=== PATIENT | male | born 1985 | race African-American/Black ===

== ENCOUNTER 2016-11-10 09:55 | Day surgery (SDC) | payer OTHER ==
[~2016-11-10] VITALS: Ht 177.8 cm; Wt 80.0 kg
[~2016-11-10 09:55] MED LIST: ALBU.5I NEB; ALBU0.08 NEB; APIX5TAB GT; BACL20TA GT; FAMO1TAB73 GT; FLEE5TAB GT; JEVILIQ12 GT; KEPP10002 GT; LEVS0.124 SL; LORA-392 GT; METO-309 PO; OXYC1TAB63 GT; POTA-163 GT; [UNRECOGNIZED DRUG - OTHER] G-TUBE
[2016-11-10] MEDS ORDERED: SODIUM CHLORIDE 0.9% 1000 ML IV SCH (10:00)
[2016-11-10 10:27] VITALS: BP 116/66; PULSE 45; RESP 16; TEMP 98.7; O2SAT 98
[2016-11-10] MEDS ORDERED: ceFAZolin 2 GM PREMIX 50 ML - gastrostomy and jejunostomy initial insertion IV SCH (10:30)
[2016-11-10] MEDS ORDERED: LORA-392 IM (10:38)
[2016-11-10] MEDS ORDERED: BISA10SU3 RECTAL (10:38)
--- NOTE | 2016-11-10 11:52 | PD.RAD ---
Post Procedure Progress Note Procedure Date: Nov 10, 2016 Supervising Radiologist: Lupillo Gardner Plan of Activity See PACS Report for procedural detail/treatment Feeding Tube Gastro/Jejunostomy Replacement Georgian: 22 Lupillo Gardner MD Nov 10, 2016 11:52
[2016-11-10 12:00] VITALS: BP 110/58; PULSE 55; RESP 16; TEMP 98.4; O2SAT 98
[2016-11-10 12:15] VITALS: BP 106/68; PULSE 50; RESP 18; O2SAT 97
[2016-11-10] MEDS ORDERED: IOHEXOL 350 MG/ML 50 ML BTL (for RAD DIAG) ONE (12:33)
[2016-11-10 12:40] VITALS: BP 103/57; PULSE 49; RESP 18; O2SAT 98
--- NOTE | 2016-11-10 13:53 | RADRPT ---
EXAM DATE/TIME: 11/10/2016 11:34 [facility] COMPARISON: CHANGE OF GJ-TUBE CATHETER, September 08, 2016, 12:33. INDICATIONS : Patient with history of an anoxic brain injury in need of gastrojejunostomy tube exchange. MEDICAL HISTORY : History of anoxic encephalopathy and brain injury, cardiac carrest, aspiration pneumonia, UTI, sepsis , LUE DVT. SURGICAL HISTORY : History of tracheostomy tube, transgastric feeding tube placement. ENCOUNTER: Subsequent ACUITY: >1 year PAIN SCORE: 0/10 FLUORO TIME: minutes CONTRAST: 30 cc Omnipaque (iohexol) 350 DEVICE(S): 1.) 22 Mauritian Transgastric tube PROCEDURE : 1. Fluoroscopically guided gastrojejunostomy tube exchange. 2. Conscious sedation with continuous EKG and oximetry monitoring. The risks, benefits and alternatives to the procedure were explained and verbal and written consent w as obtained. The site was prepped in sterile fashion. Full sterile technique was used, including ca p, mask, sterile gloves and gown and a large sterile sheet. Hand hygiene and 2% chlorhexidine and/or betadine/alcohol prep was utilized per protocol for cutaneous antisepsis. The skin and subcutaneous tissues were infiltrated with local anesthetic solution. With fluoroscopic guidance a guidewire was passed through the previous gastrojejunostomy tube and a f resh tube was placed over the guidewire. The balloon was inflated with appropriate volume of saline. Injection of positive contrast demonstrates good position of the gastric and jejunal lumens of the tube. Conscious sedation was performed with the prescribed dosages and duration as above. The patient leslie ated the procedure well and there were no complications. EKG and oximetry remained stable throughout the procedure. The patient was sent to post anesthesia recovery in stable condition. CONCLUSION: Uncomplicated gastrojejunostomy tube exchange as above. Lupillo Gardner MD on November 10, 2016 at 13:51 Board Certified Radiologist. This report was verified electronically.
== END 2016-11-10 12:45 | disposition short-term general hospital (02) ==
LOC: HRAD 09:55 → HRIP 10:09 → HRAD 12:45
PROVIDERS: ATTEND Family Medicine
DX: T85.518A Breakdown (mechanical) of other gastrointestinal prosthetic devices, implants and grafts, initial encounter (principal); Z87.820 Personal history of traumatic brain injury; Z86.718 Personal history of other venous thrombosis and embolism
CPT/HCPCS: 49452; C1769; C1874; C1887; Q9967

== ENCOUNTER 2017-11-30 08:07 | Inpatient (IN) | payer OTHER ==
[~2017-11-30] VITALS: Ht 157.5 cm; Wt 72.9 kg
[2017-11-30] VITALS (20 sets, daily range): BP systolic 119–198; BP diastolic 59–97; PULSE 84–176; RESP 8–38; TEMP 99–102.2; O2SAT 89–100
[~2017-11-30 08:07] MED LIST changes: +AMLO10 PO; +APIX5TAB PO; +ATRO1SOL11 SL; +BACL20TA G-TUBE; +BISA10SU3 RECTAL; +CLAR5SYP2 G-TUBE; +FAMO20TA2 PO; +FLEE5TAB PO; +HYDR-3801 PO; +HYOS1TAB9 PO; +IPRASOL INH; +KEPP10002 PO; +LEVS0.124 G-TUBE; -LEVS0.124 SL; +LORA-392 IM; +LORA-392 PO; +LORA-474 G-TUBE; +OXYC-392 PO; +PHEN125S PO; +POTA10SO12 PO; +RANI150T PO; +TYLE325T PO
[2017-11-30] MEDS ORDERED: VANCOMYCIN 1 GM/200 ML INJ 200 ML IV ONE (08:15)
[2017-11-30] MEDS ORDERED: SODIUM CHLOR 0.9% 1000 ML INJ 1,000 ML IV ONE ×2 (08:15)
[2017-11-30] MEDS ORDERED: PIPERACIL-TAZO 4.5 GM PREMIX 100 ML IV ONE (08:15)
[2017-11-30] MEDS ORDERED: ACETAMINOPHEN 650 MG SUPP RECTAL ONE (08:15)
--- NOTE | 2017-11-30 08:17 | PD ---
HPI Chief Complaint: tachycardia and diaphoresis fever Time Seen by Provider: 08:09 Travel History International Travel<30 days: No Contact w/Intl Traveler<30days: No History of Present Illness HPI Patient known to me from previous visit, 32-year-old male with a history of anoxic brain injury, a phasic at baseline, bedbound presents emergency Department with sudden onset of tachycardia tachypnea fever this morning. Noted to be significantly diaphoretic by EMS, he is trach and PEG dependent, according to EMS group home stated he was just fine last night. Ms. Bourne the hospital this morning, no decreased saturations. Further history is significantly limited given the patient's aphasia. PFSH Past Medical History Asthma: No Autoimmune Disease: No Anxiety: Yes Heart Rhythm Problems: No Cancer: No Cardiovascular Problems: Yes (Cardiac arrest) High Cholesterol: Yes Chemotherapy: No Chest Pain: No Congestive Heart Failure: No COPD: No Diabetes: No Diminished Hearing: No Endocrine: No Gastrointestinal Disorders: Yes (GASTROSTOMY, PSEUDOCYST OF PANCREAS) Genitourinary: No Hypertension: Yes Immune Disorder: No Implanted Vascular Access Dvce: No Musculoskeletal: Yes (Rigid upper and lower extremities) Neurologic: Yes (anoxic brain injury) Psychiatric: Yes (ANXIETY DISORDER) Reproductive: No Respiratory: Yes (trach) Immunizations Current: No Migraines: No Myocardial Infarction: Yes Pancreatitis: Yes Radiation Therapy: No Seizures: Yes Sleep Apnea: No Thyroid Disease: No Past Surgical History Abdominal Surgery: Yes (Peg Tube placement) Cardiac Surgery: No Ear Surgery: No Endocrine Surgery: No Eye Surgery: No Genitourinary Surgery: No Gynecologic Surgery: No Neurologic Surgery: No Oral Surgery: No Thoracic Surgery: Yes (trach ) Other Surgery: Yes (TRACHEOSTOMY) Social History Alcohol Use: No Tobacco Use: No Substance Use: No Allergies-Medications (Allergen,Severity, Reaction): Coded Allergies: *MDRO Multi-Drug Resistant Organism (Verified Adverse Reaction, Unknown, ) MRSA (sputum) - 04/25/16 & 05/23/16 MRSA PCR Screen POSITIVE - 04/25/2016 ESBL+E.Coli (blood-05/22/16) Reported Meds & Prescriptions Reported Meds & Active Scripts Active [Water, Free] 1 ML Flush 250 Ml G-TUBE Q6H Reported Norvasc (Amlodipine Besylate) 10 Mg Tab 10 Mg G-TUBE DAILY Hydralazine (Hydralazine HCl) 100 Mg Tab 50 Mg G-TUBE Q8HR Take with meals Claritin (Loratadine) 10 Mg Cap 10 Mg G-TUBE DAILY Phenytoin Liq (Phenytoin) 125 Mg/5 Ml Jessica 200 Mg PO Q12HR Pepcid (Famotidine) 20 Mg Tab 20 Mg G-TUBE BID Oxycodone (Oxycodone HCl) 5 Mg Cap 5 Mg PO Q6H PRN Ativan (Lorazepam) 0.5 Mg Tab 1 Mg IM Q6HR PRN Lopressor (Metoprolol Tartrate) 50 Mg Tab 50 Mg PO BID Albuterol Neb (Albuterol Sulfate) 2.5 Mg/0.5 Ml Neb 2.5 Mg NEB ONCE Note: The Albuterol Sulfate Inhalation Solution is concentrated and must be diluted. Read complete instructions carefully before using. Potassium Chloride ER (Potassium Chloride) 20 Meq Tab 20 Meq GT BID Levsin-SL (Hyoscyamine Sulfate) 0.125 Mg Subl 0.125 Mg G-TUBE BID Keppra (Levetiracetam) 1,000 Mg Tab 1,000 Mg GT BID Eliquis (Apixaban) 5 Mg Tab 5 Mg GT BID Baclofen 20 Mg Tab 20 Mg GT TID Review of Systems ROS Limitations: Altered Mental Status Physical Exam Exam Limitations: Altered Mental Status Narrative GENERAL: Well-developed well-nourished male with atrophy of both lower extremities, tonic contractures of bilateral upper extremities at times. A phasic at baseline. Has had some emesis in the emergency department. Nonbilious and nonbloody. He has a toxic appearance. SKIN: Focused skin assessment hot and extremely diaphoretic. HEAD: Atraumatic. Normocephalic. EYES: Pupils equal and round. No scleral icterus. No injection or drainage. ENT: No nasal bleeding or discharge. Mucous membranes pink and moist. Tracheostomy site clean dry and intact, NECK: Trachea midline. No JVD. CARDIOVASCULAR: Very tachycardic especially when lying flat, is better when the patient has had of bed elevated. No murmur appreciated. RESPIRATORY: Tachypneic, bibasilar rales and rhonchi but difficult auscultation secondary to radiation of upper airway sounds. GASTROINTESTINAL: Abdomen soft, non-tender, nondistended. Hepatic and splenic margins not palpable. G-tube in place with no bleeding. MUSCULOSKELETAL: No obvious deformities. No clubbing. No cyanosis. No edema. NEUROLOGICAL: Awake, a phasic, does not follow commands eyes are open at baseline. Data Data Last Documented VS Vital Signs Date Time Temp Pulse Resp B/P (MAP) Pulse Ox O2 Delivery O2 Flow Rate FiO2 11/30/17 10:33 100.4 121 28 151/67 (95) 99 T-piece 10.00 50 Orders Orders Sepsis Workup Initiated (11/30/17 ) Electrocardiogram (11/30/17 08:09) Complete Blood Count With Diff (11/30/17 08:09) Comprehensive Metabolic Panel (11/30/17 08:09) Prothrombin Time / Inr (Pt) (11/30/17 08:09) Act Partial Throm Time (Ptt) (11/30/17 08:09) Lactic Acid Sepsis Protocol (11/30/17 08:09) Magnesium (Mg) (11/30/17 08:09) Phosphorus (Po4) (11/30/17 08:09) Lipase (11/30/17 08:09) Ckmb (Isoenzyme) Profile (11/30/17 08:09) Troponin I (11/30/17 08:09) Urinalysis - C+S If Indicated (11/30/17 08:09) Blood Culture (11/30/17 08:09) Chest, Single Ap (11/30/17 08:09) Blood Glucose (11/30/17 08:09) Ecg Monitoring (11/30/17 08:09) Iv Access Insert/Monitor (11/30/17 08:09) Oximetry (11/30/17 08:09) Oxygen Administration (11/30/17 08:09) Acetaminophen Supp (Tylenol Supp) (11/30/17 08:15) Sodium Chlor 0.9% 1000 Ml Inj (Ns 1000 M (11/30/17 08:15) Sodium Chlor 0.9% 1000 Ml Inj (Ns 1000 M (11/30/17 08:15) Vancomycin Inj (Vancomycin Inj) (11/30/17 08:15) Piperacil-Tazo 4.5 Gm Premix (Zosyn 4.5 (11/30/17 08:15) Insert Temp Sensing Tello Cath (11/30/17 08:11) Resp Blood Gas Venous (11/30/17 ) Blood Gas Venous (Vbg) (11/30/17 08:47) CKMB (11/30/17 08:21) CKMB% (11/30/17 08:21) Insert Temp Sensing Tello Cath (11/30/17 09:24) Urinary Catheter Management BAILEY.Q8H (11/30/17 09:24) Ibuprofen Liq (Motrin Liq) (11/30/17 10:15) Ondansetron Inj (Zofran Inj) (11/30/17 10:15) Thyroid Stimulating Hormone (11/30/17 10:18) Admit Order (Ed Use Only) (11/30/17 ) Labs Laboratory Tests Test 11/30/17 08:21 11/30/17 08:47 11/30/17 10:00 White Blood Count 13.9 TH/MM3 Red Blood Count 5.44 MIL/MM3 Hemoglobin 16.9 GM/DL Hematocrit 50.3 % Mean Corpuscular Volume 92.4 FL Mean Corpuscular Hemoglobin 31.0 PG Mean Corpuscular Hemoglobin Concent 33.6 % Red Cell Distribution Width 14.3 % Platelet Count 406 TH/MM3 Mean Platelet Volume 8.5 FL Neutrophils (%) (Auto) 68.1 % Lymphocytes (%) (Auto) 22.8 % Monocytes (%) (Auto) 8.5 % Eosinophils (%) (Auto) 0.2 % Basophils (%) (Auto) 0.4 % Neutrophils # (Auto) 9.4 TH/MM3 Lymphocytes # (Auto) 3.2 TH/MM3 Monocytes # (Auto) 1.2 TH/MM3 Eosinophils # (Auto) 0.0 TH/MM3 Basophils # (Auto) 0.1 TH/MM3 CBC Comment DIFF FINAL Differential Comment Prothrombin Time 10.8 SEC Prothromb Time International Ratio 1.1 RATIO Activated Partial Thromboplast Time 20.9 SEC Blood Urea Nitrogen 14 MG/DL Creatinine 1.37 MG/DL Random Glucose 176 MG/DL Total Protein 9.1 GM/DL Albumin 4.2 GM/DL Calcium Level 9.8 MG/DL Phosphorus Level 3.2 MG/DL Magnesium Level 2.4 MG/DL Alkaline Phosphatase 174 U/L Aspartate Amino Transf (AST/SGOT) 38 U/L Alanine Aminotransferase (ALT/SGPT) 58 U/L Total Bilirubin 0.3 MG/DL Sodium Level 137 MEQ/L Potassium Level 5.1 MEQ/L Chloride Level 101 MEQ/L Carbon Dioxide Level 24.9 MEQ/L Anion Gap 11 MEQ/L Estimat Glomerular Filtration Rate 74 ML/MIN Lactic Acid Level 10.6 mmol/L Total Creatine Kinase 296 U/L Creatine Kinase MB 4.3 NG/ML Troponin I LESS THAN 0.02 NG/ML Lipase 133 U/L Thyroid Stimulating Hormone 3rd Gen 2.350 uIU/ML Blood Gas Puncture Site LINE Blood Gas Patient Temperature 98.6 Venous Blood pH 7.34 Venous Blood Partial Pressure CO2 39 mmHg Venous Blood Partial Pressure O2 35 mmHg Venous Blood HCO3 21 mmol/L Venous Blood Oxygen Saturation 61 % Venous Blood Oxygen Content 14.7 Vol % Venous Blood Base Excess -4.0 mmol/L Oxygen Delivery Device T-PIECE Blood Gas Inspired Oxygen 50 % Urine Color YELLOW Urine Turbidity HAZY Urine pH 6.0 Urine Specific Hamer 1.032 Urine Protein 30 mg/dL Urine Glucose (UA) NEG mg/dL Urine Ketones 10 mg/dL Urine Occult Blood NEG Urine Nitrite NEG Urine Bilirubin NEG Urine Urobilinogen 2.0 MG/DL Urine Leukocyte Esterase NEG Urine RBC LESS THAN 1 /hpf Urine WBC 4 /hpf Urine Squamous Epithelial Cells <1 /hpf Urine Mucus FEW /lpf Microscopic Urinalysis Comment CATH-CULT NOT IND MDM Medical Decision Making Medical Screen Exam Complete: Yes Emergency Medical Condition: Yes Differential Diagnosis Sirs, sepsis, pneumonia, UTI, autonomic dysfunction Narrative Course Patient roomed in the ER, has no cause of fever isolated, may be autonomic dysregulation. Treated as septic, vanc and zosyn. 3L NS bolus. Significant only elevated lactic acid. Central line. Discussed with mother by telephone she is grateful and agreeable for admission. Discussed with Dr. Maya for admission. Overall improving significantly after fluid resuscitation. Critical Care Narrative Aggregate critical care time was 35 minutes. Time to perform other separately billable procedures was not included in the critical care time. My time did not include minutes spent treating any other patients simultaneously or on activities that did not directly contribute to the patient's treatment. The services I provided to this patient were to treat and/or prevent clinically significant deterioration that could result in: [, disability, organ failure I provided critical care services requiring my management, as noted below: Chart data review, documentation time, medication orders and management, vital sign assessments/reviewing monitor data, ordering and reviewing lab tests, ordering and interpreting/reviewing x-rays and diagnostic studies, care of the patient and discussion of the patient with the admitting physicians. Diagnosis Primary Impression: SIRS (systemic inflammatory response syndrome) Additional Impression: Lactic acidosis Admitting Information Admitting Physician Requests: Admit Condition: Serious Yuri Howe MD Nov 30, 2017 08:17
[2017-11-30 09:04] LABS: AUTOMATED NEUTROPHIL # 9.4 TH/MM3 (1.8-7.7); BASOPHIL # 0.1 TH/MM3 (0-0.2); BASOPHIL % 0.4 % (0.0-2.0); EOSINOPHIL % 0.2 % (0.0-4.0); HEMATOCRIT 50.3 % (39.0-51.0); HEMOGLOBIN 16.9 GM/DL (13.0-17.0); LYMPH % 22.8 % (9.0-44.0); LYMPHOCYTE # 3.2 TH/MM3 (1.0-4.8); MEAN CELL VOLUME 92.4 FL (80.0-100.0); MEAN CORPUSCULAR HGB CONC 33.6 % (32.0-36.0); MEAN PLATELET VOLUME 8.5 FL (7.0-11.0); MONO % 8.5 % (0.0-8.0); MONOCYTE # 1.2 TH/MM3 (0-0.9); NEUT % 68.1 % (16.0-70.0); PLATELET COUNT 406 TH/MM3 (150-450); RED BLOOD COUNT 5.44 MIL/MM3 (4.50-5.90); RED CELL DISTRIBUTION WIDTH 14.3 % (11.6-17.2); WHITE BLOOD COUNT 13.9 TH/MM3 (4.0-11.0)
[2017-11-30 09:05] LABS: INTERNATIONAL NORMALIZED RATIO 1.1 RATIO; PROTHROMBIN TIME - PATIENT 10.8 SEC (9.8-11.6)
[2017-11-30 09:23] LABS: ALBUMIN 4.2 GM/DL (3.4-5.0); ALKALINE PHOSPHATASE 174 U/L (45-117); ALT (GPT) 58 U/L (12-78); AST (GOT) 38 U/L (15-37); BICARBONATE 24.9 MEQ/L (21.0-32.0); BLOOD UREA NITROGEN 14 MG/DL (7-18); CALCIUM 9.8 MG/DL (8.5-10.1); CHLORIDE 101 MEQ/L (98-107); CREATININE 1.37 MG/DL (0.60-1.30); GLOMERULAR FILTRATION RATE 74 ML/MIN (>89); GLUCOSE,RANDOM 176 MG/DL (74-106); MAGNESIUM 2.4 MG/DL (1.5-2.5); PHOSPHORUS 3.2 MG/DL (2.5-4.9); SODIUM (NA) 137 MEQ/L (136-145); TOTAL BILIRUBIN ADULT 0.3 MG/DL (0.2-1.0); TROPONIN I LESS THAN 0.02 NG/ML (0.02-0.05)
--- NOTE | 2017-11-30 09:24 | RADRPT ---
EXAM DATE/TIME: 11/30/2017 09:11 [facility] COMPARISON: CHEST SINGLE AP, October 15, 2016, 23:33. INDICATIONS : Fever, short of breath. MEDICAL HISTORY : Myocardial infarction. Hypercholesterolemia. Hypertension. anoxic brain injury, seizures, pancrea titis, MRSA, Anxiety disorder SURGICAL HISTORY : tracheostomy, Gastrstomy, peg tube placement ENCOUNTER: Initial ACUITY: 1 day PAIN SCORE: 0/10 LOCATION: Bilateral chest FINDINGS: A single view of the chest demonstrates the lungs to be symmetrically aerated without evidence of mas s, infiltrate or effusion. The tracheostomy tube remains in place. The cardiomediastinal contours are unremarkable. Osseous structures are intact. CONCLUSION: No acute disease. There is no evidence of pneumonia. Kartik Anderson MD on November 30, 2017 at 9:21 Board Certified Radiologist. This report was verified electronically.
[2017-11-30 09:26] LABS: LACTIC ACID SEPSIS PROTOCOL 10.6 mmol/L (0.4-2.0)
[2017-11-30 09:32] LABS: TOTAL PROTEIN 9.1 GM/DL (6.4-8.2)
[2017-11-30] MEDS ORDERED: FAMO1TAB37 G-TUBE (09:42)
[2017-11-30] MEDS ORDERED: HYDR-3801 G-TUBE (09:42)
[2017-11-30] MEDS ORDERED: PHEN125S PO (09:42)
[2017-11-30] MEDS ORDERED: OXYC1CAP PO (09:42)
[2017-11-30] MEDS ORDERED: CLAR10CA3 G-TUBE (09:42)
[2017-11-30] MEDS ORDERED: AMLO10 G-TUBE (09:42)
[2017-11-30] MEDS ORDERED: ONDANSETRON HCL 4 MG/2 ML VIAL IV PUSH ONE (10:15)
[2017-11-30] MEDS ORDERED: IBUPROFEN SUSP 100 MG/5 ML UDC NG ONE (10:15)
[2017-11-30 10:47] LABS: BILIRUBIN, URINE NEG (NEG); BLOOD, URINE NEG (NEG); GLUCOSE,URINE NEG (NEG); KETONE, URINE 10 mg/dL (NEG); MUCUS URINE FEW /lpf (OCC); NITRITE,URINE NEG (NEG); SQUAMOUS EPITHELIAL CELL URINE <1 /hpf (0-5); URINE COLOR YELLOW (YELLW/STRAW); URINE LEUKOCYTE ESTERASE NEG (NEG)
[2017-11-30] MEDS: SODIUM CHLOR 0.9% 1000 ML INJ 1,000 ML IV SCH (11:14)
[2017-11-30] MEDS ORDERED: LACTULOSE SYRUP 20 GM/30 ML CUP PO PRN (11:15)
[2017-11-30] MEDS ORDERED: ONDANSETRON HCL 4 MG/2 ML VIAL IV PUSH PRN (11:15)
[2017-11-30] MEDS ORDERED: SENNOSIDES 8.6 MG TAB PO PRN (11:15)
[2017-11-30] MEDS ORDERED: BISACODYL 10 MG SUPP RECTAL PRN (11:15)
[2017-11-30] MEDS ORDERED: CHLORHEXIDINE GLUCONATE 2 % 1 PACK (2 CLOTHS) TOP PRN (11:15)
[2017-11-30] MEDS ORDERED: MISCELLANEOUS NURSING INFORMATION XX SCH (11:15)
[2017-11-30] MEDS ORDERED: MAGNESIUM HYDROXIDE SUSP 30 ML CUP PO PRN (11:15)
[2017-11-30] MEDS ORDERED: DEXTROSE 50% IN WATER 50 ML VIAL(D50) IV PUSH PRN (11:30)
[2017-11-30] MEDS ORDERED: Vancomycin Consult Pharmacy 1 EA OTHER SCH (11:30)
[2017-11-30] MEDS ORDERED: GLUCAGON 1 MG/ML VIAL OTHER PRN (11:30)
--- NOTE | 2017-11-30 11:37 | HHI.HP ---
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 (11) Hyperlipidemia Diagnosis: Secondary Chief Complaint: Presents from [facility] with tachycardia, pyrexia and altered mental status Travel History International Travel<30 Days: No Contact w/Intl Traveler <30 Da: No Traveled to Known Affected Are: No Sepsis Criteria SIRS Criteria (2 or more): Heart rate over 90, WBC > 75146, < 4000 or > 10% bands Sepsis Criteria (SIRS+source): Infect source susp/known Severe Sepsis (+one): Lactate >2 Septic Shock Criteria: Lactic acid >=4 Criteria Outcome: Meets septic shock criteria History of Present Illness This is a 32-year-old AA male. Date of admission 11/30/2017. 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 He has known seizure disorder on phenytoin and levetiracetam. Patient presents from [facility] with onset of pyrexia, tachycardia and change in mental status. Patient is to show preservation 103 with a heart rate in the 190s. Patient received 3 L normal saline bolus was started on vancomycin and piperacillin/tazobactam central was placed in the right femoral region secondary to poor prophylaxis. He also received acetaminophen. His fevers abated. Heart rate currently 120s. Review of Systems ROS Limitations: Clinical Condition, Other Past Family Social History Allergies: Coded Allergies: *MDRO Multi-Drug Resistant Organism (Verified Adverse Reaction, Unknown, ) MRSA (sputum) - 04/25/16 & 05/23/16 MRSA PCR Screen POSITIVE - 04/25/2016 ESBL+E.Coli (blood-05/22/16) Past Medical History Left upper extremity DVT Apixaban use/chronic Anoxic brain injury Seizure disorder NOS Hypertension Dyslipidemia Diabetes mellitus History of pancreatitis Muscle spasticity Gastroesophageal reflux disease Past Surgical History Status post trach and PEG Reported Medications Norvasc (Amlodipine Besylate) 10 Mg Tab 10 Mg G-TUBE DAILY Hydralazine (Hydralazine HCl) 100 Mg Tab 50 Mg G-TUBE Q8HR Take with meals Claritin (Loratadine) 10 Mg Cap 10 Mg G-TUBE DAILY Phenytoin Liq (Phenytoin) 125 Mg/5 Ml Jessica 200 Mg PO Q12HR Pepcid (Famotidine) 20 Mg Tab 20 Mg G-TUBE BID Oxycodone (Oxycodone HCl) 5 Mg Cap 5 Mg PO Q6H PRN Ativan (Lorazepam) 0.5 Mg Tab 1 Mg IM Q6HR PRN Lopressor (Metoprolol Tartrate) 50 Mg Tab 50 Mg PO BID Albuterol Neb (Albuterol Sulfate) 2.5 Mg/0.5 Ml Neb 2.5 Mg NEB ONCE Note: The Albuterol Sulfate Inhalation Solution is concentrated and must be diluted. Read complete instructions carefully before using. Potassium Chloride ER (Potassium Chloride) 20 Meq Tab 20 Meq GT BID Levsin-SL (Hyoscyamine Sulfate) 0.125 Mg Subl 0.125 Mg G-TUBE BID Keppra (Levetiracetam) 1,000 Mg Tab 1,000 Mg GT BID Eliquis (Apixaban) 5 Mg Tab 5 Mg GT BID Baclofen 20 Mg Tab 20 Mg GT TID Active Ordered Medications Reviewed in EMR Family History Mother with hypertension and diabetes mellitus. Father with myocardial infarction hypertension Social History No prior tobacco, alcohol or IV drug use/illicit drug use according to mother's prior documentation Physical Exam Vital Signs Vital Signs Date Time Temp Pulse Resp B/P (MAP) Pulse Ox O2 Delivery O2 Flow Rate FiO2 11/30/17 11:06 100.0 108 24 133/68 (89) 99 T-piece 10.00 50 11/30/17 10:33 100.4 121 28 151/67 (95) 99 T-piece 10.00 50 11/30/17 09:31 101.6 135 28 138/66 (90) 96 T-piece 10.00 50 11/30/17 09:18 102.0 148 32 159/68 (98) 96 T-piece 10.00 50 11/30/17 08:55 100.6 172 36 168/68 (101) 99 Trach Collar 10.00 11/30/17 08:48 100.8 163 36 198/97 (130) 96 Trach Collar 10.00 1/29/18 08:10 96 T-piece 10.00 50 11/30/17 08:10 101.0 36 96 Trach Collar 10.00 50 11/30/17 08:10 96 T-piece 10.00 50 11/30/17 08:10 178 38 96 T-piece 10.00 50 11/30/17 08:09 102.2 176 38 187/86 (119) 89 Physical Exam GENERAL: 32-year-old AA male currently on T piece in no acute distress SKIN: Warm and dry. No rash HEAD: Atraumatic. Normocephalic. EYES: Pupils equal and round about 3 mm bilaterally and reactive. No scleral icterus. No injection or drainage. ENT: No nasal bleeding or discharge. Mucous membranes pink and moist. NECK: Trachea midline. No JVD. Tracheostomy is clean dry and intact CARDIOVASCULAR: Tachycardic, RR. S1, S2 no S4. Without murmur RESPIRATORY: Clear to auscultation. Breath sounds equal bilaterally. GASTROINTESTINAL: Abdomen soft, non-tender, nondistended. GJ tube site is clean dry and intact MUSCULOSKELETAL: Extremities without edema. Contracted bilateral upper extremities.. NEUROLOGICAL: Status post tracheostomy. Positive gag. Positive corneal reflex. Withdraws to pain. Laboratory Laboratory Tests Test 11/30/17 08:21 11/30/17 08:47 11/30/17 10:00 White Blood Count 13.9 Red Blood Count 5.44 Hemoglobin 16.9 Hematocrit 50.3 Mean Corpuscular Volume 92.4 Mean Corpuscular Hemoglobin 31.0 Mean Corpuscular Hemoglobin Concent 33.6 Red Cell Distribution Width 14.3 Platelet Count 406 Mean Platelet Volume 8.5 Neutrophils (%) (Auto) 68.1 Lymphocytes (%) (Auto) 22.8 Monocytes (%) (Auto) 8.5 Eosinophils (%) (Auto) 0.2 Basophils (%) (Auto) 0.4 Neutrophils # (Auto) 9.4 Lymphocytes # (Auto) 3.2 Monocytes # (Auto) 1.2 Eosinophils # (Auto) 0.0 Basophils # (Auto) 0.1 CBC Comment DIFF FINAL Differential Comment Prothrombin Time 10.8 Prothromb Time International Ratio 1.1 Activated Partial Thromboplast Time 20.9 Blood Urea Nitrogen 14 Creatinine 1.37 Random Glucose 176 Total Protein 9.1 Albumin 4.2 Calcium Level 9.8 Phosphorus Level 3.2 Magnesium Level 2.4 Alkaline Phosphatase 174 Aspartate Amino Transf (AST/SGOT) 38 Alanine Aminotransferase (ALT/SGPT) 58 Total Bilirubin 0.3 Sodium Level 137 Potassium Level 5.1 Chloride Level 101 Carbon Dioxide Level 24.9 Anion Gap 11 Estimat Glomerular Filtration Rate 74 Lactic Acid Level 10.6 Total Creatine Kinase 296 Creatine Kinase MB 4.3 Troponin I LESS THAN 0.02 Lipase 133 Blood Gas Puncture Site LINE Blood Gas Patient Temperature 98.6 Venous Blood pH 7.34 Venous Blood Partial Pressure CO2 39 Venous Blood Partial Pressure O2 35 Venous Blood HCO3 21 Venous Blood Oxygen Saturation 61 Venous Blood Oxygen Content 14.7 Venous Blood Base Excess -4.0 Oxygen Delivery Device T-PIECE Blood Gas Inspired Oxygen 50 Urine Color YELLOW Urine Turbidity HAZY Urine pH 6.0 Urine Specific [place] 1.032 Urine Protein 30 Urine Glucose (UA) NEG Urine Ketones 10 Urine Occult Blood NEG Urine Nitrite NEG Urine Bilirubin NEG Urine Urobilinogen 2.0 Urine Leukocyte Esterase NEG Urine RBC LESS THAN 1 Urine WBC 4 Urine Squamous Epithelial Cells <1 Urine Mucus FEW Microscopic Urinalysis Comment CATH-CULT NOT IND Date/Time Source Procedure Growth Status 11/30/17 08:21 Blood Peripheral Aerobic Blood Culture Pending Received 11/30/17 08:21 Blood Peripheral Anaerobic Blood Culture Pending Received Result Diagram: 11/30/17 0821 11/30/17 0821 Imaging Last Impressions Chest X-Ray 11/30/17 0809 Signed Impressions: Service Date/Time: Thursday, November 30, 2017 09:11 - CONCLUSION: No acute disease. There is no evidence of pneumonia. Kartik Anderson MD Septic Shock Reassessment Septic shock perfusion: reassessment completed Caprini VTE Risk Assessment Caprini VTE Risk Assessment: Mod/High Risk (score >= 2) Caprini Risk Assessment Model Point Value = 1 Point Value = 2 Point Value = 3 Point Value = 5 Age 41-60 Minor surgery BMI > 25 kg/m2 Swollen legs Varicose veins or History of unexplained or recurrent spontaneous Oral contraceptives or hormone replacement Sepsis (< 1 month) Serious lung disease, including pneumonia (< 1 month) Abnormal pulmonary function Acute myocardial infarction Congestive heart failure (< 1 month) History of inflammatory bowel disease Medical patient at bed rest Age 61-74 Arthroscopic surgery Major open surgery (> 45 min) Laparoscopic surgery (> 45 min) Malignancy Confined to bed (> 72 hours) Immobilizing plaster cast Central venous access Age >= 75 History of VTE Family history of VTE Factor V Leiden Prothrombin [id number] Lupus anticoagulant Anticardiolipin antibodies Elevated serum homocysteine Heparin-induced thrombocytopenia Other congenital or acquired thrombophilia Stroke (< 1 month) Elective arthroplasty Hip, pelvis, or leg fracture Acute spinal cord injury (< 1 month) Prophylaxis Regimen Total Risk Factor Score Risk Level Prophylaxis Regimen 0-1 Low Early ambulation 2 Moderate Order ONE of the following: *Sequential Compression Device (SCD) *Heparin 5000 units SQ BID 3-4 Higher Order ONE of the following medications: *Heparin 5000 units SQ TID *Enoxaparin/Lovenox 40 mg SQ daily (WT < 150 kg, CrCl > 30 mL/min) *Enoxaparin/Lovenox 30 mg SQ daily (WT < 150 kg, CrCl > 10-29 mL/min) *Enoxaparin/Lovenox 30 mg SQ BID (WT < 150 kg, CrCl > 30 mL/min) AND/OR *Sequential Compression Device (SCD) 5 or more Highest Order ONE of the following medications: *Heparin 5000 units SQ TID (Preferred with Epidurals) *Enoxaparin/Lovenox 40 mg SQ daily (WT < 150 kg, CrCl > 30 mL/min) *Enoxaparin/Lovenox 30 mg SQ daily (WT < 150 kg, CrCl > 10-29 mL/min) *Enoxaparin/Lovenox 30 mg SQ BID (WT < 150 kg, CrCl > 30 mL/min) AND *Sequential Compression Device (SCD) Assessment and Plan Assessment and Plan Neuro/Psych: Anoxic brain injury Seizure disorder NOS Continue levetiracetam 1000 mg twice a day and phenytoin 20 mg twice a day Check phenytoin level in a.m. Acetaminophen 650 mg by G-tube every 6 hours when necessary fever Oxycodone 5 mill grams every 6 hours. Rectal pain/home medication Baclofen 20 mg 3 times a day muscle spasticity Seizure precautions CV: Sinus tachycardia Essential hypertension History of dyslipidemia Lactic acidosis Continue home medications of amlodipine 10 mg daily, metoprolol succinate 50 mill grams twice a day and hydralazine 50 mg every 8 hours Currently normal saline at 100 cc an hour Troponin less than 0.02 admission Lactate 10.2 admission. Serial lactates every 6 hours until clear. Received 3 L normal saline in ED. Resp: Chronic respiratory failure Currently on TPs maintain saturations greater than equal to 90%. Wean to trach collar as tolerated Chest x-ray and admission revealed no acute findings Albuterol/ipratropium aerosols every 6 hours with albuterol aerosols every 2 hours. Dyspnea GI: Gastroesophageal reflux disease Elevated AST Vital 1.5 goal 90 cc an hour per J-tube Lansoprazole 30 mg daily for GI prophylaxis. On famotidine 20 twice a day and ranitidine [facility] Docusate sodium/senna 1 tablet twice a day for bowel regimen : Tello catheter if indicated for accurate I's and O's in a critically ill patient Endo: Diabetes mellitus History of pancreatitis Sliding-scale insulin with Novulin R median protocol Accu 6 every 6 hours to maintain euglycemia Renal: Acute kidney injury Aggressive hydration. Monitor urine output Accurate I's and O's Repeat BMP in a.m. Likely prerenal Heme: Leukocytosis Chronic Apixaban use Resumed apixaban 5 mg twice a day Monitor CBC daily. Follow trends ID: Blood cultures 2, UA, sputum are pending Urine Legionella, pneumococcal and influenza all ordered Piperacillin/tazobactam and vancomycin day #1 FEN: Replace electrolytes as clinically indicated Holding home dose of potassium chloride 20 mEq twice a day with potassium of 5.1 MSK: Muscle contractions PT/OT evaluate and treat Access - Right femoral central line placed 11/30 by ED physician Prophylaxis - GI - lansoprazole - DVT - SCD/ Apixaban Level III H&P Code Status Full code Discussed Condition With Dr. Howe. Care plan discussed and all questions answered. Problem Qualifiers (1) Pyrexia: Qualified Codes: R50.9 - Fever, unspecified (2) Leukocytosis: Qualified Codes: D72.829 - Elevated white blood cell count, unspecified (3) Hyperlipidemia: Qualified Codes: E78.5 - Hyperlipidemia, unspecified Teddy Maya MD Nov 30, 2017 11:37
[2017-11-30] MEDS ORDERED: MAGNESIUM SULFATE INJ 2 GM in SODIUM CHLORIDE 0.9% INJ 96 ML IV PRN (12:00)
[2017-11-30] MEDS ORDERED: MAGNESIUM SULFATE INJ 4 GM in SODIUM CHLORIDE 0.9% INJ 92 ML IV PRN (12:00)
[2017-11-30] MEDS ORDERED: POTASSIUM CHLOR 20 MEQ PREMIX 100 ML IV PRN ×2 (12:00)
[2017-11-30] MEDS ORDERED: POTASSIUM CHLOR 40 MEQ PREMIX 100 ML IV PRN ×2 (12:00)
[2017-11-30] MEDS ORDERED: POTASSIUM PHOSPHATE MONOBASIC 500 MG TAB PO/TUBE PRN (12:00)
[2017-11-30] MEDS ORDERED: SODIUM PHOSPHATE INJ 30 MMOL in SODIUM CHLOR 0.9% 250 ML INJ 240 ML IV PRN (12:00)
[2017-11-30] MEDS ORDERED: MAGNESIUM OXIDE 400 MG TAB PO PRN (12:00)
[2017-11-30] MEDS ORDERED: POTASSIUM PHOSPHATE INJ 30 MMOL in SODIUM CHLOR 0.9% 250 ML INJ 250 ML IV PRN (12:00)
[2017-11-30] MEDS ORDERED: POTASSIUM CHLORIDE 25 MEQ EFFERVESCENT TAB PO PRN (12:00)
[2017-11-30] MEDS: INSULIN NovoLIN REGULAR SUPPLEMENTAL SCALE SQ SCH ×2 (12:00→17:51)
[2017-11-30] MEDS ORDERED: POTASSIUM PHOSPHATE MONOBASIC 500 MG TAB PO PRN (12:00)
[2017-11-30] MEDS: FREE WATER G-TUBE SCH ×2 (12:19→17:51)
[2017-11-30] MEDS: ACETAMINOPHEN 650 MG/20.3 ML UDC G-TUBE PRN (12:55)
[2017-11-30] MEDS: ARTIFICIAL TEARS OPTH SOLN 15 ML BTL EACH EYE SCH ×2 (13:00→17:51)
[2017-11-30] MEDS: hydrALAZINE HCL 50 MG TAB G-TUBE SCH ×2 (14:00→20:14)
[2017-11-30] MEDS: BACLOFEN 20 MG TAB G-TUBE SCH ×2 (14:00→17:51)
[2017-11-30] MEDS: PIPERACIL-TAZO 4.5 GM PREMIX 100 ML IV SCH ×2 (14:00→20:15)
[2017-11-30] MEDS ORDERED: MORPHINE SULFATE 2 MG/ML INJ IV PUSH ONE (14:15)
[2017-11-30] MEDS ORDERED: SODIUM CHLOR 0.45% 1000 ML INJ 1,000 ML IV ONE (14:30)
[2017-11-30] MEDS: cloNIDine HCL 0.1 MG TAB PO SCH ×2 (14:30→20:14)
[2017-11-30] MEDS ORDERED: ORPHENADRINE INJ 60 MG/2 ML AMP IM ONE (15:30)
[2017-11-30] MEDS: RESP: ALBUTEROL 2.5 MG/IPRATROPIUM 0.5 MG NEB (SCH) INH ×2 (16:10→20:23)
--- NOTE | 2017-11-30 18:08 | EKG ---
Date Performed: 11/30/2017 Time Performed: 09:08:04 PTAGE: 32 years EKG: SUPRAVENTRICULAR TACHYCARDIA ABNORMAL ECG PREVIOUS TRACING : 07/31/2016 20.54 DOCTOR: Daniel Josue Interpretating Date/Time 11/30/2017 18:07:04
[2017-11-30] MEDS: DOCUSATE SODIUM 50 MG/SENNA 8.6 MG TAB PO SCH (20:14)
[2017-11-30] MEDS: APIXABAN 5 MG TABLET G-TUBE SCH (20:14)
[2017-11-30] MEDS: METOPROLOL TARTRATE 50 MG TAB PO SCH (20:14)
[2017-11-30] MEDS: levETIRAcetam 500 MG/5 ML UDC G-TUBE SCH (20:14)
[2017-11-30] MEDS: SODIUM CHLORIDE 0.9% FLUSH 10 ML FLUSH IV FLUSH SCH (20:15)
[2017-11-30] MEDS: PHENYTOIN SUSP 100 MG/4 ML CUP PO SCH (20:40)
[2017-11-30] MEDS: HYOSCYAMINE SOLN 0.125 MG/ML 15 ML BTL G-TUBE SCH (21:18)
[2017-12-01] VITALS (15 sets, daily range): BP systolic 89–158; BP diastolic 50–113; PULSE 66–99; RESP 4–28; TEMP 98.2–99.6; O2SAT 96–100
[2017-12-01] MEDS: SODIUM CHLOR 0.9% 1000 ML INJ 1,000 ML IV SCH ×2 (00:06→14:43)
[2017-12-01] MEDS: PIPERACIL-TAZO 4.5 GM PREMIX 100 ML IV SCH ×4 (00:13→19:47)
[2017-12-01 02:13] LABS: PHENYTOIN (DILANTIN) 6.4 MCG/ML (10.0-20.0); VANCOMYCIN TROUGH 2.5 MCG/ML (5.0-10.0)
[2017-12-01] MEDS ORDERED: VANCOMYCIN 1 GM/200 ML PREMIX IV SCH (03:00)
[2017-12-01] MEDS: CHLORHEXIDINE GLUCONATE 2 % 1 PACK (2 CLOTHS) TOP SCH (03:20)
[2017-12-01] MEDS: RESP: ALBUTEROL 2.5 MG/IPRATROPIUM 0.5 MG NEB (SCH) INH ×4 (04:32→21:25)
[2017-12-01] MEDS: cloNIDine HCL 0.1 MG TAB PO SCH ×3 (04:35→20:02)
[2017-12-01] MEDS: FREE WATER G-TUBE SCH ×4 (04:35→18:00)
[2017-12-01] MEDS: hydrALAZINE HCL 50 MG TAB G-TUBE SCH ×3 (04:35→20:02)
[2017-12-01 05:13] LABS: AUTOMATED NEUTROPHIL # 5.8 TH/MM3 (1.8-7.7); BASOPHIL % 0.2 % (0.0-2.0); EOSINOPHIL # 0.1 TH/MM3 (0-0.4); EOSINOPHIL % 0.7 % (0.0-4.0); HEMATOCRIT 35.1 % (39.0-51.0); HEMOGLOBIN 12.1 GM/DL (13.0-17.0); LYMPH % 17.3 % (9.0-44.0); LYMPHOCYTE # 1.4 TH/MM3 (1.0-4.8); MEAN CELL VOLUME 89.9 FL (80.0-100.0); MEAN CORPUSCULAR HEMOGLOBIN 30.9 PG (27.0-34.0); MEAN CORPUSCULAR HGB CONC 34.4 % (32.0-36.0); MEAN PLATELET VOLUME 8.6 FL (7.0-11.0); MONOCYTE # 0.8 TH/MM3 (0-0.9); NEUT % 71.8 % (16.0-70.0); PLATELET COUNT 176 TH/MM3 (150-450); RED BLOOD COUNT 3.91 MIL/MM3 (4.50-5.90); RED CELL DISTRIBUTION WIDTH 14.3 % (11.6-17.2)
[2017-12-01 05:20] LABS: INTERNATIONAL NORMALIZED RATIO 1.2 RATIO; PROTHROMBIN TIME - PATIENT 11.8 SEC (9.8-11.6)
[2017-12-01 05:49] LABS: ALBUMIN 2.9 GM/DL (3.4-5.0); ALKALINE PHOSPHATASE 114 U/L (45-117); ALT (GPT) 40 U/L (12-78); AST (GOT) 37 U/L (15-37); BICARBONATE 26.9 MEQ/L (21.0-32.0); BLOOD UREA NITROGEN 8 MG/DL (7-18); CALCIUM 8.3 MG/DL (8.5-10.1); CHLORIDE 107 MEQ/L (98-107); CREATININE 0.77 MG/DL (0.60-1.30); GLOMERULAR FILTRATION RATE 144 ML/MIN (>89); GLUCOSE,RANDOM 117 MG/DL (74-106); MAGNESIUM 2.1 MG/DL (1.5-2.5); PHOSPHORUS 2.3 MG/DL (2.5-4.9); SODIUM (NA) 141 MEQ/L (136-145); TOTAL BILIRUBIN ADULT 0.2 MG/DL (0.2-1.0); TOTAL PROTEIN 6.4 GM/DL (6.4-8.2)
[2017-12-01] MEDS: INSULIN NovoLIN REGULAR SUPPLEMENTAL SCALE SQ SCH ×4 (05:51→18:00)
--- NOTE | 2017-12-01 07:08 | HHI.CCPN ---
Subjective Remarks/Hospital Course This is a 32-year-old AA male. Date of admission 11/30/2017. 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 He has known seizure disorder on phenytoin and levetiracetam. Patient presents from [facility] with onset of pyrexia, tachycardia and change in mental status. Patient is to show preservation 103 with a heart rate in the 190s. Patient received 3 L normal saline bolus was started on vancomycin and piperacillin/tazobactam central was placed in the right femoral region secondary to poor prophylaxis. He also received acetaminophen. His fevers abated. Heart rate currently 120s. 12/01 No events overnight. On TP's with 35% FIO2. Afebrile. Objective Vital Signs Date Time Temp Pulse Resp B/P (MAP) Pulse Ox O2 Delivery O2 Flow Rate FiO2 12/01/17 06:00 99 12/01/17 05:52 98 T-piece 35 12/01/17 04:00 99.6 28 120/55 (76) 11/30/17 19:56 5.00 Intake and Output 12/01/17 12/01/17 12/02/17 08:00 16:00 00:00 Intake Total 1879 ml Output Total 1400 ml Balance 479 ml Result Diagram: 12/01/17 0443 12/01/17 0443 Other Results Laboratory Tests Test 11/30/17 08:21 11/30/17 08:47 11/30/17 10:00 11/30/17 11:00 White Blood Count 13.9 TH/MM3 Red Blood Count 5.44 MIL/MM3 Hemoglobin 16.9 GM/DL Hematocrit 50.3 % Mean Corpuscular Volume 92.4 FL Mean Corpuscular Hemoglobin 31.0 PG Mean Corpuscular Hemoglobin Concent 33.6 % Red Cell Distribution Width 14.3 % Platelet Count 406 TH/MM3 Mean Platelet Volume 8.5 FL Neutrophils (%) (Auto) 68.1 % Lymphocytes (%) (Auto) 22.8 % Monocytes (%) (Auto) 8.5 % Eosinophils (%) (Auto) 0.2 % Basophils (%) (Auto) 0.4 % Neutrophils # (Auto) 9.4 TH/MM3 Lymphocytes # (Auto) 3.2 TH/MM3 Monocytes # (Auto) 1.2 TH/MM3 Eosinophils # (Auto) 0.0 TH/MM3 Basophils # (Auto) 0.1 TH/MM3 CBC Comment DIFF FINAL Differential Comment Prothrombin Time 10.8 SEC Prothromb Time International Ratio 1.1 RATIO Activated Partial Thromboplast Time 20.9 SEC Blood Urea Nitrogen 14 MG/DL Creatinine 1.37 MG/DL Random Glucose 176 MG/DL Total Protein 9.1 GM/DL Albumin 4.2 GM/DL Calcium Level 9.8 MG/DL Phosphorus Level 3.2 MG/DL Magnesium Level 2.4 MG/DL Alkaline Phosphatase 174 U/L Aspartate Amino Transf (AST/SGOT) 38 U/L Alanine Aminotransferase (ALT/SGPT) 58 U/L Total Bilirubin 0.3 MG/DL Sodium Level 137 MEQ/L Potassium Level 5.1 MEQ/L Chloride Level 101 MEQ/L Carbon Dioxide Level 24.9 MEQ/L Anion Gap 11 MEQ/L Estimat Glomerular Filtration Rate 74 ML/MIN Lactic Acid Level 10.6 mmol/L 3.4 mmol/L Total Creatine Kinase 296 U/L Creatine Kinase MB 4.3 NG/ML Troponin I LESS THAN 0.02 NG/ML Lipase 133 U/L Thyroid Stimulating Hormone 3rd Gen 2.350 uIU/ML Blood Gas Puncture Site LINE Blood Gas Patient Temperature 98.6 Venous Blood pH 7.34 Venous Blood Partial Pressure CO2 39 mmHg Venous Blood Partial Pressure O2 35 mmHg Venous Blood HCO3 21 mmol/L Venous Blood Oxygen Saturation 61 % Venous Blood Oxygen Content 14.7 Vol % Venous Blood Base Excess -4.0 mmol/L Oxygen Delivery Device T-PIECE Blood Gas Inspired Oxygen 50 % Urine Color YELLOW Urine Turbidity HAZY Urine pH 6.0 Urine Specific [place] 1.032 Urine Protein 30 mg/dL Urine Glucose (UA) NEG mg/dL Urine Ketones 10 mg/dL Urine Occult Blood NEG Urine Nitrite NEG Urine Bilirubin NEG Urine Urobilinogen 2.0 MG/DL Urine Leukocyte Esterase NEG Urine RBC LESS THAN 1 /hpf Urine WBC 4 /hpf Urine Squamous Epithelial Cells <1 /hpf Urine Mucus FEW /lpf Microscopic Urinalysis Comment CATH-CULT NOT IND Test 11/30/17 14:00 11/30/17 18:15 12/01/17 01:39 12/01/17 04:43 Nasal Screen MRSA (PCR) MRSA DETECTED Lactic Acid Level 3.5 mmol/L 1.6 mmol/L 1.5 mmol/L Vancomycin Level Trough 2.5 MCG/ML Phenytoin (Dilantin) Level 6.4 MCG/ML White Blood Count 8.0 TH/MM3 Red Blood Count 3.91 MIL/MM3 Hemoglobin 12.1 GM/DL Hematocrit 35.1 % Mean Corpuscular Volume 89.9 FL Mean Corpuscular Hemoglobin 30.9 PG Mean Corpuscular Hemoglobin Concent 34.4 % Red Cell Distribution Width 14.3 % Platelet Count 176 TH/MM3 Mean Platelet Volume 8.6 FL Neutrophils (%) (Auto) 71.8 % Lymphocytes (%) (Auto) 17.3 % Monocytes (%) (Auto) 10.0 % Eosinophils (%) (Auto) 0.7 % Basophils (%) (Auto) 0.2 % Neutrophils # (Auto) 5.8 TH/MM3 Lymphocytes # (Auto) 1.4 TH/MM3 Monocytes # (Auto) 0.8 TH/MM3 Eosinophils # (Auto) 0.1 TH/MM3 Basophils # (Auto) 0.0 TH/MM3 CBC Comment DIFF FINAL Differential Comment Prothrombin Time 11.8 SEC Prothromb Time International Ratio 1.2 RATIO Activated Partial Thromboplast Time 27.5 SEC Blood Urea Nitrogen 8 MG/DL Creatinine 0.77 MG/DL Random Glucose 117 MG/DL Total Protein 6.4 GM/DL Albumin 2.9 GM/DL Calcium Level 8.3 MG/DL Phosphorus Level 2.3 MG/DL Magnesium Level 2.1 MG/DL Alkaline Phosphatase 114 U/L Aspartate Amino Transf (AST/SGOT) 37 U/L Alanine Aminotransferase (ALT/SGPT) 40 U/L Total Bilirubin 0.2 MG/DL Sodium Level 141 MEQ/L Potassium Level 3.6 MEQ/L Chloride Level 107 MEQ/L Carbon Dioxide Level 26.9 MEQ/L Anion Gap 7 MEQ/L Estimat Glomerular Filtration Rate 144 ML/MIN Imaging Last Impressions Chest X-Ray 11/30/17 0809 Signed Impressions: Service Date/Time: Thursday, November 30, 2017 09:11 - CONCLUSION: No acute disease. There is no evidence of pneumonia. Kartik Anderson MD Objective Remarks GENERAL: 32-year-old AA male currently on T piece in no acute distress SKIN: Warm and dry. No rash HEAD: Atraumatic. Normocephalic. EYES: Pupils equal and round about 3 mm bilaterally and reactive. No scleral icterus. No injection or drainage. ENT: No nasal bleeding or discharge. Mucous membranes pink and moist. NECK: Trachea midline. No JVD. Tracheostomy is clean dry and intact CARDIOVASCULAR: Tachycardic, RR. S1, S2 no S4. Without murmur RESPIRATORY: Clear to auscultation. Breath sounds equal bilaterally. GASTROINTESTINAL: Abdomen soft, non-tender, nondistended. GJ tube site is clean dry and intact MUSCULOSKELETAL: Extremities without edema. Contracted bilateral upper extremities.. NEUROLOGICAL: Status post tracheostomy. Positive gag. Positive corneal reflex. Withdraws to pain. A/P Assessment and Plan Neuro/Psych: Anoxic brain injury Seizure disorder NOS Continue levetiracetam 1000 mg twice a day and phenytoin 20 mg twice a day. Dilantin level: 6.4 Acetaminophen 650 mg by G-tube every 6 hours when necessary fever Oxycodone 5 mill grams every 6 hours. Rectal pain/home medication Baclofen 20 mg 3 times a day muscle spasticity Seizure precautions CV: Sinus tachycardia Essential hypertension History of dyslipidemia Lactic acidosis- Resolved On Amlodipine 10 mg daily, Metoprolol succinate 50 mg BID and hydralazine 50 mg every 8 hours On NS@84ml/hr Troponin less than 0.02 admission Lactate 10.2 admission.resolved 1.5 today Received 3 L normal saline in ED. Resp: Chronic respiratory failure Currently on TPs maintain saturations greater than equal to 90%. Chest x-ray and admission revealed no acute findings Albuterol/ipratropium aerosols every 6 hours with albuterol aerosols every 2 hours. Dyspnea Pulmonary toilet, trach care GI: Gastroesophageal reflux disease Elevated AST Vital 1.5 goal 90 cc an hour per J-tube currently @60ml/hr Lansoprazole 30 mg daily for GI prophylaxis. On famotidine 20 twice a day and ranitidine 150 mg twice a day at half-way Docusate sodium/senna 1 tablet twice a day for bowel regimen : MAYNOR- Resolved Monitor renal function, electrolytes replacement per protocol. On NS@84ml/hr Endo: Diabetes mellitus History of pancreatitis Sliding-scale insulin with Novulin R median protocol Accu 6 every 6 hours to maintain euglycemia Heme: Leukocytosis Chronic Apixaban use On apixaban 5 mg twice a day Monitor CBC daily. Follow trends ID: Follow up on Blood cultures and sputum cxs Urine Legionella, pneumococcal and influenza screening all negative On Piperacillin/tazobactam and vancomycin monitor for signs of infections ( Fever, WBC) Endo: On SSI for glycemic control MSK: Muscle contractions PT/OT evaluate and treat Access - Right femoral central line placed 11/30 by ED physician Prophylaxis - GI - lansoprazole - DVT - SCD/ Apixaban Level II Greg Ness MD Dec 01, 2017 07:08
[2017-12-01] MEDS: HYOSCYAMINE SOLN 0.125 MG/ML 15 ML BTL G-TUBE SCH ×2 (09:10→19:55)
[2017-12-01] MEDS: ARTIFICIAL TEARS OPTH SOLN 15 ML BTL EACH EYE SCH ×3 (09:11→18:22)
[2017-12-01] MEDS: PHENYTOIN SUSP 100 MG/4 ML CUP PO SCH ×2 (09:11→19:48)
[2017-12-01] MEDS: METOPROLOL TARTRATE 50 MG TAB PO SCH ×2 (09:13→19:48)
[2017-12-01] MEDS: LANSOPRAZOLE SOLUTAB 30 MG TAB G-TUBE SCH (09:13)
[2017-12-01] MEDS: MORPHINE SULFATE 2 MG/ML INJ IV PUSH PRN ×3 (09:13→20:02)
[2017-12-01] MEDS: DOCUSATE SODIUM 50 MG/SENNA 8.6 MG TAB PO SCH ×2 (09:13→19:47)
[2017-12-01] MEDS: LORATADINE 10 MG TAB G-TUBE SCH (09:14)
[2017-12-01] MEDS: levETIRAcetam 500 MG/5 ML UDC G-TUBE SCH ×2 (09:14→19:47)
[2017-12-01] MEDS: BACLOFEN 20 MG TAB G-TUBE SCH ×3 (09:14→18:22)
[2017-12-01] MEDS: SODIUM CHLORIDE 0.9% FLUSH 10 ML FLUSH IV FLUSH SCH ×2 (09:16→19:48)
[2017-12-01] MEDS: APIXABAN 5 MG TABLET G-TUBE SCH ×2 (10:43→19:48)
[2017-12-01] MEDS: VANCOMYCIN INJ 1,500 MG in SODIUM CHLORID 0.9% 500 ML INJ 500 ML IV SCH (14:45)
[2017-12-02] VITALS (15 sets, daily range): BP systolic 94–117; BP diastolic 51–61; PULSE 58–100; RESP 0–28; TEMP 98.3–99; O2SAT 95–100
[2017-12-02] MEDS: PIPERACIL-TAZO 4.5 GM PREMIX 100 ML IV SCH ×4 (01:11→21:12)
[2017-12-02] MEDS: VANCOMYCIN INJ 1,500 MG in SODIUM CHLORID 0.9% 500 ML INJ 500 ML IV SCH ×2 (01:12→15:23)
[2017-12-02] MEDS: CHLORHEXIDINE GLUCONATE 2 % 1 PACK (2 CLOTHS) TOP SCH (03:13)
[2017-12-02] MEDS: RESP: ALBUTEROL 2.5 MG/IPRATROPIUM 0.5 MG NEB (SCH) INH ×4 (03:41→20:36)
[2017-12-02 04:36] LABS: AUTOMATED NEUTROPHIL # 2.3 TH/MM3 (1.8-7.7); BASOPHIL % 0.5 % (0.0-2.0); EOSINOPHIL # 0.1 TH/MM3 (0-0.4); EOSINOPHIL % 2.7 % (0.0-4.0); HEMATOCRIT 36.1 % (39.0-51.0); HEMOGLOBIN 12.2 GM/DL (13.0-17.0); LYMPH % 34.9 % (9.0-44.0); LYMPHOCYTE # 1.7 TH/MM3 (1.0-4.8); MEAN CELL VOLUME 91.2 FL (80.0-100.0); MEAN CORPUSCULAR HEMOGLOBIN 30.8 PG (27.0-34.0); MEAN CORPUSCULAR HGB CONC 33.7 % (32.0-36.0); MEAN PLATELET VOLUME 8.9 FL (7.0-11.0); MONO % 13.7 % (0.0-8.0); MONOCYTE # 0.6 TH/MM3 (0-0.9); NEUT % 48.2 % (16.0-70.0); PLATELET COUNT 151 TH/MM3 (150-450); RED BLOOD COUNT 3.96 MIL/MM3 (4.50-5.90); RED CELL DISTRIBUTION WIDTH 14.1 % (11.6-17.2); WHITE BLOOD COUNT 4.7 TH/MM3 (4.0-11.0)
[2017-12-02 04:55] LABS: BICARBONATE 27.1 MEQ/L (21.0-32.0); CALCIUM 7.7 MG/DL (8.5-10.1); CREATININE 0.61 MG/DL (0.60-1.30); MAGNESIUM 2.2 MG/DL (1.5-2.5)
[2017-12-02] MEDS: cloNIDine HCL 0.1 MG TAB PO SCH ×3 (05:17→21:13)
[2017-12-02] MEDS: FREE WATER G-TUBE SCH ×4 (05:17→18:00)
[2017-12-02] MEDS: hydrALAZINE HCL 50 MG TAB G-TUBE SCH ×3 (05:17→21:13)
[2017-12-02] MEDS: INSULIN NovoLIN REGULAR SUPPLEMENTAL SCALE SQ SCH ×4 (05:18→18:00)
[2017-12-02] MEDS: SODIUM CHLOR 0.9% 1000 ML INJ 1,000 ML IV SCH (05:18)
[2017-12-02] MEDS: MORPHINE SULFATE 2 MG/ML INJ IV PUSH PRN ×2 (08:29→16:14)
[2017-12-02] MEDS: ARTIFICIAL TEARS OPTH SOLN 15 ML BTL EACH EYE SCH ×3 (08:29→18:44)
[2017-12-02] MEDS: LANSOPRAZOLE SOLUTAB 30 MG TAB G-TUBE SCH (08:35)
[2017-12-02] MEDS: PHENYTOIN SUSP 100 MG/4 ML CUP PO SCH ×2 (08:35→21:12)
[2017-12-02] MEDS: METOPROLOL TARTRATE 50 MG TAB PO SCH ×2 (08:35→21:00)
[2017-12-02] MEDS: BACLOFEN 20 MG TAB G-TUBE SCH ×3 (08:36→18:00)
[2017-12-02] MEDS: APIXABAN 5 MG TABLET G-TUBE SCH ×2 (08:36→21:12)
[2017-12-02] MEDS: levETIRAcetam 500 MG/5 ML UDC G-TUBE SCH ×2 (08:36→21:12)
[2017-12-02] MEDS: LORATADINE 10 MG TAB G-TUBE SCH (08:36)
[2017-12-02] MEDS: SODIUM CHLORIDE 0.9% FLUSH 10 ML FLUSH IV FLUSH SCH ×2 (08:37→21:13)
[2017-12-02] MEDS: HYOSCYAMINE SOLN 0.125 MG/ML 15 ML BTL G-TUBE SCH ×2 (08:37→21:13)
[2017-12-02] MEDS: DOCUSATE SODIUM 50 MG/SENNA 8.6 MG TAB PO SCH ×2 (08:38→21:12)
--- NOTE | 2017-12-02 10:00 | HHI.CCPN ---
Subjective Remarks/Hospital Course This is a 32-year-old AA male. Date of admission 11/30/2017. 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 He has known seizure disorder on phenytoin and levetiracetam. Patient presents from [facility] with onset of pyrexia, tachycardia and change in mental status. Patient is to show preservation 103 with a heart rate in the 190s. Patient received 3 L normal saline bolus was started on vancomycin and piperacillin/tazobactam central was placed in the right femoral region secondary to poor prophylaxis. He also received acetaminophen. His fevers abated. Heart rate currently 120s. 12/01 No events overnight. On TP's with 35% FIO2. Afebrile. Subjective 12/02: Afebrile. Resting in bed in no acute distress. On T piece at 6 L/35%. Sputum with schmitt resistant Pseudomonas. Objective Vital Signs Date Time Temp Pulse Resp B/P (MAP) Pulse Ox O2 Delivery O2 Flow Rate FiO2 12/02/17 07:51 98 T-piece 6.00 35 12/02/17 06:00 67 12/02/17 04:00 98.1 28 117/60 (79) Intake and Output 12/02/17 12/02/17 2/11/19 08:00 16:00 00:00 Intake Total 1981 ml Output Total 2000 ml Balance -19 ml Result Diagram: 12/02/17 0400 12/02/17 0400 Other Results Microbiology Date/Time Source Procedure Growth Status 11/30/17 08:21 Blood Peripheral Aerobic Blood Culture - Preliminary NO GROWTH IN 1 DAY Resulted 11/30/17 08:21 Blood Peripheral Anaerobic Blood Culture - Preliminary NO GROWTH IN 1 DAY Resulted 11/30/17 12:35 Sputum Endotracheal Gram Stain - Final Resulted 11/30/17 12:35 Sputum Culture - Preliminary Pseudomonas Aeruginosa Multi-Drug Resistant Gram Negative Tobin Resulted 11/30/17 10:00 Urine Other Legionella Antigen - Final PRESUMPTIVE NEGATIVE FOR LEGIONELLA P... Complete 11/30/17 10:00 Urine Other Streptococcus pneumoniae Antigen (M - Final PRESUMPTIVE NEGATIVE FOR STREPTOCOCCU... Complete Imaging Last Impressions Chest X-Ray 11/30/17 0809 Signed Impressions: Service Date/Time: Thursday, November 30, 2017 09:11 - CONCLUSION: No acute disease. There is no evidence of pneumonia. Kartik Anderson MD Objective Remarks GENERAL: 32-year-old AA male currently on T piece in no acute distress SKIN: Warm and dry. No rash HEAD: Atraumatic. Normocephalic. EYES: Pupils equal and round about 3 mm bilaterally and reactive. No scleral icterus. No injection or drainage. ENT: No nasal bleeding or discharge. Mucous membranes pink and moist. NECK: Trachea midline. No JVD. Tracheostomy is clean dry and intact CARDIOVASCULAR: Tachycardic, RR. S1, S2 no S4. Without murmur RESPIRATORY: Clear to auscultation. Breath sounds equal bilaterally. GASTROINTESTINAL: Abdomen soft, non-tender, nondistended. GJ tube site is clean dry and intact MUSCULOSKELETAL: Extremities without edema. Contracted bilateral upper extremities.. NEUROLOGICAL: Status post tracheostomy. Positive gag. Positive corneal reflex. Withdraws to pain. Urinary Catheter: Yes Assessment to: Continue Tello insert reason: Prolonged Immobilization Vascular Central Line Catheter: Yes Assessment to: Remove Date of Insertion: Nov 30, 2017 Line: Central Venous Catheter Side: Right Location: Femoral A/P Assessment and Plan Neuro/Psych: Anoxic brain injury Seizure disorder NOS Continue levetiracetam 1000 mg twice a day and phenytoin 200 mg twice a day Check phenytoin level in a.m. was 6.4 Acetaminophen 650 mg by G-tube every 6 hours when necessary fever Oxycodone 5 mill grams every 6 hours. As needed pain/home medication Baclofen 20 mg 3 times a day muscle spasticity Seizure precautions CV: Essential hypertension History of dyslipidemia Lactic acidosis Continue home medications of amlodipine 10 mg daily, metoprolol succinate 50 mill grams twice a day and hydralazine 50 mg every 8 hours Currently normal saline at 84 cc an hour. We'll discontinue today 12/02 Troponin less than 0.02 admission Lactate 10.2 admission. Serial lactates every 6 hours until clear. Received 3 L normal saline in ED. Resp: Chronic respiratory failure Currently on TPs maintain saturations greater than equal to 92%. Currently at 6 L Wean to trach collar as tolerated Chest x-ray 11/30 revealed no acute findings Albuterol/ipratropium aerosols every 6 hours with albuterol aerosols every 2 hours. Dyspnea GI: Gastroesophageal reflux disease Elevated AST Vital 1.5 goal 90 cc an hour per J-tube Lansoprazole 30 mg daily for GI prophylaxis. On famotidine 20 twice a day and ranitidine 150 mg twice a day at longterm Docusate sodium/senna 1 tablet twice a day for bowel regimen : Tello catheter if indicated for accurate I's and O's in a critically ill patient Endo: Diabetes mellitus History of pancreatitis Sliding-scale insulin with Novulin R median protocol Accu 6 every 6 hours to maintain euglycemia Renal: Acute kidney injury Aggressive hydration. Monitor urine output Accurate I's and O's Repeat BMP in a.m. Likely prerenal Heme: Normocytic anemia Chronic Apixaban use Resumed apixaban 5 mg twice a day Monitor CBC daily. Follow trends ID: Sputum with multidrug-resistant Pseudomonas/gram-negative tobin Consult infectious disease. Droplet precautions. Contact precautions. 11/30 Blood cultures 2, UA no growth to date, sputum MDRO Pseudomonas, gram-negative tobin Urine Legionella, pneumococcal and influenza all negative Piperacillin/tazobactam and vancomycin day #3 FEN: Replace electrolytes as clinically indicated Holding home dose of potassium chloride 20 mEq twice a day with potassium of 5.1 MSK: Muscle contractions PT/OT evaluate and treat Access - Right femoral central line placed 11/30 by ED physician Prophylaxis - GI - lansoprazole - DVT - SCD/ Apixaban Level II follow-up Teddy Maya MD Dec 02, 2017 09:59
[2017-12-02] MEDS ORDERED: FOSPHENYTOIN SODIUM 500 MG PE/10 ML VIAL IV ONE (10:30)
[2017-12-02] MEDS ORDERED: SOD CHLOR I-ARTERIAL SCH (11:30)
[2017-12-02] MEDS ORDERED: FOSPHENYTOIN I-ARTERIAL SCH (11:30)
[2017-12-02] MEDS ORDERED: FOSPHENYTOIN INJ 500 MGPE in SODIUM CHLORIDE 0.9% INJ 50 ML IV ONE (11:45)
--- NOTE | 2017-12-02 12:19 | MB ---
cc: JEY DAY MD,SHON Patel MD DATE OF CONSULTATION 12/02/[address] Maya. REASON FOR CONSULTATION Antibiotic management. HISTORY OF PRESENT ILLNESS This is a 32-year-old black male who presented to the emergency department from a nursing care facility. The patient has had brain trauma with anoxic encephalopathy. He has chronic tracheostomy and PEG. The patient was sent to the emergency department because he was tachycardic and diaphoretic. He had temperature of 100.4 degrees and heart rate of 121, respiratory rate 28. Lactic acid level was 10.6. Urinalysis was performed and it showed 4 white cells. Urine culture was not performed. Sputum culture was taken via the tracheostomy and has multiple drug resistant Pseudomonas aeruginosa. The organism is resistant to all antibiotics tested so far. The patient is awake and has his eyes open but he does not verbalize and cannot follow commands. Information is obtained from the medical record. He has a copious amount of beige secretions via his tracheostomy and also coming from the oral cavity. I am told by the nurses that they have to suction him very frequently. Chest x-ray was performed and it showed no acute disease. His white count is now down to 4.7. White count on 11/30/2017 was 13.9. The patient had an elevated temperature to 102 on 11/30/2017 and his temperature remained elevated throughout the day on 11/30/2017 and then became normal in the afternoon of 11/30/2017 and has remained normal. Blood cultures have no growth. Influenza testing is negative. PAST MEDICAL HISTORY 1. Anoxic encephalopathy following cardiac arrest. 2. Tracheostomy and PEG tube placement in July 2015. 3. Seizure disorder. 4. Diabetes mellitus. 5. History of pancreatitis. 6. Gastroesophageal reflux disease. 7. 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 ALLERGIES No known drug allergies. MEDICATIONS 1. Vancomycin. 2. Piperacillin/tazobactam. 3. Prevacid. 4. Norvasc. 5. Claritin. 6. Shala-Colace. 7. Eliquis. 8. Keppra. 9. Lopressor. 10.Dilantin. 11.Levsin. 12.Hydralazine. 13.Baclofen. 14.Oxycodone. SOCIAL HISTORY No tobacco. No alcohol. No illicit drugs. FAMILY HISTORY Unable to obtain. REVIEW OF SYSTEMS Unable to obtain. PHYSICAL EXAMINATION GENERAL: This is a well-developed male who is lying in bed with his eyes open, but does not communicate otherwise. He appears alert. VITAL SIGNS: Temperature 98.1, blood pressure 150/55, heart rate 70, respirations 20. HEAD, EYES, EARS, NOSE, AND THROAT: The pupils are reactive. No icterus. Oropharynx mucosa moist. NECK: No swelling or adenopathy. Tracheostomy tube in place with copious secretions. LUNGS: Bilateral rhonchi. HEART: Regular S1 and S2 without audible murmurs. ABDOMEN: Positive bowel sounds. No grimacing upon palpation. RECTAL: Not performed. EXTREMITIES: No clubbing, cyanosis or edema. SKIN: No diffuse rash. NEUROLOGIC: Unable to fully assess. PSYCH: Unable to fully assess. LABORATORY WBC 4.7, platelets 151, hemoglobin 12.2, 48% neutrophils, 34% lymphocytes, 13% monocytes. Creatinine 0.61, BUN 6, sodium 143, estimated GFR 188. Liver function tests normal. IMPRESSION 1. Multiple drug-resistant sputum culture in a patient with anoxic brain injury and without evidence of pneumonia on chest x-ray. The patient very likely has tracheobronchitis or colonization. 2. Sepsis on admission. The sepsis probably originated from another source besides the pulmonary system. 3. Chronic tracheostomy. Since the chest x-ray is negative and the patient's white blood cell count which was 13.9 on admission is now down to 4.7, I do not think we need to administer any antibiotic for the bacteria in the lung. However, piperacillin was started on 11/30/2017. It is not clear to me whether that is having any impact on the bacteria in the sputum but since his temperature has improved I would keep the piperacillin/tazobactam and treat for 7 days. The lab is also checking into additional antibiotic sensitivities. The patient has copious secretions and needs frequent suctioning and that should continue to be done. He should be monitored for deterioration and if there are no signs of the deterioration then would be best to avoid additional antibiotics besides that which he is receiving. Current antibiotics include vancomycin which may have been what led to his improvement despite the blood cultures being negative. He had received the initial dose of vancomycin and piperacillin/tazobactam in the morning of 11/30/2017 and that is the only antibiotics he had received prior to his temperature improving. If he has any spike in temperature I would repeat the culture of the sputum to see if the bacteria in the lung has changed or there is any bacteria besides the Pseudomonas aeruginosa. Thank you for this consultation. The progress will be monitored. Jey Day MD FD/GEORGE /11:15 AM /11:44 AM MTDKrista
[2017-12-02] MEDS ORDERED: FOSPHENYTOIN I-ARTERIAL ONE (16:30)
[2017-12-02] MEDS ORDERED: SOD CHLOR I-ARTERIAL ONE (16:30)
[2017-12-03] VITALS (19 sets, daily range): BP systolic 94–149; BP diastolic 48–93; PULSE 65–111; RESP 3–29; TEMP 98.4–99.3; O2SAT 97–100
[2017-12-03] MEDS ORDERED: PHARMACY ORDERED LAB ONE (00:45)
[2017-12-03] MEDS: VANCOMYCIN INJ 1,500 MG in SODIUM CHLORID 0.9% 500 ML INJ 500 ML IV SCH ×2 (01:00→13:00)
[2017-12-03] MEDS: PIPERACIL-TAZO 4.5 GM PREMIX 100 ML IV SCH ×4 (01:55→21:52)
[2017-12-03] MEDS: RESP: ALBUTEROL 2.5 MG/IPRATROPIUM 0.5 MG NEB (SCH) INH ×4 (02:51→21:09)
[2017-12-03] MEDS: CHLORHEXIDINE GLUCONATE 2 % 1 PACK (2 CLOTHS) TOP SCH (04:00)
--- NOTE | 2017-12-03 05:39 | RADRPT ---
EXAM DATE/TIME: 12/03/2017 03:33 [facility] COMPARISON: CHEST SINGLE AP, November 30, 2017, 9:11. INDICATIONS : Shortness of breath, possible pulmonary disease. MEDICAL HISTORY : Myocardial infarction. Hypercholesterolemia. Hypertension. Anoxic brain injury SURGICAL HISTORY : Tracheostomy Peg tube ENCOUNTER: Subsequent ACUITY: 3 days PAIN SCORE: Non-responsive. LOCATION: Bilateral chest FINDINGS: A single view of the chest demonstrates tracheostomy in good position. Cardiomegaly with mild basilar and perihilar airspace disease. Cannot exclude pericardial effusion. No pneumothorax or significant pleural effusion. CONCLUSION: Increase in size of cardiac silhouette since November 30. Cannot exclude pericardial effusion. Mild basilar and perihilar airspace disease. Fidel Myers MD on December 03, 2017 at 5:35 Board Certified Radiologist. This report was verified electronically.
[2017-12-03] MEDS: hydrALAZINE HCL 50 MG TAB G-TUBE SCH ×3 (05:56→22:57)
[2017-12-03] MEDS: FREE WATER G-TUBE SCH ×4 (05:56→17:47)
[2017-12-03] MEDS: cloNIDine HCL 0.1 MG TAB PO SCH ×3 (05:57→22:58)
[2017-12-03] MEDS: INSULIN NovoLIN REGULAR SUPPLEMENTAL SCALE SQ SCH ×4 (05:57→17:47)
[2017-12-03 08:15] LABS: AUTOMATED NEUTROPHIL # 2.2 TH/MM3 (1.8-7.7); BASOPHIL % 0.4 % (0.0-2.0); EOSINOPHIL # 0.1 TH/MM3 (0-0.4); EOSINOPHIL % 2.3 % (0.0-4.0); HEMATOCRIT 34.4 % (39.0-51.0); HEMOGLOBIN 11.7 GM/DL (13.0-17.0); LYMPH % 30.6 % (9.0-44.0); LYMPHOCYTE # 1.2 TH/MM3 (1.0-4.8); MEAN CELL VOLUME 90.7 FL (80.0-100.0); MEAN CORPUSCULAR HEMOGLOBIN 30.9 PG (27.0-34.0); MEAN CORPUSCULAR HGB CONC 34.1 % (32.0-36.0); MEAN PLATELET VOLUME 9.1 FL (7.0-11.0); MONO % 12.9 % (0.0-8.0); MONOCYTE # 0.5 TH/MM3 (0-0.9); NEUT % 53.8 % (16.0-70.0); PLATELET COUNT 165 TH/MM3 (150-450); RED BLOOD COUNT 3.79 MIL/MM3 (4.50-5.90); RED CELL DISTRIBUTION WIDTH 14.6 % (11.6-17.2)
[2017-12-03] MEDS: levETIRAcetam 500 MG/5 ML UDC G-TUBE SCH ×2 (08:25→21:54)
[2017-12-03] MEDS: PHENYTOIN SUSP 100 MG/4 ML CUP PO SCH ×2 (08:25→21:54)
[2017-12-03] MEDS: HYOSCYAMINE SOLN 0.125 MG/ML 15 ML BTL G-TUBE SCH ×2 (08:26→21:57)
[2017-12-03] MEDS: LANSOPRAZOLE SOLUTAB 30 MG TAB G-TUBE SCH (08:26)
[2017-12-03] MEDS: LORATADINE 10 MG TAB G-TUBE SCH (08:26)
[2017-12-03] MEDS: BACLOFEN 20 MG TAB G-TUBE SCH ×3 (08:26→17:47)
[2017-12-03] MEDS: APIXABAN 5 MG TABLET G-TUBE SCH ×2 (08:26→21:55)
[2017-12-03] MEDS: ARTIFICIAL TEARS OPTH SOLN 15 ML BTL EACH EYE SCH ×3 (08:27→17:47)
[2017-12-03] MEDS: METOPROLOL TARTRATE 50 MG TAB PO SCH ×2 (08:28→21:00)
[2017-12-03] MEDS: SODIUM CHLORIDE 0.9% FLUSH 10 ML FLUSH IV FLUSH SCH ×2 (08:28→21:55)
[2017-12-03] MEDS: DOCUSATE SODIUM 50 MG/SENNA 8.6 MG TAB PO SCH ×2 (08:28→21:52)
[2017-12-03 08:45] LABS: ALBUMIN 2.7 GM/DL (3.4-5.0); AST (GOT) 34 U/L (15-37); BICARBONATE 29.3 MEQ/L (21.0-32.0); BLOOD UREA NITROGEN 7 MG/DL (7-18); CHLORIDE 108 MEQ/L (98-107); CREATININE 0.59 MG/DL (0.60-1.30); GLOMERULAR FILTRATION RATE 195 ML/MIN (>89); GLUCOSE,RANDOM 87 MG/DL (74-106); MAGNESIUM 2.2 MG/DL (1.5-2.5); SODIUM (NA) 143 MEQ/L (136-145)
[2017-12-03 08:48] LABS: ALKALINE PHOSPHATASE 115 U/L (45-117); ALT (GPT) 49 U/L (12-78); PHENYTOIN (DILANTIN) 12.2 MCG/ML (10.0-20.0); TOTAL BILIRUBIN ADULT 0.2 MG/DL (0.2-1.0); TOTAL PROTEIN 6.5 GM/DL (6.4-8.2)
--- NOTE | 2017-12-03 13:19 | HHI.IDPN ---
Note Infectious Disease Note Patient in no distress. Spitting up clear oral secretions. Noted to have marie trach secretions. Afebrile. 32-year-old black male who presented to the emergency department from a nursing care facility. The patient has had brain trauma with anoxic encephalopathy. He has chronic tracheostomy and PEG. The patient was sent to the emergency department because he was tachycardic and diaphoretic. He had temperature of 100.4 degrees and heart rate of 121, respiratory rate 28. Lactic acid level was 10.6. PAST MEDICAL HISTORY 1. Anoxic encephalopathy following cardiac arrest. 2. Tracheostomy and PEG tube placement in July 2015. 3. Seizure disorder. 4. Diabetes mellitus. 5. History of pancreatitis. 6. Gastroesophageal reflux disease. 7. 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 ALLERGIES No known drug allergies. MEDICATIONS 1. Vancomycin. 2. Piperacillin/tazobactam. Current Medications Medications (Trade) Dose Ordered Sig/Julian Route PRN Reason Start Time Stop Time Status Last Admin Dose Admin Sodium Chloride (NS Flush) 2 ml UNSCH PRN IV FLUSH FLUSH AFTER USING IV ACCESS 11/30/17 11:15 Sodium Chloride (NS Flush) 2 ml BID IV FLUSH 11/30/17 21:00 12/03/17 08:28 Lansoprazole (Prevacid Odt) 30 mg DAILY G-TUBE 12/01/17 09:00 12/03/17 08:26 Lorazepam (Ativan Inj) 2 mg Q4H PRN IV PUSH Agitation/Sedation 11/30/17 11:15 Artificial Tears (Tears Naturale Opth Soln) 1 drop TID EACH EYE 11/30/17 13:00 12/03/17 08:27 Ondansetron HCl (Zofran Inj) 4 mg Q6H PRN IV PUSH NAUSEA OR VOMITING 11/30/17 11:15 Albuterol/ Ipratropium (Duoneb Neb) 1 ampule Q6HR NEB INH 11/30/17 16:00 12/03/17 09:01 Albuterol Sulfate (Albuterol Neb) 2.5 mg Q2HR NEB PRN INH SOB/WHEEZING 11/30/17 11:15 Miscellaneous Information 1 Q361D XX 11/30/17 11:15 Chlorhexidine Gluconate (Chlorhexidine 2% Cloth) 3 pack Taper DAILY@04 TOP 12/01/17 04:00 11/27/18 03:59 12/03/17 04:00 Chlorhexidine Gluconate (Chlorhexidine 2% Cloth) 3 pack UNSCH PRN TOP HYGIENIC CARE 11/30/17 11:15 Senna/Docusate Sodium (Shala-Colace) 1 tab BID PO 11/30/17 21:00 12/02/17 21:12 Magnesium Hydroxide (Milk Of Magnesia Liq) 30 ml Q12H PRN PO Mild constipation 11/30/17 11:15 Sennosides (Senokot) 17.2 mg Q12H PRN PO Moderate constipation 11/30/17 11:15 Bisacodyl (Dulcolax Supp) 10 mg DAILY PRN RECTAL SEVERE CONSITIPATION 11/30/17 11:15 Lactulose (Lactulose Liq) 30 ml DAILY PRN PO SEVERE CONSITIPATION 11/30/17 11:15 Amlodipine Besylate (Norvasc) 10 mg DAILY G-TUBE 12/01/17 09:00 12/03/17 08:26 Apixaban (Eliquis) 5 mg BID G-TUBE 11/30/17 21:00 12/03/17 08:26 Baclofen (Lioresal) 20 mg TID G-TUBE 11/30/17 13:00 12/03/17 08:26 Hydralazine HCl (Apresoline) 50 mg Q8HR G-TUBE 11/30/17 14:00 12/02/17 16:15 Levetriacetam (Keppra Liq) 1,000 mg BID G-TUBE 11/30/17 21:00 12/03/17 08:25 Loratadine (Claritin) 10 mg DAILY G-TUBE 12/01/17 09:00 12/03/17 08:26 Metoprolol Tartrate (Lopressor) 50 mg BID PO 11/30/17 21:00 12/02/17 08:35 Oxycodone HCl (Roxicodone) 5 mg Q6H PRN PO PAIN 1-11/30/17 11:30 11/30/17 13:41 Phenytoin (Dilantin Liq) 200 mg Q12HR PO 11/30/17 21:00 12/03/17 08:25 Hyoscyamine Sulfate (Levsin Liq) 0.125 mg BID G-TUBE 11/30/17 21:00 12/03/17 08:26 Water (Free Water) 250 ml Q6H G-TUBE 11/30/17 12:00 12/03/17 05:56 Pharmacy Profile Note 0 ml @ 0 mls/hr UNSCH OTHER 11/30/17 11:30 Piperacillin Sod/ Tazobactam Sod 100 ml @ 200 mls/hr Q6H IV 11/30/17 14:00 12/03/17 08:27 Dextrose (D50w (Vial) Inj) 50 ml UNSCH PRN IV PUSH HYPOGLYCEMIA-SEE COMMENTS 11/30/17 11:30 Glucagon (Glucagon Inj) 1 mg UNSCH PRN OTHER HYPOGLYCEMIA-SEE COMMENTS 11/30/17 11:30 Insulin Human Regular (NovoLIN R SUPPLEMENTAL SCALE) 1 Q6HR SQ 11/30/17 12:00 Acetaminophen (Tylenol 650 Mg/ 20 ml Liq) 650 mg Q6H PRN G-TUBE fever 11/30/17 12:00 11/30/17 12:55 Potassium Chloride 100 ml @ 50 mls/hr Q2H PRN IV For Potassium 2.8 - 3.2 mEq/L 11/30/17 12:00 Potassium Chloride 100 ml @ 50 mls/hr Q2H PRN IV For Potassium 2.8 - 3.2 mEq/L 11/30/17 12:00 Potassium Bicarb/ Potassium Chloride (K-Lyte Cl Eff) 50 meq UNSCH PRN PO For Potassium 3.3 - 3.5 mEq/L 11/30/17 12:00 Potassium Chloride 100 ml @ 25 mls/hr UNSCH PRN IV For Potassium 3.3 - 3.5 mEq/L 11/30/17 12:00 Potassium Chloride 100 ml @ 50 mls/hr Q2H PRN IV For Potassium 3.3 - 3.5 mEq/L 11/30/17 12:00 Magnesium Sulfate 4 gm/Sodium Chloride 100 ml @ 50 mls/hr UNSCH PRN IV For Magnesium 0.9 - 1.1 mg/dL 11/30/17 12:00 Magnesium Oxide (Mag-Ox) 800 mg UNSCH PRN PO For Magnesium 1.2 - 1.6 mg/dL 11/30/17 12:00 Magnesium Sulfate 2 gm/Sodium Chloride 100 ml @ 50 mls/hr UNSCH PRN IV For Magnesium 1.2 - 1.6 mg/dL 11/30/17 12:00 Potassium Phosphate (K-Phos) 2,000 mg Q4H PRN PO For Phosphorus < 2.5 mg/dL 11/30/17 12:00 Sodium Phosphate 30 mmol/Sodium Chloride 250 ml @ 42 mls/hr UNSCH PRN IV For Phosphorus < 2.5 mg/dL 11/30/17 12:00 12/01/17 06:22 Potassium Phosphate (K-Phos) 2,000 mg UNSCH PRN PO/TUBE SEE LABEL COMMENTS 11/30/17 12:00 Potassium Phosphate 30 mmol/ Sodium Chloride 260 ml @ 42 mls/hr UNSCH PRN IV SEE LABEL COMMENTS 11/30/17 12:00 Morphine Sulfate (Morphine Inj) 2 mg Q3H PRN IV PUSH breakthrough pain 11/30/17 14:15 12/02/17 16:14 Clonidine (Catapres) 0.1 mg Q8HR PO 11/30/17 14:15 12/02/17 16:14 Vancomycin HCl 1500 mg/Sodium Chloride 515 ml @ 250 mls/hr Q12H IV 12/01/17 13:00 12/03/17 01:00 Miscellaneous Information SPECIFIC LAB TO BE DRAWN:VANCOMYCIN TROUGH DATE TO... ONCE ONCE .XX 12/04/17 00:45 12/04/17 00:46 OBJECTIVE: Vital Signs Date Time Temp Pulse Resp B/P (MAP) Pulse Ox O2 Delivery O2 Flow Rate FiO2 12/03/17 10:00 70 5 101/48 (65) 98 12/03/17 09:02 100 T-piece 35 12/03/17 09:00 72 3 112/54 (73) 99 12/03/17 08:00 98.4 67 24 124/58 (80) 100 12/03/17 07:00 98 T-Piece 35.00 12/03/17 06:00 67 12/03/17 04:00 99.3 77 22 120/75 (90) 98 12/03/17 04:00 71 12/03/17 02:00 84 12/03/17 00:00 71 12/03/17 00:00 99.0 74 14 126/61 (82) 97 12/02/17 22:00 71 12/02/17 20:37 100 T-piece 35 12/02/17 20:00 72 12/02/17 20:00 98.8 62 1 103/51 (68) 100 12/02/17 19:00 100 T-Piece 35.00 12/02/17 18:00 80 12/02/17 16:00 99.0 69 0 116/61 (79) 100 12/02/17 16:00 69 12/02/17 14:00 72 Laboratory Tests Test 12/03/17 02:35 12/03/17 05:30 Vancomycin Level Trough 12.0 MCG/ML White Blood Count 4.0 TH/MM3 Red Blood Count 3.79 MIL/MM3 Hemoglobin 11.7 GM/DL Hematocrit 34.4 % Mean Corpuscular Volume 90.7 FL Mean Corpuscular Hemoglobin 30.9 PG Mean Corpuscular Hemoglobin Concent 34.1 % Red Cell Distribution Width 14.6 % Platelet Count 165 TH/MM3 Mean Platelet Volume 9.1 FL Neutrophils (%) (Auto) 53.8 % Lymphocytes (%) (Auto) 30.6 % Monocytes (%) (Auto) 12.9 % Eosinophils (%) (Auto) 2.3 % Basophils (%) (Auto) 0.4 % Neutrophils # (Auto) 2.2 TH/MM3 Lymphocytes # (Auto) 1.2 TH/MM3 Monocytes # (Auto) 0.5 TH/MM3 Eosinophils # (Auto) 0.1 TH/MM3 Basophils # (Auto) 0.0 TH/MM3 CBC Comment DIFF FINAL Differential Comment Blood Urea Nitrogen 7 MG/DL Creatinine 0.59 MG/DL Random Glucose 87 MG/DL Total Protein 6.5 GM/DL Albumin 2.7 GM/DL Calcium Level 8.0 MG/DL Phosphorus Level 3.0 MG/DL Magnesium Level 2.2 MG/DL Alkaline Phosphatase 115 U/L Aspartate Amino Transf (AST/SGOT) 34 U/L Alanine Aminotransferase (ALT/SGPT) 49 U/L Total Bilirubin 0.2 MG/DL Sodium Level 143 MEQ/L Potassium Level 3.8 MEQ/L Chloride Level 108 MEQ/L Carbon Dioxide Level 29.3 MEQ/L Anion Gap 6 MEQ/L Estimat Glomerular Filtration Rate 195 ML/MIN Phenytoin (Dilantin) Level 12.2 MCG/ML IMAGING: Chest X-Ray 12/03/17 0600 Signed Impressions: Service Date/Time: December 03:33 - CONCLUSION: Increase in size of cardiac silhouette since November 30. Cannot exclude pericardial effusion. Mild basilar and perihilar airspace disease. Fidel Myers MD PHYSICAL EXAMINATION GENERAL: No distress. Has eyes open, but does not communicate otherwise. He appears alert. HEAD, EYES, EARS, NOSE, AND THROAT: The pupils are reactive. No icterus. Oropharynx mucosa moist. NECK: No swelling or adenopathy. Tracheostomy tube in place LUNGS: Bilateral rhonchi. Moving air. HEART: Regular S1 and S2 without audible murmurs. ABDOMEN: Soft. (+) BS. EXTREMITIES: No clubbing, cyanosis or edema. SKIN: No diffuse rash. NEUROLOGIC: Unable to fully assess. PSYCH: Unable to fully assess. IMPRESSION 1. Multiple drug-resistant sputum culture now identified as ESBL e. coli and pseudomonas. Pneumonia vs tracheobronchitis or colonization. 2. Sepsis on admission. 3. Chronic tracheostomy. RECOMMEND: 1. Continue piperacillin/tazobactam and treat for 7 days. 2. Continue Vancomycin. 3. Repeat the sputum culture. 4. Monitor clinical status. Wesly Rosado MD Dec 03, 2017 13:19
--- NOTE | 2017-12-03 19:11 | HHI.CCPN ---
Subjective Remarks/Hospital Course This is a 32-year-old AA male. Date of admission 11/30/2017. 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 He has known seizure disorder on phenytoin and levetiracetam. Patient presents from [facility] with onset of pyrexia, tachycardia and change in mental status. Patient is to show preservation 103 with a heart rate in the 190s. Patient received 3 L normal saline bolus was started on vancomycin and piperacillin/tazobactam central was placed in the right femoral region secondary to poor prophylaxis. He also received acetaminophen. His fevers abated. Heart rate currently 120s. 12/01 No events overnight. On TP's with 35% FIO2. Afebrile. 12/02: Afebrile. Resting in bed in no acute distress. On T piece at 6 L/35%. Sputum with schmitt resistant Pseudomonas. Subjective 12/03: Afebrile. Copious secretions from tracheostomy site. Remains on T piece 6 L is 35%. Sputum with ESBL positive Escherichia coli/resistant Pseudomonas. Remains on piperacillin/tazobactam. Tolerating tube feeding. Positive BM. Objective Vital Signs Date Time Temp Pulse Resp B/P (MAP) Pulse Ox O2 Delivery O2 Flow Rate FiO2 12/03/17 18:00 77 8 104/60 (75) 100 12/03/17 16:00 98.7 12/03/17 09:02 T-piece 35 12/03/17 07:00 35.00 Intake and Output 12/03/17 12/03/17 12/04/17 08:00 16:00 00:00 Intake Total 1452 ml 715 ml 1580 ml Output Total 1500 ml 1000 ml Balance -48 ml 715 ml 580 ml Result Diagram: 12/03/17 0530 12/03/17 0530 Imaging Last Impressions Chest X-Ray 12/03/17 0600 Signed Impressions: Service Date/Time: December 03:33 - CONCLUSION: Increase in size of cardiac silhouette since November 30. Cannot exclude pericardial effusion. Mild basilar and perihilar airspace disease. Fidel Myers MD Objective Remarks GENERAL: 32-year-old AA male currently on T piece in no acute distress SKIN: Warm and dry. No rash HEAD: Atraumatic. Normocephalic. EYES: Pupils equal and round about 3 mm bilaterally and reactive. No scleral icterus. No injection or drainage. ENT: No nasal bleeding or discharge. Mucous membranes pink and moist. NECK: Trachea midline. No JVD. Tracheostomy is clean dry and intact CARDIOVASCULAR: RRR. S1, S2 no S4. Without murmur RESPIRATORY: Clear to auscultation. Breath sounds equal bilaterally. GASTROINTESTINAL: Abdomen soft, non-tender, nondistended. GJ tube site is clean dry and intact MUSCULOSKELETAL: Extremities without edema. Contracted bilateral upper extremities.. NEUROLOGICAL: Status post tracheostomy. Positive gag. Positive corneal reflex. Withdraws to pain. Vascular Central Line Catheter: Yes Assessment to: Continue Date of Insertion: Nov 30, 2017 Line: Central Venous Catheter Side: Right Location: Femoral A/P Assessment and Plan Neuro/Psych: Anoxic brain injury Seizure disorder NOS Continue levetiracetam 1000 mg twice a day and phenytoin 200 mg twice a day Check phenytoin level in a.m. was 12.2 Acetaminophen 650 mg by G-tube every 6 hours when necessary fever Oxycodone 5 mill grams every 6 hours. As needed pain/home medication Baclofen 20 mg 3 times a day muscle spasticity Seizure precautions CV: Essential hypertension History of dyslipidemia Lactic acidosis Continue home medications of amlodipine 10 mg daily, metoprolol succinate 50 mill grams twice a day and hydralazine 50 mg every 8 hours Currently normal saline at 84 cc an hour. We'll discontinue today 12/02 Troponin less than 0.02 admission Lactate 10.2 admission. Serial lactates every 6 hours until clear. Received 3 L normal saline in ED. Resp: Chronic respiratory failure Currently on TPs maintain saturations greater than equal to 92%. Currently at 6 L Wean to trach collar as tolerated Chest x-ray 11/30 revealed no acute findings Albuterol/ipratropium aerosols every 6 hours with albuterol aerosols every 2 hours. Dyspnea GI: Gastroesophageal reflux disease Elevated AST Vital 1.5 goal 90 cc an hour per J-tube Lansoprazole 30 mg daily for GI prophylaxis. On famotidine 20 twice a day and ranitidine [facility] Docusate sodium/senna 1 tablet twice a day for bowel regimen : Tello catheter if indicated for accurate I's and O's in a critically ill patient Endo: Diabetes mellitus History of pancreatitis Sliding-scale insulin with Novulin R median protocol Accu 6 every 6 hours to maintain euglycemia Renal: Acute kidney injury Aggressive hydration. Monitor urine output Accurate I's and O's Repeat BMP in a.m. Likely prerenal Heme: Normocytic anemia Chronic Apixaban use Resumed apixaban 5 mg twice a day Monitor CBC daily. Follow trends ID: Sputum with multidrug-resistant Pseudomonas/ESBL positive Escherichia coli Consult infectious disease. Droplet precautions. Contact precautions. 11/30 Blood cultures 2, UA no growth to date, sputum MDRO Pseudomonas, gram-negative willa Urine Legionella, pneumococcal and influenza all negative Piperacillin/tazobactam and vancomycin day #4 FEN: Replace electrolytes as clinically indicated Holding home dose of potassium chloride 20 mEq twice a day MSK: Muscle contractions PT/OT evaluate and treat Access - Right femoral central line placed 11/30 by ED physician Prophylaxis - GI - lansoprazole - DVT - SCD/ Apixaban Level II follow-up Teddy Maya MD Dec 03, 2017 19:11
[2017-12-03] MEDS: RESP: SODIUM CHLORIDE 3% 4 ML NEB NEB SCH (22:53)
[2017-12-04] VITALS (21 sets, daily range): BP systolic 88–123; BP diastolic 49–80; PULSE 61–86; RESP 2–31; TEMP 98.4–99.8; O2SAT 96–100
[2017-12-04] MEDS ORDERED: PHARMACY ORDERED LAB ONE (00:45)
[2017-12-04] MEDS: RESP: ALBUTEROL 2.5 MG/IPRATROPIUM 0.5 MG NEB (SCH) INH ×4 (03:02→20:19)
[2017-12-04] MEDS: RESP: SODIUM CHLORIDE 3% 4 ML NEB NEB SCH ×4 (03:02→20:19)
[2017-12-04] MEDS: VANCOMYCIN INJ 1,500 MG in SODIUM CHLORID 0.9% 500 ML INJ 500 ML IV SCH ×2 (03:14→13:25)
[2017-12-04] MEDS: CHLORHEXIDINE GLUCONATE 2 % 1 PACK (2 CLOTHS) TOP SCH (03:14)
[2017-12-04] MEDS: PIPERACIL-TAZO 4.5 GM PREMIX 100 ML IV SCH ×4 (03:14→21:10)
[2017-12-04] MEDS: hydrALAZINE HCL 50 MG TAB G-TUBE SCH ×3 (05:30→21:10)
[2017-12-04] MEDS: cloNIDine HCL 0.1 MG TAB PO SCH ×3 (05:31→21:11)
[2017-12-04] MEDS: INSULIN NovoLIN REGULAR SUPPLEMENTAL SCALE SQ SCH ×4 (05:31→17:03)
[2017-12-04] MEDS: FREE WATER G-TUBE SCH ×4 (05:31→17:03)
[2017-12-04 06:09] LABS: AUTOMATED NEUTROPHIL # 2.3 TH/MM3 (1.8-7.7); BASOPHIL % 0.4 % (0.0-2.0); EOSINOPHIL # 0.1 TH/MM3 (0-0.4); EOSINOPHIL % 2.7 % (0.0-4.0); HEMATOCRIT 35.5 % (39.0-51.0); HEMOGLOBIN 12.1 GM/DL (13.0-17.0); LYMPH % 27.9 % (9.0-44.0); LYMPHOCYTE # 1.2 TH/MM3 (1.0-4.8); MEAN CELL VOLUME 90.8 FL (80.0-100.0); MEAN CORPUSCULAR HEMOGLOBIN 30.9 PG (27.0-34.0); MEAN CORPUSCULAR HGB CONC 34.1 % (32.0-36.0); MEAN PLATELET VOLUME 9.1 FL (7.0-11.0); MONOCYTE # 0.5 TH/MM3 (0-0.9); PLATELET COUNT 159 TH/MM3 (150-450); RED BLOOD COUNT 3.91 MIL/MM3 (4.50-5.90); RED CELL DISTRIBUTION WIDTH 14.1 % (11.6-17.2); WHITE BLOOD COUNT 4.2 TH/MM3 (4.0-11.0)
[2017-12-04 06:27] LABS: ALBUMIN 2.6 GM/DL (3.4-5.0); AST (GOT) 26 U/L (15-37); BLOOD UREA NITROGEN 8 MG/DL (7-18); CALCIUM 7.9 MG/DL (8.5-10.1); CHLORIDE 108 MEQ/L (98-107); GLOMERULAR FILTRATION RATE 192 ML/MIN (>89); GLUCOSE,RANDOM 119 MG/DL (74-106); MAGNESIUM 2.2 MG/DL (1.5-2.5); SODIUM (NA) 142 MEQ/L (136-145)
[2017-12-04 06:30] LABS: ALKALINE PHOSPHATASE 121 U/L (45-117); ALT (GPT) 48 U/L (12-78); PHOSPHORUS 2.8 MG/DL (2.5-4.9); TOTAL BILIRUBIN ADULT 0.2 MG/DL (0.2-1.0); TOTAL PROTEIN 6.4 GM/DL (6.4-8.2)
[2017-12-04] MEDS: BACLOFEN 20 MG TAB G-TUBE SCH ×3 (08:11→17:03)
[2017-12-04] MEDS: APIXABAN 5 MG TABLET G-TUBE SCH ×2 (08:11→21:11)
[2017-12-04] MEDS: ARTIFICIAL TEARS OPTH SOLN 15 ML BTL EACH EYE SCH ×3 (08:12→17:03)
[2017-12-04] MEDS: HYOSCYAMINE SOLN 0.125 MG/ML 15 ML BTL G-TUBE SCH ×2 (08:12→21:10)
[2017-12-04] MEDS: levETIRAcetam 500 MG/5 ML UDC G-TUBE SCH ×2 (08:12→21:00)
[2017-12-04] MEDS: LANSOPRAZOLE SOLUTAB 30 MG TAB G-TUBE SCH (08:12)
[2017-12-04] MEDS: LORATADINE 10 MG TAB G-TUBE SCH (08:12)
[2017-12-04] MEDS: SODIUM CHLORIDE 0.9% FLUSH 10 ML FLUSH IV FLUSH SCH ×2 (08:13→21:12)
[2017-12-04] MEDS: PHENYTOIN SUSP 100 MG/4 ML CUP PO SCH ×2 (08:13→21:19)
[2017-12-04] MEDS: DOCUSATE SODIUM 50 MG/SENNA 8.6 MG TAB PO SCH ×2 (08:13→21:00)
[2017-12-04] MEDS: METOPROLOL TARTRATE 50 MG TAB PO SCH ×2 (09:00→21:11)
--- NOTE | 2017-12-04 09:28 | HHI.CCPN ---
Subjective Remarks/Hospital Course This is a 32-year-old AA male. Date of admission 11/30/2017. 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 He has known seizure disorder on phenytoin and levetiracetam. Patient presents from [facility] with onset of pyrexia, tachycardia and change in mental status. Patient is to show preservation 103 with a heart rate in the 190s. Patient received 3 L normal saline bolus was started on vancomycin and piperacillin/tazobactam central was placed in the right femoral region secondary to poor prophylaxis. He also received acetaminophen. His fevers abated. Heart rate currently 120s. 12/01 No events overnight. On TP's with 35% FIO2. Afebrile. 12/02: Afebrile. Resting in bed in no acute distress. On T piece at 6 L/35%. Sputum with schmitt resistant Pseudomonas. 12/03: Afebrile. Copious secretions from tracheostomy site. Remains on T piece 6 L is 35%. Sputum with ESBL positive Escherichia coli/resistant Pseudomonas. Remains on piperacillin/tazobactam. Tolerating tube feeding. Positive BM. Subjective 12/04: Afebrile. Continues with copious reddish-brown secretions from ET tube. Remains on TP 6 L 35%. Remains on piperacillin/tazobactam. Tolerating tube feeding. Positive BM. Objective Vital Signs Date Time Temp Pulse Resp B/P (MAP) Pulse Ox O2 Delivery O2 Flow Rate FiO2 12/04/17 06:00 73 12/04/17 04:00 98.7 16 101/54 (70) 97 12/03/17 20:06 T-piece 35 12/03/17 19:00 35.00 Intake and Output 12/04/17 12/04/17 12/05/17 08:00 16:00 00:00 Intake Total 2147 ml Output Total 650 ml Balance 1497 ml Result Diagram: 12/04/17 0512 12/04/17 0512 Other Results Microbiology Date/Time Source Procedure Growth Status 11/30/17 08:21 Blood Peripheral Aerobic Blood Culture - Preliminary NO GROWTH IN 3 DAYS Resulted 11/30/17 08:21 Blood Peripheral Anaerobic Blood Culture - Preliminary NO GROWTH IN 3 DAYS Resulted 12/03/17 14:10 Sputum Endotracheal Gram Stain Pending Received 12/03/17 14:10 Sputum Endotracheal Sputum Culture Pending Received 11/30/17 10:00 Urine Other Legionella Antigen - Final PRESUMPTIVE NEGATIVE FOR LEGIONELLA P... Complete 11/30/17 10:00 Urine Other Streptococcus pneumoniae Antigen (M - Final PRESUMPTIVE NEGATIVE FOR STREPTOCOCCU... Complete Imaging Last Impressions Chest X-Ray 12/03/17 0600 Signed Impressions: Service Date/Time: December 03:33 - CONCLUSION: Increase in size of cardiac silhouette since November 30. Cannot exclude pericardial effusion. Mild basilar and perihilar airspace disease. Fidel Myers MD Objective Remarks GENERAL: 32-year-old AA male currently on T piece in no acute distress SKIN: Warm and dry. No rash HEAD: Atraumatic. Normocephalic. EYES: Pupils equal and round about 3 mm bilaterally and reactive. No scleral icterus. No injection or drainage. ENT: No nasal bleeding or discharge. Mucous membranes pink and moist. NECK: Trachea midline. No JVD. Tracheostomy is clean dry and intact CARDIOVASCULAR: RRR. S1, S2 no S4. Without murmur RESPIRATORY: Clear to auscultation. Breath sounds equal bilaterally. GASTROINTESTINAL: Abdomen soft, non-tender, nondistended. GJ tube site is clean dry and intact MUSCULOSKELETAL: Extremities without edema. Contracted bilateral upper extremities.. NEUROLOGICAL: Status post tracheostomy. Positive gag. Positive corneal reflex. Withdraws to pain. Urinary Catheter: No Assessment to: Continue Vascular Central Line Catheter: Yes Assessment to: Continue Date of Insertion: Nov 30, 2017 Line: Central Venous Catheter Side: Right Location: Femoral A/P Assessment and Plan Neuro/Psych: Anoxic brain injury Seizure disorder NOS Continue levetiracetam 1000 mg twice a day and phenytoin 200 mg twice a day Check phenytoin level in a.m. was 12.2 Acetaminophen 650 mg by G-tube every 6 hours when necessary fever Oxycodone 5 mill grams every 6 hours. As needed pain/home medication Baclofen 20 mg 3 times a day muscle spasticity Seizure precautions CV: Essential hypertension History of dyslipidemia Lactic acidosis Continue home medications of amlodipine 10 mg daily, metoprolol succinate 50 mill grams twice a day and hydralazine 50 mg every 8 hours Currently normal saline at 84 cc an hour. We'll discontinue today 12/02 Troponin less than 0.02 admission Lactate 10.2 admission. Serial lactates every 6 hours until clear. Received 3 L normal saline in ED. Resp: Chronic respiratory failure Currently on TPs maintain saturations greater than equal to 92%. Currently at 6 L Wean to trach collar as tolerated Chest x-ray 11/30 revealed no acute findings Albuterol/ipratropium aerosols every 6 hours with albuterol aerosols every 2 hours. Dyspnea GI: Gastroesophageal reflux disease Elevated AST Vital 1.5 goal 90 cc an hour per J-tube Lansoprazole 30 mg daily for GI prophylaxis. On famotidine 20 twice a day and ranitidine 150 mg [facility] a [facility] at shelter Docusate sodium/senna 1 tablet twice a day for bowel regimen : Tello catheter if indicated for accurate I's and O's in a critically ill patient Endo: Diabetes mellitus History of pancreatitis Sliding-scale insulin with Novulin R median protocol Accu 6 every 6 hours to maintain euglycemia Renal: Acute kidney injury Aggressive hydration. Monitor urine output Accurate I's and O's Repeat BMP in a.m. Likely prerenal Heme: Normocytic anemia Chronic Apixaban use Resumed apixaban 5 mg twice a day Monitor CBC daily. Follow trends ID: Sputum with multidrug-resistant Pseudomonas/ESBL positive Escherichia coli MRSA positive Consult infectious disease. Droplet precautions. Contact precautions. 11/30 Blood cultures 2, UA no growth to date, sputum MDRO Pseudomonas, gram-negative willa, ESBL positive Escherichia coli Urine Legionella, pneumococcal and influenza all negative Piperacillin/tazobactam and vancomycin day #5 Mupirocin twice a day to affected areas for universal Protocol decolonization of [facility] FEN: Replace electrolytes as clinically indicated Holding home dose of potassium chloride 20 mEq twice a day. Resume 2/3 MSK: Muscle contractions PT/OT evaluate and treat Access - Right femoral central line placed 11/30 by ED physician Prophylaxis - GI - lansoprazole - DVT - SCD/ Apixaban Level II follow-up Teddy Maya MD Dec 04, 2017 09:28
[2017-12-04] MEDS ORDERED: POTASSIUM CHLOR 40 MEQ PREMIX 100 ML IV ONE (09:30)
--- NOTE | 2017-12-04 12:21 | HHI.IDPN ---
Note Infectious Disease Note Patient in no distress. Spitting up clear oral secretions. Involuntary lips movements with mouth closed. Afebrile. 32-year-old black male who presented to the emergency department from a nursing care facility. The patient has had brain trauma with anoxic encephalopathy. He has chronic tracheostomy and PEG. The patient was sent to the emergency department because he was tachycardic and diaphoretic. He had temperature of 100.4 degrees and heart rate of 121, respiratory rate 28. Lactic acid level was 10.6. PAST MEDICAL HISTORY 1. Anoxic encephalopathy following cardiac arrest. 2. Tracheostomy and PEG tube placement in July 2015. 3. Seizure disorder. 4. Diabetes mellitus. 5. History of pancreatitis. 6. Gastroesophageal reflux disease. 7. 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 ALLERGIES No known drug allergies. MEDICATIONS 1. Vancomycin. 2. Piperacillin/tazobactam. OBJECTIVE: Vital Signs Date Time Temp Pulse Resp B/P (MAP) Pulse Ox O2 Delivery O2 Flow Rate FiO2 12/04/17 09:44 97 T-piece 35 12/04/17 06:00 73 12/04/17 04:00 67 12/04/17 04:00 98.7 67 16 101/54 (70) 97 12/04/17 02:00 72 12/04/17 00:00 68 12/04/17 00:00 99.0 68 17 113/62 (79) 99 12/03/17 22:00 67 12/03/17 20:06 99 T-piece 35 12/03/17 20:00 99.1 68 17 107/67 (80) 99 12/03/17 20:00 68 12/03/17 19:00 100 T-Piece 35.00 12/03/17 18:00 77 8 104/60 (75) 100 12/03/17 17:00 73 4 94/50 (65) 100 12/03/17 16:00 98.7 65 16 103/53 (70) 97 12/03/17 15:00 66 22 108/55 (72) 98 12/03/17 14:00 111 15 137/69 (91) 98 12/03/17 14:00 111 15 137/69 (91) 98 12/03/17 13:00 74 25 105/57 (73) 98 12/03/17 13:00 74 25 105/57 (73) 98 Laboratory Tests Test 12/03/17 05:30 12/04/17 05:12 White Blood Count 4.0 TH/MM3 4.2 TH/MM3 Red Blood Count 3.79 MIL/MM3 3.91 MIL/MM3 Hemoglobin 11.7 GM/DL 12.1 GM/DL Hematocrit 34.4 % 35.5 % Mean Corpuscular Volume 90.7 FL 90.8 FL Mean Corpuscular Hemoglobin 30.9 PG 30.9 PG Mean Corpuscular Hemoglobin Concent 34.1 % 34.1 % Red Cell Distribution Width 14.6 % 14.1 % Platelet Count 165 TH/MM3 159 TH/MM3 Mean Platelet Volume 9.1 FL 9.1 FL Neutrophils (%) (Auto) 53.8 % 56.0 % Lymphocytes (%) (Auto) 30.6 % 27.9 % Monocytes (%) (Auto) 12.9 % 13.0 % Eosinophils (%) (Auto) 2.3 % 2.7 % Basophils (%) (Auto) 0.4 % 0.4 % Neutrophils # (Auto) 2.2 TH/MM3 2.3 TH/MM3 Lymphocytes # (Auto) 1.2 TH/MM3 1.2 TH/MM3 Monocytes # (Auto) 0.5 TH/MM3 0.5 TH/MM3 Eosinophils # (Auto) 0.1 TH/MM3 0.1 TH/MM3 Basophils # (Auto) 0.0 TH/MM3 0.0 TH/MM3 CBC Comment DIFF FINAL DIFF FINAL Differential Comment Laboratory Tests Test 12/03/17 05:30 12/04/17 05:12 Blood Urea Nitrogen 7 MG/DL 8 MG/DL Creatinine 0.59 MG/DL 0.60 MG/DL Random Glucose 87 MG/DL 119 MG/DL Total Protein 6.5 GM/DL 6.4 GM/DL Albumin 2.7 GM/DL 2.6 GM/DL Calcium Level 8.0 MG/DL 7.9 MG/DL Phosphorus Level 3.0 MG/DL 2.8 MG/DL Magnesium Level 2.2 MG/DL 2.2 MG/DL Alkaline Phosphatase 115 U/L 121 U/L Aspartate Amino Transf (AST/SGOT) 34 U/L 26 U/L Alanine Aminotransferase (ALT/SGPT) 49 U/L 48 U/L Total Bilirubin 0.2 MG/DL 0.2 MG/DL Sodium Level 143 MEQ/L 142 MEQ/L Potassium Level 3.8 MEQ/L 3.6 MEQ/L Chloride Level 108 MEQ/L 108 MEQ/L Carbon Dioxide Level 29.3 MEQ/L 27.0 MEQ/L Anion Gap 6 MEQ/L 7 MEQ/L Estimat Glomerular Filtration Rate 195 ML/MIN 192 ML/MIN Microbiology Date/Time Source Procedure Growth Status 12/03/17 14:10 Sputum Endotracheal Gram Stain - Final Resulted 12/03/17 14:10 Sputum Endotracheal Sputum Culture Pending Resulted IMAGING: Chest X-Ray 12/03/17 0600 Signed Impressions: Service Date/Time: December 03:33 - CONCLUSION: Increase in size of cardiac silhouette since November 30. Cannot exclude pericardial effusion. Mild basilar and perihilar airspace disease. Fidel Myers MD PHYSICAL EXAMINATION GENERAL: No distress. Has eyes open, but does not communicate otherwise. He appears alert. HEAD, EYES, EARS, NOSE, AND THROAT: The pupils are reactive. No icterus. NECK: No swelling or adenopathy. Tracheostomy tube in place LUNGS: Bilateral rhonchi. Moving air. HEART: Regular S1 and S2 without audible murmurs. ABDOMEN: Soft. (+) BS. EXTREMITIES: No clubbing, cyanosis or edema. SKIN: No diffuse rash. NEUROLOGIC: Unable to fully assess. PSYCH: Unable to fully assess. IMPRESSION 1. Multiple drug-resistant sputum culture now identified as ESBL e. coli and pseudomonas. Pneumonia vs tracheobronchitis or colonization. 2. Sepsis on admission. 3. Chronic tracheostomy. Looks stable. RECOMMEND: 1. Continue piperacillin/tazobactam and treat for 7 days. 2. Continue Vancomycin 10 days. 3. Follow repeat sputum culture. 4. Monitor clinical status. Wesly Rosado MD Dec 04, 2017 12:21
--- NOTE | 2017-12-04 16:57 | ECHRPT ---
Indication: PERICARDIAL EFFUSION CONCLUSIONS Normal left ventricular size. Wall thickness is measured at the upper limits of normal. The left ventricular systolic function is normal with an estimated ejection fraction of 55%. Normal wall motion. Trace mitral valve regurgitation. BP: 101 / 54 HR: 67 Rhythm: MEASUREMENTS (Male / Female) Normal Values Technical Quality:Good 2D ECHO LV Diastolic Diameter PLAX 5.2 cm 4.2 - 5.9 / 3.9 - 5.3 cm LV Systolic Diameter PLAX 4.0 cm IVS Diastolic Thickness 1.0 cm 0.6 - 1.0 / 0.6 - 0.9 cm LVPW Diastolic Thickness 0.7 cm 0.6 - 1.0 / 0.6 - 0.9 cm LV Relative Wall Thickness 0.3 FINDINGS LEFT VENTRICLE Normal left ventricular size. Wall thickness is measured at the upper limits of normal. The left ventricular systolic function is normal with an estimated ejection fraction of 55%. Normal wall motion. RIGHT VENTRICLE Normal right ventricular size and systolic function. LEFT ATRIUM The left atrial size is normal. RIGHT ATRIUM The right atrial size is normal. ATRIAL SEPTUM Normal atrial septal thickness without atrial level shunting by limited color doppler interrogation. AORTA The aortic root and proximal ascending aorta are normal in size on limited imaging. MITRAL VALVE Trace mitral valve regurgitation. AORTIC VALVE Trileaflet aortic valve. No aortic valve stenosis or regurgitation. TRICUSPID VALVE Structurally normal tricuspid valve. No tricuspid valve stenosis or regurgitation. PULMONARY VALVE The pulmonary valve is not well visualized. VESSELS The inferior vena cava is normal in size. PERICARDIUM A moderate left sided pleural effusion is noted. There is a trivial pericardial effusion present. No hemodynamically significant echocardiographic features were observed (no pre-tamponade physiology). Pedro Angulo MD (Electronically Signed) Final Date:04 December 2017 16:56
[2017-12-04] MEDS: MUPIROCIN 2% OINT 1 APPLIC/GM SYR EACH NARE SCH (21:10)
[2017-12-05] VITALS (14 sets, daily range): BP systolic 97–126; BP diastolic 51–73; PULSE 51–91; RESP 8–36; TEMP 98.6–99.1; O2SAT 96–100
[2017-12-05] MEDS: PIPERACIL-TAZO 4.5 GM PREMIX 100 ML IV SCH ×4 (00:43→20:32)
[2017-12-05] MEDS: CHLORHEXIDINE GLUCONATE 2 % 1 PACK (2 CLOTHS) TOP SCH (00:43)
[2017-12-05] MEDS: VANCOMYCIN INJ 1,750 MG in SODIUM CHLORID 0.9% 500 ML INJ 500 ML IV SCH ×3 (00:43→23:46)
[2017-12-05] MEDS: RESP: ALBUTEROL 2.5 MG/IPRATROPIUM 0.5 MG NEB (SCH) INH ×4 (04:04→19:35)
[2017-12-05] MEDS: RESP: SODIUM CHLORIDE 3% 4 ML NEB NEB SCH ×6 (04:04→19:36)
[2017-12-05 04:28] LABS: BASOPHIL % 0.6 % (0.0-2.0); EOSINOPHIL # 0.1 TH/MM3 (0-0.4); EOSINOPHIL % 3.4 % (0.0-4.0); HEMATOCRIT 36.5 % (39.0-51.0); HEMOGLOBIN 12.4 GM/DL (13.0-17.0); LYMPH % 33.6 % (9.0-44.0); LYMPHOCYTE # 1.3 TH/MM3 (1.0-4.8); MEAN CELL VOLUME 90.9 FL (80.0-100.0); MEAN CORPUSCULAR HEMOGLOBIN 30.9 PG (27.0-34.0); MEAN PLATELET VOLUME 9.1 FL (7.0-11.0); MONO % 12.8 % (0.0-8.0); MONOCYTE # 0.5 TH/MM3 (0-0.9); NEUT % 49.6 % (16.0-70.0); PLATELET COUNT 184 TH/MM3 (150-450); RED BLOOD COUNT 4.02 MIL/MM3 (4.50-5.90); RED CELL DISTRIBUTION WIDTH 14.3 % (11.6-17.2)
[2017-12-05 04:33] LABS: BICARBONATE 27.9 MEQ/L (21.0-32.0); CALCIUM 7.9 MG/DL (8.5-10.1); CREATININE 0.68 MG/DL (0.60-1.30)
[2017-12-05] MEDS: hydrALAZINE HCL 50 MG TAB G-TUBE SCH ×3 (05:56→22:00)
[2017-12-05] MEDS: FREE WATER G-TUBE SCH ×5 (05:56→22:05)
[2017-12-05] MEDS: INSULIN NovoLIN REGULAR SUPPLEMENTAL SCALE SQ SCH ×5 (05:56→23:45)
[2017-12-05] MEDS: cloNIDine HCL 0.1 MG TAB PO SCH ×3 (05:57→22:00)
[2017-12-05] MEDS: DOCUSATE SODIUM 50 MG/SENNA 8.6 MG TAB PO SCH ×2 (09:00→20:33)
[2017-12-05] MEDS: MUPIROCIN 2% OINT 1 APPLIC/GM SYR EACH NARE SCH ×3 (09:00→20:32)
[2017-12-05] MEDS: levETIRAcetam 500 MG/5 ML UDC G-TUBE SCH ×2 (09:00→20:32)
[2017-12-05] MEDS: POTASSIUM CHLORIDE 20 MEQ PWD PACKET G-TUBE SCH (09:00)
--- NOTE | 2017-12-05 09:53 | HHI.CCPN ---
Subjective Remarks/Hospital Course This is a 32-year-old AA male. Date of admission 11/30/2017. 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 He has known seizure disorder on phenytoin and levetiracetam. Patient presents from [facility] with onset of pyrexia, tachycardia and change in mental status. Patient is to show preservation 103 with a heart rate in the 190s. Patient received 3 L normal saline bolus was started on vancomycin and piperacillin/tazobactam central was placed in the right femoral region secondary to poor prophylaxis. He also received acetaminophen. His fevers abated. Heart rate currently 120s. 12/01 No events overnight. On TP's with 35% FIO2. Afebrile. 12/02: Afebrile. Resting in bed in no acute distress. On T piece at 6 L/35%. Sputum with schmitt resistant Pseudomonas. 12/03: Afebrile. Copious secretions from tracheostomy site. Remains on T piece 6 L is 35%. Sputum with ESBL positive Escherichia coli/resistant Pseudomonas. Remains on piperacillin/tazobactam. Tolerating tube feeding. Positive BM. 2: Afebrile. Continues with copious reddish-brown secretions from 6.0 Shiley trach tube. Remains on TP 6 L 35%. Remains on piperacillin/tazobactam. Tolerating tube feeding. Positive BM. Subjective /3: Afebrile. Continues with copious secretions from trach. Currently on 6 L /28% FiO2. Tolerating tube feeds. Positive BM 4 Objective Vital Signs Date Time Temp Pulse Resp B/P (MAP) Pulse Ox O2 Delivery O2 Flow Rate FiO2 12/05/17 08:33 99 T-piece 6.00 28 12/05/17 06:00 74 12/05/17 04:00 98.6 24 115/65 (82) Intake and Output 12/05/17 12/05/17 12/06/17 08:00 16:00 00:00 Intake Total 1979.5 ml Output Total 1250 ml Balance 729.5 ml Result Diagram: 12/05/17 0355 12/05/17 0355 Other Results Microbiology Date/Time Source Procedure Growth Status 11/30/17 08:21 Blood Peripheral Aerobic Blood Culture - Preliminary NO GROWTH IN 4 DAYS Resulted 11/30/17 08:21 Blood Peripheral Anaerobic Blood Culture - Preliminary NO GROWTH IN 4 DAYS Resulted 12/03/17 14:10 Sputum Endotracheal Gram Stain - Final Resulted 12/03/17 14:10 Sputum Culture - Preliminary Gram Negative Tobin Resulted 11/30/17 10:00 Urine Other Legionella Antigen - Final PRESUMPTIVE NEGATIVE FOR LEGIONELLA P... Complete 11/30/17 10:00 Urine Other Streptococcus pneumoniae Antigen (M - Final PRESUMPTIVE NEGATIVE FOR STREPTOCOCCU... Complete Imaging Last Impressions Chest X-Ray 12/03/17 0600 Signed Impressions: Service Date/Time: December 03:33 - CONCLUSION: Increase in size of cardiac silhouette since November 30. Cannot exclude pericardial effusion. Mild basilar and perihilar airspace disease. Fidel Myers MD Objective Remarks GENERAL: 32-year-old AA male currently on T piece in no acute distress SKIN: Warm and dry. No rash HEAD: Atraumatic. Normocephalic. EYES: Pupils equal and round about 3 mm bilaterally and reactive. No scleral icterus. No injection or drainage. ENT: No nasal bleeding or discharge. Mucous membranes pink and moist. NECK: Trachea midline. No JVD. Tracheostomy is clean dry and intact CARDIOVASCULAR: RRR. S1, S2 no S4. Without murmur RESPIRATORY: Clear to auscultation. Breath sounds equal bilaterally. GASTROINTESTINAL: Abdomen soft, non-tender, nondistended. GJ tube site is clean dry and intact MUSCULOSKELETAL: Extremities without edema. Contracted bilateral upper extremities.. NEUROLOGICAL: Status post tracheostomy. Positive gag. Positive corneal reflex. Withdraws to pain. Vascular Central Line Catheter: Yes Assessment to: Remove Date of Insertion: Nov 30, 2017 Date of Removal: Dec 05, 2017 Line: Central Venous Catheter Side: Right Location: Femoral A/P Assessment and Plan Neuro/Psych: Anoxic brain injury Seizure disorder NOS Continue levetiracetam 1000 mg twice a day and phenytoin 200 mg twice a day Check phenytoin level in a.m. was 12.2. Recheck 2/4 AM Acetaminophen 650 mg by G-tube every 6 hours when necessary fever Oxycodone 5 mill grams every 6 hours. As needed pain/home medication Baclofen 20 mg 3 times a day muscle spasticity Seizure precautions CV: Essential hypertension History of dyslipidemia Lactic acidosis Continue home medications of amlodipine 10 mg daily, metoprolol tartrate 50 mill grams twice a day and hydralazine 50 mg every 8 hours Continue on clonidine 0.1 mg by mouth 3 times a day IV fluids discontinued. Furosemide 40 mg IV 1 now with pleural effusion left side Troponin less than 0.02 admission Lactate 10.2 admission. Serial lactates every 6 hours until clear. Received 3 L normal saline in ED. Echocardiogram revealed EF 55%. Moderate left effusion. Trivial pericardial effusion. Resp: Chronic respiratory failure Currently on TPs maintain saturations greater than equal to 92%. Currently at 6 L 28% Wean to trach collar as tolerated Chest x-ray 11/30 revealed no acute findings Albuterol/ipratropium aerosols every 6 hours with albuterol aerosols every 2 hours. Dyspnea Hypertonic saline aerosols every 6 hours thin secretions along with guaifenesin liquid 400 mg every 8 hours GI: Gastroesophageal reflux disease Elevated AST Vital 1.5 goal 90 cc an hour per J-tube Lansoprazole 30 mg daily for GI prophylaxis. On famotidine 20 twice a day and ranitidine 150 mg twice a day at group home Docusate sodium/senna 1 tablet twice a day for bowel regimen : Tello catheter if indicated for accurate I's and O's in a critically ill patient Endo: Diabetes mellitus History of pancreatitis Sliding-scale insulin with Novulin R medium protocol Accu checks 6 every 6 hours to maintain euglycemia Renal: Acute kidney injury - resolved Aggressive hydration. Monitor urine output Accurate I's and O's Repeat BMP in a.m. Likely prerenal Heme: Normocytic anemia Chronic Apixaban use Resumed apixaban 5 mg twice a day Monitor CBC daily. Follow trends ID: Sputum with multidrug-resistant Pseudomonas/ESBL positive Escherichia coli MRSA positive Consult infectious disease. Droplet precautions. Contact precautions. 11/30 Blood cultures 2, UA no growth to date, sputum MDRO Pseudomonas, gram-negative tobin, ESBL positive Escherichia coli Urine Legionella, pneumococcal and influenza all negative Piperacillin/tazobactam and vancomycin day #6 Mupirocin twice a day to affected areas for universal Protocol decolonization of [employer] FEN: Replace electrolytes as clinically indicated Holding home dose of potassium chloride 20 mEq twice a day. Resumed 2/3 Free water decreased to 150 cc every 6 hours MSK: Muscle contractions PT/OT evaluate and treat Continue baclofen as above Access - Right femoral central line placed 11/30 by ED physician. Discontinued 12/05 Prophylaxis - GI - lansoprazole - DVT - SCD/ Apixaban Level II follow-up Teddy Maya MD Dec 05, 2017 09:53
[2017-12-05] MEDS ORDERED: POTASSIUM CHLORIDE 20 MEQ PWD PACKET G-TUBE ONE (10:00)
[2017-12-05] MEDS ORDERED: FUROSEMIDE 40 MG/4 ML VIAL IV PUSH ONE (10:00)
[2017-12-05] MEDS: LORATADINE 10 MG TAB G-TUBE SCH (11:05)
[2017-12-05] MEDS: PHENYTOIN SUSP 100 MG/4 ML CUP PO SCH ×2 (11:05→20:33)
[2017-12-05] MEDS: METOPROLOL TARTRATE 50 MG TAB PO SCH ×2 (11:06→20:33)
[2017-12-05] MEDS: APIXABAN 5 MG TABLET G-TUBE SCH ×2 (11:07→20:32)
[2017-12-05] MEDS: SODIUM CHLORIDE 0.9% FLUSH 10 ML FLUSH IV FLUSH SCH ×2 (11:07→20:33)
[2017-12-05] MEDS: BACLOFEN 20 MG TAB G-TUBE SCH ×3 (11:07→17:22)
[2017-12-05] MEDS: HYOSCYAMINE SOLN 0.125 MG/ML 15 ML BTL G-TUBE SCH ×2 (11:08→20:32)
[2017-12-05] MEDS: ARTIFICIAL TEARS OPTH SOLN 15 ML BTL EACH EYE SCH ×3 (11:08→17:22)
[2017-12-05] MEDS: LANSOPRAZOLE SOLUTAB 30 MG TAB G-TUBE SCH (11:14)
[2017-12-05] MEDS: ACETAMINOPHEN 650 MG/20.3 ML UDC G-TUBE PRN (14:18)
[2017-12-05] MEDS: guaiFENesin SOLUTION 200 MG/10 ML CUP PO SCH ×2 (14:18→22:05)
[2017-12-05] MEDS: MORPHINE SULFATE 2 MG/ML INJ IV PUSH PRN (14:18)
[2017-12-06] VITALS (14 sets, daily range): BP systolic 96–120; BP diastolic 53–67; PULSE 53–106; RESP 15–29; TEMP 98.3–100.1; O2SAT 98–100
[2017-12-06] MEDS: PIPERACIL-TAZO 4.5 GM PREMIX 100 ML IV SCH ×4 (02:40→21:23)
[2017-12-06] MEDS: RESP: ALBUTEROL 2.5 MG/IPRATROPIUM 0.5 MG NEB (SCH) INH ×4 (03:04→19:40)
[2017-12-06] MEDS: RESP: SODIUM CHLORIDE 3% 4 ML NEB NEB SCH ×5 (03:04→19:40)
[2017-12-06] MEDS: CHLORHEXIDINE GLUCONATE 2 % 1 PACK (2 CLOTHS) TOP SCH (04:00)
[2017-12-06] MEDS: guaiFENesin SOLUTION 200 MG/10 ML CUP PO SCH ×3 (04:56→21:24)
[2017-12-06] MEDS: FREE WATER G-TUBE SCH ×3 (04:56→17:18)
[2017-12-06] MEDS: cloNIDine HCL 0.1 MG TAB PO SCH ×3 (04:57→21:24)
[2017-12-06] MEDS: INSULIN NovoLIN REGULAR SUPPLEMENTAL SCALE SQ SCH ×3 (04:57→17:18)
[2017-12-06] MEDS: hydrALAZINE HCL 50 MG TAB G-TUBE SCH ×3 (04:57→21:24)
--- NOTE | 2017-12-06 05:01 | RADRPT ---
EXAM DATE/TIME: 12/06/2017 04:14 [facility] COMPARISON: CHEST SINGLE AP, December 03, 2017, 3:33. INDICATIONS : Shortness of breath, possible pulmonary disease. MEDICAL HISTORY : Myocardial infarction. Hypercholesterolemia. Hypertension. Anoxic brain injury SURGICAL HISTORY : Tracheostomy Peg tube ENCOUNTER: Subsequent ACUITY: 4 - 6 days PAIN SCORE: Non-responsive. LOCATION: Bilateral chest FINDINGS: Tracheostomy tube and cardiomegaly again noted. There is patchy airspace disease bilaterally at the l parker bases. CONCLUSION: No significant change has occurred. Gary Ross MD on December 06, 2017 at 4:59 Board Certified Radiologist. This report was verified electronically.
[2017-12-06 05:48] LABS: AUTOMATED NEUTROPHIL # 2.6 TH/MM3 (1.8-7.7); BASOPHIL % 0.5 % (0.0-2.0); EOSINOPHIL # 0.1 TH/MM3 (0-0.4); EOSINOPHIL % 2.9 % (0.0-4.0); HEMATOCRIT 39.3 % (39.0-51.0); HEMOGLOBIN 13.6 GM/DL (13.0-17.0); LYMPH % 29.4 % (9.0-44.0); LYMPHOCYTE # 1.5 TH/MM3 (1.0-4.8); MEAN CELL VOLUME 90.7 FL (80.0-100.0); MEAN CORPUSCULAR HEMOGLOBIN 31.3 PG (27.0-34.0); MEAN CORPUSCULAR HGB CONC 34.5 % (32.0-36.0); MEAN PLATELET VOLUME 9.3 FL (7.0-11.0); MONO % 16.5 % (0.0-8.0); MONOCYTE # 0.8 TH/MM3 (0-0.9); NEUT % 50.7 % (16.0-70.0); PLATELET COUNT 208 TH/MM3 (150-450); RED BLOOD COUNT 4.33 MIL/MM3 (4.50-5.90); RED CELL DISTRIBUTION WIDTH 14.4 % (11.6-17.2); WHITE BLOOD COUNT 5.1 TH/MM3 (4.0-11.0)
[2017-12-06 06:09] LABS: BICARBONATE 29.7 MEQ/L (21.0-32.0); CALCIUM 8.7 MG/DL (8.5-10.1); CREATININE 0.83 MG/DL (0.60-1.30); MAGNESIUM 2.5 MG/DL (1.5-2.5)
[2017-12-06 06:11] LABS: PHENYTOIN (DILANTIN) 9.1 MCG/ML (10.0-20.0); PHOSPHORUS 3.1 MG/DL (2.5-4.9)
[2017-12-06] MEDS: LORATADINE 10 MG TAB G-TUBE SCH (08:37)
[2017-12-06] MEDS: MUPIROCIN 2% OINT 1 APPLIC/GM SYR EACH NARE SCH ×2 (08:37→21:23)
[2017-12-06] MEDS: LANSOPRAZOLE SOLUTAB 30 MG TAB G-TUBE SCH (08:37)
[2017-12-06] MEDS: BACLOFEN 20 MG TAB G-TUBE SCH ×3 (08:37→17:17)
[2017-12-06] MEDS: PHENYTOIN SUSP 100 MG/4 ML CUP PO SCH ×2 (08:38→21:26)
[2017-12-06] MEDS: levETIRAcetam 500 MG/5 ML UDC G-TUBE SCH ×2 (08:38→21:00)
[2017-12-06] MEDS: HYOSCYAMINE SOLN 0.125 MG/ML 15 ML BTL G-TUBE SCH ×2 (08:38→21:24)
[2017-12-06] MEDS: POTASSIUM CHLORIDE 20 MEQ PWD PACKET G-TUBE SCH (08:39)
[2017-12-06] MEDS: ARTIFICIAL TEARS OPTH SOLN 15 ML BTL EACH EYE SCH ×3 (08:39→17:18)
[2017-12-06] MEDS: METOPROLOL TARTRATE 50 MG TAB PO SCH ×2 (08:40→21:00)
[2017-12-06] MEDS: DOCUSATE SODIUM 50 MG/SENNA 8.6 MG TAB PO SCH ×2 (08:40→21:00)
[2017-12-06] MEDS: APIXABAN 5 MG TABLET G-TUBE SCH ×2 (08:44→21:23)
[2017-12-06] MEDS: SODIUM CHLORIDE 0.9% FLUSH 10 ML FLUSH IV FLUSH SCH ×2 (08:44→21:24)
[2017-12-06] MEDS: VANCOMYCIN INJ 1,750 MG in SODIUM CHLORID 0.9% 500 ML INJ 500 ML IV SCH (11:38)
[2017-12-06] MEDS ORDERED: PHARMACY ORDERED LAB ONE (12:45)
--- NOTE | 2017-12-06 19:33 | HHI.CCPN ---
Subjective Remarks/Hospital Course This is a 32-year-old AA male. Date of admission 11/30/2017. 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 He has known seizure disorder on phenytoin and levetiracetam. Patient presents from [facility] with onset of pyrexia, tachycardia and change in mental status. Patient is to show preservation 103 with a heart rate in the 190s. Patient received 3 L normal saline bolus was started on vancomycin and piperacillin/tazobactam central was placed in the right femoral region secondary to poor prophylaxis. He also received acetaminophen. His fevers abated. Heart rate currently 120s. 12/01 No events overnight. On TP's with 35% FIO2. Afebrile. 12/02: Afebrile. Resting in bed in no acute distress. On T piece at 6 L/35%. Sputum with schmitt resistant Pseudomonas. 12/03: Afebrile. Copious secretions from tracheostomy site. Remains on T piece 6 L is 35%. Sputum with ESBL positive Escherichia coli/resistant Pseudomonas. Remains on piperacillin/tazobactam. Tolerating tube feeding. Positive BM. 2/: Afebrile. Continues with copious reddish-brown secretions from 6.0 Shiley trach tube. Remains on TP 6 L 35%. Remains on piperacillin/tazobactam. Tolerating tube feeding. Positive BM. Subjective /3: Afebrile. Continues with copious secretions from trach. Currently on 6 L /28% FiO2. Tolerating tube feeds. Positive BM 4 12/06: Afebrile. No acute changes. Noted excessive secretions continued to emanate from tracheostomy site Objective Vital Signs Date Time Temp Pulse Resp B/P (MAP) Pulse Ox O2 Delivery O2 Flow Rate FiO2 12/06/17 18:00 57 12/06/17 16:00 98.7 15 97/53 (68) 98 12/06/17 08:04 T-piece 6.00 28 Intake and Output 12/06/17 12/06/17 12/07/17 08:00 16:00 00:00 Intake Total 1907.5 ml 710 ml 1316 ml Output Total 1100 ml 800 ml Balance 807.5 ml 710 ml 516 ml Result Diagram: 12/06/17 0435 12/06/17 0435 Imaging Last Impressions Chest X-Ray 12/03/17 0600 Signed Impressions: Service Date/Time: December 03:33 - CONCLUSION: Increase in size of cardiac silhouette since November 30. Cannot exclude pericardial effusion. Mild basilar and perihilar airspace disease. Fidel Myers MD Objective Remarks GENERAL: 32-year-old AA male currently on T piece with no apperance of acute distress SKIN: Warm and dry. No rash HEAD: Atraumatic. Normocephalic. EYES: Pupils equal and round about 3 mm bilaterally and reactive. No scleral icterus. No injection or drainage. ENT: No nasal bleeding or discharge. Mucous membranes pink and moist. NECK: Trachea midline. No JVD. Tracheostomy is clean dry and intact CARDIOVASCULAR: RRR. S1, S2 no S4. Without murmur RESPIRATORY: Clear to auscultation. Breath sounds equal bilaterally. GASTROINTESTINAL: Abdomen soft, non-tender, nondistended. GJ tube site is clean dry and intact MUSCULOSKELETAL: Extremities without edema. Contracted bilateral upper extremities.. NEUROLOGICAL: Status post tracheostomy. Positive gag. Positive corneal reflex. Withdraws to pain. Date of Insertion: Nov 30, 2017 Date of Removal: Dec 05, 2017 Line: Central Venous Catheter Side: Right Location: Femoral A/P Assessment and Plan Neuro/Psych: Anoxic brain injury Seizure disorder NOS Continue levetiracetam 1000 mg twice a day and phenytoin 200 mg twice a day Check phenytoin level in a.m. was 12.2. Recheck 2/4 AM Acetaminophen 650 mg by G-tube every 6 hours when necessary fever Oxycodone 5 mill grams every 6 hours. As needed pain/home medication Baclofen 20 mg 3 times a day muscle spasticity Seizure precautions CV: Essential hypertension History of dyslipidemia Lactic acidosis Continue home medications of amlodipine 10 mg daily, metoprolol tartrate 50 mill grams twice a day and hydralazine 50 mg every 8 hours Continue on clonidine 0.1 mg by mouth 3 times a day IV fluids discontinued. Furosemide 40 mg IV 1 now with pleural effusion left side Troponin less than 0.02 admission Lactate 10.2 admission. Serial lactates every 6 hours until clear. Received 3 L normal saline in ED. Echocardiogram revealed EF 55%. Moderate left effusion. Trivial pericardial effusion. Resp: Chronic respiratory failure Currently on TPs maintain saturations greater than equal to 92%. Currently at 6 L 28% Wean to trach collar as tolerated Chest x-ray 11/30 revealed no acute findings Albuterol/ipratropium aerosols every 6 hours with albuterol aerosols every 2 hours. Dyspnea Hypertonic saline aerosols every 6 hours thin secretions along with guaifenesin liquid 400 mg every 8 hours GI: Gastroesophageal reflux disease Elevated AST Vital 1.5 goal 90 cc an hour per J-tube Lansoprazole 30 mg daily for GI prophylaxis. On famotidine 20 twice a day and ranitidine 150 mg twice a day at [facility] Docusate sodium/senna 1 tablet twice a day for bowel regimen : Tello catheter if indicated for accurate I's and O's in a critically ill patient Endo: Diabetes mellitus History of pancreatitis Sliding-scale insulin with Novulin R medium protocol Accu checks 6 every 6 hours to maintain euglycemia Renal: Acute kidney injury - resolved Aggressive hydration. Monitor urine output Accurate I's and O's Repeat BMP in a.m. Likely prerenal Heme: Normocytic anemia Chronic Apixaban use Resumed apixaban 5 mg twice a day Monitor CBC daily. Follow trends ID: Sputum with multidrug-resistant Pseudomonas/ESBL positive Escherichia coli MRSA positive Consult infectious disease. Droplet precautions. Contact precautions. 11/30 Blood cultures 2, UA no growth to date, sputum MDRO Pseudomonas, gram-negative willa, ESBL positive Escherichia coli Urine Legionella, pneumococcal and influenza all negative Piperacillin/tazobactam and vancomycin day #6 Mupirocin twice a day to affected areas for universal Protocol decolonization of [facility] FEN: Replace electrolytes as clinically indicated Holding home dose of potassium chloride 20 mEq twice a day. Resumed 2/3 Free water decreased to 150 cc every 6 hours MSK: Muscle contractions PT/OT evaluate and treat Continue baclofen as above Access - Right femoral central line placed 11/30 by ED physician. Discontinued 2/3 Prophylaxis - GI - lansoprazole - DVT - SCD/ Apixaban Level II follow-up Physician Ruth Serna MD Dec 06, 2017 19:33
[2017-12-06] MEDS: CEFTOLOZANE-TAZOBACTAM INJ 1,500 MG in SODIUM CHLORIDE 0.9% INJ 100 ML IV SCH (22:13)
[2017-12-06] MEDS: LEVOFLOXACIN 750 MG PREMIX INJ 150 ML IV SCH (22:14)
[2017-12-07] VITALS (20 sets, daily range): BP systolic 99–129; BP diastolic 56–80; PULSE 57–82; RESP 17–31; TEMP 98.8–99.3; O2SAT 98–100
[2017-12-07] MEDS: VANCOMYCIN INJ 1,750 MG in SODIUM CHLORID 0.9% 500 ML INJ 500 ML IV SCH ×2 (00:58→14:09)
[2017-12-07] MEDS: RESP: SODIUM CHLORIDE 3% 4 ML NEB NEB SCH ×4 (03:12→20:44)
[2017-12-07] MEDS: RESP: ALBUTEROL 2.5 MG/IPRATROPIUM 0.5 MG NEB (SCH) INH ×4 (03:12→20:44)
[2017-12-07] MEDS: CHLORHEXIDINE GLUCONATE 2 % 1 PACK (2 CLOTHS) TOP SCH (04:00)
--- NOTE | 2017-12-07 04:09 | RADRPT ---
EXAM DATE/TIME: 12/07/2017 03:33 [facility] COMPARISON: CHEST SINGLE AP, December 06, 2017, 4:14. INDICATIONS : Shortness of breath, possible pulmonary disease. MEDICAL HISTORY : Myocardial infarction. Hypercholesterolemia. Hypertension. Anoxic brain injury SURGICAL HISTORY : Tracheostomy Peg tube ENCOUNTER: Subsequent ACUITY: 4 - 6 days PAIN SCORE: Non-responsive. LOCATION: Bilateral chest FINDINGS: Portable AP view of the chest demonstrates a normal-sized cardiac silhouette. Tracheostomy remains pr esent. Lungs are underinflated. No effusion or pneumothorax is identified. The bones and soft tissues demonstrate no acute finding. CONCLUSION: Stable chest x-ray. No acute finding is identified. Orlando Christianson MD on December 07, 2017 at 4:07 Board Certified Radiologist. This report was verified electronically.
[2017-12-07 05:05] LABS: AUTOMATED NEUTROPHIL # 2.8 TH/MM3 (1.8-7.7); BASOPHIL % 0.6 % (0.0-2.0); EOSINOPHIL # 0.1 TH/MM3 (0-0.4); HEMATOCRIT 41.2 % (39.0-51.0); HEMOGLOBIN 14.2 GM/DL (13.0-17.0); LYMPH % 30.9 % (9.0-44.0); LYMPHOCYTE # 1.7 TH/MM3 (1.0-4.8); MEAN CELL VOLUME 91.1 FL (80.0-100.0); MEAN CORPUSCULAR HEMOGLOBIN 31.4 PG (27.0-34.0); MEAN CORPUSCULAR HGB CONC 34.5 % (32.0-36.0); MEAN PLATELET VOLUME 9.1 FL (7.0-11.0); MONO % 14.9 % (0.0-8.0); MONOCYTE # 0.8 TH/MM3 (0-0.9); NEUT % 51.6 % (16.0-70.0); PLATELET COUNT 213 TH/MM3 (150-450); RED BLOOD COUNT 4.52 MIL/MM3 (4.50-5.90); RED CELL DISTRIBUTION WIDTH 14.4 % (11.6-17.2); WHITE BLOOD COUNT 5.5 TH/MM3 (4.0-11.0)
[2017-12-07 05:24] LABS: BICARBONATE 29.2 MEQ/L (21.0-32.0); CALCIUM 8.9 MG/DL (8.5-10.1); CREATININE 0.75 MG/DL (0.60-1.30)
[2017-12-07] MEDS: INSULIN NovoLIN REGULAR SUPPLEMENTAL SCALE SQ SCH ×4 (06:00→17:31)
[2017-12-07] MEDS: FREE WATER G-TUBE SCH ×4 (06:00→17:31)
[2017-12-07] MEDS: cloNIDine HCL 0.1 MG TAB PO SCH ×3 (06:00→21:27)
[2017-12-07] MEDS: hydrALAZINE HCL 50 MG TAB G-TUBE SCH ×3 (06:00→21:27)
[2017-12-07] MEDS: CEFTOLOZANE-TAZOBACTAM INJ 1,500 MG in SODIUM CHLORIDE 0.9% INJ 100 ML IV SCH ×3 (06:11→21:27)
[2017-12-07] MEDS: guaiFENesin SOLUTION 200 MG/10 ML CUP PO SCH ×3 (06:11→21:27)
[2017-12-07] MEDS: POTASSIUM CHLORIDE 20 MEQ PWD PACKET G-TUBE SCH (08:28)
[2017-12-07] MEDS: APIXABAN 5 MG TABLET G-TUBE SCH ×2 (08:28→21:27)
[2017-12-07] MEDS: levETIRAcetam 500 MG/5 ML UDC G-TUBE SCH ×2 (08:28→21:26)
[2017-12-07] MEDS: LANSOPRAZOLE SOLUTAB 30 MG TAB G-TUBE SCH (08:28)
[2017-12-07] MEDS: BACLOFEN 20 MG TAB G-TUBE SCH ×3 (08:28→17:31)
[2017-12-07] MEDS: PHENYTOIN SUSP 100 MG/4 ML CUP PO SCH ×2 (08:28→21:27)
[2017-12-07] MEDS: LORATADINE 10 MG TAB G-TUBE SCH (08:28)
[2017-12-07] MEDS: ARTIFICIAL TEARS OPTH SOLN 15 ML BTL EACH EYE SCH ×3 (08:29→17:31)
[2017-12-07] MEDS: MUPIROCIN 2% OINT 1 APPLIC/GM SYR EACH NARE SCH ×2 (08:29→21:28)
[2017-12-07] MEDS: SODIUM CHLORIDE 0.9% FLUSH 10 ML FLUSH IV FLUSH SCH ×2 (08:29→21:28)
[2017-12-07] MEDS: HYOSCYAMINE SOLN 0.125 MG/ML 15 ML BTL G-TUBE SCH ×2 (08:29→21:27)
[2017-12-07] MEDS: DOCUSATE SODIUM 50 MG/SENNA 8.6 MG TAB PO SCH ×2 (08:30→21:00)
[2017-12-07] MEDS: METOPROLOL TARTRATE 50 MG TAB PO SCH ×2 (08:30→21:27)
--- NOTE | 2017-12-07 12:07 | HHI.IDPN ---
Note Infectious Disease Note Patient in no distress. Spitting up clear oral secretions. Involuntary lips movements with mouth closed but not as much as before. Moderate marie secretions. Low grade fever. Sputum culture has Stenotrophomonas. 32-year-old black male who presented to the emergency department from a nursing care facility. The patient has had brain trauma with anoxic encephalopathy. He has chronic tracheostomy and PEG. The patient was sent to the emergency department because he was tachycardic and diaphoretic. He had temperature of 100.4 degrees and heart rate of 121, respiratory rate 28. Lactic acid level was 10.6. PAST MEDICAL HISTORY 1. Anoxic encephalopathy following cardiac arrest. 2. Tracheostomy and PEG tube placement in July 2015. 3. Seizure disorder. 4. Diabetes mellitus. 5. History of pancreatitis. 6. Gastroesophageal reflux disease. 7. 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 ALLERGIES No known drug allergies. MEDICATIONS 1. Vancomycin. 2. Zerbaxa. 3. Levaquin. OBJECTIVE: Vital Signs Date Time Temp Pulse Resp B/P (MAP) Pulse Ox O2 Delivery O2 Flow Rate FiO2 12/07/17 08:16 100 T-piece 28 12/07/17 06:00 82 12/07/17 04:00 98.9 81 31 128/69 (88) 100 12/07/17 04:00 81 12/07/17 02:00 74 12/07/17 00:00 98.8 74 30 112/69 (83) 98 12/07/17 00:00 74 12/06/17 22:00 69 12/06/17 20:00 62 12/06/17 20:00 98.3 62 21 110/64 (79) 99 12/06/17 19:40 98 T-piece 5.00 28 12/06/17 19:00 99 T-Piece 28 12/06/17 18:00 57 12/06/17 16:00 98.7 65 15 97/53 (68) 98 12/06/17 16:00 67 12/06/17 14:00 74 12/06/17 12:00 79 12/06/17 12:00 98.7 79 25 120/67 (84) 100 Laboratory Tests Test 12/06/17 04:35 12/07/17 04:04 White Blood Count 5.1 TH/MM3 5.5 TH/MM3 Red Blood Count 4.33 MIL/MM3 4.52 MIL/MM3 Hemoglobin 13.6 GM/DL 14.2 GM/DL Hematocrit 39.3 % 41.2 % Mean Corpuscular Volume 90.7 FL 91.1 FL Mean Corpuscular Hemoglobin 31.3 PG 31.4 PG Mean Corpuscular Hemoglobin Concent 34.5 % 34.5 % Red Cell Distribution Width 14.4 % 14.4 % Platelet Count 208 TH/MM3 213 TH/MM3 Mean Platelet Volume 9.3 FL 9.1 FL Neutrophils (%) (Auto) 50.7 % 51.6 % Lymphocytes (%) (Auto) 29.4 % 30.9 % Monocytes (%) (Auto) 16.5 % 14.9 % Eosinophils (%) (Auto) 2.9 % 2.0 % Basophils (%) (Auto) 0.5 % 0.6 % Neutrophils # (Auto) 2.6 TH/MM3 2.8 TH/MM3 Lymphocytes # (Auto) 1.5 TH/MM3 1.7 TH/MM3 Monocytes # (Auto) 0.8 TH/MM3 0.8 TH/MM3 Eosinophils # (Auto) 0.1 TH/MM3 0.1 TH/MM3 Basophils # (Auto) 0.0 TH/MM3 0.0 TH/MM3 CBC Comment DIFF FINAL DIFF FINAL Differential Comment Laboratory Tests Test 12/06/17 04:35 12/07/17 04:04 Blood Urea Nitrogen 13 MG/DL 13 MG/DL Creatinine 0.83 MG/DL 0.75 MG/DL Random Glucose 95 MG/DL 97 MG/DL Calcium Level 8.7 MG/DL 8.9 MG/DL Phosphorus Level 3.1 MG/DL Magnesium Level 2.5 MG/DL Sodium Level 142 MEQ/L 139 MEQ/L Potassium Level 3.8 MEQ/L 4.2 MEQ/L Chloride Level 106 MEQ/L 105 MEQ/L Carbon Dioxide Level 29.7 MEQ/L 29.2 MEQ/L Anion Gap 6 MEQ/L 5 MEQ/L Estimat Glomerular Filtration Rate 132 ML/MIN 148 ML/MIN IMAGING: Chest X-Ray 12/07/17599 Signed Impressions: Service Date/Time: Thursday, December 07, 2017 03:33 - CONCLUSION: Stable chest x-ray. No acute finding is identified. Orlando Christianson MD Chest X-Ray 12/06/17599 Signed Impressions: Service Date/Time: Wednesday, December 06, 2017 04:14 - CONCLUSION: No significant change has occurred. Gary Ross MD Chest X-Ray 12/03/17599 Signed Impressions: Service Date/Time: December 03:33 - CONCLUSION: Increase in size of cardiac silhouette since November 30. Cannot exclude pericardial effusion. Mild basilar and perihilar airspace disease. Fidel Myers MD PHYSICAL EXAMINATION GENERAL: No distress. Has eyes open, but does not communicate otherwise. He appears alert. HEAD, EYES, EARS, NOSE, AND THROAT: The pupils are reactive. No icterus. NECK: No swelling or adenopathy. Tracheostomy tube in place LUNGS: Bilateral rhonchi. HEART: Regular S1 and S2 without audible murmurs. ABDOMEN: Soft. (+) BS. EXTREMITIES: No clubbing, cyanosis or edema. SKIN: No diffuse rash. NEUROLOGIC: Unable to fully assess. PSYCH: Unable to fully assess. IMPRESSION 1. Multiple drug-resistant sputum culture previously ESBL e. coli and pseudomonas. Pneumonia vs tracheobronchitis or colonization. New culture has stenotophomonas and MDR Pseudomonas. Low grade fever. 2. Sepsis on admission. 3. Chronic tracheostomy. RECOMMEND: 1. Continue Zerbaxa. 2. Continue Levaquin. 3. Stop Vancomycin. 4. Monitor clinical status. Wesly Rosado MD Dec 07, 2017 12:06
--- NOTE | 2017-12-07 15:58 | HHI.CCPN ---
Subjective Remarks/Hospital Course This is a 32-year-old AA male. Date of admission 11/30/2017. 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 He has known seizure disorder on phenytoin and levetiracetam. Patient presents from [facility] with onset of pyrexia, tachycardia and change in mental status. Patient is to show preservation 103 with a heart rate in the 190s. Patient received 3 L normal saline bolus was started on vancomycin and piperacillin/tazobactam central was placed in the right femoral region secondary to poor prophylaxis. He also received acetaminophen. His fevers abated. Heart rate currently 120s. 12/01 No events overnight. On TP's with 35% FIO2. Afebrile. 12/02: Afebrile. Resting in bed in no acute distress. On T piece at 6 L/35%. Sputum with schmitt resistant Pseudomonas. 12/03: Afebrile. Copious secretions from tracheostomy site. Remains on T piece 6 L is 35%. Sputum with ESBL positive Escherichia coli/resistant Pseudomonas. Remains on piperacillin/tazobactam. Tolerating tube feeding. Positive BM. 2/: Afebrile. Continues with copious reddish-brown secretions from 6.0 Shiley trach tube. Remains on TP 6 L 35%. Remains on piperacillin/tazobactam. Tolerating tube feeding. Positive BM. Subjective /3: Afebrile. Continues with copious secretions from trach. Currently on 6 L /28% FiO2. Tolerating tube feeds. Positive BM 4 12/06: Afebrile. No acute changes. Noted excessive secretions continued to emanate from tracheostomy site. 12/07: Noted only moderate secretions from tracheostomy site is afternoon. The patient continues on TPiece. Objective Vital Signs Date Time Temp Pulse Resp B/P (MAP) Pulse Ox O2 Delivery O2 Flow Rate FiO2 12/07/17 08:16 100 T-piece 28 12/07/17 06:00 82 12/07/17 04:00 98.9 31 128/69 (88) 12/06/17 19:40 5.00 Intake and Output 12/07/17 12/07/17 12/08/17 08:00 16:00 00:00 Intake Total 1843.5 ml 100 ml Output Total 1150 ml Balance 693.5 ml 100 ml Result Diagram: 12/07/17 0404 12/07/17 0404 Imaging Last Impressions Chest X-Ray 12/03/17 0600 Signed Impressions: Service Date/Time: December 03:33 - CONCLUSION: Increase in size of cardiac silhouette since November 30. Cannot exclude pericardial effusion. Mild basilar and perihilar airspace disease. Fidel Myers MD Objective Remarks GENERAL: 32-year-old AA male currently on T piece with no apperance of acute distress SKIN: Warm and dry. No rash HEAD: Atraumatic. Normocephalic. EYES: Pupils equal and round about 3 mm bilaterally and reactive. No scleral icterus. No injection or drainage. ENT: No nasal bleeding or discharge. Mucous membranes pink and moist. NECK: Trachea midline. No JVD. Tracheostomy is clean dry and intact CARDIOVASCULAR: RRR. S1, S2 no S4. Without murmur RESPIRATORY: Clear to auscultation. Breath sounds equal bilaterally. GASTROINTESTINAL: Abdomen soft, non-tender, nondistended. GJ tube site is clean dry and intact MUSCULOSKELETAL: Extremities without edema. Contracted bilateral upper extremities.. NEUROLOGICAL: Status post tracheostomy. Positive gag. Positive corneal reflex. Withdraws to pain. Date of Insertion: Nov 30, 2017 Date of Removal: Dec 05, 2017 Line: Central Venous Catheter Side: Right Location: Femoral A/P Assessment and Plan Neuro/Psych: Anoxic brain injury Seizure disorder NOS Continue levetiracetam 1000 mg twice a day and phenytoin 200 mg twice a day Check phenytoin level in a.m. was 12.2. Recheck 2/4 AM Acetaminophen 650 mg by G-tube every 6 hours when necessary fever Oxycodone 5 mill grams every 6 hours. As needed pain/home medication Baclofen 20 mg 3 times a day muscle spasticity Seizure precautions CV: Essential hypertension History of dyslipidemia Lactic acidosis Continue home medications of amlodipine 10 mg daily, metoprolol tartrate 50 mill grams twice a day and hydralazine 50 mg every 8 hours Continue on clonidine 0.1 mg by mouth 3 times a day IV fluids discontinued. Furosemide 40 mg IV 1 now with pleural effusion left side Troponin less than 0.02 admission Lactate 10.2 admission. Serial lactates every 6 hours until clear. Received 3 L normal saline in ED. Echocardiogram revealed EF 55%. Moderate left effusion. Trivial pericardial effusion. Resp: Chronic respiratory failure Currently on TPs maintain saturations greater than equal to 92%. Currently at 6 L 28% Wean to trach collar as tolerated Chest x-ray 11/30 revealed no acute findings Albuterol/ipratropium aerosols every 6 hours with albuterol aerosols every 2 hours. Dyspnea Hypertonic saline aerosols every 6 hours thin secretions along with guaifenesin liquid 400 mg every 8 hours GI: Gastroesophageal reflux disease Elevated AST Vital 1.5 goal 90 cc an hour per J-tube Lansoprazole 30 mg daily for GI prophylaxis. On famotidine 20 twice a day and ranitidine 150 mg twice a day at [facility] Docusate sodium/senna 1 tablet twice a day for bowel regimen : Tello catheter if indicated for accurate I's and O's in a critically ill patient Endo: Diabetes mellitus History of pancreatitis Sliding-scale insulin with Novulin R medium protocol Accu checks 6 every 6 hours to maintain euglycemia Renal: Acute kidney injury - resolved Aggressive hydration. Monitor urine output Accurate I's and O's Repeat BMP in a.m. Likely prerenal Heme: Normocytic anemia Chronic Apixaban use Resumed apixaban 5 mg twice a day Monitor CBC daily. Follow trends ID: Sputum with multidrug-resistant Pseudomonas/ESBL positive Escherichia coli MRSA positive Consult infectious disease. Droplet precautions. Contact precautions. 11/30 Blood cultures 2, UA no growth to date, sputum MDRO Pseudomonas, gram-negative willa, ESBL positive Escherichia coli Urine Legionella, pneumococcal and influenza all negative Piperacillin/tazobactam and vancomycin day #6 Mupirocin twice a day to affected areas for universal Protocol decolonization of [facility] FEN: Replace electrolytes as clinically indicated Holding home dose of potassium chloride 20 mEq twice a day. Resumed 2/3 Free water decreased to 150 cc every 6 hours MSK: Muscle contractions PT/OT evaluate and treat Continue baclofen as above Access - Right femoral central line placed 11/30 by ED physician. Discontinued 2/3 Prophylaxis - GI - lansoprazole - DVT - SCD/ Apixaban Level II follow-up Dispo: Plan transfer to long-term ventilator unit when bed availability occurs. Physician Ruth Serna MD Dec 07, 2017 15:58
[2017-12-07] MEDS: LEVOFLOXACIN 750 MG PREMIX INJ 150 ML IV SCH (21:26)
[2017-12-08] VITALS (21 sets, daily range): BP systolic 92–149; BP diastolic 50–102; PULSE 54–102; RESP 7–29; TEMP 98.6–99.7; O2SAT 98–100
[2017-12-08] MEDS: VANCOMYCIN INJ 1,750 MG in SODIUM CHLORID 0.9% 500 ML INJ 500 ML IV SCH (01:21)
[2017-12-08] MEDS: RESP: SODIUM CHLORIDE 3% 4 ML NEB NEB SCH ×4 (03:46→19:53)
[2017-12-08] MEDS: RESP: ALBUTEROL 2.5 MG/3 ML NEB (PRN) INH (03:46)
[2017-12-08] MEDS: CHLORHEXIDINE GLUCONATE 2 % 1 PACK (2 CLOTHS) TOP SCH (04:00)
[2017-12-08] MEDS: INSULIN NovoLIN REGULAR SUPPLEMENTAL SCALE SQ SCH ×5 (06:00→23:13)
[2017-12-08] MEDS: FREE WATER G-TUBE SCH ×5 (06:00→23:13)
[2017-12-08] MEDS: guaiFENesin SOLUTION 200 MG/10 ML CUP PO SCH ×3 (06:08→20:26)
[2017-12-08] MEDS: CEFTOLOZANE-TAZOBACTAM INJ 1,500 MG in SODIUM CHLORIDE 0.9% INJ 100 ML IV SCH ×3 (06:08→20:29)
[2017-12-08] MEDS: cloNIDine HCL 0.1 MG TAB PO SCH ×3 (06:08→20:28)
[2017-12-08] MEDS: hydrALAZINE HCL 50 MG TAB G-TUBE SCH ×3 (06:08→20:28)
[2017-12-08] MEDS: POTASSIUM CHLORIDE 20 MEQ PWD PACKET G-TUBE SCH (09:00)
[2017-12-08] MEDS: DOCUSATE SODIUM 50 MG/SENNA 8.6 MG TAB PO SCH ×2 (09:00→20:28)
[2017-12-08] MEDS: METOPROLOL TARTRATE 50 MG TAB PO SCH ×2 (09:00→20:28)
[2017-12-08] MEDS: MUPIROCIN 2% OINT 1 APPLIC/GM SYR EACH NARE SCH ×2 (09:31→20:27)
[2017-12-08] MEDS: HYOSCYAMINE SOLN 0.125 MG/ML 15 ML BTL G-TUBE SCH ×2 (09:33→20:27)
[2017-12-08] MEDS: ARTIFICIAL TEARS OPTH SOLN 15 ML BTL EACH EYE SCH ×3 (09:34→18:06)
[2017-12-08] MEDS: PHENYTOIN SUSP 100 MG/4 ML CUP PO SCH ×2 (09:34→20:27)
[2017-12-08] MEDS: LORATADINE 10 MG TAB G-TUBE SCH (09:35)
[2017-12-08] MEDS: BACLOFEN 20 MG TAB G-TUBE SCH ×3 (09:35→18:05)
[2017-12-08] MEDS: LANSOPRAZOLE SOLUTAB 30 MG TAB G-TUBE SCH (09:35)
[2017-12-08] MEDS: levETIRAcetam 500 MG/5 ML UDC G-TUBE SCH ×2 (09:35→20:26)
[2017-12-08] MEDS: APIXABAN 5 MG TABLET G-TUBE SCH ×2 (09:35→20:27)
[2017-12-08] MEDS: SODIUM CHLORIDE 0.9% FLUSH 10 ML FLUSH IV FLUSH SCH ×2 (09:37→20:27)
--- NOTE | 2017-12-08 11:46 | HHI.IDPN ---
Note Infectious Disease Note Patient on O2 via t-piece. Opens eyes. Spitting up clear oral secretions. Involuntary lips movements, clear secretions. Decreased trach secretions. Afebrile. 32-year-old black male who presented to the emergency department from a nursing care facility. The patient has had brain trauma with anoxic encephalopathy. He has chronic tracheostomy and PEG. The patient was sent to the emergency department because he was tachycardic and diaphoretic. He had temperature of 100.4 degrees and heart rate of 121, respiratory rate 28. Lactic acid level was 10.6. PAST MEDICAL HISTORY 1. Anoxic encephalopathy following cardiac arrest. 2. Tracheostomy and PEG tube placement in July 2015. 3. Seizure disorder. 4. Diabetes mellitus. 5. History of pancreatitis. 6. Gastroesophageal reflux disease. 7. 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 ALLERGIES No known drug allergies. MEDICATIONS 1. Zerbaxa. 2. Levaquin. OBJECTIVE: Vital Signs Date Time Temp Pulse Resp B/P (MAP) Pulse Ox O2 Delivery O2 Flow Rate FiO2 12/08/17 08:47 100 T-piece 28 12/08/17 06:00 54 12/08/17 04:00 79 12/08/17 04:00 98.6 79 20 115/63 (80) 100 12/08/17 02:00 56 12/08/17 00:00 98.8 68 20 96/56 (69) 100 12/08/17 00:00 68 12/07/17 22:00 59 12/07/17 20:45 100 T-piece 28.00 12/07/17 20:00 99 T-Piece 28 12/07/17 20:00 57 12/07/17 20:00 99.2 57 20 102/57 (72) 100 12/07/17 18:00 75 12/07/17 16:00 99.3 67 23 107/69 (82) 100 12/07/17 16:00 67 12/07/17 15:00 66 18 99/69 (79) 100 12/07/17 14:00 81 24 112/71 (85) 100 12/07/17 14:00 81 12/07/17 13:01 73 17 129/58 (81) 100 12/07/17 12:00 63 12/07/17 12:00 99.0 63 18 102/56 (71) 100 Laboratory Tests Test 12/07/17 04:04 White Blood Count 5.5 TH/MM3 Red Blood Count 4.52 MIL/MM3 Hemoglobin 14.2 GM/DL Hematocrit 41.2 % Mean Corpuscular Volume 91.1 FL Mean Corpuscular Hemoglobin 31.4 PG Mean Corpuscular Hemoglobin Concent 34.5 % Red Cell Distribution Width 14.4 % Platelet Count 213 TH/MM3 Mean Platelet Volume 9.1 FL Neutrophils (%) (Auto) 51.6 % Lymphocytes (%) (Auto) 30.9 % Monocytes (%) (Auto) 14.9 % Eosinophils (%) (Auto) 2.0 % Basophils (%) (Auto) 0.6 % Neutrophils # (Auto) 2.8 TH/MM3 Lymphocytes # (Auto) 1.7 TH/MM3 Monocytes # (Auto) 0.8 TH/MM3 Eosinophils # (Auto) 0.1 TH/MM3 Basophils # (Auto) 0.0 TH/MM3 CBC Comment DIFF FINAL Differential Comment Laboratory Tests Test 12/07/17 04:04 Blood Urea Nitrogen 13 MG/DL Creatinine 0.75 MG/DL Random Glucose 97 MG/DL Calcium Level 8.9 MG/DL Sodium Level 139 MEQ/L Potassium Level 4.2 MEQ/L Chloride Level 105 MEQ/L Carbon Dioxide Level 29.2 MEQ/L Anion Gap 5 MEQ/L Estimat Glomerular Filtration Rate 148 ML/MIN IMAGING: Chest X-Ray 12/07/17599 Signed Impressions: Service Date/Time: Thursday, December 07, 2017 03:33 - CONCLUSION: Stable chest x-ray. No acute finding is identified. Orlando Christianson MD Chest X-Ray 12/06/17599 Signed Impressions: Service Date/Time: Wednesday, December 06, 2017 04:14 - CONCLUSION: No significant change has occurred. Gary Ross MD Chest X-Ray 12/03/17599 Signed Impressions: Service Date/Time: December 03:33 - CONCLUSION: Increase in size of cardiac silhouette since November 30. Cannot exclude pericardial effusion. Mild basilar and perihilar airspace disease. Fidel Myers MD PHYSICAL EXAMINATION GENERAL: No distress. He appears alert. HEAD, EYES, EARS, NOSE, AND THROAT: The pupils are reactive. No icterus. NECK: No swelling or adenopathy. Tracheostomy tube in place LUNGS: Basilar rhonchi. HEART: Regular S1 and S2 without audible murmurs. ABDOMEN: Soft. (+) BS. EXTREMITIES: No clubbing, cyanosis or edema. SKIN: No diffuse rash. NEUROLOGIC: Unable to fully assess. PSYCH: Unable to fully assess. IMPRESSION 1. Multiple drug-resistant sputum culture previously ESBL e. coli and pseudomonas. Pneumonia vs tracheobronchitis or colonization. New culture has Stenotophomonas and MDR Pseudomonas. Low grade fever. Temp lower. 2. Sepsis on admission. 3. Chronic tracheostomy. RECOMMEND: 1. Continue Zerbaxa. 2. Continue Levaquin. 3. Monitor clinical status. Aim for antibiotic treatment for 7 days more. Wesly Rosado MD Dec 08, 2017 11:46
[2017-12-08] MEDS ORDERED: PHARMACY ORDERED LAB ONE (12:45)
--- NOTE | 2017-12-08 15:46 | HHI.CCPN ---
Subjective Remarks/Hospital Course This is a 32-year-old AA male. Date of admission 11/30/2017. 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 He has known seizure disorder on phenytoin and levetiracetam. Patient presents from [facility] with onset of pyrexia, tachycardia and change in mental status. Patient is to show preservation 103 with a heart rate in the 190s. Patient received 3 L normal saline bolus was started on vancomycin and piperacillin/tazobactam central was placed in the right femoral region secondary to poor prophylaxis. He also received acetaminophen. His fevers abated. Heart rate currently 120s. 12/01 No events overnight. On TP's with 35% FIO2. Afebrile. 12/02: Afebrile. Resting in bed in no acute distress. On T piece at 6 L/35%. Sputum with schmitt resistant Pseudomonas. 12/03: Afebrile. Copious secretions from tracheostomy site. Remains on T piece 6 L is 35%. Sputum with ESBL positive Escherichia coli/resistant Pseudomonas. Remains on piperacillin/tazobactam. Tolerating tube feeding. Positive BM. 2: Afebrile. Continues with copious reddish-brown secretions from 6.0 Shiley trach tube. Remains on TP 6 L 35%. Remains on piperacillin/tazobactam. Tolerating tube feeding. Positive BM. Subjective 12/05: Afebrile. Continues with copious secretions from trach. Currently on 6 L /28% FiO2. Tolerating tube feeds. Positive BM 4 12/06: Afebrile. No acute changes. Noted excessive secretions continued to emanate from tracheostomy site. 12/07: Noted only moderate secretions from tracheostomy site is afternoon. The patient continues on TPiece. 12/08:No acute events overnight. Continues on TPiece .35% Objective Vital Signs Date Time Temp Pulse Resp B/P (MAP) Pulse Ox O2 Delivery O2 Flow Rate FiO2 12/08/17 08:47 100 T-piece 28 12/08/17 06:00 54 12/08/17 04:00 98.6 20 115/63 (80) 12/07/17 20:45 28.00 Intake and Output 12/08/17 12/08/17 12/09/17 08:00 16:00 00:00 Intake Total 873 ml Output Total 1000 ml Balance -127 ml Result Diagram: 12/07/1740312/07/17 040 Imaging Last Impressions Chest X-Ray 12/03/17 0600 Signed Impressions: Service Date/Time: December 03:33 - CONCLUSION: Increase in size of cardiac silhouette since November 30. Cannot exclude pericardial effusion. Mild basilar and perihilar airspace disease. Fidel Myers MD Objective Remarks GENERAL: 32-year-old AA male currently on T piece with no apperance of acute distress SKIN: Warm and dry. No rash HEAD: Atraumatic. Normocephalic. EYES: Pupils equal and round about 3 mm bilaterally and reactive. No scleral icterus. No injection or drainage. ENT: No nasal bleeding or discharge. Mucous membranes pink and moist. NECK: Trachea midline. No JVD. Tracheostomy is clean dry and intact CARDIOVASCULAR: RRR. S1, S2 no S4. Without murmur RESPIRATORY: Clear to auscultation. Breath sounds equal bilaterally. GASTROINTESTINAL: Abdomen soft, non-tender, nondistended. GJ tube site is clean dry and intact MUSCULOSKELETAL: Extremities without edema. Contracted bilateral upper extremities.. NEUROLOGICAL: Status post tracheostomy. Positive gag. Positive corneal reflex. Withdraws to pain. Date of Insertion: Nov 30, 2017 Date of Removal: Dec 05, 2017 Line: Central Venous Catheter Side: Right Location: Femoral A/P Assessment and Plan Neuro/Psych: Anoxic brain injury Seizure disorder NOS Continue levetiracetam 1000 mg twice a day and phenytoin 200 mg twice a day Acetaminophen 650 mg by G-tube every 6 hours when necessary fever Oxycodone 5 milligrams every 6 hours. As needed pain/home medication Baclofen 20 mg 3 times a day muscle spasticity Seizure precautions / Dilantin level 9.1. Repeat level CV: Essential hypertension History of dyslipidemia Lactic acidosis Continue home medications of amlodipine 10 mg daily, metoprolol tartrate 50 mill grams twice a day and hydralazine 50 mg every 8 hours Continue on clonidine 0.1 mg by mouth 3 times a day IV fluids discontinued. Furosemide 40 mg IV 1 now with pleural effusion left side Troponin less than 0.02 admission Lactate 10.2 admission. Serial lactates every 6 hours until clear. Received 3 L normal saline in ED. Echocardiogram revealed EF 55%. Moderate left effusion. Trivial pericardial effusion. Resp: Chronic respiratory failure Currently on TPs maintain saturations greater than equal to 92%. Currently at 6 L 28% Wean to trach collar as tolerated Chest x-ray 11/30 revealed no acute findings Albuterol/ipratropium aerosols every 6 hours with albuterol aerosols every 2 hours. Dyspnea Hypertonic saline aerosols every 6 hours thin secretions along with guaifenesin liquid 400 mg every 8 hours GI: Gastroesophageal reflux disease Elevated AST Vital 1.5 goal 90 cc an hour per J-tube Lansoprazole 30 mg daily for GI prophylaxis. On famotidine 20 twice a day and ranitidine [facility] Docusate sodium/senna 1 tablet twice a day for bowel regimen : Tello catheter if indicated for accurate I's and O's in a critically ill patient Endo: Diabetes mellitus History of pancreatitis Sliding-scale insulin with Novulin R medium protocol Accu checks 6 every 6 hours to maintain euglycemia Renal: Acute kidney injury - resolved Aggressive hydration. Monitor urine output Accurate I's and O's Monitor BMP Heme: Normocytic anemia Chronic Apixaban use Resumed apixaban 5 mg twice a day Monitor CBC daily. Follow trends ID: Sputum with multidrug-resistant Pseudomonas/ESBL positive Escherichia coli MRSA positive Consult infectious disease. Droplet precautions. Contact precautions. 11/30 Blood cultures 2, UA no growth to date, sputum MDRO Pseudomonas, gram-negative willa, ESBL positive Escherichia coli Urine Legionella, pneumococcal and influenza all negative Piperacillin/tazobactam and vancomycin day #6 Mupirocin twice a day to affected areas for universal Protocol decolonization of [facility] FEN: Replace electrolytes as clinically indicated Holding home dose of potassium chloride 20 mEq twice a day. Resumed 2/3 Free water decreased to 150 cc every 6 hours MSK: Muscle contractions PT/OT evaluate and treat Continue baclofen as above Access - Right femoral central line placed 11/30 by ED physician. Discontinued 2/3 Prophylaxis - GI - lansoprazole - DVT - SCD/ Apixaban Level II follow-up Dispo: Plan transfer to long-term ventilator unit when bed availability occurs. Physician Ruth Serna MD Dec 08, 2017 15:45
[2017-12-08] MEDS: LEVOFLOXACIN 750 MG PREMIX INJ 150 ML IV SCH (20:26)
[2017-12-09] VITALS (15 sets, daily range): BP systolic 112–134; BP diastolic 60–82; PULSE 57–88; RESP 16–34; TEMP 98.4–100; O2SAT 98–100
[2017-12-09] MEDS: RESP: SODIUM CHLORIDE 3% 4 ML NEB NEB SCH ×2 (03:24→08:04)
[2017-12-09] MEDS: CHLORHEXIDINE GLUCONATE 2 % 1 PACK (2 CLOTHS) TOP SCH (04:00)
[2017-12-09] MEDS: ACETAMINOPHEN 650 MG/20.3 ML UDC G-TUBE PRN (04:03)
[2017-12-09] MEDS: CEFTOLOZANE-TAZOBACTAM INJ 1,500 MG in SODIUM CHLORIDE 0.9% INJ 100 ML IV SCH ×3 (04:56→21:42)
[2017-12-09] MEDS: hydrALAZINE HCL 50 MG TAB G-TUBE SCH ×3 (04:56→21:43)
[2017-12-09] MEDS: cloNIDine HCL 0.1 MG TAB PO SCH ×3 (04:56→21:43)
[2017-12-09] MEDS: FREE WATER G-TUBE SCH ×4 (04:56→23:27)
[2017-12-09] MEDS: guaiFENesin SOLUTION 200 MG/10 ML CUP PO SCH ×3 (04:57→21:41)
[2017-12-09] MEDS: INSULIN NovoLIN REGULAR SUPPLEMENTAL SCALE SQ SCH ×4 (04:57→23:26)
[2017-12-09 05:32] LABS: HEMATOCRIT 37.4 % (39.0-51.0); HEMOGLOBIN 12.8 GM/DL (13.0-17.0); MEAN CELL VOLUME 91.4 FL (80.0-100.0); MEAN CORPUSCULAR HEMOGLOBIN 31.4 PG (27.0-34.0); MEAN CORPUSCULAR HGB CONC 34.4 % (32.0-36.0); MEAN PLATELET VOLUME 9.5 FL (7.0-11.0); PLATELET COUNT 199 TH/MM3 (150-450); RED BLOOD COUNT 4.09 MIL/MM3 (4.50-5.90); RED CELL DISTRIBUTION WIDTH 14.4 % (11.6-17.2); WHITE BLOOD COUNT 4.7 TH/MM3 (4.0-11.0)
[2017-12-09 05:52] LABS: BICARBONATE 27.8 MEQ/L (21.0-32.0); CALCIUM 8.9 MG/DL (8.5-10.1); CREATININE 0.67 MG/DL (0.60-1.30)
[2017-12-09 05:54] LABS: PHENYTOIN (DILANTIN) 8.4 MCG/ML (10.0-20.0)
[2017-12-09] MEDS: RESP: ALBUTEROL 2.5 MG/3 ML NEB (PRN) INH ×2 (08:04→20:42)
[2017-12-09] MEDS: PHENYTOIN SUSP 100 MG/4 ML CUP PO SCH ×3 (08:19→23:27)
[2017-12-09] MEDS: BACLOFEN 20 MG TAB G-TUBE SCH ×3 (08:20→18:36)
[2017-12-09] MEDS: LANSOPRAZOLE SOLUTAB 30 MG TAB G-TUBE SCH (08:20)
[2017-12-09] MEDS: APIXABAN 5 MG TABLET G-TUBE SCH ×2 (08:20→21:42)
[2017-12-09] MEDS: levETIRAcetam 500 MG/5 ML UDC G-TUBE SCH ×2 (08:20→21:41)
[2017-12-09] MEDS: POTASSIUM CHLORIDE 20 MEQ PWD PACKET G-TUBE SCH (08:21)
[2017-12-09] MEDS: LORATADINE 10 MG TAB G-TUBE SCH (08:22)
[2017-12-09] MEDS: SODIUM CHLORIDE 0.9% FLUSH 10 ML FLUSH IV FLUSH SCH ×2 (08:23→21:43)
[2017-12-09] MEDS: SODIUM CHLORIDE 0.9% FLUSH 10 ML FLUSH IV FLUSH PRN (08:23)
[2017-12-09] MEDS: HYOSCYAMINE SOLN 0.125 MG/ML 15 ML BTL G-TUBE SCH ×2 (08:34→21:42)
[2017-12-09] MEDS: ARTIFICIAL TEARS OPTH SOLN 15 ML BTL EACH EYE SCH ×3 (08:34→18:36)
[2017-12-09] MEDS: METOPROLOL TARTRATE 50 MG TAB PO SCH ×2 (08:35→21:00)
[2017-12-09] MEDS: DOCUSATE SODIUM 50 MG/SENNA 8.6 MG TAB PO SCH ×2 (08:36→21:00)
[2017-12-09] MEDS: MUPIROCIN 2% OINT 1 APPLIC/GM SYR EACH NARE SCH ×2 (09:43→21:42)
--- NOTE | 2017-12-09 14:02 | HHI.CCPN ---
Subjective Remarks/Hospital Course This is a 32-year-old AA male. Date of admission 11/30/2017. 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 He has known seizure disorder on phenytoin and levetiracetam. Patient presents from [facility] with onset of pyrexia, tachycardia and change in mental status. Patient is to show preservation 103 with a heart rate in the 190s. Patient received 3 L normal saline bolus was started on vancomycin and piperacillin/tazobactam central was placed in the right femoral region secondary to poor prophylaxis. He also received acetaminophen. His fevers abated. Heart rate currently 120s. 12/01 No events overnight. On TP's with 35% FIO2. Afebrile. 12/02: Afebrile. Resting in bed in no acute distress. On T piece at 6 L/35%. Sputum with schmitt resistant Pseudomonas. 12/03: Afebrile. Copious secretions from tracheostomy site. Remains on T piece 6 L is 35%. Sputum with ESBL positive Escherichia coli/resistant Pseudomonas. Remains on piperacillin/tazobactam. Tolerating tube feeding. Positive BM. 2: Afebrile. Continues with copious reddish-brown secretions from 6.0 Shiley trach tube. Remains on TP 6 L 35%. Remains on piperacillin/tazobactam. Tolerating tube feeding. Positive BM. Subjective 12/05: Afebrile. Continues with copious secretions from trach. Currently on 6 L /28% FiO2. Tolerating tube feeds. Positive BM 4 12/06: Afebrile. No acute changes. Noted excessive secretions continued to emanate from tracheostomy site. 12/07: Noted only moderate secretions from tracheostomy site is afternoon. The patient continues on TPiece. 12/08:No acute events overnight. Continues on TPiece .35% 12/09: Overnight patient spiked a temperature was 101.0. Patient was pancultured this a.m., awaiting results. Patient continues on T piece without any respiratory difficulty. Hypertonic saline nebs discontinued. Objective Vital Signs Date Time Temp Pulse Resp B/P (MAP) Pulse Ox O2 Delivery O2 Flow Rate FiO2 12/09/17 08:07 99 T-piece 6.00 28 12/09/17 08:00 60 12/09/17 04:00 100.0 22 116/71 (86) Intake and Output 12/09/17 12/09/17 12/10/17 08:00 16:00 00:00 Intake Total 1700 ml Output Total 1100 ml Balance 600 ml Result Diagram: 12/09/17 0430 12/09/17 0430 Imaging Last Impressions Chest X-Ray 12/03/17 0600 Signed Impressions: Service Date/Time: December 03:33 - CONCLUSION: Increase in size of cardiac silhouette since November 30. Cannot exclude pericardial effusion. Mild basilar and perihilar airspace disease. Fidel Myers MD Objective Remarks GENERAL: 32-year-old AA male currently on T piece with no apperance of acute distress SKIN: Warm and dry. No rash HEAD: Atraumatic. Normocephalic. EYES: Pupils equal and round about 3 mm bilaterally and reactive. No scleral icterus. No injection or drainage. ENT: No nasal bleeding or discharge. Mucous membranes pink and moist. NECK: Trachea midline. No JVD. Tracheostomy is clean dry and intact CARDIOVASCULAR: RRR. S1, S2 no S4. Without murmur RESPIRATORY: Clear to auscultation. Breath sounds equal bilaterally. GASTROINTESTINAL: Abdomen soft, non-tender, nondistended. GJ tube site is clean dry and intact MUSCULOSKELETAL: Extremities without edema. Contracted bilateral upper extremities.. NEUROLOGICAL: Status post tracheostomy. Positive gag. Positive corneal reflex. Withdraws to pain. Date of Insertion: Nov 30, 2017 Date of Removal: Dec 05, 2017 Line: Central Venous Catheter Side: Right Location: Femoral A/P Assessment and Plan Neuro/Psych: Anoxic brain injury Seizure disorder NOS Continue levetiracetam 1000 mg twice a day and phenytoin 200 mg twice a day Acetaminophen 650 mg by G-tube every 6 hours when necessary fever Oxycodone 5 milligrams every 6 hours. As needed pain/home medication Baclofen 20 mg 3 times a day muscle spasticity Seizure precautions 12/06 Dilantin level 9.1. Repeat level 8, Dilantin increased 200 mg BID to 3 times a day CV: Essential hypertension History of dyslipidemia Lactic acidosis Continue home medications of amlodipine 10 mg daily, metoprolol tartrate 50 mill grams twice a day and hydralazine 50 mg every 8 hours Continue on clonidine 0.1 mg by mouth 3 times a day IV fluids discontinued. Furosemide 40 mg IV 1 now with pleural effusion left side Troponin less than 0.02 admission Lactate 10.2 admission. Repeat lactate level in am Echocardiogram revealed EF 55%. Moderate left effusion. Trivial pericardial effusion. Resp: Chronic respiratory failure Currently on TPs maintain saturations greater than equal to 92%. Currently at 6 L 28% Wean to trach collar as tolerated Chest x-ray 11/30 revealed no acute findings Albuterol/ipratropium aerosols every 6 hours with albuterol aerosols every 2 hours. Dyspnea Hypertonic saline aerosols every 6 hours thin secretions, is continued 2/6 guaifenesin liquid 400 mg every 8 hours GI: Gastroesophageal reflux disease Elevated AST Vital 1.5 goal 90 cc an hour per J-tube Lansoprazole 30 mg daily for GI prophylaxis. On famotidine 20 twice a day and ranitidine 150 mg twice a day [facility] Docusate sodium/senna 1 tablet twice a day for bowel regimen : Tello catheter if indicated for accurate I's and O's in a critically ill patient Endo: Diabetes mellitus History of pancreatitis Sliding-scale insulin with Novulin R medium protocol Accu checks 6 every 6 hours to maintain euglycemia Renal: Acute kidney injury - resolved Aggressive hydration. Monitor urine output Accurate I's and O's Monitor BMP Heme: Normocytic anemia Chronic Apixaban use Resumed apixaban 5 mg twice a day Monitor CBC daily. Follow trends ID: Sputum with multidrug-resistant Pseudomonas/ESBL positive Escherichia coli MRSA positive Consult infectious disease. Droplet precautions. Contact precautions. 11/30 Blood cultures 2, UA no growth to date, sputum MDRO Pseudomonas, gram-negative willa, ESBL positive Escherichia coli Urine Legionella, pneumococcal and influenza all negative Piperacillin/tazobactam and vancomycin day #6 Mupirocin twice a day to affected areas for universal Protocol decolonization of [facility] /-pancultured FEN: Replace electrolytes as clinically indicated Holding home dose of potassium chloride 20 mEq twice a day. Resumed 2/3 Free water decreased to 150 cc every 6 hours MSK: Muscle contractions PT/OT evaluate and treat Continue baclofen as above Access - Right femoral central line placed 11/30 by ED physician. Discontinued 2/3 Prophylaxis - GI - lansoprazole - DVT - SCD/ Apixaban Level II follow-up Dispo: Plan transfer to long-term ventilator unit when bed availability occurs. Physician Ruth Serna MD Dec 09, 2017 14:02
--- NOTE | 2017-12-09 15:49 | HHI.IDPN ---
Note Infectious Disease Note Patient on O2 via t-piece. Opens eyes. Spitting up clear oral secretions. Not having involuntary lip movements currently. Had temp of 100 axillary. 32-year-old black male who presented to the emergency department from a nursing care facility. History of brain trauma with anoxic encephalopathy. He has chronic tracheostomy and PEG. The patient was sent to the emergency department because he was tachycardic and diaphoretic. He had temperature of 100.4 degrees and heart rate of 121, respiratory rate 28. Lactic acid level was 10.6. PAST MEDICAL HISTORY 1. Anoxic encephalopathy following cardiac arrest. 2. Tracheostomy and PEG tube placement in July 2015. 3. Seizure disorder. 4. Diabetes mellitus. 5. History of pancreatitis. 6. Gastroesophageal reflux disease. 7. 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 ALLERGIES No known drug allergies. MEDICATIONS 1. Zerbaxa. 2. Levaquin. OBJECTIVE: Vital Signs Date Time Temp Pulse Resp B/P (MAP) Pulse Ox O2 Delivery O2 Flow Rate FiO2 12/09/17 08:07 99 T-piece 6.00 28 12/09/17 08:00 60 12/09/17 08:00 98.4 57 19 116/67 (83) 99 12/09/17 07:00 99 T-Piece 28 12/09/17 06:00 77 12/09/17 04:00 100.0 59 22 116/71 (86) 99 12/09/17 04:00 59 12/09/17 02:00 58 12/09/17 00:00 98.6 71 21 124/67 (86) 100 12/09/17 00:00 71 12/08/17 22:00 60 12/08/17 20:00 74 12/08/17 20:00 99.7 74 24 123/88 (100) 100 12/08/17 19:53 100 T-piece 5.00 28 12/08/17 19:00 100 T-Piece 28 12/08/17 18:00 102 16 149/102 (118) 100 12/08/17 18:00 102 12/08/17 17:00 72 27 110/67 (81) 98 12/08/17 16:00 99.0 66 24 105/57 (73) 99 12/08/17 16:00 66 Laboratory Tests Test 12/09/17 04:30 White Blood Count 4.7 TH/MM3 Red Blood Count 4.09 MIL/MM3 Hemoglobin 12.8 GM/DL Hematocrit 37.4 % Mean Corpuscular Volume 91.4 FL Mean Corpuscular Hemoglobin 31.4 PG Mean Corpuscular Hemoglobin Concent 34.4 % Red Cell Distribution Width 14.4 % Platelet Count 199 TH/MM3 Mean Platelet Volume 9.5 FL Laboratory Tests Test 12/09/17 04:30 Blood Urea Nitrogen 16 MG/DL Creatinine 0.67 MG/DL Random Glucose 106 MG/DL Calcium Level 8.9 MG/DL Sodium Level 140 MEQ/L Potassium Level 3.9 MEQ/L Chloride Level 105 MEQ/L Carbon Dioxide Level 27.8 MEQ/L Anion Gap 7 MEQ/L Estimat Glomerular Filtration Rate 169 ML/MIN Microbiology Date/Time Source Procedure Growth Status 12/09/17 12:35 Blood Peripheral Aerobic Blood Culture Pending Received 12/09/17 12:35 Blood Peripheral Anaerobic Blood Culture Pending Received 12/09/17 12:30 Blood Peripheral Aerobic Blood Culture Pending Received 12/09/17 12:30 Blood Peripheral Anaerobic Blood Culture Pending Received 12/09/17 11:30 Sputum Endotracheal Gram Stain Pending Received 12/09/17 11:30 Sputum Endotracheal Sputum Culture Pending Received 12/09/17 11:41 Urine Catheterized Urine Urine Culture Pending Received IMAGING: Chest X-Ray 12/07/17599 Signed Impressions: Service Date/Time: Thursday, December 07, 2017 03:33 - CONCLUSION: Stable chest x-ray. No acute finding is identified. Orlando Christianson MD Chest X-Ray 12/06/17599 Signed Impressions: Service Date/Time: Wednesday, December 06, 2017 04:14 - CONCLUSION: No significant change has occurred. Gary Ross MD Chest X-Ray 12/03/17599 Signed Impressions: Service Date/Time: December 03:33 - CONCLUSION: Increase in size of cardiac silhouette since November 30. Cannot exclude pericardial effusion. Mild basilar and perihilar airspace disease. Fidel Myers MD PHYSICAL EXAMINATION GENERAL: No distress. He appears alert. HEAD, EYES, EARS, NOSE, AND THROAT: The pupils are reactive. No icterus. NECK: No swelling or adenopathy. Tracheostomy tube in place LUNGS: Basilar rhonchi. Breath sounds decreased. HEART: Regular S1 and S2 without audible murmurs. ABDOMEN: Soft. (+) BS. EXTREMITIES: No clubbing, cyanosis or edema. SKIN: No diffuse rash. NEUROLOGIC: Unable to fully assess. PSYCH: Unable to fully assess. IMPRESSION 1. Multiple drug-resistant sputum culture previously ESBL e. coli and pseudomonas. Pneumonia vs tracheobronchitis or colonization. New culture has Stenotophomonas and MDR Pseudomonas. 2. New fever. 3. Sepsis on admission. 4. Chronic tracheostomy. Looks stable. RECOMMEND: 1. Continue Zerbaxa. 2. Continue Levaquin. 3. Follow the new cultures. 4. Monitor clinical status. Further disposition when the new cultures become available. Wesly Rosado MD Dec 09, 2017 15:49
[2017-12-09] MEDS: LEVOFLOXACIN 750 MG PREMIX INJ 150 ML IV SCH (21:41)
[2017-12-10] VITALS (14 sets, daily range): BP systolic 93–142; BP diastolic 51–83; PULSE 63–104; RESP 10–26; TEMP 98.6–100.9; O2SAT 99–100
[2017-12-10] MEDS: CHLORHEXIDINE GLUCONATE 2 % 1 PACK (2 CLOTHS) TOP SCH ×2 (04:00→23:29)
--- NOTE | 2017-12-10 04:06 | RADRPT ---
EXAM DATE/TIME: 12/10/2017 03:25 [place] COMPARISON: CHEST SINGLE AP, December 07, 2017, 3:33. INDICATIONS : Shortness of breath, possible pulmonary disease. MEDICAL HISTORY : Myocardial infarction. Hypercholesterolemia. Hypertension. Anoxic brain injury SURGICAL HISTORY : Tracheostomy, Peg tube ENCOUNTER: Subsequent ACUITY: 1 week PAIN SCORE: Non-responsive. LOCATION: Bilateral chest FINDINGS: Portable AP view of the chest demonstrates a normal-sized cardiac silhouette. Tracheostomy remains pr esent. There are multiple EKG lines overlying the patient. Lungs are underinflated with mild bibasila r opacity. No pleural effusion or pneumothorax is visualized. CONCLUSION: Underinflation with mild bibasilar opacity representing atelectasis or consolidation. Orlando Christianson MD on December 10, 2017 at 4:04 Board Certified Radiologist. This report was verified electronically.
[2017-12-10 05:19] LABS: AUTOMATED NEUTROPHIL # 3.4 TH/MM3 (1.8-7.7); BASOPHIL % 0.5 % (0.0-2.0); EOSINOPHIL # 0.1 TH/MM3 (0-0.4); EOSINOPHIL % 1.6 % (0.0-4.0); HEMATOCRIT 39.1 % (39.0-51.0); HEMOGLOBIN 13.5 GM/DL (13.0-17.0); LYMPH % 29.4 % (9.0-44.0); LYMPHOCYTE # 1.8 TH/MM3 (1.0-4.8); MEAN CELL VOLUME 90.2 FL (80.0-100.0); MEAN CORPUSCULAR HEMOGLOBIN 31.2 PG (27.0-34.0); MEAN CORPUSCULAR HGB CONC 34.5 % (32.0-36.0); MEAN PLATELET VOLUME 9.1 FL (7.0-11.0); MONO % 12.9 % (0.0-8.0); MONOCYTE # 0.8 TH/MM3 (0-0.9); NEUT % 55.6 % (16.0-70.0); PLATELET COUNT 230 TH/MM3 (150-450); RED BLOOD COUNT 4.34 MIL/MM3 (4.50-5.90); RED CELL DISTRIBUTION WIDTH 14.9 % (11.6-17.2); WHITE BLOOD COUNT 6.1 TH/MM3 (4.0-11.0)
[2017-12-10] MEDS: hydrALAZINE HCL 50 MG TAB G-TUBE SCH ×3 (05:19→22:00)
[2017-12-10] MEDS: guaiFENesin SOLUTION 200 MG/10 ML CUP PO SCH ×3 (05:19→22:03)
[2017-12-10] MEDS: FREE WATER G-TUBE SCH ×4 (05:19→23:28)
[2017-12-10] MEDS: cloNIDine HCL 0.1 MG TAB PO SCH ×3 (05:19→22:00)
[2017-12-10] MEDS: CEFTOLOZANE-TAZOBACTAM INJ 1,500 MG in SODIUM CHLORIDE 0.9% INJ 100 ML IV SCH ×3 (05:19→22:02)
[2017-12-10] MEDS: INSULIN NovoLIN REGULAR SUPPLEMENTAL SCALE SQ SCH ×4 (05:22→23:28)
[2017-12-10 05:37] LABS: BICARBONATE 26.7 MEQ/L (21.0-32.0); CALCIUM 8.9 MG/DL (8.5-10.1); CREATININE 0.72 MG/DL (0.60-1.30)
[2017-12-10] MEDS: ACETAMINOPHEN 650 MG/20.3 ML UDC G-TUBE PRN (06:25)
[2017-12-10] MEDS: POTASSIUM CHLORIDE 20 MEQ PWD PACKET G-TUBE SCH (08:39)
[2017-12-10] MEDS: HYOSCYAMINE SOLN 0.125 MG/ML 15 ML BTL G-TUBE SCH ×3 (08:39→22:07)
[2017-12-10] MEDS: levETIRAcetam 500 MG/5 ML UDC G-TUBE SCH ×2 (08:39→22:02)
[2017-12-10] MEDS: LORATADINE 10 MG TAB G-TUBE SCH (08:40)
[2017-12-10] MEDS: LANSOPRAZOLE SOLUTAB 30 MG TAB G-TUBE SCH (08:41)
[2017-12-10] MEDS: APIXABAN 5 MG TABLET G-TUBE SCH ×2 (08:41→22:04)
[2017-12-10] MEDS: BACLOFEN 20 MG TAB G-TUBE SCH ×3 (08:41→19:00)
[2017-12-10] MEDS: PHENYTOIN SUSP 100 MG/4 ML CUP PO SCH ×2 (08:42→19:00)
[2017-12-10] MEDS: DOCUSATE SODIUM 50 MG/SENNA 8.6 MG TAB PO SCH ×2 (08:42→21:00)
[2017-12-10] MEDS: SODIUM CHLORIDE 0.9% FLUSH 10 ML FLUSH IV FLUSH PRN (08:42)
[2017-12-10] MEDS: SODIUM CHLORIDE 0.9% FLUSH 10 ML FLUSH IV FLUSH SCH ×2 (08:42→22:01)
[2017-12-10] MEDS: ARTIFICIAL TEARS OPTH SOLN 15 ML BTL EACH EYE SCH ×3 (08:43→19:00)
[2017-12-10] MEDS: MUPIROCIN 2% OINT 1 APPLIC/GM SYR EACH NARE SCH ×2 (08:43→22:02)
[2017-12-10] MEDS: METOPROLOL TARTRATE 50 MG TAB PO SCH ×2 (09:00→21:00)
--- NOTE | 2017-12-10 10:21 | HHI.CCPN ---
Subjective Remarks/Hospital Course This is a 32-year-old AA male. Date of admission 11/30/2017. 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 He has known seizure disorder on phenytoin and levetiracetam. Patient presents from [facility] with onset of pyrexia, tachycardia and change in mental status. Patient is to show preservation 103 with a heart rate in the 190s. Patient received 3 L normal saline bolus was started on vancomycin and piperacillin/tazobactam central was placed in the right femoral region secondary to poor prophylaxis. He also received acetaminophen. His fevers abated. Heart rate currently 120s. 12/01 No events overnight. On TP's with 35% FIO2. Afebrile. 12/02: Afebrile. Resting in bed in no acute distress. On T piece at 6 L/35%. Sputum with schmitt resistant Pseudomonas. 12/03: Afebrile. Copious secretions from tracheostomy site. Remains on T piece 6 L is 35%. Sputum with ESBL positive Escherichia coli/resistant Pseudomonas. Remains on piperacillin/tazobactam. Tolerating tube feeding. Positive BM. 2: Afebrile. Continues with copious reddish-brown secretions from 6.0 Shiley trach tube. Remains on TP 6 L 35%. Remains on piperacillin/tazobactam. Tolerating tube feeding. Positive BM. Subjective 12/05: Afebrile. Continues with copious secretions from trach. Currently on 6 L /28% FiO2. Tolerating tube feeds. Positive BM 4 12/06: Afebrile. No acute changes. Noted excessive secretions continued to emanate from tracheostomy site. 12/07: Noted only moderate secretions from tracheostomy site is afternoon. The patient continues on TPiece. 12/08:No acute events overnight. Continues on TPiece .35% 12/09: Overnight patient spiked a temperature was 101.0. Patient was pancultured this a.m., awaiting results. Patient continues on T piece without any respiratory difficulty. Hypertonic saline nebs discontinued. 12/10: Early this a.m. patient was noted to have rhythmic type movement of lower extremities bilaterally not witnessed before. Patient noted to have subtherapeutic Dilantin level, and dosage was increased yesterday. EEG pending this a.m.. Repeat dig level in a.m.. Objective Vital Signs Date Time Temp Pulse Resp B/P (MAP) Pulse Ox O2 Delivery O2 Flow Rate FiO2 12/10/17 06:00 104 12/10/17 06:00 99.9 22 142/78 (99) 100 12/09/17 20:42 T-piece 5.00 28 Intake and Output 12/10/17 12/10/17 12/11/17 08:00 16:00 00:00 Intake Total 1273 ml Output Total 1100 ml Balance 173 ml Result Diagram: 12/10/17 0445 12/10/17 0445 Imaging Last Impressions Chest X-Ray 12/03/17 0600 Signed Impressions: Service Date/Time: December 03:33 - CONCLUSION: Increase in size of cardiac silhouette since November 30. Cannot exclude pericardial effusion. Mild basilar and perihilar airspace disease. Fidel Myers MD Objective Remarks GENERAL: 32-year-old AA male currently on T piece with no appearance of acute distress SKIN: Warm and dry. No rash HEAD: Atraumatic. Normocephalic. EYES: Pupils equal and round about 3 mm bilaterally and reactive. No scleral icterus. No injection or drainage. ENT: No nasal bleeding or discharge. Mucous membranes pink and moist. NECK: Trachea midline. No JVD. Tracheostomy is clean dry and intact CARDIOVASCULAR: RRR. S1, S2 no S4. Without murmur RESPIRATORY: Clear to auscultation. Breath sounds equal bilaterally. GASTROINTESTINAL: Abdomen soft, non-tender, nondistended. GJ tube site is clean dry and intact MUSCULOSKELETAL: Extremities without edema. Contracted bilateral upper extremities.. NEUROLOGICAL: Status post tracheostomy. Positive gag. Positive corneal reflex. Withdraws to pain. Procedures 12/10 EEG Date of Insertion: Nov 30, 2017 Date of Removal: Dec 05, 2017 Line: Central Venous Catheter Side: Right Location: Femoral A/P Assessment and Plan Neuro/Psych: Anoxic brain injury Seizure disorder NOS Continue levetiracetam 1000 mg twice a day and phenytoin 200 mg twice a day Acetaminophen 650 mg by G-tube every 6 hours when necessary fever Oxycodone 5 milligrams every 6 hours. As needed pain/home medication Baclofen 20 mg 3 times a day muscle spasticity Seizure precautions 2/4 Dilantin level 9.1. Repeat level 8, 12/09 Dilantin increased 200 mg BID to 3 times a day 12/10- F/U EEG CV: Essential hypertension History of dyslipidemia Lactic acidosis Continue home medications of amlodipine 10 mg daily, metoprolol tartrate 50 mill grams twice a day and hydralazine 50 mg every 8 hours Continue on clonidine 0.1 mg by mouth 3 times a day IV fluids discontinued. Furosemide 40 mg IV 1 now with pleural effusion left side Troponin less than 0.02 admission Lactate 10.2 admission. Repeat lactate level in am Echocardiogram revealed EF 55%. Moderate left effusion. Trivial pericardial effusion. Resp: Chronic respiratory failure Currently on TPs maintain saturations greater than equal to 92%. Currently at 6 L 28% Wean to trach collar as tolerated Chest x-ray 11/30 revealed no acute findings Albuterol/ipratropium aerosols every 6 hours with albuterol aerosols every 2 hours. Dyspnea Hypertonic saline aerosols every 6 hours thin secretions, discontinued 12/08 guaifenesin liquid 400 mg every 8 hours GI: Gastroesophageal reflux disease Elevated AST Vital 1.5 goal 90 cc an hour per J-tube Lansoprazole 30 mg daily for GI prophylaxis. On famotidine 20 twice a day and ranitidine 150 mg twice a day at skilled nursing Docusate sodium/senna 1 tablet twice a day for bowel regimen : Tello catheter if indicated for accurate I's and O's in a critically ill patient Endo: Diabetes mellitus History of pancreatitis Sliding-scale insulin with Novulin R medium protocol Accu checks 6 every 6 hours to maintain euglycemia Renal: Acute kidney injury - resolved Aggressive hydration. Monitor urine output Accurate I's and O's Monitor BMP Heme: Normocytic anemia Chronic Apixaban use Resumed apixaban 5 mg twice a day Monitor CBC daily. Follow trends ID: Sputum with multidrug-resistant Pseudomonas/ESBL positive Escherichia coli MRSA positive Consult infectious disease. Droplet precautions. Contact precautions. 11/30 Blood cultures 2, UA no growth to date, sputum MDRO Pseudomonas, gram-negative willa, ESBL positive Escherichia coli Urine Legionella, pneumococcal and influenza all negative Piperacillin/tazobactam and vancomycin day #6 Mupirocin twice a day to affected areas for universal Protocol decolonization of [facility] 12/09-pancultured- NGTD FEN: Replace electrolytes as clinically indicated Holding home dose of potassium chloride 20 mEq twice a day. Resumed 2/3 Free water decreased to 150 cc every 6 hours MSK: Muscle contractions PT/OT evaluate and treat Continue baclofen as above Access - Right femoral central line placed 11/30 by ED physician. Discontinued 2/3 Prophylaxis - GI - lansoprazole - DVT - SCD/ Apixaban Level II follow-up Dispo: Plan transfer to long-term ventilator unit when bed availability occurs. Physician Ruth Serna MD Dec 10, 2017 10:21
[2017-12-10] MEDS: LORazepam 2 MG/ML VIAL IV PUSH PRN (11:24)
--- NOTE | 2017-12-10 13:23 | HHI.IDPN ---
Note Infectious Disease Note Patient had seizure episode this am. On O2 via t-piece. Temp of 100.9 axillary. 32-year-old black male who presented to the emergency department from a nursing care facility. History of brain trauma with anoxic encephalopathy. He has chronic tracheostomy and PEG. The patient was sent to the emergency department because he was tachycardic and diaphoretic. He had temperature of 100.4 degrees and heart rate of 121, respiratory rate 28. Lactic acid level was 10.6. PAST MEDICAL HISTORY 1. Anoxic encephalopathy following cardiac arrest. 2. Tracheostomy and PEG tube placement in July 2015. 3. Seizure disorder. 4. Diabetes mellitus. 5. History of pancreatitis. 6. Gastroesophageal reflux disease. 7. 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 ALLERGIES No known drug allergies. MEDICATIONS 1. Zerbaxa. 2. Levaquin. OBJECTIVE: Vital Signs Date Time Temp Pulse Resp B/P (MAP) Pulse Ox O2 Delivery O2 Flow Rate FiO2 12/10/17 06:00 104 12/10/17 06:00 99.9 104 22 142/78 (99) 100 12/10/17 04:00 84 12/10/17 04:00 98.7 84 25 115/83 (94) 100 12/10/17 02:00 104 12/10/17 00:00 78 12/10/17 00:00 98.6 78 26 113/67 (82) 99 12/09/17 22:00 84 12/09/17 20:42 100 T-piece 5.00 28 12/09/17 20:00 64 12/09/17 20:00 98.9 64 34 112/60 (77) 100 12/09/17 19:00 100 T-Piece 28 12/09/17 18:00 68 21 117/72 (87) 100 12/09/17 18:00 68 12/09/17 17:00 74 24 123/80 (94) 98 12/09/17 16:00 64 12/09/17 16:00 64 25 115/72 (86) 99 12/09/17 14:00 88 Laboratory Tests Test 12/09/17 04:30 12/10/17 04:45 White Blood Count 4.7 TH/MM3 6.1 TH/MM3 Red Blood Count 4.09 MIL/MM3 4.34 MIL/MM3 Hemoglobin 12.8 GM/DL 13.5 GM/DL Hematocrit 37.4 % 39.1 % Mean Corpuscular Volume 91.4 FL 90.2 FL Mean Corpuscular Hemoglobin 31.4 PG 31.2 PG Mean Corpuscular Hemoglobin Concent 34.4 % 34.5 % Red Cell Distribution Width 14.4 % 14.9 % Platelet Count 199 TH/MM3 230 TH/MM3 Mean Platelet Volume 9.5 FL 9.1 FL Neutrophils (%) (Auto) 55.6 % Lymphocytes (%) (Auto) 29.4 % Monocytes (%) (Auto) 12.9 % Eosinophils (%) (Auto) 1.6 % Basophils (%) (Auto) 0.5 % Neutrophils # (Auto) 3.4 TH/MM3 Lymphocytes # (Auto) 1.8 TH/MM3 Monocytes # (Auto) 0.8 TH/MM3 Eosinophils # (Auto) 0.1 TH/MM3 Basophils # (Auto) 0.0 TH/MM3 CBC Comment DIFF FINAL Differential Comment Laboratory Tests Test 12/09/17 04:30 12/09/17 16:33 12/10/17 04:45 Blood Urea Nitrogen 16 MG/DL 15 MG/DL Creatinine 0.67 MG/DL 0.72 MG/DL Random Glucose 106 MG/DL 87 MG/DL Calcium Level 8.9 MG/DL 8.9 MG/DL Sodium Level 140 MEQ/L 140 MEQ/L Potassium Level 3.9 MEQ/L 4.0 MEQ/L Chloride Level 105 MEQ/L 106 MEQ/L Carbon Dioxide Level 27.8 MEQ/L 26.7 MEQ/L Anion Gap 7 MEQ/L 7 MEQ/L Estimat Glomerular Filtration Rate 169 ML/MIN 155 ML/MIN Lactic Acid Level 1.7 mmol/L Microbiology Date/Time Source Procedure Growth Status 12/09/17 12:35 Blood Peripheral Aerobic Blood Culture - Preliminary NO GROWTH IN 1 DAY Resulted 12/09/17 12:35 Blood Peripheral Anaerobic Blood Culture - Preliminary NO GROWTH IN 1 DAY Resulted 12/09/17 12:30 Blood Peripheral Aerobic Blood Culture - Preliminary NO GROWTH IN 1 DAY Resulted 12/09/17 12:30 Blood Peripheral Anaerobic Blood Culture - Preliminary NO GROWTH IN 1 DAY Resulted 12/09/17 11:30 Sputum Endotracheal Gram Stain - Final Resulted 12/09/17 11:30 Sputum Culture - Preliminary Gram Negative Tobin Resulted 12/09/17 11:41 Urine Catheterized Urine Urine Culture - Preliminary NO GROWTH IN 24 HOURS. Resulted IMAGING: Chest X-Ray 12/10/17599 Signed Impressions: Service Date/Time: December 03:25 - CONCLUSION: Underinflation with mild bibasilar opacity representing atelectasis or consolidation. Orlando Christianson MD Chest X-Ray 12/07/17599 Signed Impressions: Service Date/Time: Thursday, December 07, 2017 03:33 - CONCLUSION: Stable chest x-ray. No acute finding is identified. Orlando Christianson MD Chest X-Ray 12/06/17599 Signed Impressions: Service Date/Time: Wednesday, December 06, 2017 04:14 - CONCLUSION: No significant change has occurred. Gary Ross MD Chest X-Ray 12/03/17599 Signed Impressions: Service Date/Time: December 03:33 - CONCLUSION: Increase in size of cardiac silhouette since November 30. Cannot exclude pericardial effusion. Mild basilar and perihilar airspace disease. Fidel Myers MD PHYSICAL EXAMINATION GENERAL: No acute distress. HEAD, EYES, EARS, NOSE, AND THROAT: The pupils are reactive. No icterus. NECK: No swelling or adenopathy. Tracheostomy tube in place LUNGS: Basilar rhonchi. HEART: Regular S1 and S2 without audible murmurs. ABDOMEN: Soft. (+) BS. EXTREMITIES: No clubbing, cyanosis or edema. SKIN: No diffuse rash. NEUROLOGIC: Unable to fully assess. PSYCH: Unable to fully assess. IMPRESSION 1. Multiple drug-resistant sputum culture previously ESBL e. coli and pseudomonas. Pneumonia vs tracheobronchitis or colonization. New culture has Stenotophomonas and MDR Pseudomonas. - Repeat culture pending. 2. New fever. 3. Sepsis on admission. 4. Chronic tracheostomy. 5. Seizure. RECOMMEND: 1. Continue Zerbaxa. 2. Continue Levaquin. 3. Follow the new cultures. 4. Monitor clinical status. Welsy Rosado MD Dec 10, 2017 13:23
[2017-12-10] MEDS: LEVOFLOXACIN 750 MG PREMIX INJ 150 ML IV SCH (22:01)
[2017-12-11] VITALS (11 sets, daily range): BP systolic 112–136; BP diastolic 65–78; PULSE 74–156; RESP 17–32; TEMP 98.1–100.5; O2SAT 100
[2017-12-11] MEDS: PHENYTOIN SUSP 100 MG/4 ML CUP PO SCH ×3 (01:13→17:14)
[2017-12-11] MEDS: hydrALAZINE HCL 50 MG TAB G-TUBE SCH ×3 (01:54→23:44)
[2017-12-11] MEDS: cloNIDine HCL 0.1 MG TAB PO SCH ×3 (01:54→23:44)
[2017-12-11] MEDS ORDERED: FOSPHENYTOIN INJ 1,000 MGPE in SODIUM CHLORIDE 0.9% INJ 50 ML IV ONE ×4 (03:45)
[2017-12-11] MEDS: LORazepam 2 MG/ML VIAL IV PUSH PRN ×2 (03:51→04:27)
[2017-12-11 03:59] LABS: HEMATOCRIT 41.5 % (39.0-51.0); HEMOGLOBIN 13.9 GM/DL (13.0-17.0); MEAN CELL VOLUME 91.7 FL (80.0-100.0); MEAN CORPUSCULAR HEMOGLOBIN 30.8 PG (27.0-34.0); MEAN CORPUSCULAR HGB CONC 33.6 % (32.0-36.0); MEAN PLATELET VOLUME 9.5 FL (7.0-11.0); PLATELET COUNT 273 TH/MM3 (150-450); RED BLOOD COUNT 4.52 MIL/MM3 (4.50-5.90); RED CELL DISTRIBUTION WIDTH 14.9 % (11.6-17.2); WHITE BLOOD COUNT 6.1 TH/MM3 (4.0-11.0)
[2017-12-11 04:20] LABS: BICARBONATE 25.8 MEQ/L (21.0-32.0); BLOOD UREA NITROGEN 15 MG/DL (7-18); CHLORIDE 105 MEQ/L (98-107); CREATININE 0.79 MG/DL (0.60-1.30); GLOMERULAR FILTRATION RATE 140 ML/MIN (>89); GLUCOSE,RANDOM 113 MG/DL (74-106); MAGNESIUM 2.2 MG/DL (1.5-2.5); PHOSPHORUS 3.3 MG/DL (2.5-4.9); SODIUM (NA) 141 MEQ/L (136-145)
[2017-12-11] MEDS: ACETAMINOPHEN 650 MG/20.3 ML UDC G-TUBE PRN (04:27)
[2017-12-11 04:34] LABS: DIGOXIN LESS THAN 0.1 NG/ML (0.8-2.0)
[2017-12-11] MEDS ORDERED: LORazepam 2 MG/ML VIAL IV PUSH PRN (05:30)
--- NOTE | 2017-12-11 05:32 | MG ---
cc: EVELIA DOWNS M.D. Lab No: Date: 12/10/2017 Age: 32 Sex: M Race: DATE OF 1985 AGE [age] years old EEG NUMBER [id number] Sanchez ROOM 520. NOTE With photic done. There was no sedation. HISTORY Sudden onset of tachycardia, tachypnea, fever on 12/10/2017, rhythmic movements noted at that time. History now of anoxic encephalopathy, tracheostomy, lipidemia, pancreatitis. MEDICATIONS 1. Dilantin. 2. Keppra. 3. Eliquis. 4. Levaquin. 5. Norvasc. DESCRIPTION OF RECORD The background is significantly attenuated, low amplitude. Dominant delta rhythm with some sinus tachycardia possibly on the EKG. Artifact, ICU-related. Photic stimulation is performed. There is no driving response. No epileptic activity. IMPRESSION Severely slow background consistent with what looks like a diffuse cerebral dysfunction that can be seen in an anoxic encephalopathic picture. Clinical correlation. MD MARTI Velazco/MARISA /2:08 PM /5:22 AM
[2017-12-11] MEDS: CEFTOLOZANE-TAZOBACTAM INJ 1,500 MG in SODIUM CHLORIDE 0.9% INJ 100 ML IV SCH ×3 (05:52→23:46)
[2017-12-11] MEDS: guaiFENesin SOLUTION 200 MG/10 ML CUP PO SCH ×3 (05:53→23:43)
[2017-12-11] MEDS: FREE WATER G-TUBE SCH ×3 (05:53→17:14)
[2017-12-11] MEDS: INSULIN NovoLIN REGULAR SUPPLEMENTAL SCALE SQ SCH ×3 (05:53→17:13)
[2017-12-11] MEDS: MUPIROCIN 2% OINT 1 APPLIC/GM SYR EACH NARE SCH ×2 (09:00→23:41)
[2017-12-11] MEDS: SODIUM CHLORIDE 0.9% FLUSH 10 ML FLUSH IV FLUSH SCH ×2 (09:00→21:00)
[2017-12-11] MEDS: HYOSCYAMINE SOLN 0.125 MG/ML 15 ML BTL G-TUBE SCH ×2 (09:00→23:14)
[2017-12-11] MEDS: POTASSIUM CHLORIDE 20 MEQ PWD PACKET G-TUBE SCH (09:00)
[2017-12-11] MEDS: DOCUSATE SODIUM 50 MG/SENNA 8.6 MG TAB PO SCH ×2 (09:46→23:45)
[2017-12-11] MEDS: LANSOPRAZOLE SOLUTAB 30 MG TAB G-TUBE SCH (09:46)
[2017-12-11] MEDS: BACLOFEN 20 MG TAB G-TUBE SCH ×3 (09:46→17:14)
[2017-12-11] MEDS: METOPROLOL TARTRATE 50 MG TAB PO SCH ×2 (09:46→23:44)
[2017-12-11] MEDS: LORATADINE 10 MG TAB G-TUBE SCH (09:46)
[2017-12-11] MEDS: levETIRAcetam 500 MG/5 ML UDC G-TUBE SCH ×2 (09:54→23:42)
[2017-12-11] MEDS: APIXABAN 5 MG TABLET G-TUBE SCH (09:54)
--- NOTE | 2017-12-11 13:19 | HHI.CCPN ---
Subjective Remarks/Hospital Course This is a 32-year-old AA male. Date of admission 11/30/2017. 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 He has known seizure disorder on phenytoin and levetiracetam. Patient presents from [facility] with onset of pyrexia, tachycardia and change in mental status. Patient is to show preservation 103 with a heart rate in the 190s. Patient received 3 L normal saline bolus was started on vancomycin and piperacillin/tazobactam central was placed in the right femoral region secondary to poor prophylaxis. He also received acetaminophen. His fevers abated. Heart rate currently 120s. 12/01 No events overnight. On TP's with 35% FIO2. Afebrile. 12/02: Afebrile. Resting in bed in no acute distress. On T piece at 6 L/35%. Sputum with schmitt resistant Pseudomonas. 12/03: Afebrile. Copious secretions from tracheostomy site. Remains on T piece 6 L is 35%. Sputum with ESBL positive Escherichia coli/resistant Pseudomonas. Remains on piperacillin/tazobactam. Tolerating tube feeding. Positive BM. 2: Afebrile. Continues with copious reddish-brown secretions from 6.0 Shiley trach tube. Remains on TP 6 L 35%. Remains on piperacillin/tazobactam. Tolerating tube feeding. Positive BM. Subjective 12/05: Afebrile. Continues with copious secretions from trach. Currently on 6 L /28% FiO2. Tolerating tube feeds. Positive BM 4 12/06: Afebrile. No acute changes. Noted excessive secretions continued to emanate from tracheostomy site. 12/07: Noted only moderate secretions from tracheostomy site is afternoon. The patient continues on TPiece. 12/08:No acute events overnight. Continues on TPiece .35% 12/09: Overnight patient spiked a temperature was 101.0. Patient was pancultured this a.m., awaiting results. Patient continues on T piece without any respiratory difficulty. Hypertonic saline nebs discontinued. 12/10: Early this a.m. patient was noted to have rhythmic type movement of lower extremities bilaterally not witnessed before. Patient noted to have subtherapeutic Dilantin level, and dosage was increased yesterday. EEG pending this a.m.. Repeat dig level in a.m. 12/11 Remains on TP, EEG shows encephalopathy. Breathing comfortably and not on pressors. T Max 100 Objective Vital Signs Date Time Temp Pulse Resp B/P (MAP) Pulse Ox O2 Delivery O2 Flow Rate FiO2 12/11/17 08:00 156 12/11/17 08:00 100.5 32 136/70 (92) 100 12/11/17 07:58 6.00 28 12/11/17 07:00 T-Piece Intake and Output 12/11/17 12/11/17 12/12/17 08:00 16:00 00:00 Intake Total 1399 ml Output Total 985 ml Balance 414 ml Result Diagram: 12/11/17 0300 12/11/17 0300 Other Results Microbiology Date/Time Source Procedure Growth Status 12/09/17 11:41 Urine Catheterized Urine Urine Culture - Final NO GROWTH IN 48 HOURS. Complete Imaging Last Impressions Chest X-Ray 12/03/17 0600 Signed Impressions: Service Date/Time: December 03:33 - CONCLUSION: Increase in size of cardiac silhouette since November 30. Cannot exclude pericardial effusion. Mild basilar and perihilar airspace disease. Fidel Myers MD Objective Remarks GENERAL: 32-year-old AA male currently on T piece with no appearance of acute distress SKIN: Warm and dry. No rash HEAD: Atraumatic. Normocephalic. EYES: Pupils equal and round about 3 mm bilaterally and reactive. ENT: No nasal bleeding or discharge. Mucous membranes pink and moist. NECK: Trachea midline. No JVD. Tracheostomy is clean dry and intact CARDIOVASCULAR: RRR. S1, S2 no S4. Without murmur RESPIRATORY: Clear to auscultation. Breath sounds equal bilaterally. GASTROINTESTINAL: Abdomen soft, non-tender, nondistended. GJ tube site is clean dry and intact MUSCULOSKELETAL: Extremities without edema. Contracted bilateral upper extremities.. NEUROLOGICAL: Status post tracheostomy. Positive gag. Positive corneal reflex. Withdraws to pain. Procedures 12/10 EEG Date of Insertion: Nov 30, 2017 Date of Removal: Dec 05, 2017 Line: Central Venous Catheter Side: Right Location: Femoral A/P Assessment and Plan Neuro/Psych: Anoxic brain injury Seizure disorder NOS Continue levetiracetam 1000 mg twice a day and phenytoin 200 mg twice a day Acetaminophen 650 mg by G-tube every 6 hours when necessary fever Oxycodone 5 milligrams every 6 hours. As needed pain/home medication Baclofen 20 mg 3 times a day muscle spasticity Seizure precautions 12/06 Dilantin level 9.1. Repeat level 8, 12/09 Dilantin increased 200 mg BID to 3 times a day 12/10- F/U EEG-severe encephalopathy no active seizures CV: Essential hypertension History of dyslipidemia Lactic acidosis Continue home medications of amlodipine 10 mg daily, metoprolol tartrate 50 mill grams twice a day and hydralazine 50 mg every 8 hours Continue on clonidine 0.1 mg by mouth 3 times a day IV fluids discontinued. Furosemide 40 mg IV 1 now with pleural effusion left side Troponin less than 0.02 admission Lactate 10.2 admission. Repeat lactate level in am Echocardiogram revealed EF 55%. Moderate left effusion. Trivial pericardial effusion. Resp: Chronic respiratory failure Currently on TPs maintain saturations greater than equal to 92%. Wean to trach collar as tolerated. Chest x-ray 11/30 revealed no acute findings Albuterol/ipratropium aerosols every 6 hours with albuterol aerosols every 2 hours. Dyspnea Hypertonic saline aerosols every 6 hours thin secretions, discontinued 12/08 guaifenesin liquid 400 mg every 8 hours GI: Gastroesophageal reflux disease Elevated AST Vital 1.5 goal 90 cc an hour per J-tube Lansoprazole 30 mg daily for GI prophylaxis. On famotidine 20 twice a day and ranitidine 150 mg twice a day at assisted Docusate sodium/senna 1 tablet twice a day for bowel regimen : Tello catheter if indicated for accurate I's and O's in a critically ill patient Endo: Diabetes mellitus History of pancreatitis Sliding-scale insulin with Novulin R medium protocol Accu checks 6 every 6 hours to maintain euglycemia Renal: Acute kidney injury - resolved Aggressive hydration. Monitor urine output Accurate I's and O's Monitor BMP Heme: Normocytic anemia Chronic Apixaban use Resumed apixaban 5 mg twice a day Monitor CBC daily. Follow trends ID: Sputum with multidrug-resistant Pseudomonas/ESBL positive Escherichia coli MRSA positive ID following. Droplet precautions. Contact precautions. 11/30 Blood cultures 2, UA no growth to date, sputum MDRO Pseudomonas, gram-negative willa, ESBL positive Escherichia coli Urine Legionella, pneumococcal and influenza all negative Continue Continue Zerbaxa. Continue Levaquin. Mupirocin twice a day to affected areas for universal Protocol decolonization of [facility] 12/09-pancultured- NGTD FEN: Replace electrolytes as clinically indicated Holding home dose of potassium chloride 20 mEq twice a day. Free water decreased to 150 cc every 6 hours MSK: Muscle contractions PT/OT evaluate and treat Continue baclofen as above Access - Right femoral central line placed 11/30 by ED physician. Discontinued 12/05 Prophylaxis - GI - lansoprazole - DVT - SCD/ Apixaban Level II follow-up Dispo: Transfer Medsurg near nurses station with Tele, hospitalist to assume care in a.m. 12/12/17. Consult with gas compressor operator to assist with chronic trach management/chronic respiratory failure Rosa Perry MD Dec 11, 2017 13:19
--- NOTE | 2017-12-11 13:22 | HHI.IDPN ---
Note Infectious Disease Note Patient does not appear to be in distress. On O2 via t-piece. Temp of 100.5 axillary. Light secretions via trach. Discussed with RN. Patient to be transferred to the medical floor. 32-year-old black male who presented to the emergency department from a nursing care facility. History of brain trauma with anoxic encephalopathy. He has chronic tracheostomy and PEG. The patient was sent to the emergency department because he was tachycardic and diaphoretic. He had temperature of 100.4 degrees and heart rate of 121, respiratory rate 28. Lactic acid level was 10.6. PAST MEDICAL HISTORY 1. Anoxic encephalopathy following cardiac arrest. 2. Tracheostomy and PEG tube placement in July 2015. 3. Seizure disorder. 4. Diabetes mellitus. 5. History of pancreatitis. 6. Gastroesophageal reflux disease. 7. 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 ALLERGIES No known drug allergies. MEDICATIONS 1. Zerbaxa. 2. Levaquin. Current Medications Medications (Trade) Dose Ordered Sig/Julian Route PRN Reason Start Time Stop Time Status Last Admin Dose Admin Sodium Chloride (NS Flush) 2 ml UNSCH PRN IV FLUSH FLUSH AFTER USING IV ACCESS 11/30/17 11:15 12/10/17 08:42 Sodium Chloride (NS Flush) 2 ml BID IV FLUSH 11/30/17 21:00 12/11/17 09:00 Lansoprazole (Prevacid Odt) 30 mg DAILY G-TUBE 12/01/17 09:00 12/11/17 09:46 Lorazepam (Ativan Inj) 2 mg Q4H PRN IV PUSH Agitation/Sedation 11/30/17 11:15 12/11/17 04:27 Artificial Tears (Tears Naturale Opth Soln) 1 drop TID EACH EYE 11/30/17 13:00 12/10/17 12:55 Ondansetron HCl (Zofran Inj) 4 mg Q6H PRN IV PUSH NAUSEA OR VOMITING 11/30/17 11:15 Albuterol Sulfate (Albuterol Neb) 2.5 mg Q2HR NEB PRN INH SOB/WHEEZING 11/30/17 11:15 12/09/17 20:42 Miscellaneous Information 1 Q361D XX 11/30/17 11:15 Chlorhexidine Gluconate (Chlorhexidine 2% Cloth) Taper DAILY@04 TOP 12/01/17 04:00 11/27/18 03:59 12/10/17 04:00 Chlorhexidine Gluconate (Chlorhexidine 2% Cloth) 3 pack UNSCH PRN TOP HYGIENIC CARE 11/30/17 11:15 Senna/Docusate Sodium (Shala-Colace) 1 tab BID PO 11/30/17 21:00 12/11/17 09:46 Magnesium Hydroxide (Milk Of Magnesia Liq) 30 ml Q12H PRN PO Mild constipation 11/30/17 11:15 Sennosides (Senokot) 17.2 mg Q12H PRN PO Moderate constipation 11/30/17 11:15 Bisacodyl (Dulcolax Supp) 10 mg DAILY PRN RECTAL SEVERE CONSITIPATION 11/30/17 11:15 Lactulose (Lactulose Liq) 30 ml DAILY PRN PO SEVERE CONSITIPATION 11/30/17 11:15 Amlodipine Besylate (Norvasc) 10 mg DAILY G-TUBE 12/01/17 09:00 12/11/17 09:46 Apixaban (Eliquis) 5 mg BID G-TUBE 11/30/17 21:00 12/11/17 09:54 Baclofen (Lioresal) 20 mg TID G-TUBE 11/30/17 13:00 12/11/17 09:46 Hydralazine HCl (Apresoline) 50 mg Q8HR G-TUBE 11/30/17 14:00 12/08/17 06:08 Levetriacetam (Keppra Liq) 1,000 mg BID G-TUBE 11/30/17 21:00 12/11/17 09:54 Loratadine (Claritin) 10 mg DAILY G-TUBE 12/01/17 09:00 12/11/17 09:46 Metoprolol Tartrate (Lopressor) 50 mg BID PO 11/30/17 21:00 12/11/17 09:46 Oxycodone HCl (Roxicodone) 5 mg Q6H PRN PO PAIN 1-11/30/17 11:30 11/30/17 13:41 Hyoscyamine Sulfate (Levsin Liq) 0.125 mg BID G-TUBE 11/30/17 21:00 12/11/17 09:00 Dextrose (D50w (Vial) Inj) 50 ml UNSCH PRN IV PUSH HYPOGLYCEMIA-SEE COMMENTS 11/30/17 11:30 Glucagon (Glucagon Inj) 1 mg UNSCH PRN OTHER HYPOGLYCEMIA-SEE COMMENTS 11/30/17 11:30 Insulin Human Regular (NovoLIN R SUPPLEMENTAL SCALE) 1 Q6HR SQ 11/30/17 12:00 Acetaminophen (Tylenol 650 Mg/ 20 ml Liq) 650 mg Q6H PRN G-TUBE fever 11/30/17 12:00 12/11/17 04:27 Potassium Chloride 100 ml @ 50 mls/hr Q2H PRN IV For Potassium 2.8 - 3.2 mEq/L 11/30/17 12:00 Potassium Chloride 100 ml @ 50 mls/hr Q2H PRN IV For Potassium 2.8 - 3.2 mEq/L 11/30/17 12:00 Potassium Bicarb/ Potassium Chloride (K-Lyte Cl Eff) 50 meq UNSCH PRN PO For Potassium 3.3 - 3.5 mEq/L 11/30/17 12:00 Potassium Chloride 100 ml @ 25 mls/hr UNSCH PRN IV For Potassium 3.3 - 3.5 mEq/L 11/30/17 12:00 Potassium Chloride 100 ml @ 50 mls/hr Q2H PRN IV For Potassium 3.3 - 3.5 mEq/L 11/30/17 12:00 Magnesium Sulfate 4 gm/Sodium Chloride 100 ml @ 50 mls/hr UNSCH PRN IV For Magnesium 0.9 - 1.1 mg/dL 11/30/17 12:00 Magnesium Oxide (Mag-Ox) 800 mg UNSCH PRN PO For Magnesium 1.2 - 1.6 mg/dL 11/30/17 12:00 Magnesium Sulfate 2 gm/Sodium Chloride 100 ml @ 50 mls/hr UNSCH PRN IV For Magnesium 1.2 - 1.6 mg/dL 11/30/17 12:00 Potassium Phosphate (K-Phos) 2,000 mg Q4H PRN PO For Phosphorus < 2.5 mg/dL 11/30/17 12:00 Sodium Phosphate 30 mmol/Sodium Chloride 250 ml @ 42 mls/hr UNSCH PRN IV For Phosphorus < 2.5 mg/dL 11/30/17 12:00 12/01/17 06:22 Potassium Phosphate (K-Phos) 2,000 mg UNSCH PRN PO/TUBE SEE LABEL COMMENTS 11/30/17 12:00 Potassium Phosphate 30 mmol/ Sodium Chloride 260 ml @ 42 mls/hr UNSCH PRN IV SEE LABEL COMMENTS 11/30/17 12:00 Morphine Sulfate (Morphine Inj) 2 mg Q3H PRN IV PUSH breakthrough pain 11/30/17 14:15 12/05/17 14:18 Clonidine (Catapres) 0.1 mg Q8HR PO 11/30/17 14:15 12/08/17 06:08 Mupirocin (Bactroban Nasal 2% Oint) Taper BID EACH NARE 12/04/17 21:00 11/30/18 20:59 12/10/17 22:02 Potassium Chloride (KCl Powder) 20 meq DAILY G-TUBE 12/05/17 09:00 12/11/17 09:00 Water (Free Water) 150 ml Q6H G-TUBE 12/05/17 12:00 12/11/17 05:53 Guaifenesin (Robitussin Liq) 400 mg Q8HR PO 12/05/17 14:00 12/11/17 05:53 Levofloxacin/ Dextrose 150 ml @ 100 mls/hr Q24H IV 12/06/17 22:00 12/10/17 22:01 Ceftolozane/ Tazobactam 1500 mg/Sodium Chloride 100 ml @ 100 mls/hr Q8HR IV 12/06/17 22:00 12/11/17 05:52 Phenytoin (Dilantin Liq) 200 mg Q8H PO 12/09/17 17:00 12/11/17 01:13 Lorazepam (Ativan Inj) 2 mg Q10M PRN IV PUSH SEIZURES 12/11/17 05:30 OBJECTIVE: Vital Signs Date Time Temp Pulse Resp B/P (MAP) Pulse Ox O2 Delivery O2 Flow Rate FiO2 12/11/17 08:00 156 12/11/17 08:00 100.5 156 32 136/70 (92) 100 12/11/17 07:58 100 6.00 28 12/11/17 07:00 100 T-Piece 28 12/11/17 06:00 99 12/11/17 04:00 100.5 156 32 136/70 (92) 100 12/11/17 04:00 156 12/11/17 02:00 90 12/11/17 00:00 99.3 74 25 117/68 (84) 100 12/11/17 00:00 74 12/10/17 22:00 90 12/10/17 20:45 100 T-piece 5.00 28 12/10/17 20:00 74 12/10/17 20:00 99.2 74 12 133/72 (92) 100 12/10/17 19:00 100 T-Piece 28 12/10/17 18:00 64 12/10/17 16:00 99.7 63 10 93/51 (65) 100 12/10/17 16:00 88 12/10/17 14:00 78 Laboratory Tests Test 12/10/17 04:45 12/11/17 03:00 White Blood Count 6.1 TH/MM3 6.1 TH/MM3 Red Blood Count 4.34 MIL/MM3 4.52 MIL/MM3 Hemoglobin 13.5 GM/DL 13.9 GM/DL Hematocrit 39.1 % 41.5 % Mean Corpuscular Volume 90.2 FL 91.7 FL Mean Corpuscular Hemoglobin 31.2 PG 30.8 PG Mean Corpuscular Hemoglobin Concent 34.5 % 33.6 % Red Cell Distribution Width 14.9 % 14.9 % Platelet Count 230 TH/MM3 273 TH/MM3 Mean Platelet Volume 9.1 FL 9.5 FL Neutrophils (%) (Auto) 55.6 % Lymphocytes (%) (Auto) 29.4 % Monocytes (%) (Auto) 12.9 % Eosinophils (%) (Auto) 1.6 % Basophils (%) (Auto) 0.5 % Neutrophils # (Auto) 3.4 TH/MM3 Lymphocytes # (Auto) 1.8 TH/MM3 Monocytes # (Auto) 0.8 TH/MM3 Eosinophils # (Auto) 0.1 TH/MM3 Basophils # (Auto) 0.0 TH/MM3 CBC Comment DIFF FINAL Differential Comment Laboratory Tests Test 12/09/17 16:33 12/10/17 04:45 12/11/17 03:00 Lactic Acid Level 1.7 mmol/L Blood Urea Nitrogen 15 MG/DL 15 MG/DL Creatinine 0.72 MG/DL 0.79 MG/DL Random Glucose 87 MG/DL 113 MG/DL Calcium Level 8.9 MG/DL 9.0 MG/DL Sodium Level 140 MEQ/L 141 MEQ/L Potassium Level 4.0 MEQ/L 3.7 MEQ/L Chloride Level 106 MEQ/L 105 MEQ/L Carbon Dioxide Level 26.7 MEQ/L 25.8 MEQ/L Anion Gap 7 MEQ/L 10 MEQ/L Estimat Glomerular Filtration Rate 155 ML/MIN 140 ML/MIN Phosphorus Level 3.3 MG/DL Magnesium Level 2.2 MG/DL Microbiology Date/Time Source Procedure Growth Status 12/09/17 12:35 Blood Peripheral Aerobic Blood Culture - Preliminary NO GROWTH IN 2 DAYS Resulted 12/09/17 12:35 Blood Peripheral Anaerobic Blood Culture - Preliminary NO GROWTH IN 2 DAYS Resulted 12/09/17 12:30 Blood Peripheral Aerobic Blood Culture - Preliminary NO GROWTH IN 2 DAYS Resulted 12/09/17 12:30 Blood Peripheral Anaerobic Blood Culture - Preliminary NO GROWTH IN 2 DAYS Resulted 12/09/17 11:30 Sputum Endotracheal Gram Stain - Final Resulted 12/09/17 11:30 Sputum Culture - Preliminary Gram Negative Tobin Resulted 12/09/17 11:41 Urine Catheterized Urine Urine Culture - Final NO GROWTH IN 48 HOURS. Complete IMAGING: Chest X-Ray [id number]/10/17599 Signed Impressions: Service Date/Time: December 03:25 - CONCLUSION: Underinflation with mild bibasilar opacity representing atelectasis or consolidation. Orlando Christianson MD Chest X-Ray 12/07/17599 Signed Impressions: Service Date/Time: Thursday, December 07, 2017 03:33 - CONCLUSION: Stable chest x-ray. No acute finding is identified. Orlando Christianson MD Chest X-Ray 12/06/17599 Signed Impressions: Service Date/Time: Wednesday, December 06, 2017 04:14 - CONCLUSION: No significant change has occurred. Gary Ross MD Chest X-Ray 12/03/17599 Signed Impressions: Service Date/Time: December 03:33 - CONCLUSION: Increase in size of cardiac silhouette since November 30. Cannot exclude pericardial effusion. Mild basilar and perihilar airspace disease. Fidel Myers MD PHYSICAL EXAMINATION GENERAL: No acute distress. HEAD, EYES, EARS, NOSE, AND THROAT: The pupils are reactive. No icterus. NECK: No swelling or adenopathy. Tracheostomy tube in place LUNGS: Basilar rhonchi bilateral. HEART: Regular S1 and S2 without audible murmurs. ABDOMEN: Soft. (+) BS. EXTREMITIES: No clubbing, cyanosis or edema. SKIN: No diffuse rash. NEUROLOGIC: Unable to fully assess. PSYCH: Unable to fully assess. IMPRESSION 1. Multiple drug-resistant sputum culture previously ESBL e. coli and pseudomonas. Pneumonia vs tracheobronchitis or colonization. New culture has Stenotophomonas and MDR Pseudomonas. - Repeat culture pending. 2. Fever. 3. Sepsis on admission. 4. Chronic tracheostomy. 5. Seizure vs spasms. RECOMMEND: 1. Continue Zerbaxa. 2. Stop Levaquin. 3. Follow the sputum culture. 4. Monitor clinical status. Wesly Rosado MD Dec 11, 2017 13:22
[2017-12-11] MEDS: ARTIFICIAL TEARS OPTH SOLN 15 ML BTL EACH EYE SCH ×2 (14:43→17:49)
--- NOTE | 2017-12-11 19:31 | PD.CONS ---
History of Present Illness Consult Requested By Primary Care Physician Britton Samuels MD Diagnoses: History of Present Illness 32-year-old gentleman who is known to have history of anoxic encephalopathy. He is status post PEG tube insertion and tracheostomy. The patient is currently on a T-bar. No patient is gurgly and found that he has secretions. No is currently on 6 L oxygen. I was consulted for the management of his tracheostomy. The patient is nonverbal. Review of systems not obtainable I reviewed on his history and medical records and notes. Past Family Social History Allergies: Coded Allergies: *MDRO Multi-Drug Resistant Organism (Verified Adverse Reaction, Unknown, ) MRSA (sputum) - 04/25/16 & 05/23/16 MRSA PCR Screen POSITIVE - 04/25/2016 ESBL+E.Coli (blood-05/22/16) Physical Exam Vital Signs Vital Signs Date Time Temp Pulse Resp B/P (MAP) Pulse Ox O2 Delivery O2 Flow Rate FiO2 12/11/17 14:45 98.4 75 18 112/65 (81) 100 12/11/17 12:00 156 12/11/17 12:00 100.5 156 32 136/70 (92) 100 12/11/17 10:00 156 12/11/17 10:00 100.5 156 32 136/70 (92) 100 12/11/17 08:00 156 12/11/17 08:00 100.5 156 32 136/70 (92) 100 12/11/17 07:58 100 6.00 28 12/11/17 07:00 100 T-Piece 28 12/11/17 06:00 99 12/11/17 04:00 100.5 156 32 136/70 (92) 100 12/11/17 04:00 156 12/11/17 02:00 90 12/11/17 00:00 99.3 74 25 117/68 (84) 100 12/11/17 00:00 74 12/10/17 22:00 90 12/10/17 20:45 100 T-piece 5.00 28 12/10/17 20:00 74 12/10/17 20:00 99.2 74 12 133/72 (92) 100 Physical Exam PHYSICAL EXAMINATION GENERAL: No acute distress. HEAD, EYES, EARS, NOSE, AND THROAT: No icterus. NECK: No swelling or adenopathy. Tracheostomy tube in place no yellowish or greenish secretions seen LUNGS: Basilar rhonchi bilateral. HEART: Regular S1 and S2 without audible murmurs. ABDOMEN: Soft. EXTREMITIES: No clubbing, cyanosis or edema. SKIN: No diffuse rash. NEUROLOGIC: Nonverbal unresponsive Laboratory Laboratory Tests Test 12/11/17 03:00 12/11/17 03:53 White Blood Count 6.1 Red Blood Count 4.52 Hemoglobin 13.9 Hematocrit 41.5 Mean Corpuscular Volume 91.7 Mean Corpuscular Hemoglobin 30.8 Mean Corpuscular Hemoglobin Concent 33.6 Red Cell Distribution Width 14.9 Platelet Count 273 Mean Platelet Volume 9.5 Blood Urea Nitrogen 15 Creatinine 0.79 Random Glucose 113 Calcium Level 9.0 Phosphorus Level 3.3 Magnesium Level 2.2 Sodium Level 141 Potassium Level 3.7 Chloride Level 105 Carbon Dioxide Level 25.8 Anion Gap 10 Estimat Glomerular Filtration Rate 140 Digoxin Level LESS THAN 0.1 Date/Time Source Procedure Growth Status 12/09/17 12:35 Blood Peripheral Aerobic Blood Culture - Preliminary NO GROWTH IN 2 DAYS Resulted 12/09/17 12:35 Blood Peripheral Anaerobic Blood Culture - Preliminary NO GROWTH IN 2 DAYS Resulted 12/09/17 11:30 Sputum Endotracheal Gram Stain - Final Resulted 12/09/17 11:30 Sputum Culture - Preliminary Gram Negative Tobin Resulted 12/09/17 11:41 Urine Catheterized Urine Urine Culture - Final NO GROWTH IN 48 HOURS. Complete Result Diagram: 12/11/17 0300 12/11/17 0300 Assessment and Plan Assessment and Plan 1. Multiple drug-resistant previously ESBL e. coli and pseudomonas. Pneumonia vs tracheobronchitis . . 2. Fever. 3. Sepsis resolved 4. Chronic tracheostomy. RECOMMEND: Attempt to wean off FiO2 for O2 sat more than or equal to 89% Follow-up on sputum culture If we are able to wean off his FiO2 and his secretions unmanageable we will consider switching him to trach collar Depending on how he does clinically will decide whether he would be a candidate for possible decannulation in the future however based on what I am seeing I doubt that we would be able to achieve that. Thank you for this consultation and I will continue to follow Gio Guy MD Dec 11, 2017 19:31
--- NOTE | 2017-12-11 22:06 | MB ---
cc: LILLIAN BURGER M.D. DATE OF CONSULTATION: 12/11/2017. REASON FOR CONSULTATION: Recurrent seizure. HISTORY OF PRESENT ILLNESS: This is a 32-year-old male who has a history of anoxic encephalopathy due to prolonged cardiac arrest, hypertension as well as secondary seizures on Dilantin and Keppra who was transported from [facility] with fevers, tachycardia due to sepsis. The patient had some seizure activity identified yesterday. His Dilantin level was subtherapeutic. He has since received a bolus of fosphenytoin 1000 milligrams and increased Dilantin. Dilantin level was 8.4 on 12/09. He has had no recurrent seizures. NEUROLOGIC EXAMINATION: VITAL SIGNS: Blood pressure 112/65, pulse 75, respirations 18, temperature 90.4 degrees. HIGHER CORTICAL FUNCTIONS: He is nonresponsive to commands. CRANIAL NERVES: Pupils are reactive. MOTOR: On motor exam he has increased tone in both upper extremities with decorticate posturing. There is no focal deficit. DEEP TENDON REFLEXES: Reflexes 2+ symmetric. LABORATORY DATA: Dilantin level with on 12/09 was 8.4, white count 6100, hemoglobin 13.9, hematocrit 41.5%, platelet count is 273,000. Sodium is 141, potassium 3.7, chloride 105, CO2 25.82, BUN is 15, creatinine 0.79, glucose 140. IMPRESSION: Breakthrough seizure probably related to subtherapeutic Dilantin. RECOMMENDATIONS: 1. Continue current dose of Dilantin which is 2 mg p.o. q.8 h and Keppra 1000 mg b.i.d. 2. Will follow up on a Dilantin level as well. 3. He did have an EEG which revealed diffuse slowing with no active seizure activity but consistent with an encephalopathy. MD DON Phoenix/CHINO /6:14 PM /9:49 PM
[2017-12-12] VITALS (7 sets, daily range): BP systolic 104–143; BP diastolic 58–75; PULSE 71–163; RESP 18–22; TEMP 98.3–99.6; O2SAT 95–100
[2017-12-12] MEDS: APIXABAN 5 MG TABLET G-TUBE SCH ×3 (01:18→21:47)
[2017-12-12] MEDS: PHENYTOIN SUSP 100 MG/4 ML CUP PO SCH ×3 (01:19→17:04)
[2017-12-12] MEDS: CHLORHEXIDINE GLUCONATE 2 % 1 PACK (2 CLOTHS) TOP SCH (01:28)
[2017-12-12] MEDS: INSULIN NovoLIN REGULAR SUPPLEMENTAL SCALE SQ SCH ×4 (05:47→17:17)
[2017-12-12] MEDS: CEFTOLOZANE-TAZOBACTAM INJ 1,500 MG in SODIUM CHLORIDE 0.9% INJ 100 ML IV SCH ×3 (05:48→21:43)
[2017-12-12] MEDS: FREE WATER G-TUBE SCH ×4 (05:48→17:04)
[2017-12-12] MEDS: guaiFENesin SOLUTION 200 MG/10 ML CUP PO SCH ×3 (05:56→21:45)
[2017-12-12] MEDS: hydrALAZINE HCL 50 MG TAB G-TUBE SCH ×3 (06:00→21:47)
[2017-12-12] MEDS: cloNIDine HCL 0.1 MG TAB PO SCH ×3 (06:00→21:47)
[2017-12-12] MEDS: POTASSIUM CHLORIDE 20 MEQ PWD PACKET G-TUBE SCH (09:00)
[2017-12-12] MEDS: MUPIROCIN 2% OINT 1 APPLIC/GM SYR EACH NARE SCH ×2 (09:00→22:18)
[2017-12-12] MEDS: METOPROLOL TARTRATE 50 MG TAB PO SCH ×2 (09:47→21:00)
[2017-12-12] MEDS: levETIRAcetam 500 MG/5 ML UDC G-TUBE SCH ×2 (09:47→21:45)
[2017-12-12] MEDS: DOCUSATE SODIUM 50 MG/SENNA 8.6 MG TAB PO SCH ×2 (09:48→21:45)
[2017-12-12] MEDS: BACLOFEN 20 MG TAB G-TUBE SCH ×3 (09:48→17:04)
[2017-12-12] MEDS: LANSOPRAZOLE SOLUTAB 30 MG TAB G-TUBE SCH (09:48)
[2017-12-12] MEDS: LORATADINE 10 MG TAB G-TUBE SCH (09:48)
[2017-12-12] MEDS: SODIUM CHLORIDE 0.9% FLUSH 10 ML FLUSH IV FLUSH SCH ×2 (09:49→21:46)
[2017-12-12] MEDS: HYOSCYAMINE SOLN 0.125 MG/ML 15 ML BTL G-TUBE SCH ×2 (09:49→21:46)
[2017-12-12] MEDS: ARTIFICIAL TEARS OPTH SOLN 15 ML BTL EACH EYE SCH ×3 (09:49→17:04)
[2017-12-12] MEDS: ACETAMINOPHEN 650 MG/20.3 ML UDC G-TUBE PRN (11:55)
--- NOTE | 2017-12-12 13:04 | HHI.PR ---
Subjective Remarks With spikes of fevers. With secretions, might need more frequent suctioning. started levsin Objective Vitals Vital Signs Date Time Temp Pulse Resp B/P (MAP) Pulse Ox O2 Delivery O2 Flow Rate FiO2 12/12/17 08:20 99 T-piece 28 12/12/17 08:00 99.3 84 22 128/75 (92) 100 12/12/17 04:28 98.7 74 18 108/58 (75) 100 12/12/17 00:55 99.6 75 19 119/72 (88) 98 12/11/17 21:37 100 T-piece 6.00 12/11/17 20:34 98.1 82 17 113/78 (90) 100 12/11/17 19:00 100 T-Piece 28 12/11/17 14:45 98.4 75 18 112/65 (81) 100 I/O 12/11/17 12/11/17 12/11/17 12/12/17 12/12/17 12/12/17 07:00 15:00 23:00 07:00 15:00 23:00 Intake Total 1399 ml 594 ml Output Total 985 ml Balance 414 ml 594 ml IV Total 520 ml 100 ml Tube Feeding 579 ml 344 ml Tube Irrigant 300 ml 150 ml Output Urine Total 985 ml # Voids 2 # Bowel Movements 1 Result Diagram: 12/11/17 0300 12/11/17 0300 Imaging Last Impressions Chest X-Ray 12/10/17 0600 Signed Impressions: Service Date/Time: December 03:25 - CONCLUSION: Underinflation with mild bibasilar opacity representing atelectasis or consolidation. Orlando Christianson MD Objective Remarks GENERAL: 32-year-old AA male currently on T piece with no appearance of acute distress. NECK: Trachea midline. No JVD. Tracheostomy is clean dry and intact CARDIOVASCULAR: RRR. S1, S2 no S4. Without murmur RESPIRATORY: Coarse breathing sounds. Copious secretions. GASTROINTESTINAL: Abdomen soft, non-tender, nondistended. GJ tube site is clean dry and intact MUSCULOSKELETAL: Extremities without edema. Contracted bilateral upper extremities.. NEUROLOGICAL: Status post tracheostomy. Positive gag. Positive corneal reflex. Withdraws to pain. Procedures 12/10 EEG Date of Insertion: Nov 30, 2017 Date of Removal: Dec 05, 2017 Line: Central Venous Catheter Side: Right Location: Femoral A/P Problem List: (1) Hypertension ICD Code: I10 - Essential (primary) hypertension (2) Seizure ICD Code: R56.9 - Unspecified convulsions (3) Pyrexia ICD Code: R50.9 - Fever, unspecified (4) Severe sepsis ICD Code: A41.9 - Sepsis, unspecified organism; R65.20 - Severe sepsis without septic shock (5) Hyperglycemia ICD Code: R73.9 - Hyperglycemia, unspecified (6) Acute kidney injury ICD Code: N17.9 - Acute kidney failure, unspecified (7) Lactic acidosis ICD Code: E87.2 - Acidosis (8) Leukocytosis ICD Code: D72.829 - Elevated white blood cell count, unspecified (9) Anoxic encephalopathy ICD Code: G93.1 - Anoxic brain damage, not elsewhere classified Status: Chronic (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 As needed pain/home medication Baclofen 20 mg 3 times a day muscle spasticity Seizure precautions 12/06 Dilantin level 9.1. Repeat level 8, 12/09 Dilantin increased 200 mg BID to 3 times a day 12/10- F/U EEG-severe encephalopathy no active seizures CV: Essential hypertension History of dyslipidemia Lactic acidosis Continue home medications of amlodipine 10 mg daily, metoprolol tartrate 50 mill grams twice a day and hydralazine 50 mg every 8 hours Continue on clonidine 0.1 mg by mouth 3 times a day IV fluids discontinued. Furosemide 40 mg IV 1 now with pleural effusion left side Troponin less than 0.02 admission Lactate 10.2 admission. Repeat lactate level in am Echocardiogram revealed EF 55%. Moderate left effusion. Trivial pericardial effusion. Resp: Chronic respiratory failure Currently on TPs maintain saturations greater than equal to 92%. Wean to trach collar as tolerated. Chest x-ray 11/30 revealed no acute findings Albuterol/ipratropium aerosols every 6 hours with albuterol aerosols every 2 hours. Dyspnea Hypertonic saline aerosols every 6 hours thin secretions, discontinued 12/08 guaifenesin liquid 400 mg every 8 hours GI: Gastroesophageal reflux disease Elevated AST Vital 1.5 goal 90 cc an hour per J-tube Lansoprazole 30 mg daily for GI prophylaxis. On famotidine 20 twice a day and ranitidine 150 mg twice a day at half-way Docusate sodium/senna 1 tablet twice a day for bowel regimen : Tello catheter if indicated for accurate I's and O's in a critically ill patient Endo: Diabetes mellitus History of pancreatitis Sliding-scale insulin with Novulin R medium protocol Accu checks 6 every 6 hours to maintain euglycemia Renal: Acute kidney injury - resolved Aggressive hydration. Monitor urine output Accurate I's and O's Monitor BMP Heme: Normocytic anemia Chronic Apixaban use Resumed apixaban 5 mg twice a day Monitor CBC daily. Follow trends ID: Sputum with multidrug-resistant Pseudomonas/ESBL positive Escherichia coli MRSA positive ID following. Droplet precautions. Contact precautions. 11/30 Blood cultures 2, UA no growth to date, sputum MDRO Pseudomonas, gram-negative willa, ESBL positive Escherichia coli Urine Legionella, pneumococcal and influenza all negative Continue Continue Zerbaxa. Continue Levaquin. Mupirocin twice a day to affected areas for universal Protocol decolonization of [facility] 12/09-pancultured- NGTD 12/12/17 with fever 102.4 today in the morning. Check blood cultures today. Notify ID FEN: Replace electrolytes as clinically indicated Holding home dose of potassium chloride 20 mEq twice a day. Free water decreased to 150 cc every 6 hours MSK: Muscle contractions PT/OT evaluate and treat Continue baclofen as above Access - Right femoral central line placed 11/30 by ED physician. Discontinued 12/05 Prophylaxis - GI - lansoprazole - DVT - SCD/ Apixaban Level II follow-up Dispo: Consult with city alderman to assist with chronic trach management/ chronic respiratory failure Problem Qualifiers (1) Pyrexia: Qualified Codes: R50.9 - Fever, unspecified (2) Leukocytosis: Qualified Codes: D72.829 - Elevated white blood cell count, unspecified (3) Hyperlipidemia: Qualified Codes: E78.5 - Hyperlipidemia, unspecified Shannon Collado MD Dec 12, 2017 13:04
[2017-12-12] MEDS: HYOSCYAMINE SOLN 0.125 MG/ML 15 ML BTL PO PRN (21:45)
[2017-12-13] VITALS (7 sets, daily range): BP systolic 104–165; BP diastolic 55–95; PULSE 66–111; RESP 18–28; TEMP 97.6–98.9; O2SAT 97–100
[2017-12-13] MEDS: FREE WATER G-TUBE SCH ×5 (01:49→23:18)
[2017-12-13] MEDS: PHENYTOIN SUSP 100 MG/4 ML CUP PO SCH ×3 (01:51→17:34)
[2017-12-13] MEDS: CHLORHEXIDINE GLUCONATE 2 % 1 PACK (2 CLOTHS) TOP SCH (01:52)
[2017-12-13] MEDS: INSULIN NovoLIN REGULAR SUPPLEMENTAL SCALE SQ SCH ×5 (06:00→23:18)
[2017-12-13] MEDS: cloNIDine HCL 0.1 MG TAB PO SCH ×3 (06:00→22:00)
[2017-12-13] MEDS: hydrALAZINE HCL 50 MG TAB G-TUBE SCH ×3 (06:00→22:00)
[2017-12-13] MEDS: guaiFENesin SOLUTION 200 MG/10 ML CUP PO SCH ×3 (06:20→22:31)
[2017-12-13] MEDS: CEFTOLOZANE-TAZOBACTAM INJ 1,500 MG in SODIUM CHLORIDE 0.9% INJ 100 ML IV SCH ×3 (06:20→22:32)
[2017-12-13] MEDS: DOCUSATE SODIUM 50 MG/SENNA 8.6 MG TAB PO SCH ×2 (08:50→22:31)
[2017-12-13] MEDS: LANSOPRAZOLE SOLUTAB 30 MG TAB G-TUBE SCH (08:51)
[2017-12-13] MEDS: LORATADINE 10 MG TAB G-TUBE SCH (08:51)
[2017-12-13] MEDS: APIXABAN 5 MG TABLET G-TUBE SCH ×2 (08:51→22:31)
[2017-12-13] MEDS: BACLOFEN 20 MG TAB G-TUBE SCH ×3 (08:51→17:34)
[2017-12-13] MEDS: METOPROLOL TARTRATE 50 MG TAB PO SCH ×2 (08:51→21:00)
[2017-12-13] MEDS: HYOSCYAMINE SOLN 0.125 MG/ML 15 ML BTL G-TUBE SCH ×2 (08:56→22:33)
[2017-12-13] MEDS: POTASSIUM CHLORIDE 20 MEQ PWD PACKET G-TUBE SCH (08:57)
[2017-12-13] MEDS: MUPIROCIN 2% OINT 1 APPLIC/GM SYR EACH NARE SCH ×2 (08:57→22:31)
[2017-12-13] MEDS: ARTIFICIAL TEARS OPTH SOLN 15 ML BTL EACH EYE SCH ×3 (08:57→17:35)
[2017-12-13] MEDS: SODIUM CHLORIDE 0.9% FLUSH 10 ML FLUSH IV FLUSH SCH ×2 (08:58→22:32)
[2017-12-13] MEDS: levETIRAcetam 500 MG/5 ML UDC G-TUBE SCH ×2 (09:10→22:31)
[2017-12-13 09:15] LABS: BASOPHIL % 0.6 % (0.0-2.0); EOSINOPHIL # 0.1 TH/MM3 (0-0.4); EOSINOPHIL % 2.8 % (0.0-4.0); HEMATOCRIT 38.7 % (39.0-51.0); HEMOGLOBIN 13.2 GM/DL (13.0-17.0); LYMPHOCYTE # 1.7 TH/MM3 (1.0-4.8); MEAN CELL VOLUME 91.9 FL (80.0-100.0); MEAN CORPUSCULAR HEMOGLOBIN 31.3 PG (27.0-34.0); MEAN PLATELET VOLUME 9.9 FL (7.0-11.0); MONO % 9.9 % (0.0-8.0); MONOCYTE # 0.5 TH/MM3 (0-0.9); NEUT % 55.7 % (16.0-70.0); PLATELET COUNT 226 TH/MM3 (150-450); RED BLOOD COUNT 4.21 MIL/MM3 (4.50-5.90); RED CELL DISTRIBUTION WIDTH 14.8 % (11.6-17.2); WHITE BLOOD COUNT 5.3 TH/MM3 (4.0-11.0)
[2017-12-13 09:38] LABS: BICARBONATE 27.7 MEQ/L (21.0-32.0); CALCIUM 8.9 MG/DL (8.5-10.1); CREATININE 0.74 MG/DL (0.60-1.30); MAGNESIUM 2.4 MG/DL (1.5-2.5)
--- NOTE | 2017-12-13 15:31 | HHI.PR ---
Subjective Remarks Follow-up for sepsis, fever, tachycardia in a patient with history of anoxic brain injury. Patient remains aphasic which is his baseline. No fever in the 24 hours. He remains tachycardic with heart rate around 110s. Objective Vitals Vital Signs Date Time Temp Pulse Resp B/P (MAP) Pulse Ox O2 Delivery O2 Flow Rate FiO2 12/13/17 12:00 89 12/13/17 08:00 66 12/13/17 08:00 98.9 111 28 165/95 (118) 98 12/13/17 04:00 97.8 77 20 109/68 (82) 100 12/13/17 04:00 88 12/13/17 00:00 97.9 80 20 115/70 (85) 100 12/13/17 00:00 104 12/12/17 21:58 97 T-piece 6.00 28 12/12/17 20:00 T-Piece 5.00 28 Humidified 12/12/17 20:00 98.3 82 20 104/74 (84) 100 12/12/17 20:00 85 I/O 12/12/17 12/12/17 12/12/17 12/13/17 12/13/17 12/13/17 07:00 15:00 23:00 07:00 15:00 23:00 Intake Total 200 ml 150 ml Output Total 1000 ml 1100 ml Balance -800 ml 150 ml -1100 ml IV Total 100 ml Tube Irrigant 150 ml Other 100 ml Output Urine Total 1000 ml 1100 ml # Bowel Movements 1 0 Result Diagram: 12/13/17 0750 12/13/17 0850 Imaging Last Impressions Chest X-Ray 12/10/17 0600 Signed Impressions: Service Date/Time: December 03:25 - CONCLUSION: Underinflation with mild bibasilar opacity representing atelectasis or consolidation. Orlando Christianson MD Objective Remarks GENERAL: Aphasic, withdraws to painful stimuli. SKIN: Warm and dry. HEAD: Normocephalic. EYES: No scleral icterus. No injection or drainage. NECK: Status post tracheostomy. CARDIOVASCULAR: Regular rate and rhythm without murmurs, gallops, or rubs. RESPIRATORY: Breath sounds equal bilaterally. No accessory muscle use. GASTROINTESTINAL: Abdomen soft, non-tender, nondistended. MUSCULOSKELETAL: No cyanosis, or edema. Contracted bilateral upper extremities. BACK: Nontender without obvious deformity. Procedures 12/10 EEG Severely slow background consistent with what looks like a diffuse cerebral dysfunction that can be seen in an anoxic encephalopathic picture. Clinical correlation. Date of Insertion: Nov 30, 2017 Date of Removal: Dec 05, 2017 Line: Central Venous Catheter Side: Right Location: Femoral A/P Problem List: (1) Hypertension ICD Code: I10 - Essential (primary) hypertension (2) Seizure ICD Code: R56.9 - Unspecified convulsions (3) Pyrexia ICD Code: R50.9 - Fever, unspecified (4) Severe sepsis ICD Code: A41.9 - Sepsis, unspecified organism; R65.20 - Severe sepsis without septic shock (5) Hyperglycemia ICD Code: R73.9 - Hyperglycemia, unspecified (6) Acute kidney injury ICD Code: N17.9 - Acute kidney failure, unspecified (7) Lactic acidosis ICD Code: E87.2 - Acidosis (8) Leukocytosis ICD Code: D72.829 - Elevated white blood cell count, unspecified (9) Anoxic encephalopathy ICD Code: G93.1 - Anoxic brain damage, not elsewhere classified Status: Chronic (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 As needed pain/home medication Baclofen 20 mg 3 times a day muscle spasticity Seizure precautions 12/06 Dilantin level 9.1. Repeat level 8, 12/09 Dilantin increased 200 mg BID to 3 times a day 12/10- F/U EEG-severe encephalopathy no active seizures CV: Essential hypertension History of dyslipidemia Lactic acidosis Continue home medications of amlodipine 10 mg daily, metoprolol tartrate 50 mill grams twice a day and hydralazine 50 mg every 8 hours Continue on clonidine 0.1 mg by mouth 3 times a day Troponin less than 0.02 admission Echocardiogram revealed EF 55%. Moderate left effusion. Trivial pericardial effusion. Resp: Chronic respiratory failure Currently on TPs maintain saturations greater than equal to 92%. Wean to trach collar as tolerated. Chest x-ray 11/30 revealed no acute findings Albuterol/ipratropium aerosols every 6 hours with albuterol aerosols every 2 hours. Dyspnea Hypertonic saline aerosols every 6 hours thin secretions, discontinued 12/08 guaifenesin liquid 400 mg every 8 hours GI: Gastroesophageal reflux disease Elevated AST Vital 1.5 goal 90 cc an hour per J-tube Lansoprazole 30 mg daily for GI prophylaxis. On famotidine 20 twice a day and ranitidine 150 mg twice a day at detention Docusate sodium/senna 1 tablet twice a day for bowel regimen : Tello catheter if indicated for accurate I's and O's in a critically ill patient Endo: Diabetes mellitus History of pancreatitis Sliding-scale insulin with Novolin R medium protocol Accu checks 6 every 6 hours to maintain euglycemia Renal: Acute kidney injury - resolved Aggressive hydration. Monitor urine output Accurate I's and O's Monitor BMP Heme: Normocytic anemia Chronic Apixaban use Resumed apixaban 5 mg twice a day Monitor CBC daily. Follow trends ID: Sputum with multidrug-resistant Pseudomonas/ESBL positive Escherichia coli MRSA positive ID following. Droplet precautions. Contact precautions. 11/30 Blood cultures 2, UA no growth to date, sputum MDRO Pseudomonas, gram-negative willa, ESBL positive Escherichia coli Urine Legionella, pneumococcal and influenza all negative Continue Continue Zerbaxa. Continue Levaquin. Mupirocin twice a day to affected areas for universal Protocol decolonization of [facility] 12/09-pancultured- NGTD MSK: Muscle contractions PT/OT evaluate and treat Continue baclofen as above Access - Right femoral central line placed 11/30 by ED physician. Discontinued 2/3 Prophylaxis - GI - lansoprazole - DVT - SCD/ Apixaban Problem Qualifiers (1) Pyrexia: Qualified Codes: R50.9 - Fever, unspecified (2) Leukocytosis: Qualified Codes: D72.829 - Elevated white blood cell count, unspecified (3) Hyperlipidemia: Qualified Codes: E78.5 - Hyperlipidemia, unspecified Lakshmi Perez DO Dec 13, 2017 15:31
--- NOTE | 2017-12-13 20:35 | HHI.PR ---
Subjective Remarks No significant changes. No significant secretions. On 28% FiO2. Normal Objective Vital Signs Date Time Temp Pulse Resp B/P (MAP) Pulse Ox O2 Delivery O2 Flow Rate FiO2 12/13/17 16:00 98.2 100 26 124/78 (93) 97 12/13/17 12:00 89 12/13/17 11:40 T-piece 28 12/13/17 08:00 66 12/13/17 08:00 98.9 111 28 165/95 (118) 98 12/13/17 04:00 97.8 77 20 109/68 (82) 100 12/13/17 04:00 88 12/13/17 00:00 97.9 80 20 115/70 (85) 100 12/13/17 00:00 104 12/12/17 21:58 97 T-piece 6.00 28 I/O 12/12/17 12/12/17 12/12/17 12/13/17 12/13/17 12/13/17 07:00 15:00 23:00 07:00 15:00 23:00 Intake Total 200 ml 150 ml Output Total 1000 ml 1100 ml 500 ml Balance -800 ml 150 ml -1100 ml -500 ml IV Total 100 ml Tube Irrigant 150 ml Other 100 ml Output Urine Total 1000 ml 1100 ml 500 ml # Bowel Movements 1 0 1 Result Diagram: 12/13/17 0750 12/13/17 0850 Other Results Physical Exam PHYSICAL EXAMINATION GENERAL: No acute distress. HEAD, EYES, EARS, NOSE, AND THROAT: No icterus. NECK: No swelling or adenopathy. Tracheostomy tube in place no yellowish or greenish secretions seen LUNGS: Basilar rhonchi bilateral. HEART: Regular S1 and S2 without audible murmurs. ABDOMEN: Soft. EXTREMITIES: No clubbing, cyanosis or edema. SKIN: No diffuse rash. NEUROLOGIC: Nonverbal unresponsive Assessment and Plan Assessment and Plan 1. Multiple drug-resistant previously ESBL e. coli and pseudomonas. Pneumonia vs tracheobronchitis . . 2. Fever. 3. Sepsis resolved 4. Chronic tracheostomy. RECOMMEND: Continue to wean off FiO2 for O2 sat more than or equal to 89% Antibiotics as recommended by ID I still do not believe he is a candidate for decannulation anytime soon Gio Guy MD Dec 13, 2017 20:35
[2017-12-13] MEDS: HYOSCYAMINE SOLN 0.125 MG/ML 15 ML BTL PO PRN (22:32)
[2017-12-14] VITALS (11 sets, daily range): BP systolic 102–147; BP diastolic 52–78; PULSE 65–78; RESP 18–20; TEMP 97.3–99.1; O2SAT 95–100
[2017-12-14] MEDS: PHENYTOIN SUSP 100 MG/4 ML CUP PO SCH ×3 (01:40→16:26)
[2017-12-14] MEDS: CHLORHEXIDINE GLUCONATE 2 % 1 PACK (2 CLOTHS) TOP SCH (01:41)
[2017-12-14] MEDS: guaiFENesin SOLUTION 200 MG/10 ML CUP PO SCH ×3 (05:54→21:14)
[2017-12-14] MEDS: FREE WATER G-TUBE SCH ×3 (05:54→16:26)
[2017-12-14] MEDS: CEFTOLOZANE-TAZOBACTAM INJ 1,500 MG in SODIUM CHLORIDE 0.9% INJ 100 ML IV SCH ×2 (05:54→12:00)
[2017-12-14] MEDS: cloNIDine HCL 0.1 MG TAB PO SCH ×3 (05:55→21:14)
[2017-12-14] MEDS: hydrALAZINE HCL 50 MG TAB G-TUBE SCH ×3 (05:55→21:14)
[2017-12-14] MEDS: INSULIN NovoLIN REGULAR SUPPLEMENTAL SCALE SQ SCH ×3 (06:00→18:00)
[2017-12-14] MEDS: HYOSCYAMINE SOLN 0.125 MG/ML 15 ML BTL G-TUBE SCH ×2 (09:00→21:15)
[2017-12-14] MEDS: POTASSIUM CHLORIDE 20 MEQ PWD PACKET G-TUBE SCH (09:00)
[2017-12-14] MEDS: APIXABAN 5 MG TABLET G-TUBE SCH ×2 (09:25→21:14)
[2017-12-14] MEDS: SODIUM CHLORIDE 0.9% FLUSH 10 ML FLUSH IV FLUSH SCH ×2 (09:26→21:14)
[2017-12-14] MEDS: LANSOPRAZOLE SOLUTAB 30 MG TAB G-TUBE SCH (09:28)
[2017-12-14] MEDS: METOPROLOL TARTRATE 50 MG TAB PO SCH ×2 (09:28→21:14)
[2017-12-14] MEDS: LORATADINE 10 MG TAB G-TUBE SCH (09:28)
[2017-12-14] MEDS: DOCUSATE SODIUM 50 MG/SENNA 8.6 MG TAB PO SCH ×2 (09:28→21:14)
[2017-12-14] MEDS: MUPIROCIN 2% OINT 1 APPLIC/GM SYR EACH NARE SCH ×2 (09:29→21:17)
[2017-12-14] MEDS: levETIRAcetam 500 MG/5 ML UDC G-TUBE SCH ×2 (09:29→21:14)
[2017-12-14] MEDS: HYOSCYAMINE SOLN 0.125 MG/ML 15 ML BTL PO PRN ×2 (09:29→21:15)
[2017-12-14] MEDS: ARTIFICIAL TEARS OPTH SOLN 15 ML BTL EACH EYE SCH ×3 (09:29→16:26)
[2017-12-14] MEDS: BACLOFEN 20 MG TAB G-TUBE SCH ×3 (09:29→16:26)
--- NOTE | 2017-12-14 13:51 | HHI.IDPN ---
Note Infectious Disease Note Patient looks comfortable. No distress. On O2 via t-piece. Afebrile. No significant secretions. 32-year-old black male who presented to the emergency department from a nursing care facility. History of brain trauma with anoxic encephalopathy. He has chronic tracheostomy and PEG. The patient was sent to the emergency department because he was tachycardic and diaphoretic. He had temperature of 100.4 degrees and heart rate of 121, respiratory rate 28. Lactic acid level was 10.6. PAST MEDICAL HISTORY 1. Anoxic encephalopathy following cardiac arrest. 2. Tracheostomy and PEG tube placement in July 2015. 3. Seizure disorder. 4. Diabetes mellitus. 5. History of pancreatitis. 6. Gastroesophageal reflux disease. 7. 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 ALLERGIES No known drug allergies. ANTIBIOTICS Zerbaxa. OBJECTIVE: Vital Signs Date Time Temp Pulse Resp B/P (MAP) Pulse Ox O2 Delivery O2 Flow Rate FiO2 12/14/17 12:00 97.3 77 20 115/76 (89) 95 12/14/17 08:00 98.0 66 20 122/59 (80) 100 12/14/17 07:00 100 T-Piece 6.00 28 Humidified 12/14/17 05:27 99.1 74 18 128/66 (86) 97 12/14/17 04:00 73 12/14/17 03:32 96 T-piece 6.00 28 12/14/17 00:37 98.7 66 18 103/52 (69) 96 12/14/17 00:00 68 12/13/17 21:03 97.6 73 18 104/55 (71) 98 12/13/17 20:00 T-Piece 5.00 28 Humidified 12/13/17 20:00 75 12/13/17 16:00 98.2 100 26 124/78 (93) 97 Laboratory Tests Test 12/13/17 07:50 White Blood Count 5.3 TH/MM3 Red Blood Count 4.21 MIL/MM3 Hemoglobin 13.2 GM/DL Hematocrit 38.7 % Mean Corpuscular Volume 91.9 FL Mean Corpuscular Hemoglobin 31.3 PG Mean Corpuscular Hemoglobin Concent 34.0 % Red Cell Distribution Width 14.8 % Platelet Count 226 TH/MM3 Mean Platelet Volume 9.9 FL Neutrophils (%) (Auto) 55.7 % Lymphocytes (%) (Auto) 31.0 % Monocytes (%) (Auto) 9.9 % Eosinophils (%) (Auto) 2.8 % Basophils (%) (Auto) 0.6 % Neutrophils # (Auto) 3.0 TH/MM3 Lymphocytes # (Auto) 1.7 TH/MM3 Monocytes # (Auto) 0.5 TH/MM3 Eosinophils # (Auto) 0.1 TH/MM3 Basophils # (Auto) 0.0 TH/MM3 CBC Comment DIFF FINAL Differential Comment Laboratory Tests Test 12/13/17 08:50 Blood Urea Nitrogen 17 MG/DL Creatinine 0.74 MG/DL Random Glucose 125 MG/DL Calcium Level 8.9 MG/DL Magnesium Level 2.4 MG/DL Sodium Level 140 MEQ/L Potassium Level 3.7 MEQ/L Chloride Level 105 MEQ/L Carbon Dioxide Level 27.7 MEQ/L Anion Gap 7 MEQ/L Estimat Glomerular Filtration Rate 151 ML/MIN Microbiology Date/Time Source Procedure Growth Status 12/12/17 15:05 Blood Peripheral Aerobic Blood Culture - Preliminary NO GROWTH IN 2 DAYS Resulted 12/12/17 15:05 Blood Peripheral Anaerobic Blood Culture - Preliminary NO GROWTH IN 2 DAYS Resulted 12/12/17 14:50 Blood Peripheral Aerobic Blood Culture - Preliminary NO GROWTH IN 2 DAYS Resulted 12/12/17 14:50 Blood Peripheral Anaerobic Blood Culture - Preliminary NO GROWTH IN 2 DAYS Resulted IMAGING: Chest X-Ray 12/10/17599 Signed Impressions: Service Date/Time: December 03:25 - CONCLUSION: Underinflation with mild bibasilar opacity representing atelectasis or consolidation. Orlando Christianson MD Chest X-Ray 12/07/17599 Signed Impressions: Service Date/Time: Thursday, December 07, 2017 03:33 - CONCLUSION: Stable chest x-ray. No acute finding is identified. Orlando Christianson MD Chest X-Ray 12/06/17599 Signed Impressions: Service Date/Time: Wednesday, December 06, 2017 04:14 - CONCLUSION: No significant change has occurred. Gary Ross MD Chest X-Ray 12/03/17 06 Signed Impressions: Service Date/Time: December 03:33 - CONCLUSION: Increase in size of cardiac silhouette since Valeria 29. Cannot exclude pericardial effusion. Mild basilar and perihilar airspace disease. Fidel Myers MD PHYSICAL EXAMINATION GENERAL: No acute distress. HEAD, EYES, EARS, NOSE, AND THROAT: The pupils are reactive. No icterus. NECK: No swelling or adenopathy. Tracheostomy tube in place LUNGS: Basilar rhonchi bilateral. Good air movement. HEART: Regular S1 and S2 without audible murmurs. ABDOMEN: Soft. (+) BS. EXTREMITIES: No clubbing, cyanosis or edema. SKIN: No diffuse rash. NEUROLOGIC: Unable to fully assess. PSYCH: Unable to fully assess. Calm. IMPRESSION 1. Multiple drug-resistant sputum culture previously ESBL e. coli and pseudomonas. Pneumonia vs tracheobronchitis or colonization. Latest culture has multiple resistant organisms. Acinetobacter, pseudomonas, providencia. 2. Fever. Improved. 3. Sepsis on admission. Improved. 4. Chronic tracheostomy. 5. Seizure vs spasms. RECOMMEND: 1. Stop Zerbaxa. 2. Start PO Bactrim and treat x 7 days if he tolerates. 3. Monitor clinical status. Can be discharged tomorrow if he is tolerating the Bactrim x 7 days. Wesly Rosado MD Dec 14, 2017 13:51
[2017-12-14] MEDS: SULFAMETHOXAZOLE-TRIMETHOPRIM DS 800-160 MG TAB PO SCH ×2 (14:31→21:14)
--- NOTE | 2017-12-14 18:51 | HHI.PR ---
Review/Management Diagnosis sz Plan recheck dph level in am Diagnosis/Plan: Subjective Subjective Comments No acute events reported Active Medications Current Medications Medications (Trade) Dose Ordered Sig/Julian Route Start Time Stop Time Status Last Admin (NS Flush) 2 ml UNSCH PRN IV FLUSH 11/30/17 11:15 12/10/17 08:42 (NS Flush) 2 ml BID IV FLUSH 11/30/17 21:00 12/14/17 09:26 (Prevacid Odt) 30 mg DAILY G-TUBE 12/01/17 09:00 12/14/17 09:28 (Ativan Inj) 2 mg Q4H PRN IV PUSH 11/30/17 11:15 12/11/17 04:27 (Tears Naturale Opth Soln) 1 drop TID EACH EYE 11/30/17 13:00 12/14/17 16:26 (Zofran Inj) 4 mg Q6H PRN IV PUSH 11/30/17 11:15 (Albuterol Neb) 2.5 mg Q2HR NEB PRN INH 11/30/17 11:15 12/09/17 20:42 Miscellaneous Information 1 Q361D XX 11/30/17 11:15 (Chlorhexidine 2% Cloth) Taper DAILY@04 TOP 12/01/17 04:00 11/27/18 03:59 12/10/17 04:00 (Chlorhexidine 2% Cloth) 3 pack UNSCH PRN TOP 11/30/17 11:15 (Shala-Colace) 1 tab BID PO 11/30/17 21:00 12/14/17 09:28 (Milk Of Magnesia Liq) 30 ml Q12H PRN PO 11/30/17 11:15 (Senokot) 17.2 mg Q12H PRN PO 11/30/17 11:15 (Dulcolax Supp) 10 mg DAILY PRN RECTAL 11/30/17 11:15 (Lactulose Liq) 30 ml DAILY PRN PO 11/30/17 11:15 (Norvasc) 10 mg DAILY G-TUBE 12/01/17 09:00 12/14/17 09:29 (Eliquis) 5 mg BID G-TUBE 11/30/17 21:00 12/14/17 09:25 (Lioresal) 20 mg TID G-TUBE 11/30/17 13:00 12/14/17 16:26 (Apresoline) 50 mg Q8HR G-TUBE 11/30/17 14:00 12/14/17 12:00 (Keppra Liq) 1,000 mg BID G-TUBE 11/30/17 21:00 12/14/17 09:29 (Claritin) 10 mg DAILY G-TUBE 12/01/17 09:00 12/14/17 09:28 (Lopressor) 50 mg BID PO 11/30/17 21:00 12/14/17 09:28 (Roxicodone) 5 mg Q6H PRN PO 11/30/17 11:30 11/30/17 13:41 (Levsin Liq) 0.125 mg BID G-TUBE 11/30/17 21:00 12/13/17 22:33 (D50w (Vial) Inj) 50 ml UNSCH PRN IV PUSH 11/30/17 11:30 (Glucagon Inj) 1 mg UNSCH PRN OTHER 11/30/17 11:30 (NovoLIN R SUPPLEMENTAL SCALE) 1 Q6HR SQ 11/30/17 12:00 12/12/17 14:07 (Tylenol 650 Mg/ 20 ml Liq) 650 mg Q6H PRN G-TUBE 11/30/17 12:00 12/12/17 11:55 (Morphine Inj) 2 mg Q3H PRN IV PUSH 11/30/17 14:15 12/05/17 14:18 (Catapres) 0.1 mg Q8HR PO 11/30/17 14:15 12/14/17 12:00 (Bactroban Nasal 2% Oint) Taper BID EACH NARE 12/04/17 21:00 11/30/18 20:59 12/14/17 09:29 (KCl Powder) 20 meq DAILY G-TUBE 12/05/17 09:00 12/14/17 09:00 (Free Water) 150 ml Q6H G-TUBE 12/05/17 12:00 12/14/17 16:26 (Robitussin Liq) 400 mg Q8HR PO 12/05/17 14:00 12/14/17 11:59 (Dilantin Liq) 200 mg Q8H PO 12/09/17 17:00 12/14/17 16:26 (Ativan Inj) 2 mg Q10M PRN IV PUSH 12/11/17 05:30 (Levsin Liq) 0.125 mg Q4H PRN PO 12/12/17 13:00 12/14/17 09:29 (Bactrim Ds 800-160 Mg) 1 tab Q12HR PO 12/14/17 15:00 12/14/17 14:31 Allergies Allergies Coded Allergies *MDRO Multi-Drug Resistant Organism (Verified Adverse Reaction, Unknown, ) Exam I&O / VS 12/14/17 12/14/17 12/15/17 15:00 23:00 07:00 Intake Total 0 ml Output Total 450 ml Balance -450 ml Intake Oral 0 ml Output Urine Total 450 ml Vital Signs Date Time Temp Pulse Resp B/P (MAP) Pulse Ox O2 Delivery O2 Flow Rate FiO2 12/14/17 16:00 98.1 78 19 102/64 (77) 95 12/14/17 16:00 77 12/14/17 12:00 70 12/14/17 12:00 97.3 77 20 115/76 (89) 95 12/14/17 08:00 98.0 66 20 122/59 (80) 100 12/14/17 07:00 100 T-Piece 6.00 28 Humidified 12/14/17 05:27 99.1 74 18 128/66 (86) 97 12/14/17 04:00 73 12/14/17 03:32 96 T-piece 6.00 28 12/14/17 00:37 98.7 66 18 103/52 (69) 96 12/14/17 00:00 68 12/13/17 21:03 97.6 73 18 104/55 (71) 98 12/13/17 20:00 T-Piece 5.00 28 Humidified 12/13/17 20:00 75 Objective Micro and Labs Date/Time Source Procedure Growth Status 12/12/17 15:05 Blood Peripheral Aerobic Blood Culture - Preliminary NO GROWTH IN 2 DAYS Resulted 12/12/17 15:05 Blood Peripheral Anaerobic Blood Culture - Preliminary NO GROWTH IN 2 DAYS Resulted 12/09/17 11:30 Sputum Endotracheal Gram Stain - Final Complete 12/09/17 11:30 Sputum Culture - Final Providencia Stuartii Acinetobacter Baumannii/Haemol Pseudomonas Aeruginosa Multi-Drug Resistant Complete 12/09/17 11:41 Urine Catheterized Urine Urine Culture - Final NO GROWTH IN 48 HOURS. Complete Jose La MD PhD Dec 14, 2017 18:51
--- NOTE | 2017-12-14 21:06 | HHI.PR ---
Subjective Remarks Patient remains non-verbal. No acute concerns. Afebrile. Objective Vitals Vital Signs Date Time Temp Pulse Resp B/P (MAP) Pulse Ox O2 Delivery O2 Flow Rate FiO2 12/14/17 20:52 96 T-piece 5.00 28 12/14/17 20:18 98.5 69 18 147/78 (101) 100 12/14/17 16:00 98.1 78 19 102/64 (77) 95 12/14/17 16:00 77 12/14/17 12:00 70 12/14/17 12:00 97.3 77 20 115/76 (89) 95 12/14/17 08:00 98.0 66 20 122/59 (80) 100 12/14/17 07:00 100 T-Piece 6.00 28 Humidified 12/14/17 05:27 99.1 74 18 128/66 (86) 97 12/14/17 04:00 73 12/14/17 03:32 96 T-piece 6.00 28 12/14/17 00:37 98.7 66 18 103/52 (69) 96 12/14/17 00:00 68 I/O 12/13/17 12/13/17 12/13/17 12/14/17 12/14/17 12/14/17 07:00 15:00 23:00 07:00 15:00 23:00 Intake Total 1440 ml 60 ml 1600 ml 0 ml Output Total 1100 ml 1050 ml 450 ml Balance 1440 ml -1100 ml -990 ml 1600 ml -450 ml Intake Oral 0 ml IV Total 100 ml Tube Feeding 1080 ml 1080 ml Tube Irrigant 300 ml 300 ml Other 60 ml 60 ml 120 ml Output Urine Total 1100 ml 1050 ml 450 ml # Bowel Movements 1 1 Result Diagram: 12/13/17 0750 12/13/17 0850 Objective Remarks GENERAL: Aphasic, withdraws to painful stimuli. SKIN: Warm and dry. HEAD: Normocephalic. EYES: No scleral icterus. No injection or drainage. NECK: Status post tracheostomy. CARDIOVASCULAR: Regular rate and rhythm without murmurs, gallops, or rubs. RESPIRATORY: Breath sounds equal bilaterally. No accessory muscle use. GASTROINTESTINAL: Abdomen soft, non-tender, nondistended. MUSCULOSKELETAL: No cyanosis, or edema. Contracted bilateral upper extremities. BACK: Nontender without obvious deformity. Procedures 12/10 EEG Severely slow background consistent with what looks like a diffuse cerebral dysfunction that can be seen in an anoxic encephalopathic picture. Clinical correlation. Date of Insertion: Nov 30, 2017 Date of Removal: Dec 05, 2017 Line: Central Venous Catheter Side: Right Location: Femoral A/P Problem List: (1) Hypertension ICD Code: I10 - Essential (primary) hypertension (2) Seizure ICD Code: R56.9 - Unspecified convulsions (3) Pyrexia ICD Code: R50.9 - Fever, unspecified (4) Severe sepsis ICD Code: A41.9 - Sepsis, unspecified organism; R65.20 - Severe sepsis without septic shock (5) Hyperglycemia ICD Code: R73.9 - Hyperglycemia, unspecified (6) Acute kidney injury ICD Code: N17.9 - Acute kidney failure, unspecified (7) Lactic acidosis ICD Code: E87.2 - Acidosis (8) Leukocytosis ICD Code: D72.829 - Elevated white blood cell count, unspecified (9) Anoxic encephalopathy ICD Code: G93.1 - Anoxic brain damage, not elsewhere classified Status: Chronic (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 As needed pain/home medication Baclofen 20 mg 3 times a day muscle spasticity Seizure precautions 12/06 Dilantin level 9.1. Repeat level 8, 12/09 Dilantin increased 200 mg BID to 3 times a day 12/10- F/U EEG-severe encephalopathy no active seizures CV: Essential hypertension History of dyslipidemia Lactic acidosis Continue home medications of amlodipine 10 mg daily, metoprolol tartrate 50 mill grams twice a day and hydralazine 50 mg every 8 hours Continue on clonidine 0.1 mg by mouth 3 times a day Troponin less than 0.02 admission Echocardiogram revealed EF 55%. Moderate left effusion. Trivial pericardial effusion. Resp: Chronic respiratory failure Currently on TPs maintain saturations greater than equal to 92%. Wean to trach collar as tolerated. Chest x-ray 11/30 revealed no acute findings Albuterol/ipratropium aerosols every 6 hours with albuterol aerosols every 2 hours. Dyspnea Hypertonic saline aerosols every 6 hours thin secretions, discontinued 12/08 guaifenesin liquid 400 mg every 8 hours GI: Gastroesophageal reflux disease Elevated AST Vital 1.5 goal 90 cc an hour per J-tube Lansoprazole 30 mg daily for GI prophylaxis. On famotidine 20 twice a day and ranitidine 150 mg twice a day at group home Docusate sodium/senna 1 tablet twice a day for bowel regimen : Tello catheter if indicated for accurate I's and O's in a critically ill patient Endo: Diabetes mellitus History of pancreatitis Sliding-scale insulin with Novolin R medium protocol Accu checks 6 every 6 hours to maintain euglycemia Renal: Acute kidney injury - resolved Aggressive hydration. Monitor urine output Accurate I's and O's Monitor BMP Heme: Normocytic anemia Chronic Apixaban use Resumed apixaban 5 mg twice a day Monitor CBC daily. Follow trends ID: Sputum with multidrug-resistant Pseudomonas/ESBL positive Escherichia coli MRSA positive ID following. Droplet precautions. Contact precautions. 11/30 Blood cultures 2, UA no growth to date, sputum MDRO Pseudomonas, gram-negative willa, ESBL positive Escherichia coli Urine Legionella, pneumococcal and influenza all negative ID switched abx to Bactrim. If he continues to do well, possible discharge tomorrow on Bactrim. Mupirocin twice a day to affected areas for universal Protocol decolonization of [facility] 12/09-pancultured- NGTD MSK: Muscle contractions PT/OT evaluate and treat Continue baclofen as above Access - Right femoral central line placed 11/30 by ED physician. Discontinued 2/3 Prophylaxis - GI - lansoprazole - DVT - SCD/ Apixaban Problem Qualifiers (1) Pyrexia: Qualified Codes: R50.9 - Fever, unspecified (2) Leukocytosis: Qualified Codes: D72.829 - Elevated white blood cell count, unspecified (3) Hyperlipidemia: Qualified Codes: E78.5 - Hyperlipidemia, unspecified Lakshmi Perez DO Dec 14, 2017 21:06
[2017-12-15] VITALS (8 sets, daily range): BP systolic 121–151; BP diastolic 58–84; PULSE 68–93; RESP 18–20; TEMP 97.7–99.4; O2SAT 98–100
[2017-12-15] MEDS: FREE WATER G-TUBE SCH ×3 (00:03→12:24)
[2017-12-15] MEDS: PHENYTOIN SUSP 100 MG/4 ML CUP PO SCH ×2 (01:30→09:41)
[2017-12-15] MEDS: CHLORHEXIDINE GLUCONATE 2 % 1 PACK (2 CLOTHS) TOP SCH (03:36)
[2017-12-15] MEDS: hydrALAZINE HCL 50 MG TAB G-TUBE SCH ×2 (05:33→12:24)
[2017-12-15] MEDS: guaiFENesin SOLUTION 200 MG/10 ML CUP PO SCH ×2 (05:33→12:24)
[2017-12-15] MEDS: cloNIDine HCL 0.1 MG TAB PO SCH ×2 (05:33→12:24)
[2017-12-15] MEDS: INSULIN NovoLIN REGULAR SUPPLEMENTAL SCALE SQ SCH ×3 (05:35→11:49)
[2017-12-15 08:26] LABS: CREATININE 0.79 MG/DL (0.60-1.30)
[2017-12-15] MEDS: BACLOFEN 20 MG TAB G-TUBE SCH ×2 (09:41→12:24)
[2017-12-15] MEDS: levETIRAcetam 500 MG/5 ML UDC G-TUBE SCH (09:41)
[2017-12-15] MEDS: LORATADINE 10 MG TAB G-TUBE SCH (09:41)
[2017-12-15] MEDS: SULFAMETHOXAZOLE-TRIMETHOPRIM DS 800-160 MG TAB PO SCH (09:41)
[2017-12-15] MEDS: LANSOPRAZOLE SOLUTAB 30 MG TAB G-TUBE SCH (09:41)
[2017-12-15] MEDS: APIXABAN 5 MG TABLET G-TUBE SCH (09:41)
[2017-12-15] MEDS: DOCUSATE SODIUM 50 MG/SENNA 8.6 MG TAB PO SCH (09:42)
[2017-12-15] MEDS: METOPROLOL TARTRATE 50 MG TAB PO SCH (09:42)
[2017-12-15] MEDS: ARTIFICIAL TEARS OPTH SOLN 15 ML BTL EACH EYE SCH ×2 (09:42→12:24)
[2017-12-15] MEDS: MUPIROCIN 2% OINT 1 APPLIC/GM SYR EACH NARE SCH (09:48)
[2017-12-15] MEDS: HYOSCYAMINE SOLN 0.125 MG/ML 15 ML BTL PO PRN (09:49)
[2017-12-15] MEDS: POTASSIUM CHLORIDE 20 MEQ PWD PACKET G-TUBE SCH (09:49)
[2017-12-15] MEDS: SODIUM CHLORIDE 0.9% FLUSH 10 ML FLUSH IV FLUSH SCH (09:55)
[2017-12-15] MEDS: HYOSCYAMINE SOLN 0.125 MG/ML 15 ML BTL G-TUBE SCH (10:02)
[2017-12-15] MEDS ORDERED: OXYC1CAP PO (10:46)
[2017-12-15] MEDS ORDERED: SULF1TAB23 PO (10:46)
--- NOTE | 2017-12-15 19:11 | HHI.DS ---
Discharge Summary Admission Date Nov 30, 2017 at 10:43 Discharge Date: Dec 15, 2017 Admitting Diagnosis SIRS (1) Hypertension ICD Code: I10 - Essential (primary) hypertension Diagnosis: Secondary (2) Seizure ICD Code: R56.9 - Unspecified convulsions Diagnosis: Secondary (3) Pyrexia ICD Code: R50.9 - Fever, unspecified Diagnosis: Principal (4) Severe sepsis ICD Code: A41.9 - Sepsis, unspecified organism; R65.20 - Severe sepsis without septic shock Diagnosis: Principal (5) Hyperglycemia ICD Code: R73.9 - Hyperglycemia, unspecified Diagnosis: Principal (6) Acute kidney injury ICD Code: N17.9 - Acute kidney failure, unspecified Diagnosis: Principal (7) Lactic acidosis ICD Code: E87.2 - Acidosis Diagnosis: Principal (8) Leukocytosis ICD Code: D72.829 - Elevated white blood cell count, unspecified Diagnosis: Principal (9) Anoxic encephalopathy ICD Code: G93.1 - Anoxic brain damage, not elsewhere classified Diagnosis: Secondary Status: Chronic (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 Clinical correlation. Brief History - From Admission This is a 32-year-old AA male. Date of admission 11/30/2017. 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 He has known seizure disorder on phenytoin and levetiracetam. Patient presents from [place] [facility] with onset of pyrexia, tachycardia and change in mental status. Patient is to show preservation 103 with a heart rate in the 190s. Patient received 3 L normal saline bolus was started on vancomycin and piperacillin/tazobactam central was placed in the right femoral region secondary to poor prophylaxis. He also received acetaminophen. His fevers abated. Heart rate currently 120s. CBC/BMP: 12/13/17 0750 12/15/17 0745 Significant Findings Laboratory Tests Test 12/13/17 07:50 12/13/17 08:50 12/15/17 07:45 Red Blood Count 4.21 MIL/MM3 (4.50-5.90) Hematocrit 38.7 % (39.0-51.0) Monocytes (%) (Auto) 9.9 % (0.0-8.0) Random Glucose 125 MG/DL (74-106) Phenytoin (Dilantin) Level 23.6 MCG/ML (10.0-20.0) Imaging Last Impressions Chest X-Ray 12/10/17 0600 Signed Impressions: Service Date/Time: December 03:25 - CONCLUSION: Underinflation with mild bibasilar opacity representing atelectasis or consolidation. Orlando Christianson MD PE at Discharge GENERAL: Aphasic, withdraws to painful stimuli. SKIN: Warm and dry. HEAD: Normocephalic. EYES: No scleral icterus. No injection or drainage. NECK: Status post tracheostomy. CARDIOVASCULAR: Regular rate and rhythm without murmurs, gallops, or rubs. RESPIRATORY: Breath sounds equal bilaterally. No accessory muscle use. GASTROINTESTINAL: Abdomen soft, non-tender, nondistended. MUSCULOSKELETAL: No cyanosis, or edema. Contracted bilateral upper extremities. BACK: Nontender without obvious deformity. Pt update on day of discharge Patient remains non-verbal. Unresponsive except for painful stimuli. Afebrile. Hospital Course Anoxic brain injury Seizure disorder NOS Continue levetiracetam 1000 mg twice a day and phenytoin 200 mg twice a day Acetaminophen 650 mg by G-tube every 6 hours when necessary fever Oxycodone 5 milligrams every 6 hours. As needed pain/home medication Baclofen 20 mg 3 times a day muscle spasticity Seizure precautions 12/06 Dilantin level 9.1. Repeat level , 12/09 Dilantin increased 200 mg BID to 3 times a day 12/10- F/U EEG-severe encephalopathy no active seizures CV: Essential hypertension History of dyslipidemia Lactic acidosis Continue home medications of amlodipine 10 mg daily, metoprolol tartrate 50 mill grams twice a day and hydralazine 50 mg every 8 hours Continue on clonidine 0.1 mg by mouth 3 times a day Troponin less than 0.02 admission Echocardiogram revealed EF 55%. Moderate left effusion. Trivial pericardial effusion. Resp: Chronic respiratory failure Currently on TPs maintain saturations greater than equal to 92%. Wean to trach collar as tolerated. Chest x-ray 11/30 revealed no acute findings Albuterol/ipratropium aerosols every 6 hours with albuterol aerosols every 2 hours. Dyspnea Hypertonic saline aerosols every 6 hours thin secretions, discontinued 12/08 guaifenesin liquid 400 mg every 8 hours GI: Gastroesophageal reflux disease Elevated AST Vital 1.5 goal 90 cc an hour per J-tube Lansoprazole 30 mg daily for GI prophylaxis. On famotidine 20 twice a day and ranitidine 150 mg twice a day at [facility] Docusate sodium/senna 1 tablet twice a day for bowel regimen : Tello catheter if indicated for accurate I's and O's in a critically ill patient Endo: Diabetes mellitus History of pancreatitis Sliding-scale insulin with Novolin R medium protocol Accu checks 6 every 6 hours to maintain euglycemia Renal: Acute kidney injury - resolved Aggressive hydration. Monitor urine output Accurate I's and O's Monitor BMP Heme: Normocytic anemia Chronic Apixaban use Resumed apixaban 5 mg twice a day Monitor CBC daily. Follow trends ID: Sputum with multidrug-resistant Pseudomonas/ESBL positive Escherichia coli MRSA positive ID following. Droplet precautions. Contact precautions. 11/30 Blood cultures 2, UA no growth to date, sputum MDRO Pseudomonas, gram-negative willa, ESBL positive Escherichia coli Urine Legionella, pneumococcal and influenza all negative ID switched abx to Bactrim which patient tolerated well and subsequently, he was discharged on Bactrim. Mupirocin twice a day to affected areas for universal Protocol decolonization of [facility] 12/09-pancultured- NGTD MSK: Muscle contractions PT/OT evaluate and treat Continue baclofen as above Access - Right femoral central line placed 11/30 by ED physician. Discontinued 12/05 Prophylaxis - GI - lansoprazole - DVT - SCD/ Apixaban Pt Condition on Discharge: Stable Discharge Disposition: Discharge to SNF Discharge Time: > 30 minutes Discharge Instructions DIET: Follow Instructions for: On Tube Feeding Activities you can perform: Regular-No Restrictions Other Activity Instructions: As tolerated. New Medications: Sulfamethoxazole-Trimethoprim (Sulfamethoxazole-Trimethoprim) 800-160 Mg Tab 1 TAB PO Q12HR for Infection, #14 TAB Continued Medications: Albuterol Neb (Albuterol Neb) 2.5 Mg/0.5 Ml Neb 2.5 MG NEB ONCE for Breathing Treatment, #1 NEBULE 0 Refills Note: The Albuterol Sulfate Inhalation Solution is concentrated and must be diluted. Read complete instructions carefully before using. Amlodipine (Norvasc) 10 Mg Tab 10 MG G-TUBE DAILY for Blood Pressure Management, #30 TAB 0 Refills Apixaban (Eliquis) 5 Mg Tab 5 MG GT BID for Blood Clot Prevention, #60 TAB 0 Refills Baclofen (Baclofen) 20 Mg Tab 20 MG GT TID for Muscle Spasm, TAB 0 Refills Famotidine (Pepcid) 20 Mg Tab 20 MG G-TUBE BID, #60 TAB 0 Refills Hydralazine (Hydralazine) 100 Mg Tab 50 MG G-TUBE Q8HR for Blood Pressure Management, TAB 0 Refills Take with meals Hyoscyamine Odt (Levsin-SL) 0.125 Mg Subl 0.125 MG G-TUBE BID for Gastrointestinal disorders, TAB.SL 0 Refills Levetiracetam (Keppra) 1,000 Mg Tab 1000 MG GT BID for Control Seizures, #60 TAB 0 Refills Loratadine (Claritin) 10 Mg Cap 10 MG G-TUBE DAILY for Allergy Management, CAP 0 Refills Lorazepam (Ativan) 0.5 Mg Tab 1 MG IM Q6HR PRN for SEIZURES, TAB 0 Refills Metoprolol Tartrate (Lopressor) 50 Mg Tab 50 MG PO BID, #60 TAB 0 Refills Oxycodone (Oxycodone) 5 Mg Cap 5 MG PO Q6H PRN for PAIN, #20 CAP 0 Refills (This prescription has been renewed) Phenytoin Liq (Phenytoin Liq) 125 Mg/5 Ml Jessica 200 MG PO Q12HR for Control Seizures, #237 ML 0 Refills Potassium Chloride ER (Potassium Chloride ER) 20 Meq Tab 20 MEQ GT BID for Electrolyte Replacement, #60 TAB 0 Refills [Water, Free] () 1 ML FLUSH 250 ML G-TUBE Q6H, ML Lakshmi Perez DO Dec 15, 2017 19:11
== END 2017-12-15 15:20 | DRG 871 ==
LOC: NEPE 08:07 → NEDA 10:43 → HIMN 13:05 → N05A 12-11 14:18
PROVIDERS: ADMIT Hospitalist; ATTEND Hospitalist
PROC: 06HM33Z Insertion of Infusion Device into Right Femoral Vein, Percutaneous Approach (ICD-10-PCS; principal; 2017-11-30)
PROC: 0T9B70Z Drainage of Bladder with Drainage Device, Via Natural or Artificial Opening (ICD-10-PCS; 2017-11-30)
DX: A41.9 Sepsis, unspecified organism (principal); J18.9 Pneumonia, unspecified organism; G93.1 Anoxic brain damage, not elsewhere classified; N17.9 Acute kidney failure, unspecified; J96.10 Chronic respiratory failure, unspecified whether with hypoxia or hypercapnia; J40 Bronchitis, not specified as acute or chronic; E87.2 Acidosis; Z93.0 Tracheostomy status; Z86.74 Personal history of sudden cardiac arrest; R47.01 Aphasia; R00.0 Tachycardia, unspecified; Z87.820 Personal history of traumatic brain injury; E78.5 Hyperlipidemia, unspecified; I10 Essential (primary) hypertension; I25.2 Old myocardial infarction; F41.9 Anxiety disorder, unspecified; E08.65 Diabetes mellitus due to underlying condition with hyperglycemia; K86.9 Disease of pancreas, unspecified; G40.909 Epilepsy, unspecified, not intractable, without status epilepticus; Z86.718 Personal history of other venous thrombosis and embolism; K21.9 Gastro-esophageal reflux disease without esophagitis; B96.5 Pseudomonas (aeruginosa) (mallei) (pseudomallei) as the cause of diseases classified elsewhere; Z74.01 Bed confinement status; Z79.01 Long term (current) use of anticoagulants; Z93.1 Gastrostomy status; Z86.14 Personal history of Methicillin resistant Staphylococcus aureus infection; D64.9 Anemia, unspecified; R65.20 Severe sepsis without septic shock
CPT/HCPCS: 36556; 51702; 71045; 76937; 80048; 80053; 80162; 80185; 80186; 80202; 81001; 82550; 82552; 82565; 82805; 82948; 83605; 83690; 83735; 84100; 84443; 84484; 85025; 85027; 85610; 85730; 87040; 87070; 87077; 87086; 87147; 87186; 87205; 87449; 87641; 87804; 93005; 93308; 94640; 94664; 95819; 96360; 96365; 96367; 96375; A7520; J0695; J1940; J1956; J2060; J2270; J2405; J2543; J3370; J3480; J7030; J7040; J7050; J7613; Q2009

== ENCOUNTER 2018-01-01 11:02 | Inpatient (IN) | payer MEDICARE, OTHER ==
[~2018-01-01] VITALS: Ht 170.2 cm; Wt 70.1 kg
[2018-01-01] VITALS (13 sets, daily range): BP systolic 61–134; BP diastolic 50–74; PULSE 54–109; RESP 9–27; TEMP 98.4–100.1; O2SAT 96–99
[~2018-01-01 11:02] MED LIST changes: -ALBU0.08 NEB; +AMLO10 G-TUBE; -BISA10SU3 RECTAL; +CLAR10CA3 G-TUBE; +FAMO1TAB37 G-TUBE; -FAMO1TAB73 GT; -FLEE5TAB GT; +HYDR-3801 G-TUBE; +IPRASOL G-TUBE; -IPRASOL INH; -JEVILIQ12 GT; +LORA-392 G-TUBE; -LORA-392 GT; -LORA-392 IM; +OXYC1CAP PO; -OXYC1TAB63 GT; +SULF1TAB23 PO
[2018-01-01] MEDS ORDERED: SODIUM CHLOR 0.9% 1000 ML INJ 1,000 ML IV ONE ×2 (11:17)
[2018-01-01] MEDS ORDERED: SODIUM CHLOR 0.9% 1000 ML INJ 100 ML IV ONE (11:17)
[2018-01-01] MEDS ORDERED: cefTRIAXone INJ 2,000 MG in SODIUM CHLORIDE 0.9% INJ 100 ML IV STA (11:17)
[2018-01-01] MEDS ORDERED: AZITHROMYCIN INJ 500 MG in SODIUM CHLOR 0.9% 250 ML INJ 250 ML IV STA (11:17)
--- NOTE | 2018-01-01 11:17 | PD ---
HPI Chief Complaint: respiratory Time Seen by Provider: 11:13 Travel History International Travel<30 days: No Contact w/Intl Traveler<30days: No Traveled to known affect area: No History of Present Illness HPI 32-year-old male in persistent vegetative state who resides at [facility] facility, presents to emergency department via [facility] today for evaluation of respiratory symptoms. Patient was found today to have respiratory rate in the 40s. He has increased sputum production from his trach. He has been febrile. Patient has had many hospitalizations for sepsis with the most recent was in November with a discharge December 15, 2017. Patient was recently started on Dilantin per the mother who told my attending this. Patient is otherwise unable to provide any history. PFSH Past Medical History Asthma: No Autoimmune Disease: No Anxiety: Yes Heart Rhythm Problems: No Cancer: No Cardiovascular Problems: Yes High Cholesterol: Yes Chemotherapy: No Chest Pain: No Congestive Heart Failure: No COPD: No Diabetes: No Diminished Hearing: No Endocrine: No Gastrointestinal Disorders: Yes (GASTROSTOMY, PSEUDOCYST OF PANCREAS) Genitourinary: No Hypertension: Yes Immune Disorder: No Implanted Vascular Access Dvce: No Musculoskeletal: Yes (Rigid upper and lower extremities) Neurologic: Yes (anoxic brain injury) Psychiatric: Yes (ANXIETY DISORDER) Reproductive: No Respiratory: Yes Immunizations Current: No Migraines: No Myocardial Infarction: Yes Pancreatitis: Yes Radiation Therapy: No Seizures: Yes Sleep Apnea: No Thyroid Disease: No Past Surgical History Abdominal Surgery: Yes (Peg Tube placement) Cardiac Surgery: No Ear Surgery: No Endocrine Surgery: No Eye Surgery: No Genitourinary Surgery: No Gynecologic Surgery: No Neurologic Surgery: No Oral Surgery: No Thoracic Surgery: Yes (trach ) Other Surgery: Yes (TRACHEOSTOMY) Social History Alcohol Use: No Tobacco Use: No Substance Use: No Allergies-Medications (Allergen,Severity, Reaction): Coded Allergies: haloperidol (Unverified Adverse Reaction, Severe, Seizures, 12/17/17) *MDRO Multi-Drug Resistant Organism (Verified Adverse Reaction, Unknown, ) MRSA (sputum) - 04/25/16 & 05/23/16 MRSA PCR Screen POSITIVE - 04/25/2016 ESBL+E.Coli (blood-05/22/16) Reported Meds & Prescriptions Reported Meds & Active Scripts Active Oxycodone (Oxycodone HCl) 5 Mg Tab 5 Mg PO Q6H PRN Ativan (Lorazepam) 1 Mg Tab 1 Mg G-TUBE Q4H PRN Bisacodyl EC (Bisacodyl) 5 Mg Tabec 5 Mg PO DAILY PRN Baclofen 20 Mg Tab 20 Mg G-TUBE TID [Water, Free] 1 ML Flush 250 Ml G-TUBE Q6H Reported Norvasc (Amlodipine Besylate) 10 Mg Tab 10 Mg G-TUBE DAILY Hydralazine (Hydralazine HCl) 100 Mg Tab 50 Mg G-TUBE Q8HR Take with meals Phenytoin Liq (Phenytoin) 125 Mg/5 Ml Jessica 200 Mg PO Q12HR Pepcid (Famotidine) 20 Mg Tab 20 Mg G-TUBE BID Ranitidine (Ranitidine HCl) 150 Mg Tab 150 Mg PO BID Lopressor (Metoprolol Tartrate) 50 Mg Tab 50 Mg PO BID Tylenol (Acetaminophen) 325 Mg Tab 650 Mg PO Q6H PRN Duoneb (Ipratropium-Albuterol Neb) 0.5-2.5 Mg/3 Ml Neb 1 Nebule INH Q4HR NEB Atropine Opth Drops 1% Soln 1 Drop SL Q12HR PRN Claritin Liq (Loratadine) 5 Mg/5 Ml Liq 5 Mg G-TUBE DAILY Ativan (Lorazepam) 0.5 Mg Tab 1 Mg IM Q6HR PRN Albuterol Neb (Albuterol Sulfate) 2.5 Mg/0.5 Ml Neb 2.5 Mg NEB ONCE Note: The Albuterol Sulfate Inhalation Solution is concentrated and must be diluted. Read complete instructions carefully before using. Potassium Chloride ER (Potassium Chloride) 20 Meq Tab 20 Meq GT BID Levsin-SL (Hyoscyamine Sulfate) 0.125 Mg Subl 0.125 Mg G-TUBE BID Keppra (Levetiracetam) 1,000 Mg Tab 1,000 Mg GT BID Eliquis (Apixaban) 5 Mg Tab 5 Mg GT BID Review of Systems Except as stated in HPI: all other systems reviewed are Neg Physical Exam Narrative GENERAL: Well-nourished male patient, lying in bed with a gaze to the left, appears in no acute distress. SKIN: Focused skin assessment warm/dry. HEAD: Atraumatic. Normocephalic. EYES: Pupils equal and round. No scleral icterus. No injection or drainage. ENT: No nasal bleeding or discharge. Mucous membranes pink and moist. NECK: Trachea midline. No JVD. Trachea in place. Thick yellow sputum from trachea CARDIOVASCULAR: Tachycardic rate and rhythm. RESPIRATORY: No accessory muscle use. Coarse throughout, diminished. Breath sounds equal bilaterally. GASTROINTESTINAL: Abdomen soft, non-tender, nondistended. Hepatic and splenic margins not palpable. PEG tube in place. MUSCULOSKELETAL: No obvious deformities. No clubbing. No cyanosis. No edema. Flaccid extremities with contracted upper hands. Bilateral foot drop. NEUROLOGICAL: Patient opens eyes spontaneously. Data Data Last Documented VS Vital Signs Date Time Temp Pulse Resp B/P (MAP) Pulse Ox O2 Delivery O2 Flow Rate FiO2 01/01/18 12:22 96 18 118/65 (82) 98 01/01/18 12:04 100.1 01/01/18 11:15 Trach Collar Orders Orders Sepsis Workup Initiated (01/01/18 ) Electrocardiogram (01/01/18 11:17) Complete Blood Count With Diff (01/01/18 11:17) Comprehensive Metabolic Panel (01/01/18 11:17) Prothrombin Time / Inr (Pt) (01/01/18 11:17) Act Partial Throm Time (Ptt) (01/01/18 11:17) Lactic Acid Sepsis Protocol (01/01/18 11:17) Magnesium (Mg) (01/01/18 11:17) Urinalysis - C+S If Indicated (01/01/18 11:17) Influenzae A/B Antigen (01/01/18 11:17) Blood Culture (01/01/18 11:17) Sputum Culture And Gram Stain (01/01/18 11:17) Chest, Single Ap (01/01/18 11:17) Blood Glucose (01/01/18 11:17) Ecg Monitoring (01/01/18 11:17) Iv Access Insert/Monitor (01/01/18 11:17) Cath For Specimen (01/01/18 11:17) Oximetry (01/01/18 11:17) Oxygen Administration (01/01/18 11:17) Sodium Chlor 0.9% 1000 Ml Inj (Ns 1000 M (01/01/18 11:17) Sodium Chlor 0.9% 1000 Ml Inj (Ns 1000 M (01/01/18 11:17) Sodium Chlor 0.9% 1000 Ml Inj (Ns 1000 M (01/01/18 11:17) Ceftriaxone Inj (Rocephin Inj) (01/01/18 11:17) Azithromycin Inj (Zithromax Inj) (01/01/18 11:17) Vancomycin Inj (Vancomycin Inj) (01/01/18 11:45) Piperacil-Tazo 4.5 Gm Premix (Zosyn 4.5 (01/01/18 11:45) Phenytoin (Dilantin) (01/01/18 11:43) Labs Laboratory Tests Test 01/01/18 11:25 White Blood Count 6.7 TH/MM3 Red Blood Count 4.76 MIL/MM3 Hemoglobin 15.0 GM/DL Hematocrit 43.5 % Mean Corpuscular Volume 91.4 FL Mean Corpuscular Hemoglobin 31.4 PG Mean Corpuscular Hemoglobin Concent 34.4 % Red Cell Distribution Width 14.6 % Platelet Count 256 TH/MM3 Mean Platelet Volume 9.3 FL Neutrophils (%) (Auto) 76.6 % Lymphocytes (%) (Auto) 13.0 % Monocytes (%) (Auto) 9.7 % Eosinophils (%) (Auto) 0.4 % Basophils (%) (Auto) 0.3 % Neutrophils # (Auto) 5.2 TH/MM3 Lymphocytes # (Auto) 0.9 TH/MM3 Monocytes # (Auto) 0.7 TH/MM3 Eosinophils # (Auto) 0.0 TH/MM3 Basophils # (Auto) 0.0 TH/MM3 CBC Comment DIFF FINAL Differential Comment Prothrombin Time 11.5 SEC Prothromb Time International Ratio 1.1 RATIO Activated Partial Thromboplast Time 25.5 SEC Urine Color YELLOW Urine Turbidity CLEAR Urine pH 6.0 Urine Specific [place] 1.035 Urine Protein 100 mg/dL Urine Glucose (UA) NEG mg/dL Urine Ketones TRACE mg/dL Urine Occult Blood NEG Urine Nitrite NEG Urine Bilirubin NEG Urine Urobilinogen 2.0 MG/DL Urine Leukocyte Esterase NEG Urine RBC LESS THAN 1 /hpf Urine WBC 1 /hpf Urine Hyaline Casts 1 /lpf Urine Mucus FEW /lpf Microscopic Urinalysis Comment CATH-CULT NOT IND Blood Urea Nitrogen 17 MG/DL Creatinine 0.91 MG/DL Random Glucose 112 MG/DL Total Protein 8.5 GM/DL Albumin 4.0 GM/DL Calcium Level 9.6 MG/DL Magnesium Level 2.3 MG/DL Alkaline Phosphatase 196 U/L Aspartate Amino Transf (AST/SGOT) 35 U/L Alanine Aminotransferase (ALT/SGPT) 46 U/L Total Bilirubin 0.2 MG/DL Sodium Level 141 MEQ/L Potassium Level 4.2 MEQ/L Chloride Level 104 MEQ/L Carbon Dioxide Level 25.9 MEQ/L Anion Gap 11 MEQ/L Estimat Glomerular Filtration Rate 119 ML/MIN Lactic Acid Level 2.2 mmol/L MDM Medical Decision Making Medical Screen Exam Complete: Yes Emergency Medical Condition: Yes Medical Record Reviewed: Yes Differential Diagnosis Sepsis versus pneumonia versus electrolyte abnormality versus bacteremia versus UTI Narrative Course 32-year-old male presents to emergency department for evaluation of respiratory symptoms. Patient is in a persistent vegetative state and unable to provide any history. He does have coarse and diminished lung sounds. He is tachycardic with a low-grade temperature here in the emergency department. Sepsis workup was initiated. I discussed the patient with my attending physician was also assessed the patient and discussed it with the family. Please refer to her documentation. Last Impressions Chest X-Ray 01/01/18 1117 Signed Impressions: Service Date/Time: Monday, January 01, 2018 11:45 - CONCLUSION: 1. Low lung volumes with hazy opacity in the left mid to lower lung zones concerning for developing airspace disease. Benigno Pimentel MD Laboratory Tests Test 01/01/18 11:25 White Blood Count 6.7 TH/MM3 Red Blood Count 4.76 MIL/MM3 Hemoglobin 15.0 GM/DL Hematocrit 43.5 % Mean Corpuscular Volume 91.4 FL Mean Corpuscular Hemoglobin 31.4 PG Mean Corpuscular Hemoglobin Concent 34.4 % Red Cell Distribution Width 14.6 % Platelet Count 256 TH/MM3 Mean Platelet Volume 9.3 FL Neutrophils (%) (Auto) 76.6 % Lymphocytes (%) (Auto) 13.0 % Monocytes (%) (Auto) 9.7 % Eosinophils (%) (Auto) 0.4 % Basophils (%) (Auto) 0.3 % Neutrophils # (Auto) 5.2 TH/MM3 Lymphocytes # (Auto) 0.9 TH/MM3 Monocytes # (Auto) 0.7 TH/MM3 Eosinophils # (Auto) 0.0 TH/MM3 Basophils # (Auto) 0.0 TH/MM3 CBC Comment DIFF FINAL Differential Comment Prothrombin Time 11.5 SEC Prothromb Time International Ratio 1.1 RATIO Activated Partial Thromboplast Time 25.5 SEC Urine Color YELLOW Urine Turbidity CLEAR Urine pH 6.0 Urine Specific [place] 1.035 Urine Protein 100 mg/dL Urine Glucose (UA) NEG mg/dL Urine Ketones TRACE mg/dL Urine Occult Blood NEG Urine Nitrite NEG Urine Bilirubin NEG Urine Urobilinogen 2.0 MG/DL Urine Leukocyte Esterase NEG Urine RBC LESS THAN 1 /hpf Urine WBC 1 /hpf Urine Hyaline Casts 1 /lpf Urine Mucus FEW /lpf Microscopic Urinalysis Comment CATH-CULT NOT IND Blood Urea Nitrogen 17 MG/DL Creatinine 0.91 MG/DL Random Glucose 112 MG/DL Total Protein 8.5 GM/DL Albumin 4.0 GM/DL Calcium Level 9.6 MG/DL Magnesium Level 2.3 MG/DL Alkaline Phosphatase 196 U/L Aspartate Amino Transf (AST/SGOT) 35 U/L Alanine Aminotransferase (ALT/SGPT) 46 U/L Total Bilirubin 0.2 MG/DL Sodium Level 141 MEQ/L Potassium Level 4.2 MEQ/L Chloride Level 104 MEQ/L Carbon Dioxide Level 25.9 MEQ/L Anion Gap 11 MEQ/L Estimat Glomerular Filtration Rate 119 ML/MIN Lactic Acid Level 2.2 mmol/L Patient is given IV vancomycin and Zosyn. Call is placed to [facility] for admission. Sepsis Criteria SIRS Criteria (2 or more): Heart rate over 90, RR > 20 or PaCO2 < 32 Sepsis Criteria (SIRS+source): Infect source susp/known Severe Sepsis (+one): Lactate >2 Diagnosis Primary Impression: Severe sepsis Additional Impression: PNA (pneumonia) Qualified Codes: J18.1 - Lobar pneumonia, unspecified organism Admitting Information Admitting Physician Requests: Admit Condition: Stable ChinoNicki rodrigues LORY Jan 01, 2018 11:17
[2018-01-01 11:41] LABS: AUTOMATED NEUTROPHIL # 5.2 TH/MM3 (1.8-7.7); BASOPHIL % 0.3 % (0.0-2.0); EOSINOPHIL % 0.4 % (0.0-4.0); HEMATOCRIT 43.5 % (39.0-51.0); LYMPHOCYTE # 0.9 TH/MM3 (1.0-4.8); MEAN CELL VOLUME 91.4 FL (80.0-100.0); MEAN CORPUSCULAR HEMOGLOBIN 31.4 PG (27.0-34.0); MEAN CORPUSCULAR HGB CONC 34.4 % (32.0-36.0); MEAN PLATELET VOLUME 9.3 FL (7.0-11.0); MONO % 9.7 % (0.0-8.0); MONOCYTE # 0.7 TH/MM3 (0-0.9); NEUT % 76.6 % (16.0-70.0); PLATELET COUNT 256 TH/MM3 (150-450); RED BLOOD COUNT 4.76 MIL/MM3 (4.50-5.90); RED CELL DISTRIBUTION WIDTH 14.6 % (11.6-17.2); WHITE BLOOD COUNT 6.7 TH/MM3 (4.0-11.0)
[2018-01-01] MEDS ORDERED: VANCOMYCIN INJ 1,000 MG in SODIUM CHLOR 0.9% 250 ML INJ 250 ML IV ONE (11:45)
[2018-01-01] MEDS ORDERED: PIPERACIL-TAZO 4.5 GM PREMIX 100 ML IV ONE (11:45)
[2018-01-01 11:52] LABS: INTERNATIONAL NORMALIZED RATIO 1.1 RATIO; PROTHROMBIN TIME - PATIENT 11.5 SEC (9.8-11.6)
[2018-01-01 11:54] LABS: ALT (GPT) 46 U/L (12-78); AST (GOT) 35 U/L (15-37); BICARBONATE 25.9 MEQ/L (21.0-32.0); BLOOD UREA NITROGEN 17 MG/DL (7-18); CALCIUM 9.6 MG/DL (8.5-10.1); CHLORIDE 104 MEQ/L (98-107); CREATININE 0.91 MG/DL (0.60-1.30); GLOMERULAR FILTRATION RATE 119 ML/MIN (>89); GLUCOSE,RANDOM 112 MG/DL (74-106); MAGNESIUM 2.3 MG/DL (1.5-2.5); SODIUM (NA) 141 MEQ/L (136-145)
--- NOTE | 2018-01-01 11:55 | PD ---
Physical Exam Date Seen by Provider: Jan 01, 2018 Time Seen by Provider: 11:52 Narrative 32-year-old male with hypoxic encephalopathy, vegetative state, ventilator dependent [facility] increasing posturing and a temperature of 99. Patient has been in the emergency room and hospitalized multiple times for infection and sepsis. In fact he was just discharged December 20 after being treated for sepsis/ pneumonia. Patient is seen by my nurse practitioner and I'm supervising her. I spoke with his mother. Mother is closely involved with his care. Patient appears to be in his usual vegetative state with some tachycardia. If I remember correctly patient has always had a high resting heart rate. Patient is getting a sepsis workup along with IV Zosyn and vancomycin for possible hospital-acquired pneumonia. Patient will require admission again this time. Workup is pending. Data Data Last Documented VS Vital Signs Date Time Temp Pulse Resp B/P (MAP) Pulse Ox O2 Delivery O2 Flow Rate FiO2 01/01/18 14:00 71 20 114/61 (78) 99 T-piece 5.00 28 01/01/18 12:04 100.1 Orders Orders Sepsis Workup Initiated (01/01/18 ) Electrocardiogram (01/01/18 11:17) Complete Blood Count With Diff (01/01/18 11:17) Comprehensive Metabolic Panel (01/01/18 11:17) Prothrombin Time / Inr (Pt) (01/01/18 11:17) Act Partial Throm Time (Ptt) (01/01/18 11:17) Lactic Acid Sepsis Protocol (01/01/18 11:17) Magnesium (Mg) (01/01/18 11:17) Urinalysis - C+S If Indicated (01/01/18 11:17) Influenzae A/B Antigen (01/01/18 11:17) Blood Culture (01/01/18 11:17) Sputum Culture And Gram Stain (01/01/18 11:17) Chest, Single Ap (01/01/18 11:17) Blood Glucose (01/01/18 11:17) Ecg Monitoring (01/01/18 11:17) Iv Access Insert/Monitor (01/01/18 11:17) Cath For Specimen (01/01/18 11:17) Oximetry (01/01/18 11:17) Oxygen Administration (01/01/18 11:17) Sodium Chlor 0.9% 1000 Ml Inj (Ns 1000 M (01/01/18 11:17) Sodium Chlor 0.9% 1000 Ml Inj (Ns 1000 M (01/01/18 11:17) Sodium Chlor 0.9% 1000 Ml Inj (Ns 1000 M (01/01/18 11:17) Ceftriaxone Inj (Rocephin Inj) (01/01/18 11:17) Azithromycin Inj (Zithromax Inj) (01/01/18 11:17) Vancomycin Inj (Vancomycin Inj) (01/01/18 11:45) Piperacil-Tazo 4.5 Gm Premix (Zosyn 4.5 (01/01/18 11:45) Phenytoin (Dilantin) (01/01/18 11:43) Admit Order (Ed Use Only) (01/01/18 14:03) Labs Laboratory Tests Test 01/01/18 11:25 White Blood Count 6.7 TH/MM3 Red Blood Count 4.76 MIL/MM3 Hemoglobin 15.0 GM/DL Hematocrit 43.5 % Mean Corpuscular Volume 91.4 FL Mean Corpuscular Hemoglobin 31.4 PG Mean Corpuscular Hemoglobin Concent 34.4 % Red Cell Distribution Width 14.6 % Platelet Count 256 TH/MM3 Mean Platelet Volume 9.3 FL Neutrophils (%) (Auto) 76.6 % Lymphocytes (%) (Auto) 13.0 % Monocytes (%) (Auto) 9.7 % Eosinophils (%) (Auto) 0.4 % Basophils (%) (Auto) 0.3 % Neutrophils # (Auto) 5.2 TH/MM3 Lymphocytes # (Auto) 0.9 TH/MM3 Monocytes # (Auto) 0.7 TH/MM3 Eosinophils # (Auto) 0.0 TH/MM3 Basophils # (Auto) 0.0 TH/MM3 CBC Comment DIFF FINAL Differential Comment Prothrombin Time 11.5 SEC Prothromb Time International Ratio 1.1 RATIO Activated Partial Thromboplast Time 25.5 SEC Urine Color YELLOW Urine Turbidity CLEAR Urine pH 6.0 Urine Specific [place] 1.035 Urine Protein 100 mg/dL Urine Glucose (UA) NEG mg/dL Urine Ketones TRACE mg/dL Urine Occult Blood NEG Urine Nitrite NEG Urine Bilirubin NEG Urine Urobilinogen 2.0 MG/DL Urine Leukocyte Esterase NEG Urine RBC LESS THAN 1 /hpf Urine WBC 1 /hpf Urine Hyaline Casts 1 /lpf Urine Mucus FEW /lpf Microscopic Urinalysis Comment CATH-CULT NOT IND Blood Urea Nitrogen 17 MG/DL Creatinine 0.91 MG/DL Random Glucose 112 MG/DL Total Protein 8.5 GM/DL Albumin 4.0 GM/DL Calcium Level 9.6 MG/DL Magnesium Level 2.3 MG/DL Alkaline Phosphatase 196 U/L Aspartate Amino Transf (AST/SGOT) 35 U/L Alanine Aminotransferase (ALT/SGPT) 46 U/L Total Bilirubin 0.2 MG/DL Sodium Level 141 MEQ/L Potassium Level 4.2 MEQ/L Chloride Level 104 MEQ/L Carbon Dioxide Level 25.9 MEQ/L Anion Gap 11 MEQ/L Estimat Glomerular Filtration Rate 119 ML/MIN Lactic Acid Level 2.2 mmol/L Phenytoin (Dilantin) Level 17.2 MCG/ML MDM Supervised Visit with GARRET: Yes Critical Care Narrative Aggregate critical care time was 30 minutes. Time to perform other separately billable procedures was not included in the critical care time. My time did not include minutes spent treating any other patients simultaneously or on activities that did not directly contribute to the patient's treatment. The services I provided to this patient were to treat and/or prevent clinically significant deterioration that could result in: Sepsis, sepsis but I provided critical care services requiring my management, as noted below: Chart data review, documentation time, medication orders and management, vital sign assessments/reviewing monitor data, ordering and reviewing lab tests, ordering and interpreting/reviewing x-rays and diagnostic studies, care of the patient and discussion of the patient with the admitting physicians. Tiago Britt MD Jan 01, 2018 11:55
[2018-01-01 11:57] LABS: ALKALINE PHOSPHATASE 196 U/L (45-117); LACTIC ACID SEPSIS PROTOCOL 2.2 mmol/L (0.4-2.0); TOTAL BILIRUBIN ADULT 0.2 MG/DL (0.2-1.0); TOTAL PROTEIN 8.5 GM/DL (6.4-8.2)
--- NOTE | 2018-01-01 12:03 | RADRPT ---
EXAM DATE/TIME: 01/01/2018 11:45 [facility] COMPARISON: CHEST SINGLE AP, December 07, 2017, 3:33. CHEST SINGLE AP, December 10, 2017, 3:25. INDICATIONS : Fever and shortness of breath. MEDICAL HISTORY : Myocardial infarction. Hypercholesterolemia. Hypertension. Anoxic brain injury. SURGICAL HISTORY : Tracheostomy, Peg tube ENCOUNTER: Initial ACUITY: 1 day PAIN SCORE: Non-responsive. LOCATION: Bilateral chest FINDINGS: Stable tracheostomy. Lungs are hypoaerated with mil hazy opacity in the left mid to lower lung zones. Cardiomediastinal contours are within normal limits. Remainder of the exam is unchanged. CONCLUSION: 1. Low lung volumes with hazy opacity in the left mid to lower lung zones concerning for developing a irspace disease. Benigno Pimentel MD on January 01, 2018 at 12:00 Board Certified Radiologist. This report was verified electronically.
[2018-01-01 12:18] LABS: BILIRUBIN, URINE NEG (NEG); BLOOD, URINE NEG (NEG); GLUCOSE,URINE NEG (NEG); HYALINE CAST, URINE 1 /lpf (RARE); KETONE, URINE TRACE mg/dL (NEG); MUCUS URINE FEW /lpf (OCC); NITRITE,URINE NEG (NEG); URINE COLOR YELLOW (YELLW/STRAW); URINE LEUKOCYTE ESTERASE NEG (NEG)
[2018-01-01] MEDS ORDERED: METO25TA3 PO (13:03)
[2018-01-01] MEDS ORDERED: LORA-392 PO (13:03)
[2018-01-01] MEDS ORDERED: ATIV2INJ2 IM (13:03)
[2018-01-01] MEDS ORDERED: ATROPINE 1% PO (13:03)
[2018-01-01] MEDS ORDERED: CLAR10TA7 G-TUBE (13:03)
[2018-01-01] MEDS ORDERED: MULTTAB62 G-TUBE (13:03)
[2018-01-01] MEDS ORDERED: POTA10SO12 G-TUBE (13:03)
[2018-01-01] MEDS ORDERED: LEVE100S G-TUBE (13:03)
[2018-01-01] MEDS ORDERED: SODIUM CHLORIDE 0.9% FLUSH 10 ML FLUSH IV FLUSH PRN (14:15)
[2018-01-01] MEDS ORDERED: ENOXAPARIN SODIUM 40 MG/0.4 ML SYRINGE SQ SCH (14:15)
[2018-01-01] MEDS ORDERED: NALOXONE HCL 0.4 MG/ML AMP IV PUSH PRN (14:15)
[2018-01-01] MEDS ORDERED: ACETAMINOPHEN 325 MG TAB PO PRN (14:15)
[2018-01-01] MEDS ORDERED: ONDANSETRON HCL 4 MG/2 ML VIAL IVP PRN (14:15)
[2018-01-01] MEDS ORDERED: LORazepam 2 MG/ML VIAL IM PRN (14:30)
[2018-01-01] MEDS ORDERED: LORazepam 0.5 MG TAB G-TUBE PRN (14:30)
[2018-01-01] MEDS ORDERED: ATROPINE SULFATE 1% OPHT SOLN 2 ML BTL SL PRN (14:30)
--- NOTE | 2018-01-01 14:35 | HHI.HP ---
HPI Service [facility] Primary Care Physician No Primary Care Physician Admission Diagnosis severe sepsis; PNA Diagnoses: Chief Complaint: Fever, tremors, tachycardia Travel History International Travel<30 Days: No Contact w/Intl Traveler <30 Da: No Traveled to Known Affected Are: No History of Present Illness 32-year-old -Canadian male with history of anoxic brain injury with aphasia, seizure disorder, with chronic trach and PEG tube was sent from [facility] due to change in chronic condition with increase heart rate, increased secretions, respiratory rate. Patient had a previous recent hospitalization for sepsis and has a history of multidrug-resistant tracheobronchitis and pneumonia with previous conization of ESBL E. coli and Pseudomonas. Most recently completed a course of Bactrim at [facility] upon discharge. At this time , I am unable to give further history from the patient other than reviewing old charts or records. Review of Systems ROS Limitations: Clinical Condition, Altered Mental Status, Unresponsive Past Family Social History Past Medical History Left upper extremity DVT Apixaban use/chronic Anoxic brain injury Seizure disorder NOS Hypertension Dyslipidemia Diabetes mellitus History of pancreatitis Muscle spasticity Gastroesophageal reflux disease Past Surgical History Tracheostomy PEG tube Allergies: Coded Allergies: haloperidol (Unverified Adverse Reaction, Severe, Seizures, 12/17/17) *MDRO Multi-Drug Resistant Organism (Verified Adverse Reaction, Unknown, ) MRSA (sputum) - 04/25/16 & 05/23/16 MRSA PCR Screen POSITIVE - 04/25/2016 ESBL+E.Coli (blood-05/22/16) Family History Unable to obtain Social History Unable to obtain, current resident at [facility]. Physical Exam Vital Signs Vital Signs Date Time Temp Pulse Resp B/P (MAP) Pulse Ox O2 Delivery O2 Flow Rate FiO2 01/01/18 12:52 98 T-piece 5.00 28 01/01/18 12:22 96 18 118/65 (82) 98 01/01/18 12:04 100.1 01/01/18 11:15 98.7 109 27 134/73 (93) 96 01/01/18 11:15 99 Trach Collar 01/01/18 11:15 109 18 134/73 (99) 54 Trach Collar Physical Exam GENERAL: This is a thin, well-developed patient, in no apparent distress in bed with trach. SKIN: No rashes, ecchymoses or lesions. Cool and dry. HEAD: Atraumatic. Normocephalic. No temporal or scalp tenderness. EYES: No scleral icterus. No injection or drainage. ENT: Nose without bleeding, purulent drainage or septal hematoma. Throat without erythema, tonsillar hypertrophy or exudate. Uvula midline. Airway patent. NECK: Trach in place with whitish secretions around site, . Supple, nontender, no meningeal signs. CARDIOVASCULAR: Regular rate and rhythm without murmurs, gallops, or rubs. RESPIRATORY: Bilateral coarse breath sounds bilaterally.. GASTROINTESTINAL: Abdomen soft, non-tender, nondistended. Normoactive bowel sounds. G-tube in place. Bandage in place MUSCULOSKELETAL: Atrophied and contracted. NEUROLOGICAL: Did not respond to voice. Laboratory Laboratory Tests Test 01/01/18 11:25 White Blood Count 6.7 Red Blood Count 4.76 Hemoglobin 15.0 Hematocrit 43.5 Mean Corpuscular Volume 91.4 Mean Corpuscular Hemoglobin 31.4 Mean Corpuscular Hemoglobin Concent 34.4 Red Cell Distribution Width 14.6 Platelet Count 256 Mean Platelet Volume 9.3 Neutrophils (%) (Auto) 76.6 Lymphocytes (%) (Auto) 13.0 Monocytes (%) (Auto) 9.7 Eosinophils (%) (Auto) 0.4 Basophils (%) (Auto) 0.3 Neutrophils # (Auto) 5.2 Lymphocytes # (Auto) 0.9 Monocytes # (Auto) 0.7 Eosinophils # (Auto) 0.0 Basophils # (Auto) 0.0 CBC Comment DIFF FINAL Differential Comment Prothrombin Time 11.5 Prothromb Time International Ratio 1.1 Activated Partial Thromboplast Time 25.5 Urine Color YELLOW Urine Turbidity CLEAR Urine pH 6.0 Urine Specific [place] 1.035 Urine Protein 100 Urine Glucose (UA) NEG Urine Ketones TRACE Urine Occult Blood NEG Urine Nitrite NEG Urine Bilirubin NEG Urine Urobilinogen 2.0 Urine Leukocyte Esterase NEG Urine RBC LESS THAN 1 Urine WBC 1 Urine Hyaline Casts 1 Urine Mucus FEW Microscopic Urinalysis Comment CATH-CULT NOT IND Blood Urea Nitrogen 17 Creatinine 0.91 Random Glucose 112 Total Protein 8.5 Albumin 4.0 Calcium Level 9.6 Magnesium Level 2.3 Alkaline Phosphatase 196 Aspartate Amino Transf (AST/SGOT) 35 Alanine Aminotransferase (ALT/SGPT) 46 Total Bilirubin 0.2 Sodium Level 141 Potassium Level 4.2 Chloride Level 104 Carbon Dioxide Level 25.9 Anion Gap 11 Estimat Glomerular Filtration Rate 119 Lactic Acid Level 2.2 Phenytoin (Dilantin) Level 17.2 Date/Time Source Procedure Growth Status 01/01/18 11:24 Blood Peripheral Aerobic Blood Culture Pending Received 01/01/18 11:24 Blood Peripheral Anaerobic Blood Culture Pending Received 01/01/18 11:35 Nasal Washing Influenza Types A,B Antigen (KASSANDRA) - Final NEGATIVE FOR FLU A AND B ANTIGEN.... Complete Result Diagram: 01/01/18 1125 01/01/18 1125 Imaging EKG was normal sinus rhythm with heart rate of 98. Last Impressions Chest X-Ray 01/01/18 1117 Signed Impressions: Service Date/Time: Monday, January 01, 2018 11:45 - CONCLUSION: 1. Low lung volumes with hazy opacity in the left mid to lower lung zones concerning for developing airspace disease. MD Baljit Jiménez VTE Risk Assessment Caprini VTE Risk Assessment: Mod/High Risk (score >= 2) Caprini Risk Assessment Model Point Value = 1 Point Value = 2 Point Value = 3 Point Value = 5 Age 41-60 Minor surgery BMI > 25 kg/m2 Swollen legs Varicose veins or History of unexplained or recurrent spontaneous Oral contraceptives or hormone replacement Sepsis (< 1 month) Serious lung disease, including pneumonia (< 1 month) Abnormal pulmonary function Acute myocardial infarction Congestive heart failure (< 1 month) History of inflammatory bowel disease Medical patient at bed rest Age 61-74 Arthroscopic surgery Major open surgery (> 45 min) Laparoscopic surgery (> 45 min) Malignancy Confined to bed (> 72 hours) Immobilizing plaster cast Central venous access Age >= 75 History of VTE Family history of VTE Factor V Leiden Prothrombin [id number] Lupus anticoagulant Anticardiolipin antibodies Elevated serum homocysteine Heparin-induced thrombocytopenia Other congenital or acquired thrombophilia Stroke (< 1 month) Elective arthroplasty Hip, pelvis, or leg fracture Acute spinal cord injury (< 1 month) Prophylaxis Regimen Total Risk Factor Score Risk Level Prophylaxis Regimen 0-1 Low Early ambulation 2 Moderate Order ONE of the following: *Sequential Compression Device (SCD) *Heparin 5000 units SQ BID 3-4 Higher Order ONE of the following medications: *Heparin 5000 units SQ TID *Enoxaparin/Lovenox 40 mg SQ daily (WT < 150 kg, CrCl > 30 mL/min) *Enoxaparin/Lovenox 30 mg SQ daily (WT < 150 kg, CrCl > 10-29 mL/min) *Enoxaparin/Lovenox 30 mg SQ BID (WT < 150 kg, CrCl > 30 mL/min) AND/OR *Sequential Compression Device (SCD) 5 or more Highest Order ONE of the following medications: *Heparin 5000 units SQ TID (Preferred with Epidurals) *Enoxaparin/Lovenox 40 mg SQ daily (WT < 150 kg, CrCl > 30 mL/min) *Enoxaparin/Lovenox 30 mg SQ daily (WT < 150 kg, CrCl > 10-29 mL/min) *Enoxaparin/Lovenox 30 mg SQ BID (WT < 150 kg, CrCl > 30 mL/min) AND *Sequential Compression Device (SCD) Assessment and Plan Assessment and Plan 1. Suspected severe sepsis on admission due to symptoms of tachycardia and tachypnea and increased secretions with possible tracheobronchitis and early healthcare associated pneumonia-Zosyn and vancomycin, Zithromax given. Follow- up with final sputum cultures and sensitivity obtained along with blood cultures. Lactic acid 2.2 with repeat levels pending. Obtain infectious disease consultation for evaluation due to history of MDRO. IV fluid hydration and supportive care. 2. History of anoxic brain injury -supportive care with nutrition 3. History of history of Seizure disorder, await Dilantin level, resume Keppra 4. History of hypertension- hold Norvasc until further blood pressure trends evaluated due to suspected severe sepsis. 5. Hx of upper extremity DVT and VTE prophylaxis continue with [facility] Physician Certification 2 Midnight Certification Type: Admission for Inpatient Services Order for Inpatient Services The services are ordered in accordance with Medicare regulations or non- Medicare payer requirements, as applicable. In the case of services not specified as inpatient-only, they are appropriately provided as inpatient services in accordance with the 2-midnight benchmark. Estimated LOS (days): 4 days is the estimated time the patient will need to remain in the hospital, assuming treatment plan goals are met and no additional complications. Post-Hospital Plan: [facility] Amira Smith MD Jan 01, 2018 14:35
[2018-01-01] MEDS ORDERED: RESP: ALBUTEROL 2.5 MG/3 ML NEB (PRN) INH (14:45)
[2018-01-01] MEDS ORDERED: DEXTROSE 50% IN WATER 50 ML VIAL(D50) IV PUSH PRN (15:00)
[2018-01-01] MEDS ORDERED: GLUCAGON 1 MG/ML VIAL OTHER PRN (15:00)
[2018-01-01] MEDS: PIPERACIL-TAZO 4.5 GM PREMIX 100 ML IV SCH (15:00)
[2018-01-01] MEDS: VANCOMYCIN INJ 1,000 MG in SODIUM CHLOR 0.9% 250 ML INJ 250 ML IV SCH (15:00)
[2018-01-01] MEDS: RESP: ALBUTEROL 2.5 MG/IPRATROPIUM 0.5 MG NEB (SCH) NEB ×3 (15:20→23:35)
[2018-01-01] MEDS: HYOSCYAMINE 0.125 MG TAB G-TUBE SCH ×2 (16:00→23:36)
[2018-01-01] MEDS: INSULIN ASPART SUPPLEMENTAL SCALE SQ SCH ×2 (17:00→21:00)
[2018-01-01] MEDS: AZITHROMYCIN INJ 500 MG in SODIUM CHLOR 0.9% 250 ML INJ 250 ML IV SCH (23:34)
[2018-01-01] MEDS: SODIUM CHLOR 0.9% 1000 ML INJ 1,000 ML IV SCH (23:34)
[2018-01-01] MEDS: levETIRAcetam 500 MG/5 ML UDC G-TUBE SCH (23:35)
[2018-01-01] MEDS: METOPROLOL TARTRATE 25 MG TAB PO SCH (23:35)
[2018-01-01] MEDS: PHENYTOIN SUSP 100 MG/4 ML CUP PO SCH (23:35)
[2018-01-01] MEDS: FAMOTIDINE 20 MG TAB G-TUBE SCH (23:36)
[2018-01-01] MEDS: POTASSIUM CHLORIDE 25 MEQ EFFERVESCENT TAB NG SCH (23:36)
[2018-01-01] MEDS: APIXABAN 5 MG TABLET G-TUBE SCH (23:36)
[2018-01-01] MEDS: SODIUM CHLORIDE 0.9% FLUSH 10 ML FLUSH IV FLUSH SCH (23:38)
[2018-01-02] VITALS (11 sets, daily range): BP systolic 104–126; BP diastolic 56–74; PULSE 55–81; RESP 18–22; TEMP 97.4–99.3; O2SAT 94–100
[2018-01-02] MEDS: RESP: ALBUTEROL 2.5 MG/IPRATROPIUM 0.5 MG NEB (SCH) NEB ×5 (03:34→19:03)
[2018-01-02] MEDS: PIPERACIL-TAZO 4.5 GM PREMIX 100 ML IV SCH ×4 (03:52→22:17)
[2018-01-02] MEDS: HYOSCYAMINE 0.125 MG TAB G-TUBE SCH ×6 (04:24→23:53)
[2018-01-02] MEDS: VANCOMYCIN INJ 1,000 MG in SODIUM CHLOR 0.9% 250 ML INJ 250 ML IV SCH ×2 (04:24→14:29)
[2018-01-02] MEDS: INSULIN ASPART SUPPLEMENTAL SCALE SQ SCH ×4 (08:00→21:00)
--- NOTE | 2018-01-02 10:10 | EKG ---
Date Performed: 01/01/2018 Time Performed: 12:05:43 PTAGE: 32 years EKG: Sinus rhythm INDETERMINATE AXIS ATYPICAL ECG PREVIOUS TRACING : 11/30/2017 09.08 DOCTOR: Justin Dean Interpretating Date/Time 01/02/2018 10:08:45
[2018-01-02] MEDS: LORATADINE 10 MG TAB G-TUBE SCH (10:19)
[2018-01-02] MEDS: LORazepam 0.5 MG TAB PO SCH (10:20)
[2018-01-02] MEDS: BACLOFEN 20 MG TAB G-TUBE SCH ×3 (10:20→17:18)
[2018-01-02] MEDS: MULTIVITAMIN TAB G-TUBE SCH (10:20)
[2018-01-02] MEDS: FAMOTIDINE 20 MG TAB G-TUBE SCH ×2 (10:20→22:13)
[2018-01-02] MEDS: levETIRAcetam 500 MG/5 ML UDC G-TUBE SCH ×2 (10:21→22:12)
[2018-01-02] MEDS: APIXABAN 5 MG TABLET G-TUBE SCH ×2 (10:21→22:11)
[2018-01-02] MEDS: POTASSIUM CHLORIDE 25 MEQ EFFERVESCENT TAB NG SCH ×2 (10:22→22:15)
[2018-01-02] MEDS: METOPROLOL TARTRATE 25 MG TAB PO SCH ×2 (10:22→21:00)
[2018-01-02] MEDS: PHENYTOIN SUSP 100 MG/4 ML CUP PO SCH ×2 (10:22→22:13)
[2018-01-02] MEDS: SODIUM CHLORIDE 0.9% FLUSH 10 ML FLUSH IV FLUSH SCH ×2 (10:23→22:15)
[2018-01-02] MEDS: SODIUM CHLOR 0.9% 1000 ML INJ 1,000 ML IV SCH ×2 (11:00→22:18)
[2018-01-02 12:10] LABS: AUTOMATED NEUTROPHIL # 2.3 TH/MM3 (1.8-7.7); BASOPHIL % 0.2 % (0.0-2.0); EOSINOPHIL # 0.1 TH/MM3 (0-0.4); EOSINOPHIL % 3.2 % (0.0-4.0); HEMATOCRIT 36.3 % (39.0-51.0); HEMOGLOBIN 12.4 GM/DL (13.0-17.0); LYMPH % 27.2 % (9.0-44.0); LYMPHOCYTE # 1.1 TH/MM3 (1.0-4.8); MEAN CELL VOLUME 92.3 FL (80.0-100.0); MEAN CORPUSCULAR HEMOGLOBIN 31.4 PG (27.0-34.0); MEAN PLATELET VOLUME 9.6 FL (7.0-11.0); MONOCYTE # 0.6 TH/MM3 (0-0.9); NEUT % 54.4 % (16.0-70.0); PLATELET COUNT 171 TH/MM3 (150-450); RED BLOOD COUNT 3.93 MIL/MM3 (4.50-5.90); RED CELL DISTRIBUTION WIDTH 14.2 % (11.6-17.2); WHITE BLOOD COUNT 4.2 TH/MM3 (4.0-11.0)
[2018-01-02 12:20] LABS: BICARBONATE 25.8 MEQ/L (21.0-32.0); CALCIUM 8.7 MG/DL (8.5-10.1); CREATININE 0.69 MG/DL (0.60-1.30)
--- NOTE | 2018-01-02 13:34 | PD.ID.CON ---
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 Patient has been in the emergency room and hospitalized multiple times for infection and sepsis. He was just discharged December 20 after being treated for sepsis/pneumonia. He grew out multiple GNBs from the sputum during his last hospitalisation including an extreme MDRO PSAE He was Rx with Zerbaxa Pt was started on IV Zosyn and vancomycin for possible hospital-acquired pneumonia. CXR showed developing infiltrate Low grade temps but no leukocytosis on presentation RN reports no fever and moderate marie secretions tioday He is on 28 % of FiO2 Flu test negative, Blood clx neg @ 1 day and sputum g-stain showed MANY WBC'S and FEW PLEOMORPHIC GRAM POSITIVE RODS Review of Systems ROS Limitations: Clinical Condition, Unresponsive Past Family Social History Allergies: Coded Allergies: haloperidol (Unverified Adverse Reaction, Severe, Seizures, 12/17/17) *MDRO Multi-Drug Resistant Organism (Verified Adverse Reaction, Unknown, ) MRSA (sputum) - 04/25/16 & 05/23/16 MRSA PCR Screen POSITIVE - 04/25/2016 ESBL+E.Coli (blood-05/22/16) Past Medical History (Obtained from medical records review) anoxic encephalopathy injury with persistent vegetative state History of DVT on Coumadin Recurrent pneumonia/sepsis Seizure disorder Past Surgical History chrnic PEG, trach Active Ordered Medications Medications where reviewed in EMR Antibiotics Include: azithro zosyn vanco Family History No family history of diabetes mellitus or CAD Social History reseides in [facility] No past alcohol, tobacco or drugs Physical Exam Vital Signs Vital Signs Date Time Temp Pulse Resp B/P (MAP) Pulse Ox O2 Delivery O2 Flow Rate FiO2 01/02/18 12:17 100 T-piece 5.00 28 01/02/18 12:07 98.8 58 22 124/60 (81) 99 01/02/18 08:07 98.6 57 22 126/59 (81) 99 01/02/18 04:00 T-Piece 5.00 28 01/02/18 04:00 98.5 71 20 104/66 (79) 100 01/02/18 03:45 75 01/02/18 00:42 99.3 73 18 112/74 (87) 98 01/02/18 00:00 T-Piece 5.00 28 01/02/18 00:00 81 01/01/18 20:00 98.4 54 20 97/50 (66) 99 01/01/18 20:00 85 01/01/18 20:00 Trach Collar 5.00 28 01/01/18 19:19 99 Trach Collar 6.00 28 01/01/18 18:30 98.8 65 18 109/64 (79) 99 01/01/18 18:26 98 01/01/18 18:00 60 18 107/55 (72) 98 Trach Collar 01/01/18 17:00 62 21 112/61 (78) 98 Trach Collar 5.00 28 01/01/18 16:00 70 24 118/57 (77) 99 T-piece 5.00 28 01/01/18 15:00 82 23 61/ 99 T-piece 5.00 28 01/01/18 14:00 71 20 114/61 (78) 99 T-piece 5.00 28 Physical Exam CONSTITUTIONAL/GENERAL: This is an adequately nourished patient, in no apparent distress. TUBES/LINES/DRAINS: SKIN: No jaundice, rashes, or lesions. Skin temperature appropriate. Not diaphoretic. HEAD: Atraumatic. Normocephalic. EYES: Pupils equal and round and reactive. Extraocular motions intact. No scleral icterus. No injection or drainage. Fundi not examined. ENT: Hearing grossly normal. Nose without bleeding or purulent drainage. Throat without visible erythema, exudates, masses, or lesions. NECK: Trachea midline. Trach in place site [place] CARDIOVASCULAR: Regular rate and rhythm without murmurs, gallops, or rubs. No JVD. Peripheral pulses symmetric. RESPIRATORY/CHEST: Symmetric, unlabored respirations. Clear to auscultation. Breath sounds equal bilaterally. No wheezes, rales, or rhonchi. GASTROINTESTINAL: Abdomen soft, non-tender, nondistended. No hepato-splenomegaly , or palpable masses. No guarding. Bowel sounds present. PEG in place GENITOURINARY: Without palpable bladder distension. MUSCULOSKELETAL: Extremities without clubbing, cyanosis, or edema. No joint tenderness or effusion noted. No calf tenderness. No mottling or clubbing. LYMPHATICS: No palpable cervical or supraclavicular adenopathy. NEUROLOGICAL: Unresponsive, Eyes closedd contracted PSYCHIATRIC: unable to assess Laboratory Laboratory Tests Test 01/01/18 15:14 01/02/18 11:29 Lactic Acid Level 1.0 White Blood Count 4.2 Red Blood Count 3.93 Hemoglobin 12.4 Hematocrit 36.3 Mean Corpuscular Volume 92.3 Mean Corpuscular Hemoglobin 31.4 Mean Corpuscular Hemoglobin Concent 34.0 Red Cell Distribution Width 14.2 Platelet Count 171 Mean Platelet Volume 9.6 Neutrophils (%) (Auto) 54.4 Lymphocytes (%) (Auto) 27.2 Monocytes (%) (Auto) 15.0 Eosinophils (%) (Auto) 3.2 Basophils (%) (Auto) 0.2 Neutrophils # (Auto) 2.3 Lymphocytes # (Auto) 1.1 Monocytes # (Auto) 0.6 Eosinophils # (Auto) 0.1 Basophils # (Auto) 0.0 CBC Comment DIFF FINAL Differential Comment Blood Urea Nitrogen 7 Creatinine 0.69 Random Glucose 100 Calcium Level 8.7 Sodium Level 143 Potassium Level 3.6 Chloride Level 108 Carbon Dioxide Level 25.8 Anion Gap 9 Estimat Glomerular Filtration Rate 163 Date/Time Source Procedure Growth Status 01/01/18 11:24 Blood Peripheral Aerobic Blood Culture - Preliminary NO GROWTH IN 1 DAY Resulted 01/01/18 11:24 Blood Peripheral Anaerobic Blood Culture - Preliminary NO GROWTH IN 1 DAY Resulted 01/01/18 11:35 Nasal Washing Influenza Types A,B Antigen (KASSANDRA) - Final NEGATIVE FOR FLU A AND B ANTIGEN.... Complete Result Diagram: 01/02/18 1129 01/02/18 1129 Imaging Last Impressions Chest X-Ray 01/01/18 1117 Signed Impressions: Service Date/Time: Monday, January 01, 2018 11:45 - CONCLUSION: 1. Low lung volumes with hazy opacity in the left mid to lower lung zones concerning for developing airspace disease. Benigno Pimentel MD Assessment and Plan Assessment and Plan Anoxic encephalopathy\ PNA chronic trach Clinically improved on current abx H/o MDRO despite of recent h/o MDROs pt sems to improve on current abx choice and is stabel and afebrile, therefore will continue for now current abx monitor clx monitor clinically; will use Avicaz if fever, increase secretions or other s/o uncontrolled infx Discussed Condition With Nannette Nguyen MD Jan 02, 2018 13:34
[2018-01-02] MEDS ORDERED: IOHEXOL 350 MG/ML 50 ML BTL (for RAD DIAG) G-TUBE ONE (15:25)
--- NOTE | 2018-01-02 15:58 | PD.RAD ---
Post Procedure Progress Note Pre Procedure Diagnosis: (1) PEG tube malfunction Post Procedure Diagnosis: (1) PEG tube malfunction Procedure Date: Jan 02, 2018 Supervising Radiologist: Ernst Goodman JR Proceduralist/Assist: Eduardo Roa, RT(R), Winsome Lange RT(R) Anesthesia: Other Plan of Activity Patient to Unit: Critical Care Patient Condition: Good See PACS Report for procedural detail/treatment Feeding Tube Gastro/Jejunostomy Exchange Tajik: 22 Findings: Original GJ tube jejunal port occluded. Unable to free up blockage. Replaced with new GJ tube. Jr. Rex,Ernst Marks MD Jan 02, 2018 15:57
[2018-01-02] MEDS: AZITHROMYCIN INJ 500 MG in SODIUM CHLOR 0.9% 250 ML INJ 250 ML IV SCH (17:20)
--- NOTE | 2018-01-02 17:31 | RADRPT ---
EXAM DATE/TIME: 01/02/2018 15:51 [place] COMPARISON: No previous studies available for comparison. INDICATIONS : Patient with history of anoxic brain injury with occluded jejunal tube. In need of GJ tube exchange. MEDICAL HISTORY : Anoxic brain injury, Seizures, Chronic trach, Aphasia, DVT, HTN, HLD, Diabetes, Pancreatitis, GERD SURGICAL HISTORY : Tracheostomy, PEG tube placement ENCOUNTER: Subsequent ACUITY: 1 day PAIN SCORE: 0/10 FLUORO TIME: 6.4 minutes IMAGE SERIES: 2 CONTRAST: 20 cc Omnipaque (iohexol) 350 DEVICE(S): 1.) 22 [place] Transgastric tube PROCEDURE : 1. Fluoroscopically guided gastrojejunostomy tube exchange. 2. Conscious sedation with continuous EKG and oximetry monitoring. The risks, benefits and alternatives to the procedure were explained and verbal and written consent w as obtained. The site was prepped in sterile fashion. Full sterile technique was used, including ca p, mask, sterile gloves and gown and a large sterile sheet. Hand hygiene and 2% chlorhexidine and/or betadine/alcohol prep was utilized per protocol for cutaneous antisepsis. The skin and subcutaneous tissues were infiltrated with local anesthetic solution. With fluoroscopic guidance a guidewire was passed through the previous gastrojejunostomy tube with je junal tube is occluded and would not allow the wire to be passed. The balloon was deflated and the tu be removed. A Berenstein catheter in conjunction with an angled glide wire was utilized to gain acces s into the jejunum. A fresh tube was placed over the guidewire. The balloon was inflated with approp riate volume of saline. Injection of positive contrast demonstrates good position of the gastric and jejunal lumens of the tube. Conscious sedation was performed with the prescribed dosages and duration as above in the presence of an independent trained radiology nurse to assist in the monitoring of the patient. EKG and oximetry remained stable throughout the procedure. The patient tolerated the procedure well and there were n o complications. The patient was sent to post anesthesia recovery in stable condition. CONCLUSION: Uncomplicated gastrojejunostomy tube exchange as above. Ernst Goodman Jr., MD on January 02, 2018 at 17:28 Board Certified Radiologist. This report was verified electronically.
[2018-01-02] MEDS ORDERED: RESP: ALBUTEROL 2.5 MG/IPRATROPIUM 0.5 MG NEB (PRN) ONE (18:30)
--- NOTE | 2018-01-02 23:13 | HHI.PR ---
Subjective Remarks Follow-up for pneumonia, bacteremia, history of anoxic brain injury. Patient is aphasic. Does not respond to any verbal or physical stimuli. Afebrile. Objective Vitals Vital Signs Date Time Temp Pulse Resp B/P (MAP) Pulse Ox O2 Delivery O2 Flow Rate FiO2 01/02/18 16:07 99.0 56 22 120/56 (77) 99 01/02/18 16:03 100 T-piece 6.00 28 01/02/18 12:17 100 T-piece 5.00 28 01/02/18 12:07 98.8 58 22 124/60 (81) 99 01/02/18 08:07 98.6 57 22 126/59 (81) 99 01/02/18 08:00 78 01/02/18 08:00 97 T-Piece 5.00 28 01/02/18 04:00 T-Piece 5.00 28 01/02/18 04:00 98.5 71 20 104/66 (79) 100 01/02/18 03:45 75 01/02/18 00:42 99.3 73 18 112/74 (87) 98 01/02/18 00:00 T-Piece 5.00 28 01/02/18 00:00 81 I/O 01/02/18 01/02/18 01/02/18 01/03/18 01/03/18 01/03/18 07:00 15:00 23:00 07:00 15:00 23:00 Intake Total 752 ml 0 ml Output Total 550 ml Balance 202 ml 0 ml Intake Oral 0 ml IV Total 752 ml Output Urine Total 550 ml # Voids 4 # Bowel Movements 0 0 Result Diagram: 01/02/18 1129 01/02/18 1129 Imaging Last Impressions Tube Change 01/02/18 0000 Signed Impressions: Service Date/Time: Tuesday, January 02, 2018 15:51 - CONCLUSION: Uncomplicated gastrojejunostomy tube exchange as above. Ernst Goodman Jr., MD Chest X-Ray 01/01/18 1117 Signed Impressions: Service Date/Time: Monday, January 01, 2018 11:45 - CONCLUSION: 1. Low lung volumes with hazy opacity in the left mid to lower lung zones concerning for developing airspace disease. Benigno Pimentel MD A/P Problem List: (1) Bacteremia ICD Code: R78.81 - Bacteremia (2) PNA (pneumonia) ICD Code: J18.9 - Pneumonia, unspecified organism Status: Acute Assessment and Plan 32-year-old -[place]ian male with history of anoxic brain injury with aphasia, seizure disorder, with chronic trach and PEG tube was sent from [place] due to change in chronic condition with increase heart rate, increased secretions, respiratory rate. CXR shows possible pneumonia. -Probable pneumonia -Chronic Trach -Bacteremia - possibly contamination. Will follow blood cx. - Hx of MDRO - ID is following. Currently on Vancomycin, Zosyn and Azithromycin. - DuoNeb. - Seizure disorder -Anoxic brain injury -Continue Keppra 1000mg Q12hrs, Dilantin 200mg Q12hrs. -Hx of DVT - continue Apixaban 5mg BID. Full code. Apixaban. Problem Qualifiers (1) PNA (pneumonia): Qualified Codes: J18.1 - Lobar pneumonia, unspecified organism Lakshmi Perez DO Jan 02, 2018 23:13
[2018-01-03] VITALS (10 sets, daily range): BP systolic 110–126; BP diastolic 54–78; PULSE 47–77; RESP 18–20; TEMP 98.2–98.5; O2SAT 99–100
[2018-01-03] MEDS: RESP: ALBUTEROL 2.5 MG/IPRATROPIUM 0.5 MG NEB (SCH) NEB ×6 (00:46→20:19)
[2018-01-03] MEDS: PIPERACIL-TAZO 4.5 GM PREMIX 100 ML IV SCH ×5 (03:51→23:49)
[2018-01-03] MEDS: HYOSCYAMINE 0.125 MG TAB G-TUBE SCH ×6 (03:51→23:48)
[2018-01-03] MEDS: VANCOMYCIN INJ 1,000 MG in SODIUM CHLOR 0.9% 250 ML INJ 250 ML IV SCH ×3 (04:38→23:48)
[2018-01-03] MEDS: SODIUM CHLOR 0.9% 1000 ML INJ 1,000 ML IV SCH ×3 (06:16→23:48)
[2018-01-03] MEDS: INSULIN ASPART SUPPLEMENTAL SCALE SQ SCH ×4 (08:00→21:00)
[2018-01-03] MEDS: MULTIVITAMIN TAB G-TUBE SCH (08:03)
[2018-01-03] MEDS: BACLOFEN 20 MG TAB G-TUBE SCH ×3 (08:03→18:25)
[2018-01-03] MEDS: levETIRAcetam 500 MG/5 ML UDC G-TUBE SCH ×2 (08:03→21:44)
[2018-01-03] MEDS: PHENYTOIN SUSP 100 MG/4 ML CUP PO SCH ×2 (08:03→21:43)
[2018-01-03] MEDS: APIXABAN 5 MG TABLET G-TUBE SCH ×2 (08:03→21:44)
[2018-01-03] MEDS: LORazepam 0.5 MG TAB PO SCH (08:03)
[2018-01-03] MEDS: FAMOTIDINE 20 MG TAB G-TUBE SCH ×2 (08:03→21:43)
[2018-01-03] MEDS: POTASSIUM CHLORIDE 25 MEQ EFFERVESCENT TAB NG SCH ×2 (08:04→21:44)
[2018-01-03] MEDS: SODIUM CHLORIDE 0.9% FLUSH 10 ML FLUSH IV FLUSH SCH ×2 (08:04→21:00)
[2018-01-03] MEDS: METOPROLOL TARTRATE 25 MG TAB PO SCH ×2 (09:00→21:00)
[2018-01-03] MEDS: LORATADINE 10 MG TAB G-TUBE SCH (12:50)
--- NOTE | 2018-01-03 14:58 | HHI.PR ---
Subjective Remarks Follow-up for pneumonia, bacteremia, history of anoxic brain injury. Aphasic. Afebrile. no response to verbal or physical stimuli. Objective Vitals Vital Signs Date Time Temp Pulse Resp B/P (MAP) Pulse Ox O2 Delivery O2 Flow Rate FiO2 01/03/18 12:00 98.2 67 20 126/55 (78) 99 01/03/18 09:20 99 T-piece 5.00 28 01/03/18 08:00 98.4 57 20 119/78 (92) 100 01/03/18 04:00 T-Piece 6.00 28 01/03/18 04:00 98.5 65 19 125/71 (89) 100 01/03/18 04:00 47 01/03/18 00:54 99 T-piece 6.00 28 01/03/18 00:00 98.2 77 18 115/58 (77) 100 01/03/18 00:00 54 01/03/18 00:00 T-Piece 6.00 28 01/02/18 20:00 T-Piece 6.00 28 01/02/18 20:00 59 01/02/18 20:00 97.4 55 18 120/57 (78) 94 01/02/18 16:07 99.0 56 22 120/56 (77) 99 01/02/18 16:03 100 T-piece 6.00 28 I/O 01/02/18 01/02/18 01/02/18 01/03/18 01/03/18 01/03/18 07:00 15:00 23:00 07:00 15:00 23:00 Intake Total 752 ml 100 ml 1675 ml Output Total 550 ml 400 ml Balance 202 ml 100 ml 1275 ml Intake Oral 0 ml IV Total 752 ml 100 ml 1350 ml Tube Feeding 225 ml Other 100 ml Output Urine Total 550 ml 400 ml # Voids 4 # Bowel Movements 0 0 2 Result Diagram: 01/02/18 1129 01/02/18 1129 Imaging Last Impressions Tube Change 01/02/18 0000 Signed Impressions: Service Date/Time: Tuesday, January 02, 2018 15:51 - CONCLUSION: Uncomplicated gastrojejunostomy tube exchange as above. Ernst Goodman Jr., MD Chest X-Ray 01/01/18 1117 Signed Impressions: Service Date/Time: Monday, January 01, 2018 11:45 - CONCLUSION: 1. Low lung volumes with hazy opacity in the left mid to lower lung zones concerning for developing airspace disease. Benigno Pimentel MD Objective Remarks GENERAL: Unresponsive, aphasic. NAD. SKIN: Warm and dry. HEAD: Normocephalic. EYES: No scleral icterus. No injection or drainage. NECK: Supple, trachea midline. No JVD or lymphadenopathy. CARDIOVASCULAR: Regular rate and rhythm without murmurs, gallops, or rubs. RESPIRATORY: Breath sounds equal bilaterally. No accessory muscle use. GASTROINTESTINAL: Abdomen soft, non-tender, nondistended. MUSCULOSKELETAL: No cyanosis, or edema. Hands contracted. BACK: Nontender without obvious deformity. No CVA tenderness. A/P Problem List: (1) Bacteremia ICD Code: R78.81 - Bacteremia (2) PNA (pneumonia) ICD Code: J18.9 - Pneumonia, unspecified organism Status: Acute Assessment and Plan 32-year-old -[place] male with history of anoxic brain injury with aphasia, seizure disorder, with chronic trach and PEG tube was sent from [place] due to change in chronic condition with increase heart rate, increased secretions, respiratory rate. CXR shows possible pneumonia. -Probable pneumonia -Chronic Trach -Bacteremia - possibly contamination. Will follow blood cx. - Hx of MDRO - ID is following. Currently on Vancomycin, Zosyn and Azithromycin. - DuoNeb. - Will repeat Blood cx. - Seizure disorder -Anoxic brain injury -Continue Keppra 1000mg Q12hrs, Dilantin 200mg Q12hrs. -Hx of DVT - continue Apixaban 5mg BID. Full code. Apixaban. Problem Qualifiers (1) PNA (pneumonia): Qualified Codes: J18.1 - Lobar pneumonia, unspecified organism Lakshmi Perez DO Jan 03, 2018 14:58
[2018-01-03] MEDS: AZITHROMYCIN INJ 500 MG in SODIUM CHLOR 0.9% 250 ML INJ 250 ML IV SCH ×2 (15:00→18:25)
[2018-01-04] VITALS (10 sets, daily range): BP systolic 106–147; BP diastolic 60–77; PULSE 53–93; RESP 18–20; TEMP 97.2–98.7; O2SAT 98–100
[2018-01-04] MEDS: RESP: ALBUTEROL 2.5 MG/IPRATROPIUM 0.5 MG NEB (SCH) NEB ×6 (00:17→21:35)
[2018-01-04] MEDS: HYOSCYAMINE 0.125 MG TAB G-TUBE SCH ×5 (04:00→20:32)
[2018-01-04] MEDS: INSULIN ASPART SUPPLEMENTAL SCALE SQ SCH ×4 (07:51→20:31)
[2018-01-04] MEDS: PIPERACIL-TAZO 4.5 GM PREMIX 100 ML IV SCH ×3 (09:00→21:17)
[2018-01-04] MEDS: APIXABAN 5 MG TABLET G-TUBE SCH ×2 (09:00→21:17)
[2018-01-04] MEDS: levETIRAcetam 500 MG/5 ML UDC G-TUBE SCH ×2 (09:47→20:32)
[2018-01-04] MEDS: PHENYTOIN SUSP 100 MG/4 ML CUP PO SCH ×2 (09:48→20:32)
[2018-01-04] MEDS: SODIUM CHLORIDE 0.9% FLUSH 10 ML FLUSH IV FLUSH SCH ×2 (09:49→20:33)
[2018-01-04] MEDS: POTASSIUM CHLORIDE 25 MEQ EFFERVESCENT TAB NG SCH ×2 (09:49→20:32)
[2018-01-04] MEDS: BACLOFEN 20 MG TAB G-TUBE SCH ×3 (09:50→18:53)
[2018-01-04] MEDS: LORATADINE 10 MG TAB G-TUBE SCH (09:50)
[2018-01-04] MEDS: METOPROLOL TARTRATE 25 MG TAB PO SCH ×2 (09:50→20:32)
[2018-01-04] MEDS: FAMOTIDINE 20 MG TAB G-TUBE SCH ×2 (09:50→20:32)
[2018-01-04] MEDS: MULTIVITAMIN TAB G-TUBE SCH (09:50)
[2018-01-04] MEDS: LORazepam 0.5 MG TAB PO SCH (09:50)
[2018-01-04] MEDS: SODIUM CHLOR 0.9% 1000 ML INJ 1,000 ML IV SCH ×2 (13:48→21:13)
--- NOTE | 2018-01-04 14:43 | PQ ---
Physician Query Response Document PATIENT: JUANJOSE DURHAM : 1985 ADMIT DATE: 01/01/2018 2:05 PM DISCH DATE: RESPONDING PROVIDER #: [email or web address] QUERY TEXT: Clinical Significance Functional quadriplegia in the setting of Chronic bedridden and trached patient managed with total ca re. Other explanation of clinical findings. Unable to determine (no explanation for clinical findings). The patient's Clinical Indicators include: The medical record reflects the following clinical findings, treatment, and risk factors. * Clinical Indicators:Flaccid extremities w/ contracted upper hands. Bilateral foot drop. Atrophied a nd contracted. * Risk Factors: Bedridden, trach, PEG * Treatment Total care Please clarify and document your clinical opinion in the progress notes and discharge summary includi ng the definitive and/or presumptive diagnosis (suspected or probable), related to the above clinical findings. Please include clinical findings supporting your diagnosis. Thank you, Glo Barnes CDS: Contact Number: CDS/APRIL ext. [phone] Query created by: Glo Barnes on 01/04/2018 11:20 AM RESPONSE TEXT: Functional quadriplegia, chronic due to anoxic brain injury. Electronically signed by: Javier Perez DO 01/04/2018 2:39 PM
[2018-01-04] MEDS: AZITHROMYCIN INJ 500 MG in SODIUM CHLOR 0.9% 250 ML INJ 250 ML IV SCH (15:00)
[2018-01-04] MEDS: VANCOMYCIN INJ 1,000 MG in SODIUM CHLOR 0.9% 250 ML INJ 250 ML IV SCH (15:00)
--- NOTE | 2018-01-04 20:17 | HHI.PR ---
Addendum to Inpatient Note Additional Information seen today around 11 pm full note to follow Nannette Josue MD Jan 04, 2018 20:17
--- NOTE | 2018-01-04 20:23 | HHI.PR ---
Subjective Remarks Follow-up for pneumonia, bacteremia, history of anoxic brain injury. Aphasic, remains unresponsive. Afebrile. Objective Vitals Vital Signs Date Time Temp Pulse Resp B/P (MAP) Pulse Ox O2 Delivery O2 Flow Rate FiO2 01/04/18 20:00 98.3 82 18 121/77 (92) 100 01/04/18 16:00 98.0 54 20 106/61 (76) 100 01/04/18 14:44 98.7 93 20 147/67 (93) 100 01/04/18 12:00 97.2 60 18 139/71 (93) 100 01/04/18 08:52 98 T-piece 28 01/04/18 08:00 97.9 66 20 119/60 (79) 100 01/04/18 04:15 98.5 75 20 142/66 (91) 100 01/04/18 04:00 T-Piece 6.00 28 01/04/18 04:00 53 01/04/18 00:00 T-Piece 6.00 28 01/04/18 00:00 70 01/03/18 23:47 98.3 59 20 110/59 (76) 100 I/O 01/03/18 01/03/18 01/03/18 01/04/18 01/04/18 01/04/18 07:00 15:00 23:00 07:00 15:00 23:00 Intake Total 1675 ml 760 ml 0 ml Output Total 400 ml 400 ml Balance 1275 ml 360 ml 0 ml Intake Oral 0 ml IV Total 1350 ml Tube Feeding 225 ml 660 ml Other 100 ml 100 ml Output Urine Total 400 ml 400 ml # Voids 4 4 1 # Bowel Movements 2 2 3 1 Result Diagram: 01/02/18 1129 01/02/18 1129 Objective Remarks GENERAL: Unresponsive, aphasic. NAD. SKIN: Warm and dry. HEAD: Normocephalic. EYES: No scleral icterus. No injection or drainage. NECK: Supple, trachea midline. No JVD or lymphadenopathy. CARDIOVASCULAR: Regular rate and rhythm without murmurs, gallops, or rubs. RESPIRATORY: Breath sounds equal bilaterally. No accessory muscle use. GASTROINTESTINAL: Abdomen soft, non-tender, nondistended. MUSCULOSKELETAL: No cyanosis, or edema. Hands contracted. BACK: Nontender without obvious deformity. No CVA tenderness. A/P Problem List: (1) Bacteremia ICD Code: R78.81 - Bacteremia (2) PNA (pneumonia) ICD Code: J18.9 - Pneumonia, unspecified organism Status: Acute Assessment and Plan 32-year-old -[place]ian male with history of anoxic brain injury with aphasia, seizure disorder, with chronic trach and PEG tube was sent from [place] due to change in chronic condition with increase heart rate, increased secretions, respiratory rate. CXR shows possible pneumonia. -Probable pneumonia -Chronic Trach -Bacteremia - possibly contamination. Will follow blood cx. - Hx of MDRO - ID is following. Currently on Vancomycin, Zosyn and Azithromycin. - DuoNeb. - Blood cx repeated. - Seizure disorder -Anoxic brain injury -Continue Keppra 1000mg Q12hrs, Dilantin 200mg Q12hrs. -Nutrition - Will increase tube feed to goal. Discussed with RN. -Hx of DVT - continue Apixaban 5mg BID. Full code. Apixaban. Problem Qualifiers (1) PNA (pneumonia): Qualified Codes: J18.1 - Lobar pneumonia, unspecified organism Lakshmi Perez DO Jan 04, 2018 20:23
--- NOTE | 2018-01-04 23:39 | HHI.IDPN ---
Subjective Subjective Remarks Pt was seen ealier today this is a delayed entry pt is afebrile remains on 28 % FiO2 blood clx positive for coag negative staph in multiple bottles Sputum clx with multiple MDRO gram negative organisms Antibiotics azithro zosyn vancomycin Allergies: Coded Allergies: haloperidol (Unverified Adverse Reaction, Severe, Seizures, 12/17/17) *MDRO Multi-Drug Resistant Organism (Verified Adverse Reaction, Unknown, ) MRSA (sputum) - 04/25/16 & 05/23/16 MRSA PCR Screen POSITIVE - 04/25/2016 ESBL+E.Coli (blood-05/22/16) Objective . Vital Signs Date Time Temp Pulse Resp B/P (MAP) Pulse Ox O2 Delivery O2 Flow Rate FiO2 01/04/18 21:38 100 T-piece 28 01/04/18 20:00 98.3 82 18 121/77 (92) 100 01/04/18 16:00 98.0 54 20 106/61 (76) 100 01/04/18 16:00 T-Piece 6.00 01/04/18 14:44 98.7 93 20 147/67 (93) 100 01/04/18 12:00 97.2 60 18 139/71 (93) 100 01/04/18 12:00 T-Piece 6.00 01/04/18 08:52 98 T-piece 28 01/04/18 08:00 97.9 66 20 119/60 (79) 100 01/04/18 08:00 60 01/04/18 08:00 T-Piece 6.00 01/04/18 04:15 98.5 75 20 142/66 (91) 100 01/04/18 04:00 T-Piece 6.00 28 01/04/18 04:00 53 01/04/18 00:00 T-Piece 6.00 28 01/04/18 00:00 70 01/03/18 23:47 98.3 59 20 110/59 (76) 100 01/04/18 01/04/18 01/05/18 15:00 23:00 07:00 Intake Total 0 ml Balance 0 ml Intake Oral 0 ml # Voids 1 # Bowel Movements 1 . Microbiology Date/Time Source Procedure Growth Status 01/04/18 07:30 Blood Peripheral Aerobic Blood Culture Pending Received 01/04/18 07:30 Blood Peripheral Anaerobic Blood Culture Pending Received 01/04/18 07:20 Blood Peripheral Aerobic Blood Culture Pending Received 01/04/18 07:20 Blood Peripheral Anaerobic Blood Culture Pending Received Imaging Last Impressions Tube Change 01/02/18 0000 Signed Impressions: Service Date/Time: Tuesday, January 02, 2018 15:51 - CONCLUSION: Uncomplicated gastrojejunostomy tube exchange as above. Ernst Goodman Jr., MD Chest X-Ray 01/01/18 1117 Signed Impressions: Service Date/Time: Monday, January 01, 2018 11:45 - CONCLUSION: 1. Low lung volumes with hazy opacity in the left mid to lower lung zones concerning for developing airspace disease. Bneigno Pimentel MD Physical Exam CONSTITUTIONAL/GENERAL: This is an adequately nourished patient, in no apparent distress. TUBES/LINES/DRAINS: SKIN: No jaundice, rashes, or lesions. Skin temperature appropriate. Not diaphoretic. HEAD: Atraumatic. Normocephalic. EYES: Pupils equal and round and reactive. Extraocular motions intact. No scleral icterus. No injection or drainage. Fundi not examined. ENT: Hearing grossly normal. Nose without bleeding or purulent drainage. Throat without visible erythema, exudates, masses, or lesions. NECK: Trachea midline. Trach in place site [place] CARDIOVASCULAR: Regular rate and rhythm without murmurs, gallops, or rubs. No JVD. Peripheral pulses symmetric. RESPIRATORY/CHEST: Symmetric, unlabored respirations. Clear to auscultation. Breath sounds equal bilaterally. No wheezes, rales, or rhonchi. GASTROINTESTINAL: Abdomen soft, non-tender, nondistended. No hepato-splenomegaly , or palpable masses. No guarding. Bowel sounds present. PEG in place GENITOURINARY: Without palpable bladder distension. MUSCULOSKELETAL: Extremities without clubbing, cyanosis, or edema. No joint tenderness or effusion noted. No calf tenderness. No mottling or clubbing. LYMPHATICS: No palpable cervical or supraclavicular adenopathy. NEUROLOGICAL: Unresponsive, Eyes closedd contracted PSYCHIATRIC: unable to assess Assessment & Plan Remarks Assessment and Plan Assessment and Plan Anoxic encephalopathy\ PNA - clx is polimicobial - clinically responds to zosyn, some of m/o probably contaminants chronic trach Clinically improved on current abx H/o MDRO Coag -negatvie staph bacteremia ? clinical significance despite of recent h/o MDROs pt sems to improve on current abx choice and is stabel and afebrile, therefore will continue for now current abx monitor clx monitor clinically; will use Avicaz if fever, increase secretions or other s/o uncontrolled infx Nannette Josue MD Jan 04, 2018 23:39
[2018-01-05] VITALS (12 sets, daily range): BP systolic 98–143; BP diastolic 51–77; PULSE 43–143; RESP 18–20; TEMP 98.1–99.5; O2SAT 94–100
[2018-01-05] MEDS: RESP: ALBUTEROL 2.5 MG/IPRATROPIUM 0.5 MG NEB (SCH) NEB ×5 (00:08→15:19)
[2018-01-05] MEDS: HYOSCYAMINE 0.125 MG TAB G-TUBE SCH ×6 (00:54→22:13)
[2018-01-05] MEDS: PIPERACIL-TAZO 4.5 GM PREMIX 100 ML IV SCH ×4 (02:38→22:14)
[2018-01-05] MEDS: VANCOMYCIN INJ 1,000 MG in SODIUM CHLOR 0.9% 250 ML INJ 250 ML IV SCH (02:38)
[2018-01-05] MEDS: INSULIN ASPART SUPPLEMENTAL SCALE SQ SCH ×4 (08:00→21:00)
[2018-01-05] MEDS: levETIRAcetam 500 MG/5 ML UDC G-TUBE SCH ×2 (10:39→22:14)
[2018-01-05] MEDS: LORATADINE 10 MG TAB G-TUBE SCH (10:39)
[2018-01-05] MEDS: FAMOTIDINE 20 MG TAB G-TUBE SCH ×2 (10:39→22:13)
[2018-01-05] MEDS: BACLOFEN 20 MG TAB G-TUBE SCH ×3 (10:39→17:17)
[2018-01-05] MEDS: APIXABAN 5 MG TABLET G-TUBE SCH ×2 (10:39→22:13)
[2018-01-05] MEDS: MULTIVITAMIN TAB G-TUBE SCH (10:40)
[2018-01-05] MEDS: LORazepam 0.5 MG TAB PO SCH (10:40)
[2018-01-05] MEDS: POTASSIUM CHLORIDE 25 MEQ EFFERVESCENT TAB NG SCH ×2 (10:40→22:14)
[2018-01-05] MEDS: SODIUM CHLOR 0.9% 1000 ML INJ 1,000 ML IV SCH ×2 (10:40→19:00)
[2018-01-05] MEDS: PHENYTOIN SUSP 100 MG/4 ML CUP PO SCH ×2 (10:40→22:13)
[2018-01-05] MEDS: METOPROLOL TARTRATE 25 MG TAB PO SCH ×2 (10:41→21:00)
[2018-01-05] MEDS: SODIUM CHLORIDE 0.9% FLUSH 10 ML FLUSH IV FLUSH SCH ×2 (11:17→22:14)
[2018-01-05 13:51] LABS: AUTOMATED NEUTROPHIL # 2.2 TH/MM3 (1.8-7.7); BASOPHIL % 0.5 % (0.0-2.0); EOSINOPHIL # 0.1 TH/MM3 (0-0.4); HEMATOCRIT 40.5 % (39.0-51.0); HEMOGLOBIN 13.5 GM/DL (13.0-17.0); LYMPH % 33.5 % (9.0-44.0); LYMPHOCYTE # 1.5 TH/MM3 (1.0-4.8); MEAN CELL VOLUME 93.7 FL (80.0-100.0); MEAN CORPUSCULAR HEMOGLOBIN 31.2 PG (27.0-34.0); MEAN CORPUSCULAR HGB CONC 33.3 % (32.0-36.0); MEAN PLATELET VOLUME 9.3 FL (7.0-11.0); MONOCYTE # 0.6 TH/MM3 (0-0.9); PLATELET COUNT 186 TH/MM3 (150-450); RED BLOOD COUNT 4.32 MIL/MM3 (4.50-5.90); RED CELL DISTRIBUTION WIDTH 14.2 % (11.6-17.2); WHITE BLOOD COUNT 4.5 TH/MM3 (4.0-11.0)
[2018-01-05 14:08] LABS: BICARBONATE 22.9 MEQ/L (21.0-32.0); CALCIUM 8.5 MG/DL (8.5-10.1); CREATININE 0.8 MG/DL (0.60-1.30)
--- NOTE | 2018-01-05 15:36 | HHI.PR ---
Subjective Remarks Follow up bacteremia, pneumonia. Patient does not track or follow commands. Objective Vitals Vital Signs Date Time Temp Pulse Resp B/P (MAP) Pulse Ox O2 Delivery O2 Flow Rate FiO2 01/05/18 15:19 98 T-piece 6.00 28 01/05/18 12:04 98 T-piece 28 01/05/18 12:00 99.5 119 20 143/62 (89) 99 01/05/18 08:29 99 T-piece 28 01/05/18 08:00 98.6 84 20 115/57 (76) 94 01/05/18 04:25 98.4 57 18 106/56 (73) 100 01/04/18 21:38 100 T-piece 28 01/04/18 20:00 T-Piece 6.00 28 01/04/18 20:00 98.3 82 18 121/77 (92) 100 01/04/18 16:00 98.0 54 20 106/61 (76) 100 01/04/18 16:00 T-Piece 6.00 I/O 01/04/18 01/04/18 01/04/18 01/05/18 01/05/18 01/05/18 07:00 15:00 23:00 07:00 15:00 23:00 Intake Total 760 ml 0 ml Output Total 400 ml Balance 360 ml 0 ml Intake Oral 0 ml Tube Feeding 660 ml Other 100 ml Output Urine Total 400 ml # Voids 4 1 # Bowel Movements 3 1 Result Diagram: 01/05/18 1245 01/05/18 1245 Imaging Last Impressions Tube Change 01/02/18 0000 Signed Impressions: Service Date/Time: Tuesday, January 02, 2018 15:51 - CONCLUSION: Uncomplicated gastrojejunostomy tube exchange as above. Ernst Goodman Jr., MD Chest X-Ray 01/01/18 1117 Signed Impressions: Service Date/Time: Monday, January 01, 2018 11:45 - CONCLUSION: 1. Low lung volumes with hazy opacity in the left mid to lower lung zones concerning for developing airspace disease. Benigno Pimentel MD Objective Remarks General: No acute distress. Trach. Heart: Regular rate and rhythm. No murmur. Lungs: Coarse breath sounds bilaterally. Breathing is nonlabored. Abdomen: Soft, nontender, nondistended. Extremities: No lower extremity edema. Psych/neuro: Does not track or follow commands. Procedures None Urinary Catheter: No Vascular Central Line Catheter: No A/P Problem List: (1) Bacteremia ICD Code: R78.81 - Bacteremia (2) PNA (pneumonia) ICD Code: J18.9 - Pneumonia, unspecified organism Status: Acute Assessment and Plan 1. Pneumonia, bacteremia: Appreciate infectious disease recommendations. Continue antibiotics. Blood culture growing staph epidermidis. Sputum culture growing Proteus mirabilis, Klebsiella ESBL positive, Pseudomonas, Acinetobacter. 2. Chronic trach: Continue supplemental oxygen. Continue DuoNeb. 3. Seizure disorder, history of anoxic brain injury: Continue Keppra, Dilantin. 4. History of DVT: Continue apixaban. Problem Qualifiers (1) PNA (pneumonia): Qualified Codes: J18.1 - Lobar pneumonia, unspecified organism Jarrod Langston MD Jan 05, 2018 15:36
[2018-01-05] MEDS: AZITHROMYCIN INJ 500 MG in SODIUM CHLOR 0.9% 250 ML INJ 250 ML IV SCH (20:02)
[2018-01-06] VITALS (9 sets, daily range): BP systolic 102–145; BP diastolic 52–69; PULSE 48–77; RESP 19–20; TEMP 96.5–99.2; O2SAT 96–100
[2018-01-06] MEDS: HYOSCYAMINE 0.125 MG TAB G-TUBE SCH ×7 (00:20→23:25)
[2018-01-06] MEDS: SODIUM CHLOR 0.9% 1000 ML INJ 1,000 ML IV SCH ×2 (02:22→16:53)
[2018-01-06] MEDS: VANCOMYCIN INJ 1,000 MG in SODIUM CHLOR 0.9% 250 ML INJ 250 ML IV SCH ×2 (02:22→16:54)
[2018-01-06] MEDS: PIPERACIL-TAZO 4.5 GM PREMIX 100 ML IV SCH ×4 (03:46→21:28)
[2018-01-06] MEDS: INSULIN ASPART SUPPLEMENTAL SCALE SQ SCH ×4 (08:00→21:00)
[2018-01-06] MEDS: METOPROLOL TARTRATE 25 MG TAB PO SCH ×2 (09:00→21:00)
[2018-01-06] MEDS: SODIUM CHLORIDE 0.9% FLUSH 10 ML FLUSH IV FLUSH SCH ×2 (09:00→21:28)
[2018-01-06] MEDS: LORATADINE 10 MG TAB G-TUBE SCH (12:56)
[2018-01-06] MEDS: levETIRAcetam 500 MG/5 ML UDC G-TUBE SCH ×2 (12:57→21:27)
[2018-01-06] MEDS: MULTIVITAMIN TAB G-TUBE SCH (12:57)
[2018-01-06] MEDS: BACLOFEN 20 MG TAB G-TUBE SCH ×3 (12:57→17:37)
[2018-01-06] MEDS: FAMOTIDINE 20 MG TAB G-TUBE SCH ×2 (12:57→21:27)
[2018-01-06] MEDS: APIXABAN 5 MG TABLET G-TUBE SCH ×2 (12:57→21:27)
[2018-01-06] MEDS: POTASSIUM CHLORIDE 25 MEQ EFFERVESCENT TAB NG SCH ×2 (12:58→21:28)
[2018-01-06] MEDS: LORazepam 0.5 MG TAB PO SCH (12:58)
[2018-01-06] MEDS: PHENYTOIN SUSP 100 MG/4 ML CUP PO SCH ×2 (12:59→21:27)
--- NOTE | 2018-01-06 15:45 | HHI.PR ---
Subjective Remarks Follow up bacteremia, pneumonia. Patient remains afebrile. No events reported by nursing. Respiratory status appears stable. Objective Vitals Vital Signs Date Time Temp Pulse Resp B/P (MAP) Pulse Ox O2 Delivery O2 Flow Rate FiO2 01/06/18 15:24 97 T-piece 28 01/06/18 12:10 98.2 58 20 120/68 (85) 97 01/06/18 12:10 98.2 57 20 121/69 (86) 97 01/06/18 05:52 98.3 48 19 102/52 (69) 100 01/06/18 04:39 96 T-piece 6.00 28 01/06/18 03:53 50 01/06/18 00:14 98.2 65 19 124/57 (79) 98 01/06/18 00:00 T-Piece 6.00 28 01/05/18 23:46 46 01/05/18 20:52 98.1 48 19 98/51 (67) 98 01/05/18 20:00 43 01/05/18 20:00 T-Piece 6.00 28 Humidified 01/05/18 16:00 98.4 47 20 123/77 (92) 100 I/O 01/05/18 01/05/18 01/05/18 01/06/18 01/06/18 01/06/18 06:59 14:59 22:59 06:59 14:59 22:59 Intake Total 0 ml Output Total 1950 ml Balance 0 ml -1950 ml Intake Oral 0 ml Output Urine Total 1950 ml # Voids 1 # Bowel Movements 1 Result Diagram: 01/05/18 1245 01/05/18 1245 Imaging Last Impressions Tube Change 01/02/18 0000 Signed Impressions: Service Date/Time: Tuesday, January 02, 2018 15:51 - CONCLUSION: Uncomplicated gastrojejunostomy tube exchange as above. Ernst Goodman Jr., MD Chest X-Ray 01/01/18 1117 Signed Impressions: Service Date/Time: Monday, January 01, 2018 11:45 - CONCLUSION: 1. Low lung volumes with hazy opacity in the left mid to lower lung zones concerning for developing airspace disease. Benigno Pimentel MD Objective Remarks General: No acute distress. Trach. Heart: Regular rate and rhythm. No murmur. Lungs: Coarse breath sounds bilaterally. Breathing is nonlabored. Abdomen: Soft, nontender, nondistended. Extremities: No lower extremity edema. Psych/neuro: Does not track or follow commands. Procedures None Urinary Catheter: No Vascular Central Line Catheter: No A/P Problem List: (1) Bacteremia ICD Code: R78.81 - Bacteremia (2) PNA (pneumonia) ICD Code: J18.9 - Pneumonia, unspecified organism Status: Acute Assessment and Plan 1. Pneumonia, bacteremia: Appreciate infectious disease recommendations. Blood culture growing staph epidermidis. Sputum culture growing Proteus mirabilis, Klebsiella ESBL positive, Pseudomonas, Acinetobacter. Discussed with Dr. Josue. Continue current antibiotics (Azithromycin, Zosyn, Vancomycin) per infectious disease. 2. Chronic trach: Continue supplemental oxygen. Continue DuoNeb. 3. Seizure disorder, history of anoxic brain injury: Continue Keppra, Dilantin. 4. History of DVT: Continue apixaban. Problem Qualifiers (1) PNA (pneumonia): Qualified Codes: J18.1 - Lobar pneumonia, unspecified organism Jarrod Langston MD Jan 06, 2018 15:45
[2018-01-06] MEDS: AZITHROMYCIN INJ 500 MG in SODIUM CHLOR 0.9% 250 ML INJ 250 ML IV SCH (16:54)
[2018-01-07] VITALS (10 sets, daily range): BP systolic 104–129; BP diastolic 53–70; PULSE 44–77; RESP 18–20; TEMP 97.9–99.7; O2SAT 95–100
[2018-01-07] MEDS: SODIUM CHLOR 0.9% 1000 ML INJ 1,000 ML IV SCH ×3 (01:00→21:00)
[2018-01-07] MEDS: VANCOMYCIN INJ 1,000 MG in SODIUM CHLOR 0.9% 250 ML INJ 250 ML IV SCH ×2 (02:50→17:11)
[2018-01-07] MEDS: HYOSCYAMINE 0.125 MG TAB G-TUBE SCH ×5 (03:10→23:59)
[2018-01-07] MEDS: PIPERACIL-TAZO 4.5 GM PREMIX 100 ML IV SCH ×3 (04:50→16:28)
[2018-01-07] MEDS: INSULIN ASPART SUPPLEMENTAL SCALE SQ SCH ×4 (08:00→21:00)
[2018-01-07] MEDS: METOPROLOL TARTRATE 25 MG TAB PO SCH (09:00)
[2018-01-07] MEDS: APIXABAN 5 MG TABLET G-TUBE SCH (10:47)
[2018-01-07] MEDS: levETIRAcetam 500 MG/5 ML UDC G-TUBE SCH ×2 (10:47→23:59)
[2018-01-07] MEDS: POTASSIUM CHLORIDE 25 MEQ EFFERVESCENT TAB NG SCH (10:47)
[2018-01-07] MEDS: PHENYTOIN SUSP 100 MG/4 ML CUP PO SCH (10:47)
[2018-01-07] MEDS: MULTIVITAMIN TAB G-TUBE SCH (10:48)
[2018-01-07] MEDS: BACLOFEN 20 MG TAB G-TUBE SCH ×3 (10:48→17:20)
[2018-01-07] MEDS: LORazepam 0.5 MG TAB PO SCH (10:48)
[2018-01-07] MEDS: SODIUM CHLORIDE 0.9% FLUSH 10 ML FLUSH IV FLUSH SCH (10:48)
[2018-01-07] MEDS: FAMOTIDINE 20 MG TAB G-TUBE SCH (10:48)
[2018-01-07] MEDS: LORATADINE 10 MG TAB G-TUBE SCH (10:48)
--- NOTE | 2018-01-07 11:38 | HHI.PR ---
Subjective Remarks Emergency response team called to room. Patient's trach tube became dislodged. It was completely out of place. Respiratory therapy arrived at bedside at the same time I arrived. Trach was replaced. Patient's oxygen saturation remained 97 -98%. Objective Vitals Vital Signs Date Time Temp Pulse Resp B/P (MAP) Pulse Ox O2 Delivery O2 Flow Rate FiO2 01/07/18 08:55 97 T-piece 6.00 28 01/07/18 08:07 99.7 59 20 129/65 (86) 97 01/07/18 04:00 98.9 56 20 104/55 (71) 95 01/07/18 04:00 62 01/07/18 00:00 52 01/07/18 00:00 97.9 53 20 118/53 (74) 97 01/06/18 20:00 96.5 55 20 132/63 (86) 100 01/06/18 20:00 T-Piece 6.00 28 01/06/18 20:00 57 01/06/18 18:42 77 01/06/18 16:35 97 T-Piece 6.00 28 01/06/18 16:10 99.2 64 20 145/63 (90) 99 01/06/18 15:24 97 T-piece 28 01/06/18 12:10 98.2 58 20 120/68 (85) 97 01/06/18 12:10 98.2 57 20 121/69 (86) 97 I/O 01/06/18 01/06/18 01/06/18 01/07/18 01/07/18 01/07/18 07:00 15:00 23:00 07:00 15:00 23:00 Intake Total 1700 ml 250 ml Output Total 1950 ml 1000 ml 1100 ml Balance -1950 ml 700 ml -850 ml Intake Oral 0 ml 0 ml IV Total 1700 ml 250 ml Output Urine Total 1950 ml 1000 ml 1100 ml # Bowel Movements 3 2 Result Diagram: 01/05/18 1245 01/05/18 1245 Imaging Last Impressions Tube Change 01/02/18 0000 Signed Impressions: Service Date/Time: Tuesday, January 02, 2018 15:51 - CONCLUSION: Uncomplicated gastrojejunostomy tube exchange as above. Ernst Goodman Jr., MD Chest X-Ray 01/01/18 1117 Signed Impressions: Service Date/Time: Monday, January 01, 2018 11:45 - CONCLUSION: 1. Low lung volumes with hazy opacity in the left mid to lower lung zones concerning for developing airspace disease. Benigno Pimentel MD Objective Remarks General: No acute distress. Trach. Heart: Regular rate and rhythm. No murmur. Lungs: Coarse breath sounds bilaterally. Breathing is nonlabored. Abdomen: Soft, nontender, nondistended. Extremities: No lower extremity edema. Psych/neuro: Does not track or follow commands. Procedures None Urinary Catheter: No Vascular Central Line Catheter: No A/P Problem List: (1) Bacteremia ICD Code: R78.81 - Bacteremia (2) PNA (pneumonia) ICD Code: J18.9 - Pneumonia, unspecified organism Status: Acute Assessment and Plan 1. Pneumonia, bacteremia: Appreciate infectious disease recommendations. Blood culture growing staph epidermidis. Sputum culture growing Proteus mirabilis, Klebsiella ESBL positive, Pseudomonas, Acinetobacter. Continue current antibiotics (Azithromycin, Zosyn, Vancomycin) per infectious disease. 2. Chronic trach: Continue supplemental oxygen. Continue DuoNeb. Trach became dislodged today and was replaced by respiratory therapy. Consult pulmonology for trach management. 3. Seizure disorder, history of anoxic brain injury: Continue Keppra, Dilantin. 4. History of DVT: Continue apixaban. Problem Qualifiers (1) PNA (pneumonia): Qualified Codes: J18.1 - Lobar pneumonia, unspecified organism Jarrod Langston MD Jan 07, 2018 11:38
[2018-01-07] MEDS: AZITHROMYCIN INJ 500 MG in SODIUM CHLOR 0.9% 250 ML INJ 250 ML IV SCH (13:40)
--- NOTE | 2018-01-07 13:51 | RADRPT ---
EXAM DATE/TIME: 01/07/2018 13:18 [facility] COMPARISON: CHEST SINGLE AP, January 01, 2018, 11:45. INDICATIONS : Shortness of breath MEDICAL HISTORY : Myocardial infarction. Hypertension Anoxic brain injury SURGICAL HISTORY : tracheostomy, PEG tube ENCOUNTER: Subsequent ACUITY: 1 week PAIN SCORE: Non-responsive. LOCATION: Bilateral chest FINDINGS: A single view of the chest demonstrates the lungs to be symmetrically aerated without evidence of mas s, infiltrate or effusion. The tracheostomy tube remains in place. The heart size is stable.. Osseou s structures are intact and stable. No significant change compared to the prior study.. CONCLUSION: No acute disease. No significant change has occurred. Rg Dumont MD on January 07, 2018 at 13:49 Board Certified Radiologist. This report was verified electronically.
[2018-01-07] MEDS ORDERED: Vancomycin Consult Pharmacy 1 EA OTHER SCH (17:15)
--- NOTE | 2018-01-07 17:33 | HHI.IDPN ---
Subjective Subjective Remarks doing OK afebrile, but temp 99.7 on one occasion blood clx wioht Staph epi in multiple bottles Multiple (four) GNBs in trach sectretions Antibiotics azithro zosyn vancomycin Allergies: Coded Allergies: haloperidol (Unverified Adverse Reaction, Severe, Seizures, 12/17/17) *MDRO Multi-Drug Resistant Organism (Verified Adverse Reaction, Unknown, ) MRSA (sputum) - 04/25/16 & 05/23/16 MRSA PCR Screen POSITIVE - 04/25/2016 ESBL+E.Coli (blood-05/22/16) Objective . Vital Signs Date Time Temp Pulse Resp B/P (MAP) Pulse Ox O2 Delivery O2 Flow Rate FiO2 01/07/18 12:37 98.7 77 123/70 (87) 100 01/07/18 12:07 99.4 60 20 129/65 (86) 97 01/07/18 08:55 97 T-piece 6.00 28 01/07/18 08:07 99.7 59 20 129/65 (86) 97 01/07/18 04:00 98.9 56 20 104/55 (71) 95 01/07/18 04:00 62 01/07/18 00:00 52 01/07/18 00:00 97.9 53 20 118/53 (74) 97 01/06/18 20:00 96.5 55 20 132/63 (86) 100 01/06/18 20:00 T-Piece 6.00 28 01/06/18 20:00 57 01/06/18 18:42 77 Imaging Last Impressions Chest X-Ray 01/07/18 0000 Signed Impressions: Service Date/Time: December 13:18 - CONCLUSION: No acute disease. No significant change has occurred. Rg Dumont MD Tube Change 01/02/18 0000 Signed Impressions: Service Date/Time: Tuesday, January 02, 2018 15:51 - CONCLUSION: Uncomplicated gastrojejunostomy tube exchange as above. Ernst Goodman Jr., MD Physical Exam CONSTITUTIONAL/GENERAL: This is an adequately nourished patient, in no apparent distress. TUBES/LINES/DRAINS: SKIN: No jaundice, rashes, or lesions. Skin temperature appropriate. Not diaphoretic. HEAD: Atraumatic. Normocephalic. EYES: Pupils equal and round and reactive. Extraocular motions intact. No scleral icterus. No injection or drainage. Fundi not examined. ENT: Hearing grossly normal. Nose without bleeding or purulent drainage. Throat without visible erythema, exudates, masses, or lesions. NECK: Trachea midline. Trach in place site [place], large amount of secretions CARDIOVASCULAR: Regular rate and rhythm without murmurs, gallops, or rubs. No JVD. Peripheral pulses symmetric. RESPIRATORY/CHEST: Symmetric, unlabored respirations. Clear to auscultation. Breath sounds equal bilaterally. No wheezes, rales, or rhonchi. GASTROINTESTINAL: Abdomen soft, non-tender, nondistended. No hepato-splenomegaly , or palpable masses. No guarding. Bowel sounds present. PEG in place GENITOURINARY: Without palpable bladder distension. MUSCULOSKELETAL: Extremities without clubbing, cyanosis, or edema. No joint tenderness or effusion noted. No calf tenderness. No mottling or clubbing. LYMPHATICS: No palpable cervical or supraclavicular adenopathy. NEUROLOGICAL: Unresponsive, Eyes closedd contracted PSYCHIATRIC: unable to assess Assessment & Plan Remarks Assessment and Plan Assessment and Plan Anoxic encephalopathy\ [place] PNA, likely tracheobronchitis - clx is polimicobial - clinically responds to zosyn, some of m/o probably contaminants - CXR negative chronic trach Clinically improved on current abx H/o MDRO staph epi bacteremia, multiple + cultures complete zosyn, azithro despite of recent h/o MDROs pt sems to improve on current abx choice and is stabel and afebrile, therefore will continue for now current abx monitor clx monitor clinically; will use Avicaz if fever, increase secretions or other s/o uncontrolled infx cont vancomycin 7-10 days w/u for endocarditis in case of sustained Staph epi bacteremia monitor temps, clinical status Nannette Josue MD Jan 07, 2018 17:33
[2018-01-08] VITALS (14 sets, daily range): BP systolic 109–148; BP diastolic 55–68; PULSE 45–83; RESP 16–20; TEMP 97.8–99.9; O2SAT 94–100
[2018-01-08] MEDS: APIXABAN 5 MG TABLET G-TUBE SCH ×3 (00:01→21:54)
[2018-01-08] MEDS: PHENYTOIN SUSP 100 MG/4 ML CUP PO SCH ×3 (00:01→21:54)
[2018-01-08] MEDS: SODIUM CHLORIDE 0.9% FLUSH 10 ML FLUSH IV FLUSH SCH ×3 (00:02→21:55)
[2018-01-08] MEDS: METOPROLOL TARTRATE 25 MG TAB PO SCH ×3 (00:02→21:00)
[2018-01-08] MEDS: SODIUM CHLOR 0.9% 1000 ML INJ 1,000 ML IV SCH ×3 (01:00→21:55)
[2018-01-08] MEDS: HYOSCYAMINE 0.125 MG TAB G-TUBE SCH ×6 (04:53→20:00)
[2018-01-08] MEDS: INSULIN ASPART SUPPLEMENTAL SCALE SQ SCH ×4 (08:00→21:00)
[2018-01-08] MEDS: FAMOTIDINE 20 MG TAB G-TUBE SCH ×3 (09:49→21:54)
[2018-01-08] MEDS: LORATADINE 10 MG TAB G-TUBE SCH (09:49)
[2018-01-08] MEDS: LORazepam 0.5 MG TAB PO SCH (09:49)
[2018-01-08] MEDS: MULTIVITAMIN TAB G-TUBE SCH (09:50)
[2018-01-08] MEDS: BACLOFEN 20 MG TAB G-TUBE SCH ×3 (09:50→18:01)
[2018-01-08] MEDS: levETIRAcetam 500 MG/5 ML UDC G-TUBE SCH ×2 (09:50→21:54)
[2018-01-08] MEDS: POTASSIUM CHLORIDE 25 MEQ EFFERVESCENT TAB NG SCH ×3 (09:50→21:55)
[2018-01-08] MEDS: VANCOMYCIN 1,000 MG/NS 250 ML IV SCH ×4 (11:50→21:54)
--- NOTE | 2018-01-08 15:08 | HHI.PR ---
Subjective Remarks Follow up bacteremia, pneumonia/tracheobronchitis. No events overnight per nursing. Has been stable since trach replaced yesterday. Objective Vitals Vital Signs Date Time Temp Pulse Resp B/P (MAP) Pulse Ox O2 Delivery O2 Flow Rate FiO2 01/08/18 11:32 98.9 83 18 120/57 (78) 98 01/08/18 09:21 99 T-piece 5.00 28 01/08/18 08:20 99.9 64 17 114/55 (74) 99 01/08/18 05:05 99.0 57 18 110/60 (77) 98 01/08/18 04:16 72 01/08/18 02:37 97 T-piece 5.00 28 01/08/18 00:34 46 01/08/18 00:30 98.5 45 18 109/61 (77) 98 01/07/18 21:00 Trach Collar 6.00 28 T-Piece 01/07/18 20:46 44 01/07/18 20:20 97.9 52 18 121/70 (87) 100 01/07/18 17:19 100 T-piece 6.00 28 01/07/18 16:07 99.1 60 20 98 I/O 01/07/18 01/07/18 01/07/18 01/08/18 01/08/18 01/08/18 07:00 15:00 23:00 07:00 15:00 23:00 Intake Total 250 ml 0 ml Output Total 1100 ml 1200 ml Balance -850 ml -1200 ml Intake Oral 0 ml 0 ml IV Total 250 ml Output Urine Total 1100 ml 1200 ml # Bowel Movements 2 1 Result Diagram: 01/05/18 1245 01/05/18 1245 Imaging Last Impressions Chest X-Ray 01/07/18 0000 Signed Impressions: Service Date/Time: December 13:18 - CONCLUSION: No acute disease. No significant change has occurred. Rg Dumont MD Tube Change 01/02/18 0000 Signed Impressions: Service Date/Time: Tuesday, January 02, 2018 15:51 - CONCLUSION: Uncomplicated gastrojejunostomy tube exchange as above. Ernst Goodman Jr., MD Objective Remarks General: No acute distress. Trach. Heart: Regular rate and rhythm. No murmur. Lungs: Coarse breath sounds bilaterally. Breathing is nonlabored. Abdomen: Soft, nontender, nondistended. Extremities: No lower extremity edema. Psych/neuro: Does not track or follow commands. Procedures None Urinary Catheter: No Vascular Central Line Catheter: No A/P Problem List: (1) Bacteremia ICD Code: R78.81 - Bacteremia (2) PNA (pneumonia) ICD Code: J18.9 - Pneumonia, unspecified organism Status: Acute Assessment and Plan 1. Bacteremia, possible pneumonia vs tracheobronchitis: Appreciate infectious disease recommendations. Blood culture growing staph epidermidis. Sputum culture growing Proteus mirabilis, Klebsiella ESBL positive, Pseudomonas, Acinetobacter. Continue current antibiotics (Azithromycin, Zosyn, Vancomycin) per infectious disease. 2. Chronic trach: Continue supplemental oxygen. Continue DuoNeb. Trach management per pulmonology. 3. Seizure disorder, history of anoxic brain injury: Continue Keppra, Dilantin. 4. History of DVT: Continue apixaban. Problem Qualifiers (1) PNA (pneumonia): Qualified Codes: J18.1 - Lobar pneumonia, unspecified organism Jarrod Langston MD Jan 08, 2018 15:08
--- NOTE | 2018-01-08 20:27 | HHI.PR ---
Subjective Remarks Not responsive. Stable on a T Collar 30 %. No Fever. Objective Vital Signs Date Time Temp Pulse Resp B/P (MAP) Pulse Ox O2 Delivery O2 Flow Rate FiO2 01/08/18 16:00 98.3 77 20 148/67 (94) 94 01/08/18 12:00 62 01/08/18 11:32 98.9 83 18 120/57 (78) 98 01/08/18 09:21 99 T-piece 5.00 28 01/08/18 08:20 99.9 64 17 114/55 (74) 99 01/08/18 08:00 64 01/08/18 08:00 Trach Collar 5.00 28 01/08/18 05:05 99.0 57 18 110/60 (77) 98 01/08/18 04:16 72 01/08/18 02:37 97 T-piece 5.00 28 01/08/18 00:34 46 01/08/18 00:30 98.5 45 18 109/61 (77) 98 01/07/18 21:00 Trach Collar 6.00 28 T-Piece 01/07/18 20:46 44 I/O 01/07/18 01/07/18 01/07/18 01/08/18 01/08/18 01/08/18 07:00 15:00 23:00 07:00 15:00 23:00 Intake Total 250 ml 0 ml Output Total 1100 ml 1200 ml 800 ml Balance -850 ml -1200 ml -800 ml Intake Oral 0 ml 0 ml IV Total 250 ml Output Urine Total 1100 ml 1200 ml 800 ml # Bowel Movements 2 1 2 Result Diagram: 01/05/18 1245 01/05/18 1245 Objective Remarks GENERAL: This is a well-nourished, well-developed patient, in no apparent distress.Neck:Trach tube in place. CARDIOVASCULAR: Regular rate and rhythm without murmurs, gallops, or rubs. RESPIRATORY: Diffuse expiratory wheezes, diminished breath sounds bilaterally. GASTROINTESTINAL: Abdomen soft, non-tender,nondistended. Normal active bowel sounds MUSCULOSKELETAL: Extremities without clubbing, cyanosis, but has Contractures. NEURO: Not responsive, and Vegetative state Assessment and Plan Assessment and Plan 1. Suspected severe sepsis on admission due to symptoms of tachycardia and tachypnea and increased secretions with possible tracheobronchitis and early healthcare associated pneumonia- 2. History of anoxic brain injury -supportive care with nutrition 3. History of history of Seizure disorder, await Dilantin level, resume Keppra 4. History of hypertension- hold Norvasc until further blood pressure trends evaluated due to suspected severe sepsis. 5. Hx of upper extremity DVT and VTE prophylaxis, Plan : 1. T Bar 28 %. 2. Trach suction and Lavage . 3. Cont antibiotics per ID 4. Chest Xray on Thursday 5, Duonebs q6h. Vamsi Sheth MD Jan 08, 2018 20:27
[2018-01-09] VITALS (12 sets, daily range): BP systolic 91–135; BP diastolic 47–68; PULSE 48–77; RESP 19–20; TEMP 98.1–99.2; O2SAT 84–100
[2018-01-09] MEDS: HYOSCYAMINE 0.125 MG TAB G-TUBE SCH ×6 (03:43→20:37)
[2018-01-09] MEDS: VANCOMYCIN 1,000 MG/NS 250 ML IV SCH ×6 (03:44→12:46)
[2018-01-09] MEDS: INSULIN ASPART SUPPLEMENTAL SCALE SQ SCH ×4 (08:00→20:36)
[2018-01-09] MEDS: METOPROLOL TARTRATE 25 MG TAB PO SCH ×2 (08:51→20:38)
[2018-01-09] MEDS: MULTIVITAMIN TAB G-TUBE SCH (09:00)
[2018-01-09] MEDS: levETIRAcetam 500 MG/5 ML UDC G-TUBE SCH ×2 (09:00→20:37)
[2018-01-09] MEDS: LORATADINE 10 MG TAB G-TUBE SCH (09:00)
[2018-01-09] MEDS: POTASSIUM CHLORIDE 25 MEQ EFFERVESCENT TAB NG SCH ×2 (09:00→20:38)
[2018-01-09] MEDS: BACLOFEN 20 MG TAB G-TUBE SCH ×3 (09:00→17:29)
[2018-01-09] MEDS: PHENYTOIN SUSP 100 MG/4 ML CUP PO SCH ×2 (09:00→20:37)
[2018-01-09] MEDS: FAMOTIDINE 20 MG TAB G-TUBE SCH ×2 (09:00→20:38)
[2018-01-09] MEDS: LORazepam 0.5 MG TAB PO SCH (09:00)
[2018-01-09] MEDS: SODIUM CHLORIDE 0.9% FLUSH 10 ML FLUSH IV FLUSH SCH ×2 (09:00→20:38)
[2018-01-09] MEDS: APIXABAN 5 MG TABLET G-TUBE SCH ×2 (09:01→20:38)
[2018-01-09] MEDS: SODIUM CHLOR 0.9% 1000 ML INJ 1,000 ML IV SCH ×2 (10:58→21:55)
[2018-01-09] MEDS ORDERED: PHARMACY ORDERED LAB ONE (11:45)
--- NOTE | 2018-01-09 15:50 | HHI.PR ---
Subjective Remarks Follow up tracheobronchitis/pneumonia. No events reported by nursing. Objective Vitals Vital Signs Date Time Temp Pulse Resp B/P (MAP) Pulse Ox O2 Delivery O2 Flow Rate FiO2 01/09/18 12:00 98.7 65 20 111/54 (73) 99 01/09/18 11:35 98 T-piece 28 01/09/18 09:00 Trach Collar 6.00 28 T-Piece 01/09/18 08:00 99.2 77 20 118/64 (82) 100 01/09/18 04:31 99 T-piece 6.00 28 01/09/18 04:00 64 01/09/18 04:00 98.3 55 20 132/60 (84) 84 01/09/18 00:00 57 01/08/18 23:45 97.8 68 18 134/68 (90) 99 01/08/18 23:12 95 T-piece 6.00 28 01/08/18 20:00 98.1 54 16 120/60 (80) 100 01/08/18 20:00 Trach Collar 6.00 28 T-Piece 01/08/18 20:00 53 01/08/18 16:00 98.3 77 20 148/67 (94) 94 I/O 01/08/18 01/08/18 01/08/18 01/09/18 01/09/18 01/09/18 07:00 15:00 23:00 07:00 15:00 23:00 Intake Total 0 ml 1250 ml 2278 ml 224 ml Output Total 1200 ml 800 ml 1075 ml Balance -1200 ml 450 ml 1203 ml 224 ml Intake Oral 0 ml IV Total 1250 ml 1026 ml 224 ml Tube Feeding 1012 ml Other 240 ml Output Urine Total 1200 ml 800 ml 1075 ml # Bowel Movements 1 2 Result Diagram: 01/05/18 1245 01/05/18 1245 Imaging Last Impressions Chest X-Ray 01/07/18 0000 Signed Impressions: Service Date/Time: December 13:18 - CONCLUSION: No acute disease. No significant change has occurred. Rg Dumont MD Tube Change 01/02/18 0000 Signed Impressions: Service Date/Time: Tuesday, January 02, 2018 15:51 - CONCLUSION: Uncomplicated gastrojejunostomy tube exchange as above. Ernst Goodman Jr., MD Objective Remarks General: No acute distress. Trach. Heart: Regular rate and rhythm. No murmur. Lungs: Coarse breath sounds bilaterally. Breathing is nonlabored. Abdomen: Soft, nontender, nondistended. Extremities: No lower extremity edema. Psych/neuro: Does not track or follow commands. Procedures None Urinary Catheter: No Vascular Central Line Catheter: No A/P Problem List: (1) Bacteremia ICD Code: R78.81 - Bacteremia (2) PNA (pneumonia) ICD Code: J18.9 - Pneumonia, unspecified organism Status: Acute Assessment and Plan 01/09/18: No change. Continue antibiotics per infectious disease recommendations. Trach management per pulmonology. 1. Bacteremia, possible pneumonia vs tracheobronchitis: Appreciate infectious disease recommendations. Blood culture growing staph epidermidis. Sputum culture growing Proteus mirabilis, Klebsiella ESBL positive, Pseudomonas, Acinetobacter. Continue current antibiotics (Azithromycin, Zosyn, Vancomycin) per infectious disease. 2. Chronic trach: Continue supplemental oxygen. Continue DuoNeb. Trach management per pulmonology. 3. Seizure disorder, history of anoxic brain injury: Continue Keppra, Dilantin. 4. History of DVT: Continue apixaban. Discharge Planning When cleared by infectious disease, pulmonology. Problem Qualifiers (1) PNA (pneumonia): Qualified Codes: J18.1 - Lobar pneumonia, unspecified organism Jarrod Langston MD Jan 09, 2018 15:50
[2018-01-10] VITALS (10 sets, daily range): BP systolic 113–157; BP diastolic 56–76; PULSE 56–78; RESP 18–21; TEMP 98.1–98.7; O2SAT 97–100
[2018-01-10] MEDS: VANCOMYCIN 1,000 MG/NS 250 ML IV SCH ×4 (00:10→12:31)
[2018-01-10] MEDS: HYOSCYAMINE 0.125 MG TAB G-TUBE SCH ×6 (00:10→20:22)
[2018-01-10] MEDS: INSULIN ASPART SUPPLEMENTAL SCALE SQ SCH ×4 (08:00→20:25)
[2018-01-10 09:12] LABS: CREATININE 0.68 MG/DL (0.60-1.30)
[2018-01-10] MEDS: POTASSIUM CHLORIDE 25 MEQ EFFERVESCENT TAB NG SCH ×2 (11:59→20:22)
[2018-01-10] MEDS: MULTIVITAMIN TAB G-TUBE SCH (11:59)
[2018-01-10] MEDS: APIXABAN 5 MG TABLET G-TUBE SCH ×2 (11:59→20:21)
[2018-01-10] MEDS: PHENYTOIN SUSP 100 MG/4 ML CUP PO SCH ×2 (11:59→20:21)
[2018-01-10] MEDS: BACLOFEN 20 MG TAB G-TUBE SCH ×3 (11:59→16:56)
[2018-01-10] MEDS: levETIRAcetam 500 MG/5 ML UDC G-TUBE SCH ×2 (12:00→20:20)
[2018-01-10] MEDS: METOPROLOL TARTRATE 25 MG TAB PO SCH ×2 (12:00→20:21)
[2018-01-10] MEDS: FAMOTIDINE 20 MG TAB G-TUBE SCH ×2 (12:00→20:22)
[2018-01-10] MEDS: LORATADINE 10 MG TAB G-TUBE SCH (12:00)
[2018-01-10] MEDS: LORazepam 0.5 MG TAB PO SCH (12:00)
[2018-01-10] MEDS: SODIUM CHLORIDE 0.9% FLUSH 10 ML FLUSH IV FLUSH SCH ×2 (12:01→20:22)
--- NOTE | 2018-01-10 15:42 | HHI.PR ---
Subjective Remarks Follow up tracheobronchitis/pneumonia. Patient is having significant saliva production. No signs of respiratory distress or aspiration. Saliva is running out of the patient's mouth and down his chest/abdomen. Objective Vitals Vital Signs Date Time Temp Pulse Resp B/P (MAP) Pulse Ox O2 Delivery O2 Flow Rate FiO2 01/10/18 12:00 98.7 72 20 157/76 (103) 97 01/10/18 08:00 98.3 56 20 124/60 (81) 100 01/10/18 04:04 57 01/10/18 04:00 T-Piece 5.00 28 01/10/18 04:00 98.4 60 18 119/56 (77) 100 01/10/18 00:00 T-Piece 5.00 28 01/10/18 00:00 98.2 63 20 119/56 (77) 100 01/09/18 23:48 48 01/09/18 22:28 98 T-piece 28 01/09/18 20:00 98.1 59 19 135/68 (90) 100 01/09/18 19:50 51 01/09/18 16:00 98.2 58 20 91/47 (62) 99 01/09/18 16:00 51 I/O 01/09/18 01/09/18 01/09/18 01/10/18 01/10/18 01/10/18 07:00 15:00 23:00 07:00 15:00 23:00 Intake Total 2278 ml 224 ml 1000 ml Output Total 1075 ml 1000 ml Balance 1203 ml 224 ml 0 ml IV Total 1026 ml 224 ml 1000 ml Tube Feeding 1012 ml Other 240 ml Output Urine Total 1075 ml 1000 ml Result Diagram: 01/10/18 0800 Imaging Last Impressions Chest X-Ray 01/07/18 0000 Signed Impressions: Service Date/Time: December 13:18 - CONCLUSION: No acute disease. No significant change has occurred. Rg Dumont MD Tube Change 01/02/18 0000 Signed Impressions: Service Date/Time: Tuesday, January 02, 2018 15:51 - CONCLUSION: Uncomplicated gastrojejunostomy tube exchange as above. Ernst Goodman Jr., MD Objective Remarks General: No acute distress. Trach. Heart: Regular rate and rhythm. No murmur. Lungs: Coarse breath sounds bilaterally. Breathing is nonlabored. Abdomen: Soft, nontender, nondistended. Extremities: No lower extremity edema. Psych/neuro: Does not track or follow commands. Procedures None Urinary Catheter: No Vascular Central Line Catheter: No A/P Problem List: (1) Bacteremia ICD Code: R78.81 - Bacteremia (2) PNA (pneumonia) ICD Code: J18.9 - Pneumonia, unspecified organism Status: Acute Assessment and Plan 01/10/18: No change. Continue antibiotics per infectious disease recommendations. Trach management per pulmonology. 1. Bacteremia, possible pneumonia vs tracheobronchitis: Appreciate infectious disease recommendations. Blood culture growing staph epidermidis. Sputum culture growing Proteus mirabilis, Klebsiella ESBL positive, Pseudomonas, Acinetobacter. Continue current antibiotics (Azithromycin, Zosyn, Vancomycin) per infectious disease. 2. Chronic trach: Continue supplemental oxygen. Continue DuoNeb. Trach management per pulmonology. 3. Seizure disorder, history of anoxic brain injury: Continue Keppra, Dilantin. 4. History of DVT: Continue apixaban. Discharge Planning When cleared by infectious disease, pulmonology. Problem Qualifiers (1) PNA (pneumonia): Qualified Codes: J18.1 - Lobar pneumonia, unspecified organism Jarrod Langston MD Jan 10, 2018 15:42
[2018-01-10] MEDS: SODIUM CHLOR 0.9% 1000 ML INJ 1,000 ML IV SCH (20:20)
[2018-01-11] VITALS: BP 145/66; PULSE 56; RESP 16; TEMP 98.4; O2SAT 99
[2018-01-11 00:10] VITALS: PULSE 64
[2018-01-11] MEDS: HYOSCYAMINE 0.125 MG TAB G-TUBE SCH ×4 (00:21→12:02)
[2018-01-11] MEDS: VANCOMYCIN 1,000 MG/NS 250 ML IV SCH ×4 (00:30→13:22)
[2018-01-11 04:00] VITALS: BP 140/64; PULSE 59; RESP 16; TEMP 98.7; O2SAT 98
[2018-01-11 04:03] VITALS: PULSE 55
[2018-01-11] MEDS: SODIUM CHLOR 0.9% 1000 ML INJ 1,000 ML IV SCH ×2 (07:42→14:22)
[2018-01-11] MEDS: INSULIN ASPART SUPPLEMENTAL SCALE SQ SCH ×2 (08:00→12:00)
[2018-01-11 08:16] VITALS: BP 118/66; PULSE 70; RESP 22; TEMP 99.5; O2SAT 100
--- NOTE | 2018-01-11 08:30 | RADRPT ---
EXAM DATE/TIME: 01/11/2018 08:02 [facility] COMPARISON: CHEST SINGLE AP, January 07, 2018, 13:18. INDICATIONS : Pneumonia. MEDICAL HISTORY : None. SURGICAL HISTORY : None. ENCOUNTER: Subsequent ACUITY: 1 week PAIN SCORE: Non-responsive. LOCATION: chest FINDINGS: The heart is enlarged. A tracheostomy tube is noted with its tip 4 cm above the mary anne. No acute foca l infiltrate or significant pulmonary vascular congestion is noted. CONCLUSION: Stable cardiomegaly. No focal infiltrate or pulmonary vascular congestion. Yuri De Souza MD on January 11, 2018 at 8:26 Board Certified Radiologist. This report was verified electronically.
--- NOTE | 2018-01-11 08:42 | MB ---
cc: Vamsi hSeth MD DATE OF CONSULT: 01/07/2018 REASON FOR CONSULTATION: Tracheostomy management, history of chronic respiratory failure. HISTORY OF PRESENT ILLNESS: This is a 32-year-old man with a prior history of anoxic brain injury and seizure disorder. He has been in the hospital with a recent hospital stay for sepsis and tracheobronchitis with pneumonia. The patient has been on multiple antibiotics for a prior history of ESBL, E. coli, pseudomonas and a history of colitis. He has been on a T-bar, 30% FiO2. The patient has had multiple admissions to the hospital with similar episodes of pneumonia. This time the patient was off the ventilator and on a T-bar at 28%, and seems to be stable, with no significant pulmonary infiltrate. There are some hazy opacities in the left mid to lower lung zones suggestive of some airspace disease. PAST MEDICAL HISTORY: Includes history of severe encephalopathy with anoxic brain injury, history of DVT of the left upper extremity; he is on anticoagulation. Prior history of hypertension, seizure disorder, dyslipidemia, diabetes and history of pancreatitis and gastroesophageal reflux. PAST SURGICAL HISTORY: Includes tracheostomy and PEG tube placement. ALLERGIES: HALDOL. HABITS: Unknown. FAMILY HISTORY: Noncontributory. SYSTEM REVIEW: The patient is unresponsive, in a vegetative state. PHYSICAL EXAMINATION: GENERAL: This is a thinly built young man who is unresponsive, has a trach tube, has multiple contractures of the extremities and muscle wasting. VITAL SIGNS: Blood pressure 116/60, pulse 96, respirations 22, temperature 99. HEENT: Head normocephalic. Pupils are reactive. Sclerae are clear. Throat is injected. Nasal mucosa edematous. NECK: Supple. Trach tube in place. No thyromegaly or lymphadenopathy. CHEST: Decreased excursions, occasional wheezes scattered bilaterally with diminished breath sounds at the periphery. HEART: Sounds are regular, S1 and S2 with no murmur. ABDOMEN: Soft, benign. EXTREMITIES: Muscle wasting with contractures. Reflexes are 1+ with negative Babinski. SKIN: Dry and scaly. ASSESSMENT: 1. Chronic respiratory failure, status post tracheostomy and PEG tube placement. 2. Hypoxic encephalopathy. 3. History of seizures. 4. Hypertension. 5. Aspiration pneumonia. PLAN: The patient will be maintained on the T-bar at 28%, nebulized albuterol and atrovent ____ q. 6 hours and p.r.n. Continue the antibiotic coverage per Infectious Disease service. Followup chest x-ray to be done this week. Tracheal suction and toilet and lavage should be done, and tube feedings continued via PEG tube at 50 mL/hr. Thank you for this consultation. V. Gabbie Sheth MD VJD/TROY , 11:47 PM , 12:21 AM
[2018-01-11] MEDS: SODIUM CHLORIDE 0.9% FLUSH 10 ML FLUSH IV FLUSH SCH (09:00)
[2018-01-11] MEDS: BACLOFEN 20 MG TAB G-TUBE SCH ×2 (09:02→12:03)
[2018-01-11] MEDS: APIXABAN 5 MG TABLET G-TUBE SCH (09:02)
[2018-01-11] MEDS: FAMOTIDINE 20 MG TAB G-TUBE SCH (09:02)
[2018-01-11] MEDS: LORATADINE 10 MG TAB G-TUBE SCH (09:02)
[2018-01-11] MEDS: levETIRAcetam 500 MG/5 ML UDC G-TUBE SCH (09:02)
[2018-01-11] MEDS: LORazepam 0.5 MG TAB PO SCH (09:03)
[2018-01-11] MEDS: POTASSIUM CHLORIDE 25 MEQ EFFERVESCENT TAB NG SCH (09:03)
[2018-01-11] MEDS: METOPROLOL TARTRATE 25 MG TAB PO SCH (09:03)
[2018-01-11] MEDS: MULTIVITAMIN TAB G-TUBE SCH (09:03)
[2018-01-11] MEDS: PHENYTOIN SUSP 100 MG/4 ML CUP PO SCH (09:03)
[2018-01-11 12:16] VITALS: BP 110/58; PULSE 82; RESP 20; TEMP 99.4; O2SAT 94
[2018-01-11] MEDS ORDERED: OXYC-392 PO (12:40)
[2018-01-11] MEDS ORDERED: LORA-392 G-TUBE (12:40)
--- NOTE | 2018-01-11 12:41 | HHI.DCPOC ---
Discharge Care Plan Diagnosis: (1) Bacteremia (2) Severe sepsis (3) Lactic acidosis (4) Chronic respiratory failure Goals to Promote Your Health * To prevent worsening of your condition and complications * To maintain your health at the optimal level Directions to Meet Your Goals Take your medications as prescribed Follow your dietary instruction Follow activity as directed Keep your appointments as scheduled Take your immunizations and boosters as scheduled If your symptoms worsen call your PCP, if no PCP go to Urgent Care Center or Emergency Room Smoking is Dangerous to Your Health. Avoid second hand smoke Call the 24-hour hour crisis hotline for domestic abuse at Jarrod Langston MD Jan 11, 2018 12:41
[2018-01-11] MEDS ORDERED: PHARMACY ORDERED LAB ONE (12:45)
--- NOTE | 2018-01-11 12:45 | HHI.DS ---
Discharge Summary Admission Date Jan 01, 2018 at 14:05 Discharge Date: Jan 11, 2018 Admitting Diagnosis severe sepsis; PNA (1) Bacteremia ICD Code: R78.81 - Bacteremia (2) PNA (pneumonia) ICD Code: J18.9 - Pneumonia, unspecified organism Status: Acute Procedures None Brief History - From Admission 32-year-old -Hung[place] male with history of anoxic brain injury with aphasia, seizure disorder, with chronic trach and PEG tube was sent from [facility] due to change in chronic condition with increase heart rate, increased secretions, respiratory rate. Patient had a previous recent hospitalization for sepsis and has a history of multidrug-resistant tracheobronchitis and pneumonia with previous conization of ESBL E. coli and Pseudomonas. Most recently completed a course of Bactrim at [facility] upon discharge. At this time , I am unable to give further history from the patient other than reviewing old charts or records. CBC/BMP: 01/10/18 0800 Significant Findings Laboratory Tests Test 01/09/18 12:40 01/10/18 05:45 01/10/18 08:00 01/11/18 12:05 Vancomycin Level Trough 19.5 MCG/ML (5.0-10.0) Imaging Last Impressions Chest X-Ray 01/11/18 0000 Signed Impressions: Service Date/Time: Thursday, January 11, 2018 08:02 - CONCLUSION: Stable cardiomegaly. No focal infiltrate or pulmonary vascular congestion. Yuri De Souza MD Tube Change 01/02/18 0000 Signed Impressions: Service Date/Time: Tuesday, January 02, 2018 15:51 - CONCLUSION: Uncomplicated gastrojejunostomy tube exchange as above. Ernst Goodman Jr., MD PE at Discharge General: No acute distress. Trach. Heart: Regular rate and rhythm. No murmur. Lungs: Coarse breath sounds bilaterally. Breathing is nonlabored. Abdomen: Soft, nontender, nondistended. Extremities: No lower extremity edema. Psych/neuro: Does not track or follow commands. Pt update on day of discharge Per nursing, patient continues to have significant secretions. Respiratory status is otherwise stable. Hospital Course The patient was admitted for management of severe sepsis secondary to possible tracheobronchitis, pneumonia. The patient was continued on IV antibiotics. Infectious disease was consulted. Blood culture was positive for Staphylococcus epidermidis. Repeat blood cultures remained negative. Sputum culture grew multiple drug-resistant bacteria. These were felt to be colonization rather than acute infection. Patient completed 10 days of IV antibiotics. He remained afebrile. His white blood cell count remained normal as well. During the hospitalization the patient's tracheostomy tube became dislodged. It was replaced by respiratory therapy without difficulty. Pulmonology was consulted for tracheostomy management. The patient was cleared for discharge by infectious disease. He was felt to be stable for return to [facility] facility. Pt Condition on Discharge: Stable Discharge Disposition: Discharge to SNF Discharge Time: > 30 minutes Discharge Instructions DIET: Follow Instructions for: On Tube Feeding Activities you can perform: Continue Bedrest Follow up Referrals: PCP Follow-up - 2 Weeks Pulmonology - 1 Week Continued Medications: Amlodipine (Norvasc) 10 Mg Tab 10 MG G-TUBE DAILY for Blood Pressure Management, #30 TAB 0 Refills Apixaban (Eliquis) 5 Mg Tab 5 MG GT BID for Blood Clot Prevention, #60 TAB 0 Refills Baclofen (Baclofen) 20 Mg Tab 20 MG G-TUBE TID for Muscle Spasm, #90 TAB 0 Refills Famotidine (Pepcid) 20 Mg Tab 20 MG G-TUBE BID, #60 TAB 0 Refills Hyoscyamine Odt (Levsin-SL) 0.125 Mg Subl 0.25 MG G-TUBE Q4HR for SECRETIONS, TAB.SL 0 Refills Ipratropium-Albuterol Neb (Duoneb) 0.5-2.5 Mg/3 Ml Neb 1 NEBULE G-TUBE Q4HR NEB for Chest Congestion/Cough, #120 NEBULE 0 Refills Levetiracetam Liq (Levetiracetam Liq) 500 Mg/5 Ml Soln 1000 MG G-TUBE Q12HR for Control Seizures, #300 ML 0 Refills Loratadine (Claritin) 10 Mg Tablet 10 MG G-TUBE DAILY for Allergies Lorazepam Inj (Ativan Inj) 2 Mg/Ml Inj 1 MG IM Q6HR PRN for SEIZURES, VIAL Lorazepam (Ativan) 0.5 Mg Tab 0.5-1 MG G-TUBE Q6HR PRN for MILD-MODERATE ANXIETY, #10 TAB 0 Refills (This prescription has been renewed) Metoprolol Tartrate (Metoprolol Tartrate) 25 Mg Tab 25 MG PO BID for HTN, #60 TAB 0 Refills Multiple Vitamins W/ Minerals (Multi-Vitamin/Minerals) 1 Tab Tab 1 TAB G-TUBE DAILY for Nutritional Supplement Oxycodone (Oxycodone) 5 Mg Tab 5 MG PO Q6H PRN for PAIN, #12 TAB 0 Refills (This prescription has been renewed) Phenytoin Liq (Phenytoin Liq) 125 Mg/5 Ml Jessica 200 MG PO Q12HR for Control Seizures, #237 ML 0 Refills Potassium Chloride Liq (Potassium Chloride Liq) 20 Meq/15 Ml Soln 20 MEQ G-TUBE BID for Electrolyte Replacement, ML 0 Refills [Atropine Soln 1%] () 1 DROP PO Q12HR PRN for INCREASED SECRETIONS Discontinued Medications: Lorazepam (Ativan) 0.5 Mg Tab 0.5 MG PO DAILY for Anxiety, TAB 0 Refills Jarrod Langston MD Jan 11, 2018 12:45
--- NOTE | 2018-01-11 13:00 | MB ---
cc: Vamsi Sheth MD DATE OF CONSULT: 01/07/2018 REASON FOR CONSULTATION: Tracheostomy tube management. HISTORY OF PRESENT ILLNESS: This is a 32-year-old -[place] male, who has had multiple admissions with history of chronic wasted state, with severe encephalopathy from anoxic brain injury, has been in a C-collar, with 30% FIO2. The patient initially was brought in for increased respiratory rate, secretions from the trach and tachycardia, suspected to be septic. Was admitted and treated with antibiotic coverage for possible pneumonia and colonization of ESBL. Since he was treated, he is better, but still has copious secretions from the trach tube and postural drainage is being conducted. He has had no significant infiltrates, but has mild scarring and haziness at the lower lung huerta and has had a chronic tracheostomy tube in place. PAST MEDICAL HISTORY: Includes DVT of the upper extremities, anoxic brain injury and seizures, history of dyslipidemia and diabetes mellitus, history of pancreatitis, he has had gastroesophageal reflux. HABITS: The patient was a nonsmoker. No alcohol. Presently is with the mother. FAMILY HISTORY: Noncontributory. SOCIAL HISTORY: The patient is unresponsive. REVIEW OF SYSTEMS: Unable to obtain, the patient is encephalopathic. PHYSICAL EXAMINATION: GENERAL: Averagely built -[place] male lying flat, has a T tube in place. No icterus, pallor or significant lymphadenopathy. VITAL SIGNS: Blood pressure 130/70, pulse 90, respiration 16, temperature 97.8. HEENT: Head normocephalic. Pupils reactive and equal. Tongue moist. Nasal mucosa is edematous. Throat is injected. NECK: Supple, without venous distention. Trachea midline. No lymphadenopathy. CHEST: Equal movements, with scattered expiratory wheezes bilaterally. CARDIOVASCULAR: Heart sounds are irregular. Normal S1 and S2. No murmur. ABDOMEN: PEG tube in place. Bowel sounds are active. No organomegaly or tenderness. EXTREMITIES: Muscle wasting, with contractures. The patient does move his extremities sluggishly. Babinski is negative. SKIN: No lesions. IMPRESSION: 1. Chronic respiratory failure. 2. Status post tracheostomy tube placement. 3. Severe encephalopathy. 4. 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 PLAN: The patient will be placed on T-bar 28%. Tube feeds to be continued at 50 milliliters per hour. The patient will go to a rehab facility shortly. We will add antibiotic coverage as needed per Infectious Disease service. I will review the patient over the next 2-3 days. Thank you, Dr. Smith for this consultation. V. Gabbie Sheth MD VJD/SAUL , 12:02 AM , 01:03 AM
--- NOTE | 2018-01-11 15:20 | HHI.IDPN ---
Subjective Subjective Remarks doing well and is afebrile on 28% FiO2 Antibiotics vancomycin Allergies: Coded Allergies: haloperidol (Unverified Adverse Reaction, Severe, Seizures, 12/17/17) *MDRO Multi-Drug Resistant Organism (Verified Adverse Reaction, Unknown, ) MRSA (sputum) - 04/25/16 & 05/23/16 MRSA PCR Screen POSITIVE - 04/25/2016 ESBL+E.Coli (blood-05/22/16) Objective . Vital Signs Date Time Temp Pulse Resp B/P (MAP) Pulse Ox O2 Delivery O2 Flow Rate FiO2 01/11/18 14:00 T-Piece 5.00 28 01/11/18 09:00 T-Piece 5.00 28 01/11/18 08:16 99.5 70 22 118/66 (83) 100 01/11/18 04:03 55 01/11/18 04:00 T-Piece 5.00 28 01/11/18 04:00 98.7 59 16 140/64 (89) 98 01/11/18 00:10 64 01/11/18 00:00 98.4 56 16 145/66 (92) 99 01/11/18 00:00 T-Piece 5.00 28 01/10/18 21:28 100 T-piece 28 01/10/18 20:00 98.1 78 21 118/75 (89) 97 01/10/18 20:00 T-Piece 5.00 28 01/10/18 19:47 60 01/10/18 18:42 100 5.00 28 01/10/18 16:00 98.5 75 20 113/63 (80) 100 . Laboratory Tests Test 01/10/18 08:00 Creatinine 0.68 MG/DL Estimat Glomerular Filtration Rate 166 ML/MIN Imaging Last Impressions Chest X-Ray 01/07/18 0000 Signed Impressions: Service Date/Time: December 13:18 - CONCLUSION: No acute disease. No significant change has occurred. Rg Dumont MD Tube Change 01/02/18 0000 Signed Impressions: Service Date/Time: Tuesday, January 02, 2018 15:51 - CONCLUSION: Uncomplicated gastrojejunostomy tube exchange as above. Ernst Goodman Jr., MD Physical Exam CONSTITUTIONAL/GENERAL: This is an adequately nourished patient, in no apparent distress. TUBES/LINES/DRAINS: SKIN: No jaundice, rashes, or lesions. Skin temperature appropriate. Not diaphoretic. NECK: Trachea midline. Trach in place site OK, large amount of secretions CARDIOVASCULAR: Regular rate and rhythm without murmurs, gallops, or rubs. No JVD. Peripheral pulses symmetric. RESPIRATORY/CHEST: Symmetric, unlabored respirations. Clear to auscultation. Breath sounds equal bilaterally. No wheezes, rales, or rhonchi. GASTROINTESTINAL: Abdomen soft, non-tender, nondistended. No hepato-splenomegaly , or palpable masses. No guarding. Bowel sounds present. PEG in place GENITOURINARY: Without palpable bladder distension. MUSCULOSKELETAL: Extremities without clubbing, cyanosis, or edema. No joint tenderness or effusion noted. No calf tenderness. No mottling or clubbing. LYMPHATICS: No palpable cervical or supraclavicular adenopathy. NEUROLOGICAL: Unresponsive, Eyes closedd contracted PSYCHIATRIC: unable to assess Assessment & Plan Remarks Anoxic encephalopathy\ Dount PNA, likely tracheobronchitis - clx is polimicobial - clinically responds to zosyn, some of m/o probably contaminants - CXR negative chronic trach Clinically improved on current abx H/o MDRO staph epi bacteremia, multiple + cultures Pt is completely asymptomatic He has chronic trach secretions and is persistently colonised with MDROs complete vancomycin despite of recent h/o MDROs pt sems to improve on current abx choice and is stabel and afebrile, therefore will continue for now current abx OK to dc from ID standpoint dw Dr Nafisa Josue,Nannette Serrano MD Jan 11, 2018 15:20
== END 2018-01-11 15:59 | DRG 871 ==
LOC: NEPC 11:02 → NEDA 14:05 → N04A 18:32
PROVIDERS: ADMIT Family Medicine; ATTEND Family Medicine
PROC: 0D2DXUZ Change Feeding Device in Lower Intestinal Tract, External Approach (ICD-10-PCS; principal; 2018-01-02)
DX: A41.9 Sepsis, unspecified organism (principal); J18.1 Lobar pneumonia, unspecified organism; R40.3 Persistent vegetative state; G93.1 Anoxic brain damage, not elsewhere classified; Z99.11 Dependence on respirator [ventilator] status; J96.10 Chronic respiratory failure, unspecified whether with hypoxia or hypercapnia; R53.2 Functional quadriplegia; E87.2 Acidosis; K94.23 Gastrostomy malfunction; R65.20 Severe sepsis without septic shock; E78.00 Pure hypercholesterolemia, unspecified; I10 Essential (primary) hypertension; F41.9 Anxiety disorder, unspecified; R61 Generalized hyperhidrosis; G40.909 Epilepsy, unspecified, not intractable, without status epilepticus; J40 Bronchitis, not specified as acute or chronic; K21.9 Gastro-esophageal reflux disease without esophagitis; E78.5 Hyperlipidemia, unspecified; E11.9 Type 2 diabetes mellitus without complications; Z16.24 Resistance to multiple antibiotics; M62.838 Other muscle spasm; I25.2 Old myocardial infarction; Z79.01 Long term (current) use of anticoagulants; Z86.718 Personal history of other venous thrombosis and embolism; Z87.820 Personal history of traumatic brain injury; Z86.14 Personal history of Methicillin resistant Staphylococcus aureus infection; Z87.01 Personal history of pneumonia (recurrent)
CPT/HCPCS: 49452; 71045; 76937; 80048; 80053; 80185; 80202; 81001; 82565; 82948; 83605; 83735; 85025; 85610; 85730; 86403; 87040; 87070; 87077; 87186; 87205; 87493; 87804; 93005; 94640; 94664; 96361; 96365; A7520; C1769; C1874; J0456; J2543; J3370; J7030; J7050; J7613; P9612; Q9967

== ENCOUNTER 2018-01-31 01:13 | Observation (INO) | payer MEDICARE, OTHER ==
[~2018-01-31] VITALS: Ht 162.6 cm; Wt 68.4 kg
[2018-01-31] VITALS (13 sets, daily range): BP systolic 115–136; BP diastolic 54–80; PULSE 66–108; RESP 16–20; TEMP 97.3–98.3; O2SAT 91–100
[~2018-01-31 01:13] MED LIST changes: -ALBU.5I NEB; -AMLO10 PO; -APIX5TAB PO; +ATIV2INJ2 IM; -ATRO1SOL11 SL; +ATROPINE 1% PO; -BACL20TA GT; -CLAR10CA3 G-TUBE; +CLAR10TA7 G-TUBE; -CLAR5SYP2 G-TUBE; -FAMO20TA2 PO; -FLEE5TAB PO; -HYDR-3801 G-TUBE; -HYDR-3801 PO; -HYOS1TAB9 PO; -KEPP10002 GT; -KEPP10002 PO; +LEVE100S G-TUBE; -LORA-392 PO; -LORA-474 G-TUBE; -METO-309 PO; +METO25TA3 PO; +MULTTAB62 G-TUBE; -OXYC1CAP PO; -POTA-163 GT; +POTA10SO12 G-TUBE; -POTA10SO12 PO; -RANI150T PO; -SULF1TAB23 PO; -TYLE325T PO; -[UNRECOGNIZED DRUG - OTHER] G-TUBE
[2018-01-31] MEDS ORDERED: LORazepam 2 MG/ML VIAL ONE (01:23)
[2018-01-31] MEDS ORDERED: SODIUM CHLOR 0.9% 1000 ML INJ 1,000 ML IV ONE (01:45)
[2018-01-31] MEDS ORDERED: MORPHINE SULFATE 4 MG/ML INJ IV PUSH ONE (01:45)
[2018-01-31] MEDS ORDERED: BACLOFEN 20 MG TAB G-TUBE ONE (01:45)
--- NOTE | 2018-01-31 01:58 | RADRPT ---
EXAM DATE/TIME: 01/31/2018 01:41 [facility] COMPARISON: No previous studies available for comparison. INDICATIONS : Fever. MEDICAL HISTORY : Myocardial infarction. Anoxic brain injury, Seizures, Chronic trach, Aphasia, DVT, HTN, HLD,Diabetes, Pancreatitis, GERD SURGICAL HISTORY : Tracheostomy, PEG tube placement ENCOUNTER: Initial ACUITY: 1 day PAIN SCORE: Non-responsive. LOCATION: Bilateral chest FINDINGS: A single view of the chest demonstrates the lungs to be symmetrically aerated without evidence of mas s, infiltrate or effusion. Tracheostomy in good position. Minimal basal atelectasis. The cardiomedias tinal contours are unremarkable. Osseous structures are intact. CONCLUSION: 1. No acute findings. Tracheostomy in good position. Fidel Myers MD on January 31, 2018 at 1:53 Board Certified Radiologist. This report was verified electronically.
[2018-01-31] MEDS ORDERED: LORazepam 2 MG/ML VIAL IV PUSH ONE (02:00)
--- NOTE | 2018-01-31 02:13 | PD ---
HPI Chief Complaint: Spasms/questionable seizures Time Seen by Provider: 01:28 Travel History International Travel<30 days: No Contact w/Intl Traveler<30days: No History of Present Illness HPI Is an unfortunate 32-year-old man with a history of hypoxic brain injury and vegetative state who presents to the ED with increased posturing, diaphoresis, tachycardia. Is a history of multiple similar episodes in the past of unclear etiology. I seen him before for this as well. There is concern for infection at times, seizures. He is on Keppra and phenytoin. He resides at [facility]. Mom states he was in his normal state of health prior to the onset of this episode about 10 PM tonight. History Past Medical History Narrative Medical History of Severe traumatic brain injury and persistent vegetative state Chronic tracheostomy Chronic NOAC use History of left upper extremity DVT Recurrent aspiration pneumonia Hypertension Dyslipidemia History of pancreatitis/pseudocyst Diabetes mellitus Chronic narcotic use Chronic muscle relaxant use Social History Alcohol Use: No Tobacco Use: No Allergies-Medications (Allergen,Severity, Reaction): Coded Allergies: haloperidol (Unverified Adverse Reaction, Severe, Seizures, 12/17/17) *MDRO Multi-Drug Resistant Organism (Verified Adverse Reaction, Unknown, ) MRSA (sputum) - 04/25/16 & 05/23/16 MRSA PCR Screen POSITIVE - 04/25/2016 ESBL+E.Coli (blood-05/22/16) Reported Meds & Prescriptions Reported Meds & Active Scripts Active Oxycodone (Oxycodone HCl) 5 Mg Tab 5 Mg PO Q6H PRN Ativan (Lorazepam) 0.5 Mg Tab 0.5-1 Mg G-TUBE Q6HR PRN Baclofen 20 Mg Tab 20 Mg G-TUBE TID Reported Multi-Vitamin/Minerals (Multiple Vitamins W/ Minerals) 1 Tab Tab 1 Tab G-TUBE DAILY Ativan Inj (Lorazepam) 2 Mg/Ml Inj 1 Mg IM Q6HR PRN Metoprolol Tartrate 25 Mg Tab 25 Mg PO BID [Atropine Soln 1%] 1 Drop PO Q12HR PRN Claritin (Loratadine) 10 Mg Tablet 10 Mg G-TUBE DAILY Potassium Chloride Liq (Potassium Chloride) 20 Meq/15 Ml Soln 20 Meq G-TUBE BID Levetiracetam Liq (Levetiracetam) 500 Mg/5 Ml Soln 1,000 Mg G-TUBE Q12HR Norvasc (Amlodipine Besylate) 10 Mg Tab 10 Mg G-TUBE DAILY Phenytoin Liq (Phenytoin) 125 Mg/5 Ml Jessica 200 Mg PO Q12HR Pepcid (Famotidine) 20 Mg Tab 20 Mg G-TUBE BID Duoneb (Ipratropium-Albuterol Neb) 0.5-2.5 Mg/3 Ml Neb 1 Nebule G-TUBE Q4HR NEB Levsin-SL (Hyoscyamine Sulfate) 0.125 Mg Subl 0.25 Mg G-TUBE Q4HR Eliquis (Apixaban) 5 Mg Tab 5 Mg GT BID Review of Systems ROS Limitations: Clinical Condition Physical Exam Exam Limitations: Clinical Condition Narrative GENERAL: Obtunded 32-year-old male, with marked diaphoresis SKIN: Hot, marked diaphoresis. HEAD: Atraumatic. Normocephalic. EYES: Pupils equal and round. No scleral icterus. No injection or drainage. ENT: No nasal bleeding or discharge. Mucous membranes pink and moist. NECK: Trachea midline. No JVD. CARDIOVASCULAR: Heart rate rapid. No murmurs. RESPIRATORY: No accessory muscle use. Clear to auscultation. Breath sounds equal bilaterally. GASTROINTESTINAL: Abdomen soft, non-tender, nondistended. Hepatic and splenic margins not palpable. MUSCULOSKELETAL: No obvious deformities. Extensor posturing with increased contractures. NEUROLOGICAL: Obtunded. No response to most stimuli at this time. Data Data Last Documented VS Vital Signs Date Time Temp Pulse Resp B/P (MAP) Pulse Ox O2 Delivery O2 Flow Rate FiO2 01/31/18 03:06 106 18 125/72 (89) 98 Trach Collar 9.00 01/31/18 01:25 40 Orders Orders Lorazepam Inj (Ativan Inj) (01/31/18 01:23) Sepsis Workup Initiated (01/31/18 ) Complete Blood Count With Diff (01/31/18 01:33) Comprehensive Metabolic Panel (01/31/18 01:33) Lactic Acid Sepsis Protocol (01/31/18 01:33) Urinalysis - C+S If Indicated (01/31/18 01:33) Blood Culture (01/31/18 01:33) Chest, Single Ap (01/31/18 01:33) Blood Glucose (01/31/18 01:33) Ecg Monitoring (01/31/18 01:33) Iv Access Insert/Monitor (01/31/18 01:33) Oximetry (01/31/18 01:33) Oxygen Administration (01/31/18 01:33) Sodium Chlor 0.9% 1000 Ml Inj (Ns 1000 M (01/31/18 01:45) Baclofen (Lioresal) (01/31/18 01:45) Phenytoin (Dilantin) (01/31/18 01:35) Morphine Inj (Morphine Inj) (01/31/18 01:45) Lorazepam Inj (Ativan Inj) (01/31/18 02:00) Admit Order (Ed Use Only) (01/31/18 ) Labs Laboratory Tests Test 01/31/18 02:30 01/31/18 02:36 White Blood Count 13.5 TH/MM3 Red Blood Count 5.08 MIL/MM3 Hemoglobin 15.7 GM/DL Hematocrit 47.2 % Mean Corpuscular Volume 93.0 FL Mean Corpuscular Hemoglobin 30.9 PG Mean Corpuscular Hemoglobin Concent 33.2 % Red Cell Distribution Width 13.5 % Platelet Count 359 TH/MM3 Mean Platelet Volume 10.2 FL Neutrophils (%) (Auto) 78.4 % Lymphocytes (%) (Auto) 13.8 % Monocytes (%) (Auto) 7.2 % Eosinophils (%) (Auto) 0.1 % Basophils (%) (Auto) 0.5 % Neutrophils # (Auto) 10.6 TH/MM3 Lymphocytes # (Auto) 1.9 TH/MM3 Monocytes # (Auto) 1.0 TH/MM3 Eosinophils # (Auto) 0.0 TH/MM3 Basophils # (Auto) 0.1 TH/MM3 CBC Comment DIFF FINAL Differential Comment Blood Urea Nitrogen 12 MG/DL Creatinine 1.37 MG/DL Random Glucose 191 MG/DL Total Protein 9.1 GM/DL Albumin 4.1 GM/DL Calcium Level 9.2 MG/DL Alkaline Phosphatase 173 U/L Aspartate Amino Transf (AST/SGOT) 22 U/L Alanine Aminotransferase (ALT/SGPT) 35 U/L Total Bilirubin 0.2 MG/DL Sodium Level 138 MEQ/L Potassium Level 3.5 MEQ/L Chloride Level 101 MEQ/L Carbon Dioxide Level 20.9 MEQ/L Anion Gap 16 MEQ/L Estimat Glomerular Filtration Rate 74 ML/MIN Lactic Acid Level 4.1 mmol/L [facility] Medical Decision Making Medical Screen Exam Complete: Yes Emergency Medical Condition: Yes Interpretation(s) LABS: CBC remarkable for white count of 13.5 thousand CMP remarkable for elevated anion gap acidosis Glucose 191 Lactate 4.1 Chest x-ray negative. Differential Diagnosis Autonomic instability, contractures, adverse medication effect, medication withdrawal, infection, sepsis, seizures, other Narrative Course Medical decision making 32-year-old male presents emergency department with my estimation is probably autonomic instability from his brain injury, he presents with marked tachycardia , extensor posturing, diaphoresis, and usually fever. This episode started about 10 PM tonight. Patient with multiple previous similar admissions for pneumonia and sepsis. He is colonized with multidrug-resistant bacteria in the past. He also does have a history of seizures. Received multiple doses of benzodiazepines. We will continue his oral baclofen. He does not of a baclofen pump and as far as I can tell is been getting his medications regularly. Will likely plan on admission for observation. Physician Communication Physician Communication Spoke with Dr. Solares, will admit patient for observation. Diagnosis Primary Impression: SIRS (systemic inflammatory response syndrome) Additional Impressions: Autonomic instability Seizure Admitting Information Admitting Physician Requests: Admit Justin Crockett MD Jan 31, 2018 02:13
[2018-01-31 02:58] LABS: AUTOMATED NEUTROPHIL # 10.6 TH/MM3 (1.8-7.7); BASOPHIL # 0.1 TH/MM3 (0-0.2); BASOPHIL % 0.5 % (0.0-2.0); EOSINOPHIL % 0.1 % (0.0-4.0); HEMATOCRIT 47.2 % (39.0-51.0); HEMOGLOBIN 15.7 GM/DL (13.0-17.0); LYMPH % 13.8 % (9.0-44.0); LYMPHOCYTE # 1.9 TH/MM3 (1.0-4.8); MEAN CORPUSCULAR HEMOGLOBIN 30.9 PG (27.0-34.0); MEAN CORPUSCULAR HGB CONC 33.2 % (32.0-36.0); MEAN PLATELET VOLUME 10.2 FL (7.0-11.0); MONO % 7.2 % (0.0-8.0); NEUT % 78.4 % (16.0-70.0); PLATELET COUNT 359 TH/MM3 (150-450); RED BLOOD COUNT 5.08 MIL/MM3 (4.50-5.90); RED CELL DISTRIBUTION WIDTH 13.5 % (11.6-17.2); WHITE BLOOD COUNT 13.5 TH/MM3 (4.0-11.0)
[2018-01-31 03:24] LABS: ALBUMIN 4.1 GM/DL (3.4-5.0); AST (GOT) 22 U/L (15-37); BICARBONATE 20.9 MEQ/L (21.0-32.0); BLOOD UREA NITROGEN 12 MG/DL (7-18); CALCIUM 9.2 MG/DL (8.5-10.1); CHLORIDE 101 MEQ/L (98-107); CREATININE 1.37 MG/DL (0.60-1.30); GLOMERULAR FILTRATION RATE 74 ML/MIN (>89); GLUCOSE,RANDOM 191 MG/DL (74-106); SODIUM (NA) 138 MEQ/L (136-145)
[2018-01-31 03:28] LABS: ALKALINE PHOSPHATASE 173 U/L (45-117); ALT (GPT) 35 U/L (12-78); TOTAL BILIRUBIN ADULT 0.2 MG/DL (0.2-1.0); TOTAL PROTEIN 9.1 GM/DL (6.4-8.2)
[2018-01-31 03:30] LABS: LACTIC ACID SEPSIS PROTOCOL 4.1 mmol/L (0.4-2.0)
[2018-01-31] MEDS ORDERED: MORPHINE SULFATE 2 MG/ML SYRINGE IV PUSH PRN (04:00)
[2018-01-31] MEDS ORDERED: LORazepam 0.5 MG TAB G-TUBE PRN (04:00)
[2018-01-31] MEDS ORDERED: LACTULOSE SYRUP 20 GM/30 ML CUP PO PRN (04:00)
[2018-01-31] MEDS ORDERED: BISACODYL 10 MG SUPP RECTAL PRN (04:00)
[2018-01-31] MEDS ORDERED: SODIUM CHLORIDE 0.9% FLUSH 10 ML FLUSH IV FLUSH PRN (04:00)
[2018-01-31] MEDS ORDERED: MAGNESIUM HYDROXIDE SUSP 30 ML CUP PO PRN (04:00)
[2018-01-31] MEDS ORDERED: SENNOSIDES 8.6 MG TAB PO PRN (04:00)
[2018-01-31] MEDS ORDERED: ONDANSETRON HCL 4 MG/2 ML VIAL IVP PRN (04:00)
[2018-01-31] MEDS ORDERED: LORazepam 2 MG/ML VIAL IV PUSH PRN (04:15)
[2018-01-31 04:22] LABS: BILIRUBIN, URINE NEG (NEG); BLOOD, URINE NEG (NEG); GLUCOSE,URINE NEG (NEG); HYALINE CAST, URINE 7 /lpf (RARE); KETONE, URINE NEG (NEG); MUCUS URINE FEW /lpf (OCC); NITRITE,URINE NEG (NEG); PH, URINE 6.5 (5.0-8.5); URINE COLOR YELLOW (YELLW/STRAW); URINE LEUKOCYTE ESTERASE NEG (NEG)
[2018-01-31] MEDS: SODIUM CHLOR 0.9% 1000 ML INJ 1,000 ML IV SCH ×2 (04:27→12:58)
[2018-01-31] MEDS: RESP: ALBUTEROL 2.5 MG/IPRATROPIUM 0.5 MG NEB (SCH) INH ×5 (04:27→19:04)
--- NOTE | 2018-01-31 04:54 | HHI.HP ---
[facility] Service [facility] Primary Care Physician No Primary Care Physician Admission Diagnosis SIRS, seizure versus autonomic instability Diagnoses: (1) Seizure Diagnosis: Principal (2) Leukocytosis Diagnosis: Principal (3) Lactic acidosis Diagnosis: Principal (4) Anoxic encephalopathy Diagnosis: Principal Travel History International Travel<30 Days: No Contact w/Intl Traveler <30 Da: No Traveled to Known Affected Are: No History of Present Illness This is a 32-year-old male with a PMH of Anoxic Brain Injury, Persistent Vegetative State, s/p PEG/Trach, h/o LUE DVT on Eliquis, HTN, Seizure Disorder and Recurrent Sepsis/PNA w/ Multi-Drug Resistant Infections who was sent to the ER from [place] for episode of diaphoresis, tachycardia and seizure-like activity. Unable to obtain history from patient due to anoxic brain injury. History obtained from report. On arrival, BP 119/66, HR 105, O2 sat 95% on Trach Collar, Temp 99.4. WBC 13.5. Creatinine 1.37, previously 0.69 on 2017. Lactic Acid 4.1. UA negative. CXR with no acute findings. While in ER , patient had episode of posturing thought to be seizure-like activity, s/p Ativan in ER. Blood Cultures obtained. Review of Systems Except as stated in HPI: all other systems reviewed are Neg ROS: Unable to obtain secondary to anoxic encephalopathy. Past Family Social History Past Medical History PMH: Anoxic Brain Injury, Persistent Vegetative State, s/p PEG/Trach, h/o LUE DVT on Eliquis, HTN, Seizure Disorder and Recurrent Sepsis/PNA w/ Multi-Drug Resistant Infections Past Surgical History PAST SURGICAL HISTORY: PEG, Trach Allergies: Coded Allergies: haloperidol (Unverified Adverse Reaction, Severe, Seizures, 12/17/17) *MDRO Multi-Drug Resistant Organism (Verified Adverse Reaction, Unknown, ) MRSA (sputum) - 04/25/16 & 05/23/16 MRSA PCR Screen POSITIVE - 04/25/2016 ESBL+E.Coli (blood-05/22/16) Family History PAST FAMILY HISTORY: Reviewed. No h/o DM or CAD Social History PAST SOCIAL HISTORY: Negative for alcohol, tobacco or drugs. Physical Exam Vital Signs Vital Signs Date Time Temp Pulse Resp B/P (MAP) Pulse Ox O2 Delivery O2 Flow Rate FiO2 01/31/18 03:06 106 18 125/72 (89) 98 Trach Collar 9.00 01/31/18 02:59 98 Trach Collar 9.00 01/31/18 02:51 105 20 119/66 (83) 95 01/31/18 01:25 98 Trach Collar 40 Physical Exam PE: GENERAL: Young black male in no acute distress. Nonverbal, at baseline. Trach Collar. HEENT: PERRLA, EOMI. No scleral icterus or conjunctival pallor. No lid lag or facial droop. CARDIOVASCULAR: Regular rate and rhythm. No obvious murmurs to auscultation. No chest tenderness to palpation. RESPIRATORY: No obvious rhonchi or wheezing. Clear to auscultation. Breath sounds equal bilaterally. GASTROINTESTINAL: Abdomen soft, non-tender, nondistended. BS normal. PEG tube in place MUSCULOSKELETAL: Extremities without clubbing, cyanosis, or edema. +contracted extremities. NEUROLOGICAL: Nonverbal. No focal neurologic deficits. Moving both upper and lower extremities spontaneously. Laboratory Laboratory Tests Test 01/31/18 02:30 01/31/18 02:36 01/31/18 04:10 White Blood Count 13.5 Red Blood Count 5.08 Hemoglobin 15.7 Hematocrit 47.2 Mean Corpuscular Volume 93.0 Mean Corpuscular Hemoglobin 30.9 Mean Corpuscular Hemoglobin Concent 33.2 Red Cell Distribution Width 13.5 Platelet Count 359 Mean Platelet Volume 10.2 Neutrophils (%) (Auto) 78.4 Lymphocytes (%) (Auto) 13.8 Monocytes (%) (Auto) 7.2 Eosinophils (%) (Auto) 0.1 Basophils (%) (Auto) 0.5 Neutrophils # (Auto) 10.6 Lymphocytes # (Auto) 1.9 Monocytes # (Auto) 1.0 Eosinophils # (Auto) 0.0 Basophils # (Auto) 0.1 CBC Comment DIFF FINAL Differential Comment Blood Urea Nitrogen 12 Creatinine 1.37 Random Glucose 191 Total Protein 9.1 Albumin 4.1 Calcium Level 9.2 Alkaline Phosphatase 173 Aspartate Amino Transf (AST/SGOT) 22 Alanine Aminotransferase (ALT/SGPT) 35 Total Bilirubin 0.2 Sodium Level 138 Potassium Level 3.5 Chloride Level 101 Carbon Dioxide Level 20.9 Anion Gap 16 Estimat Glomerular Filtration Rate 74 Lactic Acid Level 4.1 Urine Color YELLOW Urine Turbidity CLEAR Urine pH 6.5 Urine Specific [place] 1.021 Urine Protein 30 Urine Glucose (UA) NEG Urine Ketones NEG Urine Occult Blood NEG Urine Nitrite NEG Urine Bilirubin NEG Urine Urobilinogen 2.0 Urine Leukocyte Esterase NEG Urine RBC LESS THAN 1 Urine WBC LESS THAN 1 Urine Hyaline Casts 7 Urine Mucus FEW Microscopic Urinalysis Comment CATH-CULT NOT IND Date/Time Source Procedure Growth Status 01/31/18 02:40 Blood Peripheral Aerobic Blood Culture Pending Received 4 02:40 Blood Peripheral Anaerobic Blood Culture Pending Received Result Diagram: 01/31/1822901/31/18229 Caprinjaden VTE Risk Assessment Caprinjaden VTE Risk Assessment: Mod/High Risk (score >= 2) Caprini Risk Assessment Model Point Value = 1 Point Value = 2 Point Value = 3 Point Value = 5 Age 41-60 Minor surgery BMI > 25 kg/m2 Swollen legs Varicose veins or History of unexplained or recurrent spontaneous Oral contraceptives or hormone replacement Sepsis (< 1 month) Serious lung disease, including pneumonia (< 1 month) Abnormal pulmonary function Acute myocardial infarction Congestive heart failure (< 1 month) History of inflammatory bowel disease Medical patient at bed rest Age 61-74 Arthroscopic surgery Major open surgery (> 45 min) Laparoscopic surgery (> 45 min) Malignancy Confined to bed (> 72 hours) Immobilizing plaster cast Central venous access Age >= 75 History of VTE Family history of VTE Factor V Leiden Prothrombin [id number] Lupus anticoagulant Anticardiolipin antibodies Elevated serum homocysteine Heparin-induced thrombocytopenia Other congenital or acquired thrombophilia Stroke (< 1 month) Elective arthroplasty Hip, pelvis, or leg fracture Acute spinal cord injury (< 1 month) Prophylaxis Regimen Total Risk Factor Score Risk Level Prophylaxis Regimen 0-1 Low Early ambulation 2 Moderate Order ONE of the following: *Sequential Compression Device (SCD) *Heparin 5000 units SQ BID 3-4 Higher Order ONE of the following medications: *Heparin 5000 units SQ TID *Enoxaparin/Lovenox 40 mg SQ daily (WT < 150 kg, CrCl > 30 mL/min) *Enoxaparin/Lovenox 30 mg SQ daily (WT < 150 kg, CrCl > 10-29 mL/min) *Enoxaparin/Lovenox 30 mg SQ BID (WT < 150 kg, CrCl > 30 mL/min) AND/OR *Sequential Compression Device (SCD) 5 or more Highest Order ONE of the following medications: *Heparin 5000 units SQ TID (Preferred with Epidurals) *Enoxaparin/Lovenox 40 mg SQ daily (WT < 150 kg, CrCl > 30 mL/min) *Enoxaparin/Lovenox 30 mg SQ daily (WT < 150 kg, CrCl > 10-29 mL/min) *Enoxaparin/Lovenox 30 mg SQ BID (WT < 150 kg, CrCl > 30 mL/min) AND *Sequential Compression Device (SCD) Assessment and Plan Problem List: (1) Seizure ICD Code: R56.9 - Unspecified convulsions (2) Leukocytosis ICD Code: D72.829 - Elevated white blood cell count, unspecified Status: Acute (3) Lactic acidosis ICD Code: E87.2 - Acidosis (4) Anoxic encephalopathy ICD Code: G93.1 - Anoxic brain damage, not elsewhere classified Status: Chronic Assessment and Plan A/P: 1. Seizure: episode of posturing, possible seizure vs autonomic dysfunction. On Keppra and Phenytoin, will continue, check levels. Seizure Precautions, Ativan prn. Consult Neurology for further eval/recommendations. 2. Leukocytosis: WBC 13, afebrile at this time, possibly related to seizure activity. H/o Sepsis/PNA w/ multi-drug resistant infections, no obvious source of infection at this time, CXR w/ no acute findings, images reviewed by me. U/ a negative. Blood Cultures obtained, will follow. Hold off on antibiotics for the moment as unclear source. 3. Lactic Acidosis: Lactic Acid 4.1, likely due to seizure. IVF for hydration , repeat lactic acid. 4. Anoxic Encephalopathy: at baseline, non-verbal, on Trach Collars, PEG tube , will resume home medications/settings. 5. DVT Prophylaxis: On Eliquis for h/o DVT 6. Social work for d/c planning as needed. 7. Case discussed w/ ER physician at length, labs/records/imaging reviewed by me. Yolanda Hou MD Jan 31, 2018 04:54
[2018-01-31] MEDS: HYOSCYAMINE SOLN 0.125 MG/ML 15 ML BTL G-TUBE SCH ×5 (05:12→21:05)
[2018-01-31] MEDS: PHENYTOIN SUSP 100 MG/4 ML CUP PO SCH ×2 (08:36→21:02)
[2018-01-31] MEDS: METOPROLOL TARTRATE 25 MG TAB PO SCH ×2 (08:37→21:04)
[2018-01-31] MEDS: LORATADINE 10 MG TAB G-TUBE SCH (08:37)
[2018-01-31] MEDS: APIXABAN 5 MG TABLET G-TUBE SCH ×2 (08:37→21:04)
[2018-01-31] MEDS: MULTIVITAMINS/MINERALS THERAPEUTIC TAB G-TUBE SCH (08:37)
[2018-01-31] MEDS: BACLOFEN 20 MG TAB G-TUBE SCH ×3 (08:37→18:45)
[2018-01-31] MEDS: FAMOTIDINE 20 MG TAB G-TUBE SCH ×2 (08:37→21:04)
[2018-01-31] MEDS: DOCUSATE SODIUM 50 MG/SENNA 8.6 MG TAB PO SCH ×2 (08:37→21:04)
[2018-01-31] MEDS: SODIUM CHLORIDE 0.9% FLUSH 10 ML FLUSH IV FLUSH SCH ×2 (08:38→21:05)
[2018-01-31] MEDS ORDERED: levETIRAcetam 500 MG/5 ML UDC G-TUBE SCH (09:00)
--- NOTE | 2018-01-31 09:55 | HHI.PR ---
Objective Vitals Vital Signs Date Time Temp Pulse Resp B/P (MAP) Pulse Ox O2 Delivery O2 Flow Rate FiO2 01/31/18 08:49 108 01/31/18 07:57 108 16 136/80 (98) 100 Trach Collar 5.00 28 01/31/18 07:33 100 Trach Collar 28 01/31/18 04:30 98 Trach Collar 28 01/31/18 03:06 106 18 125/72 (89) 98 Trach Collar 9.00 01/31/18 02:59 98 Trach Collar 9.00 01/31/18 02:51 105 20 119/66 (83) 95 01/31/18 01:25 98 Trach Collar 40 I/O 01/30/18 01/30/18 01/30/18 01/31/18 01/31/18 01/31/18 07:00 15:00 23:00 07:00 15:00 23:00 Intake Total 1000 ml Balance 1000 ml Intake IV Total 1000 ml Result Diagram: 01/31/18 0230 01/31/18 0230 A/P Problem List: (1) Seizure ICD Code: R56.9 - Unspecified convulsions (2) Leukocytosis ICD Code: D72.829 - Elevated white blood cell count, unspecified Status: Acute (3) Lactic acidosis ICD Code: E87.2 - Acidosis (4) Anoxic encephalopathy ICD Code: G93.1 - Anoxic brain damage, not elsewhere classified Status: Chronic Edwin Garsia MD Jan 31, 2018 09:55
--- NOTE | 2018-01-31 20:40 | MB ---
cc: Jose La MD, PhD DATE: 01/31/2018 REASON FOR CONSULTATION: Possible recurrent seizures. HISTORY OF PRESENT ILLNESS: Mr. Barroso is a 32-year-old man who has a history of anoxic brain injury, in a persistent vegetative state with a tracheostomy and PEG tube placement. He has history of seizures, for which he is on Dilantin and Keppra. He was admitted from [place] for episodes of diaphoresis, tachycardia, seizure-like activity, which is mainly posturing and tremulousness. NEUROLOGIC EXAMINATION: VITAL SIGNS: Reveal blood pressure 120/56, pulse is 66, respiratory rate is 20, temperature 98 degrees. HIGHER CORTICAL FUNCTION: He is nonresponsive. CRANIAL NERVES: No focal deficit. MOTOR: He has no limb movement of the upper extremities. He has occasional myoclonic jerking of the lower extremities. With stimulation, he has myoclonic jerking. Reflexes are symmetric. LABORATORY DATA: The white count is 13,500, hemoglobin 15.7, hematocrit 47%, platelets 359,000. Sodium is 138, potassium 3.5, chloride 101, CO2 of 20.9, the BUN is 12, creatinine 1.37, GFR 74, glucose 191. Lactic acid 1.6, calcium 9.2, AST 22, ALT 35. Tox screen, Dilantin 19.2. Urinalysis: PH is 6.5, specific gravity 1.021, protein is 30. IMPRESSION: Anoxic encephalopathy. The episode that I witnessed appeared to be more myoclonus, which is more reflexic as opposed to seizures. However, would recommend getting an electroencephalogram to evaluate for seizure activity. For the possibility that he might be having seizures, could raise the Keppra dose to 1000 mg q. 8 hours. Jose La MD, PhD DON/SB , 08:01 PM , 08:38 PM
[2018-01-31] MEDS: levETIRAcetam 500 MG/5 ML UDC NG SCH (21:03)
[2018-02-01] VITALS (9 sets, daily range): BP systolic 101–155; BP diastolic 51–74; PULSE 70–103; RESP 17–20; TEMP 97.8–98.7; O2SAT 96–100
[2018-02-01] MEDS: HYOSCYAMINE SOLN 0.125 MG/ML 15 ML BTL G-TUBE SCH ×6 (00:16→23:35)
[2018-02-01] MEDS: SODIUM CHLOR 0.9% 1000 ML INJ 1,000 ML IV SCH ×3 (00:17→23:36)
[2018-02-01] MEDS: RESP: ALBUTEROL 2.5 MG/IPRATROPIUM 0.5 MG NEB (SCH) INH ×6 (00:20→20:49)
[2018-02-01] MEDS: levETIRAcetam 500 MG/5 ML UDC NG SCH ×3 (06:15→23:34)
[2018-02-01] MEDS: MULTIVITAMINS/MINERALS THERAPEUTIC TAB G-TUBE SCH (09:00)
[2018-02-01] MEDS: FAMOTIDINE 20 MG TAB G-TUBE SCH ×2 (09:00→23:34)
[2018-02-01] MEDS: BACLOFEN 20 MG TAB G-TUBE SCH ×3 (09:00→18:12)
[2018-02-01] MEDS: METOPROLOL TARTRATE 25 MG TAB PO SCH ×2 (09:00→23:34)
[2018-02-01] MEDS: LORATADINE 10 MG TAB G-TUBE SCH (09:01)
[2018-02-01] MEDS: DOCUSATE SODIUM 50 MG/SENNA 8.6 MG TAB PO SCH ×2 (09:01→23:35)
[2018-02-01] MEDS: APIXABAN 5 MG TABLET G-TUBE SCH ×2 (09:01→23:34)
[2018-02-01] MEDS: SODIUM CHLORIDE 0.9% FLUSH 10 ML FLUSH IV FLUSH SCH ×2 (09:04→23:33)
[2018-02-01] MEDS: PHENYTOIN SUSP 100 MG/4 ML CUP PO SCH ×2 (09:04→23:34)
--- NOTE | 2018-02-01 14:29 | HHI.PR ---
Subjective Remarks patient eyes open but not interactive on exam- patient spitting a lot of saliva tracheostomy- almost out drooling Objective Vitals Vital Signs Date Time Temp Pulse Resp B/P (MAP) Pulse Ox O2 Delivery O2 Flow Rate FiO2 02/01/18 12:00 97.8 74 20 112/55 (74) 97 02/01/18 08:00 98.7 70 20 101/51 (68) 97 02/01/18 07:41 97 T-piece 5.00 28 02/01/18 04:24 96 T-piece 6.00 28 02/01/18 04:00 98.5 97 17 155/74 (101) 100 02/01/18 00:21 96 T-piece 6.00 28 01/31/18 23:57 97.3 73 16 128/60 (82) 100 01/31/18 20:00 97.5 69 17 115/54 (74) 91 01/31/18 16:37 94 T-piece 6.00 28 01/31/18 16:30 98.3 66 20 120/56 (77) 100 I/O 01/31/18 01/31/18 01/31/18 02/01/18 02/01/18 02/01/18 07:00 15:00 23:00 07:00 15:00 23:00 Intake Total 1000 ml 0 ml Balance 1000 ml 0 ml Intake Oral 0 ml IV Total 1000 ml # Voids 1 3 # Bowel Movements 0 Result Diagram: 01/31/18 0230 01/31/18 0230 Imaging Last Impressions Chest X-Ray 01/31/18 0133 Signed Impressions: Service Date/Time: Wednesday, January 31, 2018 01:41 - CONCLUSION: 1. No acute findings. Tracheostomy in good position. Fidel Myers MD Objective Remarks eyes open, baseline encephalopathy anicteric keep mouth shut tight, spitting out saliva trachesoty- 1/2 way out lungs- + bilateral air entry regular rhyhtm abdomen+ peg in place extremities no edema extremities- hands contracted no purposeful movement A/P Problem List: (1) Seizure ICD Code: R56.9 - Unspecified convulsions (2) Leukocytosis ICD Code: D72.829 - Elevated white blood cell count, unspecified Status: Acute (3) Lactic acidosis ICD Code: E87.2 - Acidosis (4) Anoxic encephalopathy ICD Code: G93.1 - Anoxic brain damage, not elsewhere classified Status: Chronic Assessment and Plan A/P: Anoxic Encephalopathy: at baseline, non-verbal, on Trach Collars, PEG tube, will resume home medications/settings. Seizure: episode of posturing, possible seizure vs autonomic dysfunction. On Keppra and Phenytoin, will continue, Seizure Precautions, Ativan prn. Neurology ff. FF EEG study restart tube feedings- at home on Vital 1.5 goal rate of 90 cc .hr while waiting for final nutrtion recommendation Chronic respiratory failure- on tracheostomy- displaced tracheostomy reinserted at bedside repeat stat CXR portable - film reviewed at bedside- clear Leukocytosis: WBC 13, afebrile at this time, possibly related to seizure activity. H/o Sepsis/PNA w/ multi-drug resistant infections, no obvious source of infection at this time, Initial CXR w/ no acute findings, U/a negative. Blood Cultures obtained, will follow. Hold off on antibiotics for the moment as unclear source. Lactic Acidosis: Lactic Acid 4.1, likely due to seizure. IVF for hydration, repeat lactic acid. DVT Prophylaxis: On Eliquis for h/o DVT Social work for d/c planning as needed. Albert Villar MD Feb 01, 2018 14:29
--- NOTE | 2018-02-01 15:18 | RADRPT ---
EXAM DATE/TIME: 02/01/2018 14:55 [facility] COMPARISON: CHEST SINGLE AP, January 31, 2018, 1:41. INDICATIONS : Evaluate trach placement. MEDICAL HISTORY : Myocardial infarction. Anoxic brain injury, Seizures, Chronic trach,Aphasia, DVT, HTN, HLD,Diabetes, Pancreatitis, GERD SURGICAL HISTORY : Tracheostomy, PEG tube placement. ENCOUNTER: Subsequent ACUITY: 2 days PAIN SCORE: Non-responsive. LOCATION: Bilateral chest FINDINGS: A single view of the chest demonstrates the lungs to be symmetrically aerated without evidence of mas s, infiltrate or effusion. The cardiomediastinal contours are unremarkable. Tracheostomy tube appro priately positioned with the tip just above the clavicular heads. Osseous structures are intact. CONCLUSION: 1. Tracheostomy tube identified with the tip appropriately positioned just above the clavicular heads . 2. Otherwise, no acute cardiopulmonary process Abhinav Priest MD on February 01, 2018 at 15:15 Board Certified Radiologist. This report was verified electronically.
[2018-02-01 16:45] LABS: ALBUMIN 3.1 GM/DL (3.4-5.0); ALKALINE PHOSPHATASE 144 U/L (45-117); ALT (GPT) 27 U/L (12-78); AST (GOT) 23 U/L (15-37); BICARBONATE 25.7 MEQ/L (21.0-32.0); BLOOD UREA NITROGEN 4 MG/DL (7-18); CALCIUM 8.5 MG/DL (8.5-10.1); CHLORIDE 109 MEQ/L (98-107); CREATININE 0.64 MG/DL (0.60-1.30); GLOMERULAR FILTRATION RATE 178 ML/MIN (>89); GLUCOSE,RANDOM 87 MG/DL (74-106); SODIUM (NA) 145 MEQ/L (136-145); TOTAL BILIRUBIN ADULT 0.2 MG/DL (0.2-1.0); TOTAL PROTEIN 6.9 GM/DL (6.4-8.2)
[2018-02-01 20:58] LABS: AUTOMATED NEUTROPHIL # 3.7 TH/MM3 (1.8-7.7); BASOPHIL % 0.2 % (0.0-2.0); EOSINOPHIL # 0.1 TH/MM3 (0-0.4); EOSINOPHIL % 1.1 % (0.0-4.0); HEMATOCRIT 36.3 % (39.0-51.0); HEMOGLOBIN 12.2 GM/DL (13.0-17.0); LYMPH % 22.8 % (9.0-44.0); LYMPHOCYTE # 1.3 TH/MM3 (1.0-4.8); MEAN CELL VOLUME 92.2 FL (80.0-100.0); MEAN CORPUSCULAR HGB CONC 33.7 % (32.0-36.0); MEAN PLATELET VOLUME 9.9 FL (7.0-11.0); MONO % 10.1 % (0.0-8.0); MONOCYTE # 0.6 TH/MM3 (0-0.9); NEUT % 65.8 % (16.0-70.0); PLATELET COUNT 147 TH/MM3 (150-450); RED BLOOD COUNT 3.94 MIL/MM3 (4.50-5.90); RED CELL DISTRIBUTION WIDTH 13.4 % (11.6-17.2); WHITE BLOOD COUNT 5.6 TH/MM3 (4.0-11.0)
[2018-02-02] VITALS: BP 99/52; PULSE 47; RESP 22; TEMP 98.4; O2SAT 100
[2018-02-02] MEDS: RESP: ALBUTEROL 2.5 MG/IPRATROPIUM 0.5 MG NEB (SCH) INH ×5 (00:21→16:08)
[2018-02-02 00:25] VITALS: O2SAT 100
[2018-02-02 04:00] VITALS: BP 126/62; PULSE 71; RESP 19; TEMP 98.5; O2SAT 97
[2018-02-02] MEDS: HYOSCYAMINE SOLN 0.125 MG/ML 15 ML BTL G-TUBE SCH ×5 (04:57→16:00)
[2018-02-02] MEDS: levETIRAcetam 500 MG/5 ML UDC NG SCH ×2 (05:29→14:00)
[2018-02-02] MEDS: SODIUM CHLOR 0.9% 1000 ML INJ 1,000 ML IV SCH ×2 (05:59→15:59)
--- NOTE | 2018-02-02 08:04 | MG ---
cc: Britton Slade MD TEST NUMBER: [id number]. DESCRIPTION: Hyperventilation not performed. Diffuse cerebral dysfunction and anoxic encephalopathy, [place]. Recording shows very low-amplitude background recording, which would appear to be some blink artifact noted bilaterally. No hemisphere asymmetry is noted. No epileptiform or seizure activity is seen. Photic stimulation is performed without significant posterior driving. IMPRESSION: Appears to be blink artifact, otherwise has very low-amplitude recording consistent with diffuse encephalopathy. Clinical correlation is needed. MD KUSUM Jasmine/SAUL , 06:14 PM , 06:25 PM
[2018-02-02 08:06] VITALS: BP 155/70; PULSE 63; RESP 20; TEMP 98.9; O2SAT 100
[2018-02-02] MEDS: PHENYTOIN SUSP 100 MG/4 ML CUP PO SCH (08:57)
[2018-02-02] MEDS: APIXABAN 5 MG TABLET G-TUBE SCH (08:57)
[2018-02-02] MEDS: LORATADINE 10 MG TAB G-TUBE SCH (08:57)
[2018-02-02] MEDS: BACLOFEN 20 MG TAB G-TUBE SCH ×2 (08:58→12:40)
[2018-02-02] MEDS: METOPROLOL TARTRATE 25 MG TAB PO SCH (08:58)
[2018-02-02] MEDS: FAMOTIDINE 20 MG TAB G-TUBE SCH (08:58)
[2018-02-02] MEDS: DOCUSATE SODIUM 50 MG/SENNA 8.6 MG TAB PO SCH (08:58)
[2018-02-02] MEDS: MULTIVITAMINS/MINERALS THERAPEUTIC TAB G-TUBE SCH (08:58)
[2018-02-02] MEDS: SODIUM CHLORIDE 0.9% FLUSH 10 ML FLUSH IV FLUSH SCH (08:58)
[2018-02-02 12:06] VITALS: BP 152/68; PULSE 64; RESP 20; TEMP 98.7; O2SAT 100
[2018-02-02 12:31] LABS: AUTOMATED NEUTROPHIL # 3.7 TH/MM3 (1.8-7.7); BASOPHIL % 0.2 % (0.0-2.0); EOSINOPHIL # 0.1 TH/MM3 (0-0.4); EOSINOPHIL % 1.3 % (0.0-4.0); HEMATOCRIT 36.7 % (39.0-51.0); HEMOGLOBIN 12.5 GM/DL (13.0-17.0); LYMPH % 21.5 % (9.0-44.0); LYMPHOCYTE # 1.2 TH/MM3 (1.0-4.8); MEAN CELL VOLUME 91.7 FL (80.0-100.0); MEAN CORPUSCULAR HEMOGLOBIN 31.1 PG (27.0-34.0); MEAN CORPUSCULAR HGB CONC 33.9 % (32.0-36.0); MEAN PLATELET VOLUME 9.3 FL (7.0-11.0); MONO % 11.8 % (0.0-8.0); MONOCYTE # 0.7 TH/MM3 (0-0.9); NEUT % 65.2 % (16.0-70.0); PLATELET COUNT 141 TH/MM3 (150-450); RED CELL DISTRIBUTION WIDTH 13.5 % (11.6-17.2); WHITE BLOOD COUNT 5.6 TH/MM3 (4.0-11.0)
[2018-02-02 13:04] LABS: BICARBONATE 26.3 MEQ/L (21.0-32.0); CALCIUM 8.6 MG/DL (8.5-10.1); CREATININE 0.62 MG/DL (0.60-1.30)
[2018-02-02 16:06] VITALS: BP 153/74; PULSE 80; RESP 20; TEMP 97.8; O2SAT 100
== END 2018-02-02 17:30 ==
LOC: NEPE 01:13 → NEDA 03:49 → NEDH 08:45 → N04A 16:19
PROVIDERS: ADMIT Internal Medicine; ATTEND Internal Medicine
DX: G93.1 Anoxic brain damage, not elsewhere classified (principal); J96.10 Chronic respiratory failure, unspecified whether with hypoxia or hypercapnia; G40.909 Epilepsy, unspecified, not intractable, without status epilepticus; D72.829 Elevated white blood cell count, unspecified; E87.2 Acidosis; I10 Essential (primary) hypertension; R00.0 Tachycardia, unspecified; Z16.24 Resistance to multiple antibiotics; R40.3 Persistent vegetative state; Z86.718 Personal history of other venous thrombosis and embolism; Z93.1 Gastrostomy status; Z93.0 Tracheostomy status; E78.5 Hyperlipidemia, unspecified; Z79.891 Long term (current) use of opiate analgesic
CPT/HCPCS: 71045; 80048; 80053; 80185; 81001; 83605; 85025; 87040; 94640; 94664; 95819; 96361; 96374; 96375; 99285; A7520; G0378; J2060; J2270; J2405; J7030

== ENCOUNTER 2018-05-22 08:25 | Inpatient (IN) ==
[2018-05-22] MEDS ORDERED: Sod Chloride 0.9% Inj 1,000 ML IV.SIG ONE ×2 (08:34→10:08)
--- NOTE | 2018-05-22 08:41 | ED ---
HPI General Chief complaint: Fever Stated complaint: Fever Time Seen by Provider: 05/22/18 08:27 Source: EMS History of Present Illness HPI narrative: Patient presents to the emergency department from [facility] secondary to productive cough and fever. She has a history of anoxic brain injury and is trach dependent. Reportedly has a history of aspiration pneumonia and developed productive cough with brown sputum, fever, vomiting. Patient was reportedly treated for aspiration pneumonia approximately 4 weeks ago. He is nonverbal. Pressure the facility was 101.3 and he was given Tylenol at 5:00 this morning. Temperature axillary by EMS was 99.5. He is on 2 L of O2 continuously. Related Data Allergies Allergy/AdvReac Type Severity Reaction Status Date / Time haloperidol AdvReac Severe Seizures Verified 05/22/18 09:41 *MDRO Multi-Drug Resistant AdvReac Unknown Dry Mucus Uncoded 05/22/18 09:41 Organism Membranes Review of Systems ROS Unobtainable other (trach dependent) [facility] Social History Social History Substance History: No History of Abuse Second Hand Smoke Exposure: No Smoking Status: Never smoker How Often Do You Have a Drink Containing Alcohol: Never Recent Travel in [facility] within the Last 8 Weeks: No Recent Out of Country Travel within the Last 8 Weeks: No Exam Narrative Exam Narrative: GENERAL: No acute distress. SKIN: Focused skin assessment warm/dry. HEAD: Atraumatic. Normocephalic. EYES: Pupils equal and round. No scleral icterus. No injection or drainage. ENT: No nasal bleeding or discharge. Mucous membranes dry. NECK: Trachea midline. No JVD. Trach. CARDIOVASCULAR: Tachycardic. No murmur appreciated. RESPIRATORY: No accessory muscle use. Clear to auscultation. Breath sounds equal bilaterally. GASTROINTESTINAL: Abdomen soft, non-tender, nondistended. Feeding tube in place without any discharge or erythema around insertion site. No decub ulcers noted. MUSCULOSKELETAL: No obvious deformities. No clubbing. No cyanosis. No edema. Contractures. NEUROLOGICAL: Awake and alert. PSYCHIATRIC: Appropriate mood and affect; insight and judgment normal. Course Initial Documented Vital Signs Temperature 100 F H 05/22/18 08:50 Pulse Rate 123 H 05/22/18 08:50 Respiratory Rate 20 05/22/18 08:50 Blood Pressure 131/75 05/22/18 08:50 Pulse Oximetry 100 05/22/18 08:50 Last Documented Vital Signs Temperature 100.5 F H 05/22/18 11:55 Pulse Rate 114 H 05/22/18 11:55 Respiratory Rate 24 05/22/18 11:55 Blood Pressure 133/73 05/22/18 11:55 Pulse Oximetry 97 05/22/18 11:55 Critical Care Time Critical Care Time: Yes Total Critical Care Time: 30 Attestation: Aggregate critical care time was 30 minutes. Time to perform other separately billable procedures was not included in the critical care time. My time did not include minutes spent treating any other patients simultaneously or on activities that did not directly contribute to the patient's treatment. The services I provided to this patient were to treat and/or prevent clinically significant deterioration that could result in: , increase morbidity, respiratory failure. I provided critical care services requiring my management, as noted below: Chart data review, documentation time, medication orders and management, vital sign assessments/reviewing monitor data, ordering and reviewing lab tests, ordering and interpreting/reviewing x-rays and diagnostic studies, care of the patient and discussion of the patient with the admitting physicians. Medical Decision Making MDM Narrative Medical decision making narrative: Patient presents to the emergency department with fever and productive cough. IV access was obtained by EVAC. He is placed on a commercial development manager continuous pulse ox. Chest x-ray, labs, 1 L IV normal saline ordered x 2. Mom states that patient will get agitated when moved/IVs placement and IV morphine will "calm him down"-> given 2mg IV morphine. Patient has a low grade temp, given 650mg tylenol via G tube. ECG also ordered as he is tachy. Respiratory has been called to suction patient. No leukocytosis, positive lactic acidosis, glucose and alk phos slightly increased, blood cultures pending, chest XR FINDINGS: A single AP view of the chest demonstrates minimal bibasilar densities. Tracheostomy tube unchanged. Heart normal in size. The cardiomediastinal contours are unremarkable. Osseous structures are intact. CONCLUSION: Minimal bibasilar densities likely atelectasis. Patient given 1g IV vancomycin and 3.375g IV zosyn. UA-nitrates/ LE. Differential Diagnosis Differential Diagnosis: Viral illness, aspiration pneumonia, bacterial pneumonia , sepsis Lab Data Result diagrams: 05/22/18 09:04 05/22/18 09:04 Lab Results 05/22/18 05/22/18 05/22/18 Range/Units 09:04 09:04 09:04 WBC 10.2 (4.0-11.0) th/mm3 RBC 5.15 (4.50-5.90) mil/mm3 Hgb 15.9 (13.0-17.0) gm/dL Hct 47.6 (39.0-51.0) % MCV 92.4 (80.0-100.0) fL MCH 31.0 (27.0-34.0) pg MCHC 33.5 (32.0-36.0) % RDW 13.8 (11.6-17.2) % Plt Count 237 (150-450) th/mm3 MPV 9.8 (7.0-11.0) fL Neut % (Auto) 83.9 H (16.0-70.0) % Lymph % (Auto) 7.0 L (9.0-44.0) % [place] % (Auto) 8.8 H (0.0-8.0) % Eos % (Auto) 0.1 (0.0-4.0) % Baso % (Auto) 0.2 (0.0-2.0) % Neut # (Auto) 8.6 H (1.8-7.7) th/mm3 Lymph # (Auto) 0.7 L (1.0-4.8) th/mm3 [place] # (Auto) 0.9 (0.0-0.9) th/mm3 Eos # (Auto) 0.0 (0.0-0.4) th/mm3 Baso # (Auto) 0.0 (0.0-0.2) th/mm3 WBC Differential . Differential Comment Auto diff final Sodium 142 (136-145) meq/L Potassium 4.0 (3.5-5.1) meq/L Chloride 105 (98-107) meq/L Carbon Dioxide 28.6 (21.0-32.0) meq/L Anion Gap 8 (5-15) meq/L BUN 14 (7-18) mg/dL Creatinine 0.81 (0.60-1.30) mg/dL Estimated GFR Greater than 89 (>89) mL/min Random Glucose 115 H (74-106) mg/dL Lactic Acid 2.8 H (0.4-2.0) mmol/L Calcium 9.1 (8.5-10.1) mg/dL Total Bilirubin 0.3 (0.2-1.0) mg/dL AST 29 (15-37) U/L ALT 51 (12-78) U/L Alkaline Phosphatase 152 H (45-117) U/L Total Protein 9.1 H (6.4-8.2) g/dL Albumin 3.7 (3.4-5.0) g/dL Urine Color (Yellw/Straw) Urine Clarity (Clear) Urine pH (5.0-8.5) Ur Specific [place] (1.002-1.035) Urine Protein (Neg-Trace) mg/dL Urine Glucose (UA) (Negative) mg/dL Urine Ketones (Negative) mg/dL Urine Occult Blood (Negative) Urine Nitrate (Negative) Urine Bilirubin (Negative) Urine Urobilinogen (Less than 2) mg/dL Ur Leukocyte Esterase (Negative) Urine RBC (0-3) /hpf Urine WBC (0-5) /hpf Urine Mucus (Occasional) /lpf Micro UA Comment Urine Culture Comments Phenytoin 15.6 (10.0-20.0) mcg/mL 05/22/18 Range/Units 09:30 WBC (4.0-11.0) th/mm3 RBC (4.50-5.90) mil/mm3 Hgb (13.0-17.0) gm/dL Hct (39.0-51.0) % MCV (80.0-100.0) fL MCH (27.0-34.0) pg MCHC (32.0-36.0) % RDW (11.6-17.2) % Plt Count (150-450) th/mm3 MPV (7.0-11.0) fL Neut % (Auto) (16.0-70.0) % Lymph % (Auto) (9.0-44.0) % [place] % (Auto) (0.0-8.0) % Eos % (Auto) (0.0-4.0) % Baso % (Auto) (0.0-2.0) % Neut # (Auto) (1.8-7.7) th/mm3 Lymph # (Auto) (1.0-4.8) th/mm3 [place] # (Auto) (0.0-0.9) th/mm3 Eos # (Auto) (0.0-0.4) th/mm3 Baso # (Auto) (0.0-0.2) th/mm3 WBC Differential Differential Comment Sodium (136-145) meq/L Potassium (3.5-5.1) meq/L Chloride (98-107) meq/L Carbon Dioxide (21.0-32.0) meq/L Anion Gap (5-15) meq/L BUN (7-18) mg/dL Creatinine (0.60-1.30) mg/dL Estimated GFR (>89) mL/min Random Glucose (74-106) mg/dL Lactic Acid (0.4-2.0) mmol/L Calcium (8.5-10.1) mg/dL Total Bilirubin (0.2-1.0) mg/dL AST (15-37) U/L ALT (12-78) U/L Alkaline Phosphatase (45-117) U/L Total Protein (6.4-8.2) g/dL Albumin (3.4-5.0) g/dL Urine Color [place] (Yellw/Straw) Urine Clarity Hazy H (Clear) Urine pH 6.0 (5.0-8.5) Ur Specific [place] 1.029 (1.002-1.035) Urine Protein 30 H (Neg-Trace) mg/dL Urine Glucose (UA) Negative (Negative) mg/dL Urine Ketones Trace (Negative) mg/dL Urine Occult Blood Negative (Negative) Urine Nitrate Negative (Negative) Urine Bilirubin Negative (Negative) Urine Urobilinogen 4 or greater (Less than 2) mg/dL Ur Leukocyte Esterase Negative (Negative) Urine RBC 42 H (0-3) /hpf Urine WBC 1 (0-5) /hpf Urine Mucus Few H (Occasional) /lpf Micro UA Comment Culture not ind Urine Culture Comments Culture not ind Phenytoin (10.0-20.0) mcg/mL Imaging Data Radiologist's impression: Chest X-Ray 05/22/18 08:37 CONCLUSION: Minimal bibasilar densities likely atelectasis ECG Data Attestation: I personally reviewed and interpreted this ECG as follows: (Sinus tachycardia, rate 120, left axis deviation, normal intervals,) Discharge Plan Discharge Disposition Patient Disposition: 30 Still Patient Discharge Condition Condition: Stable Discharge Details Diagnosis: Sepsis, Pneumonia Physicians Team ED Provider: Bertha Shannon Primary Care Provider: Britton Samuels Attending Provider: Aditi Nazario Discharge Interventions Interventions: Vital Signs Last Done: 05/22/18 11:55 Status ED Status: Admitted Patient
[2018-05-22] MEDS ORDERED: Morphine Sulfate Inj 2 MG/ML Vial IV.PUSH ONE (09:15)
[2018-05-22] MEDS ORDERED: Acetaminophen 325 MG Tablet G-TUBE ONE (09:19)
[2018-05-22 09:23] LABS: Baso % (Auto) 0.2 % (0.0-2.0); Eos % (Auto) 0.1 % (0.0-4.0); Hematocrit 47.6 % (39.0-51.0); Hemoglobin 15.9 gm/dL (13.0-17.0); Lymph # (Auto) 0.7 th/mm3 (1.0-4.8); Mean Corpuscular HGB Conc 33.5 % (32.0-36.0); Mean Corpuscular Volume 92.4 fL (80.0-100.0); Mean Platelet Volume 9.8 fL (7.0-11.0); Mono # (Auto) 0.9 th/mm3 (0.0-0.9); Mono % (Auto) 8.8 % (0.0-8.0); Neut # (Auto) 8.6 th/mm3 (1.8-7.7); Neut % (Auto) 83.9 % (16.0-70.0); Platelet Count 237 th/mm3 (150-450); Red Blood Count 5.15 mil/mm3 (4.50-5.90); Red Cell Distribution Width 13.8 % (11.6-17.2); White Blood Count 10.2 th/mm3 (4.0-11.0)
--- NOTE | 2018-05-22 09:29 | XR ---
EXAM DATE: 05/22/2018 9:25 AM EDT AGE/SEX: 33 years / Male INDICATIONS: Cough. CLINICAL DATA: This is the patient's initial encounter. Patient reports that signs and symptoms have been present for 1 day and indicates a pain score of Nonresponsive. MEDICAL/SURGICAL HISTORY: . Myocardial infarction. Anoxic brain injury, Seizures, Chronic trach ,Aphasia, DVT, HTN, HLD,Diabetes, Pancreatitis, GERD . Tracheostomy, PEG tube placement. COMPARISON: [facility] [place], CHEST SINGLE AP, 02/01/2018. . FINDINGS: A single AP view of the chest demonstrates minimal bibasilar densities. Tracheostomy tube unchanged. Heart normal in size. The cardiomediastinal contours are unremarkable. Osseous structures are intact . CONCLUSION: Minimal bibasilar densities likely atelectasis Electronically signed by: Frederick Maynard MD 05/22/2018 9:28 AM EDT
[2018-05-22 09:40] LABS: Alanine Aminotransferase 51 U/L (12-78); Albumin 3.7 g/dL (3.4-5.0); Anion Gap 8 meq/L (5-15); Aspartate Aminotransferase 29 U/L (15-37); Blood Urea Nitrogen 14 mg/dL (7-18); Calcium 9.1 mg/dL (8.5-10.1); Carbon Dioxide 28.6 meq/L (21.0-32.0); Chloride 105 meq/L (98-107); Glomerular Filtration Rate Greater Than 89 mL/min (>89); Glucose,Random 115 mg/dL (74-106); Sodium 142 meq/L (136-145)
[2018-05-22 09:43] LABS: Alkaline Phosphatase 152 U/L (45-117); Phenytoin (Dilantin) 15.6 mcg/mL (10.0-20.0); Total Protein 9.1 g/dL (6.4-8.2)
[2018-05-22] MEDS ORDERED: Piperacil/Tazo 3.375 GM Premix 50 ML IV.SIG ONE (10:02)
[2018-05-22] MEDS ORDERED: Vancomycin Inj 1 GM/200 ML PIGGYBACK IV.SIG ONE (10:02)
[2018-05-22 10:59] LABS: Bilirubin,Urine Negative (Negative); Clarity,Urine Hazy (Clear); Color,Urine Amber (Yellw/Straw); Glucose,Urine (UA) Negative (Negative); Leukocyte Esterase,Urine Negative (Negative); Mucus,Urine Few /lpf (Occasional); Nitrite,Urine Negative (Negative); Specific Gravity,Urine 1.029 (1.002-1.035); Urobilinogen,Urine 4 or Greater mg/dL (Less than 2)
[2018-05-22] MEDS ORDERED: Vancomycin Inj 1,000 MG in Sodium Chlor 0.9% Inj 250 ML IV.SIG ONE (11:00)
[2018-05-22] MEDS ORDERED: Bisacodyl 10 MG Supp RECTAL PRN (13:16)
[2018-05-22] MEDS ORDERED: Dextrose 50% in Water 50 ML Vial IV.PUSH PRN (13:22)
--- NOTE | 2018-05-22 13:24 | P.HPIM ---
History of Present Illness Primary Care Physician: Britton Samuels MD Chief Complaint: Pneumonia, failure of outpatient treatment History of Present Illness: This is a 33-year-old male with history of anoxic brain injury with aphasia and seizure disorder, status post tracheostomy and PEG tube placement, diabetes mellitus, hypertension, pancreatitis lives in [facility] with frequent history of pneumonia presented to the hospital with pneumonia who failed outpatient treatment. Per patient's mother, the patient was diagnosed by [facility] physician with pneumonia about 1 week ago. Patient was placed on azithromycin and is finished 1 week of treatment. There was no improvement with patient's symptoms including cough productive with brownish to yellowish sputum, and fever. Patient was then sent to the hospital for unremitting fever. Of note, patient was last hospitalized for pneumonia in December 2017 with colonization of E. coli ESBL and Pseudomonas. During which, he responded to Zosyn for Proteus, Klebsiella, Acinetobacter and Pseudomonas. Patient is nonverbal, no meaningful history can be taken from the patient. Inpatient Certification: I certify that the inpatient services were ordered in accordance with Medicare regulations governing the order. This includes certification that hospital inpatient services are reasonable and necessary and in the case of services not specified as inpatient-only under 42 CFR 419.22(n), that they are appropriately provided as inpatient services in accordance to with the 2-midnight benchmark under 43 CFR 412.3(e) Review of Systems All other pertinent systems were reviewed and are negative. PMFSH - History History Provided By: Patient - Medical History Medical History: Medical History (Last Updated 05/22/18 @ 13:11 by Aditi Nazario MD) Anoxic brain damage DVT (deep venous thrombosis) Diabetes mellitus Dyslipidemia GERD (gastroesophageal reflux disease) HTN (hypertension) Pancreatitis Seizure Tracheostomy dependent - Surgical History Surgical History: Surgical History (Last Updated 05/22/18 @ 13:11 by Aditi Nazario MD) PEG (percutaneous endoscopic gastrostomy) status - Tobacco History Second Hand Smoke Exposure: No Tobacco Use In Past 30 Days: No Smoking Status: Never smoker - Alcohol History How Often Do You Have a Drink Containing Alcohol: Never - Substance Use History Substance History: No History of Abuse - Travel History Recent Travel in the [place] Within the Last 8 Weeks: No Recent Travel Out of the Country Within the Last 8 Weeks: No - Immunization History Tetanus Immunization: Unsure Hx Influenza Vaccine This Season: Unable to Assess Medications and Allergies Allergies Allergy/AdvReac Type Severity Reaction Status Date / Time haloperidol AdvReac Severe Seizures Verified 05/22/18 09:41 *MDRO Multi-Drug Resistant AdvReac Unknown Dry Mucus Uncoded 05/22/18 09:41 Organism Membranes Home Medications Medication Instructions Recorded Confirmed Type amlodipine [Norvasc] 10 mg PO DAILY 05/22/18 05/22/18 History apixaban [Eliquis] 5 mg PO BID 05/22/18 05/22/18 History baclofen 20 mg PO Q8H 05/22/18 05/22/18 History famotidine 20 mg PO BID 05/22/18 05/22/18 History glycopyrrolate 1 mg PO Q8H PRN 05/22/18 05/22/18 History hyoscyamine sulfate [Levsin] 0.25 mg PO Q4H PRN 05/22/18 05/22/18 History ipratropium-albuterol 3 ml INHALATION Q4H 05/22/18 05/22/18 History levetiracetam 1,000 mg PO Q12H 05/22/18 05/22/18 History loratadine [Claritin] 10 mg PO DAILY 05/22/18 05/22/18 History lorazepam 1 mg/kg IM Q6HR PRN 05/22/18 05/22/18 History lorazepam [Ativan] 0.5 mg FEEDING TUBE DAILY 05/22/18 05/22/18 History lorazepam [Ativan] 0.5 mg FEEDING TUBE Q4HR PRN 05/22/18 05/22/18 History lorazepam [Ativan] 1 mg PO Q4HR PRN 05/22/18 05/22/18 History metoprolol tartrate 25 mg PO BID 05/22/18 05/22/18 History metoprolol tartrate 25 mg PO Q8H PRN 05/22/18 05/22/18 History multivitamin with minerals 5 ml PO DAILY 05/22/18 05/22/18 History oxycodone 5 mg PO Q6H PRN 05/22/18 05/22/18 History phenytoin 200 mg G-TUBE BID 05/22/18 05/22/18 History potassium chloride 20 meq PO BID 05/22/18 05/22/18 History Exam Vital signs: Vital Signs 05/22/18 08:50 05/22/18 09:00 05/22/18 09:13 Temperature 100 F H 100 F H Pulse Rate 123 H 128 H Respiratory Rate 20 28 H Blood Pressure 131/75 136/76 Pulse Oximetry 100 98 100 05/22/18 09:41 05/22/18 11:55 Temperature 100.5 F H Pulse Rate 114 H Respiratory Rate 24 Blood Pressure 133/73 Pulse Oximetry 100 97 Intake & Output 05/21/18 05/22/18 05/22/18 18:59 06:59 18:59 Weight 67.132 kg Narrative: GENERAL: Not in acute distress, nonverbal. HEAD: Atraumatic. EYES: PERRL, no jaundice, nonicteric ENT: Nose without bleeding NECK: Tracheostomy in place, with yellowish to clear secretions. CARDIOVASCULAR: Tachycardic, regular rhythm, no murmurs. RESPIRATORY: Clear to auscultation, poor effort, no wheezing. GASTROINTESTINAL: Abdomen soft, normal bowel sounds, non-tender, nondistended. PEG tube in place, no surrounding erythema. MUSCULOSKELETAL: Extremities without clubbing, cyanosis, or edema. No joint tendernes. No calf tenderness. Distal pulses intact, 2+ bilaterally. INTEGUMENTARY: Warm and dry, no edema. NEUROLOGICAL: Nonverbal, does not follow any commands, positive for contractures and bilateral foot drop. Results - Labs CBC & Chem 7: 05/24/18 04:34 05/24/18 04:34 Labs: Short CBC 05/22/18 Range/Units 09:04 WBC 10.2 (4.0-11.0) th/mm3 Hgb 15.9 (13.0-17.0) gm/dL Hct 47.6 (39.0-51.0) % Plt Count 237 (150-450) th/mm3 BMP 05/22/18 09:04 Sodium 142 Potassium 4.0 Chloride 105 Carbon Dioxide 28.6 BUN 14 Creatinine 0.81 Calcium 9.1 Liver Function 05/22/18 Range/Units 09:04 Total Bilirubin 0.3 (0.2-1.0) mg/dL AST 29 (15-37) U/L ALT 51 (12-78) U/L Alkaline Phosphatase 152 H (45-117) U/L Albumin 3.7 (3.4-5.0) g/dL Urine 05/22/18 Range/Units 09:30 Urine Color [place] (Yellw/Straw) Urine Clarity Hazy H (Clear) Urine pH 6.0 (5.0-8.5) Ur Specific [place] 1.029 (1.002-1.035) Urine Protein 30 H (Neg-Trace) mg/dL Urine Glucose (UA) Negative (Negative) mg/dL - Imaging Impressions Chest X-Ray 05/22/18 08:37 CONCLUSION: Minimal bibasilar densities likely atelectasis Caprini VTE Risk Assessment Caprini VTE Risk Assessment: Moderate/High Risk (score >= 2) Caprini Risk Assessment Model: Point Value = 1 Point Value = 2 Point Value = 3 Point Value = 5 Age 41-60 Minor surgery BMI > 25 kg/m2 Swollen legs Varicose veins or History of unexplained or recurrent spontaneous Oral contraceptives or hormone replacement Sepsis (< 1 month) Serious lung disease, including pneumonia (< 1 month) Abnormal pulmonary function Acute myocardial infarction Congestive heart failure (< 1 month) History of inflammatory bowel disease Medical patient at bed rest Age 61-74 Arthroscopic surgery Major open surgery (> 45 min) Laparoscopic surgery (> 45 min) Malignancy Confined to bed (> 72 hours) Immobilizing plaster cast Central venous access Age >= 75 History of VTE Family history of VTE Factor V Leiden Prothrombin [id number] Lupus anticoagulant Anticardiolipin antibodies Elevated serum homocysteine Heparin-induced thrombocytopenia Other congenital or acquired thrombophilia Stroke (< 1 month) Elective arthroplasty Hip, pelvis, or leg fracture Acute spinal cord injury (< 1 month) Prophylaxis Regimen: Total Risk Factor Score Risk Level Prophylaxis Regimen 0-1 Low Early ambulation 2 Moderate Order ONE of the following: *Sequential Compression Device (SCD) *Heparin 5000 units SQ BID 3-4 Higher Order ONE of the following medications: *Heparin 5000 units SQ TID *Enoxaparin/Lovenox 40 mg SQ daily (WT < 150 kg, CrCl > 30 mL/min) *Enoxaparin/Lovenox 30 mg SQ daily (WT < 150 kg, CrCl > 10-29 mL/min) *Enoxaparin/Lovenox 30 mg SQ BID (WT < 150 kg, CrCl > 30 mL/min) AND/OR *Sequential Compression Device (SCD) 5 or more Highest Order ONE of the following medications: *Heparin 5000 units SQ TID (Preferred with Epidurals) *Enoxaparin/Lovenox 40 mg SQ daily (WT < 150 kg, CrCl > 30 mL/min) *Enoxaparin/Lovenox 30 mg SQ daily (WT < 150 kg, CrCl > 10-29 mL/min) *Enoxaparin/Lovenox 30 mg SQ BID (WT < 150 kg, CrCl > 30 mL/min) AND *Sequential Compression Device (SCD) Assessment and Plan - Plan This is a 33-year-old male with history of anoxic brain injury, hypertension, diabetes and frequent pneumonia with drug-resistant organisms presenting to the hospital with pneumonia after failing outpatient treatment. Sepsis secondary to healthcare associated pneumonia-chest x-ray showed bibasilar densities, no leukocytosis but with low-grade fever, mild lactic acidosis, tachycardia and tachypnea. KUB showed sinus tachycardia, no ischemic changes. Patient has history of multidrug-resistant organisms from pneumonia including Proteus, Klebsiella, Pseudomonas and Acinetobacter. Patient status post 1 week of azithromycin. Patient responded with Zosyn in the past, will start on Zosyn and consult infectious disease. Check sputum culture, check blood culture. Repeat lactic acid. Acute on chronic respiratory failure-continue oxygen supplementation, on tracheostomy, trach care, duo nebs around the clock and as needed. History of seizures-continue phenytoin, phenytoin levels within normal limits Diabetes mellitus- Lovenox for DVT prophylaxis
[2018-05-22] MEDS ORDERED: Enoxaparin Inj 30 MG/0.3 ML Syringe SQ SCH (13:30)
[2018-05-22 14:42] LABS: Activated Partial Thrombo Time 26.4 sec (24.3-30.1); INR 1.2 Ratio
[2018-05-22 14:48] LABS: Prothrombin Time 11.8 sec (9.8-11.6)
[2018-05-22] MEDS ORDERED: Piperacil/Tazo 3.375 GM Premix 50 ML IV.SIG SCH (15:00)
[2018-05-22] MEDS: Dextrose 5%/NaCl 0.9% Inj 1,000 ML IV.CONT SCH (16:39)
--- NOTE | 2018-05-22 16:47 | P.CONID ---
History of Present Illness Service: ID Consult date: 05/22/18 Requesting Physician: Aditi Nazario Reason for Consult: pneumonia Primary Care Provider: Britton Samuels MD Chief Complaint: Pneumonia, failure of outpatient treatment History of Present Illness: 33 yo male with anoxic encephalopathy and unable to provide history History from mom @ b/s He is known to me from multiple prior hospitalsations with chronic trach apparently Rx'd with azithromax 3 wks ago presents today with 1 day h/o cough, excessive secretions with brownish discoloration and fever Mild leukocytosis with ANC in 9K Multiple prior hospitalisations including multiple PNA, H/o ESBL in sputum from December and XDRO PSAE Review of Systems unobtainable due to mental condition, unobtainable due to mental status PMFSH - History History Provided By: Family Member - Medical History Medical History: Medical History (Last Reviewed 07/19/18 @ 13:56 by Nannette Josue MD) Tracheostomy dependent (Acute) GERD (gastroesophageal reflux disease) (Acute) Pancreatitis (Acute) Diabetes mellitus (Acute) Dyslipidemia (Acute) HTN (hypertension) (Acute) Seizure (Acute) DVT (deep venous thrombosis) (Acute) Anoxic brain damage (Acute) - Surgical History Surgical History: Surgical History (Last Reviewed 07/19/18 @ 13:56 by Nannette Josue MD) PEG (percutaneous endoscopic gastrostomy) status (Acute) - Family History Family History: Family History (Last Updated 07/19/18 @ 13:56 by Nannette Josue MD) Other No pertinent family history - Social History I have reviewed the patient's Social History: Yes - Tobacco History Second Hand Smoke Exposure: No Tobacco Use In Past 30 Days: No Smoking Status: Never smoker - Alcohol History How Often Do You Have a Drink Containing Alcohol: Never - Substance Use History Substance History: No History of Abuse - Travel History Recent Travel in the [place] Within the Last 8 Weeks: No Recent Travel Out of the Country Within the Last 8 Weeks: No - Immunization History Tetanus Immunization: Unsure Hx Influenza Vaccine This Season: Unable to Assess Medications and Allergies Active Medications: Active Medications Acetaminophen (Tylenol) 650 mg PO Q4H PRN PRN Reason: Temp > 100.4 Al Hydroxide/Mg Hydroxide (Milk Of Magnesia Liq) 30 ml PO Q12H PRN PRN Reason: Mild Constipation Albuterol (Albuterol Neb (Prn)) 2.5 mg NEB Q2HR NEB PRN PRN Reason: SHORTNESS OF BREATH Albuterol (Duoneb Neb (Julian)) 1 ampul NEB Q6HR NEB [facility] Last Admin: 05/22/18 15:28 Dose: 1 ampul Bisacodyl (Dulcolax Supp) 10 mg RECTAL DAILY PRN PRN Reason: SEVERE CONSITIPATION Dextrose (D50w Vial) 50 ml IV.PUSH UNSCH PRN PRN Reason: PER HYPOGLYCEMIA PROTOCOL Enoxaparin Sodium (Lovenox Inj) 30 mg SQ Q24H JULIAN Glucagon (Glucagon Inj) 1 mg OTHER PRN PRN PRN Reason: for Hypoglycemia Protocol Dextrose/Sodium Chloride (D5w/Normal Saline Inj) 1,000 mls @ 84 mls/hr IV.CONT .[id number] [facility] Piperacillin/Tazobactam/Dextrose (Zosyn 3.375 Gm Premix) 50 mls @ 100 mls/hr IV.SIG Q6H JULIAN Insulin Human Regular (Novolin R Correctional Sugar Inj) 0 units SQ Q6HR [facility]; Protocol Ondansetron HCl (Zofran Inj) 4 mg IV.PUSH Q6H PRN PRN Reason: NAUSEA OR VOMITING Senna/Docusate Sodium (Shala-Colace) 1 tab PO BID [facility] Sennosides (Senokot) 17.2 mg PO Q12H PRN PRN Reason: Moderate Constipation Sodium Chloride (Ns Flush) 2 ml IV.FLUSH BID [facility] Sodium Chloride (Ns Flush) 2 ml IV.FLUSH PRN PRN PRN Reason: FLUSH AFTER USING IV ACCESS Allergies Allergy/AdvReac Type Severity Reaction Status Date / Time haloperidol AdvReac Severe Seizures Verified 06/09/18 09:58 *MDRO Multi-Drug Resistant AdvReac Unknown Dry Mucus Uncoded 06/09/18 09:58 Organism Membranes Home Medications Medication Instructions Recorded Confirmed Type apixaban [Eliquis] 5 mg FEEDING TUBE BID 05/22/18 06/26/18 History glycopyrrolate 1 mg FEEDING TUBE Q8H PRN 05/22/18 06/26/18 History hyoscyamine sulfate [Levsin] 0.25 mg FEEDING TUBE Q4H PRN 05/22/18 06/26/18 History levetiracetam 1,000 mg FEEDING TUBE Q12H 05/22/18 06/26/18 History loratadine [Claritin] 10 mg FEEDING TUBE DAILY 05/22/18 06/26/18 History Exam Vital signs: Vital Signs 05/22/18 08:50 05/22/18 09:00 05/22/18 09:13 Temperature 100 F H 100 F H Pulse Rate 123 H 128 H Respiratory Rate 20 28 H Blood Pressure 131/75 136/76 Pulse Oximetry 100 98 100 05/22/18 09:41 05/22/18 11:55 05/22/18 13:00 Temperature 100.5 F H Pulse Rate 114 H 110 H Respiratory Rate 24 18 Blood Pressure 133/73 136/85 Pulse Oximetry 100 97 100 05/22/18 14:35 05/22/18 15:23 05/22/18 15:25 Temperature 100.2 F H Pulse Rate 109 H Respiratory Rate 20 20 20 Blood Pressure 138/69 Pulse Oximetry 99 05/22/18 15:33 Temperature Pulse Rate 100 H Respiratory Rate 20 Blood Pressure Pulse Oximetry Intake & Output 05/21/18 05/22/18 05/22/18 18:59 06:59 18:59 Weight 67.132 kg - Constitutional mild distress (clenched teeth - per mom he does it when in pain), obese - Routine HEENT Exam Head: Present: normocephalic, atraumatic Eye: Present: EOMI, PERRL, conjunctivae pink ENT: Present: mucous membranes moist (drooling clear saliva), dentition normal - Routine Neck Exam Present: supple, full ROM, trachea midline Comments: trach in place with some secretions present - Routine Respiratory Exam Present: CTA bilaterally Comments: no accesory muscle use - Routine Cardiovascular Exam Present: RRR, S1, S2 Comments: no mumrums, rubs or gallops - Routine Abdominal Exam Present: soft, normoactive bowel sounds Comments: no reaction to palpation, not distended PEG in place - site OK - Routine Extremities Exam Comments: no cyanosis, no clubbing no edema b/l foot drop - Routine Skin Exam Present: intact, warm Comments: unresponsive, not following commands - Routine Neurological Exam Present: alert, motor deficit (@ baseline: spastic quadriparesis) - Routine Psychiatric Exam Present: unable to assess Results - Labs CBC & Chem 7: 05/31/18 12:52 05/31/18 12:52 Labs: Laboratory Results - last 24 hr 05/22/18 05/22/18 05/22/18 09:04 09:04 09:04 WBC 10.2 RBC 5.15 Hgb 15.9 Hct 47.6 MCV 92.4 MCH 31.0 MCHC 33.5 RDW 13.8 Plt Count 237 MPV 9.8 Neut % (Auto) 83.9 H Lymph % (Auto) 7.0 L [place] % (Auto) 8.8 H Eos % (Auto) 0.1 Baso % (Auto) 0.2 Neut # (Auto) 8.6 H Lymph # (Auto) 0.7 L Craig # (Auto) 0.9 Eos # (Auto) 0.0 Baso # (Auto) 0.0 WBC Differential . Differential Comment Auto diff final PT INR APTT Sodium 142 Potassium 4.0 Chloride 105 Carbon Dioxide 28.6 Anion Gap 8 BUN 14 Creatinine 0.81 Estimated GFR Greater than 89 Random Glucose 115 H Lactic Acid 2.8 H Calcium 9.1 Total Bilirubin 0.3 AST 29 ALT 51 Alkaline Phosphatase 152 H Total Protein 9.1 H Albumin 3.7 Urine Color Urine Clarity Urine pH Ur Specific [place] Urine Protein Urine Glucose (UA) Urine Ketones Urine Occult Blood Urine Nitrate Urine Bilirubin Urine Urobilinogen Ur Leukocyte Esterase Urine RBC Urine WBC Urine Mucus Micro UA Comment Urine Culture Comments Phenytoin 15.6 05/22/18 05/22/18 05/22/18 09:30 13:54 13:54 WBC RBC Hgb Hct MCV MCH MCHC RDW Plt Count MPV Neut % (Auto) Lymph % (Auto) Craig % (Auto) Eos % (Auto) Baso % (Auto) Neut # (Auto) Lymph # (Auto) Craig # (Auto) Eos # (Auto) Baso # (Auto) WBC Differential Differential Comment PT 11.8 H INR 1.2 APTT 26.4 Sodium Potassium Chloride Carbon Dioxide Anion Gap BUN Creatinine Estimated GFR Random Glucose Lactic Acid 1.9 Calcium Total Bilirubin AST ALT Alkaline Phosphatase Total Protein Albumin Urine Color [place] Urine Clarity Hazy H Urine pH 6.0 Ur Specific [place] 1.029 Urine Protein 30 H Urine Glucose (UA) Negative Urine Ketones Trace Urine Occult Blood Negative Urine Nitrate Negative Urine Bilirubin Negative Urine Urobilinogen 4 or greater Ur Leukocyte Esterase Negative Urine RBC 42 H Urine WBC 1 Urine Mucus Few H Micro UA Comment Culture not ind Urine Culture Comments Culture not ind Phenytoin 05/22/18 13:54 WBC RBC Hgb Hct MCV MCH MCHC RDW Plt Count MPV Neut % (Auto) Lymph % (Auto) [place] % (Auto) Eos % (Auto) Baso % (Auto) Neut # (Auto) Lymph # (Auto) Craig # (Auto) Eos # (Auto) Baso # (Auto) WBC Differential Differential Comment PT INR APTT Sodium Potassium Chloride Carbon Dioxide Anion Gap BUN Creatinine Estimated GFR Random Glucose Lactic Acid Cancelled Calcium Total Bilirubin AST ALT Alkaline Phosphatase Total Protein Albumin Urine Color Urine Clarity Urine pH Ur Specific [place] Urine Protein Urine Glucose (UA) Urine Ketones Urine Occult Blood Urine Nitrate Urine Bilirubin Urine Urobilinogen Ur Leukocyte Esterase Urine RBC Urine WBC Urine Mucus Micro UA Comment Urine Culture Comments Phenytoin - Imaging Impressions Chest X-Ray 05/22/18 08:37 CONCLUSION: Minimal bibasilar densities likely atelectasis Assessment and Plan - Plan Anoxic encephalopathry chronic trach Proabble early bronchopneumonia fever h/o MDRO change abx to preetio, meropenem kourtney Camacho
[2018-05-22] MEDS ORDERED: Vancomycin Consult Pharmacy 1 EACH OTHER SCH (16:55)
[2018-05-22] MEDS ORDERED: Vancomycin Inj 1,000 MG in Sodium Chlor 0.9% Inj 250 ML IV.SIG SCH (18:00)
[2018-05-22] MEDS: Insulin NovoLIN Regular Correctional Sugar Inj SQ SCH (18:07)
[2018-05-22] MEDS: Acetaminophen 325 MG Tablet PO PRN (19:41)
[2018-05-22] MEDS: Morphine Sulfate Inj 2 MG/ML Vial IV.PUSH PRN (20:27)
[2018-05-22] MEDS ORDERED: Metoprolol Inj 5 MG/5 ML Vial IV.PUSH ONE (21:41)
[2018-05-22] MEDS ORDERED: Metoprolol Inj 5 MG/5 ML Vial ONE (21:41)
[2018-05-22] MEDS ORDERED: Morphine Inj 4 MG/ML Vial IV.PUSH ONE (21:41)
[2018-05-22] MEDS: Senna/Docusate Sodium 8.6/50 MG Tablet PO SCH (23:01)
[2018-05-23] MEDS ORDERED: Vancomycin Inj 1 GM/200 ML PIGGYBACK IV.SIG SCH ×2 (02:00→05:00)
[2018-05-23] MEDS: Insulin NovoLIN Regular Correctional Sugar Inj SQ SCH ×4 (03:50→19:34)
[2018-05-23] MEDS: Morphine Sulfate Inj 2 MG/ML Vial IV.PUSH PRN ×4 (04:26→20:48)
[2018-05-23] MEDS: Dextrose 5%/NaCl 0.9% Inj 1,000 ML IV.CONT SCH ×3 (04:29→20:06)
[2018-05-23 06:02] LABS: Baso % (Auto) 0.3 % (0.0-2.0); Eos # (Auto) 0.1 th/mm3 (0.0-0.4); Eos % (Auto) 1.1 % (0.0-4.0); Hemoglobin 13.1 gm/dL (13.0-17.0); Lymph # (Auto) 1.1 th/mm3 (1.0-4.8); Lymph % (Auto) 15.3 % (9.0-44.0); Mean Corpuscular HGB Conc 33.7 % (32.0-36.0); Mean Corpuscular Hemoglobin 31.4 pg (27.0-34.0); Mean Corpuscular Volume 93.3 fL (80.0-100.0); Mean Platelet Volume 9.3 fL (7.0-11.0); Mono # (Auto) 0.9 th/mm3 (0.0-0.9); Mono % (Auto) 12.5 % (0.0-8.0); Neut # (Auto) 5.1 th/mm3 (1.8-7.7); Neut % (Auto) 70.8 % (16.0-70.0); Platelet Count 163 th/mm3 (150-450); Red Blood Count 4.18 mil/mm3 (4.50-5.90); Red Cell Distribution Width 13.7 % (11.6-17.2); White Blood Count 7.2 th/mm3 (4.0-11.0)
[2018-05-23 06:30] LABS: Alanine Aminotransferase 35 U/L (12-78); Alkaline Phosphatase 128 U/L (45-117); Anion Gap 9 meq/L (5-15); Aspartate Aminotransferase 18 U/L (15-37); Blood Urea Nitrogen 8 mg/dL (7-18); Calcium 8.5 mg/dL (8.5-10.1); Carbon Dioxide 25.6 meq/L (21.0-32.0); Chloride 110 meq/L (98-107); Glomerular Filtration Rate Greater Than 89 mL/min (>89); Glucose,Random 114 mg/dL (74-106); Potassium 3.4 meq/L (3.5-5.1); Sodium 145 meq/L (136-145); Total Protein 6.7 g/dL (6.4-8.2)
--- NOTE | 2018-05-23 09:36 | P.PN ---
Physical Exam Vital signs: Vital Signs 05/22/18 09:41 05/22/18 11:55 05/22/18 13:00 Temperature 100.5 F H Pulse Rate 114 H 110 H Respiratory Rate 24 18 Blood Pressure 133/73 136/85 Pulse Oximetry 100 97 100 05/22/18 14:35 05/22/18 15:23 05/22/18 15:25 Temperature 100.2 F H Pulse Rate 109 H Respiratory Rate 20 20 20 Blood Pressure 138/69 Pulse Oximetry 99 05/22/18 15:33 05/22/18 16:00 05/22/18 20:00 Temperature 98.7 F 100.8 F H Pulse Rate 100 H 108 H 116 H Respiratory Rate 20 20 16 Blood Pressure 141/84 H 121/67 Pulse Oximetry 99 98 05/22/18 20:57 05/22/18 22:14 05/23/18 00:00 Temperature 101.0 F H 98.8 F Pulse Rate 125 H 126 H 116 H Respiratory Rate 16 22 20 Blood Pressure 175/67 H 126/79 Pulse Oximetry 100 98 100 05/23/18 04:00 05/23/18 05:10 05/23/18 07:55 Temperature 98.8 F Pulse Rate 106 H Respiratory Rate 20 Blood Pressure 125/77 Pulse Oximetry 97 98 96 05/23/18 08:00 05/23/18 08:48 Temperature 100.4 F H Pulse Rate 121 H Respiratory Rate 16 Blood Pressure 151/89 H Pulse Oximetry 96 94 L Intake & Output 05/22/18 05/23/18 05/23/18 18:59 06:59 18:59 Intake Total 50 / 50 1150 / 1150 Output Total 400 / 400 Balance 49 / 49 750 / 750 Weight 67.132 kg 69 kg Intake: IV 50 / 50 1150 / 1150 D5W/Normal Saline Inj 1,000 ML 1000 / 1000 @ 84 mls/hr IV.CONT .[id number] SHAYNA Rx#:[id number] Merrem Inj 1,000 MG In NS Inj 100 / 100 100 ML @ 200 mls/hr IV.SIG Q8H SHAYNA Rx#:[id number] Zosyn 3.375 GM Premix 50 ML @ 50 / 50 100 mls/hr IV.SIG Q6H SHAYNA Rx#: [id number] Output: Stool / 1 Urine Amount (Catheter) 400 / 400 Indwelling Urethral Catheter 400 / 400 Other: Date of Last Bowel Movement 05/22/18 05/22/18 Narrative: Subjective: With copious secretions for shortness of breath. Nurse Sid at bedside suctioning the patient. Also the patient is with the seizures will do EEG, start Ativan. Might consider neurology consult. Physical exam: GENERAL: Not in acute distress, nonverbal. CARDIOVASCULAR: Tachycardic, regular rhythm, no murmurs. RESPIRATORY: Clear to auscultation, poor effort, no wheezing. GASTROINTESTINAL: Abdomen soft, normal bowel sounds, non-tender, nondistended. PEG tube in place, no surrounding erythema. MUSCULOSKELETAL: Extremities without clubbing, cyanosis, or edema. No joint tendernes. No calf tenderness. Distal pulses intact, 2+ bilaterally. INTEGUMENTARY: Warm and dry, no edema. NEUROLOGICAL: Nonverbal, does not follow any commands, positive for contractures and bilateral foot drop. Assessment and Plan This is a 33-year-old male with history of anoxic brain injury, hypertension, diabetes and frequent pneumonia with drug-resistant organisms presenting to the hospital with pneumonia after failing outpatient treatment. Sepsis secondary to healthcare associated pneumonia-chest x-ray showed bibasilar densities, no leukocytosis but with low-grade fever, mild lactic acidosis, tachycardia and tachypnea. KUB showed sinus tachycardia, no ischemic changes. Patient has history of multidrug-resistant organisms from pneumonia including Proteus, Klebsiella, Pseudomonas and Acinetobacter. Patient status post 1 week of azithromycin. Patient responded with Zosyn in the past. DC zosyn Consult infectious disease, appreciate recommendations. On IV abx per ID specialist recommendations meropenem and vanco Check sputum culture, check blood culture. Repeat lactic acid. Increased trach secretions. Respiratory therapy following. Add Levsin. Trach care, suction frequently. We might consider pulmonary consultation. Acute on chronic respiratory failure-continue oxygen supplementation, on tracheostomy, trach care, duo nebs around the clock and as needed. History of seizures-continue phenytoin, phenytoin levels within normal limits. Add Ativan Diabetes mellitus- Lovenox for DVT prophylaxis - Urinary Catheter Management Indwelling Urethral Catheter Cath placed during this visit: yes Reason for continuing: Terminally ill/Comfort care Insertion date: 05/22/18 Insertion time: 09:33 Results - Labs CBC & Chem 7: 05/23/18 05:26 05/23/18 05:26 Laboratory Results - last 24 hr 05/22/18 05/22/18 05/22/18 09:04 09:04 09:30 WBC RBC Hgb Hct MCV MCH MCHC RDW Plt Count MPV Neut % (Auto) Lymph % (Auto) [place] % (Auto) Eos % (Auto) Baso % (Auto) Neut # (Auto) Lymph # (Auto) [place] # (Auto) Eos # (Auto) Baso # (Auto) WBC Differential Differential Comment PT INR APTT Sodium 142 Potassium 4.0 Chloride 105 Carbon Dioxide 28.6 Anion Gap 8 BUN 14 Creatinine 0.81 Estimated GFR Greater than 89 POC Glucose Random Glucose 115 H Lactic Acid 2.8 H Calcium 9.1 Total Bilirubin 0.3 AST 29 ALT 51 Alkaline Phosphatase 152 H Total Protein 9.1 H Albumin 3.7 Urine Color [place] Urine Clarity Hazy H Urine pH 6.0 Ur Specific [place] 1.029 Urine Protein 30 H Urine Glucose (UA) Negative Urine Ketones Trace Urine Occult Blood Negative Urine Nitrate Negative Urine Bilirubin Negative Urine Urobilinogen 4 or greater Ur Leukocyte Esterase Negative Urine RBC 42 H Urine WBC 1 Urine Mucus Few H Micro UA Comment Culture not ind Urine Culture Comments Culture not ind Phenytoin 15.6 05/22/18 05/22/18 05/22/18 13:54 13:54 13:54 WBC RBC Hgb Hct MCV MCH MCHC RDW Plt Count MPV Neut % (Auto) Lymph % (Auto) [place] % (Auto) Eos % (Auto) Baso % (Auto) Neut # (Auto) Lymph # (Auto) [place] # (Auto) Eos # (Auto) Baso # (Auto) WBC Differential Differential Comment PT 11.8 H INR 1.2 APTT 26.4 Sodium Potassium Chloride Carbon Dioxide Anion Gap BUN Creatinine Estimated GFR POC Glucose Random Glucose Lactic Acid 1.9 Cancelled Calcium Total Bilirubin AST ALT Alkaline Phosphatase Total Protein Albumin Urine Color Urine Clarity Urine pH Ur Specific [place] Urine Protein Urine Glucose (UA) Urine Ketones Urine Occult Blood Urine Nitrate Urine Bilirubin Urine Urobilinogen Ur Leukocyte Esterase Urine RBC Urine WBC Urine Mucus Micro UA Comment Urine Culture Comments Phenytoin 05/22/18 05/22/18 05/23/18 17:55 19:41 05:26 WBC 7.2 RBC 4.18 L Hgb 13.1 D Hct 39.0 MCV 93.3 MCH 31.4 MCHC 33.7 RDW 13.7 Plt Count 163 D MPV 9.3 Neut % (Auto) 70.8 H Lymph % (Auto) 15.3 [place] % (Auto) 12.5 H Eos % (Auto) 1.1 Baso % (Auto) 0.3 Neut # (Auto) 5.1 Lymph # (Auto) 1.1 [place] # (Auto) 0.9 Eos # (Auto) 0.1 Baso # (Auto) 0.0 WBC Differential . Differential Comment Auto diff final PT INR APTT Sodium Potassium Chloride Carbon Dioxide Anion Gap BUN Creatinine Estimated GFR POC Glucose 101 104 Random Glucose Lactic Acid Calcium Total Bilirubin AST ALT Alkaline Phosphatase Total Protein Albumin Urine Color Urine Clarity Urine pH Ur Specific [place] Urine Protein Urine Glucose (UA) Urine Ketones Urine Occult Blood Urine Nitrate Urine Bilirubin Urine Urobilinogen Ur Leukocyte Esterase Urine RBC Urine WBC Urine Mucus Micro UA Comment Urine Culture Comments Phenytoin 05/23/18 05/23/18 05:26 07:51 WBC RBC Hgb Hct MCV MCH MCHC RDW Plt Count MPV Neut % (Auto) Lymph % (Auto) [place] % (Auto) Eos % (Auto) Baso % (Auto) Neut # (Auto) Lymph # (Auto) [place] # (Auto) Eos # (Auto) Baso # (Auto) WBC Differential Differential Comment PT INR APTT Sodium 145 Potassium 3.4 L Chloride 110 H Carbon Dioxide 25.6 Anion Gap 9 BUN 8 Creatinine 0.67 Estimated GFR Greater than 89 POC Glucose 128 H Random Glucose 114 H Lactic Acid Calcium 8.5 Total Bilirubin 0.3 AST 18 ALT 35 Alkaline Phosphatase 128 H Total Protein 6.7 D Albumin 3.0 L D Urine Color Urine Clarity Urine pH Ur Specific [place] Urine Protein Urine Glucose (UA) Urine Ketones Urine Occult Blood Urine Nitrate Urine Bilirubin Urine Urobilinogen Ur Leukocyte Esterase Urine RBC Urine WBC Urine Mucus Micro UA Comment Urine Culture Comments Phenytoin
[2018-05-23] MEDS ORDERED: Pharmacy Ordered Lab Info OTHER ONE (09:45)
[2018-05-23] MEDS ORDERED: Enoxaparin Inj 40 MG/0.4 ML Syringe SQ SCH (10:00)
[2018-05-23] MEDS: Senna/Docusate Sodium 8.6/50 MG Tablet PO SCH ×2 (10:27→20:51)
--- NOTE | 2018-05-23 12:33 | P.DIET ---
Nutritional Evaluation Type of nutrition evaluation: initial Nutrition consult regarding: Tube Feeding Subjective Subjective Comments: Nonverbal; resides in [facility] Objective - Diagnosis Sepsis, Pneumonia - Objective [place] body weight: 70 kg % IBW: 96 Body Weight Used for Calculations: Actual (67.132kg used for assessment here) Energy Needs - Lower Range (kCal/kg): 25 Energy Needs - Upper Range (kCal/kg): 30 Lower Limit kCal/kg (kCals): 1,678 Upper Limit kCal/kg (kCals): 2,014 Lower Limit Protein Factor (Grams per Kg): 1.1 Upper Limit Protein Factor (Grams per Kg): 1.4 Lower Protein Needs (Protein): 74 Upper Protein Needs (Protein): 94 Dietitian Reviewed in Medical Record: Curent medications, Intake & Output, Labs , Medical history, Tube feeding Diet Order: TF'ing ONLY: Vital 1.5 @ goal rate 90ml/hr Objective Comments: PMH Includes: Anoxic brain injury w/aphasia and Seizure dO, s/p trach and PEG tube placement; positive for contractures and bilateral foot drop; DM, HTN, frequent pneumonia w/drug resistant organisms Meds Include: Novolin SSI, Zofran LBM 05/22 Assessment Assessment: Pt is at nutritional risk r/t diagnosis and need for TF'ing for nutritional support. For TF'ing w/Vital 1.5, Rec goal rate @ 50ml/hr to offer 1800 kcal, 76.6g Protein and 912ml free water. Free water flushes per MD. Noted pt receives Dilantin and this med is not on the Mar, at time of this entry. TF'ing goal rate will need to be reassessed when Dilantin is re-initiated d/t TF'ing is held 1-hr before and 1-hr after Dilantin is administered. Labs reviewed- monitor glucose, pt on SSI. Wt changes noted. Additional Recs to follow r/t clinical course. Recommendations: 1. For TF'ing w/Vital 1.5, Rec goal rate @ 50ml/hr 2. Free water flushes per MD 3.TF'ing goal rate will need to be reassessed when Dilantin is re-initiated d/t TF'ing is held 1-hr before and 1-hr after Dilantin is administered 4.Additional Recs to follow r/t clinical course Dietitian to Monitor: Lab values, Electrolytes, Glucose level, Intake & Output, Tube feeding tolerance, Weight change, Medical course
[2018-05-23] MEDS ORDERED: Vancomycin Inj 1,000 MG in Sodium Chlor 0.9% Inj 250 ML IV.SIG SCH (13:00)
[2018-05-23] MEDS: Metoprolol Inj 5 MG/5 ML Vial IV.PUSH PRN (15:17)
[2018-05-23] MEDS ORDERED: Magnesium Oxide 400 MG Tablet PO ONE ×2 (15:36→15:42)
[2018-05-23] MEDS ORDERED: Potassium Bicarbonate 25 MEQ Effervescent Tablet PO ONE (15:41)
--- NOTE | 2018-05-23 15:52 | ECG ---
Date Performed: 05/22/2018 Time Performed: 10:37:32 PTAGE: 33 years EKG: SINUS TACHYCARDIA INDETERMINATE AXIS LOW LIMB LEAD VOLTAGE Since previous tracing, no signi ficant change noted ABNORMAL ECG PREVIOUS TRACING : 01/01/2018 12.05 DOCTOR: Ruben Sethi Interpretating Date/Time 05/23/2018 15:51:01
[2018-05-23] MEDS ORDERED: Fosphenytoin Inj 1,000 MGPE in Sodium Chlor 0.9% Inj 50 ML IV.SIG ONE (17:23)
[2018-05-23] MEDS: dilTIAZem 30 MG Tablet PO SCH (20:29)
[2018-05-23] MEDS: Phenytoin Sodium 100 MG Capsule G-TUBE SCH (20:51)
[2018-05-23] MEDS: Famotidine 20 MG Tablet PO SCH (20:51)
[2018-05-23] MEDS: Vancomycin Inj 1,250 MG in Sodium Chlor 0.9% Inj 250 ML IV.SIG SCH (23:02)
[2018-05-24] MEDS: dilTIAZem 30 MG Tablet PO SCH ×5 (00:17→21:29)
[2018-05-24] MEDS: Insulin NovoLIN Regular Correctional Sugar Inj SQ SCH ×4 (00:18→20:48)
[2018-05-24] MEDS: Morphine Sulfate Inj 2 MG/ML Vial IV.PUSH PRN ×4 (02:33→21:27)
[2018-05-24] MEDS: Vancomycin Inj 1,250 MG in Sodium Chlor 0.9% Inj 250 ML IV.SIG SCH ×3 (06:00→21:28)
[2018-05-24 07:01] LABS: Baso % (Auto) 0.4 % (0.0-2.0); Eos # (Auto) 0.1 th/mm3 (0.0-0.4); Eos % (Auto) 1.8 % (0.0-4.0); Hematocrit 38.1 % (39.0-51.0); Hemoglobin 12.9 gm/dL (13.0-17.0); Lymph % (Auto) 18.9 % (9.0-44.0); Mean Corpuscular HGB Conc 33.8 % (32.0-36.0); Mean Corpuscular Hemoglobin 31.6 pg (27.0-34.0); Mean Corpuscular Volume 93.5 fL (80.0-100.0); Mono # (Auto) 0.9 th/mm3 (0.0-0.9); Mono % (Auto) 15.4 % (0.0-8.0); Neut # (Auto) 3.5 th/mm3 (1.8-7.7); Neut % (Auto) 63.5 % (16.0-70.0); Platelet Count 153 th/mm3 (150-450); Red Blood Count 4.07 mil/mm3 (4.50-5.90); Red Cell Distribution Width 13.5 % (11.6-17.2); White Blood Count 5.6 th/mm3 (4.0-11.0)
[2018-05-24 07:12] LABS: Anion Gap 10 meq/L (5-15); Blood Urea Nitrogen 9 mg/dL (7-18); Calcium 8.6 mg/dL (8.5-10.1); Carbon Dioxide 26.8 meq/L (21.0-32.0); Chloride 108 meq/L (98-107); Glomerular Filtration Rate Greater Than 89 mL/min (>89); Glucose,Random 85 mg/dL (74-106); Magnesium 2.1 mg/dL (1.5-2.5); Phenytoin (Dilantin) 26.4 mcg/mL (10.0-20.0); Potassium 3.4 meq/L (3.5-5.1); Sodium 145 meq/L (136-145)
[2018-05-24] MEDS: amLODIPine 10 MG Tablet PO SCH (09:44)
[2018-05-24] MEDS: Famotidine 20 MG Tablet PO SCH ×2 (09:45→21:29)
[2018-05-24] MEDS: Senna/Docusate Sodium 8.6/50 MG Tablet PO SCH ×2 (09:45→21:28)
[2018-05-24] MEDS: Phenytoin Sodium 100 MG Capsule G-TUBE SCH ×2 (09:45→21:28)
--- NOTE | 2018-05-24 09:48 | P.CONNEU ---
History of Present Illness Service: Neurology Primary Care Provider: Britton Samuels MD Chief Complaint: Pneumonia, failure of outpatient treatment History of Present Illness: 33-year-old with a history of anoxic brain injury. Neurology consult for possible seizure activity. Seen by neurology January 2018 and felt to have more myoclonic induced involuntary movements related to anoxia placed on Keppra. EEG was performed which was negative for seizure activity. Review of Systems unobtainable due to mental status PMFSH - History History Provided By: Family Member - Medical History Medical History: Medical History (Last Updated 05/22/18 @ 13:11 by Aditi Nazario MD) Anoxic brain damage DVT (deep venous thrombosis) Diabetes mellitus Dyslipidemia GERD (gastroesophageal reflux disease) HTN (hypertension) Pancreatitis Seizure Tracheostomy dependent - Surgical History Surgical History: Surgical History (Last Updated 05/22/18 @ 13:11 by Aditi Nazario MD) PEG (percutaneous endoscopic gastrostomy) status - Tobacco History Second Hand Smoke Exposure: No Tobacco Use In Past 30 Days: No Smoking Status: Never smoker - Alcohol History How Often Do You Have a Drink Containing Alcohol: Never - Substance Use History Substance History: No History of Abuse - Travel History Recent Travel in the [place] Within the Last 8 Weeks: No Recent Travel Out of the Country Within the Last 8 Weeks: No - Immunization History Tetanus Immunization: Unsure Hx Influenza Vaccine This Season: Unable to Assess Medications and Allergies Active Medications: Active Medications Acetaminophen (Tylenol) 650 mg PO Q4H PRN PRN Reason: Temp > 100.4 Last Admin: 05/22/18 19:41 Dose: 650 mg Al Hydroxide/Mg Hydroxide (Milk Of Magndemetria Liq) 30 ml PO Q12H PRN PRN Reason: Mild Constipation Albuterol (Albuterol Neb (Prn)) 2.5 mg NEB Q2HR NEB PRN PRN Reason: SHORTNESS OF BREATH Albuterol (Duoneb Neb (Julian)) 1 ampul NEB Q6HR NEB JULIAN Last Admin: 05/24/18 03:57 Dose: 1 ampul Amlodipine Besylate (Norvasc) 10 mg PO DAILY JULIAN Apixaban (Eliquis) 5 mg PO BID JULIAN Last Admin: 05/23/18 20:51 Dose: 5 mg Baclofen (Lioresal) 20 mg PO Q8H JULIAN Last Admin: 05/24/18 06:30 Dose: 20 mg Bisacodyl (Dulcolax Supp) 10 mg RECTAL DAILY PRN PRN Reason: SEVERE CONSITIPATION Dextrose (D50w Vial) 50 ml IV.PUSH UNSCH PRN PRN Reason: PER HYPOGLYCEMIA PROTOCOL Diltiazem HCl (Cardizem) 30 mg PO QID [facility] Last Admin: 05/24/18 00:17 Dose: 30 mg Famotidine (Pepcid) 20 mg PO BID [facility] Last Admin: 05/23/18 20:51 Dose: 20 mg Glucagon (Glucagon Inj) 1 mg OTHER PRN PRN PRN Reason: for Hypoglycemia Protocol Hyoscyamine (Levsin) 0.25 mg G-TUBE Q4H PRN PRN Reason: trach/secretions Last Admin: 05/23/18 23:00 Dose: 0.25 mg Dextrose/Sodium Chloride (D5w/Normal Saline Inj) 1,000 mls @ 84 mls/hr IV.CONT .[id number] [facility] Last Admin: 05/23/18 20:06 Dose: 84 mls/hr Pharmacy Profile Note (Vancomycin Consult Pharmacy) 0 mls @ 0 mls/hr OTHER UNSCH [facility] Meropenem 1,000 mg/ Sodium (Chloride) 100 mls @ 200 mls/hr IV.SIG Q8H [facility] Last Infusion: 05/24/18 04:32 Dose: 100 mls/hr Vancomycin HCl 1,250 mg/ (Sodium Chloride) 262.5 mls @ 250 mls/hr IV.SIG Q8H [facility] Last Admin: 05/24/18 06:00 Dose: Not Given Insulin Human Regular (Novolin R Correctional Sugar Inj) 0 units SQ Q6HR [facility]; Protocol Last Admin: 05/24/18 06:00 Dose: Not Given Lorazepam (Ativan Inj) 1 mg IV.PUSH Q2H PRN PRN Reason: seizures Last Admin: 05/24/18 04:24 Dose: 1 mg Metoprolol Tartrate (Lopressor Inj) 5 mg IV.PUSH Q6H PRN PRN Reason: HR sustained > 110 Last Admin: 05/23/18 15:17 Dose: 5 mg Miscellaneous Information ([facility] Ordered Lab Info) 0 each OTHER ONCE ONE Stop: 05/25/18 05:46 Morphine Sulfate (Morphine Inj) 2 mg IV.PUSH Q4H PRN PRN Reason: PAIN 6-10 Last Admin: 05/24/18 02:33 Dose: 2 mg Ondansetron HCl (Zofran Inj) 4 mg IV.PUSH Q6H PRN PRN Reason: NAUSEA OR VOMITING Phenytoin Sodium (Dilantin) 200 mg G-TUBE BID [facility] Last Admin: 05/23/18 20:51 Dose: 200 mg Senna/Docusate Sodium (Shala-Colace) 1 tab PO BID [facility] Last Admin: 05/23/18 20:51 Dose: 1 tab Sennosides (Senokot) 17.2 mg PO Q12H PRN PRN Reason: Moderate Constipation Sodium Chloride (Ns Flush) 2 ml IV.FLUSH BID [facility] Last Admin: 05/23/18 20:52 Dose: Not Given Sodium Chloride (Ns Flush) 2 ml IV.FLUSH PRN PRN PRN Reason: FLUSH AFTER USING IV ACCESS Allergies Allergy/AdvReac Type Severity Reaction Status Date / Time haloperidol AdvReac Severe Seizures Verified 05/22/18 09:41 *MDRO Multi-Drug Resistant AdvReac Unknown Dry Mucus Uncoded 05/22/18 09:41 Organism Membranes Home Medications Medication Instructions Recorded Confirmed Type amlodipine [Norvasc] 10 mg PO DAILY 05/22/18 05/22/18 History apixaban [Eliquis] 5 mg PO BID 05/22/18 05/22/18 History baclofen 20 mg PO Q8H 05/22/18 05/22/18 History famotidine 20 mg PO BID 05/22/18 05/22/18 History glycopyrrolate 1 mg PO Q8H PRN 05/22/18 05/22/18 History hyoscyamine sulfate [Levsin] 0.25 mg PO Q4H PRN 05/22/18 05/22/18 History ipratropium-albuterol 3 ml INHALATION Q4H 05/22/18 05/22/18 History levetiracetam 1,000 mg PO Q12H 05/22/18 05/22/18 History loratadine [Claritin] 10 mg PO DAILY 05/22/18 05/22/18 History lorazepam 1 mg/kg IM Q6HR PRN 05/22/18 05/22/18 History lorazepam [Ativan] 0.5 mg FEEDING TUBE DAILY 05/22/18 05/22/18 History lorazepam [Ativan] 0.5 mg FEEDING TUBE Q4HR PRN 05/22/18 05/22/18 History lorazepam [Ativan] 1 mg PO Q4HR PRN 05/22/18 05/22/18 History metoprolol tartrate 25 mg PO BID 05/22/18 05/22/18 History metoprolol tartrate 25 mg PO Q8H PRN 05/22/18 05/22/18 History multivitamin with minerals 5 ml PO DAILY 05/22/18 05/22/18 History oxycodone 5 mg PO Q6H PRN 05/22/18 05/22/18 History phenytoin 200 mg G-TUBE BID 05/22/18 05/22/18 History potassium chloride 20 meq PO BID 05/22/18 05/22/18 History Exam Vital signs: Vital Signs 05/23/18 12:00 05/23/18 16:00 05/23/18 20:00 Temperature 98.1 F 101.4 F H 97.7 F Pulse Rate 109 H 120 H 122 H Respiratory Rate 16 18 22 Blood Pressure 139/84 170/91 H 124/83 Pulse Oximetry 96 100 05/23/18 20:50 05/23/18 21:11 05/24/18 00:00 Temperature 98.4 F Pulse Rate 109 H 106 H Respiratory Rate 20 20 20 Blood Pressure 117/62 Pulse Oximetry 99 100 05/24/18 03:57 05/24/18 04:12 05/24/18 08:00 Temperature 98.3 F Pulse Rate 100 H 81 Respiratory Rate 19 18 Blood Pressure 119/79 Pulse Oximetry 99 98 Intake & Output 05/23/18 05/24/18 05/24/18 18:59 06:59 18:59 Intake Total 1580 / 1580 1350.5 / 1350.5 Output Total 600 / 600 1000 / 1000 Balance 980 / 980 350.5 / 350.5 Weight 68 kg Intake: IV 1000 / 1000 542.5 / 542.5 D5W/Normal Saline Inj 1,000 ML 1000 / 1000 @ 84 mls/hr IV.CONT .[id number] [facility] Rx#:[id number] Cerebyx Inj 1,000 MGPE In NS 70 / 70 Inj 50 ML @ 280 mls/hr IV.SIG ONCE ONE Rx#:[id number] Merrem Inj 1,000 MG In NS Inj 210 / 210 100 ML @ 200 mls/hr IV.SIG Q8H [facility] Rx#:[id number] Vancomycin Inj 1,250 MG In NS 262.5 / 262.5 Inj 250 ML @ 250 mls/hr IV.SIG Q8H [facility] Rx#:[id number] Tube Feeding 580 / 580 808 / 808 Output: Urine Amount (Catheter) 600 / 600 1000 / 1000 Indwelling Urethral Catheter 600 / 600 1000 / 1000 Other: Date of Last Bowel Movement 05/23/18 05/23/18 # Incontinent Bowel Movements 2 Narrative: GENERAL: Alert, NAD. SKIN: Warm and dry. HEAD: Normocephalic. EYES: No scleral icterus. No injection or drainage. NECK: Supple, trachea midline. No JVD or lymphadenopathy. CARDIOVASCULAR: Regular rate and rhythm RESPIRATORY: Breath sounds equal bilaterally. No accessory muscle use. GASTROINTESTINAL: Abdomen soft, non-tender, nondistended. MUSCULOSKELETAL: No cyanosis, or edema. BACK: Nontender without obvious deformity. No CVA tenderness. Neurology: - Constitutional no acute distress - Routine HEENT Exam Head: Present: normocephalic Results - Labs CBC & Chem 7: 05/24/18 04:34 05/24/18 04:34 Labs: Laboratory Results - last 24 hr 05/23/18 05/23/18 05/23/18 12:32 14:27 17:08 WBC RBC Hgb Hct MCV MCH MCHC RDW Plt Count MPV Neut % (Auto) Lymph % (Auto) [place] % (Auto) Eos % (Auto) Baso % (Auto) Neut # (Auto) Lymph # (Auto) [place] # (Auto) Eos # (Auto) Baso # (Auto) WBC Differential Differential Comment Sodium Potassium Chloride Carbon Dioxide Anion Gap BUN Creatinine Estimated GFR POC Glucose 117 H 103 Random Glucose Calcium Phosphorus Magnesium Vancomycin Trough 7.2 Phenytoin 05/23/18 05/24/18 05/24/18 21:04 04:34 04:34 WBC 5.6 RBC 4.07 L Hgb 12.9 L Hct 38.1 L MCV 93.5 MCH 31.6 MCHC 33.8 RDW 13.5 Plt Count 153 MPV 10.0 Neut % (Auto) 63.5 Lymph % (Auto) 18.9 [place] % (Auto) 15.4 H Eos % (Auto) 1.8 Baso % (Auto) 0.4 Neut # (Auto) 3.5 Lymph # (Auto) 1.0 [place] # (Auto) 0.9 Eos # (Auto) 0.1 Baso # (Auto) 0.0 WBC Differential . Differential Comment Auto diff final Sodium 145 Potassium 3.4 L Chloride 108 H Carbon Dioxide 26.8 Anion Gap 10 BUN 9 Creatinine 0.54 L Estimated GFR Greater than 89 POC Glucose 108 Random Glucose 85 Calcium 8.6 Phosphorus 2.0 L Magnesium 2.1 Vancomycin Trough Phenytoin 26.4 H
--- NOTE | 2018-05-24 10:03 | P.PN ---
Physical Exam Vital signs: Vital Signs 05/23/18 12:00 05/23/18 16:00 05/23/18 20:00 Temperature 98.1 F 101.4 F H 97.7 F Pulse Rate 109 H 120 H 122 H Respiratory Rate 16 18 22 Blood Pressure 139/84 170/91 H 124/83 Pulse Oximetry 96 100 05/23/18 20:50 05/23/18 21:11 05/24/18 00:00 Temperature 98.4 F Pulse Rate 109 H 106 H Respiratory Rate 20 20 20 Blood Pressure 117/62 Pulse Oximetry 99 100 05/24/18 03:57 05/24/18 04:12 05/24/18 08:00 Temperature 98.3 F Pulse Rate 100 H 81 Respiratory Rate 19 18 Blood Pressure 119/79 Pulse Oximetry 99 98 Intake & Output 05/23/18 05/24/18 05/24/18 18:59 06:59 18:59 Intake Total 1580 / 1580 1350.5 / 1350.5 Output Total 600 / 600 1000 / 1000 Balance 980 / 980 350.5 / 350.5 Weight 68 kg Intake: IV 1000 / 1000 542.5 / 542.5 D5W/Normal Saline Inj 1,000 ML 1000 / 1000 @ 84 mls/hr IV.CONT .[id number] [facility] Rx#:[id number] Cerebyx Inj 1,000 MGPE In NS 70 / 70 Inj 50 ML @ 280 mls/hr IV.SIG ONCE ONE Rx#:[id number] Merrem Inj 1,000 MG In NS Inj 210 / 210 100 ML @ 200 mls/hr IV.SIG Q8H [facility] Rx#:[id number] Vancomycin Inj 1,250 MG In NS 262.5 / 262.5 Inj 250 ML @ 250 mls/hr IV.SIG Q8H [facility] Rx#:[id number] Tube Feeding 580 / 580 808 / 808 Output: Urine Amount (Catheter) 600 / 600 1000 / 1000 Indwelling Urethral Catheter 600 / 600 1000 / 1000 Other: Date of Last Bowel Movement 05/23/18 05/23/18 # Incontinent Bowel Movements 2 Narrative: Subjective: Less seizures seen by neurology. Patient appears improved today family his mother. Attentive very pleasant at bedside. With less secretions today, trach change by respiratory therapist. Heart rate better controlled. Does not appear in acute distress at this time. Physical exam: GENERAL: Not in acute distress, nonverbal. CARDIOVASCULAR: Tachycardic, regular rhythm, no murmurs. RESPIRATORY: Clear to auscultation, poor effort, no wheezing. GASTROINTESTINAL: Abdomen soft, normal bowel sounds, non-tender, nondistended. PEG tube in place, no surrounding erythema. MUSCULOSKELETAL: Extremities without clubbing, cyanosis, or edema. No joint tendernes. No calf tenderness. Distal pulses intact, 2+ bilaterally. INTEGUMENTARY: Warm and dry, no edema. NEUROLOGICAL: Nonverbal, does not follow any commands, positive for contractures and bilateral foot drop. Assessment and Plan This is a 33-year-old male with history of anoxic brain injury, hypertension, diabetes and frequent pneumonia with drug-resistant organisms presenting to the hospital with pneumonia after failing outpatient treatment. Sepsis secondary to healthcare associated pneumonia-chest x-ray showed bibasilar densities, no leukocytosis but with low-grade fever, mild lactic acidosis, tachycardia and tachypnea. KUB showed sinus tachycardia, no ischemic changes. Patient has history of multidrug-resistant organisms from pneumonia including Proteus, Klebsiella, Pseudomonas and Acinetobacter. Patient status post 1 week of azithromycin. Patient responded with Zosyn in the past. DC zosyn Consult infectious disease, appreciate recommendations. On IV abx per ID specialist recommendations meropenem and vanco Check sputum culture, check blood culture. Repeat lactic acid. Noted with Increased trach secretions 05/23. Respiratory therapy following. Added Levsin. Trach care, suction frequently. Pulmonary consultation follows with Dr Lew. Trach changed 05/24 Acute on chronic respiratory failure-continue oxygen supplementation, on tracheostomy, trach care, duo nebs around the clock and as needed. Seizures-continue phenytoin, phenytoin levels within normal limits. Added Ativan. Neurology consulted , appreciate recommendations Diabetes mellitus- Lovenox for DVT prophylaxis Discussed with the nurse, mother at bedside - Urinary Catheter Management Indwelling Urethral Catheter Cath placed during this visit: yes Reason for continuing: Terminally ill/Comfort care Insertion date: 05/22/18 Insertion time: 09:33 Results - Labs CBC & Chem 7: 05/24/18 04:34 05/24/18 04:34 Laboratory Results - last 24 hr 05/23/18 05/23/18 05/23/18 12:32 14:27 17:08 WBC RBC Hgb Hct MCV MCH MCHC RDW Plt Count MPV Neut % (Auto) Lymph % (Auto) [place] % (Auto) Eos % (Auto) Baso % (Auto) Neut # (Auto) Lymph # (Auto) [place] # (Auto) Eos # (Auto) Baso # (Auto) WBC Differential Differential Comment Sodium Potassium Chloride Carbon Dioxide Anion Gap BUN Creatinine Estimated GFR POC Glucose 117 H 103 Random Glucose Calcium Phosphorus Magnesium Vancomycin Trough 7.2 Phenytoin 05/23/18 05/24/18 05/24/18 21:04 04:34 04:34 WBC 5.6 RBC 4.07 L Hgb 12.9 L Hct 38.1 L MCV 93.5 MCH 31.6 MCHC 33.8 RDW 13.5 Plt Count 153 MPV 10.0 Neut % (Auto) 63.5 Lymph % (Auto) 18.9 [place] % (Auto) 15.4 H Eos % (Auto) 1.8 Baso % (Auto) 0.4 Neut # (Auto) 3.5 Lymph # (Auto) 1.0 [place] # (Auto) 0.9 Eos # (Auto) 0.1 Baso # (Auto) 0.0 WBC Differential . Differential Comment Auto diff final Sodium 145 Potassium 3.4 L Chloride 108 H Carbon Dioxide 26.8 Anion Gap 10 BUN 9 Creatinine 0.54 L Estimated GFR Greater than 89 POC Glucose 108 Random Glucose 85 Calcium 8.6 Phosphorus 2.0 L Magnesium 2.1 Vancomycin Trough Phenytoin 26.4 H Microbiology 05/23/18 05:10 Sputum - Tracheal Aspirate Gram Stain - Final 05/22/18 13:54 Blood - Peripheral Aerobic Blood Culture - Preliminary No growth in 1 day 05/22/18 13:54 Blood - Peripheral Anaerobic Blood Culture - Preliminary No growth in 1 day 05/22/18 11:07 Blood - Peripheral Aerobic Blood Culture - Preliminary No growth in 1 day 05/22/18 11:07 Blood - Peripheral Anaerobic Blood Culture - Preliminary No growth in 1 day
[2018-05-24] MEDS: Dextrose 5%/NaCl 0.9% Inj 1,000 ML IV.CONT SCH ×3 (13:00→22:04)
[2018-05-25] MEDS: Insulin NovoLIN Regular Correctional Sugar Inj SQ SCH ×4 (02:28→18:49)
[2018-05-25] MEDS: Dextrose 5%/NaCl 0.9% Inj 1,000 ML IV.CONT SCH ×2 (02:31→12:33)
[2018-05-25] MEDS: Morphine Sulfate Inj 2 MG/ML Vial IV.PUSH PRN ×4 (03:03→22:32)
[2018-05-25] MEDS: Vancomycin Inj 1,250 MG in Sodium Chlor 0.9% Inj 250 ML IV.SIG SCH (05:38)
[2018-05-25] MEDS ORDERED: Pharmacy Ordered Lab Info OTHER ONE (05:45)
[2018-05-25 06:09] LABS: Baso % (Auto) 0.4 % (0.0-2.0); Eos # (Auto) 0.1 th/mm3 (0.0-0.4); Eos % (Auto) 3.9 % (0.0-4.0); Hematocrit 36.1 % (39.0-51.0); Hemoglobin 12.1 gm/dL (13.0-17.0); Lymph % (Auto) 30.2 % (9.0-44.0); Mean Corpuscular HGB Conc 33.5 % (32.0-36.0); Mean Corpuscular Hemoglobin 31.4 pg (27.0-34.0); Mean Platelet Volume 9.7 fL (7.0-11.0); Mono # (Auto) 0.5 th/mm3 (0.0-0.9); Mono % (Auto) 16.5 % (0.0-8.0); Neut # (Auto) 1.6 th/mm3 (1.8-7.7); Platelet Count 136 th/mm3 (150-450); Red Blood Count 3.84 mil/mm3 (4.50-5.90); Red Cell Distribution Width 13.9 % (11.6-17.2); White Blood Count 3.2 th/mm3 (4.0-11.0)
[2018-05-25 06:31] LABS: Anion Gap 8 meq/L (5-15); Blood Urea Nitrogen 7 mg/dL (7-18); Calcium 8.2 mg/dL (8.5-10.1); Carbon Dioxide 28.1 meq/L (21.0-32.0); Chloride 111 meq/L (98-107); Glomerular Filtration Rate Greater Than 89 mL/min (>89); Glucose,Random 99 mg/dL (74-106); Potassium 3.5 meq/L (3.5-5.1); Sodium 147 meq/L (136-145)
[2018-05-25 06:44] LABS: Vancomycin,Trough 18.1 mcg/mL (5.0-10.0)
--- NOTE | 2018-05-25 08:31 | MB ---
cc: Saji Cho MD DATE: 05/24/2018 REQUESTING PHYSICIAN: Dr. Shannon Collado. REASON FOR CONSULTATION: Evaluation for respiratory failure. HISTORY OF PRESENT ILLNESS: Mr. Barroso is a 33-year-old black male with a history of anoxic encephalopathy. The patient was sent from shelter with shortness of breath, cough, excessive secretion of brownish to yellow, thick mucus from the tracheostomy tube. He was worked up in the hospital. His WBC showed white count 15.6, hemoglobin 12.9, hematocrit 38.1, MCV 93, platelet count 153. Sodium 140, potassium 3.4, chloride 108, CO2 26, BUN 9, creatinine 0.54. His chest x-ray shows minimal bibasilar densities, likely atelectasis. The patient is unresponsive and cannot give me any information. PAST MEDICAL HISTORY: As per record is significant for history of anoxic encephalopathy, sepsis, hypertension, diabetes mellitus. MEDICATIONS: He is currently taking albuterol nebulizer treatment, amlodipine 10 mg a day, Eliquis 5 mg twice a day, diltiazem 30 mg four times a day, famotidine 20 mg twice a day, Levsin 0.25 mg p.r.n., insulin coverage, Lorazepam 1 mg q. __ hours p.r.n. for seizure, meropenem 1 g q. 8 hours, Zofran p.r.n, morphine p.r.n., vancomycin IV. ALLERGIES: HALOPERIDOL FAMILY HISTORY: Not available . PHYSICAL EXAMINATION: GENERAL: Well-built, well-nourished male, unresponsive. He has tracheostomy tube in place. VITAL SIGNS: His blood pressure 109/65, heart rate 104, respirations 16, temperature 98.4. HEENT: He has a tracheostomy tube in place, thick mucus secretion. NECK: Supple. JVD not raised. CHEST: Equal air entry bilaterally. No rhonchi. HEART: S1, S2 normal. ABDOMEN: He has PEG tube in place. EXTREMITIES: He has contractures. IMPRESSION: 1. Chronic respiratory failure. 2. Status post tracheostomy. 3. Seizure disorder. 4. Anoxic encephalopathy. 5. Basal infiltrate with atelectasis. PLAN: We will continue abx, aerosol treatment, Levsin p.r.n. Trach suctions. Continue antibiotic per ID. Neurology is also following the patient. Futher treatment will depend on the course in the hospital. Thank you, Dr. Shannon Collado, for this consult. MD GREG Foreman/SAUL , 05:47 PM , 07:02 PM GUILLERMO
[2018-05-25] MEDS: Phenytoin Sodium 100 MG Capsule G-TUBE SCH (09:08)
[2018-05-25] MEDS: amLODIPine 10 MG Tablet PO SCH (09:08)
[2018-05-25] MEDS: Senna/Docusate Sodium 8.6/50 MG Tablet PO SCH ×2 (09:08→22:00)
[2018-05-25] MEDS: dilTIAZem 30 MG Tablet PO SCH ×4 (09:08→21:59)
[2018-05-25] MEDS: Famotidine 20 MG Tablet PO SCH ×2 (09:08→21:59)
--- NOTE | 2018-05-25 11:27 | XR ---
EXAM DATE: 05/25/2018 11:16 AM EDT AGE/SEX: 33 years / Male INDICATIONS: Short of breath. CLINICAL DATA: This is the patient's subsequent encounter. Patient reports that signs and symptoms h ave been present for 1 week and indicates a pain score of Nonresponsive. MEDICAL/SURGICAL HISTORY: . Myocardial infarction. Anoxic brain injury, Seizures, Chronic trach , Aphasia, DVT, HTN, HLD,Diabetes, Pancreatitis, GERD . . Tracheostomy, PEG tube placement. COMPARISON: Chest x-ray 05/22/2018. FINDINGS: A single AP view of the chest demonstrates breathing motion artifact. Questionable bibasilar consolid ation. No effusions. Heart is at the upper limits of normal in terms of size. Tracheostomy tube obser eber. CONCLUSION: Study limited by breathing motion artifact. Concern for bibasilar consolidation. Electronically signed by: Ernst Goodman MD 05/25/2018 11:25 AM EDT
--- NOTE | 2018-05-25 12:04 | P.PNID ---
Subjective Remarks: He grew out schmitt R pseudomonas less prominent secretions today afebrile WBC is low, ANC 1600 no new problems Antibiotics: meropenem vancomycin Allergies/Adverse Reactions: Allergies haloperidol Adverse Reaction (Severe, Verified 05/22/18 09:41) Seizures *MDRO Multi-Drug Resistant Organism Adverse Reaction (Unknown, Uncoded 05/22/18 09:41) Dry Mucus Membranes MRSA (sputum) - 04/25/16 & 05/23/16 MRSA PCR Screen POSITIVE - 04/25/2016 ESBL+E.Coli (blood-05/22/16) Objective Vital Signs 05/24/18 12:59 05/24/18 15:51 05/24/18 16:00 Temperature 98.4 F Pulse Rate 104 H Respiratory Rate 16 Blood Pressure 109/65 Pulse Oximetry 100 100 100 05/24/18 16:20 05/24/18 20:00 05/24/18 20:55 Temperature 98.9 F Pulse Rate 80 89 73 Respiratory Rate 16 20 17 Blood Pressure 110/57 L Pulse Oximetry 100 99 100 05/25/18 00:00 05/25/18 03:44 05/25/18 04:00 Temperature 98.8 F 98.9 F Pulse Rate 69 68 77 Respiratory Rate 20 16 18 Blood Pressure 91/46 L 97/55 L Pulse Oximetry 100 100 05/25/18 08:00 05/25/18 08:23 05/25/18 08:24 Temperature 98.5 F Pulse Rate 72 67 Respiratory Rate 18 20 Blood Pressure 124/53 L Pulse Oximetry 100 98 Intake & Output 05/24/18 05/25/18 05/25/18 18:59 06:59 18:59 Intake Total 800 / 800 3245.0 / 3245.0 362.5 / 362.5 Output Total 700 / 700 580 / 580 Balance 100 / 100 2665.0 / 2665.0 362.5 / 362.5 Weight 68 kg 69.5 kg Intake: IV 100 / 100 2625.0 / 2625.0 362.5 / 362.5 D5W/Normal Saline Inj 1,000 ML 2000 / 2000 @ 84 mls/hr IV.CONT .[id number] [facility] Rx#:[id number] Merrem Inj 1,000 MG In NS Inj 100 / 100 100 / 100 100 / 100 100 ML @ 200 mls/hr IV.SIG Q8H [facility] Rx#:[id number] Vancomycin Inj 1,250 MG In NS 525.0 / 525.0 262.5 / 262.5 Inj 250 ML @ 250 mls/hr IV.SIG Q8H [facility] Rx#:[id number] Tube Feeding 650 / 650 500 / 500 Tube Irrigant 50 / 50 120 / 120 Output: Urine Amount (Catheter) 700 / 700 580 / 580 Indwelling Urethral Catheter 700 / 700 580 / 580 Other: Date of Last Bowel Movement 05/23/18 05/25/18 # Incontinent Bowel Movements 1 Weight On Admission 69 kg 05/22/18 13:54 Blood - Peripheral Aerobic Blood Culture - Preliminary No growth in 3 days 05/22/18 13:54 Blood - Peripheral Anaerobic Blood Culture - Preliminary No growth in 3 days 05/22/18 11:07 Blood - Peripheral Aerobic Blood Culture - Preliminary No growth in 3 days 05/22/18 11:07 Blood - Peripheral Anaerobic Blood Culture - Preliminary No growth in 3 days 05/23/18 05:10 Sputum - Tracheal Aspirate Gram Stain - Final 05/23/18 05:10 Sputum - Tracheal Aspirate Sputum Culture - Preliminary Pseudomonas aeruginosa Multidrug Resistant gram negative rods Lab - Hematology Results 05/24/18 05/25/18 04:34 04:50 WBC 5.6 3.2 L RBC 4.07 L 3.84 L Hgb 12.9 L 12.1 L Hct 38.1 L 36.1 L MCV 93.5 94.0 MCH 31.6 31.4 MCHC 33.8 33.5 RDW 13.5 13.9 Plt Count 153 136 L MPV 10.0 9.7 Neut % (Auto) 63.5 49.0 Lymph % (Auto) 18.9 30.2 [place] % (Auto) 15.4 H 16.5 H Eos % (Auto) 1.8 3.9 Baso % (Auto) 0.4 0.4 Neut # (Auto) 3.5 1.6 L Lymph # (Auto) 1.0 1.0 [place] # (Auto) 0.9 0.5 Eos # (Auto) 0.1 0.1 Baso # (Auto) 0.0 0.0 WBC Differential . . Differential Comment Auto diff final Auto diff final Lab - Chemistry Results 05/23/18 05/23/18 05/23/18 12:32 17:08 21:04 Sodium Potassium Chloride Carbon Dioxide Anion Gap BUN Creatinine Estimated GFR POC Glucose 117 H 103 108 Random Glucose Calcium Phosphorus Magnesium 05/24/18 05/24/18 05/24/18 04:34 13:52 19:44 Sodium 145 Potassium 3.4 L Chloride 108 H Carbon Dioxide 26.8 Anion Gap 10 BUN 9 Creatinine 0.54 L Estimated GFR Greater than 89 POC Glucose 88 89 Random Glucose 85 Calcium 8.6 Phosphorus 2.0 L Magnesium 2.1 05/24/18 05/25/18 05/25/18 23:14 04:46 04:50 Sodium 147 H Potassium 3.5 Chloride 111 H Carbon Dioxide 28.1 Anion Gap 8 BUN 7 Creatinine 0.52 L Estimated GFR Greater than 89 POC Glucose 77 104 Random Glucose 99 Calcium 8.2 L Phosphorus Magnesium Imaging: ITS Impressions Chest X-Ray 05/25/18 09:57 CONCLUSION: Study limited by breathing motion artifact. Concern for bibasilar consolidation. Physical Exam: GENERAL: NAD SKIN: Warm and dry. HEAD: Atraumatic. Normocephalic. EYES: Pupils equal and round. No scleral icterus. No injection or drainage. ENT: No nasal bleeding or discharge. Mucous membranes pink and moist. NECK: Trachea midline. Trach in place + secretions CARDIOVASCULAR: Regular rate and rhythm. NO murmurs refill is brisk RESPIRATORY: No accessory muscle use. Scattered rhonchi to auscultation. Breath sounds equal bilaterally. GASTROINTESTINAL: Abdomen soft, non-tender, nondistended. Hepatic and splenic margins not palpable. PRG in place - [place] MUSCULOSKELETAL: Extremities without clubbing, cyanosis, or edema. No obvious deformities. NEUROLOGICAL: Awake unresponsive, posturing - at baseline PSYCHIATRIC: unable to assess Assessment and Plan - Plan Bronchopneumonia - MDRO PSAE change abx to avycaz will follow additional sensitivities kourtney oconnell microlab
[2018-05-25] MEDS: Ceftazidime/Avibactam Inj 2.5 GM in Sodium Chlor 0.9% Inj 50 ML IV.SIG SCH ×2 (14:18→22:00)
--- NOTE | 2018-05-25 17:54 | P.PNPL ---
Subjective Interval history: 33 YOAA male with anoxic encephalopathy, Rf, trach Sp MDR Pseudomonas On Trach collar Small amount of trach secretions Physical Exam Vital signs: Vital Signs 05/24/18 20:00 05/24/18 20:55 05/25/18 00:00 Temperature 98.9 F 98.8 F Pulse Rate 89 73 69 Respiratory Rate 20 17 20 Blood Pressure 110/57 L 91/46 L Pulse Oximetry 99 100 100 05/25/18 03:44 05/25/18 04:00 05/25/18 08:00 Temperature 98.9 F 98.5 F Pulse Rate 68 77 72 Respiratory Rate 16 18 18 Blood Pressure 97/55 L 124/53 L Pulse Oximetry 100 100 05/25/18 08:23 05/25/18 08:24 05/25/18 12:00 Temperature 98.9 F Pulse Rate 67 76 Respiratory Rate 20 20 Blood Pressure 108/62 Pulse Oximetry 98 100 05/25/18 16:00 05/25/18 16:24 05/25/18 16:25 Temperature 98.5 F Pulse Rate 73 72 Respiratory Rate 20 18 Blood Pressure 105/61 Pulse Oximetry 100 100 Intake & Output 05/24/18 05/25/18 05/25/18 18:59 06:59 18:59 Intake Total 800 / 800 3245.0 / 3245.0 1362.5 / 1362.5 Output Total 700 / 700 580 / 580 Balance 100 / 100 2665.0 / 2665.0 1362.5 / 1362.5 Weight 68 kg 69.5 kg Intake: IV 100 / 100 2625.0 / 2625.0 1362.5 / 1362.5 D5W/Normal Saline Inj 1,000 ML 2000 / 2000 1000 / 1000 @ 84 mls/hr IV.CONT .[id number] [facility] Rx#:[id number] Merrem Inj 1,000 MG In NS Inj 100 / 100 100 / 100 100 / 100 100 ML @ 200 mls/hr IV.SIG Q8H [facility] Rx#:[id number] Vancomycin Inj 1,250 MG In NS 525.0 / 525.0 262.5 / 262.5 Inj 250 ML @ 250 mls/hr IV.SIG Q8H [facility] Rx#:[id number] Tube Feeding 650 / 650 500 / 500 Tube Irrigant 50 / 50 120 / 120 Output: Urine Amount (Catheter) 700 / 700 580 / 580 Indwelling Urethral Catheter 700 / 700 580 / 580 Other: Date of Last Bowel Movement 05/23/18 05/25/18 # Incontinent Bowel Movements 1 Weight On Admission 69 kg GENERAL: WBWN Male, unresponsive SKIN: Warm and dry. HEAD: Normocephalic. EYES: No scleral icterus. No injection or drainage. NECK: Supple, trachea midline. No JVD or lymphadenopathy. Has Trach CARDIOVASCULAR: Regular rate and rhythm without murmurs, gallops, or rubs. RESPIRATORY: Breath sounds equal bilaterally. No accessory muscle use. GASTROINTESTINAL: Abdomen soft, non-tender, nondistended. Has PEG MUSCULOSKELETAL: No cyanosis, or edema. Contractures BACK: Nontender without obvious deformity. No CVA tenderness. - Urinary Catheter Management Indwelling Urethral Catheter Cath placed during this visit: yes Reason for continuing: Terminally ill/Comfort care Insertion date: 05/22/18 Insertion time: 09:33 Assessment and Plan - Plan IMPRESSION: 1. Chronic respiratory failure. 2. Status post tracheostomy. 3. Seizure disorder. 4. Anoxic encephalopathy. 5. Basal infiltrate with atelectasis. PLAN: Cont trach collar Trach care Aerosol nebs Abx per ID Tube feeding.
--- NOTE | 2018-05-25 20:16 | P.PN ---
Physical Exam Vital signs: Vital Signs 05/24/18 20:55 05/25/18 00:00 05/25/18 03:44 Temperature 98.8 F Pulse Rate 73 69 68 Respiratory Rate 17 20 16 Blood Pressure 91/46 L Pulse Oximetry 100 100 05/25/18 04:00 05/25/18 08:00 05/25/18 08:23 Temperature 98.9 F 98.5 F Pulse Rate 77 72 67 Respiratory Rate 18 18 20 Blood Pressure 97/55 L 124/53 L Pulse Oximetry 100 100 05/25/18 08:24 05/25/18 12:00 05/25/18 16:00 Temperature 98.9 F 98.5 F Pulse Rate 76 73 Respiratory Rate 20 20 Blood Pressure 108/62 105/61 Pulse Oximetry 98 100 100 05/25/18 16:24 05/25/18 16:25 Temperature Pulse Rate 72 Respiratory Rate 18 Blood Pressure Pulse Oximetry 100 Intake & Output 05/25/18 05/25/18 05/26/18 06:59 18:59 06:59 Intake Total 3245.0 / 3245.0 1942.5 / 1942.5 Output Total 580 / 580 1400 / 1400 Balance 2665.0 / 2665.0 542.5 / 542.5 Weight 69.5 kg Intake: IV 2625.0 / 2625.0 1362.5 / 1362.5 D5W/Normal Saline Inj 1,000 ML 2000 / 2000 1000 / 1000 @ 84 mls/hr IV.CONT .[id number] [facility] Rx#:[id number] Merrem Inj 1,000 MG In NS Inj 100 / 100 100 / 100 100 ML @ 200 mls/hr IV.SIG Q8H [facility] Rx#:[id number] Vancomycin Inj 1,250 MG In NS 525.0 / 525.0 262.5 / 262.5 Inj 250 ML @ 250 mls/hr IV.SIG Q8H [facility] Rx#:[id number] Tube Feeding 500 / 500 530 / 530 Tube Irrigant 120 / 120 50 / 50 Output: Urine Amount (Catheter) 580 / 580 1400 / 1400 Indwelling Urethral Catheter 580 / 580 1400 / 1400 Other: Date of Last Bowel Movement 05/25/18 05/25/18 # Bowel Movements 1 # Incontinent Bowel Movements 1 Narrative: Subjective: 33 YOAA male with anoxic encephalopathy, Rf, trach, MDR Pseudomonas Improving, mother at bedside. With less secretions, no tachycardia. Does not appear in acute distress at this time. Physical exam: GENERAL: Not in acute distress, nonverbal. CARDIOVASCULAR: Regular rhythm, no murmurs. RESPIRATORY: Clear to auscultation, poor effort, no wheezing. GASTROINTESTINAL: Abdomen soft, normal bowel sounds, non-tender, nondistended. PEG tube in place, no surrounding erythema. MUSCULOSKELETAL: Extremities without clubbing, cyanosis, or edema. NEUROLOGICAL: Nonverbal, does not follow any commands, positive for contractures and bilateral foot drop. Assessment and Plan This is a 33-year-old male with history of anoxic brain injury, hypertension, diabetes and frequent pneumonia with drug-resistant organisms presenting to the hospital with pneumonia after failing outpatient treatment. Patient with MDR Pseudomonas ID ff Sepsis secondary to healthcare associated pneumonia-chest x-ray showed bibasilar densities, no leukocytosis but with low-grade fever, mild lactic acidosis, tachycardia and tachypnea. KUB showed sinus tachycardia, no ischemic changes. Patient has a history of multidrug-resistant organisms from pneumonia including Proteus, Klebsiella, Pseudomonas and Acinetobacter. Patient status post 1 week of azithromycin. Patient responded with Zosyn in the past. DC zosyn. Consulted infectious disease, appreciate recommendations. On IV abx per ID specialist recommendations meropenem and vanco , discussed with Dr Joselo FLANAGAN patient with schmitt resistant Pseudomonas, Plan to repeat CXR change abx to avycazm follow additional sensitivities Noted with Increased trach secretions 05/23. Respiratory therapy following. Added Levsin. Trach care, suction frequently. Pulmonary consultation follows with Dr Lew. Trach to be changed per pulm recommendations Acute on chronic respiratory failure-continue oxygen supplementation, on tracheostomy, trach care, duo nebs around the clock and as needed. Seizures-continue phenytoin, phenytoin levels within normal limits. Added Ativan. Neurology consulted , appreciate recommendations. On Diabetes mellitus- Lovenox for DVT prophylaxis Discussed with the nurse, mother at bedside - Urinary Catheter Management Indwelling Urethral Catheter Cath placed during this visit: yes Reason for continuing: Terminally ill/Comfort care Insertion date: 05/22/18 Insertion time: 09:33 Results - Labs CBC & Chem 7: 05/25/18 04:50 05/25/18 04:50 Laboratory Results - last 24 hr 05/24/18 05/25/18 05/25/18 23:14 04:46 04:50 WBC 3.2 L RBC 3.84 L Hgb 12.1 L Hct 36.1 L MCV 94.0 MCH 31.4 MCHC 33.5 RDW 13.9 Plt Count 136 L MPV 9.7 Neut % (Auto) 49.0 Lymph % (Auto) 30.2 [place] % (Auto) 16.5 H Eos % (Auto) 3.9 Baso % (Auto) 0.4 Neut # (Auto) 1.6 L Lymph # (Auto) 1.0 [place] # (Auto) 0.5 Eos # (Auto) 0.1 Baso # (Auto) 0.0 WBC Differential . Differential Comment Auto diff final Sodium Potassium Chloride Carbon Dioxide Anion Gap BUN Creatinine Estimated GFR POC Glucose 77 104 Random Glucose Calcium Vancomycin Trough 05/25/18 05/25/18 04:50 17:35 WBC RBC Hgb Hct MCV MCH MCHC RDW Plt Count MPV Neut % (Auto) Lymph % (Auto) [place] % (Auto) Eos % (Auto) Baso % (Auto) Neut # (Auto) Lymph # (Auto) [place] # (Auto) Eos # (Auto) Baso # (Auto) WBC Differential Differential Comment Sodium 147 H Potassium 3.5 Chloride 111 H Carbon Dioxide 28.1 Anion Gap 8 BUN 7 Creatinine 0.52 L Estimated GFR Greater than 89 POC Glucose 105 Random Glucose 99 Calcium 8.2 L Vancomycin Trough 18.1 H Microbiology 05/23/18 05:10 Sputum - Tracheal Aspirate Gram Stain - Final 05/23/18 05:10 Sputum - Tracheal Aspirate Sputum Culture - Preliminary Pseudomonas aeruginosa Multidrug Resistant gram negative rods 05/22/18 13:54 Blood - Peripheral Aerobic Blood Culture - Preliminary No growth in 3 days 05/22/18 13:54 Blood - Peripheral Anaerobic Blood Culture - Preliminary No growth in 3 days 05/22/18 11:07 Blood - Peripheral Aerobic Blood Culture - Preliminary No growth in 3 days 05/22/18 11:07 Blood - Peripheral Anaerobic Blood Culture - Preliminary No growth in 3 days - Imaging Impressions Chest X-Ray 05/25/18 09:57 CONCLUSION: Study limited by breathing motion artifact. Concern for bibasilar consolidation.
[2018-05-26] MEDS: Dextrose 5%/NaCl 0.9% Inj 1,000 ML IV.CONT SCH ×2 (03:03→13:33)
[2018-05-26] MEDS: Insulin NovoLIN Regular Correctional Sugar Inj SQ SCH ×3 (03:14→12:27)
[2018-05-26] MEDS: Morphine Sulfate Inj 2 MG/ML Vial IV.PUSH PRN ×3 (04:34→16:50)
[2018-05-26 05:51] LABS: Baso % (Auto) 0.3 % (0.0-2.0); Eos # (Auto) 0.1 th/mm3 (0.0-0.4); Eos % (Auto) 3.4 % (0.0-4.0); Hemoglobin 12.9 gm/dL (13.0-17.0); Lymph # (Auto) 1.2 th/mm3 (1.0-4.8); Lymph % (Auto) 33.4 % (9.0-44.0); Mean Corpuscular HGB Conc 33.2 % (32.0-36.0); Mean Corpuscular Hemoglobin 31.3 pg (27.0-34.0); Mean Corpuscular Volume 94.2 fL (80.0-100.0); Mean Platelet Volume 10.2 fL (7.0-11.0); Mono # (Auto) 0.6 th/mm3 (0.0-0.9); Neut # (Auto) 1.8 th/mm3 (1.8-7.7); Neut % (Auto) 47.9 % (16.0-70.0); Platelet Count 169 th/mm3 (150-450); Red Blood Count 4.14 mil/mm3 (4.50-5.90); Red Cell Distribution Width 13.3 % (11.6-17.2); White Blood Count 3.7 th/mm3 (4.0-11.0)
[2018-05-26 06:13] LABS: Anion Gap 7 meq/L (5-15); Blood Urea Nitrogen 6 mg/dL (7-18); Calcium 8.2 mg/dL (8.5-10.1); Carbon Dioxide 30.4 meq/L (21.0-32.0); Chloride 108 meq/L (98-107); Glomerular Filtration Rate Greater Than 89 mL/min (>89); Glucose,Random 85 mg/dL (74-106); Potassium 3.8 meq/L (3.5-5.1); Sodium 145 meq/L (136-145)
[2018-05-26] MEDS: Ceftazidime/Avibactam Inj 2.5 GM in Sodium Chlor 0.9% Inj 50 ML IV.SIG SCH ×3 (06:41→22:00)
[2018-05-26] MEDS: Senna/Docusate Sodium 8.6/50 MG Tablet PO SCH (09:38)
[2018-05-26] MEDS: dilTIAZem 30 MG Tablet PO SCH ×4 (09:38→21:32)
[2018-05-26] MEDS: Famotidine 20 MG Tablet PO SCH ×2 (09:38→21:33)
[2018-05-26] MEDS: amLODIPine 10 MG Tablet PO SCH (09:38)
--- NOTE | 2018-05-26 14:26 | P.PN ---
Physical Exam Vital signs: Vital Signs 05/25/18 16:00 05/25/18 16:24 05/25/18 16:25 Temperature 98.5 F Pulse Rate 73 72 Respiratory Rate 20 18 Blood Pressure 105/61 Pulse Oximetry 100 100 05/25/18 19:00 05/25/18 20:00 05/25/18 21:19 Temperature 98.4 F Pulse Rate 79 85 85 Respiratory Rate 20 18 Blood Pressure 116/93 H Pulse Oximetry 100 05/25/18 23:00 05/26/18 00:00 05/26/18 03:00 Temperature 98.6 F Pulse Rate 85 83 70 Respiratory Rate 18 Blood Pressure 118/66 Pulse Oximetry 99 05/26/18 04:00 05/26/18 05:10 05/26/18 08:00 Temperature 98.2 F 98.3 F Pulse Rate 58 L 59 L 68 Respiratory Rate 16 16 18 Blood Pressure 123/71 136/76 Pulse Oximetry 99 100 100 05/26/18 08:30 05/26/18 12:00 05/26/18 13:00 Temperature 98.6 F Pulse Rate 100 H 77 Respiratory Rate 22 18 Blood Pressure 118/71 Pulse Oximetry 100 100 100 05/26/18 13:33 Temperature Pulse Rate 64 Respiratory Rate Blood Pressure Pulse Oximetry Intake & Output 05/25/18 05/26/18 05/26/18 18:59 06:59 18:59 Intake Total 1992.5 / 1991.5 2310 / 2310 1050 / 1050 Output Total 1400 / 1400 650 / 650 351 / 351 Balance 592.5 / 592.5 1660 / 1660 699 / 699 Weight 69 kg Intake: IV 1412.5 / 1412.5 1050 / 1050 1050 / 1050 D5W/Normal Saline Inj 1,000 ML 1000 / 1000 1000 / 1000 1000 / 1000 @ 84 mls/hr IV.CONT .[id number] [facility] Rx#:[id number] Avycaz Inj 2.5 GM In NS Inj 50 50 / 50 50 / 50 50 / 50 ML @ 25 mls/hr IV.SIG Q8H [facility] Rx#:[id number] Merrem Inj 1,000 MG In NS Inj 100 / 100 100 ML @ 200 mls/hr IV.SIG Q8H [facility] Rx#:[id number] Vancomycin Inj 1,250 MG In NS 262.5 / 262.5 Inj 250 ML @ 250 mls/hr IV.SIG Q8H [facility] Rx#:[id number] Tube Feeding 530 / 530 960 / 960 Tube Irrigant 50 / 50 300 / 300 Output: Urine 650 / 650 350 / 350 Stool 1 / Urine Amount (Catheter) 1399 Indwelling Urethral Catheter 1399 Other: Date of Last Bowel Movement 05/25/18 05/26/18 # Bowel Movements 1 2 Narrative: Subjective: 33 YOAA male with anoxic encephalopathy, Rf, trach, MDR Pseudomonas Malfunctioning feding tube consult IR With less secretions, no tachycardia. Does not appear in acute distress at this time. No cough. Afebrile. no seizures Physical exam: GENERAL: Not in acute distress, nonverbal. CARDIOVASCULAR: Regular rhythm, no murmurs. RESPIRATORY: Clear to auscultation, poor effort, no wheezing. GASTROINTESTINAL: Abdomen soft, normal bowel sounds, non-tender, nondistended. PEG tube in place, no surrounding erythema. MUSCULOSKELETAL: Extremities without clubbing, cyanosis, or edema. NEUROLOGICAL: Nonverbal, does not follow any commands, positive for contractures and bilateral foot drop. Assessment and Plan This is a 33-year-old male with history of anoxic brain injury, hypertension, diabetes and frequent pneumonia with drug-resistant organisms presenting to the hospital with pneumonia after failing outpatient treatment. Patient with MDR Pseudomonas ID ff Sepsis secondary to healthcare associated pneumonia-chest x-ray showed bibasilar densities, no leukocytosis but with low-grade fever, mild lactic acidosis, tachycardia and tachypnea. KUB showed sinus tachycardia, no ischemic changes. Patient has a history of multidrug-resistant organisms from pneumonia including Proteus, Klebsiella, Pseudomonas and Acinetobacter. Patient status post 1 week of azithromycin. Patient responded with Zosyn in the past. DC zosyn. Consulted infectious disease, appreciate recommendations. On IV abx per ID specialist recommendations meropenem and vanco , discussed with Dr Joselo FLANAGAN patient with schmitt resistant Pseudomonas, Plan to repeat CXR change abx to avycazm follow additional sensitivities Noted with Increased trach secretions 05/23. Respiratory therapy following. Added Levsin. Trach care, suction frequently. Pulmonary consultation follows with Dr Lew. Trach to be changed per pulm recommendations Acute on chronic respiratory failure-continue oxygen supplementation, on tracheostomy, trach care, duo nebs around the clock and as needed. Seizures-continue phenytoin, phenytoin levels within normal limits. Added Ativan. Neurology consulted , appreciate recommendations. On Malfunctioning feeding tube G/J tibe . Flushed attempts by the nurse. Consult IR Diabetes mellitus- Lovenox for DVT prophylaxis Discussed with the nurse - Urinary Catheter Management Indwelling Urethral Catheter Cath placed during this visit: yes, but has since been removed by the nurse Reason for continuing: Terminally ill/Comfort care Insertion date: 05/26/18 Insertion time: 10:00 Removal date: 05/26/18 Removal time: 10:00 Results - Labs CBC & Chem 7: 05/26/18 04:37 05/26/18 04:37 Laboratory Results - last 24 hr 05/25/18 05/26/18 05/26/18 17:35 01:44 04:37 WBC 3.7 L RBC 4.14 L Hgb 12.9 L Hct 39.0 MCV 94.2 MCH 31.3 MCHC 33.2 RDW 13.3 Plt Count 169 MPV 10.2 Neut % (Auto) 47.9 Lymph % (Auto) 33.4 [place] % (Auto) 15.0 H Eos % (Auto) 3.4 Baso % (Auto) 0.3 Neut # (Auto) 1.8 Lymph # (Auto) 1.2 [place] # (Auto) 0.6 Eos # (Auto) 0.1 Baso # (Auto) 0.0 WBC Differential . Differential Comment Auto diff final Sodium Potassium Chloride Carbon Dioxide Anion Gap BUN Creatinine Estimated GFR POC Glucose 105 87 Random Glucose Calcium 05/26/18 05/26/18 05/26/18 04:37 06:34 12:26 WBC RBC Hgb Hct MCV MCH MCHC RDW Plt Count MPV Neut % (Auto) Lymph % (Auto) [place] % (Auto) Eos % (Auto) Baso % (Auto) Neut # (Auto) Lymph # (Auto) [place] # (Auto) Eos # (Auto) Baso # (Auto) WBC Differential Differential Comment Sodium 145 Potassium 3.8 Chloride 108 H Carbon Dioxide 30.4 Anion Gap 7 BUN 6 L Creatinine 0.57 L Estimated GFR Greater than 89 POC Glucose 112 H 125 H Random Glucose 85 Calcium 8.2 L Microbiology 05/22/18 13:54 Blood - Peripheral Aerobic Blood Culture - Preliminary No growth in 4 days 05/22/18 13:54 Blood - Peripheral Anaerobic Blood Culture - Preliminary No growth in 4 days 05/22/18 11:07 Blood - Peripheral Aerobic Blood Culture - Preliminary No growth in 4 days 05/22/18 11:07 Blood - Peripheral Anaerobic Blood Culture - Preliminary No growth in 4 days 05/23/18 05:10 Sputum - Tracheal Aspirate Gram Stain - Final 05/23/18 05:10 Sputum - Tracheal Aspirate Sputum Culture - Preliminary Pseudomonas aeruginosa Multidrug Resistant gram negative rods
--- NOTE | 2018-05-26 17:09 | P.PNPL ---
Subjective Interval history: 33 YOAA male with anoxic encephalopathy, Rf, trach Sp MDR Pseudomonas On Trach collar Small amount of trach secretions No Fever Physical Exam Vital signs: Vital Signs 05/25/18 19:00 05/25/18 20:00 05/25/18 21:19 Temperature 98.4 F Pulse Rate 79 85 85 Respiratory Rate 20 18 Blood Pressure 116/93 H Pulse Oximetry 100 05/25/18 23:00 05/26/18 00:00 05/26/18 03:00 Temperature 98.6 F Pulse Rate 85 83 70 Respiratory Rate 18 Blood Pressure 118/66 Pulse Oximetry 99 05/26/18 04:00 05/26/18 05:10 05/26/18 08:00 Temperature 98.2 F 98.3 F Pulse Rate 58 L 59 L 68 Respiratory Rate 16 16 18 Blood Pressure 123/71 136/76 Pulse Oximetry 99 100 100 05/26/18 08:30 05/26/18 12:00 05/26/18 13:00 Temperature 98.6 F Pulse Rate 100 H 77 Respiratory Rate 22 18 Blood Pressure 118/71 Pulse Oximetry 100 100 100 05/26/18 13:33 Temperature Pulse Rate 64 Respiratory Rate Blood Pressure Pulse Oximetry Intake & Output 05/25/18 05/26/18 05/26/18 18:59 06:59 18:59 Intake Total 1992.5 / 1992.5 2310 / 2310 1100 / 1100 Output Total 1400 / 1400 650 / 650 351 / 351 Balance 592.5 / 592.5 1660 / 1660 749 / 749 Weight 69 kg Intake: IV 1412.5 / 1412.5 1050 / 1050 1100 / 1100 D5W/Normal Saline Inj 1,000 ML 1000 / 1000 1000 / 1000 1000 / 1000 @ 84 mls/hr IV.CONT .[id number] [facility] Rx#:[id number] Avycaz Inj 2.5 GM In NS Inj 50 50 / 50 50 / 50 100 / 100 ML @ 25 mls/hr IV.SIG Q8H [facility] Rx#:[id number] Merrem Inj 1,000 MG In NS Inj 100 / 100 100 ML @ 200 mls/hr IV.SIG Q8H [facility] Rx#:[id number] Vancomycin Inj 1,250 MG In NS 262.5 / 262.5 Inj 250 ML @ 250 mls/hr IV.SIG Q8H [facility] Rx#:[id number] Tube Feeding 530 / 530 960 / 960 Tube Irrigant 50 / 50 300 / 300 Output: Urine 650 / 650 350 / 350 Stool 1 / Urine Amount (Catheter) 1399 / 1399 Indwelling Urethral Catheter 1399 Other: Date of Last Bowel Movement 05/25/18 05/26/18 # Bowel Movements 1 2 GENERAL: WBWN AA male, unresponsive SKIN: Warm and dry. HEAD: Normocephalic. EYES: No scleral icterus. No injection or drainage. NECK: Supple, trachea midline. No JVD or lymphadenopathy. Has Trach CARDIOVASCULAR: Regular rate and rhythm without murmurs, gallops, or rubs. RESPIRATORY: Breath sounds equal bilaterally. No accessory muscle use. GASTROINTESTINAL: Abdomen soft, non-tender, nondistended. PEG tube in place MUSCULOSKELETAL: No cyanosis, or edema. Contractures BACK: Nontender without obvious deformity. No CVA tenderness. Narrative: Subjective: 33 YOAA male with anoxic encephalopathy, Rf, trach, MDR Pseudomonas Improving, mother at bedside. With less secretions, no tachycardia. Does not appear in acute distress at this time. Physical exam: GENERAL: Not in acute distress, nonverbal. CARDIOVASCULAR: Regular rhythm, no murmurs. RESPIRATORY: Clear to auscultation, poor effort, no wheezing. GASTROINTESTINAL: Abdomen soft, normal bowel sounds, non-tender, nondistended. PEG tube in place, no surrounding erythema. MUSCULOSKELETAL: Extremities without clubbing, cyanosis, or edema. NEUROLOGICAL: Nonverbal, does not follow any commands, positive for contractures and bilateral foot drop. Assessment and Plan This is a 33-year-old male with history of anoxic brain injury, hypertension, diabetes and frequent pneumonia with drug-resistant organisms presenting to the hospital with pneumonia after failing outpatient treatment. Patient with MDR Pseudomonas ID ff Sepsis secondary to healthcare associated pneumonia-chest x-ray showed bibasilar densities, no leukocytosis but with low-grade fever, mild lactic acidosis, tachycardia and tachypnea. KUB showed sinus tachycardia, no ischemic changes. Patient has a history of multidrug-resistant organisms from pneumonia including Proteus, Klebsiella, Pseudomonas and Acinetobacter. Patient status post 1 week of azithromycin. Patient responded with Zosyn in the past. MUMTAZ zosyn. Consulted infectious disease, appreciate recommendations. On IV abx per ID specialist recommendations meropenem and vanco , discussed with Dr Joselo ID patient with schmitt resistant Pseudomonas, Plan to repeat CXR change abx to avycazm follow additional sensitivities Noted with Increased trach secretions 05/23. Respiratory therapy following. Added Levsin. Trach care, suction frequently. Pulmonary consultation follows with Dr Lew. Trach to be changed per pulm recommendations Acute on chronic respiratory failure-continue oxygen supplementation, on tracheostomy, trach care, duo nebs around the clock and as needed. Seizures-continue phenytoin, phenytoin levels within normal limits. Added Ativan. Neurology consulted , appreciate recommendations. On Diabetes mellitus- Lovenox for DVT prophylaxis Discussed with the nurse, mother at bedside - Urinary Catheter Management Indwelling Urethral Catheter Cath placed during this visit: yes, but has since been removed by the nurse Reason for continuing: Terminally ill/Comfort care Insertion date: 05/26/18 Insertion time: 10:00 Removal date: 05/26/18 Removal time: 10:00 Assessment and Plan - Plan IMPRESSION: 1. Chronic respiratory failure. 2. Status post tracheostomy. 3. Seizure disorder. 4. Anoxic encephalopathy. 5. Basal infiltrate with atelectasis. PLAN: Cont trach collar Trach care Aerosol nebs Abx per ID Tube feeding.
[2018-05-27] MEDS: Insulin NovoLIN Regular Correctional Sugar Inj SQ SCH ×3 (03:13→13:08)
[2018-05-27] MEDS: Senna/Docusate Sodium 8.6/50 MG Tablet PO SCH ×3 (03:13→23:17)
[2018-05-27 04:54] LABS: Baso % (Auto) 0.3 % (0.0-2.0); Eos # (Auto) 0.1 th/mm3 (0.0-0.4); Eos % (Auto) 4.6 % (0.0-4.0); Hematocrit 39.6 % (39.0-51.0); Hemoglobin 13.2 gm/dL (13.0-17.0); Mean Corpuscular HGB Conc 33.3 % (32.0-36.0); Mean Corpuscular Hemoglobin 31.3 pg (27.0-34.0); Mean Corpuscular Volume 94.1 fL (80.0-100.0); Mean Platelet Volume 9.6 fL (7.0-11.0); Mono # (Auto) 0.4 th/mm3 (0.0-0.9); Mono % (Auto) 14.6 % (0.0-8.0); Neut # (Auto) 1.2 th/mm3 (1.8-7.7); Neut % (Auto) 44.5 % (16.0-70.0); Platelet Count 166 th/mm3 (150-450); Red Cell Distribution Width 13.3 % (11.6-17.2); White Blood Count 2.8 th/mm3 (4.0-11.0)
[2018-05-27 05:03] LABS: Anion Gap 6 meq/L (5-15); Blood Urea Nitrogen 10 mg/dL (7-18); Calcium 8.5 mg/dL (8.5-10.1); Carbon Dioxide 27.7 meq/L (21.0-32.0); Chloride 110 meq/L (98-107); Glomerular Filtration Rate Greater Than 89 mL/min (>89); Glucose,Random 119 mg/dL (74-106); Potassium 3.7 meq/L (3.5-5.1); Sodium 144 meq/L (136-145)
[2018-05-27] MEDS: Morphine Sulfate Inj 2 MG/ML Vial IV.PUSH PRN ×2 (05:16→19:57)
[2018-05-27] MEDS: Dextrose 5%/NaCl 0.9% Inj 1,000 ML IV.CONT SCH ×2 (05:17)
[2018-05-27] MEDS: Ceftazidime/Avibactam Inj 2.5 GM in Sodium Chlor 0.9% Inj 50 ML IV.SIG SCH ×2 (06:50→15:42)
[2018-05-27] MEDS: dilTIAZem 30 MG Tablet PO SCH ×3 (12:20→23:20)
[2018-05-27] MEDS: Famotidine 20 MG Tablet PO SCH ×2 (12:20→23:17)
[2018-05-27] MEDS: amLODIPine 10 MG Tablet PO SCH (12:21)
--- NOTE | 2018-05-27 19:02 | P.PNPL ---
Subjective Interval history: 33 YOAA male with anoxic encephalopathy, Rf, trach Sp MDR Pseudomonas On Trach collar Small amount of trach secretions No Fever No new complaint Tolerates TF Physical Exam Vital signs: Vital Signs 05/26/18 20:00 05/26/18 21:00 05/27/18 00:00 Temperature 98.6 F 98.2 F Pulse Rate 64 53 L Respiratory Rate 20 20 Blood Pressure 112/68 91/44 L Pulse Oximetry 100 100 100 05/27/18 01:00 05/27/18 03:00 05/27/18 04:00 Temperature 98.6 F Pulse Rate 64 62 Respiratory Rate 18 Blood Pressure 125/77 Pulse Oximetry 100 99 05/27/18 04:02 05/27/18 08:00 05/27/18 09:00 Temperature Pulse Rate 74 60 Respiratory Rate Blood Pressure Pulse Oximetry 100 05/27/18 10:00 05/27/18 11:00 05/27/18 12:00 Temperature Pulse Rate 64 66 58 L Respiratory Rate Blood Pressure Pulse Oximetry 100 05/27/18 13:00 05/27/18 13:38 05/27/18 14:00 Temperature Pulse Rate 78 84 Respiratory Rate Blood Pressure Pulse Oximetry 98 05/27/18 15:00 05/27/18 16:00 05/27/18 17:00 Temperature 99.4 F Pulse Rate 74 66 84 Respiratory Rate 22 Blood Pressure 153/76 H Pulse Oximetry 100 05/27/18 17:56 05/27/18 18:00 Temperature Pulse Rate 74 Respiratory Rate Blood Pressure Pulse Oximetry 100 Intake & Output 05/27/18 05/27/18 05/28/18 06:59 18:59 06:59 Intake Total 1370 / 1370 1100 / 1100 Output Total 500 / 500 Balance 870 / 870 1100 / 1100 Weight 69 kg Intake: IV 50 / 50 1100 / 1100 D5W/Normal Saline Inj 1,000 ML 1000 / 1000 @ 84 mls/hr IV.CONT .[id number] SHAYNA Rx#:[id number] Avycaz Inj 2.5 GM In NS Inj 50 50 / 50 100 / 100 ML @ 25 mls/hr IV.SIG Q8H SHAYNA Rx#:[id number] Oral 0 / 0 Tube Feeding 960 / 960 Water Bolus Amount 360 / 360 Output: Urine 500 / 500 GENERAL: WBWN AA male, no distress SKIN: Warm and dry. HEAD: Normocephalic. EYES: No scleral icterus. No injection or drainage. NECK: Supple, trachea midline. No JVD or lymphadenopathy. trach, small to mod amount of secretions CARDIOVASCULAR: Regular rate and rhythm without murmurs, gallops, or rubs. RESPIRATORY: Breath sounds equal bilaterally. No accessory muscle use. GASTROINTESTINAL: Abdomen soft, non-tender, nondistended. Has PEG MUSCULOSKELETAL: No cyanosis, or edema. BACK: Nontender without obvious deformity. No CVA tenderness. Narrative: Subjective: 33 YOAA male with anoxic encephalopathy, Rf, trach, MDR Pseudomonas Malfunctioning feding tube consult IR With less secretions, no tachycardia. Does not appear in acute distress at this time. No cough. Afebrile. no seizures Physical exam: GENERAL: Not in acute distress, nonverbal. CARDIOVASCULAR: Regular rhythm, no murmurs. RESPIRATORY: Clear to auscultation, poor effort, no wheezing. GASTROINTESTINAL: Abdomen soft, normal bowel sounds, non-tender, nondistended. PEG tube in place, no surrounding erythema. MUSCULOSKELETAL: Extremities without clubbing, cyanosis, or edema. NEUROLOGICAL: Nonverbal, does not follow any commands, positive for contractures and bilateral foot drop. Assessment and Plan This is a 33-year-old male with history of anoxic brain injury, hypertension, diabetes and frequent pneumonia with drug-resistant organisms presenting to the hospital with pneumonia after failing outpatient treatment. Patient with MDR Pseudomonas ID ff Sepsis secondary to healthcare associated pneumonia-chest x-ray showed bibasilar densities, no leukocytosis but with low-grade fever, mild lactic acidosis, tachycardia and tachypnea. KUB showed sinus tachycardia, no ischemic changes. Patient has a history of multidrug-resistant organisms from pneumonia including Proteus, Klebsiella, Pseudomonas and Acinetobacter. Patient status post 1 week of azithromycin. Patient responded with Zosyn in the past. DC zosyn. Consulted infectious disease, appreciate recommendations. On IV abx per ID specialist recommendations meropenem and vanco , discussed with Dr Joselo FLANAGAN patient with schmitt resistant Pseudomonas, Plan to repeat CXR change abx to avycazm follow additional sensitivities Noted with Increased trach secretions 05/23. Respiratory therapy following. Added Levsin. Trach care, suction frequently. Pulmonary consultation follows with Dr Lew. Trach to be changed per pulm recommendations Acute on chronic respiratory failure-continue oxygen supplementation, on tracheostomy, trach care, duo nebs around the clock and as needed. Seizures-continue phenytoin, phenytoin levels within normal limits. Added Ativan. Neurology consulted , appreciate recommendations. On Malfunctioning feeding tube G/J tibe . Flushed attempts by the nurse. Consult IR Diabetes mellitus- Lovenox for DVT prophylaxis Discussed with the nurse - Urinary Catheter Management Indwelling Urethral Catheter Cath placed during this visit: yes, but has since been removed by the nurse Reason for continuing: Acute urinary retention Insertion date: 05/26/18 Insertion time: 10:00 Removal date: 05/26/18 Removal time: 10:00 Assessment and Plan - Plan IMPRESSION: 1. Chronic respiratory failure. 2. Status post tracheostomy. 3. Seizure disorder. 4. Anoxic encephalopathy. 5. Basal infiltrate with atelectasis. PLAN: Cont trach collar Trach care Aerosol nebs Abx per ID Tube feeding. monitor CBC
--- NOTE | 2018-05-27 22:02 | P.PN ---
Physical Exam Vital signs: Vital Signs 05/27/18 00:00 05/27/18 01:00 05/27/18 03:00 Temperature 98.2 F Pulse Rate 53 L 64 Respiratory Rate 20 Blood Pressure 91/44 L Pulse Oximetry 100 100 05/27/18 04:00 05/27/18 04:02 05/27/18 07:00 Temperature 98.6 F Pulse Rate 62 93 H Respiratory Rate 18 Blood Pressure 125/77 Pulse Oximetry 99 100 05/27/18 08:00 05/27/18 09:00 05/27/18 10:00 Temperature Pulse Rate 74 60 64 Respiratory Rate Blood Pressure Pulse Oximetry 05/27/18 11:00 05/27/18 12:00 05/27/18 13:00 Temperature Pulse Rate 68 58 L 78 Respiratory Rate Blood Pressure Pulse Oximetry 100 05/27/18 13:38 05/27/18 14:00 05/27/18 15:00 Temperature Pulse Rate 84 74 Respiratory Rate Blood Pressure Pulse Oximetry 98 05/27/18 16:00 05/27/18 17:00 05/27/18 17:56 Temperature 99.4 F Pulse Rate 66 84 Respiratory Rate 22 Blood Pressure 153/76 H Pulse Oximetry 100 100 05/27/18 18:00 05/27/18 20:00 Temperature 98.6 F Pulse Rate 74 89 Respiratory Rate 18 Blood Pressure 147/70 H Pulse Oximetry 100 Intake & Output 05/27/18 05/27/18 05/28/18 06:59 18:59 06:59 Intake Total 1370 / 1370 1100 / 1100 Output Total 500 / 500 Balance 870 / 870 1100 / 1100 Weight 69 kg Intake: IV 50 / 50 1100 / 1100 D5W/Normal Saline Inj 1,000 ML 1000 / 1000 @ 84 mls/hr IV.CONT .[id number] [facility]NA Rx#:[id number] Avycaz Inj 2.5 GM In NS Inj 50 50 / 50 100 / 100 ML @ 25 mls/hr IV.SIG Q8H [facility]AYNA Rx#:[id number] Oral 0 / 0 Tube Feeding 960 / 960 Water Bolus Amount 360 / 360 Output: Urine 500 / 500 Other: Date of Last Bowel Movement 05/27/18 # Bowel Movements 1 Narrative: Subjective: 33 YOAA male with anoxic encephalopathy, Rf, trach, MDR Pseudomonas Feeding tube replaced by IR and functioning well. No more seizures. With less secretions, no tachycardia. Does not appear in acute distress at this time. No cough. Afebrile. no seizures Physical exam: GENERAL: Not in acute distress, nonverbal. CARDIOVASCULAR: Regular rhythm, no murmurs. RESPIRATORY: Clear to auscultation, poor effort, no wheezing. GASTROINTESTINAL: Abdomen soft, normal bowel sounds, non-tender, nondistended. G /Jtube in place, no surrounding erythema. MUSCULOSKELETAL: Extremities without clubbing, cyanosis, or edema. NEUROLOGICAL: Nonverbal, does not follow any commands, positive for contractures and bilateral foot drop. Assessment and Plan This is a 33-year-old male with history of anoxic brain injury, hypertension, diabetes and frequent pneumonia with drug-resistant organisms presenting to the hospital with pneumonia after failing outpatient treatment. Patient with MDR Pseudomonas ID ff Sepsis secondary to healthcare associated pneumonia-chest x-ray showed bibasilar densities, no leukocytosis but with low-grade fever, mild lactic acidosis, tachycardia and tachypnea. KUB showed sinus tachycardia, no ischemic changes. Patient has a history of multidrug-resistant organisms from pneumonia including Proteus, Klebsiella, Pseudomonas and Acinetobacter. Patient status post 1 week of azithromycin. Patient responded with Zosyn in the past. DC zosyn. Consulted infectious disease, appreciate recommendations. On IV abx per ID specialist recommendations meropenem and vanco , discussed with Dr Joselo FLANAGAN patient with schmitt resistant Pseudomonas, Plan to repeat CXR change abx to avycazm follow additional sensitivities Noted with Increased trach secretions 05/23. Respiratory therapy following. Added Levsin. Trach care, suction frequently. Pulmonary consultation follows with Dr Lew. Trach to be changed per pulm recommendations Acute on chronic respiratory failure-continue oxygen supplementation, on tracheostomy, trach care, duo nebs around the clock and as needed. Seizures-continue phenytoin, phenytoin levels within normal limits. Added Ativan. Neurology consulted , appreciate recommendations. On Malfunctioning feeding tube G/J tibe . Flushed attempts by the nurse. Consult IR Diabetes mellitus- Lovenox for DVT prophylaxis Discussed with the nurse - Urinary Catheter Management Indwelling Urethral Catheter Cath placed during this visit: yes, but has since been removed by the nurse Reason for continuing: Acute urinary retention Insertion date: 05/26/18 Insertion time: 10:00 Removal date: 05/26/18 Removal time: 10:00 Results - Labs CBC & Chem 7: 05/27/18 04:15 05/27/18 04:15 Laboratory Results - last 24 hr 05/27/18 05/27/18 05/27/18 01:35 04:15 04:15 WBC 2.8 L RBC 4.20 L Hgb 13.2 Hct 39.6 MCV 94.1 MCH 31.3 MCHC 33.3 RDW 13.3 Plt Count 166 MPV 9.6 Neut % (Auto) 44.5 Lymph % (Auto) 36.0 [place] % (Auto) 14.6 H Eos % (Auto) 4.6 H Baso % (Auto) 0.3 Neut # (Auto) 1.2 L Lymph # (Auto) 1.0 [place] # (Auto) 0.4 Eos # (Auto) 0.1 Baso # (Auto) 0.0 WBC Differential . Differential Comment Auto diff final Sodium 144 Potassium 3.7 Chloride 110 H Carbon Dioxide 27.7 Anion Gap 6 BUN 10 Creatinine 0.61 Estimated GFR Greater than 89 POC Glucose 94 Random Glucose 119 H Calcium 8.5 05/27/18 05/27/18 06:14 12:31 WBC RBC Hgb Hct MCV MCH MCHC RDW Plt Count MPV Neut % (Auto) Lymph % (Auto) [place] % (Auto) Eos % (Auto) Baso % (Auto) Neut # (Auto) Lymph # (Auto) [place] # (Auto) Eos # (Auto) Baso # (Auto) WBC Differential Differential Comment Sodium Potassium Chloride Carbon Dioxide Anion Gap BUN Creatinine Estimated GFR POC Glucose 114 H 117 H Random Glucose Calcium Microbiology 05/23/18 05:10 Sputum - Tracheal Aspirate Gram Stain - Final 05/23/18 05:10 Sputum - Tracheal Aspirate Sputum Culture - Final Pseudomonas aeruginosa Multidrug Resistant Escherichia coli ESBL positive 05/22/18 13:54 Blood - Peripheral Aerobic Blood Culture - Final No growth in 5 days 05/22/18 13:54 Blood - Peripheral Anaerobic Blood Culture - Final No growth in 5 days 05/22/18 11:07 Blood - Peripheral Aerobic Blood Culture - Final No growth in 5 days 05/22/18 11:07 Blood - Peripheral Anaerobic Blood Culture - Final No growth in 5 days
[2018-05-28] MEDS: Ceftazidime/Avibactam Inj 2.5 GM in Sodium Chlor 0.9% Inj 50 ML IV.SIG SCH ×4 (00:31→23:10)
[2018-05-28] MEDS: Insulin NovoLIN Regular Correctional Sugar Inj SQ SCH ×3 (04:51→13:47)
[2018-05-28] MEDS: Dextrose 5%/NaCl 0.9% Inj 1,000 ML IV.CONT SCH ×2 (05:24→22:55)
[2018-05-28 08:47] LABS: Baso % (Auto) 0.5 % (0.0-2.0); Eos # (Auto) 0.1 th/mm3 (0.0-0.4); Eos % (Auto) 2.9 % (0.0-4.0); Hematocrit 41.3 % (39.0-51.0); Hemoglobin 13.7 gm/dL (13.0-17.0); Lymph # (Auto) 1.2 th/mm3 (1.0-4.8); Mean Corpuscular HGB Conc 33.2 % (32.0-36.0); Mean Corpuscular Hemoglobin 30.9 pg (27.0-34.0); Mean Corpuscular Volume 92.8 fL (80.0-100.0); Mean Platelet Volume 9.6 fL (7.0-11.0); Mono # (Auto) 0.5 th/mm3 (0.0-0.9); Mono % (Auto) 14.2 % (0.0-8.0); Neut # (Auto) 1.8 th/mm3 (1.8-7.7); Neut % (Auto) 49.4 % (16.0-70.0); Platelet Count 207 th/mm3 (150-450); Red Blood Count 4.45 mil/mm3 (4.50-5.90); Red Cell Distribution Width 13.5 % (11.6-17.2); White Blood Count 3.7 th/mm3 (4.0-11.0)
--- NOTE | 2018-05-28 08:48 | P.PNPL ---
Subjective Interval history: 33 YOAA male with anoxic encephalopathy, Rf, trach Sp MDR Pseudomonas On Trach collar Small amount of trach secretions No Fever No new complaint Tolerates TF has oral secretions Sister at BS Physical Exam Vital signs: Vital Signs 05/27/18 09:00 05/27/18 10:00 05/27/18 11:00 Temperature Pulse Rate 60 64 68 Respiratory Rate Blood Pressure Pulse Oximetry 05/27/18 12:00 05/27/18 13:00 05/27/18 13:38 Temperature Pulse Rate 58 L 78 Respiratory Rate Blood Pressure Pulse Oximetry 100 98 05/27/18 14:00 05/27/18 15:00 05/27/18 16:00 Temperature 99.4 F Pulse Rate 84 74 66 Respiratory Rate 22 Blood Pressure 153/76 H Pulse Oximetry 100 05/27/18 17:00 05/27/18 17:56 05/27/18 18:00 Temperature Pulse Rate 84 74 Respiratory Rate Blood Pressure Pulse Oximetry 100 05/27/18 20:00 05/28/18 00:00 05/28/18 04:00 Temperature 98.6 F 98.8 F 99.9 F H Pulse Rate 89 75 78 Respiratory Rate 18 18 18 Blood Pressure 147/70 H 122/69 136/87 Pulse Oximetry 100 99 99 Intake & Output 05/27/18 05/28/18 05/28/18 18:59 06:59 18:59 Intake Total 1100 / 1100 50 / 50 Output Total 1000 / 1000 Balance 1100 / 1100 -950 / -950 Weight 70.4 kg Intake: IV 1100 / 1100 50 / 50 D5W/Normal Saline Inj 1,000 ML 1000 / 1000 @ 84 mls/hr IV.CONT .[id number] SHAYNA Rx#:[id number] Avycaz Inj 2.5 GM In NS Inj 50 100 / 100 50 / 50 ML @ 25 mls/hr IV.SIG Q8H [facility]AYNA Rx#:[id number] Output: Urine 1000 / 1000 Other: Date of Last Bowel Movement 05/27/18 05/27/18 # Bowel Movements 1 GENERAL: WBWN AA male, unresponsive SKIN: Warm and dry. HEAD: Normocephalic. EYES: No scleral icterus. No injection or drainage. NECK: Supple, trachea midline. No JVD or lymphadenopathy. tarch in place CARDIOVASCULAR: Regular rate and rhythm without murmurs, gallops, or rubs. RESPIRATORY: Breath sounds equal bilaterally. No accessory muscle use. GASTROINTESTINAL: Abdomen soft, non-tender, nondistended. Has PEG MUSCULOSKELETAL: No cyanosis, or edema. BACK: Nontender without obvious deformity. No CVA tenderness. - Urinary Catheter Management Indwelling Urethral Catheter Cath placed during this visit: yes, but has since been removed by the nurse Reason for continuing: Acute urinary retention Insertion date: 05/27/18 Insertion time: 10:00 Removal date: 05/26/18 Removal time: 10:00 Assessment and Plan - Plan IMPRESSION: 1. Chronic respiratory failure. 2. Status post tracheostomy. 3. Seizure disorder. 4. Anoxic encephalopathy. 5. Basal infiltrate with atelectasis. PLAN: Cont trach collar Trach care Aerosol nebs Abx per ID Tube feeding. DW Sister at BS
[2018-05-28 09:01] LABS: Anion Gap 6 meq/L (5-15); Blood Urea Nitrogen 12 mg/dL (7-18); Calcium 8.3 mg/dL (8.5-10.1); Carbon Dioxide 28.7 meq/L (21.0-32.0); Chloride 108 meq/L (98-107); Glomerular Filtration Rate Greater Than 89 mL/min (>89); Glucose,Random 111 mg/dL (74-106); Potassium 4.1 meq/L (3.5-5.1)
[2018-05-28 09:02] LABS: Sodium 143 meq/L (136-145)
[2018-05-28] MEDS: dilTIAZem 30 MG Tablet PO SCH ×4 (09:55→22:53)
[2018-05-28] MEDS: Famotidine 20 MG Tablet PO SCH ×2 (09:55→22:54)
[2018-05-28] MEDS: Senna/Docusate Sodium 8.6/50 MG Tablet PO SCH ×2 (09:56→22:54)
[2018-05-28] MEDS: amLODIPine 10 MG Tablet PO SCH (09:57)
--- NOTE | 2018-05-28 10:33 | P.PNIM ---
Subjective Interval history: Patient is nonverbal so no history obtained. No evidence of pain. He does continue to cough. Physical Exam Vital signs: Vital Signs 05/27/18 11:00 05/27/18 12:00 05/27/18 13:00 Temperature Pulse Rate 68 58 L 78 Respiratory Rate Blood Pressure Pulse Oximetry 100 05/27/18 13:38 05/27/18 14:00 05/27/18 15:00 Temperature Pulse Rate 84 74 Respiratory Rate Blood Pressure Pulse Oximetry 98 05/27/18 16:00 05/27/18 17:00 05/27/18 17:56 Temperature 99.4 F Pulse Rate 66 84 Respiratory Rate 22 Blood Pressure 153/76 H Pulse Oximetry 100 100 05/27/18 18:00 05/27/18 20:00 05/28/18 00:00 Temperature 98.6 F 98.8 F Pulse Rate 74 89 75 Respiratory Rate 18 18 Blood Pressure 147/70 H 122/69 Pulse Oximetry 100 99 05/28/18 04:00 Temperature 99.9 F H Pulse Rate 78 Respiratory Rate 18 Blood Pressure 136/87 Pulse Oximetry 99 Intake & Output 05/27/18 05/28/18 05/28/18 18:59 06:59 18:59 Intake Total 1100 / 1100 50 / 50 Output Total 1000 / 1000 Balance 1100 / 1100 -950 / -950 Weight 70.4 kg Intake: IV 1100 / 1100 50 / 50 D5W/Normal Saline Inj 1,000 ML 1000 / 1000 @ 84 mls/hr IV.CONT .[id number] SHAYNA Rx#:[id number] Avycaz Inj 2.5 GM In NS Inj 50 100 / 100 50 / 50 ML @ 25 mls/hr IV.SIG Q8H [facility]NA Rx#:[id number] Output: Urine 1000 / 1000 Other: Date of Last Bowel Movement 05/27/18 05/27/18 # Bowel Movements 1 Narrative: GENERAL: NAD, A&Ox0 HEAD: Normocephalic. NECK: Supple, trachea midline. No lymphadenopathy. Tracheostomy in place. EYES: No scleral icterus. No injection or drainage. CARDIOVASCULAR: Regular rate and rhythm without murmurs, gallops, or rubs. RESPIRATORY: Breath sounds equal bilaterally. No accessory muscle use. GASTROINTESTINAL: Abdomen soft, non-tender, nondistended. MUSCULOSKELETAL: No cyanosis, or edema. SKIN: Warm and dry. NEURO: Global neurological deficits of brain damage. - Urinary Catheter Management Indwelling Urethral Catheter Cath placed during this visit: yes, but has since been removed by the nurse Reason for continuing: Other continuation reason Insertion date: 05/27/18 Insertion time: 10:00 Removal date: 05/26/18 Removal time: 10:00 Results - Labs CBC & Chem 7: 05/28/18 08:21 05/28/18 08:21 Laboratory Results - last 24 hr 05/27/18 05/28/18 05/28/18 12:31 05:36 08:21 WBC 3.7 L RBC 4.45 L Hgb 13.7 Hct 41.3 MCV 92.8 MCH 30.9 MCHC 33.2 RDW 13.5 Plt Count 207 MPV 9.6 Neut % (Auto) 49.4 Lymph % (Auto) 33.0 [place] % (Auto) 14.2 H Eos % (Auto) 2.9 Baso % (Auto) 0.5 Neut # (Auto) 1.8 Lymph # (Auto) 1.2 [place] # (Auto) 0.5 Eos # (Auto) 0.1 Baso # (Auto) 0.0 WBC Differential . Differential Comment Auto diff final Hematology Comments Sodium Potassium Chloride Carbon Dioxide Anion Gap BUN Creatinine Estimated GFR POC Glucose 117 H 116 H Random Glucose Calcium 05/28/18 08:21 WBC RBC Hgb Hct MCV MCH MCHC RDW Plt Count MPV Neut % (Auto) Lymph % (Auto) [place] % (Auto) Eos % (Auto) Baso % (Auto) Neut # (Auto) Lymph # (Auto) [place] # (Auto) Eos # (Auto) Baso # (Auto) WBC Differential Differential Comment Hematology Comments Sodium 143 Potassium 4.1 Chloride 108 H Carbon Dioxide 28.7 Anion Gap 6 BUN 12 Creatinine 0.54 L Estimated GFR Greater than 89 POC Glucose Random Glucose 111 H Calcium 8.3 L Microbiology 05/23/18 05:10 Sputum - Tracheal Aspirate Gram Stain - Final 05/23/18 05:10 Sputum - Tracheal Aspirate Sputum Culture - Final Pseudomonas aeruginosa Multidrug Resistant Escherichia coli ESBL positive 05/22/18 13:54 Blood - Peripheral Aerobic Blood Culture - Final No growth in 5 days 05/22/18 13:54 Blood - Peripheral Anaerobic Blood Culture - Final No growth in 5 days 05/22/18 11:07 Blood - Peripheral Aerobic Blood Culture - Final No growth in 5 days 05/22/18 11:07 Blood - Peripheral Anaerobic Blood Culture - Final No growth in 5 days Assessment and Plan - Plan 33-year-old male with history of anoxic brain injury admitted with sepsis from pneumonia Sepsis secondary to healthcare associated pneumonia Chronic tracheostomy Acute respiratory failure on chronic respiratory failure She has multidrug resistant organism Patient recently had azithromycin Infectious disease following Continue avycazm Follow cultures Pulmonology following Titrate oxygen as needed Continue tracheostomy care Seizure disorder History of anoxic brain injury Continue phenytoin Neurology following As needed Ativan Chronic G-tube Functioning G-tube IR consulted for assistance obstruction Diabetes mellitus type 2 Follow blood sugars Insulin sliding scale Diabetic diet DVT prophylaxis Lovenox
[2018-05-29] MEDS: Insulin NovoLIN Regular Correctional Sugar Inj SQ SCH ×4 (06:34→18:24)
[2018-05-29] MEDS: Ceftazidime/Avibactam Inj 2.5 GM in Sodium Chlor 0.9% Inj 50 ML IV.SIG SCH ×3 (06:42→21:08)
[2018-05-29] MEDS: dilTIAZem 30 MG Tablet PO SCH ×5 (06:43→21:09)
[2018-05-29 09:18] LABS: Baso % (Auto) 0.4 % (0.0-2.0); Eos # (Auto) 0.1 th/mm3 (0.0-0.4); Eos % (Auto) 2.2 % (0.0-4.0); Hematocrit 40.2 % (39.0-51.0); Hemoglobin 13.5 gm/dL (13.0-17.0); Lymph # (Auto) 1.3 th/mm3 (1.0-4.8); Lymph % (Auto) 24.2 % (9.0-44.0); Mean Corpuscular HGB Conc 33.6 % (32.0-36.0); Mean Corpuscular Hemoglobin 31.7 pg (27.0-34.0); Mean Corpuscular Volume 94.2 fL (80.0-100.0); Mean Platelet Volume 9.9 fL (7.0-11.0); Mono # (Auto) 0.5 th/mm3 (0.0-0.9); Mono % (Auto) 9.6 % (0.0-8.0); Neut # (Auto) 3.4 th/mm3 (1.8-7.7); Neut % (Auto) 63.6 % (16.0-70.0); Platelet Count 210 th/mm3 (150-450); Red Blood Count 4.26 mil/mm3 (4.50-5.90); Red Cell Distribution Width 13.6 % (11.6-17.2); White Blood Count 5.3 th/mm3 (4.0-11.0)
[2018-05-29 09:35] LABS: Albumin 2.8 g/dL (3.4-5.0); Anion Gap 6 meq/L (5-15); Blood Urea Nitrogen 9 mg/dL (7-18); Calcium 8.1 mg/dL (8.5-10.1); Carbon Dioxide 26.1 meq/L (21.0-32.0); Chloride 109 meq/L (98-107); Glomerular Filtration Rate Greater Than 89 mL/min (>89); Glucose,Random 126 mg/dL (74-106); Potassium 3.8 meq/L (3.5-5.1); Sodium 141 meq/L (136-145)
[2018-05-29 09:36] LABS: Aspartate Aminotransferase 25 U/L (15-37)
[2018-05-29 09:39] LABS: Alanine Aminotransferase 52 U/L (12-78); Alkaline Phosphatase 145 U/L (45-117); Total Protein 6.9 g/dL (6.4-8.2)
[2018-05-29] MEDS: amLODIPine 10 MG Tablet PO SCH (09:58)
[2018-05-29] MEDS: Senna/Docusate Sodium 8.6/50 MG Tablet PO SCH ×2 (09:58→21:08)
[2018-05-29] MEDS: Famotidine 20 MG Tablet PO SCH ×2 (09:58→21:08)
--- NOTE | 2018-05-29 12:12 | P.PNIM ---
Subjective Interval history: NON VERBAL NO NEW COMPLAINTS MOTHER COMPLAINS OF RIGHT UE SWELLING WILL GET US DW RN AND CHARGE AND CM Physical Exam Vital signs: Vital Signs 05/28/18 13:05 05/28/18 13:12 05/28/18 17:38 Temperature 99 F 99 F Pulse Rate 57 L 54 L Respiratory Rate 18 18 Blood Pressure 121/59 L 117/67 Pulse Oximetry 92 L 92 L 92 L 05/28/18 20:00 05/29/18 00:00 05/29/18 01:28 Temperature 99.0 F 99.4 F Pulse Rate 58 L 79 Respiratory Rate 18 18 Blood Pressure 117/70 124/68 Pulse Oximetry 100 99 99 05/29/18 04:00 05/29/18 08:05 05/29/18 09:42 Temperature 99.2 F 99.5 F Pulse Rate 64 107 H Respiratory Rate 18 16 Blood Pressure 118/77 117/56 L Pulse Oximetry 100 98 100 Intake & Output 05/28/18 05/29/18 05/29/18 18:59 06:59 18:59 Intake Total 1050 / 1050 50 / 50 55 / 55 Output Total 600 / 600 Balance 450 / 450 50 / 50 55 / 55 Weight 70.4 kg Intake: IV 1050 / 1050 50 / 50 55 / 55 D5W/Normal Saline Inj 1,000 ML 1000 / 1000 @ 84 mls/hr IV.CONT .[id number] SHAYNA Rx#:[id number] Avycaz Inj 2.5 GM In NS Inj 50 50 / 50 50 / 50 55 / 55 ML @ 25 mls/hr IV.SIG Q8H [facility]NA Rx#:[id number] Output: Urine 600 / 600 Other: Date of Last Bowel Movement 05/28/18 05/28/18 # Bowel Movements 1 # Incontinent Bowel Movements 1 Narrative: GENERAL: NAD, A&Ox0 HEAD: Normocephalic. NECK: Supple, trachea midline. No lymphadenopathy. Tracheostomy in place. EYES: No scleral icterus. No injection or drainage. CARDIOVASCULAR: Regular rate and rhythm without murmurs, gallops, or rubs. S1, S2 NO S3 OR S4 RESPIRATORY: Breath sounds equal bilaterally. No accessory muscle use. GASTROINTESTINAL: Abdomen soft, non-tender, nondistended. PEG MUSCULOSKELETAL: No cyanosis, or edema. SKIN: Warm and dry. NEURO: Global neurological deficits of brain damage. - Urinary Catheter Management Indwelling Urethral Catheter Cath placed during this visit: yes, but has since been removed by the nurse Reason for continuing: Acute urinary retention Insertion date: 05/27/18 Insertion time: 10:00 Removal date: 05/26/18 Removal time: 10:00 Results - Labs CBC & Chem 7: 05/29/18 08:40 05/29/18 08:40 Laboratory Results - last 24 hr 05/28/18 05/28/18 05/28/18 13:03 17:35 22:50 WBC RBC Hgb Hct MCV MCH MCHC RDW Plt Count MPV Neut % (Auto) Lymph % (Auto) [place] % (Auto) Eos % (Auto) Baso % (Auto) Neut # (Auto) Lymph # (Auto) [place] # (Auto) Eos # (Auto) Baso # (Auto) WBC Differential Differential Comment Sodium Potassium Chloride Carbon Dioxide Anion Gap BUN Creatinine Estimated GFR POC Glucose 122 H 90 85 Random Glucose Calcium Total Bilirubin AST ALT Alkaline Phosphatase Total Protein Albumin 05/29/18 05/29/18 05/29/18 06:38 08:40 08:40 WBC 5.3 RBC 4.26 L Hgb 13.5 Hct 40.2 MCV 94.2 MCH 31.7 MCHC 33.6 RDW 13.6 Plt Count 210 MPV 9.9 Neut % (Auto) 63.6 Lymph % (Auto) 24.2 [place] % (Auto) 9.6 H Eos % (Auto) 2.2 Baso % (Auto) 0.4 Neut # (Auto) 3.4 Lymph # (Auto) 1.3 [place] # (Auto) 0.5 Eos # (Auto) 0.1 Baso # (Auto) 0.0 WBC Differential . Differential Comment Auto diff final Sodium 141 Potassium 3.8 Chloride 109 H Carbon Dioxide 26.1 Anion Gap 6 BUN 9 Creatinine 0.58 L Estimated GFR Greater than 89 POC Glucose 92 Random Glucose 126 H Calcium 8.1 L Total Bilirubin 0.1 L AST 25 ALT 52 Alkaline Phosphatase 145 H Total Protein 6.9 Albumin 2.8 L - Imaging Chest X-Ray 05/22/18 08:37 CONCLUSION: Minimal bibasilar densities likely atelectasis Chest X-Ray 05/25/18 09:57 CONCLUSION: Study limited by breathing motion artifact. Concern for bibasilar consolidation. - Procedures NONE Assessment and Plan - Plan 33-year-old male with history of anoxic brain injury admitted with sepsis from pneumonia Sepsis secondary to healthcare associated pneumonia Chronic tracheostomy Acute respiratory failure on chronic respiratory failure HE has multidrug resistant organism Patient recently had azithromycin Infectious disease following Continue avycazm Follow cultures Pulmonology following Titrate oxygen as needed Continue tracheostomy care [employer]EV[employer] SE[employer]ETIONS Seizure disorder History of anoxic brain injury Continue phenytoin Neurology following As needed Ativan Chronic G-tube Functioning G-tube IR consulted for assistance obstruction Diabetes mellitus type 2 Follow blood sugars Insulin sliding scale Diabetic diet DVT prophylaxis Lovenox CHECK RIGHT UE FOR DVT Discussed Condition With: RN AND CHARGE Discharge Planning: SNF
--- NOTE | 2018-05-29 13:33 | P.PNPL ---
Subjective Interval history: Patient is 33yo encephalopathic on TP's with 28% FIO2. Afebrile. Physical Exam Vital signs: Vital Signs 05/28/18 17:38 05/28/18 20:00 05/29/18 00:00 Temperature 99 F 99.0 F 99.4 F Pulse Rate 54 L 58 L 79 Respiratory Rate 18 18 18 Blood Pressure 117/67 117/70 124/68 Pulse Oximetry 92 L 100 99 05/29/18 01:28 05/29/18 04:00 05/29/18 08:05 Temperature 99.2 F Pulse Rate 64 Respiratory Rate 18 Blood Pressure 118/77 Pulse Oximetry 99 100 98 05/29/18 09:42 05/29/18 12:55 Temperature 99.5 F 99.4 F Pulse Rate 107 H 59 L Respiratory Rate 16 18 Blood Pressure 117/56 L 128/74 Pulse Oximetry 100 100 Intake & Output 05/28/18 05/29/18 05/29/18 18:59 06:59 18:59 Intake Total 1050 / 1050 50 / 50 55 / 55 Output Total 600 / 600 Balance 450 / 450 50 / 50 55 / 55 Weight 70.4 kg Intake: IV 1050 / 1050 50 / 50 55 / 55 D5W/Normal Saline Inj 1,000 ML 1000 / 1000 @ 84 mls/hr IV.CONT .[id number] SHAYNA Rx#:[id number] Avycaz Inj 2.5 GM In NS Inj 50 50 / 50 50 / 50 55 / 55 ML @ 25 mls/hr IV.SIG Q8H SHAYNA Rx#:[id number] Output: Urine 600 / 600 Other: Date of Last Bowel Movement 05/28/18 05/28/18 # Bowel Movements 1 # Incontinent Bowel Movements 1 - Constitutional no acute distress - Routine HEENT Exam Head: Present: normocephalic Eye: Present: EOMI, PERRL, conjunctivae pink ENT: Present: mucous membranes moist - Routine Neck Exam Present: supple, full ROM, trachea midline - Routine Respiratory Exam Present: CTA bilaterally - Routine Cardiovascular Exam Present: RRR, S1, S2 - Routine Abdominal Exam Present: soft, normoactive bowel sounds - Routine Extremities Exam Present: pulses intact - Routine Skin Exam Present: intact - Routine Psychiatric Exam Present: unable to assess - Urinary Catheter Management Indwelling Urethral Catheter Cath placed during this visit: yes, but has since been removed by the nurse Reason for continuing: Acute urinary retention Insertion date: 05/27/18 Insertion time: 10:00 Removal date: 05/26/18 Removal time: 10:00 Assessment and Plan - Plan 1. Chronic respiratory failure. 2. Status post tracheostomy/ PEG tube placement. 3. Seizure disorder. 4. Anoxic encephalopathy. 5. HCAP PLAN: Cont with oxygen /TP's keep sats >92% Has trach#6 cuffless Pulm toilet, trach care Bronchodilators Abx per ID ( On Avycaz) monitor for signs of infections ( Fever, WBC) 05/23 sputum cx: ESBL E.coli, Pseudomonas Recheck sputum cx Nutrition support- on tube feeds via PEG tube GI/DVT prophylaxis- on Eliquis 5mg bID Continue treatment plan
--- NOTE | 2018-05-29 17:56 | US ---
EXAM DATE: 05/29/2018 5:45 PM EDT AGE/SEX: 33 years / Male INDICATIONS: Right arm swelling. CLINICAL DATA: This is the patient's subsequent encounter. Patient reports that signs and symptoms h ave been present for 1 day and indicates a pain score of Nonresponsive. MEDICAL/SURGICAL HISTORY: Gastroesophageal reflux disease. Hypertension. Anoxic brain damage. Diabetes. Deep vein thrombosis. Dyslipidemia. Pancreatitis. Seizures. . Tracheostomy. PEG tube. COMPARISON: No prior exams available for comparison. FINDINGS: Exam is limited because of contractures. No obvious venous thrombosis identified. Unable t o visualize the right cephalic vein. CONCLUSION: Limited by body habitus otherwise negative Electronically signed by: Musa Gomez MD 05/29/2018 5:55 PM EDT
[2018-05-29] MEDS: Dextrose 5%/NaCl 0.9% Inj 1,000 ML IV.CONT SCH (18:25)
[2018-05-30] MEDS: Insulin NovoLIN Regular Correctional Sugar Inj SQ SCH ×6 (03:53→22:59)
[2018-05-30] MEDS: Ceftazidime/Avibactam Inj 2.5 GM in Sodium Chlor 0.9% Inj 50 ML IV.SIG SCH ×3 (06:00→23:00)
--- NOTE | 2018-05-30 10:11 | P.PNPL ---
Subjective Interval history: No events overnight, on TP's with 28% FIO2, afebrile. Physical Exam Vital signs: Vital Signs 05/29/18 12:55 05/29/18 16:10 05/29/18 20:00 Temperature 99.4 F 98.6 F Pulse Rate 59 L 61 85 Respiratory Rate 18 17 18 Blood Pressure 128/74 124/61 Pulse Oximetry 100 99 05/29/18 20:57 05/30/18 00:00 05/30/18 05:08 Temperature 98.5 F Pulse Rate 92 H 113 H 45 L Respiratory Rate 18 20 16 Blood Pressure 150/58 H Pulse Oximetry 100 05/30/18 08:38 05/30/18 10:02 Temperature 97.7 F Pulse Rate 50 L 82 Respiratory Rate 16 16 Blood Pressure 113/64 Pulse Oximetry 99 Intake & Output 05/29/18 05/30/18 05/30/18 18:59 06:59 18:59 Intake Total 1095 / 1095 50 / 50 Output Total 1550 / 1550 Balance 1095 / 1095 -1500 / -1500 Intake: IV 1095 / 1095 50 / 50 D5W/Normal Saline Inj 1,000 ML 990 / 990 @ 84 mls/hr IV.CONT .[id number] SHAYNA Rx#:[id number] Avycaz Inj 2.5 GM In NS Inj 50 105 / 105 50 / 50 ML @ 25 mls/hr IV.SIG Q8H SHAYNA Rx#:[id number] Oral 0 / 0 Output: Urine 1550 / 1550 Other: Date of Last Bowel Movement 05/28/18 # Bowel Movements 0 - Constitutional no acute distress - Routine HEENT Exam Head: Present: normocephalic, atraumatic Eye: Present: EOMI, PERRL ENT: Present: mucous membranes moist - Routine Neck Exam Present: supple, trachea midline Comments: Contracted - Routine Respiratory Exam Present: CTA bilaterally - Routine Cardiovascular Exam Present: RRR, S1, S2 - Routine Abdominal Exam Present: soft, normoactive bowel sounds - Routine Skin Exam Present: intact - Routine Neurological Exam Present: altered mental status - Routine Psychiatric Exam Present: unable to assess - Urinary Catheter Management Indwelling Urethral Catheter Cath placed during this visit: yes, but has since been removed by the nurse Reason for continuing: Acute urinary retention Insertion date: 05/27/18 Insertion time: 10:00 Removal date: 05/26/18 Removal time: 10:00 Assessment and Plan - Plan 1. Chronic respiratory failure. 2. Status post tracheostomy/ PEG tube placement. 3. Seizure disorder. 4. Anoxic encephalopathy. 5. HCAP PLAN: Cont with oxygen /TP's keep sats >92% Has trach#6 cuffless Pulm toilet, trach care Bronchodilators Abx per ID ( On Avycaz) monitor for signs of infections ( Fever, WBC) 05/23 sputum cx: ESBL E.coli, Pseudomonas Follow up on sputum cx Nutrition support- on tube feeds via PEG tube Doppler US RUE: Limited study otherwise negative. GI/DVT prophylaxis- on Eliquis 5mg BID Continue treatment plan
[2018-05-30] MEDS: Senna/Docusate Sodium 8.6/50 MG Tablet PO SCH ×2 (11:14→23:00)
[2018-05-30] MEDS: amLODIPine 10 MG Tablet PO SCH (11:14)
[2018-05-30] MEDS: dilTIAZem 30 MG Tablet PO SCH (11:14)
[2018-05-30] MEDS: Famotidine 20 MG Tablet PO SCH ×2 (11:14→23:00)
[2018-05-30] MEDS: Dextrose 5%/NaCl 0.9% Inj 1,000 ML IV.CONT SCH ×3 (11:16→23:03)
--- NOTE | 2018-05-30 14:14 | P.PN ---
Subjective Interval history: Patient with sepsis, HCAP, acute on chronic respiratory failure. Patient seen and examined. Patient is nonverbal. Discussed with nursing staff, no acute issues noted. Ultrasound right upper extremity negative for DVT. Satting 100% on 28% FiO2. Physical Exam Vital signs: Vital Signs 05/29/18 16:10 05/29/18 20:00 05/29/18 20:57 Temperature 98.6 F Pulse Rate 61 85 92 H Respiratory Rate 17 18 18 Blood Pressure 124/61 Pulse Oximetry 99 05/30/18 00:00 05/30/18 05:08 05/30/18 08:38 Temperature 98.5 F Pulse Rate 113 H 45 L 50 L Respiratory Rate 20 16 16 Blood Pressure 150/58 H Pulse Oximetry 100 05/30/18 10:02 05/30/18 12:57 Temperature 97.7 F 97.7 F Pulse Rate 82 49 L Respiratory Rate 16 16 Blood Pressure 113/64 103/52 L Pulse Oximetry 99 100 Intake & Output 05/29/18 05/30/18 05/30/18 18:59 06:59 18:59 Intake Total 1095 / 1095 1050 / 1050 Output Total 1550 / 1550 Balance 1095 / 1095 -500 / -500 Intake: IV 1095 / 1095 1050 / 1050 D5W/Normal Saline Inj 1,000 ML 990 / 990 1000 / 1000 @ 84 mls/hr IV.CONT .[id number] SHAYNA Rx#:[id number] Avycaz Inj 2.5 GM In NS Inj 50 105 / 105 50 / 50 ML @ 25 mls/hr IV.SIG Q8H SHAYNA Rx#:[id number] Oral 0 / 0 Output: Urine 1550 / 1550 Other: Date of Last Bowel Movement 05/28/18 # Bowel Movements 0 Narrative: GENERAL: Well-developed well-nourished -[place] male, INAD, A&Ox0 SKIN: Warm and dry. No generalized rash. HEAD: Normocephalic. NECK: Supple, trachea midline. No lymphadenopathy. Tracheostomy in place. EYES: No scleral icterus. No injection or drainage. CARDIOVASCULAR: Regular rate and rhythm without murmurs, gallops, or rubs. RESPIRATORY: Breath sounds equal bilaterally. No accessory muscle use. GASTROINTESTINAL: Abdomen soft, non-tender, nondistended. PEG site C/D/I. MUSCULOSKELETAL: No cyanosis, or edema. Bilateral upper and lower extremity contractures noted. NEURO: Awake, nonverbal. Global neurological deficits of brain damage. - Urinary Catheter Management Indwelling Urethral Catheter Cath placed during this visit: yes, but has since been removed by the nurse Reason for continuing: Acute urinary retention Insertion date: 05/27/18 Insertion time: 10:00 Removal date: 05/26/18 Removal time: 10:00 Results - Labs CBC & Chem 7: 05/29/18 08:40 05/29/18 08:40 Laboratory Results - last 24 hr 05/29/18 05/29/18 05/30/18 17:38 21:11 06:05 POC Glucose 104 99 115 H Microbiology 05/29/18 16:30 Sputum - Endotracheal Gram Stain - Final - Imaging Impressions Venous Doppler Study 05/29/18 00:00 CONCLUSION: Limited by body habitus otherwise negative - Procedures NONE Assessment and Plan - Assessment (1) Hospital acquired PNA Code(s): J18.9 - Pneumonia, unspecified organism Status: Acute (2) Pseudomonas aeruginosa infection Code(s): A49.8 - Other bacterial infections of unspecified site Status: Acute - Plan 33-year-old male with history of anoxic brain injury admitted with sepsis from pneumonia Sepsis secondary to healthcare associated pneumonia Chronic tracheostomy Acute respiratory failure on chronic respiratory failure He has multidrug resistant organism -sputum culture positive for MDR PSAE and E coli ESBL BCX with no growth Patient recently had azithromycin Infectious disease following, continue on IV Avycaz per their orders Pulmonology following, appreciate assistance. Repeat sputum culture pending. Scheduled duo nebs Titrate oxygen as needed Continue tracheostomy care Levsin prn for secretions Seizure disorder History of anoxic brain injury Continue Keppra EEG negative for seizure activity Neurology following As needed Ativan Chronic G-tube Functioning G-tube IR consulted for assistance obstruction Diabetes mellitus type 2 Blood sugars well controlled Follow blood sugars Insulin sliding scale Diabetic diet RUE edema Hx of LUE DVT on Apixaban Doppler ultrasound negative for DVT Hypertension, currently hypotensive Patient is on Cardizem 30mg p.o. 4 times daily and Norvasc 10mg daily ??. Cardizem not listed as home medication. Will discontinue Cardizem. Continue to monitor BP and adjust treatment accordingly DVT prophylaxis Patient is on Eliquis Discussed Condition With: Nursing staff, Dr. Villar Discharge Planning: Discussed with case management, plan to discharge back to SNF facility once cleared by ID and pulmonology
[2018-05-30] MEDS: Acetaminophen 325 MG Tablet PO PRN (23:53)
[2018-05-31] MEDS: Morphine Sulfate Inj 2 MG/ML Vial IV.PUSH PRN ×3 (00:46→23:39)
[2018-05-31] MEDS: Metoprolol Inj 5 MG/5 ML Vial IV.PUSH PRN (01:45)
[2018-05-31] MEDS: Insulin NovoLIN Regular Correctional Sugar Inj SQ SCH ×4 (05:39→18:00)
[2018-05-31] MEDS: Dextrose 5%/NaCl 0.9% Inj 1,000 ML IV.CONT SCH ×3 (05:40→13:48)
[2018-05-31] MEDS: Ceftazidime/Avibactam Inj 2.5 GM in Sodium Chlor 0.9% Inj 50 ML IV.SIG SCH ×3 (05:41→23:30)
[2018-05-31] MEDS: Famotidine 20 MG Tablet PO SCH ×2 (09:27→23:30)
[2018-05-31] MEDS: Senna/Docusate Sodium 8.6/50 MG Tablet PO SCH ×2 (09:27→23:31)
[2018-05-31] MEDS: amLODIPine 10 MG Tablet PO SCH (09:27)
[2018-05-31 13:27] LABS: Baso % (Auto) 0.4 % (0.0-2.0); Eos # (Auto) 0.1 th/mm3 (0.0-0.4); Eos % (Auto) 1.6 % (0.0-4.0); Hematocrit 41.9 % (39.0-51.0); Hemoglobin 14.1 gm/dL (13.0-17.0); Lymph # (Auto) 1.5 th/mm3 (1.0-4.8); Lymph % (Auto) 29.2 % (9.0-44.0); Mean Corpuscular HGB Conc 33.6 % (32.0-36.0); Mean Corpuscular Hemoglobin 31.3 pg (27.0-34.0); Mean Corpuscular Volume 93.3 fL (80.0-100.0); Mean Platelet Volume 9.7 fL (7.0-11.0); Mono # (Auto) 0.7 th/mm3 (0.0-0.9); Mono % (Auto) 13.9 % (0.0-8.0); Neut # (Auto) 2.8 th/mm3 (1.8-7.7); Neut % (Auto) 54.9 % (16.0-70.0); Platelet Count 237 th/mm3 (150-450); Red Blood Count 4.49 mil/mm3 (4.50-5.90); Red Cell Distribution Width 13.6 % (11.6-17.2); White Blood Count 5.1 th/mm3 (4.0-11.0)
[2018-05-31 14:04] LABS: Alanine Aminotransferase 53 U/L (12-78); Albumin 3.4 g/dL (3.4-5.0); Alkaline Phosphatase 136 U/L (45-117); Anion Gap 6 meq/L (5-15); Aspartate Aminotransferase 29 U/L (15-37); Blood Urea Nitrogen 11 mg/dL (7-18); Calcium 8.9 mg/dL (8.5-10.1); Carbon Dioxide 28.6 meq/L (21.0-32.0); Chloride 108 meq/L (98-107); Glomerular Filtration Rate Greater Than 89 mL/min (>89); Glucose,Random 106 mg/dL (74-106); Magnesium 2.4 mg/dL (1.5-2.5); Phosphorus 3.3 mg/dL (2.5-4.9); Potassium 3.9 meq/L (3.5-5.1); Sodium 143 meq/L (136-145); Total Protein 7.7 g/dL (6.4-8.2)
--- NOTE | 2018-05-31 14:24 | P.PN ---
Subjective Interval history: Patient with sepsis, HCAP, acute on chronic respiratory failure. Patient seen and examined. Patient with hx of anoxic brain injury. He is nonverbal. Discussed with nursing staff, patient tachycardic overnight with Tmax 100.8. Physical Exam Vital signs: Vital Signs 05/30/18 18:02 05/30/18 20:00 05/30/18 21:53 Temperature 98 F Pulse Rate 50 L 67 96 H Respiratory Rate 14 20 18 Blood Pressure 122/71 Pulse Oximetry 100 98 05/31/18 00:00 05/31/18 03:00 05/31/18 04:00 Temperature 100.8 F H 100.5 F H Pulse Rate 122 H 81 Respiratory Rate 22 18 22 Blood Pressure 171/81 H 124/70 Pulse Oximetry 99 05/31/18 05:32 05/31/18 07:00 05/31/18 08:00 Temperature 97.9 F Pulse Rate 96 H 96 H Respiratory Rate 16 22 22 Blood Pressure 132/74 Pulse Oximetry 100 05/31/18 11:30 05/31/18 12:00 Temperature 99 F Pulse Rate 80 Respiratory Rate 22 Blood Pressure 138/78 Pulse Oximetry 100 100 Intake & Output 05/30/18 05/31/18 05/31/18 18:59 06:59 18:59 Intake Total 1110 / 1110 1100 / 1100 1050 / 1050 Output Total 1500 / 1500 1650 / 1650 Balance -390 / -390 -550 / -550 1050 / 1050 Weight 69.8 kg Intake: IV 50 / 50 1100 / 1100 1050 / 1050 D5W/Normal Saline Inj 1,000 ML 1000 / 1000 1000 / 1000 @ 84 mls/hr IV.CONT .[id number] SHAYNA Rx#:[id number] Avycaz Inj 2.5 GM In NS Inj 50 50 / 50 100 / 100 50 / 50 ML @ 25 mls/hr IV.SIG Q8H SHAYNA Rx#:[id number] Oral 0 / 0 Tube Feeding 960 / 960 Water Bolus Amount 100 / 100 Output: Urine 1500 / 1500 1400 / 1400 Urine Amount (Catheter) 250 / 250 Indwelling Urethral Catheter 250 / 250 Other: Date of Last Bowel Movement 05/30/18 05/30/18 # Incontinent Bowel Movements 1 Narrative: GENERAL: Well-developed well-nourished -[place] male, INAD, A&Ox0. SKIN: Warm and dry. No generalized rash. + several small superficial wounds noted right upper inner arm below axilla, site of previous IV, ?adhesive reaction. No e/o infection. HEAD: Normocephalic. NECK: Supple, trachea midline. No lymphadenopathy. Tracheostomy in place. EYES: No scleral icterus. No injection or drainage. CARDIOVASCULAR: Regular rate and rhythm without murmurs, gallops, or rubs. RESPIRATORY: Breath sounds equal bilaterally. No accessory muscle use. GASTROINTESTINAL: Abdomen soft, non-tender, nondistended. PEG site C/D/I. MUSCULOSKELETAL: No cyanosis, or edema. Bilateral upper and lower extremity contractures noted. NEURO: Awake, nonverbal. Global neurological deficits of brain damage. - Urinary Catheter Management Indwelling Urethral Catheter Cath placed during this visit: yes, but has since been removed by the nurse Reason for continuing: Terminally ill/Comfort care Insertion date: 05/27/18 Insertion time: 10:00 Removal date: 05/26/18 Removal time: 10:00 Results - Labs CBC & Chem 7: 05/31/18 12:52 05/31/18 12:52 Laboratory Results - last 24 hr 05/30/18 05/30/18 05/31/18 16:29 22:58 00:09 WBC RBC Hgb Hct MCV MCH MCHC RDW Plt Count MPV Neut % (Auto) Lymph % (Auto) [place] % (Auto) Eos % (Auto) Baso % (Auto) Neut # (Auto) Lymph # (Auto) [place] # (Auto) Eos # (Auto) Baso # (Auto) WBC Differential Differential Comment Sodium Potassium Chloride Carbon Dioxide Anion Gap BUN Creatinine Estimated GFR POC Glucose 85 94 120 H Random Glucose Calcium Phosphorus Magnesium Total Bilirubin AST ALT Alkaline Phosphatase Total Protein Albumin 05/31/18 05/31/18 05/31/18 05:43 12:46 12:52 WBC 5.1 RBC 4.49 L Hgb 14.1 Hct 41.9 MCV 93.3 MCH 31.3 MCHC 33.6 RDW 13.6 Plt Count 237 MPV 9.7 Neut % (Auto) 54.9 Lymph % (Auto) 29.2 [place] % (Auto) 13.9 H Eos % (Auto) 1.6 Baso % (Auto) 0.4 Neut # (Auto) 2.8 Lymph # (Auto) 1.5 [place] # (Auto) 0.7 Eos # (Auto) 0.1 Baso # (Auto) 0.0 WBC Differential . Differential Comment Auto diff final Sodium Potassium Chloride Carbon Dioxide Anion Gap BUN Creatinine Estimated GFR POC Glucose 120 H 110 Random Glucose Calcium Phosphorus Magnesium Total Bilirubin AST ALT Alkaline Phosphatase Total Protein Albumin 05/31/18 12:52 WBC RBC Hgb Hct MCV MCH MCHC RDW Plt Count MPV Neut % (Auto) Lymph % (Auto) [place] % (Auto) Eos % (Auto) Baso % (Auto) Neut # (Auto) Lymph # (Auto) [place] # (Auto) Eos # (Auto) Baso # (Auto) WBC Differential Differential Comment Sodium 143 Potassium 3.9 Chloride 108 H Carbon Dioxide 28.6 Anion Gap 6 BUN 11 Creatinine 0.61 Estimated GFR Greater than 89 POC Glucose Random Glucose 106 Calcium 8.9 Phosphorus 3.3 Magnesium 2.4 Total Bilirubin Less than 0.1 L AST 29 ALT 53 Alkaline Phosphatase 136 H Total Protein 7.7 D Albumin 3.4 Microbiology 05/29/18 16:30 Sputum - Endotracheal Gram Stain - Final 05/29/18 16:30 Sputum - Endotracheal Sputum Culture - Preliminary Pseudomonas species gram negative rods - Imaging Chest X-Ray 05/22/18 08:37 CONCLUSION: Minimal bibasilar densities likely atelectasis Chest X-Ray 05/25/18 09:57 CONCLUSION: Study limited by breathing motion artifact. Concern for bibasilar consolidation. Venous Doppler Study 05/29/18 00:00 CONCLUSION: Limited by body habitus otherwise negative - Procedures NONE Assessment and Plan - Assessment (1) Hospital acquired PNA Code(s): J18.9 - Pneumonia, unspecified organism Status: Acute (2) Pseudomonas aeruginosa infection Code(s): A49.8 - Other bacterial infections of unspecified site Status: Acute - Plan 33-year-old male with history of anoxic brain injury admitted with sepsis from pneumonia Sepsis secondary to healthcare associated pneumonia Chronic tracheostomy Acute respiratory failure on chronic respiratory failure He has multidrug resistant organism -sputum culture positive for MDR PSAE and E coli ESBL 05/22 BCX with no growth Patient recently had azithromycin Infectious disease following, continue on IV Avycaz per their orders Pulmonology following, appreciate assistance. Repeat sputum culture + PSAE and GNR Scheduled duo nebs Titrate oxygen as needed Continue tracheostomy care Levsin prn for secretions 05/31 patient spiked temp 100.8, now afebrile. Blood cx ordered/pending. Obtain CXR and UA. White count WNL. ?drug fever. Seizure disorder History of anoxic brain injury Continue Keppra EEG negative for seizure activity Neurology following As needed Ativan Chronic G-tube Functioning G-tube IR consulted for assistance obstruction, resolved TF'ing resumed Diabetes mellitus type 2 Blood sugars well controlled Follow blood sugars Insulin sliding scale Diabetic diet RUE edema Hx of LUE DVT on Apixaban Doppler ultrasound negative for DVT Superficial wound inner aspect RUE Suspect adhesive reaction. No e/o infection. Monitor. Hypertension Continue on Norvasc Resume home med Metoprolol at lower dose to start and titrate as indicated Continue to monitor BP and adjust treatment accordingly DVT prophylaxis Patient is on Eliquis Discussed Condition With: nursing staff, Dr. Villar, CM Discharge Planning: Discussed with case management, plan to discharge back to SNF facility once cleared by ID and pulmonology
--- NOTE | 2018-05-31 15:38 | P.DIET ---
Nutritional Evaluation Type of nutrition evaluation: initial Nutrition consult regarding: Tube Feeding Subjective Subjective Comments: Nonverbal; resides in [facility] Objective - Diagnosis Sepsis, Pneumonia - Objective % IBW: 96 Body Weight Used for Calculations: Actual (67 kg) Energy Needs - Lower Range (kCal/kg): 25 Energy Needs - Upper Range (kCal/kg): 30 Lower Limit kCal/kg (kCals): 1,678 Upper Limit kCal/kg (kCals): 2,014 Lower Limit Protein Factor (Grams per Kg): 1.1 Upper Limit Protein Factor (Grams per Kg): 1.4 Lower Protein Needs (Protein): 74 Upper Protein Needs (Protein): 94 Dietitian Reviewed in Medical Record: Curent medications, Intake & Output, Labs , Medical history, Tube feeding Diet Order: TF'ing ONLY: Vital 1.5 @ goal rate 90ml/hr Objective Comments: PMH Includes: Anoxic brain injury w/aphasia and Seizure dO, s/p trach and PEG tube placement; positive for contractures and bilateral foot drop; DM, HTN, frequent pneumonia w/drug resistant organisms Meds Include: Novolin SSI, Zofran LBM 05/30 Feeding - Current Tube Feeding Tube Feeding Product: Vital 1.5 Tube Feeding Rate: 90 Current kCals Provided by Tube Feedin,240 Current Protein Provided by Tube Feeding (gPRO): 146 Current Free H2O Provided (m/l): 1,650 Assessment Assessment: Pt is at nutritional risk r/t diagnosis and need for TF'ing for nutritional support. Current TFing overfeeds the pt. For TF'ing w/Vital 1.5, Rec goal rate @ 50ml/hr to offer 1800 kcal, 76.6g Protein and 912ml free water. Free water flushes per MD. Noted pt receives Dilantin and this med is not on the Mar, at time of this entry. TF'ing goal rate will need to be reassessed when Dilantin is re-initiated d/t TF'ing is held 1-hr before and 1-hr after Dilantin is administered. Recommendations: Vital 1.5 @ 50 mls/hr goal Dietitian to Monitor: Lab values, Intake & Output, Tube feeding tolerance, Weight change, Medical course
--- NOTE | 2018-05-31 18:50 | XR ---
EXAM DATE: 05/31/2018 6:39 PM EDT AGE/SEX: 33 years / Male INDICATIONS: Shortness of breath. CLINICAL DATA: This is the patient's subsequent encounter. Patient reports that signs and symptoms h ave been present for 3 days and indicates a pain score of 0/10. MEDICAL/SURGICAL HISTORY: Hypertension. Gastroesophageal reflux disease. Diabetes. . Tracheos yesenia. COMPARISON: C, CHEST 1V SINGLE AP, 05/25/2018. . FINDINGS: Tracheostomy in good position. Heart size upper limits normal. No effusion or pneumothorax. Minimal b asilar atelectasis. CONCLUSION: Minimal basilar atelectasis. Tracheostomy in good position. Electronically signed by: Fidel Myers MD 05/31/2018 6:49 PM EDT
[2018-05-31 18:52] LABS: Bilirubin,Urine Negative (Negative); Clarity,Urine Hazy (Clear); Color,Urine Yellow (Yellw/Straw); Glucose,Urine (UA) Negative (Negative); Hyaline Casts,Urine 1 /lpf (0-3); Leukocyte Esterase,Urine Negative (Negative); Mucus,Urine Few /lpf (Occasional); Nitrite,Urine Negative (Negative); Specific Gravity,Urine 1.016 (1.002-1.035)
--- NOTE | 2018-05-31 20:01 | P.PNPL ---
Subjective Interval history: 33 YOAA male with anoxic encephalopathy, Rf, trach Sp MDR Pseudomonas On Trach collar Small amount of trach secretions No Fever No new complaint Tolerates TF Physical Exam Vital signs: Vital Signs 05/30/18 20:00 05/30/18 21:53 05/31/18 00:00 Temperature 98 F 100.8 F H Pulse Rate 67 96 H 122 H Respiratory Rate 20 18 22 Blood Pressure 122/71 171/81 H Pulse Oximetry 100 98 99 05/31/18 03:00 05/31/18 04:00 05/31/18 05:32 Temperature 100.5 F H Pulse Rate 81 96 H Respiratory Rate 18 22 16 Blood Pressure 124/70 Pulse Oximetry 05/31/18 07:00 05/31/18 08:00 05/31/18 11:30 Temperature 97.9 F Pulse Rate 96 H Respiratory Rate 22 22 Blood Pressure 132/74 Pulse Oximetry 100 100 05/31/18 12:00 05/31/18 15:31 05/31/18 15:32 Temperature 99 F Pulse Rate 80 80 Respiratory Rate 22 22 Blood Pressure 138/78 Pulse Oximetry 100 100 05/31/18 16:00 Temperature 98.9 F Pulse Rate 79 Respiratory Rate 22 Blood Pressure 113/58 L Pulse Oximetry 97 Intake & Output 05/31/18 05/31/18 06/01/18 06:59 18:59 06:59 Intake Total 1100 / 1100 2585 / 2585 Output Total 1650 / 1650 1300 / 1300 Balance -550 / -550 1285 / 1285 Weight 69.8 kg Intake: IV 1100 / 1100 1700 / 1700 D5W/Normal Saline Inj 1,000 ML 1000 / 1000 1600 / 1600 @ 84 mls/hr IV.CONT .[id number] SHAYNA Rx#:[id number] Avycaz Inj 2.5 GM In NS Inj 50 100 / 100 100 / 100 ML @ 25 mls/hr IV.SIG Q8H SHAYNA Rx#:[id number] Tube Feeding 765 / 765 Tube Irrigant 60 / 60 Water Bolus Amount 60 / 60 Output: Urine 1400 / 1400 500 / 500 Urine Amount (Catheter) 250 / 250 800 / 800 Indwelling Urethral Catheter 250 / 250 800 / 800 Other: Date of Last Bowel Movement 05/30/18 GENERAL: WBWn,no distress SKIN: Warm and dry. HEAD: Normocephalic. EYES: No scleral icterus. No injection or drainage. NECK: Supple, trachea midline. No JVD or lymphadenopathy. HAS tRACH CARDIOVASCULAR: Regular rate and rhythm without murmurs, gallops, or rubs. RESPIRATORY: Breath sounds equal bilaterally. No accessory muscle use. GASTROINTESTINAL: Abdomen soft, non-tender, nondistended. MUSCULOSKELETAL: No cyanosis, or edema. cONTRACTURES BACK: Nontender without obvious deformity. No CVA tenderness. - Urinary Catheter Management Indwelling Urethral Catheter Cath placed during this visit: yes, but has since been removed by the nurse Reason for continuing: Terminally ill/Comfort care Insertion date: 05/27/18 Insertion time: 10:00 Removal date: 05/26/18 Removal time: 10:00 Assessment and Plan - Plan IMPRESSION: 1. Chronic respiratory failure. 2. Status post tracheostomy. 3. Seizure disorder. 4. Anoxic encephalopathy. 5. Basal infiltrate with atelectasis. PLAN: Cont trach collar Trach care Aerosol nebs Abx per ID Tube feeding.
--- NOTE | 2018-05-31 20:13 | P.PN ---
Subjective Interval history: non verbal encephalopathic Physical Exam Vital signs: Vital Signs 05/30/18 21:53 05/31/18 00:00 05/31/18 03:00 Temperature 100.8 F H Pulse Rate 96 H 122 H Respiratory Rate 18 22 18 Blood Pressure 171/81 H Pulse Oximetry 98 99 05/31/18 04:00 05/31/18 05:32 05/31/18 07:00 Temperature 100.5 F H Pulse Rate 81 96 H Respiratory Rate 22 16 22 Blood Pressure 124/70 Pulse Oximetry 05/31/18 08:00 05/31/18 11:30 05/31/18 12:00 Temperature 97.9 F 99 F Pulse Rate 96 H 80 Respiratory Rate 22 22 Blood Pressure 132/74 138/78 Pulse Oximetry 100 100 100 05/31/18 15:31 05/31/18 15:32 05/31/18 16:00 Temperature 98.9 F Pulse Rate 80 79 Respiratory Rate 22 22 Blood Pressure 113/58 L Pulse Oximetry 100 97 Intake & Output 05/31/18 05/31/18 06/01/18 06:59 18:59 06:59 Intake Total 1100 / 1100 2585 / 2585 Output Total 1650 / 1650 1300 / 1300 Balance -550 / -550 1285 / 1285 Weight 69.8 kg Intake: IV 1100 / 1100 1700 / 1700 D5W/Normal Saline Inj 1,000 ML 1000 / 1000 1600 / 1600 @ 84 mls/hr IV.CONT .[id number] SHAYNA Rx#:[id number] Avycaz Inj 2.5 GM In NS Inj 50 100 / 100 100 / 100 ML @ 25 mls/hr IV.SIG Q8H SHAYNA Rx#:[id number] Tube Feeding 765 / 765 Tube Irrigant 60 / 60 Water Bolus Amount 60 / 60 Output: Urine 1400 / 1400 500 / 500 Urine Amount (Catheter) 250 / 250 800 / 800 Indwelling Urethral Catheter 250 / 250 800 / 800 Other: Date of Last Bowel Movement 05/30/18 Narrative: GENERAL: Well-developed well-nourished -[place]onegas[place] male, INAD, A&Ox0. SKIN: Warm and dry. No generalized rash. + several small superficial wounds noted right upper inner arm below axilla, site of previous IV, ?adhesive reaction. No e/o infection. HEAD: Normocephalic. NECK: Supple, trachea midline. No lymphadenopathy. Tracheostomy in place. EYES: No scleral icterus. No injection or drainage. CARDIOVASCULAR: Regular rate and rhythm without murmurs, gallops, or rubs. RESPIRATORY: Breath sounds equal bilaterally. No accessory muscle use. GASTROINTESTINAL: Abdomen soft, non-tender, nondistended. PEG site C/D/I. MUSCULOSKELETAL: No cyanosis, or edema. Bilateral upper and lower extremity contractures noted. NEURO: Awake, nonverbal. Global neurological deficits of brain damage. - Urinary Catheter Management Indwelling Urethral Catheter Cath placed during this visit: yes, but has since been removed by the nurse Reason for continuing: Terminally ill/Comfort care Insertion date: 05/27/18 Insertion time: 10:00 Removal date: 05/26/18 Removal time: 10:00 Results - Labs CBC & Chem 7: 05/31/18 12:52 05/31/18 12:52 Laboratory Results - last 24 hr 05/30/18 05/31/18 05/31/18 22:58 00:09 05:43 WBC RBC Hgb Hct MCV MCH MCHC RDW Plt Count MPV Neut % (Auto) Lymph % (Auto) [place] % (Auto) Eos % (Auto) Baso % (Auto) Neut # (Auto) Lymph # (Auto) [place] # (Auto) Eos # (Auto) Baso # (Auto) WBC Differential Differential Comment Sodium Potassium Chloride Carbon Dioxide Anion Gap BUN Creatinine Estimated GFR POC Glucose 94 120 H 120 H Random Glucose Calcium Phosphorus Magnesium Total Bilirubin AST ALT Alkaline Phosphatase Total Protein Albumin Urine Color Urine Clarity Urine pH Ur Specific [place] Urine Protein Urine Glucose (UA) Urine Ketones Urine Occult Blood Urine Nitrate Urine Bilirubin Urine Urobilinogen Ur Leukocyte Esterase Urine RBC Urine WBC Hyaline Casts Urine Mucus Micro UA Comment Urine Culture Comments 05/31/18 05/31/18 05/31/18 12:46 12:52 12:52 WBC 5.1 RBC 4.49 L Hgb 14.1 Hct 41.9 MCV 93.3 MCH 31.3 MCHC 33.6 RDW 13.6 Plt Count 237 MPV 9.7 Neut % (Auto) 54.9 Lymph % (Auto) 29.2 [place] % (Auto) 13.9 H Eos % (Auto) 1.6 Baso % (Auto) 0.4 Neut # (Auto) 2.8 Lymph # (Auto) 1.5 [place] # (Auto) 0.7 Eos # (Auto) 0.1 Baso # (Auto) 0.0 WBC Differential . Differential Comment Auto diff final Sodium 143 Potassium 3.9 Chloride 108 H Carbon Dioxide 28.6 Anion Gap 6 BUN 11 Creatinine 0.61 Estimated GFR Greater than 89 POC Glucose 110 Random Glucose 106 Calcium 8.9 Phosphorus 3.3 Magnesium 2.4 Total Bilirubin Less than 0.1 L AST 29 ALT 53 Alkaline Phosphatase 136 H Total Protein 7.7 D Albumin 3.4 Urine Color Urine Clarity Urine pH Ur Specific [place] Urine Protein Urine Glucose (UA) Urine Ketones Urine Occult Blood Urine Nitrate Urine Bilirubin Urine Urobilinogen Ur Leukocyte Esterase Urine RBC Urine WBC Hyaline Casts Urine Mucus Micro UA Comment Urine Culture Comments 05/31/18 05/31/18 17:44 17:45 WBC RBC Hgb Hct MCV MCH MCHC RDW Plt Count MPV Neut % (Auto) Lymph % (Auto) [place] % (Auto) Eos % (Auto) Baso % (Auto) Neut # (Auto) Lymph # (Auto) [place] # (Auto) Eos # (Auto) Baso # (Auto) WBC Differential Differential Comment Sodium Potassium Chloride Carbon Dioxide Anion Gap BUN Creatinine Estimated GFR POC Glucose 95 Random Glucose Calcium Phosphorus Magnesium Total Bilirubin AST ALT Alkaline Phosphatase Total Protein Albumin Urine Color Yellow Urine Clarity Hazy H Urine pH 7.0 Ur Specific [place] 1.016 Urine Protein Negative Urine Glucose (UA) Negative Urine Ketones Negative Urine Occult Blood Negative Urine Nitrate Negative Urine Bilirubin Negative Urine Urobilinogen Less than 2 Ur Leukocyte Esterase Negative Urine RBC 3 Urine WBC 1 Hyaline Casts 1 Urine Mucus Few H Micro UA Comment Cath-culture not ind Urine Culture Comments Cath-cult not ind Microbiology 05/29/18 16:30 Sputum - Endotracheal Gram Stain - Final 05/29/18 16:30 Sputum - Endotracheal Sputum Culture - Preliminary Pseudomonas species gram negative rods - Imaging Impressions Chest X-Ray 05/31/18 00:00 CONCLUSION: Minimal basilar atelectasis. Tracheostomy in good position. - Procedures NONE Assessment and Plan - Plan respiratory failure h/o anoxic encephalopathy s/p trach sepsis on antibiotics plan change trach. pulm toilet
[2018-05-31] MEDS: Metoprolol Tartrate 25 MG Tablet NG/OG SCH (23:31)
[2018-06-01] MEDS: Insulin NovoLIN Regular Correctional Sugar Inj SQ SCH ×4 (03:26→18:04)
[2018-06-01] MEDS: Ceftazidime/Avibactam Inj 2.5 GM in Sodium Chlor 0.9% Inj 50 ML IV.SIG SCH ×3 (06:16→22:11)
[2018-06-01] MEDS: amLODIPine 10 MG Tablet PO SCH (08:17)
[2018-06-01] MEDS: Metoprolol Tartrate 25 MG Tablet NG/OG SCH (08:17)
[2018-06-01] MEDS: Famotidine 20 MG Tablet PO SCH ×2 (08:18→22:12)
[2018-06-01] MEDS: Senna/Docusate Sodium 8.6/50 MG Tablet PO SCH ×2 (08:18→22:13)
--- NOTE | 2018-06-01 09:28 | P.PN ---
Subjective Interval history: Follow up on patient with sepsis, HCAP, acute on chronic respiratory failure. Patient seen and examined. Patient is nonverbal, history of anoxic brain injury. Discussed with nursing staff, no acute issues overnight. Patient is afebrile, vital signs stable. Physical Exam Vital signs: Vital Signs 05/31/18 11:30 05/31/18 12:00 05/31/18 15:31 Temperature 99 F Pulse Rate 80 80 Respiratory Rate 22 22 Blood Pressure 138/78 Pulse Oximetry 100 100 05/31/18 15:32 05/31/18 16:00 05/31/18 19:00 Temperature 98.9 F Pulse Rate 79 Respiratory Rate 22 20 Blood Pressure 113/58 L Pulse Oximetry 100 97 05/31/18 20:00 05/31/18 21:09 05/31/18 23:00 Temperature 98.2 F Pulse Rate 64 64 Respiratory Rate 20 20 20 Blood Pressure 123/75 Pulse Oximetry 100 06/01/18 00:00 06/01/18 03:00 06/01/18 03:55 Temperature 97.5 F L Pulse Rate 84 85 Respiratory Rate 20 20 16 Blood Pressure 144/75 H Pulse Oximetry 98 98 06/01/18 04:00 06/01/18 09:03 Temperature 97.8 F Pulse Rate 63 78 Respiratory Rate 18 18 Blood Pressure 107/76 Pulse Oximetry 100 100 Intake & Output 05/31/18 06/01/18 06/01/18 18:59 06:59 18:59 Intake Total 2585 / 2585 935 / 935 Output Total 1300 / 1300 801 / 801 Balance 1285 / 1285 134 / 134 Weight 70 kg Intake: IV 1700 / 1700 50 / 50 D5W/Normal Saline Inj 1,000 ML 1600 / 1600 @ 84 mls/hr IV.CONT .[id number] SHAYNA Rx#:[id number] Avycaz Inj 2.5 GM In NS Inj 50 100 / 100 50 / 50 ML @ 25 mls/hr IV.SIG Q8H SHAYNA Rx#:[id number] Oral 0 / 0 Tube Feeding 765 / 765 765 / 765 Tube Irrigant 60 / 60 60 / 60 Water Bolus Amount 60 / 60 60 / 60 Output: Urine 500 / 500 800 / 800 Stool 1 / 1 Urine Amount (Catheter) 800 / 800 Indwelling Urethral Catheter 800 / 800 Other: # Voids 3 Date of Last Bowel Movement 05/30/18 # Bowel Movements 0 # Incontinent Bowel Movements 1 Narrative: GENERAL: Well-developed well-nourished -[place] male, INAD, A&Ox0. Appear comfortable. SKIN: Warm and dry. No generalized rash. + several small superficial wounds noted right upper inner arm below axilla, site of previous IV, ?adhesive reaction. No e/o infection. HEAD: Normocephalic. NECK: Supple, trachea midline. No lymphadenopathy. Tracheostomy in place. EYES: No scleral icterus. No injection or drainage. CARDIOVASCULAR: Regular rate and rhythm without murmurs, gallops, or rubs. RESPIRATORY: Breath sounds equal bilaterally. No accessory muscle use. GASTROINTESTINAL: Abdomen soft, non-tender, nondistended. PEG site C/D/I. MUSCULOSKELETAL: No cyanosis, or edema. Bilateral upper and lower extremity contractures noted. NEURO: Awake, nonverbal. Global neurological deficits of brain damage. - Urinary Catheter Management Indwelling Urethral Catheter Cath placed during this visit: yes, but has since been removed by the nurse Reason for continuing: Terminally ill/Comfort care Insertion date: 05/27/18 Insertion time: 10:00 Removal date: 05/26/18 Removal time: 10:00 Results - Labs CBC & Chem 7: 05/31/18 12:52 05/31/18 12:52 Laboratory Results - last 24 hr 05/31/18 05/31/18 05/31/18 12:46 12:52 12:52 WBC 5.1 RBC 4.49 L Hgb 14.1 Hct 41.9 MCV 93.3 MCH 31.3 MCHC 33.6 RDW 13.6 Plt Count 237 MPV 9.7 Neut % (Auto) 54.9 Lymph % (Auto) 29.2 [place] % (Auto) 13.9 H Eos % (Auto) 1.6 Baso % (Auto) 0.4 Neut # (Auto) 2.8 Lymph # (Auto) 1.5 [place] # (Auto) 0.7 Eos # (Auto) 0.1 Baso # (Auto) 0.0 WBC Differential . Differential Comment Auto diff final Sodium 143 Potassium 3.9 Chloride 108 H Carbon Dioxide 28.6 Anion Gap 6 BUN 11 Creatinine 0.61 Estimated GFR Greater than 89 POC Glucose 110 Random Glucose 106 Lactic Acid Calcium 8.9 Phosphorus 3.3 Magnesium 2.4 Total Bilirubin Less than 0.1 L AST 29 ALT 53 Alkaline Phosphatase 136 H Total Protein 7.7 D Albumin 3.4 Urine Color Urine Clarity Urine pH Ur Specific [place] Urine Protein Urine Glucose (UA) Urine Ketones Urine Occult Blood Urine Nitrate Urine Bilirubin Urine Urobilinogen Ur Leukocyte Esterase Urine RBC Urine WBC Hyaline Casts Urine Mucus Micro UA Comment Urine Culture Comments 05/31/18 05/31/18 05/31/18 17:44 17:45 23:38 WBC RBC Hgb Hct MCV MCH MCHC RDW Plt Count MPV Neut % (Auto) Lymph % (Auto) [place] % (Auto) Eos % (Auto) Baso % (Auto) Neut # (Auto) Lymph # (Auto) [place] # (Auto) Eos # (Auto) Baso # (Auto) WBC Differential Differential Comment Sodium Potassium Chloride Carbon Dioxide Anion Gap BUN Creatinine Estimated GFR POC Glucose 95 88 Random Glucose Lactic Acid Calcium Phosphorus Magnesium Total Bilirubin AST ALT Alkaline Phosphatase Total Protein Albumin Urine Color Yellow Urine Clarity Hazy H Urine pH 7.0 Ur Specific [place] 1.016 Urine Protein Negative Urine Glucose (UA) Negative Urine Ketones Negative Urine Occult Blood Negative Urine Nitrate Negative Urine Bilirubin Negative Urine Urobilinogen Less than 2 Ur Leukocyte Esterase Negative Urine RBC 3 Urine WBC 1 Hyaline Casts 1 Urine Mucus Few H Micro UA Comment Cath-culture not ind Urine Culture Comments Cath-cult not ind 06/01/18 06/01/18 01:04 06:14 WBC RBC Hgb Hct MCV MCH MCHC RDW Plt Count MPV Neut % (Auto) Lymph % (Auto) [place] % (Auto) Eos % (Auto) Baso % (Auto) Neut # (Auto) Lymph # (Auto) [place] # (Auto) Eos # (Auto) Baso # (Auto) WBC Differential Differential Comment Sodium Potassium Chloride Carbon Dioxide Anion Gap BUN Creatinine Estimated GFR POC Glucose 95 Random Glucose Lactic Acid 1.9 Calcium Phosphorus Magnesium Total Bilirubin AST ALT Alkaline Phosphatase Total Protein Albumin Urine Color Urine Clarity Urine pH Ur Specific [place] Urine Protein Urine Glucose (UA) Urine Ketones Urine Occult Blood Urine Nitrate Urine Bilirubin Urine Urobilinogen Ur Leukocyte Esterase Urine RBC Urine WBC Hyaline Casts Urine Mucus Micro UA Comment Urine Culture Comments Microbiology 05/29/18 16:30 Sputum - Endotracheal Gram Stain - Final 05/29/18 16:30 Sputum - Endotracheal Sputum Culture - Preliminary Pseudomonas aeruginosa Multidrug Resistant gram negative rods - Imaging Impressions Chest X-Ray 05/31/18 00:00 CONCLUSION: Minimal basilar atelectasis. Tracheostomy in good position. - Procedures NONE Assessment and Plan - Assessment (1) Hospital acquired PNA Code(s): J18.9 - Pneumonia, unspecified organism Status: Acute (2) Pseudomonas aeruginosa infection Code(s): A49.8 - Other bacterial infections of unspecified site Status: Acute - Plan 33-year-old male with history of anoxic brain injury admitted with sepsis from pneumonia Sepsis secondary to healthcare associated pneumonia Chronic tracheostomy Acute respiratory failure on chronic respiratory failure He has multidrug resistant organism -sputum culture positive for MDR PSAE and E coli ESBL 05/22 BCX with no growth Patient recently had azithromycin Infectious disease following, continue on IV Avycaz per their orders Pulmonology following, appreciate assistance. Repeat sputum culture + PSAE and GNR. Plan to change trach. Scheduled duo nebs Titrate oxygen as needed Continue tracheostomy care Levsin prn for secretions Fever, resolved 05/31 patient spiked temp 100.8, now afebrile. Blood cx with no growth x 1 day, continue to follow until finalized CXR shows minimal basilar atelectasis, images reviewed by me UA unremarkable monitor Seizure disorder History of anoxic brain injury Continue Keppra EEG negative for seizure activity Neurology following As needed Ativan Chronic G-tube Functioning G-tube IR consulted for assistance obstruction, resolved TF'ing resumed Diabetes mellitus type 2 Blood sugars well controlled Follow blood sugars Insulin sliding scale Diabetic diet RUE edema Hx of LUE DVT on Apixaban Doppler ultrasound negative for DVT Superficial wound inner aspect RUE Suspect adhesive reaction. No e/o infection. Monitor. Hypertension, now bradycardic and hypotensive Continue on Norvasc with hold parameters Hold Metoprolol May need to lower dose of Norvasc Continue to monitor BP and adjust treatment accordingly DVT prophylaxis Patient is on Eliquis Discussed Condition With: nursing staff, CM, Dr. Collado Discharge Planning: Discussed with case management, plan to discharge back to SNF facility once cleared by ID and pulmonology
--- NOTE | 2018-06-01 09:37 | P.PN ---
Subjective Interval history: obtunded no distress Physical Exam Vital signs: Vital Signs 05/31/18 11:30 05/31/18 12:00 05/31/18 15:31 Temperature 99 F Pulse Rate 80 80 Respiratory Rate 22 22 Blood Pressure 138/78 Pulse Oximetry 100 100 05/31/18 15:32 05/31/18 16:00 05/31/18 19:00 Temperature 98.9 F Pulse Rate 79 Respiratory Rate 22 20 Blood Pressure 113/58 L Pulse Oximetry 100 97 05/31/18 20:00 05/31/18 21:09 05/31/18 23:00 Temperature 98.2 F Pulse Rate 64 64 Respiratory Rate 20 20 20 Blood Pressure 123/75 Pulse Oximetry 100 06/01/18 00:00 06/01/18 03:00 06/01/18 03:55 Temperature 97.5 F L Pulse Rate 84 85 Respiratory Rate 20 20 16 Blood Pressure 144/75 H Pulse Oximetry 98 98 06/01/18 04:00 06/01/18 09:03 Temperature 97.8 F Pulse Rate 63 78 Respiratory Rate 18 18 Blood Pressure 107/76 Pulse Oximetry 100 100 Intake & Output 05/31/18 06/01/18 06/01/18 18:59 06:59 18:59 Intake Total 2585 / 2585 935 / 935 Output Total 1300 / 1300 801 / 801 Balance 1285 / 1285 134 / 134 Weight 70 kg Intake: IV 1700 / 1700 50 / 50 D5W/Normal Saline Inj 1,000 ML 1600 / 1600 @ 84 mls/hr IV.CONT .[id number] SHAYNA Rx#:[id number] Avycaz Inj 2.5 GM In NS Inj 50 100 / 100 50 / 50 ML @ 25 mls/hr IV.SIG Q8H SHAYNA Rx#:[id number] Oral 0 / 0 Tube Feeding 765 / 765 765 / 765 Tube Irrigant 60 / 60 60 / 60 Water Bolus Amount 60 / 60 60 / 60 Output: Urine 500 / 500 800 / 800 Stool 1 / 1 Urine Amount (Catheter) 800 / 800 Indwelling Urethral Catheter 800 / 800 Other: # Voids 3 Date of Last Bowel Movement 05/30/18 # Bowel Movements 0 # Incontinent Bowel Movements 1 Narrative: GENERAL: Well-developed well-nourished -[place]ong[place] male, INAD, A&Ox0. SKIN: Warm and dry. No generalized rash. + several small superficial wounds noted right upper inner arm below axilla, site of previous IV, ?adhesive reaction. No e/o infection. HEAD: Normocephalic. NECK: Supple, trachea midline. No lymphadenopathy. Tracheostomy in place. EYES: No scleral icterus. No injection or drainage. CARDIOVASCULAR: Regular rate and rhythm without murmurs, gallops, or rubs. RESPIRATORY: Breath sounds equal bilaterally. No accessory muscle use. GASTROINTESTINAL: Abdomen soft, non-tender, nondistended. PEG site C/D/I. MUSCULOSKELETAL: No cyanosis, or edema. Bilateral upper and lower extremity contractures noted. NEURO: Awake, nonverbal. Global neurological deficits of brain damage. - Urinary Catheter Management Indwelling Urethral Catheter Cath placed during this visit: yes, but has since been removed by the nurse Reason for continuing: Terminally ill/Comfort care Insertion date: 05/27/18 Insertion time: 10:00 Removal date: 05/26/18 Removal time: 10:00 Results - Labs CBC & Chem 7: 05/31/18 12:52 05/31/18 12:52 Laboratory Results - last 24 hr 05/31/18 05/31/18 05/31/18 12:46 12:52 12:52 WBC 5.1 RBC 4.49 L Hgb 14.1 Hct 41.9 MCV 93.3 MCH 31.3 MCHC 33.6 RDW 13.6 Plt Count 237 MPV 9.7 Neut % (Auto) 54.9 Lymph % (Auto) 29.2 [place] % (Auto) 13.9 H Eos % (Auto) 1.6 Baso % (Auto) 0.4 Neut # (Auto) 2.8 Lymph # (Auto) 1.5 [place] # (Auto) 0.7 Eos # (Auto) 0.1 Baso # (Auto) 0.0 WBC Differential . Differential Comment Auto diff final Sodium 143 Potassium 3.9 Chloride 108 H Carbon Dioxide 28.6 Anion Gap 6 BUN 11 Creatinine 0.61 Estimated GFR Greater than 89 POC Glucose 110 Random Glucose 106 Lactic Acid Calcium 8.9 Phosphorus 3.3 Magnesium 2.4 Total Bilirubin Less than 0.1 L AST 29 ALT 53 Alkaline Phosphatase 136 H Total Protein 7.7 D Albumin 3.4 Urine Color Urine Clarity Urine pH Ur Specific [place] Urine Protein Urine Glucose (UA) Urine Ketones Urine Occult Blood Urine Nitrate Urine Bilirubin Urine Urobilinogen Ur Leukocyte Esterase Urine RBC Urine WBC Hyaline Casts Urine Mucus Micro UA Comment Urine Culture Comments 05/31/18 05/31/18 05/31/18 17:44 17:45 23:38 WBC RBC Hgb Hct MCV MCH MCHC RDW Plt Count MPV Neut % (Auto) Lymph % (Auto) [place] % (Auto) Eos % (Auto) Baso % (Auto) Neut # (Auto) Lymph # (Auto) [place] # (Auto) Eos # (Auto) Baso # (Auto) WBC Differential Differential Comment Sodium Potassium Chloride Carbon Dioxide Anion Gap BUN Creatinine Estimated GFR POC Glucose 95 88 Random Glucose Lactic Acid Calcium Phosphorus Magnesium Total Bilirubin AST ALT Alkaline Phosphatase Total Protein Albumin Urine Color Yellow Urine Clarity Hazy H Urine pH 7.0 Ur Specific [place] 1.016 Urine Protein Negative Urine Glucose (UA) Negative Urine Ketones Negative Urine Occult Blood Negative Urine Nitrate Negative Urine Bilirubin Negative Urine Urobilinogen Less than 2 Ur Leukocyte Esterase Negative Urine RBC 3 Urine WBC 1 Hyaline Casts 1 Urine Mucus Few H Micro UA Comment Cath-culture not ind Urine Culture Comments Cath-cult not ind 06/01/18 06/01/18 01:04 06:14 WBC RBC Hgb Hct MCV MCH MCHC RDW Plt Count MPV Neut % (Auto) Lymph % (Auto) [place] % (Auto) Eos % (Auto) Baso % (Auto) Neut # (Auto) Lymph # (Auto) [place] # (Auto) Eos # (Auto) Baso # (Auto) WBC Differential Differential Comment Sodium Potassium Chloride Carbon Dioxide Anion Gap BUN Creatinine Estimated GFR POC Glucose 95 Random Glucose Lactic Acid 1.9 Calcium Phosphorus Magnesium Total Bilirubin AST ALT Alkaline Phosphatase Total Protein Albumin Urine Color Urine Clarity Urine pH Ur Specific [place] Urine Protein Urine Glucose (UA) Urine Ketones Urine Occult Blood Urine Nitrate Urine Bilirubin Urine Urobilinogen Ur Leukocyte Esterase Urine RBC Urine WBC Hyaline Casts Urine Mucus Micro UA Comment Urine Culture Comments Microbiology 05/29/18 16:30 Sputum - Endotracheal Gram Stain - Final 05/29/18 16:30 Sputum - Endotracheal Sputum Culture - Preliminary Pseudomonas aeruginosa Multidrug Resistant gram negative rods - Imaging Impressions Chest X-Ray 05/31/18 00:00 CONCLUSION: Minimal basilar atelectasis. Tracheostomy in good position. - Procedures NONE Assessment and Plan - Plan respiratory failure h/o anoxic encephalopathy s/p trach sepsis on antibiotics plan change trach. pulm toilet
[2018-06-01] MEDS: Morphine Sulfate Inj 2 MG/ML Vial IV.PUSH PRN (22:11)
[2018-06-02] MEDS: Insulin NovoLIN Regular Correctional Sugar Inj SQ SCH ×5 (05:51→23:58)
[2018-06-02] MEDS: Ceftazidime/Avibactam Inj 2.5 GM in Sodium Chlor 0.9% Inj 50 ML IV.SIG SCH ×3 (05:53→22:51)
--- NOTE | 2018-06-02 07:45 | P.PNNEU ---
Subjective Subjective Comments: No acute events reported Active Medications: Active Medications Acetaminophen (Tylenol) 650 mg PO Q4H PRN PRN Reason: Temp > 100.4 Last Admin: 05/30/18 23:53 Dose: 650 mg Al Hydroxide/Mg Hydroxide (Milk Of [place]my [place]) 30 ml PO Q12H PRN PRN Reason: Mild Constipation Albuterol (Duoneb Neb (Julian)) 1 ampul NEB Q6HR NEB [facility] Last Admin: 06/02/18 05:11 Dose: 1 ampul Albuterol (Albuterol Neb (Prn)) 2.5 mg NEB Q2HR NEB PRN PRN Reason: SHORTNESS OF BREATH Amlodipine Besylate (Norvasc) 10 mg PO DAILY [facility] Last Admin: 06/01/18 08:17 Dose: 10 mg Apixaban (Eliquis) 5 mg PO BID [facility] Last Admin: 06/01/18 22:12 Dose: 5 mg Baclofen (Lioresal) 20 mg PO Q8H [facility] Last Admin: 06/02/18 05:52 Dose: 20 mg Bisacodyl (Dulcolax Supp) 10 mg RECTAL DAILY PRN PRN Reason: SEVERE CONSITIPATION Dextrose (D50w Vial) 50 ml IV.PUSH UNSCH PRN PRN Reason: PER HYPOGLYCEMIA PROTOCOL Famotidine (Pepcid) 20 mg PO BID [facility] Last Admin: 06/01/18 22:12 Dose: 20 mg Glucagon (Glucagon Inj) 1 mg OTHER PRN PRN PRN Reason: for Hypoglycemia Protocol Hyoscyamine (Levsin) 0.125 mg PO Q4H PRN PRN Reason: Excessive Secreations Last Admin: 05/31/18 23:34 Dose: 0.125 mg Hyoscyamine (Levsin) 0.25 mg G-TUBE Q4H PRN PRN Reason: trach/secretions Last Admin: 05/29/18 10:04 Dose: 0.25 mg Ceftazidime/Avibactam 2.5 gm/ (Sodium Chloride) 50 mls @ 25 mls/hr IV.SIG Q8H [facility] Last Admin: 06/02/18 05:53 Dose: 25 mls/hr Insulin Human Regular (Novolin R Correctional Sugar Inj) 0 units SQ Q6HR [facility]; Protocol Last Admin: 06/02/18 05:55 Dose: Not Given Levetiracetam (Keppra Liq) 500 mg NG/OG TID [facility] Last Admin: 06/01/18 18:04 Dose: 500 mg Lorazepam (Ativan Inj) 1 mg IV.PUSH Q2H PRN PRN Reason: seizures Last Admin: 05/31/18 00:52 Dose: 1 mg Metoprolol Tartrate (Lopressor) 12.5 mg NG/OG BID [facility] Last Admin: 06/01/18 08:17 Dose: 12.5 mg Metoprolol Tartrate (Lopressor Inj) 5 mg IV.PUSH Q6H PRN PRN Reason: HR sustained > 110 Last Admin: 05/31/18 01:45 Dose: 5 mg Morphine Sulfate (Morphine Inj) 2 mg IV.PUSH Q4H PRN PRN Reason: PAIN 6-10 Last Admin: 06/01/18 22:11 Dose: 2 mg Ondansetron HCl (Zofran Inj) 4 mg IV.PUSH Q6H PRN PRN Reason: NAUSEA OR VOMITING Oxybutynin Chloride (Ditropan) 5 mg PO BID [facility] Last Admin: 06/01/18 22:12 Dose: 5 mg Senna/Docusate Sodium (Shala-Colace) 1 tab PO BID [facility] Last Admin: 06/01/18 22:13 Dose: 1 tab Sennosides (Senokot) 17.2 mg PO Q12H PRN PRN Reason: Moderate Constipation Sodium Chloride (Ns Flush) 2 ml IV.FLUSH BID [facility] Last Admin: 06/01/18 22:10 Dose: 2 ml Sodium Chloride (Ns Flush) 2 ml IV.FLUSH PRN PRN PRN Reason: FLUSH AFTER USING IV ACCESS Allergies/Adverse Reactions: Allergies Allergy/AdvReac Type Severity Reaction Status Date / Time haloperidol AdvReac Severe Seizures Verified 05/22/18 09:41 *MDRO Multi-Drug Resistant AdvReac Unknown Dry Mucus Uncoded 05/22/18 09:41 Organism Membranes Review of Systems unobtainable due to mental condition Physical Exam Vital signs: Vital Signs 06/01/18 08:10 06/01/18 09:03 06/01/18 10:13 Temperature 98.4 F Pulse Rate 78 78 52 L Respiratory Rate 24 18 Blood Pressure 130/81 Pulse Oximetry 100 100 06/01/18 12:00 06/01/18 14:14 06/01/18 16:00 Temperature 98 F 98.1 F Pulse Rate 61 56 L 71 Respiratory Rate 20 Blood Pressure 105/52 L 101/52 L Pulse Oximetry 20 L 100 06/01/18 16:06 06/01/18 20:00 06/01/18 21:11 Temperature 97.8 F Pulse Rate 56 L 62 62 Respiratory Rate 18 20 20 Blood Pressure 106/58 L Pulse Oximetry 100 99 06/02/18 00:00 06/02/18 04:00 06/02/18 05:14 Temperature 98 F 97.6 F Pulse Rate 57 L 62 56 L Respiratory Rate 20 20 18 Blood Pressure 163/75 H 107/66 Pulse Oximetry 100 100 Intake & Output 06/01/18 06/02/18 06/02/18 18:59 06:59 18:59 Intake Total 1058 / 1058 50 / 50 Output Total 925 / 925 1000 / 1000 Balance 133 / 133 -950 / -950 Weight 69.1 kg Intake: IV 100 / 100 50 / 50 Avycaz Inj 2.5 GM In NS Inj 50 100 / 100 50 / 50 ML @ 25 mls/hr IV.SIG Q8H [facility] Rx#:[id number] Tube Feeding 868 / 868 Tube Irrigant 90 / 90 Output: Urine 500 / 500 Urine Amount (Catheter) 925 / 925 500 / 500 Indwelling Urethral Catheter 925 / 925 500 / 500 Other: Date of Last Bowel Movement 05/30/18 Narrative: GENERAL: Appear comfortable. HEAD: Normocephalic. NECK: Supple, trachea midline. Tracheostomy in place. EYES: No scleral icterus. No injection or drainage. CARDIOVASCULAR: Regular rate and rhythm RESPIRATORY: Breath sounds equal bilaterally. No accessory muscle use. GASTROINTESTINAL: Abdomen soft, non-tender, nondistended. PEG site C/D/I. MUSCULOSKELETAL: No cyanosis, or edema. Bilateral upper and lower extremity contractures noted. NEURO: Awake, nonverbal. Not following, poor eye tracking, spastic paresis - Constitutional no acute distress - Routine HEENT Exam Head: Present: normocephalic - Urinary Catheter Management Indwelling Urethral Catheter Cath placed during this visit: yes, but has since been removed by the nurse Reason for continuing: Terminally ill/Comfort care Insertion date: 05/27/18 Insertion time: 10:00 Removal date: 05/26/18 Removal time: 10:00 Objective Laboratory Results - last 24 hr 06/01/18 06/01/18 06/01/18 11:56 17:10 22:09 POC Glucose 105 85 88 06/02/18 06/02/18 00:22 05:55 POC Glucose 93 101 Microbiology 05/29/18 16:30 Gram Stain - Final Sputum - Endotracheal Sputum Culture - Preliminary Pseudomonas aeruginosa Multidrug Resistant gram negative rods 05/31/18 12:46 Aerobic Blood Culture - Preliminary Blood - Peripheral No growth in 1 day Anaerobic Blood Culture - Preliminary No growth in 1 day 05/31/18 12:52 Aerobic Blood Culture - Preliminary Blood - Peripheral No growth in 1 day Anaerobic Blood Culture - Preliminary No growth in 1 day Review/Management - Diagnosis (1) Anoxic encephalopathy Code(s): G93.1 - Anoxic brain damage, not elsewhere classified Status: Acute Current Visit: Yes (2) Sepsis Code(s): A41.9 - Sepsis, unspecified organism Status: Acute Current Visit: Yes (3) Pneumonia Code(s): J18.9 - Pneumonia, unspecified organism Status: Acute Current Visit : Yes (4) Hospital acquired PNA Code(s): J18.9 - Pneumonia, unspecified organism Status: Acute Current Visit : Yes (5) Pseudomonas aeruginosa infection Code(s): A49.8 - Other bacterial infections of unspecified site Status: Acute Current Visit: Yes - Review/Management Plan: On [facility] Neurology stable We will follow peripherally Discharge planning back to snf once medically cleared (2) Sepsis Qualifiers: Sepsis type: sepsis due to unspecified organism Qualified Code(s): A41.9 - Sepsis, unspecified organism (3) Pneumonia Qualifiers: Pneumonia type: due to unspecified organism Laterality: unspecified laterality Lung location: unspecified part of lung Qualified Code(s): J18.9 - Pneumonia, unspecified organism
--- NOTE | 2018-06-02 07:53 | P.PN ---
Subjective Interval history: Follow up on patient with sepsis, HCAP, acute on chronic respiratory failure. Patient seen and examined. s/p trach change yesterday. He is nonverbal. Patient's mother is at the bedside. She states she feels that he is near baseline. She states that his tube feedings normally run at 94 cc/h. Discussed with nursing staff, no acute issues noted. Physical Exam Vital signs: Vital Signs 06/01/18 08:10 06/01/18 09:03 06/01/18 10:13 Temperature 98.4 F Pulse Rate 78 78 52 L Respiratory Rate 24 18 Blood Pressure 130/81 Pulse Oximetry 100 100 06/01/18 12:00 06/01/18 14:14 06/01/18 16:00 Temperature 98 F 98.1 F Pulse Rate 61 56 L 71 Respiratory Rate 20 Blood Pressure 105/52 L 101/52 L Pulse Oximetry 20 L 100 06/01/18 16:06 06/01/18 20:00 06/01/18 21:11 Temperature 97.8 F Pulse Rate 56 L 62 62 Respiratory Rate 18 20 20 Blood Pressure 106/58 L Pulse Oximetry 100 99 06/02/18 00:00 06/02/18 04:00 06/02/18 05:14 Temperature 98 F 97.6 F Pulse Rate 57 L 62 56 L Respiratory Rate 20 20 18 Blood Pressure 163/75 H 107/66 Pulse Oximetry 100 100 Intake & Output 06/01/18 06/02/18 06/02/18 18:59 06:59 18:59 Intake Total 1058 / 1058 50 / 50 Output Total 925 / 925 1000 / 1000 Balance 133 / 133 -950 / -950 Weight 69.1 kg Intake: IV 100 / 100 50 / 50 Avycaz Inj 2.5 GM In NS Inj 50 100 / 100 50 / 50 ML @ 25 mls/hr IV.SIG Q8H [facility] Rx#:[id number] Tube Feeding 868 / 868 Tube Irrigant 90 / 90 Output: Urine 500 / 500 Urine Amount (Catheter) 925 / 925 500 / 500 Indwelling Urethral Catheter 925 / 925 500 / 500 Other: Date of Last Bowel Movement 05/30/18 Narrative: GENERAL: Well-developed well-nourished -[place] male, INAD, A&Ox0. Appears comfortable. Mother is at the bedside. SKIN: Warm and dry. No generalized rash. + several small superficial wounds noted right upper inner arm below axilla, healing well without any e/o infection. HEAD: Normocephalic. NECK: Supple, trachea midline. No lymphadenopathy. Tracheostomy in place. EYES: No scleral icterus. No injection or drainage. CARDIOVASCULAR: Regular rate and rhythm without murmurs, gallops, or rubs. RESPIRATORY: Breath sounds equal bilaterally. No accessory muscle use. GASTROINTESTINAL: Abdomen soft, non-tender, nondistended. PEG site C/D/I. MUSCULOSKELETAL: No cyanosis, or edema. Bilateral upper and lower extremity contractures noted. NEURO: Awake, nonverbal. Global neurological deficits of brain damage. - Urinary Catheter Management Indwelling Urethral Catheter Cath placed during this visit: yes, but has since been removed by the nurse Reason for continuing: Terminally ill/Comfort care Insertion date: 05/27/18 Insertion time: 10:00 Removal date: 05/26/18 Removal time: 10:00 Results - Labs CBC & Chem 7: 05/31/18 12:52 05/31/18 12:52 Laboratory Results - last 24 hr 06/01/18 06/01/18 06/01/18 11:56 17:10 22:09 POC Glucose 105 85 88 06/02/18 06/02/18 00:22 05:55 POC Glucose 93 101 Microbiology 05/29/18 16:30 Sputum - Endotracheal Gram Stain - Final 05/29/18 16:30 Sputum - Endotracheal Sputum Culture - Final Pseudomonas aeruginosa Multidrug Resistant Providencia stuartii 05/31/18 12:46 Blood - Peripheral Aerobic Blood Culture - Preliminary No growth in 1 day 05/31/18 12:46 Blood - Peripheral Anaerobic Blood Culture - Preliminary No growth in 1 day 05/31/18 12:52 Blood - Peripheral Aerobic Blood Culture - Preliminary No growth in 1 day 05/31/18 12:52 Blood - Peripheral Anaerobic Blood Culture - Preliminary No growth in 1 day - Imaging ITS Impressions Venous Doppler Study 05/29/18 00:00 CONCLUSION: Limited by body habitus otherwise negative Chest X-Ray 05/31/18 00:00 CONCLUSION: Minimal basilar atelectasis. Tracheostomy in good position. - Procedures NONE Assessment and Plan - Assessment (1) Hospital acquired PNA Code(s): J18.9 - Pneumonia, unspecified organism Status: Acute (2) Pseudomonas aeruginosa infection Code(s): A49.8 - Other bacterial infections of unspecified site Status: Acute - Plan 33-year-old male with history of anoxic brain injury admitted with sepsis from pneumonia Sepsis secondary to healthcare associated pneumonia Chronic tracheostomy Acute respiratory failure on chronic respiratory failure He has multidrug resistant organism -sputum culture positive for MDR PSAE and E coli ESBL 05/22 BCX with no growth Patient recently had azithromycin Infectious disease following. Discussed with Dr. Josue, discontinue IV antibiotics. Pulmonology following, appreciate assistance. Repeat sputum culture + PSAE and GNR. Trach change yesterday. Scheduled duo nebs Titrate oxygen as needed Continue tracheostomy care Levsin prn for secretions Fever, resolved 05/31 patient spiked temp 100.8, now afebrile x 48hrs Blood cx with no growth x 2 day, continue to follow until finalized CXR shows minimal basilar atelectasis, images reviewed by me UA unremarkable monitor Seizure disorder History of anoxic brain injury Continue Keppra EEG negative for seizure activity Neurology following. Confirmed with Dr. Rosario patient can continue with Keppra alone As needed [facility] Chronic G-tube Functioning G-tube IR consulted for assistance obstruction, resolved TF'ing resumed - per mother tube feeding at 94cc/hr at [facility] facility. DW Dr. Collado, keep tube feeds at dietitian recommendation 50 cc/h Diabetes mellitus type 2 Blood sugars well controlled Follow blood sugars Insulin sliding scale Diabetic diet RUE edema Hx of LUE DVT on Apixaban Doppler ultrasound negative for DVT Superficial wound inner aspect RUE healing well, no e/o infection Monitor Hypertension, now hypotensive and bradycardic Discussed with mother at length at bedside who stated BP meds given PRN at [facility] facility d/c scheduled antihypertensives IV Vasotec and Metoprolol prn Continue to monitor BP and adjust treatment accordingly DVT prophylaxis Patient is on Eliquis Discussed Condition With: mother, nursing staff, Dr. Collado, Dr. Josue and Dr. Rosario Discharge Planning: Discussed with case management, plan to discharge back to [facility] facility once cleared by ID and pulmonology
[2018-06-02] MEDS ORDERED: amLODIPine 5 MG Tablet PO SCH (09:00)
[2018-06-02] MEDS: Famotidine 20 MG Tablet PO SCH ×2 (10:01→22:52)
[2018-06-02] MEDS: Senna/Docusate Sodium 8.6/50 MG Tablet PO SCH ×2 (10:02→22:52)
--- NOTE | 2018-06-02 20:03 | P.PN ---
Subjective Interval history: ALERT NON VERBAL NO SOB Physical Exam Vital signs: Vital Signs 06/01/18 21:11 06/02/18 00:00 06/02/18 04:00 Temperature 98 F 97.6 F Pulse Rate 62 57 L 62 Respiratory Rate 20 20 20 Blood Pressure 163/75 H 107/66 Pulse Oximetry 100 100 06/02/18 05:14 06/02/18 08:00 06/02/18 09:27 Temperature 98.7 F Pulse Rate 56 L 55 L 55 L Respiratory Rate 18 18 18 Blood Pressure 107/53 L Pulse Oximetry 98 100 06/02/18 12:00 06/02/18 16:00 Temperature 98.0 F 98.0 F Pulse Rate 51 L 47 L Respiratory Rate 18 14 Blood Pressure 120/58 L 106/52 L Pulse Oximetry 97 96 Intake & Output 06/02/18 06/02/18 06/03/18 06:59 18:59 06:59 Intake Total 50 / 50 900 / 900 Output Total 1000 / 1000 1000 / 1000 Balance -950 / -950 -100 / -100 Weight 69.1 kg Intake: IV 50 / 50 300 / 300 Avycaz Inj 2.5 GM In NS Inj 50 50 / 50 300 / 300 ML @ 25 mls/hr IV.SIG Q8H [facility] Rx#:[id number] Tube Feeding 600 / 600 Output: Urine 500 / 500 1000 / 1000 Urine Amount (Catheter) 500 / 500 Indwelling Urethral Catheter 500 / 500 Other: Date of Last Bowel Movement 05/30/18 07/02/18 Narrative: GENERAL: Well-developed well-nourished -[place] male, INAD, A&Ox0. Appears comfortable. Mother is at the bedside. SKIN: Warm and dry. No generalized rash. + several small superficial wounds noted right upper inner arm below axilla, healing well without any e/o infection. HEAD: Normocephalic. NECK: Supple, trachea midline. No lymphadenopathy. Tracheostomy in place. EYES: No scleral icterus. No injection or drainage. CARDIOVASCULAR: Regular rate and rhythm without murmurs, gallops, or rubs. RESPIRATORY: Breath sounds equal bilaterally. No accessory muscle use. GASTROINTESTINAL: Abdomen soft, non-tender, nondistended. PEG site C/D/I. MUSCULOSKELETAL: No cyanosis, or edema. Bilateral upper and lower extremity contractures noted. NEURO: Awake, nonverbal. Global neurological deficits of brain damage. - Urinary Catheter Management Indwelling Urethral Catheter Cath placed during this visit: yes, but has since been removed by the nurse Reason for continuing: Terminally ill/Comfort care Insertion date: 05/27/18 Insertion time: 10:00 Removal date: 05/26/18 Removal time: 10:00 Results - Labs CBC & Chem 7: 05/31/18 12:52 05/31/18 12:52 Laboratory Results - last 24 hr 06/01/18 06/02/18 06/02/18 22:09 00:22 05:55 POC Glucose 88 93 101 Microbiology 05/31/18 12:46 Blood - Peripheral Aerobic Blood Culture - Preliminary No growth in 2 days 05/31/18 12:46 Blood - Peripheral Anaerobic Blood Culture - Preliminary No growth in 2 days 05/31/18 12:52 Blood - Peripheral Aerobic Blood Culture - Preliminary No growth in 2 days 05/31/18 12:52 Blood - Peripheral Anaerobic Blood Culture - Preliminary No growth in 2 days 05/29/18 16:30 Sputum - Endotracheal Gram Stain - Final 05/29/18 16:30 Sputum - Endotracheal Sputum Culture - Final Pseudomonas aeruginosa Multidrug Resistant Providencia stuartii - Procedures NONE Assessment and Plan - Plan respiratory failure h/o anoxic encephalopathy s/p trach sepsis on antibiotics plan changed trach.well tolerated mom happy pulm toilet
[2018-06-03] MEDS: Ceftazidime/Avibactam Inj 2.5 GM in Sodium Chlor 0.9% Inj 50 ML IV.SIG SCH ×2 (05:40→13:54)
[2018-06-03] MEDS: Insulin NovoLIN Regular Correctional Sugar Inj SQ SCH ×3 (06:05→17:52)
--- NOTE | 2018-06-03 07:06 | XR ---
EXAM DATE: 06/03/2018 6:58 AM EDT AGE/SEX: 33 years / Male INDICATIONS: Short of breath, evaluate respiratory disease CLINICAL DATA: This is the patient's subsequent encounter. Patient reports that signs and symptoms h ave been present for 1 day and indicates a pain score of Nonresponsive. MEDICAL/SURGICAL HISTORY: Diabetes. Hypertension. Gastroesophageal reflux disease. paralysis , contracted . tracheostomy [place] [facility] [place]. . FINDINGS: A single AP view of the chest demonstrates the lungs to be symmetrically aerated without evidence of mass, consolidation, or effusion. No appreciable pneumothorax. The cardiomediastinal contours are sta ble at upper limits of normal. Tracheostomy tube remains in appropriate position. CONCLUSION: Tracheostomy tube in appropriate position. No focal consolidation. Electronically signed by: Vee Langston MD 06/03/2018 7:05 AM EDT
--- NOTE | 2018-06-03 09:11 | P.PN ---
Subjective Interval history: NO DISTRESS TRACH OK Physical Exam Vital signs: Vital Signs 06/02/18 09:27 06/02/18 12:00 06/02/18 16:00 Temperature 98.0 F 98.0 F Pulse Rate 55 L 51 L 47 L Respiratory Rate 18 18 14 Blood Pressure 120/58 L 106/52 L Pulse Oximetry 100 97 96 06/02/18 20:00 06/02/18 21:41 06/03/18 00:50 Temperature 98.9 F 98 F Pulse Rate 54 L 65 Respiratory Rate 18 18 Blood Pressure 165/65 H 132/71 Pulse Oximetry 96 96 96 06/03/18 01:06 06/03/18 02:00 06/03/18 04:04 Temperature Pulse Rate 60 Respiratory Rate Blood Pressure Pulse Oximetry 96 96 06/03/18 06:00 Temperature 98.9 F Pulse Rate 58 L Respiratory Rate 19 Blood Pressure 150/65 H Pulse Oximetry 100 Intake & Output 06/02/18 06/03/18 06/03/18 18:59 06:59 18:59 Intake Total 900 / 900 50 / 50 600 / 600 Output Total 1000 / 1000 1500 / 1500 Balance -100 / -100 -1450 / -1450 600 / 600 Weight 69.1 kg Intake: IV 300 / 300 50 / 50 Avycaz Inj 2.5 GM In NS Inj 50 300 / 300 50 / 50 ML @ 25 mls/hr IV.SIG Q8H [facility] Rx#:[id number] Oral 0 / 0 Tube Feeding 600 / 600 600 / 600 Output: Urine 1000 / 1000 Urine Amount (Catheter) 1500 / 1500 Indwelling Urethral Catheter 1500 / 1500 Other: Date of Last Bowel Movement 07/02/18 06/02/18 # Bowel Movements 0 Narrative: GENERAL: Well-developed well-nourished -[place] male, INAD, A&Ox0. Appears comfortable. Mother is at the bedside. SKIN: Warm and dry. No generalized rash. + several small superficial wounds noted right upper inner arm below axilla, healing well without any e/o infection. HEAD: Normocephalic. NECK: Supple, trachea midline. No lymphadenopathy. Tracheostomy in place. EYES: No scleral icterus. No injection or drainage. CARDIOVASCULAR: Regular rate and rhythm without murmurs, gallops, or rubs. RESPIRATORY: Breath sounds equal bilaterally. No accessory muscle use. GASTROINTESTINAL: Abdomen soft, non-tender, nondistended. PEG site C/D/I. MUSCULOSKELETAL: No cyanosis, or edema. Bilateral upper and lower extremity contractures noted. NEURO: Awake, nonverbal. Global neurological deficits of brain damage. - Urinary Catheter Management Indwelling Urethral Catheter Cath placed during this visit: yes, but has since been removed by the nurse Reason for continuing: Terminally ill/Comfort care Insertion date: 05/27/18 Insertion time: 10:00 Removal date: 05/26/18 Removal time: 10:00 Results - Labs CBC & Chem 7: 05/31/18 12:52 05/31/18 12:52 Laboratory Results - last 24 hr 06/02/18 06/03/18 23:52 05:53 POC Glucose 91 97 Microbiology 05/31/18 12:46 Blood - Peripheral Aerobic Blood Culture - Preliminary No growth in 2 days 05/31/18 12:46 Blood - Peripheral Anaerobic Blood Culture - Preliminary No growth in 2 days 05/31/18 12:52 Blood - Peripheral Aerobic Blood Culture - Preliminary No growth in 2 days 05/31/18 12:52 Blood - Peripheral Anaerobic Blood Culture - Preliminary No growth in 2 days 05/29/18 16:30 Sputum - Endotracheal Gram Stain - Final 05/29/18 16:30 Sputum - Endotracheal Sputum Culture - Final Pseudomonas aeruginosa Multidrug Resistant Providencia stuartii - Imaging Impressions Chest X-Ray 06/03/18 07:00 CONCLUSION: Tracheostomy tube in appropriate position. No focal consolidation. - Procedures NONE Assessment and Plan - Plan respiratory failure h/o anoxic encephalopathy s/p trach sepsis on antibiotics plan changed trach.well tolerated mom happy pulm toilet
[2018-06-03] MEDS: Senna/Docusate Sodium 8.6/50 MG Tablet PO SCH (12:15)
[2018-06-03] MEDS: Famotidine 20 MG Tablet PO SCH (12:16)
--- NOTE | 2018-06-03 15:38 | P.PNID ---
Subjective Remarks: afebrile normal WBC CXR negative for cnsolidations Antibiotics: meropenem vancomycin Allergies/Adverse Reactions: Allergies haloperidol Adverse Reaction (Severe, Verified 05/22/18 09:41) Seizures *MDRO Multi-Drug Resistant Organism Adverse Reaction (Unknown, Uncoded 05/22/18 09:41) Dry Mucus Membranes MRSA (sputum) - 04/25/16 & 05/23/16 MRSA PCR Screen POSITIVE - 04/25/2016 ESBL+E.Coli (blood-05/22/16) Objective Vital Signs 06/02/18 16:00 06/02/18 20:00 06/02/18 21:41 Temperature 98.0 F 98.9 F Pulse Rate 47 L 54 L Respiratory Rate 14 18 Blood Pressure 106/52 L 165/65 H Pulse Oximetry 96 96 96 06/03/18 00:50 06/03/18 01:06 06/03/18 02:00 Temperature 98 F Pulse Rate 65 60 Respiratory Rate 18 Blood Pressure 132/71 Pulse Oximetry 96 96 06/03/18 04:04 06/03/18 06:00 06/03/18 08:00 Temperature 98.9 F 98.6 F Pulse Rate 58 L 47 L Respiratory Rate 19 20 Blood Pressure 150/65 H 111/57 L Pulse Oximetry 96 100 100 06/03/18 09:58 06/03/18 10:45 06/03/18 12:00 Temperature 98 F Pulse Rate 48 L 49 L Respiratory Rate 16 20 Blood Pressure 129/65 Pulse Oximetry 98 100 Intake & Output 06/02/18 06/03/18 06/03/18 18:59 06:59 18:59 Intake Total 900 / 900 50 / 50 650 / 650 Output Total 1000 / 1000 1500 / 1500 Balance -100 / -100 -1450 / -1450 650 / 650 Weight 69.1 kg Intake: IV 300 / 300 50 / 50 50 / 50 Avycaz Inj 2.5 GM In NS Inj 50 300 / 300 50 / 50 50 / 50 ML @ 25 mls/hr IV.SIG Q8H [facility] Rx#:[id number] Oral 0 / 0 Tube Feeding 600 / 600 600 / 600 Output: Urine 1000 / 1000 Urine Amount (Catheter) 1500 / 1500 Indwelling Urethral Catheter 1500 / 1500 Other: Date of Last Bowel Movement 07/02/18 06/02/18 # Bowel Movements 0 05/31/18 12:46 Blood - Peripheral Aerobic Blood Culture - Preliminary No growth in 3 days 05/31/18 12:46 Blood - Peripheral Anaerobic Blood Culture - Preliminary No growth in 3 days 05/31/18 12:52 Blood - Peripheral Aerobic Blood Culture - Preliminary No growth in 3 days 05/31/18 12:52 Blood - Peripheral Anaerobic Blood Culture - Preliminary No growth in 3 days 05/29/18 16:30 Sputum - Endotracheal Gram Stain - Final 05/29/18 16:30 Sputum - Endotracheal Sputum Culture - Final Pseudomonas aeruginosa Multidrug Resistant Providencia stuartii Lab - Chemistry Results 06/01/18 06/01/18 06/02/18 17:10 22:09 00:22 POC Glucose 85 88 93 06/02/18 06/02/18 06/03/18 05:55 23:52 05:53 POC Glucose 101 91 97 06/03/18 12:29 POC Glucose 78 Imaging: ITS Impressions Venous Doppler Study 05/29/18 00:00 CONCLUSION: Limited by body habitus otherwise negative Chest X-Ray 06/03/18 07:00 CONCLUSION: Tracheostomy tube in appropriate position. No focal consolidation. Physical Exam: GENERAL: NAD SKIN: Warm and dry. HEAD: Atraumatic. Normocephalic. EYES: Pupils equal and round. No scleral icterus. No injection or drainage. ENT: No nasal bleeding or discharge. Mucous membranes pink and moist. Large amount of lex saliva from the mouth NECK: Trachea midline. Trach in place + secretions CARDIOVASCULAR: Regular rate and rhythm. NO murmurs refill is brisk RESPIRATORY: No accessory muscle use. Scattered rhonchi to auscultation. Breath sounds equal bilaterally. GASTROINTESTINAL: Abdomen soft, non-tender, nondistended. Hepatic and splenic margins not palpable. PRG in place - OK MUSCULOSKELETAL: Extremities without clubbing, cyanosis, or edema. No obvious deformities. NEUROLOGICAL: Awake unresponsive, posturing - at baseline PSYCHIATRIC: unable to assess Assessment and Plan - Plan Bronchopneumonia - MDRO PSAE improved clinically and radiologically OK to dc NO need to cont abx as o/p
--- NOTE | 2018-06-03 16:10 | P.DS ---
<Nelsy Moscoso - Last Filed: 06/03/18 16:00> Date of admission: 05/22/18 10:36 Primary care physician: Britton Samuels MD Attending physician on discharge: Shannon Jonathanliana Anticipated date of discharge: 06/03/18 Brief History from admission: This is a 33-year-old male with history of anoxic brain injury with aphasia and seizure disorder, status post tracheostomy and PEG tube placement, diabetes mellitus, hypertension, pancreatitis lives in [facility] with frequent history of pneumonia presented to the hospital with pneumonia who failed outpatient treatment. Per patient's mother, the patient was diagnosed by [facility] physician with pneumonia about 1 week ago. Patient was placed on azithromycin and is finished 1 week of treatment. There was no improvement with patient's symptoms including cough productive with brownish to yellowish sputum, and fever. Patient was then sent to the hospital for unremitting fever. Of note, patient was last hospitalized for pneumonia in December 2017 with colonization of E. coli ESBL and Pseudomonas. During which, he responded to Zosyn for Proteus, Klebsiella, Acinetobacter and Pseudomonas. Patient is nonverbal, no meaningful history can be taken from the patient. DS: Diagnosis - Discharge Diagnosis (1) Hospital acquired PNA Status: Acute (2) Pseudomonas aeruginosa infection Status: Acute (3) Colonization with multidrug-resistant bacteria Status: Acute (4) Sepsis Status: Acute (5) Pneumonia Status: Acute (6) Anoxic encephalopathy Status: Acute DS: Medications - Discharge Medications Prescriptions: amlodipine [Norvasc] 5 mg PO DAILY #30 tab DS: Summary Hospital Course: Patient started on IV Zosyn for HCAP. Patient seen in consultation by infectious disease and pulmonary medicine. Sputum culture was obtained and grew Pseudomonas, MDRO and E. coli ESBL. Antibiotics were changed to IV Avycaz. Due to concern for possible seizure activity, patient was seen in consultation by neurology. EEG was obtained and was negative. Patient was continued on Keppra. Patient was noted to have malfunctioning GJ tube. IR was consulted. Patient's trach was changed. Patient completed his course of IV antibiotics with no further need for abx as outpatient per ID. Patient was cleared for discharge from pulmonary medicine and infectious disease. He was stable at time of transfer back to SNF facility. - Time Spent with Patient Total time spent providing and/or coordinating discharge services: Greater than 30 minutes - Quality: VTE Deep Vein Thrombosis/Pulmonary Embolism Present on Admission: No Exam Vital signs: Vital Signs 06/02/18 20:00 06/02/18 21:41 06/03/18 00:50 Temperature 98.9 F 98 F Pulse Rate 54 L 65 Respiratory Rate 18 18 Blood Pressure 165/65 H 132/71 Pulse Oximetry 96 96 96 06/03/18 01:06 06/03/18 02:00 06/03/18 04:04 Temperature Pulse Rate 60 Respiratory Rate Blood Pressure Pulse Oximetry 96 96 06/03/18 06:00 06/03/18 08:00 06/03/18 09:58 Temperature 98.9 F 98.6 F Pulse Rate 58 L 47 L Respiratory Rate 19 20 Blood Pressure 150/65 H 111/57 L Pulse Oximetry 100 100 98 06/03/18 10:45 06/03/18 12:00 Temperature 98 F Pulse Rate 48 L 49 L Respiratory Rate 16 20 Blood Pressure 129/65 Pulse Oximetry 100 Intake & Output 06/02/18 06/03/18 06/03/18 18:59 06:59 18:59 Intake Total 900 / 900 50 / 50 650 / 650 Output Total 1000 / 1000 1500 / 1500 Balance -100 / -100 -1450 / -1450 650 / 650 Weight 69.1 kg Intake: IV 300 / 300 50 / 50 50 / 50 Avycaz Inj 2.5 GM In NS Inj 50 300 / 300 50 / 50 50 / 50 ML @ 25 mls/hr IV.SIG Q8H [facility] Rx#:[id number] Oral 0 / 0 Tube Feeding 600 / 600 600 / 600 Output: Urine 1000 / 1000 Urine Amount (Catheter) 1500 / 1500 Indwelling Urethral Catheter 1500 / 1500 Other: Date of Last Bowel Movement 07/02/18 06/02/18 # Bowel Movements 0 Narrative: GENERAL: Well-developed well-nourished -[place] male, INAD, A&Ox0. Appears comfortable. Mother is at the bedside. SKIN: Warm and dry. No generalized rash. + several small superficial wounds noted right upper inner arm below axilla, healing well without any e/o infection. HEAD: Normocephalic. NECK: Supple, trachea midline. No lymphadenopathy. Tracheostomy in place. EYES: No scleral icterus. No injection or drainage. CARDIOVASCULAR: Regular rate and rhythm without murmurs, gallops, or rubs. RESPIRATORY: Breath sounds equal bilaterally. No accessory muscle use. GASTROINTESTINAL: Abdomen soft, non-tender, nondistended. PEG site C/D/I. MUSCULOSKELETAL: No cyanosis, or edema. Bilateral upper and lower extremity contractures noted. NEURO: Awake, nonverbal. Global neurological deficits of brain damage. Results Procedures completed during hospitalization: NONE Labs on day of discharge: Labs from last 24 hours 06/03/18 06/03/18 06/02/18 12:29 05:53 23:52 POC Glucose 78 97 91 Preliminary micro results at discharge 05/31/18 12:46 Aerobic Blood Culture - Preliminary Blood - Peripheral No growth in 3 days Anaerobic Blood Culture - Preliminary No growth in 3 days 05/31/18 12:52 Aerobic Blood Culture - Preliminary Blood - Peripheral No growth in 3 days Anaerobic Blood Culture - Preliminary No growth in 3 days - Impressions ITS Impressions Venous Doppler Study 05/29/18 00:00 CONCLUSION: Limited by body habitus otherwise negative Chest X-Ray 06/03/18 07:00 CONCLUSION: Tracheostomy tube in appropriate position. No focal consolidation. <Shannon Collado - Last Filed: 06/05/18 17:18> Date of admission: 05/22/18 10:36 Primary care physician: Britton Samuels MD DS: Summary - Time Spent with Patient Total time spent providing and/or coordinating discharge services: Results - Impressions ITS Impressions Venous Doppler Study 05/29/18 00:00 CONCLUSION: Limited by body habitus otherwise negative Chest X-Ray 06/03/18 07:00 CONCLUSION: Tracheostomy tube in appropriate position. No focal consolidation. Discharge Plan - Discharge Order Discharge Orders: Discharge Order (Routine); Ordered 06/03/18 Ordered By: Nelsy Moscoso - Discharge Details Anticipated Discharge Date: 06/03/18 - Physicians Team Primary Care Provider: Britton Samuels Attending Provider: Shannon Collado Other Providers: Nannette Josue MD ; Duran Rosario MD ; Saji Cho MD ; [facility],Agency
--- NOTE | 2018-06-03 16:42 | P.PN ---
Subjective Interval history: Follow up on patient with sepsis, HCAP, acute on chronic respiratory failure. Patient seen and examined. Patient is nonverbal, history of anoxic brain injury. Mother is at the bedside. No acute events overnight. Physical Exam Vital signs: Vital Signs 06/02/18 20:00 06/02/18 21:41 06/03/18 00:50 Temperature 98.9 F 98 F Pulse Rate 54 L 65 Respiratory Rate 18 18 Blood Pressure 165/65 H 132/71 Pulse Oximetry 96 96 96 06/03/18 01:06 06/03/18 02:00 06/03/18 04:04 Temperature Pulse Rate 60 Respiratory Rate Blood Pressure Pulse Oximetry 96 96 06/03/18 06:00 06/03/18 08:00 06/03/18 09:58 Temperature 98.9 F 98.6 F Pulse Rate 58 L 47 L Respiratory Rate 19 20 Blood Pressure 150/65 H 111/57 L Pulse Oximetry 100 100 98 06/03/18 10:45 06/03/18 12:00 Temperature 98 F Pulse Rate 48 L 49 L Respiratory Rate 16 20 Blood Pressure 129/65 Pulse Oximetry 100 Intake & Output 06/02/18 06/03/18 06/03/18 18:59 06:59 18:59 Intake Total 900 / 900 50 / 50 650 / 650 Output Total 1000 / 1000 1500 / 1500 Balance -100 / -100 -1450 / -1450 650 / 650 Weight 69.1 kg Intake: IV 300 / 300 50 / 50 50 / 50 Avycaz Inj 2.5 GM In NS Inj 50 300 / 300 50 / 50 50 / 50 ML @ 25 mls/hr IV.SIG Q8H [facility] Rx#:[id number] Oral 0 / 0 Tube Feeding 600 / 600 600 / 600 Output: Urine 1000 / 1000 Urine Amount (Catheter) 1500 / 1500 Indwelling Urethral Catheter 1500 / 1500 Other: Date of Last Bowel Movement 07/02/18 06/02/18 # Bowel Movements 0 Narrative: GENERAL: Well-developed well-nourished -Portuguese male, INAD, A&Ox0. Appears comfortable. Mother is at the bedside. SKIN: Warm and dry. No generalized rash. + several small superficial wounds noted right upper inner arm below axilla, healing well without any e/o infection. HEAD: Normocephalic. NECK: Supple, trachea midline. No lymphadenopathy. Tracheostomy in place. EYES: No scleral icterus. No injection or drainage. CARDIOVASCULAR: Regular rate and rhythm without murmurs, gallops, or rubs. RESPIRATORY: Breath sounds equal bilaterally. No accessory muscle use. GASTROINTESTINAL: Abdomen soft, non-tender, nondistended. PEG site C/D/I. MUSCULOSKELETAL: No cyanosis, or edema. Bilateral upper and lower extremity contractures noted. NEURO: Awake, nonverbal. Global neurological deficits of brain damage. - Urinary Catheter Management Indwelling Urethral Catheter Cath placed during this visit: yes, but has since been removed by the nurse Reason for continuing: Terminally ill/Comfort care Insertion date: 05/27/18 Insertion time: 10:00 Removal date: 05/26/18 Removal time: 10:00 Results - Labs CBC & Chem 7: 05/31/18 12:52 05/31/18 12:52 Laboratory Results - last 24 hr 06/02/18 06/03/18 06/03/18 23:52 05:53 12:29 POC Glucose 91 97 78 Microbiology 05/31/18 12:46 Blood - Peripheral Aerobic Blood Culture - Preliminary No growth in 3 days 05/31/18 12:46 Blood - Peripheral Anaerobic Blood Culture - Preliminary No growth in 3 days 05/31/18 12:52 Blood - Peripheral Aerobic Blood Culture - Preliminary No growth in 3 days 05/31/18 12:52 Blood - Peripheral Anaerobic Blood Culture - Preliminary No growth in 3 days - Imaging Impressions Chest X-Ray 06/03/18 07:00 CONCLUSION: Tracheostomy tube in appropriate position. No focal consolidation. - Procedures NONE Assessment and Plan - Assessment (1) Hospital acquired PNA Code(s): J18.9 - Pneumonia, unspecified organism Status: Acute (2) Pseudomonas aeruginosa infection Code(s): A49.8 - Other bacterial infections of unspecified site Status: Acute (3) Colonization with multidrug-resistant bacteria Code(s): Z22.322 - Carrier or suspected carrier of Methicillin resistant Staphylococcus aureus Status: Acute (4) Sepsis Code(s): A41.9 - Sepsis, unspecified organism Status: Acute (5) Pneumonia Code(s): J18.9 - Pneumonia, unspecified organism Status: Acute (6) Anoxic encephalopathy Code(s): G93.1 - Anoxic brain damage, not elsewhere classified Status: Acute - Plan 33-year-old male with history of anoxic brain injury admitted with sepsis from pneumonia Sepsis secondary to healthcare associated pneumonia Chronic tracheostomy Acute respiratory failure on chronic respiratory failure He has multidrug resistant organism -sputum culture positive for MDR PSAE and E coli ESBL 05/22 BCX with no growth Patient recently had azithromycin Infectious disease following. Discussed with Dr. Josue, discontinue IV antibiotics. Pulmonology following, appreciate assistance. Repeat sputum culture + PSAE and GNR. Trach change yesterday. Scheduled duo nebs Titrate oxygen as needed Continue tracheostomy care Levsin prn for secretions Fever, resolved 05/31 patient spiked temp 100.8, now afebrile x 48hrs Blood cx with no growth x 2 day, continue to follow until finalized CXR shows minimal basilar atelectasis, images reviewed by me UA unremarkable monitor Seizure disorder History of anoxic brain injury Continue Keppra EEG negative for seizure activity Neurology following. Confirmed with Dr. Rosario patient can continue with Keppra alone As needed Ativan Chronic G-tube Functioning G-tube IR consulted for assistance obstruction, resolved TF'ing resumed - per mother tube feeding at 94cc/hr at [facility] facility. DW Dr. Collado, keep tube feeds at dietitian recommendation 50 cc/h Diabetes mellitus type 2 Blood sugars well controlled Follow blood sugars Insulin sliding scale Diabetic diet RUE edema Hx of LUE DVT on Apixaban Doppler ultrasound negative for DVT Superficial wound inner aspect RUE healing well, no e/o infection Monitor Hypertension, now hypotensive and bradycardic Discussed with mother at length at bedside who stated BP meds given PRN at [facility] facility d/c scheduled antihypertensives IV Vasotec and Metoprolol prn Continue to monitor BP and adjust treatment accordingly DVT prophylaxis Patient is on Eliquis Discussed Condition With: patient, mother, Dr. Collado, nursing staff, Dr. Josue Discharge Planning: Discussed with case management, plan to discharge back to [facility] facility once cleared by ID and pulmonology (4) Sepsis Qualifiers: Sepsis type: sepsis due to unspecified organism Qualified Code(s): A41.9 - Sepsis, unspecified organism (5) Pneumonia Qualifiers: Pneumonia type: due to unspecified organism Laterality: unspecified laterality Lung location: unspecified part of lung Qualified Code(s): J18.9 - Pneumonia, unspecified organism
== END 2018-06-03 18:38 ==
LOC: NEPC 08:25 → NEDA 10:36 → N04 15:00 → HCIS 19:28 → N05 05-27 20:45
PROVIDERS: ADMIT Hospitalist; ATTEND Hospitalist

== ENCOUNTER 2018-06-09 09:50 | Inpatient (IN) ==
[2018-06-09 10:42] LABS: Baso % (Auto) 0.5 % (0.0-2.0); Eos % (Auto) 0.2 % (0.0-4.0); Hematocrit 48.6 % (39.0-51.0); Hemoglobin 16.7 gm/dL (13.0-17.0); Lymph # (Auto) 1.2 th/mm3 (1.0-4.8); Lymph % (Auto) 12.5 % (9.0-44.0); Mean Corpuscular HGB Conc 34.3 % (32.0-36.0); Mean Corpuscular Volume 93.3 fL (80.0-100.0); Mean Platelet Volume 9.6 fL (7.0-11.0); Mono # (Auto) 0.6 th/mm3 (0.0-0.9); Mono % (Auto) 6.8 % (0.0-8.0); Neut # (Auto) 7.6 th/mm3 (1.8-7.7); Platelet Count 351 th/mm3 (150-450); Red Blood Count 5.21 mil/mm3 (4.50-5.90); Red Cell Distribution Width 13.2 % (11.6-17.2); White Blood Count 9.5 th/mm3 (4.0-11.0)
--- NOTE | 2018-06-09 10:50 | XR ---
EXAM DATE: 06/09/2018 10:43 AM EDT AGE/SEX: 33 years / Male INDICATIONS: Cough send down by [facility]. CLINICAL DATA: This is the patient's subsequent encounter. Patient reports that signs and symptoms h ave been present for 1 day and indicates a pain score of 2/10. MEDICAL/SURGICAL HISTORY: . Hypertension. Gastroesophageal reflux disease.paralysis, contracted . tracheostomy, J tube. COMPARISON: C, CHEST 1V SINGLE AP, 06/03/2018. . FINDINGS: The tracheostomy tube is noted in good position approximately 4 cm above mary anne. The heart is stable. The pulmonary vascular pattern is stable. The lungs are clear. CONCLUSION: No acute focal pulmonary infiltrate or pulmonary vascular congestion. Electronically signed by: Yuri De Souza MD 06/09/2018 10:49 AM EDT
[2018-06-09 10:51] LABS: Activated Partial Thrombo Time 24.3 sec (24.3-30.1); INR 1.1 Ratio; Prothrombin Time 10.9 sec (9.8-11.6)
[2018-06-09 11:03] LABS: Albumin 4.2 g/dL (3.4-5.0); Anion Gap 12 meq/L (5-15); Aspartate Aminotransferase 21 U/L (15-37); Blood Urea Nitrogen 15 mg/dL (7-18); Carbon Dioxide 24.3 meq/L (21.0-32.0); Chloride 105 meq/L (98-107); Glomerular Filtration Rate Greater Than 89 mL/min (>89); Glucose,Random 103 mg/dL (74-106); Potassium 3.8 meq/L (3.5-5.1); Sodium 141 meq/L (136-145)
[2018-06-09 11:04] LABS: Alanine Aminotransferase 45 U/L (12-78)
[2018-06-09 11:07] LABS: Alkaline Phosphatase 112 U/L (45-117); Total Protein 8.9 g/dL (6.4-8.2)
[2018-06-09 11:15] LABS: Bacteria,Urine Occasional /hpf; Bilirubin,Urine Negative (Negative); Clarity,Urine Hazy (Clear); Color,Urine Yellow (Yellw/Straw); Glucose,Urine (UA) Negative (Negative); Hyaline Casts,Urine 3 /lpf (0-3); Leukocyte Esterase,Urine Negative (Negative); Mucus,Urine Few /lpf (Occasional); Nitrite,Urine Negative (Negative); Squamous Epithelial Cell,Urine <1 /hpf (0-5)
[2018-06-09] MEDS ORDERED: Sod Chloride 0.9% Inj 1,000 ML IV.SIG ONE ×4 (11:23→19:38)
[2018-06-09] MEDS ORDERED: Piperacil/Tazo 4.5 GM Premix 4.5 GM/100 ML BAG IV.SIG ONE (11:25)
[2018-06-09] MEDS ORDERED: Morphine Sulfate Inj 2 MG/ML Vial IV.PUSH ONE ×2 (11:40→13:23)
--- NOTE | 2018-06-09 11:58 | ED ---
HPI General Chief complaint: Medical Clearance Stated complaint: medical Time Seen by Provider: 06/09/18 11:11 Source: patient, family, RN notes reviewed and old records reviewed Mode of arrival: other Limitations: other (anoxic brain injury) History of Present Illness HPI narrative: 33-year-old male the presents to the ED for evaluation of episode of hypertension and possible aspiration after getting GJ tube. Patient had an IR intervention today as he had leaking from his GJ tube. This was planned to be done today and he had the procedure and apparently during the procedure he became hypotensive and diaphoretic. Patient has a history of seizures, anorexic brain injury, history of aspiration pneumonia. Patient has a trach as well as JG tube. Patient has been admitted multiple times for sepsis. During my examination patient cannot really give any history. Caregiver is at bedside and provides some information. Per caregivers patient has had episodes like this in the past. They are unsure as to what is causing them. Patient himself cannot really give any history. He does appear to be secreting a lot of secretions on his mouth. On my examination he appears to be very diaphoretic and sweating profusely. He also appears to have an elevated heart rate in the 150s/ 160s. Patient was just released from the hospital about a week ago for aspiration pneumonia. Unclear patient continues to take antibiotics. Related Data Home Medications Medication Instructions Recorded Confirmed apixaban [Eliquis] 5 mg FEEDING TUBE BID 05/22/18 06/09/18 baclofen 20 mg PO Q8H 05/22/18 06/09/18 famotidine 20 mg FEEDING TUBE BID 05/22/18 06/09/18 glycopyrrolate 1 mg FEEDING TUBE Q8H PRN 05/22/18 06/09/18 hyoscyamine sulfate [Levsin] 0.25 mg FEEDING TUBE Q4H PRN 05/22/18 06/09/18 ipratropium-albuterol 3 ml INHALATION Q4H 05/22/18 06/09/18 levetiracetam 1,000 mg FEEDING TUBE Q12H 05/22/18 06/09/18 loratadine [Claritin] 10 mg FEEDING TUBE DAILY 05/22/18 06/09/18 lorazepam 1 mg/kg IM Q6HR PRN 05/22/18 06/09/18 lorazepam [Ativan] 0.5 mg FEEDING TUBE Q4HR PRN 05/22/18 06/09/18 metoprolol tartrate 25 mg FEEDING TUBE Q8H PRN 05/22/18 06/09/18 multivitamin with minerals 5 ml FEEDING TUBE DAILY 05/22/18 06/09/18 Allergies Allergy/AdvReac Type Severity Reaction Status Date / Time haloperidol AdvReac Severe Seizures Verified 06/09/18 09:58 *MDRO Multi-Drug Resistant AdvReac Unknown Dry Mucus Uncoded 06/09/18 09:58 Organism Membranes Review of Systems ROS Unobtainable ROS Unobtainable: unobtainable due to endotracheal tube, unobtainable due to mental condition and unobtainable due to mental status ROS: all other systems reviewed are negative [facility] Medical History Medical History Anoxic brain damage (Acute) DVT (deep venous thrombosis) (Acute) Diabetes mellitus (Acute) Dyslipidemia (Acute) GERD (gastroesophageal reflux disease) (Acute) HTN (hypertension) (Acute) Pancreatitis (Acute) Seizure (Acute) Tracheostomy dependent (Acute) Surgical History Surgical History PEG (percutaneous endoscopic gastrostomy) status (Acute) Social History Social History Substance History: No History of Abuse Second Hand Smoke Exposure: No Smoking Status: Never smoker How Often Do You Have a Drink Containing Alcohol: Never Recent Travel in [facility] within the Last 8 Weeks: No Recent Out of Country Travel within the Last 8 Weeks: No Immunization History Tetanus Immunization: Unable to Assess Hx Influenza Vaccine This Season: Unable to Assess Exam Narrative Exam Narrative: GENERAL: Diaphoretic and nonverbal. Has a trach noted as well as a JG tube on his abdomen. SKIN: Focused skin assessment warm/dry. HEAD: Atraumatic. Normocephalic. EYES: Pupils equal and round 4 mm reactive to light and accommodation.. No scleral icterus. No injection or drainage. EOM intact bilaterally. ENT: No nasal bleeding or discharge. Mucous membranes pink and moist. Cannot assess the tongue or mouth as patient cannot open his mouth which is chronic for his condition. NECK: Trachea midline. No JVD. CARDIOVASCULAR: Regular rate and rhythm. No murmur appreciated. RESPIRATORY: No accessory muscle use. Clear to auscultation. Breath sounds equal bilaterally. GASTROINTESTINAL: Abdomen soft, non-tender, nondistended. Hepatic and splenic margins not palpable. MUSCULOSKELETAL: No obvious deformities. No clubbing. No cyanosis. No edema. Patient has paralysis of the upper and lower extremities bilaterally. 2+ pulses bilaterally. NEUROLOGICAL: Awake and alert. No obvious cranial nerve deficits. Motor grossly within normal limits. Normal speech. PSYCHIATRIC: Cannot assess mood and affect; insight and judgment cannot assess. Course Initial Documented Vital Signs Pulse Rate 136 H 06/09/18 09:54 Blood Pressure 130/61 06/09/18 09:54 Pulse Oximetry 96 06/09/18 09:54 Last Documented Vital Signs Pulse Rate 136 H 06/09/18 09:54 Blood Pressure 130/61 06/09/18 09:54 Pulse Oximetry 96 06/09/18 09:54 Medical Decision Making MDM Narrative Medical decision making narrative: 33-year-old male the presents to the ED for evaluation of hypertension and diaphoresis. Patient was properly examined and was found to have signs and symptoms of unclear etiology. Patient is very tachycardic on exam. He does have a history of sepsis and aspiration pneumonia. There was concern the patient may have aspirated. Patient's heart rate has been in the 160s 170s during my examination. Fluids were ordered. My attending Dr. Dent had ordered protocols before I went to evaluate the patient and the blood work so far, negative for acute disease alert and elevated lactic acid of 3. My attending is aware of the patient's from before and apparently patient had similar presentation last time and was given morphine which seemed to help with the symptoms. Patient was given Ativan and morphine. Fluids given. Patient continued to be very tachycardic. My attending Dr. Shannon was made aware of this and came and evaluated the patient herself. An attempt was made by her to put a central line is IV access was difficult. There were able to get an IV access on 1 of his foot. Patient's heart rate went down to the 130s after medications given. It appears to the patient is improving. Not as diaphoretic as before. Patient is very tachycardic and because of his history of aspiration pneumonia and elevated lactic acid recommendations for admission for further evaluation. I did review the records from the IR report and apparently patient did had a low-grade fever 100.7. Patient was not tachycardic at the time of procedure. My attending agrees with plan. JORGE was paged. Dr Nazario agreed with admission. Differential Diagnosis Differential Diagnosis: Tachycardia versus dysrhythmia versus sepsis versus pneumonia versus Medical Records Medical records reviewed: Yes I reviewed the patient's medical records. Lab Data Lab results reviewed: Yes I reviewed the patient's lab results. Lab results narrative: UA is negative Result diagrams: 06/09/18 10:20 06/09/18 10:20 Lab Results 06/09/18 06/09/18 06/09/18 Range/Units 10:20 10:20 10:20 WBC 9.5 (4.0-11.0) th/mm3 RBC 5.21 (4.50-5.90) mil/mm3 Hgb 16.7 (13.0-17.0) gm/dL Hct 48.6 (39.0-51.0) % MCV 93.3 (80.0-100.0) fL MCH 32.0 (27.0-34.0) pg MCHC 34.3 (32.0-36.0) % RDW 13.2 (11.6-17.2) % Plt Count 351 D (150-450) th/mm3 MPV 9.6 (7.0-11.0) fL Neut % (Auto) 80.0 H (16.0-70.0) % Lymph % (Auto) 12.5 (9.0-44.0) % [place] % (Auto) 6.8 (0.0-8.0) % Eos % (Auto) 0.2 (0.0-4.0) % Baso % (Auto) 0.5 (0.0-2.0) % Neut # (Auto) 7.6 (1.8-7.7) th/mm3 Lymph # (Auto) 1.2 (1.0-4.8) th/mm3 [place] # (Auto) 0.6 (0.0-0.9) th/mm3 Eos # (Auto) 0.0 (0.0-0.4) th/mm3 Baso # (Auto) 0.0 (0.0-0.2) th/mm3 WBC Differential . Differential Comment Auto diff final PT 10.9 (9.8-11.6) sec INR 1.1 Ratio APTT 24.3 (24.3-30.1) sec Sodium 141 (136-145) meq/L Potassium 3.8 (3.5-5.1) meq/L Chloride 105 (98-107) meq/L Carbon Dioxide 24.3 (21.0-32.0) meq/L Anion Gap 12 (5-15) meq/L BUN 15 (7-18) mg/dL Creatinine 0.94 (0.60-1.30) mg/dL Estimated GFR Greater than 89 (>89) mL/min Random Glucose 103 (74-106) mg/dL Lactic Acid (0.4-2.0) mmol/L Calcium 10.0 (8.5-10.1) mg/dL Total Bilirubin 0.2 (0.2-1.0) mg/dL AST 21 (15-37) U/L ALT 45 (12-78) U/L Alkaline Phosphatase 112 (45-117) U/L Troponin I Less than 0.02 L (0.02-0.05) ng/mL Total Protein 8.9 H (6.4-8.2) g/dL Albumin 4.2 (3.4-5.0) g/dL Urine Color (Yellw/Straw) Urine Clarity (Clear) Urine pH (5.0-8.5) Ur Specific [place] (1.002-1.035) Urine Protein (Neg-Trace) mg/dL Urine Glucose (UA) (Negative) mg/dL Urine Ketones (Negative) mg/dL Urine Occult Blood (Negative) Urine Nitrate (Negative) Urine Bilirubin (Negative) Urine Urobilinogen (Less than 2) mg/dL Ur Leukocyte Esterase (Negative) Urine RBC (0-3) /hpf Urine WBC (0-5) /hpf Ur Squamous Epith Cells (0-5) /hpf Urine Bacteria (None) /hpf Hyaline Casts (0-3) /lpf Urine Mucus (Occasional) /lpf Micro UA Comment Urine Culture Comments 06/09/18 06/09/18 Range/Units 10:20 10:52 WBC (4.0-11.0) th/mm3 RBC (4.50-5.90) mil/mm3 Hgb (13.0-17.0) gm/dL Hct (39.0-51.0) % MCV (80.0-100.0) fL MCH (27.0-34.0) pg MCHC (32.0-36.0) % RDW (11.6-17.2) % Plt Count (150-450) th/mm3 MPV (7.0-11.0) fL Neut % (Auto) (16.0-70.0) % Lymph % (Auto) (9.0-44.0) % [place] % (Auto) (0.0-8.0) % Eos % (Auto) (0.0-4.0) % Baso % (Auto) (0.0-2.0) % Neut # (Auto) (1.8-7.7) th/mm3 Lymph # (Auto) (1.0-4.8) th/mm3 [place] # (Auto) (0.0-0.9) th/mm3 Eos # (Auto) (0.0-0.4) th/mm3 Baso # (Auto) (0.0-0.2) th/mm3 WBC Differential Differential Comment PT (9.8-11.6) sec INR Ratio APTT (24.3-30.1) sec Sodium (136-145) meq/L Potassium (3.5-5.1) meq/L Chloride (98-107) meq/L Carbon Dioxide (21.0-32.0) meq/L Anion Gap (5-15) meq/L BUN (7-18) mg/dL Creatinine (0.60-1.30) mg/dL Estimated GFR (>89) mL/min Random Glucose (74-106) mg/dL Lactic Acid 3.3 H (0.4-2.0) mmol/L Calcium (8.5-10.1) mg/dL Total Bilirubin (0.2-1.0) mg/dL AST (15-37) U/L ALT (12-78) U/L Alkaline Phosphatase (45-117) U/L Troponin I (0.02-0.05) ng/mL Total Protein (6.4-8.2) g/dL Albumin (3.4-5.0) g/dL Urine Color Yellow (Yellw/Straw) Urine Clarity Hazy H (Clear) Urine pH 6.0 (5.0-8.5) Ur Specific [place] 1.020 (1.002-1.035) Urine Protein 30 H (Neg-Trace) mg/dL Urine Glucose (UA) Negative (Negative) mg/dL Urine Ketones Negative (Negative) mg/dL Urine Occult Blood Negative (Negative) Urine Nitrate Negative (Negative) Urine Bilirubin Negative (Negative) Urine Urobilinogen 2.0 H (Less than 2) mg/dL Ur Leukocyte Esterase Negative (Negative) Urine RBC 6 H (0-3) /hpf Urine WBC 2 (0-5) /hpf Ur Squamous Epith Cells <1 (0-5) /hpf Urine Bacteria Occasional H (None) /hpf Hyaline Casts 3 (0-3) /lpf Urine Mucus Few H (Occasional) /lpf Micro UA Comment Cath-culture ind Urine Culture Comments Cath-cult indicated Imaging Data Attestation: I personally reviewed and interpreted this imaging study as follows : Radiologist's impression: Chest X-Ray 06/09/18 10:17 CONCLUSION: No acute focal pulmonary infiltrate or pulmonary vascular congestion. ECG Data EKG Prior to Arrival: Yes Attestation: I personally reviewed and interpreted this ECG as follows: Interpretation: EKG shows sinus tachycardia with a heart rate in the 170s. PA intervals reduced. No ST elevation or signs of ischemia noted on EKG. Read by me and attending. Discharge Plan Discharge Disposition Patient Disposition: 32 Still Patient Discharge Details Diagnosis: Sepsis, Anoxic encephalopathy, Tachycardia Physicians Team ED Provider: Bertha Shannon ED Midlevel Provider: Roscoe Bentley Primary Care Provider: UNKNOWN, Rxs /Orders / Referrals /Forms Prescriptions: No Action glycopyrrolate 1 mg Tablet 1 mg Feeding Tube Q8H PRN (Reason: Secretions) RF: 0 ipratropium-albuterol 0.5 mg-3 mg(2.5 mg base)/3 mL Solution For Nebulization 3 ml INHALATION Q4H RF: 0 baclofen 20 mg Tablet 20 mg PO Q8H RF: 0 lorazepam [Ativan] 0.5 mg Tablet 0.5 mg Feeding Tube Q4HR PRN (Reason: Anxiety/seizures) RF: 0 hyoscyamine sulfate [Levsin] 0.125 mg Tablet 0.25 mg Feeding Tube Q4H PRN (Reason: Secretions) RF: 0 loratadine [Claritin] 10 mg Tablet 10 mg Feeding Tube DAILY RF: 0 lorazepam 2 mg/mL Syringe 1 mg/kg IM Q6HR PRN (Reason: Seizures) RF: 0 metoprolol tartrate 25 mg Tablet 25 mg Feeding Tube Q8H PRN (Reason: Increased Heart Rate) RF: 0 levetiracetam 500 mg/5 mL (5 mL) Solution 1,000 mg Feeding Tube Q12H RF: 0 apixaban [Eliquis] 5 mg Tablet 5 mg Feeding Tube BID RF: 0 multivitamin with minerals Liquid 5 ml Feeding Tube DAILY RF: 0 famotidine 20 mg Tablet 20 mg Feeding Tube BID RF: 0 Status ED Status: With Doctor
[2018-06-09] MEDS ORDERED: Vancomycin Inj 1 GM/200 ML PIGGYBACK IV.SIG SCH (12:00)
[2018-06-09] MEDS ORDERED: Vancomycin Inj 1,000 MG in Sodium Chlor 0.9% Inj 250 ML IV.SIG ONE (13:30)
--- NOTE | 2018-06-09 15:58 | ECG ---
Date Performed: 06/09/2018 Time Performed: 11:40:49 PTAGE: 33 years EKG: SUPRAVENTRICULAR TACHYCARDIA VS SINUS TACHYCARDIA ABNORMAL ECG PREVIOUS TRACING : 05/22/2018 10.37 Compared to previous tracing, mild ST no longer present DOCTOR: Consuelo Rodas Interpretating Date/Time 06/09/2018 15:56:30
[2018-06-09] MEDS ORDERED: Bisacodyl 10 MG Supp RECTAL PRN (16:58)
[2018-06-09] MEDS ORDERED: Piperacil/Tazo 3.375 GM Premix 50 ML IV.SIG SCH (17:00)
--- NOTE | 2018-06-09 17:09 | P.HPIM ---
History of Present Illness Primary Care Physician: UNKNOWN Chief Complaint: Hypotension History of Present Illness: This is a 33-year-old male with history of anoxic brain injury with aphasia, seizure disorder, status post tracheostomy and PEG tube placement, diabetes mellitus, hypertension, and frequent hospitalizations for aspiration pneumonia presenting to the hospital from the interventional radiology unit with hypotension and tachycardia. Of note, the patient was recently admitted May and was discharged 06/03/2018 for acute respiratory failure secondary to healthcare associated pneumonia. He had history of multidrug-resistant organism with Pseudomonas and ESBL E. coli. Today, the patient had an IR intervention done since he has been leaking from his GJ tube. During the procedure, the patient became hypotensive and diaphoretic. Patient was then sent to the emergency department. Patient is a poor historian, does not answer any questions, does not follow any commands. He does have a lot of yellowish to almost greenish secretions from his tracheostomy. Became tachycardic in the emergency department in the 150s-160s, status post 3 L of normal saline. Family history cannot be obtained Inpatient Certification: I certify that the inpatient services were ordered in accordance with Medicare regulations governing the order. This includes certification that hospital inpatient services are reasonable and necessary and in the case of services not specified as inpatient-only under 42 CFR 419.22(n), that they are appropriately provided as inpatient services in accordance to with the 2-midnight benchmark under 43 CFR 412.3(e) Estimated Total Length of Stay (Days): 4 Plans for Post Hospital Care: SNF Review of Systems Cannot be obtained, poor historian [facility] - History History Provided By: Significant Other - Medical History Medical History: Medical History (Last Reviewed 06/09/18 @ 11:55 by DELLA Chavez) Anoxic brain damage DVT (deep venous thrombosis) Diabetes mellitus Dyslipidemia GERD (gastroesophageal reflux disease) HTN (hypertension) Pancreatitis Seizure Tracheostomy dependent - Surgical History Surgical History: Surgical History (Last Reviewed 06/09/18 @ 11:55 by DELLA Chavez) PEG (percutaneous endoscopic gastrostomy) status - Tobacco History Second Hand Smoke Exposure: No Smoking Status: Never smoker - Alcohol History How Often Do You Have a Drink Containing Alcohol: Never - Substance Use History Substance History: No History of Abuse - Travel History Recent Travel in the [place] Within the Last 8 Weeks: No Recent Travel Out of the Country Within the Last 8 Weeks: No - Immunization History Tetanus Immunization: Unable to Assess Hx Influenza Vaccine This Season: Unable to Assess Medications and Allergies Active Medications: Active Medications Al Hydroxide/Mg Hydroxide (Milk Of Magnesia Liq) 30 ml PO Q12H PRN PRN Reason: Mild Constipation Bisacodyl (Dulcolax Supp) 10 mg RECTAL DAILY PRN PRN Reason: SEVERE CONSITIPATION Vancomycin HCl 1,500 mg/ (Sodium Chloride) 515 mls @ 250 mls/hr IV.SIG Q12H [facility] Pharmacy Profile Note (Vancomycin Consult Pharmacy) 0 mls @ 0 mls/hr OTHER UNSCH [facility] Piperacillin/Tazobactam/Dextrose (Zosyn 3.375 Gm Premix) 50 mls @ 100 mls/hr IV.SIG Q6H [facility] Lactulose (Lactulose Liq) 30 ml PO DAILY PRN PRN Reason: SEVERE CONSITIPATION Senna/Docusate Sodium (Shala-Colace) 1 tab PO BID [facility] Sennosides (Senokot) 17.2 mg PO Q12H PRN PRN Reason: Moderate Constipation Allergies Allergy/AdvReac Type Severity Reaction Status Date / Time haloperidol AdvReac Severe Seizures Verified 06/09/18 09:58 *MDRO Multi-Drug Resistant AdvReac Unknown Dry Mucus Uncoded 06/09/18 09:58 Organism Membranes Home Medications Medication Instructions Recorded Confirmed Type apixaban [Eliquis] 5 mg FEEDING TUBE BID 05/22/18 06/09/18 History baclofen 20 mg PO Q8H 05/22/18 06/09/18 History famotidine 20 mg FEEDING TUBE BID 05/22/18 06/09/18 History glycopyrrolate 1 mg FEEDING TUBE Q8H PRN 05/22/18 06/09/18 History hyoscyamine sulfate [Levsin] 0.25 mg FEEDING TUBE Q4H PRN 05/22/18 06/09/18 History ipratropium-albuterol 3 ml INHALATION Q4H 05/22/18 06/09/18 History levetiracetam 1,000 mg FEEDING TUBE Q12H 05/22/18 06/09/18 History loratadine [Claritin] 10 mg FEEDING TUBE DAILY 05/22/18 06/09/18 History lorazepam 1 mg/kg IM Q6HR PRN 05/22/18 06/09/18 History lorazepam [Ativan] 0.5 mg FEEDING TUBE Q4HR PRN 05/22/18 06/09/18 History metoprolol tartrate 25 mg FEEDING TUBE Q8H PRN 05/22/18 06/09/18 History multivitamin with minerals 5 ml FEEDING TUBE DAILY 05/22/18 06/09/18 History Exam Vital signs: Vital Signs 06/09/18 09:54 06/09/18 12:30 06/09/18 13:00 Temperature Pulse Rate 136 H 160 H 150 H Respiratory Rate 18 Blood Pressure 130/61 217/82 H 182/120 H Pulse Oximetry 96 99 98 06/09/18 14:00 06/09/18 15:20 06/09/18 15:21 Temperature 99.4 F Pulse Rate 136 H 113 H Respiratory Rate 17 18 Blood Pressure 133/60 141/74 H Pulse Oximetry 98 100 06/09/18 16:59 Temperature Pulse Rate 109 H Respiratory Rate 15 Blood Pressure 138/77 Pulse Oximetry 98 Intake & Output 06/08/18 06/09/18 06/09/18 18:59 06:59 18:59 Weight 104.326 kg Narrative: GENERAL: Not in acute distress, coughing, nonverbal. HEAD: Atraumatic. EYES: PERRL, no jaundice, nonicteric ENT: Nose without bleeding NECK: Tracheostomy in place, with yellowish to green secretions. CARDIOVASCULAR: Tachycardic, regular rhythm, no murmurs. RESPIRATORY: Bilateral crackles and rhonchi. GASTROINTESTINAL: Abdomen soft, normal bowel sounds, non-tender, nondistended. PEG tube in place, no surrounding erythema. MUSCULOSKELETAL: Extremities without clubbing, cyanosis, or edema. INTEGUMENTARY: Warm and dry, no edema. NEUROLOGICAL: Nonverbal, does not follow any commands, positive for contractures and bilateral foot drop. Results - Labs CBC & Chem 7: 06/09/18 10:20 06/09/18 10:20 Labs: Short CBC 06/09/18 Range/Units 10:20 WBC 9.5 (4.0-11.0) th/mm3 Hgb 16.7 (13.0-17.0) gm/dL Hct 48.6 (39.0-51.0) % Plt Count 351 D (150-450) th/mm3 BMP 06/09/18 10:20 Sodium 141 Potassium 3.8 Chloride 105 Carbon Dioxide 24.3 BUN 15 Creatinine 0.94 Calcium 10.0 Cardiac Enzymes 06/09/18 Range/Units 10:20 Troponin I Less than 0.02 L (0.02-0.05) ng/mL Liver Function 06/09/18 Range/Units 10:20 Total Bilirubin 0.2 (0.2-1.0) mg/dL AST 21 (15-37) U/L ALT 45 (12-78) U/L Alkaline Phosphatase 112 (45-117) U/L Albumin 4.2 (3.4-5.0) g/dL Urine 06/09/18 Range/Units 10:52 Urine Color Yellow (Yellw/Straw) Urine Clarity Hazy H (Clear) Urine pH 6.0 (5.0-8.5) Ur Specific [place] 1.020 (1.002-1.035) Urine Protein 30 H (Neg-Trace) mg/dL Urine Glucose (UA) Negative (Negative) mg/dL - Imaging Impressions Chest X-Ray 06/09/18 10:17 CONCLUSION: No acute focal pulmonary infiltrate or pulmonary vascular congestion. Caprini VTE Risk Assessment Caprini VTE Risk Assessment: Moderate/High Risk (score >= 2) Caprini Risk Assessment Model: Point Value = 1 Point Value = 2 Point Value = 3 Point Value = 5 Age 41-60 Minor surgery BMI > 25 kg/m2 Swollen legs Varicose veins or History of unexplained or recurrent spontaneous Oral contraceptives or hormone replacement Sepsis (< 1 month) Serious lung disease, including pneumonia (< 1 month) Abnormal pulmonary function Acute myocardial infarction Congestive heart failure (< 1 month) History of inflammatory bowel disease Medical patient at bed rest Age 61-74 Arthroscopic surgery Major open surgery (> 45 min) Laparoscopic surgery (> 45 min) Malignancy Confined to bed (> 72 hours) Immobilizing plaster cast Central venous access Age >= 75 History of VTE Family history of VTE Factor V Leiden Prothrombin [id number] Lupus anticoagulant Anticardiolipin antibodies Elevated serum homocysteine Heparin-induced thrombocytopenia Other congenital or acquired thrombophilia Stroke (< 1 month) Elective arthroplasty Hip, pelvis, or leg fracture Acute spinal cord injury (< 1 month) Prophylaxis Regimen: Total Risk Factor Score Risk Level Prophylaxis Regimen 0-1 Low Early ambulation 2 Moderate Order ONE of the following: *Sequential Compression Device (SCD) *Heparin 5000 units SQ BID 3-4 Higher Order ONE of the following medications: *Heparin 5000 units SQ TID *Enoxaparin/Lovenox 40 mg SQ daily (WT < 150 kg, CrCl > 30 mL/min) *Enoxaparin/Lovenox 30 mg SQ daily (WT < 150 kg, CrCl > 10-29 mL/min) *Enoxaparin/Lovenox 30 mg SQ BID (WT < 150 kg, CrCl > 30 mL/min) AND/OR *Sequential Compression Device (SCD) 5 or more Highest Order ONE of the following medications: *Heparin 5000 units SQ TID (Preferred with Epidurals) *Enoxaparin/Lovenox 40 mg SQ daily (WT < 150 kg, CrCl > 30 mL/min) *Enoxaparin/Lovenox 30 mg SQ daily (WT < 150 kg, CrCl > 10-29 mL/min) *Enoxaparin/Lovenox 30 mg SQ BID (WT < 150 kg, CrCl > 30 mL/min) AND *Sequential Compression Device (SCD) Assessment and Plan - Plan 33-year-old male with history of anoxic brain injury, admitted for hypotension and tachycardia during GJ tube placement. 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 coli ESBL. Start vancomycin and Avycaz, send sputum culture , follow-up urine culture and blood culture. Continue oxygen support, duo nebs around the clock and as needed. Tracheostomy care. Sepsis based on tachycardia , tachypnea, hypotension with lactic acidosis -Status post 3 L of normal saline, recheck lactic acid, keep on telemetry. Continue glycopyrrolate and Levsin Anoxic brain injury, seizure disorder -Restart Keppra Sinus tachycardia-EKG showed sinus tachycardia, could be withdrawal from metoprolol, patient has been taking metoprolol from rehab. Restart at 25 mg twice a day if blood pressure remains stable Chronic [id number] post intervention, monitor. Diabetes mellitus-insulin sliding scale for now Agitation-Ativan as needed, restart per home dose Nutrition : Start Jevity 50 cc/h, consult dietitian. DVT prophylaxis: Apixaban
[2018-06-09] MEDS ORDERED: LORazepam 0.5 MG Tablet G-TUBE PRN (17:14)
[2018-06-09] MEDS ORDERED: Dextrose 50% in Water 50 ML Vial IV.PUSH PRN (17:23)
[2018-06-09] MEDS: Sod Chloride 0.9% Inj 1,000 ML IV.CONT SCH (17:47)
[2018-06-09] MEDS ORDERED: Vancomycin Consult Pharmacy 1 EACH OTHER SCH (18:00)
[2018-06-09] MEDS: Ceftazidime/Avibactam Inj 2.5 GM in Sodium Chlor 0.9% Inj 50 ML IV.SIG SCH (19:54)
[2018-06-09] MEDS: Senna/Docusate Sodium 8.6/50 MG Tablet PO SCH (21:17)
[2018-06-09] MEDS: Famotidine 20 MG Tablet G-TUBE SCH (21:17)
[2018-06-09] MEDS: Insulin NovoLOG Aspart Correctional Sugar Inj SQ SCH (22:32)
[2018-06-09] MEDS: Vancomycin Inj 1,400 MG in Sodium Chlor 0.9% Inj 500 ML IV.SIG SCH (23:08)
[2018-06-09] MEDS: Morphine Inj 4 MG/ML Vial IV.PUSH PRN (23:09)
[2018-06-10 01:03] LABS: Creatine Kinase 270 U/L (39-308)
[2018-06-10] MEDS: Ceftazidime/Avibactam Inj 2.5 GM in Sodium Chlor 0.9% Inj 50 ML IV.SIG SCH ×3 (02:10→18:23)
[2018-06-10 02:22] LABS: Creatine Kinase MB 2.9 ng/mL (0.5-3.6)
[2018-06-10] MEDS ORDERED: Sod Phosphate/Sod Biphosphate (Adult) Enema 133 ML Bottle RECTAL ONE (03:30)
[2018-06-10] MEDS ORDERED: Metoprolol Inj 5 MG/5 ML Vial IV.PUSH PRN (03:35)
[2018-06-10] MEDS: Morphine Inj 4 MG/ML Vial IV.PUSH PRN (03:54)
[2018-06-10] MEDS ORDERED: Sod Chloride 0.9% Inj 1,000 ML IV.SIG ONE (05:00)
[2018-06-10] MEDS: Sod Chloride 0.9% Inj 1,000 ML IV.CONT SCH ×3 (05:57→23:29)
[2018-06-10] MEDS: Vancomycin Inj 1,400 MG in Sodium Chlor 0.9% Inj 500 ML IV.SIG SCH ×2 (05:57→21:36)
[2018-06-10] MEDS: Insulin NovoLOG Aspart Correctional Sugar Inj SQ SCH ×4 (07:45→21:39)
[2018-06-10] MEDS ORDERED: Vancomycin Inj 1,400 MG in Sodium Chlor 0.9% Inj 500 ML IV.SIG SCH (08:00)
[2018-06-10] MEDS ORDERED: MULTIVITAMIN WITH MINERALS FEED TUBE SCH (09:00)
[2018-06-10] MEDS: Senna/Docusate Sodium 8.6/50 MG Tablet PO SCH ×2 (09:10→21:36)
[2018-06-10] MEDS: Loratadine 10 MG Tablet G-TUBE SCH (09:10)
[2018-06-10] MEDS: Famotidine 20 MG Tablet G-TUBE SCH ×2 (09:10→21:36)
--- NOTE | 2018-06-10 09:18 | P.PNIM ---
Subjective Interval history: Follow-up for severe sepsis Patient is moderate in the room. No seizures, occasional twitching which is at baseline, blood pressure stable, borderline tachycardic. Cannot draw labs this morning. No overnight events. T-max 102.9. Physical Exam Vital signs: Vital Signs 06/09/18 09:54 06/09/18 12:30 06/09/18 13:00 Temperature Pulse Rate 136 H 160 H 150 H Respiratory Rate 18 Blood Pressure 130/61 217/82 H 182/120 H Pulse Oximetry 96 99 98 06/09/18 14:00 06/09/18 15:20 06/09/18 15:21 Temperature 99.4 F Pulse Rate 136 H 113 H Respiratory Rate 17 18 Blood Pressure 133/60 141/74 H Pulse Oximetry 98 100 06/09/18 16:59 06/09/18 17:45 06/09/18 19:00 Temperature Pulse Rate 109 H 105 H 108 H Respiratory Rate 15 14 28 H Blood Pressure 138/77 140/81 142/83 H Pulse Oximetry 98 97 97 06/09/18 19:52 06/09/18 20:00 06/09/18 21:00 Temperature Pulse Rate 134 H 102 H Respiratory Rate 20 30 H 30 H Blood Pressure 135/71 Pulse Oximetry 98 97 06/09/18 23:12 06/09/18 23:43 06/09/18 23:46 Temperature 99.8 F H Pulse Rate 98 H 104 H Respiratory Rate 32 H 24 Blood Pressure 134/71 Pulse Oximetry 98 100 06/09/18 23:59 06/10/18 00:00 06/10/18 00:30 Temperature Pulse Rate 112 H Respiratory Rate 28 H Blood Pressure 147/68 H Pulse Oximetry 100 100 99 06/10/18 02:00 06/10/18 04:01 06/10/18 04:14 Temperature 102.9 F H Pulse Rate 88 122 H 129 H Respiratory Rate 28 H 28 H 28 H Blood Pressure 124/65 121/61 Pulse Oximetry 100 100 06/10/18 05:09 06/10/18 05:19 06/10/18 06:00 Temperature 99.6 F Pulse Rate 91 H 82 Respiratory Rate 18 Blood Pressure 139/83 Pulse Oximetry 100 100 06/10/18 07:25 Temperature Pulse Rate 67 Respiratory Rate 20 Blood Pressure Pulse Oximetry 100 Intake & Output 06/09/18 06/10/18 06/10/18 18:59 06:59 18:59 Intake Total 6450 / 6450 Output Total 0 / 0 Balance 6450 / 6450 Weight 104.326 kg 68.5 kg Intake: IV 6450 / 6450 NS Inj 1,000 ML @ 125 mls/hr IV 1000 / 1000 .CONT .Q8H [facility] Rx#:[id number] Avycaz Inj 2.5 GM In NS Inj 50 100 / 100 ML @ 25 mls/hr IV.SIG Q8H [facility] Rx#:[id number] NS Inj 1,000 ML @ Wide Open IV. 1000 / 1000 SIG BOLUS ONE Rx#:[id number] Output: Urine 0 / 0 Other: Weight On Admission 104.3 kg Narrative: GENERAL: Not in acute distress, nonverbal. HEAD: Atraumatic. EYES: PERRL, no jaundice, nonicteric ENT: Nose without bleeding NECK: T piece in place. CARDIOVASCULAR: Regular rate and rhythm, no murmurs. RESPIRATORY: Occasional crackles and rhonchi. GASTROINTESTINAL: Abdomen soft, normal bowel sounds, non-tender, nondistended. PEG tube in place, no surrounding erythema. MUSCULOSKELETAL: Extremities without clubbing, cyanosis, or edema. INTEGUMENTARY: Warm and dry, no edema. NEUROLOGICAL: Eyes closed. Nonverbal, does not follow any commands, positive for contractures and bilateral foot drop, decerebrate positioning. Results - Labs CBC & Chem 7: 06/09/18 10:20 06/09/18 10:20 Laboratory Results - last 24 hr 06/09/18 06/09/18 06/09/18 10:20 10:20 10:20 WBC 9.5 RBC 5.21 Hgb 16.7 Hct 48.6 MCV 93.3 MCH 32.0 MCHC 34.3 RDW 13.2 Plt Count 351 D MPV 9.6 Neut % (Auto) 80.0 H Lymph % (Auto) 12.5 [place] % (Auto) 6.8 Eos % (Auto) 0.2 Baso % (Auto) 0.5 Neut # (Auto) 7.6 Lymph # (Auto) 1.2 [place] # (Auto) 0.6 Eos # (Auto) 0.0 Baso # (Auto) 0.0 WBC Differential . Differential Comment Auto diff final PT 10.9 INR 1.1 APTT 24.3 Sodium 141 Potassium 3.8 Chloride 105 Carbon Dioxide 24.3 Anion Gap 12 BUN 15 Creatinine 0.94 Estimated GFR Greater than 89 POC Glucose Random Glucose 103 Lactic Acid Calcium 10.0 Total Bilirubin 0.2 AST 21 ALT 45 Alkaline Phosphatase 112 Total Creatine Kinase CK-MB (CK-2) Troponin I Less than 0.02 L Total Protein 8.9 H Albumin 4.2 Urine Color Urine Clarity Urine pH Ur Specific [place] Urine Protein Urine Glucose (UA) Urine Ketones Urine Occult Blood Urine Nitrate Urine Bilirubin Urine Urobilinogen Ur Leukocyte Esterase Urine RBC Urine WBC Ur Squamous Epith Cells Urine Bacteria Hyaline Casts Urine Mucus Micro UA Comment Urine Culture Comments Nasal Screen MRSA (PCR) 06/09/18 06/09/18 06/09/18 10:20 10:20 10:52 WBC RBC Hgb Hct MCV MCH MCHC RDW Plt Count MPV Neut % (Auto) Lymph % (Auto) [place] % (Auto) Eos % (Auto) Baso % (Auto) Neut # (Auto) Lymph # (Auto) [place] # (Auto) Eos # (Auto) Baso # (Auto) WBC Differential Differential Comment PT INR APTT Sodium Potassium Chloride Carbon Dioxide Anion Gap BUN Creatinine Estimated GFR POC Glucose Random Glucose Lactic Acid 3.3 H Calcium Total Bilirubin AST ALT Alkaline Phosphatase Total Creatine Kinase 270 CK-MB (CK-2) 2.9 Troponin I Total Protein Albumin Urine Color Yellow Urine Clarity Hazy H Urine pH 6.0 Ur Specific [place] 1.020 Urine Protein 30 H Urine Glucose (UA) Negative Urine Ketones Negative Urine Occult Blood Negative Urine Nitrate Negative Urine Bilirubin Negative Urine Urobilinogen 2.0 H Ur Leukocyte Esterase Negative Urine RBC 6 H Urine WBC 2 Ur Squamous Epith Cells <1 Urine Bacteria Occasional H Hyaline Casts 3 Urine Mucus Few H Micro UA Comment Cath-culture ind Urine Culture Comments Cath-cult indicated Nasal Screen MRSA (PCR) 06/09/18 06/09/18 06/09/18 18:00 21:30 22:32 WBC RBC Hgb Hct MCV MCH MCHC RDW Plt Count MPV Neut % (Auto) Lymph % (Auto) [place] % (Auto) Eos % (Auto) Baso % (Auto) Neut # (Auto) Lymph # (Auto) [place] # (Auto) Eos # (Auto) Baso # (Auto) WBC Differential Differential Comment PT INR APTT Sodium Potassium Chloride Carbon Dioxide Anion Gap BUN Creatinine Estimated GFR POC Glucose 90 Random Glucose Lactic Acid 4.2 H* 2.1 H Calcium Total Bilirubin AST ALT Alkaline Phosphatase Total Creatine Kinase CK-MB (CK-2) Troponin I Total Protein Albumin Urine Color Urine Clarity Urine pH Ur Specific [place] Urine Protein Urine Glucose (UA) Urine Ketones Urine Occult Blood Urine Nitrate Urine Bilirubin Urine Urobilinogen Ur Leukocyte Esterase Urine RBC Urine WBC Ur Squamous Epith Cells Urine Bacteria Hyaline Casts Urine Mucus Micro UA Comment Urine Culture Comments Nasal Screen MRSA (PCR) 06/10/18 06/10/18 06/10/18 00:15 03:25 05:15 WBC RBC Hgb Hct MCV MCH MCHC RDW Plt Count MPV Neut % (Auto) Lymph % (Auto) [place] % (Auto) Eos % (Auto) Baso % (Auto) Neut # (Auto) Lymph # (Auto) [place] # (Auto) Eos # (Auto) Baso # (Auto) WBC Differential Differential Comment PT INR APTT Sodium Potassium Chloride Carbon Dioxide Anion Gap BUN Creatinine Estimated GFR POC Glucose Random Glucose Lactic Acid 2.8 H 8.4 H* Calcium Total Bilirubin AST ALT Alkaline Phosphatase Total Creatine Kinase CK-MB (CK-2) Troponin I Total Protein Albumin Urine Color Urine Clarity Urine pH Ur Specific [place] Urine Protein Urine Glucose (UA) Urine Ketones Urine Occult Blood Urine Nitrate Urine Bilirubin Urine Urobilinogen Ur Leukocyte Esterase Urine RBC Urine WBC Ur Squamous Epith Cells Urine Bacteria Hyaline Casts Urine Mucus Micro UA Comment Urine Culture Comments Nasal Screen MRSA (PCR) Not detected 06/10/18 07:44 WBC RBC Hgb Hct MCV MCH MCHC RDW Plt Count MPV Neut % (Auto) Lymph % (Auto) [place] % (Auto) Eos % (Auto) Baso % (Auto) Neut # (Auto) Lymph # (Auto) [place] # (Auto) Eos # (Auto) Baso # (Auto) WBC Differential Differential Comment PT INR APTT Sodium Potassium Chloride Carbon Dioxide Anion Gap BUN Creatinine Estimated GFR POC Glucose 90 Random Glucose Lactic Acid Calcium Total Bilirubin AST ALT Alkaline Phosphatase Total Creatine Kinase CK-MB (CK-2) Troponin I Total Protein Albumin Urine Color Urine Clarity Urine pH Ur Specific [place] Urine Protein Urine Glucose (UA) Urine Ketones Urine Occult Blood Urine Nitrate Urine Bilirubin Urine Urobilinogen Ur Leukocyte Esterase Urine RBC Urine WBC Ur Squamous Epith Cells Urine Bacteria Hyaline Casts Urine Mucus Micro UA Comment Urine Culture Comments Nasal Screen MRSA (PCR) Microbiology 06/09/18 18:00 Sputum - Tracheal Aspirate Gram Stain - Final - Imaging Impressions Chest X-Ray 06/09/18 10:17 CONCLUSION: No acute focal pulmonary infiltrate or pulmonary vascular congestion. Assessment and Plan - Plan 33-year-old male with history of anoxic brain injury, admitted for hypotension and tachycardia during GJ tube placement. 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 coli ESBL. Continue vancomycin and Avycaz, Gram stain showed pleomorphic gram-positive rods, moderate WBCs, good sample, follow-up sputum culture, follow-up urine culture and blood culture. Continue oxygen support to T piece, duo nebs around the clock and as needed. Tracheostomy care. Sepsis based on tachycardia, tachypnea, hypotension with lactic acidosis -Consult infectious disease, recheck CBC and BMP in the morning -Status post 4 L of normal saline, still with lactic acidosis, continue telemetry, continue IVF, recheck lactic acid continue glycopyrrolate and Levsin Anoxic brain injury, seizure disorder -Continue Keppra Sinus tachycardia-EKG showed sinus tachycardia, could be withdrawal from metoprolol, patient has been taking metoprolol from rehab. Now heart rate in the 60s, restart metoprolol if needed if blood pressure is stable. Chronic [id number] post intervention, monitor. Diabetes mellitus-insulin sliding scale for now Agitation-Ativan as needed, restart per home dose Nutrition : Start Jevity 50 cc/h, consult dietitian. DVT prophylaxis: Apixaban Discussed with patient's mother.
[2018-06-10 10:14] LABS: Baso % (Auto) 0.5 % (0.0-2.0); Eos # (Auto) 0.1 th/mm3 (0.0-0.4); Hematocrit 34.2 % (39.0-51.0); Hemoglobin 11.7 gm/dL (13.0-17.0); Lymph # (Auto) 1.1 th/mm3 (1.0-4.8); Lymph % (Auto) 18.8 % (9.0-44.0); Mean Corpuscular HGB Conc 34.1 % (32.0-36.0); Mean Corpuscular Volume 93.9 fL (80.0-100.0); Mean Platelet Volume 9.2 fL (7.0-11.0); Mono # (Auto) 0.7 th/mm3 (0.0-0.9); Mono % (Auto) 12.1 % (0.0-8.0); Neut # (Auto) 4.1 th/mm3 (1.8-7.7); Neut % (Auto) 67.6 % (16.0-70.0); Platelet Count 193 th/mm3 (150-450); Red Blood Count 3.64 mil/mm3 (4.50-5.90); Red Cell Distribution Width 13.2 % (11.6-17.2)
[2018-06-10 10:43] LABS: Anion Gap 7 meq/L (5-15); Blood Urea Nitrogen 7 mg/dL (7-18); Carbon Dioxide 24.9 meq/L (21.0-32.0); Chloride 115 meq/L (98-107); Glomerular Filtration Rate Greater Than 89 mL/min (>89); Glucose,Random 108 mg/dL (74-106); Potassium 3.6 meq/L (3.5-5.1); Sodium 147 meq/L (136-145)
[2018-06-10] MEDS ORDERED: Pharmacy Ordered Lab Info OTHER ONE ×2 (15:45→23:45)
--- NOTE | 2018-06-10 17:51 | P.CONID ---
History of Present Illness Service: ID Consult date: 06/10/18 Requesting Physician: Aditi Nazario Reason for Consult: sepsis Primary Care Provider: UNKNOWN Chief Complaint: Hypotension History of Present Illness: Pt well known to me from previous admissions 33 yo male with anoxic brain injury, in persistent vegetative todd, trached and PEGed frequent admissions with sepsis, PNAs This time essentially presented with fever, lactic acidosis and hypotension Has high volume of secretions especially oral, but clear CXR PEG looked infected and was changed H/o recent MRDO infection treated with Avycaz He was started on braod spectrum bx HIs sputum clx is growing GNB Review of Systems unobtainable due to mental condition PMFSH - History History Provided By: Significant Other - Medical History Medical History: Medical History (Last Reviewed 07/19/18 @ 14:01 by Nannette Josue MD) Tracheostomy dependent (Acute) GERD (gastroesophageal reflux disease) (Acute) Pancreatitis (Acute) Diabetes mellitus (Acute) Dyslipidemia (Acute) HTN (hypertension) (Acute) Seizure (Acute) DVT (deep venous thrombosis) (Acute) Anoxic brain damage (Acute) - Surgical History Surgical History: Surgical History (Last Reviewed 07/19/18 @ 13:56 by Nannette Josue MD) PEG (percutaneous endoscopic gastrostomy) status (Acute) - Family History Family History: Family History (Last Updated 07/19/18 @ 13:56 by Nannette Josue MD) Other No pertinent family history - Social History I have reviewed the patient's Social History: Yes - Tobacco History Second Hand Smoke Exposure: No Smoking Status: Never smoker - Alcohol History How Often Do You Have a Drink Containing Alcohol: Never - Substance Use History Substance History: No History of Abuse - Travel History Recent Travel in the [place] Within the Last 8 Weeks: No Recent Travel Out of the Country Within the Last 8 Weeks: No - Immunization History Tetanus Immunization: Unable to Assess Hx Influenza Vaccine This Season: Unable to Assess Medications and Allergies Active Medications: Active Medications Acetaminophen (Tylenol Liq) 650 mg G-TUBE Q4H PRN PRN Reason: temp > 100.4 Last Admin: 06/10/18 04:13 Dose: 650 mg Al Hydroxide/Mg Hydroxide (Milk Of Magnesia Liq) 30 ml PO Q12H PRN PRN Reason: Mild Constipation Albuterol (Duoneb Neb (Julian)) 1 ampul INH Q4HR NEB JULIAN Last Admin: 06/10/18 16:10 Dose: 1 ampul Albuterol (Ventolin Hfa Inh) 2 puff INH Q2H PRN PRN Reason: sob/wheezing Apixaban (Eliquis) 5 mg G-TUBE BID [facility] Last Admin: 06/10/18 09:10 Dose: 5 mg Baclofen (Lioresal) 20 mg PO Q8H [facility] Last Admin: 06/10/18 10:24 Dose: 20 mg Bisacodyl (Dulcolax Supp) 10 mg RECTAL DAILY PRN PRN Reason: SEVERE CONSITIPATION Chlorhexidine Gluconate (Chlorhexidine 2% Cloth) 3 pack TOPICAL DAILY@0400 JULIAN Stop: 06/16/18 03:59 Chlorhexidine Gluconate (Chlorhexidine 2% Cloth) 3 pack TOPICAL DAILY@0400 PRN PRN Reason: Extra cloth needed Stop: 06/16/18 03:59 Dextrose (D50w Vial) 50 ml IV.PUSH UNSCH PRN PRN Reason: PER HYPOGLYCEMIA PROTOCOL Famotidine (Pepcid) 20 mg G-TUBE BID [facility] Last Admin: 06/10/18 09:10 Dose: 20 mg Glucagon (Glucagon Inj) 1 mg OTHER PRN PRN PRN Reason: for Hypoglycemia Protocol Glycopyrrolate (Robinul) 1 mg G-TUBE Q8H PRN PRN Reason: SECRETIONS Hyoscyamine (Levsin) 0.25 mg G-TUBE Q4H PRN PRN Reason: SECRETIONS Last Admin: 06/10/18 15:04 Dose: 0.25 mg Pharmacy Profile Note (Vancomycin Consult Pharmacy) 0 mls @ 0 mls/hr OTHER UNSCH [facility] Ceftazidime/Avibactam 2.5 gm/ (Sodium Chloride) 50 mls @ 25 mls/hr IV.SIG Q8H [facility] Last Infusion: 06/10/18 13:36 Dose: Infused Sodium Chloride (Ns Inj) 1,000 mls @ 125 mls/hr IV.CONT .Q8H [facility] Last Admin: 06/10/18 13:37 Dose: 125 mls/hr Vancomycin HCl 1,400 mg/ (Sodium Chloride) 514 mls @ 250 mls/hr IV.SIG Q8H [facility] Insulin Aspart (Novolog Insulin Correctional Sugar Inj) 0 unit SQ ACHS [facility]; Protocol Last Admin: 06/10/18 17:15 Dose: Not Given Lactulose (Lactulose Liq) 30 ml PO DAILY PRN PRN Reason: SEVERE CONSITIPATION Levetiracetam (Keppra Liq) 1,000 mg NG/OG Q12H [facility] Last Admin: 06/10/18 05:18 Dose: 1,000 mg Loratadine (Claritin) 10 mg G-TUBE DAILY [facility] Last Admin: 06/10/18 09:10 Dose: 10 mg Lorazepam (Ativan Inj) 1 mg IV.PUSH Q4H PRN PRN Reason: agitation Last Admin: 06/10/18 04:13 Dose: 1 mg Metoprolol Tartrate (Lopressor Inj) 5 mg IV.PUSH Q5M PRN PRN Reason: HR>100 Miscellaneous Information ([facility] Ordered Lab Info) 0 each OTHER ONCE ONE Stop: 06/10/18 23:46 Morphine Sulfate (Morphine Inj) 4 mg IV.PUSH Q4H PRN PRN Reason: pain 6-10/agitation Last Admin: 06/10/18 03:54 Dose: 4 mg Multivitamins (Theragran) 1 tab NG/OG DAILY [facility] Last Admin: 06/10/18 09:10 Dose: 1 tab Senna/Docusate Sodium (Shala-Colace) 1 tab PO BID [facility] Last Admin: 06/10/18 09:10 Dose: 1 tab Sennosides (Senokot) 17.2 mg PO Q12H PRN PRN Reason: Moderate Constipation Allergies Allergy/AdvReac Type Severity Reaction Status Date / Time haloperidol AdvReac Severe Seizures Verified 06/09/18 09:58 *MDRO Multi-Drug Resistant AdvReac Unknown Dry Mucus Uncoded 06/09/18 09:58 Organism Membranes Home Medications Medication Instructions Recorded Confirmed Type apixaban [Eliquis] 5 mg FEEDING TUBE BID 05/22/18 06/26/18 History glycopyrrolate 1 mg FEEDING TUBE Q8H PRN 05/22/18 06/26/18 History hyoscyamine sulfate [Levsin] 0.25 mg FEEDING TUBE Q4H PRN 05/22/18 06/26/18 History levetiracetam 1,000 mg FEEDING TUBE Q12H 05/22/18 06/26/18 History loratadine [Claritin] 10 mg FEEDING TUBE DAILY 05/22/18 06/26/18 History Exam Vital signs: Vital Signs 06/09/18 19:00 06/09/18 19:52 06/09/18 20:00 Temperature Pulse Rate 108 H 134 H Respiratory Rate 28 H 20 30 H Blood Pressure 142/83 H Pulse Oximetry 97 98 06/09/18 21:00 06/09/18 23:12 06/09/18 23:43 Temperature 99.8 F H Pulse Rate 102 H 98 H 104 H Respiratory Rate 30 H 32 H 24 Blood Pressure 135/71 134/71 Pulse Oximetry 97 98 06/09/18 23:46 06/09/18 23:59 06/10/18 00:00 Temperature Pulse Rate Respiratory Rate Blood Pressure Pulse Oximetry 100 100 100 06/10/18 00:30 06/10/18 02:00 06/10/18 04:01 Temperature Pulse Rate 112 H 88 122 H Respiratory Rate 28 H 28 H 28 H Blood Pressure 147/68 H 124/65 Pulse Oximetry 99 100 06/10/18 04:14 06/10/18 05:09 06/10/18 05:19 Temperature 102.9 F H 99.6 F Pulse Rate 129 H 91 H Respiratory Rate 28 H 18 Blood Pressure 121/61 139/83 Pulse Oximetry 100 100 100 06/10/18 06:00 06/10/18 07:25 06/10/18 08:00 Temperature 97.9 F Pulse Rate 82 67 73 Respiratory Rate 20 18 Blood Pressure 109/59 L Pulse Oximetry 100 100 06/10/18 10:00 06/10/18 12:00 06/10/18 12:17 Temperature 97.5 F L Pulse Rate 61 81 87 Respiratory Rate 20 18 Blood Pressure 99/55 L Pulse Oximetry 100 06/10/18 14:00 06/10/18 16:00 06/10/18 16:10 Temperature 98.5 F Pulse Rate 51 L 64 79 Respiratory Rate 21 18 Blood Pressure 99/55 L Pulse Oximetry 100 Intake & Output 06/09/18 06/10/18 06/10/18 18:59 06:59 18:59 Intake Total 6450 / 6450 1564 / 1564 Output Total 0 / 0 Balance 6450 / 6450 1564 / 1564 Weight 104.326 kg 68.5 kg Intake: IV 6450 / 6450 1564 / 1564 NS Inj 1,000 ML @ 125 mls/hr IV 1000 / 1000 1000 / 1000 .CONT .Q8H [facility] Rx#:[id number] Avycaz Inj 2.5 GM In NS Inj 50 100 / 100 50 / 50 ML @ 25 mls/hr IV.SIG Q8H [facility] Rx#:[id number] NS Inj 1,000 ML @ Wide Open IV. 1000 / 1000 SIG BOLUS ONE Rx#:[id number] Vancomycin Inj 1,400 MG In NS 514 / 514 Inj 500 ML @ 250 mls/hr IV.SIG Q8H [facility] Rx#:[id number] Output: Urine 0 / 0 Other: Weight On Admission 104.3 kg - Constitutional no acute distress, average body habitus - Routine HEENT Exam Head: Present: normocephalic, atraumatic Eye: Present: EOMI, PERRL ENT: Present: mucous membranes moist, oropharynx clear - Routine Neck Exam Present: supple, full ROM - Routine Respiratory Exam Present: decreased breath sounds, rhonchi - Routine Cardiovascular Exam Present: RRR, S1, S2 - Routine Abdominal Exam Present: soft, normoactive bowel sounds Comments: PEG in place - Routine Extremities Exam Present: normal capillary refill Comments: no cyanosis, no clubbing or edema - Routine Skin Exam Present: intact, dry, warm - Routine Neurological Exam Present: altered mental status non verbal, unresponsive, posturing - Routine Psychiatric Exam Present: unable to assess Results - Labs CBC & Chem 7: 06/15/18 06:05 06/23/18 04:45 Labs: Laboratory Results - last 24 hr 06/09/18 06/09/18 06/09/18 10:20 18:00 21:30 WBC RBC Hgb Hct MCV MCH MCHC RDW Plt Count MPV Neut % (Auto) Lymph % (Auto) [place] % (Auto) Eos % (Auto) Baso % (Auto) Neut # (Auto) Lymph # (Auto) [place] # (Auto) Eos # (Auto) Baso # (Auto) WBC Differential Differential Comment Sodium Potassium Chloride Carbon Dioxide Anion Gap BUN Creatinine Estimated GFR POC Glucose Random Glucose Lactic Acid 4.2 H* 2.1 H Calcium Total Creatine Kinase 270 CK-MB (CK-2) 2.9 Nasal Screen MRSA (PCR) Vancomycin Trough 06/09/18 06/10/18 06/10/18 22:32 00:15 03:25 WBC RBC Hgb Hct MCV MCH MCHC RDW Plt Count MPV Neut % (Auto) Lymph % (Auto) [place] % (Auto) Eos % (Auto) Baso % (Auto) Neut # (Auto) Lymph # (Auto) [place] # (Auto) Eos # (Auto) Baso # (Auto) WBC Differential Differential Comment Sodium Potassium Chloride Carbon Dioxide Anion Gap BUN Creatinine Estimated GFR POC Glucose 90 Random Glucose Lactic Acid 2.8 H 8.4 H* Calcium Total Creatine Kinase CK-MB (CK-2) Nasal Screen MRSA (PCR) Vancomycin Trough 06/10/18 06/10/18 06/10/18 05:15 07:44 09:59 WBC RBC Hgb Hct MCV MCH MCHC RDW Plt Count MPV Neut % (Auto) Lymph % (Auto) [place] % (Auto) Eos % (Auto) Baso % (Auto) Neut # (Auto) Lymph # (Auto) [place] # (Auto) Eos # (Auto) Baso # (Auto) WBC Differential Differential Comment Sodium Potassium Chloride Carbon Dioxide Anion Gap BUN Creatinine Estimated GFR POC Glucose 90 Random Glucose Lactic Acid Calcium Total Creatine Kinase CK-MB (CK-2) Nasal Screen MRSA (PCR) Not detected Vancomycin Trough 9.0 06/10/18 06/10/18 06/10/18 09:59 09:59 09:59 WBC 6.0 RBC 3.64 L Hgb 11.7 L D Hct 34.2 L MCV 93.9 MCH 32.0 MCHC 34.1 RDW 13.2 Plt Count 193 D MPV 9.2 Neut % (Auto) 67.6 Lymph % (Auto) 18.8 [place] % (Auto) 12.1 H Eos % (Auto) 1.0 Baso % (Auto) 0.5 Neut # (Auto) 4.1 Lymph # (Auto) 1.1 [place] # (Auto) 0.7 Eos # (Auto) 0.1 Baso # (Auto) 0.0 WBC Differential . Differential Comment Auto diff final Sodium 147 H Potassium 3.6 Chloride 115 H D Carbon Dioxide 24.9 Anion Gap 7 BUN 7 Creatinine 0.60 Estimated GFR Greater than 89 POC Glucose Random Glucose 108 H Lactic Acid 2.0 Calcium 8.0 L D Total Creatine Kinase CK-MB (CK-2) Nasal Screen MRSA (PCR) Vancomycin Trough 06/10/18 06/10/18 12:12 17:07 WBC RBC Hgb Hct MCV MCH MCHC RDW Plt Count MPV Neut % (Auto) Lymph % (Auto) [place] % (Auto) Eos % (Auto) Baso % (Auto) Neut # (Auto) Lymph # (Auto) [place] # (Auto) Eos # (Auto) Baso # (Auto) WBC Differential Differential Comment Sodium Potassium Chloride Carbon Dioxide Anion Gap BUN Creatinine Estimated GFR POC Glucose 88 94 Random Glucose Lactic Acid Calcium Total Creatine Kinase CK-MB (CK-2) Nasal Screen MRSA (PCR) Vancomycin Trough Assessment and Plan - Plan Anoxic bran injury with persistent vegetative sdtate Sepsis ? source Cannot exclude early broncho pneumonia fu P blood, urinae and resp secretions cultures cont current abx further rec's to follow dw3 RN
[2018-06-11] MEDS: Ceftazidime/Avibactam Inj 2.5 GM in Sodium Chlor 0.9% Inj 50 ML IV.SIG SCH ×3 (01:43→17:04)
[2018-06-11] MEDS: Chlorhexidine Gluconate 2% 1 Pack (2 Cloths) TOPICAL SCH (03:36)
[2018-06-11] MEDS ORDERED: Chlorhexidine Gluconate 2% 1 Pack (2 Cloths) TOPICAL PRN (04:00)
[2018-06-11] MEDS: Vancomycin Inj 1,400 MG in Sodium Chlor 0.9% Inj 500 ML IV.SIG SCH ×2 (04:22→13:19)
[2018-06-11] MEDS: Morphine Inj 4 MG/ML Vial IV.PUSH PRN (05:13)
[2018-06-11 07:48] LABS: Baso % (Auto) 0.6 % (0.0-2.0); Eos # (Auto) 0.1 th/mm3 (0.0-0.4); Eos % (Auto) 2.7 % (0.0-4.0); Hematocrit 32.5 % (39.0-51.0); Hemoglobin 11.1 gm/dL (13.0-17.0); Lymph # (Auto) 1.2 th/mm3 (1.0-4.8); Lymph % (Auto) 34.5 % (9.0-44.0); Mean Corpuscular HGB Conc 34.2 % (32.0-36.0); Mean Corpuscular Hemoglobin 32.4 pg (27.0-34.0); Mean Corpuscular Volume 94.5 fL (80.0-100.0); Mean Platelet Volume 9.9 fL (7.0-11.0); Mono # (Auto) 0.5 th/mm3 (0.0-0.9); Mono % (Auto) 14.3 % (0.0-8.0); Neut # (Auto) 1.6 th/mm3 (1.8-7.7); Neut % (Auto) 47.9 % (16.0-70.0); Platelet Count 165 th/mm3 (150-450); Red Blood Count 3.43 mil/mm3 (4.50-5.90); Red Cell Distribution Width 13.2 % (11.6-17.2); White Blood Count 3.3 th/mm3 (4.0-11.0)
[2018-06-11 08:12] LABS: Anion Gap 9 meq/L (5-15); Blood Urea Nitrogen 4 mg/dL (7-18); Calcium 8.1 mg/dL (8.5-10.1); Carbon Dioxide 24.8 meq/L (21.0-32.0); Chloride 112 meq/L (98-107); Glomerular Filtration Rate Greater Than 89 mL/min (>89); Glucose,Random 89 mg/dL (74-106); Potassium 3.2 meq/L (3.5-5.1); Sodium 146 meq/L (136-145)
[2018-06-11] MEDS: Insulin NovoLOG Aspart Correctional Sugar Inj SQ SCH ×4 (08:13→22:57)
[2018-06-11] MEDS: Sod Chloride 0.9% Inj 1,000 ML IV.CONT SCH (08:13)
[2018-06-11] MEDS: Loratadine 10 MG Tablet G-TUBE SCH (08:14)
[2018-06-11] MEDS: Senna/Docusate Sodium 8.6/50 MG Tablet PO SCH ×2 (08:14→22:56)
[2018-06-11] MEDS: Famotidine 20 MG Tablet G-TUBE SCH ×2 (08:14→22:55)
[2018-06-11] MEDS ORDERED: Pharmacy Ordered Lab Info OTHER ONE (11:45)
[2018-06-11] MEDS ORDERED: Potassium Chloride 25 MEQ Effervescent Tablet NG/OG ONE (12:00)
--- NOTE | 2018-06-11 12:02 | P.PNIM ---
Subjective Interval history: No overnight events, vital signs stable, Physical Exam Vital signs: Vital Signs 06/10/18 12:00 06/10/18 12:17 06/10/18 14:00 Temperature 97.5 F L Pulse Rate 81 87 51 L Respiratory Rate 20 18 Blood Pressure 99/55 L Pulse Oximetry 100 06/10/18 16:00 06/10/18 16:10 06/10/18 18:00 Temperature 98.5 F Pulse Rate 64 79 105 H Respiratory Rate 21 18 Blood Pressure 99/55 L Pulse Oximetry 100 06/10/18 20:00 06/10/18 21:21 06/10/18 22:00 Temperature 99 F Pulse Rate 95 H 53 L 81 Respiratory Rate 21 16 Blood Pressure 123/87 Pulse Oximetry 100 100 06/11/18 00:00 06/11/18 01:12 06/11/18 02:00 Temperature 98 F Pulse Rate 70 54 L 95 H Respiratory Rate 18 17 Blood Pressure 142/64 H Pulse Oximetry 100 99 06/11/18 04:00 06/11/18 05:21 06/11/18 06:00 Temperature 98.3 F Pulse Rate 89 49 L 60 Respiratory Rate 26 H 16 Blood Pressure 110/68 Pulse Oximetry 100 06/11/18 08:00 06/11/18 09:07 Temperature 98.2 F Pulse Rate 53 L Respiratory Rate 16 Blood Pressure 138/61 Pulse Oximetry 100 100 Intake & Output 06/10/18 06/11/18 06/11/18 18:59 06:59 18:59 Intake Total 2591 / 2591 3189 / 3189 1000 / 1000 Output Total 1000 / 1000 1974 / 1974 Balance 1591 / 1591 1214 / 1214 1000 / 1000 Weight 70 kg Intake: IV 1564 / 1564 2160 / 2160 1000 / 1000 NS Inj 1,000 ML @ 125 mls/hr IV 1000 / 1000 1000 / 1000 1000 / 1000 .CONT .Q8H [facility] Rx#:[id number] Avycaz Inj 2.5 GM In NS Inj 50 50 / 50 100 / 100 ML @ 25 mls/hr IV.SIG Q8H [facility] Rx#:[id number] Vancomycin Inj 1,400 MG In NS 514 / 514 1060 / 1060 Inj 500 ML @ 250 mls/hr IV.SIG Q8H [facility] Rx#:[id number] Tube Feeding 427 / 427 429 / 429 Water Bolus Amount 600 / 600 600 / 600 Output: Urine 1000 / 1000 1974 Stool 0 / 0 Other: # Incontinent Voids 3 Date of Last Bowel Movement 06/11/18 06/11/18 # Bowel Movements 2 Narrative: GENERAL: Not in acute distress, nonverbal. NECK: T piece in place. CARDIOVASCULAR: Regular rate and rhythm, no murmurs. RESPIRATORY: Occasional rhonchi otherwise clear, no crackles. GASTROINTESTINAL: Abdomen soft, normal bowel sounds, non-tender, nondistended. PEG tube in place, no surrounding erythema. MUSCULOSKELETAL: Extremities without clubbing, cyanosis, or edema. INTEGUMENTARY: Warm and dry, no edema. NEUROLOGICAL: Eyes closed. Nonverbal, does not follow any commands, positive for contractures and bilateral foot drop, decerebrate positioning. Results - Labs CBC & Chem 7: 06/11/18 06:03 06/11/18 06:03 Laboratory Results - last 24 hr 06/10/18 06/10/18 06/10/18 12:12 17:07 18:03 WBC RBC Hgb Hct MCV MCH MCHC RDW Plt Count MPV Neut % (Auto) Lymph % (Auto) [place] % (Auto) Eos % (Auto) Baso % (Auto) Neut # (Auto) Lymph # (Auto) [place] # (Auto) Eos # (Auto) Baso # (Auto) WBC Differential Differential Comment Sodium Potassium Chloride Carbon Dioxide Anion Gap BUN Creatinine Estimated GFR POC Glucose 88 94 Random Glucose Lactic Acid 1.4 Calcium 06/10/18 06/11/18 06/11/18 21:39 06:03 06:03 WBC 3.3 L RBC 3.43 L Hgb 11.1 L Hct 32.5 L MCV 94.5 MCH 32.4 MCHC 34.2 RDW 13.2 Plt Count 165 MPV 9.9 Neut % (Auto) 47.9 Lymph % (Auto) 34.5 [place] % (Auto) 14.3 H Eos % (Auto) 2.7 Baso % (Auto) 0.6 Neut # (Auto) 1.6 L Lymph # (Auto) 1.2 [place] # (Auto) 0.5 Eos # (Auto) 0.1 Baso # (Auto) 0.0 WBC Differential . Differential Comment Auto diff final Sodium 146 H Potassium 3.2 L Chloride 112 H Carbon Dioxide 24.8 Anion Gap 9 BUN 4 L Creatinine 0.47 L Estimated GFR Greater than 89 POC Glucose 80 Random Glucose 89 Lactic Acid Calcium 8.1 L 06/11/18 06/11/18 08:08 11:17 WBC RBC Hgb Hct MCV MCH MCHC RDW Plt Count MPV Neut % (Auto) Lymph % (Auto) [place] % (Auto) Eos % (Auto) Baso % (Auto) Neut # (Auto) Lymph # (Auto) [place] # (Auto) Eos # (Auto) Baso # (Auto) WBC Differential Differential Comment Sodium Potassium Chloride Carbon Dioxide Anion Gap BUN Creatinine Estimated GFR POC Glucose 106 109 Random Glucose Lactic Acid Calcium Microbiology 06/09/18 10:20 Blood - Peripheral Aerobic Blood Culture - Preliminary No growth in 2 days 06/09/18 10:20 Blood - Peripheral Anaerobic Blood Culture - Preliminary No growth in 2 days 06/09/18 10:15 Blood - Peripheral Aerobic Blood Culture - Preliminary No growth in 2 days 06/09/18 10:15 Blood - Peripheral Anaerobic Blood Culture - Preliminary No growth in 2 days 06/09/18 18:00 Sputum - Tracheal Aspirate Gram Stain - Final 06/09/18 18:00 Sputum - Tracheal Aspirate Sputum Culture - Preliminary gram negative rods 06/09/18 10:52 Catheterized Urine Urine Culture - Final No growth in 48 hours Assessment and Plan - Plan 33-year-old male with history of anoxic brain injury, admitted for hypotension and tachycardia during GJ tube placement. 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 coli ESBL. Continue oxygen support with T piece, duo nebs around the clock and as needed. Tracheostomy care. Sepsis based on tachycardia , tachypnea, hypotension with lactic acidosis -Infectious disease following, leukocytosis resolved. -Status post 5 L of normal saline, lactic acidosis resolved, continue telemetry , stop IVF. Per infectious disease, continue vancomycin and Avycaz, Gram stain showed pleomorphic gram-positive rods, moderate WBCs, good sample, follow- up sputum culture, urine culture and blood culture negative to date Anoxic brain injury, seizure disorder -Continue Keppra Sinus tachycardia, resolved-EKG showed sinus tachycardia, could be withdrawal from metoprolol, patient has been taking metoprolol from rehab. Now heart rate in the 60s, restart metoprolol if needed Chronic [id number] post intervention, monitor. Tube feeds ongoing. Diabetes mellitus-insulin sliding scale for now Agitation-Ativan as needed, restarted per home dose Nutrition : Start Jevity 50 cc/h, consult dietitian. Hypokalemia-replace, check magnesium Mild hypernatremia-stop IVF, recheck BMP tomorrow DVT prophylaxis: Apixaban Discussed with patient's mother.
--- NOTE | 2018-06-11 15:48 | P.DIET ---
Nutritional Evaluation Type of nutrition evaluation: initial Nutrition consult regarding: [place] [place] Objective - Diagnosis Hypotension and tachycardia s/p GJ replacement - Objective [place] body weight: 81 kg % IBW: 87 Body Weight Used for Calculations: Actual Energy Needs - Lower Range (kCal/kg): 25 Energy Needs - Upper Range (kCal/kg): 30 Lower Limit kCal/kg (kCals): 1,750 Upper Limit kCal/kg (kCals): 2,100 Lower Limit Protein Factor (Grams per Kg): 1 Upper Limit Protein Factor (Grams per Kg): 1.5 Lower Protein Needs (Protein): 70 Upper Protein Needs (Protein): 105 Dietitian Reviewed in Medical Record: Curent medications, Intake & Output, Labs , Medical history, Tube feeding Diet Order: TF Objective Comments: PMH of anoxic brain injury Assessment Assessment: Pt. is at nutritional risk due to dx. and need for TFing. Pt. presents to the ED for evaluation of episode of hypertension and possible aspiration after getting GJ tube. Patient had an IR intervention today as he had leaking from his GJ tube. This was planned to be done today and he had the procedure and apparently during the procedure he became hypotensive and diaphoretic. Patient has a history of seizures, anorexic brain injury, history of aspiration pneumonia. Pt. with no wounds noted at this time, +UOP and BM. Recommend changing TFing to Glucerna 1.5 @ goal rate of 50mls/hr. Will provide 1800kcals, 99g of protein and 911mls of free water. Monitor TFing tolerance, labs, skin and UOP. Recommendations: 1. Recommend changing TFing to Glucerna 1.5 @ goal rate of 50mls/hr. 2. Monitor TFing tolerance, labs, skin and UOP. Dietitian to Monitor: Lab values, Glucose level, Intake & Output, Tube feeding tolerance, Weight change, Residuals, Wound/skin status, Medical course
[2018-06-11] MEDS: Vancomycin Inj 1,000 MG in Sodium Chlor 0.9% Inj 250 ML IV.SIG SCH (22:54)
[2018-06-12] MEDS: Ceftazidime/Avibactam Inj 2.5 GM in Sodium Chlor 0.9% Inj 50 ML IV.SIG SCH ×3 (02:23→18:27)
[2018-06-12] MEDS: Chlorhexidine Gluconate 2% 1 Pack (2 Cloths) TOPICAL SCH (04:31)
[2018-06-12] MEDS: Vancomycin Inj 1,000 MG in Sodium Chlor 0.9% Inj 250 ML IV.SIG SCH ×3 (04:31→20:27)
[2018-06-12 07:05] LABS: Anion Gap 8 meq/L (5-15); Blood Urea Nitrogen 3 mg/dL (7-18); Calcium 8.4 mg/dL (8.5-10.1); Carbon Dioxide 28.2 meq/L (21.0-32.0); Chloride 108 meq/L (98-107); Glomerular Filtration Rate Greater Than 89 mL/min (>89); Glucose,Random 90 mg/dL (74-106); Potassium 3.1 meq/L (3.5-5.1); Sodium 144 meq/L (136-145)
[2018-06-12] MEDS: Insulin NovoLOG Aspart Correctional Sugar Inj SQ SCH ×4 (10:08→20:28)
[2018-06-12] MEDS: Famotidine 20 MG Tablet G-TUBE SCH ×2 (10:09→20:27)
[2018-06-12] MEDS: Senna/Docusate Sodium 8.6/50 MG Tablet PO SCH ×2 (10:09→20:27)
[2018-06-12] MEDS: Loratadine 10 MG Tablet G-TUBE SCH (10:09)
[2018-06-12] MEDS ORDERED: Potassium Chloride 20 MEQ Pwd Pkt NG/OG ONE (10:15)
--- NOTE | 2018-06-12 10:17 | P.PNIM ---
Subjective Interval history: Follow-up for pneumonia Afebrile overnight, no change in mental status, still with a lot of yellowish thick secretions, oxygenation improving. No residuals. Physical Exam Vital signs: Vital Signs 06/11/18 11:00 06/11/18 12:00 06/11/18 12:02 Temperature 98.7 F Pulse Rate 62 59 L 49 L Respiratory Rate 21 17 20 Blood Pressure 120/71 116/58 L Pulse Oximetry 100 100 06/11/18 13:00 06/11/18 14:00 06/11/18 14:43 Temperature Pulse Rate 55 L 53 L 43 L Respiratory Rate 24 22 22 Blood Pressure 113/63 118/75 Pulse Oximetry 100 92 L 06/11/18 15:00 06/11/18 16:00 06/11/18 18:00 Temperature 98.2 F Pulse Rate 54 L 71 53 L Respiratory Rate 18 24 Blood Pressure 121/71 124/69 Pulse Oximetry 06/11/18 20:00 06/11/18 22:00 06/11/18 22:01 Temperature 97.8 F Pulse Rate 57 L 54 L Respiratory Rate 24 21 Blood Pressure 151/69 H Pulse Oximetry 100 99 06/12/18 00:00 06/12/18 02:00 06/12/18 04:00 Temperature 99.1 F 99.1 F Pulse Rate 49 L 44 L 56 L Respiratory Rate 20 25 H Blood Pressure 164/80 H 127/71 Pulse Oximetry 100 94 L 06/12/18 06:00 06/12/18 09:09 Temperature Pulse Rate 59 L 53 L Respiratory Rate 18 Blood Pressure Pulse Oximetry 100 Intake & Output 06/11/18 06/12/18 06/12/18 18:59 06:59 18:59 Intake Total 2208 / 2208 1224 / 1224 300 / 300 Output Total 3500 / 3500 1900 / 1900 Balance -1292 / -1292 -676 / -676 300 / 300 Weight 71.5 kg Intake: IV 1050 / 1050 300 / 300 300 / 300 NS Inj 1,000 ML @ 125 mls/hr IV 1000 / 1000 .CONT .Q8H [facility] Rx#:[id number] Avycaz Inj 2.5 GM In NS Inj 50 50 / 50 50 / 50 50 / 50 ML @ 25 mls/hr IV.SIG Q8H [facility] Rx#:[id number] Vancomycin Inj 1,000 MG In NS 250 / 250 250 / 250 Inj 250 ML @ 250 mls/hr IV.SIG Q8H [facility] Rx#:[id number] Oral 0 / 0 Tube Feeding 558 / 558 524 / 524 Water Bolus Amount 600 / 600 400 / 400 Output: Urine 3500 / 3500 Urine Amount (Catheter) 1900 / 1900 Condom 1900 / 1900 Other: Date of Last Bowel Movement 06/11/18 06/11/18 # Incontinent Bowel Movements 1 Narrative: GENERAL: Not in acute distress, nonverbal. NECK: T piece in place. CARDIOVASCULAR: Regular rate and rhythm, no murmurs. Borderline bradycardic RESPIRATORY: Clear breath sounds today. GASTROINTESTINAL: Abdomen soft, normal bowel sounds, non-tender, nondistended. PEG tube in place, no surrounding erythema. MUSCULOSKELETAL: Extremities without clubbing, cyanosis, or edema. INTEGUMENTARY: Warm and dry, no edema. NEUROLOGICAL: Eyes closed. Nonverbal, does not follow any commands, positive for contractures and bilateral foot drop, decerebrate positioning. - Urinary Catheter Management Condom Cath placed during this visit: no Results - Labs CBC & Chem 7: 06/11/18 06:03 06/12/18 04:44 Laboratory Results - last 24 hr 06/11/18 06/11/18 06/11/18 11:17 11:58 16:24 Sodium Potassium Chloride Carbon Dioxide Anion Gap BUN Creatinine Estimated GFR POC Glucose 109 93 Random Glucose Calcium Magnesium Vancomycin Trough 20.2 H 06/11/18 06/12/18 21:24 04:44 Sodium 144 Potassium 3.1 L Chloride 108 H Carbon Dioxide 28.2 Anion Gap 8 BUN 3 L Creatinine 0.55 L Estimated GFR Greater than 89 POC Glucose 96 Random Glucose 90 Calcium 8.4 L Magnesium 2.0 Vancomycin Trough Microbiology 06/09/18 10:20 Blood - Peripheral Aerobic Blood Culture - Preliminary No growth in 2 days 06/09/18 10:20 Blood - Peripheral Anaerobic Blood Culture - Preliminary No growth in 2 days 06/09/18 10:15 Blood - Peripheral Aerobic Blood Culture - Preliminary No growth in 2 days 06/09/18 10:15 Blood - Peripheral Anaerobic Blood Culture - Preliminary No growth in 2 days 06/09/18 18:00 Sputum - Tracheal Aspirate Gram Stain - Final 06/09/18 18:00 Sputum - Tracheal Aspirate Sputum Culture - Preliminary gram negative rods 06/09/18 10:52 Catheterized Urine Urine Culture - Final No growth in 48 hours Assessment and Plan - Plan 33-year-old male with history of anoxic brain injury, admitted for hypotension and tachycardia during GJ tube placement. 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 coli ESBL. Continue oxygen support with T piece, duo nebs around the clock and as needed. Tracheostomy care. Sepsis based on tachycardia , tachypnea, hypotension with lactic acidosis. -Infectious disease following, leukocytosis resolved. -Status post 5 L of normal saline, lactic acidosis resolved, continue telemetry. Per infectious disease, continue vancomycin and Avycaz, Gram stain showed pleomorphic gram-negative rods, moderate WBCs, good sample, follow-up sputum culture, urine culture and blood culture negative to date. Vancomycin trough therapeutic. Anoxic brain injury, seizure disorder -Continue Keppra Sinus tachycardia, resolved-EKG showed sinus tachycardia, could be withdrawal from metoprolol, patient has been taking metoprolol from rehab. Now heart rate in the 60s, restart metoprolol if needed Chronic E-[id number]-lvzgpr post intervention, monitor. Tube feeds ongoing. Diabetes mellitus-insulin sliding scale for now Agitation-Ativan as needed, restarted per home dose Nutrition : Switch to Glucerna 1.5 at 50 cc/h per dietitian. Hypokalemia-replace orally and IV, magnesium is fine. Mild hypernatremia-stop IVF, resolved. DVT prophylaxis: Apixaban Discussed with patient's mother. Discharge back to rehab when medically stable
[2018-06-12] MEDS: Potassium Chlor 20 mEq Premix 20 MEQ/100 ML PIGGYBACK IV.SIG SCH ×2 (13:28→15:37)
[2018-06-12] MEDS ORDERED: Potassium Chloride 25 MEQ Effervescent Tablet NG/OG ONE (13:30)
--- NOTE | 2018-06-12 20:46 | P.PNID ---
Subjective Remarks: remains on Tpiece afebrile grew out MDRO PSAE and ESBL Kleb from trach secretions Neutropenic, with ANC of 1600 Antibiotics: avicaz Allergies/Adverse Reactions: Allergies haloperidol Adverse Reaction (Severe, Verified 06/09/18 09:58) Seizures *MDRO Multi-Drug Resistant Organism Adverse Reaction (Unknown, Uncoded 06/09/18 09:58) Dry Mucus Membranes MRSA (sputum) - 04/25/16 & 05/23/16 MRSA PCR Screen POSITIVE - 04/25/2016 ESBL+E.Coli (blood-05/22/16) Objective Vital Signs 06/11/18 22:00 06/11/18 22:01 06/12/18 00:00 Temperature 99.1 F Pulse Rate 54 L 49 L Respiratory Rate 21 20 Blood Pressure 164/80 H Pulse Oximetry 99 100 06/12/18 02:00 06/12/18 04:00 06/12/18 06:00 Temperature 99.1 F Pulse Rate 44 L 56 L 59 L Respiratory Rate 25 H Blood Pressure 127/71 Pulse Oximetry 94 L 06/12/18 08:00 06/12/18 09:00 06/12/18 09:09 Temperature Pulse Rate 78 66 53 L Respiratory Rate 29 H 29 H 18 Blood Pressure 154/72 H 135/75 Pulse Oximetry 100 99 100 06/12/18 10:00 06/12/18 10:01 06/12/18 11:00 Temperature Pulse Rate 60 53 L 55 L Respiratory Rate 23 26 H 28 H Blood Pressure 113/56 L 116/71 Pulse Oximetry 99 100 100 06/12/18 12:00 06/12/18 12:24 06/12/18 14:00 Temperature Pulse Rate 56 L 48 L 70 Respiratory Rate 27 H 20 Blood Pressure 121/64 Pulse Oximetry 100 06/12/18 16:00 06/12/18 16:01 06/12/18 16:03 Temperature 98.9 F Pulse Rate 50 L 48 L 65 Respiratory Rate 24 23 18 Blood Pressure 144/65 H Pulse Oximetry 96 85 L 06/12/18 18:00 Temperature Pulse Rate 65 Respiratory Rate Blood Pressure Pulse Oximetry Intake & Output 06/12/18 06/12/18 06/13/18 06:59 18:59 06:59 Intake Total 1224 / 1224 1785 / 1785 Output Total 1900 / 1900 1200 / 1200 Balance -676 / -676 585 / 585 Weight 71.5 kg Intake: IV 300 / 300 800 / 800 Avycaz Inj 2.5 GM In NS Inj 50 50 / 50 100 / 100 ML @ 25 mls/hr IV.SIG Q8H [facility] Rx#:[id number] KCl 20 mEq Premix Inj 20 meq In 200 / 200 100 ml @ 50 mls/hr IV.SIG Q2H [facility] Rx#:[id number] Vancomycin Inj 1,000 MG In NS 250 / 250 500 / 500 Inj 250 ML @ 250 mls/hr IV.SIG Q8H [facility] Rx#:[id number] Oral 0 / 0 Tube Feeding 524 / 524 585 / 585 Water Bolus Amount 400 / 400 400 / 400 Output: Urine 1200 / 1200 Urine Amount (Catheter) 1900 / 1900 Condom 1900 / 1900 Other: # Voids 2 Date of Last Bowel Movement 06/11/18 06/12/18 # Bowel Movements 1 06/09/18 18:00 Sputum - Tracheal Aspirate Gram Stain - Final 06/09/18 18:00 Sputum - Tracheal Aspirate Sputum Culture - Final Pseudomonas aeruginosa Escherichia coli ESBL positive 06/09/18 10:20 Blood - Peripheral Aerobic Blood Culture - Preliminary No growth in 3 days 06/09/18 10:20 Blood - Peripheral Anaerobic Blood Culture - Preliminary No growth in 3 days 06/09/18 10:15 Blood - Peripheral Aerobic Blood Culture - Preliminary No growth in 3 days 06/09/18 10:15 Blood - Peripheral Anaerobic Blood Culture - Preliminary No growth in 3 days 06/09/18 10:52 Catheterized Urine Urine Culture - Final No growth in 48 hours Lab - Hematology Results 06/11/18 06:03 WBC 3.3 L RBC 3.43 L Hgb 11.1 L Hct 32.5 L MCV 94.5 MCH 32.4 MCHC 34.2 RDW 13.2 Plt Count 165 MPV 9.9 Neut % (Auto) 47.9 Lymph % (Auto) 34.5 [place] % (Auto) 14.3 H Eos % (Auto) 2.7 Baso % (Auto) 0.6 Neut # (Auto) 1.6 L Lymph # (Auto) 1.2 [place] # (Auto) 0.5 Eos # (Auto) 0.1 Baso # (Auto) 0.0 WBC Differential . Differential Comment Auto diff final Lab - Chemistry Results 06/10/18 06/11/18 06/11/18 21:39 06:03 08:08 Sodium 146 H Potassium 3.2 L Chloride 112 H Carbon Dioxide 24.8 Anion Gap 9 BUN 4 L Creatinine 0.47 L Estimated GFR Greater than 89 POC Glucose 80 106 Random Glucose 89 Calcium 8.1 L Magnesium 06/11/18 06/11/18 06/11/18 11:17 16:24 21:24 Sodium Potassium Chloride Carbon Dioxide Anion Gap BUN Creatinine Estimated GFR POC Glucose 109 93 96 Random Glucose Calcium Magnesium 06/12/18 06/12/18 04:44 20:22 Sodium 144 Potassium 3.1 L Chloride 108 H Carbon Dioxide 28.2 Anion Gap 8 BUN 3 L Creatinine 0.55 L Estimated GFR Greater than 89 POC Glucose 80 Random Glucose 90 Calcium 8.4 L Magnesium 2.0 Imaging: ITS Impressions Chest X-Ray 06/09/18 10:17 CONCLUSION: No acute focal pulmonary infiltrate or pulmonary vascular congestion. Physical Exam: GENERAL: NAD SKIN: Warm and dry. HEAD: Atraumatic. Normocephalic. EYES: Pupils equal and round. No scleral icterus. No injection or drainage. ENT: No nasal bleeding or discharge. Mucous membranes pink and moist. large amount of clear saliva NECK: Trach in place CARDIOVASCULAR: Regular rate and rhythm. RESPIRATORY: No accessory muscle use. Clear to auscultation. Breath sounds equal bilaterally. GASTROINTESTINAL: Abdomen soft, non-tender, nondistended. Hepatic and splenic margins not palpable. PEG in place - [place] MUSCULOSKELETAL: Extremities without clubbing, cyanosis, or edema. No obvious deformities. NEUROLOGICAL: Awake and alert. Eyes opened. No eye contact NOt following commands. NOn verbal. 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 source Cannot exclude early broncho pneumonia Neutropenia cont avicaz repeat WBC
[2018-06-13] MEDS: Ceftazidime/Avibactam Inj 2.5 GM in Sodium Chlor 0.9% Inj 50 ML IV.SIG SCH ×2 (02:57→10:04)
[2018-06-13] MEDS ORDERED: Pharmacy Ordered Lab Info OTHER ONE (03:45)
[2018-06-13] MEDS: Vancomycin Inj 1,000 MG in Sodium Chlor 0.9% Inj 250 ML IV.SIG SCH ×3 (05:03→20:14)
[2018-06-13] MEDS: Chlorhexidine Gluconate 2% 1 Pack (2 Cloths) TOPICAL SCH (05:04)
[2018-06-13 05:10] LABS: Baso % (Auto) 0.3 % (0.0-2.0); Eos # (Auto) 0.2 th/mm3 (0.0-0.4); Eos % (Auto) 3.7 % (0.0-4.0); Hemoglobin 13.1 gm/dL (13.0-17.0); Lymph # (Auto) 1.1 th/mm3 (1.0-4.8); Lymph % (Auto) 24.2 % (9.0-44.0); Mean Corpuscular HGB Conc 34.4 % (32.0-36.0); Mean Corpuscular Hemoglobin 31.9 pg (27.0-34.0); Mean Corpuscular Volume 92.8 fL (80.0-100.0); Mean Platelet Volume 10.1 fL (7.0-11.0); Mono # (Auto) 0.5 th/mm3 (0.0-0.9); Neut # (Auto) 2.7 th/mm3 (1.8-7.7); Neut % (Auto) 59.8 % (16.0-70.0); Platelet Count 183 th/mm3 (150-450); Red Blood Count 4.09 mil/mm3 (4.50-5.90); Red Cell Distribution Width 13.2 % (11.6-17.2); White Blood Count 4.5 th/mm3 (4.0-11.0)
--- NOTE | 2018-06-13 07:14 | P.PNIM ---
Subjective Interval history: Pt seen and examined for f/u severe sepsis, PNA, anoxic brain injury, seizures, chronic respiratory failure on trach. AFVSS. D/W nursing. No acute events. On T- piece. Physical Exam Vital signs: Vital Signs 06/12/18 08:00 06/12/18 09:00 06/12/18 09:09 Temperature Pulse Rate 78 66 53 L Respiratory Rate 29 H 29 H 18 Blood Pressure 154/72 H 135/75 Pulse Oximetry 100 99 100 06/12/18 10:00 06/12/18 10:01 06/12/18 11:00 Temperature Pulse Rate 60 53 L 55 L Respiratory Rate 23 26 H 28 H Blood Pressure 113/56 L 116/71 Pulse Oximetry 99 100 100 06/12/18 12:00 06/12/18 12:24 06/12/18 14:00 Temperature Pulse Rate 56 L 48 L 70 Respiratory Rate 27 H 20 Blood Pressure 121/64 Pulse Oximetry 100 06/12/18 16:00 06/12/18 16:01 06/12/18 16:03 Temperature 98.9 F Pulse Rate 50 L 48 L 65 Respiratory Rate 24 23 18 Blood Pressure 144/65 H Pulse Oximetry 96 85 L 06/12/18 17:00 06/12/18 18:00 06/12/18 19:00 Temperature Pulse Rate 52 L 65 79 Respiratory Rate 24 28 H 27 H Blood Pressure 137/94 H 131/80 Pulse Oximetry 100 06/12/18 19:27 06/12/18 20:00 06/12/18 20:29 Temperature 99.8 F H Pulse Rate 69 53 L 59 L Respiratory Rate 21 27 H 19 Blood Pressure 140/89 134/76 Pulse Oximetry 99 100 100 06/12/18 20:59 06/12/18 21:00 06/12/18 22:00 Temperature Pulse Rate 77 59 L 110 H Respiratory Rate 18 30 H 40 H Blood Pressure 130/70 Pulse Oximetry 99 100 76 L 06/12/18 22:06 06/12/18 23:00 06/12/18 23:01 Temperature Pulse Rate 232 H 78 80 Respiratory Rate 32 H 29 H 33 H Blood Pressure 180/98 H 133/60 Pulse Oximetry 95 90 L 94 L 06/13/18 00:00 06/13/18 00:01 06/13/18 01:00 Temperature Pulse Rate 77 76 78 Respiratory Rate 27 H 25 H 23 Blood Pressure 119/77 132/81 Pulse Oximetry 100 100 06/13/18 01:02 06/13/18 02:00 06/13/18 03:00 Temperature Pulse Rate 76 70 75 Respiratory Rate 20 26 H 28 H Blood Pressure 150/78 H 155/98 H Pulse Oximetry 100 06/13/18 04:00 06/13/18 04:01 06/13/18 04:48 Temperature Pulse Rate 77 63 72 Respiratory Rate 27 H 29 H 18 Blood Pressure 160/72 H Pulse Oximetry 99 100 06/13/18 05:00 06/13/18 05:01 06/13/18 06:00 Temperature Pulse Rate 71 78 56 L Respiratory Rate 31 H 28 H 28 H Blood Pressure 141/70 H Pulse Oximetry 100 100 06/13/18 06:01 Temperature Pulse Rate 56 L Respiratory Rate 28 H Blood Pressure 107/57 L Pulse Oximetry Intake & Output 06/12/18 06/13/18 06/13/18 18:59 06:59 18:59 Intake Total 1785 / 1785 1233 / 1233 Output Total 1200 / 1200 550 / 550 Balance 585 / 585 683 / 683 Weight 70 kg Intake: IV 800 / 800 300 / 300 Avycaz Inj 2.5 GM In NS Inj 50 100 / 100 50 / 50 ML @ 25 mls/hr IV.SIG Q8H [facility] Rx#:[id number] KCl 20 mEq Premix Inj 20 meq In 200 / 200 100 ml @ 50 mls/hr IV.SIG Q2H [facility] Rx#:[id number] Vancomycin Inj 1,000 MG In NS 500 / 500 250 / 250 Inj 250 ML @ 250 mls/hr IV.SIG Q8H [facility] Rx#:[id number] Tube Feeding 585 / 585 533 / 533 Water Bolus Amount 400 / 400 400 / 400 Output: Urine 1200 / 1200 Urine Amount (Catheter) 550 / 550 Condom 550 / 550 Other: # Voids 2 4 Date of Last Bowel Movement 06/12/18 06/12/18 # Bowel Movements 1 Narrative: GENERAL: AA male resting in bed. Trach in place. SKIN: Skin is diaphoretic. HEART: RRR no m/r/g. LUNGS: Anterior lung sounds CTAB without wheezes or crackles. ABDOMEN: +BS, soft, NT, ND. PEG in place with no surrounding erythema or drainage. EXTREMITIES: No LE edema. NEURO: Anoxic brain injury. Eyes closed and patient remains nonverbal. Does not awaken or follow commands. B/L foot drop, decerebrate positioning. - Urinary Catheter Management Condom Cath placed during this visit: no Results - Labs CBC & Chem 7: 06/13/18 03:45 06/12/18 04:44 Laboratory Results - last 24 hr 06/12/18 06/12/18 06/13/18 04:44 20:22 03:45 WBC RBC Hgb Hct MCV MCH MCHC RDW Plt Count MPV Neut % (Auto) Lymph % (Auto) Mcn[place] % (Auto) Eos % (Auto) Baso % (Auto) Neut # (Auto) Lymph # (Auto) [place] # (Auto) Eos # (Auto) Baso # (Auto) WBC Differential Differential Comment Sodium 144 Potassium 3.1 L Chloride 108 H Carbon Dioxide 28.2 Anion Gap 8 BUN 3 L Creatinine 0.55 L Estimated GFR Greater than 89 POC Glucose 80 Random Glucose 90 Calcium 8.4 L Magnesium 2.0 Vancomycin Trough 16.5 H 06/13/18 03:45 WBC 4.5 RBC 4.09 L Hgb 13.1 D Hct 38.0 L MCV 92.8 MCH 31.9 MCHC 34.4 RDW 13.2 Plt Count 183 MPV 10.1 Neut % (Auto) 59.8 Lymph % (Auto) 24.2 [place] % (Auto) 12.0 H Eos % (Auto) 3.7 Baso % (Auto) 0.3 Neut # (Auto) 2.7 Lymph # (Auto) 1.1 [place]nairy # (Auto) 0.5 Eos # (Auto) 0.2 Baso # (Auto) 0.0 WBC Differential . Differential Comment Auto diff final Sodium Potassium Chloride Carbon Dioxide Anion Gap BUN Creatinine Estimated GFR POC Glucose Random Glucose Calcium Magnesium Vancomycin Trough Microbiology 06/09/18 18:00 Sputum - Tracheal Aspirate Gram Stain - Final 06/09/18 18:00 Sputum - Tracheal Aspirate Sputum Culture - Final Pseudomonas aeruginosa Escherichia coli ESBL positive 06/09/18 10:20 Blood - Peripheral Aerobic Blood Culture - Preliminary No growth in 3 days 06/09/18 10:20 Blood - Peripheral Anaerobic Blood Culture - Preliminary No growth in 3 days 06/09/18 10:15 Blood - Peripheral Aerobic Blood Culture - Preliminary No growth in 3 days 06/09/18 10:15 Blood - Peripheral Anaerobic Blood Culture - Preliminary No growth in 3 days Assessment and Plan - Assessment (1) Sepsis Code(s): A41.9 - Sepsis, unspecified organism Status: Acute (2) Hospital acquired PNA Code(s): J18.9 - Pneumonia, unspecified organism Status: Acute (3) Anoxic encephalopathy Code(s): G93.1 - Anoxic brain damage, not elsewhere classified Status: Chronic (4) 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 HTN, and frequent hospitalizations for aspiration pneumonia admitted on 06/09 for acute respiratory failure and severe sepsis. He had been sent to the ED from IR during GJ tube replacement for hypotension and tachycardia. 1. Acute on chronic respiratory failure with severe sepsis/pneumonia - Likely secondary to early pneumonia given hypoxia, thick tracheal secretions, and severe sepsis (on admission was hypotensive, tachycardic, and lactic acid elevated) - Sepsis component resolved - Recently treated as an inpatient for HCAP 05/22-06/03 (MDRO Pseudomonas and ESBL E. coli) - Continue broad spectrum abx with vancomycin and Avycaz - ID following, appreciate assistance - Sputum culture from trach growing MDRO Pseudo and ESBL E. coli once again - Trach care - Supplemental O2 PRN - Bronchodilators 2. Anoxic brain injury, seizure disorder - Continue home Keppra - Tolerating tube feeds - Membership Manager following; recommend Glucerna 1.5 at 50 cc/hr 3. DM - Bedside Accuchecks have been normal - SSI per protocol 4. Agitation - Ativan PRN 5. 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
[2018-06-13] MEDS: Famotidine 20 MG Tablet G-TUBE SCH ×2 (10:04→20:15)
[2018-06-13] MEDS: Insulin NovoLOG Aspart Correctional Sugar Inj SQ SCH ×4 (10:04→21:06)
[2018-06-13] MEDS: Loratadine 10 MG Tablet G-TUBE SCH (10:04)
[2018-06-13] MEDS: Senna/Docusate Sodium 8.6/50 MG Tablet PO SCH ×2 (10:04→20:15)
[2018-06-13 14:50] LABS: Blood Urea Nitrogen 5 mg/dL (7-18); Calcium 8.8 mg/dL (8.5-10.1); Carbon Dioxide 28.2 meq/L (21.0-32.0); Glomerular Filtration Rate Greater Than 89 mL/min (>89); Glucose,Random 96 mg/dL (74-106)
[2018-06-13 15:03] LABS: Anion Gap 9 meq/L (5-15); Chloride 105 meq/L (98-107); Potassium 3.8 meq/L (3.5-5.1); Sodium 142 meq/L (136-145)
[2018-06-13] MEDS: Morphine Inj 4 MG/ML Vial IV.PUSH PRN (20:25)
[2018-06-14] MEDS: Ceftazidime/Avibactam Inj 2.5 GM in Sodium Chlor 0.9% Inj 50 ML IV.SIG SCH ×4 (01:28→17:25)
[2018-06-14] MEDS: Chlorhexidine Gluconate 2% 1 Pack (2 Cloths) TOPICAL SCH (03:53)
[2018-06-14] MEDS: Vancomycin Inj 1,000 MG in Sodium Chlor 0.9% Inj 250 ML IV.SIG SCH ×3 (03:53→21:27)
[2018-06-14] MEDS: Morphine Inj 4 MG/ML Vial IV.PUSH PRN (04:43)
[2018-06-14 07:15] LABS: Hematocrit 38.3 % (39.0-51.0); Hemoglobin 13.1 gm/dL (13.0-17.0); Mean Corpuscular HGB Conc 34.2 % (32.0-36.0); Mean Corpuscular Hemoglobin 31.8 pg (27.0-34.0); Mean Corpuscular Volume 93.1 fL (80.0-100.0); Mean Platelet Volume 10.2 fL (7.0-11.0); Platelet Count 173 th/mm3 (150-450); Red Blood Count 4.12 mil/mm3 (4.50-5.90); Red Cell Distribution Width 13.5 % (11.6-17.2)
--- NOTE | 2018-06-14 07:17 | P.PNIM ---
Subjective Interval history: Pt seen and examined. Bradycardic otherwise vitals stable. On T-piece. D/w RN. No acute events other than J part of GJ tube is clogged despite attempts at flushing. Physical Exam Vital signs: Vital Signs 06/13/18 08:00 06/13/18 08:01 06/13/18 08:55 Temperature 98.9 F Pulse Rate 66 76 58 L Respiratory Rate 24 30 H 18 Blood Pressure 134/60 Pulse Oximetry 100 06/13/18 10:00 06/13/18 12:00 06/13/18 12:01 Temperature 99.1 F Pulse Rate 59 L 74 58 L Respiratory Rate 32 H 20 Blood Pressure 139/80 Pulse Oximetry 100 06/13/18 13:00 06/13/18 14:00 06/13/18 15:00 Temperature Pulse Rate 84 104 H 76 Respiratory Rate 28 H 9 L 6 L Blood Pressure 124/56 L 104/66 130/69 Pulse Oximetry 99 97 97 06/13/18 16:00 06/13/18 16:01 06/13/18 16:16 Temperature 99.9 F H Pulse Rate 111 H 79 104 H Respiratory Rate 31 H 30 H 26 H Blood Pressure 152/97 H Pulse Oximetry 100 100 06/13/18 18:00 06/13/18 20:00 06/13/18 22:00 Temperature 98.9 F Pulse Rate 80 72 101 H Respiratory Rate 31 H Blood Pressure 150/69 H Pulse Oximetry 100 06/13/18 22:19 06/14/18 00:00 06/14/18 02:00 Temperature 98.5 F Pulse Rate 48 L 47 L Respiratory Rate 12 17 Blood Pressure 93/50 L Pulse Oximetry 100 06/14/18 04:00 06/14/18 06:00 06/14/18 06:51 Temperature 98 F Pulse Rate 49 L 52 L Respiratory Rate 21 Blood Pressure 117/72 Pulse Oximetry 100 100 Intake & Output 06/13/18 06/14/18 06/14/18 18:59 06:59 18:59 Intake Total 1202 / 1202 550 / 550 Output Total 1999 600 / 600 Balance -798 / -798 -50 / -50 Weight 71 kg Intake: IV 300 / 300 550 / 550 Avycaz Inj 2.5 GM In NS Inj 50 50 / 50 50 / 50 ML @ 25 mls/hr IV.SIG Q8H [facility] Rx#:[id number] Vancomycin Inj 1,000 MG In NS 250 / 250 500 / 500 Inj 250 ML @ 250 mls/hr IV.SIG Q8H [facility] Rx#:[id number] Tube Feeding 502 / 502 Water Bolus Amount 400 / 400 Output: Urine 2000 / 1999 Urine Amount (Catheter) 600 / 600 Condom 600 / 600 Other: Date of Last Bowel Movement 06/12/18 # Bowel Movements 0 Narrative: GENERAL: AA male resting in bed. Trach in place. SKIN: Skin is diaphoretic. HEART: RRR no m/r/g. LUNGS: Anterior lung sounds CTAB without wheezes or crackles. ABDOMEN: +BS, soft, NT, ND. GJ tube in place with no surrounding erythema or drainage. EXTREMITIES: No LE edema. NEURO: Anoxic brain injury. Eyes closed and patient remains nonverbal. Does not awaken or follow commands. B/L foot drop, decerebrate positioning. - Urinary Catheter Management Condom Cath placed during this visit: no Results - Labs CBC & Chem 7: 06/14/18 05:30 06/14/18 05:30 Laboratory Results - last 24 hr 06/13/18 06/13/18 06/13/18 12:05 13:43 20:38 Sodium 142 Potassium 3.8 Chloride 105 Carbon Dioxide 28.2 Anion Gap 9 BUN 5 L Creatinine 0.70 Estimated GFR Greater than 89 POC Glucose 92 89 Random Glucose 96 Calcium 8.8 Microbiology 06/09/18 10:20 Blood - Peripheral Aerobic Blood Culture - Preliminary No growth in 4 days 06/09/18 10:20 Blood - Peripheral Anaerobic Blood Culture - Preliminary No growth in 4 days 06/09/18 10:15 Blood - Peripheral Aerobic Blood Culture - Preliminary No growth in 4 days 06/09/18 10:15 Blood - Peripheral Anaerobic Blood Culture - Preliminary No growth in 4 days Assessment and Plan - Assessment (1) Sepsis Code(s): A41.9 - Sepsis, unspecified organism Status: Acute (2) Hospital acquired PNA Code(s): J18.9 - Pneumonia, unspecified organism Status: Acute (3) Anoxic encephalopathy Code(s): G93.1 - Anoxic brain damage, not elsewhere classified Status: Chronic (4) 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 He had been sent to the ED from IR during GJ tube replacement for hypotension and tachycardia. 1. Acute on chronic respiratory failure with severe sepsis/pneumonia - On T-piece - Likely secondary to early pneumonia given hypoxia, thick tracheal secretions, and severe sepsis - Recently treated as an inpatient for HCAP 05/22-06/03 (MDRO Pseudomonas and ESBL E. coli) - Continue broad spectrum abx with vancomycin and Avycaz - ID following, appreciate assistance - Sputum culture from trach growing MDRO Pseudo and ESBL E. coli once again - Trach care - Supplemental O2 PRN - Bronchodilators 2. Sepsis - Pt met sepsis criteria based on temperature, lactic acidosis, hypotension, and higher oxygen demand with source likely early pneumonia - Acute septic component resolved - S/P 5L NS - Blood cultures negative at four days - Urine culture with no growth 3. Bradycardia - Possibly secondary to morphine - Otherwise hemodynamically stable - Avoid further rate lowering agents - Monitor 4. Anoxic brain injury, seizure disorder - Continue home Keppra - S/P GJ tube exchange on 06/09 for feeding tube dysfunction and now J-tube clogged - Consult IR - Rd Manager following; recommend Glucerna 1.5 at 50 cc/hr 5. DM - Bedside Accuchecks have been normal - SSI per protocol 6. Agitation - Ativan PRN 7. Hypokalemia - Resolved DVT prophylaxis: Continue home Apixaban Discharge Planning: Once clinically stable will d/c back to rehab (1) Sepsis Qualifiers: Sepsis type: sepsis due to unspecified organism Qualified Code(s): A41.9 - Sepsis, unspecified organism
[2018-06-14 07:44] LABS: Anion Gap 7 meq/L (5-15); Blood Urea Nitrogen 5 mg/dL (7-18); Calcium 8.7 mg/dL (8.5-10.1); Carbon Dioxide 29.8 meq/L (21.0-32.0); Chloride 105 meq/L (98-107); Glomerular Filtration Rate Greater Than 89 mL/min (>89); Glucose,Random 87 mg/dL (74-106); Potassium 3.6 meq/L (3.5-5.1); Sodium 142 meq/L (136-145)
[2018-06-14] MEDS: Insulin NovoLOG Aspart Correctional Sugar Inj SQ SCH ×4 (08:10→21:28)
[2018-06-14] MEDS: Famotidine 20 MG Tablet G-TUBE SCH ×2 (08:10→21:30)
[2018-06-14] MEDS: Senna/Docusate Sodium 8.6/50 MG Tablet PO SCH ×2 (08:10→21:28)
[2018-06-14] MEDS: Loratadine 10 MG Tablet G-TUBE SCH (08:10)
[2018-06-14] MEDS ORDERED: Iohexol Inj 350 MG/ML 100 ML Bottle (for RAD Diag) G-TUBE ONE (16:43)
--- NOTE | 2018-06-14 17:31 | IR ---
EXAM DATE: 06/14/2018 4:53 PM EDT AGE/SEX: 33 years / Male INDICATIONS: Patient with a history of anoxic brain injury. CLINICAL DATA: This is the patient's subsequent encounter. Patient reports that signs and symptoms h ave been present for > 1 year and indicates a pain score of Nonresponsive. MEDICAL/SURGICAL HISTORY: Hypertension. Diabetes. Pancreatitis. Anoxic brain injuryAspiratio n pneumoniaSeizuresDVTGERDAphasia TracheostomyPEG tub placement COMPARISON: [facility] [place], GASTROJEJUNOSTOMY TUBE EXCHANGE, 06/09/2018. . FLUORO TIME (min): 3.56 IMAGE SERIES: 1 CONTRAST (cc): 20 Omnipaque (iohexol) 350 DEVICE(S): 22 Brazilian Transgastric tube . . PROCEDURE: 1. Fluoroscopically guided gastrojejunostomy tube exchange. 2. Conscious sedation with continuous EKG and oximetry monitoring. The risks, benefits and alternatives to the procedure were explained and verbal and written consent w as obtained. The site was prepped in sterile fashion. Full sterile technique was used, including ca p, mask, sterile gloves and gown and a large sterile sheet. Hand hygiene and 2% chlorhexidine and/or betadine/alcohol prep was utilized per protocol for cutaneous antisepsis. The skin and subcutaneous tissues were infiltrated with local anesthetic solution. With fluoroscopic guidance a guidewire was passed through the previous gastrojejunostomy tube and a f resh tube was placed over the guidewire. The balloon was inflated with appropriate volume of saline. Injection of positive contrast demonstrates good position of the gastric and jejunal lumens of the tube. Conscious sedation was performed with the prescribed dosages and duration as above in the presence of an independent trained radiology nurse to assist in the monitoring of the patient. EKG and oximetry remained stable throughout the procedure. The patient tolerated the procedure well and there were n o complications. The patient was sent to post anesthesia recovery in stable condition. CONCLUSION: 1. Uncomplicated gastrojejunostomy tube exchange as above. Electronically signed by: Benigno Pimentel MD 06/14/2018 5:29 PM EDT
[2018-06-15] MEDS: Ceftazidime/Avibactam Inj 2.5 GM in Sodium Chlor 0.9% Inj 50 ML IV.SIG SCH ×3 (01:47→17:00)
[2018-06-15] MEDS ORDERED: Pharmacy Ordered Lab Info OTHER ONE (03:45)
[2018-06-15] MEDS: Chlorhexidine Gluconate 2% 1 Pack (2 Cloths) TOPICAL SCH (03:54)
[2018-06-15] MEDS: Vancomycin Inj 1,000 MG in Sodium Chlor 0.9% Inj 250 ML IV.SIG SCH ×2 (04:46→16:47)
[2018-06-15 07:37] LABS: Hematocrit 42.1 % (39.0-51.0); Hemoglobin 14.1 gm/dL (13.0-17.0); Mean Corpuscular HGB Conc 33.4 % (32.0-36.0); Mean Corpuscular Hemoglobin 31.6 pg (27.0-34.0); Mean Corpuscular Volume 94.8 fL (80.0-100.0); Mean Platelet Volume 10.4 fL (7.0-11.0); Platelet Count 191 th/mm3 (150-450); Red Blood Count 4.45 mil/mm3 (4.50-5.90); Red Cell Distribution Width 13.8 % (11.6-17.2); White Blood Count 4.2 th/mm3 (4.0-11.0)
[2018-06-15 08:09] LABS: Anion Gap 7 meq/L (5-15); Blood Urea Nitrogen 7 mg/dL (7-18); Calcium 9.1 mg/dL (8.5-10.1); Carbon Dioxide 29.6 meq/L (21.0-32.0); Chloride 105 meq/L (98-107); Glomerular Filtration Rate Greater Than 89 mL/min (>89); Glucose,Random 77 mg/dL (74-106); Potassium 4.1 meq/L (3.5-5.1); Sodium 142 meq/L (136-145)
[2018-06-15] MEDS: Senna/Docusate Sodium 8.6/50 MG Tablet PO SCH ×2 (08:49→20:55)
[2018-06-15] MEDS: Loratadine 10 MG Tablet G-TUBE SCH (08:50)
[2018-06-15] MEDS: Insulin NovoLOG Aspart Correctional Sugar Inj SQ SCH ×4 (08:50→20:56)
[2018-06-15] MEDS: Famotidine 20 MG Tablet G-TUBE SCH ×2 (08:50→20:55)
--- NOTE | 2018-06-15 09:56 | P.PN ---
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/sepsis/ respiratory failure June 15, 2018-patient seen and examined, nonverbal, afebrile, on T-piece Physical Exam Vital signs: Vital Signs 06/14/18 10:00 06/14/18 10:17 06/14/18 11:00 Temperature Pulse Rate 48 L 64 Respiratory Rate 15 16 Blood Pressure 97/57 L 87/54 L Pulse Oximetry 100 99 100 06/14/18 12:00 06/14/18 12:01 06/14/18 13:00 Temperature 98.6 F Pulse Rate 48 L 45 L 54 L Respiratory Rate 17 19 18 Blood Pressure 110/58 L 108/74 Pulse Oximetry 100 100 96 06/14/18 14:00 06/14/18 15:00 06/14/18 15:01 Temperature Pulse Rate 58 L 49 L 41 L Respiratory Rate 23 19 17 Blood Pressure 123/66 111/51 L Pulse Oximetry 99 100 100 06/14/18 16:00 06/14/18 18:00 06/14/18 20:00 Temperature 98.7 F Pulse Rate 42 L 48 L 47 L Respiratory Rate 18 Blood Pressure 119/75 Pulse Oximetry 100 06/14/18 20:48 06/14/18 22:00 06/14/18 23:38 Temperature Pulse Rate 49 L Respiratory Rate Blood Pressure Pulse Oximetry 100 98 06/15/18 00:00 06/15/18 02:00 06/15/18 03:12 Temperature 97.6 F Pulse Rate 51 L 59 L Respiratory Rate 17 Blood Pressure 134/67 Pulse Oximetry 100 98 06/15/18 04:00 06/15/18 06:00 06/15/18 08:26 Temperature 98.4 F Pulse Rate 46 L 51 L Respiratory Rate 14 Blood Pressure 96/55 L Pulse Oximetry 99 100 Intake & Output 06/14/18 06/15/18 06/15/18 18:59 06:59 18:59 Intake Total 640 / 640 1247 / 1247 Output Total 1400 / 1400 500 / 500 Balance -760 / -760 747 / 747 Weight 77 kg Intake: IV 550 / 550 350 / 350 Avycaz Inj 2.5 GM In NS Inj 50 50 / 50 100 / 100 ML @ 25 mls/hr IV.SIG Q8H [facility] Rx#:[id number] Vancomycin Inj 1,000 MG In NS 500 / 500 250 / 250 Inj 250 ML @ 250 mls/hr IV.SIG Q8H [facility] Rx#:[id number] Tube Feeding 0 / 0 297 / 297 Water Bolus Amount 90 / 90 600 / 600 Output: Urine 1400 / 1400 500 / 500 Other: Date of Last Bowel Movement 06/12/18 # Bowel Movements 0 0 Narrative: GENERAL: nonverbal in NAD. Trach in place. SKIN: Skin is diaphoretic. HEART: RRR no m/r/g. LUNGS: Anterior lung sounds CTAB without wheezes or crackles. ABDOMEN: +BS, soft, NT, ND. GJ tube in place with no surrounding erythema or drainage. EXTREMITIES: No LE edema. NEURO: Anoxic brain injury. Eyes closed and patient remains nonverbal. Does not awaken or follow commands. B/L foot drop, decerebrate positioning. - Urinary Catheter Management Condom Cath placed during this visit: no Results - Labs CBC & Chem 7: 06/15/18 06:05 06/15/18 06:05 Laboratory Results - last 24 hr 06/14/18 06/15/18 06/15/18 20:37 03:40 06:05 WBC 4.2 RBC 4.45 L Hgb 14.1 Hct 42.1 MCV 94.8 MCH 31.6 MCHC 33.4 RDW 13.8 Plt Count 191 MPV 10.4 Sodium Potassium Chloride Carbon Dioxide Anion Gap BUN Creatinine Estimated GFR POC Glucose 72 Random Glucose Calcium Vancomycin Trough 22.1 H 06/15/18 06/15/18 06:05 08:43 WBC RBC Hgb Hct MCV MCH MCHC RDW Plt Count MPV Sodium 142 Potassium 4.1 Chloride 105 Carbon Dioxide 29.6 Anion Gap 7 BUN 7 Creatinine 0.73 Estimated GFR Greater than 89 POC Glucose 101 Random Glucose 77 Calcium 9.1 Vancomycin Trough Microbiology 06/09/18 10:20 Blood - Peripheral Aerobic Blood Culture - Final No growth in 5 days 06/09/18 10:20 Blood - Peripheral Anaerobic Blood Culture - Final No growth in 5 days 06/09/18 10:15 Blood - Peripheral Aerobic Blood Culture - Final No growth in 5 days 06/09/18 10:15 Blood - Peripheral Anaerobic Blood Culture - Final No growth in 5 days - Imaging Impressions Tube Change 06/14/18 00:00 CONCLUSION: 1. Uncomplicated gastrojejunostomy tube exchange as above. 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 Acute on chronic respiratory failure with severe sepsis/pneumonia - On T-piece - Likely secondary to early pneumonia given hypoxia, thick tracheal secretions, and severe sepsis - Recently treated as an inpatient for HCAP 05/22-06/03 (MDRO Pseudomonas and ESBL E. coli) - Continue broad spectrum abx with vancomycin and Avycaz - ID following, appreciate assistance - Sputum culture from trach growing MDRO Pseudo and ESBL E. coli once again - Trach care - Supplemental O2 PRN - Bronchodilators 2. Sepsis - source likely early pneumonia - Acute septic component resolved - S/P 5L NS - BC NDT 3. Bradycardia - Otherwise hemodynamically stable - Avoid further rate lowering agents - Monitor 4. Anoxic brain injury, seizure disorder - Continue home Keppra - S/P GJ tube exchange on 06/09 for feeding tube dysfunction and now J-tube clogged; s/p exchanged 06/14/18 - Continue Glucerna 1.5 at 50 cc/hr 5. DM - Bedside Accuchecks have been normal - SSI per protocol 6. Agitation - Ativan PRN 7. Hypokalemia - Resolved DVT prophylaxis: Continue home Apixaban Discharge Planning: Once clinically stable will d/c back to rehab (1) Sepsis Qualifiers: Sepsis type: sepsis due to unspecified organism Qualified Code(s): A41.9 - Sepsis, unspecified organism
--- NOTE | 2018-06-15 17:18 | P.PNID ---
Subjective Remarks: remains on Tpiece afebrile grew out MDRO PSAE and ESBL Kleb from trach secretions Neutropenia resolved Antibiotics: avicaz Allergies/Adverse Reactions: Allergies haloperidol Adverse Reaction (Severe, Verified 06/09/18 09:58) Seizures *MDRO Multi-Drug Resistant Organism Adverse Reaction (Unknown, Uncoded 06/09/18 09:58) Dry Mucus Membranes MRSA (sputum) - 04/25/16 & 05/23/16 MRSA PCR Screen POSITIVE - 04/25/2016 ESBL+E.Coli (blood-05/22/16) Objective Vital Signs 06/14/18 17:32 06/14/18 18:00 06/14/18 19:00 Temperature Pulse Rate 48 L 53 L 55 L Respiratory Rate 16 17 16 Blood Pressure 107/56 L 101/55 L Pulse Oximetry 100 100 99 06/14/18 19:01 06/14/18 20:00 06/14/18 20:48 Temperature 98.7 F Pulse Rate 49 L 47 L Respiratory Rate 17 23 Blood Pressure 112/72 119/75 Pulse Oximetry 90 L 100 100 06/14/18 21:00 06/14/18 22:00 06/14/18 23:00 Temperature Pulse Rate 47 L 49 L 45 L Respiratory Rate 16 16 15 Blood Pressure 107/67 95/53 L 87/51 L Pulse Oximetry 95 100 100 06/14/18 23:38 06/14/18 23:51 06/15/18 00:00 Temperature 97.6 F Pulse Rate 41 L 51 L Respiratory Rate 19 17 Blood Pressure 98/54 L 134/67 Pulse Oximetry 98 100 100 06/15/18 00:01 06/15/18 01:00 06/15/18 02:00 Temperature Pulse Rate 53 L 51 L 59 L Respiratory Rate 19 17 41 H Blood Pressure 134/67 111/68 126/78 Pulse Oximetry 98 98 06/15/18 03:00 06/15/18 03:01 06/15/18 03:12 Temperature Pulse Rate 48 L 47 L Respiratory Rate 13 7 L Blood Pressure 97/54 L Pulse Oximetry 98 99 98 06/15/18 04:00 06/15/18 05:00 06/15/18 06:00 Temperature 98.4 F Pulse Rate 46 L 42 L 51 L Respiratory Rate 8 L 13 21 Blood Pressure 96/55 L 95/54 L Pulse Oximetry 99 99 91 L 06/15/18 06:16 06/15/18 07:00 06/15/18 07:01 Temperature Pulse Rate 47 L 46 L 46 L Respiratory Rate 17 17 20 Blood Pressure 106/61 102/54 L Pulse Oximetry 98 100 100 06/15/18 08:00 06/15/18 08:26 06/15/18 09:00 Temperature 98.4 F Pulse Rate 46 L 47 L Respiratory Rate 20 22 Blood Pressure 95/51 L 108/59 L Pulse Oximetry 100 100 100 06/15/18 10:00 06/15/18 11:00 06/15/18 12:00 Temperature 98.2 F Pulse Rate 48 L 42 L 50 L Respiratory Rate 21 21 24 Blood Pressure 103/62 100/58 L 99/63 L Pulse Oximetry 100 98 89 L 06/15/18 14:00 06/15/18 16:00 Temperature Pulse Rate 51 L 49 L Respiratory Rate Blood Pressure Pulse Oximetry Intake & Output 06/14/18 06/15/18 06/15/18 18:59 06:59 18:59 Intake Total 640 / 640 1247 / 1247 50 / 50 Output Total 1400 / 1400 500 / 500 Balance -760 / -760 747 / 747 50 / 50 Weight 77 kg Intake: IV 550 / 550 350 / 350 50 / 50 Avycaz Inj 2.5 GM In NS Inj 50 50 / 50 100 / 100 50 / 50 ML @ 25 mls/hr IV.SIG Q8H SHAYNA Rx#:[id number] Vancomycin Inj 1,000 MG In NS 500 / 500 250 / 250 Inj 250 ML @ 250 mls/hr IV.SIG Q8H SHAYNA Rx#:[id number] Tube Feeding 0 / 0 297 / 297 Water Bolus Amount 90 / 90 600 / 600 Output: Urine 1400 / 1400 500 / 500 Other: Date of Last Bowel Movement 06/12/18 06/12/18 # Bowel Movements 0 0 06/09/18 10:20 Blood - Peripheral Aerobic Blood Culture - Final No growth in 5 days 06/09/18 10:20 Blood - Peripheral Anaerobic Blood Culture - Final No growth in 5 days 06/09/18 10:15 Blood - Peripheral Aerobic Blood Culture - Final No growth in 5 days 06/09/18 10:15 Blood - Peripheral Anaerobic Blood Culture - Final No growth in 5 days Lab - Hematology Results 06/14/18 06/15/18 05:30 06:05 WBC 4.0 4.2 RBC 4.12 L 4.45 L Hgb 13.1 14.1 Hct 38.3 L 42.1 MCV 93.1 94.8 MCH 31.8 31.6 MCHC 34.2 33.4 RDW 13.5 13.8 Plt Count 173 191 MPV 10.2 10.4 Lab - Chemistry Results 06/13/18 06/14/18 06/14/18 20:38 05:30 08:08 Sodium 142 Potassium 3.6 Chloride 105 Carbon Dioxide 29.8 Anion Gap 7 BUN 5 L Creatinine 0.62 Estimated GFR Greater than 89 POC Glucose 89 86 Random Glucose 87 Calcium 8.7 06/14/18 06/15/18 06/15/18 20:37 06:05 08:43 Sodium 142 Potassium 4.1 Chloride 105 Carbon Dioxide 29.6 Anion Gap 7 BUN 7 Creatinine 0.73 Estimated GFR Greater than 89 POC Glucose 72 101 Random Glucose 77 Calcium 9.1 06/15/18 11:07 Sodium Potassium Chloride Carbon Dioxide Anion Gap BUN Creatinine Estimated GFR POC Glucose 103 Random Glucose Calcium Imaging: ITS Impressions Chest X-Ray 06/09/18 10:17 CONCLUSION: No acute focal pulmonary infiltrate or pulmonary vascular congestion. Tube Change 06/14/18 00:00 CONCLUSION: 1. Uncomplicated gastrojejunostomy tube exchange as above. Physical Exam: GENERAL: NAD SKIN: Warm and dry. HEAD: Atraumatic. Normocephalic. EYES: Pupils equal and round. No scleral icterus. No injection or drainage. ENT: No nasal bleeding or discharge. Mucous membranes pink and moist. large amount of clear saliva NECK: Trach in place CARDIOVASCULAR: Regular rate and rhythm. RESPIRATORY: No accessory muscle use. Clear to auscultation. Breath sounds equal bilaterally. GASTROINTESTINAL: Abdomen soft, non-tender, nondistended. Hepatic and splenic margins not palpable. PEG in place - [place] MUSCULOSKELETAL: Extremities without clubbing, cyanosis, or edema. No obvious deformities. NEUROLOGICAL: Awake and alert. Eyes opened. No eye contact NOt following commands. NOn verbal. 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 source Cannot exclude early broncho pneumonia Neutropenia; resolved dc terencecamary tomorrow (06/16) chk CXR in am
--- NOTE | 2018-06-15 18:36 | XR ---
EXAM DATE: 06/15/2018 6:32 PM EDT AGE/SEX: 33 years / Male INDICATIONS: Pneumonia. CLINICAL DATA: This is the patient's subsequent encounter. Patient reports that signs and symptoms h ave been present for 3 days and indicates a pain score of Nonresponsive. MEDICAL/SURGICAL HISTORY: . Hypertension. Gastroesophageal reflux disease. paralysis, contracte d. . tracheostomy, J tube. COMPARISON: C, CHEST 1V SINGLE AP, 06/09/2018. . FINDINGS: A single AP portable semierect view of the chest was obtained. The patient is tilted to the left. The tracheostomy tube remains in place. Hazy opacity is present in the perihilar regions and lung ASIS a nd this appears new from the prior study. The heart size appears mildly enlarged. There is no effusio n. The pneumothorax is intact. CONCLUSION: Hazy opacity is now noted in the perihilar regions and lung bases which could represent mild pulmonar y edema. Electronically signed by: Kartik Anderson MD 06/15/2018 6:35 PM EDT
[2018-06-16] MEDS: Ceftazidime/Avibactam Inj 2.5 GM in Sodium Chlor 0.9% Inj 50 ML IV.SIG SCH ×2 (02:00→11:04)
[2018-06-16] MEDS: Vancomycin Inj 1,000 MG in Sodium Chlor 0.9% Inj 250 ML IV.SIG SCH ×2 (03:40→16:09)
[2018-06-16] MEDS: Insulin NovoLOG Aspart Correctional Sugar Inj SQ SCH ×4 (07:56→22:26)
[2018-06-16] MEDS: Loratadine 10 MG Tablet G-TUBE SCH (08:00)
[2018-06-16] MEDS: Senna/Docusate Sodium 8.6/50 MG Tablet PO SCH ×2 (08:00→22:26)
[2018-06-16] MEDS: Famotidine 20 MG Tablet G-TUBE SCH ×2 (08:00→22:26)
--- NOTE | 2018-06-16 14:55 | P.PN ---
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/sepsis/ respiratory failure June 15, 2018-patient seen and examined, nonverbal, afebrile, on T-piece June 16, 2018-patient seen and examined, stable, nonverbal, mother by the bedside Physical Exam Vital signs: Vital Signs 06/15/18 15:00 06/15/18 16:00 06/15/18 17:00 Temperature Pulse Rate 49 L 53 L 51 L Respiratory Rate 24 26 H 26 H Blood Pressure 105/61 110/67 110/69 Pulse Oximetry 97 92 L 90 L 06/15/18 18:00 06/15/18 19:00 06/15/18 19:35 Temperature Pulse Rate 49 L 51 L Respiratory Rate 26 H 28 H Blood Pressure 110/67 116/72 Pulse Oximetry 97 62 L 98 06/15/18 20:00 06/15/18 21:00 06/15/18 22:00 Temperature 99.0 F Pulse Rate 53 L 49 L 55 L Respiratory Rate 23 20 33 H Blood Pressure 109/72 111/72 115/76 Pulse Oximetry 100 100 99 06/15/18 23:00 06/16/18 00:00 06/16/18 01:00 Temperature 99.6 F Pulse Rate 69 73 73 Respiratory Rate 41 H 26 H 24 Blood Pressure 123/75 108/58 L 122/71 Pulse Oximetry 96 96 98 06/16/18 02:00 06/16/18 02:01 06/16/18 03:00 Temperature Pulse Rate 76 76 107 H Respiratory Rate 26 H 24 29 H Blood Pressure 130/59 L 175/96 H Pulse Oximetry 100 100 99 06/16/18 03:39 06/16/18 04:00 06/16/18 05:00 Temperature 99.3 F Pulse Rate 85 130 H 89 Respiratory Rate 24 15 31 H Blood Pressure 115/58 L 128/81 133/74 Pulse Oximetry 99 99 100 06/16/18 06:00 06/16/18 07:00 06/16/18 08:00 Temperature 99.1 F Pulse Rate 139 H 80 69 Respiratory Rate 18 22 17 Blood Pressure 126/79 132/74 133/60 Pulse Oximetry 100 96 100 06/16/18 08:08 06/16/18 09:00 06/16/18 10:00 Temperature Pulse Rate 65 68 Respiratory Rate 19 32 H Blood Pressure 114/78 123/69 Pulse Oximetry 99 100 100 06/16/18 11:00 06/16/18 12:00 06/16/18 12:01 Temperature 99.0 F Pulse Rate 80 69 89 Respiratory Rate 37 H 35 H 29 H Blood Pressure 128/64 119/73 Pulse Oximetry 99 100 100 06/16/18 13:00 Temperature Pulse Rate 84 Respiratory Rate 27 H Blood Pressure 126/69 Pulse Oximetry 100 Intake & Output 06/15/18 06/16/18 06/16/18 18:59 06:59 18:59 Intake Total 656 / 656 1674 / 1674 Output Total 625 / 625 450 / 450 Balance 1224 / 1224 Weight 77.5 kg Intake: IV 50 / 50 600 / 600 Avycaz Inj 2.5 GM In NS Inj 50 50 / 50 100 / 100 ML @ 25 mls/hr IV.SIG Q8H SHAYNA Rx#:[id number] Vancomycin Inj 1,000 MG In NS 500 / 500 Inj 250 ML @ 250 mls/hr IV.SIG Q12H SHAYNA Rx#:[id number] Tube Feeding 506 / 506 474 / 474 Water Bolus Amount 100 / 100 600 / 600 Output: Urine 450 / 450 Urine Amount (Catheter) 625 / 625 Condom 625 / 625 Other: Date of Last Bowel Movement 06/12/18 06/12/18 06/16/18 # Bowel Movements 0 Narrative: GENERAL: nonverbal in NAD. Trach in place. SKIN: Skin is diaphoretic. HEART: RRR no m/r/g. LUNGS: Anterior lung sounds CTAB without wheezes or crackles. ABDOMEN: +BS, soft, NT, ND. GJ tube in place with no surrounding erythema or drainage. EXTREMITIES: No LE edema. NEURO: Anoxic brain injury. Eyes closed and patient remains nonverbal. Does not awaken or follow commands. B/L foot drop, decerebrate positioning. - Urinary Catheter Management Condom Cath placed during this visit: no Results - Labs CBC & Chem 7: 06/15/18 06:05 06/15/18 06:05 Laboratory Results - last 24 hr 06/15/18 06/15/18 06/16/18 18:53 20:40 07:55 POC Glucose 69 86 103 06/16/18 11:09 POC Glucose 98 - Imaging Impressions Chest X-Ray 06/15/18 00:00 CONCLUSION: Hazy opacity is now noted in the perihilar regions and lung bases which could represent mild pulmonary edema. 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 Acute on chronic respiratory failure with severe sepsis/pneumonia - On T-piece - Likely secondary to early pneumonia given hypoxia, thick tracheal secretions, and severe sepsis - Recently treated as an inpatient for HCAP 05/22-06/03 (MDRO Pseudomonas and ESBL E. coli) - Continue broad spectrum abx with vancomycin and s/p Avycaz - ID following, appreciate assistance - Sputum culture from trach growing MDRO Pseudo and ESBL E. coli once again - Trach care - Supplemental O2 PRN - Bronchodilators - Chest x-ray with finding of evidence of mild pulmonary edema, will give Lasix 20 IV 1 2. Sepsis - source likely early pneumonia - Acute septic component resolved - S/P 5L NS - BC NDT 3. Bradycardia - Otherwise hemodynamically stable - Avoid further rate lowering agents - Monitor 4. Anoxic brain injury, seizure disorder - Continue home Keppra - S/P GJ tube exchange on 06/09 for feeding tube dysfunction and now J-tube clogged; s/p exchanged 06/14/18 - Continue Glucerna 1.5 at 50 cc/hr 5. DM - Bedside Accuchecks have been normal - SSI per protocol 6. Agitation - Ativan PRN 7. Hypokalemia - Resolved DVT prophylaxis: Continue home Apixaban Discharge Planning: Once clinically stable will d/c back to rehab (1) Sepsis Qualifiers: Sepsis type: sepsis due to unspecified organism Qualified Code(s): A41.9 - Sepsis, unspecified organism
--- NOTE | 2018-06-16 17:35 | P.PNID ---
Subjective Remarks: remains on Tpiece afebrile grew out MDRO PSAE and ESBL Kleb from trach secretions Neutropenia resolved CXR with infiltrate Antibiotics: avicaz Allergies/Adverse Reactions: Allergies haloperidol Adverse Reaction (Severe, Verified 06/09/18 09:58) Seizures *MDRO Multi-Drug Resistant Organism Adverse Reaction (Unknown, Uncoded 06/09/18 09:58) Dry Mucus Membranes MRSA (sputum) - 04/25/16 & 05/23/16 MRSA PCR Screen POSITIVE - 04/25/2016 ESBL+E.Coli (blood-05/22/16) Objective Vital Signs 06/15/18 18:00 06/15/18 19:00 06/15/18 19:35 Temperature Pulse Rate 49 L 51 L Respiratory Rate 26 H 28 H Blood Pressure 110/67 116/72 Pulse Oximetry 97 62 L 98 06/15/18 20:00 06/15/18 21:00 06/15/18 22:00 Temperature 99.0 F Pulse Rate 53 L 49 L 55 L Respiratory Rate 23 20 33 H Blood Pressure 109/72 111/72 115/76 Pulse Oximetry 100 100 99 06/15/18 23:00 06/16/18 00:00 06/16/18 01:00 Temperature 99.6 F Pulse Rate 69 73 73 Respiratory Rate 41 H 26 H 24 Blood Pressure 123/75 108/58 L 122/71 Pulse Oximetry 96 96 98 06/16/18 02:00 06/16/18 02:01 06/16/18 03:00 Temperature Pulse Rate 76 76 107 H Respiratory Rate 26 H 24 29 H Blood Pressure 130/59 L 175/96 H Pulse Oximetry 100 100 99 06/16/18 03:39 06/16/18 04:00 06/16/18 05:00 Temperature 99.3 F Pulse Rate 85 130 H 89 Respiratory Rate 24 15 31 H Blood Pressure 115/58 L 128/81 133/74 Pulse Oximetry 99 99 100 06/16/18 06:00 06/16/18 07:00 06/16/18 08:00 Temperature 99.1 F Pulse Rate 139 H 80 69 Respiratory Rate 18 22 17 Blood Pressure 126/79 132/74 133/60 Pulse Oximetry 100 96 100 06/16/18 08:08 06/16/18 09:00 06/16/18 10:00 Temperature Pulse Rate 65 68 Respiratory Rate 19 32 H Blood Pressure 114/78 123/69 Pulse Oximetry 99 100 100 06/16/18 11:00 06/16/18 12:00 06/16/18 12:01 Temperature 99.0 F Pulse Rate 80 69 89 Respiratory Rate 37 H 35 H 29 H Blood Pressure 128/64 119/73 Pulse Oximetry 99 100 100 06/16/18 13:00 06/16/18 14:00 06/16/18 15:00 Temperature Pulse Rate 84 72 58 L Respiratory Rate 27 H 28 H 24 Blood Pressure 126/69 128/76 135/64 Pulse Oximetry 100 100 100 06/16/18 16:00 Temperature 99.4 F Pulse Rate 56 L Respiratory Rate 28 H Blood Pressure 133/60 Pulse Oximetry 100 Intake & Output 06/15/18 06/16/18 06/16/18 18:59 06:59 18:59 Intake Total 656 / 656 1674 / 1674 Output Total 625 / 625 450 / 450 Balance 1224 / 1224 Weight 77.5 kg Intake: IV 50 / 50 600 / 600 Avycaz Inj 2.5 GM In NS Inj 50 50 / 50 100 / 100 ML @ 25 mls/hr IV.SIG Q8H SHAYNA Rx#:[id number] Vancomycin Inj 1,000 MG In NS 500 / 500 Inj 250 ML @ 250 mls/hr IV.SIG Q12H SHAYNA Rx#:[id number] Tube Feeding 506 / 506 474 / 474 Water Bolus Amount 100 / 100 600 / 600 Output: Urine 450 / 450 Urine Amount (Catheter) 625 / 625 Condom 625 / 625 Other: Date of Last Bowel Movement 06/12/18 06/12/18 06/16/18 # Bowel Movements 0 06/09/18 10:20 Blood - Peripheral Aerobic Blood Culture - Final No growth in 5 days 06/09/18 10:20 Blood - Peripheral Anaerobic Blood Culture - Final No growth in 5 days 06/09/18 10:15 Blood - Peripheral Aerobic Blood Culture - Final No growth in 5 days 06/09/18 10:15 Blood - Peripheral Anaerobic Blood Culture - Final No growth in 5 days Lab - Hematology Results 06/15/18 06:05 WBC 4.2 RBC 4.45 L Hgb 14.1 Hct 42.1 MCV 94.8 MCH 31.6 MCHC 33.4 RDW 13.8 Plt Count 191 MPV 10.4 Lab - Chemistry Results 06/14/18 06/15/18 06/15/18 20:37 06:05 08:43 Sodium 142 Potassium 4.1 Chloride 105 Carbon Dioxide 29.6 Anion Gap 7 BUN 7 Creatinine 0.73 Estimated GFR Greater than 89 POC Glucose 72 101 Random Glucose 77 Calcium 9.1 06/15/18 06/15/18 06/15/18 11:07 18:53 20:40 Sodium Potassium Chloride Carbon Dioxide Anion Gap BUN Creatinine Estimated GFR POC Glucose 103 69 86 Random Glucose Calcium 06/16/18 06/16/18 07:55 11:09 Sodium Potassium Chloride Carbon Dioxide Anion Gap BUN Creatinine Estimated GFR POC Glucose 103 98 Random Glucose Calcium Imaging: ITS Impressions Tube Change 06/14/18 00:00 CONCLUSION: 1. Uncomplicated gastrojejunostomy tube exchange as above. Chest X-Ray 06/15/18 00:00 CONCLUSION: Hazy opacity is now noted in the perihilar regions and lung bases which could represent mild pulmonary edema. Physical Exam: GENERAL: NAD SKIN: Warm and dry. HEAD: Atraumatic. Normocephalic. EYES: Pupils equal and round. No scleral icterus. No injection or drainage. ENT: No nasal bleeding or discharge. Mucous membranes pink and moist. large amount of clear saliva NECK: Trach in place CARDIOVASCULAR: Regular rate and rhythm. RESPIRATORY: No accessory muscle use. Clear to auscultation. Breath sounds equal bilaterally. GASTROINTESTINAL: Abdomen soft, non-tender, nondistended. Hepatic and splenic margins not palpable. PEG in place - [place] MUSCULOSKELETAL: Extremities without clubbing, cyanosis, or edema. No obvious deformities. NEUROLOGICAL: Awake and alert. Eyes opened. No eye contact NOt following commands. NOn verbal. 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 source Probably broncho pneumonia Neutropenia; resolved dc abx fu off abx
[2018-06-16] MEDS: Morphine Inj 4 MG/ML Vial IV.PUSH PRN (23:53)
[2018-06-17] MEDS ORDERED: Pharmacy Ordered Lab Info OTHER ONE (03:45)
[2018-06-17 06:49] LABS: Glomerular Filtration Rate Greater Than 89 mL/min (>89)
[2018-06-17] MEDS: Insulin NovoLOG Aspart Correctional Sugar Inj SQ SCH ×4 (09:04→20:22)
[2018-06-17] MEDS: Famotidine 20 MG Tablet G-TUBE SCH ×2 (09:05→20:08)
[2018-06-17] MEDS: Loratadine 10 MG Tablet G-TUBE SCH (09:05)
[2018-06-17] MEDS: Senna/Docusate Sodium 8.6/50 MG Tablet PO SCH ×2 (09:06→20:20)
--- NOTE | 2018-06-17 11:51 | P.PN ---
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 Nonverbal. Physical Exam Vital signs: Vital Signs 06/16/18 12:00 06/16/18 12:01 06/16/18 13:00 Temperature 99.0 F Pulse Rate 69 89 84 Respiratory Rate 35 H 29 H 27 H Blood Pressure 119/73 126/69 Pulse Oximetry 100 100 100 06/16/18 14:00 06/16/18 15:00 06/16/18 16:00 Temperature 99.4 F Pulse Rate 72 58 L 56 L Respiratory Rate 28 H 24 28 H Blood Pressure 128/76 135/64 133/60 Pulse Oximetry 100 100 100 06/16/18 17:00 06/16/18 18:00 06/16/18 19:00 Temperature Pulse Rate 64 57 L 56 L Respiratory Rate 25 H 25 H 24 Blood Pressure 137/58 L 126/56 L 112/66 Pulse Oximetry 100 100 100 06/16/18 20:00 06/16/18 20:23 06/16/18 21:00 Temperature 99.2 F Pulse Rate 53 L 107 H Respiratory Rate 27 H 25 H Blood Pressure 111/62 114/73 Pulse Oximetry 100 100 75 L 06/16/18 22:00 06/16/18 23:00 06/17/18 00:00 Temperature 99.5 F Pulse Rate 50 L 102 H 64 Respiratory Rate 26 H 40 H 22 Blood Pressure 113/62 160/86 H 115/58 L Pulse Oximetry 100 100 98 06/17/18 00:06 06/17/18 01:00 06/17/18 02:00 Temperature Pulse Rate 50 L 52 L Respiratory Rate 17 17 Blood Pressure 98/56 L Pulse Oximetry 97 99 100 06/17/18 02:01 06/17/18 03:00 06/17/18 04:00 Temperature 98.8 F Pulse Rate 58 L 49 L 51 L Respiratory Rate 18 17 13 Blood Pressure 99/62 L 94/52 L Pulse Oximetry 100 97 99 06/17/18 04:01 06/17/18 04:30 06/17/18 05:00 Temperature Pulse Rate 47 L 46 L Respiratory Rate 16 17 Blood Pressure 93/55 L 97/66 L Pulse Oximetry 100 100 88 L 06/17/18 06:00 06/17/18 06:01 06/17/18 07:00 Temperature Pulse Rate 55 L 51 L 43 L Respiratory Rate 18 17 19 Blood Pressure 131/69 Pulse Oximetry 100 100 80 L 06/17/18 07:01 06/17/18 08:00 06/17/18 09:00 Temperature 98.9 F Pulse Rate 43 L 44 L 58 L Respiratory Rate 18 17 24 Blood Pressure 93/52 L 83/49 L Pulse Oximetry 99 63 L 100 06/17/18 09:01 06/17/18 10:00 06/17/18 10:10 Temperature Pulse Rate 66 52 L Respiratory Rate 18 14 Blood Pressure 89/58 L 82/52 L Pulse Oximetry 85 L 97 99 06/17/18 11:00 Temperature Pulse Rate 46 L Respiratory Rate 16 Blood Pressure 87/49 L Pulse Oximetry 100 Intake & Output 06/16/18 06/17/18 06/17/18 18:59 06:59 18:59 Intake Total 907 / 907 505 / 505 Output Total 925 / 925 Balance -18 / -18 505 / 505 Weight 78 kg Intake: IV 300 / 300 Avycaz Inj 2.5 GM In NS Inj 50 50 / 50 ML @ 25 mls/hr IV.SIG Q8H SHAYNA Rx#:[id number] Vancomycin Inj 1,000 MG In NS 250 / 250 Inj 250 ML @ 250 mls/hr IV.SIG Q12H SHAYNA Rx#:[id number] Tube Feeding 487 / 487 505 / 505 Water Bolus Amount 120 / 120 Output: Urine Amount (Catheter) 925 / 925 Condom 925 / 925 Other: # Voids 5 Date of Last Bowel Movement 06/16/18 06/16/18 06/16/18 # Bowel Movements 1 Narrative: GENERAL: nonverbal in NAD. Trach in place. SKIN: Skin is diaphoretic. HEART: RRR no m/r/g. LUNGS: Anterior lung sounds CTAB without wheezes or crackles. ABDOMEN: +BS, soft, NT, ND. GJ tube in place with no surrounding erythema or drainage. EXTREMITIES: No LE edema. NEURO: Anoxic brain injury. Eyes closed and patient remains nonverbal. Does not awaken or follow commands. B/L foot drop, decerebrate positioning. - Urinary Catheter Management Condom Cath placed during this visit: no Results - Labs CBC & Chem 7: 06/15/18 06:05 06/17/18 05:56 Laboratory Results - last 24 hr 06/16/18 06/16/18 06/17/18 17:49 21:13 00:02 Creatinine Estimated GFR POC Glucose 103 87 90 06/17/18 06/17/18 06/17/18 05:56 09:04 11:18 Creatinine 0.75 Estimated GFR Greater than 89 POC Glucose 87 97 Assessment and Plan - Assessment (1) Sepsis Code(s): A41.9 - Sepsis, unspecified organism Status: Acute (2) Hospital acquired PNA Code(s): J18.9 - Pneumonia, unspecified organism Status: Acute (3) Anoxic encephalopathy Code(s): G93.1 - Anoxic brain damage, not elsewhere classified Status: Chronic (4) 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 Acute on chronic respiratory failure with severe sepsis/pneumonia - On T-piece - Likely secondary to early pneumonia given hypoxia, thick tracheal secretions, and severe sepsis - Recently treated as an inpatient for HCAP 05/22-06/03 (MDRO Pseudomonas and ESBL E. coli) - s/p vancomycin and Avycaz. Patient is currently off antibiotics as of June 16, 2018 - ID following, appreciate assistance - Sputum culture from trach growing MDRO Pseudo and ESBL E. coli once again - Trach care - Supplemental O2 PRN - Bronchodilators 2. Sepsis - source likely early pneumonia - Acute septic component resolved - S/P 5L NS - BC NDT 3. Bradycardia - Otherwise hemodynamically stable - Avoid further rate lowering agents - Monitor 4. Anoxic brain injury, seizure disorder - Continue home Keppra - S/P GJ tube exchange on 06/09 for feeding tube dysfunction and now J-tube clogged; s/p exchanged 06/14/18 - Continue Glucerna 1.5 at 50 cc/hr 5. DM - Bedside Accuchecks have been normal - SSI per protocol 6. Agitation - Ativan PRN 7. Hypokalemia - Resolved DVT prophylaxis: Continue home Apixaban Discharge Planning: Once clinically stable will d/c back to rehab (1) Sepsis Qualifiers: Sepsis type: sepsis due to unspecified organism Qualified Code(s): A41.9 - Sepsis, unspecified organism
--- NOTE | 2018-06-17 15:18 | P.DIET ---
Nutritional Evaluation Type of nutrition evaluation: follow-up Nutrition consult regarding: Tube Feeding ([place] for TFing) Objective - Diagnosis Hypotension and tachycardia s/p GJ replacement - Objective % IBW: 87 (IBW 178#) Body Weight Used for Calculations: Actual (70 kg) Energy Needs - Lower Range (kCal/kg): 25 Energy Needs - Upper Range (kCal/kg): 30 Lower Limit kCal/kg (kCals): 1,750 Upper Limit kCal/kg (kCals): 2,100 Lower Limit Protein Factor (Grams per Kg): 1.0 Upper Limit Protein Factor (Grams per Kg): 1.5 Lower Protein Needs (Protein): 70 Upper Protein Needs (Protein): 105 Dietitian Reviewed in Medical Record: Curent medications, Intake & Output, Labs , Medical history, Tube feeding Diet Order: TF Objective Comments: PMH of anoxic brain injury Feeding - Current Tube Feeding Tube Feeding Product: Glucerna 1.5 Tube Feeding Method: Pump Tube Feeding Rate: 50 (mls/hr) Current kCals Provided by Tube Feedin,800 Current Protein Provided by Tube Feeding (gPRO): 99 Current Free H2O Provided (m/l): 911 Assessment Assessment: Pt. remains at high nutrition risk 2' to his dependence on TFing for nutrition. He is currently meeting needs with Glucerna 1.5 @ 50 mls/hr. Significant weight changes noted. CBW = 78 kg. LBM 06/16 Recommendations: Continue Glucerna 1.5 @ 50 mls/hr goal Dietitian to Monitor: Lab values, Glucose level, Intake & Output, Tube feeding tolerance, Weight change, Residuals, Wound/skin status, Medical course
--- NOTE | 2018-06-18 08:47 | P.PN ---
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 Nonverbal. June 18, 2018-patient seen and examined; no acute event overnight. NOnverbal Physical Exam Vital signs: Vital Signs 06/17/18 09:00 06/17/18 09:01 06/17/18 10:00 Temperature Pulse Rate 58 L 66 52 L Respiratory Rate 24 18 14 Blood Pressure 89/58 L 82/52 L Pulse Oximetry 100 85 L 97 06/17/18 10:10 06/17/18 11:00 06/17/18 11:41 Temperature Pulse Rate 46 L 51 L Respiratory Rate 16 18 Blood Pressure 87/49 L 89/53 L Pulse Oximetry 99 100 100 06/17/18 12:00 06/17/18 13:00 06/17/18 14:00 Temperature 99.6 F Pulse Rate 53 L 44 L 58 L Respiratory Rate 17 16 20 Blood Pressure 90/53 L 97/56 L Pulse Oximetry 100 100 86 L 06/17/18 14:01 06/17/18 15:00 06/17/18 15:01 Temperature Pulse Rate 47 L 62 79 Respiratory Rate 16 19 22 Blood Pressure 111/61 98/54 L Pulse Oximetry 100 93 L 95 06/17/18 16:00 06/17/18 17:00 06/17/18 18:00 Temperature 99.3 F Pulse Rate 52 L 54 L 51 L Respiratory Rate 17 15 18 Blood Pressure 104/59 L 88/54 L Pulse Oximetry 100 100 99 06/17/18 18:01 06/17/18 19:00 06/17/18 20:00 Temperature 98.8 F Pulse Rate 47 L 49 L 85 Respiratory Rate 20 8 L 24 Blood Pressure 86/53 L 90/55 L Pulse Oximetry 94 L 100 97 06/17/18 20:03 06/17/18 21:00 06/17/18 21:57 Temperature Pulse Rate 50 L 43 L Respiratory Rate 17 16 Blood Pressure 100/57 L 91/55 L Pulse Oximetry 100 100 100 06/17/18 22:00 06/17/18 23:00 06/17/18 23:01 Temperature Pulse Rate 44 L 40 L 40 L Respiratory Rate 13 12 15 Blood Pressure 84/49 L 88/51 L Pulse Oximetry 100 100 100 06/18/18 00:00 06/18/18 00:01 06/18/18 01:00 Temperature 98.4 F Pulse Rate 48 L 49 L 45 L Respiratory Rate 17 18 22 Blood Pressure 106/65 93/55 L Pulse Oximetry 100 06/18/18 02:00 06/18/18 04:00 06/18/18 06:00 Temperature Pulse Rate 45 L 48 L 45 L Respiratory Rate Blood Pressure Pulse Oximetry Intake & Output 06/17/18 06/18/18 06/18/18 18:59 06:59 18:59 Intake Total 708 / 708 641 / 641 Output Total 300 / 300 350 / 350 Balance 408 / 408 291 / 291 Weight 70.5 kg Intake: Tube Feeding 588 / 588 491 / 491 Tube Irrigant 120 / 120 Water Bolus Amount 150 / 150 Output: Urine Amount (Catheter) 300 / 300 350 / 350 Condom 300 / 300 350 / 350 Other: Date of Last Bowel Movement 06/16/18 06/16/18 # Bowel Movements 0 Narrative: GENERAL: nonverbal in NAD. Trach in place. SKIN: Skin is diaphoretic. HEART: RRR no m/r/g. LUNGS: Anterior lung sounds CTAB without wheezes or crackles. ABDOMEN: +BS, soft, NT, ND. GJ tube in place with no surrounding erythema or drainage. EXTREMITIES: No LE edema. NEURO: Anoxic brain injury. Eyes closed and patient remains nonverbal. Does not awaken or follow commands. B/L foot drop, decerebrate positioning. 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 Acute on chronic respiratory failure with severe sepsis/pneumonia - On T-piece - Likely secondary to early pneumonia given hypoxia, thick tracheal secretions, and severe sepsis - Recently treated as an inpatient for HCAP 05/22-06/03 (MDRO Pseudomonas and ESBL E. coli) - s/p vancomycin and Avycaz. Patient is currently off antibiotics as of June 16, 2018 - ID following, appreciate assistance - Sputum culture from trach growing MDRO Pseudo and ESBL E. coli once again - Trach care - Supplemental O2 PRN - Bronchodilators 2. Sepsis - source likely early pneumonia - Acute septic component resolved - S/P 5L NS - BC NDT 3. Bradycardia - Otherwise hemodynamically stable - Monitor 4. Anoxic brain injury, seizure disorder - Continue home Keppra - S/P GJ tube exchange on 06/09 for feeding tube dysfunction and now J-tube clogged; s/p exchanged 06/14/18 - Continue Glucerna 1.5 at 50 cc/hr 5. DM - Bedside Accuchecks have been normal - SSI per protocol 6. Agitation - Ativan PRN 7. Hypokalemia - Resolved DVT prophylaxis: Continue home Apixaban Discharge Planning: Once clinically stable will d/c back to rehab (1) Sepsis Qualifiers: Sepsis type: sepsis due to unspecified organism Qualified Code(s): A41.9 - Sepsis, unspecified organism
[2018-06-18] MEDS: Insulin NovoLOG Aspart Correctional Sugar Inj SQ SCH ×4 (09:48→20:13)
[2018-06-18] MEDS: Famotidine 20 MG Tablet G-TUBE SCH ×2 (09:50→20:11)
[2018-06-18] MEDS: Loratadine 10 MG Tablet G-TUBE SCH (09:50)
[2018-06-18] MEDS: Senna/Docusate Sodium 8.6/50 MG Tablet PO SCH ×2 (09:50→20:11)
--- NOTE | 2018-06-18 14:52 | P.PNID ---
Subjective Remarks: remains on Tpiece afebrile CXR with infiltrate Antibiotics: none Allergies/Adverse Reactions: Allergies haloperidol Adverse Reaction (Severe, Verified 06/09/18 09:58) Seizures *MDRO Multi-Drug Resistant Organism Adverse Reaction (Unknown, Uncoded 06/09/18 09:58) Dry Mucus Membranes MRSA (sputum) - 04/25/16 & 05/23/16 MRSA PCR Screen POSITIVE - 04/25/2016 ESBL+E.Coli (blood-05/22/16) Objective Vital Signs 06/17/18 15:00 06/17/18 15:01 06/17/18 16:00 Temperature 99.3 F Pulse Rate 62 79 52 L Respiratory Rate 19 22 17 Blood Pressure 98/54 L 104/59 L Pulse Oximetry 93 L 95 100 06/17/18 17:00 06/17/18 18:00 06/17/18 18:01 Temperature Pulse Rate 54 L 51 L 47 L Respiratory Rate 15 18 20 Blood Pressure 88/54 L 86/53 L Pulse Oximetry 100 99 94 L 06/17/18 19:00 06/17/18 20:00 06/17/18 20:03 Temperature 98.8 F Pulse Rate 49 L 85 50 L Respiratory Rate 8 L 24 17 Blood Pressure 90/55 L 100/57 L Pulse Oximetry 100 97 100 06/17/18 21:00 06/17/18 21:57 06/17/18 22:00 Temperature Pulse Rate 43 L 44 L Respiratory Rate 16 13 Blood Pressure 91/55 L 84/49 L Pulse Oximetry 100 100 100 06/17/18 23:00 06/17/18 23:01 06/18/18 00:00 Temperature Pulse Rate 40 L 40 L 48 L Respiratory Rate 12 15 17 Blood Pressure 88/51 L Pulse Oximetry 100 100 06/18/18 00:01 06/18/18 01:00 06/18/18 02:00 Temperature 98.4 F Pulse Rate 49 L 45 L 45 L Respiratory Rate 18 22 Blood Pressure 106/65 93/55 L Pulse Oximetry 100 06/18/18 04:00 06/18/18 06:00 06/18/18 08:00 Temperature 98.9 F Pulse Rate 48 L 45 L 63 Respiratory Rate 18 Blood Pressure 107/59 L Pulse Oximetry 96 06/18/18 10:00 06/18/18 12:00 Temperature Pulse Rate 51 L 54 L Respiratory Rate Blood Pressure Pulse Oximetry Intake & Output 06/17/18 06/18/18 06/18/18 18:59 06:59 18:59 Intake Total 708 / 708 641 / 641 Output Total 300 / 300 350 / 350 Balance 408 / 408 291 / 291 Weight 70.5 kg Intake: Tube Feeding 588 / 588 491 / 491 Tube Irrigant 120 / 120 Water Bolus Amount 150 / 150 Output: Urine Amount (Catheter) 300 / 300 350 / 350 Condom 300 / 300 350 / 350 Other: Date of Last Bowel Movement 06/16/18 06/16/18 06/16/18 # Bowel Movements 0 Lab - Chemistry Results 06/16/18 06/16/18 06/17/18 17:49 21:13 00:02 Creatinine Estimated GFR POC Glucose 103 87 90 06/17/18 06/17/18 06/17/18 05:56 09:04 11:18 Creatinine 0.75 Estimated GFR Greater than 89 POC Glucose 87 97 06/17/18 06/17/18 06/18/18 17:06 20:22 09:31 Creatinine Estimated GFR POC Glucose 96 87 95 06/18/18 12:26 Creatinine Estimated GFR POC Glucose 102 Imaging: ITS Impressions Tube Change 06/14/18 00:00 CONCLUSION: 1. Uncomplicated gastrojejunostomy tube exchange as above. Chest X-Ray 06/15/18 00:00 CONCLUSION: Hazy opacity is now noted in the perihilar regions and lung bases which could represent mild pulmonary edema. Physical Exam: GENERAL: NAD SKIN: Warm and dry. HEAD: Atraumatic. Normocephalic. EYES: Pupils equal and round. No scleral icterus. No injection or drainage. ENT: No nasal bleeding or discharge. Mucous membranes pink and moist. large amount of clear saliva NECK: Trach in place CARDIOVASCULAR: Regular rate and rhythm. RESPIRATORY: No accessory muscle use. Clear to auscultation. Breath sounds equal bilaterally. GASTROINTESTINAL: Abdomen soft, non-tender, nondistended. Hepatic and splenic margins not palpable. PEG in place - OK MUSCULOSKELETAL: Extremities without clubbing, cyanosis, or edema. No obvious deformities. NEUROLOGICAL: Awake and alert. Eyes opened. No eye contact NOt following commands. NOn verbal. Posturing Essentially @ baseline PSYCHIATRIC: unable to assess Assessment and Plan - Plan Anoxic bran injury with persistent vegetative sdtate Sepsis: clinically resolves ? source Probably broncho pneumonia Neutropenia; resolved will sign off Please reconsultn if new ID issues
[2018-06-19 06:40] LABS: Glomerular Filtration Rate Greater Than 89 mL/min (>89)
[2018-06-19] MEDS: Famotidine 20 MG Tablet G-TUBE SCH ×2 (09:30→20:59)
[2018-06-19] MEDS: Senna/Docusate Sodium 8.6/50 MG Tablet PO SCH (09:30)
[2018-06-19] MEDS: Loratadine 10 MG Tablet G-TUBE SCH (09:31)
[2018-06-19] MEDS: Insulin NovoLOG Aspart Correctional Sugar Inj SQ SCH ×4 (09:31→21:04)
--- NOTE | 2018-06-19 12:26 | P.PN ---
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 Nonverbal. June 18, 2018-patient seen and examined; no acute event overnight. NOnverbal June 19, 2018-patient seen and examined, afebrile, nonverbal, Physical Exam Vital signs: Vital Signs 06/18/18 13:00 06/18/18 13:01 06/18/18 14:00 Temperature Pulse Rate 58 L 52 L 49 L Respiratory Rate 22 23 23 Blood Pressure 105/53 L 105/54 L Pulse Oximetry 100 100 100 06/18/18 15:00 06/18/18 16:00 06/18/18 17:00 Temperature 98.5 F Pulse Rate 48 L 49 L 56 L Respiratory Rate 23 2 L 18 Blood Pressure 101/54 L 99/58 L 93/63 L Pulse Oximetry 100 99 100 06/18/18 18:00 06/18/18 19:00 06/18/18 20:00 Temperature 98.3 F Pulse Rate 51 L 62 51 L Respiratory Rate 16 22 9 L Blood Pressure 98/59 L 114/61 97/55 L Pulse Oximetry 95 88 L 100 06/18/18 21:00 06/18/18 21:08 06/18/18 22:00 Temperature Pulse Rate 52 L 48 L Respiratory Rate 11 L 17 Blood Pressure 100/57 L 90/51 L Pulse Oximetry 100 100 100 06/18/18 23:00 06/19/18 00:00 06/19/18 00:01 Temperature 98.6 F Pulse Rate 54 L 50 L 50 L Respiratory Rate 21 17 24 Blood Pressure 93/55 L 108/61 Pulse Oximetry 99 97 99 06/19/18 01:00 06/19/18 02:00 06/19/18 02:01 Temperature Pulse Rate 48 L 62 58 L Respiratory Rate 24 20 19 Blood Pressure 96/53 L 114/61 Pulse Oximetry 99 98 99 06/19/18 03:00 06/19/18 04:00 06/19/18 04:01 Temperature 99.6 F Pulse Rate 49 L 60 49 L Respiratory Rate 25 H 23 21 Blood Pressure 110/52 L 108/60 Pulse Oximetry 100 100 100 06/19/18 05:00 06/19/18 05:01 06/19/18 06:00 Temperature Pulse Rate 46 L 42 L 48 L Respiratory Rate 17 21 Blood Pressure 111/52 L Pulse Oximetry 95 100 06/19/18 07:00 06/19/18 08:00 06/19/18 10:00 Temperature 98.8 F Pulse Rate 48 L 44 L Respiratory Rate 19 Blood Pressure 113/58 L Pulse Oximetry 100 100 06/19/18 12:00 Temperature 98.7 F Pulse Rate 50 L Respiratory Rate 24 Blood Pressure 105/57 L Pulse Oximetry 100 Intake & Output 06/18/18 06/19/18 06/19/18 18:59 06:59 18:59 Intake Total 598 / 598 707 / 707 Output Total 275 / 275 350 / 350 Balance 323 / 323 357 / 357 Weight 68 kg Intake: Tube Feeding 538 / 538 557 / 557 Water Bolus Amount 60 / 60 150 / 150 Output: Urine 275 / 275 Urine Amount (Catheter) 350 / 350 Condom 350 / 350 Other: # Voids 1 Date of Last Bowel Movement 06/16/18 06/19/18 # Bowel Movements 0 1 - Urinary Catheter Management Condom Cath placed during this visit: no Results - Labs CBC & Chem 7: 06/15/18 06:05 06/19/18 04:27 Laboratory Results - last 24 hr 06/18/18 06/18/18 06/18/18 12:26 18:15 20:13 Creatinine Estimated GFR POC Glucose 102 94 99 06/19/18 06/19/18 04:27 07:45 Creatinine 0.67 Estimated GFR Greater than 89 POC Glucose 85 Assessment and Plan - Assessment (1) Sepsis Code(s): A41.9 - Sepsis, unspecified organism Status: Acute (2) Hospital acquired PNA Code(s): J18.9 - Pneumonia, unspecified organism Status: Acute (3) Anoxic encephalopathy Code(s): G93.1 - Anoxic brain damage, not elsewhere classified Status: Chronic (4) 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 Acute on chronic respiratory failure with severe sepsis/pneumonia - On T-piece - Likely secondary to early pneumonia given hypoxia, thick tracheal secretions, and severe sepsis - Recently treated as an inpatient for HCAP 05/22-06/03 (MDRO Pseudomonas and ESBL E. coli) - s/p vancomycin and Avycaz. Patient is currently off antibiotics as of June 16, 2018 - ID following, appreciate assistance - Sputum culture from trach growing MDRO Pseudo and ESBL E. coli once again - Trach care - Supplemental O2 PRN - Bronchodilators 2. Sepsis - source likely early pneumonia - Acute septic component resolved - S/P 5L NS - BC NDT 3. Bradycardia - Otherwise hemodynamically stable - Monitor 4. Anoxic brain injury, seizure disorder - Continue home Keppra - S/P GJ tube exchange on 06/09 for feeding tube dysfunction and now J-tube clogged; s/p exchanged 06/14/18 - Continue Glucerna 1.5 at 50 cc/hr 5. DM - Bedside Accuchecks have been normal - SSI per protocol 6. Agitation - Ativan PRN 7. Hypokalemia - Resolved DVT prophylaxis: Continue home Apixaban Discharge Planning: Once clinically stable will d/c back to rehab Continue current care as of June 19, 2018 (1) Sepsis Qualifiers: Sepsis type: sepsis due to unspecified organism Qualified Code(s): A41.9 - Sepsis, unspecified organism
[2018-06-20] MEDS: Senna/Docusate Sodium 8.6/50 MG Tablet PO SCH ×3 (00:59→21:30)
[2018-06-20] MEDS: Famotidine 20 MG Tablet G-TUBE SCH ×2 (09:15→21:30)
[2018-06-20] MEDS: Insulin NovoLOG Aspart Correctional Sugar Inj SQ SCH ×4 (09:16→21:32)
[2018-06-20] MEDS: Loratadine 10 MG Tablet G-TUBE SCH (09:16)
--- NOTE | 2018-06-20 11:46 | P.PN ---
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 Nonverbal. June 18, 2018-patient seen and examined; no acute event overnight. NOnverbal June 19, 2018-patient seen and examined, afebrile, nonverbal, June 20, 2018-patient seen and examined no change, nonverbal, afebrile, no acute event overnight. Physical Exam Vital signs: Vital Signs 06/19/18 12:00 06/19/18 13:00 06/19/18 14:00 Temperature 98.7 F Pulse Rate 50 L 45 L 51 L Respiratory Rate 24 23 18 Blood Pressure 105/57 L 105/57 L 88/53 L Pulse Oximetry 100 93 L 98 06/19/18 15:00 06/19/18 16:00 06/19/18 17:00 Temperature 98.4 F Pulse Rate 47 L 49 L 47 L Respiratory Rate 24 23 22 Blood Pressure 98/51 L 98/52 L 92/55 L Pulse Oximetry 99 99 98 06/19/18 18:00 06/19/18 18:06 06/19/18 19:00 Temperature Pulse Rate 65 53 L 153 H Respiratory Rate 26 H 26 H 39 H Blood Pressure 117/63 Pulse Oximetry 96 100 98 06/19/18 19:01 06/19/18 20:00 06/19/18 20:58 Temperature 99.5 F Pulse Rate 97 H 52 L Respiratory Rate 28 H 21 Blood Pressure 117/67 112/55 L Pulse Oximetry 91 L 100 100 06/19/18 21:00 06/19/18 22:00 06/19/18 23:00 Temperature Pulse Rate 48 L 45 L 46 L Respiratory Rate 20 23 17 Blood Pressure 100/56 L 103/61 102/55 L Pulse Oximetry 98 99 99 06/20/18 00:00 06/20/18 01:00 06/20/18 02:00 Temperature Pulse Rate 45 L 43 L 54 L Respiratory Rate 23 18 21 Blood Pressure 107/60 95/50 L 96/54 L Pulse Oximetry 97 99 98 06/20/18 03:00 06/20/18 04:00 06/20/18 05:00 Temperature 98.9 F Pulse Rate 51 L 45 L 43 L Respiratory Rate 19 23 10 L Blood Pressure 97/53 L 92/48 L Pulse Oximetry 99 99 06/20/18 05:01 06/20/18 06:00 06/20/18 08:00 Temperature Pulse Rate 53 L 44 L 41 L Respiratory Rate 19 21 Blood Pressure 94/52 L 93/54 L Pulse Oximetry 100 06/20/18 11:28 Temperature Pulse Rate Respiratory Rate Blood Pressure Pulse Oximetry 100 Intake & Output 06/19/18 06/20/18 06/20/18 18:59 06:59 18:59 Intake Total 641 / 641 653 / 653 Output Total 300 / 300 425 / 425 Balance 341 / 341 228 / 228 Weight 70 kg Intake: Tube Feeding 541 / 541 503 / 503 Water Bolus Amount 100 / 100 150 / 150 Output: Urine Amount (Catheter) 300 / 300 425 / 425 Condom 300 / 300 425 / 425 Other: Date of Last Bowel Movement 06/19/18 06/19/18 06/19/18 # Bowel Movements 2 1 Narrative: GENERAL: nonverbal in NAD. Trach in place. SKIN: Skin is diaphoretic. HEART: RRR no m/r/g. LUNGS: Anterior lung sounds CTAB without wheezes or crackles. ABDOMEN: +BS, soft, NT, ND. GJ tube in place with no surrounding erythema or drainage. EXTREMITIES: No LE edema. NEURO: Anoxic brain injury. Eyes closed and patient remains nonverbal. Does not awaken or follow commands. B/L foot drop, decerebrate positioning. 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 Acute on chronic respiratory failure with severe sepsis/pneumonia - On T-piece - Likely secondary to early pneumonia given hypoxia, thick tracheal secretions, and severe sepsis - Recently treated as an inpatient for HCAP 05/22-06/03 (MDRO Pseudomonas and ESBL E. coli) - s/p vancomycin and Avycaz. Patient is currently off antibiotics as of June 16, 2018 - ID following, appreciate assistance - Sputum culture from trach growing MDRO Pseudo and ESBL E. coli once again - Trach care - Supplemental O2 PRN - Bronchodilators 2. Sepsis - source likely early pneumonia - Acute septic component resolved - S/P 5L NS - BC NDT 3. Bradycardia - Otherwise hemodynamically stable - Monitor 4. Anoxic brain injury, seizure disorder - Continue home Keppra - S/P GJ tube exchange on 06/09 for feeding tube dysfunction and now J-tube clogged; s/p exchanged 06/14/18 - Continue Glucerna 1.5 at 50 cc/hr 5. DM - Bedside Accuchecks have been normal - SSI per protocol 6. Agitation - Ativan PRN 7. Hypokalemia - Resolved DVT prophylaxis: Continue home Apixaban Discharge Planning: Once clinically stable will d/c back to rehab Continue current care as of June 20, 2018 (1) Sepsis Qualifiers: Sepsis type: sepsis due to unspecified organism Qualified Code(s): A41.9 - Sepsis, unspecified organism
--- NOTE | 2018-06-20 17:23 | XR ---
EXAM DATE: 06/20/2018 5:19 PM EDT AGE/SEX: 33 years / Male INDICATIONS: Arrhythmia. CLINICAL DATA: This is the patient's subsequent encounter. Patient reports that signs and symptoms h ave been present for 1 week and indicates a pain score of Nonresponsive. MEDICAL/SURGICAL HISTORY: Hypertension. Gastroesophageal reflux disease. Paralysis. . Trache ostomy. J tube. COMPARISON: C, CHEST 1V SINGLE AP, 06/15/2018. . FINDINGS: Stable tracheostomy. No significant new focal pleural or parenchymal opacities. Cardiomediastinal con tours are within normal limits. Bony thorax is intact. CONCLUSION: 1. Stable tracheostomy. 2. No acute cardiopulmonary disease. Electronically signed by: Benigno Pimentel MD 06/20/2018 5:21 PM EDT
[2018-06-21 05:13] LABS: Glomerular Filtration Rate Greater Than 89 mL/min (>89)
--- NOTE | 2018-06-21 07:48 | P.CONCA ---
<Jos Faust - Last Filed: 06/21/18 08:05> History of Present Illness Primary Care Provider: UNKNOWN [facility] - Medical History Medical History: Medical History (Last Reviewed 06/11/18 @ 01:50 by Nannette Josue MD) Anoxic brain damage DVT (deep venous thrombosis) Diabetes mellitus Dyslipidemia GERD (gastroesophageal reflux disease) HTN (hypertension) Pancreatitis Seizure Tracheostomy dependent - Surgical History Surgical History: Surgical History (Last Reviewed 06/11/18 @ 01:50 by Nannette Josue MD) PEG (percutaneous endoscopic gastrostomy) status Medications and Allergies Allergies Allergy/AdvReac Type Severity Reaction Status Date / Time haloperidol AdvReac Severe Seizures Verified 06/09/18 09:58 *MDRO Multi-Drug Resistant AdvReac Unknown Dry Mucus Uncoded 06/09/18 09:58 Organism Membranes Home Medications Medication Instructions Recorded Confirmed Type apixaban [Eliquis] 5 mg FEEDING TUBE BID 05/22/18 06/09/18 History baclofen 20 mg PO Q8H 05/22/18 06/09/18 History famotidine 20 mg FEEDING TUBE BID 05/22/18 06/09/18 History glycopyrrolate 1 mg FEEDING TUBE Q8H PRN 05/22/18 06/09/18 History hyoscyamine sulfate [Levsin] 0.25 mg FEEDING TUBE Q4H PRN 05/22/18 06/09/18 History ipratropium-albuterol 3 ml INHALATION Q4H 05/22/18 06/09/18 History levetiracetam 1,000 mg FEEDING TUBE Q12H 05/22/18 06/09/18 History loratadine [Claritin] 10 mg FEEDING TUBE DAILY 05/22/18 06/09/18 History lorazepam 1 mg/kg IM Q6HR PRN 05/22/18 06/09/18 History lorazepam [Ativan] 0.5 mg FEEDING TUBE Q4HR PRN 05/22/18 06/09/18 History metoprolol tartrate 25 mg FEEDING TUBE Q8H PRN 05/22/18 06/09/18 History multivitamin with minerals 5 ml FEEDING TUBE DAILY 05/22/18 06/09/18 History Active Medications: Active Medications Acetaminophen (Tylenol Liq) 650 mg G-TUBE Q4H PRN PRN Reason: temp > 100.4 Last Admin: 08/09/18 04:13 Dose: 650 mg Al Hydroxide/Mg Hydroxide (Milk Of Magnesia Liq) 30 ml PO Q12H PRN PRN Reason: Mild Constipation Albuterol (Ventolin Hfa Inh) 2 puff INH Q2H PRN PRN Reason: sob/wheezing Apixaban (Eliquis) 5 mg G-TUBE BID [facility] Last Admin: 06/20/18 21:30 Dose: 5 mg Baclofen (Lioresal) 20 mg PO Q8H [facility] Last Admin: 06/21/18 01:55 Dose: 20 mg Bisacodyl (Dulcolax Supp) 10 mg RECTAL DAILY PRN PRN Reason: SEVERE CONSITIPATION Dextrose (D50w Vial) 50 ml IV.PUSH UNSCH PRN PRN Reason: PER HYPOGLYCEMIA PROTOCOL Famotidine (Pepcid) 20 mg G-TUBE BID [facility] Last Admin: 06/20/18 21:30 Dose: 20 mg Glucagon (Glucagon Inj) 1 mg OTHER PRN PRN PRN Reason: for Hypoglycemia Protocol Glycopyrrolate (Robinul) 1 mg G-TUBE Q8H PRN PRN Reason: SECRETIONS Hyoscyamine (Levsin) 0.25 mg G-TUBE Q4H PRN PRN Reason: SECRETIONS Last Admin: 06/19/18 20:59 Dose: 0.25 mg Insulin Aspart (Novolog Insulin Correctional Sugar Inj) 0 unit SQ ACHS [facility]; Protocol Last Admin: 06/20/18 21:32 Dose: Not Given Lactulose (Lactulose Liq) 30 ml PO DAILY PRN PRN Reason: SEVERE CONSITIPATION Last Admin: 06/15/18 23:12 Dose: 30 ml Levetiracetam (Keppra Liq) 1,000 mg NG/OG Q12H [facility] Last Admin: 06/21/18 06:01 Dose: 1,000 mg Loratadine (Claritin) 10 mg G-TUBE DAILY [facility] Last Admin: 06/20/18 09:16 Dose: 10 mg Lorazepam (Ativan Inj) 1 mg IV.PUSH Q4H PRN PRN Reason: agitation Last Admin: 06/12/18 21:53 Dose: 1 mg Metoprolol Tartrate (Lopressor Inj) 5 mg IV.PUSH Q5M PRN PRN Reason: HR>100 Morphine Sulfate (Morphine Inj) 4 mg IV.PUSH Q4H PRN PRN Reason: pain 6-10/agitation Last Admin: 06/16/18 23:53 Dose: 4 mg Multivitamins (Theragran) 1 tab NG/OG DAILY [facility] Last Admin: 06/20/18 09:16 Dose: 1 tab Senna/Docusate Sodium (Shala-Colace) 1 tab PO BID [facility] Last Admin: 06/20/18 21:30 Dose: 1 tab Sennosides (Senokot) 17.2 mg PO Q12H PRN PRN Reason: Moderate Constipation Exam Vital signs: Vital Signs 06/20/18 09:01 06/20/18 10:00 06/20/18 10:01 Temperature Pulse Rate 58 L 41 L 52 L Respiratory Rate 22 21 Blood Pressure 126/58 L 105/50 L Pulse Oximetry 100 97 06/20/18 11:01 06/20/18 11:28 06/20/18 12:00 Temperature Pulse Rate 50 L 49 L Respiratory Rate 23 21 Blood Pressure 102/54 L 97/56 L Pulse Oximetry 77 L 100 100 06/20/18 13:01 06/20/18 14:00 06/20/18 14:01 Temperature Pulse Rate 52 L 49 L 49 L Respiratory Rate 24 25 H Blood Pressure 92/50 L 94/50 L Pulse Oximetry 100 99 06/20/18 15:00 06/20/18 16:00 06/20/18 17:00 Temperature Pulse Rate 51 L 52 L 50 L Respiratory Rate 25 H 26 H 26 H Blood Pressure 89/54 L 97/60 L 109/64 Pulse Oximetry 99 97 100 06/20/18 18:00 06/20/18 20:00 06/20/18 21:58 Temperature 98 F Pulse Rate 50 L 52 L Respiratory Rate 25 H 18 Blood Pressure 107/59 L 105/61 Pulse Oximetry 100 100 99 06/20/18 22:00 06/21/18 00:00 06/21/18 02:00 Temperature 98.3 F Pulse Rate 53 L 48 L 51 L Respiratory Rate 22 Blood Pressure 116/69 Pulse Oximetry 100 06/21/18 04:00 06/21/18 05:15 06/21/18 06:00 Temperature 98.3 F Pulse Rate 50 L 56 L Respiratory Rate 22 Blood Pressure 108/73 Pulse Oximetry 100 100 Intake & Output 06/20/18 06/21/18 06/21/18 18:59 06:59 18:59 Intake Total 620 / 620 Output Total 450 / 450 Balance 170 / 170 Weight 69 kg Intake: Tube Feeding 520 / 520 Water Bolus Amount 100 / 100 Output: Urine Amount (Catheter) 450 / 450 Condom 450 / 450 Other: Date of Last Bowel Movement 06/19/18 06/20/18 Results 06/15/18 06:05 06/21/18 04:30 Comprehensive Metabolic Panel 06/21/18 Range/Units 04:30 Creatinine 0.77 (0.60-1.30) mg/dL Intake and Output 06/20/18 06/21/18 06/21/18 22:59 06:59 14:59 Intake Total 620 / 620 Output Total 450 / 450 Balance 170 / 170 Intake: Tube Feeding 520 / 520 Water Bolus Amount 100 / 100 Output: Urine Amount (Catheter) 450 / 450 Condom 450 / 450 Other: Date of Last Bowel Movement 06/20/18 06/20/18 Weight 69 kg Assessment and Plan - Plan Patient seen and examined. Agree with above. Here with PNA and GJ-tube exchange. Consulted for JOY seen on ECG. This appears unchanged from ECG 01/01/18 and likely represents early repolarization. He has had sinus bradycardia on telemetry. No apparent acute cardiac issues. will sign off. call with any further questions. <Preston Casillas - Last Filed: 06/21/18 08:50> History of Present Illness Primary Care Provider: UNKNOWN Chief Complaint: Hypotension History of Present Illness: 33-year-old male with past medical history of anoxic brain injury, seizure disorder, status post tracheostomy and PEG placement, DM, chronic anticoagulation, aspiration pneumonia. Patient was admitted for sepsis, likely due to recurrent aspiration pneumonia with sputum culture growing Pseudomonas and ESBL E. coli. EKG on admission shows sinus tachycardia. Patient is unable to provide any history, history obtained from the medical record. The patient had 12-lead EKG done yesterday unclear why possibly due to ST changes seen on telemetry. EKG shows early repolarization in the anterior leads and inferior T wave inversions; unchanged from previous EKG earlier this year in December. Echocardiogram in December was unremarkable. Telemetry reviewed with no significant arrhythmias. Review of Systems unobtainable due to endotracheal tube PMFSH - History History Provided By: Medical Record - Medical History Medical History: Medical History (Last Reviewed 06/11/18 @ 01:50 by Nannette Josue MD) Anoxic brain damage DVT (deep venous thrombosis) Diabetes mellitus Dyslipidemia GERD (gastroesophageal reflux disease) HTN (hypertension) Pancreatitis Seizure Tracheostomy dependent - Surgical History Surgical History: Surgical History (Last Reviewed 06/11/18 @ 01:50 by Nannette Jsoue MD) PEG (percutaneous endoscopic gastrostomy) status - Tobacco History Second Hand Smoke Exposure: No Smoking Status: Never smoker - Alcohol History How Often Do You Have a Drink Containing Alcohol: Never - Substance Use History Substance History: No History of Abuse - Travel History Recent Travel in the [place] Within the Last 8 Weeks: No Recent Travel Out of the Country Within the Last 8 Weeks: No - Immunization History Tetanus Immunization: Unable to Assess Hx Influenza Vaccine This Season: Unable to Assess Medications and Allergies Active Medications: Active Medications Acetaminophen (Tylenol Liq) 650 mg G-TUBE Q4H PRN PRN Reason: temp > 100.4 Last Admin: 06/10/18 04:13 Dose: 650 mg Al Hydroxide/Mg Hydroxide (Milk Of Magnesia Liq) 30 ml PO Q12H PRN PRN Reason: Mild Constipation Albuterol (Ventolin Hfa Inh) 2 puff INH Q2H PRN PRN Reason: sob/wheezing Apixaban (Eliquis) 5 mg G-TUBE BID [facility] Last Admin: 06/20/18 21:30 Dose: 5 mg Baclofen (Lioresal) 20 mg PO Q8H [facility] Last Admin: 06/21/18 01:55 Dose: 20 mg Bisacodyl (Dulcolax Supp) 10 mg RECTAL DAILY PRN PRN Reason: SEVERE CONSITIPATION Dextrose (D50w Vial) 50 ml IV.PUSH UNSCH PRN PRN Reason: PER HYPOGLYCEMIA PROTOCOL Famotidine (Pepcid) 20 mg G-TUBE BID [facility] Last Admin: 06/20/18 21:30 Dose: 20 mg Glucagon (Glucagon Inj) 1 mg OTHER PRN PRN PRN Reason: for Hypoglycemia Protocol Glycopyrrolate (Robinul) 1 mg G-TUBE Q8H PRN PRN Reason: SECRETIONS Hyoscyamine (Levsin) 0.25 mg G-TUBE Q4H PRN PRN Reason: SECRETIONS Last Admin: 06/19/18 20:59 Dose: 0.25 mg Insulin Aspart (Novolog Insulin Correctional Sugar Inj) 0 unit SQ ACHS [facility]; Protocol Last Admin: 06/20/18 21:32 Dose: Not Given Lactulose (Lactulose Liq) 30 ml PO DAILY PRN PRN Reason: SEVERE CONSITIPATION Last Admin: 06/15/18 23:12 Dose: 30 ml Levetiracetam (Keppra Liq) 1,000 mg NG/OG Q12H [facility] Last Admin: 06/21/18 06:01 Dose: 1,000 mg Loratadine (Claritin) 10 mg G-TUBE DAILY [facility] Last Admin: 06/20/18 09:16 Dose: 10 mg Lorazepam (Ativan Inj) 1 mg IV.PUSH Q4H PRN PRN Reason: agitation Last Admin: 06/12/18 21:53 Dose: 1 mg Metoprolol Tartrate (Lopressor Inj) 5 mg IV.PUSH Q5M PRN PRN Reason: HR>100 Morphine Sulfate (Morphine Inj) 4 mg IV.PUSH Q4H PRN PRN Reason: pain 6-10/agitation Last Admin: 06/16/18 23:53 Dose: 4 mg Multivitamins (Theragran) 1 tab NG/OG DAILY [facility] Last Admin: 06/20/18 09:16 Dose: 1 tab Senna/Docusate Sodium (Shala-Colace) 1 tab PO BID [facility] Last Admin: 06/20/18 21:30 Dose: 1 tab Sennosides (Senokot) 17.2 mg PO Q12H PRN PRN Reason: Moderate Constipation Exam Vital signs: Vital Signs 06/20/18 08:00 06/20/18 08:01 06/20/18 09:01 Temperature Pulse Rate 41 L 50 L 58 L Respiratory Rate 20 22 Blood Pressure 101/53 L 126/58 L Pulse Oximetry 100 100 06/20/18 10:00 06/20/18 10:01 06/20/18 11:01 Temperature Pulse Rate 41 L 52 L 50 L Respiratory Rate 21 23 Blood Pressure 105/50 L 102/54 L Pulse Oximetry 97 77 L 06/20/18 11:28 06/20/18 12:00 06/20/18 13:01 Temperature Pulse Rate 49 L 52 L Respiratory Rate 21 24 Blood Pressure 97/56 L 92/50 L Pulse Oximetry 100 100 100 06/20/18 14:00 06/20/18 14:01 06/20/18 15:00 Temperature Pulse Rate 49 L 49 L 51 L Respiratory Rate 25 H 25 H Blood Pressure 94/50 L 89/54 L Pulse Oximetry 99 99 06/20/18 16:00 06/20/18 17:00 06/20/18 18:00 Temperature Pulse Rate 52 L 50 L 50 L Respiratory Rate 26 H 26 H 25 H Blood Pressure 97/60 L 109/64 107/59 L Pulse Oximetry 97 100 100 06/20/18 20:00 06/20/18 21:58 06/20/18 22:00 Temperature 98 F Pulse Rate 52 L 53 L Respiratory Rate 18 Blood Pressure 105/61 Pulse Oximetry 100 99 06/21/18 00:00 06/21/18 02:00 06/21/18 04:00 Temperature 98.3 F 98.3 F Pulse Rate 48 L 51 L 50 L Respiratory Rate 22 22 Blood Pressure 116/69 108/73 Pulse Oximetry 100 100 06/21/18 05:15 06/21/18 06:00 Temperature Pulse Rate 56 L Respiratory Rate Blood Pressure Pulse Oximetry 100 Intake & Output 06/20/18 06/21/18 06/21/18 18:59 06:59 18:59 Intake Total 620 / 620 Output Total 450 / 450 Balance 170 / 170 Weight 152 lb 1.903 oz Intake: Tube Feeding 520 / 520 Water Bolus Amount 100 / 100 Output: Urine Amount (Catheter) 450 / 450 Condom 450 / 450 Other: Date of Last Bowel Movement 06/19/18 06/20/18 Narrative: GENERAL: Chronically ill-appearing. Very diaphoretic, patient's baseline per RN. In no acute distress. NECK: No carotid bruits. No JVD. CARDIOVASCULAR: Regular rate and rhythm. No murmur appreciated. RESPIRATORY: Tracheostomy in place. Coarse breath sounds. MUSCULOSKELETAL: Extremity contractures. No edema. NEUROLOGICAL: Awake, but nonverbal and does not follow commands. Results 06/15/18 06:05 06/21/18 04:30 Comprehensive Metabolic Panel 06/21/18 Range/Units 04:30 Creatinine 0.77 (0.60-1.30) mg/dL Intake and Output 06/20/18 06/21/18 06/21/18 22:59 06:59 14:59 Intake Total 620 / 620 Output Total 450 / 450 Balance 170 / 170 Intake: Tube Feeding 520 / 520 Water Bolus Amount 100 / 100 Output: Urine Amount (Catheter) 450 / 450 Condom 450 / 450 Other: Date of Last Bowel Movement 06/20/18 06/20/18 Weight 152 lb 1.903 oz Assessment and Plan - Plan 33-year-old male with past medical history of anoxic brain injury, seizure disorder, status post tracheostomy and PEG placement, DM, chronic anticoagulation, aspiration pneumonia. Patient was admitted for sepsis, likely due to recurrent aspiration pneumonia with sputum culture growing Pseudomonas and ESBL E. coli. Patient is unable to provide any history, history obtained from the medical record. The patient had 12-lead EKG done yesterday unclear why possibly due to ST changes seen on telemetry. EKG appears to show diffuse ST changes. Telemetry reviewed with no significant arrhythmias. Abnormal EKG: EKG changes are chronic, unchanged. Nothing further to add from cardiology perspective at this time. Discussed Condition With: RN, Dr. Faust
[2018-06-21] MEDS: Loratadine 10 MG Tablet G-TUBE SCH (09:21)
[2018-06-21] MEDS: Senna/Docusate Sodium 8.6/50 MG Tablet PO SCH ×2 (09:21→20:33)
[2018-06-21] MEDS: Famotidine 20 MG Tablet G-TUBE SCH ×2 (09:21→20:33)
[2018-06-21] MEDS: Insulin NovoLOG Aspart Correctional Sugar Inj SQ SCH ×4 (09:22→20:34)
--- NOTE | 2018-06-21 11:52 | P.PN ---
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 Nonverbal. June 18, 2018-patient seen and examined; no acute event overnight. NOnverbal June 19, 2018-patient seen and examined, afebrile, nonverbal, June 20, 2018-patient seen and examined no change, nonverbal, afebrile, no acute event overnight. June 21, 2018-patient seen and examined, appears stable today, nonverbal. Cardiology was consulted for diffuse ST elevation and patient was seen today Physical Exam Vital signs: Vital Signs 06/20/18 12:00 06/20/18 13:01 06/20/18 14:00 Temperature Pulse Rate 49 L 52 L 49 L Respiratory Rate 21 24 Blood Pressure 97/56 L 92/50 L Pulse Oximetry 100 100 06/20/18 14:01 06/20/18 15:00 06/20/18 16:00 Temperature Pulse Rate 49 L 51 L 52 L Respiratory Rate 25 H 25 H 26 H Blood Pressure 94/50 L 89/54 L 97/60 L Pulse Oximetry 99 99 97 06/20/18 17:00 06/20/18 18:00 06/20/18 20:00 Temperature 98 F Pulse Rate 50 L 50 L 52 L Respiratory Rate 26 H 25 H 18 Blood Pressure 109/64 107/59 L 105/61 Pulse Oximetry 100 100 100 06/20/18 21:58 06/20/18 22:00 06/21/18 00:00 Temperature 98.3 F Pulse Rate 53 L 48 L Respiratory Rate 22 Blood Pressure 116/69 Pulse Oximetry 99 100 06/21/18 02:00 06/21/18 04:00 06/21/18 05:15 Temperature 98.3 F Pulse Rate 51 L 50 L Respiratory Rate 22 Blood Pressure 108/73 Pulse Oximetry 100 100 06/21/18 06:00 06/21/18 09:10 Temperature Pulse Rate 56 L Respiratory Rate Blood Pressure Pulse Oximetry 100 Intake & Output 06/20/18 06/21/18 06/21/18 18:59 06:59 18:59 Intake Total 620 / 620 Output Total 450 / 450 Balance 170 / 170 Weight 69 kg Intake: Tube Feeding 520 / 520 Water Bolus Amount 100 / 100 Output: Urine Amount (Catheter) 450 / 450 Condom 450 / 450 Other: Date of Last Bowel Movement 06/19/18 06/20/18 Narrative: GENERAL: nonverbal in NAD. Trach in place. SKIN: Skin is diaphoretic. HEART: RRR no m/r/g. LUNGS: Anterior lung sounds CTAB without wheezes or crackles. ABDOMEN: +BS, soft, NT, ND. GJ tube in place with no surrounding erythema or drainage. EXTREMITIES: No LE edema. NEURO: Anoxic brain injury. Eyes closed and patient remains nonverbal. Does not awaken or follow commands. B/L foot drop, decerebrate positioning. - Urinary Catheter Management Condom Cath placed during this visit: no Results - Labs CBC & Chem 7: 06/15/18 06:05 06/21/18 04:30 Laboratory Results - last 24 hr 06/20/18 06/20/18 06/21/18 16:51 21:18 04:30 Creatinine 0.77 Estimated GFR Greater than 89 POC Glucose 89 89 06/21/18 09:18 Creatinine Estimated GFR POC Glucose 112 H - Imaging Impressions Chest X-Ray 06/20/18 16:43 CONCLUSION: 1. Stable tracheostomy. 2. No acute cardiopulmonary disease. Assessment and Plan - Plan 33-year-old man with 1. Acute on chronic respiratory failure with severe sepsis/pneumonia - On T-piece - Likely secondary to early pneumonia given hypoxia, thick tracheal secretions, and severe sepsis - Recently treated as an inpatient for HCAP 05/22-06/03 (MDRO Pseudomonas and ESBL E. coli) - s/p vancomycin and Avycaz. Patient is currently off antibiotics as of June 16, 2018 - ID following, appreciate assistance - Sputum culture from trach growing MDRO Pseudo and ESBL E. coli once again - Trach care - Supplemental O2 PRN - Bronchodilators 2. Sepsis - source likely early pneumonia - Acute septic component resolved - S/P 5L NS - BC NDT 3. Bradycardia - Otherwise hemodynamically stable - Monitor 4. Anoxic brain injury, seizure disorder - Continue home Keppra - S/P GJ tube exchange on 06/09 for feeding tube dysfunction and now J-tube clogged; s/p exchanged 06/14/18 - Continue Glucerna 1.5 at 50 cc/hr 5. DM - Bedside Accuchecks have been normal - SSI per protocol 6. Agitation - Ativan PRN 7. Hypokalemia - Resolved 8. Diffuse ST elevation -Appreciate input from cardiology; no further treatment DVT prophylaxis: Continue home Apixaban Discharge Planning: Once clinically stable will d/c back to rehab Continue current care as of June 21, 2018
[2018-06-22] MEDS: Famotidine 20 MG Tablet G-TUBE SCH ×2 (09:47→21:19)
[2018-06-22] MEDS: Loratadine 10 MG Tablet G-TUBE SCH (09:48)
[2018-06-22] MEDS: Insulin NovoLOG Aspart Correctional Sugar Inj SQ SCH ×4 (09:48→21:00)
[2018-06-22] MEDS: Senna/Docusate Sodium 8.6/50 MG Tablet PO SCH ×2 (09:48→21:18)
--- NOTE | 2018-06-22 10:47 | P.PNIM ---
Subjective Interval history: in no acute distress. Tmax 99.8. trach in place. BP on low side earlier. Physical Exam Vital signs: Vital Signs 06/21/18 11:00 06/21/18 12:00 06/21/18 13:00 Temperature 99.4 F Pulse Rate 51 L 57 L 75 Respiratory Rate 25 H 21 24 Blood Pressure 108/69 116/73 133/81 Pulse Oximetry 90 L 96 100 06/21/18 14:00 06/21/18 15:00 06/21/18 16:00 Temperature 99.8 F H Pulse Rate 51 L 54 L 55 L Respiratory Rate 23 25 H 22 Blood Pressure 110/70 118/82 107/71 Pulse Oximetry 99 98 100 06/21/18 17:00 06/21/18 18:00 06/21/18 19:00 Temperature Pulse Rate 55 L 58 L 52 L Respiratory Rate 18 20 18 Blood Pressure 108/69 108/70 108/67 Pulse Oximetry 99 100 100 06/21/18 20:00 06/21/18 21:00 06/21/18 22:00 Temperature 99.4 F Pulse Rate 54 L 49 L 80 Respiratory Rate 21 18 26 H Blood Pressure 111/70 111/71 146/80 H Pulse Oximetry 100 100 100 06/21/18 22:02 06/21/18 23:00 06/22/18 00:00 Temperature Pulse Rate 77 51 L Respiratory Rate 23 19 Blood Pressure 150/90 H Pulse Oximetry 100 100 100 06/22/18 00:01 06/22/18 01:00 06/22/18 01:05 Temperature Pulse Rate 51 L 67 58 L Respiratory Rate 19 22 18 Blood Pressure 98/55 L 123/85 Pulse Oximetry 100 100 100 06/22/18 01:16 06/22/18 02:00 06/22/18 03:00 Temperature Pulse Rate 51 L 47 L Respiratory Rate 18 16 Blood Pressure 106/71 91/51 L Pulse Oximetry 99 98 99 06/22/18 04:00 06/22/18 06:00 06/22/18 07:00 Temperature Pulse Rate 46 L 46 L Respiratory Rate 18 Blood Pressure 88/52 L Pulse Oximetry 100 99 06/22/18 08:50 Temperature Pulse Rate Respiratory Rate Blood Pressure Pulse Oximetry 100 Intake & Output 06/21/18 06/22/18 06/22/18 18:59 06:59 18:59 Intake Total 665 / 665 560 / 560 Output Total 600 / 600 250 / 250 Balance 65 / 65 310 / 310 Weight 68 kg Intake: Tube Feeding 565 / 565 510 / 510 Tube Irrigant 50 / 50 Water Bolus Amount 100 / 100 Output: Urine Amount (Catheter) 600 / 600 250 / 250 Condom 600 / 600 250 / 250 Other: # Incontinent Voids 1 Date of Last Bowel Movement 06/21/18 06/21/18 - Constitutional no acute distress - Routine Respiratory Exam Present: CTA bilaterally - Routine Cardiovascular Exam Present: RRR - Routine Abdominal Exam Present: soft - Routine Extremities Exam Comments: no pedal edema. - Routine Neurological Exam non-communicative. - Urinary Catheter Management Condom Cath placed during this visit: no Results - Labs CBC & Chem 7: 06/15/18 06:05 06/21/18 04:30 Laboratory Results - last 24 hr 06/21/18 06/21/18 06/21/18 13:04 17:19 20:31 POC Glucose 90 96 106 Assessment and Plan - Plan 1. Acute on chronic respiratory failure with severe sepsis/pneumonia - On T-piece - Likely secondary to early pneumonia given hypoxia, thick tracheal secretions, and severe sepsis - Recently treated as an inpatient for HCAP 05/22-06/03 (MDRO Pseudomonas and ESBL E. coli) - s/p vancomycin and Avycaz. Patient is currently off antibiotics as of June 16, 2018 - evaluated by ID. - Sputum culture from trach growing MDRO Pseudo and ESBL E. coli once again - Trach care - Supplemental O2 PRN - Bronchodilators 2. Sepsis - source likely early pneumonia - Acute septic component resolved - S/P 5L NS - BC NDT 3. Bradycardia - Otherwise hemodynamically stable -cardiology evaluated. - Monitor 4. Anoxic brain injury, seizure disorder - Continue home Keppra - S/P GJ tube exchange on 06/09 for feeding tube dysfunction and now J-tube clogged; s/p exchanged 06/14/18 - Continue Glucerna 1.5 at 50 cc/hr 5. DM - Bedside Accuchecks have been normal - SSI per protocol 6. Agitation - Ativan PRN 7. Hypokalemia - Resolved 8. Diffuse ST elevation -Appreciate input from cardiology; no further treatment DVT prophylaxis: Continue home Apixaban Discharge Planning: dc to SNF tomorrow if stable.
--- NOTE | 2018-06-22 16:27 | P.DIET ---
Nutritional Evaluation Type of nutrition evaluation: follow-up Nutrition consult regarding: Tube Feeding (MDC for TFing) Subjective Subjective Comments: Spoke to RN due to mothers questioning why the patient was Glucerna 1.5. Objective - Diagnosis Hypotension and tachycardia s/p GJ replacement - Objective [place] body weight: 81 kg % IBW: 87 (IBW 178#) Body Weight Used for Calculations: Actual (70 kg) Energy Needs - Lower Range (kCal/kg): 25 Energy Needs - Upper Range (kCal/kg): 30 Lower Limit kCal/kg (kCals): 1,750 Upper Limit kCal/kg (kCals): 2,100 Lower Limit Protein Factor (Grams per Kg): 1.0 Upper Limit Protein Factor (Grams per Kg): 1.5 Lower Protein Needs (Protein): 70 Upper Protein Needs (Protein): 105 Dietitian Reviewed in Medical Record: Curent medications, Intake & Output, Labs , Medical history, Tube feeding Diet Order: TF Objective Comments: PMH of anoxic brain injury Feeding - Current Tube Feeding Tube Feeding Product: Glucerna 1.5 Tube Feeding Method: Pump Tube Feeding Rate: 50 (mls/hr) Current kCals Provided by Tube Feedin,800 Current Protein Provided by Tube Feeding (gPRO): 99 Current Free H2O Provided (m/l): 911 Assessment Assessment: Blood sugars are WNL, and RN stated that she has not had to give him insulin in several days. Recommend changing TFing to a more appropriate formula at this time, Jevity 1.5 @ goal rate of 50mls/hr. Will provide 1800kcal, 77 g of protein and 912mls of free water. Continue to monitor TFing tolerance, labs and wt. Recommendations: 1. Recommend changing TFing to a more appropriate formula at this time, Jevity 1.5 @ goal rate of 50mls/hr. 2. Continue to monitor TFing tolerance, labs and wt Dietitian to Monitor: Lab values, Glucose level, Intake & Output, Tube feeding tolerance, Weight change, Residuals, Wound/skin status, Medical course
--- NOTE | 2018-06-22 16:48 | ECG ---
Date Performed: 06/20/2018 Time Performed: 16:27:49 PTAGE: 33 years EKG: SINUS BRADYCARDIA ST ELEVATION CONSISTENT WITH INJURY, PERICARDITIS, OR EARLY REPOLARIZATIO N Compared to previous tracing, sinus bradycardia replaced supraventricular tachycardia ABNORMAL ECG PREVIOUS TRACING : 06/09/2018 11.40 DOCTOR: Nitin Johnston Interpretating Date/Time 06/22/2018 16:47:34
--- NOTE | 2018-06-22 18:58 | ECHRPT ---
Indication: SHORTNESS OF BREATH CONCLUSIONS The left ventricular systolic function is normal with an estimated ejection fraction in the range of 60-65%. Trivial pulmonary valve regurgitation. BP: / HR: Rhythm: Sinus MEASUREMENTS (Male / Female) Normal Values Technical Quality:Excellent 2D ECHO LV Diastolic Diameter PLAX 4.6 cm 4.2 - 5.9 / 3.9 - 5.3 cm LV Systolic Diameter PLAX 3.3 cm IVS Diastolic Thickness 1.1 cm 0.6 - 1.0 / 0.6 - 0.9 cm LVPW Diastolic Thickness 1.0 cm 0.6 - 1.0 / 0.6 - 0.9 cm LV Relative Wall Thickness 0.5 RV Internal Dim ED PLAX 2.5 cm LA Systolic Diameter LX 2.8 cm 3.0 - 4.0 / 2.7 - 3.8 cm M-MODE Aortic Root Diameter MM 2.3 cm LA Systolic Diameter MM 3.0 cm LA Ao Ratio MM 1.3 AV Cusp Separation MM 2.1 cm DOPPLER AV Peak Velocity 99.1 cm/s AV Peak Gradient 3.9 mmHg LVOT Peak Velocity 79.0 cm/s LVOT Peak Gradient 2.5 mmHg MV Area PHT 3.9 cm Mitral E Point Velocity 53.8 cm/s Mitral A Point Velocity 36.0 cm/s Mitral E to A Ratio 1.5 LV E' Lateral Velocity 8.0 cm/s Mitral E to LV E' Lateral Ratio 6.7 LV E' Septal Velocity 9.2 cm/s Mitral E to LV E' Septal Ratio 5.9 PV Peak Velocity 88.2 cm/s PV Peak Gradient 3.1 mmHg FINDINGS LEFT VENTRICLE The left ventricular systolic function is normal with an estimated ejection fraction in the range of 60-65%. Normal left ventricular size. Wall thickness is normal. No regional wall motion abnormalities are present. RIGHT VENTRICLE Normal right ventricular size and systolic function. LEFT ATRIUM The left atrial size is normal. RIGHT ATRIUM The right atrial size is normal. ATRIAL SEPTUM Normal atrial septal thickness without atrial level shunting by limited color doppler interrogation. AORTA The aortic root and proximal ascending aorta are normal in size on limited imaging. MITRAL VALVE Structurally normal mitral valve. No mitral valve stenosis or regurgitation. AORTIC VALVE Trileaflet aortic valve. No aortic valve stenosis or regurgitation. TRICUSPID VALVE Structurally normal tricuspid valve. No tricuspid valve stenosis or regurgitation. PULMONARY VALVE Trivial pulmonary valve regurgitation. VESSELS The inferior vena cava is normal in size. PERICARDIUM No pericardial effusion. Richard Hernández DO (Electronically Signed) Final Date:22 June 2018 18:57
[2018-06-23 06:39] LABS: Glomerular Filtration Rate Greater Than 89 mL/min (>89)
--- NOTE | 2018-06-23 07:45 | P.PNIM ---
Subjective Interval history: in no acute distress. no fever. clinically the same. d/w the RN and no acute issues over night. Physical Exam Vital signs: Vital Signs 06/22/18 08:00 06/22/18 08:50 06/22/18 09:00 Temperature Pulse Rate 59 L 57 L Respiratory Rate 17 18 Blood Pressure 96/55 L 90/54 L Pulse Oximetry 100 100 100 06/22/18 10:00 06/22/18 11:00 06/22/18 12:00 Temperature Pulse Rate 53 L 53 L 54 L Respiratory Rate 18 21 21 Blood Pressure 93/59 L 83/61 L 111/59 L Pulse Oximetry 100 98 98 06/22/18 13:00 06/22/18 14:00 06/22/18 14:01 Temperature Pulse Rate 47 L 55 L 46 L Respiratory Rate 19 24 23 Blood Pressure 95/57 L 88/55 L Pulse Oximetry 97 99 98 06/22/18 15:00 06/22/18 15:01 06/22/18 16:00 Temperature Pulse Rate 51 L 45 L 52 L Respiratory Rate 24 33 H 18 Blood Pressure 85/52 L 99/58 L Pulse Oximetry 99 97 100 06/22/18 17:00 06/22/18 18:00 06/22/18 18:01 Temperature Pulse Rate 56 L 67 57 L Respiratory Rate 38 H 41 H 39 H Blood Pressure 91/54 L 124/91 H Pulse Oximetry 99 100 100 06/22/18 19:00 06/22/18 20:00 06/22/18 21:00 Temperature 98.7 F Pulse Rate 51 L 50 L 58 L Respiratory Rate 17 20 39 H Blood Pressure 117/63 109/65 111/75 Pulse Oximetry 100 100 100 06/22/18 22:00 06/22/18 22:03 06/22/18 23:00 Temperature Pulse Rate 57 L 68 Respiratory Rate 20 18 Blood Pressure 118/60 125/83 Pulse Oximetry 97 100 70 L 06/23/18 00:00 06/23/18 00:01 06/23/18 01:00 Temperature Pulse Rate 44 L 44 L 46 L Respiratory Rate 23 17 23 Blood Pressure 111/53 L 111/53 L 106/66 Pulse Oximetry 100 100 100 06/23/18 02:00 06/23/18 03:00 06/23/18 04:00 Temperature Pulse Rate 47 L 53 L 58 L Respiratory Rate 19 25 H 22 Blood Pressure 106/63 115/70 134/65 Pulse Oximetry 100 99 100 06/23/18 06:00 Temperature Pulse Rate 47 L Respiratory Rate Blood Pressure Pulse Oximetry Intake & Output 06/22/18 06/23/18 06/23/18 18:59 06:59 18:59 Intake Total 660 / 660 Output Total 525 / 525 Balance 135 / 135 Weight 104 kg Intake: Oral 0 / 0 Tube Feeding 510 / 510 Tube Irrigant 50 / 50 Water Bolus Amount 100 / 100 Output: Urine 275 / 275 Stool 0 / 0 Urine Amount (Catheter) 250 / 250 Condom 250 / 250 Other: # Voids 1 # Incontinent Voids 1 Date of Last Bowel Movement 06/21/18 06/22/18 # Bowel Movements 1 # Incontinent Bowel Movements 1 - Constitutional no acute distress - Routine Respiratory Exam Present: CTA bilaterally - Routine Cardiovascular Exam Present: RRR - Routine Abdominal Exam Present: soft - Routine Extremities Exam Comments: no pedal edema. - Routine Neurological Exam noncommunicative. - Urinary Catheter Management Condom Cath placed during this visit: no Results - Labs CBC & Chem 7: 06/15/18 06:05 06/23/18 04:45 Laboratory Results - last 24 hr 06/22/18 06/23/18 06/23/18 21:13 04:45 05:37 Creatinine 0.76 Estimated GFR Greater than 89 POC Glucose 103 117 H Assessment and Plan - Plan 1. Acute on chronic respiratory failure with severe sepsis/pneumonia - On T-piece - Likely secondary to early pneumonia given hypoxia, thick tracheal secretions, and severe sepsis - Recently treated as an inpatient for HCAP 05/22-06/03 (MDRO Pseudomonas and ESBL E. coli) - s/p vancomycin and Avycaz. Patient is currently off antibiotics as of June 16, 2018 - evaluated by ID. - Sputum culture from trach growing MDRO Pseudo and ESBL E. coli once again - Trach care - Supplemental O2 PRN - Bronchodilators 2. Sepsis-resolved. - source likely early pneumonia - Acute septic component resolved - S/P 5L NS - BC NDT 3. Bradycardia - Otherwise hemodynamically stable -cardiology evaluated. - Monitor 4. Anoxic brain injury, seizure disorder - Continue home Keppra - S/P GJ tube exchange on 06/09 for feeding tube dysfunction and now J-tube clogged; s/p exchanged 06/14/18 - Continue Glucerna 1.5 at 50 cc/hr 5. DM - Bedside Accuchecks have been normal - SSI per protocol 6. Agitation - Ativan PRN 7. Hypokalemia - Resolved 8. Diffuse ST elevation -Appreciate input from cardiology; no further treatment DVT prophylaxis: Continue home Apixaban Discharge Planning: dc to SNF today. see med list. f/u; pcp. E-Foarsce was reviewed. d/w the RN. time spent 35 min.
--- NOTE | 2018-06-23 07:50 | P.DS ---
Date of admission: 06/09/18 13:45 Primary care physician: UNKNOWN Brief History from admission: This is a 33-year-old male with history of anoxic brain injury with aphasia, seizure disorder, status post tracheostomy and PEG tube placement, diabetes mellitus, hypertension, and frequent hospitalizations for aspiration pneumonia presenting to the hospital from the interventional radiology unit with hypotension and tachycardia. Of note, the patient was recently admitted May and was discharged 06/03/2018 for acute respiratory failure secondary to healthcare associated pneumonia. He had history of multidrug-resistant organism with Pseudomonas and ESBL E. coli. Today, the patient had an IR intervention done since he has been leaking from his GJ tube. During the procedure, the patient became hypotensive and diaphoretic. Patient was then sent to the emergency department. Patient is a poor historian, does not answer any questions, does not follow any commands. He does have a lot of yellowish to almost greenish secretions from his tracheostomy. Became tachycardic in the emergency department in the 150s-160s, status post 3 L of normal saline. Family history cannot be obtained DS: Medications - Discharge Medications Prescriptions: lorazepam [Ativan] 0.5 mg FEEDING TUBE Q4HR PRN #10 tab PRN Reason: Anxiety/seizures DS: Summary Hospital Course: patient was admitted with acute respiratory failure and sepsis. he was initially started on IV antibiotics. evaluated by ID. sputum culture with pseudomonas and E-coli ESBL- antibiotics were stopped per ID and he remained stable off antibiotics. he was bradycardic and evaluated by cardiology with no intervention. his metoprolol will be held for now.he will be discharged to SNF with f/u with pcp. - Time Spent with Patient Total time spent providing and/or coordinating discharge services: Greater than 30 minutes (35 min.) Exam Vital signs: Vital Signs 06/22/18 08:00 06/22/18 08:50 06/22/18 09:00 Temperature Pulse Rate 59 L 57 L Respiratory Rate 17 18 Blood Pressure 96/55 L 90/54 L Pulse Oximetry 100 100 100 06/22/18 10:00 06/22/18 11:00 06/22/18 12:00 Temperature Pulse Rate 53 L 53 L 54 L Respiratory Rate 18 21 21 Blood Pressure 93/59 L 83/61 L 111/59 L Pulse Oximetry 100 98 98 06/22/18 13:00 06/22/18 14:00 06/22/18 14:01 Temperature Pulse Rate 47 L 55 L 46 L Respiratory Rate 19 24 23 Blood Pressure 95/57 L 88/55 L Pulse Oximetry 97 99 98 06/22/18 15:00 06/22/18 15:01 06/22/18 16:00 Temperature Pulse Rate 51 L 45 L 52 L Respiratory Rate 24 33 H 18 Blood Pressure 85/52 L 99/58 L Pulse Oximetry 99 97 100 06/22/18 17:00 06/22/18 18:00 06/22/18 18:01 Temperature Pulse Rate 56 L 67 57 L Respiratory Rate 38 H 41 H 39 H Blood Pressure 91/54 L 124/91 H Pulse Oximetry 99 100 100 06/22/18 19:00 06/22/18 20:00 06/22/18 21:00 Temperature 98.7 F Pulse Rate 51 L 50 L 58 L Respiratory Rate 17 20 39 H Blood Pressure 117/63 109/65 111/75 Pulse Oximetry 100 100 100 06/22/18 22:00 06/22/18 22:03 06/22/18 23:00 Temperature Pulse Rate 57 L 68 Respiratory Rate 20 18 Blood Pressure 118/60 125/83 Pulse Oximetry 97 100 70 L 06/23/18 00:00 06/23/18 00:01 06/23/18 01:00 Temperature Pulse Rate 44 L 44 L 46 L Respiratory Rate 23 17 23 Blood Pressure 111/53 L 111/53 L 106/66 Pulse Oximetry 100 100 100 06/23/18 02:00 06/23/18 03:00 06/23/18 04:00 Temperature Pulse Rate 47 L 53 L 58 L Respiratory Rate 19 25 H 22 Blood Pressure 106/63 115/70 134/65 Pulse Oximetry 100 99 100 06/23/18 06:00 Temperature Pulse Rate 47 L Respiratory Rate Blood Pressure Pulse Oximetry Intake & Output 06/22/18 06/23/18 06/23/18 18:59 06:59 18:59 Intake Total 660 / 660 Output Total 525 / 525 Balance 135 / 135 Weight 104 kg Intake: Oral 0 / 0 Tube Feeding 510 / 510 Tube Irrigant 50 / 50 Water Bolus Amount 100 / 100 Output: Urine 275 / 275 Stool 0 / 0 Urine Amount (Catheter) 250 / 250 Condom 250 / 250 Other: # Voids 1 # Incontinent Voids 1 Date of Last Bowel Movement 06/21/18 06/22/18 # Bowel Movements 1 # Incontinent Bowel Movements 1 - Constitutional no acute distress - Routine Respiratory Exam Present: CTA bilaterally - Routine Cardiovascular Exam Present: RRR - Routine Abdominal Exam Present: soft - Routine Extremities Exam Comments: no pedal edema. - Routine Neurological Exam noncommunicative. Results Procedures completed during hospitalization: GJ tube exchange. Labs on day of discharge: Labs from last 24 hours 06/23/18 06/23/18 06/22/18 05:37 04:45 21:13 Creatinine 0.76 Estimated GFR Greater than 89 POC Glucose 117 H 103 - Impressions ITS Impressions Tube Change 06/14/18 00:00 CONCLUSION: 1. Uncomplicated gastrojejunostomy tube exchange as above. Chest X-Ray 06/20/18 16:43 CONCLUSION: 1. Stable tracheostomy. 2. No acute cardiopulmonary disease. Discharge Plan - Discharge Disposition Patient Disposition: 03 Discharge to SNF - Discharge Condition Condition: Stable - Discharge Order Discharge Orders: Discharge Order (Routine); Ordered 06/23/18 Ordered By: Noemi Kaye - Physicians Team Primary Care Provider: UNKNOWN, Attending Provider: Noemi Kaye Other Providers: Nannette Josue MD ; [facility] ; Justin Dean MD
[2018-06-23] MEDS: Insulin NovoLOG Aspart Correctional Sugar Inj SQ SCH ×4 (08:30→20:50)
[2018-06-23] MEDS: Famotidine 20 MG Tablet G-TUBE SCH ×2 (09:31→20:15)
[2018-06-23] MEDS: Loratadine 10 MG Tablet G-TUBE SCH (17:31)
[2018-06-23] MEDS: Senna/Docusate Sodium 8.6/50 MG Tablet PO SCH ×2 (17:32→20:16)
--- NOTE | 2018-06-24 08:11 | P.PNIM ---
Subjective Interval history: in no acute distress. no acute issues over night per RN. awaiting transfer to SNF. Physical Exam Vital signs: Vital Signs 06/23/18 08:13 06/23/18 12:00 06/23/18 16:00 Temperature 99.2 F 99.4 F Pulse Rate 52 L 73 Respiratory Rate 16 18 Blood Pressure 113/59 L 109/64 Pulse Oximetry 100 100 100 06/23/18 19:00 06/23/18 20:00 06/23/18 21:04 Temperature 99.8 F H Pulse Rate 73 Respiratory Rate 25 H Blood Pressure 113/65 Pulse Oximetry 100 100 100 06/24/18 00:00 06/24/18 00:43 06/24/18 04:00 Temperature 99.7 F H 98.5 F Pulse Rate 55 L 53 L Respiratory Rate 19 18 Blood Pressure 101/61 92/54 L Pulse Oximetry 100 98 100 06/24/18 05:06 Temperature Pulse Rate Respiratory Rate Blood Pressure Pulse Oximetry 100 Intake & Output 06/23/18 06/24/18 06/24/18 18:59 06:59 18:59 Intake Total 775 / 775 1216 / 1216 Output Total 250 / 250 Balance 775 / 775 966 / 966 Weight 66.5 kg Intake: IV 250 / 250 Tube Feeding 525 / 525 966 / 966 Tube Irrigant 250 / 250 Output: Urine 250 / 250 Other: Date of Last Bowel Movement 06/23/18 06/24/18 # Bowel Movements 1 1 # Incontinent Bowel Movements 1 - Constitutional no acute distress - Routine Respiratory Exam Present: CTA bilaterally - Routine Cardiovascular Exam Present: RRR - Routine Abdominal Exam Present: soft - Routine Extremities Exam Comments: no pedal edema. - Routine Neurological Exam non-communicative. - Urinary Catheter Management Condom Cath placed during this visit: no Results - Labs CBC & Chem 7: 06/15/18 06:05 06/23/18 04:45 Laboratory Results - last 24 hr 06/23/18 06/23/18 10:45 20:18 POC Glucose 127 H 104 - Procedures GJ tube exchange. Assessment and Plan - Plan 1. Acute on chronic respiratory failure with severe sepsis/pneumonia - On T-piece - Likely secondary to early pneumonia given hypoxia, thick tracheal secretions, and severe sepsis - Recently treated as an inpatient for HCAP 05/22-06/03 (MDRO Pseudomonas and ESBL E. coli) - s/p vancomycin and Avycaz. Patient is currently off antibiotics as of June 16, 2018 - evaluated by ID. - Sputum culture from trach growing MDRO Pseudo and ESBL E. coli once again - Trach care - Supplemental O2 PRN - Bronchodilators 2. Sepsis-resolved. - source likely early pneumonia - Acute septic component resolved - S/P 5L NS - BC NDT 3. Bradycardia - Otherwise hemodynamically stable -cardiology evaluated. - Monitor 4. Anoxic brain injury, seizure disorder - Continue home Keppra - S/P GJ tube exchange on 06/09 for feeding tube dysfunction and now J-tube clogged; s/p exchanged 06/14/18 - Continue Glucerna 1.5 at 50 cc/hr 5. DM - Bedside Accuchecks have been normal - SSI per protocol 6. Agitation - Ativan PRN 7. Hypokalemia - Resolved 8. Diffuse ST elevation -Appreciate input from cardiology; no further treatment DVT prophylaxis: Continue home Apixaban Discharge Planning: for transfer to SNF today. see med list. f/u; pcp. E-Foarsce was reviewed. d/w the RN. time spent 35 min.
[2018-06-24] MEDS: Famotidine 20 MG Tablet G-TUBE SCH (10:34)
[2018-06-24] MEDS: Loratadine 10 MG Tablet G-TUBE SCH (10:35)
[2018-06-24] MEDS: Senna/Docusate Sodium 8.6/50 MG Tablet PO SCH (10:36)
== END 2018-06-24 13:00 ==
LOC: NEPE 09:50 → NEDA 13:45 → HIMC 06-10 04:55
PROVIDERS: ADMIT Internal Medicine; ATTEND Internal Medicine

== ENCOUNTER 2018-06-26 12:47 | Inpatient (IN) ==
[2018-06-26] MEDS ORDERED: Morphine Inj 4 MG/ML Vial IV.PUSH ONE (13:06)
[2018-06-26] MEDS ORDERED: Acetaminophen 650 MG Supp RECTAL ONE (13:06)
[2018-06-26] MEDS ORDERED: Sod Chloride 0.9% Inj 1,000 ML IV.SIG SCH (13:15)
[2018-06-26 13:35] LABS: Baso # (Auto) 0.1 th/mm3 (0.0-0.2); Baso % (Auto) 1.2 % (0.0-2.0); Eos # (Auto) 0.1 th/mm3 (0.0-0.4); Eos % (Auto) 0.9 % (0.0-4.0); Hematocrit 47.7 % (39.0-51.0); Hemoglobin 15.9 gm/dL (13.0-17.0); Lymph # (Auto) 2.9 th/mm3 (1.0-4.8); Lymph % (Auto) 31.3 % (9.0-44.0); Mean Corpuscular HGB Conc 33.3 % (32.0-36.0); Mean Corpuscular Hemoglobin 31.3 pg (27.0-34.0); Mean Platelet Volume 11.4 fL (7.0-11.0); Mono # (Auto) 0.6 th/mm3 (0.0-0.9); Mono % (Auto) 6.8 % (0.0-8.0); Neut # (Auto) 5.6 th/mm3 (1.8-7.7); Neut % (Auto) 59.8 % (16.0-70.0); Platelet Count 325 th/mm3 (150-450); Red Blood Count 5.07 mil/mm3 (4.50-5.90); Red Cell Distribution Width 13.1 % (11.6-17.2); White Blood Count 9.3 th/mm3 (4.0-11.0)
--- NOTE | 2018-06-26 13:41 | XR ---
EXAM DATE: 06/26/2018 1:34 PM EDT AGE/SEX: 33 years / Male INDICATIONS: Shortness of breath and fever. CLINICAL DATA: This is the patient's initial encounter. Patient reports that signs and symptoms have been present for 1 day and indicates a pain score of Nonresponsive. MEDICAL/SURGICAL HISTORY: Non-responsive. Non-responsive. [place] [facility] [place]. . FINDINGS: Portable AP view of the chest demonstrates a normal-sized cardiac silhouette. Tracheostomy overlies t he tracheal air shadow. EKG lines overlie the patient. Lungs are underinflated but no effusion, conso lidation, or pneumothorax is identified. Bones and soft tissues demonstrate no acute abnormality. CONCLUSION: Underinflated examination without an acute abnormality identified. Electronically signed by: Orlando Christianson MD 06/26/2018 1:39 PM EDT
[2018-06-26 13:48] LABS: Activated Partial Thrombo Time 23.6 sec (24.3-30.1); INR 1.1 Ratio
[2018-06-26 13:59] LABS: Alanine Aminotransferase 71 U/L (12-78); Albumin 4.4 g/dL (3.4-5.0); Anion Gap 14 meq/L (5-15); Aspartate Aminotransferase 24 U/L (15-37); Calcium 9.7 mg/dL (8.5-10.1); Carbon Dioxide 24.1 meq/L (21.0-32.0); Chloride 103 meq/L (98-107); Glomerular Filtration Rate 82 mL/min (>89); Glucose,Random 142 mg/dL (74-106); Potassium 4.2 meq/L (3.5-5.1); Sodium 141 meq/L (136-145)
[2018-06-26 14:04] LABS: Alkaline Phosphatase 109 U/L (45-117); Blood Urea Nitrogen 16 mg/dL (7-18); Total Protein 9.4 g/dL (6.4-8.2)
[2018-06-26] MEDS ORDERED: Piperacil/Tazo 3.375 GM Premix 50 ML IV.SIG ONE (14:11)
[2018-06-26] MEDS ORDERED: Vancomycin Inj 1 GM/200 ML PIGGYBACK IV.SIG ONE (14:11)
[2018-06-26] MEDS: Sod Chloride 0.9% Inj 1,000 ML IV.SIG SCH ×2 (14:25→15:47)
--- NOTE | 2018-06-26 14:28 | ED ---
HPI General Chief complaint: Fever Stated complaint: Medical Time Seen by Provider: 06/26/18 13:06 Source: EMS Mode of arrival: EMS Limitations: other (anoxic brain injury) History of Present Illness HPI narrative: Patient is a 33-year-old male with history of anoxic brain injury who has been in the hospital multiple times for sepsis, just discharged June 23, brought in due to tachycardia and diaphoresis. He was also found to be febrile. Patient is nonverbal, cannot provide any history. Related Data Home Medications Medication Instructions Recorded Confirmed apixaban [Eliquis] 5 mg FEEDING TUBE BID 05/22/18 06/26/18 glycopyrrolate 1 mg FEEDING TUBE Q8H PRN 05/22/18 06/26/18 hyoscyamine sulfate [Levsin] 0.25 mg FEEDING TUBE Q4H PRN 05/22/18 06/26/18 levetiracetam 1,000 mg FEEDING TUBE Q12H 05/22/18 06/26/18 loratadine [Claritin] 10 mg FEEDING TUBE DAILY 05/22/18 06/26/18 lorazepam 1 mg/kg IM Q6HR PRN 05/22/18 06/26/18 multivitamin with minerals 5 ml FEEDING TUBE DAILY 05/22/18 06/26/18 oxycodone 5 mg PO Q6HR PRN 06/26/18 06/26/18 Previous Rx's Medication Instructions Recorded lorazepam [Ativan] 0.5 mg FEEDING TUBE Q4HR PRN #10 06/22/18 tab Allergies Allergy/AdvReac Type Severity Reaction Status Date / Time haloperidol AdvReac Severe Seizures Verified 06/09/18 09:58 *MDRO Multi-Drug Resistant AdvReac Unknown Dry Mucus Uncoded 06/09/18 09:58 Organism Membranes Review of Systems ROS Unobtainable ROS Unobtainable: unobtainable due to mental condition PMFSH Medical History Medical History Tracheostomy dependent (Acute) GERD (gastroesophageal reflux disease) (Acute) Pancreatitis (Acute) Diabetes mellitus (Acute) Dyslipidemia (Acute) HTN (hypertension) (Acute) Seizure (Acute) DVT (deep venous thrombosis) (Acute) Anoxic brain damage (Acute) Surgical History Surgical History PEG (percutaneous endoscopic gastrostomy) status (Acute) Social History Social History Substance History: No History of Abuse Second Hand Smoke Exposure: No Smoking Status: Former smoker How Often Do You Have a Drink Containing Alcohol: Never Recent Travel in [facility] within the Last 8 Weeks: No Recent Out of Country Travel within the Last 8 Weeks: No Immunization History Tetanus Immunization: Unable to Assess Hx Influenza Vaccine This Season: Unable to Assess Exam Narrative Exam Narrative: GENERAL: Awake, not responsive. SKIN: Diaphoretic HEAD: Atraumatic. Normocephalic. EYES: Pupils equal and round and reactive. No scleral icterus. ENT: Mucous membranes pink and moist. NECK: Trachea midline. No JVD. CARDIOVASCULAR: Tachycardia RESPIRATORY: Patient has trach. Tachypneic. GASTROINTESTINAL: Abdomen soft, non-tender, nondistended. G-tube in place. MUSCULOSKELETAL: Muscle atrophy. Patient posturing, contracted. NEUROLOGICAL: unresponsive, does not move his extremities. Course Initial Documented Vital Signs Pulse Rate 199 H 06/26/18 12:51 Respiratory Rate 30 H 06/26/18 12:51 Blood Pressure 174/97 H 06/26/18 12:51 Pulse Oximetry 100 06/26/18 12:51 Last Documented Vital Signs Temperature 103.5 F H 06/26/18 13:52 Pulse Rate 87 06/26/18 17:40 Respiratory Rate 24 06/26/18 17:40 Blood Pressure 120/53 L 06/26/18 17:40 Pulse Oximetry 100 06/26/18 17:40 Medical Decision Making [facility] Narrative Medical decision making narrative: Patient is a 33-year-old male with history of anoxic brain injury who comes in due to tachycardia and fever. Patient is tachycardic and diaphoretic on arrival. IV established. Given morphine with improvement of his symptoms. Given IV fluids. Labs concerning for a lactic acid of 9. Given additional fluids. Given vancomycin and Zosyn. Patient admitted for further management. Medical Screen Exam Complete: Yes Emergency Medical Condition: Yes Differential Diagnosis Differential Diagnosis: Sepsis versus UTI versus pneumonia versus dehydration Medical Records Medical records reviewed: Yes I reviewed the patient's medical records. Lab Data Lab results reviewed: Yes I reviewed the patient's lab results. Result diagrams: 06/26/18 13:10 08/25/18 13:10 Lab Results 06/26/18 06/26/18 06/26/18 Range/Units 13:10 13:10 13:10 WBC 9.3 (4.0-11.0) th/mm3 RBC 5.07 (4.50-5.90) mil/mm3 Hgb 15.9 (13.0-17.0) gm/dL Hct 47.7 (39.0-51.0) % MCV 94.0 (80.0-100.0) fL MCH 31.3 (27.0-34.0) pg MCHC 33.3 (32.0-36.0) % RDW 13.1 (11.6-17.2) % Plt Count 325 D (150-450) th/mm3 MPV 11.4 H (7.0-11.0) fL Neut % (Auto) 59.8 (16.0-70.0) % Lymph % (Auto) 31.3 (9.0-44.0) % Cecil % (Auto) 6.8 (0.0-8.0) % Eos % (Auto) 0.9 (0.0-4.0) % Baso % (Auto) 1.2 (0.0-2.0) % Neut # (Auto) 5.6 (1.8-7.7) th/mm3 Lymph # (Auto) 2.9 (1.0-4.8) th/mm3 Cecil # (Auto) 0.6 (0.0-0.9) th/mm3 Eos # (Auto) 0.1 (0.0-0.4) th/mm3 Baso # (Auto) 0.1 (0.0-0.2) th/mm3 WBC Differential . Differential Comment Auto diff final PT 11.0 (9.8-11.6) sec INR 1.1 Ratio APTT 23.6 L (24.3-30.1) sec Puncture Site Patient Temperature O2 Saturation (90-100) % ABG pH (7.380-7.420) ABG pCO2 (38-42) mmHg ABG pO2 (61-120) mmHg ABG HCO3 (22-26) mmol/L ABG O2 Content (12.0-20.0) Vol % ABG Base Excess (-2-2) mmol/L ABG Methemoglobin (0-2) % Hemoglobin (12.0-16.0) G/DL Carboxyhemoglobin (0-4) % O2 Delivery Device Liter Flow L/M Vent Setting Inspired O2 % Critical Value Sodium 141 (136-145) meq/L Potassium 4.2 (3.5-5.1) meq/L Chloride 103 (98-107) meq/L Carbon Dioxide 24.1 (21.0-32.0) meq/L Anion Gap 14 (5-15) meq/L BUN 16 (7-18) mg/dL Creatinine 1.25 (0.60-1.30) mg/dL Estimated GFR 82 L (>89) mL/min Random Glucose 142 H (74-106) mg/dL Lactic Acid (0.4-2.0) mmol/L Calcium 9.7 (8.5-10.1) mg/dL Total Bilirubin 0.3 (0.2-1.0) mg/dL AST 24 (15-37) U/L ALT 71 (12-78) U/L Alkaline Phosphatase 109 (45-117) U/L Troponin I Less than 0.02 L (0.02-0.05) ng/mL Total Protein 9.4 H (6.4-8.2) g/dL Albumin 4.4 (3.4-5.0) g/dL 06/26/18 06/26/18 06/26/18 Range/Units 13:20 15:40 15:46 WBC (4.0-11.0) th/mm3 RBC (4.50-5.90) mil/mm3 Hgb (13.0-17.0) gm/dL Hct (39.0-51.0) % MCV (80.0-100.0) fL MCH (27.0-34.0) pg MCHC (32.0-36.0) % RDW (11.6-17.2) % Plt Count (150-450) th/mm3 MPV (7.0-11.0) fL Neut % (Auto) (16.0-70.0) % Lymph % (Auto) (9.0-44.0) % Cecil % (Auto) (0.0-8.0) % Eos % (Auto) (0.0-4.0) % Baso % (Auto) (0.0-2.0) % Neut # (Auto) (1.8-7.7) th/mm3 Lymph # (Auto) (1.0-4.8) th/mm3 Cecil # (Auto) (0.0-0.9) th/mm3 Eos # (Auto) (0.0-0.4) th/mm3 Baso # (Auto) (0.0-0.2) th/mm3 WBC Differential Differential Comment PT (9.8-11.6) sec INR Ratio APTT (24.3-30.1) sec Puncture Site Right brachial Patient Temperature 98.6 O2 Saturation 98 (90-100) % ABG pH 7.34 L (7.380-7.420) ABG pCO2 43 H (38-42) mmHg ABG pO2 176 H (61-120) mmHg ABG HCO3 22 (22-26) mmol/L ABG O2 Content 17.9 (12.0-20.0) Vol % ABG Base Excess -2.7 L (-2-2) mmol/L ABG Methemoglobin 0.6 (0-2) % Hemoglobin 12.8 (12.0-16.0) G/DL Carboxyhemoglobin 0.6 (0-4) % O2 Delivery Device Ambu mask Liter Flow 10.00 L/M Vent Setting Tpiece Inspired O2 40 % Critical Value No Sodium (136-145) meq/L Potassium (3.5-5.1) meq/L Chloride (98-107) meq/L Carbon Dioxide (21.0-32.0) meq/L Anion Gap (5-15) meq/L BUN (7-18) mg/dL Creatinine (0.60-1.30) mg/dL Estimated GFR (>89) mL/min Random Glucose (74-106) mg/dL Lactic Acid 9.0 H* 2.6 H (0.4-2.0) mmol/L Calcium (8.5-10.1) mg/dL Total Bilirubin (0.2-1.0) mg/dL AST (15-37) U/L ALT (12-78) U/L Alkaline Phosphatase (45-117) U/L Troponin I (0.02-0.05) ng/mL Total Protein (6.4-8.2) g/dL Albumin (3.4-5.0) g/dL Imaging Data Radiologist's impression: Chest X-Ray 06/26/18 13:06 CONCLUSION: Underinflated examination without an acute abnormality identified. ECG Data EKG Prior to Arrival: No Attestation: I personally reviewed and interpreted this ECG as follows: Interpretation: ECG shows sinus tachycardia Discharge Plan Discharge Disposition Patient Disposition: 30 Still Patient Discharge Condition Condition: Stable Discharge Details Diagnosis: Acidosis, lactic, Tachycardia, Acute dehydration Physicians Team ED Provider: Corinna Skelton Primary Care Provider: UNKNOWN, Attending Provider: Heladio Garcia Other Providers: Nitin Huff ; Pina Cagle Discharge Interventions Interventions: ED Discharge Assessment Last Done: 06/26/18 18:14 Vital Signs Last Done: 06/26/18 14:04 Status ED Status: Left Department Discharge Information Discharge Date/Time: 06/26/18 18:10
[2018-06-26] MEDS ORDERED: Potassium Chloride 25 MEQ Effervescent Tablet PO PRN (14:39)
[2018-06-26] MEDS ORDERED: Magnesium Sulfate Inj 4 GM in Sodium Chlor 0.9% Inj 92 ML IV.SIG PRN (14:39)
[2018-06-26] MEDS ORDERED: Magnesium Oxide 400 MG Tablet PO PRN (14:39)
[2018-06-26] MEDS ORDERED: Potassium Chlor 40 mEq Premix 40 MEQ/100 ML PIGGYBACK IV.SIG PRN ×2 (14:39)
[2018-06-26] MEDS ORDERED: Potassium Chlor 20 mEq Premix 20 MEQ/100 ML PIGGYBACK IV.SIG PRN (14:39)
[2018-06-26] MEDS ORDERED: Magnesium Sulfate Inj 2 GM in Sodium Chlor 0.9% Inj 96 ML IV.SIG PRN (14:39)
[2018-06-26] MEDS ORDERED: Potassium Phosphate Inj 30 MMOL in Sodium Chlor 0.9% Inj 250 ML IV.SIG PRN (14:39)
[2018-06-26] MEDS ORDERED: Bisacodyl 10 MG Supp RECTAL PRN (14:39)
[2018-06-26] MEDS ORDERED: Sodium Phosphate Inj 30 MMOL in Sodium Chlor 0.9% Inj 250 ML IV.SIG PRN (14:39)
[2018-06-26] MEDS ORDERED: Potassium Phosphate 500 MG Soluble Tablet PO PRN ×2 (14:39)
[2018-06-26] MEDS ORDERED: Heparin - SQ 10,000 UNITS/ML Vial SQ SCH (14:45)
--- NOTE | 2018-06-26 14:56 | P.HPCC ---
History of Present Illness Service: Critical care medicine Primary Care Physician: UNKNOWN Chief Complaint: fever History of Present Illness: This is a 33-year-old male wanted to the critical care medicine service who has a history of severe neurologic deficit and 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 He was recently discharged from the hospital on 06/24. He was in his nursing home facility when he worsening tachycardia and fever. Per report they gave him Ativan which is typically what improves his symptoms. This did not improve improve his symptoms and so he was taken to the emergency department. He was given morphine IV which additionally improves his symptoms, and after he received the morphine IV his symptoms resolved. In the emergency department he had a lactate of 9 and a white count of 9.3. He was febrile to 39.7. His lactate cleared after 2 hours to 2.6. ABG is without significant acidosis. Patient is at his neurologic baseline, as I have seen him multiple times in previous admissions. Review of systems is completely unobtainable. Inpatient Certification: I certify that the inpatient services were ordered in accordance with Medicare regulations governing the order. This includes certification that hospital inpatient services are reasonable and necessary and in the case of services not specified as inpatient-only under 42 CFR 419.22(n), that they are appropriately provided as inpatient services in accordance to with the 2-midnight benchmark under 43 CFR 412.3(e) Estimated Total Length of Stay (Days): 15 Plans for Post Hospital Care: Not yet determined Review of Systems unobtainable due to mental condition, unobtainable due to mental status PMFSH - History History Provided By: Medical Record, Grinder Operator External Tool / EMT - Medical History Medical History: Medical History (Last Reviewed 06/26/18 @ 18:16 by Corinna Skelton MD) Tracheostomy dependent (Acute) GERD (gastroesophageal reflux disease) (Acute) Pancreatitis (Acute) Diabetes mellitus (Acute) Dyslipidemia (Acute) HTN (hypertension) (Acute) Seizure (Acute) DVT (deep venous thrombosis) (Acute) Anoxic brain damage (Acute) - Surgical History Surgical History: Surgical History (Last Reviewed 06/26/18 @ 18:16 by Corinna Skelton MD) PEG (percutaneous endoscopic gastrostomy) status (Acute) - Tobacco History Second Hand Smoke Exposure: No Smoking Status: Former smoker - Alcohol History How Often Do You Have a Drink Containing Alcohol: Never - Substance Use History Substance History: No History of Abuse - Travel History Recent Travel in the [place] Within the Last 8 Weeks: No Recent Travel Out of the Country Within the Last 8 Weeks: No - Immunization History Tetanus Immunization: Unable to Assess Hx Influenza Vaccine This Season: Unable to Assess Medications and Allergies Active Medications: Active Medications Al Hydroxide/Mg Hydroxide (Milk Of Magndemetria Liq) 30 ml PO Q12H PRN PRN Reason: Mild Constipation Albuterol (Duoneb Neb (Prn)) 1 ampul NEB Q2HR NEB PRN PRN Reason: WHEEZING Bisacodyl (Dulcolax Supp) 10 mg RECTAL DAILY PRN PRN Reason: SEVERE CONSITIPATION Chlorhexidine Gluconate (Chlorhexidine 2% Cloth) 3 pack TOPICAL DAILY@0400 SHAYNA Stop: 07/02/18 03:59 Chlorhexidine Gluconate (Chlorhexidine 2% Cloth) 3 pack TOPICAL DAILY@0400 PRN PRN Reason: Extra cloth needed Stop: 07/02/18 03:59 Famotidine (Pepcid) 20 mg PO BID SH[facility] Heparin Sodium (Porcine) (Heparin Inj) 5,000 units SQ Q8H [facility] Sodium Chloride (Ns Inj) 1,000 mls @ 0 mls/hr IV.SIG .Q0M [facility] Last Infusion: 06/26/18 14:19 Dose: Infused Sodium Chloride (Ns Inj) 1,000 mls @ 0 mls/hr IV.SIG BOLUS SHAYNA Stop: 06/27/18 14:31 Last Admin: 06/26/18 14:25 Dose: 1,000 mls/hr Vancomycin HCl 1,000 mg/ (Sodium Chloride) 250 mls @ 250 mls/hr IV.SIG ONCE ONE Stop: 06/26/18 15:59 Last Admin: 06/26/18 14:46 Dose: 250 mls/hr Magnesium Sulfate Inj 4 gm/ (Sodium Chloride) 100 mls @ 50 mls/hr IV.SIG UNSCH PRN PRN Reason: For Magnesium 0.9 - 1.1 mg/dL Magnesium Sulfate Inj 2 gm/ (Sodium Chloride) 100 mls @ 50 mls/hr IV.SIG UNSCH PRN PRN Reason: For Magnesium 1.2 - 1.6 mg/dL Potassium Chloride (Kcl 40 Meq Premix Inj) 40 meq in 100 mls @ 25 mls/hr IV.SIG Q2H PRN PRN Reason: For Potassium 2.8 - 3.2 mEq/L Potassium Chloride (Kcl 20 Meq Premix Inj) 20 meq in 100 mls @ 50 mls/hr IV.SIG Q2H PRN PRN Reason: For Potassium 3.3 - 3.5 mEq/L Potassium Chloride (Kcl 20 Meq Premix Inj) 20 meq in 100 mls @ 50 mls/hr IV.SIG Q2H PRN PRN Reason: For Potassium 2.8 - 3.2 mEq/L Potassium Phosphate 30 mmol/ (Sodium Chloride) 260 mls @ 42 mls/hr IV.SIG UNSCH PRN PRN Reason: SEE LABEL COMMENTS Sodium Phosphate 30 mmol/ (Sodium Chloride) 260 mls @ 42 mls/hr IV.SIG UNSCH PRN PRN Reason: For Phosphorus < 2.5 mg/dL Piperacillin/Tazobactam/Dextrose (Zosyn 3.375 Gm Premix) 50 mls @ 100 mls/hr IV.SIG Q6H [facility] Potassium Chloride (Kcl 40 Meq Premix Inj) 40 meq in 100 mls @ 25 mls/hr IV.SIG UNSCH PRN PRN Reason: For Potassium 3.3 - 3.5 mEq/L Lactulose (Lactulose Liq) 30 ml PO DAILY PRN PRN Reason: SEVERE CONSITIPATION Lorazepam (Ativan Inj) 1 mg IV.PUSH Q1H PRN PRN Reason: Agitation/sedation Magnesium Oxide (Mag-Ox) 800 mg PO UNSCH PRN PRN Reason: For Magnesium 1.2 - 1.6 mg/dL Morphine Sulfate (Morphine Inj) 2 mg IV.PUSH Q4H PRN PRN Reason: pain 6-10 or agitation Ondansetron HCl (Zofran Inj) 4 mg IV.PUSH Q6H PRN PRN Reason: NAUSEA OR VOMITING Potassium Bicarb/Potassium Chloride (K-Lyte Cl Eff) 50 meq PO UNSCH PRN PRN Reason: For Potassium 3.3 - 3.5 mEq/L Potassium Phosphate (K-Phos Original) 2,000 mg PO Q4H PRN PRN Reason: Phosphorus Less Than 2.5 mg/dL Potassium Phosphate (K-Phos Original) 2,000 mg PO UNSCH PRN PRN Reason: SEE LABEL COMMENTS Senna/Docusate Sodium (Shala-Colace) 1 tab PO BID [facility] Sennosides (Senokot) 17.2 mg PO Q12H PRN PRN Reason: Moderate Constipation Sodium Chloride (Ns Flush) 2 ml IV.FLUSH BID [facility] Sodium Chloride (Ns Flush) 2 ml IV.FLUSH PRN PRN PRN Reason: FLUSH AFTER USING IV ACCESS Allergies Allergy/AdvReac Type Severity Reaction Status Date / Time haloperidol AdvReac Severe Seizures Verified 06/09/18 09:58 *MDRO Multi-Drug Resistant AdvReac Unknown Dry Mucus Uncoded 06/09/18 09:58 Organism Membranes Home Medications Medication Instructions Recorded Confirmed Type apixaban [Eliquis] 5 mg FEEDING TUBE BID 05/22/18 06/26/18 History glycopyrrolate 1 mg FEEDING TUBE Q8H PRN 05/22/18 06/26/18 History hyoscyamine sulfate [Levsin] 0.25 mg FEEDING TUBE Q4H PRN 05/22/18 06/26/18 History levetiracetam 1,000 mg FEEDING TUBE Q12H 05/22/18 06/26/18 History loratadine [Claritin] 10 mg FEEDING TUBE DAILY 05/22/18 06/26/18 History lorazepam 1 mg/kg IM Q6HR PRN 05/22/18 06/26/18 History multivitamin with minerals 5 ml FEEDING TUBE DAILY 05/22/18 06/26/18 History oxycodone 5 mg PO Q6HR PRN 06/26/18 06/26/18 History Results - Labs CBC & Chem 7: 06/26/18 13:10 06/26/18 13:10 Labs: Short CBC 06/26/18 Range/Units 13:10 WBC 9.3 (4.0-11.0) th/mm3 Hgb 15.9 (13.0-17.0) gm/dL Hct 47.7 (39.0-51.0) % Plt Count 325 D (150-450) th/mm3 BMP 06/26/18 13:10 Sodium 141 Potassium 4.2 Chloride 103 Carbon Dioxide 24.1 BUN 16 Creatinine 1.25 Calcium 9.7 Cardiac Enzymes 06/26/18 Range/Units 13:10 Troponin I Less than 0.02 L (0.02-0.05) ng/mL Liver Function 06/26/18 Range/Units 13:10 Total Bilirubin 0.3 (0.2-1.0) mg/dL AST 24 (15-37) U/L ALT 71 (12-78) U/L Alkaline Phosphatase 109 (45-117) U/L Albumin 4.4 (3.4-5.0) g/dL - Imaging Impressions Chest X-Ray 06/26/18 13:06 CONCLUSION: Underinflated examination without an acute abnormality identified. Exam Vital signs: Vital Signs 06/26/18 12:51 06/26/18 13:52 06/26/18 13:54 Temperature 39.7 C H Pulse Rate 199 H 159 H Respiratory Rate 30 H 30 H Blood Pressure 174/97 H Pulse Oximetry 100 100 100 06/26/18 14:04 Temperature Pulse Rate 105 H Respiratory Rate 24 Blood Pressure 117/60 Pulse Oximetry 99 Intake & Output 06/25/18 06/26/18 06/26/18 18:59 06:59 18:59 Intake Total 1000 / 1000 Balance 1000 / 1000 Weight 77.111 kg Intake: IV 1000 / 1000 NS Inj 1,000 ML @ Wide Open IV. 1000 / 1000 SIG .Q0M [facility] Rx#:[id number] Narrative: GENERAL: Young male, lying in bed, encephalopathic, but at baseline neurologic exam for the patient from my prior exams. HEENT: Normocephalic. Atraumatic. Pupils equal, round, reactive, conjugate. Mucous membranes are moist NECK: Trachea is midline. There is no JVD. Tracheostomy is in place. CHEST: Equal chest rise. Trach collar oxygen. CARDIOVASCULAR: Normal rate of 72, regular rhythm. Sinus. ABDOMEN: Soft, nontender, nondistended. No guarding. PEG tube in place. MUSCULOSKELETAL: Pulses 2+. No peripheral edema. Contractures noted. NEUROLOGICAL: RASS -3. Tracts with eyes. Withdraws to pain. Neurologic exam is at baseline for the patient from my multiple prior neurologic exams. Septic Shock Reassessment Septic shock perfusion: reassessment completed Caprini VTE Risk Assessment Caprini VTE Risk Assessment: Moderate/High Risk (score >= 2) Caprini Risk Assessment Model: Point Value = 1 Point Value = 2 Point Value = 3 Point Value = 5 Age 41-60 Minor surgery BMI > 25 kg/m2 Swollen legs Varicose veins or History of unexplained or recurrent spontaneous Oral contraceptives or hormone replacement Sepsis (< 1 month) Serious lung disease, including pneumonia (< 1 month) Abnormal pulmonary function Acute myocardial infarction Congestive heart failure (< 1 month) History of inflammatory bowel disease Medical patient at bed rest Age 61-74 Arthroscopic surgery Major open surgery (> 45 min) Laparoscopic surgery (> 45 min) Malignancy Confined to bed (> 72 hours) Immobilizing plaster cast Central venous access Age >= 75 History of VTE Family history of VTE Factor V Leiden Prothrombin [id number] Lupus anticoagulant Anticardiolipin antibodies Elevated serum homocysteine Heparin-induced thrombocytopenia Other congenital or acquired thrombophilia Stroke (< 1 month) Elective arthroplasty Hip, pelvis, or leg fracture Acute spinal cord injury (< 1 month) Prophylaxis Regimen: Total Risk Factor Score Risk Level Prophylaxis Regimen 0-1 Low Early ambulation 2 Moderate Order ONE of the following: *Sequential Compression Device (SCD) *Heparin 5000 units SQ BID 3-4 Higher Order ONE of the following medications: *Heparin 5000 units SQ TID *Enoxaparin/Lovenox 40 mg SQ daily (WT < 150 kg, CrCl > 30 mL/min) *Enoxaparin/Lovenox 30 mg SQ daily (WT < 150 kg, CrCl > 10-29 mL/min) *Enoxaparin/Lovenox 30 mg SQ BID (WT < 150 kg, CrCl > 30 mL/min) AND/OR *Sequential Compression Device (SCD) 5 or more Highest Order ONE of the following medications: *Heparin 5000 units SQ TID (Preferred with Epidurals) *Enoxaparin/Lovenox 40 mg SQ daily (WT < 150 kg, CrCl > 30 mL/min) *Enoxaparin/Lovenox 30 mg SQ daily (WT < 150 kg, CrCl > 10-29 mL/min) *Enoxaparin/Lovenox 30 mg SQ BID (WT < 150 kg, CrCl > 30 mL/min) AND *Sequential Compression Device (SCD) Assessment and Plan - Assessment and Plan Plan: Assessment: 33-year-old male with severe neurologic deficits who presents with tachycardia and fever. My best assessment is that the patient had either a seizure or a cerebral storming event which led to his lactic acidosis and his febrile state. His tachycardia, fever, and lactate cleared very quickly with the administration of IV morphine. However, it is nearly impossible to rule out new sepsis, as the patient is clearly at high risk and he has healthcare associated with multiple indwelling devices, and the patient cannot provide any history to let us know if he is feeling ill. I think the most reasonable thing to do at this point is to admit him for 48 hours and if he does not clinically decline, it is unlikely that he is infected again. Patient's had significant infectious disease history, we will consult infectious disease for a further workup as he will likely need specialized ID assistance for his multiple resistant prior infections if he does in fact become septic. Active problems: Cerebral storming Possible seizures Fever Lactic acidosis Plan: Admit to ICU Trend lactate Consult infectious disease The patient was started on vancomycin and Zosyn in the emergency department. Although the patient was previously on Avicaz for resistant healthcare associated organisms, we will continue vancomycin and Zosyn at this juncture and await infectious disease input before we broaden further. Repeat blood, sputum, urine cultures If patient remains stable after 48 hours, I would strongly consider transitioning him out of an inpatient setting back to a nursing home facility Morphine and Ativan as needed for tachycardia, seizures, storming, is this has a long history of helping the patient. SCDs and continue home Eliquis Restart home tube feeding
[2018-06-26] MEDS ORDERED: Vancomycin Inj 1,000 MG in Sodium Chlor 0.9% Inj 250 ML IV.SIG ONE (15:00)
--- NOTE | 2018-06-26 15:43 | P.CONID ---
History of Present Illness Service: Infectious disease Consult date: 06/26/18 Requesting Physician: Heladio Garcia Reason for Consult: Evaluate patient with sepsis Primary Care Provider: UNKNOWN History of Present Illness: Patient seen and examined. Records reviewed. Patient is a 33-year-old male, who has anoxic brain damage, chronically has a trach in place, resides in the intermediate, brought into the hospital for evaluation of fever. And had any other accompanying signs and symptoms on this patient. Patient has had 2 hospitalization recently. One was May 22 - June 03, and at that time he was treated for pneumonia. His sputum culture grew a resistant Pseudomonas, and Providencia. On June 09, he was in the special procedure getting work done on his PEG tube when he developed hypotension and diaphoresis. He was readmitted to the hospital June 09, until June 24. At that time he was treated for Pseudomonas and E. coli ESBL positive sputum culture. He was just discharged June 24, and he was brought back in for evaluation of the fever. In the ED he was tachycardic, febrile up to 103, and had an elevated lactic acid. Patient is being admitted for evaluation and treatment of sepsis. His chest x-ray showing underinflated lungs with no acute infiltrate. His WBC is normal. Patient has no indwelling Nolasco catheter. His BP is okay. Infectious disease consultation has been requested to assist in evaluation and treatment of his sepsis. Review of Systems unobtainable due to mental status PMFSH - History History Provided By: Medical Record, Mid Level Business Analyst / EMT - Medical History Medical History: Medical History (Last Updated 06/26/18 @ 13:01 by Gladys Ruby) Tracheostomy dependent (Acute) GERD (gastroesophageal reflux disease) (Acute) Pancreatitis (Acute) Diabetes mellitus (Acute) Dyslipidemia (Acute) HTN (hypertension) (Acute) Seizure (Acute) DVT (deep venous thrombosis) (Acute) Anoxic brain damage (Acute) - Surgical History Surgical History: Surgical History (Last Updated 06/26/18 @ 13:01 by Gladys Ruby) PEG (percutaneous endoscopic gastrostomy) status (Acute) - Tobacco History Second Hand Smoke Exposure: No Smoking Status: Former smoker - Alcohol History How Often Do You Have a Drink Containing Alcohol: Never - Substance Use History Substance History: No History of Abuse - Travel History Recent Travel in the [facility] Within the Last 8 Weeks: No Recent Travel Out of the Country Within the Last 8 Weeks: No - Immunization History Tetanus Immunization: Unable to Assess Hx Influenza Vaccine This Season: Unable to Assess Medications and Allergies Active Medications: Active Medications Al Hydroxide/Mg Hydroxide (Milk Of Tammy Katz) 30 ml PO Q12H PRN PRN Reason: Mild Constipation Albuterol (Duoneb Neb (Prn)) 1 ampul NEB Q2HR NEB PRN PRN Reason: WHEEZING Bisacodyl (Dulcolax Supp) 10 mg RECTAL DAILY PRN PRN Reason: SEVERE CONSITIPATION Chlorhexidine Gluconate (Chlorhexidine 2% Cloth) 3 pack TOPICAL DAILY@0400 SHAYNA Stop: 07/02/18 03:59 Chlorhexidine Gluconate (Chlorhexidine 2% Cloth) 3 pack TOPICAL DAILY@0400 PRN PRN Reason: Extra cloth needed Stop: 07/02/18 03:59 Famotidine (Pepcid) 20 mg PO BID [facility] Heparin Sodium (Porcine) (Heparin Inj) 5,000 units SQ Q8H [facility] Sodium Chloride (Ns Inj) 1,000 mls @ 0 mls/hr IV.SIG .Q0M [facility] Last Infusion: 06/26/18 14:19 Dose: Infused Sodium Chloride (Ns Inj) 1,000 mls @ 0 mls/hr IV.SIG BOLUS SHAYNA Stop: 06/27/18 14:31 Last Admin: 06/26/18 14:25 Dose: 1,000 mls/hr Vancomycin HCl 1,000 mg/ (Sodium Chloride) 250 mls @ 250 mls/hr IV.SIG ONCE ONE Stop: 06/26/18 15:59 Last Admin: 06/26/18 14:46 Dose: 250 mls/hr Magnesium Sulfate Inj 4 gm/ (Sodium Chloride) 100 mls @ 50 mls/hr IV.SIG UNSCH PRN PRN Reason: For Magnesium 0.9 - 1.1 mg/dL Magnesium Sulfate Inj 2 gm/ (Sodium Chloride) 100 mls @ 50 mls/hr IV.SIG UNSCH PRN PRN Reason: For Magnesium 1.2 - 1.6 mg/dL Potassium Chloride (Kcl 40 Meq Premix Inj) 40 meq in 100 mls @ 50 mls/hr IV.SIG Q2H PRN PRN Reason: For Potassium 2.8 - 3.2 mEq/L Potassium Chloride (Kcl 20 Meq Premix Inj) 20 meq in 100 mls @ 50 mls/hr IV.SIG Q2H PRN PRN Reason: For Potassium 3.3 - 3.5 mEq/L Potassium Chloride (Kcl 20 Meq Premix Inj) 20 meq in 100 mls @ 50 mls/hr IV.SIG Q2H PRN PRN Reason: For Potassium 2.8 - 3.2 mEq/L Potassium Phosphate 30 mmol/ (Sodium Chloride) 260 mls @ 42 mls/hr IV.SIG UNSCH PRN PRN Reason: SEE LABEL COMMENTS Sodium Phosphate 30 mmol/ (Sodium Chloride) 260 mls @ 42 mls/hr IV.SIG UNSCH PRN PRN Reason: For Phosphorus < 2.5 mg/dL Piperacillin/Tazobactam/Dextrose (Zosyn 3.375 Gm Premix) 50 mls @ 100 mls/hr IV.SIG Q6H [facility] Potassium Chloride (Kcl 40 Meq Premix Inj) 40 meq in 100 mls @ 25 mls/hr IV.SIG UNSCH PRN PRN Reason: For Potassium 3.3 - 3.5 mEq/L Lactulose (Lactulose Liq) 30 ml PO DAILY PRN PRN Reason: SEVERE CONSITIPATION Lorazepam (Ativan Inj) 1 mg IV.PUSH Q1H PRN PRN Reason: Agitation/sedation Magnesium Oxide (Mag-Ox) 800 mg PO UNSCH PRN PRN Reason: For Magnesium 1.2 - 1.6 mg/dL Morphine Sulfate (Morphine Inj) 2 mg IV.PUSH Q4H PRN PRN Reason: pain 6-10 or agitation Ondansetron HCl (Zofran Inj) 4 mg IV.PUSH Q6H PRN PRN Reason: NAUSEA OR VOMITING Potassium Bicarb/Potassium Chloride (K-Lyte Cl Eff) 50 meq PO UNSCH PRN PRN Reason: For Potassium 3.3 - 3.5 mEq/L Potassium Phosphate (K-Phos Original) 2,000 mg PO Q4H PRN PRN Reason: Phosphorus Less Than 2.5 mg/dL Potassium Phosphate (K-Phos Original) 2,000 mg PO UNSCH PRN PRN Reason: SEE LABEL COMMENTS Senna/Docusate Sodium (Shala-Colace) 1 tab PO BID [facility] Sennosides (Senokot) 17.2 mg PO Q12H PRN PRN Reason: Moderate Constipation Sodium Chloride (Ns Flush) 2 ml IV.FLUSH BID [facility] Sodium Chloride (Ns Flush) 2 ml IV.FLUSH UNSCH PRN PRN Reason: FLUSH AFTER USING IV ACCESS Allergies Allergy/AdvReac Type Severity Reaction Status Date / Time haloperidol AdvReac Severe Seizures Verified 06/09/18 09:58 *MDRO Multi-Drug Resistant AdvReac Unknown Dry Mucus Uncoded 06/09/18 09:58 Organism Membranes Home Medications Medication Instructions Recorded Confirmed Type apixaban [Eliquis] 5 mg FEEDING TUBE BID 05/22/18 06/26/18 History glycopyrrolate 1 mg FEEDING TUBE Q8H PRN 05/22/18 06/26/18 History hyoscyamine sulfate [Levsin] 0.25 mg FEEDING TUBE Q4H PRN 05/22/18 06/26/18 History levetiracetam 1,000 mg FEEDING TUBE Q12H 05/22/18 06/26/18 History loratadine [Claritin] 10 mg FEEDING TUBE DAILY 05/22/18 06/26/18 History lorazepam 1 mg/kg IM Q6HR PRN 05/22/18 06/26/18 History multivitamin with minerals 5 ml FEEDING TUBE DAILY 05/22/18 06/26/18 History oxycodone 5 mg PO Q6HR PRN 06/26/18 06/26/18 History Exam Vital signs: Vital Signs 06/26/18 12:51 06/26/18 13:52 06/26/18 13:54 Temperature 103.5 F H Pulse Rate 199 H 159 H Respiratory Rate 30 H 30 H Blood Pressure 174/97 H Pulse Oximetry 100 100 100 06/26/18 14:04 Temperature Pulse Rate 105 H Respiratory Rate 24 Blood Pressure 117/60 Pulse Oximetry 99 Intake & Output 06/25/18 06/26/18 06/26/18 18:59 06:59 18:59 Intake Total 1050 / 1050 Balance 1050 / 1050 Weight 77.111 kg Intake: IV 1050 / 1050 Zosyn 3.375 GM Premix 50 ML @ 50 / 50 100 mls/hr IV.SIG ONCE ONE Rx#: [id number] NS Inj 1,000 ML @ Wide Open IV. 1000 / 1000 SIG .Q0M [facility] Rx#:[id number] Narrative: Physical Examination GENERAL: Patient is a well-nourished, well-developed male, awake, but no interaction, has posturing, drooling clear secretions from his mouth. Has trach in place, not in respiratory distress. SKIN: Warm and moist. No generalized rash, no ecchymoses and no evidence of embolic lesions. HEAD: Atraumatic. Normocephalic. No temporal wasting, or tenderness. EYES: [place] conjunctiva. No petechia or hemorrhage. Pupils equal, round and reactive to light. No scleral icterus. No injection or drainage. EARS, NOSE AND THROAT: Nose without bleeding or purulent nasal discharge. Mucous membranes moist. A lot of oral secretions, drooling. . NECK: Tracheostomy site ok, has drainage in the trach dressing, looks light yellow. CARDIOVASCULAR: Regular rate and rhythm, tachycardic. No murmurs, rubs or gallops heard RESPIRATORY: Clear to auscultation. Breath sounds equal bilaterally. No rales , wheezing or rhonchi. Decreased at bases ABDOMEN: Soft, non-tender, nondistended. Bowel sounds present and normoactive. No guarding. No rebound. No organomegaly. EXTREMITIES: No clubbing, cyanosis, or edema. No joint effusion, has good ROM. Both feet plantar flexed. IV sites on both feet NEUROLOGICAL: Awake, no interaction. Posturing. UE and LE spastic. PSYCHIATRIC: Unable to assess. LINE: No evidence of infection Results - Labs CBC & Chem 7: 06/26/18 13:10 06/26/18 13:10 Labs: Laboratory Results - last 24 hr 06/26/18 06/26/18 06/26/18 13:10 13:10 13:10 WBC 9.3 RBC 5.07 Hgb 15.9 Hct 47.7 MCV 94.0 MCH 31.3 MCHC 33.3 RDW 13.1 Plt Count 325 D MPV 11.4 H Neut % (Auto) 59.8 Lymph % (Auto) 31.3 [place] % (Auto) 6.8 Eos % (Auto) 0.9 Baso % (Auto) 1.2 Neut # (Auto) 5.6 Lymph # (Auto) 2.9 [place] # (Auto) 0.6 Eos # (Auto) 0.1 Baso # (Auto) 0.1 WBC Differential . Differential Comment Auto diff final PT 11.0 INR 1.1 APTT 23.6 L Sodium 141 Potassium 4.2 Chloride 103 Carbon Dioxide 24.1 Anion Gap 14 BUN 16 Creatinine 1.25 Estimated GFR 82 L Random Glucose 142 H Lactic Acid Calcium 9.7 Total Bilirubin 0.3 AST 24 ALT 71 Alkaline Phosphatase 109 Troponin I Less than 0.02 L Total Protein 9.4 H Albumin 4.4 06/26/18 13:20 WBC RBC Hgb Hct MCV MCH MCHC RDW Plt Count MPV Neut % (Auto) Lymph % (Auto) [place] % (Auto) Eos % (Auto) Baso % (Auto) Neut # (Auto) Lymph # (Auto) [place] # (Auto) Eos # (Auto) Baso # (Auto) WBC Differential Differential Comment PT INR APTT Sodium Potassium Chloride Carbon Dioxide Anion Gap BUN Creatinine Estimated GFR Random Glucose Lactic Acid 9.0 H* Calcium Total Bilirubin AST ALT Alkaline Phosphatase Troponin I Total Protein Albumin - Imaging Impressions Chest X-Ray 06/26/18 13:06 CONCLUSION: Underinflated examination without an acute abnormality identified. 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
[2018-06-26 15:58] LABS: ABG Base Excess -2.7 mmol/L (-2-2); ABG PCO2 43 mmHg (38-42); ABG PO2 176 mmHg (61-120)
[2018-06-26] MEDS: Morphine Sulfate Inj 2 MG/ML Vial IV.PUSH PRN (18:20)
[2018-06-26] MEDS: SODIUM CHLOR 0.9% IV.SIG SCH (18:20)
[2018-06-26] MEDS: CEFTOLOZANE IV.SIG SCH (18:20)
[2018-06-26] MEDS: TAZOBACTAM IV.SIG SCH (18:20)
[2018-06-26] MEDS ORDERED: Piperacil/Tazo 3.375 GM Premix 50 ML IV.SIG SCH (20:00)
[2018-06-26] MEDS: Famotidine 20 MG Tablet PO SCH (21:24)
[2018-06-26] MEDS: Senna/Docusate Sodium 8.6/50 MG Tablet PO SCH (21:24)
[2018-06-27] MEDS: TAZOBACTAM IV.SIG SCH ×3 (00:19→16:14)
[2018-06-27] MEDS: CEFTOLOZANE IV.SIG SCH ×3 (00:19→16:14)
[2018-06-27] MEDS: SODIUM CHLOR 0.9% IV.SIG SCH ×3 (00:19→16:14)
[2018-06-27] MEDS: Morphine Sulfate Inj 2 MG/ML Vial IV.PUSH PRN ×3 (03:00→21:49)
[2018-06-27] MEDS ORDERED: Chlorhexidine Gluconate 2% 1 Pack (2 Cloths) TOPICAL PRN (04:00)
[2018-06-27 05:35] LABS: Hemoglobin 12.8 gm/dL (13.0-17.0); Mean Corpuscular HGB Conc 33.7 % (32.0-36.0); Mean Corpuscular Hemoglobin 31.2 pg (27.0-34.0); Mean Corpuscular Volume 92.5 fL (80.0-100.0); Mean Platelet Volume 11.1 fL (7.0-11.0); Platelet Count 158 th/mm3 (150-450); White Blood Count 5.2 th/mm3 (4.0-11.0)
[2018-06-27] MEDS: Chlorhexidine Gluconate 2% 1 Pack (2 Cloths) TOPICAL SCH (06:09)
[2018-06-27 06:41] LABS: Anion Gap 9 meq/L (5-15); Blood Urea Nitrogen 8 mg/dL (7-18); Calcium 8.4 mg/dL (8.5-10.1); Carbon Dioxide 25.9 meq/L (21.0-32.0); Chloride 109 meq/L (98-107); Glomerular Filtration Rate Greater Than 89 mL/min (>89); Glucose,Random 92 mg/dL (74-106); Sodium 144 meq/L (136-145)
--- NOTE | 2018-06-27 08:04 | P.PNIM ---
Subjective Interval history: Patient seen and examined this morning. Temperature 98.2, pulse ranging between the 162, Mr. 817-21, blood pressure 109-126/70 980, pulse ox 100%. Discussed with nurse no seizure-like activity overnight. Patient is noncommunicative nor follows commands. At this time awaiting results of cultures. Physical Exam Vital signs: Vital Signs 06/26/18 12:51 06/26/18 13:52 06/26/18 13:54 Temperature 103.5 F H Pulse Rate 199 H 159 H Respiratory Rate 30 H 30 H Blood Pressure 174/97 H Pulse Oximetry 100 100 100 06/26/18 14:04 06/26/18 15:00 06/26/18 17:40 Temperature Pulse Rate 105 H 92 H 87 Respiratory Rate 24 20 24 Blood Pressure 117/60 122/67 120/53 L Pulse Oximetry 99 100 100 06/26/18 18:38 06/26/18 19:00 06/26/18 20:00 Temperature 98.5 F 98.6 F Pulse Rate 76 69 86 Respiratory Rate 6 L 16 19 Blood Pressure Pulse Oximetry 100 100 77 L 06/26/18 20:20 06/26/18 21:00 06/26/18 22:00 Temperature Pulse Rate 69 60 Respiratory Rate 22 21 Blood Pressure Pulse Oximetry 100 99 100 06/26/18 22:37 06/26/18 23:00 06/27/18 00:00 Temperature Pulse Rate 82 72 78 Respiratory Rate 19 17 21 Blood Pressure 123/68 Pulse Oximetry 100 100 100 06/27/18 00:40 06/27/18 01:00 06/27/18 02:00 Temperature Pulse Rate 86 78 79 Respiratory Rate 20 25 H 22 Blood Pressure 108/51 L 101/73 137/65 Pulse Oximetry 100 100 100 06/27/18 03:00 06/27/18 04:00 06/27/18 05:00 Temperature 98.2 F Pulse Rate 78 62 56 L Respiratory Rate 18 21 17 Blood Pressure 127/88 126/80 109/79 Pulse Oximetry 100 100 100 06/27/18 06:00 06/27/18 06:01 06/27/18 07:00 Temperature Pulse Rate 56 L 55 L 81 Respiratory Rate 20 19 22 Blood Pressure 131/59 L 91/62 L Pulse Oximetry 100 100 97 Intake & Output 06/26/18 06/27/18 06/27/18 18:59 06:59 18:59 Intake Total 3300 / 3300 911 / 911 Output Total 1000 / 1000 Balance 3300 / 3300 -89 / -89 Weight 77.111 kg 63.5 kg Intake: IV 3300 / 3300 200 / 200 Zerbaxa Inj 1,500 MG In NS Inj 200 / 200 100 ML @ 100 mls/hr IV.SIG Q8H [facility] Rx#:[id number] Zosyn 3.375 GM Premix 50 ML @ 50 / 50 100 mls/hr IV.SIG ONCE ONE Rx#: [id number] NS Inj 1,000 ML @ Wide Open IV. 3000 / 3000 SIG BOLUS [facility] Rx#:[id number] Vancomycin Inj 1,000 MG In NS 250 / 250 Inj 250 ML @ 250 mls/hr IV.SIG ONCE ONE Rx#:[id number] Tube Feeding 711 / 711 Output: Urine 1000 / 1000 Narrative: GENERAL: Young male, lying in bed, encephalopathic, at baseline per chart review HEENT: Normocephalic. Atraumatic. Pupils equal, round, reactive, conjugate. Mucous membranes are moist NECK: Trachea is midline. There is no JVD. Tracheostomy is in place. CHEST: Equal chest rise. Trach collar oxygen. CARDIOVASCULAR: Normal rate of 72, regular rhythm. Sinus. ABDOMEN: Soft, nontender, nondistended. No guarding. PEG tube in place. MUSCULOSKELETAL: Pulses 2+. No peripheral edema. Contractures noted. NEUROLOGICAL: RASS -3. Tracts with eyes. Withdraws to pain. Neurologic exam is at baseline for the patient from my multiple prior neurologic exams. Results - Labs CBC & Chem 7: 06/27/18 05:04 06/27/18 05:04 Laboratory Results - last 24 hr 06/26/18 06/26/18 06/26/18 13:10 13:10 13:10 WBC 9.3 RBC 5.07 Hgb 15.9 Hct 47.7 MCV 94.0 MCH 31.3 MCHC 33.3 RDW 13.1 Plt Count 325 D MPV 11.4 H Neut % (Auto) 59.8 Lymph % (Auto) 31.3 [place] % (Auto) 6.8 Eos % (Auto) 0.9 Baso % (Auto) 1.2 Neut # (Auto) 5.6 Lymph # (Auto) 2.9 [place] # (Auto) 0.6 Eos # (Auto) 0.1 Baso # (Auto) 0.1 WBC Differential . Differential Comment Auto diff final PT 11.0 INR 1.1 APTT 23.6 L Puncture Site Patient Temperature O2 Saturation ABG pH ABG pCO2 ABG pO2 ABG HCO3 ABG O2 Content ABG Base Excess ABG Methemoglobin Hemoglobin Carboxyhemoglobin O2 Delivery Device Liter Flow Vent Setting Inspired O2 Critical Value Sodium 141 Potassium 4.2 Chloride 103 Carbon Dioxide 24.1 Anion Gap 14 BUN 16 Creatinine 1.25 Estimated GFR 82 L POC Glucose Random Glucose 142 H Lactic Acid Calcium 9.7 Total Bilirubin 0.3 AST 24 ALT 71 Alkaline Phosphatase 109 Troponin I Less than 0.02 L Total Protein 9.4 H Albumin 4.4 Nasal Screen MRSA (PCR) 06/26/18 06/26/18 06/26/18 13:20 15:40 15:46 WBC RBC Hgb Hct MCV MCH MCHC RDW Plt Count MPV Neut % (Auto) Lymph % (Auto) [place] % (Auto) Eos % (Auto) Baso % (Auto) Neut # (Auto) Lymph # (Auto) [place] # (Auto) Eos # (Auto) Baso # (Auto) WBC Differential Differential Comment PT INR APTT Puncture Site Right brachial Patient Temperature 98.6 O2 Saturation 98 ABG pH 7.34 L ABG pCO2 43 H ABG pO2 176 H ABG HCO3 22 ABG O2 Content 17.9 ABG Base Excess -2.7 L ABG Methemoglobin 0.6 Hemoglobin 12.8 Carboxyhemoglobin 0.6 O2 Delivery Device Ambu mask Liter Flow 10.00 Vent Setting Tpiece Inspired O2 40 Critical Value No Sodium Potassium Chloride Carbon Dioxide Anion Gap BUN Creatinine Estimated GFR POC Glucose Random Glucose Lactic Acid 9.0 H* 2.6 H Calcium Total Bilirubin AST ALT Alkaline Phosphatase Troponin I Total Protein Albumin Nasal Screen MRSA (PCR) 06/26/18 06/26/18 06/26/18 18:15 18:41 20:11 WBC RBC Hgb Hct MCV MCH MCHC RDW Plt Count MPV Neut % (Auto) Lymph % (Auto) [place] % (Auto) Eos % (Auto) Baso % (Auto) Neut # (Auto) Lymph # (Auto) [place] # (Auto) Eos # (Auto) Baso # (Auto) WBC Differential Differential Comment PT INR APTT Puncture Site Patient Temperature O2 Saturation ABG pH ABG pCO2 ABG pO2 ABG HCO3 ABG O2 Content ABG Base Excess ABG Methemoglobin Hemoglobin Carboxyhemoglobin O2 Delivery Device Liter Flow Vent Setting Inspired O2 Critical Value Sodium Potassium Chloride Carbon Dioxide Anion Gap BUN Creatinine Estimated GFR POC Glucose 79 92 Random Glucose Lactic Acid Calcium Total Bilirubin AST ALT Alkaline Phosphatase Troponin I Total Protein Albumin Nasal Screen MRSA (PCR) Mrsa detected 06/26/18 06/27/18 06/27/18 23:17 05:04 05:04 WBC 5.2 RBC 4.10 L Hgb 12.8 L D Hct 38.0 L MCV 92.5 MCH 31.2 MCHC 33.7 RDW 13.0 Plt Count 158 D MPV 11.1 H Neut % (Auto) Lymph % (Auto) [place] % (Auto) Eos % (Auto) Baso % (Auto) Neut # (Auto) Lymph # (Auto) [place] # (Auto) Eos # (Auto) Baso # (Auto) WBC Differential Differential Comment PT INR APTT Puncture Site Patient Temperature O2 Saturation ABG pH ABG pCO2 ABG pO2 ABG HCO3 ABG O2 Content ABG Base Excess ABG Methemoglobin Hemoglobin Carboxyhemoglobin O2 Delivery Device Liter Flow Vent Setting Inspired O2 Critical Value Sodium 144 Potassium 4.0 Chloride 109 H Carbon Dioxide 25.9 Anion Gap 9 BUN 8 Creatinine 0.56 L Estimated GFR Greater than 89 POC Glucose 94 Random Glucose 92 Lactic Acid Calcium 8.4 L D Total Bilirubin AST ALT Alkaline Phosphatase Troponin I Total Protein Albumin Nasal Screen MRSA (PCR) - Imaging Impressions Chest X-Ray 06/26/18 13:06 CONCLUSION: Underinflated examination without an acute abnormality identified. Assessment and Plan - Assessment (1) Sepsis Code(s): A41.9 - Sepsis, unspecified organism Status: Acute (2) Anoxic encephalopathy Code(s): G93.1 - Anoxic brain damage, not elsewhere classified Status: Chronic (3) Seizure Code(s): R56.9 - Unspecified convulsions Status: Acute (4) Anoxic brain damage Code(s): G93.1 - Anoxic brain damage, not elsewhere classified Status: Acute - Plan This is a 33-year-old male wanted to the critical care medicine service who has a history of severe neurologic deficit and 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 Sepsis: -Continue IV vancomycin -Continue Zerbaxa to cover MDRO GNR -Follow-up on blood cultures and urine cultures -Continue to follow temperatures and currently afebrile -Continue to follow labs Seizure-like activity: -Continue Ativan as needed -Continue morphine as needed Chronic encephalopathic: -Continue tracheostomy -Continue tube feeds DVT prophylaxis: -SCDs and continue Eliquis Case Management consulted to help with Discharge planning Code Status: Full code Discussed Condition With: Nurse Discharge Planning: Likely discharge back to residential facility frequent readmissions could be difficult discharge, have consulted case management. Will need clearance by infectious disease prior to discharge (1) Sepsis Qualifiers: Sepsis type: sepsis due to unspecified organism Qualified Code(s): A41.9 - Sepsis, unspecified organism
--- NOTE | 2018-06-27 08:51 | P.PNID ---
Subjective Remarks: Patient is a 33-year-old male, who has anoxic brain damage, chronically has a trach in place, [facility], brought into the hospital for evaluation of fever. And had any other accompanying signs and symptoms on this patient. Patient has had 2 hospitalization recently. One was May 22 - June 03, and at that time he was treated for pneumonia. His sputum culture grew a resistant Pseudomonas, and Providencia. On June 09, he was in the special procedure getting work done on his PEG tube when he developed hypotension and diaphoresis. He was readmitted to the hospital June 09, until June 24. At that time he was treated for Pseudomonas and E. coli ESBL positive sputum culture. He was just discharged June 24, and he was brought back in for evaluation of the fever. In the ED he was tachycardic, febrile up to 103, and had an elevated lactic acid. Patient is being admitted for evaluation and treatment of sepsis. His chest x-ray showing underinflated lungs with no acute infiltrate. His WBC is normal. Patient has no indwelling Nolasco catheter. His BP is okay. Infectious disease consultation has been requested to assist in evaluation and treatment of his sepsis. Notes reviewed D/W RN Temps ok BP ok HR lower WBC normal UA nt done yet C/S pending CXR underinflated Trach secretions look beige Has a lot of oral secretions Antibiotics: Vancomycin Zerbaxa Lines: PIV Past Medical History: Tracheostomy dependent (Acute) GERD (gastroesophageal reflux disease) (Acute) Pancreatitis (Acute) Diabetes mellitus (Acute) Dyslipidemia (Acute) HTN (hypertension) (Acute) Seizure (Acute) DVT (deep venous thrombosis) (Acute) Anoxic brain damage (Acute) PEG (percutaneous endoscopic gastrostomy) status (Acute) Allergies/Adverse Reactions: Allergies haloperidol Adverse Reaction (Severe, Verified 06/09/18 09:58) Seizures *MDRO Multi-Drug Resistant Organism Adverse Reaction (Unknown, Uncoded 06/09/18 09:58) Dry Mucus Membranes MRSA (sputum) - 04/25/16 & 05/23/16 MRSA PCR Screen POSITIVE - 04/25/2016 ESBL+E.Coli (blood-05/22/16) Objective Vital Signs 06/26/18 12:51 06/26/18 13:52 06/26/18 13:54 Temperature 103.5 F H Pulse Rate 199 H 159 H Respiratory Rate 30 H 30 H Blood Pressure 174/97 H Pulse Oximetry 100 100 100 06/26/18 14:04 06/26/18 15:00 06/26/18 17:40 Temperature Pulse Rate 105 H 92 H 87 Respiratory Rate 24 20 24 Blood Pressure 117/60 122/67 120/53 L Pulse Oximetry 99 100 100 06/26/18 18:38 06/26/18 19:00 06/26/18 20:00 Temperature 98.5 F 98.6 F Pulse Rate 76 69 86 Respiratory Rate 6 L 16 19 Blood Pressure Pulse Oximetry 100 100 77 L 06/26/18 20:20 06/26/18 21:00 06/26/18 22:00 Temperature Pulse Rate 69 60 Respiratory Rate 22 21 Blood Pressure Pulse Oximetry 100 99 100 06/26/18 22:37 06/26/18 23:00 06/27/18 00:00 Temperature Pulse Rate 82 72 78 Respiratory Rate 19 17 21 Blood Pressure 123/68 Pulse Oximetry 100 100 100 06/27/18 00:40 06/27/18 01:00 06/27/18 02:00 Temperature Pulse Rate 86 78 79 Respiratory Rate 20 25 H 22 Blood Pressure 108/51 L 101/73 137/65 Pulse Oximetry 100 100 100 06/27/18 03:00 06/27/18 04:00 06/27/18 05:00 Temperature 98.2 F Pulse Rate 78 62 56 L Respiratory Rate 18 21 17 Blood Pressure 127/88 126/80 109/79 Pulse Oximetry 100 100 100 06/27/18 06:00 06/27/18 06:01 06/27/18 07:00 Temperature Pulse Rate 56 L 55 L 81 Respiratory Rate 20 19 22 Blood Pressure 131/59 L 91/62 L Pulse Oximetry 100 100 97 Intake & Output 06/26/18 06/27/18 06/27/18 18:59 06:59 18:59 Intake Total 3300 / 3300 911 / 911 Output Total 1000 / 1000 Balance 3300 / 3300 -89 / -89 Weight 77.111 kg 63.5 kg Intake: IV 3300 / 3300 200 / 200 Zerbaxa Inj 1,500 MG In NS Inj 200 / 200 100 ML @ 100 mls/hr IV.SIG Q8H [facility] Rx#:[id number] Zosyn 3.375 GM Premix 50 ML @ 50 / 50 100 mls/hr IV.SIG ONCE ONE Rx#: [id number] NS Inj 1,000 ML @ Wide Open IV. 3000 / 3000 SIG BOLUS [facility]AYNA Rx#:[id number] Vancomycin Inj 1,000 MG In NS 250 / 250 Inj 250 ML @ 250 mls/hr IV.SIG ONCE ONE Rx#:[id number] Tube Feeding 711 / 711 Output: Urine 1000 / 1000 06/26/18 16:00 Sputum - Tracheal Aspirate Gram Stain - Final 06/26/18 16:00 Sputum - Tracheal Aspirate Sputum Culture - Pending 06/26/18 13:10 Catheterized Urine Urine Culture - Pending 06/26/18 12:55 Blood - Peripheral Aerobic Blood Culture - Pending 06/26/18 12:55 Blood - Peripheral Anaerobic Blood Culture - Pending 06/26/18 13:20 Blood - Peripheral Aerobic Blood Culture - Pending 06/26/18 13:20 Blood - Peripheral Anaerobic Blood Culture - Pending Lab - Hematology Results 06/26/18 06/27/18 13:10 05:04 WBC 9.3 5.2 RBC 5.07 4.10 L Hgb 15.9 12.8 L D Hct 47.7 38.0 L MCV 94.0 92.5 MCH 31.3 31.2 MCHC 33.3 33.7 RDW 13.1 13.0 Plt Count 325 D 158 D MPV 11.4 H 11.1 H Neut % (Auto) 59.8 Lymph % (Auto) 31.3 [place] % (Auto) 6.8 Eos % (Auto) 0.9 Baso % (Auto) 1.2 Neut # (Auto) 5.6 Lymph # (Auto) 2.9 [place] # (Auto) 0.6 Eos # (Auto) 0.1 Baso # (Auto) 0.1 WBC Differential . Differential Comment Auto diff final Lab - Chemistry Results 06/26/18 06/26/18 06/26/18 13:10 13:20 15:40 Sodium 141 Potassium 4.2 Chloride 103 Carbon Dioxide 24.1 Anion Gap 14 BUN 16 Creatinine 1.25 Estimated GFR 82 L POC Glucose Random Glucose 142 H Lactic Acid 9.0 H* 2.6 H Calcium 9.7 Total Bilirubin 0.3 AST 24 ALT 71 Alkaline Phosphatase 109 Troponin I Less than 0.02 L Total Protein 9.4 H Albumin 4.4 06/26/18 06/26/18 06/26/18 18:41 20:11 23:17 Sodium Potassium Chloride Carbon Dioxide Anion Gap BUN Creatinine Estimated GFR POC Glucose 79 92 94 Random Glucose Lactic Acid Calcium Total Bilirubin AST ALT Alkaline Phosphatase Troponin I Total Protein Albumin 06/27/18 05:04 Sodium 144 Potassium 4.0 Chloride 109 H Carbon Dioxide 25.9 Anion Gap 9 BUN 8 Creatinine 0.56 L Estimated GFR Greater than 89 POC Glucose Random Glucose 92 Lactic Acid Calcium 8.4 L D Total Bilirubin AST ALT Alkaline Phosphatase Troponin I Total Protein Albumin Imaging: ITS Impressions Chest X-Ray 06/26/18 13:06 CONCLUSION: Underinflated examination without an acute abnormality identified. Physical Exam: GENERAL: awake, but no interaction, has posturing, drooling clear secretions from his mouth. Has trach in place, not in respiratory distress. SKIN: Warm and moist. No generalized rash, no ecchymoses and no evidence of embolic lesions. HEAD: Atraumatic. Normocephalic. No temporal wasting, or tenderness. EYES: [place] conjunctiva. No petechia or hemorrhage. Pupils equal, round and reactive to light. No scleral icterus. No injection or drainage. EARS, NOSE AND THROAT: Nose without bleeding or purulent nasal discharge. Mucous membranes moist. A lot of oral secretions, drooling. . NECK: Tracheostomy site ok, has drainage in the trach dressing, looks light yellow. CARDIOVASCULAR: Regular rate and rhythm, tachycardic. No murmurs, rubs or gallops heard RESPIRATORY: Clear to auscultation. Breath sounds equal bilaterally. No rales , wheezing or rhonchi. Decreased at bases ABDOMEN: Soft, non-tender, nondistended. Bowel sounds present and normoactive. No guarding. No rebound. No organomegaly. EXTREMITIES: No clubbing, cyanosis, or edema. No joint effusion, has good ROM. Both feet plantar flexed. IV sites on both feet NEUROLOGICAL: Awake, no interaction. Posturing. UE and LE spastic. : Has condom cath in place, urine looks clear PSYCHIATRIC: Unable to assess. LINE: No evidence of infection Assessment and Plan - Plan Impression Sepsis on presentation (fevers, tachycardia, lactic acidosis) - CXR ok, ?plugging, has a lot of secretions - no nolasco - no lines - chronic trach Anoxic encephalopathy, in chronic vegetative state Chronic trach Infections with multiple MDRO Recommendation Continue IV Vanco IV Zerbaxa to cover MDRO GNR Get UA and C/S Follow C/S Follow temps Monitor progress D/W RN
[2018-06-27] MEDS: Famotidine 20 MG Tablet PO SCH ×2 (08:54→23:00)
[2018-06-27] MEDS: Loratadine 10 MG Tablet G-TUBE SCH (08:54)
[2018-06-27] MEDS: Senna/Docusate Sodium 8.6/50 MG Tablet PO SCH ×2 (08:54→23:00)
--- NOTE | 2018-06-27 11:05 | P.DIET ---
Nutritional Evaluation Type of nutrition evaluation: initial Nutrition consult regarding: Tube Feeding Nutrition [place]: [facility] [place] 06/26 [facility] [place] Objective - Diagnosis Sepsis, Lactic Acidosis - Objective [place] body weight: 70 kg % IBW: 91 Body Weight Used for Calculations: Actual (63.5kg) Energy Needs - Lower Range (kCal/kg): 28 Energy Needs - Upper Range (kCal/kg): 33 Lower Limit kCal/kg (kCals): 1,778 Upper Limit kCal/kg (kCals): 2,096 Lower Limit Protein Factor (Grams per Kg): 1.2 Upper Limit Protein Factor (Grams per Kg): 1.5 Lower Protein Needs (Protein): 76 Upper Protein Needs (Protein): 95 Fluid Factor (ml/kg): 33 Estimated Fluid Needs (ml): 2,096 Dietitian Reviewed in Medical Record: Curent medications, Intake & Output, Labs , Medical history, Tube feeding Diet Order: TF only Objective Comments: PMH: Anoxic Brain Damage, Trach dependent with PEG, DM, DVT, HLD, HTN, Pancreatitis, seizure, GERD Meds include: Multivit w/iron, Labs include: Lactic Acid 2.6 -BM Assessment Assessment: Pt at nutritional risk r/t current clinical status and need for a TF for nutrition support. Pt trach dependent with PEG for TF. Pt just d/c'd a few days ago, readmitted for sepsis, lactic acidosis. Although pt has hx of DM, glucose levels run in the normal range. TF Jevity 1.5 started per MD. A goal rate fo 55 ml/hr is necessary to meet pt's nutritional needs providing 1980kcals, 84gms protein and 1003mls free water. Will monitor TF tolerance, clinical course. Recommendations: TF Jevity 1.5 with goal rate 55 ml/hr Dietitian to Monitor: Lab values, Tube feeding tolerance, Weight change, Medical course
--- NOTE | 2018-06-27 14:11 | ECG ---
Date Performed: 06/26/2018 Time Performed: 14:07:30 PTAGE: 33 years EKG: SINUS TACHYCARDIA POSSIBLE LEFT ATRIAL ENLARGEMENT ST ELEVATION, PROBABLY EARLY REPOLARIZAT ION ABNORMAL RHYTHM ECG PREVIOUS TRACING : 06/20/2018 16.27 Compared to previous tracing, sinus rate is faster DOCTOR: Nitin Johnston Interpretating Date/Time 06/27/2018 14:09:38
[2018-06-27] MEDS: Multivitamins/Iron Drops (Fe=10 MG/ML) 50 ML Bottle G-TUBE SCH (17:29)
[2018-06-27 19:34] LABS: Bilirubin,Urine Negative (Negative); Clarity,Urine Clear (Clear); Color,Urine Yellow (Yellw/Straw); Glucose,Urine (UA) Negative (Negative); Hyaline Casts,Urine 1 /lpf (0-3); Leukocyte Esterase,Urine Negative (Negative); Mucus,Urine Few /lpf (Occasional); Nitrite,Urine Negative (Negative); Specific Gravity,Urine 1.019 (1.002-1.035)
[2018-06-27] MEDS: Dextrose 5%/Lactated Ringer's 1,000 ML IV.CONT SCH (23:31)
[2018-06-28] MEDS: Morphine Sulfate Inj 2 MG/ML Vial IV.PUSH PRN ×4 (01:44→20:05)
[2018-06-28] MEDS: CEFTOLOZANE IV.SIG SCH ×3 (01:45→18:44)
[2018-06-28] MEDS: TAZOBACTAM IV.SIG SCH ×3 (01:45→18:44)
[2018-06-28] MEDS: SODIUM CHLOR 0.9% IV.SIG SCH ×3 (01:45→18:44)
[2018-06-28] MEDS: Chlorhexidine Gluconate 2% 1 Pack (2 Cloths) TOPICAL SCH (04:40)
[2018-06-28 07:41] LABS: Alanine Aminotransferase 54 U/L (12-78); Albumin 3.6 g/dL (3.4-5.0); Alkaline Phosphatase 101 U/L (45-117); Anion Gap 11 meq/L (5-15); Aspartate Aminotransferase 50 U/L (15-37); Blood Urea Nitrogen 8 mg/dL (7-18); Calcium 9.4 mg/dL (8.5-10.1); Carbon Dioxide 23.2 meq/L (21.0-32.0); Chloride 108 meq/L (98-107); Glomerular Filtration Rate Greater Than 89 mL/min (>89); Glucose,Random 90 mg/dL (74-106); Potassium 4.3 meq/L (3.5-5.1); Sodium 142 meq/L (136-145)
--- NOTE | 2018-06-28 08:06 | P.PNIM ---
Subjective Interval history: Patient seen and examined this morning. Her nurse had some episodes of tachycardia that were controlled with Ativan and morphine as needed. At this time will continue the antibiotics. 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 Physical Exam Vital signs: Vital Signs 06/27/18 09:00 06/27/18 09:47 06/27/18 10:00 Temperature Pulse Rate 120 H 60 Respiratory Rate 28 H 19 Blood Pressure 132/70 113/55 L Pulse Oximetry 98 100 100 06/27/18 11:00 06/27/18 12:00 06/27/18 13:00 Temperature 99.4 F Pulse Rate 99 H 102 H 75 Respiratory Rate 20 18 12 Blood Pressure 120/55 L 137/69 119/65 Pulse Oximetry 98 97 99 06/27/18 14:00 06/27/18 15:00 06/27/18 15:08 Temperature Pulse Rate 87 94 H 88 Respiratory Rate 19 25 H 10 L Blood Pressure 115/58 L 166/105 H 177/89 H Pulse Oximetry 100 100 99 06/27/18 16:00 06/27/18 16:10 06/27/18 17:00 Temperature 99 F Pulse Rate 102 H 88 88 Respiratory Rate 21 17 22 Blood Pressure 192/96 H 137/65 126/74 Pulse Oximetry 99 98 99 06/27/18 18:00 06/27/18 18:01 06/27/18 20:00 Temperature 98.6 F Pulse Rate 74 68 95 H Respiratory Rate 21 18 25 H Blood Pressure 132/67 102/66 Pulse Oximetry 99 100 99 06/27/18 21:00 06/27/18 22:00 06/28/18 00:00 Temperature 98.3 F 98.5 F 99.0 F Pulse Rate 61 74 53 L Respiratory Rate 21 22 20 Blood Pressure 118/60 118/65 105/54 L Pulse Oximetry 99 98 100 06/28/18 01:00 06/28/18 02:00 06/28/18 03:00 Temperature 99.0 F 99.0 F 99.0 F Pulse Rate 52 L 57 L 50 L Respiratory Rate 19 19 16 Blood Pressure 105/54 L 113/54 L 104/56 L Pulse Oximetry 100 100 100 06/28/18 03:30 06/28/18 04:00 06/28/18 05:00 Temperature 99.0 F 99.7 F H Pulse Rate 50 L 139 H Respiratory Rate 16 26 H Blood Pressure 118/60 118/60 Pulse Oximetry 98 100 99 06/28/18 06:00 Temperature 99.0 F Pulse Rate 73 Respiratory Rate 12 Blood Pressure 94/53 L Pulse Oximetry 100 Intake & Output 06/27/18 06/28/18 06/28/18 18:59 06:59 18:59 Intake Total 831 / 831 100 / 100 Output Total 1000 / 1000 550 / 550 Balance -169 / -169 -450 / -450 Weight 61.5 kg Intake: IV 200 / 200 100 / 100 Zerbaxa Inj 1,500 MG In NS Inj 200 / 200 100 / 100 100 ML @ 100 mls/hr IV.SIG Q8H SHAYNA Rx#:[id number] Oral 0 / 0 Oral Supplement 0 / 0 Tube Feeding 511 / 511 Water Bolus Amount 120 / 120 Output: Urine 1000 / 1000 550 / 550 Stool 0 / 0 Urine/Stool Mix 0 / 0 Other: # Incontinent Voids 2 # Bowel Movements 0 Narrative: GENERAL: Young male, lying in bed, encephalopathic, at baseline per chart review HEENT: Normocephalic. Atraumatic. Pupils equal, round, reactive, conjugate. Mucous membranes are moist NECK: Trachea is midline. There is no JVD. Tracheostomy is in place. CHEST: Equal chest rise. Trach collar oxygen. CARDIOVASCULAR: Normal rate of 72, regular rhythm. Sinus. ABDOMEN: Soft, nontender, nondistended. No guarding. PEG tube in place. MUSCULOSKELETAL: Pulses 2+. No peripheral edema. Contractures noted. NEUROLOGICAL: RASS -3. Tracts with eyes. Withdraws to pain. Neurologic exam is at baseline for the patient from my multiple prior neurologic exams. Results - Labs CBC & Chem 7: 06/27/18 05:04 06/28/18 04:47 Laboratory Results - last 24 hr 06/27/18 06/27/18 06/27/18 13:52 15:25 17:57 Sodium Potassium Chloride Carbon Dioxide Anion Gap BUN Creatinine Estimated GFR POC Glucose 111 H 81 Random Glucose Calcium Total Bilirubin AST ALT Alkaline Phosphatase Total Protein Albumin Urine Color Yellow Urine Clarity Clear Urine pH 6.0 Ur Specific [place] 1.019 Urine Protein Negative Urine Glucose (UA) Negative Urine Ketones Negative Urine Occult Blood Negative Urine Nitrate Negative Urine Bilirubin Negative Urine Urobilinogen Less than 2 Ur Leukocyte Esterase Negative Urine RBC 3 Urine WBC 1 Hyaline Casts 1 Urine Mucus Few H Micro UA Comment Culture not ind Ur Microscopic Review Not Reportable Urine Culture Comments Culture not ind 06/28/18 06/28/18 04:07 04:47 Sodium 142 Potassium 4.3 Chloride 108 H Carbon Dioxide 23.2 Anion Gap 11 BUN 8 Creatinine 0.74 Estimated GFR Greater than 89 POC Glucose 106 Random Glucose 90 Calcium 9.4 D Total Bilirubin 0.4 AST 50 H ALT 54 Alkaline Phosphatase 101 Total Protein 8.0 D Albumin 3.6 D Urine Color Urine Clarity Urine pH Ur Specific [place] Urine Protein Urine Glucose (UA) Urine Ketones Urine Occult Blood Urine Nitrate Urine Bilirubin Urine Urobilinogen Ur Leukocyte Esterase Urine RBC Urine WBC Hyaline Casts Urine Mucus Micro UA Comment Ur Microscopic Review Urine Culture Comments Microbiology 06/26/18 12:55 Blood - Peripheral Aerobic Blood Culture - Preliminary No growth in 1 day 06/26/18 12:55 Blood - Peripheral Anaerobic Blood Culture - Preliminary No growth in 1 day 06/26/18 13:20 Blood - Peripheral Aerobic Blood Culture - Preliminary No growth in 1 day 06/26/18 13:20 Blood - Peripheral Anaerobic Blood Culture - Preliminary No growth in 1 day 06/26/18 13:10 Catheterized Urine Urine Culture - Preliminary No growth in 24 hours 06/26/18 16:00 Sputum - Tracheal Aspirate Gram Stain - Final 06/26/18 16:00 Sputum - Tracheal Aspirate Sputum Culture - Preliminary Immature growth - reincubate Assessment and Plan - Assessment (1) Sepsis Code(s): A41.9 - Sepsis, unspecified organism Status: Acute (2) Anoxic encephalopathy Code(s): G93.1 - Anoxic brain damage, not elsewhere classified Status: Chronic (3) Seizure Code(s): R56.9 - Unspecified convulsions Status: Acute (4) Anoxic brain damage Code(s): G93.1 - Anoxic brain damage, not elsewhere classified Status: Acute - Plan This is a 33-year-old male wanted to the critical care medicine service who has a history of severe neurologic deficit and 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 Sepsis: Afebrile overnight -Continue IV vancomycin -Continue Zerbaxa to cover MDRO GNR -Follow-up on blood cultures and urine cultures -Continue to follow temperatures and currently afebrile -Continue to follow labs Seizure-like activity: -Continue Ativan as needed -Continue morphine as needed Chronic encephalopathic: -Continue tracheostomy -Continue tube feeds Hypertension: Patient's blood pressure fluctuates to hyper and hypotensive. Attempt to maintain normal blood pressure -Hydralazine per protocol DVT prophylaxis: -SCDs and continue Eliquis Case Management consulted to help with Discharge planning Code Status: Full code Discharge Planning: Likely discharge back to halfway facility frequent readmissions could be difficult discharge, have consulted case management. Will need clearance by infectious disease prior to discharge (1) Sepsis Qualifiers: Sepsis type: sepsis due to unspecified organism Qualified Code(s): A41.9 - Sepsis, unspecified organism
[2018-06-28] MEDS: Loratadine 10 MG Tablet G-TUBE SCH (09:31)
[2018-06-28] MEDS: Famotidine 20 MG Tablet PO SCH ×2 (09:32→20:41)
[2018-06-28] MEDS: Senna/Docusate Sodium 8.6/50 MG Tablet PO SCH ×2 (09:32→20:41)
[2018-06-28] MEDS: Multivitamins/Iron Drops (Fe=10 MG/ML) 50 ML Bottle G-TUBE SCH (09:33)
[2018-06-28] MEDS: Dextrose 5%/Lactated Ringer's 1,000 ML IV.CONT SCH ×2 (09:35→20:40)
--- NOTE | 2018-06-28 10:02 | P.PNID ---
Subjective Remarks: Patient is a 33-year-old male, who has anoxic brain damage, chronically has a trach in place, resides in the care home, brought into the hospital for evaluation of fever. And had any other accompanying signs and symptoms on this patient. Patient has had 2 hospitalization recently. One was May 22 - June 03, and at that time he was treated for pneumonia. His sputum culture grew a resistant Pseudomonas, and Providencia. On June 09, he was in the special procedure getting work done on his PEG tube when he developed hypotension and diaphoresis. He was readmitted to the hospital June 09, until June 24. At that time he was treated for Pseudomonas and E. coli ESBL positive sputum culture. He was just discharged June 24, and he was brought back in for evaluation of the fever. In the ED he was tachycardic, febrile up to 103, and had an elevated lactic acid. Patient is being admitted for evaluation and treatment of sepsis. His chest x-ray showing underinflated lungs with no acute infiltrate. His WBC is normal. Patient has no indwelling Nolasco catheter. His BP is okay. Infectious disease consultation has been requested to assist in evaluation and treatment of his sepsis. Notes reviewed Has low grade temps Copious oral secretions BP ok WBC normal UA ok BC negative Sputum C/S pending CXR underinflated Antibiotics: Zerbaxa Lines: PIV Past Medical History: Tracheostomy dependent (Acute) GERD (gastroesophageal reflux disease) (Acute) Pancreatitis (Acute) Diabetes mellitus (Acute) Dyslipidemia (Acute) HTN (hypertension) (Acute) Seizure (Acute) DVT (deep venous thrombosis) (Acute) Anoxic brain damage (Acute) PEG (percutaneous endoscopic gastrostomy) status (Acute) Allergies/Adverse Reactions: Allergies haloperidol Adverse Reaction (Severe, Verified 06/09/18 09:58) Seizures *MDRO Multi-Drug Resistant Organism Adverse Reaction (Unknown, Uncoded 06/09/18 09:58) Dry Mucus Membranes MRSA (sputum) - 04/25/16 & 05/23/16 MRSA PCR Screen POSITIVE - 04/25/2016 ESBL+E.Coli (blood-05/22/16) Objective Vital Signs 06/27/18 11:00 06/27/18 12:00 06/27/18 13:00 Temperature 99.4 F Pulse Rate 99 H 102 H 75 Respiratory Rate 20 18 12 Blood Pressure 120/55 L 137/69 119/65 Pulse Oximetry 98 97 99 06/27/18 14:00 06/27/18 15:00 06/27/18 15:08 Temperature Pulse Rate 87 94 H 88 Respiratory Rate 19 25 H 10 L Blood Pressure 115/58 L 166/105 H 177/89 H Pulse Oximetry 100 100 99 06/27/18 16:00 06/27/18 16:10 06/27/18 17:00 Temperature 99 F Pulse Rate 102 H 88 88 Respiratory Rate 21 17 22 Blood Pressure 192/96 H 137/65 126/74 Pulse Oximetry 99 98 99 06/27/18 18:00 06/27/18 18:01 06/27/18 20:00 Temperature 98.6 F Pulse Rate 74 68 95 H Respiratory Rate 21 18 25 H Blood Pressure 132/67 102/66 Pulse Oximetry 99 100 99 06/27/18 21:00 06/27/18 22:00 06/28/18 00:00 Temperature 98.3 F 98.5 F 99.0 F Pulse Rate 61 74 53 L Respiratory Rate 21 22 20 Blood Pressure 118/60 118/65 105/54 L Pulse Oximetry 99 98 100 06/28/18 01:00 06/28/18 02:00 06/28/18 03:00 Temperature 99.0 F 99.0 F 99.0 F Pulse Rate 52 L 57 L 50 L Respiratory Rate 19 19 16 Blood Pressure 105/54 L 113/54 L 104/56 L Pulse Oximetry 100 100 100 06/28/18 03:30 06/28/18 04:00 06/28/18 05:00 Temperature 99.0 F 99.7 F H Pulse Rate 50 L 139 H Respiratory Rate 16 26 H Blood Pressure 118/60 118/60 Pulse Oximetry 98 100 99 06/28/18 06:00 Temperature 99.0 F Pulse Rate 73 Respiratory Rate 12 Blood Pressure 94/53 L Pulse Oximetry 100 Intake & Output 06/27/18 06/28/18 06/28/18 18:59 06:59 18:59 Intake Total 831 / 831 100 / 100 Output Total 1000 / 1000 550 / 550 Balance -169 / -169 -450 / -450 Weight 61.5 kg Intake: IV 200 / 200 100 / 100 Zerbaxa Inj 1,500 MG In NS Inj 200 / 200 100 / 100 100 ML @ 100 mls/hr IV.SIG Q8H SHAYNA Rx#:[id number] Oral 0 / 0 Oral Supplement 0 / 0 Tube Feeding 511 / 511 Water Bolus Amount 120 / 120 Output: Urine 1000 / 1000 550 / 550 Stool 0 / 0 Urine/Stool Mix 0 / 0 Other: # Incontinent Voids 2 # Bowel Movements 0 06/26/18 13:10 Catheterized Urine Urine Culture - Final No growth in 48 hours 06/26/18 12:55 Blood - Peripheral Aerobic Blood Culture - Preliminary No growth in 1 day 06/26/18 12:55 Blood - Peripheral Anaerobic Blood Culture - Preliminary No growth in 1 day 06/26/18 13:20 Blood - Peripheral Aerobic Blood Culture - Preliminary No growth in 1 day 06/26/18 13:20 Blood - Peripheral Anaerobic Blood Culture - Preliminary No growth in 1 day 06/26/18 16:00 Sputum - Tracheal Aspirate Gram Stain - Final 06/26/18 16:00 Sputum - Tracheal Aspirate Sputum Culture - Preliminary Immature growth - reincubate Lab - Hematology Results 06/26/18 06/27/18 13:10 05:04 WBC 9.3 5.2 RBC 5.07 4.10 L Hgb 15.9 12.8 L D Hct 47.7 38.0 L MCV 94.0 92.5 MCH 31.3 31.2 MCHC 33.3 33.7 RDW 13.1 13.0 Plt Count 325 D 158 D MPV 11.4 H 11.1 H Neut % (Auto) 59.8 Lymph % (Auto) 31.3 [place] % (Auto) 6.8 Eos % (Auto) 0.9 Baso % (Auto) 1.2 Neut # (Auto) 5.6 Lymph # (Auto) 2.9 [place] # (Auto) 0.6 Eos # (Auto) 0.1 Baso # (Auto) 0.1 WBC Differential . Differential Comment Auto diff final Lab - Chemistry Results 06/26/18 06/26/18 06/26/18 13:10 13:20 15:40 Sodium 141 Potassium 4.2 Chloride 103 Carbon Dioxide 24.1 Anion Gap 14 BUN 16 Creatinine 1.25 Estimated GFR 82 L POC Glucose Random Glucose 142 H Lactic Acid 9.0 H* 2.6 H Calcium 9.7 Total Bilirubin 0.3 AST 24 ALT 71 Alkaline Phosphatase 109 Troponin I Less than 0.02 L Total Protein 9.4 H Albumin 4.4 06/26/18 06/26/18 06/26/18 18:41 20:11 23:17 Sodium Potassium Chloride Carbon Dioxide Anion Gap BUN Creatinine Estimated GFR POC Glucose 79 92 94 Random Glucose Lactic Acid Calcium Total Bilirubin AST ALT Alkaline Phosphatase Troponin I Total Protein Albumin 06/27/18 06/27/18 06/27/18 05:04 13:52 17:57 Sodium 144 Potassium 4.0 Chloride 109 H Carbon Dioxide 25.9 Anion Gap 9 BUN 8 Creatinine 0.56 L Estimated GFR Greater than 89 POC Glucose 111 H 81 Random Glucose 92 Lactic Acid Calcium 8.4 L D Total Bilirubin AST ALT Alkaline Phosphatase Troponin I Total Protein Albumin 06/28/18 06/28/18 04:07 04:47 Sodium 142 Potassium 4.3 Chloride 108 H Carbon Dioxide 23.2 Anion Gap 11 BUN 8 Creatinine 0.74 Estimated GFR Greater than 89 POC Glucose 106 Random Glucose 90 Lactic Acid Calcium 9.4 D Total Bilirubin 0.4 AST 50 H ALT 54 Alkaline Phosphatase 101 Troponin I Total Protein 8.0 D Albumin 3.6 D Imaging: ITS Impressions Chest X-Ray 06/26/18 13:06 CONCLUSION: Underinflated examination without an acute abnormality identified. Physical Exam: GENERAL: awake, but no interaction, has posturing, drooling clear secretions from his mouth. Has trach in place, not in respiratory distress. SKIN: Warm and moist. No generalized rash, no ecchymoses and no evidence of embolic lesions. HEAD: Atraumatic. Normocephalic. No temporal wasting, or tenderness. EYES: [place] conjunctiva. No petechia or hemorrhage. Pupils equal, round and reactive to light. No scleral icterus. No injection or drainage. EARS, NOSE AND THROAT: Nose without bleeding or purulent nasal discharge. Mucous membranes moist. A lot of oral secretions, drooling. . NECK: Tracheostomy site ok, has drainage in the trach dressing, looks light yellow. CARDIOVASCULAR: Regular rate and rhythm, tachycardic. No murmurs, rubs or gallops heard RESPIRATORY: No rales, wheezing or rhonchi. Decreased at bases ABDOMEN: Soft, non-tender, nondistended. Bowel sounds present and normoactive. No guarding. No rebound. No organomegaly. EXTREMITIES: No clubbing, cyanosis, or edema. Both feet plantar flexed. IV sites on both feet NEUROLOGICAL: Awake, no interaction. Posturing. UE and LE spastic. : Has condom cath in place, urine looks clear PSYCHIATRIC: Unable to assess. LINE: No evidence of infection Assessment and Plan - Plan Impression Sepsis on presentation (fevers, tachycardia, lactic acidosis) - CXR ok, ?plugging, has a lot of secretions - no nolasco - no lines - chronic trach Anoxic encephalopathy, in chronic vegetative state Chronic trach Infections with multiple MDRO Recommendation Continue IV Zerbaxa to cover MDRO GNR Follow C/S Follow temps Monitor progress Repeat CXR
--- NOTE | 2018-06-28 11:42 | XR ---
EXAM DATE: 06/28/2018 11:28 AM EDT AGE/SEX: 33 years / Male INDICATIONS: Fever. CLINICAL DATA: This is the patient's initial encounter. Patient reports that signs and symptoms have been present for 3 weeks and indicates a pain score of Nonresponsive. MEDICAL/SURGICAL HISTORY: Hypertension. diabetes, pancreatitis, anoxic brain injury, aspiration pneumonia . tracheostomy, peg tube placement COMPARISON: [facility], CHEST 1V SINGLE AP, 06/26/2018. . FINDINGS: A tracheostomy tube has its tip 3 cm above the [place]. The heart is enlarged. Moderate pulmonary vasc ular congestion is noted bilaterally. CONCLUSION: 1. Moderate pulmonary vascular congestion. 2. Cardiomegaly. Electronically signed by: Yuri De Souza MD 06/28/2018 11:41 AM EDT
[2018-06-29] MEDS: CEFTOLOZANE IV.SIG SCH ×3 (01:39→18:42)
[2018-06-29] MEDS: TAZOBACTAM IV.SIG SCH ×3 (01:39→18:42)
[2018-06-29] MEDS: SODIUM CHLOR 0.9% IV.SIG SCH ×3 (01:39→18:42)
[2018-06-29] MEDS: Morphine Sulfate Inj 2 MG/ML Vial IV.PUSH PRN (01:40)
[2018-06-29 04:34] LABS: Hematocrit 34.3 % (39.0-51.0); Hemoglobin 11.8 gm/dL (13.0-17.0); Mean Corpuscular HGB Conc 34.3 % (32.0-36.0); Mean Corpuscular Hemoglobin 31.6 pg (27.0-34.0); Mean Platelet Volume 10.6 fL (7.0-11.0); Platelet Count 154 th/mm3 (150-450); Red Blood Count 3.73 mil/mm3 (4.50-5.90); Red Cell Distribution Width 13.2 % (11.6-17.2); White Blood Count 3.6 th/mm3 (4.0-11.0)
[2018-06-29 05:08] LABS: Anion Gap 8 meq/L (5-15); Blood Urea Nitrogen 6 mg/dL (7-18); Calcium 8.5 mg/dL (8.5-10.1); Carbon Dioxide 29.1 meq/L (21.0-32.0); Chloride 108 meq/L (98-107); Glomerular Filtration Rate Greater Than 89 mL/min (>89); Glucose,Random 86 mg/dL (74-106); Potassium 3.5 meq/L (3.5-5.1); Sodium 145 meq/L (136-145)
--- NOTE | 2018-06-29 08:09 | P.PNIM ---
Subjective Interval history: Patient seen and examined this morning. Afebrile vital signs stable. No acute events overnight. Patient's J-tube continues to clot occasionally. Place consult for gastroenterology for evaluation. Patient has been restarted on his Keppra no reported seizure activity since being back on medication. Neurology has been consulted for further recommendations. Patient is still noncommunicative at this time. Does not appear to be in any pain. No tachycardia at this time Physical Exam Vital signs: Vital Signs 06/28/18 09:00 06/28/18 10:00 06/28/18 11:01 Temperature Pulse Rate 72 57 L 78 Respiratory Rate 14 17 29 H Blood Pressure 114/56 L 106/53 L 131/57 L Pulse Oximetry 100 100 100 06/28/18 12:00 06/28/18 13:01 06/28/18 14:00 Temperature Pulse Rate 63 75 114 H Respiratory Rate 22 18 33 H Blood Pressure 117/56 L 111/57 L Pulse Oximetry 100 98 95 06/28/18 15:00 06/28/18 16:00 06/28/18 16:01 Temperature Pulse Rate 77 84 82 Respiratory Rate 8 L 18 17 Blood Pressure 115/57 L 105/75 Pulse Oximetry 100 100 06/28/18 17:00 06/28/18 18:00 06/28/18 20:00 Temperature 99.0 F Pulse Rate 66 143 H 111 H Respiratory Rate 20 43 H 17 Blood Pressure 102/72 165/86 H Pulse Oximetry 94 L 100 100 06/28/18 20:49 06/28/18 22:00 06/29/18 00:00 Temperature 99.0 F 99.0 F Pulse Rate 67 52 L Respiratory Rate 16 12 Blood Pressure 108/53 L 100/49 L Pulse Oximetry 100 100 96 06/29/18 02:00 06/29/18 04:00 06/29/18 06:00 Temperature 99.0 F 99.0 F 99.0 F Pulse Rate 72 50 L 66 Respiratory Rate 19 12 22 Blood Pressure 93/62 L 127/60 113/73 Pulse Oximetry 99 100 Intake & Output 06/28/18 06/29/18 06/29/18 18:59 06:59 18:59 Intake Total 1350 / 1350 1100 / 1100 Output Total 525 / 525 0 / 0 Balance 825 / 825 1100 / 1100 Weight 65 kg Intake: IV 1100 / 1100 1100 / 1100 D5W/LR Inj 1,000 ML @ 100 mls/ 1000 / 1000 1000 / 1000 hr IV.CONT .Q10H SHAYNA Rx#: [id number] Zerbaxa Inj 1,500 MG In NS Inj 100 / 100 100 / 100 100 ML @ 100 mls/hr IV.SIG Q8H SHAYNA Rx#:[id number] Oral 0 / 0 Tube Irrigant 250 / 250 Output: Urine 525 / 525 Stool 0 / 0 Urine/Stool Mix 0 / 0 Other: Post Void Residual 0 # Voids 3 # Incontinent Voids 3 # Bowel Movements 0 0 # Incontinent Bowel Movements 0 Narrative: GENERAL: Young male, lying in bed, encephalopathic, at baseline per chart review HEENT: Normocephalic. Atraumatic. Pupils equal, round, reactive, conjugate. Mucous membranes are moist NECK: Trachea is midline. There is no JVD. Tracheostomy is in place. CHEST: Equal chest rise. Trach collar oxygen. CARDIOVASCULAR: Normal rate regular rhythm. Sinus. ABDOMEN: Soft, nontender, nondistended. No guarding. PEG tube in place. MUSCULOSKELETAL: Pulses 2+. No peripheral edema. Contractures noted. NEUROLOGICAL: RASS -3. Tracts with eyes. Withdraws to pain. Neurologic exam is at baseline for the patient from my multiple prior neurologic exams. Results - Labs CBC & Chem 7: 06/29/18 04:02 06/29/18 04:02 Laboratory Results - last 24 hr 06/28/18 06/29/18 06/29/18 14:08 04:02 04:02 WBC 3.6 L RBC 3.73 L Hgb 11.8 L Hct 34.3 L MCV 92.0 MCH 31.6 MCHC 34.3 RDW 13.2 Plt Count 154 MPV 10.6 Sodium 145 Potassium 3.5 D Chloride 108 H Carbon Dioxide 29.1 Anion Gap 8 BUN 6 L Creatinine 0.63 Estimated GFR Greater than 89 POC Glucose 99 Random Glucose 86 Calcium 8.5 D 06/29/18 05:50 WBC RBC Hgb Hct MCV MCH MCHC RDW Plt Count MPV Sodium Potassium Chloride Carbon Dioxide Anion Gap BUN Creatinine Estimated GFR POC Glucose 107 Random Glucose Calcium Microbiology 06/26/18 16:00 Sputum - Tracheal Aspirate Gram Stain - Final 06/26/18 16:00 Sputum - Tracheal Aspirate Sputum Culture - Preliminary gram negative rods 06/26/18 12:55 Blood - Peripheral Aerobic Blood Culture - Preliminary No growth in 2 days 06/26/18 12:55 Blood - Peripheral Anaerobic Blood Culture - Preliminary No growth in 2 days 06/26/18 13:20 Blood - Peripheral Aerobic Blood Culture - Preliminary No growth in 2 days 06/26/18 13:20 Blood - Peripheral Anaerobic Blood Culture - Preliminary No growth in 2 days 06/26/18 13:10 Catheterized Urine Urine Culture - Final No growth in 48 hours - Imaging Impressions Chest X-Ray 06/28/18 00:00 CONCLUSION: 1. Moderate pulmonary vascular congestion. 2. Cardiomegaly. Assessment and Plan - Assessment (1) Sepsis Code(s): A41.9 - Sepsis, unspecified organism Status: Acute (2) Anoxic encephalopathy Code(s): G93.1 - Anoxic brain damage, not elsewhere classified Status: Chronic (3) Seizure Code(s): R56.9 - Unspecified convulsions Status: Acute (4) Anoxic brain damage Code(s): G93.1 - Anoxic brain damage, not elsewhere classified Status: Acute - Plan This is a 33-year-old male wanted to the critical care medicine service who has a history of severe neurologic deficit and 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 Sepsis: Afebrile overnight -Continue IV vancomycin -Continue Zerbaxa to cover MDRO GNR -Follow-up on blood cultures and urine cultures -Continue to follow temperatures and currently afebrile -Continue to follow labs Seizure-like activity: -Continue Ativan as needed -Restarted patient's Keppra -Consulted neurology, recommendations appreciated -Continue morphine as needed Chronic encephalopathic: -Continue tracheostomy -Continue tube feeds Hypertension: Patient's blood pressure fluctuates to hyper and hypotensive. Attempt to maintain normal blood pressure -Clonidine per protocol DVT prophylaxis: -SCDs and continue Eliquis Case Management consulted to help with Discharge planning Code Status: Full code Discharge Planning: Likely discharge back to halfway facility frequent readmissions could be difficult discharge, have consulted case management. Will need clearance by infectious disease prior to discharge (1) Sepsis Qualifiers: Sepsis type: sepsis due to unspecified organism Qualified Code(s): A41.9 - Sepsis, unspecified organism
[2018-06-29] MEDS: Loratadine 10 MG Tablet G-TUBE SCH (09:36)
[2018-06-29] MEDS: Senna/Docusate Sodium 8.6/50 MG Tablet PO SCH ×2 (09:36→21:30)
[2018-06-29] MEDS: Famotidine 20 MG Tablet PO SCH ×2 (09:36→21:31)
[2018-06-29] MEDS: Dextrose 5%/Lactated Ringer's 1,000 ML IV.CONT SCH ×2 (09:37→18:34)
[2018-06-29] MEDS: Chlorhexidine Gluconate 2% 1 Pack (2 Cloths) TOPICAL SCH (09:38)
[2018-06-29] MEDS: Multivitamins/Iron Drops (Fe=10 MG/ML) 50 ML Bottle G-TUBE SCH (09:40)
--- NOTE | 2018-06-29 13:09 | P.PNID ---
Subjective Remarks: Patient is a 33-year-old male, who has anoxic brain damage, chronically has a trach in place, resides in the intermediate, brought into the hospital for evaluation of fever. And had any other accompanying signs and symptoms on this patient. Patient has had 2 hospitalization recently. One was May 22 - June 03, and at that time he was treated for pneumonia. His sputum culture grew a resistant Pseudomonas, and Providencia. On June 09, he was in the special procedure getting work done on his PEG tube when he developed hypotension and diaphoresis. He was readmitted to the hospital June 09, until June 24. At that time he was treated for Pseudomonas and E. coli ESBL positive sputum culture. He was just discharged June 24, and he was brought back in for evaluation of the fever. In the ED he was tachycardic, febrile up to 103, and had an elevated lactic acid. Patient is being admitted for evaluation and treatment of sepsis. His chest x-ray showing underinflated lungs with no acute infiltrate. His WBC is normal. Patient has no indwelling Nolasco catheter. His BP is okay. Infectious disease consultation has been requested to assist in evaluation and treatment of his sepsis. Notes reviewed Temps 99+ Copious oral secretions BP ok WBC down to 3.6 UA ok BC negative Sputum C/S E coli ESBL+ and PSAE CXR with vascular congestion Antibiotics: Zerbaxa Lines: PIV Past Medical History: Tracheostomy dependent (Acute) GERD (gastroesophageal reflux disease) (Acute) Pancreatitis (Acute) Diabetes mellitus (Acute) Dyslipidemia (Acute) HTN (hypertension) (Acute) Seizure (Acute) DVT (deep venous thrombosis) (Acute) Anoxic brain damage (Acute) PEG (percutaneous endoscopic gastrostomy) status (Acute) Allergies/Adverse Reactions: Allergies haloperidol Adverse Reaction (Severe, Verified 06/09/18 09:58) Seizures *MDRO Multi-Drug Resistant Organism Adverse Reaction (Unknown, Uncoded 06/09/18 09:58) Dry Mucus Membranes MRSA (sputum) - 04/25/16 & 05/23/16 MRSA PCR Screen POSITIVE - 04/25/2016 ESBL+E.Coli (blood-05/22/16) Objective Vital Signs 06/28/18 14:00 06/28/18 15:00 06/28/18 16:00 Temperature Pulse Rate 114 H 77 84 Respiratory Rate 33 H 8 L 18 Blood Pressure 115/57 L Pulse Oximetry 95 100 06/28/18 16:01 06/28/18 17:00 06/28/18 18:00 Temperature Pulse Rate 82 66 143 H Respiratory Rate 17 20 43 H Blood Pressure 105/75 102/72 Pulse Oximetry 100 94 L 100 06/28/18 20:00 06/28/18 20:49 06/28/18 22:00 Temperature 99.0 F 99.0 F Pulse Rate 111 H 67 Respiratory Rate 17 16 Blood Pressure 165/86 H 108/53 L Pulse Oximetry 100 100 100 06/29/18 00:00 06/29/18 02:00 06/29/18 04:00 Temperature 99.0 F 99.0 F 99.0 F Pulse Rate 52 L 72 50 L Respiratory Rate 12 19 12 Blood Pressure 100/49 L 93/62 L 127/60 Pulse Oximetry 96 99 100 06/29/18 06:00 06/29/18 07:00 06/29/18 08:00 Temperature 99.0 F Pulse Rate 66 47 L 70 Respiratory Rate 22 13 18 Blood Pressure 113/73 Pulse Oximetry 100 76 L 06/29/18 09:00 06/29/18 10:00 06/29/18 11:00 Temperature Pulse Rate 60 63 Respiratory Rate 11 L 19 Blood Pressure Pulse Oximetry 98 100 100 Intake & Output 06/28/18 06/29/18 06/29/18 18:59 06:59 18:59 Intake Total 1350 / 1350 2200 / 2200 Output Total 525 / 525 0 / 0 Balance 825 / 825 2200 / 2200 Weight 65 kg Intake: IV 1100 / 1100 2200 / 2200 D5W/LR Inj 1,000 ML @ 100 mls/ 1000 / 1000 2000 / 2000 hr IV.CONT .Q10H [facility] Rx#: [id number] Zerbaxa Inj 1,500 MG In NS Inj 100 / 100 200 / 200 100 ML @ 100 mls/hr IV.SIG Q8H [facility] Rx#:[id number] Oral 0 / 0 Tube Irrigant 250 / 250 Output: Urine 525 / 525 Stool 0 / 0 Urine/Stool Mix 0 / 0 Other: Post Void Residual 0 # Voids 3 # Incontinent Voids 3 # Bowel Movements 0 0 # Incontinent Bowel Movements 0 06/26/18 12:55 Blood - Peripheral Aerobic Blood Culture - Preliminary No growth in 3 days 06/26/18 12:55 Blood - Peripheral Anaerobic Blood Culture - Preliminary No growth in 3 days 06/26/18 13:20 Blood - Peripheral Aerobic Blood Culture - Preliminary No growth in 3 days 06/26/18 13:20 Blood - Peripheral Anaerobic Blood Culture - Preliminary No growth in 3 days 06/26/18 16:00 Sputum - Tracheal Aspirate Gram Stain - Final 06/26/18 16:00 Sputum - Tracheal Aspirate Sputum Culture - Final Escherichia coli ESBL positive Pseudomonas aeruginosa 06/26/18 13:10 Catheterized Urine Urine Culture - Final No growth in 48 hours Lab - Hematology Results 06/28/18 06/29/18 04:47 04:02 WBC Cancelled 3.6 L Corrected WBC Cancelled RBC Cancelled 3.73 L Hgb Cancelled 11.8 L Hct Cancelled 34.3 L MCV Cancelled 92.0 MCH Cancelled 31.6 MCHC Cancelled 34.3 RDW Cancelled 13.2 Plt Count Cancelled 154 MPV Cancelled 10.6 Hematology Comments Cancelled Lab - Chemistry Results 06/27/18 06/27/18 06/28/18 13:52 17:57 04:07 Sodium Potassium Chloride Carbon Dioxide Anion Gap BUN Creatinine Estimated GFR POC Glucose 111 H 81 106 Random Glucose Calcium Total Bilirubin AST ALT Alkaline Phosphatase Total Protein Albumin 06/28/18 06/28/18 06/29/18 04:47 14:08 04:02 Sodium 142 145 Potassium 4.3 3.5 D Chloride 108 H 108 H Carbon Dioxide 23.2 29.1 Anion Gap 11 8 BUN 8 6 L Creatinine 0.74 0.63 Estimated GFR Greater than 89 Greater than 89 POC Glucose 99 Random Glucose 90 86 Calcium 9.4 D 8.5 D Total Bilirubin 0.4 AST 50 H ALT 54 Alkaline Phosphatase 101 Total Protein 8.0 D Albumin 3.6 D 06/29/18 06/29/18 05:50 12:03 Sodium Potassium Chloride Carbon Dioxide Anion Gap BUN Creatinine Estimated GFR POC Glucose 107 96 Random Glucose Calcium Total Bilirubin AST ALT Alkaline Phosphatase Total Protein Albumin Imaging: ITS Impressions Chest X-Ray 06/28/18 00:00 CONCLUSION: 1. Moderate pulmonary vascular congestion. 2. Cardiomegaly. Physical Exam: GENERAL: awake, but no interaction, has posturing, drooling clear secretions from his mouth. Has trach in place, not in respiratory distress. SKIN: Warm and moist. No generalized rash, no ecchymoses and no evidence of embolic lesions. HEAD: Atraumatic. Normocephalic. No temporal wasting, or tenderness. EYES: Bow[place] conjunctiva. No petechia or hemorrhage. Pupils equal, round and reactive to light. No scleral icterus. No injection or drainage. EARS, NOSE AND THROAT: Nose without bleeding or purulent nasal discharge. Mucous membranes moist. A lot of oral secretions, drooling. . NECK: Tracheostomy site ok, has drainage in the trach dressing, looks light yellow. CARDIOVASCULAR: Regular rate and rhythm, tachycardic. No murmurs, rubs or gallops heard RESPIRATORY: No rales, wheezing or rhonchi. Decreased at bases ABDOMEN: Soft, non-tender, nondistended. Bowel sounds present and normoactive. No guarding. No rebound. No organomegaly. EXTREMITIES: No clubbing, cyanosis, or edema. Both feet plantar flexed. IV sites on both feet NEUROLOGICAL: Awake, no interaction. Posturing. UE and LE spastic. : Has condom cath in place, urine looks clear PSYCHIATRIC: Unable to assess. 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
--- NOTE | 2018-06-29 16:36 | P.CONNEU ---
History of Present Illness Service: Neurology Primary Care Provider: UNKNOWN Chief Complaint: Seizure History of Present Illness: 33-year-old admitted for fever tachycardia. [place] to have acute dysautonomia. This is improved. Apparently had a couple seizures Leon was reinitiated neurology consult. He has an underlying history of hypoxic ischemic injury is bedbound nonverbal in a contracted state. Review of Systems unobtainable due to mental status PMFSH - History History Provided By: Family Member - Medical History Medical History: Medical History (Last Reviewed 06/26/18 @ 18:16 by Corinna Skelton MD) Tracheostomy dependent (Acute) GERD (gastroesophageal reflux disease) (Acute) Pancreatitis (Acute) Diabetes mellitus (Acute) Dyslipidemia (Acute) HTN (hypertension) (Acute) Seizure (Acute) DVT (deep venous thrombosis) (Acute) Anoxic brain damage (Acute) - Surgical History Surgical History: Surgical History (Last Reviewed 06/26/18 @ 18:16 by Corinna Skelton MD) PEG (percutaneous endoscopic gastrostomy) status (Acute) - Tobacco History Second Hand Smoke Exposure: No Smoking Status: Never smoker - Alcohol History How Often Do You Have a Drink Containing Alcohol: Never - Substance Use History Substance History: No History of Abuse - Travel History Recent Travel in the [place] Within the Last 8 Weeks: No Recent Travel Out of the Country Within the Last 8 Weeks: No - Immunization History Tetanus Immunization: Unable to Assess Hx Influenza Vaccine This Season: Unable to Assess Medications and Allergies Active Medications: Active Medications Al Hydroxide/Mg Hydroxide (Milk Of Tammy Ricciq) 30 ml PO Q12H PRN PRN Reason: Mild Constipation Albuterol (Duoneb Neb (Prn)) 1 ampul NEB Q2HR NEB PRN PRN Reason: WHEEZING Apixaban (Eliquis) 5 mg PO BID [facility] Last Admin: 06/29/18 09:37 Dose: 5 mg Baclofen (Lioresal) 20 mg PO BID [facility] Last Admin: 06/29/18 09:37 Dose: 20 mg Bisacodyl (Dulcolax Supp) 10 mg RECTAL DAILY PRN PRN Reason: SEVERE CONSITIPATION Chlorhexidine Gluconate (Chlorhexidine 2% Cloth) 3 pack TOPICAL DAILY@0400 [facility] Stop: 07/02/18 03:59 Last Admin: 06/29/18 09:38 Dose: Not Given Chlorhexidine Gluconate (Chlorhexidine 2% Cloth) 3 pack TOPICAL DAILY@0400 PRN PRN Reason: Extra cloth needed Stop: 07/02/18 03:59 Clonidine HCl (Catapres) 0.1 mg PO Q4H PRN PRN Reason: BP>180/90 Colistimethate Sodium (Coly-Mycin M Neb) 150 mg INH BID NEB [facility] Famotidine (Pepcid) 20 mg PO BID [facility] Last Admin: 06/29/18 09:36 Dose: 20 mg Sodium Chloride (Ns Inj) 1,000 mls @ 0 mls/hr IV.SIG .Q0M [facility] Last Infusion: 06/26/18 14:19 Dose: Infused Magnesium Sulfate Inj 4 gm/ (Sodium Chloride) 100 mls @ 50 mls/hr IV.SIG UNSCH PRN PRN Reason: For Magnesium 0.9 - 1.1 mg/dL Magnesium Sulfate Inj 2 gm/ (Sodium Chloride) 100 mls @ 50 mls/hr IV.SIG UNSCH PRN PRN Reason: For Magnesium 1.2 - 1.6 mg/dL Potassium Chloride (Kcl 40 Meq Premix Inj) 40 meq in 100 mls @ 50 mls/hr IV.SIG Q2H PRN PRN Reason: For Potassium 2.8 - 3.2 mEq/L Potassium Chloride (Kcl 20 Meq Premix Inj) 20 meq in 100 mls @ 50 mls/hr IV.SIG Q2H PRN PRN Reason: For Potassium 3.3 - 3.5 mEq/L Potassium Chloride (Kcl 20 Meq Premix Inj) 20 meq in 100 mls @ 50 mls/hr IV.SIG Q2H PRN PRN Reason: For Potassium 2.8 - 3.2 mEq/L Potassium Phosphate 30 mmol/ (Sodium Chloride) 260 mls @ 42 mls/hr IV.SIG UNSCH PRN PRN Reason: SEE LABEL COMMENTS Sodium Phosphate 30 mmol/ (Sodium Chloride) 260 mls @ 42 mls/hr IV.SIG UNSCH PRN PRN Reason: For Phosphorus < 2.5 mg/dL Potassium Chloride (Kcl 40 Meq Premix Inj) 40 meq in 100 mls @ 25 mls/hr IV.SIG UNSCH PRN PRN Reason: For Potassium 3.3 - 3.5 mEq/L Ceftolozane/Tazobactam 1,500 (mg/ Sodium Chloride) 100 mls @ 100 mls/hr IV.SIG Q8H [facility] Last Admin: 06/29/18 09:39 Dose: 100 mls/hr Dextrose/Lactated Ringer's (D5w/Lr Inj) 1,000 mls @ 100 mls/hr IV.CONT .Q10H [facility] Last Admin: 06/29/18 09:37 Dose: 100 mls/hr Lactulose (Lactulose Liq) 30 ml PO DAILY PRN PRN Reason: SEVERE CONSITIPATION Levetiracetam (Keppra Liq) 1,000 mg G-TUBE Q12HR [facility] Last Admin: 06/29/18 09:37 Dose: 1,000 mg Loratadine (Claritin) 10 mg G-TUBE DAILY [facility] Last Admin: 06/29/18 09:36 Dose: 10 mg Lorazepam (Ativan Inj) 1 mg IV.PUSH Q1H PRN PRN Reason: Agitation/sedation Last Admin: 06/28/18 14:03 Dose: 1 mg Magnesium Oxide (Mag-Ox) 800 mg PO UNSCH PRN PRN Reason: For Magnesium 1.2 - 1.6 mg/dL Morphine Sulfate (Morphine Inj) 2 mg IV.PUSH Q4H PRN PRN Reason: pain 6-10 or agitation Last Admin: 06/29/18 01:40 Dose: 2 mg Multivitamins/Iron (Poly-Vi-Kerry W/Iron Drops) 1 ml G-TUBE DAILY [facility] Last Admin: 06/29/18 09:40 Dose: 1 ml Ondansetron HCl (Zofran Inj) 4 mg IV.PUSH Q6H PRN PRN Reason: NAUSEA OR VOMITING Potassium Bicarb/Potassium Chloride (K-Lyte Cl Eff) 50 meq PO UNSCH PRN PRN Reason: For Potassium 3.3 - 3.5 mEq/L Potassium Phosphate (K-Phos Original) 2,000 mg PO Q4H PRN PRN Reason: Phosphorus Less Than 2.5 mg/dL Potassium Phosphate (K-Phos Original) 2,000 mg PO UNSCH PRN PRN Reason: SEE LABEL COMMENTS Senna/Docusate Sodium (Shala-Colace) 1 tab PO BID [facility] Last Admin: 06/29/18 09:36 Dose: 1 tab Sennosides (Senokot) 17.2 mg PO Q12H PRN PRN Reason: Moderate Constipation Sodium Chloride (Ns Flush) 2 ml IV.FLUSH BID [facility] Last Admin: 06/29/18 09:38 Dose: 2 ml Sodium Chloride (Ns Flush) 2 ml IV.FLUSH UNSCH PRN PRN Reason: FLUSH AFTER USING IV ACCESS Allergies Allergy/AdvReac Type Severity Reaction Status Date / Time haloperidol AdvReac Severe Seizures Verified 06/09/18 09:58 *MDRO Multi-Drug Resistant AdvReac Unknown Dry Mucus Uncoded 06/09/18 09:58 Organism Membranes Home Medications Medication Instructions Recorded Confirmed Type apixaban [Eliquis] 5 mg FEEDING TUBE BID 05/22/18 06/26/18 History glycopyrrolate 1 mg FEEDING TUBE Q8H PRN 05/22/18 06/26/18 History hyoscyamine sulfate [Levsin] 0.25 mg FEEDING TUBE Q4H PRN 05/22/18 06/26/18 History levetiracetam 1,000 mg FEEDING TUBE Q12H 05/22/18 06/26/18 History loratadine [Claritin] 10 mg FEEDING TUBE DAILY 05/22/18 06/26/18 History lorazepam 1 mg/kg IM Q6HR PRN 05/22/18 06/26/18 History multivitamin with minerals 5 ml FEEDING TUBE DAILY 05/22/18 06/26/18 History oxycodone 5 mg PO Q6HR PRN 06/26/18 06/26/18 History Exam Vital signs: Vital Signs 06/28/18 17:00 06/28/18 18:00 06/28/18 20:00 Temperature 99.0 F Pulse Rate 66 143 H 111 H Respiratory Rate 20 43 H 17 Blood Pressure 102/72 165/86 H Pulse Oximetry 94 L 100 100 06/28/18 20:49 06/28/18 22:00 06/29/18 00:00 Temperature 99.0 F 99.0 F Pulse Rate 67 52 L Respiratory Rate 16 12 Blood Pressure 108/53 L 100/49 L Pulse Oximetry 100 100 96 06/29/18 02:00 06/29/18 04:00 06/29/18 06:00 Temperature 99.0 F 99.0 F 99.0 F Pulse Rate 72 50 L 66 Respiratory Rate 19 12 22 Blood Pressure 93/62 L 127/60 113/73 Pulse Oximetry 99 100 08/28/18 07:00 06/29/18 08:00 06/29/18 09:00 Temperature Pulse Rate 47 L 70 60 Respiratory Rate 13 18 11 L Blood Pressure Pulse Oximetry 100 76 L 98 06/29/18 10:00 06/29/18 11:00 06/29/18 12:00 Temperature Pulse Rate 63 72 Respiratory Rate 19 Blood Pressure Pulse Oximetry 100 100 06/29/18 14:00 Temperature Pulse Rate 60 Respiratory Rate Blood Pressure Pulse Oximetry Intake & Output 06/28/18 06/29/18 06/29/18 18:59 06:59 18:59 Intake Total 1350 / 1350 2200 / 2200 Output Total 525 / 525 0 / 0 Balance 825 / 825 2200 / 2200 Weight 65 kg Intake: IV 1100 / 1100 2200 / 2200 D5W/LR Inj 1,000 ML @ 100 mls/ 1000 / 1000 2000 / 2000 hr IV.CONT .Q10H [facility] Rx#: [id number] Zerbaxa Inj 1,500 MG In NS Inj 100 / 100 200 / 200 100 ML @ 100 mls/hr IV.SIG Q8H [facility] Rx#:[id number] Oral 0 / 0 Tube Irrigant 250 / 250 Output: Urine 525 / 525 Stool 0 / 0 Urine/Stool Mix 0 / 0 Other: Post Void Residual 0 # Voids 3 # Incontinent Voids 3 # Bowel Movements 0 0 # Incontinent Bowel Movements 0 Narrative: Laying in bed no acute distress no involuntary movements no clear gaze deviation , nonverbal not following, head turn to the side as increased tone mild quadriparesis contractures brisk reflexes - Constitutional no acute distress Results - Labs CBC & Chem 7: 06/29/18 04:02 06/29/18 04:02 Labs: Laboratory Results - last 24 hr 06/28/18 06/29/18 06/29/18 04:47 04:02 04:02 WBC Cancelled 3.6 L Corrected WBC Cancelled RBC Cancelled 3.73 L Hgb Cancelled 11.8 L Hct Cancelled 34.3 L MCV Cancelled 92.0 MCH Cancelled 31.6 MCHC Cancelled 34.3 RDW Cancelled 13.2 Plt Count Cancelled 154 MPV Cancelled 10.6 Hematology Comments Cancelled Sodium 145 Potassium 3.5 D Chloride 108 H Carbon Dioxide 29.1 Anion Gap 8 BUN 6 L Creatinine 0.63 Estimated GFR Greater than 89 POC Glucose Random Glucose 86 Calcium 8.5 D 06/29/18 06/29/18 05:50 12:03 WBC Corrected WBC RBC Hgb Hct MCV MCH MCHC RDW Plt Count MPV Hematology Comments Sodium Potassium Chloride Carbon Dioxide Anion Gap BUN Creatinine Estimated GFR POC Glucose 107 96 Random Glucose Calcium Review/Management - Diagnosis (1) Anoxic encephalopathy Code(s): G93.1 - Anoxic brain damage, not elsewhere classified Status: Chronic Current Visit: No (2) Feeding tube dysfunction Code(s): T85.598A - Other mechanical complication of other gastrointestinal prosthetic devices, implants and grafts, initial encounter Status: Resolved Current Visit: No - Review/Management Plan: Continue Keppra We will add Dilantin EEG Discussed with APRIL
[2018-06-29] MEDS: levETIRAcetam 500 MG Tablet PO SCH (18:42)
[2018-06-29] MEDS: Phenytoin Sodium 100 MG Capsule PO SCH (18:43)
[2018-06-30] MEDS: CEFTOLOZANE IV.SIG SCH ×3 (00:12→18:17)
[2018-06-30] MEDS: SODIUM CHLOR 0.9% IV.SIG SCH ×3 (00:12→18:17)
[2018-06-30] MEDS: TAZOBACTAM IV.SIG SCH ×3 (00:12→18:17)
[2018-06-30] MEDS: Morphine Sulfate Inj 2 MG/ML Vial IV.PUSH PRN ×3 (00:13→18:47)
[2018-06-30] MEDS: Dextrose 5%/Lactated Ringer's 1,000 ML IV.CONT SCH ×3 (05:35→18:47)
[2018-06-30] MEDS: Chlorhexidine Gluconate 2% 1 Pack (2 Cloths) TOPICAL SCH (05:35)
--- NOTE | 2018-06-30 07:55 | P.PNIM ---
Subjective Interval history: Patient seen and examined this morning. Temperature 99.0, pulse ranging between 41-87, respiratory rate 23, blood pressure ranging between 110-117/54-80 , pulse ox 100% with T-piece flow rate of 8 FiO2 35. Patient opens his eyes does not follow any commands or communicate Physical Exam Vital signs: Vital Signs 06/29/18 08:00 06/29/18 09:00 06/29/18 10:00 Temperature Pulse Rate 70 60 63 Respiratory Rate 18 11 L 19 Blood Pressure Pulse Oximetry 76 L 98 100 06/29/18 11:00 06/29/18 12:00 06/29/18 13:01 Temperature Pulse Rate 46 L 72 45 L Respiratory Rate 4 L 16 Blood Pressure 127/55 L 138/66 103/52 L Pulse Oximetry 100 100 06/29/18 14:00 06/29/18 15:00 06/29/18 16:00 Temperature Pulse Rate 109 H 76 64 Respiratory Rate 30 H 22 16 Blood Pressure 109/80 117/75 Pulse Oximetry 69 L 100 06/29/18 16:24 06/29/18 17:00 06/29/18 18:00 Temperature Pulse Rate 57 L 52 L 65 Respiratory Rate 21 9 L Blood Pressure 128/80 127/69 Pulse Oximetry 100 100 06/29/18 19:00 06/29/18 20:00 06/29/18 20:52 Temperature 99.0 F Pulse Rate 48 L 48 L Respiratory Rate 23 Blood Pressure 110/54 L Pulse Oximetry 100 100 100 06/29/18 22:00 06/30/18 00:00 06/30/18 02:00 Temperature Pulse Rate 87 83 41 L Respiratory Rate Blood Pressure Pulse Oximetry 06/30/18 04:00 06/30/18 05:00 Temperature Pulse Rate 42 L Respiratory Rate Blood Pressure Pulse Oximetry 100 Intake & Output 06/29/18 06/30/18 06/30/18 18:59 06:59 18:59 Intake Total 1200 / 1200 1200 / 1200 Output Total 1300 / 1300 Balance -100 / -100 1200 / 1200 Intake: IV 1100 / 1100 1200 / 1200 D5W/LR Inj 1,000 ML @ 100 mls/ 1000 / 1000 1000 / 1000 hr IV.CONT .Q10H [facility] Rx#: [id number] Zerbaxa Inj 1,500 MG In NS Inj 100 / 100 200 / 200 100 ML @ 100 mls/hr IV.SIG Q8H [facility] Rx#:[id number] Oral 0 / 0 Tube Feeding 0 / 0 Tube Irrigant 100 / 100 Output: Urine 1300 / 1300 Stool 0 / 0 Urine/Stool Mix 0 / 0 Other: Post Void Residual 0 # Voids 3 # Incontinent Voids 3 # Bowel Movements 0 # Incontinent Bowel Movements 0 Narrative: GENERAL: Young male, lying in bed, encephalopathic, at baseline per chart review HEENT: Normocephalic. Atraumatic. Pupils equal, round, reactive, conjugate. Mucous membranes are moist NECK: Trachea is midline. There is no JVD. Tracheostomy is in place. CHEST: Equal chest rise. Trach collar oxygen. CARDIOVASCULAR: Normal rate regular rhythm. Sinus. ABDOMEN: Soft, nontender, nondistended. No guarding. PEG tube in place. MUSCULOSKELETAL: Pulses 2+. No peripheral edema. Contractures noted. NEUROLOGICAL: RASS -3. Tracts with eyes. Withdraws to pain. Neurologic exam is at baseline for the patient from my multiple prior neurologic exams. Results - Labs CBC & Chem 7: 06/29/18 04:02 06/29/18 04:02 Laboratory Results - last 24 hr 06/28/18 06/29/18 06/29/18 04:47 12:03 17:21 WBC Cancelled Corrected WBC Cancelled RBC Cancelled Hgb Cancelled Hct Cancelled MCV Cancelled MCH Cancelled MCHC Cancelled RDW Cancelled Plt Count Cancelled MPV Cancelled Hematology Comments Cancelled POC Glucose 96 75 Phenytoin 06/29/18 06/30/18 06/30/18 19:00 00:50 05:19 WBC Corrected WBC RBC Hgb Hct MCV MCH MCHC RDW Plt Count MPV Hematology Comments POC Glucose 110 120 H Phenytoin Less than 0.4 L Microbiology 06/26/18 12:55 Blood - Peripheral Aerobic Blood Culture - Preliminary No growth in 3 days 06/26/18 12:55 Blood - Peripheral Anaerobic Blood Culture - Preliminary No growth in 3 days 06/26/18 13:20 Blood - Peripheral Aerobic Blood Culture - Preliminary No growth in 3 days 06/26/18 13:20 Blood - Peripheral Anaerobic Blood Culture - Preliminary No growth in 3 days 06/26/18 16:00 Sputum - Tracheal Aspirate Gram Stain - Final 06/26/18 16:00 Sputum - Tracheal Aspirate Sputum Culture - Final Escherichia coli ESBL positive Pseudomonas aeruginosa Assessment and Plan - Assessment (1) Sepsis Code(s): A41.9 - Sepsis, unspecified organism Status: Acute (2) Anoxic encephalopathy Code(s): G93.1 - Anoxic brain damage, not elsewhere classified Status: Chronic (3) Seizure Code(s): R56.9 - Unspecified convulsions Status: Acute (4) Anoxic brain damage Code(s): G93.1 - Anoxic brain damage, not elsewhere classified Status: Acute - Plan This is a 33-year-old male wanted to the critical care medicine service who has a history of severe neurologic deficit and 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 Sepsis: Afebrile overnight -Continue Zerbaxa to cover MDRO GNR -Repeating blood cultures -Follow-up on blood cultures and urine cultures -Continue to follow temperatures and currently afebrile -Continue to follow labs Seizure-like activity: -Continue Ativan as needed -Continue Keppra -Added Dilantin -EEG pending -Consulted neurology, recommendations appreciated -Continue morphine as needed Chronic encephalopathic: -Continue tracheostomy -Continue tube feeds Hypertension: Patient's blood pressure fluctuates to hyper and hypotensive. Attempt to maintain normal blood pressure -Clonidine per protocol DVT prophylaxis: -SCDs and continue Eliquis Case Management consulted to help with Discharge planning Code Status: Full code Discharge Planning: Likely discharge back to long-term facility frequent readmissions could be difficult discharge, have consulted case management. Will need clearance by infectious disease prior to discharge (1) Sepsis Qualifiers: Sepsis type: sepsis due to unspecified organism Qualified Code(s): A41.9 - Sepsis, unspecified organism
--- NOTE | 2018-06-30 08:56 | P.PNNEU ---
Subjective Subjective Comments: No acute events no seizure Active Medications: Active Medications Al Hydroxide/Mg Hydroxide (Milk Of Magndemetria Liq) 30 ml PO Q12H PRN PRN Reason: Mild Constipation Albuterol (Duoneb Neb (Prn)) 1 ampul NEB Q2HR NEB PRN PRN Reason: WHEEZING Apixaban (Eliquis) 5 mg PO BID [facility] Last Admin: 06/29/18 21:31 Dose: 5 mg Baclofen (Lioresal) 20 mg PO BID [facility] Last Admin: 06/29/18 21:31 Dose: 20 mg Bisacodyl (Dulcolax Supp) 10 mg RECTAL DAILY PRN PRN Reason: SEVERE CONSITIPATION Chlorhexidine Gluconate (Chlorhexidine 2% Cloth) 3 pack TOPICAL DAILY@0400 [facility] Stop: 07/02/18 03:59 Last Admin: 06/30/18 05:35 Dose: 3 pack Chlorhexidine Gluconate (Chlorhexidine 2% Cloth) 3 pack TOPICAL DAILY@0400 PRN PRN Reason: Extra cloth needed Stop: 07/02/18 03:59 Clonidine HCl (Catapres) 0.1 mg PO Q4H PRN PRN Reason: BP>180/90 Colistimethate Sodium (Coly-Mycin M Neb) 150 mg INH BID NEB [facility] Last Admin: 06/29/18 20:52 Dose: Not Given Famotidine (Pepcid) 20 mg PO BID [facility] Last Admin: 06/29/18 21:31 Dose: 20 mg Sodium Chloride (Ns Inj) 1,000 mls @ 0 mls/hr IV.SIG .Q0M [facility] Last Infusion: 06/26/18 14:19 Dose: Infused Magnesium Sulfate Inj 4 gm/ (Sodium Chloride) 100 mls @ 50 mls/hr IV.SIG UNSCH PRN PRN Reason: For Magnesium 0.9 - 1.1 mg/dL Magnesium Sulfate Inj 2 gm/ (Sodium Chloride) 100 mls @ 50 mls/hr IV.SIG UNSCH PRN PRN Reason: For Magnesium 1.2 - 1.6 mg/dL Potassium Chloride (Kcl 40 Meq Premix Inj) 40 meq in 100 mls @ 50 mls/hr IV.SIG Q2H PRN PRN Reason: For Potassium 2.8 - 3.2 mEq/L Potassium Chloride (Kcl 20 Meq Premix Inj) 20 meq in 100 mls @ 50 mls/hr IV.SIG Q2H PRN PRN Reason: For Potassium 3.3 - 3.5 mEq/L Potassium Chloride (Kcl 20 Meq Premix Inj) 20 meq in 100 mls @ 50 mls/hr IV.SIG Q2H PRN PRN Reason: For Potassium 2.8 - 3.2 mEq/L Potassium Phosphate 30 mmol/ (Sodium Chloride) 260 mls @ 42 mls/hr IV.SIG UNSCH PRN PRN Reason: SEE LABEL COMMENTS Sodium Phosphate 30 mmol/ (Sodium Chloride) 260 mls @ 42 mls/hr IV.SIG UNSCH PRN PRN Reason: For Phosphorus < 2.5 mg/dL Potassium Chloride (Kcl 40 Meq Premix Inj) 40 meq in 100 mls @ 25 mls/hr IV.SIG UNSCH PRN PRN Reason: For Potassium 3.3 - 3.5 mEq/L Ceftolozane/Tazobactam 1,500 (mg/ Sodium Chloride) 100 mls @ 100 mls/hr IV.SIG Q8H [facility] Last Infusion: 06/30/18 05:35 Dose: Infused Dextrose/Lactated Ringer's (D5w/Lr Inj) 1,000 mls @ 100 mls/hr IV.CONT .Q10H [facility] Last Admin: 06/30/18 05:35 Dose: 100 mls/hr Lactulose (Lactulose Liq) 30 ml PO DAILY PRN PRN Reason: SEVERE CONSITIPATION Levetiracetam (Keppra) 1,000 mg PO TID [facility] Last Admin: 06/29/18 18:42 Dose: 1,000 mg Loratadine (Claritin) 10 mg G-TUBE DAILY [facility] Last Admin: 06/29/18 09:36 Dose: 10 mg Lorazepam (Ativan Inj) 1 mg IV.PUSH Q1H PRN PRN Reason: Agitation/sedation Last Admin: 06/28/18 14:03 Dose: 1 mg Magnesium Oxide (Mag-Ox) 800 mg PO UNSCH PRN PRN Reason: For Magnesium 1.2 - 1.6 mg/dL Morphine Sulfate (Morphine Inj) 2 mg IV.PUSH Q4H PRN PRN Reason: pain 6-10 or agitation Last Admin: 06/30/18 00:13 Dose: 2 mg Multivitamins/Iron (Poly-Vi-Kerry W/Iron Drops) 1 ml G-TUBE DAILY [facility] Last Admin: 06/29/18 09:40 Dose: 1 ml Ondansetron HCl (Zofran Inj) 4 mg IV.PUSH Q6H PRN PRN Reason: NAUSEA OR VOMITING Phenytoin Sodium (Dilantin) 100 mg PO TID [facility] Last Admin: 06/29/18 18:43 Dose: 100 mg Phenytoin Sodium (Dilantin) 30 mg PO TID [facility] Last Admin: 06/29/18 18:43 Dose: Not Given Potassium Bicarb/Potassium Chloride (K-Lyte Cl Eff) 50 meq PO UNSCH PRN PRN Reason: For Potassium 3.3 - 3.5 mEq/L Potassium Phosphate (K-Phos Original) 2,000 mg PO Q4H PRN PRN Reason: Phosphorus Less Than 2.5 mg/dL Potassium Phosphate (K-Phos Original) 2,000 mg PO UNSCH PRN PRN Reason: SEE LABEL COMMENTS Senna/Docusate Sodium (Shala-Colace) 1 tab PO BID [facility] Last Admin: 06/29/18 21:30 Dose: 1 tab Sennosides (Senokot) 17.2 mg PO Q12H PRN PRN Reason: Moderate Constipation Sodium Chloride (Ns Flush) 2 ml IV.FLUSH BID [facility] Last Admin: 06/29/18 21:31 Dose: 2 ml Sodium Chloride (Ns Flush) 2 ml IV.FLUSH UNSCH PRN PRN Reason: FLUSH AFTER USING IV ACCESS Allergies/Adverse Reactions: Allergies Allergy/AdvReac Type Severity Reaction Status Date / Time haloperidol AdvReac Severe Seizures Verified 06/09/18 09:58 *MDRO Multi-Drug Resistant AdvReac Unknown Dry Mucus Uncoded 06/09/18 09:58 Organism Membranes Review of Systems unobtainable due to mental status Physical Exam Vital signs: Vital Signs 06/29/18 09:00 06/29/18 10:00 06/29/18 11:00 Temperature Pulse Rate 60 63 46 L Respiratory Rate 11 L 19 4 L Blood Pressure 127/55 L Pulse Oximetry 98 100 100 06/29/18 12:00 06/29/18 13:01 06/29/18 14:00 Temperature Pulse Rate 72 45 L 109 H Respiratory Rate 16 30 H Blood Pressure 138/66 103/52 L 109/80 Pulse Oximetry 100 69 L 06/29/18 15:00 06/29/18 16:00 06/29/18 16:24 Temperature Pulse Rate 76 64 57 L Respiratory Rate 22 16 21 Blood Pressure 117/75 128/80 Pulse Oximetry 100 100 06/29/18 17:00 06/29/18 18:00 06/29/18 19:00 Temperature 99.0 F Pulse Rate 52 L 65 48 L Respiratory Rate 9 L 23 Blood Pressure 127/69 110/54 L Pulse Oximetry 100 100 06/29/18 20:00 06/29/18 20:52 06/29/18 22:00 Temperature Pulse Rate 48 L 87 Respiratory Rate Blood Pressure Pulse Oximetry 100 100 06/30/18 00:00 06/30/18 02:00 06/30/18 04:00 Temperature 97.8 F Pulse Rate 83 41 L 42 L Respiratory Rate 12 Blood Pressure 140/60 Pulse Oximetry 99 06/30/18 05:00 06/30/18 06:00 Temperature Pulse Rate 68 Respiratory Rate Blood Pressure Pulse Oximetry 100 Intake & Output 06/29/18 06/30/18 06/30/18 18:59 06:59 18:59 Intake Total 1200 / 1200 1200 / 1200 Output Total 1300 / 1300 750 / 750 Balance -100 / -100 450 / 450 Weight 65 kg Intake: IV 1100 / 1100 1200 / 1200 D5W/LR Inj 1,000 ML @ 100 mls/ 1000 / 1000 1000 / 1000 hr IV.CONT .Q10H [facility] Rx#: [id number] Zerbaxa Inj 1,500 MG In NS Inj 100 / 100 200 / 200 100 ML @ 100 mls/hr IV.SIG Q8H [facility] Rx#:[id number] Oral 0 / 0 0 / 0 Tube Feeding 0 / 0 Tube Irrigant 100 / 100 Output: Urine 1300 / 1300 750 / 750 Stool 0 / 0 0 / 0 Urine/Stool Mix 0 / 0 0 / 0 Other: Post Void Residual 0 # Voids 3 # Incontinent Voids 3 # Bowel Movements 0 0 # Incontinent Bowel Movements 0 0 Narrative: Alerts, in bed no acute distress no involuntary movements no clear gaze deviation, nonverbal not following, head turn to the side as increased tone mild quadriparesis contractures brisk reflexe - Constitutional no acute distress Objective Laboratory Results - last 24 hr 06/28/18 06/29/18 06/29/18 04:47 12:03 17:21 WBC Cancelled Corrected WBC Cancelled RBC Cancelled Hgb Cancelled Hct Cancelled MCV Cancelled MCH Cancelled MCHC Cancelled RDW Cancelled Plt Count Cancelled MPV Cancelled Hematology Comments Cancelled POC Glucose 96 75 Phenytoin 06/29/18 06/30/18 06/30/18 19:00 00:50 05:19 WBC Corrected WBC RBC Hgb Hct MCV MCH MCHC RDW Plt Count MPV Hematology Comments POC Glucose 110 120 H Phenytoin Less than 0.4 L Microbiology 06/26/18 12:55 Aerobic Blood Culture - Preliminary Blood - Peripheral No growth in 3 days Anaerobic Blood Culture - Preliminary No growth in 3 days 06/26/18 13:20 Aerobic Blood Culture - Preliminary Blood - Peripheral No growth in 3 days Anaerobic Blood Culture - Preliminary No growth in 3 days 06/26/18 16:00 Gram Stain - Final Sputum - Tracheal Aspirate Sputum Culture - Final Escherichia coli ESBL positive Pseudomonas aeruginosa Review/Management - Diagnosis (1) Anoxic encephalopathy Code(s): G93.1 - Anoxic brain damage, not elsewhere classified Status: Chronic Current Visit: No (2) Feeding tube dysfunction Code(s): T85.598A - Other mechanical complication of other gastrointestinal prosthetic devices, implants and grafts, initial encounter Status: Resolved Current Visit: No - Review/Management Plan: Federico Rea added Going for a G-tube revision Follow-up EEG Follow levels We will follow peripherally
--- NOTE | 2018-06-30 09:38 | P.PNID ---
Subjective Remarks: Patient is a 33-year-old male, who has anoxic brain damage, chronically has a trach in place, resides in the [facility], brought into the hospital for evaluation of fever. And had any other accompanying signs and symptoms on this patient. Patient has had 2 hospitalization recently. One was May 22 - June 03, and at that time he was treated for pneumonia. His sputum culture grew a resistant Pseudomonas, and Providencia. On June 09, he was in the special procedure getting work done on his PEG tube when he developed hypotension and diaphoresis. He was readmitted to the hospital June 09, until June 24. At that time he was treated for Pseudomonas and E. coli ESBL positive sputum culture. He was just discharged June 24, and he was brought back in for evaluation of the fever. In the ED he was tachycardic, febrile up to 103, and had an elevated lactic acid. Patient is being admitted for evaluation and treatment of sepsis. His chest x-ray showing underinflated lungs with no acute infiltrate. His WBC is normal. Patient has no indwelling Nolasco catheter. His BP is okay. Infectious disease consultation has been requested to assist in evaluation and treatment of his sepsis. Notes reviewed D/W RN Temps ok Going for PEG replacement - problems with clogging Seen by neuro yesterday for SZ No SZ today Copious oral secretions BP ok WBC down to 3.6 UA ok BC negative Sputum C/S E coli ESBL+ and PSAE CXR with vascular congestion Antibiotics: Zerbaxa Colistin nebs Lines: PIV Past Medical History: Tracheostomy dependent (Acute) GERD (gastroesophageal reflux disease) (Acute) Pancreatitis (Acute) Diabetes mellitus (Acute) Dyslipidemia (Acute) HTN (hypertension) (Acute) Seizure (Acute) DVT (deep venous thrombosis) (Acute) Anoxic brain damage (Acute) PEG (percutaneous endoscopic gastrostomy) status (Acute) Allergies/Adverse Reactions: Allergies haloperidol Adverse Reaction (Severe, Verified 06/09/18 09:58) Seizures *MDRO Multi-Drug Resistant Organism Adverse Reaction (Unknown, Uncoded 06/09/18 09:58) Dry Mucus Membranes MRSA (sputum) - 04/25/16 & 05/23/16 MRSA PCR Screen POSITIVE - 04/25/2016 ESBL+E.Coli (blood-05/22/16) Objective Vital Signs 06/29/18 10:00 06/29/18 11:00 06/29/18 12:00 Temperature Pulse Rate 63 46 L 72 Respiratory Rate 19 4 L Blood Pressure 127/55 L 138/66 Pulse Oximetry 100 100 06/29/18 13:01 06/29/18 14:00 06/29/18 15:00 Temperature Pulse Rate 45 L 109 H 76 Respiratory Rate 16 30 H 22 Blood Pressure 103/52 L 109/80 117/75 Pulse Oximetry 100 69 L 100 06/29/18 16:00 06/29/18 16:24 06/29/18 17:00 Temperature Pulse Rate 64 57 L 52 L Respiratory Rate 16 21 9 L Blood Pressure 128/80 127/69 Pulse Oximetry 100 100 06/29/18 18:00 06/29/18 19:00 06/29/18 20:00 Temperature 99.0 F Pulse Rate 65 48 L 48 L Respiratory Rate 23 Blood Pressure 110/54 L Pulse Oximetry 100 100 06/29/18 20:52 06/29/18 22:00 06/30/18 00:00 Temperature Pulse Rate 87 83 Respiratory Rate Blood Pressure Pulse Oximetry 100 06/30/18 02:00 06/30/18 04:00 06/30/18 05:00 Temperature 97.8 F Pulse Rate 41 L 42 L Respiratory Rate 12 Blood Pressure 140/60 Pulse Oximetry 99 100 06/30/18 06:00 Temperature Pulse Rate 68 Respiratory Rate Blood Pressure Pulse Oximetry Intake & Output 06/29/18 06/30/18 06/30/18 18:59 06:59 18:59 Intake Total 1200 / 1200 1200 / 1200 Output Total 1300 / 1300 750 / 750 Balance -100 / -100 450 / 450 Weight 65 kg Intake: IV 1100 / 1100 1200 / 1200 D5W/LR Inj 1,000 ML @ 100 mls/ 1000 / 1000 1000 / 1000 hr IV.CONT .Q10H [facility] Rx#: [id number] Zerbaxa Inj 1,500 MG In NS Inj 100 / 100 200 / 200 100 ML @ 100 mls/hr IV.SIG Q8H [facility] Rx#:[id number] Oral 0 / 0 0 / 0 Tube Feeding 0 / 0 Tube Irrigant 100 / 100 Output: Urine 1300 / 1300 750 / 750 Stool 0 / 0 0 / 0 Urine/Stool Mix 0 / 0 0 / 0 Other: Post Void Residual 0 # Voids 3 # Incontinent Voids 3 # Bowel Movements 0 0 # Incontinent Bowel Movements 0 0 06/26/18 12:55 Blood - Peripheral Aerobic Blood Culture - Preliminary No growth in 3 days 06/26/18 12:55 Blood - Peripheral Anaerobic Blood Culture - Preliminary No growth in 3 days 06/26/18 13:20 Blood - Peripheral Aerobic Blood Culture - Preliminary No growth in 3 days 06/26/18 13:20 Blood - Peripheral Anaerobic Blood Culture - Preliminary No growth in 3 days 06/26/18 16:00 Sputum - Tracheal Aspirate Gram Stain - Final 06/26/18 16:00 Sputum - Tracheal Aspirate Sputum Culture - Final Escherichia coli ESBL positive Pseudomonas aeruginosa 06/26/18 13:10 Catheterized Urine Urine Culture - Final No growth in 48 hours Lab - Hematology Results 06/28/18 06/29/18 04:47 04:02 WBC Cancelled 3.6 L Corrected WBC Cancelled RBC Cancelled 3.73 L Hgb Cancelled 11.8 L Hct Cancelled 34.3 L MCV Cancelled 92.0 MCH Cancelled 31.6 MCHC Cancelled 34.3 RDW Cancelled 13.2 Plt Count Cancelled 154 MPV Cancelled 10.6 Hematology Comments Cancelled Lab - Chemistry Results 06/28/18 06/29/18 06/29/18 14:08 04:02 05:50 Sodium 145 Potassium 3.5 D Chloride 108 H Carbon Dioxide 29.1 Anion Gap 8 BUN 6 L Creatinine 0.63 Estimated GFR Greater than 89 POC Glucose 99 107 Random Glucose 86 Calcium 8.5 D 06/29/18 06/29/18 06/30/18 12:03 17:21 00:50 Sodium Potassium Chloride Carbon Dioxide Anion Gap BUN Creatinine Estimated GFR POC Glucose 96 75 110 Random Glucose Calcium 06/30/18 05:19 Sodium Potassium Chloride Carbon Dioxide Anion Gap BUN Creatinine Estimated GFR POC Glucose 120 H Random Glucose Calcium Imaging: ITS Impressions Chest X-Ray 06/28/18 00:00 CONCLUSION: 1. Moderate pulmonary vascular congestion. 2. Cardiomegaly. Physical Exam: GENERAL: awake, but no interaction, has posturing, drooling clear secretions from his mouth. Has trach in place, not in respiratory distress. SKIN: Warm and moist. No generalized rash, no ecchymoses and no evidence of embolic lesions. HEAD: Atraumatic. Normocephalic. No temporal wasting, or tenderness. EYES: [place] conjunctiva. No petechia or hemorrhage. Pupils equal, round and reactive to light. No scleral icterus. No injection or drainage. EARS, NOSE AND THROAT: Nose without bleeding or purulent nasal discharge. Mucous membranes moist. A lot of oral secretions, drooling. . NECK: Tracheostomy site ok, has drainage in the trach dressing, looks light yellow. CARDIOVASCULAR: Regular rate and rhythm, tachycardic. No murmurs, rubs or gallops heard RESPIRATORY: No rales, wheezing or rhonchi. Decreased at bases ABDOMEN: Soft, non-tender, nondistended. Bowel sounds present and normoactive. No guarding. No rebound. No organomegaly. EXTREMITIES: No clubbing, cyanosis, or edema. Both feet plantar flexed. IV sites on both feet NEUROLOGICAL: Awake, no interaction. Posturing. UE and LE spastic. : Has condom cath in place, urine looks clear PSYCHIATRIC: Unable to assess. 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
--- NOTE | 2018-06-30 10:46 | IR ---
EXAM DATE: 06/30/2018 10:11 AM EDT AGE/SEX: 33 years / Male INDICATIONS: Patient presents with history of anoxic brain injury in need of transgastric jejunal tu be exchange due to clogged tube. CLINICAL DATA: This is the patient's subsequent encounter. Patient reports that signs and symptoms h ave been present for 4 - 6 days and indicates a pain score of Nonresponsive. MEDICAL/SURGICAL HISTORY: . GERD, Pancreatitis, Diabetes, HTN, DVT, Anoxic brain injury. . Gas trostomy tube placement, Tracheostomy tube dependent. COMPARISON: No prior exams available for comparison. FLUORO TIME (min): 1.45 IMAGE SERIES: 1 CONTRAST (cc): 5 cc Omnipaque (iohexol) 350 DEVICE(S): 22 Azeri Transgastric tube . . PROCEDURE: 1. Fluoroscopically guided gastrojejunostomy tube exchange. 2. Conscious sedation with continuous EKG and oximetry monitoring. The risks, benefits and alternatives to the procedure were explained and verbal and written consent w as obtained. The site was prepped in sterile fashion. Full sterile technique was used, including ca p, mask, sterile gloves and gown and a large sterile sheet. Hand hygiene and 2% chlorhexidine and/or betadine/alcohol prep was utilized per protocol for cutaneous antisepsis. The skin and subcutaneous tissues were infiltrated with local anesthetic solution. With fluoroscopic guidance a guidewire was passed through the previous gastrojejunostomy tube and a f resh tube was placed over the guidewire. The balloon was inflated with appropriate volume of saline. Injection of positive contrast demonstrates good position of the gastric and jejunal lumens of the tube. Conscious sedation was performed with the prescribed dosages and duration as above in the presence of an independent trained radiology nurse to assist in the monitoring of the patient. EKG and oximetry remained stable throughout the procedure. The patient tolerated the procedure well and there were n o complications. The patient was sent to post anesthesia recovery in stable condition. CONCLUSION: 1. Uncomplicated gastrojejunostomy tube exchange as above. Electronically signed by: Benigno Pimentel MD 06/30/2018 10:45 AM EDT
[2018-06-30] MEDS: Loratadine 10 MG Tablet G-TUBE SCH (14:05)
[2018-06-30] MEDS: Phenytoin Sodium 100 MG Capsule PO SCH ×3 (14:05→18:17)
[2018-06-30] MEDS: Multivitamins/Iron Drops (Fe=10 MG/ML) 50 ML Bottle G-TUBE SCH (14:06)
[2018-06-30] MEDS: levETIRAcetam 500 MG Tablet PO SCH ×3 (14:06→18:17)
[2018-06-30] MEDS: Famotidine 20 MG Tablet PO SCH ×2 (14:06→20:43)
[2018-06-30] MEDS: Senna/Docusate Sodium 8.6/50 MG Tablet PO SCH ×2 (14:06→20:43)
--- NOTE | 2018-06-30 15:53 | MG ---
cc: Jose La MD, PhD TEST NUMBER: [id number]. TECHNIQUE: A 17-channel EEG. DESCRIPTION: Background rhythm is relatively low amplitude rhythm in the theta and delta frequencies. There is prominent eye movement artifact in the tracing. I do not see any definite epileptiform activity. No lateralizing features are seen. There is muscle artifact as well. The amplitude is roughly 2-5 microvolts. INTERPRETATION: Abnormal study consistent with a significant encephalopathy. Jose La MD, PhD DON/balta , 03:44 PM , 03:48 PM
[2018-06-30 16:24] LABS: Hematocrit 37.8 % (39.0-51.0); Hemoglobin 12.8 gm/dL (13.0-17.0); Mean Corpuscular HGB Conc 33.7 % (32.0-36.0); Mean Corpuscular Hemoglobin 31.5 pg (27.0-34.0); Mean Corpuscular Volume 93.4 fL (80.0-100.0); Mean Platelet Volume 10.7 fL (7.0-11.0); Platelet Count 188 th/mm3 (150-450); Red Blood Count 4.05 mil/mm3 (4.50-5.90); Red Cell Distribution Width 13.2 % (11.6-17.2); White Blood Count 4.3 th/mm3 (4.0-11.0)
[2018-06-30 16:46] LABS: Anion Gap 10 meq/L (5-15); Blood Urea Nitrogen 3 mg/dL (7-18); Calcium 8.7 mg/dL (8.5-10.1); Carbon Dioxide 24.8 meq/L (21.0-32.0); Chloride 110 meq/L (98-107); Glomerular Filtration Rate Greater Than 89 mL/min (>89); Glucose,Random 91 mg/dL (74-106); Potassium 3.4 meq/L (3.5-5.1); Sodium 145 meq/L (136-145)
[2018-06-30 16:47] LABS: Phenytoin (Dilantin) 1.7 mcg/mL (10.0-20.0)
[2018-07-01] MEDS: SODIUM CHLOR 0.9% IV.SIG SCH ×3 (01:14→16:13)
[2018-07-01] MEDS: TAZOBACTAM IV.SIG SCH ×3 (01:14→16:13)
[2018-07-01] MEDS: CEFTOLOZANE IV.SIG SCH ×3 (01:14→16:13)
[2018-07-01] MEDS: Morphine Sulfate Inj 2 MG/ML Vial IV.PUSH PRN (03:56)
[2018-07-01 05:54] LABS: Anion Gap 12 meq/L (5-15); Blood Urea Nitrogen 4 mg/dL (7-18); Calcium 8.5 mg/dL (8.5-10.1); Carbon Dioxide 20.3 meq/L (21.0-32.0); Chloride 111 meq/L (98-107); Glomerular Filtration Rate Greater Than 89 mL/min (>89); Glucose,Random 71 mg/dL (74-106); Phenytoin (Dilantin) 1.8 mcg/mL (10.0-20.0); Potassium 4.6 meq/L (3.5-5.1)
[2018-07-01 06:06] LABS: Sodium 143 meq/L (136-145)
[2018-07-01 07:26] LABS: Hematocrit 41.7 % (39.0-51.0); Hemoglobin 13.5 gm/dL (13.0-17.0); Mean Corpuscular HGB Conc 32.4 % (32.0-36.0); Mean Corpuscular Hemoglobin 31.3 pg (27.0-34.0); Mean Corpuscular Volume 96.6 fL (80.0-100.0); Mean Platelet Volume 10.8 fL (7.0-11.0); Platelet Count 127 th/mm3 (150-450); Red Blood Count 4.32 mil/mm3 (4.50-5.90); Red Cell Distribution Width 13.3 % (11.6-17.2); White Blood Count 3.8 th/mm3 (4.0-11.0)
[2018-07-01] MEDS: Phenytoin Sodium 100 MG Capsule PO SCH ×2 (13:56→17:49)
[2018-07-01] MEDS: levETIRAcetam 500 MG Tablet PO SCH (13:56)
[2018-07-01] MEDS: Loratadine 10 MG Tablet G-TUBE SCH (13:56)
[2018-07-01] MEDS: Senna/Docusate Sodium 8.6/50 MG Tablet PO SCH ×2 (13:57→21:41)
[2018-07-01] MEDS: Multivitamins/Iron Drops (Fe=10 MG/ML) 50 ML Bottle G-TUBE SCH (13:57)
[2018-07-01] MEDS: Famotidine 20 MG Tablet PO SCH ×2 (13:57→21:41)
[2018-07-01] MEDS: Chlorhexidine Gluconate 2% 1 Pack (2 Cloths) TOPICAL SCH (16:12)
[2018-07-01] MEDS: levETIRAcetam 1000mg/100mL Inj 100 ML IV.SIG SCH (16:13)
[2018-07-01] MEDS: Dextrose 5%/Lactated Ringer's 1,000 ML IV.CONT SCH ×2 (16:14)
--- NOTE | 2018-07-01 17:00 | P.PNIM ---
Subjective Interval history: Patient is nonverbal. G/J-tube dislodged overnight. Replacement pending. Patient's condition discussed with his mother. Physical Exam Vital signs: Vital Signs 06/30/18 17:00 06/30/18 17:01 06/30/18 17:09 Temperature Pulse Rate 86 70 71 Respiratory Rate 20 19 24 Blood Pressure 187/85 H 190/82 H 201/83 H Pulse Oximetry 100 100 100 06/30/18 17:15 06/30/18 17:17 06/30/18 17:30 Temperature Pulse Rate 56 L 49 L 47 L Respiratory Rate 18 11 L 11 L Blood Pressure 188/74 H 175/72 H 171/55 H Pulse Oximetry 100 100 100 06/30/18 17:45 06/30/18 18:00 06/30/18 18:15 Temperature Pulse Rate 45 L 96 H 52 L Respiratory Rate 8 L 29 H 9 L Blood Pressure 169/71 H 182/80 H 186/78 H Pulse Oximetry 100 100 100 06/30/18 18:20 06/30/18 18:27 06/30/18 18:30 Temperature Pulse Rate 48 L 68 83 Respiratory Rate 9 L 19 26 H Blood Pressure 184/78 H 171/79 H 206/83 H Pulse Oximetry 100 100 100 06/30/18 20:00 06/30/18 20:36 06/30/18 22:00 Temperature 98.7 F Pulse Rate 55 L 43 L Respiratory Rate 16 Blood Pressure 187/77 H Pulse Oximetry 100 97 07/01/18 00:00 07/01/18 02:00 07/01/18 04:00 Temperature 98.5 F 98.4 F Pulse Rate 41 L 37 L 53 L Respiratory Rate 14 15 Blood Pressure 133/61 156/66 H Pulse Oximetry 100 100 07/01/18 06:00 07/01/18 08:00 07/01/18 08:01 Temperature Pulse Rate 35 L 38 L 38 L Respiratory Rate 3 L 0 L Blood Pressure 113/51 L Pulse Oximetry 100 100 07/01/18 08:22 07/01/18 09:00 07/01/18 09:01 Temperature Pulse Rate 36 L 48 L 48 L Respiratory Rate 14 12 13 Blood Pressure 120/58 L 153/88 H Pulse Oximetry 100 71 L 83 L 07/01/18 10:00 07/01/18 10:01 07/01/18 10:59 Temperature Pulse Rate 38 L 38 L 74 Respiratory Rate 19 17 14 Blood Pressure 140/61 Pulse Oximetry 100 100 07/01/18 11:00 07/01/18 11:01 07/01/18 12:00 Temperature Pulse Rate 38 L 43 L 34 L Respiratory Rate 18 15 9 L Blood Pressure 142/62 H Pulse Oximetry 60 L 60 L 07/01/18 12:01 07/01/18 13:00 Temperature Pulse Rate 50 L 102 H Respiratory Rate 16 25 H Blood Pressure 136/64 155/87 H Pulse Oximetry 91 L Intake & Output 06/30/18 07/01/18 07/01/18 18:59 06:59 18:59 Intake Total 1000 / 1000 200 / 200 1000 / 1000 Output Total 550 / 550 500 / 500 Balance 450 / 450 -300 / -300 1000 / 1000 Weight 65 kg Intake: IV 1000 / 1000 200 / 200 1000 / 1000 D5W/LR Inj 1,000 ML @ 100 mls/ 1000 / 1000 1000 / 1000 hr IV.CONT .Q10H [facility] Rx#: [id number] Zerbaxa Inj 1,500 MG In NS Inj 200 / 200 100 ML @ 100 mls/hr IV.SIG Q8H [facility] Rx#:[id number] Output: Urine 550 / 550 500 / 500 Other: Date of Last Bowel Movement 06/30/18 06/30/18 06/30/18 # Bowel Movements 1 0 Narrative: GENERAL: NAD, A&Ox0 HEAD: Normocephalic. NECK: Supple, trachea midline. No lymphadenopathy. EYES: No scleral icterus. No injection or drainage. CARDIOVASCULAR: Regular rate and rhythm without murmurs, gallops, or rubs. RESPIRATORY: Breath sounds equal bilaterally. No accessory muscle use. GASTROINTESTINAL: Abdomen soft, non-tender, nondistended. MUSCULOSKELETAL: No cyanosis, or edema. Global contractures. SKIN: Warm and dry. NEURO: No focal neurological deficits. Results - Labs CBC & Chem 7: 07/01/18 06:23 07/01/18 04:26 Laboratory Results - last 24 hr 06/29/18 07/01/18 07/01/18 19:00 01:04 04:26 WBC RBC Hgb Hct MCV MCH MCHC RDW Plt Count MPV Sodium 143 Potassium 4.6 D Chloride 111 H Carbon Dioxide 20.3 L Anion Gap 12 BUN 4 L Creatinine 0.83 Estimated GFR Greater than 89 POC Glucose 77 Random Glucose 71 L Calcium 8.5 Phenytoin 1.8 L Levetiracetam 5.7 L 07/01/18 06:23 WBC 3.8 L RBC 4.32 L Hgb 13.5 Hct 41.7 MCV 96.6 MCH 31.3 MCHC 32.4 RDW 13.3 Plt Count 127 L D MPV 10.8 Sodium Potassium Chloride Carbon Dioxide Anion Gap BUN Creatinine Estimated GFR POC Glucose Random Glucose Calcium Phenytoin Levetiracetam Microbiology 06/26/18 12:55 Blood - Peripheral Aerobic Blood Culture - Final No growth in 5 days 06/26/18 12:55 Blood - Peripheral Anaerobic Blood Culture - Final No growth in 5 days 06/26/18 13:20 Blood - Peripheral Aerobic Blood Culture - Final No growth in 5 days 06/26/18 13:20 Blood - Peripheral Anaerobic Blood Culture - Final No growth in 5 days Assessment and Plan - Assessment (1) Sepsis Code(s): A41.9 - Sepsis, unspecified organism Status: Acute (2) Anoxic encephalopathy Code(s): G93.1 - Anoxic brain damage, not elsewhere classified Status: Chronic (3) Seizure Code(s): R56.9 - Unspecified convulsions Status: Acute (4) Anoxic brain damage Code(s): G93.1 - Anoxic brain damage, not elsewhere classified Status: Acute - Plan 33-year-old male with chronic global neurologic debility admitted secondary to sepsis Sepsis Improving Continue Zerbaxa to cover MDRO GNR Follow blood cultures G/J-tube dysfunction Replacement with IR pending Seizure-like activity: Continue as needed Ativan Keppra is changed to IV for now Monitor for seizure recurrence Continue Dilantin Neurology following Chronic encephalopathic: Continue tracheostomy Continue tube feeds Hypertension: As needed clonidine Continue baseline treatments Follow blood pressures DVT prophylaxis: Continue SCDs Continue Eliquis Discharge Planning: Ultimately patient will discharge back to shelter facility New G/J-tube needed prior to discharge (1) Sepsis Qualifiers: Sepsis type: sepsis due to unspecified organism Qualified Code(s): A41.9 - Sepsis, unspecified organism
[2018-07-02] MEDS: levETIRAcetam 1000mg/100mL Inj 100 ML IV.SIG SCH ×2 (00:29→14:42)
[2018-07-02] MEDS: SODIUM CHLOR 0.9% IV.SIG SCH ×3 (00:39→17:32)
[2018-07-02] MEDS: CEFTOLOZANE IV.SIG SCH ×3 (00:39→17:32)
[2018-07-02] MEDS: TAZOBACTAM IV.SIG SCH ×3 (00:39→17:32)
[2018-07-02] MEDS: Dextrose 5%/Lactated Ringer's 1,000 ML IV.CONT SCH ×3 (02:15→22:32)
[2018-07-02 05:23] LABS: Hematocrit 38.1 % (39.0-51.0); Hemoglobin 12.9 gm/dL (13.0-17.0); Mean Corpuscular HGB Conc 33.7 % (32.0-36.0); Mean Corpuscular Hemoglobin 31.5 pg (27.0-34.0); Mean Corpuscular Volume 93.2 fL (80.0-100.0); Platelet Count 170 th/mm3 (150-450); Red Blood Count 4.09 mil/mm3 (4.50-5.90); Red Cell Distribution Width 13.3 % (11.6-17.2); White Blood Count 3.8 th/mm3 (4.0-11.0)
[2018-07-02 05:58] LABS: Anion Gap 10 meq/L (5-15); Blood Urea Nitrogen 4 mg/dL (7-18); Calcium 8.7 mg/dL (8.5-10.1); Carbon Dioxide 26.6 meq/L (21.0-32.0); Chloride 109 meq/L (98-107); Glomerular Filtration Rate Greater Than 89 mL/min (>89); Glucose,Random 93 mg/dL (74-106); Phenytoin (Dilantin) 1.3 mcg/mL (10.0-20.0); Potassium 3.2 meq/L (3.5-5.1); Sodium 146 meq/L (136-145)
--- NOTE | 2018-07-02 07:56 | P.PNNEU ---
Subjective Subjective Comments: As G-tube pulled out yesterday. No seizure activity Active Medications: Active Medications Al Hydroxide/Mg Hydroxide (Milk Of Magndemetria Liq) 30 ml PO Q12H PRN PRN Reason: Mild Constipation Albuterol (Duoneb Neb (Prn)) 1 ampul NEB Q2HR NEB PRN PRN Reason: WHEEZING Apixaban (Eliquis) 5 mg PO BID [facility] Last Admin: 07/01/18 21:39 Dose: Not Given Baclofen (Lioresal) 20 mg PO BID [facility] Last Admin: 07/01/18 21:40 Dose: Not Given Bisacodyl (Dulcolax Supp) 10 mg RECTAL DAILY PRN PRN Reason: SEVERE CONSITIPATION Clonidine HCl (Catapres) 0.1 mg PO Q4H PRN PRN Reason: BP>180/90 Colistimethate Sodium (Coly-Mycin M Neb) 150 mg INH BID NEB [facility] Last Admin: 07/02/18 00:45 Dose: 150 mg Famotidine (Pepcid) 20 mg PO BID [facility] Last Admin: 07/01/18 21:41 Dose: Not Given Sodium Chloride (Ns Inj) 1,000 mls @ 0 mls/hr IV.SIG .Q0M [facility] Last Infusion: 06/26/18 14:19 Dose: Infused Magnesium Sulfate Inj 4 gm/ (Sodium Chloride) 100 mls @ 50 mls/hr IV.SIG UNSCH PRN PRN Reason: For Magnesium 0.9 - 1.1 mg/dL Magnesium Sulfate Inj 2 gm/ (Sodium Chloride) 100 mls @ 50 mls/hr IV.SIG UNSCH PRN PRN Reason: For Magnesium 1.2 - 1.6 mg/dL Potassium Chloride (Kcl 40 Meq Premix Inj) 40 meq in 100 mls @ 50 mls/hr IV.SIG Q2H PRN PRN Reason: For Potassium 2.8 - 3.2 mEq/L Potassium Chloride (Kcl 20 Meq Premix Inj) 20 meq in 100 mls @ 50 mls/hr IV.SIG Q2H PRN PRN Reason: For Potassium 3.3 - 3.5 mEq/L Potassium Chloride (Kcl 20 Meq Premix Inj) 20 meq in 100 mls @ 50 mls/hr IV.SIG Q2H PRN PRN Reason: For Potassium 2.8 - 3.2 mEq/L Potassium Phosphate 30 mmol/ (Sodium Chloride) 260 mls @ 42 mls/hr IV.SIG UNSCH PRN PRN Reason: SEE LABEL COMMENTS Sodium Phosphate 30 mmol/ (Sodium Chloride) 260 mls @ 42 mls/hr IV.SIG UNSCH PRN PRN Reason: For Phosphorus < 2.5 mg/dL Potassium Chloride (Kcl 40 Meq Premix Inj) 40 meq in 100 mls @ 25 mls/hr IV.SIG UNSCH PRN PRN Reason: For Potassium 3.3 - 3.5 mEq/L Ceftolozane/Tazobactam 1,500 (mg/ Sodium Chloride) 100 mls @ 100 mls/hr IV.SIG Q8H [facility] Last Admin: 07/02/18 00:39 Dose: 100 mls/hr Dextrose/Lactated Ringer's (D5w/Lr Inj) 1,000 mls @ 100 mls/hr IV.CONT .Q10H [facility] Last Admin: 07/02/18 02:15 Dose: 100 mls/hr Levetiracetam (Keppra 1000 Mg/100 Ml Premix) 100 mls @ 400 mls/hr IV.SIG Q12H [facility] Last Admin: 07/02/18 00:29 Dose: 400 mls/hr Lactulose (Lactulose Liq) 30 ml PO DAILY PRN PRN Reason: SEVERE CONSITIPATION Levetiracetam (Keppra) 1,000 mg PO TID [facility] Last Admin: 07/01/18 13:56 Dose: Not Given Loratadine (Claritin) 10 mg G-TUBE DAILY [facility] Last Admin: 07/01/18 13:56 Dose: Not Given Lorazepam (Ativan Inj) 1 mg IV.PUSH Q1H PRN PRN Reason: Agitation/sedation Last Admin: 07/02/18 00:28 Dose: 1 mg Magnesium Oxide (Mag-Ox) 800 mg PO UNSCH PRN PRN Reason: For Magnesium 1.2 - 1.6 mg/dL Morphine Sulfate (Morphine Inj) 2 mg IV.PUSH Q4H PRN PRN Reason: pain 6-10 or agitation Last Admin: 07/01/18 03:56 Dose: 2 mg Multivitamins/Iron (Poly-Vi-Kerry W/Iron Drops) 1 ml G-TUBE DAILY [facility] Last Admin: 07/01/18 13:57 Dose: Not Given Ondansetron HCl (Zofran Inj) 4 mg IV.PUSH Q6H PRN PRN Reason: NAUSEA OR VOMITING Phenytoin Sodium (Dilantin) 100 mg PO TID [facility] Last Admin: 07/01/18 17:49 Dose: Not Given Phenytoin Sodium (Dilantin) 30 mg PO TID [facility] Last Admin: 07/01/18 17:49 Dose: Not Given Potassium Bicarb/Potassium Chloride (K-Lyte Cl Eff) 50 meq PO UNSCH PRN PRN Reason: For Potassium 3.3 - 3.5 mEq/L Potassium Phosphate (K-Phos Original) 2,000 mg PO Q4H PRN PRN Reason: Phosphorus Less Than 2.5 mg/dL Potassium Phosphate (K-Phos Original) 2,000 mg PO UNSCH PRN PRN Reason: SEE LABEL COMMENTS Senna/Docusate Sodium (Shala-Colace) 1 tab PO BID [facility] Last Admin: 07/01/18 21:41 Dose: Not Given Sennosides (Senokot) 17.2 mg PO Q12H PRN PRN Reason: Moderate Constipation Sodium Chloride (Ns Flush) 2 ml IV.FLUSH BID [facility] Last Admin: 07/01/18 21:40 Dose: 2 ml Sodium Chloride (Ns Flush) 2 ml IV.FLUSH UNSCH PRN PRN Reason: FLUSH AFTER USING IV ACCESS Allergies/Adverse Reactions: Allergies Allergy/AdvReac Type Severity Reaction Status Date / Time haloperidol AdvReac Severe Seizures Verified 06/09/18 09:58 *MDRO Multi-Drug Resistant AdvReac Unknown Dry Mucus Uncoded 06/09/18 09:58 Organism Membranes Review of Systems unobtainable due to mental status Physical Exam Vital signs: Vital Signs 07/01/18 08:00 07/01/18 08:01 07/01/18 08:22 Temperature Pulse Rate 38 L 38 L 36 L Respiratory Rate 3 L 0 L 14 Blood Pressure 113/51 L 120/58 L Pulse Oximetry 100 100 100 07/01/18 09:00 07/01/18 09:01 07/01/18 10:00 Temperature Pulse Rate 48 L 48 L 38 L Respiratory Rate 12 13 19 Blood Pressure 153/88 H Pulse Oximetry 71 L 83 L 100 07/01/18 10:01 07/01/18 10:59 07/01/18 11:00 Temperature Pulse Rate 38 L 74 38 L Respiratory Rate 17 14 18 Blood Pressure 140/61 Pulse Oximetry 100 60 L 07/01/18 11:01 07/01/18 12:00 07/01/18 12:01 Temperature Pulse Rate 43 L 34 L 50 L Respiratory Rate 15 9 L 16 Blood Pressure 142/62 H 136/64 Pulse Oximetry 60 L 07/01/18 13:00 07/01/18 14:00 07/01/18 14:01 Temperature Pulse Rate 102 H 41 L 40 L Respiratory Rate 25 H 15 9 L Blood Pressure 155/87 H 157/65 H Pulse Oximetry 91 L 69 L 95 07/01/18 15:00 07/01/18 16:00 07/01/18 16:11 Temperature Pulse Rate 83 140 H 75 Respiratory Rate 15 35 H 23 Blood Pressure 160/97 H 227/105 H 163/71 H Pulse Oximetry 69 L 97 81 L 07/01/18 17:00 07/01/18 18:00 07/01/18 19:00 Temperature 98.2 F Pulse Rate 64 41 L 55 L Respiratory Rate 20 19 18 Blood Pressure 170/88 H 143/64 H 155/72 H Pulse Oximetry 100 100 100 07/01/18 20:00 07/01/18 20:55 07/01/18 20:58 Temperature 98.2 F Pulse Rate 55 L 90 Respiratory Rate 16 20 Blood Pressure 155/72 H Pulse Oximetry 100 97 07/01/18 21:00 07/01/18 22:00 07/01/18 23:00 Temperature 98.2 F 98.2 F 98.2 F Pulse Rate 49 L 48 L 60 Respiratory Rate 18 17 18 Blood Pressure 158/75 H 155/72 H 174/86 H Pulse Oximetry 100 100 100 07/02/18 00:00 07/02/18 01:00 07/02/18 02:00 Temperature 99 F 99 F 99 F Pulse Rate 54 L 55 L 48 L Respiratory Rate 16 18 18 Blood Pressure 175/78 H 150/74 H 134/60 Pulse Oximetry 100 100 100 07/02/18 03:00 07/02/18 03:37 07/02/18 04:00 Temperature 99 F 99 F Pulse Rate 65 95 H 52 L Respiratory Rate 18 20 18 Blood Pressure 153/97 H 154/78 H Pulse Oximetry 100 100 07/02/18 05:00 07/02/18 06:00 Temperature 99.4 F 99.4 F Pulse Rate 52 L 94 H Respiratory Rate 18 18 Blood Pressure 154/78 H 179/79 H Pulse Oximetry 100 100 Intake & Output 07/01/18 07/02/18 07/02/18 18:59 06:59 18:59 Intake Total 1200 / 1200 1000 / 1000 Output Total 450 / 450 500 / 500 Balance 750 / 750 500 / 500 Weight 65.5 kg Intake: IV 1200 / 1200 1000 / 1000 D5W/LR Inj 1,000 ML @ 100 mls/ 1000 / 1000 1000 / 1000 hr IV.CONT .Q10H [facility] Rx#: [id number] Zerbaxa Inj 1,500 MG In NS Inj 100 / 100 100 ML @ 100 mls/hr IV.SIG Q8H [facility] Rx#:[id number] Keppra 1000 mg/100 mL Premix 100 / 100 100 ML @ 400 mls/hr IV.SIG Q12H [facility] Rx#:[id number] Oral 0 / 0 Oral Supplement 0 / 0 Tube Feeding 0 / 0 Tube Irrigant 0 / 0 Water Bolus Amount 0 / 0 Output: Urine 450 / 450 500 / 500 Stool 0 / 0 Urine/Stool Mix 0 / 0 Other: Post Void Residual 0 # Voids 0 # Incontinent Voids 0 Date of Last Bowel Movement 07/01/18 07/01/18 # Bowel Movements 1 0 # Incontinent Bowel Movements 0 Narrative: GENERAL: NAD, A&Ox0 HEAD: Normocephalic. NECK: Supple, trachea midline. No lymphadenopathy. EYES: No scleral icterus. No injection or drainage. CARDIOVASCULAR: Regular rate and rhythm without murmurs, RESPIRATORY: Breath sounds equal bilaterally. No accessory muscle use. GASTROINTESTINAL: Abdomen soft, non-tender, nondistended. MUSCULOSKELETAL: No cyanosis, or edema. Global contractures. SKIN: Warm and dry. Neurology alerts, in bed no acute distress no involuntary movements no clear gaze deviation, nonverbal not following, head turn to the side as increased tone mild quadriparesis contractures brisk reflexes - Constitutional no acute distress - Routine HEENT Exam Head: Present: normocephalic Objective Laboratory Results - last 24 hr 06/29/18 07/01/18 07/02/18 19:00 06:23 00:57 WBC 3.8 L RBC 4.32 L Hgb 13.5 Hct 41.7 MCV 96.6 MCH 31.3 MCHC 32.4 RDW 13.3 Plt Count 127 L D MPV 10.8 Sodium Potassium Chloride Carbon Dioxide Anion Gap BUN Creatinine Estimated GFR POC Glucose 93 Random Glucose Calcium Phenytoin Levetiracetam 5.7 L 07/02/18 07/02/18 07/02/18 03:27 03:27 06:12 WBC 3.8 L RBC 4.09 L Hgb 12.9 L Hct 38.1 L MCV 93.2 MCH 31.5 MCHC 33.7 RDW 13.3 Plt Count 170 D MPV 11.0 Sodium 146 H Potassium 3.2 L D Chloride 109 H Carbon Dioxide 26.6 Anion Gap 10 BUN 4 L Creatinine 0.68 Estimated GFR Greater than 89 POC Glucose 103 Random Glucose 93 Calcium 8.7 Phenytoin 1.3 L Levetiracetam Microbiology 06/26/18 12:55 Aerobic Blood Culture - Final Blood - Peripheral No growth in 5 days Anaerobic Blood Culture - Final No growth in 5 days 06/26/18 13:20 Aerobic Blood Culture - Final Blood - Peripheral No growth in 5 days Anaerobic Blood Culture - Final No growth in 5 days Review/Management - Diagnosis (1) Anoxic encephalopathy Code(s): G93.1 - Anoxic brain damage, not elsewhere classified Status: Chronic Current Visit: No (2) Feeding tube dysfunction Code(s): T85.598A - Other mechanical complication of other gastrointestinal prosthetic devices, implants and grafts, initial encounter Status: Resolved Current Visit: No (3) HTN (hypertension) Code(s): I10 - Essential (primary) hypertension Status: Acute Current Visit : No (4) Seizure Code(s): R56.9 - Unspecified convulsions Status: Acute Current Visit: No - Review/Management Plan: On Keppra, Dilantin added Going for a G-tube revision We will change to IV Keppra, IV Celebrex EEG showing moderate encephalopathy no active seizures Discussed with APRIL
[2018-07-02] MEDS ORDERED: Fosphenytoin Inj 1,000 MGPE in Sodium Chlor 0.9% Inj 50 ML IV.SIG ONE (08:45)
[2018-07-02] MEDS ORDERED: Iohexol 350 MG/ML 50 ML Vial (for Rad Diag) G-TUBE ONE (10:08)
--- NOTE | 2018-07-02 10:53 | IR ---
EXAM DATE: 07/02/2018 10:26 AM EDT AGE/SEX: 33 years / Male INDICATIONS: Patient with history of Anoxic Brain injury presents with dislodged transgastric tube in need of new tube placement. CLINICAL DATA: This is the patient's subsequent encounter. Patient reports that signs and symptoms h ave been present for 1 day and indicates a pain score of Nonresponsive. MEDICAL/SURGICAL HISTORY: Gastroesophageal reflux disease. Tracheostomy dependent, Pancreatitis , DM, Dyslipdemia, HTN, Seizure, DVT, Anoxic Brain injury . PEG tube. COMPARISON: No prior exams available for comparison. FLUORO TIME (min): 2.53 IMAGE SERIES: 2 CONTRAST (cc): 10 Omnipaque (iohexol) 350 DEVICE(S): 22 [place] Transgastric tube . . PROCEDURE: 1. Fluoroscopically guided gastrojejunostomy tube placement. 2. Conscious sedation with continuous EKG and oximetry monitoring. The risks, benefits and alternatives to the procedure were explained and verbal and written consent w as obtained. The site was prepped in sterile fashion. Full sterile technique was used, including ca p, mask, sterile gloves and gown and a large sterile sheet. Hand hygiene and 2% chlorhexidine and/or betadine/alcohol prep was utilized per protocol for cutaneous antisepsis. The skin and subcutaneous tissues were infiltrated with local anesthetic solution. 1 mg of Glucagon was administered. The stomach was insufflated with room air using. Three percutaneo us fasteners were placed to secure the anterior gastric wall. A small incision was made between the fasteners. The stomach was accessed with an 18 gauge needle. A n 0.035 wire was advanced into the small bowel. The tract was dilated. The gastrojejunostomy tube w as introduced through a peel-away sheath. The position was confirmed with an injection of contrast in both the gastric and jejunal lumens. Conscious sedation was performed with the prescribed dosages and duration as above in the presence of an independent trained radiology nurse to assist in the monitoring of the patient. EKG and oximetry remained stable throughout the procedure. The patient tolerated the procedure well and there were n o complications. The patient was sent to post anesthesia recovery in stable condition. CONCLUSION: 1. Uncomplicated gastrojejunostomy tube placement as above. Electronically signed by: Benigno Pimentel MD 07/02/2018 10:51 AM EDT
[2018-07-02] MEDS: Phenytoin Sodium 100 MG Capsule PO SCH ×2 (11:33→13:29)
[2018-07-02] MEDS: Famotidine 20 MG Tablet PO SCH ×2 (11:33→21:12)
[2018-07-02] MEDS: Loratadine 10 MG Tablet G-TUBE SCH (11:33)
[2018-07-02] MEDS: Multivitamins/Iron Drops (Fe=10 MG/ML) 50 ML Bottle G-TUBE SCH (11:35)
[2018-07-02] MEDS: Senna/Docusate Sodium 8.6/50 MG Tablet PO SCH ×2 (11:35→21:12)
[2018-07-02] MEDS: Potassium Chlor 20 mEq Premix 20 MEQ/100 ML PIGGYBACK IV.SIG PRN ×4 (11:36→19:37)
--- NOTE | 2018-07-02 11:39 | P.PNID ---
Subjective Remarks: Patient is a 33-year-old male, who has anoxic brain damage, chronically has a trach in place, resides in the detention, brought into the hospital for evaluation of fever. And had any other accompanying signs and symptoms on this patient. Patient has had 2 hospitalization recently. One was May 22 - June 03, and at that time he was treated for pneumonia. His sputum culture grew a resistant Pseudomonas, and Providencia. On June 09, he was in the special procedure getting work done on his PEG tube when he developed hypotension and diaphoresis. He was readmitted to the hospital June 09, until June 24. At that time he was treated for Pseudomonas and E. coli ESBL positive sputum culture. He was just discharged June 24, and he was brought back in for evaluation of the fever. In the ED he was tachycardic, febrile up to 103, and had an elevated lactic acid. Patient is being admitted for evaluation and treatment of sepsis. His chest x-ray showing underinflated lungs with no acute infiltrate. His WBC is normal. Patient has no indwelling Nolasco catheter. His BP is okay. Infectious disease consultation has been requested to assist in evaluation and treatment of his sepsis. Notes reviewed Temps low grade. Had feeding tube replaced 06/30, got dislodged again yesterday Replaced today Copious oral secretions BP ok WBC down to 3.8 UA ok BC negative Sputum C/S E coli ESBL+ and PSAE CXR with vascular congestion Antibiotics: Zerbaxa Colistin nebs Lines: PIV Past Medical History: Tracheostomy dependent (Acute) GERD (gastroesophageal reflux disease) (Acute) Pancreatitis (Acute) Diabetes mellitus (Acute) Dyslipidemia (Acute) HTN (hypertension) (Acute) Seizure (Acute) DVT (deep venous thrombosis) (Acute) Anoxic brain damage (Acute) PEG (percutaneous endoscopic gastrostomy) status (Acute) Allergies/Adverse Reactions: Allergies haloperidol Adverse Reaction (Severe, Verified 06/09/18 09:58) Seizures *MDRO Multi-Drug Resistant Organism Adverse Reaction (Unknown, Uncoded 06/09/18 09:58) Dry Mucus Membranes MRSA (sputum) - 04/25/16 & 05/23/16 MRSA PCR Screen POSITIVE - 04/25/2016 ESBL+E.Coli (blood-05/22/16) Objective Vital Signs 07/01/18 12:00 07/01/18 12:01 07/01/18 13:00 Temperature Pulse Rate 34 L 50 L 102 H Respiratory Rate 9 L 16 25 H Blood Pressure 136/64 155/87 H Pulse Oximetry 91 L 07/01/18 14:00 07/01/18 14:01 07/01/18 15:00 Temperature Pulse Rate 41 L 40 L 83 Respiratory Rate 15 9 L 15 Blood Pressure 157/65 H 160/97 H Pulse Oximetry 69 L 95 69 L 07/01/18 16:00 07/01/18 16:11 07/01/18 17:00 Temperature Pulse Rate 140 H 75 64 Respiratory Rate 35 H 23 20 Blood Pressure 227/105 H 163/71 H 170/88 H Pulse Oximetry 97 81 L 100 07/01/18 18:00 07/01/18 19:00 07/01/18 20:00 Temperature 98.2 F 98.2 F Pulse Rate 41 L 55 L 55 L Respiratory Rate 19 18 16 Blood Pressure 143/64 H 155/72 H 155/72 H Pulse Oximetry 100 100 100 07/01/18 20:55 07/01/18 20:58 07/01/18 21:00 Temperature 98.2 F Pulse Rate 90 49 L Respiratory Rate 20 18 Blood Pressure 158/75 H Pulse Oximetry 97 100 07/01/18 22:00 07/01/18 23:00 07/02/18 00:00 Temperature 98.2 F 98.2 F 99 F Pulse Rate 48 L 60 54 L Respiratory Rate 17 18 16 Blood Pressure 155/72 H 174/86 H 175/78 H Pulse Oximetry 100 100 100 07/02/18 01:00 07/02/18 02:00 07/02/18 03:00 Temperature 99 F 99 F 99 F Pulse Rate 55 L 48 L 65 Respiratory Rate 18 18 18 Blood Pressure 150/74 H 134/60 153/97 H Pulse Oximetry 100 100 100 07/02/18 03:37 07/02/18 04:00 07/02/18 05:00 Temperature 99 F 99.4 F Pulse Rate 95 H 52 L 52 L Respiratory Rate 20 18 18 Blood Pressure 154/78 H 154/78 H Pulse Oximetry 100 100 07/02/18 06:00 07/02/18 07:00 07/02/18 07:02 Temperature 99.4 F Pulse Rate 94 H 63 90 Respiratory Rate 18 30 H 28 H Blood Pressure 179/79 H 181/84 H 175/75 H Pulse Oximetry 100 100 100 07/02/18 08:00 07/02/18 08:59 07/02/18 10:00 Temperature 98 F Pulse Rate 68 60 Respiratory Rate 32 H Blood Pressure 161/94 H Pulse Oximetry 100 100 07/02/18 10:24 07/02/18 10:27 Temperature Pulse Rate 124 H Respiratory Rate 34 H 25 H Blood Pressure 181/108 H Pulse Oximetry 99 Intake & Output 07/01/18 07/02/18 07/02/18 18:59 06:59 18:59 Intake Total 1200 / 1200 1000 / 1000 Output Total 450 / 450 500 / 500 Balance 750 / 750 500 / 500 Weight 65.5 kg Intake: IV 1200 / 1200 1000 / 1000 D5W/LR Inj 1,000 ML @ 100 mls/ 1000 / 1000 1000 / 1000 hr IV.CONT .Q10H [facility] Rx#: [id number] Zerbaxa Inj 1,500 MG In NS Inj 100 / 100 100 ML @ 100 mls/hr IV.SIG Q8H [facility] Rx#:[id number] Keppra 1000 mg/100 mL Premix 100 / 100 100 ML @ 400 mls/hr IV.SIG Q12H [facility] Rx#:[id number] Oral 0 / 0 Oral Supplement 0 / 0 Tube Feeding 0 / 0 Tube Irrigant 0 / 0 Water Bolus Amount 0 / 0 Output: Urine 450 / 450 500 / 500 Stool 0 / 0 Urine/Stool Mix 0 / 0 Other: Post Void Residual 0 # Voids 0 # Incontinent Voids 0 Date of Last Bowel Movement 07/01/18 07/01/18 07/01/18 # Bowel Movements 1 0 # Incontinent Bowel Movements 0 06/26/18 12:55 Blood - Peripheral Aerobic Blood Culture - Final No growth in 5 days 06/26/18 12:55 Blood - Peripheral Anaerobic Blood Culture - Final No growth in 5 days 06/26/18 13:20 Blood - Peripheral Aerobic Blood Culture - Final No growth in 5 days 06/26/18 13:20 Blood - Peripheral Anaerobic Blood Culture - Final No growth in 5 days 06/26/18 16:00 Sputum - Tracheal Aspirate Gram Stain - Final 06/26/18 16:00 Sputum - Tracheal Aspirate Sputum Culture - Final Escherichia coli ESBL positive Pseudomonas aeruginosa Lab - Hematology Results 06/30/18 07/01/18 07/02/18 15:42 06:23 03:27 WBC 4.3 3.8 L 3.8 L RBC 4.05 L 4.32 L 4.09 L Hgb 12.8 L 13.5 12.9 L Hct 37.8 L 41.7 38.1 L MCV 93.4 96.6 93.2 MCH 31.5 31.3 31.5 MCHC 33.7 32.4 33.7 RDW 13.2 13.3 13.3 Plt Count 188 127 L D 170 D MPV 10.7 10.8 11.0 Lab - Chemistry Results 06/30/18 07/01/18 07/01/18 15:42 01:04 04:26 Sodium 145 143 Potassium 3.4 L 4.6 D Chloride 110 H 111 H Carbon Dioxide 24.8 20.3 L Anion Gap 10 12 BUN 3 L 4 L Creatinine 0.68 0.83 Estimated GFR Greater than 89 Greater than 89 POC Glucose 77 Random Glucose 91 71 L Calcium 8.7 8.5 07/02/18 07/02/18 07/02/18 00:57 03:27 06:12 Sodium 146 H Potassium 3.2 L D Chloride 109 H Carbon Dioxide 26.6 Anion Gap 10 BUN 4 L Creatinine 0.68 Estimated GFR Greater than 89 POC Glucose 93 103 Random Glucose 93 Calcium 8.7 Imaging: ITS Impressions Chest X-Ray 06/28/18 00:00 CONCLUSION: 1. Moderate pulmonary vascular congestion. 2. Cardiomegaly. Tube Change 06/30/18 00:00 CONCLUSION: 1. Uncomplicated gastrojejunostomy tube exchange as above. Gastrostomy Tube Placement 07/02/18 00:00 CONCLUSION: 1. Uncomplicated gastrojejunostomy tube placement as above. Physical Exam: GENERAL: awake, but no interaction, has posturing, drooling clear secretions from his mouth. Has trach in place, not in respiratory distress. SKIN: Warm and moist. No generalized rash, no ecchymoses and no evidence of embolic lesions. HEAD: Atraumatic. Normocephalic. No temporal wasting, or tenderness. EYES: [place] conjunctiva. No petechia or hemorrhage. Pupils equal, round and reactive to light. No scleral icterus. No injection or drainage. EARS, NOSE AND THROAT: Nose without bleeding or purulent nasal discharge. Mucous membranes moist. A lot of oral secretions, drooling. . NECK: Tracheostomy site ok, has drainage in the trach dressing, looks light yellow. CARDIOVASCULAR: Regular rate and rhythm, tachycardic. No murmurs, rubs or gallops heard RESPIRATORY: No rales, wheezing or rhonchi. Decreased at bases ABDOMEN: Soft, non-tender, nondistended. Bowel sounds present and normoactive. No guarding. No rebound. No organomegaly. EXTREMITIES: No clubbing, cyanosis, or edema. Both feet plantar flexed. IV sites on both feet NEUROLOGICAL: Awake, no interaction. Posturing. UE and LE spastic. : Has condom cath in place, urine looks clear PSYCHIATRIC: Unable to assess. 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
[2018-07-02] MEDS: Morphine Sulfate Inj 2 MG/ML Vial IV.PUSH PRN ×2 (12:30→22:30)
[2018-07-02] MEDS: Potassium Chlor 20 mEq Premix 20 MEQ/100 ML PIGGYBACK IV.SIG SCH (14:00)
--- NOTE | 2018-07-02 17:13 | P.PNIM ---
Subjective Interval history: Patient is nonverbal. GJ tube replaced this morning. Patient tolerated the procedure well. He is comfortable when seen. Physical Exam Vital signs: Vital Signs 07/01/18 18:00 07/01/18 19:00 07/01/18 20:00 Temperature 98.2 F 98.2 F Pulse Rate 41 L 55 L 55 L Respiratory Rate 19 18 16 Blood Pressure 143/64 H 155/72 H 155/72 H Pulse Oximetry 100 100 100 07/01/18 20:55 07/01/18 20:58 07/01/18 21:00 Temperature 98.2 F Pulse Rate 90 49 L Respiratory Rate 20 18 Blood Pressure 158/75 H Pulse Oximetry 97 100 07/01/18 22:00 07/01/18 23:00 07/02/18 00:00 Temperature 98.2 F 98.2 F 99 F Pulse Rate 48 L 60 54 L Respiratory Rate 17 18 16 Blood Pressure 155/72 H 174/86 H 175/78 H Pulse Oximetry 100 100 100 07/02/18 01:00 07/02/18 02:00 07/02/18 03:00 Temperature 99 F 99 F 99 F Pulse Rate 55 L 48 L 65 Respiratory Rate 18 18 18 Blood Pressure 150/74 H 134/60 153/97 H Pulse Oximetry 100 100 100 07/02/18 03:37 07/02/18 04:00 07/02/18 05:00 Temperature 99 F 99.4 F Pulse Rate 95 H 52 L 52 L Respiratory Rate 20 18 18 Blood Pressure 154/78 H 154/78 H Pulse Oximetry 100 100 07/02/18 06:00 07/02/18 07:00 07/02/18 07:02 Temperature 99.4 F Pulse Rate 94 H 63 90 Respiratory Rate 18 30 H 28 H Blood Pressure 179/79 H 181/84 H 175/75 H Pulse Oximetry 100 100 100 07/02/18 08:00 07/02/18 08:59 07/02/18 10:00 Temperature 98 F Pulse Rate 68 60 Respiratory Rate 32 H Blood Pressure 161/94 H Pulse Oximetry 100 100 07/02/18 10:24 07/02/18 10:27 07/02/18 11:00 Temperature Pulse Rate 124 H 64 Respiratory Rate 34 H 25 H 0 L Blood Pressure 181/108 H 144/63 H Pulse Oximetry 99 99 07/02/18 11:59 07/02/18 12:00 07/02/18 12:12 Temperature 99 F Pulse Rate 125 H 144 H 90 Respiratory Rate 28 H 44 H 29 H Blood Pressure 199/95 H 169/68 H Pulse Oximetry 94 L 100 07/02/18 13:00 07/02/18 14:00 07/02/18 15:00 Temperature Pulse Rate 82 57 L 64 Respiratory Rate 15 10 L 12 Blood Pressure 145/65 H 137/63 148/71 H Pulse Oximetry Intake & Output 07/01/18 07/02/18 07/02/18 18:59 06:59 18:59 Intake Total 1200 / 1200 1000 / 1000 1470 / 1470 Output Total 450 / 450 500 / 500 Balance 750 / 750 500 / 500 1470 / 1470 Weight 65.5 kg Intake: IV 1200 / 1200 1000 / 1000 1470 / 1470 D5W/LR Inj 1,000 ML @ 100 mls/ 1000 / 1000 1000 / 1000 1000 / 1000 hr IV.CONT .Q10H [facility] Rx#: [id number] Zerbaxa Inj 1,500 MG In NS Inj 100 / 100 200 / 200 100 ML @ 100 mls/hr IV.SIG Q8H [facility] Rx#:[id number] Cerebyx Inj 1,000 MGPE In NS 70 / 70 Inj 50 ML @ 280 mls/hr IV.SIG ONCE ONE Rx#:[id number] KCl 20 mEq Premix Inj 20 meq In 100 / 100 100 ml @ 50 mls/hr IV.SIG Q2H [facility] Rx#:[id number] Keppra 1000 mg/100 mL Premix 100 / 100 100 / 100 100 ML @ 400 mls/hr IV.SIG Q12H [facility] Rx#:[id number] Oral 0 / 0 Oral Supplement 0 / 0 Tube Feeding 0 / 0 Tube Irrigant 0 / 0 Water Bolus Amount 0 / 0 Output: Urine 450 / 450 500 / 500 Stool 0 / 0 Urine/Stool Mix 0 / 0 Other: Post Void Residual 0 # Voids 0 # Incontinent Voids 0 Date of Last Bowel Movement 07/01/18 07/01/18 07/01/18 # Bowel Movements 1 0 # Incontinent Bowel Movements 0 Narrative: GENERAL: NAD, A&Ox0, nonverbal HEAD: Normocephalic. NECK: Supple, trachea midline. No lymphadenopathy. Tracheostomy present. EYES: No scleral icterus. No injection or drainage. CARDIOVASCULAR: Regular rate and rhythm without murmurs, gallops, or rubs. RESPIRATORY: Breath sounds equal bilaterally. No accessory muscle use. GASTROINTESTINAL: Abdomen soft, non-tender, nondistended. No erythema at tube feed site. MUSCULOSKELETAL: No cyanosis, or edema. SKIN: Warm and dry. NEURO: Global neurological deficits. Results - Labs CBC & Chem 7: 07/02/18 03:27 07/02/18 03:27 Laboratory Results - last 24 hr 07/02/18 07/02/18 07/02/18 00:57 03:27 03:27 WBC 3.8 L RBC 4.09 L Hgb 12.9 L Hct 38.1 L MCV 93.2 MCH 31.5 MCHC 33.7 RDW 13.3 Plt Count 170 D MPV 11.0 Sodium 146 H Potassium 3.2 L D Chloride 109 H Carbon Dioxide 26.6 Anion Gap 10 BUN 4 L Creatinine 0.68 Estimated GFR Greater than 89 POC Glucose 93 Random Glucose 93 Calcium 8.7 Phenytoin 1.3 L 07/02/18 07/02/18 06:12 16:02 WBC RBC Hgb Hct MCV MCH MCHC RDW Plt Count MPV Sodium Potassium Chloride Carbon Dioxide Anion Gap BUN Creatinine Estimated GFR POC Glucose 103 102 Random Glucose Calcium Phenytoin - Imaging Impressions Gastrostomy Tube Placement 07/02/18 00:00 CONCLUSION: 1. Uncomplicated gastrojejunostomy tube placement as above. Assessment and Plan - Assessment (1) Sepsis Code(s): A41.9 - Sepsis, unspecified organism Status: Acute (2) Anoxic encephalopathy Code(s): G93.1 - Anoxic brain damage, not elsewhere classified Status: Chronic (3) Seizure Code(s): R56.9 - Unspecified convulsions Status: Acute (4) Anoxic brain damage Code(s): G93.1 - Anoxic brain damage, not elsewhere classified Status: Acute - Plan 33-year-old male with chronic global neurologic debility admitted secondary to sepsis Doing well status post GJ tube placement. Plan to resume feeds, monitor. Resume prior PEG tube therapies. Sepsis Improving Continue Zerbaxa to cover MDRO GNR Follow blood cultures G/J-tube dysfunction Replacement with IR pending Seizure-like activity: Continue as needed Ativan Keppra is changed to IV for now Monitor for seizure recurrence Continue Dilantin Neurology following Chronic encephalopathic: Continue tracheostomy Continue tube feeds Hypertension: As needed clonidine Continue baseline treatments Follow blood pressures DVT prophylaxis: Continue SCDs Continue Eliquis Discharge Planning: Ultimately patient will discharge back to detention facility New G/J-tube needed prior to discharge (1) Sepsis Qualifiers: Sepsis type: sepsis due to unspecified organism Qualified Code(s): A41.9 - Sepsis, unspecified organism
[2018-07-02] MEDS ORDERED: Fosphenytoin Inj 200 MGPE in Sodium Chlor 0.9% Inj 50 ML IV.SIG SCH (21:00)
[2018-07-02] MEDS: Phenytoin Susp 100 MG/4 ML UDC NG/OG SCH (21:12)
[2018-07-03] MEDS: levETIRAcetam 1000mg/100mL Inj 100 ML IV.SIG SCH ×3 (00:47→12:23)
[2018-07-03] MEDS: SODIUM CHLOR 0.9% IV.SIG SCH ×3 (00:48→08:20)
[2018-07-03] MEDS: CEFTOLOZANE IV.SIG SCH ×3 (00:48→08:20)
[2018-07-03] MEDS: TAZOBACTAM IV.SIG SCH ×3 (00:48→08:20)
[2018-07-03 04:34] LABS: Anion Gap 10 meq/L (5-15); Blood Urea Nitrogen 3 mg/dL (7-18); Calcium 8.6 mg/dL (8.5-10.1); Chloride 109 meq/L (98-107); Glomerular Filtration Rate Greater Than 89 mL/min (>89); Glucose,Random 80 mg/dL (74-106); Sodium 143 meq/L (136-145)
[2018-07-03 04:35] LABS: Phenytoin (Dilantin) 20.5 mcg/mL (10.0-20.0); Potassium 4.6 meq/L (3.5-5.1)
[2018-07-03 05:50] LABS: Hematocrit 37.6 % (39.0-51.0); Hemoglobin 12.6 gm/dL (13.0-17.0); Mean Corpuscular HGB Conc 33.6 % (32.0-36.0); Mean Corpuscular Hemoglobin 31.2 pg (27.0-34.0); Mean Corpuscular Volume 92.7 fL (80.0-100.0); Mean Platelet Volume 10.8 fL (7.0-11.0); Platelet Count 160 th/mm3 (150-450); Red Blood Count 4.06 mil/mm3 (4.50-5.90); Red Cell Distribution Width 13.7 % (11.6-17.2); White Blood Count 3.5 th/mm3 (4.0-11.0)
[2018-07-03] MEDS: Phenytoin Susp 100 MG/4 ML UDC NG/OG SCH ×3 (08:19→17:04)
[2018-07-03] MEDS: Multivitamins/Iron Drops (Fe=10 MG/ML) 50 ML Bottle G-TUBE SCH (08:20)
[2018-07-03] MEDS: Senna/Docusate Sodium 8.6/50 MG Tablet PO SCH ×2 (08:20→21:00)
[2018-07-03] MEDS: Loratadine 10 MG Tablet G-TUBE SCH (08:20)
[2018-07-03] MEDS: Famotidine 20 MG Tablet PO SCH ×2 (08:20→21:00)
[2018-07-03] MEDS: Dextrose 5%/Lactated Ringer's 1,000 ML IV.CONT SCH ×3 (08:21→21:00)
--- NOTE | 2018-07-03 09:59 | P.PNIM ---
Subjective Interval history: Patient is nonverbal. Tolerating feeds thus far. Rate is up to 40 and goal is at 60 mL/h. Hypoglycemic episode overnight. Other than this no other acute changes. Physical Exam Vital signs: Vital Signs 07/02/18 10:00 07/02/18 10:24 07/02/18 10:27 Temperature Pulse Rate 60 124 H Respiratory Rate 34 H 25 H Blood Pressure 181/108 H Pulse Oximetry 99 07/02/18 11:00 07/02/18 11:59 07/02/18 12:00 Temperature 99 F Pulse Rate 64 125 H 144 H Respiratory Rate 0 L 28 H 44 H Blood Pressure 144/63 H 199/95 H Pulse Oximetry 99 94 L 07/02/18 12:12 07/02/18 13:00 07/02/18 14:00 Temperature Pulse Rate 90 82 67 Respiratory Rate 29 H 15 10 L Blood Pressure 169/68 H 145/65 H 137/63 Pulse Oximetry 100 07/02/18 15:00 07/02/18 16:00 07/02/18 17:00 Temperature 99.5 F Pulse Rate 64 73 65 Respiratory Rate 12 15 13 Blood Pressure 148/71 H 153/83 H 152/99 H Pulse Oximetry 99 98 96 07/02/18 18:00 07/02/18 18:01 07/02/18 18:14 Temperature Pulse Rate 52 L 66 Respiratory Rate 16 10 L Blood Pressure 125/61 125/61 Pulse Oximetry 98 98 96 07/02/18 19:00 07/02/18 19:01 07/02/18 20:00 Temperature 99.2 F Pulse Rate 57 L 56 L 74 Respiratory Rate 2 L 8 L 18 Blood Pressure 154/76 H 154/76 H 166/99 H Pulse Oximetry 99 99 100 07/02/18 20:56 07/02/18 21:00 07/02/18 21:08 Temperature Pulse Rate 88 69 79 Respiratory Rate 18 15 16 Blood Pressure 166/99 H Pulse Oximetry 100 100 07/02/18 21:17 07/02/18 22:00 07/02/18 23:00 Temperature Pulse Rate 81 84 96 H Respiratory Rate 18 18 28 H Blood Pressure 158/99 H 120/56 L Pulse Oximetry 100 07/02/18 23:57 07/03/18 00:00 07/03/18 00:01 Temperature 98.4 F Pulse Rate 56 L 52 L Respiratory Rate 14 17 Blood Pressure 114/56 L 114/56 L Pulse Oximetry 100 100 100 07/03/18 01:00 07/03/18 02:00 07/03/18 02:01 Temperature Pulse Rate 45 L 46 L 44 L Respiratory Rate 7 L 6 L 4 L Blood Pressure 109/51 L 106/51 L Pulse Oximetry 100 99 100 07/03/18 03:00 07/03/18 03:01 07/03/18 04:00 Temperature 98.8 F Pulse Rate 45 L 43 L 56 L Respiratory Rate 0 L 0 L 32 H Blood Pressure 99/47 L 103/71 Pulse Oximetry 100 100 100 07/03/18 04:03 07/03/18 05:00 07/03/18 06:00 Temperature Pulse Rate 39 L 42 L Respiratory Rate 6 L 14 Blood Pressure 101/51 L 94/46 L Pulse Oximetry 100 100 07/03/18 07:00 07/03/18 07:03 07/03/18 08:00 Temperature 97.3 F L Pulse Rate 39 L 54 L 45 L Respiratory Rate 21 18 10 L Blood Pressure 60/36 L 101/49 L 106/46 L Pulse Oximetry 100 100 100 07/03/18 08:15 Temperature Pulse Rate Respiratory Rate Blood Pressure Pulse Oximetry 99 Intake & Output 07/02/18 07/03/18 07/03/18 18:59 06:59 18:59 Intake Total 1770 / 1770 1477 / 1477 200 / 200 Output Total 450 / 450 675 / 675 Balance 1320 / 1320 802 / 802 200 / 200 Weight 65.5 kg Intake: IV 1770 / 1770 1200 / 1200 200 / 200 D5W/LR Inj 1,000 ML @ 100 mls/ 1000 / 1000 1000 / 1000 200 / 200 hr IV.CONT .Q10H [facility] Rx#: [id number] Zerbaxa Inj 1,500 MG In NS Inj 300 / 300 100 ML @ 100 mls/hr IV.SIG Q8H [facility] Rx#:[id number] Cerebyx Inj 1,000 MGPE In NS 70 / 70 Inj 50 ML @ 280 mls/hr IV.SIG ONCE ONE Rx#:[id number] KCl 20 mEq Premix Inj 20 meq In 200 / 200 200 / 200 100 ml @ 50 mls/hr IV.SIG Q2H [facility] Rx#:[id number] Keppra 1000 mg/100 mL Premix 200 / 200 100 ML @ 400 mls/hr IV.SIG Q12H [facility] Rx#:[id number] Tube Feeding 0 / 0 277 / 277 Output: Urine 450 / 450 675 / 675 Other: Date of Last Bowel Movement 07/01/18 07/01/18 07/01/18 # Bowel Movements 0 Narrative: GENERAL: NAD, A&Ox0, nonverbal HEAD: Normocephalic. NECK: Supple, trachea midline. No lymphadenopathy. Tracheostomy present. EYES: No scleral icterus. No injection or drainage. CARDIOVASCULAR: Regular rate and rhythm without murmurs, gallops, or rubs. RESPIRATORY: Breath sounds equal bilaterally. No accessory muscle use. GASTROINTESTINAL: Abdomen soft, non-tender, nondistended. No erythema at tube feed site. MUSCULOSKELETAL: No cyanosis, or edema. SKIN: Warm and dry. NEURO: Global neurological deficits. Results - Labs CBC & Chem 7: 07/03/18 05:30 07/03/18 03:44 Laboratory Results - last 24 hr 07/02/18 07/03/18 07/03/18 16:02 00:14 03:44 WBC RBC Hgb Hct MCV MCH MCHC RDW Plt Count MPV Sodium 143 Potassium 4.6 D Chloride 109 H Carbon Dioxide 24.0 Anion Gap 10 BUN 3 L Creatinine 0.73 Estimated GFR Greater than 89 POC Glucose 102 91 Random Glucose 80 Calcium 8.6 Phenytoin 20.5 H 07/03/18 07/03/18 07/03/18 05:30 05:44 06:39 WBC 3.5 L RBC 4.06 L Hgb 12.6 L Hct 37.6 L MCV 92.7 MCH 31.2 MCHC 33.6 RDW 13.7 Plt Count 160 MPV 10.8 Sodium Potassium Chloride Carbon Dioxide Anion Gap BUN Creatinine Estimated GFR POC Glucose 65 L 88 Random Glucose Calcium Phenytoin - Imaging Impressions Gastrostomy Tube Placement 07/02/18 00:00 CONCLUSION: 1. Uncomplicated gastrojejunostomy tube placement as above. Assessment and Plan - Assessment (1) Sepsis Code(s): A41.9 - Sepsis, unspecified organism Status: Acute (2) Anoxic encephalopathy Code(s): G93.1 - Anoxic brain damage, not elsewhere classified Status: Chronic (3) Seizure Code(s): R56.9 - Unspecified convulsions Status: Acute (4) Anoxic brain damage Code(s): G93.1 - Anoxic brain damage, not elsewhere classified Status: Acute - Plan 33-year-old male with chronic global neurologic debility admitted secondary to sepsis Course of antibiotics should be completing today. Advance diet as tolerated to goal of 60 mL/h. Monitor blood sugars. Improved tube feeding rate is likely to minimize risk of hypoglycemia again. Sepsis Improving Continue Zerbaxa to cover MDRO GNR Follow blood cultures G/J-tube dysfunction Replacement with IR pending Seizure-like activity: Continue as needed Ativan Keppra is changed to IV for now Monitor for seizure recurrence Continue Dilantin Neurology following Chronic encephalopathic: Continue tracheostomy Continue tube feeds Hypertension: As needed clonidine Continue baseline treatments Follow blood pressures DVT prophylaxis: Continue SCDs Continue Eliquis Discharge Planning: Ultimately patient will discharge back to group home facility New G/J-tube needed prior to discharge (1) Sepsis Qualifiers: Sepsis type: sepsis due to unspecified organism Qualified Code(s): A41.9 - Sepsis, unspecified organism
[2018-07-04] MEDS: levETIRAcetam 1000mg/100mL Inj 100 ML IV.SIG SCH ×2 (01:04→15:14)
[2018-07-04] MEDS: Dextrose 5%/Lactated Ringer's 1,000 ML IV.CONT SCH ×2 (04:32→15:15)
[2018-07-04] MEDS: Phenytoin Susp 100 MG/4 ML UDC NG/OG SCH ×3 (09:24→18:14)
[2018-07-04] MEDS: Famotidine 20 MG Tablet PO SCH ×2 (09:25→21:03)
[2018-07-04] MEDS: Senna/Docusate Sodium 8.6/50 MG Tablet PO SCH ×2 (09:25→21:03)
[2018-07-04] MEDS: Loratadine 10 MG Tablet G-TUBE SCH (09:25)
--- NOTE | 2018-07-04 11:28 | P.DS ---
Date of admission: 06/26/18 14:36 Primary care physician: UNKNOWN Brief History from admission: This is a 33-year-old male wanted to the critical care medicine service who has a history of severe neurologic deficit and 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 He was recently discharged from the hospital on 06/24. He was in his group home facility when he worsening tachycardia and fever. Per report they gave him Ativan which is typically what improves his symptoms. This did not improve improve his symptoms and so he was taken to the emergency department. He was given morphine IV which additionally improves his symptoms, and after he received the morphine IV his symptoms resolved. In the emergency department he had a lactate of 9 and a white count of 9.3. He was febrile to 39.7. His lactate cleared after 2 hours to 2.6. ABG is without significant acidosis. Patient is at his neurologic baseline, as I have seen him multiple times in previous admissions. Review of systems is completely unobtainable. DS: Diagnosis - Discharge Diagnosis (1) Sepsis Status: Acute (2) Anoxic encephalopathy Status: Chronic (3) Seizure Status: Acute (4) Anoxic brain damage Status: Acute DS: Medications - Discharge Medications Prescriptions: colistin (colistimethate Na) [Coly-Mycin M Parenteral] 150 mg INH BID [facility] #8 ea DS: Summary Hospital Course: Mr. Barroso is a 33-year-old male. At baseline he has profound neurologic deficit. She is on tube feeding tracheostomy chronically. He is nonverbal. He came in secondary to lactic acidosis and sepsis. Other complications included feeding tube obstruction. Patient was having seizure-like activity which could have been related to sepsis but also he was missing his antibiotic treatment secondary to obstructive tube feed. While hospitalized here he was treated with antibiotics and has completed his course of antibiotics. Tube feed has been replaced and is currently functional. Patient has stabilized back to baseline. He will continue on colistin as a treatment until 07/07/2015. Medically he has stabilized and has completed his antibiotic treatment so he is facility today. - Time Spent with Patient Total time spent providing and/or coordinating discharge services: Greater than 30 minutes - Quality: VTE Deep Vein Thrombosis/Pulmonary Embolism Present on Admission: No Exam Vital signs: Vital Signs 07/03/18 12:00 07/03/18 13:00 07/03/18 14:00 Temperature Pulse Rate 42 L 44 L 62 Respiratory Rate 8 L 5 L 14 Blood Pressure 110/53 L 122/57 L Pulse Oximetry 98 100 99 07/03/18 14:01 07/03/18 15:00 07/03/18 16:00 Temperature Pulse Rate 52 L 51 L 72 Respiratory Rate 14 0 L 14 Blood Pressure 139/63 108/51 L Pulse Oximetry 99 99 99 07/03/18 16:01 07/03/18 17:00 07/03/18 17:01 Temperature Pulse Rate 56 L 48 L 49 L Respiratory Rate 8 L 1 L 6 L Blood Pressure 144/65 H 113/56 L Pulse Oximetry 99 98 98 07/03/18 18:00 07/03/18 19:00 07/03/18 20:00 Temperature 98.4 F Pulse Rate 61 67 58 L Respiratory Rate 7 L 15 16 Blood Pressure 121/58 L 139/67 Pulse Oximetry 98 99 98 07/03/18 20:04 07/03/18 20:44 07/03/18 21:00 Temperature Pulse Rate 60 102 H 67 Respiratory Rate 16 20 14 Blood Pressure 177/80 H Pulse Oximetry 98 100 07/03/18 21:01 07/03/18 22:00 07/04/18 00:00 Temperature 97.8 F Pulse Rate 60 69 60 Respiratory Rate 12 17 20 Blood Pressure 115/57 L 130/65 144/71 H Pulse Oximetry 100 100 07/04/18 04:00 07/04/18 04:27 07/04/18 04:36 Temperature 97.7 F Pulse Rate 58 L 57 L Respiratory Rate 16 16 20 Blood Pressure 116/58 L Pulse Oximetry 100 07/04/18 08:00 Temperature 98.4 F Pulse Rate 63 Respiratory Rate 20 Blood Pressure 112/58 L Pulse Oximetry 100 Intake & Output 07/03/18 07/04/18 07/04/18 18:59 06:59 18:59 Intake Total 1987 1100 / 1100 Output Total 250 / 250 800 / 800 Balance 1738 / 1738 300 / 300 Weight 68.9 kg Intake: IV 1200 / 1200 1100 / 1100 D5W/LR Inj 1,000 ML @ 100 mls/ 1000 / 1000 1000 / 1000 hr IV.CONT .Q10H [facility] Rx#: [id number] Zerbaxa Inj 1,500 MG In NS Inj 100 / 100 100 ML @ 100 mls/hr IV.SIG Q8H [facility] Rx#:[id number] Keppra 1000 mg/100 mL Premix 100 / 100 100 / 100 100 ML @ 400 mls/hr IV.SIG Q12H [facility] Rx#:[id number] Tube Feeding 668 / 668 Tube Irrigant 120 / 120 Output: Urine 250 / 250 800 / 800 Other: Date of Last Bowel Movement 07/01/18 07/01/18 Results Procedures completed during hospitalization: none Labs on day of discharge: Labs from last 24 hours 07/04/18 07/04/18 07/03/18 05:23 02:34 17:04 POC Glucose 106 108 83 07/03/18 13:47 POC Glucose 67 L - Impressions ITS Impressions Chest X-Ray 06/28/18 00:00 CONCLUSION: 1. Moderate pulmonary vascular congestion. 2. Cardiomegaly. Tube Change 06/30/18 00:00 CONCLUSION: 1. Uncomplicated gastrojejunostomy tube exchange as above. Gastrostomy Tube Placement 07/02/18 00:00 CONCLUSION: 1. Uncomplicated gastrojejunostomy tube placement as above. Discharge Plan - Discharge Disposition Patient Disposition: Discharge to SNF - Discharge Condition Condition: Stable - Discharge Order Discharge Orders: Discharge Order (Routine); Ordered 07/04/18 Ordered By: Quinn Lyon - Discharge Details Anticipated Discharge Date: 07/04/18 - Physicians Team Primary Care Provider: UNKNOWN, Attending Provider: Quinn Lyon Other Providers: Pina Cagle MD ; Fred Haider MD ; [facility],Agency ; Duran Rosario MD ; [facility]
--- NOTE | 2018-07-04 12:44 | XR ---
EXAM DATE: 07/04/2018 12:40 PM EDT AGE/SEX: 33 years / Male INDICATIONS: Cough and shortness of breath. CLINICAL DATA: This is the patient's initial encounter. Patient reports that signs and symptoms have been present for 3 days and indicates a pain score of Nonresponsive. MEDICAL/SURGICAL HISTORY: Non-responsive. Non-responsive. [place] [facility] [place]. . FINDINGS: Findings suggest mild streaky airspace disease in the left lower lobe. Tracheostomy tube is present. Right lung is clear. Cardiomegaly. CONCLUSION: Mild left basilar airspace disease suspected. Electronically signed by: Gary Ross MD 07/04/2018 12:43 PM EDT
[2018-07-04 12:59] LABS: Baso % (Auto) 0.9 % (0.0-2.0); Eos # (Auto) 0.2 th/mm3 (0.0-0.4); Eos % (Auto) 6.7 % (0.0-4.0); Hematocrit 38.5 % (39.0-51.0); Hemoglobin 12.9 gm/dL (13.0-17.0); Lymph # (Auto) 1.6 th/mm3 (1.0-4.8); Lymph % (Auto) 43.6 % (9.0-44.0); Mean Corpuscular HGB Conc 33.4 % (32.0-36.0); Mean Corpuscular Hemoglobin 31.2 pg (27.0-34.0); Mean Corpuscular Volume 93.3 fL (80.0-100.0); Mean Platelet Volume 11.1 fL (7.0-11.0); Mono # (Auto) 0.6 th/mm3 (0.0-0.9); Mono % (Auto) 16.7 % (0.0-8.0); Neut # (Auto) 1.2 th/mm3 (1.8-7.7); Neut % (Auto) 32.1 % (16.0-70.0); Platelet Count 161 th/mm3 (150-450); Red Blood Count 4.13 mil/mm3 (4.50-5.90); Red Cell Distribution Width 13.6 % (11.6-17.2); White Blood Count 3.7 th/mm3 (4.0-11.0)
[2018-07-04] MEDS: Multivitamins/Iron Drops (Fe=10 MG/ML) 50 ML Bottle G-TUBE SCH (15:13)
[2018-07-04 18:13] LABS: Alanine Aminotransferase 45 U/L (12-78); Albumin 3.2 g/dL (3.4-5.0); Anion Gap 7 meq/L (5-15); Aspartate Aminotransferase 22 U/L (15-37); Blood Urea Nitrogen 4 mg/dL (7-18); Calcium 8.1 mg/dL (8.5-10.1); Carbon Dioxide 29.1 meq/L (21.0-32.0); Chloride 106 meq/L (98-107); Glomerular Filtration Rate Greater Than 89 mL/min (>89); Glucose,Random 91 mg/dL (74-106); Potassium 3.7 meq/L (3.5-5.1); Sodium 142 meq/L (136-145)
[2018-07-04 18:20] LABS: Alkaline Phosphatase 94 U/L (45-117); Phenytoin (Dilantin) 19.4 mcg/mL (10.0-20.0)
[2018-07-05] MEDS: levETIRAcetam 1000mg/100mL Inj 100 ML IV.SIG SCH ×2 (00:17→12:15)
[2018-07-05] MEDS: Dextrose 5%/Lactated Ringer's 1,000 ML IV.CONT SCH ×2 (00:18→10:38)
[2018-07-05 00:42] VITALS: RESP 20
[2018-07-05] MEDS: Loratadine 10 MG Tablet G-TUBE SCH (08:04)
[2018-07-05] MEDS: Multivitamins/Iron Drops (Fe=10 MG/ML) 50 ML Bottle G-TUBE SCH (08:05)
[2018-07-05] MEDS: Phenytoin Susp 100 MG/4 ML UDC NG/OG SCH ×2 (08:05→12:15)
[2018-07-05] MEDS: Senna/Docusate Sodium 8.6/50 MG Tablet PO SCH (08:05)
[2018-07-05] MEDS: Famotidine 20 MG Tablet PO SCH (08:05)
[2018-07-05 08:50] VITALS: PULSE 64; O2SAT 100
--- NOTE | 2018-07-05 11:43 | P.PNIM ---
Subjective Interval history: No distress. Recent chest x-ray and labs reveal no findings of acute concern. Clear for discharge 07/04/18. Placement pending. Physical Exam Vital signs: Vital Signs 07/04/18 12:00 07/04/18 16:00 07/04/18 19:31 Temperature 97.7 F 98.3 F Pulse Rate 72 51 L 51 L Respiratory Rate 20 20 20 Blood Pressure 133/76 109/58 L Pulse Oximetry 100 100 07/04/18 19:33 07/04/18 19:46 07/04/18 20:00 Temperature 97.9 F Pulse Rate 58 L 62 Respiratory Rate 18 22 Blood Pressure 117/57 L Pulse Oximetry 100 100 07/05/18 00:00 07/05/18 03:31 07/05/18 08:00 Temperature 98.2 F 98.0 F Pulse Rate 51 L 64 Respiratory Rate 20 20 Blood Pressure 114/56 L 143/65 H Pulse Oximetry 100 99 100 Intake & Output 07/04/18 07/05/18 07/05/18 18:59 06:59 18:59 Intake Total 1100 / 1100 1840 / 1840 1000 / 1000 Output Total 500 / 500 Balance 1100 / 1100 1340 / 1340 1000 / 1000 Weight 69.5 kg Intake: IV 1100 / 1100 1100 / 1100 1000 / 1000 D5W/LR Inj 1,000 ML @ 100 mls/ 1000 / 1000 1000 / 1000 1000 / 1000 hr IV.CONT .Q10H [facility] Rx#: [id number] Keppra 1000 mg/100 mL Premix 100 / 100 100 / 100 100 ML @ 400 mls/hr IV.SIG Q12H [facility] Rx#:[id number] Tube Feeding 710 / 710 Water Bolus Amount 30 / 30 Output: Urine 500 / 500 Other: Date of Last Bowel Movement 07/05/18 # Incontinent Bowel Movements 1 Results - Labs CBC & Chem 7: 07/04/18 12:35 07/04/18 17:35 Laboratory Results - last 24 hr 07/04/18 07/04/18 07/04/18 12:35 17:35 17:43 WBC 3.7 L RBC 4.13 L Hgb 12.9 L Hct 38.5 L MCV 93.3 MCH 31.2 MCHC 33.4 RDW 13.6 Plt Count 161 MPV 11.1 H Neut % (Auto) 32.1 Lymph % (Auto) 43.6 [place] % (Auto) 16.7 H Eos % (Auto) 6.7 H Baso % (Auto) 0.9 Neut # (Auto) 1.2 L Lymph # (Auto) 1.6 [place] # (Auto) 0.6 Eos # (Auto) 0.2 Baso # (Auto) 0.0 WBC Differential . Differential Comment Auto diff final Sodium 142 Potassium 3.7 D Chloride 106 Carbon Dioxide 29.1 Anion Gap 7 BUN 4 L Creatinine 0.71 Estimated GFR Greater than 89 POC Glucose 96 Random Glucose 91 Calcium 8.1 L Total Bilirubin 0.2 AST 22 ALT 45 Alkaline Phosphatase 94 Total Protein 7.0 D Albumin 3.2 L Phenytoin 19.4 07/05/18 07/05/18 00:23 06:16 WBC RBC Hgb Hct MCV MCH MCHC RDW Plt Count MPV Neut % (Auto) Lymph % (Auto) [place] % (Auto) Eos % (Auto) Baso % (Auto) Neut # (Auto) Lymph # (Auto) [place] # (Auto) Eos # (Auto) Baso # (Auto) WBC Differential Differential Comment Sodium Potassium Chloride Carbon Dioxide Anion Gap BUN Creatinine Estimated GFR POC Glucose 107 88 Random Glucose Calcium Total Bilirubin AST ALT Alkaline Phosphatase Total Protein Albumin Phenytoin - Imaging Impressions Chest X-Ray 07/04/18 00:00 CONCLUSION: Mild left basilar airspace disease suspected. - Procedures none Assessment and Plan - Assessment (1) Sepsis Code(s): A41.9 - Sepsis, unspecified organism Status: Acute (2) Anoxic encephalopathy Code(s): G93.1 - Anoxic brain damage, not elsewhere classified Status: Chronic (3) Seizure Code(s): R56.9 - Unspecified convulsions Status: Acute (4) Anoxic brain damage Code(s): G93.1 - Anoxic brain damage, not elsewhere classified Status: Acute - Plan 33-year-old male with chronic global neurologic debility admitted secondary to sepsis Sepsis Resolved Treatment competed. G/J-tube dysfunction Functional Seizure-like activity: Baseline treatments resumed Chronic encephalopathic: Continue tracheostomy Continue tube feeds Hypertension: Continue baseline treatments DVT prophylaxis: Continue Eliquis Discharge Planning: Discharged 07/04/18 (1) Sepsis Qualifiers: Sepsis type: sepsis due to unspecified organism Qualified Code(s): A41.9 - Sepsis, unspecified organism
[2018-07-05 12:43] VITALS: BP 106/53; TEMP 97.8
[2018-07-06] MEDS ORDERED: Phenytoin Sodium 100 MG Capsule PO SCH (21:00)
== END 2018-07-05 14:40 ==
LOC: NEPE 12:47 → NEDA 14:36 → HIMC 18:06 → N07 07-03 22:42
PROVIDERS: ADMIT Hospitalist; ATTEND Hospitalist

== ENCOUNTER 2018-08-21 22:24 | Inpatient (IN) ==
[2018-08-21] MEDS ORDERED: Vancomycin Inj 1 GM/200 ML PIGGYBACK IV.SIG ONE (22:45)
[2018-08-21] MEDS ORDERED: Piperacil/Tazo 3.375 GM Premix 50 ML IV.SIG ONE (22:45)
--- NOTE | 2018-08-21 23:16 | ED ---
HPI General Chief Complaint: Respiratory Symptoms Stated Complaint: Resp Time Seen by Provider: 08/21/18 22:32 Source: EMS Mode of arrival: EMS History of Present Illness HPI Narrative: Patient is a 33-year-old male from a nursing facility he has a trach he is bedbound he seems to have constantly contracted extremities he is well-known to the [employer] system he is coming in tonight because he was coughing through his trach brown fluid was coming out possibly coffee-ground emesis as well as he is diaphoretic possibly febrile possibly septic ROS and HPI limited due to the fact that he is nonverbal and seems to be altered possibly due to sepsis at this time Related Data Home Medications Medication Instructions Recorded Confirmed apixaban [Eliquis] 5 mg FEEDING TUBE BID 05/22/18 08/21/18 glycopyrrolate 1 mg FEEDING TUBE Q8H PRN 05/22/18 08/21/18 hyoscyamine sulfate [Levsin] 0.25 mg FEEDING TUBE Q4H PRN 05/22/18 08/21/18 levetiracetam 1,000 mg FEEDING TUBE Q12H 05/22/18 08/21/18 loratadine [Claritin] 10 mg FEEDING TUBE DAILY 05/22/18 08/21/18 baclofen 20 mg FEEDING TUBE Q8H 08/21/18 08/21/18 lorazepam 0.5 mg FEEDING TUBE DAILY 08/21/18 08/21/18 lorazepam [Ativan] 0.5 mg FEEDING TUBE Q4H PRN 08/21/18 08/21/18 metoprolol tartrate 25 mg FEEDING TUBE Q8H PRN 08/21/18 08/21/18 Previous Rx's Medication Instructions Recorded ipratropium-albuterol 1 amp NEB Q4H PRN #100 ml 07/04/18 diazepam 5 mg IM Q8HR PRN #10 ml 09/01/18 lorazepam 1 mg IM Q6H PRN #10 ml 09/01/18 oxycodone 5 mg FEEDING TUBE Q6HR PRN #12 tab 09/01/18 Allergies Allergy/AdvReac Type Severity Reaction Status Date / Time haloperidol AdvReac Severe Seizures Verified 06/09/18 09:58 *MDRO Multi-Drug Resistant AdvReac Unknown Dry Mucus Uncoded 06/09/18 09:58 Organism Membranes Review of Systems ROS Unobtainable ROS Unobtainable: unobtainable due to mental condition [facility] Medical History Medical History Tracheostomy dependent (Acute) GERD (gastroesophageal reflux disease) (Acute) Pancreatitis (Acute) Diabetes mellitus (Acute) Dyslipidemia (Acute) HTN (hypertension) (Acute) Seizure (Acute) DVT (deep venous thrombosis) (Acute) Anoxic brain damage (Acute) MDRO (multiple drug resistant organisms) resistance (Acute ~08/22/18) Multiple drug resistant organism (MDRO) culture positive (Acute) Surgical History Surgical History PEG (percutaneous endoscopic gastrostomy) status (Acute) Family History Family History Other No pertinent family history Social History Social History Substance History: No History of Abuse Second Hand Smoke Exposure: No Smoking Status: Never smoker How Often Do You Have a Drink Containing Alcohol: Never Recent Travel in [facility] within the Last 8 Weeks: No Recent Out of Country Travel within the Last 8 Weeks: No Exam Narrative Exam Narrative: GENERAL: Patient has brown coffee-ground fluid coming out of his trach no obvious respiratory distress skin very diaphoretic SKIN: Warm and dry. Very diaphoretic and warm HEAD: Atraumatic. Normocephalic. EYES: Pupils equal and round. No scleral icterus. No injection or drainage. ENT: No nasal bleeding or discharge. Mucous membranes pink and moist. NECK: Trachea midline. No JVD. Trach putting out fluid that is coffee-ground colored CARDIOVASCULAR: Regular rate and rhythm. RESPIRATORY: No accessory muscle use. Clear to auscultation. Breath sounds equal bilaterally. GASTROINTESTINAL: Abdomen soft, non-tender, nondistended. Hepatic and splenic margins not palpable. MUSCULOSKELETAL: Extremities held in decerebrate posturing upper and lower extremities non verbal PSYCHIATRIC: [place] eyes open no verbal response to voice command and questions Course Initial Documented Vital Signs Temperature 102.8 F H 08/21/18 23:15 Pulse Rate 155 H 08/21/18 23:15 Respiratory Rate 30 H 08/21/18 23:15 Blood Pressure 148/68 H 08/21/18 23:15 Pulse Oximetry 100 08/21/18 23:15 Last Documented Vital Signs Temperature 98.4 F 09/05/18 16:00 Pulse Rate 55 L 09/05/18 16:00 Respiratory Rate 16 09/05/18 16:00 Blood Pressure 132/65 09/05/18 16:00 Pulse Oximetry 98 09/05/18 16:00 Critical Care Time Critical Care Time: Yes Total Critical Care Time: 30 Attestation: Hypotensive febrile septic needing immediate attention with IV fluids VANCO ZOSYN AND resp trach attention admit ICU Medical Decision Making MDM Narrative Medical decision making narrative: pt is hypotensive febrile coughing and SOB emperic antibiotics and VANCO ZOSYN IV and IV NS and aadmitted to ICU also will need rule out of Coffee ground emesis vs PNA admit ICU Medical Screen Exam Complete: Yes Emergency Medical Condition: Yes Differential Diagnosis Differential Diagnosis: GI bleed vs PNA vs Bronchitis vs food reflux aspiration PNA erosion in esophagus blood thru trache other Lab Data Result diagrams: 09/02/18 04:00 08/31/18 03:55 Lab Results 08/21/18 08/21/18 08/21/18 Range/Units 23:00 23:00 23:00 WBC (4.0-11.0) th/mm3 RBC (4.50-5.90) mil/mm3 Hgb (13.0-17.0) gm/dL Hct (39.0-51.0) % MCV (80.0-100.0) fL MCH (27.0-34.0) pg MCHC (32.0-36.0) % RDW (11.6-17.2) % Plt Count (150-450) th/mm3 MPV (7.0-11.0) fL Neut % (Auto) (16.0-70.0) % Lymph % (Auto) (9.0-44.0) % [place] % (Auto) (0.0-8.0) % Eos % (Auto) (0.0-4.0) % Baso % (Auto) (0.0-2.0) % Neut # (Auto) (1.8-7.7) th/mm3 Lymph # (Auto) (1.0-4.8) th/mm3 [place] # (Auto) (0.0-0.9) th/mm3 Eos # (Auto) (0.0-0.4) th/mm3 Baso # (Auto) (0.0-0.2) th/mm3 WBC Differential Differential Comment Hematology Comments PT (9.8-11.6) sec INR Ratio APTT (24.3-30.1) sec Sodium 139 (136-145) meq/L Potassium 4.3 (3.5-5.1) meq/L Chloride 103 (98-107) meq/L Carbon Dioxide 21.5 (21.0-32.0) meq/L Anion Gap 15 (5-15) meq/L BUN 13 (7-18) mg/dL Creatinine 1.40 H (0.60-1.30) mg/dL Estimated GFR 72 L (>89) mL/min POC Glucose (68-110) mg/dl Random Glucose 173 H (74-106) mg/dL Hemoglobin A1c (4.3-6.0) % Lactic Acid 8.6 H* (0.4-2.0) mmol/L Calcium 9.4 (8.5-10.1) mg/dL Phosphorus (2.5-4.9) mg/dL Magnesium 2.2 (1.5-2.5) mg/dL Total Bilirubin 0.2 (0.2-1.0) mg/dL AST 29 (15-37) U/L ALT 68 (12-78) U/L Alkaline Phosphatase 93 (45-117) U/L Total Protein 9.3 H (6.4-8.2) g/dL Albumin 4.5 (3.4-5.0) g/dL TSH (0.358-3.740) uIU/mL Free T4 (0.76-1.46) ng/dL Urine Color Yellow (Yellw/Straw) Urine Clarity Hazy H (Clear) Urine pH 6.0 (5.0-8.5) Ur Specific [place] 1.015 (1.002-1.035) Urine Protein Negative (Neg-Trace) mg/dL Urine Glucose (UA) Negative (Negative) mg/dL Urine Ketones Negative (Negative) mg/dL Urine Occult Blood Negative (Negative) Urine Nitrate Negative (Negative) Urine Bilirubin Negative (Negative) Urine Urobilinogen 2.0 H (Less than 2) mg/dL Ur Leukocyte Esterase Negative (Negative) Urine RBC 1 (0-3) /hpf Urine WBC 1 (0-5) /hpf Hyaline Casts 4 (0-3) /lpf Urine Mucus Few H (Occasional) /lpf Micro UA Comment Cath-culture not ind Ur Microscopic Review Not Reportable Nasal Screen MRSA (PCR) (Negative) 08/22/18 08/22/18 08/22/18 Range/Units 00:13 00:25 01:05 WBC 13.6 H (4.0-11.0) th/mm3 RBC 4.82 (4.50-5.90) mil/mm3 Hgb 15.5 (13.0-17.0) gm/dL Hct 44.0 (39.0-51.0) % MCV 91.3 (80.0-100.0) fL MCH 32.2 (27.0-34.0) pg MCHC 35.3 (32.0-36.0) % RDW 14.3 (11.6-17.2) % Plt Count 266 (150-450) th/mm3 MPV 10.2 (7.0-11.0) fL Neut % (Auto) 84.3 H (16.0-70.0) % Lymph % (Auto) 6.7 L (9.0-44.0) % [place] % (Auto) 8.4 H (0.0-8.0) % Eos % (Auto) 0.2 (0.0-4.0) % Baso % (Auto) 0.4 (0.0-2.0) % Neut # (Auto) 11.5 H (1.8-7.7) th/mm3 Lymph # (Auto) 0.9 L (1.0-4.8) th/mm3 [place] # (Auto) 1.1 H (0.0-0.9) th/mm3 Eos # (Auto) 0.0 (0.0-0.4) th/mm3 Baso # (Auto) 0.1 (0.0-0.2) th/mm3 WBC Differential . Differential Comment Auto diff final Hematology Comments PT (9.8-11.6) sec INR Ratio APTT (24.3-30.1) sec Sodium (136-145) meq/L Potassium (3.5-5.1) meq/L Chloride (98-107) meq/L Carbon Dioxide (21.0-32.0) meq/L Anion Gap (5-15) meq/L BUN (7-18) mg/dL Creatinine (0.60-1.30) mg/dL Estimated GFR (>89) mL/min POC Glucose 113 H (68-110) mg/dl Random Glucose (74-106) mg/dL Hemoglobin A1c (4.3-6.0) % Lactic Acid (0.4-2.0) mmol/L Calcium (8.5-10.1) mg/dL Phosphorus (2.5-4.9) mg/dL Magnesium (1.5-2.5) mg/dL Total Bilirubin (0.2-1.0) mg/dL AST (15-37) U/L ALT (12-78) U/L Alkaline Phosphatase (45-117) U/L Total Protein (6.4-8.2) g/dL Albumin (3.4-5.0) g/dL TSH (0.358-3.740) uIU/mL Free T4 (0.76-1.46) ng/dL Urine Color (Yellw/Straw) Urine Clarity (Clear) Urine pH (5.0-8.5) Ur Specific [place] (1.002-1.035) Urine Protein (Neg-Trace) mg/dL Urine Glucose (UA) (Negative) mg/dL Urine Ketones (Negative) mg/dL Urine Occult Blood (Negative) Urine Nitrate (Negative) Urine Bilirubin (Negative) Urine Urobilinogen (Less than 2) mg/dL Ur Leukocyte Esterase (Negative) Urine RBC (0-3) /hpf Urine WBC (0-5) /hpf Hyaline Casts (0-3) /lpf Urine Mucus (Occasional) /lpf Micro UA Comment Ur Microscopic Review Nasal Screen MRSA (PCR) Not detected (Negative) 08/22/18 08/22/18 08/22/18 Range/Units 02:49 06:36 11:55 WBC (4.0-11.0) th/mm3 RBC (4.50-5.90) mil/mm3 Hgb (13.0-17.0) gm/dL Hct (39.0-51.0) % MCV (80.0-100.0) fL MCH (27.0-34.0) pg MCHC (32.0-36.0) % RDW (11.6-17.2) % Plt Count (150-450) th/mm3 MPV (7.0-11.0) fL Neut % (Auto) (16.0-70.0) % Lymph % (Auto) (9.0-44.0) % [place] % (Auto) (0.0-8.0) % Eos % (Auto) (0.0-4.0) % Baso % (Auto) (0.0-2.0) % Neut # (Auto) (1.8-7.7) th/mm3 Lymph # (Auto) (1.0-4.8) th/mm3 [place] # (Auto) (0.0-0.9) th/mm3 Eos # (Auto) (0.0-0.4) th/mm3 Baso # (Auto) (0.0-0.2) th/mm3 WBC Differential Differential Comment Hematology Comments PT (9.8-11.6) sec INR Ratio APTT (24.3-30.1) sec Sodium (136-145) meq/L Potassium (3.5-5.1) meq/L Chloride (98-107) meq/L Carbon Dioxide (21.0-32.0) meq/L Anion Gap (5-15) meq/L BUN (7-18) mg/dL Creatinine (0.60-1.30) mg/dL Estimated GFR (>89) mL/min POC Glucose 118 H 140 H (68-110) mg/dl Random Glucose (74-106) mg/dL Hemoglobin A1c (4.3-6.0) % Lactic Acid 1.8 (0.4-2.0) mmol/L Calcium (8.5-10.1) mg/dL Phosphorus (2.5-4.9) mg/dL Magnesium (1.5-2.5) mg/dL Total Bilirubin (0.2-1.0) mg/dL AST (15-37) U/L ALT (12-78) U/L Alkaline Phosphatase (45-117) U/L Total Protein (6.4-8.2) g/dL Albumin (3.4-5.0) g/dL TSH (0.358-3.740) uIU/mL Free T4 (0.76-1.46) ng/dL Urine Color (Yellw/Straw) Urine Clarity (Clear) Urine pH (5.0-8.5) Ur Specific [place] (1.002-1.035) Urine Protein (Neg-Trace) mg/dL Urine Glucose (UA) (Negative) mg/dL Urine Ketones (Negative) mg/dL Urine Occult Blood (Negative) Urine Nitrate (Negative) Urine Bilirubin (Negative) Urine Urobilinogen (Less than 2) mg/dL Ur Leukocyte Esterase (Negative) Urine RBC (0-3) /hpf Urine WBC (0-5) /hpf Hyaline Casts (0-3) /lpf Urine Mucus (Occasional) /lpf Micro UA Comment Ur Microscopic Review Nasal Screen MRSA (PCR) (Negative) 08/22/18 08/22/18 08/22/18 Range/Units 12:31 12:31 12:31 WBC (4.0-11.0) th/mm3 RBC (4.50-5.90) mil/mm3 Hgb (13.0-17.0) gm/dL Hct (39.0-51.0) % MCV (80.0-100.0) fL MCH (27.0-34.0) pg MCHC (32.0-36.0) % RDW (11.6-17.2) % Plt Count (150-450) th/mm3 MPV (7.0-11.0) fL Neut % (Auto) (16.0-70.0) % Lymph % (Auto) (9.0-44.0) % [place] % (Auto) (0.0-8.0) % Eos % (Auto) (0.0-4.0) % Baso % (Auto) (0.0-2.0) % Neut # (Auto) (1.8-7.7) th/mm3 Lymph # (Auto) (1.0-4.8) th/mm3 [place] # (Auto) (0.0-0.9) th/mm3 Eos # (Auto) (0.0-0.4) th/mm3 Baso # (Auto) (0.0-0.2) th/mm3 WBC Differential Differential Comment Hematology Comments PT 11.8 H (9.8-11.6) sec INR 1.2 Ratio APTT 23.7 L (24.3-30.1) sec Sodium 143 (136-145) meq/L Potassium 3.7 (3.5-5.1) meq/L Chloride 112 H D (98-107) meq/L Carbon Dioxide 25.8 (21.0-32.0) meq/L Anion Gap 5 (5-15) meq/L BUN 12 (7-18) mg/dL Creatinine 0.83 (0.60-1.30) mg/dL Estimated GFR Greater than 89 (>89) mL/min POC Glucose (68-110) mg/dl Random Glucose 112 H (74-106) mg/dL Hemoglobin A1c (4.3-6.0) % Lactic Acid 1.4 (0.4-2.0) mmol/L Calcium 8.2 L D (8.5-10.1) mg/dL Phosphorus 2.7 (2.5-4.9) mg/dL Magnesium 2.4 (1.5-2.5) mg/dL Total Bilirubin 0.2 (0.2-1.0) mg/dL AST 26 (15-37) U/L ALT 51 (12-78) U/L Alkaline Phosphatase 74 (45-117) U/L Total Protein 7.2 D (6.4-8.2) g/dL Albumin 3.5 D (3.4-5.0) g/dL TSH (0.358-3.740) uIU/mL Free T4 (0.76-1.46) ng/dL Urine Color (Yellw/Straw) Urine Clarity (Clear) Urine pH (5.0-8.5) Ur Specific [place] (1.002-1.035) Urine Protein (Neg-Trace) mg/dL Urine Glucose (UA) (Negative) mg/dL Urine Ketones (Negative) mg/dL Urine Occult Blood (Negative) Urine Nitrate (Negative) Urine Bilirubin (Negative) Urine Urobilinogen (Less than 2) mg/dL Ur Leukocyte Esterase (Negative) Urine RBC (0-3) /hpf Urine WBC (0-5) /hpf Hyaline Casts (0-3) /lpf Urine Mucus (Occasional) /lpf Micro UA Comment Ur Microscopic Review Nasal Screen MRSA (PCR) (Negative) 08/22/18 08/22/18 08/23/18 Range/Units 16:26 18:05 00:30 WBC 5.8 D (4.0-11.0) th/mm3 RBC 4.20 L (4.50-5.90) mil/mm3 Hgb 13.5 D (13.0-17.0) gm/dL Hct 38.6 L (39.0-51.0) % MCV 91.9 (80.0-100.0) fL MCH 32.2 (27.0-34.0) pg MCHC 35.1 (32.0-36.0) % RDW 14.1 (11.6-17.2) % Plt Count 148 L D (150-450) th/mm3 MPV 10.0 (7.0-11.0) fL Neut % (Auto) (16.0-70.0) % Lymph % (Auto) (9.0-44.0) % [place] % (Auto) (0.0-8.0) % Eos % (Auto) (0.0-4.0) % Baso % (Auto) (0.0-2.0) % Neut # (Auto) (1.8-7.7) th/mm3 Lymph # (Auto) (1.0-4.8) th/mm3 [place] # (Auto) (0.0-0.9) th/mm3 Eos # (Auto) (0.0-0.4) th/mm3 Baso # (Auto) (0.0-0.2) th/mm3 WBC Differential Differential Comment Hematology Comments PT (9.8-11.6) sec INR Ratio APTT (24.3-30.1) sec Sodium (136-145) meq/L Potassium (3.5-5.1) meq/L Chloride (98-107) meq/L Carbon Dioxide (21.0-32.0) meq/L Anion Gap (5-15) meq/L BUN (7-18) mg/dL Creatinine (0.60-1.30) mg/dL Estimated GFR (>89) mL/min POC Glucose 91 100 (68-110) mg/dl Random Glucose (74-106) mg/dL Hemoglobin A1c (4.3-6.0) % Lactic Acid (0.4-2.0) mmol/L Calcium (8.5-10.1) mg/dL Phosphorus (2.5-4.9) mg/dL Magnesium (1.5-2.5) mg/dL Total Bilirubin (0.2-1.0) mg/dL AST (15-37) U/L ALT (12-78) U/L Alkaline Phosphatase (45-117) U/L Total Protein (6.4-8.2) g/dL Albumin (3.4-5.0) g/dL TSH (0.358-3.740) uIU/mL Free T4 (0.76-1.46) ng/dL Urine Color (Yellw/Straw) Urine Clarity (Clear) Urine pH (5.0-8.5) Ur Specific [place] (1.002-1.035) Urine Protein (Neg-Trace) mg/dL Urine Glucose (UA) (Negative) mg/dL Urine Ketones (Negative) mg/dL Urine Occult Blood (Negative) Urine Nitrate (Negative) Urine Bilirubin (Negative) Urine Urobilinogen (Less than 2) mg/dL Ur Leukocyte Esterase (Negative) Urine RBC (0-3) /hpf Urine WBC (0-5) /hpf Hyaline Casts (0-3) /lpf Urine Mucus (Occasional) /lpf Micro UA Comment Ur Microscopic Review Nasal Screen MRSA (PCR) (Negative) 08/23/18 08/23/18 08/23/18 Range/Units 03:50 03:50 06:14 WBC 5.9 (4.0-11.0) th/mm3 RBC 3.69 L (4.50-5.90) mil/mm3 Hgb 11.7 L (13.0-17.0) gm/dL Hct 34.9 L (39.0-51.0) % MCV 94.4 (80.0-100.0) fL MCH 31.6 (27.0-34.0) pg MCHC 33.5 (32.0-36.0) % RDW 14.2 (11.6-17.2) % Plt Count 153 (150-450) th/mm3 MPV 10.2 (7.0-11.0) fL Neut % (Auto) 67.1 (16.0-70.0) % Lymph % (Auto) 19.6 (9.0-44.0) % [place] % (Auto) 10.5 H (0.0-8.0) % Eos % (Auto) 2.4 (0.0-4.0) % Baso % (Auto) 0.4 (0.0-2.0) % Neut # (Auto) 4.0 (1.8-7.7) th/mm3 Lymph # (Auto) 1.2 (1.0-4.8) th/mm3 [place] # (Auto) 0.6 (0.0-0.9) th/mm3 Eos # (Auto) 0.1 (0.0-0.4) th/mm3 Baso # (Auto) 0.0 (0.0-0.2) th/mm3 WBC Differential . Differential Comment Auto diff final Hematology Comments PT (9.8-11.6) sec INR Ratio APTT (24.3-30.1) sec Sodium 143 (136-145) meq/L Potassium 3.9 (3.5-5.1) meq/L Chloride 110 H (98-107) meq/L Carbon Dioxide 26.7 (21.0-32.0) meq/L Anion Gap 6 (5-15) meq/L BUN 5 L (7-18) mg/dL Creatinine 0.69 (0.60-1.30) mg/dL Estimated GFR Greater than 89 (>89) mL/min POC Glucose 98 (68-110) mg/dl Random Glucose 129 H (74-106) mg/dL Hemoglobin A1c (4.3-6.0) % Lactic Acid (0.4-2.0) mmol/L Calcium 8.0 L (8.5-10.1) mg/dL Phosphorus (2.5-4.9) mg/dL Magnesium (1.5-2.5) mg/dL Total Bilirubin 0.3 (0.2-1.0) mg/dL AST 26 (15-37) U/L ALT 43 (12-78) U/L Alkaline Phosphatase 68 (45-117) U/L Total Protein 6.3 L D (6.4-8.2) g/dL Albumin 3.0 L (3.4-5.0) g/dL TSH (0.358-3.740) uIU/mL Free T4 (0.76-1.46) ng/dL Urine Color (Yellw/Straw) Urine Clarity (Clear) Urine pH (5.0-8.5) Ur Specific [place] (1.002-1.035) Urine Protein (Neg-Trace) mg/dL Urine Glucose (UA) (Negative) mg/dL Urine Ketones (Negative) mg/dL Urine Occult Blood (Negative) Urine Nitrate (Negative) Urine Bilirubin (Negative) Urine Urobilinogen (Less than 2) mg/dL Ur Leukocyte Esterase (Negative) Urine RBC (0-3) /hpf Urine WBC (0-5) /hpf Hyaline Casts (0-3) /lpf Urine Mucus (Occasional) /lpf Micro UA Comment Ur Microscopic Review Nasal Screen MRSA (PCR) (Negative) 08/23/18 08/23/18 08/24/18 Range/Units 11:43 17:08 01:49 WBC (4.0-11.0) th/mm3 RBC (4.50-5.90) mil/mm3 Hgb (13.0-17.0) gm/dL Hct (39.0-51.0) % MCV (80.0-100.0) fL MCH (27.0-34.0) pg MCHC (32.0-36.0) % RDW (11.6-17.2) % Plt Count (150-450) th/mm3 MPV (7.0-11.0) fL Neut % (Auto) (16.0-70.0) % Lymph % (Auto) (9.0-44.0) % [place] % (Auto) (0.0-8.0) % Eos % (Auto) (0.0-4.0) % Baso % (Auto) (0.0-2.0) % Neut # (Auto) (1.8-7.7) th/mm3 Lymph # (Auto) (1.0-4.8) th/mm3 [place] # (Auto) (0.0-0.9) th/mm3 Eos # (Auto) (0.0-0.4) th/mm3 Baso # (Auto) (0.0-0.2) th/mm3 WBC Differential Differential Comment Hematology Comments PT (9.8-11.6) sec INR Ratio APTT (24.3-30.1) sec Sodium (136-145) meq/L Potassium (3.5-5.1) meq/L Chloride (98-107) meq/L Carbon Dioxide (21.0-32.0) meq/L Anion Gap (5-15) meq/L BUN (7-18) mg/dL Creatinine (0.60-1.30) mg/dL Estimated GFR (>89) mL/min POC Glucose 86 85 93 (68-110) mg/dl Random Glucose (74-106) mg/dL Hemoglobin A1c (4.3-6.0) % Lactic Acid (0.4-2.0) mmol/L Calcium (8.5-10.1) mg/dL Phosphorus (2.5-4.9) mg/dL Magnesium (1.5-2.5) mg/dL Total Bilirubin (0.2-1.0) mg/dL AST (15-37) U/L ALT (12-78) U/L Alkaline Phosphatase (45-117) U/L Total Protein (6.4-8.2) g/dL Albumin (3.4-5.0) g/dL TSH (0.358-3.740) uIU/mL Free T4 (0.76-1.46) ng/dL Urine Color (Yellw/Straw) Urine Clarity (Clear) Urine pH (5.0-8.5) Ur Specific [place] (1.002-1.035) Urine Protein (Neg-Trace) mg/dL Urine Glucose (UA) (Negative) mg/dL Urine Ketones (Negative) mg/dL Urine Occult Blood (Negative) Urine Nitrate (Negative) Urine Bilirubin (Negative) Urine Urobilinogen (Less than 2) mg/dL Ur Leukocyte Esterase (Negative) Urine RBC (0-3) /hpf Urine WBC (0-5) /hpf Hyaline Casts (0-3) /lpf Urine Mucus (Occasional) /lpf Micro UA Comment Ur Microscopic Review Nasal Screen MRSA (PCR) (Negative) 08/24/18 08/24/18 08/24/18 Range/Units 04:20 04:20 04:20 WBC 3.3 L (4.0-11.0) th/mm3 RBC 3.42 L (4.50-5.90) mil/mm3 Hgb 10.8 L (13.0-17.0) gm/dL Hct 32.4 L (39.0-51.0) % MCV 94.7 (80.0-100.0) fL MCH 31.4 (27.0-34.0) pg MCHC 33.2 (32.0-36.0) % RDW 13.8 (11.6-17.2) % Plt Count 148 L (150-450) th/mm3 MPV 9.6 (7.0-11.0) fL Neut % (Auto) 35.6 (16.0-70.0) % Lymph % (Auto) 44.1 H (9.0-44.0) % [place] % (Auto) 14.1 H (0.0-8.0) % Eos % (Auto) 5.6 H (0.0-4.0) % Baso % (Auto) 0.6 (0.0-2.0) % Neut # (Auto) 1.2 L (1.8-7.7) th/mm3 Lymph # (Auto) 1.4 (1.0-4.8) th/mm3 [place] # (Auto) 0.5 (0.0-0.9) th/mm3 Eos # (Auto) 0.2 (0.0-0.4) th/mm3 Baso # (Auto) 0.0 (0.0-0.2) th/mm3 WBC Differential . Differential Comment Auto diff final Hematology Comments PT (9.8-11.6) sec INR Ratio APTT (24.3-30.1) sec Sodium 145 (136-145) meq/L Potassium 3.3 L (3.5-5.1) meq/L Chloride 110 H (98-107) meq/L Carbon Dioxide 27.1 (21.0-32.0) meq/L Anion Gap 8 (5-15) meq/L BUN 3 L (7-18) mg/dL Creatinine 0.64 (0.60-1.30) mg/dL Estimated GFR Greater than 89 (>89) mL/min POC Glucose (68-110) mg/dl Random Glucose 92 (74-106) mg/dL Hemoglobin A1c 5.2 (4.3-6.0) % Lactic Acid (0.4-2.0) mmol/L Calcium 7.6 L (8.5-10.1) mg/dL Phosphorus 3.8 D (2.5-4.9) mg/dL Magnesium 1.9 (1.5-2.5) mg/dL Total Bilirubin 0.3 (0.2-1.0) mg/dL AST 22 (15-37) U/L ALT 43 (12-78) U/L Alkaline Phosphatase 63 (45-117) U/L Total Protein 6.0 L (6.4-8.2) g/dL Albumin 2.8 L (3.4-5.0) g/dL TSH 0.964 (0.358-3.740) uIU/mL Free T4 0.95 (0.76-1.46) ng/dL Urine Color (Yellw/Straw) Urine Clarity (Clear) Urine pH (5.0-8.5) Ur Specific [place] (1.002-1.035) Urine Protein (Neg-Trace) mg/dL Urine Glucose (UA) (Negative) mg/dL Urine Ketones (Negative) mg/dL Urine Occult Blood (Negative) Urine Nitrate (Negative) Urine Bilirubin (Negative) Urine Urobilinogen (Less than 2) mg/dL Ur Leukocyte Esterase (Negative) Urine RBC (0-3) /hpf Urine WBC (0-5) /hpf Hyaline Casts (0-3) /lpf Urine Mucus (Occasional) /lpf Micro UA Comment Ur Microscopic Review Nasal Screen MRSA (PCR) (Negative) 08/24/18 08/24/18 08/24/18 Range/Units 05:59 12:34 16:51 WBC (4.0-11.0) th/mm3 RBC (4.50-5.90) mil/mm3 Hgb (13.0-17.0) gm/dL Hct (39.0-51.0) % MCV (80.0-100.0) fL MCH (27.0-34.0) pg MCHC (32.0-36.0) % RDW (11.6-17.2) % Plt Count (150-450) th/mm3 MPV (7.0-11.0) fL Neut % (Auto) (16.0-70.0) % Lymph % (Auto) (9.0-44.0) % [place] % (Auto) (0.0-8.0) % Eos % (Auto) (0.0-4.0) % Baso % (Auto) (0.0-2.0) % Neut # (Auto) (1.8-7.7) th/mm3 Lymph # (Auto) (1.0-4.8) th/mm3 [place] # (Auto) (0.0-0.9) th/mm3 Eos # (Auto) (0.0-0.4) th/mm3 Baso # (Auto) (0.0-0.2) th/mm3 WBC Differential Differential Comment Hematology Comments PT (9.8-11.6) sec INR Ratio APTT (24.3-30.1) sec Sodium (136-145) meq/L Potassium (3.5-5.1) meq/L Chloride (98-107) meq/L Carbon Dioxide (21.0-32.0) meq/L Anion Gap (5-15) meq/L BUN (7-18) mg/dL Creatinine (0.60-1.30) mg/dL Estimated GFR (>89) mL/min POC Glucose 88 88 83 (68-110) mg/dl Random Glucose (74-106) mg/dL Hemoglobin A1c (4.3-6.0) % Lactic Acid (0.4-2.0) mmol/L Calcium (8.5-10.1) mg/dL Phosphorus (2.5-4.9) mg/dL Magnesium (1.5-2.5) mg/dL Total Bilirubin (0.2-1.0) mg/dL AST (15-37) U/L ALT (12-78) U/L Alkaline Phosphatase (45-117) U/L Total Protein (6.4-8.2) g/dL Albumin (3.4-5.0) g/dL TSH (0.358-3.740) uIU/mL Free T4 (0.76-1.46) ng/dL Urine Color (Yellw/Straw) Urine Clarity (Clear) Urine pH (5.0-8.5) Ur Specific [place] (1.002-1.035) Urine Protein (Neg-Trace) mg/dL Urine Glucose (UA) (Negative) mg/dL Urine Ketones (Negative) mg/dL Urine Occult Blood (Negative) Urine Nitrate (Negative) Urine Bilirubin (Negative) Urine Urobilinogen (Less than 2) mg/dL Ur Leukocyte Esterase (Negative) Urine RBC (0-3) /hpf Urine WBC (0-5) /hpf Hyaline Casts (0-3) /lpf Urine Mucus (Occasional) /lpf Micro UA Comment Ur Microscopic Review Nasal Screen MRSA (PCR) (Negative) 08/24/18 08/25/18 08/25/18 Range/Units 23:57 04:10 04:10 WBC 4.0 (4.0-11.0) th/mm3 RBC 3.55 L (4.50-5.90) mil/mm3 Hgb 11.2 L (13.0-17.0) gm/dL Hct 33.4 L (39.0-51.0) % MCV 94.0 (80.0-100.0) fL MCH 31.4 (27.0-34.0) pg MCHC 33.4 (32.0-36.0) % RDW 13.6 (11.6-17.2) % Plt Count 142 L (150-450) th/mm3 MPV 10.0 (7.0-11.0) fL Neut % (Auto) 47.3 (16.0-70.0) % Lymph % (Auto) 34.0 (9.0-44.0) % [place] % (Auto) 12.5 H (0.0-8.0) % Eos % (Auto) 5.6 H (0.0-4.0) % Baso % (Auto) 0.6 (0.0-2.0) % Neut # (Auto) 1.9 (1.8-7.7) th/mm3 Lymph # (Auto) 1.3 (1.0-4.8) th/mm3 [place] # (Auto) 0.5 (0.0-0.9) th/mm3 Eos # (Auto) 0.2 (0.0-0.4) th/mm3 Baso # (Auto) 0.0 (0.0-0.2) th/mm3 WBC Differential . Differential Comment Auto diff final Hematology Comments PT (9.8-11.6) sec INR Ratio APTT (24.3-30.1) sec Sodium 144 (136-145) meq/L Potassium 3.3 L (3.5-5.1) meq/L Chloride 110 H (98-107) meq/L Carbon Dioxide 26.8 (21.0-32.0) meq/L Anion Gap 7 (5-15) meq/L BUN 3 L (7-18) mg/dL Creatinine 0.59 L (0.60-1.30) mg/dL Estimated GFR Greater than 89 (>89) mL/min POC Glucose 79 (68-110) mg/dl Random Glucose 86 (74-106) mg/dL Hemoglobin A1c (4.3-6.0) % Lactic Acid (0.4-2.0) mmol/L Calcium 7.9 L (8.5-10.1) mg/dL Phosphorus 3.1 (2.5-4.9) mg/dL Magnesium 2.0 (1.5-2.5) mg/dL Total Bilirubin 0.3 (0.2-1.0) mg/dL AST 21 (15-37) U/L ALT 40 (12-78) U/L Alkaline Phosphatase 69 (45-117) U/L Total Protein 6.1 L (6.4-8.2) g/dL Albumin 2.9 L (3.4-5.0) g/dL TSH (0.358-3.740) uIU/mL Free T4 (0.76-1.46) ng/dL Urine Color (Yellw/Straw) Urine Clarity (Clear) Urine pH (5.0-8.5) Ur Specific [place] (1.002-1.035) Urine Protein (Neg-Trace) mg/dL Urine Glucose (UA) (Negative) mg/dL Urine Ketones (Negative) mg/dL Urine Occult Blood (Negative) Urine Nitrate (Negative) Urine Bilirubin (Negative) Urine Urobilinogen (Less than 2) mg/dL Ur Leukocyte Esterase (Negative) Urine RBC (0-3) /hpf Urine WBC (0-5) /hpf Hyaline Casts (0-3) /lpf Urine Mucus (Occasional) /lpf Micro UA Comment Ur Microscopic Review Nasal Screen MRSA (PCR) (Negative) 08/25/18 08/25/18 08/26/18 Range/Units 12:00 17:33 00:11 WBC (4.0-11.0) th/mm3 RBC (4.50-5.90) mil/mm3 Hgb (13.0-17.0) gm/dL Hct (39.0-51.0) % MCV (80.0-100.0) fL MCH (27.0-34.0) pg MCHC (32.0-36.0) % RDW (11.6-17.2) % Plt Count (150-450) th/mm3 MPV (7.0-11.0) fL Neut % (Auto) (16.0-70.0) % Lymph % (Auto) (9.0-44.0) % [place] % (Auto) (0.0-8.0) % Eos % (Auto) (0.0-4.0) % Baso % (Auto) (0.0-2.0) % Neut # (Auto) (1.8-7.7) th/mm3 Lymph # (Auto) (1.0-4.8) th/mm3 [place] # (Auto) (0.0-0.9) th/mm3 Eos # (Auto) (0.0-0.4) th/mm3 Baso # (Auto) (0.0-0.2) th/mm3 WBC Differential Differential Comment Hematology Comments PT (9.8-11.6) sec INR Ratio APTT (24.3-30.1) sec Sodium (136-145) meq/L Potassium (3.5-5.1) meq/L Chloride (98-107) meq/L Carbon Dioxide (21.0-32.0) meq/L Anion Gap (5-15) meq/L BUN (7-18) mg/dL Creatinine (0.60-1.30) mg/dL Estimated GFR (>89) mL/min POC Glucose 101 105 110 (68-110) mg/dl Random Glucose (74-106) mg/dL Hemoglobin A1c (4.3-6.0) % Lactic Acid (0.4-2.0) mmol/L Calcium (8.5-10.1) mg/dL Phosphorus (2.5-4.9) mg/dL Magnesium (1.5-2.5) mg/dL Total Bilirubin (0.2-1.0) mg/dL AST (15-37) U/L ALT (12-78) U/L Alkaline Phosphatase (45-117) U/L Total Protein (6.4-8.2) g/dL Albumin (3.4-5.0) g/dL TSH (0.358-3.740) uIU/mL Free T4 (0.76-1.46) ng/dL Urine Color (Yellw/Straw) Urine Clarity (Clear) Urine pH (5.0-8.5) Ur Specific [place] (1.002-1.035) Urine Protein (Neg-Trace) mg/dL Urine Glucose (UA) (Negative) mg/dL Urine Ketones (Negative) mg/dL Urine Occult Blood (Negative) Urine Nitrate (Negative) Urine Bilirubin (Negative) Urine Urobilinogen (Less than 2) mg/dL Ur Leukocyte Esterase (Negative) Urine RBC (0-3) /hpf Urine WBC (0-5) /hpf Hyaline Casts (0-3) /lpf Urine Mucus (Occasional) /lpf Micro UA Comment Ur Microscopic Review Nasal Screen MRSA (PCR) (Negative) 08/26/18 08/26/18 08/26/18 Range/Units 04:00 04:00 12:09 WBC 5.0 (4.0-11.0) th/mm3 RBC 3.84 L (4.50-5.90) mil/mm3 Hgb 11.9 L (13.0-17.0) gm/dL Hct 35.7 L (39.0-51.0) % MCV 93.0 (80.0-100.0) fL MCH 31.1 (27.0-34.0) pg MCHC 33.4 (32.0-36.0) % RDW 13.7 (11.6-17.2) % Plt Count 159 (150-450) th/mm3 MPV 9.8 (7.0-11.0) fL Neut % (Auto) 55.7 (16.0-70.0) % Lymph % (Auto) 26.2 (9.0-44.0) % [place] % (Auto) 13.2 H (0.0-8.0) % Eos % (Auto) 4.5 H (0.0-4.0) % Baso % (Auto) 0.4 (0.0-2.0) % Neut # (Auto) 2.8 (1.8-7.7) th/mm3 Lymph # (Auto) 1.3 (1.0-4.8) th/mm3 [place] # (Auto) 0.7 (0.0-0.9) th/mm3 Eos # (Auto) 0.2 (0.0-0.4) th/mm3 Baso # (Auto) 0.0 (0.0-0.2) th/mm3 WBC Differential . Differential Comment Auto diff final Hematology Comments PT (9.8-11.6) sec INR Ratio APTT (24.3-30.1) sec Sodium 144 (136-145) meq/L Potassium 3.6 (3.5-5.1) meq/L Chloride 108 H (98-107) meq/L Carbon Dioxide 27.9 (21.0-32.0) meq/L Anion Gap 8 (5-15) meq/L BUN 3 L (7-18) mg/dL Creatinine 0.72 (0.60-1.30) mg/dL Estimated GFR Greater than 89 (>89) mL/min POC Glucose 87 (68-110) mg/dl Random Glucose 97 (74-106) mg/dL Hemoglobin A1c (4.3-6.0) % Lactic Acid (0.4-2.0) mmol/L Calcium 8.3 L (8.5-10.1) mg/dL Phosphorus 3.2 (2.5-4.9) mg/dL Magnesium 2.0 (1.5-2.5) mg/dL Total Bilirubin 0.3 (0.2-1.0) mg/dL AST 16 (15-37) U/L ALT 38 (12-78) U/L Alkaline Phosphatase 74 (45-117) U/L Total Protein 6.6 (6.4-8.2) g/dL Albumin 3.0 L (3.4-5.0) g/dL TSH (0.358-3.740) uIU/mL Free T4 (0.76-1.46) ng/dL Urine Color (Yellw/Straw) Urine Clarity (Clear) Urine pH (5.0-8.5) Ur Specific [place] (1.002-1.035) Urine Protein (Neg-Trace) mg/dL Urine Glucose (UA) (Negative) mg/dL Urine Ketones (Negative) mg/dL Urine Occult Blood (Negative) Urine Nitrate (Negative) Urine Bilirubin (Negative) Urine Urobilinogen (Less than 2) mg/dL Ur Leukocyte Esterase (Negative) Urine RBC (0-3) /hpf Urine WBC (0-5) /hpf Hyaline Casts (0-3) /lpf Urine Mucus (Occasional) /lpf Micro UA Comment Ur Microscopic Review Nasal Screen MRSA (PCR) (Negative) 08/26/18 08/26/18 08/27/18 Range/Units 16:35 23:49 03:55 WBC 4.2 (4.0-11.0) th/mm3 RBC 4.07 L (4.50-5.90) mil/mm3 Hgb 12.7 L (13.0-17.0) gm/dL Hct 38.1 L (39.0-51.0) % MCV 93.8 (80.0-100.0) fL MCH 31.2 (27.0-34.0) pg MCHC 33.2 (32.0-36.0) % RDW 14.1 (11.6-17.2) % Plt Count 180 (150-450) th/mm3 MPV 10.4 (7.0-11.0) fL Neut % (Auto) 44.1 (16.0-70.0) % Lymph % (Auto) 33.9 (9.0-44.0) % [place] % (Auto) 16.0 H (0.0-8.0) % Eos % (Auto) 5.3 H (0.0-4.0) % Baso % (Auto) 0.7 (0.0-2.0) % Neut # (Auto) 1.9 (1.8-7.7) th/mm3 Lymph # (Auto) 1.4 (1.0-4.8) th/mm3 [place] # (Auto) 0.7 (0.0-0.9) th/mm3 Eos # (Auto) 0.2 (0.0-0.4) th/mm3 Baso # (Auto) 0.0 (0.0-0.2) th/mm3 WBC Differential . Differential Comment Auto diff final Hematology Comments PT (9.8-11.6) sec INR Ratio APTT (24.3-30.1) sec Sodium (136-145) meq/L Potassium (3.5-5.1) meq/L Chloride (98-107) meq/L Carbon Dioxide (21.0-32.0) meq/L Anion Gap (5-15) meq/L BUN (7-18) mg/dL Creatinine (0.60-1.30) mg/dL Estimated GFR (>89) mL/min POC Glucose 72 99 (68-110) mg/dl Random Glucose (74-106) mg/dL Hemoglobin A1c (4.3-6.0) % Lactic Acid (0.4-2.0) mmol/L Calcium (8.5-10.1) mg/dL Phosphorus (2.5-4.9) mg/dL Magnesium (1.5-2.5) mg/dL Total Bilirubin (0.2-1.0) mg/dL AST (15-37) U/L ALT (12-78) U/L Alkaline Phosphatase (45-117) U/L Total Protein (6.4-8.2) g/dL Albumin (3.4-5.0) g/dL TSH (0.358-3.740) uIU/mL Free T4 (0.76-1.46) ng/dL Urine Color (Yellw/Straw) Urine Clarity (Clear) Urine pH (5.0-8.5) Ur Specific [place] (1.002-1.035) Urine Protein (Neg-Trace) mg/dL Urine Glucose (UA) (Negative) mg/dL Urine Ketones (Negative) mg/dL Urine Occult Blood (Negative) Urine Nitrate (Negative) Urine Bilirubin (Negative) Urine Urobilinogen (Less than 2) mg/dL Ur Leukocyte Esterase (Negative) Urine RBC (0-3) /hpf Urine WBC (0-5) /hpf Hyaline Casts (0-3) /lpf Urine Mucus (Occasional) /lpf Micro UA Comment Ur Microscopic Review Nasal Screen MRSA (PCR) (Negative) 08/27/18 08/27/18 08/27/18 Range/Units 03:55 06:05 13:27 WBC (4.0-11.0) th/mm3 RBC (4.50-5.90) mil/mm3 Hgb (13.0-17.0) gm/dL Hct (39.0-51.0) % MCV (80.0-100.0) fL MCH (27.0-34.0) pg MCHC (32.0-36.0) % RDW (11.6-17.2) % Plt Count (150-450) th/mm3 MPV (7.0-11.0) fL Neut % (Auto) (16.0-70.0) % Lymph % (Auto) (9.0-44.0) % [place] % (Auto) (0.0-8.0) % Eos % (Auto) (0.0-4.0) % Baso % (Auto) (0.0-2.0) % Neut # (Auto) (1.8-7.7) th/mm3 Lymph # (Auto) (1.0-4.8) th/mm3 [place] # (Auto) (0.0-0.9) th/mm3 Eos # (Auto) (0.0-0.4) th/mm3 Baso # (Auto) (0.0-0.2) th/mm3 WBC Differential Differential Comment Hematology Comments PT (9.8-11.6) sec INR Ratio APTT (24.3-30.1) sec Sodium 146 H (136-145) meq/L Potassium 3.6 (3.5-5.1) meq/L Chloride 109 H (98-107) meq/L Carbon Dioxide 29.4 (21.0-32.0) meq/L Anion Gap 8 (5-15) meq/L BUN 3 L (7-18) mg/dL Creatinine 0.70 (0.60-1.30) mg/dL Estimated GFR Greater than 89 (>89) mL/min POC Glucose 120 H 84 (68-110) mg/dl Random Glucose 80 (74-106) mg/dL Hemoglobin A1c (4.3-6.0) % Lactic Acid (0.4-2.0) mmol/L Calcium 8.9 (8.5-10.1) mg/dL Phosphorus 4.5 D (2.5-4.9) mg/dL Magnesium 2.5 (1.5-2.5) mg/dL Total Bilirubin 0.2 (0.2-1.0) mg/dL AST 15 (15-37) U/L ALT 37 (12-78) U/L Alkaline Phosphatase 79 (45-117) U/L Total Protein 7.1 (6.4-8.2) g/dL Albumin 3.2 L (3.4-5.0) g/dL TSH (0.358-3.740) uIU/mL Free T4 (0.76-1.46) ng/dL Urine Color (Yellw/Straw) Urine Clarity (Clear) Urine pH (5.0-8.5) Ur Specific [place] (1.002-1.035) Urine Protein (Neg-Trace) mg/dL Urine Glucose (UA) (Negative) mg/dL Urine Ketones (Negative) mg/dL Urine Occult Blood (Negative) Urine Nitrate (Negative) Urine Bilirubin (Negative) Urine Urobilinogen (Less than 2) mg/dL Ur Leukocyte Esterase (Negative) Urine RBC (0-3) /hpf Urine WBC (0-5) /hpf Hyaline Casts (0-3) /lpf Urine Mucus (Occasional) /lpf Micro UA Comment Ur Microscopic Review Nasal Screen MRSA (PCR) (Negative) 08/27/18 08/27/18 08/28/18 Range/Units 18:53 23:36 03:40 WBC 3.2 L (4.0-11.0) th/mm3 RBC 3.63 L (4.50-5.90) mil/mm3 Hgb 11.3 L (13.0-17.0) gm/dL Hct 34.0 L (39.0-51.0) % MCV 93.8 (80.0-100.0) fL MCH 31.2 (27.0-34.0) pg MCHC 33.3 (32.0-36.0) % RDW 14.1 (11.6-17.2) % Plt Count 152 (150-450) th/mm3 MPV 10.1 (7.0-11.0) fL Neut % (Auto) 44.3 (16.0-70.0) % Lymph % (Auto) 31.1 (9.0-44.0) % [place] % (Auto) 15.5 H (0.0-8.0) % Eos % (Auto) 8.5 H (0.0-4.0) % Baso % (Auto) 0.6 (0.0-2.0) % Neut # (Auto) 1.4 L (1.8-7.7) th/mm3 Lymph # (Auto) 1.0 (1.0-4.8) th/mm3 [place] # (Auto) 0.5 (0.0-0.9) th/mm3 Eos # (Auto) 0.3 (0.0-0.4) th/mm3 Baso # (Auto) 0.0 (0.0-0.2) th/mm3 WBC Differential . Differential Comment Auto diff final Hematology Comments PT (9.8-11.6) sec INR Ratio APTT (24.3-30.1) sec Sodium (136-145) meq/L Potassium (3.5-5.1) meq/L Chloride (98-107) meq/L Carbon Dioxide (21.0-32.0) meq/L Anion Gap (5-15) meq/L BUN (7-18) mg/dL Creatinine (0.60-1.30) mg/dL Estimated GFR (>89) mL/min POC Glucose 103 81 (68-110) mg/dl Random Glucose (74-106) mg/dL Hemoglobin A1c (4.3-6.0) % Lactic Acid (0.4-2.0) mmol/L Calcium (8.5-10.1) mg/dL Phosphorus (2.5-4.9) mg/dL Magnesium (1.5-2.5) mg/dL Total Bilirubin (0.2-1.0) mg/dL AST (15-37) U/L ALT (12-78) U/L Alkaline Phosphatase (45-117) U/L Total Protein (6.4-8.2) g/dL Albumin (3.4-5.0) g/dL TSH (0.358-3.740) uIU/mL Free T4 (0.76-1.46) ng/dL Urine Color (Yellw/Straw) Urine Clarity (Clear) Urine pH (5.0-8.5) Ur Specific [place] (1.002-1.035) Urine Protein (Neg-Trace) mg/dL Urine Glucose (UA) (Negative) mg/dL Urine Ketones (Negative) mg/dL Urine Occult Blood (Negative) Urine Nitrate (Negative) Urine Bilirubin (Negative) Urine Urobilinogen (Less than 2) mg/dL Ur Leukocyte Esterase (Negative) Urine RBC (0-3) /hpf Urine WBC (0-5) /hpf Hyaline Casts (0-3) /lpf Urine Mucus (Occasional) /lpf Micro UA Comment Ur Microscopic Review Nasal Screen MRSA (PCR) (Negative) 08/28/18 08/28/18 08/28/18 Range/Units 03:40 05:32 12:18 WBC (4.0-11.0) th/mm3 RBC (4.50-5.90) mil/mm3 Hgb (13.0-17.0) gm/dL Hct (39.0-51.0) % MCV (80.0-100.0) fL MCH (27.0-34.0) pg MCHC (32.0-36.0) % RDW (11.6-17.2) % Plt Count (150-450) th/mm3 MPV (7.0-11.0) fL Neut % (Auto) (16.0-70.0) % Lymph % (Auto) (9.0-44.0) % [place] % (Auto) (0.0-8.0) % Eos % (Auto) (0.0-4.0) % Baso % (Auto) (0.0-2.0) % Neut # (Auto) (1.8-7.7) th/mm3 Lymph # (Auto) (1.0-4.8) th/mm3 [place] # (Auto) (0.0-0.9) th/mm3 Eos # (Auto) (0.0-0.4) th/mm3 Baso # (Auto) (0.0-0.2) th/mm3 WBC Differential Differential Comment Hematology Comments PT (9.8-11.6) sec INR Ratio APTT (24.3-30.1) sec Sodium 141 (136-145) meq/L Potassium 3.6 (3.5-5.1) meq/L Chloride 107 (98-107) meq/L Carbon Dioxide 28.0 (21.0-32.0) meq/L Anion Gap 6 (5-15) meq/L BUN 6 L (7-18) mg/dL Creatinine 0.73 (0.60-1.30) mg/dL Estimated GFR Greater than 89 (>89) mL/min POC Glucose 89 100 (68-110) mg/dl Random Glucose 95 (74-106) mg/dL Hemoglobin A1c (4.3-6.0) % Lactic Acid (0.4-2.0) mmol/L Calcium 7.7 L D (8.5-10.1) mg/dL Phosphorus 3.2 D (2.5-4.9) mg/dL Magnesium 2.2 (1.5-2.5) mg/dL Total Bilirubin 0.2 (0.2-1.0) mg/dL AST 11 L (15-37) U/L ALT 28 (12-78) U/L Alkaline Phosphatase 70 (45-117) U/L Total Protein 6.4 D (6.4-8.2) g/dL Albumin 2.8 L (3.4-5.0) g/dL TSH (0.358-3.740) uIU/mL Free T4 (0.76-1.46) ng/dL Urine Color (Yellw/Straw) Urine Clarity (Clear) Urine pH (5.0-8.5) Ur Specific [place] (1.002-1.035) Urine Protein (Neg-Trace) mg/dL Urine Glucose (UA) (Negative) mg/dL Urine Ketones (Negative) mg/dL Urine Occult Blood (Negative) Urine Nitrate (Negative) Urine Bilirubin (Negative) Urine Urobilinogen (Less than 2) mg/dL Ur Leukocyte Esterase (Negative) Urine RBC (0-3) /hpf Urine WBC (0-5) /hpf Hyaline Casts (0-3) /lpf Urine Mucus (Occasional) /lpf Micro UA Comment Ur Microscopic Review Nasal Screen MRSA (PCR) (Negative) 08/28/18 08/28/18 08/29/18 Range/Units 17:41 23:25 04:08 WBC 4.5 (4.0-11.0) th/mm3 RBC 4.04 L (4.50-5.90) mil/mm3 Hgb 12.7 L (13.0-17.0) gm/dL Hct 37.2 L (39.0-51.0) % MCV 92.2 (80.0-100.0) fL MCH 31.5 (27.0-34.0) pg MCHC 34.2 (32.0-36.0) % RDW 13.9 (11.6-17.2) % Plt Count 192 (150-450) th/mm3 MPV 10.5 (7.0-11.0) fL Neut % (Auto) 45.7 (16.0-70.0) % Lymph % (Auto) 31.4 (9.0-44.0) % [place] % (Auto) 15.8 H (0.0-8.0) % Eos % (Auto) 6.5 H (0.0-4.0) % Baso % (Auto) 0.6 (0.0-2.0) % Neut # (Auto) 2.0 (1.8-7.7) th/mm3 Lymph # (Auto) 1.4 (1.0-4.8) th/mm3 [place] # (Auto) 0.7 (0.0-0.9) th/mm3 Eos # (Auto) 0.3 (0.0-0.4) th/mm3 Baso # (Auto) 0.0 (0.0-0.2) th/mm3 WBC Differential . Differential Comment Auto diff final Hematology Comments PT (9.8-11.6) sec INR Ratio APTT (24.3-30.1) sec Sodium (136-145) meq/L Potassium (3.5-5.1) meq/L Chloride (98-107) meq/L Carbon Dioxide (21.0-32.0) meq/L Anion Gap (5-15) meq/L BUN (7-18) mg/dL Creatinine (0.60-1.30) mg/dL Estimated GFR (>89) mL/min POC Glucose 90 99 (68-110) mg/dl Random Glucose (74-106) mg/dL Hemoglobin A1c (4.3-6.0) % Lactic Acid (0.4-2.0) mmol/L Calcium (8.5-10.1) mg/dL Phosphorus (2.5-4.9) mg/dL Magnesium (1.5-2.5) mg/dL Total Bilirubin (0.2-1.0) mg/dL AST (15-37) U/L ALT (12-78) U/L Alkaline Phosphatase (45-117) U/L Total Protein (6.4-8.2) g/dL Albumin (3.4-5.0) g/dL TSH (0.358-3.740) uIU/mL Free T4 (0.76-1.46) ng/dL Urine Color (Yellw/Straw) Urine Clarity (Clear) Urine pH (5.0-8.5) Ur Specific [place] (1.002-1.035) Urine Protein (Neg-Trace) mg/dL Urine Glucose (UA) (Negative) mg/dL Urine Ketones (Negative) mg/dL Urine Occult Blood (Negative) Urine Nitrate (Negative) Urine Bilirubin (Negative) Urine Urobilinogen (Less than 2) mg/dL Ur Leukocyte Esterase (Negative) Urine RBC (0-3) /hpf Urine WBC (0-5) /hpf Hyaline Casts (0-3) /lpf Urine Mucus (Occasional) /lpf Micro UA Comment Ur Microscopic Review Nasal Screen MRSA (PCR) (Negative) 08/29/18 08/29/18 08/29/18 Range/Units 04:08 06:12 11:32 WBC (4.0-11.0) th/mm3 RBC (4.50-5.90) mil/mm3 Hgb (13.0-17.0) gm/dL Hct (39.0-51.0) % MCV (80.0-100.0) fL MCH (27.0-34.0) pg MCHC (32.0-36.0) % RDW (11.6-17.2) % Plt Count (150-450) th/mm3 MPV (7.0-11.0) fL Neut % (Auto) (16.0-70.0) % Lymph % (Auto) (9.0-44.0) % [place] % (Auto) (0.0-8.0) % Eos % (Auto) (0.0-4.0) % Baso % (Auto) (0.0-2.0) % Neut # (Auto) (1.8-7.7) th/mm3 Lymph # (Auto) (1.0-4.8) th/mm3 [place] # (Auto) (0.0-0.9) th/mm3 Eos # (Auto) (0.0-0.4) th/mm3 Baso # (Auto) (0.0-0.2) th/mm3 WBC Differential Differential Comment Hematology Comments PT (9.8-11.6) sec INR Ratio APTT (24.3-30.1) sec Sodium 144 (136-145) meq/L Potassium 3.7 (3.5-5.1) meq/L Chloride 107 (98-107) meq/L Carbon Dioxide 28.8 (21.0-32.0) meq/L Anion Gap 8 (5-15) meq/L BUN 7 (7-18) mg/dL Creatinine 0.78 (0.60-1.30) mg/dL Estimated GFR Greater than 89 (>89) mL/min POC Glucose 101 111 H (68-110) mg/dl Random Glucose 90 (74-106) mg/dL Hemoglobin A1c (4.3-6.0) % Lactic Acid (0.4-2.0) mmol/L Calcium 8.4 L (8.5-10.1) mg/dL Phosphorus 3.7 (2.5-4.9) mg/dL Magnesium 2.5 (1.5-2.5) mg/dL Total Bilirubin 0.2 (0.2-1.0) mg/dL AST 13 L (15-37) U/L ALT 34 (12-78) U/L Alkaline Phosphatase 83 (45-117) U/L Total Protein 7.5 D (6.4-8.2) g/dL Albumin 3.3 L (3.4-5.0) g/dL TSH (0.358-3.740) uIU/mL Free T4 (0.76-1.46) ng/dL Urine Color (Yellw/Straw) Urine Clarity (Clear) Urine pH (5.0-8.5) Ur Specific [place] (1.002-1.035) Urine Protein (Neg-Trace) mg/dL Urine Glucose (UA) (Negative) mg/dL Urine Ketones (Negative) mg/dL Urine Occult Blood (Negative) Urine Nitrate (Negative) Urine Bilirubin (Negative) Urine Urobilinogen (Less than 2) mg/dL Ur Leukocyte Esterase (Negative) Urine RBC (0-3) /hpf Urine WBC (0-5) /hpf Hyaline Casts (0-3) /lpf Urine Mucus (Occasional) /lpf Micro UA Comment Ur Microscopic Review Nasal Screen MRSA (PCR) (Negative) 08/29/18 08/29/18 08/29/18 Range/Units 13:57 16:55 17:32 WBC 3.5 L (4.0-11.0) th/mm3 RBC 4.17 L (4.50-5.90) mil/mm3 Hgb 13.4 (13.0-17.0) gm/dL Hct 38.5 L (39.0-51.0) % MCV 92.3 (80.0-100.0) fL MCH 32.1 (27.0-34.0) pg MCHC 34.7 (32.0-36.0) % RDW 14.0 (11.6-17.2) % Plt Count 198 (150-450) th/mm3 MPV 10.1 (7.0-11.0) fL Neut % (Auto) 44.7 (16.0-70.0) % Lymph % (Auto) 32.8 (9.0-44.0) % [place] % (Auto) 16.1 H (0.0-8.0) % Eos % (Auto) 5.6 H (0.0-4.0) % Baso % (Auto) 0.8 (0.0-2.0) % Neut # (Auto) 1.6 L (1.8-7.7) th/mm3 Lymph # (Auto) 1.1 (1.0-4.8) th/mm3 [place] # (Auto) 0.6 (0.0-0.9) th/mm3 Eos # (Auto) 0.2 (0.0-0.4) th/mm3 Baso # (Auto) 0.0 (0.0-0.2) th/mm3 WBC Differential . Differential Comment Auto diff final Hematology Comments PT (9.8-11.6) sec INR Ratio APTT (24.3-30.1) sec Sodium (136-145) meq/L Potassium (3.5-5.1) meq/L Chloride (98-107) meq/L Carbon Dioxide (21.0-32.0) meq/L Anion Gap (5-15) meq/L BUN (7-18) mg/dL Creatinine (0.60-1.30) mg/dL Estimated GFR (>89) mL/min POC Glucose 87 (68-110) mg/dl Random Glucose (74-106) mg/dL Hemoglobin A1c (4.3-6.0) % Lactic Acid (0.4-2.0) mmol/L Calcium (8.5-10.1) mg/dL Phosphorus (2.5-4.9) mg/dL Magnesium 2.5 (1.5-2.5) mg/dL Total Bilirubin (0.2-1.0) mg/dL AST (15-37) U/L ALT (12-78) U/L Alkaline Phosphatase (45-117) U/L Total Protein (6.4-8.2) g/dL Albumin (3.4-5.0) g/dL TSH (0.358-3.740) uIU/mL Free T4 (0.76-1.46) ng/dL Urine Color (Yellw/Straw) Urine Clarity (Clear) Urine pH (5.0-8.5) Ur Specific [place] (1.002-1.035) Urine Protein (Neg-Trace) mg/dL Urine Glucose (UA) (Negative) mg/dL Urine Ketones (Negative) mg/dL Urine Occult Blood (Negative) Urine Nitrate (Negative) Urine Bilirubin (Negative) Urine Urobilinogen (Less than 2) mg/dL Ur Leukocyte Esterase (Negative) Urine RBC (0-3) /hpf Urine WBC (0-5) /hpf Hyaline Casts (0-3) /lpf Urine Mucus (Occasional) /lpf Micro UA Comment Ur Microscopic Review Nasal Screen MRSA (PCR) (Negative) 08/29/18 08/29/18 08/30/18 Range/Units 17:40 23:48 05:17 WBC (4.0-11.0) th/mm3 RBC (4.50-5.90) mil/mm3 Hgb (13.0-17.0) gm/dL Hct (39.0-51.0) % MCV (80.0-100.0) fL MCH (27.0-34.0) pg MCHC (32.0-36.0) % RDW (11.6-17.2) % Plt Count (150-450) th/mm3 MPV (7.0-11.0) fL Neut % (Auto) (16.0-70.0) % Lymph % (Auto) (9.0-44.0) % [place] % (Auto) (0.0-8.0) % Eos % (Auto) (0.0-4.0) % Baso % (Auto) (0.0-2.0) % Neut # (Auto) (1.8-7.7) th/mm3 Lymph # (Auto) (1.0-4.8) th/mm3 [place] # (Auto) (0.0-0.9) th/mm3 Eos # (Auto) (0.0-0.4) th/mm3 Baso # (Auto) (0.0-0.2) th/mm3 WBC Differential Differential Comment Hematology Comments PT (9.8-11.6) sec INR Ratio APTT (24.3-30.1) sec Sodium (136-145) meq/L Potassium (3.5-5.1) meq/L Chloride (98-107) meq/L Carbon Dioxide (21.0-32.0) meq/L Anion Gap (5-15) meq/L BUN (7-18) mg/dL Creatinine (0.60-1.30) mg/dL Estimated GFR (>89) mL/min POC Glucose 106 102 (68-110) mg/dl Random Glucose (74-106) mg/dL Hemoglobin A1c (4.3-6.0) % Lactic Acid (0.4-2.0) mmol/L Calcium (8.5-10.1) mg/dL Phosphorus (2.5-4.9) mg/dL Magnesium (1.5-2.5) mg/dL Total Bilirubin (0.2-1.0) mg/dL AST (15-37) U/L ALT (12-78) U/L Alkaline Phosphatase (45-117) U/L Total Protein (6.4-8.2) g/dL Albumin (3.4-5.0) g/dL TSH (0.358-3.740) uIU/mL Free T4 (0.76-1.46) ng/dL Urine Color Yellow (Yellw/Straw) Urine Clarity Hazy H (Clear) Urine pH 7.0 (5.0-8.5) Ur Specific [place] 1.024 (1.002-1.035) Urine Protein 30 H (Neg-Trace) mg/dL Urine Glucose (UA) Negative (Negative) mg/dL Urine Ketones Trace H (Negative) mg/dL Urine Occult Blood Negative (Negative) Urine Nitrate Negative (Negative) Urine Bilirubin Negative (Negative) Urine Urobilinogen 2.0 H (Less than 2) mg/dL Ur Leukocyte Esterase Negative (Negative) Urine RBC Less than 1 (0-3) /hpf Urine WBC 1 (0-5) /hpf Hyaline Casts (0-3) /lpf Urine Mucus Few H (Occasional) /lpf Micro UA Comment Ur Microscopic Review Not Reportable Nasal Screen MRSA (PCR) (Negative) 08/30/18 08/30/18 08/30/18 Range/Units 06:05 06:05 13:12 WBC 4.6 (4.0-11.0) th/mm3 RBC 4.37 L (4.50-5.90) mil/mm3 Hgb 13.6 (13.0-17.0) gm/dL Hct 40.9 (39.0-51.0) % MCV 93.7 (80.0-100.0) fL MCH 31.1 (27.0-34.0) pg MCHC 33.2 (32.0-36.0) % RDW 14.1 (11.6-17.2) % Plt Count 202 (150-450) th/mm3 MPV 10.5 (7.0-11.0) fL Neut % (Auto) 56.0 (16.0-70.0) % Lymph % (Auto) 23.5 (9.0-44.0) % [place] % (Auto) 14.6 H (0.0-8.0) % Eos % (Auto) 5.1 H (0.0-4.0) % Baso % (Auto) 0.8 (0.0-2.0) % Neut # (Auto) 2.6 (1.8-7.7) th/mm3 Lymph # (Auto) 1.1 (1.0-4.8) th/mm3 [place] # (Auto) 0.7 (0.0-0.9) th/mm3 Eos # (Auto) 0.2 (0.0-0.4) th/mm3 Baso # (Auto) 0.0 (0.0-0.2) th/mm3 WBC Differential . Differential Comment Auto diff final Hematology Comments PT (9.8-11.6) sec INR Ratio APTT (24.3-30.1) sec Sodium 141 (136-145) meq/L Potassium 4.0 (3.5-5.1) meq/L Chloride 106 (98-107) meq/L Carbon Dioxide 27.2 (21.0-32.0) meq/L Anion Gap 8 (5-15) meq/L BUN 9 (7-18) mg/dL Creatinine 0.96 (0.60-1.30) mg/dL Estimated GFR Greater than 89 (>89) mL/min POC Glucose 82 (68-110) mg/dl Random Glucose 112 H (74-106) mg/dL Hemoglobin A1c (4.3-6.0) % Lactic Acid (0.4-2.0) mmol/L Calcium 8.8 (8.5-10.1) mg/dL Phosphorus 3.0 (2.5-4.9) mg/dL Magnesium (1.5-2.5) mg/dL Total Bilirubin 0.2 (0.2-1.0) mg/dL AST 15 (15-37) U/L ALT 37 (12-78) U/L Alkaline Phosphatase 84 (45-117) U/L Total Protein 7.8 (6.4-8.2) g/dL Albumin 3.5 (3.4-5.0) g/dL TSH (0.358-3.740) uIU/mL Free T4 (0.76-1.46) ng/dL Urine Color (Yellw/Straw) Urine Clarity (Clear) Urine pH (5.0-8.5) Ur Specific [place] (1.002-1.035) Urine Protein (Neg-Trace) mg/dL Urine Glucose (UA) (Negative) mg/dL Urine Ketones (Negative) mg/dL Urine Occult Blood (Negative) Urine Nitrate (Negative) Urine Bilirubin (Negative) Urine Urobilinogen (Less than 2) mg/dL Ur Leukocyte Esterase (Negative) Urine RBC (0-3) /hpf Urine WBC (0-5) /hpf Hyaline Casts (0-3) /lpf Urine Mucus (Occasional) /lpf Micro UA Comment Ur Microscopic Review Nasal Screen MRSA (PCR) (Negative) 08/30/18 08/30/18 08/31/18 Range/Units 17:00 23:11 03:55 WBC 5.9 (4.0-11.0) th/mm3 RBC 4.36 L (4.50-5.90) mil/mm3 Hgb 13.7 (13.0-17.0) gm/dL Hct 40.8 (39.0-51.0) % MCV 93.5 (80.0-100.0) fL MCH 31.4 (27.0-34.0) pg MCHC 33.6 (32.0-36.0) % RDW 14.1 (11.6-17.2) % Plt Count 213 (150-450) th/mm3 MPV 10.5 (7.0-11.0) fL Neut % (Auto) 55.9 (16.0-70.0) % Lymph % (Auto) 27.3 (9.0-44.0) % [place] % (Auto) 13.4 H (0.0-8.0) % Eos % (Auto) 2.9 (0.0-4.0) % Baso % (Auto) 0.5 (0.0-2.0) % Neut # (Auto) 3.3 (1.8-7.7) th/mm3 Lymph # (Auto) 1.6 (1.0-4.8) th/mm3 [place] # (Auto) 0.8 (0.0-0.9) th/mm3 Eos # (Auto) 0.2 (0.0-0.4) th/mm3 Baso # (Auto) 0.0 (0.0-0.2) th/mm3 WBC Differential . Differential Comment Auto diff final Hematology Comments PT (9.8-11.6) sec INR Ratio APTT (24.3-30.1) sec Sodium (136-145) meq/L Potassium (3.5-5.1) meq/L Chloride (98-107) meq/L Carbon Dioxide (21.0-32.0) meq/L Anion Gap (5-15) meq/L BUN (7-18) mg/dL Creatinine (0.60-1.30) mg/dL Estimated GFR (>89) mL/min POC Glucose 79 84 (68-110) mg/dl Random Glucose (74-106) mg/dL Hemoglobin A1c (4.3-6.0) % Lactic Acid (0.4-2.0) mmol/L Calcium (8.5-10.1) mg/dL Phosphorus (2.5-4.9) mg/dL Magnesium (1.5-2.5) mg/dL Total Bilirubin (0.2-1.0) mg/dL AST (15-37) U/L ALT (12-78) U/L Alkaline Phosphatase (45-117) U/L Total Protein (6.4-8.2) g/dL Albumin (3.4-5.0) g/dL TSH (0.358-3.740) uIU/mL Free T4 (0.76-1.46) ng/dL Urine Color (Yellw/Straw) Urine Clarity (Clear) Urine pH (5.0-8.5) Ur Specific [place] (1.002-1.035) Urine Protein (Neg-Trace) mg/dL Urine Glucose (UA) (Negative) mg/dL Urine Ketones (Negative) mg/dL Urine Occult Blood (Negative) Urine Nitrate (Negative) Urine Bilirubin (Negative) Urine Urobilinogen (Less than 2) mg/dL Ur Leukocyte Esterase (Negative) Urine RBC (0-3) /hpf Urine WBC (0-5) /hpf Hyaline Casts (0-3) /lpf Urine Mucus (Occasional) /lpf Micro UA Comment Ur Microscopic Review Nasal Screen MRSA (PCR) (Negative) 08/31/18 08/31/18 08/31/18 Range/Units 03:55 05:19 11:44 WBC (4.0-11.0) th/mm3 RBC (4.50-5.90) mil/mm3 Hgb (13.0-17.0) gm/dL Hct (39.0-51.0) % MCV (80.0-100.0) fL MCH (27.0-34.0) pg MCHC (32.0-36.0) % RDW (11.6-17.2) % Plt Count (150-450) th/mm3 MPV (7.0-11.0) fL Neut % (Auto) (16.0-70.0) % Lymph % (Auto) (9.0-44.0) % [place] % (Auto) (0.0-8.0) % Eos % (Auto) (0.0-4.0) % Baso % (Auto) (0.0-2.0) % Neut # (Auto) (1.8-7.7) th/mm3 Lymph # (Auto) (1.0-4.8) th/mm3 [place] # (Auto) (0.0-0.9) th/mm3 Eos # (Auto) (0.0-0.4) th/mm3 Baso # (Auto) (0.0-0.2) th/mm3 WBC Differential Differential Comment Hematology Comments PT (9.8-11.6) sec INR Ratio APTT (24.3-30.1) sec Sodium 142 (136-145) meq/L Potassium 4.1 (3.5-5.1) meq/L Chloride 107 (98-107) meq/L Carbon Dioxide 27.1 (21.0-32.0) meq/L Anion Gap 8 (5-15) meq/L BUN 10 (7-18) mg/dL Creatinine 0.82 (0.60-1.30) mg/dL Estimated GFR Greater than 89 (>89) mL/min POC Glucose 106 80 (68-110) mg/dl Random Glucose 92 (74-106) mg/dL Hemoglobin A1c (4.3-6.0) % Lactic Acid (0.4-2.0) mmol/L Calcium 8.6 (8.5-10.1) mg/dL Phosphorus 2.9 (2.5-4.9) mg/dL Magnesium 2.2 (1.5-2.5) mg/dL Total Bilirubin 0.2 (0.2-1.0) mg/dL AST 17 (15-37) U/L ALT 38 (12-78) U/L Alkaline Phosphatase 87 (45-117) U/L Total Protein 7.8 (6.4-8.2) g/dL Albumin 3.5 (3.4-5.0) g/dL TSH (0.358-3.740) uIU/mL Free T4 (0.76-1.46) ng/dL Urine Color (Yellw/Straw) Urine Clarity (Clear) Urine pH (5.0-8.5) Ur Specific [place] (1.002-1.035) Urine Protein (Neg-Trace) mg/dL Urine Glucose (UA) (Negative) mg/dL Urine Ketones (Negative) mg/dL Urine Occult Blood (Negative) Urine Nitrate (Negative) Urine Bilirubin (Negative) Urine Urobilinogen (Less than 2) mg/dL Ur Leukocyte Esterase (Negative) Urine RBC (0-3) /hpf Urine WBC (0-5) /hpf Hyaline Casts (0-3) /lpf Urine Mucus (Occasional) /lpf Micro UA Comment Ur Microscopic Review Nasal Screen MRSA (PCR) (Negative) 08/31/18 09/01/18 09/01/18 Range/Units 17:39 00:06 04:30 WBC 4.7 (4.0-11.0) th/mm3 RBC 4.38 L (4.50-5.90) mil/mm3 Hgb 13.9 (13.0-17.0) gm/dL Hct 40.8 (39.0-51.0) % MCV 93.2 (80.0-100.0) fL MCH 31.7 (27.0-34.0) pg MCHC 34.1 (32.0-36.0) % RDW 14.0 (11.6-17.2) % Plt Count 212 (150-450) th/mm3 MPV 10.9 (7.0-11.0) fL Neut % (Auto) 41.9 (16.0-70.0) % Lymph % (Auto) 39.1 (9.0-44.0) % [place] % (Auto) 12.3 H (0.0-8.0) % Eos % (Auto) 6.1 H (0.0-4.0) % Baso % (Auto) 0.6 (0.0-2.0) % Neut # (Auto) 2.0 (1.8-7.7) th/mm3 Lymph # (Auto) 1.8 (1.0-4.8) th/mm3 [place] # (Auto) 0.6 (0.0-0.9) th/mm3 Eos # (Auto) 0.3 (0.0-0.4) th/mm3 Baso # (Auto) 0.0 (0.0-0.2) th/mm3 WBC Differential . Differential Comment Auto diff final Hematology Comments PT (9.8-11.6) sec INR Ratio APTT (24.3-30.1) sec Sodium (136-145) meq/L Potassium (3.5-5.1) meq/L Chloride (98-107) meq/L Carbon Dioxide (21.0-32.0) meq/L Anion Gap (5-15) meq/L BUN (7-18) mg/dL Creatinine (0.60-1.30) mg/dL Estimated GFR (>89) mL/min POC Glucose 81 101 (68-110) mg/dl Random Glucose (74-106) mg/dL Hemoglobin A1c (4.3-6.0) % Lactic Acid (0.4-2.0) mmol/L Calcium (8.5-10.1) mg/dL Phosphorus (2.5-4.9) mg/dL Magnesium (1.5-2.5) mg/dL Total Bilirubin (0.2-1.0) mg/dL AST (15-37) U/L ALT (12-78) U/L Alkaline Phosphatase (45-117) U/L Total Protein (6.4-8.2) g/dL Albumin (3.4-5.0) g/dL TSH (0.358-3.740) uIU/mL Free T4 (0.76-1.46) ng/dL Urine Color (Yellw/Straw) Urine Clarity (Clear) Urine pH (5.0-8.5) Ur Specific [place] (1.002-1.035) Urine Protein (Neg-Trace) mg/dL Urine Glucose (UA) (Negative) mg/dL Urine Ketones (Negative) mg/dL Urine Occult Blood (Negative) Urine Nitrate (Negative) Urine Bilirubin (Negative) Urine Urobilinogen (Less than 2) mg/dL Ur Leukocyte Esterase (Negative) Urine RBC (0-3) /hpf Urine WBC (0-5) /hpf Hyaline Casts (0-3) /lpf Urine Mucus (Occasional) /lpf Micro UA Comment Ur Microscopic Review Nasal Screen MRSA (PCR) (Negative) 09/01/18 09/01/18 09/01/18 Range/Units 05:19 11:21 17:36 WBC (4.0-11.0) th/mm3 RBC (4.50-5.90) mil/mm3 Hgb (13.0-17.0) gm/dL Hct (39.0-51.0) % MCV (80.0-100.0) fL MCH (27.0-34.0) pg MCHC (32.0-36.0) % RDW (11.6-17.2) % Plt Count (150-450) th/mm3 MPV (7.0-11.0) fL Neut % (Auto) (16.0-70.0) % Lymph % (Auto) (9.0-44.0) % [place] % (Auto) (0.0-8.0) % Eos % (Auto) (0.0-4.0) % Baso % (Auto) (0.0-2.0) % Neut # (Auto) (1.8-7.7) th/mm3 Lymph # (Auto) (1.0-4.8) th/mm3 [place] # (Auto) (0.0-0.9) th/mm3 Eos # (Auto) (0.0-0.4) th/mm3 Baso # (Auto) (0.0-0.2) th/mm3 WBC Differential Differential Comment Hematology Comments PT (9.8-11.6) sec INR Ratio APTT (24.3-30.1) sec Sodium (136-145) meq/L Potassium (3.5-5.1) meq/L Chloride (98-107) meq/L Carbon Dioxide (21.0-32.0) meq/L Anion Gap (5-15) meq/L BUN (7-18) mg/dL Creatinine (0.60-1.30) mg/dL Estimated GFR (>89) mL/min POC Glucose 94 105 91 (68-110) mg/dl Random Glucose (74-106) mg/dL Hemoglobin A1c (4.3-6.0) % Lactic Acid (0.4-2.0) mmol/L Calcium (8.5-10.1) mg/dL Phosphorus (2.5-4.9) mg/dL Magnesium (1.5-2.5) mg/dL Total Bilirubin (0.2-1.0) mg/dL AST (15-37) U/L ALT (12-78) U/L Alkaline Phosphatase (45-117) U/L Total Protein (6.4-8.2) g/dL Albumin (3.4-5.0) g/dL TSH (0.358-3.740) uIU/mL Free T4 (0.76-1.46) ng/dL Urine Color (Yellw/Straw) Urine Clarity (Clear) Urine pH (5.0-8.5) Ur Specific [place] (1.002-1.035) Urine Protein (Neg-Trace) mg/dL Urine Glucose (UA) (Negative) mg/dL Urine Ketones (Negative) mg/dL Urine Occult Blood (Negative) Urine Nitrate (Negative) Urine Bilirubin (Negative) Urine Urobilinogen (Less than 2) mg/dL Ur Leukocyte Esterase (Negative) Urine RBC (0-3) /hpf Urine WBC (0-5) /hpf Hyaline Casts (0-3) /lpf Urine Mucus (Occasional) /lpf Micro UA Comment Ur Microscopic Review Nasal Screen MRSA (PCR) (Negative) 09/01/18 09/02/18 09/02/18 Range/Units 23:08 04:00 05:32 WBC 4.8 (4.0-11.0) th/mm3 RBC 4.35 L (4.50-5.90) mil/mm3 Hgb 13.5 (13.0-17.0) gm/dL Hct 40.7 (39.0-51.0) % MCV 93.5 (80.0-100.0) fL MCH 31.1 (27.0-34.0) pg MCHC 33.3 (32.0-36.0) % RDW 13.9 (11.6-17.2) % Plt Count 224 (150-450) th/mm3 MPV 9.7 (7.0-11.0) fL Neut % (Auto) 42.7 (16.0-70.0) % Lymph % (Auto) 38.2 (9.0-44.0) % [place] % (Auto) 13.8 H (0.0-8.0) % Eos % (Auto) 4.6 H (0.0-4.0) % Baso % (Auto) 0.7 (0.0-2.0) % Neut # (Auto) 2.1 (1.8-7.7) th/mm3 Lymph # (Auto) 1.8 (1.0-4.8) th/mm3 [place] # (Auto) 0.7 (0.0-0.9) th/mm3 Eos # (Auto) 0.2 (0.0-0.4) th/mm3 Baso # (Auto) 0.0 (0.0-0.2) th/mm3 WBC Differential . Differential Comment Auto diff final Hematology Comments PT (9.8-11.6) sec INR Ratio APTT (24.3-30.1) sec Sodium (136-145) meq/L Potassium (3.5-5.1) meq/L Chloride (98-107) meq/L Carbon Dioxide (21.0-32.0) meq/L Anion Gap (5-15) meq/L BUN (7-18) mg/dL Creatinine (0.60-1.30) mg/dL Estimated GFR (>89) mL/min POC Glucose 111 H 106 (68-110) mg/dl Random Glucose (74-106) mg/dL Hemoglobin A1c (4.3-6.0) % Lactic Acid (0.4-2.0) mmol/L Calcium (8.5-10.1) mg/dL Phosphorus (2.5-4.9) mg/dL Magnesium (1.5-2.5) mg/dL Total Bilirubin (0.2-1.0) mg/dL AST (15-37) U/L ALT (12-78) U/L Alkaline Phosphatase (45-117) U/L Total Protein (6.4-8.2) g/dL Albumin (3.4-5.0) g/dL TSH (0.358-3.740) uIU/mL Free T4 (0.76-1.46) ng/dL Urine Color (Yellw/Straw) Urine Clarity (Clear) Urine pH (5.0-8.5) Ur Specific [place] (1.002-1.035) Urine Protein (Neg-Trace) mg/dL Urine Glucose (UA) (Negative) mg/dL Urine Ketones (Negative) mg/dL Urine Occult Blood (Negative) Urine Nitrate (Negative) Urine Bilirubin (Negative) Urine Urobilinogen (Less than 2) mg/dL Ur Leukocyte Esterase (Negative) Urine RBC (0-3) /hpf Urine WBC (0-5) /hpf Hyaline Casts (0-3) /lpf Urine Mucus (Occasional) /lpf Micro UA Comment Ur Microscopic Review Nasal Screen MRSA (PCR) (Negative) 09/02/18 09/02/18 09/02/18 Range/Units 12:15 12:56 16:45 WBC (4.0-11.0) th/mm3 RBC (4.50-5.90) mil/mm3 Hgb (13.0-17.0) gm/dL Hct (39.0-51.0) % MCV (80.0-100.0) fL MCH (27.0-34.0) pg MCHC (32.0-36.0) % RDW (11.6-17.2) % Plt Count (150-450) th/mm3 MPV (7.0-11.0) fL Neut % (Auto) (16.0-70.0) % Lymph % (Auto) (9.0-44.0) % [place] % (Auto) (0.0-8.0) % Eos % (Auto) (0.0-4.0) % Baso % (Auto) (0.0-2.0) % Neut # (Auto) (1.8-7.7) th/mm3 Lymph # (Auto) (1.0-4.8) th/mm3 [place] # (Auto) (0.0-0.9) th/mm3 Eos # (Auto) (0.0-0.4) th/mm3 Baso # (Auto) (0.0-0.2) th/mm3 WBC Differential Differential Comment Hematology Comments PT (9.8-11.6) sec INR Ratio APTT (24.3-30.1) sec Sodium (136-145) meq/L Potassium (3.5-5.1) meq/L Chloride (98-107) meq/L Carbon Dioxide (21.0-32.0) meq/L Anion Gap (5-15) meq/L BUN (7-18) mg/dL Creatinine (0.60-1.30) mg/dL Estimated GFR (>89) mL/min POC Glucose 74 81 110 (68-110) mg/dl Random Glucose (74-106) mg/dL Hemoglobin A1c (4.3-6.0) % Lactic Acid (0.4-2.0) mmol/L Calcium (8.5-10.1) mg/dL Phosphorus (2.5-4.9) mg/dL Magnesium (1.5-2.5) mg/dL Total Bilirubin (0.2-1.0) mg/dL AST (15-37) U/L ALT (12-78) U/L Alkaline Phosphatase (45-117) U/L Total Protein (6.4-8.2) g/dL Albumin (3.4-5.0) g/dL TSH (0.358-3.740) uIU/mL Free T4 (0.76-1.46) ng/dL Urine Color (Yellw/Straw) Urine Clarity (Clear) Urine pH (5.0-8.5) Ur Specific [place] (1.002-1.035) Urine Protein (Neg-Trace) mg/dL Urine Glucose (UA) (Negative) mg/dL Urine Ketones (Negative) mg/dL Urine Occult Blood (Negative) Urine Nitrate (Negative) Urine Bilirubin (Negative) Urine Urobilinogen (Less than 2) mg/dL Ur Leukocyte Esterase (Negative) Urine RBC (0-3) /hpf Urine WBC (0-5) /hpf Hyaline Casts (0-3) /lpf Urine Mucus (Occasional) /lpf Micro UA Comment Ur Microscopic Review Nasal Screen MRSA (PCR) (Negative) 09/03/18 09/03/18 09/03/18 Range/Units 05:02 11:48 18:33 WBC (4.0-11.0) th/mm3 RBC (4.50-5.90) mil/mm3 Hgb (13.0-17.0) gm/dL Hct (39.0-51.0) % MCV (80.0-100.0) fL MCH (27.0-34.0) pg MCHC (32.0-36.0) % RDW (11.6-17.2) % Plt Count (150-450) th/mm3 MPV (7.0-11.0) fL Neut % (Auto) (16.0-70.0) % Lymph % (Auto) (9.0-44.0) % [place] % (Auto) (0.0-8.0) % Eos % (Auto) (0.0-4.0) % Baso % (Auto) (0.0-2.0) % Neut # (Auto) (1.8-7.7) th/mm3 Lymph # (Auto) (1.0-4.8) th/mm3 [place] # (Auto) (0.0-0.9) th/mm3 Eos # (Auto) (0.0-0.4) th/mm3 Baso # (Auto) (0.0-0.2) th/mm3 WBC Differential Differential Comment Hematology Comments PT (9.8-11.6) sec INR Ratio APTT (24.3-30.1) sec Sodium (136-145) meq/L Potassium (3.5-5.1) meq/L Chloride (98-107) meq/L Carbon Dioxide (21.0-32.0) meq/L Anion Gap (5-15) meq/L BUN (7-18) mg/dL Creatinine (0.60-1.30) mg/dL Estimated GFR (>89) mL/min POC Glucose 94 116 H 111 H (68-110) mg/dl Random Glucose (74-106) mg/dL Hemoglobin A1c (4.3-6.0) % Lactic Acid (0.4-2.0) mmol/L Calcium (8.5-10.1) mg/dL Phosphorus (2.5-4.9) mg/dL Magnesium (1.5-2.5) mg/dL Total Bilirubin (0.2-1.0) mg/dL AST (15-37) U/L ALT (12-78) U/L Alkaline Phosphatase (45-117) U/L Total Protein (6.4-8.2) g/dL Albumin (3.4-5.0) g/dL TSH (0.358-3.740) uIU/mL Free T4 (0.76-1.46) ng/dL Urine Color (Yellw/Straw) Urine Clarity (Clear) Urine pH (5.0-8.5) Ur Specific [place] (1.002-1.035) Urine Protein (Neg-Trace) mg/dL Urine Glucose (UA) (Negative) mg/dL Urine Ketones (Negative) mg/dL Urine Occult Blood (Negative) Urine Nitrate (Negative) Urine Bilirubin (Negative) Urine Urobilinogen (Less than 2) mg/dL Ur Leukocyte Esterase (Negative) Urine RBC (0-3) /hpf Urine WBC (0-5) /hpf Hyaline Casts (0-3) /lpf Urine Mucus (Occasional) /lpf Micro UA Comment Ur Microscopic Review Nasal Screen MRSA (PCR) (Negative) 09/04/18 09/04/18 09/04/18 Range/Units 01:14 06:29 11:36 WBC (4.0-11.0) th/mm3 RBC (4.50-5.90) mil/mm3 Hgb (13.0-17.0) gm/dL Hct (39.0-51.0) % MCV (80.0-100.0) fL MCH (27.0-34.0) pg MCHC (32.0-36.0) % RDW (11.6-17.2) % Plt Count (150-450) th/mm3 MPV (7.0-11.0) fL Neut % (Auto) (16.0-70.0) % Lymph % (Auto) (9.0-44.0) % [place] % (Auto) (0.0-8.0) % Eos % (Auto) (0.0-4.0) % Baso % (Auto) (0.0-2.0) % Neut # (Auto) (1.8-7.7) th/mm3 Lymph # (Auto) (1.0-4.8) th/mm3 [place] # (Auto) (0.0-0.9) th/mm3 Eos # (Auto) (0.0-0.4) th/mm3 Baso # (Auto) (0.0-0.2) th/mm3 WBC Differential Differential Comment Hematology Comments PT (9.8-11.6) sec INR Ratio APTT (24.3-30.1) sec Sodium (136-145) meq/L Potassium (3.5-5.1) meq/L Chloride (98-107) meq/L Carbon Dioxide (21.0-32.0) meq/L Anion Gap (5-15) meq/L BUN (7-18) mg/dL Creatinine (0.60-1.30) mg/dL Estimated GFR (>89) mL/min POC Glucose 83 113 H 98 (68-110) mg/dl Random Glucose (74-106) mg/dL Hemoglobin A1c (4.3-6.0) % Lactic Acid (0.4-2.0) mmol/L Calcium (8.5-10.1) mg/dL Phosphorus (2.5-4.9) mg/dL Magnesium (1.5-2.5) mg/dL Total Bilirubin (0.2-1.0) mg/dL AST (15-37) U/L ALT (12-78) U/L Alkaline Phosphatase (45-117) U/L Total Protein (6.4-8.2) g/dL Albumin (3.4-5.0) g/dL TSH (0.358-3.740) uIU/mL Free T4 (0.76-1.46) ng/dL Urine Color (Yellw/Straw) Urine Clarity (Clear) Urine pH (5.0-8.5) Ur Specific [place] (1.002-1.035) Urine Protein (Neg-Trace) mg/dL Urine Glucose (UA) (Negative) mg/dL Urine Ketones (Negative) mg/dL Urine Occult Blood (Negative) Urine Nitrate (Negative) Urine Bilirubin (Negative) Urine Urobilinogen (Less than 2) mg/dL Ur Leukocyte Esterase (Negative) Urine RBC (0-3) /hpf Urine WBC (0-5) /hpf Hyaline Casts (0-3) /lpf Urine Mucus (Occasional) /lpf Micro UA Comment Ur Microscopic Review Nasal Screen MRSA (PCR) (Negative) 09/04/18 09/05/18 09/05/18 Range/Units 17:48 00:08 06:27 WBC (4.0-11.0) th/mm3 RBC (4.50-5.90) mil/mm3 Hgb (13.0-17.0) gm/dL Hct (39.0-51.0) % MCV (80.0-100.0) fL MCH (27.0-34.0) pg MCHC (32.0-36.0) % RDW (11.6-17.2) % Plt Count (150-450) th/mm3 MPV (7.0-11.0) fL Neut % (Auto) (16.0-70.0) % Lymph % (Auto) (9.0-44.0) % [place] % (Auto) (0.0-8.0) % Eos % (Auto) (0.0-4.0) % Baso % (Auto) (0.0-2.0) % Neut # (Auto) (1.8-7.7) th/mm3 Lymph # (Auto) (1.0-4.8) th/mm3 [place] # (Auto) (0.0-0.9) th/mm3 Eos # (Auto) (0.0-0.4) th/mm3 Baso # (Auto) (0.0-0.2) th/mm3 WBC Differential Differential Comment Hematology Comments PT (9.8-11.6) sec INR Ratio APTT (24.3-30.1) sec Sodium (136-145) meq/L Potassium (3.5-5.1) meq/L Chloride (98-107) meq/L Carbon Dioxide (21.0-32.0) meq/L Anion Gap (5-15) meq/L BUN (7-18) mg/dL Creatinine (0.60-1.30) mg/dL Estimated GFR (>89) mL/min POC Glucose 84 107 148 H (68-110) mg/dl Random Glucose (74-106) mg/dL Hemoglobin A1c (4.3-6.0) % Lactic Acid (0.4-2.0) mmol/L Calcium (8.5-10.1) mg/dL Phosphorus (2.5-4.9) mg/dL Magnesium (1.5-2.5) mg/dL Total Bilirubin (0.2-1.0) mg/dL AST (15-37) U/L ALT (12-78) U/L Alkaline Phosphatase (45-117) U/L Total Protein (6.4-8.2) g/dL Albumin (3.4-5.0) g/dL TSH (0.358-3.740) uIU/mL Free T4 (0.76-1.46) ng/dL Urine Color (Yellw/Straw) Urine Clarity (Clear) Urine pH (5.0-8.5) Ur Specific [place] (1.002-1.035) Urine Protein (Neg-Trace) mg/dL Urine Glucose (UA) (Negative) mg/dL Urine Ketones (Negative) mg/dL Urine Occult Blood (Negative) Urine Nitrate (Negative) Urine Bilirubin (Negative) Urine Urobilinogen (Less than 2) mg/dL Ur Leukocyte Esterase (Negative) Urine RBC (0-3) /hpf Urine WBC (0-5) /hpf Hyaline Casts (0-3) /lpf Urine Mucus (Occasional) /lpf Micro UA Comment Ur Microscopic Review Nasal Screen MRSA (PCR) (Negative) 09/05/18 09/05/18 Range/Units 11:58 17:17 WBC (4.0-11.0) th/mm3 RBC (4.50-5.90) mil/mm3 Hgb (13.0-17.0) gm/dL Hct (39.0-51.0) % MCV (80.0-100.0) fL MCH (27.0-34.0) pg MCHC (32.0-36.0) % RDW (11.6-17.2) % Plt Count (150-450) th/mm3 MPV (7.0-11.0) fL Neut % (Auto) (16.0-70.0) % Lymph % (Auto) (9.0-44.0) % [place] % (Auto) (0.0-8.0) % Eos % (Auto) (0.0-4.0) % Baso % (Auto) (0.0-2.0) % Neut # (Auto) (1.8-7.7) th/mm3 Lymph # (Auto) (1.0-4.8) th/mm3 [place] # (Auto) (0.0-0.9) th/mm3 Eos # (Auto) (0.0-0.4) th/mm3 Baso # (Auto) (0.0-0.2) th/mm3 WBC Differential Differential Comment Hematology Comments PT (9.8-11.6) sec INR Ratio APTT (24.3-30.1) sec Sodium (136-145) meq/L Potassium (3.5-5.1) meq/L Chloride (98-107) meq/L Carbon Dioxide (21.0-32.0) meq/L Anion Gap (5-15) meq/L BUN (7-18) mg/dL Creatinine (0.60-1.30) mg/dL Estimated GFR (>89) mL/min POC Glucose 91 97 (68-110) mg/dl Random Glucose (74-106) mg/dL Hemoglobin A1c (4.3-6.0) % Lactic Acid (0.4-2.0) mmol/L Calcium (8.5-10.1) mg/dL Phosphorus (2.5-4.9) mg/dL Magnesium (1.5-2.5) mg/dL Total Bilirubin (0.2-1.0) mg/dL AST (15-37) U/L ALT (12-78) U/L Alkaline Phosphatase (45-117) U/L Total Protein (6.4-8.2) g/dL Albumin (3.4-5.0) g/dL TSH (0.358-3.740) uIU/mL Free T4 (0.76-1.46) ng/dL Urine Color (Yellw/Straw) Urine Clarity (Clear) Urine pH (5.0-8.5) Ur Specific [place] (1.002-1.035) Urine Protein (Neg-Trace) mg/dL Urine Glucose (UA) (Negative) mg/dL Urine Ketones (Negative) mg/dL Urine Occult Blood (Negative) Urine Nitrate (Negative) Urine Bilirubin (Negative) Urine Urobilinogen (Less than 2) mg/dL Ur Leukocyte Esterase (Negative) Urine RBC (0-3) /hpf Urine WBC (0-5) /hpf Hyaline Casts (0-3) /lpf Urine Mucus (Occasional) /lpf Micro UA Comment Ur Microscopic Review Nasal Screen MRSA (PCR) (Negative) Imaging Data Radiologist's impression: Chest X-Ray 08/21/18 22:44 CONCLUSION: Minimal density in the left midlung. Abdomen X-Ray 08/23/18 00:00 CONCLUSION: 1. GJ tube projects over the right abdomen. Contrast is identified within the gastric lumen. 2. Nonobstructive bowel gas pattern. No pneumoperitoneum. Gastrostomy Tube Placement 08/24/18 00:00 CONCLUSION: 1. Uncomplicated gastrojejunostomy tube replacement as above. Central Venous Line 08/25/18 00:00 CONCLUSION: 1. Uncomplicated central venous Power PICC line placement. 2. The PICC line can be used immediately. 3. Sutures can be removed in 10 days to 2 weeks. Chest X-Ray 08/26/18 00:00 CONCLUSION: Mild consolidation or atelectasis at the bases. Chest X-Ray 08/29/18 16:11 CONCLUSION: Mild basilar airspace disease slightly improved from August 26. Support apparatus unchanged. Discharge Plan Discharge Disposition Patient Disposition: 30 Still Patient Physicians Team ED Provider: Guille Kohli Primary Care Provider: Britton Samuels Attending Provider: Johny Lyon Other Providers: Pina Cagle ; Huber Marin ; [facility],Agency Status ED Status: Left Department Discharge Information Discharge Date/Time: 08/22/18 00:00
[2018-08-21 23:24] LABS: Bilirubin,Urine Negative (Negative); Clarity,Urine Hazy (Clear); Color,Urine Yellow (Yellw/Straw); Glucose,Urine (UA) Negative (Negative); Hyaline Casts,Urine 4 /lpf (0-3); Leukocyte Esterase,Urine Negative (Negative); Mucus,Urine Few /lpf (Occasional); Nitrite,Urine Negative (Negative); Specific Gravity,Urine 1.015 (1.002-1.035)
--- NOTE | 2018-08-21 23:30 | XR ---
EXAM DATE: 08/21/2018 10:44 PM EDT AGE/SEX: 33 years / Male INDICATIONS: Fever. CLINICAL DATA: This is the patient's initial encounter. Patient reports that signs and symptoms have been present for 1 day and indicates a pain score of Nonresponsive. MEDICAL/SURGICAL HISTORY: Gastroesophageal reflux disease. Hypertension. Diabetes. Anoxic br ain injury. Diabetes. DVT. Pancreatitis. Seizures. . Tracheostomy. Peg tube. COMPARISON: [facility] [place], CHEST 1V SINGLE AP, 07/04/2018. . FINDINGS: A single AP view of the chest demonstrates minimal left mid lung density. Heart normal in size. Trach eostomy tube unchanged.. The cardiomediastinal contours are unremarkable. Osseous structures are in tact. CONCLUSION: Minimal density in the left midlung. Electronically signed by: Frederick Maynard MD 08/21/2018 11:29 PM EDT
--- NOTE | 2018-08-21 23:37 | P.HPCC ---
History of Present Illness Primary Care Physician: Britton Samuels MD History of Present Illness: 33-year-old male presents from a nursing facility. He has a trach and PEG, he is bedbound and he seems to have constantly contracted extremities. He is well- known to the [employer] system. He is coming in tonight because he was coughing through his trach, and brown fluid was coming out possibly coffee-ground emesis as well as he was diaphoretic and febrile, possibly septic. The HPI is limited due to the fact that he is nonverbal and seems to be altered possibly due to sepsis at this time. Review of Systems unobtainable due to mental condition PMFSH - History History Provided By: Family Member - Medical History Medical History: Medical History (Last Reviewed 08/21/18 @ 23:50 by Nancy Sommer RN) Tracheostomy dependent (Acute) GERD (gastroesophageal reflux disease) (Acute) Pancreatitis (Acute) Diabetes mellitus (Acute) Dyslipidemia (Acute) HTN (hypertension) (Acute) Seizure (Acute) DVT (deep venous thrombosis) (Acute) Anoxic brain damage (Acute) - Surgical History Surgical History: Surgical History (Last Reviewed 08/21/18 @ 23:50 by Nancy Sommer RN) PEG (percutaneous endoscopic gastrostomy) status (Acute) - Family History Family History: Family History (Last Updated 07/19/18 @ 13:56 by Nannette Josue MD) Other No pertinent family history - Tobacco History Second Hand Smoke Exposure: No Smoking Status: Never smoker - Alcohol History How Often Do You Have a Drink Containing Alcohol: Never - Substance Use History Substance History: No History of Abuse Medications and Allergies Active Medications: Active Medications Vancomycin/Sodium Chloride (Vancomycin Inj) 1 gm in 200 mls @ 200 mls/hr IV.SIG ONCE ONE Stop: 08/21/18 23:44 Vancomycin HCl 1,000 mg/ (Sodium Chloride) 250 mls @ 250 mls/hr IV.SIG SPORTS MEDIA [facility] Current Medications Acetaminophen (Tylenol) 650 mg PO Q6H PRN PRN Reason: PAIN 1-5 AND/OR FEVER >101F Al Hydroxide/Mg Hydroxide (Milk Of Magnesia Liq) 30 ml PO Q12H PRN PRN Reason: Mild Constipation Albuterol (Duoneb Neb (Prn)) 1 ampul NEB Q2HR NEB PRN PRN Reason: WHEEZING Albuterol (Duoneb Neb (Prn)) 1 ampul NEB Q4HR NEB PRN PRN Reason: WHEEZING Apixaban (Eliquis) 5 mg G-TUBE BID [facility] Baclofen (Lioresal) 20 mg G-TUBE Q8H [facility] Bisacodyl (Dulcolax Supp) 10 mg RECTAL DAILY PRN PRN Reason: SEVERE CONSITIPATION Chlorhexidine Gluconate (Chlorhexidine 2% Cloth) 3 pack TOPICAL DAILY@0400 [facility] Stop: 08/27/18 03:59 Chlorhexidine Gluconate (Chlorhexidine 2% Cloth) 3 pack TOPICAL DAILY@0400 PRN PRN Reason: Extra cloth needed Stop: 08/27/18 03:59 Enoxaparin Sodium (Lovenox Inj) 40 mg SQ Q24H [facility] Famotidine (Pepcid Pf Inj) 20 mg IV.PUSH Q12HR [facility] Glycopyrrolate (Robinul) 1 mg G-TUBE Q8H PRN Hydromorphone HCl (Dilaudid Pf Inj) 1 mg IV.PUSH Q4H PRN PRN Reason: PAIN SCALE 6 TO 10 Hyoscyamine (Levsin) 0.25 mg G-TUBE Q4H PRN PRN Reason: Secretions Vancomycin HCl 1,000 mg/ (Sodium Chloride) 250 mls @ 250 mls/hr IV.SIG SPORTS MEDIA [facility] Last Admin: 08/22/18 00:11 Dose: 250 mls/hr Sodium Chloride (Ns Inj) 1,000 mls @ 154 mls/hr IV.CONT .Q6H30M [facility] Piperacillin/Tazobactam/Dextrose (Zosyn 4.5 Gm Premix) 4.5 gm in 100 mls @ 200 mls/hr IV.SIG Q6H [facility] Lactulose (Lactulose Liq) 30 ml PO DAILY PRN PRN Reason: SEVERE CONSITIPATION Levetiracetam (Keppra Liq) 1,000 mg PO Q12H [facility] Loratadine (Claritin) 10 mg G-TUBE DAILY [facility] Lorazepam (Ativan) 0.5 mg G-TUBE Q4H PRN PRN Reason: Anxiety/seizures Non-Formulary Medication (Diazepam [Diazepam]) 5 mg IM Q8HR PRN PRN Reason: Muscle Spasm Ondansetron HCl (Zofran Inj) 4 mg IV.PUSH Q6H PRN PRN Reason: NAUSEA OR VOMITING Oxycodone HCl (Roxicodone) 5 mg G-TUBE Q6HR PRN PRN Reason: Pain Pharmacy Profile Note (Vancomycin Consult Pharmacy) 1 each OTHER UNSCH PRN PRN Reason: VANCOMYCIN CONSULT Senna/Docusate Sodium (Shala-Colace) 1 tab PO BID [facility] Sennosides (Senokot) 17.2 mg PO Q12H PRN PRN Reason: Moderate Constipation Sodium Chloride (Ns Flush) 2 ml IV.FLUSH BID [facility] Sodium Chloride (Ns Flush) 2 ml IV.FLUSH PRN PRN PRN Reason: FLUSH AFTER USING IV ACCESS Allergies Allergy/AdvReac Type Severity Reaction Status Date / Time haloperidol AdvReac Severe Seizures Verified 06/09/18 09:58 *MDRO Multi-Drug Resistant AdvReac Unknown Dry Mucus Uncoded 06/09/18 09:58 Organism Membranes Home Medications Medication Instructions Recorded Confirmed Type apixaban [Eliquis] 5 mg FEEDING TUBE BID 05/22/18 08/21/18 History glycopyrrolate 1 mg FEEDING TUBE Q8H PRN 05/22/18 08/21/18 History hyoscyamine sulfate [Levsin] 0.25 mg FEEDING TUBE Q4H PRN 05/22/18 08/21/18 History levetiracetam 1,000 mg FEEDING TUBE Q12H 05/22/18 08/21/18 History loratadine [Claritin] 10 mg FEEDING TUBE DAILY 05/22/18 08/21/18 History baclofen 20 mg FEEDING TUBE Q8H 08/21/18 08/21/18 History diazepam 5 mg IM Q8HR PRN 08/21/18 08/21/18 History lorazepam 0.5 mg FEEDING TUBE DAILY 08/21/18 08/21/18 History lorazepam 1 mg IM Q6H PRN 08/21/18 08/21/18 History lorazepam [Ativan] 0.5 mg FEEDING TUBE Q4H PRN 08/21/18 08/21/18 History metoprolol tartrate 25 mg FEEDING TUBE Q8H PRN 08/21/18 08/21/18 History oxycodone 5 mg FEEDING TUBE Q6HR PRN 08/21/18 08/21/18 History Results - Labs CBC & Chem 7: 08/22/18 00:25 08/21/18 23:00 Labs: Urine 08/21/18 Range/Units 23:00 Urine Color Yellow (Yellw/Straw) Urine Clarity Hazy H (Clear) Urine pH 6.0 (5.0-8.5) Ur Specific [place] 1.015 (1.002-1.035) Urine Protein Negative (Neg-Trace) mg/dL Urine Glucose (UA) Negative (Negative) mg/dL - Imaging Impressions Chest X-Ray 08/21/18 22:44 CONCLUSION: Minimal density in the left midlung. Exam - Constitutional moderate distress - Routine HEENT Exam Head: Present: atraumatic Eye: Present: PERRL, normal accommodation ENT: Present: mucous membranes dry - Routine Neck Exam Present: supple. Absent: JVD, carotid bruit - Routine Respiratory Exam Present: rhonchi, crackles. Absent: accessory muscle use, stridor, wheezes - Routine Cardiovascular Exam Present: RRR, S1, S2 - Routine Abdominal Exam Present: soft, normoactive bowel sounds. Absent: tenderness, distended - Routine Extremities Exam Absent: cyanosis - Routine Skin Exam Present: intact, dry. Absent: cyanosis - Routine Neurological Exam Present: altered mental status Septic Shock Reassessment Septic shock perfusion: reassessment completed Caprini VTE Risk Assessment Caprini VTE Risk Assessment: Moderate/High Risk (score >= 2) Caprini Risk Assessment Model: Point Value = 1 Point Value = 2 Point Value = 3 Point Value = 5 Age 41-60 Minor surgery BMI > 25 kg/m2 Swollen legs Varicose veins or History of unexplained or recurrent spontaneous Oral contraceptives or hormone replacement Sepsis (< 1 month) Serious lung disease, including pneumonia (< 1 month) Abnormal pulmonary function Acute myocardial infarction Congestive heart failure (< 1 month) History of inflammatory bowel disease Medical patient at bed rest Age 61-74 Arthroscopic surgery Major open surgery (> 45 min) Laparoscopic surgery (> 45 min) Malignancy Confined to bed (> 72 hours) Immobilizing plaster cast Central venous access Age >= 75 History of VTE Family history of VTE Factor V Leiden Prothrombin [id number] Lupus anticoagulant Anticardiolipin antibodies Elevated serum homocysteine Heparin-induced thrombocytopenia Other congenital or acquired thrombophilia Stroke (< 1 month) Elective arthroplasty Hip, pelvis, or leg fracture Acute spinal cord injury (< 1 month) Prophylaxis Regimen: Total Risk Factor Score Risk Level Prophylaxis Regimen 0-1 Low Early ambulation 2 Moderate Order ONE of the following: *Sequential Compression Device (SCD) *Heparin 5000 units SQ BID 3-4 Higher Order ONE of the following medications: *Heparin 5000 units SQ TID *Enoxaparin/Lovenox 40 mg SQ daily (WT < 150 kg, CrCl > 30 mL/min) *Enoxaparin/Lovenox 30 mg SQ daily (WT < 150 kg, CrCl > 10-29 mL/min) *Enoxaparin/Lovenox 30 mg SQ BID (WT < 150 kg, CrCl > 30 mL/min) AND/OR *Sequential Compression Device (SCD) 5 or more Highest Order ONE of the following medications: *Heparin 5000 units SQ TID (Preferred with Epidurals) *Enoxaparin/Lovenox 40 mg SQ daily (WT < 150 kg, CrCl > 30 mL/min) *Enoxaparin/Lovenox 30 mg SQ daily (WT < 150 kg, CrCl > 10-29 mL/min) *Enoxaparin/Lovenox 30 mg SQ BID (WT < 150 kg, CrCl > 30 mL/min) AND *Sequential Compression Device (SCD) Assessment and Plan - Assessment and Plan Plan: Sepsis/SIRS -Broad-spectrum antibiotic -IV fluid hydration -Panculture -De-escalate per sensitivity Coffee-ground emesis -Protonix IV twice daily -Monitor H&H -GI consultation Encephalopathy with contractures -Baclofen -Diazepam as needed Seizure disorder -Keppra Diabetes mellitus -Insulin sliding scale DVT GI prophylaxis -Eliquis -Teds SCDs -Protonix IV twice daily 35 minutes of critical care
[2018-08-21 23:43] LABS: Alanine Aminotransferase 68 U/L (12-78); Albumin 4.5 g/dL (3.4-5.0); Anion Gap 15 meq/L (5-15); Aspartate Aminotransferase 29 U/L (15-37); Blood Urea Nitrogen 13 mg/dL (7-18); Calcium 9.4 mg/dL (8.5-10.1); Carbon Dioxide 21.5 meq/L (21.0-32.0); Chloride 103 meq/L (98-107); Glomerular Filtration Rate 72 mL/min (>89); Glucose,Random 173 mg/dL (74-106); Magnesium 2.2 mg/dL (1.5-2.5); Potassium 4.3 meq/L (3.5-5.1); Sodium 139 meq/L (136-145)
[2018-08-21] MEDS ORDERED: Vancomycin Inj 1,000 MG in Sodium Chlor 0.9% Inj 250 ML IV.SIG SCH (23:45)
[2018-08-21 23:46] LABS: Alkaline Phosphatase 93 U/L (45-117); Total Protein 9.3 g/dL (6.4-8.2)
[2018-08-21] MEDS ORDERED: Acetaminophen 650 MG Supp RECTAL ONE (23:49)
[2018-08-21] MEDS ORDERED: Sod Chloride 0.9% Inj 1,000 ML IV.SIG ONE (23:49)
[2018-08-21] MEDS ORDERED: Bisacodyl 10 MG Supp RECTAL PRN (23:50)
[2018-08-21] MEDS ORDERED: Vancomycin Consult Pharmacy OTHER ONE (23:50)
[2018-08-22] MEDS ORDERED: Enoxaparin Inj 40 MG/0.4 ML Syringe SQ SCH
[2018-08-22] MEDS ORDERED: DIAZEPAM 5 MG IM PRN (00:04)
[2018-08-22] MEDS ORDERED: Vancomycin Consult Pharmacy OTHER PRN (00:24)
[2018-08-22] MEDS ORDERED: diazePAM 5 MG Tablet PO PRN (01:03)
[2018-08-22] MEDS ORDERED: Sodium Phosphate Inj 30 MMOL in Sodium Chlor 0.9% Inj 250 ML IV.SIG PRN (01:10)
[2018-08-22] MEDS ORDERED: Magnesium Oxide 400 MG Tablet PO PRN (01:10)
[2018-08-22] MEDS ORDERED: Magnesium Sulfate Inj 4 GM in Sodium Chlor 0.9% Inj 92 ML IV.SIG PRN (01:10)
[2018-08-22] MEDS ORDERED: Magnesium Sulfate Inj 2 GM in Sodium Chlor 0.9% Inj 96 ML IV.SIG PRN (01:10)
[2018-08-22] MEDS ORDERED: Potassium Phosphate Inj 30 MMOL in Sodium Chlor 0.9% Inj 250 ML IV.SIG PRN (01:10)
[2018-08-22] MEDS ORDERED: Potassium Chlor 20 mEq Premix 20 MEQ/100 ML PIGGYBACK IV.SIG PRN (01:10)
[2018-08-22] MEDS ORDERED: Potassium Phosphate 500 MG Soluble Tablet PO PRN ×2 (01:10)
[2018-08-22] MEDS ORDERED: Potassium Chloride 25 MEQ Effervescent Tablet PO PRN (01:10)
[2018-08-22] MEDS ORDERED: Potassium Chlor 40 mEq Premix 40 MEQ/100 ML PIGGYBACK IV.SIG PRN ×2 (01:10)
[2018-08-22] MEDS: Sod Chloride 0.9% Inj 1,000 ML IV.CONT SCH ×4 (01:29→23:25)
[2018-08-22] MEDS: LORazepam 0.5 MG Tablet G-TUBE PRN ×2 (01:30→06:51)
[2018-08-22 01:45] LABS: Baso # (Auto) 0.1 th/mm3 (0.0-0.2); Baso % (Auto) 0.4 % (0.0-2.0); Eos % (Auto) 0.2 % (0.0-4.0); Hemoglobin 15.5 gm/dL (13.0-17.0); Lymph # (Auto) 0.9 th/mm3 (1.0-4.8); Lymph % (Auto) 6.7 % (9.0-44.0); Mean Corpuscular HGB Conc 35.3 % (32.0-36.0); Mean Corpuscular Hemoglobin 32.2 pg (27.0-34.0); Mean Corpuscular Volume 91.3 fL (80.0-100.0); Mean Platelet Volume 10.2 fL (7.0-11.0); Mono # (Auto) 1.1 th/mm3 (0.0-0.9); Mono % (Auto) 8.4 % (0.0-8.0); Neut # (Auto) 11.5 th/mm3 (1.8-7.7); Neut % (Auto) 84.3 % (16.0-70.0); Platelet Count 266 th/mm3 (150-450); Red Blood Count 4.82 mil/mm3 (4.50-5.90); Red Cell Distribution Width 14.3 % (11.6-17.2); White Blood Count 13.6 th/mm3 (4.0-11.0)
[2018-08-22] MEDS: Chlorhexidine Gluconate 2% 1 Pack (2 Cloths) TOPICAL SCH (03:25)
[2018-08-22] MEDS ORDERED: Chlorhexidine Gluconate 2% 1 Pack (2 Cloths) TOPICAL PRN (04:00)
[2018-08-22] MEDS ORDERED: Dextrose 50% in Water 50 ML Vial IV.PUSH PRN (05:31)
[2018-08-22] MEDS ORDERED: Piperacil/Tazo 4.5 GM Premix 4.5 GM/100 ML BAG IV.SIG SCH (06:00)
[2018-08-22] MEDS: Pantoprazole Inj 40 MG Vial IV.PUSH SCH ×2 (06:38→17:00)
[2018-08-22] MEDS: Insulin NovoLOG Aspart Correctional Sugar Inj SQ SCH ×3 (06:44→19:20)
[2018-08-22] MEDS ORDERED: Famotidine PF Inj 20 MG/2 ML Vial IV.PUSH SCH (09:00)
--- NOTE | 2018-08-22 09:21 | P.CONID ---
History of Present Illness Service: Infectious disease Consult date: 08/22/18 Requesting Physician: Perfecto Mills Reason for Consult: Evaluate patient with sepsis Primary Care Provider: Britton Samuels MD History of Present Illness: Patient seen and examined. Records reviewed. Previous admissions reviewed. Patient unable to give any history. Patient is a 33-year-old male, a [facility] resident, in a chronic vegetative state, has a trach in place, and PEG, brought into the hospital after he was noted to be coughing up some brown fluid from his tracheostomy. It was felt that it could possibly be coffee-ground emesis. He was also diaphoretic and febrile. In the ED he had a temperature of 102.8. He was initially hypotensive which improved with fluid resuscitation. Chest x-ray showed minimal infiltrate on the left side. His creatinine was elevated at 1.4. White count 13,000. Lactic acid was 8. Patient was admitted as sepsis. Infectious disease consultation has been requested to evaluate the patient. Patient has had multiple admissions to the hospital for similar complaints. He has had infections with multidrug-resistant organisms including MDR Pseudomonas , ESBL positive organisms. Review of Systems unobtainable due to mental condition Constitutional: Reports fever(s) PMFSH - History History Provided By: Family Member - Medical History Medical History: Medical History (Last Updated 08/22/18 @ 09:14 by Pina Cagle MD) Tracheostomy dependent (Acute) GERD (gastroesophageal reflux disease) (Acute) Pancreatitis (Acute) Diabetes mellitus (Acute) Dyslipidemia (Acute) HTN (hypertension) (Acute) Seizure (Acute) DVT (deep venous thrombosis) (Acute) Anoxic brain damage (Acute) MDRO (multiple drug resistant organisms) resistance Multiple drug resistant organism (MDRO) culture positive - Surgical History Surgical History: Surgical History (Last Reviewed 08/22/18 @ 09:14 by Pina Cagle MD) PEG (percutaneous endoscopic gastrostomy) status (Acute) - Family History Family History: Family History (Last Reviewed 08/22/18 @ 09:14 by Pina Cagle MD) Other No pertinent family history - Tobacco History Second Hand Smoke Exposure: No Smoking Status: Never smoker - Alcohol History How Often Do You Have a Drink Containing Alcohol: Never - Substance Use History Substance History: No History of Abuse - Travel History Recent Travel in the [facility] Within the Last 8 Weeks: No Recent Travel Out of the Country Within the Last 8 Weeks: No - Immunization History Tetanus Immunization: Unsure Medications and Allergies Active Medications: Active Medications Acetaminophen (Tylenol) 650 mg PO Q6H PRN PRN Reason: PAIN 1-5 AND/OR FEVER >101F Al Hydroxide/Mg Hydroxide (Milk Of Tammy [place]) 30 ml PO Q12H PRN PRN Reason: Mild Constipation Albuterol (Duoneb Neb (Prn)) 1 ampul NEB Q2HR NEB PRN PRN Reason: WHEEZING Apixaban (Eliquis) 5 mg G-TUBE BID [facility] Baclofen (Lioresal) 20 mg G-TUBE Q8H [facility] Last Admin: 08/22/18 05:20 Dose: 20 mg Bisacodyl (Dulcolax Supp) 10 mg RECTAL DAILY PRN PRN Reason: SEVERE CONSITIPATION Chlorhexidine Gluconate (Chlorhexidine 2% Cloth) 3 pack TOPICAL DAILY@0400 [facility] Stop: 08/27/18 03:59 Last Admin: 08/22/18 03:25 Dose: 3 pack Chlorhexidine Gluconate (Chlorhexidine 2% Cloth) 3 pack TOPICAL DAILY@0400 PRN PRN Reason: Extra cloth needed Stop: 08/27/18 03:59 Dextrose (D50w Vial) 50 ml IV.PUSH UNSCH PRN PRN Reason: PER HYPOGLYCEMIA PROTOCOL Diazepam (Valium) 5 mg PO Q8H PRN PRN Reason: MUSCLE SPASM Glucagon (Glucagon Inj) 1 mg OTHER PRN PRN PRN Reason: for Hypoglycemia Protocol Glycopyrrolate (Robinul) 1 mg G-TUBE Q8H PRN PRN Reason: SECRETIONS Hydromorphone HCl (Dilaudid Pf Inj) 1 mg IV.PUSH Q4H PRN PRN Reason: SEE LABEL COMMENTS Sodium Chloride (Ns Inj) 1,000 mls @ 154 mls/hr IV.CONT .Q6H30M [facility] Last Admin: 08/22/18 01:29 Dose: 154 mls/hr Piperacillin/Tazobactam/Dextrose (Zosyn 4.5 Gm Premix) 4.5 gm in 100 mls @ 200 mls/hr IV.SIG Q6H [facility] Last Infusion: 08/22/18 06:24 Dose: Infused Magnesium Sulfate 4 gm/ Sodium (Chloride) 100 mls @ 50 mls/hr IV.SIG UNSCH PRN PRN Reason: For Magnesium 0.9 - 1.1 mg/dL Magnesium Sulfate 2 gm/ Sodium (Chloride) 100 mls @ 50 mls/hr IV.SIG UNSCH PRN PRN Reason: For Magnesium 1.2 - 1.6 mg/dL Potassium Chloride (Kcl 40 Meq Premix Inj) 40 meq in 100 mls @ 25 mls/hr IV.SIG Q2H PRN PRN Reason: For Potassium 2.8 - 3.2 mEq/L Potassium Chloride (Kcl 40 Meq Premix Inj) 40 meq in 100 mls @ 25 mls/hr IV.SIG UNSCH PRN PRN Reason: For Potassium 3.3 - 3.5 mEq/L Potassium Chloride (Kcl 20 Meq Premix Inj) 20 meq in 100 mls @ 50 mls/hr IV.SIG Q2H PRN PRN Reason: For Potassium 2.8 - 3.2 mEq/L Potassium Phosphate 30 mmol/ (Sodium Chloride) 260 mls @ 42 mls/hr IV.SIG UNSCH PRN PRN Reason: SEE LABEL COMMENTS Sodium Phosphate 30 mmol/ (Sodium Chloride) 260 mls @ 42 mls/hr IV.SIG UNSCH PRN PRN Reason: For Phosphorus < 2.5 mg/dL Potassium Chloride (Kcl 20 Meq Premix Inj) 20 meq in 100 mls @ 50 mls/hr IV.SIG Q2H PRN PRN Reason: For Potassium 3.3 - 3.5 mEq/L Insulin Aspart (Novolog Insulin Correctional Sugar Inj) 0 unit SQ Q6HR [facility]; Protocol Last Admin: 08/22/18 06:44 Dose: Not Given Lactulose (Lactulose Liq) 30 ml PO DAILY PRN PRN Reason: SEVERE CONSITIPATION Levetiracetam (Keppra Liq) 1,000 mg PO Q12H [facility] Loratadine (Claritin) 10 mg G-TUBE DAILY [facility] Lorazepam (Ativan) 0.5 mg G-TUBE Q4H PRN PRN Reason: Anxiety/seizures Last Admin: 08/22/18 06:51 Dose: 0.5 mg Lorazepam (Ativan Inj) 1 mg IV.PUSH Q4H PRN PRN Reason: HEART RATE > 130 Magnesium Oxide (Mag-Ox) 800 mg PO UNSCH PRN PRN Reason: For Magnesium 1.2 - 1.6 mg/dL Ondansetron HCl (Zofran Inj) 4 mg IV.PUSH Q6H PRN PRN Reason: NAUSEA OR VOMITING Oxycodone HCl (Roxicodone) 5 mg G-TUBE Q6HR PRN PRN Reason: PAIN SCALE 6 TO 10 Pantoprazole Sodium (Protonix Inj) 40 mg IV.PUSH Q12H [facility] Last Admin: 08/22/18 06:38 Dose: 40 mg Pharmacy Profile Note (Vancomycin Consult Pharmacy) 1 each OTHER UNSCH PRN PRN Reason: VANCOMYCIN CONSULT Potassium Bicarb/Potassium Chloride (K-Lyte Cl Eff) 50 meq PO UNSCH PRN PRN Reason: For Potassium 3.3 - 3.5 mEq/L Potassium Phosphate (K-Phos Original) 2,000 mg PO Q4H PRN PRN Reason: Phosphorus Less Than 2.5 mg/dL Potassium Phosphate (K-Phos Original) 2,000 mg PO UNSCH PRN PRN Reason: SEE LABEL COMMENTS Senna/Docusate Sodium (Shala-Colace) 1 tab PO BID [facility] Sennosides (Senokot) 17.2 mg PO Q12H PRN PRN Reason: Moderate Constipation Sodium Chloride (Ns Flush) 2 ml IV.FLUSH BID [facility] Sodium Chloride (Ns Flush) 2 ml IV.FLUSH PRN PRN PRN Reason: FLUSH AFTER USING IV ACCESS Allergies Allergy/AdvReac Type Severity Reaction Status Date / Time haloperidol AdvReac Severe Seizures Verified 06/09/18 09:58 *MDRO Multi-Drug Resistant AdvReac Unknown Dry Mucus Uncoded 06/09/18 09:58 Organism Membranes Home Medications Medication Instructions Recorded Confirmed Type apixaban [Eliquis] 5 mg FEEDING TUBE BID 05/22/18 08/21/18 History glycopyrrolate 1 mg FEEDING TUBE Q8H PRN 05/22/18 08/21/18 History hyoscyamine sulfate [Levsin] 0.25 mg FEEDING TUBE Q4H PRN 05/22/18 08/21/18 History levetiracetam 1,000 mg FEEDING TUBE Q12H 05/22/18 08/21/18 History loratadine [Claritin] 10 mg FEEDING TUBE DAILY 05/22/18 08/21/18 History baclofen 20 mg FEEDING TUBE Q8H 08/21/18 08/21/18 History diazepam 5 mg IM Q8HR PRN 08/21/18 08/21/18 History lorazepam 0.5 mg FEEDING TUBE DAILY 08/21/18 08/21/18 History lorazepam 1 mg IM Q6H PRN 08/21/18 08/21/18 History lorazepam [Ativan] 0.5 mg FEEDING TUBE Q4H PRN 08/21/18 08/21/18 History metoprolol tartrate 25 mg FEEDING TUBE Q8H PRN 08/21/18 08/21/18 History oxycodone 5 mg FEEDING TUBE Q6HR PRN 08/21/18 08/21/18 History Exam Vital signs: Vital Signs 08/21/18 23:15 08/21/18 23:54 08/22/18 00:16 Temperature 102.8 F H 101.4 F H 100.8 F H Pulse Rate 155 H 115 H 107 H Respiratory Rate 30 H 20 24 Blood Pressure 148/68 H 138/62 Pulse Oximetry 100 08/22/18 01:10 08/22/18 01:15 08/22/18 01:16 Temperature 100.0 F H Pulse Rate 135 H Respiratory Rate 47 H Blood Pressure 146/83 H Pulse Oximetry 99 100 100 08/22/18 01:30 08/22/18 02:00 08/22/18 02:30 Temperature 100.0 F H 100.0 F H 99.9 F H Pulse Rate 97 H 93 H 88 Respiratory Rate 27 H 26 H 22 Blood Pressure 121/57 L 118/57 L 96/53 L Pulse Oximetry 99 100 100 08/22/18 03:00 08/22/18 03:30 08/22/18 04:00 Temperature 99.5 F 99.1 F 98.8 F Pulse Rate 79 77 69 Respiratory Rate 23 21 20 Blood Pressure 90/49 L 90/50 L 87/52 L Pulse Oximetry 100 100 100 08/22/18 04:30 08/22/18 05:00 08/22/18 05:31 Temperature 98.6 F 98.8 F 99.1 F Pulse Rate 62 85 116 H Respiratory Rate 21 19 27 H Blood Pressure 94/55 L 120/72 143/79 H Pulse Oximetry 100 100 95 08/22/18 06:00 08/22/18 08:00 Temperature 99.1 F Pulse Rate 81 Respiratory Rate 23 Blood Pressure 116/60 Pulse Oximetry 100 100 Intake & Output 08/21/18 08/22/18 08/22/18 18:59 06:59 18:59 Intake Total 1636 / 1636 Output Total 450 / 450 Balance 1186 / 1186 Weight 63 kg Intake: IV 1400 / 1400 Zosyn 3.375 GM Premix 50 ML @ 50 / 50 100 mls/hr IV.SIG ONCE ONE Rx#: [id number] Zosyn 4.5 GM Premix 4.5 gm In 100 / 100 100 ml @ 200 mls/hr IV.SIG Q6H [facility] Rx#:[id number] NS Inj 1,000 ML @ Wide Open IV. 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 He is on T-piece. Has thick light yellow/beige secretions from his trach SKIN: Warm and dry. No generalized rash, no ecchymoses and no evidence of embolic lesions. HEAD: Atraumatic. Normocephalic. No temporal wasting, or tenderness. EYES: Barton conjunctiva. No petechia or hemorrhage. No scleral icterus. No injection or drainage. EARS, NOSE AND THROAT: Nose without bleeding or purulent nasal discharge. Mucous membranes pink and moist. Unable to get good exam of his oropharynx NECK: Tracheostomy site looks ok. Has thick light yellow/marie secretions from his trach. CARDIOVASCULAR: Regular rate and rhythm. No murmurs, rubs or gallops heard RESPIRATORY: Decreased breath sounds charisse wayne at the bases ABDOMEN: Soft, nondistended. PEG site looks ok. Bowel sounds present and normoactive. EXTREMITIES: No clubbing, cyanosis. Both feet plantar flexed. Well perfused and warm. NEUROLOGICAL: Eyes remain closed, some withdrawal of feet when stimulated. No interaction. Some spasticity of all extremities PSYCHIATRIC: Unable to assess : cath in place, urine looks clear LINE: No evidence of infection Results - Labs CBC & Chem 7: 08/22/18 00:25 08/21/18 23:00 Labs: Laboratory Results - last 24 hr 08/21/18 08/21/18 08/21/18 23:00 23:00 23:00 WBC RBC Hgb Hct MCV MCH MCHC RDW Plt Count MPV Neut % (Auto) Lymph % (Auto) [place] % (Auto) Eos % (Auto) Baso % (Auto) Neut # (Auto) Lymph # (Auto) [place] # (Auto) Eos # (Auto) Baso # (Auto) WBC Differential Differential Comment Sodium 139 Potassium 4.3 Chloride 103 Carbon Dioxide 21.5 Anion Gap 15 BUN 13 Creatinine 1.40 H Estimated GFR 72 L POC Glucose Random Glucose 173 H Lactic Acid 8.6 H* Calcium 9.4 Magnesium 2.2 Total Bilirubin 0.2 AST 29 ALT 68 Alkaline Phosphatase 93 Total Protein 9.3 H Albumin 4.5 Urine Color Yellow Urine Clarity Hazy H Urine pH 6.0 Ur Specific [place] 1.015 Urine Protein Negative Urine Glucose (UA) Negative Urine Ketones Negative Urine Occult Blood Negative Urine Nitrate Negative Urine Bilirubin Negative Urine Urobilinogen 2.0 H Ur Leukocyte Esterase Negative Urine RBC 1 Urine WBC 1 Hyaline Casts 4 Urine Mucus Few H Micro UA Comment Cath-culture not ind Ur Microscopic Review Not Reportable Nasal Screen MRSA (PCR) 08/22/18 08/22/18 08/22/18 00:13 00:25 01:05 WBC 13.6 H RBC 4.82 Hgb 15.5 Hct 44.0 MCV 91.3 MCH 32.2 MCHC 35.3 RDW 14.3 Plt Count 266 MPV 10.2 Neut % (Auto) 84.3 H Lymph % (Auto) 6.7 L [place] % (Auto) 8.4 H Eos % (Auto) 0.2 Baso % (Auto) 0.4 Neut # (Auto) 11.5 H Lymph # (Auto) 0.9 L [place] # (Auto) 1.1 H Eos # (Auto) 0.0 Baso # (Auto) 0.1 WBC Differential . Differential Comment Auto diff final Sodium Potassium Chloride Carbon Dioxide Anion Gap BUN Creatinine Estimated GFR POC Glucose 113 H Random Glucose Lactic Acid Calcium Magnesium Total Bilirubin AST ALT Alkaline Phosphatase Total Protein Albumin Urine Color Urine Clarity Urine pH Ur Specific [place] Urine Protein Urine Glucose (UA) Urine Ketones Urine Occult Blood Urine Nitrate Urine Bilirubin Urine Urobilinogen Ur Leukocyte Esterase Urine RBC Urine WBC Hyaline Casts Urine Mucus Micro UA Comment Ur Microscopic Review Nasal Screen MRSA (PCR) Not detected 08/22/18 08/22/18 02:49 06:36 WBC RBC Hgb Hct MCV MCH MCHC RDW Plt Count MPV Neut % (Auto) Lymph % (Auto) [place] % (Auto) Eos % (Auto) Baso % (Auto) Neut # (Auto) Lymph # (Auto) [place] # (Auto) Eos # (Auto) Baso # (Auto) WBC Differential Differential Comment Sodium Potassium Chloride Carbon Dioxide Anion Gap BUN Creatinine Estimated GFR POC Glucose 118 H Random Glucose Lactic Acid 1.8 Calcium Magnesium Total Bilirubin AST ALT Alkaline Phosphatase Total Protein Albumin Urine Color Urine Clarity Urine pH Ur Specific [place] Urine Protein Urine Glucose (UA) Urine Ketones Urine Occult Blood Urine Nitrate Urine Bilirubin Urine Urobilinogen Ur Leukocyte Esterase Urine RBC Urine WBC Hyaline Casts Urine Mucus Micro UA Comment Ur Microscopic Review Nasal Screen MRSA (PCR) - Imaging Impressions Chest X-Ray 08/21/18 22:44 CONCLUSION: Minimal density in the left midlung. Assessment and Plan - Plan Impression Sepsis on presentation (fever, tachycardia, leukocytosis, elevated lactic acid, low BP) - [place] resident - likely HCAP vs mucus plugging Hx MDRO infections in the past Chronic vegetative state Renal insufficiency due to sepsis Recommendation IV Zerbaxa - to cover MDRO GNR organisms Zyvox for MRSA Stop vanco and Zosyn Get sputum G/S C/S Follow C/S and adjust Abx Monitor progress Will determine course of Abx once work-up completed I will follow along with you Thank you for this consultation
[2018-08-22] MEDS: Loratadine 10 MG Tablet G-TUBE SCH (09:52)
[2018-08-22] MEDS: Senna/Docusate Sodium 8.6/50 MG Tablet PO SCH ×2 (09:53→21:30)
--- NOTE | 2018-08-22 10:06 | P.PNCC ---
Subjective Subjective Remarks/Hospital Course: 08/21: 33-year-old male presents from a nursing facility. He has a trach and PEG, he is bedbound and he seems to have constantly contracted extremities. He is well-known to the [facility]. He is coming in tonight because he was coughing through his trach, and brown fluid was coming out possibly coffee- ground emesis as well as he was diaphoretic and febrile, possibly septic. The HPI is limited due to the fact that he is nonverbal and seems to be altered possibly due to sepsis at this time. 08/22: Remains encephalopathic. On trach collar. Tolerating PEG feeds. Objective Vital Signs / I&O: Vital Signs 08/21/18 23:15 08/21/18 23:54 08/22/18 00:16 Temperature 102.8 F H 101.4 F H 100.8 F H Pulse Rate 155 H 115 H 107 H Respiratory Rate 30 H 20 24 Blood Pressure 148/68 H 138/62 Pulse Oximetry 100 08/22/18 01:10 08/22/18 01:15 08/22/18 01:16 Temperature 100.0 F H Pulse Rate 135 H Respiratory Rate 47 H Blood Pressure 146/83 H Pulse Oximetry 99 100 100 08/22/18 01:30 08/22/18 02:00 08/22/18 02:30 Temperature 100.0 F H 100.0 F H 99.9 F H Pulse Rate 97 H 93 H 88 Respiratory Rate 27 H 26 H 22 Blood Pressure 121/57 L 118/57 L 96/53 L Pulse Oximetry 99 100 100 08/22/18 03:00 08/22/18 03:30 08/22/18 04:00 Temperature 99.5 F 99.1 F 98.8 F Pulse Rate 79 77 69 Respiratory Rate 23 21 20 Blood Pressure 90/49 L 90/50 L 87/52 L Pulse Oximetry 100 100 100 08/22/18 04:30 08/22/18 05:00 08/22/18 05:31 Temperature 98.6 F 98.8 F 99.1 F Pulse Rate 62 85 116 H Respiratory Rate 21 19 27 H Blood Pressure 94/55 L 120/72 143/79 H Pulse Oximetry 100 100 95 08/22/18 06:00 08/22/18 08:00 08/22/18 09:39 Temperature 99.1 F Pulse Rate 81 Respiratory Rate 23 Blood Pressure 116/60 Pulse Oximetry 100 100 100 Intake & Output 08/21/18 08/22/18 08/22/18 18:59 06:59 18:59 Intake Total 1636 / 1636 1000 / 1000 Output Total 450 / 450 Balance 1186 / 1186 1000 / 1000 Weight 63 kg Intake: IV 1400 / 1400 1000 / 1000 NS Inj 1,000 ML @ 154 mls/hr IV 1000 / 1000 .CONT .Q6H30M [facility] Rx#:[id number] Zosyn 3.375 GM Premix 50 ML @ 50 / 50 100 mls/hr IV.SIG ONCE ONE Rx#: [id number] Zosyn 4.5 GM Premix 4.5 gm In 100 / 100 100 ml @ 200 mls/hr IV.SIG Q6H [facility] Rx#:[id number] NS Inj 1,000 ML @ Wide Open IV. 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 [facility] Rx#:[id number] Tube Feeding 136 / 136 Tube Irrigant 100 / 100 Output: Urine Amount (Catheter) 450 / 450 Indwelling Temp Sensing 450 / 450 Catheter Other: Weight On Admission 67.4 kg Result Diagrams: 08/22/18 00:25 08/21/18 23:00 Other Results: Laboratory Results - last 24 hr 08/21/18 08/21/18 08/21/18 23:00 23:00 23:00 WBC RBC Hgb Hct MCV MCH MCHC RDW Plt Count MPV Neut % (Auto) Lymph % (Auto) [place] % (Auto) Eos % (Auto) Baso % (Auto) Neut # (Auto) Lymph # (Auto) [place] # (Auto) Eos # (Auto) Baso # (Auto) WBC Differential Differential Comment Sodium 139 Potassium 4.3 Chloride 103 Carbon Dioxide 21.5 Anion Gap 15 BUN 13 Creatinine 1.40 H Estimated GFR 72 L POC Glucose Random Glucose 173 H Lactic Acid 8.6 H* Calcium 9.4 Magnesium 2.2 Total Bilirubin 0.2 AST 29 ALT 68 Alkaline Phosphatase 93 Total Protein 9.3 H Albumin 4.5 Urine Color Yellow Urine Clarity Hazy H Urine pH 6.0 Ur Specific [place] 1.015 Urine Protein Negative Urine Glucose (UA) Negative Urine Ketones Negative Urine Occult Blood Negative Urine Nitrate Negative Urine Bilirubin Negative Urine Urobilinogen 2.0 H Ur Leukocyte Esterase Negative Urine RBC 1 Urine WBC 1 Hyaline Casts 4 Urine Mucus Few H Micro UA Comment Cath-culture not ind Ur Microscopic Review Not Reportable Nasal Screen MRSA (PCR) 08/22/18 08/22/18 08/22/18 00:13 00:25 01:05 WBC 13.6 H RBC 4.82 Hgb 15.5 Hct 44.0 MCV 91.3 MCH 32.2 MCHC 35.3 RDW 14.3 Plt Count 266 MPV 10.2 Neut % (Auto) 84.3 H Lymph % (Auto) 6.7 L [place] % (Auto) 8.4 H Eos % (Auto) 0.2 Baso % (Auto) 0.4 Neut # (Auto) 11.5 H Lymph # (Auto) 0.9 L [place] # (Auto) 1.1 H Eos # (Auto) 0.0 Baso # (Auto) 0.1 WBC Differential . Differential Comment Auto diff final Sodium Potassium Chloride Carbon Dioxide Anion Gap BUN Creatinine Estimated GFR POC Glucose 113 H Random Glucose Lactic Acid Calcium Magnesium Total Bilirubin AST ALT Alkaline Phosphatase Total Protein Albumin Urine Color Urine Clarity Urine pH Ur Specific [place] Urine Protein Urine Glucose (UA) Urine Ketones Urine Occult Blood Urine Nitrate Urine Bilirubin Urine Urobilinogen Ur Leukocyte Esterase Urine RBC Urine WBC Hyaline Casts Urine Mucus Micro UA Comment Ur Microscopic Review Nasal Screen MRSA (PCR) Not detected 08/22/18 08/22/18 02:49 06:36 WBC RBC Hgb Hct MCV MCH MCHC RDW Plt Count MPV Neut % (Auto) Lymph % (Auto) [place] % (Auto) Eos % (Auto) Baso % (Auto) Neut # (Auto) Lymph # (Auto) [place] # (Auto) Eos # (Auto) Baso # (Auto) WBC Differential Differential Comment Sodium Potassium Chloride Carbon Dioxide Anion Gap BUN Creatinine Estimated GFR POC Glucose 118 H Random Glucose Lactic Acid 1.8 Calcium Magnesium Total Bilirubin AST ALT Alkaline Phosphatase Total Protein Albumin Urine Color Urine Clarity Urine pH Ur Specific [place] Urine Protein Urine Glucose (UA) Urine Ketones Urine Occult Blood Urine Nitrate Urine Bilirubin Urine Urobilinogen Ur Leukocyte Esterase Urine RBC Urine WBC Hyaline Casts Urine Mucus Micro UA Comment Ur Microscopic Review Nasal Screen MRSA (PCR) Imaging: Impressions Chest X-Ray 08/21/18 22:44 CONCLUSION: Minimal density in the left midlung. Objective Remarks: - Constitutional moderate distress - Routine HEENT Exam Head: Present: atraumatic Eye: Present: PERRL, normal accommodation ENT: Present: mucous membranes dry - Routine Neck Exam Present: supple. Absent: JVD, carotid bruit - Routine Respiratory Exam Present: rhonchi, crackles. Absent: accessory muscle use, stridor, wheezes - Routine Cardiovascular Exam Present: RRR, S1, S2 - Routine Abdominal Exam Present: soft, normoactive bowel sounds. Absent: tenderness, distended - Routine Extremities Exam Absent: cyanosis - Routine Skin Exam Present: intact, dry. Absent: cyanosis - Routine Neurological Exam Present: altered mental status Assessment and Plan - Assessment and Plan Plan: Sepsis/SIRS -Broad-spectrum antibiotic -IV fluid hydration -Panculture -De-escalate per sensitivity Coffee-ground emesis -Protonix IV twice daily -Monitor H&H -GI consultation Encephalopathy with contractures -Baclofen -Diazepam as needed Seizure disorder -[place]ianora Diabetes mellitus -Insulin sliding scale DVT GI prophylaxis -Eliquis -Teds SCDs -Protonix IV twice daily
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
[2018-08-22] MEDS: CEFTOLOZANE IV.SIG SCH ×2 (11:53→19:44)
[2018-08-22] MEDS: SODIUM CHLOR 0.9% IV.SIG SCH ×2 (11:53→19:44)
[2018-08-22] MEDS: TAZOBACTAM IV.SIG SCH ×2 (11:53→19:44)
[2018-08-22 12:55] LABS: Activated Partial Thrombo Time 23.7 sec (24.3-30.1); INR 1.2 Ratio; Prothrombin Time 11.8 sec (9.8-11.6)
[2018-08-22 13:14] LABS: Alanine Aminotransferase 51 U/L (12-78); Albumin 3.5 g/dL (3.4-5.0); Alkaline Phosphatase 74 U/L (45-117); Anion Gap 5 meq/L (5-15); Aspartate Aminotransferase 26 U/L (15-37); Blood Urea Nitrogen 12 mg/dL (7-18); Calcium 8.2 mg/dL (8.5-10.1); Carbon Dioxide 25.8 meq/L (21.0-32.0); Chloride 112 meq/L (98-107); Glomerular Filtration Rate Greater Than 89 mL/min (>89); Glucose,Random 112 mg/dL (74-106); Magnesium 2.4 mg/dL (1.5-2.5); Phosphorus 2.7 mg/dL (2.5-4.9); Potassium 3.7 meq/L (3.5-5.1); Sodium 143 meq/L (136-145); Total Protein 7.2 g/dL (6.4-8.2)
--- NOTE | 2018-08-22 13:18 | P.DIET ---
Nutritional Evaluation Type of nutrition evaluation: initial Nutrition consult regarding: Tube Feeding Objective - Diagnosis Fever, Sepsis, coffee ground emesis - Objective [place] body weight: 70 kg (based on HT from June and May admissions) % IBW: 90 Body Weight Used for Calculations: Actual (63kg) Energy Needs - Lower Range (kCal/kg): 28 Energy Needs - Upper Range (kCal/kg): 33 Lower Limit kCal/kg (kCals): 1,764 Upper Limit kCal/kg (kCals): 2,079 Lower Limit Protein Factor (Grams per Kg): 1.2 Upper Limit Protein Factor (Grams per Kg): 1.5 Lower Protein Needs (Protein): 76 Upper Protein Needs (Protein): 95 Dietitian Reviewed in Medical Record: Curent medications, Intake & Output, Labs , Medical history, Tube feeding Diet Order: TF only Objective Comments: PMH: Anoxic brain damage, pt with trach and PEG, nonverbal. Assessment Assessment: Pt at nutritional risk r/t dx. Pt with multiple past admissions, known to this clinician. Pt admitted with sepsis, coffee ground emesis from SNF. Pt on trach collar, tolerating PEG feeds, nonverbal. TF Jevity 1.5 with goal rate of 55ml/ hr will provide 1980kcals, 84gms protein and 1003mls free water. This is adequate to meet pt's nutritional needs at this time. Will monitor TF tolerance , clinical course. Recommendations: TF Jevity 1.5 with goal rate 55ml/hr Dietitian to Monitor: Lab values, Intake & Output, Tube feeding tolerance, Weight change, Medical course
[2018-08-22 16:52] LABS: Hematocrit 38.6 % (39.0-51.0); Hemoglobin 13.5 gm/dL (13.0-17.0); Mean Corpuscular HGB Conc 35.1 % (32.0-36.0); Mean Corpuscular Hemoglobin 32.2 pg (27.0-34.0); Mean Corpuscular Volume 91.9 fL (80.0-100.0); Platelet Count 148 th/mm3 (150-450); Red Cell Distribution Width 14.1 % (11.6-17.2); White Blood Count 5.8 th/mm3 (4.0-11.0)
--- NOTE | 2018-08-22 22:12 | ECG ---
Date Performed: 08/22/2018 Time Performed: 00:10:38 PTAGE: 33 years EKG: SINUS TACHYCARDIA POSSIBLE LEFT ATRIAL ENLARGEMENT BORDERLINE LEFT AXIS DEVIATION ABNORMAL RHYTHM ECG Since the PREVIOUS TRACING , no significant change noted DOCTOR: Consuelo Rodas Interpretating Date/Time 08/22/2018 22:10:40
[2018-08-23] MEDS: Insulin NovoLOG Aspart Correctional Sugar Inj SQ SCH ×4 (00:54→17:10)
[2018-08-23] MEDS ORDERED: fentaNYL Citrate Inj 100 MCG/2 ML Ampul IV.PUSH ONE (01:18)
[2018-08-23] MEDS: Sod Chloride 0.9% Inj 1,000 ML IV.CONT SCH ×4 (02:26→17:10)
--- NOTE | 2018-08-23 02:37 | P.PCN ---
Date of procedure: 08/23/18 Pre-op diagnosis: Sepsis Post-op diagnosis: same Procedure: Central line placement A time-out was completed verifying correct patient, procedure, site, positioning , and special equipment if applicable. The patient was placed in a dependent position appropriate for central line placement based on the vein to be cannulated. The patients right groin was prepped and draped in sterile fashion. 1% Lidocaine was used to anesthetize the surrounding skin area. A triple lumen 9-[place] Cordis catheter was introduced into the the common femoral vein using the Seldinger technique and under ultrasound guidance. The catheter was threaded smoothly over the guide wire and appropriate blood return was obtained. Each lumen of the catheter was evacuated of air and flushed with sterile saline. The catheter was then sutured in place to the skin and a sterile dressing applied. Perfusion to the extremity distal to the point of catheter insertion was checked and found to be adequate. Estimated Blood Loss: 1ml The patient tolerated the procedure well and there were no complications.
[2018-08-23] MEDS: Chlorhexidine Gluconate 2% 1 Pack (2 Cloths) TOPICAL SCH (03:45)
[2018-08-23] MEDS: SODIUM CHLOR 0.9% IV.SIG SCH ×3 (04:04→18:04)
[2018-08-23] MEDS: CEFTOLOZANE IV.SIG SCH ×3 (04:04→18:04)
[2018-08-23] MEDS: TAZOBACTAM IV.SIG SCH ×3 (04:04→18:04)
[2018-08-23 04:53] LABS: Baso % (Auto) 0.4 % (0.0-2.0); Eos # (Auto) 0.1 th/mm3 (0.0-0.4); Eos % (Auto) 2.4 % (0.0-4.0); Hematocrit 34.9 % (39.0-51.0); Hemoglobin 11.7 gm/dL (13.0-17.0); Lymph # (Auto) 1.2 th/mm3 (1.0-4.8); Lymph % (Auto) 19.6 % (9.0-44.0); Mean Corpuscular HGB Conc 33.5 % (32.0-36.0); Mean Corpuscular Hemoglobin 31.6 pg (27.0-34.0); Mean Corpuscular Volume 94.4 fL (80.0-100.0); Mean Platelet Volume 10.2 fL (7.0-11.0); Mono # (Auto) 0.6 th/mm3 (0.0-0.9); Mono % (Auto) 10.5 % (0.0-8.0); Neut % (Auto) 67.1 % (16.0-70.0); Platelet Count 153 th/mm3 (150-450); Red Blood Count 3.69 mil/mm3 (4.50-5.90); Red Cell Distribution Width 14.2 % (11.6-17.2); White Blood Count 5.9 th/mm3 (4.0-11.0)
[2018-08-23 05:19] LABS: Anion Gap 6 meq/L (5-15); Aspartate Aminotransferase 26 U/L (15-37); Blood Urea Nitrogen 5 mg/dL (7-18); Carbon Dioxide 26.7 meq/L (21.0-32.0); Chloride 110 meq/L (98-107); Glomerular Filtration Rate Greater Than 89 mL/min (>89); Glucose,Random 129 mg/dL (74-106); Potassium 3.9 meq/L (3.5-5.1); Sodium 143 meq/L (136-145)
[2018-08-23 05:22] LABS: Alanine Aminotransferase 43 U/L (12-78); Alkaline Phosphatase 68 U/L (45-117); Total Protein 6.3 g/dL (6.4-8.2)
[2018-08-23] MEDS: Senna/Docusate Sodium 8.6/50 MG Tablet PO SCH ×3 (06:00→21:33)
[2018-08-23] MEDS: Pantoprazole Inj 40 MG Vial IV.PUSH SCH ×2 (06:15→17:10)
[2018-08-23] MEDS: Loratadine 10 MG Tablet G-TUBE SCH (08:56)
--- NOTE | 2018-08-23 10:10 | P.PNID ---
Subjective Remarks: Patient is a 33-year-old male, a residential resident, in a chronic vegetative state, has a trach in place, and PEG, brought into the hospital after he was noted to be coughing up some brown fluid from his tracheostomy. It was felt that it could possibly be coffee-ground emesis. He was also diaphoretic and febrile. In the ED he had a temperature of 102.8. He was initially hypotensive which improved with fluid resuscitation. Chest x-ray showed minimal infiltrate on the left side. His creatinine was elevated at 1.4. White count 13,000. Lactic acid was 8. Patient was admitted as sepsis. Infectious disease consultation has been requested to evaluate the patient. Patient has had multiple admissions to the hospital for similar complaints. He has had infections with multidrug-resistant organisms including MDR Pseudomonas , ESBL positive organisms. Notes reviewed D/W RN Temps 100.8 BP ok On T-piece Has a lot of oral secretions, drooling Has central line in R groin WBC now normal C/S pending Antibiotics: Zerbaxa Zyvox Lines: R Groin central line Past Medical History: Tracheostomy dependent (Acute) GERD (gastroesophageal reflux disease) (Acute) Pancreatitis (Acute) Diabetes mellitus (Acute) Dyslipidemia (Acute) HTN (hypertension) (Acute) Seizure (Acute) DVT (deep venous thrombosis) (Acute) Anoxic brain damage (Acute) MDRO (multiple drug resistant organisms) resistance Multiple drug resistant organism (MDRO) culture positive S/P PEG Allergies/Adverse Reactions: Allergies haloperidol Adverse Reaction (Severe, Verified 06/09/18 09:58) Seizures *MDRO Multi-Drug Resistant Organism Adverse Reaction (Unknown, Uncoded 06/09/18 09:58) Dry Mucus Membranes MRSA (sputum) - 04/25/16 & 05/23/16 MRSA PCR Screen POSITIVE - 04/25/2016 ESBL+E.Coli (blood-05/22/16) Objective Vital Signs 08/22/18 10:30 08/22/18 11:00 08/22/18 11:30 Temperature Pulse Rate 78 80 75 Respiratory Rate 20 22 21 Blood Pressure 112/66 106/62 108/59 L Pulse Oximetry 100 100 98 08/22/18 12:00 08/22/18 12:30 08/22/18 13:00 Temperature Pulse Rate 74 83 73 Respiratory Rate 19 23 22 Blood Pressure 109/63 121/77 115/68 Pulse Oximetry 100 100 100 08/22/18 13:30 08/22/18 14:00 08/22/18 14:31 Temperature Pulse Rate 62 75 72 Respiratory Rate 21 23 25 H Blood Pressure 101/57 L 120/72 139/51 L Pulse Oximetry 100 100 100 08/22/18 15:00 08/22/18 15:01 08/22/18 15:30 Temperature Pulse Rate 59 L 59 L 73 Respiratory Rate 20 20 22 Blood Pressure 99/53 L 88/59 L Pulse Oximetry 100 100 100 08/22/18 16:00 08/22/18 16:01 08/22/18 16:30 Temperature Pulse Rate 117 H 120 H 88 Respiratory Rate 30 H 32 H 23 Blood Pressure 155/71 H 114/57 L Pulse Oximetry 98 99 95 08/22/18 17:00 08/22/18 17:30 08/22/18 18:00 Temperature Pulse Rate 91 H 80 66 Respiratory Rate 0 L 27 H 24 Blood Pressure 121/64 111/64 101/57 L Pulse Oximetry 98 99 100 08/22/18 18:30 08/22/18 19:00 08/22/18 19:30 Temperature Pulse Rate 72 60 71 Respiratory Rate 22 22 25 H Blood Pressure 112/62 103/57 L 98/61 L Pulse Oximetry 100 100 100 08/22/18 20:00 08/22/18 21:00 08/22/18 21:01 Temperature 99 F Pulse Rate 73 121 H 121 H Respiratory Rate 17 40 H 35 H Blood Pressure 127/73 138/82 138/82 Pulse Oximetry 100 97 100 08/22/18 21:02 08/22/18 21:30 08/22/18 22:00 Temperature Pulse Rate 103 H 99 H 90 Respiratory Rate 26 H 33 H 30 H Blood Pressure 128/63 117/56 L Pulse Oximetry 100 100 100 08/22/18 22:30 08/22/18 23:00 08/22/18 23:30 Temperature Pulse Rate 85 82 77 Respiratory Rate 6 L 21 16 Blood Pressure 118/66 119/68 115/67 Pulse Oximetry 100 100 99 08/23/18 00:00 08/23/18 00:30 08/23/18 01:00 Temperature Pulse Rate 74 63 59 L Respiratory Rate 16 11 L 8 L Blood Pressure 99/55 L 93/55 L 101/58 L Pulse Oximetry 99 100 100 08/23/18 01:13 08/23/18 01:31 08/23/18 02:00 Temperature Pulse Rate 99 H 71 Respiratory Rate 29 H 22 Blood Pressure 132/70 110/63 Pulse Oximetry 100 100 100 08/23/18 02:30 08/23/18 03:00 08/23/18 03:30 Temperature Pulse Rate 67 57 L 55 L Respiratory Rate 20 19 18 Blood Pressure 103/61 82/57 L 84/47 L Pulse Oximetry 100 100 100 08/23/18 04:00 08/23/18 04:01 08/23/18 04:04 Temperature Pulse Rate 101 H 79 77 Respiratory Rate 31 H 25 H 24 Blood Pressure 91/35 L 122/58 L Pulse Oximetry 81 L 95 100 08/23/18 04:30 08/23/18 05:00 08/23/18 05:30 Temperature Pulse Rate 67 74 65 Respiratory Rate 19 25 H 21 Blood Pressure 110/64 116/70 123/71 Pulse Oximetry 100 100 100 08/23/18 06:00 08/23/18 06:30 08/23/18 07:58 Temperature Pulse Rate 92 H 57 L Respiratory Rate 28 H 23 Blood Pressure 137/70 113/66 Pulse Oximetry 84 L 100 100 Intake & Output 08/22/18 08/23/18 08/23/18 18:59 06:59 18:59 Intake Total 2099 / 2099 3430 / 3430 Output Total 400 / 400 800 / 800 Balance 1700 / 1700 2630 / 2630 Weight 62.9 kg Intake: IV 2099 / 2099 2800 / 2800 NS Inj 1,000 ML @ 154 mls/hr IV 1999 .CONT .Q6H30M SHAYNA Rx#:[id number] Zerbaxa Inj 1,500 MG In NS Inj 100 / 100 200 / 200 100 ML @ 100 mls/hr IV.SIG Q8H SHAYNA Rx#:[id number] Zyvox 600 mg Premix 300 ML @ 600 / 600 300 mls/hr IV.SIG Q12H SHAYNA Rx#: [id number] Tube Feeding 600 / 600 Tube Irrigant 30 / 30 Output: Urine 400 / 400 Urine Amount (Catheter) 800 / 800 Condom 800 / 800 Other: # Incontinent Voids 1 Date of Last Bowel Movement 08/23/18 # Incontinent Bowel Movements 2 08/22/18 12:30 Sputum - Tracheal Aspirate Gram Stain - Final 08/22/18 12:30 Sputum - Tracheal Aspirate Sputum Culture - Pending 08/21/18 23:00 Blood - Peripheral Aerobic Blood Culture - Preliminary No growth in 1 day 08/21/18 23:00 Blood - Peripheral Anaerobic Blood Culture - Preliminary No growth in 1 day 08/21/18 23:00 Blood - Peripheral Aerobic Blood Culture - Preliminary No growth in 1 day 08/21/18 23:00 Blood - Peripheral Anaerobic Blood Culture - Preliminary No growth in 1 day Lab - Hematology Results 08/22/18 08/22/18 08/23/18 00:25 16:26 03:50 WBC 13.6 H 5.8 D 5.9 RBC 4.82 4.20 L 3.69 L Hgb 15.5 13.5 D 11.7 L Hct 44.0 38.6 L 34.9 L MCV 91.3 91.9 94.4 MCH 32.2 32.2 31.6 MCHC 35.3 35.1 33.5 RDW 14.3 14.1 14.2 Plt Count 266 148 L D 153 MPV 10.2 10.0 10.2 Neut % (Auto) 84.3 H 67.1 Lymph % (Auto) 6.7 L 19.6 [place] % (Auto) 8.4 H 10.5 H Eos % (Auto) 0.2 2.4 Baso % (Auto) 0.4 0.4 Neut # (Auto) 11.5 H 4.0 Lymph # (Auto) 0.9 L 1.2 [place] # (Auto) 1.1 H 0.6 Eos # (Auto) 0.0 0.1 Baso # (Auto) 0.1 0.0 WBC Differential . . Differential Comment Auto diff final Auto diff final Hematology Comments Lab - Chemistry Results 08/21/18 08/21/18 08/22/18 23:00 23:00 00:13 Sodium 139 Potassium 4.3 Chloride 103 Carbon Dioxide 21.5 Anion Gap 15 BUN 13 Creatinine 1.40 H Estimated GFR 72 L POC Glucose 113 H Random Glucose 173 H Lactic Acid 8.6 H* Calcium 9.4 Phosphorus Magnesium 2.2 Total Bilirubin 0.2 AST 29 ALT 68 Alkaline Phosphatase 93 Total Protein 9.3 H Albumin 4.5 08/22/18 08/22/18 08/22/18 02:49 06:36 11:55 Sodium Potassium Chloride Carbon Dioxide Anion Gap BUN Creatinine Estimated GFR POC Glucose 118 H 140 H Random Glucose Lactic Acid 1.8 Calcium Phosphorus Magnesium Total Bilirubin AST ALT Alkaline Phosphatase Total Protein Albumin 08/22/18 08/22/18 08/22/18 12:31 12:31 18:05 Sodium 143 Potassium 3.7 Chloride 112 H D Carbon Dioxide 25.8 Anion Gap 5 BUN 12 Creatinine 0.83 Estimated GFR Greater than 89 POC Glucose 91 Random Glucose 112 H Lactic Acid 1.4 Calcium 8.2 L D Phosphorus 2.7 Magnesium 2.4 Total Bilirubin 0.2 AST 26 ALT 51 Alkaline Phosphatase 74 Total Protein 7.2 D Albumin 3.5 D 08/23/18 08/23/18 08/23/18 00:30 03:50 06:14 Sodium 143 Potassium 3.9 Chloride 110 H Carbon Dioxide 26.7 Anion Gap 6 BUN 5 L Creatinine 0.69 Estimated GFR Greater than 89 POC Glucose 100 98 Random Glucose 129 H Lactic Acid Calcium 8.0 L Phosphorus Magnesium Total Bilirubin 0.3 AST 26 ALT 43 Alkaline Phosphatase 68 Total Protein 6.3 L D Albumin 3.0 L Imaging: ITS Impressions Chest X-Ray 08/21/18 22:44 CONCLUSION: Minimal density in the left midlung. Physical Exam: GENERAL: Awake, not interacting, not in respiratory distress. He is on T- piece. Drooling a lot of clear oral secretions SKIN: Warm and dry. No generalized rash, no ecchymoses and no evidence of embolic lesions. HEAD: Atraumatic. Normocephalic. No temporal wasting, or tenderness. EYES: [place] conjunctiva. No petechia or hemorrhage. No scleral icterus. No injection or drainage. EARS, NOSE AND THROAT: Nose without bleeding or purulent nasal discharge. Mucous membranes pink and moist. Unable to get good exam of his oropharynx NECK: Tracheostomy site looks ok. Has thick light yellow/marie secretions from his trach. CARDIOVASCULAR: Regular rate and rhythm. No murmurs, rubs or gallops heard RESPIRATORY: Decreased breath sounds charisse wayne at the bases ABDOMEN: Soft, nondistended. PEG site looks ok. Bowel sounds present and normoactive. EXTREMITIES: No clubbing, cyanosis. Both feet plantar flexed. Well perfused and warm. NEUROLOGICAL: No interaction. Some spasticity of all extremities, posturing PSYCHIATRIC: Unable to assess : cath in place, urine looks clear LINE: No evidence of infection Assessment and Plan - Plan Impression Sepsis on presentation (fever, tachycardia, leukocytosis, elevated lactic acid, low BP) - [place] resident - likely HCAP vs mucus plugging Hx MDRO infections in the past Chronic vegetative state Renal insufficiency due to sepsis Recommendation IV Zerbaxa - to cover MDRO GNR organisms Continue Zyvox for MRSA Follow C/S and adjust Abx Monitor progress Will determine course of Abx once work-up completed D/W RN
--- NOTE | 2018-08-23 11:44 | P.PNIM ---
Subjective Interval history: 08/21: 33-year-old male presents from a nursing facility. He has a trach and PEG, he is bedbound and he seems to have constantly contracted extremities. He is well-known to the [facility] system. He is coming in tonight because he was coughing through his trach, and brown fluid was coming out possibly coffee- ground emesis as well as he was diaphoretic and febrile, possibly septic. The HPI is limited due to the fact that he is nonverbal and seems to be altered possibly due to sepsis at this time. 08/22: Remains encephalopathic. On trach collar. Tolerating PEG feeds. 08-23 TRANSFERRED TO OUR SERVICE TODAY HAD CENTRAL LINE PLACED LAST NIGHT IN GROIN SEEN BY ID-REMAINS ON ZERBAXA AND ZYVOX CONSULT VASCULAR ACCESS FOR PICC Physical Exam Vital signs: Vital Signs 08/22/18 12:00 08/22/18 12:30 08/22/18 13:00 Temperature Pulse Rate 74 83 73 Respiratory Rate 19 23 22 Blood Pressure 109/63 121/77 115/68 Pulse Oximetry 100 100 100 08/22/18 13:30 08/22/18 14:00 08/22/18 14:31 Temperature Pulse Rate 62 75 72 Respiratory Rate 21 23 25 H Blood Pressure 101/57 L 120/72 139/51 L Pulse Oximetry 100 100 100 08/22/18 15:00 08/22/18 15:01 08/22/18 15:30 Temperature Pulse Rate 59 L 59 L 73 Respiratory Rate 20 20 22 Blood Pressure 99/53 L 88/59 L Pulse Oximetry 100 100 100 08/22/18 16:00 08/22/18 16:01 08/22/18 16:30 Temperature Pulse Rate 117 H 120 H 88 Respiratory Rate 30 H 32 H 23 Blood Pressure 155/71 H 114/57 L Pulse Oximetry 98 99 95 08/22/18 17:00 08/22/18 17:30 08/22/18 18:00 Temperature Pulse Rate 91 H 80 66 Respiratory Rate 0 L 27 H 24 Blood Pressure 121/64 111/64 101/57 L Pulse Oximetry 98 99 100 08/22/18 18:30 08/22/18 19:00 08/22/18 19:30 Temperature Pulse Rate 72 60 71 Respiratory Rate 22 22 25 H Blood Pressure 112/62 103/57 L 98/61 L Pulse Oximetry 100 100 100 08/22/18 20:00 08/22/18 21:00 08/22/18 21:01 Temperature 99 F Pulse Rate 73 121 H 121 H Respiratory Rate 17 40 H 35 H Blood Pressure 127/73 138/82 138/82 Pulse Oximetry 100 97 100 08/22/18 21:02 08/22/18 21:30 08/22/18 22:00 Temperature Pulse Rate 103 H 99 H 90 Respiratory Rate 26 H 33 H 30 H Blood Pressure 128/63 117/56 L Pulse Oximetry 100 100 100 08/22/18 22:30 08/22/18 23:00 08/22/18 23:30 Temperature Pulse Rate 85 82 77 Respiratory Rate 6 L 21 16 Blood Pressure 118/66 119/68 115/67 Pulse Oximetry 100 100 99 08/23/18 00:00 08/23/18 00:30 08/23/18 01:00 Temperature Pulse Rate 74 63 59 L Respiratory Rate 16 11 L 8 L Blood Pressure 99/55 L 93/55 L 101/58 L Pulse Oximetry 99 100 100 08/23/18 01:13 08/23/18 01:31 08/23/18 02:00 Temperature Pulse Rate 99 H 71 Respiratory Rate 29 H 22 Blood Pressure 132/70 110/63 Pulse Oximetry 100 100 100 08/23/18 02:30 08/23/18 03:00 08/23/18 03:30 Temperature Pulse Rate 67 57 L 55 L Respiratory Rate 20 19 18 Blood Pressure 103/61 82/57 L 84/47 L Pulse Oximetry 100 100 100 08/23/18 04:00 08/23/18 04:01 08/23/18 04:04 Temperature Pulse Rate 101 H 79 77 Respiratory Rate 31 H 25 H 24 Blood Pressure 91/35 L 122/58 L Pulse Oximetry 81 L 95 100 08/23/18 04:30 08/23/18 05:00 08/23/18 05:30 Temperature Pulse Rate 67 74 65 Respiratory Rate 19 25 H 21 Blood Pressure 110/64 116/70 123/71 Pulse Oximetry 100 100 100 08/23/18 06:00 08/23/18 06:30 08/23/18 07:58 Temperature Pulse Rate 92 H 57 L Respiratory Rate 28 H 23 Blood Pressure 137/70 113/66 Pulse Oximetry 84 L 100 100 08/23/18 10:19 Temperature Pulse Rate 62 Respiratory Rate 22 Blood Pressure Pulse Oximetry Intake & Output 08/22/18 08/23/18 08/23/18 18:59 06:59 18:59 Intake Total 2100 / 2100 3430 / 3430 1300 / 1300 Output Total 400 / 400 800 / 800 Balance 1700 / 1700 2630 / 2630 1300 / 1300 Weight 62.9 kg Intake: IV 2100 / 2100 2800 / 2800 1300 / 1300 NS Inj 1,000 ML @ 154 mls/hr IV 1999 / 1999 1999 / 1999 1000 / 1000 .CONT .Q6H30M SHAYNA Rx#:[id number] Zerbaxa Inj 1,500 MG In NS Inj 100 / 100 200 / 200 100 ML @ 100 mls/hr IV.SIG Q8H SHAYNA Rx#:[id number] Zyvox 600 mg Premix 300 ML @ 600 / 600 300 / 300 300 mls/hr IV.SIG Q12H SHAYNA Rx#: [id number] Tube Feeding 600 / 600 Tube Irrigant 30 / 30 Output: Urine 400 / 400 Urine Amount (Catheter) 800 / 800 Condom 800 / 800 Other: # Incontinent Voids 1 Date of Last Bowel Movement 08/23/18 # Incontinent Bowel Movements 2 Narrative: Physical Examination GENERAL: Patient is a well-nourished, well-developed male, keeps eyes closed , not interacting, not in respiratory distress. He is on T-piece. Has thick light yellow/beige secretions from his trach SKIN: Warm and dry. No generalized rash, no ecchymoses and no evidence of embolic lesions. HEAD: Atraumatic. Normocephalic. No temporal wasting, or tenderness. EYES: [place] conjunctiva. No petechia or hemorrhage. No scleral icterus. No injection or drainage. EARS, NOSE AND THROAT: Nose without bleeding or purulent nasal discharge. Mucous membranes pink and moist. Unable to get good exam of his oropharynx NECK: Tracheostomy site looks ok. Has thick light yellow/marie secretions from his trach. CARDIOVASCULAR: Regular rate and rhythm. No murmurs, rubs or gallops heard RESPIRATORY: Decreased breath sounds charisse wayne at the bases ABDOMEN: Soft, nondistended. PEG site looks ok. Bowel sounds present and normoactive. EXTREMITIES: No clubbing, cyanosis. Both feet plantar flexed. Well perfused and warm. NEUROLOGICAL: Eyes remain closed, some withdrawal of feet when stimulated. No interaction. Some spasticity of all extremities PSYCHIATRIC: Unable to assess : cath in place, urine looks clear LINE: No evidence of infection IN GROIN - Urinary Catheter Management Indwelling Temp Sensing Catheter Cath placed during this visit: yes Reason for continuing: Terminally ill/Comfort care Insertion date: 08/21/18 Insertion time: 23:15 Condom Cath placed during this visit: no Results - Labs CBC & Chem 7: 08/23/18 03:50 08/23/18 03:50 Laboratory Results - last 24 hr 08/22/18 08/22/18 08/22/18 11:55 12:31 12:31 WBC RBC Hgb Hct MCV MCH MCHC RDW Plt Count MPV Neut % (Auto) Lymph % (Auto) [place] % (Auto) Eos % (Auto) Baso % (Auto) Neut # (Auto) Lymph # (Auto) [place] # (Auto) Eos # (Auto) Baso # (Auto) WBC Differential Differential Comment Hematology Comments PT 11.8 H INR 1.2 APTT 23.7 L Sodium 143 Potassium 3.7 Chloride 112 H D Carbon Dioxide 25.8 Anion Gap 5 BUN 12 Creatinine 0.83 Estimated GFR Greater than 89 POC Glucose 140 H Random Glucose 112 H Lactic Acid Calcium 8.2 L D Phosphorus 2.7 Magnesium 2.4 Total Bilirubin 0.2 AST 26 ALT 51 Alkaline Phosphatase 74 Total Protein 7.2 D Albumin 3.5 D 08/22/18 08/22/18 08/22/18 12:31 16:26 18:05 WBC 5.8 D RBC 4.20 L Hgb 13.5 D Hct 38.6 L MCV 91.9 MCH 32.2 MCHC 35.1 RDW 14.1 Plt Count 148 L D MPV 10.0 Neut % (Auto) Lymph % (Auto) [place] % (Auto) Eos % (Auto) Baso % (Auto) Neut # (Auto) Lymph # (Auto) [place] # (Auto) Eos # (Auto) Baso # (Auto) WBC Differential Differential Comment Hematology Comments PT INR APTT Sodium Potassium Chloride Carbon Dioxide Anion Gap BUN Creatinine Estimated GFR POC Glucose 91 Random Glucose Lactic Acid 1.4 Calcium Phosphorus Magnesium Total Bilirubin AST ALT Alkaline Phosphatase Total Protein Albumin 08/23/18 08/23/18 08/23/18 00:30 03:50 03:50 WBC 5.9 RBC 3.69 L Hgb 11.7 L Hct 34.9 L MCV 94.4 MCH 31.6 MCHC 33.5 RDW 14.2 Plt Count 153 MPV 10.2 Neut % (Auto) 67.1 Lymph % (Auto) 19.6 [place] % (Auto) 10.5 H Eos % (Auto) 2.4 Baso % (Auto) 0.4 Neut # (Auto) 4.0 Lymph # (Auto) 1.2 [place] # (Auto) 0.6 Eos # (Auto) 0.1 Baso # (Auto) 0.0 WBC Differential . Differential Comment Auto diff final Hematology Comments PT INR APTT Sodium 143 Potassium 3.9 Chloride 110 H Carbon Dioxide 26.7 Anion Gap 6 BUN 5 L Creatinine 0.69 Estimated GFR Greater than 89 POC Glucose 100 Random Glucose 129 H Lactic Acid Calcium 8.0 L Phosphorus Magnesium Total Bilirubin 0.3 AST 26 ALT 43 Alkaline Phosphatase 68 Total Protein 6.3 L D Albumin 3.0 L 08/23/18 06:14 WBC RBC Hgb Hct MCV MCH MCHC RDW Plt Count MPV Neut % (Auto) Lymph % (Auto) [place] % (Auto) Eos % (Auto) Baso % (Auto) Neut # (Auto) Lymph # (Auto) [place] # (Auto) Eos # (Auto) Baso # (Auto) WBC Differential Differential Comment Hematology Comments PT INR APTT Sodium Potassium Chloride Carbon Dioxide Anion Gap BUN Creatinine Estimated GFR POC Glucose 98 Random Glucose Lactic Acid Calcium Phosphorus Magnesium Total Bilirubin AST ALT Alkaline Phosphatase Total Protein Albumin Microbiology 08/21/18 23:00 Blood - Peripheral Aerobic Blood Culture - Preliminary No growth in 2 days 08/21/18 23:00 Blood - Peripheral Anaerobic Blood Culture - Preliminary No growth in 2 days 08/21/18 23:00 Blood - Peripheral Aerobic Blood Culture - Preliminary gram positive cocci 08/21/18 23:00 Blood - Peripheral Anaerobic Blood Culture - Preliminary No growth in 2 days 08/22/18 12:30 Sputum - Tracheal Aspirate Gram Stain - Final - Imaging Laboratory Results WBC 5.9 th/mm3 (4.0-11.0) 08/23/18 03:50 RBC 3.69 mil/mm3 (4.50-5.90) L 08/23/18 03:50 Hgb 11.7 gm/dL (13.0-17.0) L 08/23/18 03:50 Hct 34.9 % (39.0-51.0) L 08/23/18 03:50 MCV 94.4 fL (80.0-100.0) 08/23/18 03:50 MCH 31.6 pg (27.0-34.0) 08/23/18 03:50 MCHC 33.5 % (32.0-36.0) 08/23/18 03:50 RDW 14.2 % (11.6-17.2) 08/23/18 03:50 Plt Count 153 th/mm3 (150-450) 08/23/18 03:50 MPV 10.2 fL (7.0-11.0) 08/23/18 03:50 Neut % (Auto) 67.1 % (16.0-70.0) 08/23/18 03:50 Lymph % (Auto) 19.6 % (9.0-44.0) 08/23/18 03:50 [place] % (Auto) 10.5 % (0.0-8.0) H 08/23/18 03:50 Eos % (Auto) 2.4 % (0.0-4.0) 08/23/18 03:50 Baso % (Auto) 0.4 % (0.0-2.0) 08/23/18 03:50 Neut # (Auto) 4.0 th/mm3 (1.8-7.7) 08/23/18 03:50 Lymph # (Auto) 1.2 th/mm3 (1.0-4.8) 08/23/18 03:50 [place] # (Auto) 0.6 th/mm3 (0.0-0.9) 08/23/18 03:50 Eos # (Auto) 0.1 th/mm3 (0.0-0.4) 08/23/18 03:50 Baso # (Auto) 0.0 th/mm3 (0.0-0.2) 08/23/18 03:50 WBC Differential . 08/23/18 03:50 Differential Comment Auto diff final 08/23/18 03:50 Hematology Comments 08/22/18 16:26 PT 11.8 sec (9.8-11.6) H 08/22/18 12:31 INR 1.2 Ratio 08/22/18 12:31 APTT 23.7 sec (24.3-30.1) L 08/22/18 12:31 Sodium 143 meq/L (136-145) 08/23/18 03:50 Potassium 3.9 meq/L (3.5-5.1) 08/23/18 03:50 Chloride 110 meq/L (98-107) H 08/23/18 03:50 Carbon Dioxide 26.7 meq/L (21.0-32.0) 08/23/18 03:50 Anion Gap 6 meq/L (5-15) 08/23/18 03:50 BUN 5 mg/dL (7-18) L 08/23/18 03:50 Creatinine 0.69 mg/dL (0.60-1.30) 08/23/18 03:50 Estimated GFR Greater than 89 mL/min (>89) 08/23/18 03:50 POC Glucose 98 mg/dl (68-110) 08/23/18 06:14 Random Glucose 129 mg/dL (74-106) H 08/23/18 03:50 Lactic Acid 1.4 mmol/L (0.4-2.0) 08/22/18 12:31 Calcium 8.0 mg/dL (8.5-10.1) L 08/23/18 03:50 Phosphorus 2.7 mg/dL (2.5-4.9) 08/22/18 12:31 Magnesium 2.4 mg/dL (1.5-2.5) 08/22/18 12:31 Total Bilirubin 0.3 mg/dL (0.2-1.0) 08/23/18 03:50 AST 26 U/L (15-37) 08/23/18 03:50 ALT 43 U/L (12-78) 08/23/18 03:50 Alkaline Phosphatase 68 U/L (45-117) 08/23/18 03:50 Total Protein 6.3 g/dL (6.4-8.2) L D 08/23/18 03:50 Albumin 3.0 g/dL (3.4-5.0) L 08/23/18 03:50 Urine Color Yellow (Yellw/Straw) 08/21/18 23:00 Urine Clarity Hazy (Clear) H 08/21/18 23:00 Urine pH 6.0 (5.0-8.5) 08/21/18 23:00 Ur Specific [place] 1.015 (1.002-1.035) 08/21/18 23:00 Urine Protein Negative mg/dL (Neg-Trace) 08/21/18 23:00 Urine Glucose (UA) Negative mg/dL (Negative) 08/21/18 23:00 Urine Ketones Negative mg/dL (Negative) 08/21/18 23:00 Urine Occult Blood Negative (Negative) 08/21/18 23:00 Urine Nitrate Negative (Negative) 08/21/18 23:00 Urine Bilirubin Negative (Negative) 08/21/18 23:00 Urine Urobilinogen 2.0 mg/dL (Less than 2) H 08/21/18 23:00 Ur Leukocyte Esterase Negative (Negative) 08/21/18 23:00 Urine RBC 1 /hpf (0-3) 08/21/18 23:00 Urine WBC 1 /hpf (0-5) 08/21/18 23:00 Hyaline Casts 4 /lpf (0-3) 08/21/18 23:00 Urine Mucus Few /lpf (Occasional) H 08/21/18 23:00 Micro UA Comment Cath-culture not ind 08/21/18 23:00 Ur Microscopic Review Not Reportable 08/21/18 23:00 Nasal Screen MRSA (PCR) Not detected (Negative) 08/22/18 01:05 Impressions Chest X-Ray 08/21/18 22:44 CONCLUSION: Minimal density in the left midlung. - Procedures FEMORAL CATHETER CENTRAL ACCESS Assessment and Plan - Plan Sepsis/SIRS -Broad-spectrum antibiotic -IV fluid hydration -Panculture -De-escalate per sensitivity ON ZERBAXA AND ZYVOX Coffee-ground emesis -Protonix IV twice daily -Monitor H&H -GI consultation- NO PROCEDURES AT THIS TIME Encephalopathy with contractures -Baclofen -Diazepam as needed Seizure disorder -Keppra Diabetes mellitus -Insulin sliding scale DVT GI prophylaxis -Eliquis -Teds SCDs -Protonix IV twice daily Code Status: FULL CODE Discussed Condition With: steward/stewardess banquet Planning: ONCE CLEARED BY ID AND GI
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
[2018-08-23] MEDS: HYDROmorphone PF Inj 2 MG/ML Vial IV.PUSH PRN (19:26)
[2018-08-23] MEDS: Acetaminophen 325 MG Tablet PO PRN (19:41)
[2018-08-23] MEDS ORDERED: Diatrizoate Meglum/Diatrizoate Sod Liq 120 ML Bottle (for RAD diag) G-TUBE ONE (20:49)
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
[2018-08-24] MEDS: Sod Chloride 0.9% Inj 1,000 ML IV.CONT SCH ×4 (01:00→23:42)
[2018-08-24] MEDS: HYDROmorphone PF Inj 2 MG/ML Vial IV.PUSH PRN ×2 (01:11→19:06)
[2018-08-24] MEDS: Insulin NovoLOG Aspart Correctional Sugar Inj SQ SCH ×4 (03:14→19:05)
[2018-08-24] MEDS: SODIUM CHLOR 0.9% IV.SIG SCH ×3 (03:14→20:19)
[2018-08-24] MEDS: CEFTOLOZANE IV.SIG SCH ×3 (03:14→20:19)
[2018-08-24] MEDS: TAZOBACTAM IV.SIG SCH ×3 (03:14→20:19)
[2018-08-24 05:04] LABS: Baso % (Auto) 0.6 % (0.0-2.0); Eos # (Auto) 0.2 th/mm3 (0.0-0.4); Eos % (Auto) 5.6 % (0.0-4.0); Hematocrit 32.4 % (39.0-51.0); Hemoglobin 10.8 gm/dL (13.0-17.0); Lymph # (Auto) 1.4 th/mm3 (1.0-4.8); Lymph % (Auto) 44.1 % (9.0-44.0); Mean Corpuscular HGB Conc 33.2 % (32.0-36.0); Mean Corpuscular Hemoglobin 31.4 pg (27.0-34.0); Mean Corpuscular Volume 94.7 fL (80.0-100.0); Mean Platelet Volume 9.6 fL (7.0-11.0); Mono # (Auto) 0.5 th/mm3 (0.0-0.9); Mono % (Auto) 14.1 % (0.0-8.0); Neut # (Auto) 1.2 th/mm3 (1.8-7.7); Neut % (Auto) 35.6 % (16.0-70.0); Platelet Count 148 th/mm3 (150-450); Red Blood Count 3.42 mil/mm3 (4.50-5.90); Red Cell Distribution Width 13.8 % (11.6-17.2); White Blood Count 3.3 th/mm3 (4.0-11.0)
[2018-08-24 05:30] LABS: Albumin 2.8 g/dL (3.4-5.0); Anion Gap 8 meq/L (5-15); Aspartate Aminotransferase 22 U/L (15-37); Blood Urea Nitrogen 3 mg/dL (7-18); Calcium 7.6 mg/dL (8.5-10.1); Carbon Dioxide 27.1 meq/L (21.0-32.0); Chloride 110 meq/L (98-107); Glomerular Filtration Rate Greater Than 89 mL/min (>89); Glucose,Random 92 mg/dL (74-106); Magnesium 1.9 mg/dL (1.5-2.5); Potassium 3.3 meq/L (3.5-5.1); Sodium 145 meq/L (136-145)
[2018-08-24 05:31] LABS: Alanine Aminotransferase 43 U/L (12-78)
[2018-08-24 05:41] LABS: Alkaline Phosphatase 63 U/L (45-117); Free T4 (Free Thyroxine) 0.95 ng/dL (0.76-1.46); Phosphorus 3.8 mg/dL (2.5-4.9); Thyroid Stimulating Hormone 0.964 uIU/mL (0.358-3.740)
[2018-08-24] MEDS: Chlorhexidine Gluconate 2% 1 Pack (2 Cloths) TOPICAL SCH (05:54)
[2018-08-24] MEDS: Pantoprazole Inj 40 MG Vial IV.PUSH SCH ×2 (05:56→17:04)
[2018-08-24] MEDS: Potassium Chlor 20 mEq Premix 20 MEQ/100 ML PIGGYBACK IV.SIG PRN ×2 (08:13→10:28)
[2018-08-24] MEDS ORDERED: levETIRAcetam 1000mg/100mL Inj 100 ML IV.SIG ONE (09:07)
--- NOTE | 2018-08-24 09:39 | P.PNID ---
Subjective Remarks: Patient is a 33-year-old male, a shelter resident, in a chronic vegetative state, has a trach in place, and PEG, brought into the hospital after he was noted to be coughing up some brown fluid from his tracheostomy. It was felt that it could possibly be coffee-ground emesis. He was also diaphoretic and febrile. In the ED he had a temperature of 102.8. He was initially hypotensive which improved with fluid resuscitation. Chest x-ray showed minimal infiltrate on the left side. His creatinine was elevated at 1.4. White count 13,000. Lactic acid was 8. Patient was admitted as sepsis. Infectious disease consultation has been requested to evaluate the patient. Patient has had multiple admissions to the hospital for similar complaints. He has had infections with multidrug-resistant organisms including MDR Pseudomonas , ESBL positive organisms. Notes reviewed Temps normal overnight BP ok On T-piece Has a lot of oral secretions, drooling Has central line in R groin WBC now normal C/S Pseudomonas, GNR One BC with Coag Neg Staph WBC 3.3 Antibiotics: Zerbaxa Zyvox Lines: R Groin central line Past Medical History: Tracheostomy dependent (Acute) GERD (gastroesophageal reflux disease) (Acute) Pancreatitis (Acute) Diabetes mellitus (Acute) Dyslipidemia (Acute) HTN (hypertension) (Acute) Seizure (Acute) DVT (deep venous thrombosis) (Acute) Anoxic brain damage (Acute) MDRO (multiple drug resistant organisms) resistance Multiple drug resistant organism (MDRO) culture positive S/P PEG Allergies/Adverse Reactions: Allergies haloperidol Adverse Reaction (Severe, Verified 06/09/18 09:58) Seizures *MDRO Multi-Drug Resistant Organism Adverse Reaction (Unknown, Uncoded 06/09/18 09:58) Dry Mucus Membranes MRSA (sputum) - 04/25/16 & 05/23/16 MRSA PCR Screen POSITIVE - 04/25/2016 ESBL+E.Coli (blood-05/22/16) Objective Vital Signs 08/23/18 10:00 08/23/18 10:19 08/23/18 12:00 Temperature 99.5 F Pulse Rate 84 62 67 Respiratory Rate 27 H 22 21 Blood Pressure 140/66 134/60 Pulse Oximetry 100 100 08/23/18 16:00 08/23/18 20:00 08/23/18 21:33 Temperature 99.1 F 99.0 F Pulse Rate 72 95 H Respiratory Rate 24 18 Blood Pressure 125/56 L 143/65 H Pulse Oximetry 96 100 100 08/24/18 00:00 08/24/18 04:00 08/24/18 08:17 Temperature 99.0 F 98.4 F Pulse Rate 51 L 46 L Respiratory Rate 17 15 Blood Pressure 125/70 103/53 L Pulse Oximetry 100 100 98 Intake & Output 08/23/18 08/24/18 08/24/18 18:59 06:59 18:59 Intake Total 2955 / 2955 1580 / 1580 1000 / 1000 Output Total 1600 / 1600 400 / 400 Balance 1355 / 1355 1180 / 1180 1000 / 1000 Weight 71.5 kg Intake: IV 2400 / 2400 1500 / 1500 1000 / 1000 NS Inj 1,000 ML @ 154 mls/hr IV 2000 / 2000 1000 / 1000 1000 / 1000 .CONT .Q6H30M [facility] Rx#:[id number] Zerbaxa Inj 1,500 MG In NS Inj 100 / 100 200 / 200 100 ML @ 100 mls/hr IV.SIG Q8H [facility] Rx#:[id number] Zyvox 600 mg Premix 300 ML @ 300 / 300 300 / 300 300 mls/hr IV.SIG Q12H [facility] Rx#: [id number] Oral Supplement 0 / 0 Tube Feeding 435 / 435 80 / 80 Water Bolus Amount 120 / 120 Output: Stool 0 / 0 Urine/Stool Mix 0 / 0 Urine Amount (Catheter) 1600 / 1600 400 / 400 Condom 1600 / 1600 400 / 400 Other: Date of Last Bowel Movement 08/23/18 08/22/18 # Bowel Movements 0 # Incontinent Bowel Movements 1 0 08/22/18 12:30 Sputum - Tracheal Aspirate Gram Stain - Final 08/22/18 12:30 Sputum - Tracheal Aspirate Sputum Culture - Preliminary Pseudomonas species gram negative rods 08/21/18 23:00 Blood - Peripheral Aerobic Blood Culture - Preliminary Staphylococcus coag negative 08/21/18 23:00 Blood - Peripheral Anaerobic Blood Culture - Preliminary No growth in 2 days 08/21/18 23:00 Blood - Peripheral Aerobic Blood Culture - Preliminary No growth in 2 days 08/21/18 23:00 Blood - Peripheral Anaerobic Blood Culture - Preliminary No growth in 2 days Lab - Hematology Results 08/22/18 08/23/18 08/24/18 16:26 03:50 04:20 WBC 5.8 D 5.9 3.3 L RBC 4.20 L 3.69 L 3.42 L Hgb 13.5 D 11.7 L 10.8 L Hct 38.6 L 34.9 L 32.4 L MCV 91.9 94.4 94.7 MCH 32.2 31.6 31.4 MCHC 35.1 33.5 33.2 RDW 14.1 14.2 13.8 Plt Count 148 L D 153 148 L MPV 10.0 10.2 9.6 Neut % (Auto) 67.1 35.6 Lymph % (Auto) 19.6 44.1 H [place] % (Auto) 10.5 H 14.1 H Eos % (Auto) 2.4 5.6 H Baso % (Auto) 0.4 0.6 Neut # (Auto) 4.0 1.2 L Lymph # (Auto) 1.2 1.4 [place] # (Auto) 0.6 0.5 Eos # (Auto) 0.1 0.2 Baso # (Auto) 0.0 0.0 WBC Differential . . Differential Comment Auto diff final Auto diff final Hematology Comments Lab - Chemistry Results 08/22/18 08/22/18 08/22/18 11:55 12:31 12:31 Sodium 143 Potassium 3.7 Chloride 112 H D Carbon Dioxide 25.8 Anion Gap 5 BUN 12 Creatinine 0.83 Estimated GFR Greater than 89 POC Glucose 140 H Random Glucose 112 H Lactic Acid 1.4 Calcium 8.2 L D Phosphorus 2.7 Magnesium 2.4 Total Bilirubin 0.2 AST 26 ALT 51 Alkaline Phosphatase 74 Total Protein 7.2 D Albumin 3.5 D TSH Free T4 08/22/18 08/23/18 08/23/18 18:05 00:30 03:50 Sodium 143 Potassium 3.9 Chloride 110 H Carbon Dioxide 26.7 Anion Gap 6 BUN 5 L Creatinine 0.69 Estimated GFR Greater than 89 POC Glucose 91 100 Random Glucose 129 H Lactic Acid Calcium 8.0 L Phosphorus Magnesium Total Bilirubin 0.3 AST 26 ALT 43 Alkaline Phosphatase 68 Total Protein 6.3 L D Albumin 3.0 L TSH Free T4 08/23/18 08/23/18 08/23/18 06:14 11:43 17:08 Sodium Potassium Chloride Carbon Dioxide Anion Gap BUN Creatinine Estimated GFR POC Glucose 98 86 85 Random Glucose Lactic Acid Calcium Phosphorus Magnesium Total Bilirubin AST ALT Alkaline Phosphatase Total Protein Albumin TSH Free T4 08/24/18 08/24/18 08/24/18 01:49 04:20 05:59 Sodium 145 Potassium 3.3 L Chloride 110 H Carbon Dioxide 27.1 Anion Gap 8 BUN 3 L Creatinine 0.64 Estimated GFR Greater than 89 POC Glucose 93 88 Random Glucose 92 Lactic Acid Calcium 7.6 L Phosphorus 3.8 D Magnesium 1.9 Total Bilirubin 0.3 AST 22 ALT 43 Alkaline Phosphatase 63 Total Protein 6.0 L Albumin 2.8 L TSH 0.964 Free T4 0.95 Imaging: ITS Impressions Chest X-Ray 08/21/18 22:44 CONCLUSION: Minimal density in the left midlung. Abdomen X-Ray 08/23/18 00:00 CONCLUSION: 1. GJ tube projects over the right abdomen. Contrast is identified within the gastric lumen. 2. Nonobstructive bowel gas pattern. No pneumoperitoneum. Physical Exam: GENERAL: Awake, not interacting, coughing a lot. He is on T-piece. Drooling a lot of clear oral secretions SKIN: Warm and dry. No generalized rash, no ecchymoses and no evidence of embolic lesions. HEAD: Atraumatic. Normocephalic. No temporal wasting, or tenderness. EYES: [place] conjunctiva. No petechia or hemorrhage. No scleral icterus. No injection or drainage. EARS, NOSE AND THROAT: Nose without bleeding or purulent nasal discharge. Mucous membranes pink and moist. NECK: Tracheostomy site looks ok. Has thick light yellow/marie secretions from his trach. CARDIOVASCULAR: Regular rate and rhythm. No murmurs, rubs or gallops heard RESPIRATORY: Decreased breath sounds at the bases, scattered rhonchi ABDOMEN: Soft, nondistended. PEG site looks ok. Bowel sounds present and normoactive. EXTREMITIES: No clubbing, cyanosis. Both feet plantar flexed. Well perfused and warm. NEUROLOGICAL: No interaction. Some spasticity of all extremities, posturing PSYCHIATRIC: Unable to assess : cath in place, urine looks clear LINE: No evidence of infection Assessment and Plan - Plan Impression Sepsis on presentation (fever, tachycardia, leukocytosis, elevated lactic acid, low BP) - [facility] resident - likely HCAP vs mucus plugging HCAP, mucus plugging One +BC with Coag Neg Staph Neutropenia, ?Zyvox Hx MDRO infections in the past Chronic vegetative state Renal insufficiency due to sepsis Recommendation Continue IV Zerbaxa - to cover MDRO GNR organisms Stop Zyvox Follow C/S and adjust Abx Monitor progress Pulmonary toilet Follow temps
[2018-08-24] MEDS: Loratadine 10 MG Tablet G-TUBE SCH (10:25)
[2018-08-24] MEDS: Senna/Docusate Sodium 8.6/50 MG Tablet PO SCH ×2 (10:27→20:20)
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
[2018-08-24] MEDS ORDERED: fentaNYL Citrate Inj 100 MCG/2 ML Ampul ONE (15:59)
--- NOTE | 2018-08-24 16:27 | P.RAD ---
Post Procedure Progress Note - Pre Procedure Diagnosis (1) Feeding tube dysfunction - Post Procedure Diagnosis (1) Feeding tube dysfunction - Procedure Information Procedure Date: 08/24/18 Supervising Radiologist: Ernst Goodman Jr, MD Proceduralist/Assist: Cory Clark Estimated blood loss (mL): 0 Anesthesia: Conscious Sedation - Plan of Activity Patient to Unit: Critical Care Patient Condition: Good See PACS Report for procedural detail/treatment. Feeding Tube Feeding Tube: Gastro/Jejunostomy Procedure: Replacement [place] Tube Size: 22 Findings: Original tube had fallen out. New GJ tube placed. In good position. OK to use.
[2018-08-24] MEDS ORDERED: Iohexol 350 MG/ML 50 ML Vial (for Rad Diag) G-TUBE ONE (16:36)
[2018-08-24 17:11] LABS: Hemoglobin A1c 5.2 % (4.3-6.0)
--- NOTE | 2018-08-24 19:28 | IR ---
EXAM DATE: 08/24/2018 12:00 AM EDT AGE/SEX: 33 years / Male INDICATIONS: Patient presents with dislodged Gastrojejunal feeding tube in need of a new feeding tub e placement. CLINICAL DATA: This is the patient's initial encounter. Patient reports that signs and symptoms have been present for 1 day and indicates a pain score of Nonresponsive. MEDICAL/SURGICAL HISTORY: Gastroesophageal reflux disease. Pancreatitis. Diabetes. Dyslipide anastasia, HTN, Seizures, DVT, Anoxic brain damage, Tracheotomy dependent. . Tracheotomy, PEG. COMPARISON: No prior exams available for comparison. FLUORO TIME (min): 2.8 IMAGE SERIES: 3 SEDATION TIME (min): 30 CONTRAST (cc): 30 Omnipaque (iohexol) 350 MEDICATION(S): 2 mg midazolam (Versed) IV 100 mcg fentanyl (Sublimaze) IV DEVICE(S): 22 Swazi Transgastric tube 45 cm . . PROCEDURE: 1. Limited abdominal ultrasound. 2. Fluoroscopically guided gastrojejunostomy tube placement. 3. Conscious sedation with continuous EKG and oximetry monitoring. The patient's original gastrojejunostomy tube is no longer present. It was inadvertently pulled out b y the patient. The risks, benefits and alternatives to the procedure were explained and verbal and wr itten consent was obtained. The site was prepped in sterile fashion. Full sterile technique was use d, including cap, mask, sterile gloves and gown and a large sterile sheet. Hand hygiene and 2% chlor hexidine and/or betadine/alcohol prep was utilized per protocol for cutaneous antisepsis. Under fluoroscopic control a Berenstein catheter in conjunction with an angled Glidewire was passed d own the original tract and into the stomach. The catheter was manipulated into the proximal jejunum. A peel-away sheath was placed. A 22 Swazi gastrojejunostomy tube was passed through the peel-away sh eath and the peel-away sheath removed. The tube is appropriately positioned with the tip in the proxi mal jejunum. The balloon was inflated with 10 mL of sterile saline and pulled to the anterior wall of the stomach. Conscious sedation was performed with the prescribed dosages and duration as above in the presence of an independent trained radiology nurse to assist in the monitoring of the patient. EKG and oximetry remained stable throughout the procedure. The patient tolerated the procedure well and there were n o complications. The patient was sent to post anesthesia recovery in stable condition. CONCLUSION: 1. Uncomplicated gastrojejunostomy tube replacement as above. Electronically signed by: Ernst Goodman MD 08/24/2018 7:27 PM EDT
[2018-08-25] MEDS: LORazepam 0.5 MG Tablet G-TUBE PRN (00:05)
[2018-08-25] MEDS: Insulin NovoLOG Aspart Correctional Sugar Inj SQ SCH ×4 (00:24→17:34)
[2018-08-25] MEDS: TAZOBACTAM IV.SIG SCH ×3 (03:02→18:13)
[2018-08-25] MEDS: CEFTOLOZANE IV.SIG SCH ×3 (03:02→18:13)
[2018-08-25] MEDS: SODIUM CHLOR 0.9% IV.SIG SCH ×3 (03:02→18:13)
[2018-08-25] MEDS: HYDROmorphone PF Inj 2 MG/ML Vial IV.PUSH PRN ×2 (03:02→16:40)
[2018-08-25 05:00] LABS: Baso % (Auto) 0.6 % (0.0-2.0); Eos # (Auto) 0.2 th/mm3 (0.0-0.4); Eos % (Auto) 5.6 % (0.0-4.0); Hematocrit 33.4 % (39.0-51.0); Hemoglobin 11.2 gm/dL (13.0-17.0); Lymph # (Auto) 1.3 th/mm3 (1.0-4.8); Mean Corpuscular HGB Conc 33.4 % (32.0-36.0); Mean Corpuscular Hemoglobin 31.4 pg (27.0-34.0); Mono # (Auto) 0.5 th/mm3 (0.0-0.9); Mono % (Auto) 12.5 % (0.0-8.0); Neut # (Auto) 1.9 th/mm3 (1.8-7.7); Neut % (Auto) 47.3 % (16.0-70.0); Platelet Count 142 th/mm3 (150-450); Red Blood Count 3.55 mil/mm3 (4.50-5.90); Red Cell Distribution Width 13.6 % (11.6-17.2)
[2018-08-25] MEDS: Chlorhexidine Gluconate 2% 1 Pack (2 Cloths) TOPICAL SCH (05:15)
[2018-08-25] MEDS: Pantoprazole Inj 40 MG Vial IV.PUSH SCH ×2 (05:16→17:34)
[2018-08-25 05:24] LABS: Alanine Aminotransferase 40 U/L (12-78); Albumin 2.9 g/dL (3.4-5.0); Anion Gap 7 meq/L (5-15); Aspartate Aminotransferase 21 U/L (15-37); Blood Urea Nitrogen 3 mg/dL (7-18); Calcium 7.9 mg/dL (8.5-10.1); Carbon Dioxide 26.8 meq/L (21.0-32.0); Chloride 110 meq/L (98-107); Glomerular Filtration Rate Greater Than 89 mL/min (>89); Glucose,Random 86 mg/dL (74-106); Phosphorus 3.1 mg/dL (2.5-4.9); Potassium 3.3 meq/L (3.5-5.1); Sodium 144 meq/L (136-145)
[2018-08-25 05:26] LABS: Alkaline Phosphatase 69 U/L (45-117); Total Protein 6.1 g/dL (6.4-8.2)
[2018-08-25] MEDS: Sod Chloride 0.9% Inj 1,000 ML IV.CONT SCH (05:29)
[2018-08-25] MEDS: Dextrose 5%/NaCl 0.45% Inj 1,000 ML IV.CONT SCH ×2 (05:47→17:33)
[2018-08-25] MEDS: Senna/Docusate Sodium 8.6/50 MG Tablet PO SCH ×2 (08:17→20:42)
--- NOTE | 2018-08-25 10:00 | P.PNID ---
Subjective Remarks: Patient is a 33-year-old male, a alf resident, in a chronic vegetative state, has a trach in place, and PEG, brought into the hospital after he was noted to be coughing up some brown fluid from his tracheostomy. It was felt that it could possibly be coffee-ground emesis. He was also diaphoretic and febrile. In the ED he had a temperature of 102.8. He was initially hypotensive which improved with fluid resuscitation. Chest x-ray showed minimal infiltrate on the left side. His creatinine was elevated at 1.4. White count 13,000. Lactic acid was 8. Patient was admitted as sepsis. Infectious disease consultation has been requested to evaluate the patient. Patient has had multiple admissions to the hospital for similar complaints. He has had infections with multidrug-resistant organisms including MDR Pseudomonas , ESBL positive organisms. Notes reviewed Temps normal overnight BP ok On T-piece Had replacement of his GJ tube yesterday Has a lot of oral secretions, drooling Has central line in R groin WBC now normal C/S Pseudomonas, GNR One BC with Coag Neg Staph WBC better Antibiotics: Zerbaxa Zyvox Lines: R Groin central line Past Medical History: Tracheostomy dependent (Acute) GERD (gastroesophageal reflux disease) (Acute) Pancreatitis (Acute) Diabetes mellitus (Acute) Dyslipidemia (Acute) HTN (hypertension) (Acute) Seizure (Acute) DVT (deep venous thrombosis) (Acute) Anoxic brain damage (Acute) MDRO (multiple drug resistant organisms) resistance Multiple drug resistant organism (MDRO) culture positive S/P PEG Allergies/Adverse Reactions: Allergies haloperidol Adverse Reaction (Severe, Verified 06/09/18 09:58) Seizures *MDRO Multi-Drug Resistant Organism Adverse Reaction (Unknown, Uncoded 06/09/18 09:58) Dry Mucus Membranes MRSA (sputum) - 04/25/16 & 05/23/16 MRSA PCR Screen POSITIVE - 04/25/2016 ESBL+E.Coli (blood-05/22/16) Objective Vital Signs 08/24/18 10:00 08/24/18 10:02 08/24/18 10:12 Temperature Pulse Rate 101 H 114 H 88 Respiratory Rate 24 37 H 24 Blood Pressure 178/103 H 118/53 L Pulse Oximetry 96 99 98 08/24/18 10:30 08/24/18 11:00 08/24/18 11:30 Temperature Pulse Rate 68 77 71 Respiratory Rate 19 21 18 Blood Pressure 113/63 122/64 121/63 Pulse Oximetry 100 99 99 08/24/18 12:00 08/24/18 12:30 08/24/18 13:00 Temperature 98.0 F Pulse Rate 71 60 63 Respiratory Rate 25 H 20 21 Blood Pressure 111/76 129/76 122/67 Pulse Oximetry 98 100 97 08/24/18 13:31 08/24/18 14:00 08/24/18 14:31 Temperature Pulse Rate 75 114 H 72 Respiratory Rate 25 H 44 H 23 Blood Pressure 149/71 H 175/83 H 125/65 Pulse Oximetry 100 47 L 99 08/24/18 15:00 08/24/18 15:01 08/24/18 15:13 Temperature Pulse Rate 79 77 72 Respiratory Rate 25 H 22 25 H Blood Pressure 140/60 129/75 Pulse Oximetry 98 97 99 08/24/18 15:30 08/24/18 16:00 08/24/18 16:32 Temperature Pulse Rate 70 84 Respiratory Rate 29 H 20 Blood Pressure 125/68 Pulse Oximetry 99 100 08/24/18 17:00 08/24/18 18:00 08/24/18 18:29 Temperature Pulse Rate 80 72 89 Respiratory Rate 19 24 26 H Blood Pressure 141/81 H Pulse Oximetry 100 99 99 08/24/18 18:30 08/24/18 19:00 08/24/18 20:00 Temperature Pulse Rate 96 H 108 H 115 H Respiratory Rate 32 H 39 H Blood Pressure 145/84 H 151/93 H Pulse Oximetry 99 92 L 08/24/18 21:25 08/25/18 08:00 08/25/18 08:46 Temperature 97.9 F Pulse Rate 58 L Respiratory Rate 22 Blood Pressure 97/55 L Pulse Oximetry 98 92 L 97 Intake & Output 08/24/18 08/25/18 08/25/18 18:59 06:59 18:59 Intake Total 2200 / 2200 2400 / 2400 Output Total 1500 / 1500 1800 / 1800 Balance 700 / 700 600 / 600 Weight 73 kg Intake: IV 2200 / 2200 2400 / 2400 NS Inj 1,000 ML @ 154 mls/hr IV 1999 / 1999 1999 / 1999 .CONT .Q6H30M [facility] Rx#:[id number] Zerbaxa Inj 1,500 MG In NS Inj 100 / 100 200 / 200 100 ML @ 100 mls/hr IV.SIG Q8H [facility] Rx#:[id number] KCl 20 mEq Premix Inj 20 meq In 100 / 100 100 / 100 100 ml @ 50 mls/hr IV.SIG Q2H PRN Rx#:[id number] Oral 0 / 0 Tube Feeding 0 / 0 Output: Urine Amount (Catheter) 1500 / 1500 1800 / 1800 Condom 1500 / 1500 1800 / 1800 Other: Date of Last Bowel Movement 08/24/18 08/24/18 # Bowel Movements 4 # Incontinent Bowel Movements 4 08/21/18 23:00 Blood - Peripheral Aerobic Blood Culture - Preliminary No growth in 3 days 08/21/18 23:00 Blood - Peripheral Anaerobic Blood Culture - Preliminary No growth in 3 days 08/21/18 23:00 Blood - Peripheral Aerobic Blood Culture - Preliminary Staphylococcus coag negative 08/21/18 23:00 Blood - Peripheral Anaerobic Blood Culture - Preliminary No growth in 3 days 08/22/18 12:30 Sputum - Tracheal Aspirate Gram Stain - Final 08/22/18 12:30 Sputum - Tracheal Aspirate Sputum Culture - Preliminary Pseudomonas species gram negative rods Lab - Hematology Results 08/24/18 08/25/18 04:20 04:10 WBC 3.3 L 4.0 RBC 3.42 L 3.55 L Hgb 10.8 L 11.2 L Hct 32.4 L 33.4 L MCV 94.7 94.0 MCH 31.4 31.4 MCHC 33.2 33.4 RDW 13.8 13.6 Plt Count 148 L 142 L MPV 9.6 10.0 Neut % (Auto) 35.6 47.3 Lymph % (Auto) 44.1 H 34.0 [place] % (Auto) 14.1 H 12.5 H Eos % (Auto) 5.6 H 5.6 H Baso % (Auto) 0.6 0.6 Neut # (Auto) 1.2 L 1.9 Lymph # (Auto) 1.4 1.3 [place] # (Auto) 0.5 0.5 Eos # (Auto) 0.2 0.2 Baso # (Auto) 0.0 0.0 WBC Differential . . Differential Comment Auto diff final Auto diff final Lab - Chemistry Results 08/23/18 08/23/18 08/24/18 11:43 17:08 01:49 Sodium Potassium Chloride Carbon Dioxide Anion Gap BUN Creatinine Estimated GFR POC Glucose 86 85 93 Random Glucose Hemoglobin A1c Calcium Phosphorus Magnesium Total Bilirubin AST ALT Alkaline Phosphatase Total Protein Albumin TSH Free T4 08/24/18 08/24/18 08/24/18 04:20 04:20 05:59 Sodium 145 Potassium 3.3 L Chloride 110 H Carbon Dioxide 27.1 Anion Gap 8 BUN 3 L Creatinine 0.64 Estimated GFR Greater than 89 POC Glucose 88 Random Glucose 92 Hemoglobin A1c 5.2 Calcium 7.6 L Phosphorus 3.8 D Magnesium 1.9 Total Bilirubin 0.3 AST 22 ALT 43 Alkaline Phosphatase 63 Total Protein 6.0 L Albumin 2.8 L TSH 0.964 Free T4 0.95 08/24/18 08/24/18 08/24/18 12:34 16:51 23:57 Sodium Potassium Chloride Carbon Dioxide Anion Gap BUN Creatinine Estimated GFR POC Glucose 88 83 79 Random Glucose Hemoglobin A1c Calcium Phosphorus Magnesium Total Bilirubin AST ALT Alkaline Phosphatase Total Protein Albumin TSH Free T4 08/25/18 04:10 Sodium 144 Potassium 3.3 L Chloride 110 H Carbon Dioxide 26.8 Anion Gap 7 BUN 3 L Creatinine 0.59 L Estimated GFR Greater than 89 POC Glucose Random Glucose 86 Hemoglobin A1c Calcium 7.9 L Phosphorus 3.1 Magnesium 2.0 Total Bilirubin 0.3 AST 21 ALT 40 Alkaline Phosphatase 69 Total Protein 6.1 L Albumin 2.9 L TSH Free T4 Imaging: ITS Impressions Chest X-Ray 08/21/18 22:44 CONCLUSION: Minimal density in the left midlung. Abdomen X-Ray 08/23/18 00:00 CONCLUSION: 1. GJ tube projects over the right abdomen. Contrast is identified within the gastric lumen. 2. Nonobstructive bowel gas pattern. No pneumoperitoneum. Gastrostomy Tube Placement 08/24/18 00:00 CONCLUSION: 1. Uncomplicated gastrojejunostomy tube replacement as above. Physical Exam: GENERAL: Awake, not interacting. He is on T-piece. Drooling a lot of clear oral secretions SKIN: Warm and dry. No generalized rash. HEAD: Atraumatic. Normocephalic. No temporal wasting, or tenderness. EYES: [place] conjunctiva. No petechia or hemorrhage. No scleral icterus. No injection or drainage. EARS, NOSE AND THROAT: Nose without bleeding or purulent nasal discharge. Mucous membranes pink and moist. NECK: Tracheostomy site looks ok. Has thick light yellow/marie secretions from his trach. CARDIOVASCULAR: Regular rate and rhythm. No murmurs, rubs or gallops heard RESPIRATORY: Decreased breath sounds at the bases, scattered rhonchi ABDOMEN: Soft, nondistended. PEG site looks ok. Bowel sounds present and normoactive. EXTREMITIES: No clubbing, cyanosis. Both feet plantar flexed. Well perfused and warm. NEUROLOGICAL: No interaction. Some spasticity of all extremities, posturing PSYCHIATRIC: Unable to assess : cath in place, urine looks clear LINE: No evidence of infection Assessment and Plan - Plan Impression Sepsis on presentation (fever, tachycardia, leukocytosis, elevated lactic acid, low BP) - [facility] resident - likely HCAP vs mucus plugging HCAP, mucus plugging One +BC with Coag Neg Staph Neutropenia, ?Zyvox Hx MDRO infections in the past Chronic vegetative state Renal insufficiency due to sepsis Recommendation Continue IV Zerbaxa - to cover MDRO GNR organisms Follow C/S and adjust Abx Monitor progress Pulmonary toilet Follow temps CXR
[2018-08-25] MEDS ORDERED: Potassium Phosphate Inj 30 MMOL in Sodium Chlor 0.9% Inj 250 ML IV.SIG PRN (10:37)
[2018-08-25] MEDS ORDERED: Potassium Chlor 20 mEq Premix 20 MEQ/100 ML PIGGYBACK IV.SIG PRN ×2 (10:37)
[2018-08-25] MEDS ORDERED: Magnesium Sulfate Inj 2 GM in Sodium Chlor 0.9% Inj 96 ML IV.SIG PRN (10:37)
[2018-08-25] MEDS ORDERED: Magnesium Oxide 400 MG Tablet PO PRN (10:37)
[2018-08-25] MEDS ORDERED: Potassium Phosphate 500 MG Soluble Tablet PO PRN ×2 (10:37)
[2018-08-25] MEDS ORDERED: Sodium Phosphate Inj 30 MMOL in Sodium Chlor 0.9% Inj 250 ML IV.SIG PRN (10:37)
[2018-08-25] MEDS ORDERED: Potassium Chlor 40 mEq Premix 40 MEQ/100 ML PIGGYBACK IV.SIG PRN ×2 (10:37)
[2018-08-25] MEDS ORDERED: Potassium Chloride 25 MEQ Effervescent Tablet PO PRN (10:37)
[2018-08-25] MEDS ORDERED: Magnesium Sulfate Inj 4 GM in Sodium Chlor 0.9% Inj 92 ML IV.SIG PRN (10:37)
--- NOTE | 2018-08-25 10:37 | P.PNIM ---
Subjective Interval history: 08/21: 33-year-old male presents from a nursing facility. He has a trach and PEG, he is bedbound and he seems to have constantly contracted extremities. He is well-known to the [facility] system. He is coming in tonight because he was coughing through his trach, and brown fluid was coming out possibly coffee- ground emesis as well as he was diaphoretic and febrile, possibly septic. The HPI is limited due to the fact that he is nonverbal and seems to be altered possibly due to sepsis at this time. 08/22: Remains encephalopathic. On trach collar. Tolerating PEG feeds. 08-23 TRANSFERRED TO OUR SERVICE TODAY HAD CENTRAL LINE PLACED LAST NIGHT IN GROIN SEEN BY ID-REMAINS ON ZERBAXA AND ZYVOX CONSULT VASCULAR ACCESS FOR PICC 08-24 G-J TUBE PULLED LAST NIGHT ACCIDENTALLY WILL HAVE IR REPLACE FEEDING TUBE KEPPRA 1000MG IV BID UNTIL CAN USE FEEDING TUB RADHAMES RN PT NONVERBAL 08-25 HAD G-J TUBE REPLACED BY IR FOR EGD LATER TODAY MAY NEED PICC LINE FOR ACCESS-VASCULAR ACCESS CONSULT RADHAMES RN PT REMAINS NONVERBAL NEEDS PICC LINE Physical Exam Vital signs: Vital Signs 08/24/18 10:30 08/24/18 11:00 08/24/18 11:30 Temperature Pulse Rate 68 77 71 Respiratory Rate 19 21 18 Blood Pressure 113/63 122/64 121/63 Pulse Oximetry 100 99 99 08/24/18 12:00 08/24/18 12:30 08/24/18 13:00 Temperature 98.0 F Pulse Rate 71 60 63 Respiratory Rate 25 H 20 21 Blood Pressure 111/76 129/76 122/67 Pulse Oximetry 98 100 97 08/24/18 13:31 08/24/18 14:00 08/24/18 14:31 Temperature Pulse Rate 75 114 H 72 Respiratory Rate 25 H 44 H 23 Blood Pressure 149/71 H 175/83 H 125/65 Pulse Oximetry 100 47 L 99 08/24/18 15:00 08/24/18 15:01 08/24/18 15:13 Temperature Pulse Rate 79 77 72 Respiratory Rate 25 H 22 25 H Blood Pressure 140/60 129/75 Pulse Oximetry 98 97 99 08/24/18 15:30 08/24/18 16:00 08/24/18 16:32 Temperature Pulse Rate 70 84 Respiratory Rate 29 H 20 Blood Pressure 125/68 Pulse Oximetry 99 100 08/24/18 17:00 08/24/18 18:00 08/24/18 18:29 Temperature Pulse Rate 80 72 89 Respiratory Rate 19 24 26 H Blood Pressure 141/81 H Pulse Oximetry 100 99 99 08/24/18 18:30 08/24/18 19:00 08/24/18 20:00 Temperature Pulse Rate 96 H 108 H 115 H Respiratory Rate 32 H 39 H Blood Pressure 145/84 H 151/93 H Pulse Oximetry 99 92 L 08/24/18 21:25 08/25/18 08:00 08/25/18 08:46 Temperature 97.9 F Pulse Rate 58 L Respiratory Rate 22 Blood Pressure 97/55 L Pulse Oximetry 98 92 L 97 Intake & Output 08/24/18 08/25/18 08/25/18 18:59 06:59 18:59 Intake Total 2200 / 2200 2400 / 2400 Output Total 1500 / 1500 1800 / 1800 Balance 700 / 700 600 / 600 Weight 73 kg Intake: IV 2200 / 2200 2400 / 2400 NS Inj 1,000 ML @ 154 mls/hr IV 1999 .CONT .Q6H30M [facility] Rx#:[id number] Zerbaxa Inj 1,500 MG In NS Inj 100 / 100 200 / 200 100 ML @ 100 mls/hr IV.SIG Q8H [facility] Rx#:[id number] KCl 20 mEq Premix Inj 20 meq In 100 / 100 100 / 100 100 ml @ 50 mls/hr IV.SIG Q2H PRN Rx#:[id number] Oral 0 / 0 Tube Feeding 0 / 0 Output: Urine Amount (Catheter) 1500 / 1500 1800 / 1800 Condom 1500 / 1500 1800 / 1800 Other: Date of Last Bowel Movement 08/24/18 08/24/18 # Bowel Movements 4 # Incontinent Bowel Movements 4 Narrative: Physical Examination GENERAL: Patient is a well-nourished, well-developed male, keeps eyes closed , not interacting, not in respiratory distress. He is on T-piece. Has thick light yellow/beige secretions from his trach SKIN: Warm and dry. No generalized rash, no ecchymoses and no evidence of embolic lesions. HEAD: Atraumatic. Normocephalic. No temporal wasting, or tenderness. EYES: [place] conjunctiva. No petechia or hemorrhage. No scleral icterus. No injection or drainage. EARS, NOSE AND THROAT: Nose without bleeding or purulent nasal discharge. Mucous membranes pink and moist. Unable to get good exam of his oropharynx NECK: Tracheostomy site looks ok. Has thick light yellow/marie secretions from his trach. CARDIOVASCULAR: Regular rate and rhythm. No murmurs, rubs or gallops heard RESPIRATORY: Decreased breath sounds charisse way[place] at the bases ABDOMEN: Soft, nondistended. NO PEG WAS PULLED Bowel sounds present and normoactive. EXTREMITIES: No clubbing, cyanosis. Both feet plantar flexed. Well perfused and warm. NEUROLOGICAL: Eyes remain closed, some withdrawal of feet when stimulated. No interaction. Some spasticity of all extremities PSYCHIATRIC: Unable to assess : cath in place, urine looks clear LINE: No evidence of infection IN GROIN - Urinary Catheter Management Indwelling Temp Sensing Catheter Cath placed during this visit: yes Reason for continuing: Terminally ill/Comfort care Insertion date: 08/21/18 Insertion time: 23:15 Condom Cath placed during this visit: no Results - Labs CBC & Chem 7: 08/25/18 04:10 08/25/18 04:10 Laboratory Results - last 24 hr 08/24/18 08/24/18 08/24/18 04:20 12:34 16:51 WBC RBC Hgb Hct MCV MCH MCHC RDW Plt Count MPV Neut % (Auto) Lymph % (Auto) [place] % (Auto) Eos % (Auto) Baso % (Auto) Neut # (Auto) Lymph # (Auto) [place] # (Auto) Eos # (Auto) Baso # (Auto) WBC Differential Differential Comment Sodium Potassium Chloride Carbon Dioxide Anion Gap BUN Creatinine Estimated GFR POC Glucose 88 83 Random Glucose Hemoglobin A1c 5.2 Calcium Phosphorus Magnesium Total Bilirubin AST ALT Alkaline Phosphatase Total Protein Albumin 08/24/18 08/25/18 08/25/18 23:57 04:10 04:10 WBC 4.0 RBC 3.55 L Hgb 11.2 L Hct 33.4 L MCV 94.0 MCH 31.4 MCHC 33.4 RDW 13.6 Plt Count 142 L MPV 10.0 Neut % (Auto) 47.3 Lymph % (Auto) 34.0 [place] % (Auto) 12.5 H Eos % (Auto) 5.6 H Baso % (Auto) 0.6 Neut # (Auto) 1.9 Lymph # (Auto) 1.3 [place] # (Auto) 0.5 Eos # (Auto) 0.2 Baso # (Auto) 0.0 WBC Differential . Differential Comment Auto diff final Sodium 144 Potassium 3.3 L Chloride 110 H Carbon Dioxide 26.8 Anion Gap 7 BUN 3 L Creatinine 0.59 L Estimated GFR Greater than 89 POC Glucose 79 Random Glucose 86 Hemoglobin A1c Calcium 7.9 L Phosphorus 3.1 Magnesium 2.0 Total Bilirubin 0.3 AST 21 ALT 40 Alkaline Phosphatase 69 Total Protein 6.1 L Albumin 2.9 L Microbiology 08/21/18 23:00 Blood - Peripheral Aerobic Blood Culture - Preliminary No growth in 3 days 08/21/18 23:00 Blood - Peripheral Anaerobic Blood Culture - Preliminary No growth in 3 days 08/21/18 23:00 Blood - Peripheral Aerobic Blood Culture - Preliminary Staphylococcus coag negative 08/21/18 23:00 Blood - Peripheral Anaerobic Blood Culture - Preliminary No growth in 3 days 08/22/18 12:30 Sputum - Tracheal Aspirate Gram Stain - Final 08/22/18 12:30 Sputum - Tracheal Aspirate Sputum Culture - Preliminary Pseudomonas species gram negative rods - Imaging Impressions Gastrostomy Tube Placement 08/24/18 00:00 CONCLUSION: 1. Uncomplicated gastrojejunostomy tube replacement as above. - Procedures FEMORAL CATHETER CENTRAL ACCESS ---- - Pre Procedure Diagnosis (1) Feeding tube dysfunction - Post Procedure Diagnosis (1) Feeding tube dysfunction - Procedure Information Procedure Date: 08/24/18 Supervising Radiologist: Ernst Goodman Jr, MD Proceduralist/Assist: Cory Clark Estimated blood loss (mL): 0 Anesthesia: Conscious Sedation - Plan of Activity Patient to Unit: Critical Care Patient Condition: Good See PACS Report for procedural detail/treatment. Feeding Tube Feeding Tube: Gastro/Jejunostomy Procedure: Replacement Icelandic Tube Size: 22 Findings: Original tube had fallen out. New GJ tube placed. In good position. OK to use. Documented By: Jr. Rex, Ernst BAEZA 08/24/18 [id number] Assessment and Plan - Plan Sepsis/SIRS -Broad-spectrum antibiotic -IV fluid hydration -Panculture -De-escalate per sensitivity ON ZERBAXA -- ZYVOX LOOKS LIKE STOPPED BY ID Coffee-ground emesis -Protonix IV twice daily -Monitor H&H -GI consultation- NO PROCEDURES AT THIS TIME Encephalopathy with contractures -Baclofen -Diazepam as needed Seizure disorder -Kejulianora WILL GIVE IV UNTIL CAN USE PEG AGAIN Diabetes mellitus -Insulin sliding scale DVT GI prophylaxis -Eliquis -Teds SCDs -Protonix IV twice daily AM LABS REMAINS NONVERBAL NO OTHER NEW ISSUES PER NURSING HAD G-J TUBE PULLED ACCIDENTALLY--REPLACED BY IR ON 08-24 FOR EGD TODAY WITH GI FOR PICC LINE TODAY WITH IR Code Status: FULL CODE Discussed Condition With: RNS Discharge Planning: ONCE CLEARED BY ID AND GI
[2018-08-25] MEDS ORDERED: *Heparin Central Flush 100 UNIT/ML 5 ML Vial PERIprocedural ONLY IV.FLUSH ONE (13:42)
[2018-08-25] MEDS ORDERED: Lidocaine 1%/Epinephrine 1:100,000 Inj 30 ML Vial ONE (13:43)
[2018-08-25] MEDS: Loratadine 10 MG Tablet G-TUBE SCH (15:27)
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
[2018-08-26] MEDS: Insulin NovoLOG Aspart Correctional Sugar Inj SQ SCH ×5 (00:25→23:57)
[2018-08-26] MEDS: Dextrose 5%/NaCl 0.45% Inj 1,000 ML IV.CONT SCH ×2 (02:58→18:36)
[2018-08-26] MEDS: SODIUM CHLOR 0.9% IV.SIG SCH ×2 (02:58→19:56)
[2018-08-26] MEDS: CEFTOLOZANE IV.SIG SCH ×2 (02:58→19:56)
[2018-08-26] MEDS: TAZOBACTAM IV.SIG SCH ×2 (02:58→19:56)
[2018-08-26] MEDS: Chlorhexidine Gluconate 2% 1 Pack (2 Cloths) TOPICAL SCH (04:18)
[2018-08-26 04:42] LABS: Baso % (Auto) 0.4 % (0.0-2.0); Eos # (Auto) 0.2 th/mm3 (0.0-0.4); Eos % (Auto) 4.5 % (0.0-4.0); Hematocrit 35.7 % (39.0-51.0); Hemoglobin 11.9 gm/dL (13.0-17.0); Lymph # (Auto) 1.3 th/mm3 (1.0-4.8); Lymph % (Auto) 26.2 % (9.0-44.0); Mean Corpuscular HGB Conc 33.4 % (32.0-36.0); Mean Corpuscular Hemoglobin 31.1 pg (27.0-34.0); Mean Platelet Volume 9.8 fL (7.0-11.0); Mono # (Auto) 0.7 th/mm3 (0.0-0.9); Mono % (Auto) 13.2 % (0.0-8.0); Neut # (Auto) 2.8 th/mm3 (1.8-7.7); Neut % (Auto) 55.7 % (16.0-70.0); Platelet Count 159 th/mm3 (150-450); Red Blood Count 3.84 mil/mm3 (4.50-5.90); Red Cell Distribution Width 13.7 % (11.6-17.2)
--- NOTE | 2018-08-26 04:47 | XR ---
EXAM DATE: 08/26/2018 12:00 AM EDT AGE/SEX: 33 years / Male INDICATIONS: Shortness of breath, possible pulmonary disease. CLINICAL DATA: This is the patient's subsequent encounter. Patient reports that signs and symptoms h ave been present for 4 - 6 days and indicates a pain score of Nonresponsive. MEDICAL/SURGICAL HISTORY: . Gastroesophageal reflux disease. Pancreatitis. Diabetes. Dyslipidem ia, HTN, Seizures, DVT, Anoxic brain damage . Tracheostomy. PEG tube. [place] [facility] [place]. . FINDINGS: There is tracheostomy tube in place. There is a right subclavian line with tip overlying the SVC. The heart size is enlarged. There is some mild patchy density seen at the bases. The costophrenic angles are clear. CONCLUSION: Mild consolidation or atelectasis at the bases. Electronically signed by: Orlando Gillette MD 08/26/2018 4:46 AM EDT
[2018-08-26 04:57] LABS: Anion Gap 8 meq/L (5-15); Aspartate Aminotransferase 16 U/L (15-37); Blood Urea Nitrogen 3 mg/dL (7-18); Calcium 8.3 mg/dL (8.5-10.1); Carbon Dioxide 27.9 meq/L (21.0-32.0); Chloride 108 meq/L (98-107); Glomerular Filtration Rate Greater Than 89 mL/min (>89); Glucose,Random 97 mg/dL (74-106); Potassium 3.6 meq/L (3.5-5.1); Sodium 144 meq/L (136-145)
[2018-08-26 05:00] LABS: Alanine Aminotransferase 38 U/L (12-78); Alkaline Phosphatase 74 U/L (45-117); Phosphorus 3.2 mg/dL (2.5-4.9); Total Protein 6.6 g/dL (6.4-8.2)
[2018-08-26] MEDS: Pantoprazole Inj 40 MG Vial IV.PUSH SCH ×2 (05:54→18:36)
[2018-08-26] MEDS: Loratadine 10 MG Tablet G-TUBE SCH (08:29)
[2018-08-26] MEDS: Senna/Docusate Sodium 8.6/50 MG Tablet PO SCH ×2 (08:30→21:58)
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
--- NOTE | 2018-08-26 11:55 | P.PNID ---
Subjective Remarks: Patient is a 33-year-old male, a intermediate resident, in a chronic vegetative state, has a trach in place, and PEG, brought into the hospital after he was noted to be coughing up some brown fluid from his tracheostomy. It was felt that it could possibly be coffee-ground emesis. He was also diaphoretic and febrile. In the ED he had a temperature of 102.8. He was initially hypotensive which improved with fluid resuscitation. Chest x-ray showed minimal infiltrate on the left side. His creatinine was elevated at 1.4. White count 13,000. Lactic acid was 8. Patient was admitted as sepsis. Infectious disease consultation has been requested to evaluate the patient. Patient has had multiple admissions to the hospital for similar complaints. He has had infections with multidrug-resistant organisms including MDR Pseudomonas , ESBL positive organisms. Notes reviewed Temps normal BP ok On T-piece Has a central line RSC placed by IR 1024 Sputum with PSAE and Providencia Had replacement of his GJ tube 08/24 Has a lot of oral secretions WBC now normal Antibiotics: Zerbaxa Lines: RSC central line Past Medical History: Tracheostomy dependent (Acute) GERD (gastroesophageal reflux disease) (Acute) Pancreatitis (Acute) Diabetes mellitus (Acute) Dyslipidemia (Acute) HTN (hypertension) (Acute) Seizure (Acute) DVT (deep venous thrombosis) (Acute) Anoxic brain damage (Acute) MDRO (multiple drug resistant organisms) resistance Multiple drug resistant organism (MDRO) culture positive S/P PEG Allergies/Adverse Reactions: Allergies haloperidol Adverse Reaction (Severe, Verified 06/09/18 09:58) Seizures *MDRO Multi-Drug Resistant Organism Adverse Reaction (Unknown, Uncoded 06/09/18 09:58) Dry Mucus Membranes MRSA (sputum) - 04/25/16 & 05/23/16 MRSA PCR Screen POSITIVE - 04/25/2016 ESBL+E.Coli (blood-05/22/16) Objective Vital Signs 08/25/18 12:00 08/25/18 16:00 08/25/18 16:30 Temperature 98.7 F Pulse Rate 74 78 Respiratory Rate 17 0 L Blood Pressure 116/56 L 144/69 H 130/60 Pulse Oximetry 97 96 08/25/18 17:00 08/25/18 17:30 08/25/18 18:00 Temperature Pulse Rate 69 59 L 54 L Respiratory Rate 19 20 2 L Blood Pressure 110/58 L 108/56 L 111/58 L Pulse Oximetry 95 97 97 08/25/18 18:30 08/25/18 19:00 08/25/18 19:31 Temperature Pulse Rate 53 L 51 L 49 L Respiratory Rate 5 L 11 L 5 L Blood Pressure 111/62 101/56 L 127/60 Pulse Oximetry 98 98 100 08/25/18 20:00 08/25/18 20:30 08/25/18 21:00 Temperature 98.8 F Pulse Rate 50 L 59 L 54 L Respiratory Rate 15 16 19 Blood Pressure 113/70 116/64 126/60 Pulse Oximetry 100 100 99 08/25/18 21:21 08/25/18 21:30 08/25/18 22:00 Temperature Pulse Rate 52 L 56 L Respiratory Rate 12 14 Blood Pressure 117/64 114/67 Pulse Oximetry 99 100 100 08/25/18 22:30 08/25/18 23:00 08/25/18 23:30 Temperature Pulse Rate 66 52 L 76 Respiratory Rate 22 23 19 Blood Pressure 131/60 120/78 136/80 Pulse Oximetry 94 L 97 97 08/26/18 00:00 08/26/18 00:31 08/26/18 01:00 Temperature 98.7 F Pulse Rate 58 L 77 125 H Respiratory Rate 5 L 27 H 42 H Blood Pressure 106/64 171/86 H Pulse Oximetry 94 L 97 97 08/26/18 01:01 08/26/18 01:31 08/26/18 02:00 Temperature Pulse Rate 134 H 59 L 76 Respiratory Rate 40 H 4 L 18 Blood Pressure 199/107 H 109/52 L 120/75 Pulse Oximetry 96 94 L 98 08/26/18 02:30 08/26/18 03:00 08/26/18 03:30 Temperature Pulse Rate 53 L 53 L 83 Respiratory Rate 22 22 26 H Blood Pressure 102/59 L 99/57 L 136/65 Pulse Oximetry 100 100 100 08/26/18 04:00 08/26/18 04:30 08/26/18 05:00 Temperature 99.2 F Pulse Rate 74 76 54 L Respiratory Rate 25 H 25 H 22 Blood Pressure 146/64 H 136/62 Pulse Oximetry 100 93 L 100 08/26/18 05:01 08/26/18 05:30 08/26/18 06:00 Temperature Pulse Rate 56 L 76 156 H Respiratory Rate 23 23 45 H Blood Pressure 106/50 L 115/73 Pulse Oximetry 100 100 97 08/26/18 06:04 08/26/18 06:30 08/26/18 07:00 Temperature Pulse Rate 93 H 80 72 Respiratory Rate 34 H 10 L 9 L Blood Pressure 131/68 118/56 L 118/59 L Pulse Oximetry 97 98 100 08/26/18 07:30 08/26/18 08:00 08/26/18 08:30 Temperature 99.8 F H Pulse Rate 61 65 64 Respiratory Rate 8 L 6 L 21 Blood Pressure 102/50 L 112/63 123/63 Pulse Oximetry 100 99 97 08/26/18 09:00 08/26/18 09:01 08/26/18 09:30 Temperature Pulse Rate 60 76 58 L Respiratory Rate 10 L 11 L 7 L Blood Pressure 111/56 L 101/54 L Pulse Oximetry 96 98 97 08/26/18 10:00 08/26/18 10:31 08/26/18 11:00 Temperature Pulse Rate 79 49 L 53 L Respiratory Rate 28 H 15 15 Blood Pressure 102/71 111/62 99/52 L Pulse Oximetry 100 100 100 Intake & Output 08/25/18 08/26/18 08/26/18 18:59 06:59 18:59 Intake Total 1100 / 1100 1320 / 1320 Output Total 1999 1200 / 1200 Balance -900 / -900 120 / 120 Weight 75.5 kg Intake: IV 1100 / 1100 1200 / 1200 D5W/1/2 NS Inj 1,000 ML @ 100 1000 / 1000 1000 / 1000 mls/hr IV.CONT .Q10H SHAYNA Rx#: [id number] Zerbaxa Inj 1,500 MG In NS Inj 100 / 100 200 / 200 100 ML @ 100 mls/hr IV.SIG Q8H SHAYNA Rx#:[id number] Tube Feeding 60 / 60 Water Bolus Amount 60 / 60 Output: Urine 1200 / 1200 Urine Amount (Catheter) 1999 Condom 1999 Other: Date of Last Bowel Movement 08/25/18 08/25/18 08/26/18 # Incontinent Bowel Movements 1 08/21/18 23:00 Blood - Peripheral Aerobic Blood Culture - Final No growth in 5 days 08/21/18 23:00 Blood - Peripheral Anaerobic Blood Culture - Final No growth in 5 days 08/21/18 23:00 Blood - Peripheral Aerobic Blood Culture - Final Staphylococcus haemolyticus 08/21/18 23:00 Blood - Peripheral Anaerobic Blood Culture - Final No growth in 5 days 08/22/18 12:30 Sputum - Tracheal Aspirate Gram Stain - Final 08/22/18 12:30 Sputum - Tracheal Aspirate Sputum Culture - Final Pseudomonas aeruginosa Providencia stuartii Lab - Hematology Results 08/25/18 08/26/18 04:10 04:00 WBC 4.0 5.0 RBC 3.55 L 3.84 L Hgb 11.2 L 11.9 L Hct 33.4 L 35.7 L MCV 94.0 93.0 MCH 31.4 31.1 MCHC 33.4 33.4 RDW 13.6 13.7 Plt Count 142 L 159 MPV 10.0 9.8 Neut % (Auto) 47.3 55.7 Lymph % (Auto) 34.0 26.2 [place] % (Auto) 12.5 H 13.2 H Eos % (Auto) 5.6 H 4.5 H Baso % (Auto) 0.6 0.4 Neut # (Auto) 1.9 2.8 Lymph # (Auto) 1.3 1.3 [place] # (Auto) 0.5 0.7 Eos # (Auto) 0.2 0.2 Baso # (Auto) 0.0 0.0 WBC Differential . . Differential Comment Auto diff final Auto diff final Lab - Chemistry Results 08/24/18 08/24/18 08/24/18 04:20 12:34 16:51 Sodium Potassium Chloride Carbon Dioxide Anion Gap BUN Creatinine Estimated GFR POC Glucose 88 83 Random Glucose Hemoglobin A1c 5.2 Calcium Phosphorus Magnesium Total Bilirubin AST ALT Alkaline Phosphatase Total Protein Albumin 08/24/18 08/25/18 08/25/18 23:57 04:10 12:00 Sodium 144 Potassium 3.3 L Chloride 110 H Carbon Dioxide 26.8 Anion Gap 7 BUN 3 L Creatinine 0.59 L Estimated GFR Greater than 89 POC Glucose 79 101 Random Glucose 86 Hemoglobin A1c Calcium 7.9 L Phosphorus 3.1 Magnesium 2.0 Total Bilirubin 0.3 AST 21 ALT 40 Alkaline Phosphatase 69 Total Protein 6.1 L Albumin 2.9 L 08/25/18 08/26/18 08/26/18 17:33 00:11 04:00 Sodium 144 Potassium 3.6 Chloride 108 H Carbon Dioxide 27.9 Anion Gap 8 BUN 3 L Creatinine 0.72 Estimated GFR Greater than 89 POC Glucose 105 110 Random Glucose 97 Hemoglobin A1c Calcium 8.3 L Phosphorus 3.2 Magnesium 2.0 Total Bilirubin 0.3 AST 16 ALT 38 Alkaline Phosphatase 74 Total Protein 6.6 Albumin 3.0 L Imaging: ITS Impressions Abdomen X-Ray 08/23/18 00:00 CONCLUSION: 1. GJ tube projects over the right abdomen. Contrast is identified within the gastric lumen. 2. Nonobstructive bowel gas pattern. No pneumoperitoneum. Gastrostomy Tube Placement 08/24/18 00:00 CONCLUSION: 1. Uncomplicated gastrojejunostomy tube replacement as above. Central Venous Line 08/25/18 00:00 CONCLUSION: 1. Uncomplicated central venous Power PICC line placement. 2. The PICC line can be used immediately. 3. Sutures can be removed in 10 days to 2 weeks. Chest X-Ray 08/26/18 00:00 CONCLUSION: Mild consolidation or atelectasis at the bases. Physical Exam: GENERAL: Awake, not interacting. He is on T-piece. SKIN: Warm and dry. No generalized rash. HEAD: Atraumatic. Normocephalic. No temporal wasting, or tenderness. EYES: [place] conjunctiva. No petechia or hemorrhage. No scleral icterus. No injection or drainage. EARS, NOSE AND THROAT: Nose without bleeding or purulent nasal discharge. Mucous membranes pink and moist. NECK: Tracheostomy site looks ok. Has thick light yellow/marie secretions from his trach. CARDIOVASCULAR: Regular rate and rhythm. No murmurs, rubs or gallops heard RESPIRATORY: Decreased breath sounds at the bases, scattered rhonchi ABDOMEN: Soft, nondistended. PEG site looks ok. Bowel sounds present and normoactive. EXTREMITIES: No clubbing, cyanosis. Both feet plantar flexed. Well perfused and warm. NEUROLOGICAL: No interaction. Some spasticity of all extremities, posturing PSYCHIATRIC: Unable to assess : condom cath in place, urine looks clear LINE: No evidence of infection Assessment and Plan - Plan Impression Sepsis on presentation (fever, tachycardia, leukocytosis, elevated lactic acid, low BP) - [facility] resident - likely HCAP vs mucus plugging HCAP, mucus plugging One +BC with Coag Neg Staph Neutropenia, ?Zyvox Hx MDRO infections in the past Chronic vegetative state Renal insufficiency due to sepsis Recommendation Change to cefepime and Bactrim Monitor progress Pulmonary toilet Follow temps
[2018-08-26] MEDS: LORazepam 0.5 MG Tablet G-TUBE PRN (12:43)
[2018-08-26] MEDS: Sulfamethoxazole/Trimethoprim 400/80 MG Tablet PO SCH ×2 (14:00→21:07)
--- NOTE | 2018-08-26 14:05 | P.PCN ---
Date of procedure: 08/26/18 Pre-op diagnosis: Coffee-ground emesis Procedure: PROCEDURE PERFORMED EGD PROCEDURE: The procedure, risks and benefits were discussed with Patient/POA and informed consent was obtained. Anesthesia sedated Patient with Diprivan. Patient was placed in the left lateral decubitus position. EGD: The Pentax videoscope was introduced through the oropharynx and advanced to the second portion of the duodenum under direct visualization. Retroflexion was performed in the stomach. FINDINGS: The esophagus this was normal The stomach there was evidence of a GJ tube otherwise mucosa unremarkable and within normal limits no blood or bleeding The duodenum although evaluation slightly limited by the presence of the J-tube but basically unremarkable with no evidence of blood or bleeding ESTIMATED BLOOD LOSS: None SPECIMENS REMOVED: None COMPLICATIONS: None IMPRESSION: Unremarkable EGD PLAN: Continue with current supportive care Monitor labs and transfuse as needed Reconsult for any worsening anemia For now we will sign off Anesthesia: SOFIA Surgeon: Miguel Barrios Condition: stable Disposition: no change
[2018-08-27] MEDS: Dextrose 5%/NaCl 0.45% Inj 1,000 ML IV.CONT SCH ×3 (04:43→18:54)
[2018-08-27] MEDS: Pantoprazole Inj 40 MG Vial IV.PUSH SCH ×2 (05:29→18:55)
[2018-08-27 06:14] LABS: Baso % (Auto) 0.7 % (0.0-2.0); Eos # (Auto) 0.2 th/mm3 (0.0-0.4); Eos % (Auto) 5.3 % (0.0-4.0); Hematocrit 38.1 % (39.0-51.0); Hemoglobin 12.7 gm/dL (13.0-17.0); Lymph # (Auto) 1.4 th/mm3 (1.0-4.8); Lymph % (Auto) 33.9 % (9.0-44.0); Mean Corpuscular HGB Conc 33.2 % (32.0-36.0); Mean Corpuscular Hemoglobin 31.2 pg (27.0-34.0); Mean Corpuscular Volume 93.8 fL (80.0-100.0); Mean Platelet Volume 10.4 fL (7.0-11.0); Mono # (Auto) 0.7 th/mm3 (0.0-0.9); Neut # (Auto) 1.9 th/mm3 (1.8-7.7); Neut % (Auto) 44.1 % (16.0-70.0); Platelet Count 180 th/mm3 (150-450); Red Blood Count 4.07 mil/mm3 (4.50-5.90); Red Cell Distribution Width 14.1 % (11.6-17.2); White Blood Count 4.2 th/mm3 (4.0-11.0)
[2018-08-27 06:45] LABS: Alanine Aminotransferase 37 U/L (12-78); Albumin 3.2 g/dL (3.4-5.0); Alkaline Phosphatase 79 U/L (45-117); Anion Gap 8 meq/L (5-15); Aspartate Aminotransferase 15 U/L (15-37); Blood Urea Nitrogen 3 mg/dL (7-18); Calcium 8.9 mg/dL (8.5-10.1); Carbon Dioxide 29.4 meq/L (21.0-32.0); Chloride 109 meq/L (98-107); Glomerular Filtration Rate Greater Than 89 mL/min (>89); Glucose,Random 80 mg/dL (74-106); Magnesium 2.5 mg/dL (1.5-2.5); Phosphorus 4.5 mg/dL (2.5-4.9); Potassium 3.6 meq/L (3.5-5.1); Sodium 146 meq/L (136-145); Total Protein 7.1 g/dL (6.4-8.2)
[2018-08-27] MEDS: Insulin NovoLOG Aspart Correctional Sugar Inj SQ SCH ×4 (06:58→23:58)
[2018-08-27] MEDS: Sulfamethoxazole/Trimethoprim 400/80 MG Tablet PO SCH ×2 (08:14→20:13)
[2018-08-27] MEDS: Loratadine 10 MG Tablet G-TUBE SCH (08:14)
[2018-08-27] MEDS: Senna/Docusate Sodium 8.6/50 MG Tablet PO SCH ×2 (08:15→20:14)
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
--- NOTE | 2018-08-27 14:15 | P.PNID ---
Subjective Remarks: Patient is a 33-year-old male, a [facility], in a chronic vegetative state, has a trach in place, and PEG, brought into the hospital after he was noted to be coughing up some brown fluid from his tracheostomy. It was felt that it could possibly be coffee-ground emesis. He was also diaphoretic and febrile. In the ED he had a temperature of 102.8. He was initially hypotensive which improved with fluid resuscitation. Chest x-ray showed minimal infiltrate on the left side. His creatinine was elevated at 1.4. White count 13,000. Lactic acid was 8. Patient was admitted as sepsis. Infectious disease consultation has been requested to evaluate the patient. Patient has had multiple admissions to the hospital for similar complaints. He has had infections with multidrug-resistant organisms including MDR Pseudomonas , ESBL positive organisms. Notes reviewed D/W RN Temps low grade overnight BP ok On T-piece EGD report reviewed Has a central line RSC placed by IR 08/25 Sputum with PSAE and Providencia Had replacement of his GJ tube 08/24 Has a lot of oral secretions WBC now normal CXR stable atelectasis For transfer out of ICU - waiting for a bed Antibiotics: Cefepime bactrim Lines: RSC central line - 08/25 Past Medical History: Tracheostomy dependent (Acute) GERD (gastroesophageal reflux disease) (Acute) Pancreatitis (Acute) Diabetes mellitus (Acute) Dyslipidemia (Acute) HTN (hypertension) (Acute) Seizure (Acute) DVT (deep venous thrombosis) (Acute) Anoxic brain damage (Acute) MDRO (multiple drug resistant organisms) resistance Multiple drug resistant organism (MDRO) culture positive S/P PEG Allergies/Adverse Reactions: Allergies haloperidol Adverse Reaction (Severe, Verified 06/09/18 09:58) Seizures *MDRO Multi-Drug Resistant Organism Adverse Reaction (Unknown, Uncoded 06/09/18 09:58) Dry Mucus Membranes MRSA (sputum) - 04/25/16 & 05/23/16 MRSA PCR Screen POSITIVE - 04/25/2016 ESBL+E.Coli (blood-05/22/16) Objective Vital Signs 08/26/18 14:21 08/26/18 14:22 08/26/18 14:30 Temperature Pulse Rate 60 58 L 61 Respiratory Rate 25 H 18 Blood Pressure 120/68 125/74 Pulse Oximetry 97 100 100 08/26/18 15:00 10/25/18 15:01 08/26/18 15:31 Temperature Pulse Rate 51 L 58 L 61 Respiratory Rate 12 23 20 Blood Pressure 127/66 146/71 H Pulse Oximetry 98 99 100 08/26/18 16:00 08/26/18 16:01 08/26/18 16:30 Temperature Pulse Rate 60 67 57 L Respiratory Rate 17 18 10 L Blood Pressure 123/64 127/71 Pulse Oximetry 100 99 100 08/26/18 17:00 08/26/18 17:30 08/26/18 18:00 Temperature Pulse Rate 53 L 51 L 48 L Respiratory Rate 11 L 6 L 2 L Blood Pressure 135/86 118/57 L 106/58 L Pulse Oximetry 100 100 100 08/26/18 18:30 08/26/18 19:00 08/26/18 19:01 Temperature Pulse Rate 111 H 58 L 56 L Respiratory Rate 32 H 9 L 11 L Blood Pressure 172/97 H 123/60 Pulse Oximetry 81 L 100 100 08/26/18 19:31 08/26/18 19:55 08/26/18 20:00 Temperature Pulse Rate 79 61 Respiratory Rate 29 H 22 Blood Pressure 147/94 H 145/63 H Pulse Oximetry 100 100 100 08/26/18 20:30 08/26/18 21:00 08/26/18 21:31 Temperature Pulse Rate 65 87 63 Respiratory Rate 8 L 33 H 11 L Blood Pressure 123/56 L 159/74 H 132/61 Pulse Oximetry 100 99 98 08/26/18 22:00 08/26/18 22:30 08/26/18 23:00 Temperature Pulse Rate 62 67 64 Respiratory Rate 6 L 20 18 Blood Pressure 124/58 L 122/57 L 109/57 L Pulse Oximetry 98 100 99 08/26/18 23:31 08/27/18 00:00 08/27/18 00:01 Temperature 100.1 F H Pulse Rate 55 L 122 H 122 H Respiratory Rate 27 H 41 H 38 H Blood Pressure 150/65 H 201/93 H Pulse Oximetry 99 100 100 08/27/18 00:07 08/27/18 00:30 08/27/18 01:00 Temperature Pulse Rate 80 59 L 57 L Respiratory Rate 22 6 L 15 Blood Pressure 125/58 L 99/54 L 104/62 Pulse Oximetry 98 97 97 08/27/18 01:30 08/27/18 02:00 08/27/18 02:30 Temperature Pulse Rate 60 64 55 L Respiratory Rate 16 27 H 20 Blood Pressure 103/67 111/65 107/68 Pulse Oximetry 99 100 100 08/27/18 03:00 08/27/18 03:30 08/27/18 04:01 Temperature 99.9 F H Pulse Rate 58 L 58 L 74 Respiratory Rate 24 27 H 28 H Blood Pressure 116/60 122/58 L 147/72 H Pulse Oximetry 100 100 100 08/27/18 04:30 08/27/18 04:31 08/27/18 04:32 Temperature Pulse Rate 82 80 Respiratory Rate 27 H 24 Blood Pressure 125/58 L Pulse Oximetry 99 100 08/27/18 05:00 08/27/18 05:01 08/27/18 05:30 Temperature Pulse Rate 112 H 101 H 113 H Respiratory Rate 40 H 34 H 41 H Blood Pressure 146/76 H 144/79 H Pulse Oximetry 96 98 97 08/27/18 06:00 08/27/18 06:01 08/27/18 06:30 Temperature Pulse Rate 67 64 64 Respiratory Rate 5 L 5 L 30 H Blood Pressure 120/53 L 114/62 Pulse Oximetry 98 98 98 08/27/18 07:00 08/27/18 07:30 08/27/18 08:00 Temperature 98.8 F Pulse Rate 69 60 60 Respiratory Rate 21 27 H 29 H Blood Pressure 125/72 123/71 121/74 Pulse Oximetry 100 100 100 Intake & Output 08/26/18 08/27/18 08/27/18 18:59 06:59 18:59 Intake Total 1357 / 1357 1714 / 1714 Output Total 1900 / 1900 1100 / 1100 Balance -543 / -543 614 / 614 Weight 68 kg Intake: IV 1100 / 1100 1200 / 1200 D5W/1/2 NS Inj 1,000 ML @ 100 1000 / 1000 1000 / 1000 mls/hr IV.CONT .Q10H SHAYNA Rx#: [id number] Maxipime Inj 2,000 MG In NS Inj 100 / 100 200 / 200 100 ML @ 200 mls/hr IV.SIG Q8H SHAYNA Rx#:[id number] Tube Feeding 57 / 57 314 / 314 Water Bolus Amount 200 / 200 Anesthesia Amount 200 / 200 Output: Urine 1100 / 1100 Urine Amount (Catheter) 1900 / 1900 Condom 1900 / 1900 Other: Date of Last Bowel Movement 08/26/18 08/26/18 08/26/18 # Incontinent Bowel Movements 1 1 08/21/18 23:00 Blood - Peripheral Aerobic Blood Culture - Final No growth in 5 days 08/21/18 23:00 Blood - Peripheral Anaerobic Blood Culture - Final No growth in 5 days 08/21/18 23:00 Blood - Peripheral Aerobic Blood Culture - Final Staphylococcus haemolyticus 08/21/18 23:00 Blood - Peripheral Anaerobic Blood Culture - Final No growth in 5 days 08/22/18 12:30 Sputum - Tracheal Aspirate Gram Stain - Final 08/22/18 12:30 Sputum - Tracheal Aspirate Sputum Culture - Final Pseudomonas aeruginosa Providencia stuartii Lab - Hematology Results 08/26/18 08/27/18 04:00 03:55 WBC 5.0 4.2 RBC 3.84 L 4.07 L Hgb 11.9 L 12.7 L Hct 35.7 L 38.1 L MCV 93.0 93.8 MCH 31.1 31.2 MCHC 33.4 33.2 RDW 13.7 14.1 Plt Count 159 180 MPV 9.8 10.4 Neut % (Auto) 55.7 44.1 Lymph % (Auto) 26.2 33.9 [place] % (Auto) 13.2 H 16.0 H Eos % (Auto) 4.5 H 5.3 H Baso % (Auto) 0.4 0.7 Neut # (Auto) 2.8 1.9 Lymph # (Auto) 1.3 1.4 [place] # (Auto) 0.7 0.7 Eos # (Auto) 0.2 0.2 Baso # (Auto) 0.0 0.0 WBC Differential . . Differential Comment Auto diff final Auto diff final Lab - Chemistry Results 08/25/18 08/26/18 08/26/18 17:33 00:11 04:00 Sodium 144 Potassium 3.6 Chloride 108 H Carbon Dioxide 27.9 Anion Gap 8 BUN 3 L Creatinine 0.72 Estimated GFR Greater than 89 POC Glucose 105 110 Random Glucose 97 Calcium 8.3 L Phosphorus 3.2 Magnesium 2.0 Total Bilirubin 0.3 AST 16 ALT 38 Alkaline Phosphatase 74 Total Protein 6.6 Albumin 3.0 L 08/26/18 08/26/18 08/26/18 12:09 16:35 23:49 Sodium Potassium Chloride Carbon Dioxide Anion Gap BUN Creatinine Estimated GFR POC Glucose 87 72 99 Random Glucose Calcium Phosphorus Magnesium Total Bilirubin AST ALT Alkaline Phosphatase Total Protein Albumin 08/27/18 08/27/18 08/27/18 03:55 06:05 13:27 Sodium 146 H Potassium 3.6 Chloride 109 H Carbon Dioxide 29.4 Anion Gap 8 BUN 3 L Creatinine 0.70 Estimated GFR Greater than 89 POC Glucose 120 H 84 Random Glucose 80 Calcium 8.9 Phosphorus 4.5 D Magnesium 2.5 Total Bilirubin 0.2 AST 15 ALT 37 Alkaline Phosphatase 79 Total Protein 7.1 Albumin 3.2 L Imaging: ITS Impressions Abdomen X-Ray 08/23/18 00:00 CONCLUSION: 1. GJ tube projects over the right abdomen. Contrast is identified within the gastric lumen. 2. Nonobstructive bowel gas pattern. No pneumoperitoneum. Gastrostomy Tube Placement 08/24/18 00:00 CONCLUSION: 1. Uncomplicated gastrojejunostomy tube replacement as above. Central Venous Line 08/25/18 00:00 CONCLUSION: 1. Uncomplicated central venous Power PICC line placement. 2. The PICC line can be used immediately. 3. Sutures can be removed in 10 days to 2 weeks. Chest X-Ray 08/26/18 00:00 CONCLUSION: Mild consolidation or atelectasis at the bases. Physical Exam: GENERAL: Awake, not interacting. He is on T-piece. SKIN: Warm and dry. No generalized rash. HEAD: Atraumatic. Normocephalic. No temporal wasting, or tenderness. EYES: [place] conjunctiva. No petechia or hemorrhage. No scleral icterus. No injection or drainage. EARS, NOSE AND THROAT: Nose without bleeding or purulent nasal discharge. Mucous membranes pink and moist. NECK: Tracheostomy site looks ok. Has thick light yellow/marie secretions from his trach. CARDIOVASCULAR: Regular rate and rhythm. No murmurs, rubs or gallops heard RESPIRATORY: Decreased breath sounds at the bases, scattered rhonchi ABDOMEN: Soft, nondistended. PEG site looks ok. Bowel sounds present and normoactive. EXTREMITIES: No clubbing, cyanosis. Both feet plantar flexed. Well perfused and warm. NEUROLOGICAL: No interaction. Some spasticity of all extremities, posturing PSYCHIATRIC: Unable to assess : condom cath in place, urine looks clear LINE: No evidence of infection Assessment and Plan - Plan Impression Sepsis on presentation (fever, tachycardia, leukocytosis, elevated lactic acid, low BP) - [facility] resident - likely HCAP vs mucus plugging HCAP, mucus plugging One +BC with Coag Neg Staph Neutropenia, ?Zyvox Hx MDRO infections in the past Chronic vegetative state Renal insufficiency due to sepsis Recommendation Continue cefepime and Bactrim - give at least 7 days - end date ordered in [facility] Monitor progress Pulmonary toilet Follow temps D/W RN
[2018-08-27] MEDS: LORazepam 0.5 MG Tablet G-TUBE PRN (15:12)
[2018-08-27] MEDS: HYDROmorphone PF Inj 2 MG/ML Vial IV.PUSH PRN (16:32)
[2018-08-28] MEDS: Dextrose 5%/NaCl 0.45% Inj 1,000 ML IV.CONT SCH (03:36)
[2018-08-28 04:17] LABS: Baso % (Auto) 0.6 % (0.0-2.0); Eos # (Auto) 0.3 th/mm3 (0.0-0.4); Eos % (Auto) 8.5 % (0.0-4.0); Hemoglobin 11.3 gm/dL (13.0-17.0); Lymph % (Auto) 31.1 % (9.0-44.0); Mean Corpuscular HGB Conc 33.3 % (32.0-36.0); Mean Corpuscular Hemoglobin 31.2 pg (27.0-34.0); Mean Corpuscular Volume 93.8 fL (80.0-100.0); Mean Platelet Volume 10.1 fL (7.0-11.0); Mono # (Auto) 0.5 th/mm3 (0.0-0.9); Mono % (Auto) 15.5 % (0.0-8.0); Neut # (Auto) 1.4 th/mm3 (1.8-7.7); Neut % (Auto) 44.3 % (16.0-70.0); Platelet Count 152 th/mm3 (150-450); Red Blood Count 3.63 mil/mm3 (4.50-5.90); Red Cell Distribution Width 14.1 % (11.6-17.2); White Blood Count 3.2 th/mm3 (4.0-11.0)
[2018-08-28 04:26] LABS: Albumin 2.8 g/dL (3.4-5.0); Anion Gap 6 meq/L (5-15); Aspartate Aminotransferase 11 U/L (15-37); Blood Urea Nitrogen 6 mg/dL (7-18); Calcium 7.7 mg/dL (8.5-10.1); Chloride 107 meq/L (98-107); Glomerular Filtration Rate Greater Than 89 mL/min (>89); Glucose,Random 95 mg/dL (74-106); Magnesium 2.2 mg/dL (1.5-2.5); Potassium 3.6 meq/L (3.5-5.1); Sodium 141 meq/L (136-145)
[2018-08-28 04:27] LABS: Alanine Aminotransferase 28 U/L (12-78)
[2018-08-28 04:29] LABS: Alkaline Phosphatase 70 U/L (45-117); Phosphorus 3.2 mg/dL (2.5-4.9); Total Protein 6.4 g/dL (6.4-8.2)
[2018-08-28] MEDS: Insulin NovoLOG Aspart Correctional Sugar Inj SQ SCH ×4 (05:34→23:50)
[2018-08-28] MEDS: Pantoprazole Inj 40 MG Vial IV.PUSH SCH ×2 (05:34→17:50)
[2018-08-28] MEDS: Sulfamethoxazole/Trimethoprim 400/80 MG Tablet PO SCH ×2 (09:40→20:43)
[2018-08-28] MEDS: Loratadine 10 MG Tablet G-TUBE SCH (09:41)
[2018-08-28] MEDS: Senna/Docusate Sodium 8.6/50 MG Tablet PO SCH ×2 (09:42→21:53)
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
[2018-08-29] MEDS: Pantoprazole Inj 40 MG Vial IV.PUSH SCH ×2 (06:15→17:34)
[2018-08-29] MEDS: Insulin NovoLOG Aspart Correctional Sugar Inj SQ SCH ×3 (06:54→17:34)
[2018-08-29 07:05] LABS: Baso % (Auto) 0.6 % (0.0-2.0); Eos # (Auto) 0.3 th/mm3 (0.0-0.4); Eos % (Auto) 6.5 % (0.0-4.0); Hematocrit 37.2 % (39.0-51.0); Hemoglobin 12.7 gm/dL (13.0-17.0); Lymph # (Auto) 1.4 th/mm3 (1.0-4.8); Lymph % (Auto) 31.4 % (9.0-44.0); Mean Corpuscular HGB Conc 34.2 % (32.0-36.0); Mean Corpuscular Hemoglobin 31.5 pg (27.0-34.0); Mean Corpuscular Volume 92.2 fL (80.0-100.0); Mean Platelet Volume 10.5 fL (7.0-11.0); Mono # (Auto) 0.7 th/mm3 (0.0-0.9); Mono % (Auto) 15.8 % (0.0-8.0); Neut % (Auto) 45.7 % (16.0-70.0); Platelet Count 192 th/mm3 (150-450); Red Blood Count 4.04 mil/mm3 (4.50-5.90); Red Cell Distribution Width 13.9 % (11.6-17.2); White Blood Count 4.5 th/mm3 (4.0-11.0)
[2018-08-29 07:30] LABS: Albumin 3.3 g/dL (3.4-5.0); Anion Gap 8 meq/L (5-15); Aspartate Aminotransferase 13 U/L (15-37); Blood Urea Nitrogen 7 mg/dL (7-18); Calcium 8.4 mg/dL (8.5-10.1); Carbon Dioxide 28.8 meq/L (21.0-32.0); Chloride 107 meq/L (98-107); Glomerular Filtration Rate Greater Than 89 mL/min (>89); Glucose,Random 90 mg/dL (74-106); Magnesium 2.5 mg/dL (1.5-2.5); Potassium 3.7 meq/L (3.5-5.1); Sodium 144 meq/L (136-145)
[2018-08-29 07:31] LABS: Alanine Aminotransferase 34 U/L (12-78)
[2018-08-29 07:33] LABS: Alkaline Phosphatase 83 U/L (45-117); Phosphorus 3.7 mg/dL (2.5-4.9); Total Protein 7.5 g/dL (6.4-8.2)
[2018-08-29] MEDS: Loratadine 10 MG Tablet G-TUBE SCH (08:34)
[2018-08-29] MEDS: Sulfamethoxazole/Trimethoprim 400/80 MG Tablet PO SCH ×2 (08:34→21:22)
[2018-08-29] MEDS: Senna/Docusate Sodium 8.6/50 MG Tablet PO SCH ×2 (08:35→21:22)
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
[2018-08-29] MEDS: Acetaminophen 325 MG Tablet PO PRN (15:34)
--- NOTE | 2018-08-29 16:41 | XR ---
EXAM DATE: 08/29/2018 4:35 PM EDT AGE/SEX: 33 years / Male INDICATIONS: Fever. CLINICAL DATA: This is the patient's initial encounter. Patient reports that signs and symptoms have been present for 1 day and indicates a pain score of Nonresponsive. MEDICAL/SURGICAL HISTORY: . Gastroesophageal reflux disease. Pancreatitis. Diabetes. Dyslipidem ia, HTN, Seizures, DVT, Anoxic brain damage . Tracheostomy. PEG tube. . COMPARISON: C, CHEST 1V SINGLE AP, 08/26/2018. . FINDINGS: Mild basilar airspace disease slightly improved from August 26. Right subclavian line overlies SVC. Tracheostomy in good position. No effusion. Heart size mildly enlarged. CONCLUSION: Mild basilar airspace disease slightly improved from August 26. Support apparatus unchanged. Electronically signed by: Fidel Myers MD 08/29/2018 4:39 PM EDT
[2018-08-29 17:35] LABS: Baso % (Auto) 0.8 % (0.0-2.0); Eos # (Auto) 0.2 th/mm3 (0.0-0.4); Eos % (Auto) 5.6 % (0.0-4.0); Hematocrit 38.5 % (39.0-51.0); Hemoglobin 13.4 gm/dL (13.0-17.0); Lymph # (Auto) 1.1 th/mm3 (1.0-4.8); Lymph % (Auto) 32.8 % (9.0-44.0); Mean Corpuscular HGB Conc 34.7 % (32.0-36.0); Mean Corpuscular Hemoglobin 32.1 pg (27.0-34.0); Mean Corpuscular Volume 92.3 fL (80.0-100.0); Mean Platelet Volume 10.1 fL (7.0-11.0); Mono # (Auto) 0.6 th/mm3 (0.0-0.9); Mono % (Auto) 16.1 % (0.0-8.0); Neut # (Auto) 1.6 th/mm3 (1.8-7.7); Neut % (Auto) 44.7 % (16.0-70.0); Platelet Count 198 th/mm3 (150-450); Red Blood Count 4.17 mil/mm3 (4.50-5.90); White Blood Count 3.5 th/mm3 (4.0-11.0)
[2018-08-29 18:15] LABS: Bilirubin,Urine Negative (Negative); Clarity,Urine Hazy (Clear); Color,Urine Yellow (Yellw/Straw); Glucose,Urine (UA) Negative (Negative); Leukocyte Esterase,Urine Negative (Negative); Mucus,Urine Few /lpf (Occasional); Nitrite,Urine Negative (Negative); Specific Gravity,Urine 1.024 (1.002-1.035)
[2018-08-30] MEDS: Insulin NovoLOG Aspart Correctional Sugar Inj SQ SCH ×5 (00:09→23:19)
[2018-08-30] MEDS: Pantoprazole Inj 40 MG Vial IV.PUSH SCH ×2 (05:26→17:46)
[2018-08-30 07:05] LABS: Baso % (Auto) 0.8 % (0.0-2.0); Eos # (Auto) 0.2 th/mm3 (0.0-0.4); Eos % (Auto) 5.1 % (0.0-4.0); Hematocrit 40.9 % (39.0-51.0); Hemoglobin 13.6 gm/dL (13.0-17.0); Lymph # (Auto) 1.1 th/mm3 (1.0-4.8); Lymph % (Auto) 23.5 % (9.0-44.0); Mean Corpuscular HGB Conc 33.2 % (32.0-36.0); Mean Corpuscular Hemoglobin 31.1 pg (27.0-34.0); Mean Corpuscular Volume 93.7 fL (80.0-100.0); Mean Platelet Volume 10.5 fL (7.0-11.0); Mono # (Auto) 0.7 th/mm3 (0.0-0.9); Mono % (Auto) 14.6 % (0.0-8.0); Neut # (Auto) 2.6 th/mm3 (1.8-7.7); Platelet Count 202 th/mm3 (150-450); Red Blood Count 4.37 mil/mm3 (4.50-5.90); Red Cell Distribution Width 14.1 % (11.6-17.2); White Blood Count 4.6 th/mm3 (4.0-11.0)
[2018-08-30 07:33] LABS: Albumin 3.5 g/dL (3.4-5.0); Anion Gap 8 meq/L (5-15); Aspartate Aminotransferase 15 U/L (15-37); Blood Urea Nitrogen 9 mg/dL (7-18); Calcium 8.8 mg/dL (8.5-10.1); Carbon Dioxide 27.2 meq/L (21.0-32.0); Chloride 106 meq/L (98-107); Glomerular Filtration Rate Greater Than 89 mL/min (>89); Glucose,Random 112 mg/dL (74-106); Sodium 141 meq/L (136-145)
[2018-08-30 07:36] LABS: Alanine Aminotransferase 37 U/L (12-78); Alkaline Phosphatase 84 U/L (45-117); Total Protein 7.8 g/dL (6.4-8.2)
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
[2018-08-30] MEDS: Loratadine 10 MG Tablet G-TUBE SCH (11:00)
[2018-08-30] MEDS: Sulfamethoxazole/Trimethoprim 400/80 MG Tablet PO SCH ×2 (11:00→20:55)
[2018-08-30] MEDS: Senna/Docusate Sodium 8.6/50 MG Tablet PO SCH ×2 (11:01→20:56)
--- NOTE | 2018-08-30 12:28 | P.DIET ---
Nutritional Evaluation Type of nutrition evaluation: follow-up Nutrition consult regarding: Tube Feeding Objective - Diagnosis Fever, Sepsis, coffee ground emesis - Objective [place] body weight: 70 kg (based on HT from June and May admissions) % IBW: 90 Body Weight Used for Calculations: Actual (63kg) Energy Needs - Lower Range (kCal/kg): 28 Energy Needs - Upper Range (kCal/kg): 33 Lower Limit kCal/kg (kCals): 1,764 Upper Limit kCal/kg (kCals): 2,079 Lower Limit Protein Factor (Grams per Kg): 1.2 Upper Limit Protein Factor (Grams per Kg): 1.5 Lower Protein Needs (Protein): 76 Upper Protein Needs (Protein): 95 Dietitian Reviewed in Medical Record: Curent medications, Intake & Output, Labs , Medical history, Tube feeding Diet Order: TF only Objective Comments: PMH: Anoxic brain damage, pt with trach and PEG, nonverbal. Assessment Assessment: Pt at nutritional risk r/t dx. Pt with multiple past admissions, known to this clinician. Pt on trach collar, tolerating PEG feeds, nonverbal. Pt continues to be on TF Jevity 1.5 with goal rate of 55ml/hr. Will monitor TF tolerance, clinical course. Recommendations: 1. Continue TF Jevity 1.5 with goal rate 55ml/hr 2. Monitor TF tolerance 3. Dietitian following Dietitian to Monitor: Lab values, Intake & Output, Tube feeding tolerance, Weight change, Medical course
--- NOTE | 2018-08-30 13:33 | P.PNID ---
Subjective Remarks: Patient is a 33-year-old male, a detention resident, in a chronic vegetative state, has a trach in place, and PEG, brought into the hospital after he was noted to be coughing up some brown fluid from his tracheostomy. It was felt that it could possibly be coffee-ground emesis. He was also diaphoretic and febrile. In the ED he had a temperature of 102.8. He was initially hypotensive which improved with fluid resuscitation. Chest x-ray showed minimal infiltrate on the left side. His creatinine was elevated at 1.4. White count 13,000. Lactic acid was 8. Patient was admitted as sepsis. Infectious disease consultation has been requested to evaluate the patient. Patient has had multiple admissions to the hospital for similar complaints. He has had infections with multidrug-resistant organisms including MDR Pseudomonas , ESBL positive organisms. Notes reviewed D/W RN Started with higher temps since yesterday 101+ A lot of oral secretions Whitish trach secretions, a lot Line RSC Has condom cath BP ok On T-piece EGD report reviewed Has a central line RSC placed by IR 08/25 Sputum with PSAE and Providencia Had replacement of his GJ tube 08/24 CXR stable infiltrates CBC with increased eos and monos UA ok Antibiotics: Cefepime bactrim Lines: RSC central line - 08/25 Past Medical History: Tracheostomy dependent (Acute) GERD (gastroesophageal reflux disease) (Acute) Pancreatitis (Acute) Diabetes mellitus (Acute) Dyslipidemia (Acute) HTN (hypertension) (Acute) Seizure (Acute) DVT (deep venous thrombosis) (Acute) Anoxic brain damage (Acute) MDRO (multiple drug resistant organisms) resistance Multiple drug resistant organism (MDRO) culture positive S/P PEG Allergies/Adverse Reactions: Allergies haloperidol Adverse Reaction (Severe, Verified 06/09/18 09:58) Seizures *MDRO Multi-Drug Resistant Organism Adverse Reaction (Unknown, Uncoded 06/09/18 09:58) Dry Mucus Membranes MRSA (sputum) - 04/25/16 & 05/23/16 MRSA PCR Screen POSITIVE - 04/25/2016 ESBL+E.Coli (blood-05/22/16) Objective Vital Signs 08/29/18 14:00 08/29/18 14:01 08/29/18 15:00 Temperature Pulse Rate 80 66 96 H Respiratory Rate 34 H 33 H 43 H Blood Pressure 120/72 Pulse Oximetry 99 99 99 08/29/18 15:01 08/29/18 15:19 08/29/18 15:27 Temperature Pulse Rate 97 H 103 H 87 Respiratory Rate 45 H 37 H 40 H Blood Pressure 179/106 H 167/104 H 143/87 H Pulse Oximetry 99 100 100 08/29/18 16:00 08/29/18 20:00 08/29/18 22:00 Temperature 101.3 F H 98.5 F Pulse Rate 95 H 83 Respiratory Rate 25 H 18 Blood Pressure 121/84 Pulse Oximetry 100 100 98 08/30/18 00:00 08/30/18 04:00 08/30/18 08:01 Temperature 98.2 F 100.4 F H Pulse Rate 72 67 Respiratory Rate 15 16 Blood Pressure 147/87 H 126/68 Pulse Oximetry 100 100 100 Intake & Output 08/29/18 08/30/18 08/30/18 18:59 06:59 18:59 Intake Total 716 / 716 926 / 926 Output Total 450 / 450 500 / 500 Balance 266 / 266 426 / 426 Weight 68 kg Intake: IV 100 / 100 100 / 100 Maxipime Inj 2,000 MG In NS Inj 100 / 100 100 / 100 100 ML @ 200 mls/hr IV.SIG Q8H [facility] Rx#:[id number] Tube Feeding 556 / 556 626 / 626 Tube Irrigant 60 / 60 Water Bolus Amount 200 / 200 Output: Urine 450 / 450 500 / 500 Other: Date of Last Bowel Movement 08/29/18 08/30/18 # Bowel Movements 1 1 08/29/18 17:40 Catheterized Urine Urine Culture - Preliminary No growth in 24 hours 08/29/18 17:53 Blood - Other Aerobic Blood Culture - Preliminary No growth in 1 day 08/29/18 17:53 Blood - Other Anaerobic Blood Culture - Preliminary No growth in 1 day 08/29/18 16:55 Blood - Other Aerobic Blood Culture - Preliminary No growth in 1 day 08/29/18 16:55 Blood - Other Anaerobic Blood Culture - Preliminary No growth in 1 day Lab - Hematology Results 08/29/18 08/29/18 08/30/18 04:08 16:55 06:05 WBC 4.5 3.5 L 4.6 RBC 4.04 L 4.17 L 4.37 L Hgb 12.7 L 13.4 13.6 Hct 37.2 L 38.5 L 40.9 MCV 92.2 92.3 93.7 MCH 31.5 32.1 31.1 MCHC 34.2 34.7 33.2 RDW 13.9 14.0 14.1 Plt Count 192 198 202 MPV 10.5 10.1 10.5 Neut % (Auto) 45.7 44.7 56.0 Lymph % (Auto) 31.4 32.8 23.5 [place] % (Auto) 15.8 H 16.1 H 14.6 H Eos % (Auto) 6.5 H 5.6 H 5.1 H Baso % (Auto) 0.6 0.8 0.8 Neut # (Auto) 2.0 1.6 L 2.6 Lymph # (Auto) 1.4 1.1 1.1 [place] # (Auto) 0.7 0.6 0.7 Eos # (Auto) 0.3 0.2 0.2 Baso # (Auto) 0.0 0.0 0.0 WBC Differential . . . Differential Comment Auto diff final Auto diff final Auto diff final Lab - Chemistry Results 08/28/18 08/28/18 08/29/18 17:41 23:25 04:08 Sodium 144 Potassium 3.7 Chloride 107 Carbon Dioxide 28.8 Anion Gap 8 BUN 7 Creatinine 0.78 Estimated GFR Greater than 89 POC Glucose 90 99 Random Glucose 90 Calcium 8.4 L Phosphorus 3.7 Magnesium 2.5 Total Bilirubin 0.2 AST 13 L ALT 34 Alkaline Phosphatase 83 Total Protein 7.5 D Albumin 3.3 L 08/29/18 08/29/18 08/29/18 06:12 11:32 13:57 Sodium Potassium Chloride Carbon Dioxide Anion Gap BUN Creatinine Estimated GFR POC Glucose 101 111 H Random Glucose Calcium Phosphorus Magnesium 2.5 Total Bilirubin AST ALT Alkaline Phosphatase Total Protein Albumin 08/29/18 08/29/18 08/30/18 17:32 23:48 05:17 Sodium Potassium Chloride Carbon Dioxide Anion Gap BUN Creatinine Estimated GFR POC Glucose 87 106 102 Random Glucose Calcium Phosphorus Magnesium Total Bilirubin AST ALT Alkaline Phosphatase Total Protein Albumin 08/30/18 08/30/18 06:05 13:12 Sodium 141 Potassium 4.0 Chloride 106 Carbon Dioxide 27.2 Anion Gap 8 BUN 9 Creatinine 0.96 Estimated GFR Greater than 89 POC Glucose 82 Random Glucose 112 H Calcium 8.8 Phosphorus 3.0 Magnesium Total Bilirubin 0.2 AST 15 ALT 37 Alkaline Phosphatase 84 Total Protein 7.8 Albumin 3.5 Imaging: ITS Impressions Abdomen X-Ray 08/23/18 00:00 CONCLUSION: 1. GJ tube projects over the right abdomen. Contrast is identified within the gastric lumen. 2. Nonobstructive bowel gas pattern. No pneumoperitoneum. Gastrostomy Tube Placement 08/24/18 00:00 CONCLUSION: 1. Uncomplicated gastrojejunostomy tube replacement as above. Central Venous Line 08/25/18 00:00 CONCLUSION: 1. Uncomplicated central venous Power PICC line placement. 2. The PICC line can be used immediately. 3. Sutures can be removed in 10 days to 2 weeks. Chest X-Ray 08/29/18 16:11 CONCLUSION: Mild basilar airspace disease slightly improved from August 26. Support apparatus unchanged. Physical Exam: GENERAL: Awake, not interacting. He is on T-piece. SKIN: Warm and dry. No generalized rash. HEAD: Atraumatic. Normocephalic. No temporal wasting, or tenderness. EYES: [place] conjunctiva. No petechia or hemorrhage. No scleral icterus. No injection or drainage. EARS, NOSE AND THROAT: Nose without bleeding or purulent nasal discharge. Mucous membranes pink and moist. A lot of oral secretions NECK: Tracheostomy site looks ok. Has thick light yellow to whitish secretions from his trach. CARDIOVASCULAR: Regular rate and rhythm. No murmurs, rubs or gallops heard RESPIRATORY: Decreased breath sounds at the bases, scattered rhonchi ABDOMEN: Soft, nondistended. PEG site looks ok. Bowel sounds present and normoactive. EXTREMITIES: No clubbing, cyanosis. Both feet plantar flexed. Well perfused and warm. NEUROLOGICAL: No interaction. Some spasticity of all extremities, posturing PSYCHIATRIC: Unable to assess : condom cath in place, urine looks clear LINE: No evidence of infection Assessment and Plan - Plan Impression Sepsis on presentation (fever, tachycardia, leukocytosis, elevated lactic acid, low BP) - [place] resident - likely HCAP vs mucus plugging Recurrent fevers Increased eosinophils HCAP, mucus plugging One +BC with Coag Neg Staph likely contaminant Neutropenia, ?Zyvox, better Hx MDRO infections in the past Chronic vegetative state Renal insufficiency due to sepsis, resolved Recommendation Continue cefepime and Bactrim Agree with repeat C/S Follow CBC Monitor progress Pulmonary toilet Follow temps D/W RN
[2018-08-31] MEDS ORDERED: Sod Chloride 0.9% Inj 1,000 ML IV.SIG ONE (01:42)
[2018-08-31] MEDS: Pantoprazole Inj 40 MG Vial IV.PUSH SCH ×2 (05:24→17:15)
[2018-08-31] MEDS: Insulin NovoLOG Aspart Correctional Sugar Inj SQ SCH ×3 (05:24→17:58)
[2018-08-31 06:13] LABS: Baso % (Auto) 0.5 % (0.0-2.0); Eos # (Auto) 0.2 th/mm3 (0.0-0.4); Eos % (Auto) 2.9 % (0.0-4.0); Hematocrit 40.8 % (39.0-51.0); Hemoglobin 13.7 gm/dL (13.0-17.0); Lymph # (Auto) 1.6 th/mm3 (1.0-4.8); Lymph % (Auto) 27.3 % (9.0-44.0); Mean Corpuscular HGB Conc 33.6 % (32.0-36.0); Mean Corpuscular Hemoglobin 31.4 pg (27.0-34.0); Mean Corpuscular Volume 93.5 fL (80.0-100.0); Mean Platelet Volume 10.5 fL (7.0-11.0); Mono # (Auto) 0.8 th/mm3 (0.0-0.9); Mono % (Auto) 13.4 % (0.0-8.0); Neut # (Auto) 3.3 th/mm3 (1.8-7.7); Neut % (Auto) 55.9 % (16.0-70.0); Platelet Count 213 th/mm3 (150-450); Red Blood Count 4.36 mil/mm3 (4.50-5.90); Red Cell Distribution Width 14.1 % (11.6-17.2); White Blood Count 5.9 th/mm3 (4.0-11.0)
[2018-08-31 06:32] LABS: Aspartate Aminotransferase 17 U/L (15-37); Blood Urea Nitrogen 10 mg/dL (7-18); Calcium 8.6 mg/dL (8.5-10.1); Chloride 107 meq/L (98-107); Glomerular Filtration Rate Greater Than 89 mL/min (>89); Glucose,Random 92 mg/dL (74-106); Potassium 4.1 meq/L (3.5-5.1); Sodium 142 meq/L (136-145)
[2018-08-31 06:39] LABS: Alanine Aminotransferase 38 U/L (12-78); Albumin 3.5 g/dL (3.4-5.0); Alkaline Phosphatase 87 U/L (45-117); Anion Gap 8 meq/L (5-15); Carbon Dioxide 27.1 meq/L (21.0-32.0); Magnesium 2.2 mg/dL (1.5-2.5); Phosphorus 2.9 mg/dL (2.5-4.9); Total Protein 7.8 g/dL (6.4-8.2)
[2018-08-31] MEDS ORDERED: Sodium Chlor 0.9% Inj 500 ML IV.SIG ONE (08:00)
[2018-08-31] MEDS: Sulfamethoxazole/Trimethoprim 400/80 MG Tablet PO SCH ×2 (09:29→20:22)
[2018-08-31] MEDS: Senna/Docusate Sodium 8.6/50 MG Tablet PO SCH ×2 (09:29→20:23)
[2018-08-31] MEDS: Loratadine 10 MG Tablet G-TUBE SCH (09:29)
--- NOTE | 2018-08-31 09:41 | P.PNID ---
Subjective Remarks: Patient is a 33-year-old male, a [facility] resident, in a chronic vegetative state, has a trach in place, and PEG, brought into the hospital after he was noted to be coughing up some brown fluid from his tracheostomy. It was felt that it could possibly be coffee-ground emesis. He was also diaphoretic and febrile. In the ED he had a temperature of 102.8. He was initially hypotensive which improved with fluid resuscitation. Chest x-ray showed minimal infiltrate on the left side. His creatinine was elevated at 1.4. White count 13,000. Lactic acid was 8. Patient was admitted as sepsis. Infectious disease consultation has been requested to evaluate the patient. Patient has had multiple admissions to the hospital for similar complaints. He has had infections with multidrug-resistant organisms including MDR Pseudomonas , ESBL positive organisms. Notes reviewed D/W RN Temps not as high A lot of oral secretions Whitish trach secretions, a lot Line [facility] 08/25 Has condom cath BP ok On T-piece New cultures pending CBC, eos better Antibiotics: Cefepime bactrim Lines: [facility] central line - 08/25 Past Medical History: Tracheostomy dependent (Acute) GERD (gastroesophageal reflux disease) (Acute) Pancreatitis (Acute) Diabetes mellitus (Acute) Dyslipidemia (Acute) HTN (hypertension) (Acute) Seizure (Acute) DVT (deep venous thrombosis) (Acute) Anoxic brain damage (Acute) MDRO (multiple drug resistant organisms) resistance Multiple drug resistant organism (MDRO) culture positive S/P PEG Allergies/Adverse Reactions: Allergies haloperidol Adverse Reaction (Severe, Verified 06/09/18 09:58) Seizures *MDRO Multi-Drug Resistant Organism Adverse Reaction (Unknown, Uncoded 06/09/18 09:58) Dry Mucus Membranes MRSA (sputum) - 04/25/16 & 05/23/16 MRSA PCR Screen POSITIVE - 04/25/2016 ESBL+E.Coli (blood-05/22/16) Objective Vital Signs 08/30/18 12:00 08/30/18 16:00 08/30/18 20:00 Temperature 98.8 F 98.9 F 99.5 F Pulse Rate 52 L 68 63 Respiratory Rate 17 15 16 Blood Pressure 97/59 L 104/55 L 109/73 Pulse Oximetry 100 100 100 08/30/18 21:34 08/31/18 00:00 08/31/18 04:00 Temperature 99.5 F 98.9 F Pulse Rate 119 H 87 Respiratory Rate 24 22 Blood Pressure 130/60 124/59 L Pulse Oximetry 100 100 100 08/31/18 04:04 Temperature Pulse Rate Respiratory Rate Blood Pressure Pulse Oximetry 100 Intake & Output 08/30/18 08/31/18 08/31/18 18:59 06:59 18:59 Intake Total 979 / 979 1982 Output Total 450 / 450 550 / 550 Balance 529 / 529 1433 / 1433 Weight 68.5 kg Intake: IV 100 / 100 1200 / 1200 Maxipime Inj 2,000 MG In NS Inj 100 / 100 200 / 200 100 ML @ 200 mls/hr IV.SIG Q8H SHAYNA Rx#:[id number] NS Inj 1,000 ML @ Wide Open IV. 1000 / 1000 SIG BOLUS ONE Rx#:[id number] Oral 0 / 0 Oral Supplement 0 / 0 Tube Feeding 589 / 589 583 / 583 Tube Irrigant 90 / 90 Water Bolus Amount 200 / 200 200 / 200 Output: Urine 550 / 550 Stool 0 / 0 Urine/Stool Mix 0 / 0 Urine Amount (Catheter) 450 / 450 Condom 450 / 450 Other: Date of Last Bowel Movement 08/30/18 08/31/18 # Bowel Movements 2 1 # Incontinent Bowel Movements 2 08/30/18 18:35 Sputum - Tracheal Aspirate Gram Stain - Final 08/30/18 18:35 Sputum - Tracheal Aspirate Sputum Culture - Pending 08/29/18 17:40 Catheterized Urine Urine Culture - Preliminary No growth in 24 hours 08/29/18 17:53 Blood - Other Aerobic Blood Culture - Preliminary No growth in 1 day 08/29/18 17:53 Blood - Other Anaerobic Blood Culture - Preliminary No growth in 1 day 08/29/18 16:55 Blood - Other Aerobic Blood Culture - Preliminary No growth in 1 day 08/29/18 16:55 Blood - Other Anaerobic Blood Culture - Preliminary No growth in 1 day Lab - Hematology Results 08/29/18 08/30/18 08/31/18 16:55 06:05 03:55 WBC 3.5 L 4.6 5.9 RBC 4.17 L 4.37 L 4.36 L Hgb 13.4 13.6 13.7 Hct 38.5 L 40.9 40.8 MCV 92.3 93.7 93.5 MCH 32.1 31.1 31.4 MCHC 34.7 33.2 33.6 RDW 14.0 14.1 14.1 Plt Count 198 202 213 MPV 10.1 10.5 10.5 Neut % (Auto) 44.7 56.0 55.9 Lymph % (Auto) 32.8 23.5 27.3 [place] % (Auto) 16.1 H 14.6 H 13.4 H Eos % (Auto) 5.6 H 5.1 H 2.9 Baso % (Auto) 0.8 0.8 0.5 Neut # (Auto) 1.6 L 2.6 3.3 Lymph # (Auto) 1.1 1.1 1.6 [place] # (Auto) 0.6 0.7 0.8 Eos # (Auto) 0.2 0.2 0.2 Baso # (Auto) 0.0 0.0 0.0 WBC Differential . . . Differential Comment Auto diff final Auto diff final Auto diff final Lab - Chemistry Results 08/29/18 08/29/18 08/29/18 11:32 13:57 17:32 Sodium Potassium Chloride Carbon Dioxide Anion Gap BUN Creatinine Estimated GFR POC Glucose 111 H 87 Random Glucose Calcium Phosphorus Magnesium 2.5 Total Bilirubin AST ALT Alkaline Phosphatase Total Protein Albumin 08/29/18 08/30/18 08/30/18 23:48 05:17 06:05 Sodium 141 Potassium 4.0 Chloride 106 Carbon Dioxide 27.2 Anion Gap 8 BUN 9 Creatinine 0.96 Estimated GFR Greater than 89 POC Glucose 106 102 Random Glucose 112 H Calcium 8.8 Phosphorus 3.0 Magnesium Total Bilirubin 0.2 AST 15 ALT 37 Alkaline Phosphatase 84 Total Protein 7.8 Albumin 3.5 08/30/18 08/30/18 08/30/18 13:12 17:00 23:11 Sodium Potassium Chloride Carbon Dioxide Anion Gap BUN Creatinine Estimated GFR POC Glucose 82 79 84 Random Glucose Calcium Phosphorus Magnesium Total Bilirubin AST ALT Alkaline Phosphatase Total Protein Albumin 08/31/18 08/31/18 03:55 05:19 Sodium 142 Potassium 4.1 Chloride 107 Carbon Dioxide 27.1 Anion Gap 8 BUN 10 Creatinine 0.82 Estimated GFR Greater than 89 POC Glucose 106 Random Glucose 92 Calcium 8.6 Phosphorus 2.9 Magnesium 2.2 Total Bilirubin 0.2 AST 17 ALT 38 Alkaline Phosphatase 87 Total Protein 7.8 Albumin 3.5 Imaging: ITS Impressions Abdomen X-Ray 08/23/18 00:00 CONCLUSION: 1. GJ tube projects over the right abdomen. Contrast is identified within the gastric lumen. 2. Nonobstructive bowel gas pattern. No pneumoperitoneum. Gastrostomy Tube Placement 08/24/18 00:00 CONCLUSION: 1. Uncomplicated gastrojejunostomy tube replacement as above. Central Venous Line 08/25/18 00:00 CONCLUSION: 1. Uncomplicated central venous Power PICC line placement. 2. The PICC line can be used immediately. 3. Sutures can be removed in 10 days to 2 weeks. Chest X-Ray 08/29/18 16:11 CONCLUSION: Mild basilar airspace disease slightly improved from August 26. Support apparatus unchanged. Physical Exam: GENERAL: Awake, not interacting. He is on T-piece. SKIN: Warm and dry. No generalized rash. HEAD: Atraumatic. Normocephalic. No temporal wasting, or tenderness. EYES: [place] conjunctiva. No petechia or hemorrhage. No scleral icterus. No injection or drainage. EARS, NOSE AND THROAT: Nose without bleeding or purulent nasal discharge. Mucous membranes pink and moist. A lot of oral secretions NECK: Tracheostomy site looks ok. Has thick light yellow to whitish secretions from his trach. CARDIOVASCULAR: Regular rate and rhythm. No murmurs, rubs or gallops heard RESPIRATORY: Decreased breath sounds at the bases, scattered rhonchi ABDOMEN: Soft, nondistended. PEG site looks ok. Bowel sounds present and normoactive. EXTREMITIES: No clubbing, cyanosis. Both feet plantar flexed. Well perfused and warm. NEUROLOGICAL: No interaction. Some spasticity of all extremities, posturing PSYCHIATRIC: Unable to assess : condom cath in place, urine looks clear LINE: No evidence of infection Assessment and Plan - Plan Impression Sepsis on presentation (fever, tachycardia, leukocytosis, elevated lactic acid, low BP) - [facility] resident - likely HCAP vs mucus plugging Recurrent fevers Increased eosinophils HCAP, mucus plugging One +BC with Coag Neg Staph likely contaminant Neutropenia, ?Zyvox, better Hx MDRO infections in the past Chronic vegetative state Renal insufficiency due to sepsis, resolved Recommendation Continue cefepime and Bactrim Follow new C/S Monitor progress Pulmonary toilet Follow temps D/W APRIL
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
[2018-09-01] MEDS: Insulin NovoLOG Aspart Correctional Sugar Inj SQ SCH ×4 (00:07→17:45)
[2018-09-01] MEDS: Pantoprazole Inj 40 MG Vial IV.PUSH SCH ×2 (05:20→17:45)
[2018-09-01 07:38] LABS: Baso % (Auto) 0.6 % (0.0-2.0); Eos # (Auto) 0.3 th/mm3 (0.0-0.4); Eos % (Auto) 6.1 % (0.0-4.0); Hematocrit 40.8 % (39.0-51.0); Hemoglobin 13.9 gm/dL (13.0-17.0); Lymph # (Auto) 1.8 th/mm3 (1.0-4.8); Lymph % (Auto) 39.1 % (9.0-44.0); Mean Corpuscular HGB Conc 34.1 % (32.0-36.0); Mean Corpuscular Hemoglobin 31.7 pg (27.0-34.0); Mean Corpuscular Volume 93.2 fL (80.0-100.0); Mean Platelet Volume 10.9 fL (7.0-11.0); Mono # (Auto) 0.6 th/mm3 (0.0-0.9); Mono % (Auto) 12.3 % (0.0-8.0); Neut % (Auto) 41.9 % (16.0-70.0); Platelet Count 212 th/mm3 (150-450); Red Blood Count 4.38 mil/mm3 (4.50-5.90); White Blood Count 4.7 th/mm3 (4.0-11.0)
[2018-09-01] MEDS: Sulfamethoxazole/Trimethoprim 400/80 MG Tablet PO SCH ×2 (08:51→21:12)
[2018-09-01] MEDS: Senna/Docusate Sodium 8.6/50 MG Tablet PO SCH ×2 (08:51→21:12)
[2018-09-01] MEDS: Loratadine 10 MG Tablet G-TUBE SCH (08:52)
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
[2018-09-01] MEDS: HYDROmorphone PF Inj 2 MG/ML Vial IV.PUSH PRN (23:54)
[2018-09-02] MEDS: Insulin NovoLOG Aspart Correctional Sugar Inj SQ SCH ×5 (00:13→23:50)
[2018-09-02 04:16] LABS: Baso % (Auto) 0.7 % (0.0-2.0); Eos # (Auto) 0.2 th/mm3 (0.0-0.4); Eos % (Auto) 4.6 % (0.0-4.0); Hematocrit 40.7 % (39.0-51.0); Hemoglobin 13.5 gm/dL (13.0-17.0); Lymph # (Auto) 1.8 th/mm3 (1.0-4.8); Lymph % (Auto) 38.2 % (9.0-44.0); Mean Corpuscular HGB Conc 33.3 % (32.0-36.0); Mean Corpuscular Hemoglobin 31.1 pg (27.0-34.0); Mean Corpuscular Volume 93.5 fL (80.0-100.0); Mean Platelet Volume 9.7 fL (7.0-11.0); Mono # (Auto) 0.7 th/mm3 (0.0-0.9); Mono % (Auto) 13.8 % (0.0-8.0); Neut # (Auto) 2.1 th/mm3 (1.8-7.7); Neut % (Auto) 42.7 % (16.0-70.0); Platelet Count 224 th/mm3 (150-450); Red Blood Count 4.35 mil/mm3 (4.50-5.90); Red Cell Distribution Width 13.9 % (11.6-17.2); White Blood Count 4.8 th/mm3 (4.0-11.0)
[2018-09-02] MEDS: Pantoprazole Inj 40 MG Vial IV.PUSH SCH ×2 (05:32→17:19)
[2018-09-02] MEDS: Senna/Docusate Sodium 8.6/50 MG Tablet PO SCH ×2 (08:07→21:37)
[2018-09-02] MEDS: Loratadine 10 MG Tablet G-TUBE SCH (08:07)
[2018-09-02] MEDS: Sulfamethoxazole/Trimethoprim 400/80 MG Tablet PO SCH ×2 (08:07→21:37)
--- NOTE | 2018-09-02 09:46 | P.PNID ---
Subjective Remarks: Patient is a 33-year-old male, a [facility] resident, in a chronic vegetative state, has a trach in place, and PEG, brought into the hospital after he was noted to be coughing up some brown fluid from his tracheostomy. It was felt that it could possibly be coffee-ground emesis. He was also diaphoretic and febrile. In the ED he had a temperature of 102.8. He was initially hypotensive which improved with fluid resuscitation. Chest x-ray showed minimal infiltrate on the left side. His creatinine was elevated at 1.4. White count 13,000. Lactic acid was 8. Patient was admitted as sepsis. Infectious disease consultation has been requested to evaluate the patient. Patient has had multiple admissions to the hospital for similar complaints. He has had infections with multidrug-resistant organisms including MDR Pseudomonas , ESBL positive organisms. Notes reviewed D/W RN Low grade temps overnight Still with a lot of oral secretions Whit[place] trach secretions, a lot Last sputum C/S PSAE (R to Imipenem and Levaquin) and second GNR possibly E coli PICC [facility] 08/25 Has condom cath BP ok On T-piece Last CXR 08/29 better Antibiotics: Cefepime bactrim Lines: [facility] central line - 08/25 Past Medical History: Tracheostomy dependent (Acute) GERD (gastroesophageal reflux disease) (Acute) Pancreatitis (Acute) Diabetes mellitus (Acute) Dyslipidemia (Acute) HTN (hypertension) (Acute) Seizure (Acute) DVT (deep venous thrombosis) (Acute) Anoxic brain damage (Acute) MDRO (multiple drug resistant organisms) resistance Multiple drug resistant organism (MDRO) culture positive S/P PEG Allergies/Adverse Reactions: Allergies haloperidol Adverse Reaction (Severe, Verified 06/09/18 09:58) Seizures *MDRO Multi-Drug Resistant Organism Adverse Reaction (Unknown, Uncoded 06/09/18 09:58) Dry Mucus Membranes MRSA (sputum) - 04/25/16 & 05/23/16 MRSA PCR Screen POSITIVE - 04/25/2016 ESBL+E.Coli (blood-05/22/16) Objective Vital Signs 09/01/18 10:00 09/01/18 10:01 09/01/18 11:00 Temperature Pulse Rate 66 57 L 60 Respiratory Rate 20 18 18 Blood Pressure 148/60 H Pulse Oximetry 100 100 100 09/01/18 11:01 09/01/18 12:00 09/01/18 13:00 Temperature 98.7 F Pulse Rate 58 L 69 89 Respiratory Rate 19 18 28 H Blood Pressure 129/57 L 129/58 L 144/70 H Pulse Oximetry 100 100 99 09/01/18 14:00 09/01/18 15:00 09/01/18 16:00 Temperature 99.4 F Pulse Rate 90 75 142 H Respiratory Rate 32 H 19 39 H Blood Pressure 147/65 H 131/63 134/64 Pulse Oximetry 97 100 96 09/01/18 16:14 09/01/18 17:00 09/01/18 18:00 Temperature Pulse Rate 96 H 84 97 H Respiratory Rate 27 H 14 30 H Blood Pressure 134/64 123/62 Pulse Oximetry 95 99 97 09/01/18 18:01 09/01/18 19:00 09/01/18 19:01 Temperature Pulse Rate 112 H 81 79 Respiratory Rate 36 H 15 27 H Blood Pressure 159/72 H 128/60 Pulse Oximetry 98 91 L 96 09/01/18 20:00 09/01/18 20:01 09/01/18 21:00 Temperature 99.9 F H Pulse Rate 126 H 137 H 79 Respiratory Rate 31 H 27 H 26 H Blood Pressure 177/84 H 142/74 H Pulse Oximetry 97 96 100 09/01/18 22:00 09/01/18 22:29 09/02/18 00:00 Temperature 98.8 F Pulse Rate 120 H 80 Respiratory Rate 23 Blood Pressure 131/58 L Pulse Oximetry 100 100 09/02/18 00:33 09/02/18 02:00 09/02/18 04:00 Temperature 98.2 F Pulse Rate 53 L 47 L Respiratory Rate 16 Blood Pressure 100/59 L Pulse Oximetry 100 100 09/02/18 04:48 09/02/18 06:00 09/02/18 08:00 Temperature Pulse Rate 49 L Respiratory Rate Blood Pressure Pulse Oximetry 100 100 Intake & Output 09/01/18 09/02/18 09/02/18 18:59 06:59 18:59 Intake Total 728 / 728 755 / 755 Output Total 600 / 600 175 / 175 Balance 128 / 128 580 / 580 Weight 64 kg Intake: IV 100 / 100 200 / 200 Maxipime Inj 2,000 MG In NS Inj 100 / 100 200 / 200 100 ML @ 200 mls/hr IV.SIG Q8H [facility] Rx#:[id number] Tube Feeding 628 / 628 555 / 555 Output: Urine Amount (Catheter) 600 / 600 175 / 175 Condom 600 / 600 175 / 175 Other: # Incontinent Voids 1 Date of Last Bowel Movement 09/01/18 09/01/18 # Bowel Movements 0 # Incontinent Bowel Movements 1 08/30/18 18:35 Sputum - Tracheal Aspirate Gram Stain - Final 08/30/18 18:35 Sputum - Tracheal Aspirate Sputum Culture - Preliminary Pseudomonas aeruginosa gram negative rods 08/29/18 17:53 Blood - Other Aerobic Blood Culture - Preliminary No growth in 3 days 08/29/18 17:53 Blood - Other Anaerobic Blood Culture - Preliminary No growth in 3 days 08/29/18 16:55 Blood - Other Aerobic Blood Culture - Preliminary No growth in 3 days 08/29/18 16:55 Blood - Other Anaerobic Blood Culture - Preliminary No growth in 3 days 08/29/18 17:40 Catheterized Urine Urine Culture - Final No growth in 48 hours Lab - Hematology Results 09/01/18 09/02/18 04:30 04:00 WBC 4.7 4.8 RBC 4.38 L 4.35 L Hgb 13.9 13.5 Hct 40.8 40.7 MCV 93.2 93.5 MCH 31.7 31.1 MCHC 34.1 33.3 RDW 14.0 13.9 Plt Count 212 224 MPV 10.9 9.7 Neut % (Auto) 41.9 42.7 Lymph % (Auto) 39.1 38.2 [place] % (Auto) 12.3 H 13.8 H Eos % (Auto) 6.1 H 4.6 H Baso % (Auto) 0.6 0.7 Neut # (Auto) 2.0 2.1 Lymph # (Auto) 1.8 1.8 [place] # (Auto) 0.6 0.7 Eos # (Auto) 0.3 0.2 Baso # (Auto) 0.0 0.0 WBC Differential . . Differential Comment Auto diff final Auto diff final Lab - Chemistry Results 08/31/18 08/31/18 09/01/18 11:44 17:39 00:06 POC Glucose 80 81 101 09/01/18 09/01/18 09/01/18 05:19 11:21 17:36 POC Glucose 94 105 91 09/01/18 09/02/18 23:08 05:32 POC Glucose 111 H 106 Imaging: ITS Impressions Abdomen X-Ray 08/23/18 00:00 CONCLUSION: 1. GJ tube projects over the right abdomen. Contrast is identified within the gastric lumen. 2. Nonobstructive bowel gas pattern. No pneumoperitoneum. Gastrostomy Tube Placement 08/24/18 00:00 CONCLUSION: 1. Uncomplicated gastrojejunostomy tube replacement as above. Central Venous Line 08/25/18 00:00 CONCLUSION: 1. Uncomplicated central venous Power PICC line placement. 2. The PICC line can be used immediately. 3. Sutures can be removed in 10 days to 2 weeks. Chest X-Ray 08/29/18 16:11 CONCLUSION: Mild basilar airspace disease slightly improved from August 26. Support apparatus unchanged. Physical Exam: GENERAL: Awake, not interacting. He is on T-piece. SKIN: Warm and dry. No generalized rash. HEAD: Atraumatic. Normocephalic. No temporal wasting, or tenderness. EYES: [place] conjunctiva. No petechia or hemorrhage. No scleral icterus. No injection or drainage. EARS, NOSE AND THROAT: Nose without bleeding or purulent nasal discharge. Mucous membranes pink and moist. A lot of oral secretions NECK: Tracheostomy site looks ok. Has thick light yellow to whitish secretions from his trach. CARDIOVASCULAR: Regular rate and rhythm. No murmurs, rubs or gallops heard RESPIRATORY: Decreased breath sounds at the bases ABDOMEN: Soft, nondistended. PEG site looks ok. Bowel sounds present and normoactive. EXTREMITIES: No clubbing, cyanosis. Both feet plantar flexed. Well perfused and warm. NEUROLOGICAL: No interaction. Some spasticity of all extremities, posturing PSYCHIATRIC: Unable to assess : condom cath in place, urine looks clear LINE: No evidence of infection Assessment and Plan - Plan Impression Sepsis on presentation (fever, tachycardia, leukocytosis, elevated lactic acid, low BP) - [facility] resident - likely HCAP vs mucus plugging Recurrent fevers, better, ?plugging Increased eosinophils HCAP, mucus plugging - C/S Providencia and PSAE - repeat C/S pending One +BC with Coag Neg Staph likely contaminant Neutropenia, ?Zyvox, better Hx MDRO infections in the past Chronic vegetative state Renal insufficiency due to sepsis, resolved Recommendation Continue cefepime and Bactrim Follow new C/S Will determine course of Abx once new sputum C/S available If no further fevers and C/S available, he will be able to complete Rx in SNF Monitor progress Pulmonary toilet Follow minerva D/W APRIL
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
[2018-09-02] MEDS: Hyoscyamine Liq Drops 0.125 MG/ML 15 ML Bottle SL PRN (21:37)
[2018-09-03] MEDS: Pantoprazole Inj 40 MG Vial IV.PUSH SCH (05:07)
[2018-09-03] MEDS: Insulin NovoLOG Aspart Correctional Sugar Inj SQ SCH ×3 (05:08→18:52)
[2018-09-03] MEDS: Sulfamethoxazole/Trimethoprim 400/80 MG Tablet PO SCH (08:28)
[2018-09-03] MEDS: Senna/Docusate Sodium 8.6/50 MG Tablet PO SCH ×2 (08:28→22:27)
[2018-09-03] MEDS: Loratadine 10 MG Tablet G-TUBE SCH (08:29)
[2018-09-03] MEDS: Hyoscyamine Liq Drops 0.125 MG/ML 15 ML Bottle SL PRN ×3 (09:07→22:55)
[2018-09-03] MEDS: HYDROmorphone PF Inj 2 MG/ML Vial IV.PUSH PRN (09:57)
--- NOTE | 2018-09-03 13:01 | P.PNID ---
Subjective Remarks: Patient is a 33-year-old male, a long-term resident, in a chronic vegetative state, has a trach in place, and PEG, brought into the hospital after he was noted to be coughing up some brown fluid from his tracheostomy. It was felt that it could possibly be coffee-ground emesis. He was also diaphoretic and febrile. In the ED he had a temperature of 102.8. He was initially hypotensive which improved with fluid resuscitation. Chest x-ray showed minimal infiltrate on the left side. His creatinine was elevated at 1.4. White count 13,000. Lactic acid was 8. Patient was admitted as sepsis. Infectious disease consultation has been requested to evaluate the patient. Patient has had multiple admissions to the hospital for similar complaints. He has had infections with multidrug-resistant organisms including MDR Pseudomonas , ESBL positive organisms. Notes reviewed Has intermittent low grade temps Clinically no change Sputum C/S with resistant PSAE and E coli ESBL+ Still with a lot of oral secretions [place] trach secretions, a lot PICC [facility] 08/25 Has condom cath BP ok On T-piece Last CXR 08/29 better Antibiotics: Cefepime bactrim Lines: [facility] central line - 08/25 Past Medical History: Tracheostomy dependent (Acute) GERD (gastroesophageal reflux disease) (Acute) Pancreatitis (Acute) Diabetes mellitus (Acute) Dyslipidemia (Acute) HTN (hypertension) (Acute) Seizure (Acute) DVT (deep venous thrombosis) (Acute) Anoxic brain damage (Acute) MDRO (multiple drug resistant organisms) resistance Multiple drug resistant organism (MDRO) culture positive S/P PEG Allergies/Adverse Reactions: Allergies haloperidol Adverse Reaction (Severe, Verified 06/09/18 09:58) Seizures *MDRO Multi-Drug Resistant Organism Adverse Reaction (Unknown, Uncoded 06/09/18 09:58) Dry Mucus Membranes MRSA (sputum) - 04/25/16 & 05/23/16 MRSA PCR Screen POSITIVE - 04/25/2016 ESBL+E.Coli (blood-05/22/16) Objective Vital Signs 09/02/18 14:00 09/02/18 15:19 09/02/18 16:00 Temperature 97.1 F L Pulse Rate 45 L 54 L 51 L Respiratory Rate 18 Blood Pressure 129/68 Pulse Oximetry 88 L 09/02/18 16:37 09/02/18 18:00 09/02/18 20:00 Temperature 97.1 F L 97.9 F Pulse Rate 51 L 54 L 91 H Respiratory Rate 18 16 Blood Pressure 129/68 102/62 Pulse Oximetry 88 L 96 09/02/18 20:58 09/02/18 23:57 09/03/18 00:00 Temperature 97.7 F Pulse Rate 78 122 H Respiratory Rate 16 Blood Pressure 120/64 Pulse Oximetry 99 100 100 09/03/18 04:00 09/03/18 05:38 09/03/18 08:00 Temperature 97.8 F 98.3 F Pulse Rate 77 71 Respiratory Rate 16 17 Blood Pressure 112/65 103/51 L Pulse Oximetry 95 99 94 L 09/03/18 11:45 Temperature 99.8 F H Pulse Rate 97 H Respiratory Rate 17 Blood Pressure 148/85 H Pulse Oximetry 98 Intake & Output 09/02/18 09/03/18 09/03/18 18:59 06:59 18:59 Intake Total 594 / 594 200 / 200 Output Total 350 / 350 Balance 594 / 594 -150 / -150 Weight 68 kg 67.7 kg Intake: IV 100 / 100 200 / 200 Maxipime Inj 2,000 MG In NS Inj 100 / 100 200 / 200 100 ML @ 200 mls/hr IV.SIG Q8H [facility] Rx#:[id number] Oral 0 / 0 Tube Feeding 374 / 374 Water Bolus Amount 120 / 120 Output: Urine 350 / 350 Other: # Incontinent Voids 2 Date of Last Bowel Movement 09/02/18 09/02/18 # Bowel Movements 0 0 # Incontinent Bowel Movements 1 08/30/18 18:35 Sputum - Tracheal Aspirate Gram Stain - Final 08/30/18 18:35 Sputum - Tracheal Aspirate Sputum Culture - Final Pseudomonas aeruginosa Escherichia coli ESBL positive 08/29/18 17:53 Blood - Other Aerobic Blood Culture - Final No growth in 5 days 08/29/18 17:53 Blood - Other Anaerobic Blood Culture - Final No growth in 5 days 08/29/18 16:55 Blood - Other Aerobic Blood Culture - Final No growth in 5 days 08/29/18 16:55 Blood - Other Anaerobic Blood Culture - Final No growth in 5 days 08/29/18 17:40 Catheterized Urine Urine Culture - Final No growth in 48 hours Lab - Hematology Results 09/02/18 04:00 WBC 4.8 RBC 4.35 L Hgb 13.5 Hct 40.7 MCV 93.5 MCH 31.1 MCHC 33.3 RDW 13.9 Plt Count 224 MPV 9.7 Neut % (Auto) 42.7 Lymph % (Auto) 38.2 [place] % (Auto) 13.8 H Eos % (Auto) 4.6 H Baso % (Auto) 0.7 Neut # (Auto) 2.1 Lymph # (Auto) 1.8 [place] # (Auto) 0.7 Eos # (Auto) 0.2 Baso # (Auto) 0.0 WBC Differential . Differential Comment Auto diff final Lab - Chemistry Results 09/01/18 09/01/18 09/02/18 17:36 23:08 05:32 POC Glucose 91 111 H 106 09/02/18 09/02/18 09/02/18 12:15 12:56 16:45 POC Glucose 74 81 110 09/03/18 09/03/18 05:02 11:48 POC Glucose 94 116 H Imaging: ITS Impressions Abdomen X-Ray 08/23/18 00:00 CONCLUSION: 1. GJ tube projects over the right abdomen. Contrast is identified within the gastric lumen. 2. Nonobstructive bowel gas pattern. No pneumoperitoneum. Gastrostomy Tube Placement 08/24/18 00:00 CONCLUSION: 1. Uncomplicated gastrojejunostomy tube replacement as above. Central Venous Line 08/25/18 00:00 CONCLUSION: 1. Uncomplicated central venous Power PICC line placement. 2. The PICC line can be used immediately. 3. Sutures can be removed in 10 days to 2 weeks. Chest X-Ray 08/29/18 16:11 CONCLUSION: Mild basilar airspace disease slightly improved from August 26. Support apparatus unchanged. Physical Exam: GENERAL: Awake, not interacting. He is on T-piece. SKIN: Warm and dry. No generalized rash. HEAD: Atraumatic. Normocephalic. No temporal wasting, or tenderness. EYES: [place] conjunctiva. No petechia or hemorrhage. No scleral icterus. No injection or drainage. EARS, NOSE AND THROAT: Nose without bleeding or purulent nasal discharge. Mucous membranes pink and moist. A lot of oral secretions NECK: Tracheostomy site looks ok. Has thick light yellow to whitish secretions from his trach. CARDIOVASCULAR: Regular rate and rhythm. No murmurs, rubs or gallops heard RESPIRATORY: Decreased breath sounds at the bases ABDOMEN: Soft, nondistended. PEG site looks ok. Bowel sounds present and normoactive. EXTREMITIES: No clubbing, cyanosis. Both feet plantar flexed. Well perfused and warm. NEUROLOGICAL: No interaction. Some spasticity of all extremities, posturing PSYCHIATRIC: Unable to assess : condom cath in place, urine looks clear LINE: No evidence of infection Assessment and Plan - Plan Impression Sepsis on presentation (fever, tachycardia, leukocytosis, elevated lactic acid, low BP) - [place] resident - likely HCAP vs mucus plugging Recurrent fevers, better, ?plugging - likely plugging - has a lot of secretions Increased eosinophils HCAP, mucus plugging - C/S Providencia and PSAE - repeat C/S pending One +BC with Coag Neg Staph likely contaminant Neutropenia, ?Zyvox, better Hx MDRO infections in the past Chronic vegetative state Renal insufficiency due to sepsis, resolved Recommendation Stop cefepime and Bactrim Zerbaxa IV and colistin nebs x 7 days If stable, should be able to go back to SNF Will need to find out if they will take him with his new Abx Pulmonary toilet Follow temps Monitor progress
[2018-09-03] MEDS: TAZOBACTAM IV.SIG SCH ×2 (14:36→22:29)
[2018-09-03] MEDS: CEFTOLOZANE IV.SIG SCH ×2 (14:36→22:29)
[2018-09-03] MEDS: SODIUM CHLOR 0.9% IV.SIG SCH ×2 (14:36→22:29)
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
--- NOTE | 2018-09-03 15:30 | P.DIET ---
Nutritional Evaluation Type of nutrition evaluation: follow-up Nutrition consult regarding: Tube Feeding Nutrition screening: Weight Loss > 10 lbs Objective - Diagnosis Fever, Sepsis, coffee ground emesis - Objective [place] body weight: 70 kg (based on HT from June and May admissions) % IBW: 90 Body Weight Used for Calculations: Actual (63kg) Energy Needs - Lower Range (kCal/kg): 28 Energy Needs - Upper Range (kCal/kg): 33 Lower Limit kCal/kg (kCals): 1,764 Upper Limit kCal/kg (kCals): 2,079 Lower Limit Protein Factor (Grams per Kg): 1.2 Upper Limit Protein Factor (Grams per Kg): 1.5 Lower Protein Needs (Protein): 76 Upper Protein Needs (Protein): 95 Dietitian Reviewed in Medical Record: Curent medications, Intake & Output, Labs , Medical history, Tube feeding Diet Order: TF only Objective Comments: PMH: Anoxic brain damage, pt with trach and PEG, nonverbal. Assessment Assessment: Pt at nutritional risk r/t dx. Pt with multiple past admissions, known to this clinician. Pt on trach collar, tolerating PEG feeds, nonverbal. Pt continues to be on TF Jevity 1.5 with goal rate of 55ml/hr. Per MD note, pt will d/c to SNF when cleared by ID. Will monitor TF tolerance, clinical course. Recommendations: 1. Continue TF Jevity 1.5 with goal rate 55ml/hr 2. Monitor TF tolerance 3. Dietitian following Dietitian to Monitor: Lab values, Intake & Output, Tube feeding tolerance, Weight change, Medical course
--- NOTE | 2018-09-03 17:13 | P.DCO ---
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 [] May leave port accessed during therapy. [] May leave peripheral site accessed for duration of therapy. [x] If patient has SOB or respiratory distress, check oxygen saturation. If less than 90% or clinical signs of respiratory distress, administer oxygen at 2 L/min. via nasal cannula and notify physician. [x] Anaphylaxis/Reaction orders: * Stop infusion. * Keep IV line open with saline flush. * Notify physician. * Monitor vital signs every 15 minutes until symptoms resolve. * Check Oxygen saturation; Oxygen at 2 L/min. via nasal cannula if less than 90% or clinical signs of respiratory distress. * Administer diphenhydramine (Benadryl) 25 mg IV STAT, (unless patient has received as pre-med). May repeat once, if necessary. * Solu-Cortef 250 mg IVP over 30-60 seconds, use 100 mg vials for each dissolution. * Epinephrine (1mg/1 ml) 0.3 mg subcutaneously or IVP now with any signs of respiratory distress. * Check with physician for new additional pre-med orders if patient is re- challenged or re-treated. [x] May remove PICC line when treatment complete, after confirming with Physician. [x] If the patient is admitted to the hospital, the ED, or transferred via [facility] , complete transfer form including medication reconciliation order sheet. Weekly Labs: CBC w/diff, Creatinine (Labs on September 07, 2018, copy to nj [id number]) - Patient Information Allergies haloperidol Adverse Reaction (Severe, Verified 06/09/18 09:58) Seizures *MDRO Multi-Drug Resistant Organism Adverse Reaction (Unknown, Uncoded 08/08/18 09:58) Dry Mucus Membranes MRSA (sputum) - 04/25/16 & 05/23/16 MRSA PCR Screen POSITIVE - 04/25/2016 ESBL+E.Coli (blood-05/22/16) (1) Pneumonia Qualifiers: Pneumonia type: due to Pseudomonas Laterality: unspecified laterality Lung location: unspecified part of lung Qualified Code(s): J15.1 - Pneumonia due to Pseudomonas
[2018-09-04] MEDS: Insulin NovoLOG Aspart Correctional Sugar Inj SQ SCH ×4 (03:04→17:56)
[2018-09-04] MEDS: SODIUM CHLOR 0.9% IV.SIG SCH ×3 (06:29→22:33)
[2018-09-04] MEDS: TAZOBACTAM IV.SIG SCH ×3 (06:29→22:33)
[2018-09-04] MEDS: CEFTOLOZANE IV.SIG SCH ×3 (06:29→22:33)
[2018-09-04] MEDS: Senna/Docusate Sodium 8.6/50 MG Tablet PO SCH ×2 (09:30→22:25)
[2018-09-04] MEDS: Loratadine 10 MG Tablet G-TUBE SCH (09:30)
[2018-09-04] MEDS: Multivitamin w/Vit C Drops 50 ML Bottle G-TUBE SCH (11:33)
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
[2018-09-05] MEDS: Insulin NovoLOG Aspart Correctional Sugar Inj SQ SCH ×4 (00:15→17:19)
[2018-09-05] MEDS: TAZOBACTAM IV.SIG SCH ×3 (06:31→22:15)
[2018-09-05] MEDS: CEFTOLOZANE IV.SIG SCH ×3 (06:31→22:15)
[2018-09-05] MEDS: SODIUM CHLOR 0.9% IV.SIG SCH ×3 (06:31→22:15)
[2018-09-05] MEDS: Senna/Docusate Sodium 8.6/50 MG Tablet PO SCH ×2 (08:16→22:15)
[2018-09-05] MEDS: Loratadine 10 MG Tablet G-TUBE SCH (08:16)
[2018-09-05] MEDS: Multivitamin w/Vit C Drops 50 ML Bottle G-TUBE SCH (08:17)
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
[2018-09-05] MEDS: Hyoscyamine Liq Drops 0.125 MG/ML 15 ML Bottle SL PRN (13:39)
[2018-09-06] MEDS: Insulin NovoLOG Aspart Correctional Sugar Inj SQ SCH ×4 (00:20→17:22)
[2018-09-06] MEDS: CEFTOLOZANE IV.SIG SCH ×3 (06:26→21:38)
[2018-09-06] MEDS: TAZOBACTAM IV.SIG SCH ×3 (06:26→21:38)
[2018-09-06] MEDS: SODIUM CHLOR 0.9% IV.SIG SCH ×3 (06:26→21:38)
[2018-09-06] MEDS: Multivitamin w/Vit C Drops 50 ML Bottle G-TUBE SCH (08:53)
[2018-09-06] MEDS: Loratadine 10 MG Tablet G-TUBE SCH (08:54)
[2018-09-06] MEDS: Senna/Docusate Sodium 8.6/50 MG Tablet PO SCH ×2 (08:54→21:29)
--- NOTE | 2018-09-06 14:21 | P.PNID ---
Subjective Remarks: Patient is a 33-year-old male, a [place] [facility], in a chronic vegetative state, has a trach in place, and PEG, brought into the hospital after he was noted to be coughing up some brown fluid from his tracheostomy. It was felt that it could possibly be coffee-ground emesis. He was also diaphoretic and febrile. In the ED he had a temperature of 102.8. He was initially hypotensive which improved with fluid resuscitation. Chest x-ray showed minimal infiltrate on the left side. His creatinine was elevated at 1.4. White count 13,000. Lactic acid was 8. Patient was admitted as sepsis. Infectious disease consultation has been requested to evaluate the patient. Patient has had multiple admissions to the hospital for similar complaints. He has had infections with multidrug-resistant organisms including MDR Pseudomonas , ESBL positive organisms. Notes reviewed Has intermittent low grade temps Clinically no change Accepted and will go back to his regular SNF Sputum C/S with resistant PSAE and E coli ESBL+ PICC [facility] 08/25 Has condom cath BP ok On T-piece Last CXR 08/29 better Antibiotics: Cefepime bactrim Lines: [facility] central line - 08/25 Past Medical History: Tracheostomy dependent (Acute) GERD (gastroesophageal reflux disease) (Acute) Pancreatitis (Acute) Diabetes mellitus (Acute) Dyslipidemia (Acute) HTN (hypertension) (Acute) Seizure (Acute) DVT (deep venous thrombosis) (Acute) Anoxic brain damage (Acute) MDRO (multiple drug resistant organisms) resistance Multiple drug resistant organism (MDRO) culture positive S/P PEG Allergies/Adverse Reactions: Allergies haloperidol Adverse Reaction (Severe, Verified 06/09/18 09:58) Seizures *MDRO Multi-Drug Resistant Organism Adverse Reaction (Unknown, Uncoded 06/09/18 09:58) Dry Mucus Membranes MRSA (sputum) - 04/25/16 & 05/23/16 MRSA PCR Screen POSITIVE - 04/25/2016 ESBL+E.Coli (blood-05/22/16) Objective Vital Signs 09/05/18 16:00 09/05/18 20:00 09/05/18 20:15 Temperature 98.4 F 99.8 F H Pulse Rate 55 L 103 H 52 L Respiratory Rate 16 20 16 Blood Pressure 132/65 127/63 Pulse Oximetry 98 100 99 09/06/18 00:00 09/06/18 04:00 09/06/18 08:00 Temperature 99.8 F H 98.3 F 98 F Pulse Rate 124 H 81 52 L Respiratory Rate 20 18 18 Blood Pressure 116/57 L 115/57 L 108/61 Pulse Oximetry 100 95 100 09/06/18 09:18 09/06/18 12:00 Temperature 98.1 F Pulse Rate 81 57 L Respiratory Rate 16 18 Blood Pressure 108/52 L Pulse Oximetry 100 100 Intake & Output 09/05/18 09/06/18 09/06/18 18:59 06:59 18:59 Intake Total 200 / 200 580 / 580 100 / 100 Output Total 502 / 502 325 / 325 Balance -302 / -302 255 / 255 100 / 100 Intake: IV 200 / 200 100 / 100 100 / 100 Zerbaxa Inj 1,500 MG In NS Inj 200 / 200 100 / 100 100 / 100 100 ML @ 100 mls/hr IV.SIG Q8H [facility] Rx#:[id number] Oral 480 / 480 Output: Urine 500 / 500 325 / 325 Urine/Stool Mix 2 / 2 Other: Date of Last Bowel Movement 09/05/18 09/05/18 # Bowel Movements 2 08/30/18 18:35 Sputum - Tracheal Aspirate Gram Stain - Final 08/30/18 18:35 Sputum - Tracheal Aspirate Sputum Culture - Final Pseudomonas aeruginosa Escherichia coli ESBL positive Lab - Chemistry Results 09/04/18 09/05/18 09/05/18 17:48 00:08 06:27 POC Glucose 84 107 148 H 09/05/18 09/05/18 09/05/18 11:58 17:17 19:53 POC Glucose 91 97 105 09/06/18 09/06/18 09/06/18 00:17 06:24 12:14 POC Glucose 108 101 109 Imaging: ITS Impressions Abdomen X-Ray 08/23/18 00:00 CONCLUSION: 1. GJ tube projects over the right abdomen. Contrast is identified within the gastric lumen. 2. Nonobstructive bowel gas pattern. No pneumoperitoneum. Gastrostomy Tube Placement 08/24/18 00:00 CONCLUSION: 1. Uncomplicated gastrojejunostomy tube replacement as above. Central Venous Line 08/25/18 00:00 CONCLUSION: 1. Uncomplicated central venous Power PICC line placement. 2. The PICC line can be used immediately. 3. Sutures can be removed in 10 days to 2 weeks. Chest X-Ray 08/29/18 16:11 CONCLUSION: Mild basilar airspace disease slightly improved from August 26. Support apparatus unchanged. Physical Exam: GENERAL: Awake, not interacting. He is on T-piece. SKIN: Warm and dry. No generalized rash. HEAD: Atraumatic. Normocephalic. No temporal wasting, or tenderness. EYES: [place] conjunctiva. No petechia or hemorrhage. No scleral icterus. No injection or drainage. EARS, NOSE AND THROAT: Mucous membranes pink and moist. A lot of oral secretions NECK: Tracheostomy site looks ok. CARDIOVASCULAR: Regular rate and rhythm. No murmurs, rubs or gallops heard RESPIRATORY: Decreased breath sounds at the bases ABDOMEN: Soft, nondistended. PEG site looks ok. Bowel sounds present and normoactive. EXTREMITIES: No clubbing, cyanosis. Both feet plantar flexed. Well perfused and warm. NEUROLOGICAL: No interaction. Some spasticity of all extremities, posturing PSYCHIATRIC: Unable to assess : condom cath in place, urine looks clear LINE: No evidence of infection Assessment and Plan (1) Pneumonia Status: Acute Code(s): J18.9 - Pneumonia, unspecified organism - Plan Impression Sepsis on presentation (fever, tachycardia, leukocytosis, elevated lactic acid, low BP) - [place] resident - likely HCAP vs mucus plugging Recurrent fevers, better, ?plugging - low grade temps - likely plugging - has a lot of secretions Increased eosinophils HCAP, mucus plugging - C/S Providencia and PSAE - repeat C/S pending One +BC with Coag Neg Staph likely contaminant Neutropenia, ?Zyvox, better Hx MDRO infections in the past Chronic vegetative state Renal insufficiency due to sepsis, resolved Recommendation Zerbaxa IV and colistin nebs x 7 days Has been accepted and to go back to his regular SNF I will be available prn D/W RN (1) Pneumonia Qualifiers: Pneumonia type: due to Pseudomonas Laterality: unspecified laterality Lung location: unspecified part of lung Qualified Code(s): J15.1 - Pneumonia due to Pseudomonas
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
[2018-09-07] MEDS: CEFTOLOZANE IV.SIG SCH ×3 (05:52→22:28)
[2018-09-07] MEDS: SODIUM CHLOR 0.9% IV.SIG SCH ×3 (05:52→22:28)
[2018-09-07] MEDS: TAZOBACTAM IV.SIG SCH ×3 (05:52→22:28)
[2018-09-07] MEDS: Insulin NovoLOG Aspart Correctional Sugar Inj SQ SCH ×4 (05:53→18:27)
[2018-09-07] MEDS: Senna/Docusate Sodium 8.6/50 MG Tablet PO SCH ×2 (09:52→22:27)
[2018-09-07] MEDS: Loratadine 10 MG Tablet G-TUBE SCH (09:53)
[2018-09-07] MEDS: Multivitamin w/Vit C Drops 50 ML Bottle G-TUBE SCH (09:55)
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
[2018-09-08] MEDS: Insulin NovoLOG Aspart Correctional Sugar Inj SQ SCH ×4 (00:06→18:02)
[2018-09-08] MEDS: SODIUM CHLOR 0.9% IV.SIG SCH ×3 (05:08→21:17)
[2018-09-08] MEDS: CEFTOLOZANE IV.SIG SCH ×3 (05:08→21:17)
[2018-09-08] MEDS: TAZOBACTAM IV.SIG SCH ×3 (05:08→21:17)
[2018-09-08] MEDS: Loratadine 10 MG Tablet G-TUBE SCH (09:00)
[2018-09-08] MEDS: Senna/Docusate Sodium 8.6/50 MG Tablet PO SCH ×2 (09:00→21:16)
[2018-09-08] MEDS: Hyoscyamine Liq Drops 0.125 MG/ML 15 ML Bottle SL PRN ×2 (09:01→21:20)
[2018-09-08] MEDS: Multivitamin w/Vit C Drops 50 ML Bottle G-TUBE SCH (09:03)
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
[2018-09-08] MEDS: Acetaminophen 325 MG Tablet PO PRN (21:18)
[2018-09-09] MEDS: Insulin NovoLOG Aspart Correctional Sugar Inj SQ SCH ×4 (01:11→17:05)
[2018-09-09] MEDS: Acetaminophen 325 MG Tablet PO PRN (02:36)
[2018-09-09 03:18] LABS: Baso # (Auto) 0.1 th/mm3 (0.0-0.2); Baso % (Auto) 1.1 % (0.0-2.0); Eos # (Auto) 0.4 th/mm3 (0.0-0.4); Eos % (Auto) 4.9 % (0.0-4.0); Hematocrit 42.7 % (39.0-51.0); Hemoglobin 14.1 gm/dL (13.0-17.0); Lymph # (Auto) 1.9 th/mm3 (1.0-4.8); Lymph % (Auto) 25.1 % (9.0-44.0); Mean Corpuscular Hemoglobin 30.9 pg (27.0-34.0); Mean Corpuscular Volume 93.8 fL (80.0-100.0); Mean Platelet Volume 10.6 fL (7.0-11.0); Mono # (Auto) 0.7 th/mm3 (0.0-0.9); Neut # (Auto) 4.6 th/mm3 (1.8-7.7); Neut % (Auto) 59.9 % (16.0-70.0); Platelet Count 250 th/mm3 (150-450); Red Blood Count 4.55 mil/mm3 (4.50-5.90); Red Cell Distribution Width 13.9 % (11.6-17.2); White Blood Count 7.7 th/mm3 (4.0-11.0)
[2018-09-09 03:36] LABS: Albumin 4.1 g/dL (3.4-5.0); Anion Gap 13 meq/L (5-15); Aspartate Aminotransferase 30 U/L (15-37); Blood Urea Nitrogen 18 mg/dL (7-18); Calcium 9.3 mg/dL (8.5-10.1); Chloride 108 meq/L (98-107); Glomerular Filtration Rate Greater Than 89 mL/min (>89); Glucose,Random 98 mg/dL (74-106); Potassium 3.9 meq/L (3.5-5.1); Sodium 146 meq/L (136-145)
[2018-09-09 03:40] LABS: Alanine Aminotransferase 89 U/L (12-78); Alkaline Phosphatase 99 U/L (45-117); Total Protein 8.8 g/dL (6.4-8.2)
[2018-09-09] MEDS ORDERED: Sod Chloride 0.9% Inj 1,000 ML IV.SIG SCH (03:44)
[2018-09-09] MEDS ORDERED: Thiamine Inj 100 MG in Sodium Chlor 0.9% Inj 100 ML IV.SIG ONE (03:45)
--- NOTE | 2018-09-09 05:01 | P.EN ---
Called about sepsis alert. Patient is diaphoretic, and tachycardia. Unable to determine if symptoms are due to anoxic brain injury, pain or infectious process. CBC, BMP, lactic acid, UA and blood cultures ordered. Ativan given. Lactic acid resulted at 5.6, 2L NS bolus given along with Thiamine IV. Will continue to follow up labs and cultures.
[2018-09-09] MEDS: CEFTOLOZANE IV.SIG SCH ×3 (06:18→23:06)
[2018-09-09] MEDS: SODIUM CHLOR 0.9% IV.SIG SCH ×3 (06:18→23:06)
[2018-09-09] MEDS: TAZOBACTAM IV.SIG SCH ×3 (06:18→23:06)
[2018-09-09] MEDS: Loratadine 10 MG Tablet G-TUBE SCH (08:38)
[2018-09-09] MEDS: Senna/Docusate Sodium 8.6/50 MG Tablet PO SCH ×2 (08:38→23:06)
[2018-09-09] MEDS: Multivitamin w/Vit C Drops 50 ML Bottle G-TUBE SCH (08:50)
[2018-09-09] MEDS: Hyoscyamine Liq Drops 0.125 MG/ML 15 ML Bottle SL PRN (08:51)
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
[2018-09-09 11:31] LABS: Bilirubin,Urine Negative (Negative); Clarity,Urine Hazy (Clear); Color,Urine Amber (Yellw/Straw); Glucose,Urine (UA) Negative (Negative); Leukocyte Esterase,Urine Negative (Negative); Mucus,Urine Few /lpf (Occasional); Nitrite,Urine Negative (Negative); Specific Gravity,Urine 1.034 (1.002-1.035)
--- NOTE | 2018-09-09 13:33 | P.PNID ---
Subjective Remarks: Patient is a 33-year-old male, a halfway resident, in a chronic vegetative state, has a trach in place, and PEG, brought into the hospital after he was noted to be coughing up some brown fluid from his tracheostomy. It was felt that it could possibly be coffee-ground emesis. He was also diaphoretic and febrile. In the ED he had a temperature of 102.8. He was initially hypotensive which improved with fluid resuscitation. Chest x-ray showed minimal infiltrate on the left side. His creatinine was elevated at 1.4. White count 13,000. Lactic acid was 8. Patient was admitted as sepsis. Infectious disease consultation has been requested to evaluate the patient. Patient has had multiple admissions to the hospital for similar complaints. He has had infections with multidrug-resistant organisms including MDR Pseudomonas , ESBL positive organisms. Notes reviewed Temps higer overnight Events of last night noted Temps better UA ok PICC to be removed No nolasco Antibiotics: Zerbaxa Colistin nebs Lines: RSC central line - 08/25 Past Medical History: Tracheostomy dependent (Acute) GERD (gastroesophageal reflux disease) (Acute) Pancreatitis (Acute) Diabetes mellitus (Acute) Dyslipidemia (Acute) HTN (hypertension) (Acute) Seizure (Acute) DVT (deep venous thrombosis) (Acute) Anoxic brain damage (Acute) MDRO (multiple drug resistant organisms) resistance Multiple drug resistant organism (MDRO) culture positive S/P PEG Allergies/Adverse Reactions: Allergies haloperidol Adverse Reaction (Severe, Verified 06/09/18 09:58) Seizures *MDRO Multi-Drug Resistant Organism Adverse Reaction (Unknown, Uncoded 06/09/18 09:58) Dry Mucus Membranes MRSA (sputum) - 04/25/16 & 05/23/16 MRSA PCR Screen POSITIVE - 04/25/2016 ESBL+E.Coli (blood-05/22/16) Objective Vital Signs 09/08/18 16:00 09/08/18 20:00 09/08/18 20:40 Temperature 97.8 F 99.3 F Pulse Rate 53 L 58 L Respiratory Rate 18 22 Blood Pressure 112/57 L 168/74 H Pulse Oximetry 100 100 100 09/09/18 00:00 09/09/18 01:45 09/09/18 02:41 Temperature 100.9 F H 99.4 F Pulse Rate 78 140 H 135 H Respiratory Rate 26 H 40 H Blood Pressure 134/61 135/75 Pulse Oximetry 99 97 09/09/18 04:00 09/09/18 04:30 09/09/18 06:00 Temperature 100.4 F H 99.4 F Pulse Rate 64 138 H 87 Respiratory Rate 32 H 22 Blood Pressure 110/73 Pulse Oximetry 96 99 09/09/18 08:00 09/09/18 08:07 09/09/18 11:57 Temperature 98.0 F 99.0 F Pulse Rate 54 L 51 L 60 Respiratory Rate 16 16 17 Blood Pressure 90/42 L 114/54 L Pulse Oximetry 100 100 Intake & Output 09/08/18 09/09/18 09/09/18 18:59 06:59 18:59 Intake Total 100 / 100 2173 / 2173 100 / 100 Output Total 400 / 400 850 / 850 Balance -300 / -300 1323 / 1323 100 / 100 Weight 71 kg Intake: IV 100 / 100 1201 / 1201 100 / 100 Zerbaxa Inj 1,500 MG In NS Inj 100 / 100 100 / 100 100 / 100 100 ML @ 100 mls/hr IV.SIG Q8H COUNT INCLUDES THE [facility] Rx#:[id number] NS Inj 1,000 ML @ 2000 mls/hr 1000 / 1000 IV.SIG BOLUS SHAYNA Rx#:[id number] Thiamine Inj 100 MG In NS Inj 101 / 101 100 ML @ 100 mls/hr IV.SIG ONCE ONE Rx#:[id number] Oral 0 / 0 Tube Feeding 822 / 822 Tube Irrigant 150 / 150 Output: Urine 400 / 400 850 / 850 Other: Date of Last Bowel Movement 09/08/18 09/08/18 # Bowel Movements 1 0 09/09/18 06:50 Blood - Peripheral Aerobic Blood Culture - Pending 09/09/18 06:50 Blood - Peripheral Anaerobic Blood Culture - Pending 09/09/18 06:50 Blood - Peripheral Aerobic Blood Culture - Pending 09/09/18 06:50 Blood - Peripheral Anaerobic Blood Culture - Pending Lab - Hematology Results 09/09/18 02:50 WBC 7.7 RBC 4.55 Hgb 14.1 Hct 42.7 MCV 93.8 MCH 30.9 MCHC 33.0 RDW 13.9 Plt Count 250 MPV 10.6 Neut % (Auto) 59.9 Lymph % (Auto) 25.1 [place] % (Auto) 9.0 H Eos % (Auto) 4.9 H Baso % (Auto) 1.1 Neut # (Auto) 4.6 Lymph # (Auto) 1.9 [place] # (Auto) 0.7 Eos # (Auto) 0.4 Baso # (Auto) 0.1 WBC Differential . Differential Comment Auto diff final Lab - Chemistry Results 09/07/18 09/07/18 09/08/18 18:09 22:32 04:31 Sodium Potassium Chloride Carbon Dioxide Anion Gap BUN Creatinine Estimated GFR POC Glucose 108 98 121 H Random Glucose Lactic Acid Calcium Total Bilirubin AST ALT Alkaline Phosphatase Total Protein Albumin 09/08/18 09/08/18 09/08/18 12:02 17:54 20:52 Sodium Potassium Chloride Carbon Dioxide Anion Gap BUN Creatinine Estimated GFR POC Glucose 102 93 97 Random Glucose Lactic Acid Calcium Total Bilirubin AST ALT Alkaline Phosphatase Total Protein Albumin 09/09/18 09/09/18 09/09/18 01:11 02:50 02:50 Sodium 146 H Potassium 3.9 Chloride 108 H Carbon Dioxide 25.0 Anion Gap 13 BUN 18 Creatinine 0.97 Estimated GFR Greater than 89 POC Glucose 109 Random Glucose 98 Lactic Acid 5.6 H* Calcium 9.3 Total Bilirubin 0.1 L AST 30 ALT 89 H Alkaline Phosphatase 99 Total Protein 8.8 H Albumin 4.1 09/09/18 09/09/18 09/09/18 05:35 06:12 11:41 Sodium Potassium Chloride Carbon Dioxide Anion Gap BUN Creatinine Estimated GFR POC Glucose 71 87 Random Glucose Lactic Acid 0.8 Calcium Total Bilirubin AST ALT Alkaline Phosphatase Total Protein Albumin Imaging: ITS Impressions Abdomen X-Ray 08/23/18 00:00 CONCLUSION: 1. GJ tube projects over the right abdomen. Contrast is identified within the gastric lumen. 2. Nonobstructive bowel gas pattern. No pneumoperitoneum. Gastrostomy Tube Placement 08/24/18 00:00 CONCLUSION: 1. Uncomplicated gastrojejunostomy tube replacement as above. Central Venous Line 08/25/18 00:00 CONCLUSION: 1. Uncomplicated central venous Power PICC line placement. 2. The PICC line can be used immediately. 3. Sutures can be removed in 10 days to 2 weeks. Chest X-Ray 08/29/18 16:11 CONCLUSION: Mild basilar airspace disease slightly improved from August 26. Support apparatus unchanged. Physical Exam: GENERAL: Awake, not interacting. He is on T-piece. SKIN: Warm and dry. No generalized rash. HEAD: Atraumatic. Normocephalic. No temporal wasting, or tenderness. EYES: [place] conjunctiva. No petechia or hemorrhage. No scleral icterus. No injection or drainage. EARS, NOSE AND THROAT: Mucous membranes pink and moist. Not drooling at the time of my exam NECK: Tracheostomy site looks ok. CARDIOVASCULAR: Regular rate and rhythm. No murmurs, rubs or gallops heard RESPIRATORY: Decreased breath sounds at the bases ABDOMEN: Soft, nondistended. PEG site looks ok. Bowel sounds present and normoactive. EXTREMITIES: No clubbing, cyanosis. Both feet plantar flexed. Well perfused and warm. NEUROLOGICAL: No interaction. Some spasticity of all extremities, posturing PSYCHIATRIC: Unable to assess : condom cath in place, urine looks clear LINE: No evidence of infection Assessment and Plan (1) Pneumonia Status: Acute Code(s): J18.9 - Pneumonia, unspecified organism - Plan Impression Sepsis on presentation (fever, tachycardia, leukocytosis, elevated lactic acid, low BP) - [place] resident - likely HCAP vs mucus plugging Recurrent fevers, better, ?plugging - low grade temps - likely plugging - has a lot of secretions Increased eosinophils HCAP, mucus plugging - C/S Providencia and PSAE - repeat C/S pending One +BC with Coag Neg Staph likely contaminant Neutropenia, ?Zyvox, better Hx MDRO infections in the past Chronic vegetative state Renal insufficiency due to sepsis, resolved Recommendation On Zerbaxa IV and colistin nebs x 7 days PICC to be removed - send tip for C/S CXR Follow temps Monitor progress D/W RN (1) Pneumonia Qualifiers: Pneumonia type: due to Pseudomonas Laterality: unspecified laterality Lung location: unspecified part of lung Qualified Code(s): J15.1 - Pneumonia due to Pseudomonas
--- NOTE | 2018-09-09 14:26 | XR ---
EXAM DATE: 09/09/2018 2:22 PM EST AGE/SEX: 33 years / Male INDICATIONS: Fever. CLINICAL DATA: This is the patient's initial encounter. Patient reports that signs and symptoms have been present for 1 week and indicates a pain score of Nonresponsive. MEDICAL/SURGICAL HISTORY: Gastroesophageal reflux disease. Pancreatitis. Hypertension. diabe tic, seizures,DVT, Anoxic brain damage . tracheostomy,peg tube COMPARISON: [facility], CHEST 1V SINGLE AP, 08/29/2018. . FINDINGS: 2 AP views of the chest. Tracheostomy tube remains in place. Right sided central venous catheter yash ins in place. Cardiac silhouette is enlarged but unchanged. Mild patchy left lung base opacity indica ting atelectasis slightly increased. No evidence of pneumothorax or pleural effusion. CONCLUSION: Slight increase in patchy left lung base opacity. Electronically signed by: Gus Spence MD 09/09/2018 2:25 PM EST
[2018-09-10] MEDS: Insulin NovoLOG Aspart Correctional Sugar Inj SQ SCH ×4 (00:13→18:35)
[2018-09-10] MEDS: Hyoscyamine Liq Drops 0.125 MG/ML 15 ML Bottle SL PRN ×2 (00:14→05:21)
[2018-09-10] MEDS: SODIUM CHLOR 0.9% IV.SIG SCH (05:20)
[2018-09-10] MEDS: CEFTOLOZANE IV.SIG SCH (05:20)
[2018-09-10] MEDS: TAZOBACTAM IV.SIG SCH (05:20)
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
[2018-09-10] MEDS: Senna/Docusate Sodium 8.6/50 MG Tablet PO SCH ×2 (09:40→20:39)
[2018-09-10] MEDS: Loratadine 10 MG Tablet G-TUBE SCH (09:40)
[2018-09-10] MEDS: Multivitamin w/Vit C Drops 50 ML Bottle G-TUBE SCH (09:44)
--- NOTE | 2018-09-10 14:06 | P.DIET ---
Nutritional Evaluation Type of nutrition evaluation: follow-up Nutrition consult regarding: Tube Feeding Nutrition screening: Weight Loss > 10 lbs Objective - Diagnosis Fever, Sepsis, coffee ground emesis - Objective % IBW: 94 (IBW = 166#) Body Weight Used for Calculations: Actual (71) Energy Needs - Lower Range (kCal/kg): 28 Energy Needs - Upper Range (kCal/kg): 32 Lower Limit kCal/kg (kCals): 1,988 Upper Limit kCal/kg (kCals): 2,272 Lower Limit Protein Factor (Grams per Kg): 1.2 Upper Limit Protein Factor (Grams per Kg): 1.5 Lower Protein Needs (Protein): 85 Upper Protein Needs (Protein): 107 Fluid Factor (ml/kg): 32 Estimated Fluid Needs (ml): 2,272 Dietitian Reviewed in Medical Record: Curent medications, Intake & Output, Labs , Medical history, Tube feeding Diet Order: TF only Objective Comments: PMH: Anoxic brain damage, pt with trach and PEG, nonverbal. Assessment Assessment: Pt continues at high nutrition risk 2' to his dependence on TFing for his nutrition. Current order is for Jevity 1.5 @ 85 mls/hr. This provides 3060 kcals , 130 gms protein and 1550 mls of free water. This rate is overfeeding. Recommend decrease TF rate to 60 mls/hr to provide 2160 kcals, 92 gms protein and 1094 mls of free water. Pt will need additional water flush of 180 mls q 4 hours to meet fluid needs. Labs, wts and clinical course reviewed. CBW = 71 kg Recommendations: Decrease Jevity 1.5 to 60 mls/hr goal Dietitian to Monitor: Lab values, Intake & Output, Tube feeding tolerance, Weight change, Medical course
--- NOTE | 2018-09-10 15:25 | P.PNID ---
Subjective Remarks: Patient is a 33-year-old male, a [place] resident, in a chronic vegetative state, has a trach in place, and PEG, brought into the hospital after he was noted to be coughing up some brown fluid from his tracheostomy. It was felt that it could possibly be coffee-ground emesis. He was also diaphoretic and febrile. In the ED he had a temperature of 102.8. He was initially hypotensive which improved with fluid resuscitation. Chest x-ray showed minimal infiltrate on the left side. His creatinine was elevated at 1.4. White count 13,000. Lactic acid was 8. Patient was admitted as sepsis. Infectious disease consultation has been requested to evaluate the patient. Patient has had multiple admissions to the hospital for similar complaints. He has had infections with multidrug-resistant organisms including MDR Pseudomonas , ESBL positive organisms. Notes reviewed Temps ok UA ok PICC to be removed BC negative No nolasco Antibiotics: Zerbaxa - finished Colistin nebs Lines: RSC central line - 08/25 Past Medical History: Tracheostomy dependent (Acute) GERD (gastroesophageal reflux disease) (Acute) Pancreatitis (Acute) Diabetes mellitus (Acute) Dyslipidemia (Acute) HTN (hypertension) (Acute) Seizure (Acute) DVT (deep venous thrombosis) (Acute) Anoxic brain damage (Acute) MDRO (multiple drug resistant organisms) resistance Multiple drug resistant organism (MDRO) culture positive S/P PEG Allergies/Adverse Reactions: Allergies haloperidol Adverse Reaction (Severe, Verified 06/09/18 09:58) Seizures *MDRO Multi-Drug Resistant Organism Adverse Reaction (Unknown, Uncoded 06/09/18 09:58) Dry Mucus Membranes MRSA (sputum) - 04/25/16 & 05/23/16 MRSA PCR Screen POSITIVE - 04/25/2016 ESBL+E.Coli (blood-05/22/16) Objective Vital Signs 09/09/18 16:00 09/09/18 19:00 09/09/18 20:00 Temperature 98.4 F 97.8 F Pulse Rate 53 L 80 63 Respiratory Rate 16 20 22 Blood Pressure 115/56 L 133/63 Pulse Oximetry 99 98 09/09/18 20:01 09/09/18 23:49 09/10/18 00:00 Temperature 98.2 F Pulse Rate 59 L 53 L 52 L Respiratory Rate 22 Blood Pressure 129/60 Pulse Oximetry 100 09/10/18 04:00 09/10/18 07:33 09/10/18 07:36 Temperature 98.4 F 97.5 F L Pulse Rate 51 L 66 Respiratory Rate 18 19 Blood Pressure 101/69 101/55 L Pulse Oximetry 100 100 09/10/18 08:00 09/10/18 10:17 09/10/18 12:00 Temperature Pulse Rate 54 L 44 L Respiratory Rate Blood Pressure Pulse Oximetry 94 L 98 09/10/18 12:06 Temperature 97.9 F Pulse Rate 44 L Respiratory Rate 19 Blood Pressure 141/63 H Pulse Oximetry Intake & Output 09/09/18 09/10/18 09/10/18 18:59 06:59 18:59 Intake Total 200 / 200 1472 / 1472 Output Total 300 / 300 875 / 875 Balance -100 / -100 597 / 597 Intake: IV 200 / 200 200 / 200 Zerbaxa Inj 1,500 MG In NS Inj 200 / 200 200 / 200 100 ML @ 100 mls/hr IV.SIG Q8H [facility] Rx#:[id number] Tube Feeding 1122 / 1122 Tube Irrigant 150 / 150 Output: Urine 300 / 300 875 / 875 Other: Date of Last Bowel Movement 09/08/18 09/10/18 # Bowel Movements 1 09/09/18 06:50 Blood - Peripheral Aerobic Blood Culture - Preliminary No growth in 1 day 09/09/18 06:50 Blood - Peripheral Anaerobic Blood Culture - Preliminary No growth in 1 day 09/09/18 06:50 Blood - Peripheral Aerobic Blood Culture - Preliminary No growth in 1 day 09/09/18 06:50 Blood - Peripheral Anaerobic Blood Culture - Preliminary No growth in 1 day 09/09/18 15:45 Catheter Tip - Subclavian Wound Culture - Preliminary No growth in 24 hours Lab - Hematology Results 09/09/18 02:50 WBC 7.7 RBC 4.55 Hgb 14.1 Hct 42.7 MCV 93.8 MCH 30.9 MCHC 33.0 RDW 13.9 Plt Count 250 MPV 10.6 Neut % (Auto) 59.9 Lymph % (Auto) 25.1 [place] % (Auto) 9.0 H Eos % (Auto) 4.9 H Baso % (Auto) 1.1 Neut # (Auto) 4.6 Lymph # (Auto) 1.9 [place] # (Auto) 0.7 Eos # (Auto) 0.4 Baso # (Auto) 0.1 WBC Differential . Differential Comment Auto diff final Lab - Chemistry Results 09/08/18 09/08/18 09/09/18 17:54 20:52 01:11 Sodium Potassium Chloride Carbon Dioxide Anion Gap BUN Creatinine Estimated GFR POC Glucose 93 97 109 Random Glucose Lactic Acid Calcium Total Bilirubin AST ALT Alkaline Phosphatase Total Protein Albumin 09/09/18 09/09/18 09/09/18 02:50 02:50 05:35 Sodium 146 H Potassium 3.9 Chloride 108 H Carbon Dioxide 25.0 Anion Gap 13 BUN 18 Creatinine 0.97 Estimated GFR Greater than 89 POC Glucose Random Glucose 98 Lactic Acid 5.6 H* 0.8 Calcium 9.3 Total Bilirubin 0.1 L AST 30 ALT 89 H Alkaline Phosphatase 99 Total Protein 8.8 H Albumin 4.1 09/09/18 09/09/18 09/09/18 06:12 11:41 17:03 Sodium Potassium Chloride Carbon Dioxide Anion Gap BUN Creatinine Estimated GFR POC Glucose 71 87 93 Random Glucose Lactic Acid Calcium Total Bilirubin AST ALT Alkaline Phosphatase Total Protein Albumin 09/10/18 09/10/18 09/10/18 00:11 05:19 11:26 Sodium Potassium Chloride Carbon Dioxide Anion Gap BUN Creatinine Estimated GFR POC Glucose 99 103 82 Random Glucose Lactic Acid Calcium Total Bilirubin AST ALT Alkaline Phosphatase Total Protein Albumin Imaging: ITS Impressions Abdomen X-Ray 08/23/18 00:00 CONCLUSION: 1. GJ tube projects over the right abdomen. Contrast is identified within the gastric lumen. 2. Nonobstructive bowel gas pattern. No pneumoperitoneum. Gastrostomy Tube Placement 08/24/18 00:00 CONCLUSION: 1. Uncomplicated gastrojejunostomy tube replacement as above. Central Venous Line 08/25/18 00:00 CONCLUSION: 1. Uncomplicated central venous Power PICC line placement. 2. The PICC line can be used immediately. 3. Sutures can be removed in 10 days to 2 weeks. Chest X-Ray 09/09/18 00:00 CONCLUSION: Slight increase in patchy left lung base opacity. Physical Exam: GENERAL: Awake, not interacting. He is on T-piece. SKIN: Warm and dry. No generalized rash. HEAD: Atraumatic. Normocephalic. No temporal wasting, or tenderness. EYES: [place] conjunctiva. No petechia or hemorrhage. No scleral icterus. No injection or drainage. EARS, NOSE AND THROAT: Mucous membranes pink and moist. Not drooling at the time of my exam NECK: Tracheostomy site looks ok. CARDIOVASCULAR: Regular rate and rhythm. No murmurs, rubs or gallops heard RESPIRATORY: Decreased breath sounds at the bases ABDOMEN: Soft, nondistended. PEG site looks ok. Bowel sounds present and normoactive. EXTREMITIES: No clubbing, cyanosis. Both feet plantar flexed. Well perfused and warm. NEUROLOGICAL: No interaction. Some spasticity of all extremities, posturing PSYCHIATRIC: Unable to assess : condom cath in place, urine looks clear LINE: No evidence of infection Assessment and Plan (1) Pneumonia Status: Acute Code(s): J18.9 - Pneumonia, unspecified organism - Plan Impression Sepsis on presentation (fever, tachycardia, leukocytosis, elevated lactic acid, low BP) - [place] resident - likely HCAP vs mucus plugging Recurrent fevers, better, ?plugging - low grade temps - likely plugging - has a lot of secretions Increased eosinophils HCAP, mucus plugging - C/S Providencia and PSAE - repeat C/S pending One +BC with Coag Neg Staph likely contaminant Neutropenia, ?Zyvox, better Hx MDRO infections in the past Chronic vegetative state Renal insufficiency due to sepsis, resolved Recommendation Monitor off Abx On colistin nebs Follow C/S If BC negative and temps ok, should be able to D/C back to SNF Follow temps Monitor progress (1) Pneumonia Qualifiers: Pneumonia type: due to Pseudomonas Laterality: unspecified laterality Lung location: unspecified part of lung Qualified Code(s): J15.1 - Pneumonia due to Pseudomonas
[2018-09-11] MEDS: Insulin NovoLOG Aspart Correctional Sugar Inj SQ SCH ×4 (00:11→17:20)
[2018-09-11] MEDS: Multivitamin w/Vit C Drops 50 ML Bottle G-TUBE SCH (08:11)
[2018-09-11] MEDS: Senna/Docusate Sodium 8.6/50 MG Tablet PO SCH ×2 (08:11→21:32)
[2018-09-11] MEDS: Loratadine 10 MG Tablet G-TUBE SCH (08:11)
[2018-09-11] MEDS: Hyoscyamine Liq Drops 0.125 MG/ML 15 ML Bottle SL PRN ×2 (08:29→13:55)
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
[2018-09-12] MEDS: Insulin NovoLOG Aspart Correctional Sugar Inj SQ SCH ×2 (06:29)
[2018-09-12] MEDS: Loratadine 10 MG Tablet G-TUBE SCH (08:00)
[2018-09-12] MEDS: Senna/Docusate Sodium 8.6/50 MG Tablet PO SCH ×2 (08:00→21:01)
[2018-09-12] MEDS: Multivitamin w/Vit C Drops 50 ML Bottle G-TUBE SCH (08:00)
[2018-09-12] MEDS: Hyoscyamine Liq Drops 0.125 MG/ML 15 ML Bottle SL PRN ×2 (08:01→13:04)
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
[2018-09-12 11:41] LABS: Hemoglobin A1c 5.4 % (4.3-6.0)
[2018-09-13 08:13] VITALS: O2SAT 100
[2018-09-13] MEDS: Senna/Docusate Sodium 8.6/50 MG Tablet PO SCH (09:32)
[2018-09-13] MEDS: Loratadine 10 MG Tablet G-TUBE SCH (09:32)
[2018-09-13] MEDS: Hyoscyamine Liq Drops 0.125 MG/ML 15 ML Bottle SL PRN (09:33)
[2018-09-13] MEDS: Multivitamin w/Vit C Drops 50 ML Bottle G-TUBE SCH (09:33)
[2018-09-13 09:53] LABS: Baso % (Auto) 0.3 % (0.0-2.0); Eos # (Auto) 0.5 th/mm3 (0.0-0.4); Eos % (Auto) 6.6 % (0.0-4.0); Hematocrit 38.8 % (39.0-51.0); Hemoglobin 13.1 gm/dL (13.0-17.0); Lymph # (Auto) 1.3 th/mm3 (1.0-4.8); Lymph % (Auto) 18.4 % (9.0-44.0); Mean Corpuscular HGB Conc 33.9 % (32.0-36.0); Mean Corpuscular Hemoglobin 31.5 pg (27.0-34.0); Mean Corpuscular Volume 93.1 fL (80.0-100.0); Mean Platelet Volume 11.3 fL (7.0-11.0); Mono # (Auto) 0.8 th/mm3 (0.0-0.9); Mono % (Auto) 10.8 % (0.0-8.0); Neut # (Auto) 4.5 th/mm3 (1.8-7.7); Neut % (Auto) 63.9 % (16.0-70.0); Platelet Count 168 th/mm3 (150-450); Red Blood Count 4.17 mil/mm3 (4.50-5.90); Red Cell Distribution Width 14.1 % (11.6-17.2); White Blood Count 7.1 th/mm3 (4.0-11.0)
[2018-09-13 10:15] LABS: Anion Gap 7 meq/L (5-15); Blood Urea Nitrogen 11 mg/dL (7-18); Calcium 8.9 mg/dL (8.5-10.1); Carbon Dioxide 28.8 meq/L (21.0-32.0); Chloride 104 meq/L (98-107); Glomerular Filtration Rate Greater Than 89 mL/min (>89); Glucose,Random 79 mg/dL (74-106); Potassium 4.3 meq/L (3.5-5.1); Sodium 140 meq/L (136-145)
--- NOTE | 2018-09-13 11:52 | P.PNID ---
Subjective Remarks: Patient is a 33-year-old male, a half-way resident, in a chronic vegetative state, has a trach in place, and PEG, brought into the hospital after he was noted to be coughing up some brown fluid from his tracheostomy. It was felt that it could possibly be coffee-ground emesis. He was also diaphoretic and febrile. In the ED he had a temperature of 102.8. He was initially hypotensive which improved with fluid resuscitation. Chest x-ray showed minimal infiltrate on the left side. His creatinine was elevated at 1.4. White count 13,000. Lactic acid was 8. Patient was admitted as sepsis. Infectious disease consultation has been requested to evaluate the patient. Patient has had multiple admissions to the hospital for similar complaints. He has had infections with multidrug-resistant organisms including MDR Pseudomonas , ESBL positive organisms. Notes reviewed Temps ok UA ok BC negative No nolasco Antibiotics: Zerbaxa - finished Colistin nebs Lines: RSC central line - 08/25 Past Medical History: Tracheostomy dependent (Acute) GERD (gastroesophageal reflux disease) (Acute) Pancreatitis (Acute) Diabetes mellitus (Acute) Dyslipidemia (Acute) HTN (hypertension) (Acute) Seizure (Acute) DVT (deep venous thrombosis) (Acute) Anoxic brain damage (Acute) MDRO (multiple drug resistant organisms) resistance Multiple drug resistant organism (MDRO) culture positive S/P PEG Allergies/Adverse Reactions: Allergies haloperidol Adverse Reaction (Severe, Verified 06/09/18 09:58) Seizures *MDRO Multi-Drug Resistant Organism Adverse Reaction (Unknown, Uncoded 06/09/18 09:58) Dry Mucus Membranes MRSA (sputum) - 04/25/16 & 05/23/16 MRSA PCR Screen POSITIVE - 04/25/2016 ESBL+E.Coli (blood-05/22/16) Objective Vital Signs 09/12/18 12:00 09/12/18 16:00 09/12/18 20:00 Temperature 98 F 97.8 F 98.1 F Pulse Rate 51 L 46 L 48 L Respiratory Rate 18 Blood Pressure 109/57 L 121/53 L 119/87 Pulse Oximetry 97 97 99 09/13/18 00:00 09/13/18 04:00 09/13/18 08:00 Temperature 98.1 F 98.1 F 98.3 F Pulse Rate 59 L 63 46 L Respiratory Rate 16 18 16 Blood Pressure 132/78 138/64 140/63 Pulse Oximetry 98 98 100 09/13/18 08:08 Temperature Pulse Rate 63 Respiratory Rate 16 Blood Pressure Pulse Oximetry 100 Intake & Output 09/12/18 09/13/18 09/13/18 18:59 06:59 18:59 Intake Total 0 / 0 Output Total 600 / 600 400 / 400 Balance -600 / -600 -400 / -400 Weight 69.6 kg Intake: Oral 0 / 0 Output: Urine 600 / 600 Urine Amount (Catheter) 400 / 400 Condom 400 / 400 Other: # Incontinent Voids 1 Date of Last Bowel Movement 09/10/18 # Bowel Movements 2 # Incontinent Bowel Movements 2 09/09/18 06:50 Blood - Peripheral Aerobic Blood Culture - Preliminary No growth in 4 days 09/09/18 06:50 Blood - Peripheral Anaerobic Blood Culture - Preliminary No growth in 4 days 09/09/18 06:50 Blood - Peripheral Aerobic Blood Culture - Preliminary No growth in 4 days 09/09/18 06:50 Blood - Peripheral Anaerobic Blood Culture - Preliminary No growth in 4 days 09/09/18 15:45 Catheter Tip - Subclavian Wound Culture - Final No growth in 72 hours Lab - Hematology Results 09/13/18 09:31 WBC 7.1 RBC 4.17 L Hgb 13.1 Hct 38.8 L MCV 93.1 MCH 31.5 MCHC 33.9 RDW 14.1 Plt Count 168 D MPV 11.3 H Neut % (Auto) 63.9 Lymph % (Auto) 18.4 [place] % (Auto) 10.8 H Eos % (Auto) 6.6 H Baso % (Auto) 0.3 Neut # (Auto) 4.5 Lymph # (Auto) 1.3 [place] # (Auto) 0.8 Eos # (Auto) 0.5 H Baso # (Auto) 0.0 WBC Differential . Differential Comment Auto diff final Lab - Chemistry Results 09/11/18 09/11/18 09/11/18 13:24 16:30 16:48 Sodium Potassium Chloride Carbon Dioxide Anion Gap BUN Creatinine Estimated GFR POC Glucose 119 H 102 Random Glucose Hemoglobin A1c 5.4 Calcium 09/12/18 09/12/18 09/13/18 01:16 05:53 09:31 Sodium 140 Potassium 4.3 Chloride 104 Carbon Dioxide 28.8 Anion Gap 7 BUN 11 Creatinine 0.68 Estimated GFR Greater than 89 POC Glucose 94 82 Random Glucose 79 Hemoglobin A1c Calcium 8.9 Imaging: ITS Impressions Abdomen X-Ray 08/23/18 00:00 CONCLUSION: 1. GJ tube projects over the right abdomen. Contrast is identified within the gastric lumen. 2. Nonobstructive bowel gas pattern. No pneumoperitoneum. Gastrostomy Tube Placement 08/24/18 00:00 CONCLUSION: 1. Uncomplicated gastrojejunostomy tube replacement as above. Central Venous Line 08/25/18 00:00 CONCLUSION: 1. Uncomplicated central venous Power PICC line placement. 2. The PICC line can be used immediately. 3. Sutures can be removed in 10 days to 2 weeks. Chest X-Ray 09/09/18 00:00 CONCLUSION: Slight increase in patchy left lung base opacity. Physical Exam: GENERAL: Awake, not interacting. He is on T-piece. SKIN: Warm and dry. No generalized rash. HEAD: Atraumatic. Normocephalic. No temporal wasting, or tenderness. EYES: [place] conjunctiva. No petechia or hemorrhage. No scleral icterus. No injection or drainage. EARS, NOSE AND THROAT: Mucous membranes pink and moist. Not drooling at the time of my exam NECK: Tracheostomy site looks ok. CARDIOVASCULAR: Regular rate and rhythm. No murmurs, rubs or gallops heard RESPIRATORY: Decreased breath sounds at the bases ABDOMEN: Soft, nondistended. PEG site looks ok. Bowel sounds present and normoactive. EXTREMITIES: No clubbing, cyanosis. Both feet plantar flexed. Well perfused and warm. NEUROLOGICAL: No interaction. Some spasticity of all extremities, posturing PSYCHIATRIC: Unable to assess : condom cath in place, urine looks clear LINE: No evidence of infection Assessment and Plan (1) Pneumonia Status: Acute Code(s): J18.9 - Pneumonia, unspecified organism - Plan Impression Sepsis on presentation (fever, tachycardia, leukocytosis, elevated lactic acid, low BP) - [facility] resident - likely HCAP vs mucus plugging Recurrent fevers, better, ?plugging - low grade temps - likely plugging - has a lot of secretions Increased eosinophils HCAP, mucus plugging - C/S Providencia and PSAE - repeat C/S pending One +BC with Coag Neg Staph likely contaminant Neutropenia, ?Zyvox, better Hx MDRO infections in the past Chronic vegetative state Renal insufficiency due to sepsis, resolved Recommendation Stop Colistin nebs OK to D/C Clinically stable from ID standpoint (1) Pneumonia Qualifiers: Pneumonia type: due to Pseudomonas Laterality: unspecified laterality Lung location: unspecified part of lung Qualified Code(s): J15.1 - Pneumonia due to Pseudomonas
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
[2018-09-13 18:11] VITALS: BP 135/62; PULSE 49; RESP 18; TEMP 98.5
== END 2018-09-13 18:14 ==
LOC: NEPC 22:24 → NEDA 23:07 → HIMC 08-22 → N04 09-02 14:49
PROVIDERS: ADMIT Hospitalist; ATTEND Hospitalist
PROC: PANENDO (2018-08-26 13:44)

== ENCOUNTER 2018-09-23 02:32 | Inpatient (IN) ==
[2018-09-23] MEDS ORDERED: Vancomycin Inj 1,000 MG in Sodium Chlor 0.9% Inj 250 ML IV.SIG STA (02:47)
[2018-09-23] MEDS ORDERED: Piperacil/Tazo 4.5 GM Premix 4.5 GM/100 ML BAG IV.SIG STA (02:47)
[2018-09-23] MEDS ORDERED: Sod Chloride 0.9% Inj 1,000 ML IV.SIG SCH ×2 (03:00)
[2018-09-23] MEDS ORDERED: Sod Chloride 0.9% Inj 100 ML IV.SIG SCH (03:00)
[2018-09-23 03:06] LABS: Baso % (Auto) 0.5 % (0.0-2.0); Eos % (Auto) 0.6 % (0.0-4.0); Hematocrit 41.2 % (39.0-51.0); Hemoglobin 13.9 gm/dL (13.0-17.0); Lymph # (Auto) 1.6 th/mm3 (1.0-4.8); Mean Corpuscular HGB Conc 33.6 % (32.0-36.0); Mean Corpuscular Hemoglobin 31.1 pg (27.0-34.0); Mean Corpuscular Volume 92.5 fL (80.0-100.0); Mean Platelet Volume 9.9 fL (7.0-11.0); Mono # (Auto) 0.8 th/mm3 (0.0-0.9); Mono % (Auto) 10.1 % (0.0-8.0); Neut # (Auto) 5.2 th/mm3 (1.8-7.7); Neut % (Auto) 67.8 % (16.0-70.0); Platelet Count 228 th/mm3 (150-450); Red Blood Count 4.45 mil/mm3 (4.50-5.90); Red Cell Distribution Width 14.1 % (11.6-17.2); White Blood Count 7.7 th/mm3 (4.0-11.0)
--- NOTE | 2018-09-23 03:11 | XR ---
EXAM DATE: 09/23/2018 3:08 AM EST AGE/SEX: 33 years / Male INDICATIONS: Shortness of breath. CLINICAL DATA: This is the patient's initial encounter. Patient reports that signs and symptoms have been present for 1 day and indicates a pain score of Nonresponsive. MEDICAL/SURGICAL HISTORY: . Gastroesophageal reflux disease. Pancreatitis. Hypertension. diabet ic, seizures,DVT, Anoxic brain damage. . Tracheostomy,peg tube COMPARISON: [facility], CHEST 1V SINGLE AP, 09/09/2018. . FINDINGS: Single AP view the chest. Tracheostomy tube remains in place. The lungs are clear. Cardiac silhouette is enlarged but unchanged.. No evidence of pleural effusion or pneumothorax. CONCLUSION: Chronic cardiac silhouette enlargement. No acute cardiopulmonary disease identified. Electronically signed by: Gus Spence MD 09/23/2018 3:10 AM EST
[2018-09-23 03:33] LABS: Alanine Aminotransferase 60 U/L (12-78); Albumin 3.9 g/dL (3.4-5.0); Anion Gap 10 meq/L (5-15); Aspartate Aminotransferase 47 U/L (15-37); Blood Urea Nitrogen 13 mg/dL (7-18); Chloride 105 meq/L (98-107); Glomerular Filtration Rate Greater Than 89 mL/min (>89); Glucose,Random 120 mg/dL (74-106); Magnesium 2.3 mg/dL (1.5-2.5); Potassium 3.5 meq/L (3.5-5.1); Sodium 141 meq/L (136-145)
[2018-09-23 03:36] LABS: Alkaline Phosphatase 96 U/L (45-117); Total Protein 8.1 g/dL (6.4-8.2)
[2018-09-23 03:52] LABS: Bilirubin,Urine Negative (Negative); Clarity,Urine Hazy (Clear); Color,Urine Yellow (Yellw/Straw); Glucose,Urine (UA) Negative (Negative); Hyaline Casts,Urine 17 /lpf (0-3); Leukocyte Esterase,Urine Negative (Negative); Mucus,Urine Moderate /lpf (Occasional); Nitrite,Urine Negative (Negative); Specific Gravity,Urine 1.033 (1.002-1.035)
--- NOTE | 2018-09-23 04:47 | ED ---
HPI General Chief complaint: Respiratory Symptoms Stated complaint: resp Time Seen by Provider: 09/23/18 02:40 Source: EMS Mode of arrival: EMS Limitations: altered mental status History of Present Illness HPI narrative: Patient is a 33-year-old male, past medical history significant for anoxic encephalopathy which left him with a chronic trach and PEG, who presents from the longterm with complaint of tachycardia, tachypnea and fever. EMS reports that he had a temperature of 101 with a heart rate in the 170s but with a stable blood pressure. They state he was tachypneic to the 30s. He did not receive any medications prior to arrival. Patient is unable to provide any history secondary to his anoxic injury. Onset (ago): unknown Radiation: non-radiation Severity: moderate Relieving factors: none Exacerbating factors: none Treatments prior to arrival: Reports none Related Data Home Medications Medication Instructions Recorded Confirmed apixaban [Eliquis] 5 mg FEEDING TUBE BID 05/22/18 08/21/18 glycopyrrolate 1 mg FEEDING TUBE Q8H PRN 05/22/18 08/21/18 hyoscyamine sulfate [Levsin] 0.25 mg FEEDING TUBE Q4H PRN 05/22/18 08/21/18 levetiracetam 1,000 mg FEEDING TUBE Q12H 05/22/18 08/21/18 loratadine [Claritin] 10 mg FEEDING TUBE DAILY 05/22/18 08/21/18 baclofen 20 mg FEEDING TUBE Q8H 08/21/18 08/21/18 metoprolol tartrate 25 mg FEEDING TUBE Q8H PRN 08/21/18 08/21/18 Previous Rx's Medication Instructions Recorded ipratropium-albuterol 1 amp NEB Q4H PRN #100 ml 07/04/18 diazepam 5 mg IM Q8HR PRN #10 ml 09/01/18 lorazepam 1 mg IM Q6H PRN #10 ml 09/01/18 oxycodone 5 mg FEEDING TUBE Q6HR PRN #12 tab 09/01/18 Allergies Allergy/AdvReac Type Severity Reaction Status Date / Time haloperidol AdvReac Severe Seizures Verified 06/09/18 09:58 *MDRO Multi-Drug Resistant AdvReac Unknown Dry Mucus Uncoded 06/09/18 09:58 Organism Membranes Review of Systems ROS Unobtainable ROS Unobtainable: unobtainable due to mental condition [facility] Medical History Medical History Tracheostomy dependent (Acute) GERD (gastroesophageal reflux disease) (Acute) Pancreatitis (Acute) Diabetes mellitus (Acute) Dyslipidemia (Acute) HTN (hypertension) (Acute) Seizure (Acute) DVT (deep venous thrombosis) (Acute) Anoxic brain damage (Acute) MDRO (multiple drug resistant organisms) resistance (Acute ~08/22/18) Multiple drug resistant organism (MDRO) culture positive (Acute) Surgical History Surgical History PEG (percutaneous endoscopic gastrostomy) status (Acute) Family History Family History Other No pertinent family history Social History Social History Substance History: Unable to Obtain Second Hand Smoke Exposure: No Smoking Status: Cognitive impairment How Often Do You Have a Drink Containing Alcohol: Unable to Obtain Recent Travel in [facility] within the Last 8 Weeks: No Recent Out of Country Travel within the Last 8 Weeks: No Immunization History Tetanus Immunization: Unable to Assess Exam Narrative Exam Narrative: GENERAL: Ill-appearing male in no acute distress SKIN: Focused skin assessment warm. Diaphoretic. No rashes. No lesions/ulcers /wounds. Skin intact. HEAD: Atraumatic. Normocephalic. EYES: Pupils equal and round. No scleral icterus. No injection or drainage. ENT: No nasal bleeding or discharge. Mucous membranes pink and moist. NECK: Trachea midline. Trach in place without surrounding erythema and without drainage. No JVD. CARDIOVASCULAR: Tachycardic to the 110s. No murmur appreciated. Intact peripheral pulses. RESPIRATORY: No accessory muscle use. Clear to auscultation. Breath sounds equal bilaterally. GASTROINTESTINAL: Abdomen soft, non-tender, nondistended. Hepatic and splenic margins not palpable. PEG tube in place without surrounding erythema or drainage. MUSCULOSKELETAL: No clubbing. No cyanosis. No edema. NEUROLOGICAL: Awake. At baseline mental status. Chronic contractures. PSYCHIATRIC: Unable to assess Course Initial Documented Vital Signs Temperature 101 F H 09/23/18 02:35 Pulse Rate 179 H 09/23/18 02:35 Blood Pressure 179/103 H 09/23/18 02:35 Pulse Oximetry 96 09/23/18 02:35 Last Documented Vital Signs Temperature 99.8 F H 09/23/18 03:07 Pulse Rate 90 09/23/18 03:07 Blood Pressure 119/69 09/23/18 03:07 Pulse Oximetry 96 09/23/18 03:07 Medical Decision Making MDM Narrative Medical decision making narrative: Patient is a 33-year-old male who presents from a longterm for tachycardia, tachypnea, fever. On arrival he is a heart rate in the 110s but is hemodynamically stable. He appears ill and thus sepsis protocol was initiated. He was given vancomycin, Zosyn, doxycycline after review of his previous culture results. Labs reveal an elevated lactate but are actually otherwise relatively unremarkable. Chest x-ray does not show an acute consolidation. Urine is unremarkable and was obtained by catheterization. No lesions to the skin were seen on exam unless a source is not identified at this time. He has been admitted to Dr. Carrizales, hospitalist tourist information assistant, for further evaluation and management. Medical Screen Exam Complete: Yes Emergency Medical Condition: Yes Differential Diagnosis Differential Diagnosis: Differential diagnosis includes but is not limited to sepsis, pneumonia, urinary tract infection, anemia, electrolyte abnormality. Medical Records Medical records reviewed: Yes I reviewed the patient's medical records. Lab Data Lab results reviewed: Yes I reviewed the patient's lab results. Result diagrams: 09/23/18 02:50 09/23/18 02:50 Lab Results 09/23/18 09/23/18 09/23/18 Range/Units 02:50 02:50 02:50 WBC 7.7 (4.0-11.0) th/mm3 RBC 4.45 L (4.50-5.90) mil/mm3 Hgb 13.9 (13.0-17.0) gm/dL Hct 41.2 (39.0-51.0) % MCV 92.5 (80.0-100.0) fL MCH 31.1 (27.0-34.0) pg MCHC 33.6 (32.0-36.0) % RDW 14.1 (11.6-17.2) % Plt Count 228 D (150-450) th/mm3 MPV 9.9 (7.0-11.0) fL Neut % (Auto) 67.8 (16.0-70.0) % Lymph % (Auto) 21.0 (9.0-44.0) % [place] % (Auto) 10.1 H (0.0-8.0) % Eos % (Auto) 0.6 (0.0-4.0) % Baso % (Auto) 0.5 (0.0-2.0) % Neut # (Auto) 5.2 (1.8-7.7) th/mm3 Lymph # (Auto) 1.6 (1.0-4.8) th/mm3 [place] # (Auto) 0.8 (0.0-0.9) th/mm3 Eos # (Auto) 0.0 (0.0-0.4) th/mm3 Baso # (Auto) 0.0 (0.0-0.2) th/mm3 WBC Differential . Differential Comment Auto diff final Sodium 141 (136-145) meq/L Potassium 3.5 (3.5-5.1) meq/L Chloride 105 (98-107) meq/L Carbon Dioxide 26.0 (21.0-32.0) meq/L Anion Gap 10 (5-15) meq/L BUN 13 (7-18) mg/dL Creatinine 1.00 (0.60-1.30) mg/dL Estimated GFR Greater than 89 (>89) mL/min Random Glucose 120 H (74-106) mg/dL Lactic Acid 2.9 H (0.4-2.0) mmol/L Calcium 9.0 (8.5-10.1) mg/dL Magnesium 2.3 (1.5-2.5) mg/dL Total Bilirubin 0.2 (0.2-1.0) mg/dL AST 47 H (15-37) U/L ALT 60 (12-78) U/L Alkaline Phosphatase 96 (45-117) U/L Total Protein 8.1 (6.4-8.2) g/dL Albumin 3.9 (3.4-5.0) g/dL Urine Color (Yellw/Straw) Urine Clarity (Clear) Urine pH (5.0-8.5) Ur Specific [place] (1.002-1.035) Urine Protein (Neg-Trace) mg/dL Urine Glucose (UA) (Negative) mg/dL Urine Ketones (Negative) mg/dL Urine Occult Blood (Negative) Urine Nitrate (Negative) Urine Bilirubin (Negative) Urine Urobilinogen (Less than 2) mg/dL Ur Leukocyte Esterase (Negative) Urine RBC (0-3) /hpf Urine WBC (0-5) /hpf Hyaline Casts (0-3) /lpf Urine Mucus (Occasional) /lpf Micro UA Comment Ur Microscopic Review Urine Culture Comments 09/23/18 Range/Units 03:35 WBC (4.0-11.0) th/mm3 RBC (4.50-5.90) mil/mm3 Hgb (13.0-17.0) gm/dL Hct (39.0-51.0) % MCV (80.0-100.0) fL MCH (27.0-34.0) pg MCHC (32.0-36.0) % RDW (11.6-17.2) % Plt Count (150-450) th/mm3 MPV (7.0-11.0) fL Neut % (Auto) (16.0-70.0) % Lymph % (Auto) (9.0-44.0) % [place] % (Auto) (0.0-8.0) % Eos % (Auto) (0.0-4.0) % Baso % (Auto) (0.0-2.0) % Neut # (Auto) (1.8-7.7) th/mm3 Lymph # (Auto) (1.0-4.8) th/mm3 [place] # (Auto) (0.0-0.9) th/mm3 Eos # (Auto) (0.0-0.4) th/mm3 Baso # (Auto) (0.0-0.2) th/mm3 WBC Differential Differential Comment Sodium (136-145) meq/L Potassium (3.5-5.1) meq/L Chloride (98-107) meq/L Carbon Dioxide (21.0-32.0) meq/L Anion Gap (5-15) meq/L BUN (7-18) mg/dL Creatinine (0.60-1.30) mg/dL Estimated GFR (>89) mL/min Random Glucose (74-106) mg/dL Lactic Acid (0.4-2.0) mmol/L Calcium (8.5-10.1) mg/dL Magnesium (1.5-2.5) mg/dL Total Bilirubin (0.2-1.0) mg/dL AST (15-37) U/L ALT (12-78) U/L Alkaline Phosphatase (45-117) U/L Total Protein (6.4-8.2) g/dL Albumin (3.4-5.0) g/dL Urine Color Yellow (Yellw/Straw) Urine Clarity Hazy H (Clear) Urine pH 6.0 (5.0-8.5) Ur Specific [place] 1.033 (1.002-1.035) Urine Protein 30 H (Neg-Trace) mg/dL Urine Glucose (UA) Negative (Negative) mg/dL Urine Ketones Negative (Negative) mg/dL Urine Occult Blood Negative (Negative) Urine Nitrate Negative (Negative) Urine Bilirubin Negative (Negative) Urine Urobilinogen Less than 2 (Less than 2) mg/dL Ur Leukocyte Esterase Negative (Negative) Urine RBC Less than 1 (0-3) /hpf Urine WBC 1 (0-5) /hpf Hyaline Casts 17 (0-3) /lpf Urine Mucus Moderate H (Occasional) /lpf Micro UA Comment Cath-culture not ind Ur Microscopic Review Not Reportable Urine Culture Comments Cath-cult not ind Imaging Data Attestation: I personally reviewed and interpreted this imaging study as follows : Radiologist's impression: Chest X-Ray 09/23/18 02:47 CONCLUSION: Chronic cardiac silhouette enlargement. No acute cardiopulmonary disease identified. Discharge Plan Discharge Disposition Patient Disposition: 30 Still Patient Discharge Condition Condition: Fair Discharge Details Diagnosis: Sepsis, Anoxic encephalopathy Physicians Team ED Provider: Tamara Castellon Primary Care Provider: Britton Samuels Attending Provider: Ping Carrizales Discharge Interventions Interventions: Vital Signs Last Done: 09/23/18 03:07 Status ED Status: Admitted Patient
[2018-09-23] MEDS ORDERED: Dextrose 50% in Water 50 ML Vial IV.PUSH PRN (05:02)
[2018-09-23] MEDS ORDERED: Bisacodyl 10 MG Supp RECTAL PRN (05:02)
--- NOTE | 2018-09-23 05:20 | P.HP ---
History of Present Illness Service: [facility] Primary Care Physician: Britton Samuels MD History of Present Illness: 33-year-old male with a past medical history significant for anoxic brain injury with chronic trach and PEG presents to the emergency department from the intermediate for evaluation of tachycardia, tachypnea and fever. Per EMS report the patient had a temperature of 101 with a pulse of 179. Respiratory rate to the 30s. Blood pressure 179/103. Patient was discharged on 09/13/18 where he was hospitalized for HCAP with sepsis. Tracheal aspirate grew Pseudomonas and urine culture was positive for ESBL. He was treated with 1 week of Zerbaxa per infectious disease recommendations. Inpatient Certification: I certify that the inpatient services were ordered in accordance with Medicare regulations governing the order. This includes certification that hospital inpatient services are reasonable and necessary and in the case of services not specified as inpatient-only under 42 CFR 419.22(n), that they are appropriately provided as inpatient services in accordance to with the 2-midnight benchmark under 43 CFR 412.3(e) Review of Systems unobtainable due to mental condition PMFSH - History History Provided By: Director Of Scout Work / EMT - Medical History Medical History: Medical History (Last Reviewed 09/23/18 @ 05:09 by Ping Carrizales MD) Tracheostomy dependent (Acute) GERD (gastroesophageal reflux disease) (Acute) Pancreatitis (Acute) Diabetes mellitus (Acute) Dyslipidemia (Acute) HTN (hypertension) (Acute) Seizure (Acute) DVT (deep venous thrombosis) (Acute) Anoxic brain damage (Acute) MDRO (multiple drug resistant organisms) resistance Onset Date: ~08/22/18 Multiple drug resistant organism (MDRO) culture positive - Surgical History Surgical History: Surgical History (Last Reviewed 09/23/18 @ 05:09 by Ping Carrizales MD) PEG (percutaneous endoscopic gastrostomy) status (Acute) - Family History Family History: Family History (Last Reviewed 09/23/18 @ 05:09 by Ping Carrizales MD) Other No pertinent family history - Social History I have reviewed the patient's Social History: Yes - Tobacco History Second Hand Smoke Exposure: No Smoking Status: Cognitive impairment - Alcohol History How Often Do You Have a Drink Containing Alcohol: Unable to Obtain - Substance Use History Substance History: Unable to Obtain - Travel History Recent Travel in the [place] Within the Last 8 Weeks: No Recent Travel Out of the Country Within the Last 8 Weeks: No - Immunization History Tetanus Immunization: Unable to Assess Medications and Allergies Active Medications: Active Medications Sodium Chloride (Ns Inj) 1,000 mls @ 0 mls/hr IV.SIG .Q0M [facility] Last Infusion: 09/23/18 04:13 Dose: Infused Sodium Chloride (Ns Inj) 1,000 mls @ 0 mls/hr IV.SIG .Q0M [facility] Sodium Chloride (Ns Inj) 100 mls @ 0 mls/hr IV.SIG .Q0M [facility] Allergies Allergy/AdvReac Type Severity Reaction Status Date / Time haloperidol AdvReac Severe Seizures Verified 06/09/18 09:58 *MDRO Multi-Drug Resistant AdvReac Unknown Dry Mucus Uncoded 06/09/18 09:58 Organism Membranes Home Medications Medication Instructions Recorded Confirmed Type apixaban [Eliquis] 5 mg FEEDING TUBE BID 05/22/18 09/23/18 History glycopyrrolate 1 mg FEEDING TUBE Q8H PRN 05/22/18 09/23/18 History hyoscyamine sulfate [Levsin] 0.25 mg FEEDING TUBE Q4H PRN 05/22/18 08/21/18 History levetiracetam 1,000 mg FEEDING TUBE Q12H 05/22/18 08/21/18 History loratadine [Claritin] 10 mg FEEDING TUBE DAILY 05/22/18 09/23/18 History baclofen 20 mg FEEDING TUBE Q8H 08/21/18 09/23/18 History metoprolol tartrate 25 mg FEEDING TUBE Q8H PRN 08/21/18 08/21/18 History atropine 1 drop PO Q12HR 09/23/18 09/23/18 History famotidine 20 mg FEEDING TUBE BID 09/23/18 09/23/18 History Exam Vital signs: Vital Signs 09/23/18 02:35 09/23/18 02:47 09/23/18 03:00 Temperature 101 F H 101 F H Pulse Rate 179 H 117 H Blood Pressure 179/103 H 110/59 L Pulse Oximetry 96 96 96 09/23/18 03:07 Temperature 99.8 F H Pulse Rate 90 Blood Pressure 119/69 Pulse Oximetry 96 Intake & Output 09/22/18 09/22/18 09/23/18 06:59 18:59 06:59 Intake Total 1100 / 1100 Balance 1100 / 1100 Intake: IV 1100 / 1100 Zosyn 4.5 GM Premix 4.5 gm In 100 / 100 100 ml @ 200 mls/hr IV.SIG STAT [facility] Rx#:[id number] NS Inj 1,000 ML @ Wide Open IV. 1000 / 1000 SIG .Q0M [facility] Rx#:[id number] Narrative: Gen.: Patient awake and in no acute distress. Head: Normocephalic. Atraumatic. EENT: Pupils equal round and reactive to light. Nose without drainage. Airway intact. Cardiovascular: Regular rate and rhythm. No murmurs, rubs or gallops. Respiratory: Lungs clear to auscultation bilaterally. No wheezes or rhonchi. Abdomen: Soft, nontender, nondistended. No peritoneal signs. Musculoskeletal: No gross deformities. No edema. Skin: No obvious rashes or erythema. Neuro: Sensory and motor grossly intact. Cranial nerves II through XII grossly intact. Results - Labs CBC & Chem 7: 09/23/18 02:50 09/23/18 02:50 Labs: Laboratory Results - last 24 hr 09/23/18 09/23/18 09/23/18 02:50 02:50 02:50 WBC 7.7 RBC 4.45 L Hgb 13.9 Hct 41.2 MCV 92.5 MCH 31.1 MCHC 33.6 RDW 14.1 Plt Count 228 D MPV 9.9 Neut % (Auto) 67.8 Lymph % (Auto) 21.0 [place] % (Auto) 10.1 H Eos % (Auto) 0.6 Baso % (Auto) 0.5 Neut # (Auto) 5.2 Lymph # (Auto) 1.6 [place] # (Auto) 0.8 Eos # (Auto) 0.0 Baso # (Auto) 0.0 WBC Differential . Differential Comment Auto diff final Sodium 141 Potassium 3.5 Chloride 105 Carbon Dioxide 26.0 Anion Gap 10 BUN 13 Creatinine 1.00 Estimated GFR Greater than 89 Random Glucose 120 H Lactic Acid 2.9 H Calcium 9.0 Magnesium 2.3 Total Bilirubin 0.2 AST 47 H ALT 60 Alkaline Phosphatase 96 Total Protein 8.1 Albumin 3.9 Urine Color Urine Clarity Urine pH Ur Specific [place] Urine Protein Urine Glucose (UA) Urine Ketones Urine Occult Blood Urine Nitrate Urine Bilirubin Urine Urobilinogen Ur Leukocyte Esterase Urine RBC Urine WBC Hyaline Casts Urine Mucus Micro UA Comment Ur Microscopic Review Urine Culture Comments 09/23/18 03:35 WBC RBC Hgb Hct MCV MCH MCHC RDW Plt Count MPV Neut % (Auto) Lymph % (Auto) [place] % (Auto) Eos % (Auto) Baso % (Auto) Neut # (Auto) Lymph # (Auto) [place] # (Auto) Eos # (Auto) Baso # (Auto) WBC Differential Differential Comment Sodium Potassium Chloride Carbon Dioxide Anion Gap BUN Creatinine Estimated GFR Random Glucose Lactic Acid Calcium Magnesium Total Bilirubin AST ALT Alkaline Phosphatase Total Protein Albumin Urine Color Yellow Urine Clarity Hazy H Urine pH 6.0 Ur Specific [place] 1.033 Urine Protein 30 H Urine Glucose (UA) Negative Urine Ketones Negative Urine Occult Blood Negative Urine Nitrate Negative Urine Bilirubin Negative Urine Urobilinogen Less than 2 Ur Leukocyte Esterase Negative Urine RBC Less than 1 Urine WBC 1 Hyaline Casts 17 Urine Mucus Moderate H Micro UA Comment Cath-culture not ind Ur Microscopic Review Not Reportable Urine Culture Comments Cath-cult not ind - Imaging Impressions Chest X-Ray 09/23/18 02:47 CONCLUSION: Chronic cardiac silhouette enlargement. No acute cardiopulmonary disease identified. Caprini VTE Risk Assessment Caprini VTE Risk Assessment: Moderate/High Risk (score >= 2) Caprini Risk Assessment Model: Point Value = 1 Point Value = 2 Point Value = 3 Point Value = 5 Age 41-60 Minor surgery BMI > 25 kg/m2 Swollen legs Varicose veins or History of unexplained or recurrent spontaneous Oral contraceptives or hormone replacement Sepsis (< 1 month) Serious lung disease, including pneumonia (< 1 month) Abnormal pulmonary function Acute myocardial infarction Congestive heart failure (< 1 month) History of inflammatory bowel disease Medical patient at bed rest Age 61-74 Arthroscopic surgery Major open surgery (> 45 min) Laparoscopic surgery (> 45 min) Malignancy Confined to bed (> 72 hours) Immobilizing plaster cast Central venous access Age >= 75 History of VTE Family history of VTE Factor V Leiden Prothrombin [id number] Lupus anticoagulant Anticardiolipin antibodies Elevated serum homocysteine Heparin-induced thrombocytopenia Other congenital or acquired thrombophilia Stroke (< 1 month) Elective arthroplasty Hip, pelvis, or leg fracture Acute spinal cord injury (< 1 month) Prophylaxis Regimen: Total Risk Factor Score Risk Level Prophylaxis Regimen 0-1 Low Early ambulation 2 Moderate Order ONE of the following: *Sequential Compression Device (SCD) *Heparin 5000 units SQ BID 3-4 Higher Order ONE of the following medications: *Heparin 5000 units SQ TID *Enoxaparin/Lovenox 40 mg SQ daily (WT < 150 kg, CrCl > 30 mL/min) *Enoxaparin/Lovenox 30 mg SQ daily (WT < 150 kg, CrCl > 10-29 mL/min) *Enoxaparin/Lovenox 30 mg SQ BID (WT < 150 kg, CrCl > 30 mL/min) AND/OR *Sequential Compression Device (SCD) 5 or more Highest Order ONE of the following medications: *Heparin 5000 units SQ TID (Preferred with Epidurals) *Enoxaparin/Lovenox 40 mg SQ daily (WT < 150 kg, CrCl > 30 mL/min) *Enoxaparin/Lovenox 30 mg SQ daily (WT < 150 kg, CrCl > 10-29 mL/min) *Enoxaparin/Lovenox 30 mg SQ BID (WT < 150 kg, CrCl > 30 mL/min) AND *Sequential Compression Device (SCD) Assessment and Plan - Plan Assessment/plan: 1. ? Sepsis Patient febrile to 101, tachycardic and tachypneic. Lactic acid 2.9 History of ESBL UTI and Pseudomonas tracheal aspirate during previous hospitalization, discharged 10 days ago Completed 1 week Zerbaxa on 09/09 Patient without leukocytosis Chest x-ray, UA negative Blood cultures pending Status post vancomycin, Zosyn and doxycycline in the ED Infectious disease consulted, appreciate recommendations 2. Copious oral secretions Continue home Jo 3. Seizure disorder Continue Keppra 4. Type 2 diabetes mellitus Sliding scale insulin Monitor blood glucose 5. History of DVT Continue Eliquis FEN Continue tube feeds with Jevity 1.5 at 85 cc/hour Electrolytes: Monitor and replete as needed NS at 100 cc/hour Eliquis
[2018-09-23] MEDS ORDERED: DIAZEPAM 5 MG IM PRN (05:36)
[2018-09-23] MEDS: Sod Chloride 0.9% Inj 1,000 ML IV.CONT SCH ×2 (06:22→17:15)
[2018-09-23] MEDS: Insulin NovoLOG Aspart Correctional Sugar Inj SQ SCH ×4 (07:58→20:45)
[2018-09-23] MEDS: Famotidine 20 MG Tablet G-TUBE SCH ×2 (09:12→20:40)
[2018-09-23] MEDS: Loratadine 10 MG Tablet G-TUBE SCH (09:13)
[2018-09-23] MEDS ORDERED: ASP: Other exception documentation: ( ) OTHER PRN (10:53)
--- NOTE | 2018-09-23 10:58 | P.CONID ---
History of Present Illness Service: Infectious disease Consult date: 09/23/18 Requesting Physician: Ping Carrizales Reason for Consult: Evaluation and management of fever, SIRS Primary Care Provider: Britton Samuels MD History of Present Illness: Mr. Ahn is a 33-year-old -Vin[place] male with past medical history significant for anoxic brain injury with chronic trach and PEG who presents to the emergency department from a correction. Patient has a prior history of MDR organisms such as ESBL as well as Pseudomonas. Patient now presents to [facility] emergency department for evaluation of tachycardia, tachypnea and fever. Per EMS the patient was running a temperature 101 with a pulse of 179 and respiratory rate in the 30s. His blood pressure was 179 x 103 and his lactic acid was 6 slightly elevated on admission. Patient was recently discharged on 09/13/2018 where he was hospitalized for healthcare associated pneumonia with sepsis. His tracheal aspirate at that time grew Pseudomonas and urine cultures were positive for ESBL he was treated with 1 week of Zyprexa per infectious disease recommendations. Infectious disease is now consulted for evaluation of fever and sores that appears to be recurrent. [facility] - History History Provided By: Clinical Tech / EMT - Medical History Medical History: Medical History (Last Reviewed 09/23/18 @ 05:09 by Ping Carrizales MD) Tracheostomy dependent (Acute) GERD (gastroesophageal reflux disease) (Acute) Pancreatitis (Acute) Diabetes mellitus (Acute) Dyslipidemia (Acute) HTN (hypertension) (Acute) Seizure (Acute) DVT (deep venous thrombosis) (Acute) Anoxic brain damage (Acute) MDRO (multiple drug resistant organisms) resistance Onset Date: ~08/22/18 Multiple drug resistant organism (MDRO) culture positive - Surgical History Surgical History: Surgical History (Last Reviewed 09/23/18 @ 05:09 by Ping Carrizales MD) PEG (percutaneous endoscopic gastrostomy) status (Acute) - Family History Family History: Family History (Last Reviewed 09/23/18 @ 05:09 by Ping Carrizales MD) Other No pertinent family history - Tobacco History Second Hand Smoke Exposure: No Smoking Status: Cognitive impairment - Alcohol History How Often Do You Have a Drink Containing Alcohol: Unable to Obtain - Substance Use History Substance History: Unable to Obtain - Travel History Recent Travel in the [facility] Within the Last 8 Weeks: No Recent Travel Out of the Country Within the Last 8 Weeks: No - Immunization History Tetanus Immunization: Unable to Assess Medications and Allergies Active Medications: Active Medications Acetaminophen (Tylenol) 650 mg PO Q4H PRN PRN Reason: Temp > 100.4 Al Hydroxide/Mg Hydroxide (Milk Of Magnesia Liq) 30 ml PO Q12H PRN PRN Reason: Mild Constipation Apixaban (Eliquis) 5 mg G-TUBE BID [facility] Last Admin: 09/23/18 09:13 Dose: 5 mg Baclofen (Lioresal) 20 mg G-TUBE Q8H [facility] Last Admin: 09/23/18 07:32 Dose: 20 mg Bisacodyl (Dulcolax Supp) 10 mg RECTAL DAILY PRN PRN Reason: SEVERE CONSITIPATION Dextrose (D50w Vial) 50 ml IV.PUSH UNSCH PRN PRN Reason: PER HYPOGLYCEMIA PROTOCOL Famotidine (Pepcid) 20 mg G-TUBE BID [facility] Last Admin: 09/23/18 09:12 Dose: 20 mg Glucagon (Glucagon Inj) 1 mg OTHER PRN PRN PRN Reason: for Hypoglycemia Protocol Glycopyrrolate (Robinul) 1 mg G-TUBE Q8H PRN PRN Reason: Secretions Hyoscyamine (Levsin) 0.25 mg G-TUBE Q4H PRN PRN Reason: Secretions Sodium Chloride (Ns Inj) 1,000 mls @ 0 mls/hr IV.SIG .Q0M [facility] Last Infusion: 09/23/18 04:13 Dose: Infused Sodium Chloride (Ns Inj) 1,000 mls @ 0 mls/hr IV.SIG .Q0M [facility] Sodium Chloride (Ns Inj) 100 mls @ 0 mls/hr IV.SIG .Q0M [facility] Sodium Chloride (Ns Inj) 1,000 mls @ 100 mls/hr IV.CONT .Q10H [facility] Last Admin: 09/23/18 06:22 Dose: 100 mls/hr Meropenem 500 mg/ Sodium (Chloride) 100 mls @ 200 mls/hr IV.SIG Q6HR [facility] Stop: 09/23/18 11:22 Insulin Aspart (Novolog Insulin Correctional Sugar Inj) 0 unit SQ ACHS [facility]; Protocol Last Admin: 09/23/18 07:58 Dose: Not Given Lactulose (Lactulose Liq) 30 ml PO DAILY PRN PRN Reason: SEVERE CONSITIPATION Levetiracetam (Keppra Liq) 1,000 mg G-TUBE Q12H [facility] Last Admin: 09/23/18 07:32 Dose: 1,000 mg Loratadine (Claritin) 10 mg G-TUBE DAILY [facility] Last Admin: 09/23/18 09:13 Dose: 10 mg Miscellaneous Medication (Asp Crit: Other Exception Documentation) 1 each OTHER UNSCH PRN PRN Reason: PHARMACY DOCUMENTATION Stop: 09/24/18 10:52 Morphine Sulfate (Morphine Inj) 2 mg IV.PUSH Q3H PRN PRN Reason: pain 1 to 10 Ondansetron HCl (Zofran Inj) 4 mg IV.PUSH Q6H PRN PRN Reason: NAUSEA OR VOMITING Diazepam [Diazepam] (5 Mg) 0 each IM Q8HR PRN PRN Reason: Muscle Spasm Sennosides (Senokot) 17.2 mg PO Q12H PRN PRN Reason: Moderate Constipation Allergies Allergy/AdvReac Type Severity Reaction Status Date / Time haloperidol AdvReac Severe Seizures Verified 06/09/18 09:58 *MDRO Multi-Drug Resistant AdvReac Unknown Dry Mucus Uncoded 06/09/18 09:58 Organism Membranes Home Medications Medication Instructions Recorded Confirmed Type apixaban [Eliquis] 5 mg FEEDING TUBE BID 05/22/18 09/23/18 History glycopyrrolate 1 mg FEEDING TUBE Q8H PRN 05/22/18 09/23/18 History hyoscyamine sulfate [Levsin] 0.25 mg FEEDING TUBE Q4H PRN 05/22/18 09/23/18 History levetiracetam 1,000 mg FEEDING TUBE Q12H 05/22/18 09/23/18 History loratadine [Claritin] 10 mg FEEDING TUBE DAILY 05/22/18 09/23/18 History baclofen 20 mg FEEDING TUBE Q8H 08/21/18 09/23/18 History atropine 1 drop PO Q12HR 09/23/18 09/23/18 History famotidine 20 mg FEEDING TUBE BID 09/23/18 09/23/18 History Exam Vital signs: Vital Signs 09/23/18 02:35 09/23/18 02:47 09/23/18 03:00 Temperature 101 F H 101 F H Pulse Rate 179 H 117 H Respiratory Rate Blood Pressure 179/103 H 110/59 L Pulse Oximetry 96 96 96 09/23/18 03:07 09/23/18 05:00 09/23/18 07:11 Temperature 99.8 F H Pulse Rate 90 72 Respiratory Rate Blood Pressure 119/69 95/52 L Pulse Oximetry 96 100 97 09/23/18 07:30 09/23/18 08:00 09/23/18 09:12 Temperature 98.3 F Pulse Rate 103 H 101 H 85 Respiratory Rate 20 18 18 Blood Pressure 123/76 140/64 117/55 L Pulse Oximetry 100 100 100 Intake & Output 09/22/18 09/23/18 09/23/18 18:59 06:59 18:59 Intake Total 1460 / 1460 Balance 1460 / 1460 Weight 68.039 kg Intake: IV 1460 / 1460 Doxy 100 Inj 100 MG In NS Inj 100 / 100 100 ML @ 100 mls/hr IV.SIG ONCE ONE Rx#:[id number] Zosyn 4.5 GM Premix 4.5 gm In 100 / 100 100 ml @ 200 mls/hr IV.SIG STAT STA Rx#:[id number] NS Inj 1,000 ML @ Wide Open IV. 1000 / 1000 SIG .Q0M [facility] Rx#:[id number] Vancomycin Inj 1,000 MG In NS 260 / 260 Inj 250 ML @ 250 mls/hr IV.SIG STAT ST[facility] Rx#:[id number] Narrative: GENERAL: Well-nourished well-developed, not in acute distress SKIN: Cool and dry, no generalized rash HEAD: Atraumatic. Normocephalic. No temporal or scalp tenderness. EYES: Pupils equal round and reactive. Scleral icterus. No injection or drainage. No petechia ENT: Nothing abnormal detected NECK: Trach site looks okay. Supple, nontender, no meningeal signs. CARDIOVASCULAR: HS audible. RESPIRATORY: Clear to auscultation bilaterally. GASTROINTESTINAL: Abdomen soft nontender. PEG tube site looks okay. MUSCULOSKELETAL: Extremities without clubbing, cyanosis. NEUROLOGICAL: Opens eyes spontaneously sometimes, some spasticity noted. Nonverbal. Psych cooperative IV line sites ok. Results - Labs CBC & Chem 7: 09/23/18 02:50 09/23/18 02:50 Labs: Laboratory Results - last 24 hr 09/23/18 09/23/18 09/23/18 02:50 02:50 02:50 WBC 7.7 RBC 4.45 L Hgb 13.9 Hct 41.2 MCV 92.5 MCH 31.1 MCHC 33.6 RDW 14.1 Plt Count 228 D MPV 9.9 Neut % (Auto) 67.8 Lymph % (Auto) 21.0 [place] % (Auto) 10.1 H Eos % (Auto) 0.6 Baso % (Auto) 0.5 Neut # (Auto) 5.2 Lymph # (Auto) 1.6 [place] # (Auto) 0.8 Eos # (Auto) 0.0 Baso # (Auto) 0.0 WBC Differential . Differential Comment Auto diff final Sodium 141 Potassium 3.5 Chloride 105 Carbon Dioxide 26.0 Anion Gap 10 BUN 13 Creatinine 1.00 Estimated GFR Greater than 89 POC Glucose Random Glucose 120 H Lactic Acid 2.9 H Calcium 9.0 Magnesium 2.3 Total Bilirubin 0.2 AST 47 H ALT 60 Alkaline Phosphatase 96 Total Protein 8.1 Albumin 3.9 Urine Color Urine Clarity Urine pH Ur Specific [place] Urine Protein Urine Glucose (UA) Urine Ketones Urine Occult Blood Urine Nitrate Urine Bilirubin Urine Urobilinogen Ur Leukocyte Esterase Urine RBC Urine WBC Hyaline Casts Urine Mucus Micro UA Comment Ur Microscopic Review Urine Culture Comments 09/23/18 09/23/18 09/23/18 03:35 05:08 07:38 WBC RBC Hgb Hct MCV MCH MCHC RDW Plt Count MPV Neut % (Auto) Lymph % (Auto) [place] % (Auto) Eos % (Auto) Baso % (Auto) Neut # (Auto) Lymph # (Auto) [place] # (Auto) Eos # (Auto) Baso # (Auto) WBC Differential Differential Comment Sodium Potassium Chloride Carbon Dioxide Anion Gap BUN Creatinine Estimated GFR POC Glucose 97 Random Glucose Lactic Acid 1.1 Calcium Magnesium Total Bilirubin AST ALT Alkaline Phosphatase Total Protein Albumin Urine Color Yellow Urine Clarity Hazy H Urine pH 6.0 Ur Specific [place] 1.033 Urine Protein 30 H Urine Glucose (UA) Negative Urine Ketones Negative Urine Occult Blood Negative Urine Nitrate Negative Urine Bilirubin Negative Urine Urobilinogen Less than 2 Ur Leukocyte Esterase Negative Urine RBC Less than 1 Urine WBC 1 Hyaline Casts 17 Urine Mucus Moderate H Micro UA Comment Cath-culture not ind Ur Microscopic Review Not Reportable Urine Culture Comments Cath-cult not ind - Imaging Impressions Chest X-Ray 09/23/18 02:47 CONCLUSION: Chronic cardiac silhouette enlargement. No acute cardiopulmonary disease identified. Assessment and Plan - Plan Systemic inflammatory response syndrome with fevers tachycardia on admission possible source tracheobronchitis Tracheobronchitis prior history of MDR Pseudomonas as well as ESBL Trach in place PEG in place Anoxic brain injury with residual deficit Recommendations Start meropenem IV to cover for MDR Pseudomonas as well as ESBL Follow cultures Follow clinical course No family in the room Discussed with APRIL
[2018-09-24] MEDS: Sod Chloride 0.9% Inj 1,000 ML IV.CONT SCH ×3 (01:12→23:15)
[2018-09-24] MEDS: Insulin NovoLOG Aspart Correctional Sugar Inj SQ SCH ×4 (09:22→23:14)
[2018-09-24] MEDS: Loratadine 10 MG Tablet G-TUBE SCH (09:30)
[2018-09-24] MEDS: Famotidine 20 MG Tablet G-TUBE SCH ×2 (09:30→20:20)
--- NOTE | 2018-09-24 12:49 | P.PN ---
Subjective Interval history: The patient is in bed does not appear in acute distress. No fever overnight. Vital signs fairly stable. Physical Exam Vital signs: Vital Signs 09/23/18 13:55 09/23/18 16:00 09/23/18 20:00 Temperature 99.3 F 100.3 F H Pulse Rate 110 H 77 Respiratory Rate 20 24 18 Blood Pressure 156/70 H 135/60 Pulse Oximetry 100 98 09/23/18 20:05 09/24/18 00:00 09/24/18 00:25 Temperature 97.9 F Pulse Rate 110 H Respiratory Rate 20 Blood Pressure 144/70 H Pulse Oximetry 98 96 98 09/24/18 04:00 Temperature 98.1 F Pulse Rate 50 L Respiratory Rate 16 Blood Pressure 101/55 L Pulse Oximetry 97 Intake & Output 09/23/18 09/24/18 09/24/18 18:59 06:59 18:59 Intake Total 1200 / 1200 1100 / 1100 1100 / 1100 Output Total 875 / 875 1000 / 1000 Balance 325 / 325 100 / 100 1100 / 1100 Weight 68.039 kg 70.7 kg Intake: IV 1200 / 1200 1100 / 1100 1100 / 1100 NS Inj 1,000 ML @ 100 mls/hr IV 1000 / 1000 1000 / 1000 1000 / 1000 .CONT .Q10H [facility] Rx#:[id number] Merrem Inj 500 MG In NS Inj 100 200 / 200 100 / 100 100 / 100 ML @ 200 mls/hr IV.SIG Q6HR [facility] Rx#:[id number] Output: Urine 875 / 875 1000 / 1000 Other: # Incontinent Voids 3 Date of Last Bowel Movement 09/23/18 09/23/18 Narrative: GENERAL: Chronically ill bed bound, contracted 33 yo male, well-nourished well- developed, not in acute distress NECK: Trach in place no signs if infection. CARDIOVASCULAR: HS audible. RESPIRATORY: Clear to auscultation bilaterally. GASTROINTESTINAL: Abdomen soft nontender. PEG tube site looks okay. MUSCULOSKELETAL: Extremities without clubbing, cyanosis. NEUROLOGICAL: Opens eyes spontaneously, spasticity. Nonverbal. - Urinary Catheter Management Straight Cath placed during this visit: yes Reason for continuing: Not indwelling catheter Insertion date: 09/23/18 Insertion time: 04:30 Results - Labs CBC & Chem 7: 09/24/18 12:54 09/24/18 12:54 Laboratory Results - last 24 hr 09/23/18 09/23/18 09/24/18 16:52 20:43 06:56 POC Glucose 104 89 103 09/24/18 09/24/18 09:22 12:43 POC Glucose 105 123 H Microbiology 09/23/18 02:50 Blood - Peripheral Aerobic Blood Culture - Preliminary No growth in 1 day 09/23/18 02:50 Blood - Peripheral Anaerobic Blood Culture - Preliminary No growth in 1 day 09/23/18 02:45 Blood - Peripheral Aerobic Blood Culture - Preliminary No growth in 1 day 09/23/18 02:45 Blood - Peripheral Anaerobic Blood Culture - Preliminary No growth in 1 day 09/23/18 07:50 Nasal Wash Influenza Types A,B Antigen - Final Negative for FLU A and B antigen Infection due to influenza A or B cannot be ruled out since the antigen present in the sample may be below the detection limit of the test. Assessment and Plan - Plan 1. ? Sepsis Patient febrile to 101, tachycardic and tachypneic. Lactic acid 2.9 History of ESBL UTI and Pseudomonas tracheal aspirate during previous hospitalization, discharged ~10 days ago [employer] Completed 1 week Zerbaxa on 09/09 Patient without leukocytosis Chest x-ray, UA negative Blood cultures pending Status post vancomycin, Zosyn and doxycycline in the ED Infectious disease consulted, appreciate recommendations Started on Meropenem IV for MDR pseudomonas and ESBL Discussed with Dr Nielsen infectious disease specialist and will explore the possibilities the patient might have fevers will check EEG for possible subclinical seizures, will check Keppra level this may cause fevers. Will check for DVT so far no DVT on the lower extremities will add Doppler for upper extremities to check for DVT however may not be possible as patient with contractures 2. Copious oral secretions Continue home [facility] care 3. Seizure disorder Continue Keppra 4. Type 2 diabetes mellitus Sliding scale insulin Monitor blood glucose 5. History of DVT Continue Eliquis FEN Continue tube feeds with Jevity 1.5 at 85 cc/hour Electrolytes: Monitor and replete as needed NS at 100 cc/hour Eliquis Discussed with the nurse, infectious disease specialist Dr Nielsen.
[2018-09-24 13:33] LABS: Baso % (Auto) 0.5 % (0.0-2.0); Eos # (Auto) 0.1 th/mm3 (0.0-0.4); Eos % (Auto) 2.7 % (0.0-4.0); Hematocrit 36.2 % (39.0-51.0); Hemoglobin 12.5 gm/dL (13.0-17.0); Lymph # (Auto) 1.1 th/mm3 (1.0-4.8); Lymph % (Auto) 19.5 % (9.0-44.0); Mean Corpuscular HGB Conc 34.4 % (32.0-36.0); Mean Corpuscular Hemoglobin 31.8 pg (27.0-34.0); Mean Corpuscular Volume 92.6 fL (80.0-100.0); Mean Platelet Volume 10.5 fL (7.0-11.0); Mono # (Auto) 0.6 th/mm3 (0.0-0.9); Mono % (Auto) 10.6 % (0.0-8.0); Neut # (Auto) 3.6 th/mm3 (1.8-7.7); Neut % (Auto) 66.7 % (16.0-70.0); Platelet Count 166 th/mm3 (150-450); Red Blood Count 3.91 mil/mm3 (4.50-5.90); Red Cell Distribution Width 14.6 % (11.6-17.2); White Blood Count 5.4 th/mm3 (4.0-11.0)
--- NOTE | 2018-09-24 13:34 | P.DIET ---
Nutritional Evaluation Type of nutrition evaluation: initial Nutrition consult regarding: Tube Feeding Objective - Diagnosis Sepsis - Objective % IBW: 101 (IBW: 70kg (used HT from prev adm (d/c 09/13)) Body Weight Used for Calculations: Actual (70.7kg) Energy Needs - Lower Range (kCal/kg): 28 Energy Needs - Upper Range (kCal/kg): 32 Lower Limit kCal/kg (kCals): 1,980 Upper Limit kCal/kg (kCals): 2,262 Lower Limit Protein Factor (Grams per Kg): 1.1 Upper Limit Protein Factor (Grams per Kg): 1.3 Lower Protein Needs (Protein): 78 Upper Protein Needs (Protein): 92 Fluid Factor (ml/kg): 32 Estimated Fluid Needs (ml): 2,262 Dietitian Reviewed in Medical Record: Current diet, Curent medications, Intake & Output, Labs, Medical history, Tube feeding Diet Order: NPO Objective Comments: PMH: Anoxic brain damage, seizures, DVT, HLD, DM, GERD, Pancreatitis Pt nonverbal, with trach and PEG Assessment Assessment: Pt at nutritional risk r/t need for a TF for nutrition support. Pt well known to this clinician due to many previous admissions; just discharged 09/13/2018. Pt with trach and PEG tube. TF Jevity 1.5 with goal rate of 85ml/hr per MD. This is overfeeding the patient providing 3060kcals, 130gms protein and 1550mls free water. To best meet pt's needs, recommend Jevity 1.5 with goal rate 60ml/ hr to provide 2160kcals, 92gms protein and 1094mls free water. Will monitor TF tolerance, clinical course. Recommendations: TF Jevity 1.5 with goal rate 60ml/hr Dietitian to Monitor: Lab values, Intake & Output, Tube feeding tolerance, Weight change, Medical course
[2018-09-24 14:00] LABS: Anion Gap 7 meq/L (5-15); Blood Urea Nitrogen 6 mg/dL (7-18); Calcium 8.3 mg/dL (8.5-10.1); Carbon Dioxide 25.1 meq/L (21.0-32.0); Chloride 111 meq/L (98-107); Glomerular Filtration Rate Greater Than 89 mL/min (>89); Glucose,Random 108 mg/dL (74-106); Potassium 3.6 meq/L (3.5-5.1); Sodium 143 meq/L (136-145)
--- NOTE | 2018-09-24 14:54 | P.PNID ---
Subjective Remarks: Mr. Ahn is a 33-year-old -[place] male with past medical history significant for anoxic brain injury with chronic trach and PEG who presents to the emergency department from a correction. Patient has a prior history of MDR organisms such as ESBL as well as Pseudomonas. Patient now presents to [facility] emergency department for evaluation of tachycardia, tachypnea and fever. Per EMS the patient was running a temperature 101 with a pulse of 179 and respiratory rate in the 30s. His blood pressure was 179 x 103 and his lactic acid was 6 slightly elevated on admission. Patient was recently discharged on 09/13/2018 where he was hospitalized for healthcare associated pneumonia with sepsis. His tracheal aspirate at that time grew Pseudomonas and urine cultures were positive for ESBL he was treated with 1 week of Zyprexa per infectious disease recommendations. Infectious disease is now consulted for evaluation of fever and sores that appears to be recurrent. Overnight events reviewed No fever No rash no diarrhea Neuro status unchanged. Antibiotics: Meropenem IV Lines: Lines ok Past Medical History: reviewed Allergies/Adverse Reactions: Allergies haloperidol Adverse Reaction (Severe, Verified 06/09/18 09:58) Seizures *MDRO Multi-Drug Resistant Organism Adverse Reaction (Unknown, Uncoded 06/09/18 09:58) Dry Mucus Membranes MRSA (sputum) - 04/25/16 & 05/23/16 MRSA PCR Screen POSITIVE - 04/25/2016 ESBL+E.Coli (blood-05/22/16) Objective Vital Signs 09/23/18 16:00 09/23/18 20:00 09/23/18 20:05 Temperature 99.3 F 100.3 F H Pulse Rate 110 H 77 Respiratory Rate 24 18 Blood Pressure 156/70 H 135/60 Pulse Oximetry 100 98 98 09/24/18 00:00 09/24/18 00:25 09/24/18 04:00 Temperature 97.9 F 98.1 F Pulse Rate 110 H 50 L Respiratory Rate 20 16 Blood Pressure 144/70 H 101/55 L Pulse Oximetry 96 98 97 09/24/18 12:00 Temperature 97.7 F Pulse Rate 92 H Respiratory Rate 18 Blood Pressure 142/83 H Pulse Oximetry 95 Intake & Output 09/23/18 09/24/18 09/24/18 18:59 06:59 18:59 Intake Total 1200 / 1200 1100 / 1100 1100 / 1100 Output Total 875 / 875 1000 / 1000 Balance 325 / 325 100 / 100 1100 / 1100 Weight 68.039 kg 70.7 kg Intake: IV 1200 / 1200 1100 / 1100 1100 / 1100 NS Inj 1,000 ML @ 100 mls/hr IV 1000 / 1000 1000 / 1000 1000 / 1000 .CONT .Q10H [facility] Rx#:[id number] Merrem Inj 500 MG In NS Inj 100 200 / 200 100 / 100 100 / 100 ML @ 200 mls/hr IV.SIG Q6HR [facility] Rx#:[id number] Output: Urine 875 / 875 1000 / 1000 Other: # Incontinent Voids 3 Date of Last Bowel Movement 09/23/18 09/23/18 09/23/18 02:50 Blood - Peripheral Aerobic Blood Culture - Preliminary No growth in 1 day 09/23/18 02:50 Blood - Peripheral Anaerobic Blood Culture - Preliminary No growth in 1 day 09/23/18 02:45 Blood - Peripheral Aerobic Blood Culture - Preliminary No growth in 1 day 09/23/18 02:45 Blood - Peripheral Anaerobic Blood Culture - Preliminary No growth in 1 day 09/23/18 07:50 Nasal Wash Influenza Types A,B Antigen - Final Negative for FLU A and B antigen Infection due to influenza A or B cannot be ruled out since the antigen present in the sample may be below the detection limit of the test. Lab - Hematology Results 09/23/18 09/24/18 02:50 12:54 WBC 7.7 5.4 RBC 4.45 L 3.91 L Hgb 13.9 12.5 L Hct 41.2 36.2 L MCV 92.5 92.6 MCH 31.1 31.8 MCHC 33.6 34.4 RDW 14.1 14.6 Plt Count 228 D 166 MPV 9.9 10.5 Neut % (Auto) 67.8 66.7 Lymph % (Auto) 21.0 19.5 [place] % (Auto) 10.1 H 10.6 H Eos % (Auto) 0.6 2.7 Baso % (Auto) 0.5 0.5 Neut # (Auto) 5.2 3.6 Lymph # (Auto) 1.6 1.1 [place] # (Auto) 0.8 0.6 Eos # (Auto) 0.0 0.1 Baso # (Auto) 0.0 0.0 WBC Differential . . Differential Comment Auto diff final Auto diff final Lab - Chemistry Results 09/23/18 09/23/18 09/23/18 02:50 02:50 05:08 Sodium 141 Potassium 3.5 Chloride 105 Carbon Dioxide 26.0 Anion Gap 10 BUN 13 Creatinine 1.00 Estimated GFR Greater than 89 POC Glucose Random Glucose 120 H Lactic Acid 2.9 H 1.1 Calcium 9.0 Magnesium 2.3 Total Bilirubin 0.2 AST 47 H ALT 60 Alkaline Phosphatase 96 Total Protein 8.1 Albumin 3.9 09/23/18 09/23/18 09/23/18 07:38 11:46 16:52 Sodium Potassium Chloride Carbon Dioxide Anion Gap BUN Creatinine Estimated GFR POC Glucose 97 89 104 Random Glucose Lactic Acid Calcium Magnesium Total Bilirubin AST ALT Alkaline Phosphatase Total Protein Albumin 09/23/18 09/24/18 09/24/18 20:43 06:56 09:22 Sodium Potassium Chloride Carbon Dioxide Anion Gap BUN Creatinine Estimated GFR POC Glucose 89 103 105 Random Glucose Lactic Acid Calcium Magnesium Total Bilirubin AST ALT Alkaline Phosphatase Total Protein Albumin 09/24/18 09/24/18 12:43 12:54 Sodium 143 Potassium 3.6 Chloride 111 H Carbon Dioxide 25.1 Anion Gap 7 BUN 6 L Creatinine 0.78 Estimated GFR Greater than 89 POC Glucose 123 H Random Glucose 108 H Lactic Acid Calcium 8.3 L Magnesium Total Bilirubin AST ALT Alkaline Phosphatase Total Protein Albumin Imaging: ITS Impressions Chest X-Ray 09/23/18 02:47 CONCLUSION: Chronic cardiac silhouette enlargement. No acute cardiopulmonary disease identified. Physical Exam: GENERAL: Well-nourished well-developed, not in acute distress SKIN: Cool and dry, no generalized rash HEAD: Atraumatic. Normocephalic. No temporal or scalp tenderness. EYES: Pupils equal round and reactive. Scleral icterus. No injection or drainage. No petechia ENT: Nothing abnormal detected NECK: Trach site looks okay. Supple, nontender, no meningeal signs. CARDIOVASCULAR: HS audible. RESPIRATORY: Clear to auscultation bilaterally. GASTROINTESTINAL: Abdomen soft nontender. PEG tube site looks okay. MUSCULOSKELETAL: Extremities without clubbing, cyanosis. NEUROLOGICAL: Opens eyes spontaneously sometimes, some spasticity noted. Nonverbal. Psych cooperative IV line sites ok. Assessment and Plan - Plan Systemic inflammatory response syndrome with fevers tachycardia on admission possible source tracheobronchitis Tracheobronchitis prior history of MDR Pseudomonas as well as ESBL Fever: likely non infectious: drug fever (keppra), subclinical seizures, or DVT etc. Trach in place PEG in place Anoxic brain injury with residual deficit Recommendations Continue meropenem IV to cover for MDR Pseudomonas as well as ESBL. kourtney Mahajan does not behave like an infectious process. Recommend Doppler to r/o DVT. Ordered Doppler LE if negative please order Doppler UE. Also consider EEG and Keppra level to rule out subclinical seizures as cause for fevers. Normal WBC and fevers points towards non infectious cause fever. If an alternative explanation for fever detected ok to stop Meropenem. If fevers defervesce off antibiotics ok to discharge from ID standpoint. Follow cultures Follow clinical course No family in the room Discussed with RN kourtney Mahajan ID thought process for the plan. covering for me this weekend.
[2018-09-25] MEDS: Morphine Sulfate Inj 2 MG/ML Vial IV.PUSH PRN (05:36)
[2018-09-25 07:46] LABS: Baso % (Auto) 0.5 % (0.0-2.0); Eos # (Auto) 0.2 th/mm3 (0.0-0.4); Eos % (Auto) 3.6 % (0.0-4.0); Hematocrit 37.7 % (39.0-51.0); Hemoglobin 12.9 gm/dL (13.0-17.0); Lymph # (Auto) 1.3 th/mm3 (1.0-4.8); Lymph % (Auto) 23.4 % (9.0-44.0); Mean Corpuscular HGB Conc 34.2 % (32.0-36.0); Mean Corpuscular Hemoglobin 31.8 pg (27.0-34.0); Mean Corpuscular Volume 92.8 fL (80.0-100.0); Mean Platelet Volume 10.1 fL (7.0-11.0); Mono # (Auto) 0.7 th/mm3 (0.0-0.9); Mono % (Auto) 11.8 % (0.0-8.0); Neut # (Auto) 3.4 th/mm3 (1.8-7.7); Neut % (Auto) 60.7 % (16.0-70.0); Platelet Count 155 th/mm3 (150-450); Red Blood Count 4.06 mil/mm3 (4.50-5.90); Red Cell Distribution Width 14.4 % (11.6-17.2); White Blood Count 5.6 th/mm3 (4.0-11.0)
[2018-09-25 08:05] LABS: Anion Gap 9 meq/L (5-15); Blood Urea Nitrogen 7 mg/dL (7-18); Calcium 8.5 mg/dL (8.5-10.1); Chloride 110 meq/L (98-107); Glomerular Filtration Rate Greater Than 89 mL/min (>89); Glucose,Random 94 mg/dL (74-106); Potassium 3.8 meq/L (3.5-5.1); Sodium 144 meq/L (136-145)
[2018-09-25] MEDS: Loratadine 10 MG Tablet G-TUBE SCH (08:14)
[2018-09-25] MEDS: Famotidine 20 MG Tablet G-TUBE SCH ×2 (08:14→20:30)
[2018-09-25] MEDS: Insulin NovoLOG Aspart Correctional Sugar Inj SQ SCH ×4 (08:14→20:32)
--- NOTE | 2018-09-25 09:54 | P.PN ---
Subjective Interval history: With some secretions suctioned. Appears in nad No fevers overnight noted Physical Exam Vital signs: Vital Signs 09/24/18 12:00 09/24/18 16:00 09/24/18 19:55 Temperature 97.7 F 98.7 F Pulse Rate 81 72 Respiratory Rate 18 17 Blood Pressure 142/83 H 117/70 Pulse Oximetry 95 94 L 97 09/24/18 20:00 09/24/18 20:56 09/24/18 20:59 Temperature 98.9 F Pulse Rate 97 H 76 Respiratory Rate 18 17 Blood Pressure 130/64 Pulse Oximetry 100 97 09/25/18 00:00 09/25/18 04:00 Temperature 97.7 F 98.6 F Pulse Rate 73 66 Respiratory Rate 18 17 Blood Pressure 115/58 L 150/74 H Pulse Oximetry 97 99 Intake & Output 09/24/18 09/25/18 09/25/18 18:59 06:59 18:59 Intake Total 1200 / 1200 300 / 300 Output Total 700 / 700 1000 / 1000 Balance 500 / 500 -700 / -700 Weight 66.8 kg Intake: IV 1200 / 1200 300 / 300 NS Inj 1,000 ML @ 100 mls/hr IV 1000 / 1000 .CONT .Q10H [facility] Rx#:[id number] Merrem Inj 500 MG In NS Inj 100 200 / 200 300 / 300 ML @ 200 mls/hr IV.SIG Q6HR [facility] Rx#:[id number] Oral 0 / 0 Output: Urine 700 / 700 1000 / 1000 Other: Date of Last Bowel Movement 09/24/18 09/24/18 # Bowel Movements 0 Narrative: GENERAL: Chronically ill bed bound, contracted 33 yo male, well-nourished well- developed, not in acute distress NECK: Trach in place no signs if infection. CARDIOVASCULAR: HS audible. RESPIRATORY: Clear to auscultation bilaterally. GASTROINTESTINAL: Abdomen soft nontender. PEG tube site looks okay. MUSCULOSKELETAL: Extremities without clubbing, cyanosis. NEUROLOGICAL: Opens eyes spontaneously, spasticity. Nonverbal. - Urinary Catheter Management Straight Cath placed during this visit: yes Reason for continuing: Not indwelling catheter Insertion date: 09/23/18 Insertion time: 04:30 Results - Labs CBC & Chem 7: 09/25/18 07:14 09/25/18 07:14 Laboratory Results - last 24 hr 1109/24/18 09/24/18 12:43 12:54 12:54 WBC 5.4 RBC 3.91 L Hgb 12.5 L Hct 36.2 L MCV 92.6 MCH 31.8 MCHC 34.4 RDW 14.6 Plt Count 166 MPV 10.5 Neut % (Auto) 66.7 Lymph % (Auto) 19.5 [place] % (Auto) 10.6 H Eos % (Auto) 2.7 Baso % (Auto) 0.5 Neut # (Auto) 3.6 Lymph # (Auto) 1.1 [place] # (Auto) 0.6 Eos # (Auto) 0.1 Baso # (Auto) 0.0 WBC Differential . Differential Comment Auto diff final Sodium 143 Potassium 3.6 Chloride 111 H Carbon Dioxide 25.1 Anion Gap 7 BUN 6 L Creatinine 0.78 Estimated GFR Greater than 89 POC Glucose 123 H Random Glucose 108 H Calcium 8.3 L 09/24/18 09/24/18 09/25/18 16:38 20:11 07:14 WBC 5.6 RBC 4.06 L Hgb 12.9 L Hct 37.7 L MCV 92.8 MCH 31.8 MCHC 34.2 RDW 14.4 Plt Count 155 MPV 10.1 Neut % (Auto) 60.7 Lymph % (Auto) 23.4 [place] % (Auto) 11.8 H Eos % (Auto) 3.6 Baso % (Auto) 0.5 Neut # (Auto) 3.4 Lymph # (Auto) 1.3 [place] # (Auto) 0.7 Eos # (Auto) 0.2 Baso # (Auto) 0.0 WBC Differential . Differential Comment Auto diff final Sodium Potassium Chloride Carbon Dioxide Anion Gap BUN Creatinine Estimated GFR POC Glucose 92 76 Random Glucose Calcium 09/25/18 09/25/18 07:14 08:07 WBC RBC Hgb Hct MCV MCH MCHC RDW Plt Count MPV Neut % (Auto) Lymph % (Auto) [place] % (Auto) Eos % (Auto) Baso % (Auto) Neut # (Auto) Lymph # (Auto) [place] # (Auto) Eos # (Auto) Baso # (Auto) WBC Differential Differential Comment Sodium 144 Potassium 3.8 Chloride 110 H Carbon Dioxide 25.0 Anion Gap 9 BUN 7 Creatinine 0.70 Estimated GFR Greater than 89 POC Glucose 96 Random Glucose 94 Calcium 8.5 Microbiology 09/23/18 02:50 Blood - Peripheral Aerobic Blood Culture - Preliminary No growth in 1 day 09/23/18 02:50 Blood - Peripheral Anaerobic Blood Culture - Preliminary No growth in 1 day 09/23/18 02:45 Blood - Peripheral Aerobic Blood Culture - Preliminary No growth in 1 day 09/23/18 02:45 Blood - Peripheral Anaerobic Blood Culture - Preliminary No growth in 1 day Assessment and Plan - Plan 1. ? Sepsis Patient febrile to 101, tachycardic and tachypneic. Lactic acid 2.9 History of ESBL UTI and Pseudomonas tracheal aspirate during previous hospitalization, discharged ~10 days ago [employer] Completed 1 week Zerbaxa on 09/09 Patient without leukocytosis Chest x-ray, UA negative Blood cultures pending Status post vancomycin, Zosyn and doxycycline in the ED Infectious disease consulted, appreciate recommendations Started on Meropenem IV for MDR pseudomonas and ESBL Discussed with Dr Nielsen infectious disease specialist and will explore the possibilities the patient might have fevers will check EEG for possible subclinical seizures, will check Keppra level this may cause fevers. Will check for DVT so far no DVT on the lower extremities will add Doppler for upper extremities to check for DVT however may not be possible as patient with contractures 2. Copious oral secretions Continue home Jo Trach care 3. Seizure disorder Continue Keppra 4. Type 2 diabetes mellitus Sliding scale insulin Monitor blood glucose 5. History of DVT Continue Eliquis FEN Continue tube feeds with Jevity 1.5 at 85 cc/hour Electrolytes: Monitor and replete as needed NS at 100 cc/hour Eliquis Discussed with the nurse. DC plan: pending improvement. Awaiting for results of Doppler US to r/o DVT, also EEG, keppra level r/o subclinical seizures. If remains afebrile might discontinue abx as well. Poss DC in 2-3 days if remains afebrile.
--- NOTE | 2018-09-25 10:02 | US ---
EXAM DATE: 09/25/2018 9:58 AM EST AGE/SEX: 33 years / Male INDICATIONS: Thrombosis. CLINICAL DATA: This is the patient's initial encounter. Patient reports that signs and symptoms have been present for 1 day and indicates a pain score of Nonresponsive. MEDICAL/SURGICAL HISTORY: . Anoxic brain damage. Diabetes. DVT. Dyslipidemia. GERD. MDRO. HTN. Pancreatitis. Seizure. Tracheostomy dependent. . PEG tube. COMPARISON: [facility] [place], US VENOUS DOPPLER ARM RIGHT, 05/29/2018. . FINDINGS: Right Upper Extremity: The vessels are compressible and augmentation response is documented. No fill ing defects are seen. The flow is phasic with respiration. Left Upper Extremity: The vessels are compressible and augmentation response is documented. No filli ng defects are seen. The flow is phasic with respiration. Other: None. CONCLUSION: No upper extremity venous thrombosis. Electronically signed by: Orlando Gillette MD 09/25/2018 10:00 AM EST
[2018-09-25] MEDS: Sod Chloride 0.9% Inj 1,000 ML IV.CONT SCH ×3 (12:53→20:16)
--- NOTE | 2018-09-25 21:12 | US ---
EXAM DATE: 09/25/2018 9:06 PM EST AGE/SEX: 33 years / Male INDICATIONS: Bilateral lower extremity edema. CLINICAL DATA: This is the patient's initial encounter. Patient reports that signs and symptoms have been present for 1 day and indicates a pain score of Nonresponsive. MEDICAL/SURGICAL HISTORY: . Anoxic brain damage. Diabetes. DVT. Dyslipidemia. GERD. MDRO. HTN. Pancreatitis. Seizure. Tracheostomy dependent. . PEG tube. COMPARISON: No prior exams available for comparison. TECHNIQUE: Venous ultrasound of both lower extremities was performed from the inguinal ligament to t he proximal calf. Real-time, color Doppler and spectral tracing, compression and augmentation techni ques were used. FINDINGS: Patient is contracted. Poor visualization of the bilateral common femoral veins, greater s aphenous veins and left popliteal vein. Right Leg: Normal compression of the deep venous system from the inguinal region to the proximal geraldine f. No echogenic clot is seen. Normal response of the venous system to augmentation and respiration. Left Leg: Normal compression of the deep venous system from the inguinal region to the proximal calf . No echogenic clot is seen. Normal response of the venous system to augmentation and respiration. Other: None. CONCLUSION: Limited study without evidence of venous thrombosis of either lower extremity. Please see above. Electronically signed by: Orlando Resendiz MD 09/25/2018 9:10 PM EST
[2018-09-26] MEDS: Sod Chloride 0.9% Inj 1,000 ML IV.CONT SCH ×4 (06:16→19:22)
[2018-09-26] MEDS: Famotidine 20 MG Tablet G-TUBE SCH ×2 (07:59→22:10)
[2018-09-26] MEDS: Loratadine 10 MG Tablet G-TUBE SCH (07:59)
[2018-09-26] MEDS: Insulin NovoLOG Aspart Correctional Sugar Inj SQ SCH ×4 (07:59→21:30)
[2018-09-26 11:25] LABS: Baso % (Auto) 0.6 % (0.0-2.0); Eos # (Auto) 0.2 th/mm3 (0.0-0.4); Eos % (Auto) 3.4 % (0.0-4.0); Hematocrit 36.5 % (39.0-51.0); Hemoglobin 12.6 gm/dL (13.0-17.0); Lymph # (Auto) 1.1 th/mm3 (1.0-4.8); Lymph % (Auto) 23.6 % (9.0-44.0); Mean Corpuscular HGB Conc 34.6 % (32.0-36.0); Mean Corpuscular Hemoglobin 32.5 pg (27.0-34.0); Mean Corpuscular Volume 93.9 fL (80.0-100.0); Mean Platelet Volume 10.2 fL (7.0-11.0); Mono # (Auto) 0.5 th/mm3 (0.0-0.9); Mono % (Auto) 12.2 % (0.0-8.0); Neut # (Auto) 2.7 th/mm3 (1.8-7.7); Neut % (Auto) 60.2 % (16.0-70.0); Platelet Count 170 th/mm3 (150-450); Red Blood Count 3.88 mil/mm3 (4.50-5.90); Red Cell Distribution Width 14.9 % (11.6-17.2); White Blood Count 4.5 th/mm3 (4.0-11.0)
[2018-09-26 11:47] LABS: Anion Gap 4 meq/L (5-15); Blood Urea Nitrogen 8 mg/dL (7-18); Calcium 8.6 mg/dL (8.5-10.1); Carbon Dioxide 26.7 meq/L (21.0-32.0); Chloride 113 meq/L (98-107); Glomerular Filtration Rate Greater Than 89 mL/min (>89); Glucose,Random 104 mg/dL (74-106); Potassium 4.1 meq/L (3.5-5.1); Sodium 144 meq/L (136-145)
--- NOTE | 2018-09-26 12:51 | MG ---
cc: Britton Slade MD EEG NUMBER: [id number] CLINICAL HISTORY: Tachycardia, anoxic brain damage. MEDICATIONS: 1. Eliquis. 2. Baclofen. 3. Keppra. DESCRIPTION: Recording shows really a flat line background. Photic stimulation is performed without significant change in the background, even at the lowest setting, appears probably to not have any brain activity. There was some mild head and eye movement, leg jerking. There are very, very minimal beta rhythms which could just be ICU background. The feet jerking can just correlate with some muscle artifact which is extremely low amplitude. IMPRESSION: This looks like probably consistent with brain , although clinical correlation is needed. Minimal background is seen, but could just be ICU artifact. Medication effect could also be considered. MD YAZMIN JasmineM/master , 10:02 AM , 10:07 AM
[2018-09-26] MEDS: Acetaminophen 325 MG Tablet PO PRN (12:58)
--- NOTE | 2018-09-26 13:00 | P.PN ---
Subjective Interval history: Spikes of fevers 101, discussed with ID specilaist Dr Rosado will repeat blood cultures today,. Dr Nielsen ID wll eval patient tomorrow. Patient appears in nad. VS otherwise fairly stable With secretions, suctioned Physical Exam Vital signs: Vital Signs 09/25/18 13:16 09/25/18 16:00 09/25/18 19:22 Temperature 98.7 F Pulse Rate 79 68 68 Respiratory Rate 18 18 18 Blood Pressure 116/56 L Pulse Oximetry 99 99 09/25/18 19:23 09/25/18 20:00 09/26/18 00:00 Temperature 101.0 F H 99.4 F Pulse Rate 103 H 67 Respiratory Rate 19 19 Blood Pressure 155/71 H 158/72 H Pulse Oximetry 99 93 L 95 09/26/18 00:04 09/26/18 04:00 09/26/18 07:51 Temperature 100.4 F H 99.8 F H Pulse Rate 69 79 86 Respiratory Rate 20 18 Blood Pressure 149/67 H 162/69 H Pulse Oximetry 100 96 09/26/18 08:51 09/26/18 08:54 09/26/18 12:00 Temperature 101.3 F H Pulse Rate 80 107 H Respiratory Rate 18 20 Blood Pressure 112/59 L Pulse Oximetry 98 98 Intake & Output 09/25/18 09/26/18 09/26/18 18:59 06:59 18:59 Intake Total 1025 / 1025 2435 / 2435 1000 / 1000 Output Total 1850 / 1850 450 / 450 Balance -825 / -825 2435 / 2435 550 / 550 Weight 71.9 kg Intake: IV 1025 / 1025 1375 / 1375 1000 / 1000 NS Inj 1,000 ML @ 100 mls/hr IV 825 / 825 1175 / 1175 1000 / 1000 .CONT .Q10H [facility] Rx#:[id number] Merrem Inj 500 MG In NS Inj 100 200 / 200 200 / 200 ML @ 200 mls/hr IV.SIG Q6HR [facility] Rx#:[id number] Oral 0 / 0 Tube Feeding 1020 / 1020 Tube Irrigant 40 / 40 Output: Urine 1850 / 1850 450 / 450 Other: # Incontinent Voids 1 Date of Last Bowel Movement 09/25/18 09/25/18 Narrative: GENERAL: Chronically ill bed bound, contracted 33 yo male, well-nourished well- developed, not in acute distress NECK: Trach in place no signs if infection. CARDIOVASCULAR: HS audible. RESPIRATORY: Clear to auscultation bilaterally. GASTROINTESTINAL: Abdomen soft nontender. PEG tube site looks okay. MUSCULOSKELETAL: Extremities without clubbing, cyanosis. NEUROLOGICAL: Opens eyes spontaneously, spasticity. Nonverbal. - Urinary Catheter Management Straight Cath placed during this visit: yes Reason for continuing: Not indwelling catheter Insertion date: 09/23/18 Insertion time: 04:30 Results - Labs CBC & Chem 7: 09/26/18 11:00 09/26/18 11:00 Laboratory Results - last 24 hr 09/25/18 09/25/18 09/25/18 12:53 16:37 20:31 WBC RBC Hgb Hct MCV MCH MCHC RDW Plt Count MPV Neut % (Auto) Lymph % (Auto) [place] % (Auto) Eos % (Auto) Baso % (Auto) Neut # (Auto) Lymph # (Auto) [place] # (Auto) Eos # (Auto) Baso # (Auto) WBC Differential Differential Comment Sodium Potassium Chloride Carbon Dioxide Anion Gap BUN Creatinine Estimated GFR POC Glucose 85 98 87 Random Glucose Calcium 09/26/18 09/26/18 09/26/18 07:35 11:00 11:00 WBC 4.5 RBC 3.88 L Hgb 12.6 L Hct 36.5 L MCV 93.9 MCH 32.5 MCHC 34.6 RDW 14.9 Plt Count 170 MPV 10.2 Neut % (Auto) 60.2 Lymph % (Auto) 23.6 [place] % (Auto) 12.2 H Eos % (Auto) 3.4 Baso % (Auto) 0.6 Neut # (Auto) 2.7 Lymph # (Auto) 1.1 [place] # (Auto) 0.5 Eos # (Auto) 0.2 Baso # (Auto) 0.0 WBC Differential . Differential Comment Auto diff final Sodium 144 Potassium 4.1 Chloride 113 H Carbon Dioxide 26.7 Anion Gap 4 L BUN 8 Creatinine 0.70 Estimated GFR Greater than 89 POC Glucose 104 Random Glucose 104 Calcium 8.6 09/26/18 12:19 WBC RBC Hgb Hct MCV MCH MCHC RDW Plt Count MPV Neut % (Auto) Lymph % (Auto) [place] % (Auto) Eos % (Auto) Baso % (Auto) Neut # (Auto) Lymph # (Auto) [place] # (Auto) Eos # (Auto) Baso # (Auto) WBC Differential Differential Comment Sodium Potassium Chloride Carbon Dioxide Anion Gap BUN Creatinine Estimated GFR POC Glucose 110 Random Glucose Calcium Microbiology 09/23/18 02:50 Blood - Peripheral Aerobic Blood Culture - Preliminary No growth in 3 days 09/23/18 02:50 Blood - Peripheral Anaerobic Blood Culture - Preliminary No growth in 3 days 09/23/18 02:45 Blood - Peripheral Aerobic Blood Culture - Preliminary No growth in 3 days 09/23/18 02:45 Blood - Peripheral Anaerobic Blood Culture - Preliminary No growth in 3 days - Imaging Impressions Venous Doppler Study 09/25/18 00:00 CONCLUSION: Limited study without evidence of venous thrombosis of either lower extremity. Please see above. Assessment and Plan - Plan 1. ? Sepsis Patient febrile to 101, tachycardic and tachypneic. Lactic acid 2.9 History of ESBL UTI and Pseudomonas tracheal aspirate during previous hospitalization, discharged ~10 days ago [employer]ER Completed 1 week Zerbaxa on 09/09 Patient without leukocytosis Chest x-ray, UA negative Blood cultures pending Status post vancomycin, Zosyn and doxycycline in the ED Infectious disease consulted, appreciate recommendations Started on Meropenem IV for MDR pseudomonas and ESBL Discussed with Dr Nielsen infectious disease specialist and will explore the possibilities the patient might have fevers will check EEG for possible subclinical seizures, will check Keppra level this may cause fevers. Will check for DVT so far no DVT on the lower extremities will add Doppler for upper extremities to check for DVT however may not be possible as patient with contractures 2. Copious oral secretions Continue home Jo [facility] care 3. Seizure disorder Continue Keppra 4. Type 2 diabetes mellitus Sliding scale insulin Monitor blood glucose 5. History of DVT Continue Eliquis FEN Continue tube feeds with Jevity 1.5 at 85 cc/hour Electrolytes: Monitor and replete as needed NS at 100 cc/hour Eliquis Discussed with the nurse. DC plan: pending improvement. Awaiting for results of Doppler US to r/o DVT, also EEG, keppra level r/o subclinical seizures. If remains afebrile might discontinue abx as well. However the patient noted with spikes of fevers on 09/25/18 at night at 8 PM and also in the morning of 09/26/18. Repeat blood cultures. Continue antibiotics.
[2018-09-27] MEDS: Sod Chloride 0.9% Inj 1,000 ML IV.CONT SCH ×3 (05:22→22:54)
[2018-09-27 07:46] LABS: Baso % (Auto) 0.7 % (0.0-2.0); Eos # (Auto) 0.2 th/mm3 (0.0-0.4); Eos % (Auto) 5.5 % (0.0-4.0); Hematocrit 39.7 % (39.0-51.0); Hemoglobin 13.4 gm/dL (13.0-17.0); Lymph # (Auto) 1.4 th/mm3 (1.0-4.8); Lymph % (Auto) 35.2 % (9.0-44.0); Mean Corpuscular HGB Conc 33.8 % (32.0-36.0); Mean Corpuscular Hemoglobin 31.9 pg (27.0-34.0); Mean Corpuscular Volume 94.4 fL (80.0-100.0); Mean Platelet Volume 9.8 fL (7.0-11.0); Mono # (Auto) 0.5 th/mm3 (0.0-0.9); Mono % (Auto) 12.4 % (0.0-8.0); Neut # (Auto) 1.9 th/mm3 (1.8-7.7); Neut % (Auto) 46.2 % (16.0-70.0); Platelet Count 173 th/mm3 (150-450); Red Blood Count 4.21 mil/mm3 (4.50-5.90); Red Cell Distribution Width 14.5 % (11.6-17.2); White Blood Count 4.1 th/mm3 (4.0-11.0)
[2018-09-27 08:14] LABS: Anion Gap 7 meq/L (5-15); Blood Urea Nitrogen 8 mg/dL (7-18); Carbon Dioxide 26.9 meq/L (21.0-32.0); Chloride 108 meq/L (98-107); Glomerular Filtration Rate Greater Than 89 mL/min (>89); Glucose,Random 90 mg/dL (74-106); Potassium 4.1 meq/L (3.5-5.1); Sodium 142 meq/L (136-145)
--- NOTE | 2018-09-27 08:56 | P.PN ---
Subjective Interval history: Afebrile overnight He does not appear in acute distress Discussed with infectious disease specialist will discontinue antibiotics and monitor patient off antibiotics. Fevers are likely not infectious related. Physical Exam Vital signs: Vital Signs 09/26/18 12:00 09/26/18 13:21 09/26/18 16:00 Temperature 101.3 F H 99.1 F Pulse Rate 107 H 80 69 Respiratory Rate 20 20 22 Blood Pressure 112/59 L 125/59 L Pulse Oximetry 98 97 09/26/18 20:00 09/26/18 20:03 09/26/18 20:04 Temperature 99.0 F Pulse Rate 58 L 69 Respiratory Rate 21 22 Blood Pressure 147/67 H Pulse Oximetry 100 97 09/27/18 00:00 09/27/18 00:50 09/27/18 04:00 Temperature 98.6 F 99.0 F Pulse Rate 70 73 Respiratory Rate 20 20 Blood Pressure 126/76 153/71 H Pulse Oximetry 95 98 98 Intake & Output 09/26/18 09/27/18 09/27/18 18:59 06:59 18:59 Intake Total 2936 / 2936 1360 / 1360 Output Total 1450 / 1450 750 / 750 Balance 1486 / 1486 610 / 610 Weight 68.1 kg Intake: IV 2200 / 2200 300 / 300 NS Inj 1,000 ML @ 100 mls/hr IV 2000 / 2000 100 / 100 .CONT .Q10H [facility] Rx#:[id number] Merrem Inj 500 MG In NS Inj 100 200 / 200 200 / 200 ML @ 200 mls/hr IV.SIG Q6HR [facility] Rx#:[id number] Oral 0 / 0 0 / 0 Tube Feeding 736 / 736 1020 / 1020 Tube Irrigant 40 / 40 Output: Urine 1450 / 1450 750 / 750 Other: # Incontinent Voids 1 # Incontinent Bowel Movements 1 Narrative: GENERAL: Chronically ill bed bound, contracted 33 yo male, well-nourished well- developed, not in acute distress NECK: Trach in place no signs if infection. CARDIOVASCULAR: HS audible. RESPIRATORY: Clear to auscultation bilaterally. GASTROINTESTINAL: Abdomen soft nontender. PEG tube site looks okay. MUSCULOSKELETAL: Extremities without clubbing, cyanosis. NEUROLOGICAL: Opens eyes spontaneously, spasticity. Nonverbal. - Urinary Catheter Management Straight Cath placed during this visit: yes Reason for continuing: Not indwelling catheter Insertion date: 09/23/18 Insertion time: 04:30 Results - Labs CBC & Chem 7: 09/27/18 07:19 09/27/18 07:19 Laboratory Results - last 24 hr 09/26/18 09/26/18 09/26/18 11:00 11:00 12:19 WBC 4.5 RBC 3.88 L Hgb 12.6 L Hct 36.5 L MCV 93.9 MCH 32.5 MCHC 34.6 RDW 14.9 Plt Count 170 MPV 10.2 Neut % (Auto) 60.2 Lymph % (Auto) 23.6 [place] % (Auto) 12.2 H Eos % (Auto) 3.4 Baso % (Auto) 0.6 Neut # (Auto) 2.7 Lymph # (Auto) 1.1 [place] # (Auto) 0.5 Eos # (Auto) 0.2 Baso # (Auto) 0.0 WBC Differential . Differential Comment Auto diff final Sodium 144 Potassium 4.1 Chloride 113 H Carbon Dioxide 26.7 Anion Gap 4 L BUN 8 Creatinine 0.70 Estimated GFR Greater than 89 POC Glucose 110 Random Glucose 104 Calcium 8.6 09/26/18 09/26/18 09/27/18 16:48 22:12 07:19 WBC 4.1 RBC 4.21 L Hgb 13.4 Hct 39.7 MCV 94.4 MCH 31.9 MCHC 33.8 RDW 14.5 Plt Count 173 MPV 9.8 Neut % (Auto) 46.2 Lymph % (Auto) 35.2 [place] % (Auto) 12.4 H Eos % (Auto) 5.5 H Baso % (Auto) 0.7 Neut # (Auto) 1.9 Lymph # (Auto) 1.4 [place] # (Auto) 0.5 Eos # (Auto) 0.2 Baso # (Auto) 0.0 WBC Differential . Differential Comment Auto diff final Sodium Potassium Chloride Carbon Dioxide Anion Gap BUN Creatinine Estimated GFR POC Glucose 109 88 Random Glucose Calcium 09/27/18 09/27/18 07:19 08:02 WBC RBC Hgb Hct MCV MCH MCHC RDW Plt Count MPV Neut % (Auto) Lymph % (Auto) [place] % (Auto) Eos % (Auto) Baso % (Auto) Neut # (Auto) Lymph # (Auto) [place] # (Auto) Eos # (Auto) Baso # (Auto) WBC Differential Differential Comment Sodium 142 Potassium 4.1 Chloride 108 H Carbon Dioxide 26.9 Anion Gap 7 BUN 8 Creatinine 0.68 Estimated GFR Greater than 89 POC Glucose 112 H Random Glucose 90 Calcium 9.0 Microbiology 09/23/18 02:50 Blood - Peripheral Aerobic Blood Culture - Preliminary No growth in 3 days 09/23/18 02:50 Blood - Peripheral Anaerobic Blood Culture - Preliminary No growth in 3 days 09/23/18 02:45 Blood - Peripheral Aerobic Blood Culture - Preliminary No growth in 3 days 09/23/18 02:45 Blood - Peripheral Anaerobic Blood Culture - Preliminary No growth in 3 days Assessment and Plan - Plan 1. ? Sepsis Patient febrile to 101, tachycardic and tachypneic. 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 Will check for DVT so far no DVT on the lower extremities will add Doppler for upper extremities to check for DVT however may not be possible as patient with contractures Noted with spikes of fevers however fevers are most likely not infectious related. Will discontinue the antibiotics and monitor off antibiotics. 2. Copious oral secretions Continue home [facility] care 3. Seizure disorder Continue Keppra Check Keppra level EEG reviewed 4. Type 2 diabetes mellitus Sliding scale insulin Monitor blood glucose 5. History of DVT Continue Eliquis FEN Continue tube feeds with Jevity 1.5 at 85 cc/hour Electrolytes: Monitor and replete as needed NS at 100 cc/hour Eliquis Discussed with the nurse. DC plan: pending improvement. Awaiting for results of Doppler US to r/o DVT, also EEG, keppra level r/o subclinical seizures. If remains afebrile might discontinue abx as well. However the patient noted with spikes of fevers on 09/25/18 at night at 8 PM and also in the morning of 09/26/18. Repeat blood cultures. Discussed with infectious disease specialist, will discontinue antibiotics. Fevers are most likely not infectious in nature. Will monitor off antibiotics.
[2018-09-27] MEDS: Famotidine 20 MG Tablet G-TUBE SCH ×2 (10:58→22:54)
[2018-09-27] MEDS: Insulin NovoLOG Aspart Correctional Sugar Inj SQ SCH ×4 (10:58→22:54)
[2018-09-27] MEDS: Loratadine 10 MG Tablet G-TUBE SCH (10:58)
--- NOTE | 2018-09-27 13:03 | P.PNID ---
Subjective Remarks: Mr. Ahn is a 33-year-old -[place] male with past medical history significant for anoxic brain injury with chronic trach and PEG who presents to the emergency department from a intermediate. Patient has a prior history of MDR organisms such as ESBL as well as Pseudomonas. Patient now presents to [facility] emergency department for evaluation of tachycardia, tachypnea and fever. Per EMS the patient was running a temperature 101 with a pulse of 179 and respiratory rate in the 30s. His blood pressure was 179 x 103 and his lactic acid was 6 slightly elevated on admission. Patient was recently discharged on 09/13/2018 where he was hospitalized for healthcare associated pneumonia with sepsis. His tracheal aspirate at that time grew Pseudomonas and urine cultures were positive for ESBL he was treated with 1 week of Zyprexa per infectious disease recommendations. Infectious disease is now consulted for evaluation of fever and sores that appears to be recurrent. Overnight events reviewed No fever No rash no diarrhea Neuro status unchanged. EEG reviewed report and dw Antibiotics: Meropenem IV Lines: Lines ok Past Medical History: reviewed Allergies/Adverse Reactions: Allergies haloperidol Adverse Reaction (Severe, Verified 06/09/18 09:58) Seizures *MDRO Multi-Drug Resistant Organism Adverse Reaction (Unknown, Uncoded 06/09/18 09:58) Dry Mucus Membranes MRSA (sputum) - 04/25/16 & 05/23/16 MRSA PCR Screen POSITIVE - 04/25/2016 ESBL+E.Coli (blood-05/22/16) Objective Vital Signs 09/26/18 13:21 09/26/18 16:00 09/26/18 20:00 Temperature 99.1 F 99.0 F Pulse Rate 80 69 58 L Respiratory Rate 20 22 21 Blood Pressure 125/59 L 147/67 H Pulse Oximetry 97 100 09/26/18 20:03 09/26/18 20:04 09/27/18 00:00 Temperature 98.6 F Pulse Rate 69 70 Respiratory Rate 22 20 Blood Pressure 126/76 Pulse Oximetry 97 95 09/27/18 00:50 09/27/18 04:00 09/27/18 08:00 Temperature 99.0 F 98.2 F Pulse Rate 73 84 Respiratory Rate 20 20 Blood Pressure 153/71 H 121/64 Pulse Oximetry 98 98 99 09/27/18 09:36 09/27/18 12:00 Temperature 98.5 F Pulse Rate 52 L 63 Respiratory Rate 16 18 Blood Pressure 125/74 Pulse Oximetry 95 100 Intake & Output 09/26/18 09/27/18 09/27/18 18:59 06:59 18:59 Intake Total 2936 / 2936 1360 / 1360 Output Total 1450 / 1450 750 / 750 Balance 1486 / 1486 610 / 610 Weight 68.1 kg Intake: IV 2200 / 2200 300 / 300 NS Inj 1,000 ML @ 100 mls/hr IV 2000 / 2000 100 / [address] [facility] Rx#:[id number] Merrem Inj 500 MG In NS Inj 100 200 / 200 200 / 200 ML @ 200 mls/hr IV.SIG Q6HR [facility] Rx#:[id number] Oral 0 / 0 0 / 0 Tube Feeding 736 / 736 1020 / 1020 Tube Irrigant 40 / 40 Output: Urine 1450 / 1450 750 / 750 Other: # Incontinent Voids 1 # Incontinent Bowel Movements 1 09/26/18 16:30 Blood - Peripheral Aerobic Blood Culture - Preliminary No growth in 1 day 09/26/18 16:30 Blood - Peripheral Anaerobic Blood Culture - Preliminary No growth in 1 day 09/26/18 16:15 Blood - Peripheral Aerobic Blood Culture - Preliminary No growth in 1 day 09/26/18 16:15 Blood - Peripheral Anaerobic Blood Culture - Preliminary No growth in 1 day 09/23/18 02:50 Blood - Peripheral Aerobic Blood Culture - Preliminary No growth in 4 days 09/23/18 02:50 Blood - Peripheral Anaerobic Blood Culture - Preliminary No growth in 4 days 09/23/18 02:45 Blood - Peripheral Aerobic Blood Culture - Preliminary No growth in 4 days 09/23/18 02:45 Blood - Peripheral Anaerobic Blood Culture - Preliminary No growth in 4 days Lab - Hematology Results 09/26/18 09/27/18 11:00 07:19 WBC 4.5 4.1 RBC 3.88 L 4.21 L Hgb 12.6 L 13.4 Hct 36.5 L 39.7 MCV 93.9 94.4 MCH 32.5 31.9 MCHC 34.6 33.8 RDW 14.9 14.5 Plt Count 170 173 MPV 10.2 9.8 Neut % (Auto) 60.2 46.2 Lymph % (Auto) 23.6 35.2 [place] % (Auto) 12.2 H 12.4 H Eos % (Auto) 3.4 5.5 H Baso % (Auto) 0.6 0.7 Neut # (Auto) 2.7 1.9 Lymph # (Auto) 1.1 1.4 [place] # (Auto) 0.5 0.5 Eos # (Auto) 0.2 0.2 Baso # (Auto) 0.0 0.0 WBC Differential . . Differential Comment Auto diff final Auto diff final Lab - Chemistry Results 09/25/18 09/25/18 09/26/18 16:37 20:31 07:35 Sodium Potassium Chloride Carbon Dioxide Anion Gap BUN Creatinine Estimated GFR POC Glucose 98 87 104 Random Glucose Calcium 09/26/18 09/26/18 09/26/18 11:00 12:19 16:48 Sodium 144 Potassium 4.1 Chloride 113 H Carbon Dioxide 26.7 Anion Gap 4 L BUN 8 Creatinine 0.70 Estimated GFR Greater than 89 POC Glucose 110 109 Random Glucose 104 Calcium 8.6 09/26/18 09/27/18 09/27/18 22:12 07:19 08:02 Sodium 142 Potassium 4.1 Chloride 108 H Carbon Dioxide 26.9 Anion Gap 7 BUN 8 Creatinine 0.68 Estimated GFR Greater than 89 POC Glucose 88 112 H Random Glucose 90 Calcium 9.0 09/27/18 12:34 Sodium Potassium Chloride Carbon Dioxide Anion Gap BUN Creatinine Estimated GFR POC Glucose 118 H Random Glucose Calcium Imaging: ITS Impressions Chest X-Ray 09/23/18 02:47 CONCLUSION: Chronic cardiac silhouette enlargement. No acute cardiopulmonary disease identified. Venous Doppler Study 09/25/18 00:00 CONCLUSION: Limited study without evidence of venous thrombosis of either lower extremity. Please see above. Physical Exam: GENERAL: Well-nourished well-developed, not in acute distress SKIN: Cool and dry, no generalized rash HEAD: Atraumatic. Normocephalic. No temporal or scalp tenderness. EYES: Pupils equal round and reactive. Scleral icterus. No injection or drainage. No petechia ENT: Nothing abnormal detected NECK: Trach site looks okay. Supple, nontender, no meningeal signs. CARDIOVASCULAR: HS audible. RESPIRATORY: Clear to auscultation bilaterally. GASTROINTESTINAL: Abdomen soft nontender. PEG tube site looks okay. MUSCULOSKELETAL: Extremities without clubbing, cyanosis. NEUROLOGICAL: Opens eyes spontaneously sometimes, some spasticity noted. Nonverbal. Psych cooperative IV line sites ok. Assessment and Plan - Plan Systemic inflammatory response syndrome with fevers tachycardia on admission possible source tracheobronchitis Tracheobronchitis prior history of MDR Pseudomonas as well as ESBL Fever: likely non infectious: drug fever (keppra), subclinical seizures, or DVT etc. Trach in place PEG in place Anoxic brain injury with residual deficit Recommendations DC meropenem IV. Observe off antibiotics. dw does not behave like an infectious process. Suspect this is drug fever as eosinophils high and normal WBC. Suspect drugs could be meropenem, keppra. Doppler negative. If fevers defervesce off antibiotics ok to discharge from ID standpoint. Follow cultures Follow clinical course No family in the room Discussed with .
[2018-09-27] MEDS: Acetaminophen 325 MG Tablet PO PRN (23:38)
[2018-09-28] MEDS: Loratadine 10 MG Tablet G-TUBE SCH (08:34)
[2018-09-28] MEDS: Famotidine 20 MG Tablet G-TUBE SCH ×2 (08:34→22:02)
[2018-09-28] MEDS: Insulin NovoLOG Aspart Correctional Sugar Inj SQ SCH ×4 (08:37→22:01)
[2018-09-28] MEDS ORDERED: dilTIAZem 30 MG Tablet PO ONE (08:55)
[2018-09-28] MEDS ORDERED: Hyoscyamine Liq Drops 0.125 MG/ML 15 ML Bottle SL ONE (09:02)
[2018-09-28] MEDS ORDERED: MethylPREDNISolone Sod Succinate Inj 125 MG/2 ML Vial IV.PUSH ONE (09:03)
[2018-09-28] MEDS: Sod Chloride 0.9% Inj 1,000 ML IV.CONT SCH ×2 (09:16→20:29)
[2018-09-28 09:39] LABS: Baso % (Auto) 0.5 % (0.0-2.0); Eos % (Auto) 0.4 % (0.0-4.0); Hematocrit 46.3 % (39.0-51.0); Hemoglobin 15.8 gm/dL (13.0-17.0); Lymph # (Auto) 1.6 th/mm3 (1.0-4.8); Lymph % (Auto) 15.6 % (9.0-44.0); Mean Corpuscular HGB Conc 34.2 % (32.0-36.0); Mean Corpuscular Hemoglobin 31.9 pg (27.0-34.0); Mean Corpuscular Volume 93.3 fL (80.0-100.0); Mean Platelet Volume 10.6 fL (7.0-11.0); Mono # (Auto) 0.9 th/mm3 (0.0-0.9); Neut # (Auto) 7.7 th/mm3 (1.8-7.7); Neut % (Auto) 74.5 % (16.0-70.0); Platelet Count 280 th/mm3 (150-450); Red Blood Count 4.96 mil/mm3 (4.50-5.90); Red Cell Distribution Width 14.6 % (11.6-17.2); White Blood Count 10.3 th/mm3 (4.0-11.0)
[2018-09-28 10:01] LABS: Anion Gap 11 meq/L (5-15); Blood Urea Nitrogen 17 mg/dL (7-18); Calcium 9.6 mg/dL (8.5-10.1); Carbon Dioxide 23.7 meq/L (21.0-32.0); Chloride 107 meq/L (98-107); Glomerular Filtration Rate Greater Than 89 mL/min (>89); Glucose,Random 139 mg/dL (74-106); Potassium 4.2 meq/L (3.5-5.1); Sodium 142 meq/L (136-145)
--- NOTE | 2018-09-28 10:29 | XR ---
EXAM DATE: 09/28/2018 10:26 AM EST AGE/SEX: 33 years / Male INDICATIONS: Cough. CLINICAL DATA: This is the patient's initial encounter. Patient reports that signs and symptoms have been present for 1 week and indicates a pain score of Nonresponsive. MEDICAL/SURGICAL HISTORY: . anoxic brain, Diabetes, DVT, gerd, hypertension, pancreatitis, trac h dependent . peg tube COMPARISON: [facility], CHEST 1V SINGLE AP, 09/23/2018. . FINDINGS: The tracheostomy tube is in satisfactory position. The heart is enlarged. The lungs are clear. The visualized bony structures are grossly intact. CONCLUSION: Cardiomegaly. Stable compared to previous examination dated 09/23/2018. Electronically signed by: Quinn Gomez MD 09/28/2018 10:28 AM EST
--- NOTE | 2018-09-28 11:16 | P.PN ---
Subjective Interval history: The patient was noted tachycardic and also with high blood pressure. Is also noted with more secretions. Levsin is changed to scheduled. Discussed with the mother at bedside very supportive and with the nurse. Patient needs close observation will moved to ICU. We will add [place] for pain and 1 dose of Flexeril. Started on Cardizem. EKG reviewed with sinus tachycardia Physical Exam Vital signs: Vital Signs 09/27/18 12:00 09/27/18 14:04 09/27/18 16:00 Temperature 98.5 F 98.6 F Pulse Rate 63 63 58 L Respiratory Rate 18 16 18 Blood Pressure 125/74 130/68 Pulse Oximetry 100 99 09/27/18 20:00 09/27/18 20:06 09/27/18 23:03 Temperature 98.6 F Pulse Rate 96 H 72 Respiratory Rate 16 19 16 Blood Pressure 127/70 Pulse Oximetry 99 99 09/27/18 23:49 09/28/18 01:09 09/28/18 01:44 Temperature 101.9 F H 99.1 F Pulse Rate 102 H Respiratory Rate 34 H Blood Pressure Pulse Oximetry 09/28/18 08:00 09/28/18 10:05 Temperature 99.1 F Pulse Rate 126 H Respiratory Rate 46 H Blood Pressure 150/87 H Pulse Oximetry 95 95 Intake & Output 09/27/18 09/28/18 09/28/18 18:59 06:59 18:59 Intake Total 1000 / 1000 Output Total 2049 450 / 450 Balance -1050 / -1050 -450 / -450 Weight 68.4 kg Intake: IV 1000 / 1000 NS Inj 1,000 ML @ 100 mls/hr IV 1000 / 1000 .CONT .Q10H [facility] Rx#:[id number] Output: Urine 750 / 750 450 / 450 Urine Amount (Catheter) 1300 / 1300 Straight 1300 / 1300 Other: # Incontinent Voids 2 Date of Last Bowel Movement 09/27/18 09/27/18 # Bowel Movements 2 2 Narrative: GENERAL: Chronically ill bed bound, contracted 33 yo male, well-nourished well- developed, with more secretions, tachycardic NECK: Trach in place no signs if infection. CARDIOVASCULAR: Tachycardic, no murmur RESPIRATORY: Clear to auscultation bilaterally. GASTROINTESTINAL: Abdomen soft nontender. PEG tube in place. MUSCULOSKELETAL: Extremities without clubbing, cyanosis. NEUROLOGICAL: Opens eyes spontaneously, spasticity. Nonverbal, baseline. - Urinary Catheter Management Straight Cath placed during this visit: yes Reason for continuing: Not indwelling catheter Insertion date: 09/23/18 Insertion time: 04:30 Results - Labs CBC & Chem 7: 09/28/18 09:14 09/28/18 09:14 Laboratory Results - last 24 hr 09/27/18 09/27/18 09/27/18 12:34 16:14 20:22 WBC RBC Hgb Hct MCV MCH MCHC RDW Plt Count MPV Neut % (Auto) Lymph % (Auto) [place] % (Auto) Eos % (Auto) Baso % (Auto) Neut # (Auto) Lymph # (Auto) [place] # (Auto) Eos # (Auto) Baso # (Auto) WBC Differential Differential Comment Sodium Potassium Chloride Carbon Dioxide Anion Gap BUN Creatinine Estimated GFR POC Glucose 118 H 93 116 H Random Glucose Calcium 09/28/18 09/28/18 09/28/18 08:24 09:14 09:14 WBC 10.3 RBC 4.96 Hgb 15.8 D Hct 46.3 MCV 93.3 MCH 31.9 MCHC 34.2 RDW 14.6 Plt Count 280 D MPV 10.6 Neut % (Auto) 74.5 H Lymph % (Auto) 15.6 [place] % (Auto) 9.0 H Eos % (Auto) 0.4 Baso % (Auto) 0.5 Neut # (Auto) 7.7 Lymph # (Auto) 1.6 [place] # (Auto) 0.9 Eos # (Auto) 0.0 Baso # (Auto) 0.0 WBC Differential . Differential Comment Auto diff final Sodium 142 Potassium 4.2 Chloride 107 Carbon Dioxide 23.7 Anion Gap 11 BUN 17 Creatinine 1.13 Estimated GFR Greater than 89 POC Glucose 118 H Random Glucose 139 H Calcium 9.6 09/28/18 11:08 WBC RBC Hgb Hct MCV MCH MCHC RDW Plt Count MPV Neut % (Auto) Lymph % (Auto) [place] % (Auto) Eos % (Auto) Baso % (Auto) Neut # (Auto) Lymph # (Auto) [place] # (Auto) Eos # (Auto) Baso # (Auto) WBC Differential Differential Comment Sodium Potassium Chloride Carbon Dioxide Anion Gap BUN Creatinine Estimated GFR POC Glucose 105 Random Glucose Calcium Microbiology 09/26/18 16:30 Blood - Peripheral Aerobic Blood Culture - Preliminary No growth in 2 days 09/26/18 16:30 Blood - Peripheral Anaerobic Blood Culture - Preliminary No growth in 2 days 09/26/18 16:15 Blood - Peripheral Aerobic Blood Culture - Preliminary No growth in 2 days 09/26/18 16:15 Blood - Peripheral Anaerobic Blood Culture - Preliminary No growth in 2 days 09/23/18 02:50 Blood - Peripheral Aerobic Blood Culture - Final No growth in 5 days 09/23/18 02:50 Blood - Peripheral Anaerobic Blood Culture - Final No growth in 5 days 09/23/18 02:45 Blood - Peripheral Aerobic Blood Culture - Final No growth in 5 days 09/23/18 02:45 Blood - Peripheral Anaerobic Blood Culture - Final No growth in 5 days - Imaging Impressions Chest X-Ray 09/28/18 00:00 CONCLUSION: Cardiomegaly. Stable compared to previous examination dated 09/23/2018. Assessment and Plan - Plan 1. ? Sepsis Patient febrile to 101, tachycardic and tachypneic. 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 Will check for DVT so far no DVT on the lower extremities will add Doppler for upper extremities to check for DVT however may not be possible as patient with contractures Noted with spikes of fevers however fevers are most likely not infectious related. Will discontinue the antibiotics and monitor off antibiotics. Continue to monitor off antibiotics discussed with infectious disease specialist. Patient with normal white blood cells and with elevated elevation of feels might be medications allergy Doppler ultrasound shows no DVT EEG reviewed anoxic brain Keppra level is pending Chest x-ray reviewed no change EKG reviewed sinus tachycardia Started on Cardizem as patient noted with hypertension and with sinus tachycardia Monitor vital signs 2. Copious oral secretions Continue home Jo Trach care 3. Seizure disorder Continue Keppra Check Keppra level EEG reviewed 4. Type 2 diabetes mellitus Sliding scale insulin Monitor blood glucose 5. History of DVT Continue Eliquis FEN Continue tube feeds with Jevity 1.5 at 85 cc/hour Electrolytes: Monitor and replete as needed NS at 100 cc/hour Eliquis Discussed with the nurse. DC plan: pending improvement. Awaiting for results of Doppler US to r/o DVT, also EEG, keppra level r/o subclinical seizures. If remains afebrile might discontinue abx as well. However the patient noted with spikes of fevers on 09/25/18 at night at 8 PM and also in the morning of 09/26/18. Repeat blood cultures. Discussed with infectious disease specialist, will discontinue antibiotics. Fevers are most likely not infectious in nature. Will monitor off antibiotics.
[2018-09-28] MEDS: dilTIAZem 30 MG Tablet J-TUBE SCH ×3 (12:01→22:01)
--- NOTE | 2018-09-28 12:17 | MG ---
cc: Марина Barrientos MD EEG NUMBER: [id number]. REFERRING PROVIDER: Dr. Shannon Collado. Room: 1734. TECHNIQUE: Photic stimulation, awake, has a trach. This is a repeat study, nonverbal at baseline. Admitted for tachycardia, fever, possible subclinical seizures, history of anoxic brain injury on Eliquis, Keppra, Cardizem. DESCRIPTION OF THE RECORD: Overall slowing of the background. Quite a bit of artifact noted. Ongoing movement. The tech is touching the electrodes. Continuous eye movement, but overall an attenuated background. No appreciable epileptiform features. Photic stimulation, no significant driving response. IMPRESSION: Abnormal EEG due to moderate slowing of the background without any epileptiform features consistent with encephalopathic process. Clinical correlation. Марина Barrientos MD DF/selena , 11:55 AM , 12:00 PM
[2018-09-28] MEDS: Morphine Sulfate Inj 2 MG/ML Vial IV.PUSH PRN ×2 (12:21→15:28)
[2018-09-28] MEDS ORDERED: dilTIAZem 30 MG Tablet PO SCH (13:00)
--- NOTE | 2018-09-28 15:33 | ECG ---
Date Performed: 09/28/2018 Time Performed: 09:23:01 PTAGE: 33 years EKG: SINUS TACHYCARDIA INDETERMINATE AXIS POSSIBLE RIGHT VENTRICULAR HYPERTROPHY ABNORMAL ECG PREVIOUS TRACING : 08/22/2018 00.10 Since the previous tracing, no significant change noted DOCTOR: Umang Lo Interpretating Date/Time 09/28/2018 15:31:40
[2018-09-28] MEDS ORDERED: hydrALAZINE HCl Inj 20 MG/ML Vial IV.PUSH PRN (15:43)
--- NOTE | 2018-09-28 15:44 | P.PNID ---
Subjective Remarks: Mr. Ahn is a 33-year-old -[place] male with past medical history significant for anoxic brain injury with chronic trach and PEG who [facility] department [facility]. Patient has a prior history of MDR organisms such as ESBL as well as Pseudomonas. Patient now presents to [facility] emergency department for evaluation of tachycardia, tachypnea and fever. Per EMS the patient was running a temperature 101 with a pulse of 179 and respiratory rate in the 30s. His blood pressure was 179 x 103 and his lactic acid was 6 slightly elevated on admission. Patient was recently discharged on 09/13/2018 where he was hospitalized for healthcare associated pneumonia with sepsis. His tracheal aspirate at that time grew Pseudomonas and urine cultures were positive for ESBL he was treated with 1 week of Zyprexa per infectious disease recommendations. Infectious disease is now consulted for evaluation of fever and sores that appears to be recurrent. Overnight events reviewed No fever No rash no diarrhea Neuro status unchanged. EEG reviewed report. Antibiotics: Meropenem IV Lines: Lines ok Past Medical History: reviewed Allergies/Adverse Reactions: Allergies haloperidol Adverse Reaction (Severe, Verified 06/09/18 09:58) Seizures *MDRO Multi-Drug Resistant Organism Adverse Reaction (Unknown, Uncoded 06/09/18 09:58) Dry Mucus Membranes MRSA (sputum) - 04/25/16 & 05/23/16 MRSA PCR Screen POSITIVE - 04/25/2016 ESBL+E.Coli (blood-05/22/16) Objective Vital Signs 09/27/18 16:00 09/27/18 20:00 09/27/18 20:06 Temperature 98.6 F Pulse Rate 58 L 96 H Respiratory Rate 18 16 19 Blood Pressure 130/68 Pulse Oximetry 99 99 09/27/18 23:03 09/27/18 23:49 09/28/18 01:09 Temperature 98.6 F 101.9 F H 99.1 F Pulse Rate 72 Respiratory Rate 16 Blood Pressure 127/70 Pulse Oximetry 99 09/28/18 01:44 09/28/18 08:00 09/28/18 10:05 Temperature 99.1 F Pulse Rate 102 H 126 H Respiratory Rate 34 H 46 H Blood Pressure 150/87 H Pulse Oximetry 95 95 09/28/18 14:03 Temperature Pulse Rate 96 H Respiratory Rate 28 H Blood Pressure Pulse Oximetry Intake & Output 09/27/18 09/28/18 09/28/18 18:59 06:59 18:59 Intake Total 1000 / 1000 Output Total 2049 450 / 450 Balance -1050 / -1050 -450 / -450 Weight 68.4 kg Intake: IV 1000 / 1000 NS Inj 1,000 ML @ 100 mls/hr IV 1000 / 1000 .CONT .Q10H SHAYNA Rx#:[id number] Output: Urine 750 / 750 450 / 450 Urine Amount (Catheter) 1300 / 1300 Straight 1300 / 1300 Other: # Incontinent Voids 2 Date of Last Bowel Movement 09/27/18 09/27/18 # Bowel Movements 2 2 09/26/18 16:30 Blood - Peripheral Aerobic Blood Culture - Preliminary No growth in 2 days 09/26/18 16:30 Blood - Peripheral Anaerobic Blood Culture - Preliminary No growth in 2 days 09/26/18 16:15 Blood - Peripheral Aerobic Blood Culture - Preliminary No growth in 2 days 09/26/18 16:15 Blood - Peripheral Anaerobic Blood Culture - Preliminary No growth in 2 days 09/23/18 02:50 Blood - Peripheral Aerobic Blood Culture - Final No growth in 5 days 09/23/18 02:50 Blood - Peripheral Anaerobic Blood Culture - Final No growth in 5 days 09/23/18 02:45 Blood - Peripheral Aerobic Blood Culture - Final No growth in 5 days 09/23/18 02:45 Blood - Peripheral Anaerobic Blood Culture - Final No growth in 5 days Lab - Hematology Results 09/27/18 09/28/18 07:19 09:14 WBC 4.1 10.3 RBC 4.21 L 4.96 Hgb 13.4 15.8 D Hct 39.7 46.3 MCV 94.4 93.3 MCH 31.9 31.9 MCHC 33.8 34.2 RDW 14.5 14.6 Plt Count 173 280 D MPV 9.8 10.6 Neut % (Auto) 46.2 74.5 H Lymph % (Auto) 35.2 15.6 [place] % (Auto) 12.4 H 9.0 H Eos % (Auto) 5.5 H 0.4 Baso % (Auto) 0.7 0.5 Neut # (Auto) 1.9 7.7 Lymph # (Auto) 1.4 1.6 [place] # (Auto) 0.5 0.9 Eos # (Auto) 0.2 0.0 Baso # (Auto) 0.0 0.0 WBC Differential . . Differential Comment Auto diff final Auto diff final Lab - Chemistry Results 09/26/18 09/26/18 09/27/18 16:48 22:12 07:19 Sodium 142 Potassium 4.1 Chloride 108 H Carbon Dioxide 26.9 Anion Gap 7 BUN 8 Creatinine 0.68 Estimated GFR Greater than 89 POC Glucose 109 88 Random Glucose 90 Calcium 9.0 09/27/18 09/27/18 09/27/18 08:02 12:34 16:14 Sodium Potassium Chloride Carbon Dioxide Anion Gap BUN Creatinine Estimated GFR POC Glucose 112 H 118 H 93 Random Glucose Calcium 09/27/18 09/28/18 09/28/18 20:22 08:24 09:14 Sodium 142 Potassium 4.2 Chloride 107 Carbon Dioxide 23.7 Anion Gap 11 BUN 17 Creatinine 1.13 Estimated GFR Greater than 89 POC Glucose 116 H 118 H Random Glucose 139 H Calcium 9.6 09/28/18 11:08 Sodium Potassium Chloride Carbon Dioxide Anion Gap BUN Creatinine Estimated GFR POC Glucose 105 Random Glucose Calcium Imaging: ITS Impressions Venous Doppler Study 09/25/18 00:00 CONCLUSION: Limited study without evidence of venous thrombosis of either lower extremity. Please see above. Chest X-Ray 09/28/18 00:00 CONCLUSION: Cardiomegaly. Stable compared to previous examination dated 09/23/2018. Physical Exam: GENERAL: Well-nourished well-developed, not in acute distress SKIN: Cool and dry, no generalized rash HEAD: Atraumatic. Normocephalic. No temporal or scalp tenderness. EYES: Pupils equal round and reactive. Scleral icterus. No injection or drainage. No petechia ENT: Nothing abnormal detected NECK: Trach site looks okay. Supple, nontender, no meningeal signs. CARDIOVASCULAR: HS audible. RESPIRATORY: Clear to auscultation bilaterally. GASTROINTESTINAL: Abdomen soft nontender. PEG tube site looks okay. MUSCULOSKELETAL: Extremities without clubbing, cyanosis. NEUROLOGICAL: Opens eyes spontaneously sometimes, some spasticity noted. Nonverbal. Psych cooperative IV line sites ok. Assessment and Plan - Plan Systemic inflammatory response syndrome with fevers tachycardia on admission possible source tracheobronchitis Tracheobronchitis prior history of MDR Pseudomonas as well as ESBL Fever: likely non infectious: drug fever (keppra), subclinical seizures, or DVT etc. Trach in place PEG in place Anoxic brain injury with residual deficit Recommendations Continue to observe off antibiotics. Again does not behave like an infectious process. Suspect this is drug fever as eosinophils high and normal WBC. Suspect drugs could be meropenem, keppra. Doppler negative. If change in clinical condition suggestive of sepsis ok to start Broad spectrum antibiotics. Follow cultures Follow clinical course No family in the room kourtney CHEN
[2018-09-29] MEDS: Sod Chloride 0.9% Inj 1,000 ML IV.CONT SCH ×3 (00:47→22:44)
[2018-09-29 06:46] LABS: Baso % (Auto) 0.2 % (0.0-2.0); Hemoglobin 13.1 gm/dL (13.0-17.0); Lymph # (Auto) 1.2 th/mm3 (1.0-4.8); Lymph % (Auto) 14.7 % (9.0-44.0); Mean Corpuscular HGB Conc 33.7 % (32.0-36.0); Mean Corpuscular Hemoglobin 31.5 pg (27.0-34.0); Mean Corpuscular Volume 93.3 fL (80.0-100.0); Mean Platelet Volume 10.9 fL (7.0-11.0); Mono # (Auto) 1.1 th/mm3 (0.0-0.9); Mono % (Auto) 14.4 % (0.0-8.0); Neut # (Auto) 5.6 th/mm3 (1.8-7.7); Neut % (Auto) 70.7 % (16.0-70.0); Platelet Count 206 th/mm3 (150-450); Red Blood Count 4.18 mil/mm3 (4.50-5.90); Red Cell Distribution Width 14.6 % (11.6-17.2); White Blood Count 7.9 th/mm3 (4.0-11.0)
[2018-09-29 07:24] LABS: Anion Gap 6 meq/L (5-15); Blood Urea Nitrogen 30 mg/dL (7-18); Calcium 9.1 mg/dL (8.5-10.1); Carbon Dioxide 27.1 meq/L (21.0-32.0); Chloride 111 meq/L (98-107); Glomerular Filtration Rate Greater Than 89 mL/min (>89); Glucose,Random 110 mg/dL (74-106); Potassium 4.3 meq/L (3.5-5.1); Sodium 144 meq/L (136-145)
[2018-09-29] MEDS: Insulin NovoLOG Aspart Correctional Sugar Inj SQ SCH ×4 (09:36→22:43)
[2018-09-29] MEDS: dilTIAZem 30 MG Tablet J-TUBE SCH ×4 (09:36→20:26)
[2018-09-29] MEDS: Famotidine 20 MG Tablet G-TUBE SCH ×2 (09:36→20:24)
[2018-09-29] MEDS: Loratadine 10 MG Tablet G-TUBE SCH (09:36)
--- NOTE | 2018-09-29 11:35 | PQ ---
Physician Query Response Document PATIENT: Nathan Barroso : 1985 ADMIT DATE: 09/23/2018 4:23 AM DISCH DATE: RESPONDING PROVIDER #: MCOSMA QUERY TEXT: CDS Clarification Functional quadriplegia in the setting of bed bound status with contractures and anoxic brain injury requiring total care. Other explanation of clinical findings. Unable to determine (no explanation for clinical findings). The patient's Clinical Indicators include: The medical record reflects the following clinical findings, treatment, and risk factors. * Clinical Indicators: total care patient * Risk Factors: bed bound and contractures, anoxic brain injury * Treatment: assistance with all activities of daily living Please clarify and document your clinical opinion in the progress notes and discharge summary includi ng the definitive and/or presumptive diagnosis (suspected or probable), related to the above clinical findings. Please include clinical findings supporting your diagnosis. Thank you, Hannah Taylor CDS: Hannah Taylor Patient Unit: [id number] Contact Number: [phone] Room: 173 Query created by: Hannah Taylor on 09/24/2018 1:59 PM RESPONSE TEXT: Patient indeed with functional quadriplegia, bed bound status, with contractures and anoxic brain inj ury requiring total care. Patient is on trach with copious secretions * Clinical Indicators: total ca re patient * Risk Factors: bed bound and contractures, anoxic brain injury, quadriplegic * Treatment: Patient needs assistance with all activities of daily living Electronically signed by: Shannon Collado MD 09/29/2018 12:26 AM
--- NOTE | 2018-09-29 13:00 | P.PNIM ---
Subjective Interval history: 33-year-old male with a past medical history significant for anoxic brain injury with chronic trach and PEG [facility] for evaluation of tachycardia, tachypnea and fever. Per EMS report the patient had a temperature of 101 with a pulse of 179. Respiratory rate to the 30s. Blood pressure 179/103. Patient was discharged on 09/13/18 where he was hospitalized for HCAP with sepsis. Tracheal aspirate grew Pseudomonas and urine culture was positive for ESBL. He was treated with 1 week of Zerbaxa per infectious disease recommendations. 09-24 The patient is in bed does not appear in acute distress. No fever overnight. Vital signs fairly stable. 09-25 With some secretions suctioned. Appears in nad No fevers overnight noted 09-26 Spikes of fevers 101, discussed with ID specilaist Dr Rosado will repeat blood cultures today,. Dr Nielsen ID wll eval patient tomorrow. Patient appears in nad. VS otherwise fairly stable With secretions, suctioned 09-27 Afebrile overnight He does not appear in acute distress Discussed with infectious disease specialist will discontinue antibiotics and monitor patient off antibiotics. Fevers are likely not infectious related. 09-28 The patient was noted tachycardic and also with high blood pressure. Is also noted with more secretions. Levsin is changed to scheduled. Discussed with the mother at bedside very supportive and with the nurse. Patient needs close observation will moved to ICU. We will add [place] for pain and 1 dose of Flexeril. Started on Cardizem. EKG reviewed with sinus tachycardia 09-29 MEDICATIONS ADJUSTED BY INFECTIOUS DISEASE MONITOR TODAY REMAINS NONVERBAL DW RN NOTHING NEW HAPPENING MONITOR TODAY IF STABLE BACK TO SNF SOON EEG SHOWS POSSIBLE BRAIN VS ARTIFACT- ANOXIC BRAIN INJURY AM LABS Physical Exam Vital signs: Vital Signs 09/28/18 13:00 09/28/18 14:00 09/28/18 14:03 Temperature Pulse Rate 107 H 96 H Respiratory Rate 28 H Blood Pressure 183/76 H 151/69 H Pulse Oximetry 09/28/18 14:47 09/28/18 14:56 09/28/18 15:00 Temperature Pulse Rate 102 H 129 H 112 H Respiratory Rate 53 H 62 H 45 H Blood Pressure 187/80 H Pulse Oximetry 100 100 100 09/28/18 15:08 09/28/18 15:39 09/28/18 16:00 Temperature 99.7 F H Pulse Rate 107 H 110 H 109 H Respiratory Rate 56 H 38 H 40 H Blood Pressure 153/73 H 213/86 H Pulse Oximetry 99 100 100 09/28/18 16:09 09/28/18 16:39 09/28/18 17:00 Temperature Pulse Rate 105 H 115 H 128 H Respiratory Rate 31 H 41 H 41 H Blood Pressure 187/80 H 195/80 H Pulse Oximetry 100 100 99 09/28/18 17:09 09/28/18 17:38 09/28/18 18:00 Temperature 99.1 F Pulse Rate 124 H 117 H 133 H Respiratory Rate 35 H 48 H 41 H Blood Pressure 162/70 H 173/72 H Pulse Oximetry 99 99 99 09/28/18 18:08 09/28/18 18:38 09/28/18 19:00 Temperature Pulse Rate 114 H 111 H 124 H Respiratory Rate 36 H 31 H 43 H Blood Pressure 170/73 H 164/69 H Pulse Oximetry 99 96 99 09/28/18 19:08 09/28/18 19:34 09/28/18 19:38 Temperature Pulse Rate 115 H 101 H 92 H Respiratory Rate 32 H 24 34 H Blood Pressure 149/63 H 135/60 Pulse Oximetry 99 96 97 09/28/18 20:00 09/28/18 20:08 09/28/18 21:00 Temperature 99.1 F Pulse Rate 91 H 105 H 91 H Respiratory Rate 28 H 36 H 24 Blood Pressure 180/102 H 151/65 H Pulse Oximetry 100 100 100 09/28/18 22:00 09/28/18 23:00 09/29/18 00:00 Temperature 98.9 F Pulse Rate 87 Respiratory Rate 24 24 24 Blood Pressure 124/59 L Pulse Oximetry 100 09/29/18 02:18 09/29/18 04:00 09/29/18 07:00 Temperature 98.9 F 98.1 F Pulse Rate 110 H 72 Respiratory Rate 28 H 38 H Blood Pressure 156/66 H 97/55 L Pulse Oximetry 100 100 97 09/29/18 07:39 09/29/18 07:42 09/29/18 08:00 Temperature Pulse Rate 63 75 Respiratory Rate 33 H Blood Pressure 100/49 L Pulse Oximetry 99 99 09/29/18 09:00 09/29/18 10:00 Temperature Pulse Rate 73 76 Respiratory Rate 29 H 36 H Blood Pressure 120/69 110/59 L Pulse Oximetry 99 96 Intake & Output 09/28/18 09/29/18 09/29/18 18:59 06:59 18:59 Intake Total 800 / 800 1234 / 1234 Output Total 300 / 300 325 / 325 Balance 500 / 500 909 / 909 Weight 68.4 kg Intake: Tube Feeding 800 / 800 1234 / 1234 Output: Urine 300 / 300 325 / 325 Other: # Voids 1 Date of Last Bowel Movement 09/27/18 09/27/18 09/27/18 Narrative: GENERAL: Chronically ill bed bound, contracted 33 yo male, well-nourished well- developed, with more secretions, tachycardic NECK: Trach in place no signs if infection. CARDIOVASCULAR: Tachycardic, no murmur RESPIRATORY: Clear to auscultation bilaterally. GASTROINTESTINAL: Abdomen soft nontender. PEG tube in place. MUSCULOSKELETAL: Extremities without clubbing, cyanosis. NEUROLOGICAL: Opens eyes spontaneously, spasticity. Nonverbal, baseline. - Urinary Catheter Management Straight Cath placed during this visit: yes Reason for continuing: Not indwelling catheter Insertion date: 09/23/18 Insertion time: 04:30 Results - Labs CBC & Chem 7: 09/29/18 06:05 09/29/18 06:05 Laboratory Results - last 24 hr 09/24/18 09/28/18 09/28/18 19:21 18:09 21:39 WBC RBC Hgb Hct MCV MCH MCHC RDW Plt Count MPV Neut % (Auto) Lymph % (Auto) [place] % (Auto) Eos % (Auto) Baso % (Auto) Neut # (Auto) Lymph # (Auto) [place] # (Auto) Eos # (Auto) Baso # (Auto) WBC Differential Differential Comment Sodium Potassium Chloride Carbon Dioxide Anion Gap BUN Creatinine Estimated GFR POC Glucose 154 H 156 H Random Glucose Calcium Levetiracetam 17.6 09/29/18 09/29/18 09/29/18 06:05 06:05 08:42 WBC 7.9 RBC 4.18 L Hgb 13.1 D Hct 39.0 MCV 93.3 MCH 31.5 MCHC 33.7 RDW 14.6 Plt Count 206 MPV 10.9 Neut % (Auto) 70.7 H Lymph % (Auto) 14.7 [place] % (Auto) 14.4 H Eos % (Auto) 0.0 Baso % (Auto) 0.2 Neut # (Auto) 5.6 Lymph # (Auto) 1.2 [place] # (Auto) 1.1 H Eos # (Auto) 0.0 Baso # (Auto) 0.0 WBC Differential . Differential Comment Auto diff final Sodium 144 Potassium 4.3 Chloride 111 H Carbon Dioxide 27.1 Anion Gap 6 BUN 30 H Creatinine 0.89 Estimated GFR Greater than 89 POC Glucose 119 H Random Glucose 110 H Calcium 9.1 Levetiracetam Microbiology 09/26/18 16:30 Blood - Peripheral Aerobic Blood Culture - Preliminary No growth in 3 days 09/26/18 16:30 Blood - Peripheral Anaerobic Blood Culture - Preliminary No growth in 3 days 09/26/18 16:15 Blood - Peripheral Aerobic Blood Culture - Preliminary No growth in 3 days 09/26/18 16:15 Blood - Peripheral Anaerobic Blood Culture - Preliminary No growth in 3 days 09/28/18 10:00 Sputum - Endotracheal Gram Stain - Final 09/23/18 02:50 Blood - Peripheral Aerobic Blood Culture - Final No growth in 5 days 09/23/18 02:50 Blood - Peripheral Anaerobic Blood Culture - Final No growth in 5 days 09/23/18 02:45 Blood - Peripheral Aerobic Blood Culture - Final No growth in 5 days 09/23/18 02:45 Blood - Peripheral Anaerobic Blood Culture - Final No growth in 5 days - Imaging ITS Impressions Venous Doppler Study 09/25/18 00:00 CONCLUSION: Limited study without evidence of venous thrombosis of either lower extremity. Please see above. Chest X-Ray 09/28/18 00:00 CONCLUSION: Cardiomegaly. Stable compared to previous examination dated 09/23/2018. - Procedures NONE Assessment and Plan - Plan Functional quadriplegia in the setting of bed bound status with contractures and anoxic brain injury requiring total care. 1. ? Sepsis Patient febrile to 101, tachycardic and tachypneic. Lactic acid 2.9 on admission History of ESBL UTI and Pseudomonas tracheal aspirate during previous hospitalization, discharged ~[address] MAGISTRATE Completed 1 week Zerbaxa on 09/09 Patient without leukocytosis Chest x-ray, UA negative Blood cultures pending Status post vancomycin, Zosyn and doxycycline in the ED Infectious disease consulted, appreciate recommendations Started on Meropenem IV for MDR pseudomonas and ESBL Discussed with Dr Nielsen infectious disease specialist and will explore the possibilities the patient might have fevers will check EEG for possible subclinical seizures, will check Keppra level this may cause fevers. Will check for DVT so far no DVT on the lower extremities will add Doppler for upper extremities to check for DVT however may not be possible as patient with contractures Noted with spikes of fevers however fevers are most likely not infectious related. Will discontinue the antibiotics and monitor off antibiotics. Continue to monitor off antibiotics discussed with infectious disease specialist. Patient with normal white blood cells and with elevated TEMPS-ID feels might be medications allergy Doppler ultrasound shows no DVT EEG reviewed anoxic brain Keppra level is 17.6 Chest x-ray reviewed no change EKG reviewed sinus tachycardia Started on Cardizem as patient noted with hypertension and with sinus tachycardia Monitor vital signs 2. Copious oral secretions Continue home Jo Trach care 3. Seizure disorder Continue Keppra Check Keppra level EEG reviewed 4. Type 2 diabetes mellitus Sliding scale insulin Monitor blood glucose 5. History of DVT Continue Eliquis FEN Continue tube feeds with Jevity 1.5 at 85 cc/hour Electrolytes: Monitor and replete as needed NS at 100 cc/hour Eliquis Discussed with the nurse. DC plan: pending improvement. Awaiting for results of Doppler US to r/o DVT, also EEG, keppra level r/o subclinical seizures. If remains afebrile might discontinue abx as well. However the patient noted with spikes of fevers on 09/25/18 at night at 8 PM and also in the morning of 09/26/18. Repeat blood cultures. Discussed with infectious disease specialist, will discontinue antibiotics. Fevers are most likely not infectious in nature. Will monitor off antibiotics. HOPE TO DC TO SNF TOMORROW SINCE NO DVTS, EEG UNCHANGED- NO SEIZURE ACTIVITY IF AFEBRILE DC TO SNF TOMORROW 09-30 Code Status: FULL CODE Discussed Condition With: densitometer reader Planning: HOPEFULLY TO SNF TOMORROW
[2018-09-30 08:34] LABS: Baso % (Auto) 0.5 % (0.0-2.0); Eos # (Auto) 0.1 th/mm3 (0.0-0.4); Hematocrit 40.2 % (39.0-51.0); Hemoglobin 13.2 gm/dL (13.0-17.0); Lymph # (Auto) 1.5 th/mm3 (1.0-4.8); Lymph % (Auto) 28.1 % (9.0-44.0); Mean Corpuscular HGB Conc 32.7 % (32.0-36.0); Mean Corpuscular Hemoglobin 31.3 pg (27.0-34.0); Mean Corpuscular Volume 95.8 fL (80.0-100.0); Mean Platelet Volume 11.2 fL (7.0-11.0); Mono # (Auto) 0.6 th/mm3 (0.0-0.9); Mono % (Auto) 10.4 % (0.0-8.0); Neut # (Auto) 3.3 th/mm3 (1.8-7.7); Platelet Count 178 th/mm3 (150-450); Red Cell Distribution Width 15.4 % (11.6-17.2); White Blood Count 5.5 th/mm3 (4.0-11.0)
[2018-09-30] MEDS: Loratadine 10 MG Tablet G-TUBE SCH (08:51)
[2018-09-30] MEDS: dilTIAZem 30 MG Tablet J-TUBE SCH ×2 (08:51→12:11)
[2018-09-30] MEDS: Famotidine 20 MG Tablet G-TUBE SCH (08:51)
[2018-09-30] MEDS: Insulin NovoLOG Aspart Correctional Sugar Inj SQ SCH ×2 (08:52→12:11)
[2018-09-30 09:00] LABS: Alanine Aminotransferase 69 U/L (12-78); Albumin 3.5 g/dL (3.4-5.0); Anion Gap 7 meq/L (5-15); Aspartate Aminotransferase 36 U/L (15-37); Blood Urea Nitrogen 23 mg/dL (7-18); Calcium 8.7 mg/dL (8.5-10.1); Carbon Dioxide 28.6 meq/L (21.0-32.0); Chloride 109 meq/L (98-107); Glomerular Filtration Rate Greater Than 89 mL/min (>89); Glucose,Random 120 mg/dL (74-106); Magnesium 2.6 mg/dL (1.5-2.5); Phosphorus 3.7 mg/dL (2.5-4.9); Potassium 4.2 meq/L (3.5-5.1); Sodium 145 meq/L (136-145)
[2018-09-30 09:09] LABS: Alkaline Phosphatase 82 U/L (45-117); Free T4 (Free Thyroxine) 0.99 ng/dL (0.76-1.46); Thyroid Stimulating Hormone 0.971 uIU/mL (0.358-3.740); Total Protein 7.9 g/dL (6.4-8.2)
--- NOTE | 2018-09-30 11:59 | P.PNIM ---
Subjective Interval history: 33-year-old male with a past medical history significant for anoxic brain injury with chronic trach and PEG presents to the emergency department from the skilled nursing for evaluation of tachycardia, tachypnea and fever. Per EMS report the patient had a temperature of 101 with a pulse of 179. Respiratory rate to the 30s. Blood pressure 179/103. Patient was discharged on 09/13/18 where he was hospitalized for HCAP with sepsis. Tracheal aspirate grew Pseudomonas and urine culture was positive for ESBL. He was treated with 1 week of Zerbaxa per infectious disease recommendations. 09-24 The patient is in bed does not appear in acute distress. No fever overnight. Vital signs fairly stable. 09-25 With some secretions suctioned. Appears in nad No fevers overnight noted 09-26 Spikes of fevers 101, discussed with ID specilaist Dr Rosado will repeat blood cultures today,. Dr Nielsen ID wll eval patient tomorrow. Patient appears in nad. VS otherwise fairly stable With secretions, suctioned 09-27 Afebrile overnight He does not appear in acute distress Discussed with infectious disease specialist will discontinue antibiotics and monitor patient off antibiotics. Fevers are likely not infectious related. 09-28 The patient was noted tachycardic and also with high blood pressure. Is also noted with more secretions. Levsin is changed to scheduled. Discussed with the mother at bedside very supportive and with the nurse. Patient needs close observation will moved to ICU. We will add [place] for pain and 1 dose of Flexeril. Started on Cardizem. EKG reviewed with sinus tachycardia 09-29 MEDICATIONS ADJUSTED BY INFECTIOUS DISEASE MONITOR TODAY REMAINS NONVERBAL RADHAMES CHEN NOTHING NEW HAPPENING MONITOR TODAY IF STABLE BACK TO SNF SOON EEG SHOWS POSSIBLE BRAIN VS ARTIFACT- ANOXIC BRAIN INJURY AM LABS 09-30 REMAINS AFEBRILE DC BACK TO SNF TODAY SEE MED REC RADHAMES RN [id number] FILLED OUT BACK TO SNF TODAY Physical Exam Vital signs: Vital Signs 09/29/18 12:13 09/29/18 13:13 09/29/18 14:00 Temperature 99.1 F Pulse Rate 74 94 H 65 Respiratory Rate 26 H 30 H 43 H Blood Pressure 120/56 L 164/68 H 122/56 L Pulse Oximetry 100 96 99 09/29/18 15:00 09/29/18 16:13 09/29/18 17:00 Temperature 99.3 F 99.1 F Pulse Rate 88 106 H 58 L Respiratory Rate 59 H 34 H 27 H Blood Pressure 111/57 L 115/55 L 103/51 L Pulse Oximetry 97 100 100 09/29/18 19:00 09/29/18 19:25 09/29/18 20:00 Temperature 98.9 F Pulse Rate 71 58 L Respiratory Rate 32 H 30 H Blood Pressure 111/56 L 110/53 L Pulse Oximetry 100 98 100 09/29/18 21:00 09/29/18 22:00 09/29/18 23:00 Temperature Pulse Rate 79 51 L 68 Respiratory Rate 25 H 22 35 H Blood Pressure 115/53 L 109/55 L 135/62 Pulse Oximetry 100 100 100 09/30/18 00:00 09/30/18 00:58 09/30/18 01:00 Temperature Pulse Rate 46 L 60 Respiratory Rate 30 H 15 Blood Pressure 112/51 L Pulse Oximetry 99 100 100 09/30/18 02:00 09/30/18 03:00 09/30/18 04:00 Temperature 99.1 F Pulse Rate 61 49 L 51 L Respiratory Rate 17 13 18 Blood Pressure 119/57 L 102/47 L 102/47 L Pulse Oximetry 100 100 100 09/30/18 05:00 09/30/18 06:00 09/30/18 07:59 Temperature Pulse Rate 53 L 63 Respiratory Rate 0 L 23 Blood Pressure 120/58 L 160/71 H Pulse Oximetry 98 100 98 09/30/18 08:00 Temperature Pulse Rate 69 Respiratory Rate Blood Pressure Pulse Oximetry Intake & Output 09/29/18 09/30/18 09/30/18 18:59 06:59 18:59 Intake Total 1712 / 1712 Output Total 600 / 600 Balance 1112 / 1112 Weight 69.1 kg Intake: Tube Feeding 1712 / 1712 Output: Urine 600 / 600 Other: # Voids 3 # Incontinent Voids 3 3 Date of Last Bowel Movement 09/27/18 09/30/18 09/27/18 # Incontinent Bowel Movements 2 Narrative: GENERAL: Chronically ill bed bound, contracted 33 yo male, well-nourished well- developed, with more secretions, tachycardic NECK: Trach in place no signs if infection. CARDIOVASCULAR: Tachycardic, no murmur RESPIRATORY: Clear to auscultation bilaterally. GASTROINTESTINAL: Abdomen soft nontender. PEG tube in place. MUSCULOSKELETAL: Extremities without clubbing, cyanosis. NEUROLOGICAL: Opens eyes spontaneously, spasticity. Nonverbal, baseline. - Urinary Catheter Management Straight Cath placed during this visit: yes Reason for continuing: Not indwelling catheter Insertion date: 09/23/18 Insertion time: 04:30 Results - Labs CBC & Chem 7: 09/30/18 07:20 09/30/18 07:20 Laboratory Results - last 24 hr 09/29/18 09/29/18 09/29/18 13:37 16:18 20:21 WBC RBC Hgb Hct MCV MCH MCHC RDW Plt Count MPV Neut % (Auto) Lymph % (Auto) [place] % (Auto) Eos % (Auto) Baso % (Auto) Neut # (Auto) Lymph # (Auto) [place] # (Auto) Eos # (Auto) Baso # (Auto) WBC Differential Differential Comment Sodium Potassium Chloride Carbon Dioxide Anion Gap BUN Creatinine Estimated GFR POC Glucose 112 H 120 H 110 Random Glucose Calcium Phosphorus Magnesium Total Bilirubin AST ALT Alkaline Phosphatase Total Protein Albumin TSH Free T4 09/30/18 09/30/18 09/30/18 07:20 07:20 08:10 WBC 5.5 RBC 4.20 L Hgb 13.2 Hct 40.2 MCV 95.8 MCH 31.3 MCHC 32.7 RDW 15.4 Plt Count 178 MPV 11.2 H Neut % (Auto) 60.0 Lymph % (Auto) 28.1 [place] % (Auto) 10.4 H Eos % (Auto) 1.0 Baso % (Auto) 0.5 Neut # (Auto) 3.3 Lymph # (Auto) 1.5 [place] # (Auto) 0.6 Eos # (Auto) 0.1 Baso # (Auto) 0.0 WBC Differential . Differential Comment Auto diff final Sodium 145 Potassium 4.2 Chloride 109 H Carbon Dioxide 28.6 Anion Gap 7 BUN 23 H Creatinine 0.77 Estimated GFR Greater than 89 POC Glucose 97 Random Glucose 120 H Calcium 8.7 Phosphorus 3.7 Magnesium 2.6 H Total Bilirubin 0.2 AST 36 ALT 69 Alkaline Phosphatase 82 Total Protein 7.9 Albumin 3.5 TSH 0.971 Free T4 0.99 Microbiology 09/26/18 16:30 Blood - Peripheral Aerobic Blood Culture - Preliminary No growth in 4 days 09/26/18 16:30 Blood - Peripheral Anaerobic Blood Culture - Preliminary No growth in 4 days 09/26/18 16:15 Blood - Peripheral Aerobic Blood Culture - Preliminary No growth in 4 days 09/26/18 16:15 Blood - Peripheral Anaerobic Blood Culture - Preliminary No growth in 4 days 09/28/18 10:00 Sputum - Endotracheal Gram Stain - Final 09/28/18 10:00 Sputum - Endotracheal Sputum Culture - Preliminary - Imaging ITS Impressions Venous Doppler Study 09/25/18 00:00 CONCLUSION: Limited study without evidence of venous thrombosis of either lower extremity. Please see above. Chest X-Ray 09/28/18 00:00 CONCLUSION: Cardiomegaly. Stable compared to previous examination dated 09/23/2018. - Procedures NONE Assessment and Plan - Plan Functional quadriplegia in the setting of bed bound status with contractures and anoxic brain injury requiring total care. 1. ? Sepsis Patient febrile to 101, tachycardic and tachypneic. Lactic acid 2.9 on admission History of ESBL UTI and Pseudomonas tracheal aspirate during previous hospitalization, discharged ~10 days ago [employer] Completed 1 week Zerbaxa on 09/09 Patient without leukocytosis Chest x-ray, UA negative Blood cultures pending Status post vancomycin, Zosyn and doxycycline in the ED Infectious disease consulted, appreciate recommendations Started on Meropenem IV for MDR pseudomonas and ESBL Discussed with Dr Nielsen infectious disease specialist and will explore the possibilities the patient might have fevers will check EEG for possible subclinical seizures, will check Keppra level this may cause fevers. Will check for DVT so far no DVT on the lower extremities will add Doppler for upper extremities to check for DVT however may not be possible as patient with contractures Noted with spikes of fevers however fevers are most likely not infectious related. Will discontinue the antibiotics and monitor off antibiotics. Continue to monitor off antibiotics discussed with infectious disease specialist. Patient with normal white blood cells and with elevated TEMPS-ID feels might be medications allergy Doppler ultrasound shows no DVT EEG reviewed anoxic brain Keppra level is 17.6 Chest x-ray reviewed no change EKG reviewed sinus tachycardia Started on Cardizem as patient noted with hypertension and with sinus tachycardia Monitor vital signs 2. Copious oral secretions Continue home Jo Trach care 3. Seizure disorder Continue Keppra Check Keppra level EEG reviewed 4. Type 2 diabetes mellitus Sliding scale insulin Monitor blood glucose 5. History of DVT Continue Eliquis FEN Continue tube feeds with Jevity 1.5 at 85 cc/hour Electrolytes: Monitor and replete as needed NS at 100 cc/hour Eliquis Discussed with the nurse. DC plan: pending improvement. Awaiting for results of Doppler US to r/o DVT, also EEG, keppra level r/o subclinical seizures. If remains afebrile might discontinue abx as well. However the patient noted with spikes of fevers on 09/25/18 at night at 8 PM and also in the morning of 09/26/18. Repeat blood cultures. Discussed with infectious disease specialist, will discontinue antibiotics. Fevers are most likely not infectious in nature. Will monitor off antibiotics. HOPE TO DC TO SNF TOMORROW SINCE NO DVTS, EEG UNCHANGED- NO SEIZURE ACTIVITY IF AFEBRILE DC TO SNF TOMORROW 09-30 DC TO SNF TODAY Code Status: FULL CODE Discussed Condition With: examination grader Planning: DC TO SNF TODAY
--- NOTE | 2018-09-30 12:15 | P.DS ---
Date of admission: 09/23/18 04:23 Primary care physician: Britton Samuels MD Attending physician on discharge: Musa Rosales Anticipated date of discharge: 09/30/18 Brief History from admission: 33-year-old male with a past medical history significant for anoxic brain injury with chronic trach and PEG presents [facility] department from [facility] for evaluation of tachycardia, tachypnea and fever. Per EMS report the patient had a temperature of 101 with a pulse of 179. Respiratory rate to the 30s. Blood pressure 179/103. Patient was discharged on 09/13/18 where he was hospitalized for HCAP with sepsis. Tracheal aspirate grew Pseudomonas and urine culture was positive for ESBL. He was treated with 1 week of Zerbaxa per infectious disease recommendations. Patient update on day of discharge: 33-year-old male with a past medical history significant for anoxic brain injury with chronic trach and PEG presents to the emergency department from the [facility] for evaluation of tachycardia, tachypnea and fever. Per EMS report the patient had a temperature of 101 with a pulse of 179. Respiratory rate to the 30s. Blood pressure 179/103. Patient was discharged on 09/13/18 where he was hospitalized for HCAP with sepsis. Tracheal aspirate grew Pseudomonas and urine culture was positive for ESBL. He was treated with 1 week of Zerbaxa per infectious disease recommendations. 11 The patient is in bed does not appear in acute distress. No fever overnight. Vital signs fairly stable. 11-24 With some secretions suctioned. Appears in nad No fevers overnight noted 11- Spikes of fevers 101, discussed with ID specilaist Dr Rosado will repeat blood cultures today,. Dr Nielsen ID wll eval patient tomorrow. Patient appears in nad. VS otherwise fairly stable With secretions, suctioned 11-26 Afebrile overnight He does not appear in acute distress Discussed with infectious disease specialist will discontinue antibiotics and monitor patient off antibiotics. Fevers are likely not infectious related. 09-28 The patient was noted tachycardic and also with high blood pressure. Is also noted with more secretions. Levsin is changed to scheduled. Discussed with the mother at bedside very supportive and with the nurse. Patient needs close observation will moved to ICU. We will add [place] for pain and 1 dose of Flexeril. Started on Cardizem. EKG reviewed with sinus tachycardia 11-28 MEDICATIONS ADJUSTED BY INFECTIOUS DISEASE MONITOR TODAY REMAINS NONVERBAL RADHAMES CHEN NOTHING NEW HAPPENING MONITOR TODAY IF STABLE BACK TO SNF SOON EEG SHOWS POSSIBLE BRAIN VS ARTIFACT- ANOXIC BRAIN INJURY AM LABS 09-30 REMAINS AFEBRILE DC BACK TO SNF TODAY SEE MED REC RADHAMES RN [id number] FILLED OUT BACK TO SNF TODAY DS: Diagnosis - Discharge Diagnosis (1) Sepsis Status: Acute (2) Anoxic encephalopathy Status: Chronic (3) Anoxic brain damage Status: Chronic (4) DVT (deep venous thrombosis) Status: Chronic (5) Diabetes mellitus Status: Chronic (6) Dyslipidemia Status: Chronic (7) GERD (gastroesophageal reflux disease) Status: Chronic (8) HTN (hypertension) Status: Chronic (9) PEG (percutaneous endoscopic gastrostomy) status Status: Chronic (10) Seizure Status: Acute (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 Per EMS report the patient had a temperature of 101 with a pulse of 179. Respiratory rate to the 30s. Blood pressure 179/103. Patient was discharged on 09/13/18 where he was hospitalized for HCAP with sepsis. Tracheal aspirate grew Pseudomonas and urine culture was positive for ESBL. He was treated with 1 week of Zerbaxa per infectious disease recommendations. 11 The patient is in bed does not appear in acute distress. No fever overnight. Vital signs fairly stable. 11-24 With some secretions suctioned. Appears in nad No fevers overnight noted 11- Spikes of fevers 101, discussed with ID specilaist Dr Rosado will repeat blood cultures today,. Dr Nielsen ID wll eval patient tomorrow. Patient appears in nad. VS otherwise fairly stable With secretions, suctioned 11- Afebrile overnight He does not appear in acute distress Discussed with infectious disease specialist will discontinue antibiotics and monitor patient off antibiotics. Fevers are likely not infectious related. 11-27 The patient was noted tachycardic and also with high blood pressure. Is also noted with more secretions. Levsin is changed to scheduled. Discussed with the mother at bedside very supportive and with the nurse. Patient needs close observation will moved to ICU. We will add [place] for pain and 1 dose of Flexeril. Started on Cardizem. EKG reviewed with sinus tachycardia 09-29 MEDICATIONS ADJUSTED BY INFECTIOUS DISEASE MONITOR TODAY REMAINS NONVERBAL RADHAMES RN NOTHING NEW HAPPENING MONITOR TODAY IF STABLE BACK TO SNF SOON EEG SHOWS POSSIBLE BRAIN VS ARTIFACT- ANOXIC BRAIN INJURY AM LABS 09-30 REMAINS AFEBRILE DC BACK TO SNF TODAY SEE MED REC RADHAMES RN [id number] FILLED OUT BACK TO SNF TODAY - Time Spent with Patient Total time spent providing and/or coordinating discharge services: Greater than 30 minutes - Quality: VTE Deep Vein Thrombosis/Pulmonary Embolism Present on Admission: No Exam Vital signs: Vital Signs 09/29/18 12:13 09/29/18 13:13 09/29/18 14:00 Temperature 99.1 F Pulse Rate 74 94 H 65 Respiratory Rate 26 H 30 H 43 H Blood Pressure 120/56 L 164/68 H 122/56 L Pulse Oximetry 100 96 99 09/29/18 15:00 09/29/18 16:13 09/29/18 17:00 Temperature 99.3 F 99.1 F Pulse Rate 88 106 H 58 L Respiratory Rate 59 H 34 H 27 H Blood Pressure 111/57 L 115/55 L 103/51 L Pulse Oximetry 97 100 100 09/29/18 19:00 09/29/18 19:25 09/29/18 20:00 Temperature 98.9 F Pulse Rate 71 58 L Respiratory Rate 32 H 30 H Blood Pressure 111/56 L 110/53 L Pulse Oximetry 100 98 100 09/29/18 21:00 09/29/18 22:00 09/29/18 23:00 Temperature Pulse Rate 79 51 L 68 Respiratory Rate 25 H 22 35 H Blood Pressure 115/53 L 109/55 L 135/62 Pulse Oximetry 100 100 100 09/30/18 00:00 09/30/18 00:58 09/30/18 01:00 Temperature Pulse Rate 46 L 60 Respiratory Rate 30 H 15 Blood Pressure 112/51 L Pulse Oximetry 99 100 100 09/30/18 02:00 09/30/18 03:00 09/30/18 04:00 Temperature 99.1 F Pulse Rate 61 49 L 51 L Respiratory Rate 17 13 18 Blood Pressure 119/57 L 102/47 L 102/47 L Pulse Oximetry 100 100 100 09/30/18 05:00 09/30/18 06:00 09/30/18 07:59 Temperature Pulse Rate 53 L 63 Respiratory Rate 0 L 23 Blood Pressure 120/58 L 160/71 H Pulse Oximetry 98 100 98 09/30/18 08:00 Temperature Pulse Rate 69 Respiratory Rate Blood Pressure Pulse Oximetry Intake & Output 09/29/18 09/30/18 09/30/18 18:59 06:59 18:59 Intake Total 171 / 1712 Output Total 600 / 600 Balance 1112 / 1112 Weight 69.1 kg Intake: Tube Feeding 1711 Output: Urine 600 / 600 Other: # Voids 3 # Incontinent Voids 3 3 Date of Last Bowel Movement 09/27/18 09/30/18 09/27/18 # Incontinent Bowel Movements 2 Narrative: GENERAL: Chronically ill bed bound, contracted 33 yo male, well-nourished well- developed, with more secretions, tachycardic NECK: Trach in place no signs if infection. CARDIOVASCULAR: Tachycardic, no murmur RESPIRATORY: Clear to auscultation bilaterally. GASTROINTESTINAL: Abdomen soft nontender. PEG tube in place. MUSCULOSKELETAL: Extremities without clubbing, cyanosis. NEUROLOGICAL: Opens eyes spontaneously, spasticity. Nonverbal, baseline. Results Procedures completed during hospitalization: NONE Completed studies during hospitalization: Laboratory Results WBC 5.5 th/mm3 (4.0-11.0) 09/30/18 07:20 RBC 4.20 mil/mm3 (4.50-5.90) L 09/30/18 07:20 Hgb 13.2 gm/dL (13.0-17.0) 09/30/18 07:20 Hct 40.2 % (39.0-51.0) 09/30/18 07:20 MCV 95.8 fL (80.0-100.0) 09/30/18 07:20 MCH 31.3 pg (27.0-34.0) 09/30/18 07:20 MCHC 32.7 % (32.0-36.0) 09/30/18 07:20 RDW 15.4 % (11.6-17.2) 09/30/18 07:20 Plt Count 178 th/mm3 (150-450) 09/30/18 07:20 MPV 11.2 fL (7.0-11.0) H 09/30/18 07:20 Neut % (Auto) 60.0 % (16.0-70.0) 09/30/18 07:20 Lymph % (Auto) 28.1 % (9.0-44.0) 09/30/18 07:20 [place] % (Auto) 10.4 % (0.0-8.0) H 09/30/18 07:20 Eos % (Auto) 1.0 % (0.0-4.0) 09/30/18 07:20 Baso % (Auto) 0.5 % (0.0-2.0) 09/30/18 07:20 Neut # (Auto) 3.3 th/mm3 (1.8-7.7) 09/30/18 07:20 Lymph # (Auto) 1.5 th/mm3 (1.0-4.8) 09/30/18 07:20 [place] # (Auto) 0.6 th/mm3 (0.0-0.9) 09/30/18 07:20 Eos # (Auto) 0.1 th/mm3 (0.0-0.4) 09/30/18 07:20 Baso # (Auto) 0.0 th/mm3 (0.0-0.2) 09/30/18 07:20 WBC Differential . 09/30/18 07:20 Differential Comment Auto diff final 09/30/18 07:20 Sodium 145 meq/L (136-145) 09/30/18 07:20 Potassium 4.2 meq/L (3.5-5.1) 09/30/18 07:20 Chloride 109 meq/L (98-107) H 09/30/18 07:20 Carbon Dioxide 28.6 meq/L (21.0-32.0) 09/30/18 07:20 Anion Gap 7 meq/L (5-15) 09/30/18 07:20 BUN 23 mg/dL (7-18) H 09/30/18 07:20 Creatinine 0.77 mg/dL (0.60-1.30) 09/30/18 07:20 Estimated GFR Greater than 89 mL/min (>89) 09/30/18 07:20 POC Glucose 97 mg/dl (68-110) 09/30/18 08:10 Random Glucose 120 mg/dL (74-106) H 09/30/18 07:20 Lactic Acid 1.1 mmol/L (0.4-2.0) 09/23/18 05:08 Calcium 8.7 mg/dL (8.5-10.1) 09/30/18 07:20 Phosphorus 3.7 mg/dL (2.5-4.9) 09/30/18 07:20 Magnesium 2.6 mg/dL (1.5-2.5) H 09/30/18 07:20 Total Bilirubin 0.2 mg/dL (0.2-1.0) 09/30/18 07:20 AST 36 U/L (15-37) 09/30/18 07:20 ALT 69 U/L (12-78) 09/30/18 07:20 Alkaline Phosphatase 82 U/L (45-117) 09/30/18 07:20 Total Protein 7.9 g/dL (6.4-8.2) 09/30/18 07:20 Albumin 3.5 g/dL (3.4-5.0) 09/30/18 07:20 TSH 0.971 uIU/mL (0.358-3.740) 09/30/18 07:20 Free T4 0.99 ng/dL (0.76-1.46) 09/30/18 07:20 Urine Color Yellow (Yellw/Straw) 09/23/18 03:35 Urine Clarity Hazy (Clear) H 09/23/18 03:35 Urine pH 6.0 (5.0-8.5) 09/23/18 03:35 Ur Specific [place] 1.033 (1.002-1.035) 09/23/18 03:35 Urine Protein 30 mg/dL (Neg-Trace) H 09/23/18 03:35 Urine Glucose (UA) Negative mg/dL (Negative) 09/23/18 03:35 Urine Ketones Negative mg/dL (Negative) 09/23/18 03:35 Urine Occult Blood Negative (Negative) 09/23/18 03:35 Urine Nitrate Negative (Negative) 09/23/18 03:35 Urine Bilirubin Negative (Negative) 09/23/18 03:35 Urine Urobilinogen Less than 2 mg/dL (Less than 2) 09/23/18 03:35 Ur Leukocyte Esterase Negative (Negative) 09/23/18 03:35 Urine RBC Less than 1 /hpf (0-3) 09/23/18 03:35 Urine WBC 1 /hpf (0-5) 09/23/18 03:35 Hyaline Casts 17 /lpf (0-3) 09/23/18 03:35 Urine Mucus Moderate /lpf (Occasional) H 09/23/18 03:35 Micro UA Comment Cath-culture not ind 09/23/18 03:35 Ur Microscopic Review Not Reportable 09/23/18 03:35 Urine Culture Comments Cath-cult not ind 09/23/18 03:35 Levetiracetam 17.6 mcg/mL (12.0 - 46.0) 09/24/18 19:21 Impressions Venous Doppler Study 09/25/18 00:00 CONCLUSION: Limited study without evidence of venous thrombosis of either lower extremity. Please see above. Chest X-Ray 09/28/18 00:00 CONCLUSION: Cardiomegaly. Stable compared to previous examination dated 09/23/2018. Labs on day of discharge: Labs from last 24 hours 09/30/18 09/30/18 09/30/18 08:10 07:20 07:20 WBC RBC Hgb Hct MCV MCH MCHC RDW Plt Count MPV Neut % (Auto) Lymph % (Auto) [place] % (Auto) Eos % (Auto) Baso % (Auto) Neut # (Auto) Lymph # (Auto) [place] # (Auto) Eos # (Auto) Baso # (Auto) WBC Differential Differential Comment Sodium 145 Potassium 4.2 Chloride 109 H Carbon Dioxide 28.6 Anion Gap 7 BUN 23 H Creatinine 0.77 Estimated GFR Greater than 89 POC Glucose 97 Random Glucose 120 H Hemoglobin A1c Pending Calcium 8.7 Phosphorus 3.7 Magnesium 2.6 H Total Bilirubin 0.2 AST 36 ALT 69 Alkaline Phosphatase 82 Total Protein 7.9 Albumin 3.5 TSH 0.971 Free T4 0.99 09/30/18 09/29/18 09/29/18 07:20 20:21 16:18 WBC 5.5 RBC 4.20 L Hgb 13.2 Hct 40.2 MCV 95.8 MCH 31.3 MCHC 32.7 RDW 15.4 Plt Count 178 MPV 11.2 H Neut % (Auto) 60.0 Lymph % (Auto) 28.1 [place] % (Auto) 10.4 H Eos % (Auto) 1.0 Baso % (Auto) 0.5 Neut # (Auto) 3.3 Lymph # (Auto) 1.5 [place] # (Auto) 0.6 Eos # (Auto) 0.1 Baso # (Auto) 0.0 WBC Differential . Differential Comment Auto diff final Sodium Potassium Chloride Carbon Dioxide Anion Gap BUN Creatinine Estimated GFR POC Glucose 110 120 H Random Glucose Hemoglobin A1c Calcium Phosphorus Magnesium Total Bilirubin AST ALT Alkaline Phosphatase Total Protein Albumin TSH Free T4 09/29/18 13:37 WBC RBC Hgb Hct MCV MCH MCHC RDW Plt Count MPV Neut % (Auto) Lymph % (Auto) [place] % (Auto) Eos % (Auto) Baso % (Auto) Neut # (Auto) Lymph # (Auto) [place] # (Auto) Eos # (Auto) Baso # (Auto) WBC Differential Differential Comment Sodium Potassium Chloride Carbon Dioxide Anion Gap BUN Creatinine Estimated GFR POC Glucose 112 H Random Glucose Hemoglobin A1c Calcium Phosphorus Magnesium Total Bilirubin AST ALT Alkaline Phosphatase Total Protein Albumin TSH Free T4 Preliminary micro results at discharge 09/26/18 16:30 Aerobic Blood Culture - Preliminary Blood - Peripheral No growth in 4 days Anaerobic Blood Culture - Preliminary No growth in 4 days 09/26/18 16:15 Aerobic Blood Culture - Preliminary Blood - Peripheral No growth in 4 days Anaerobic Blood Culture - Preliminary No growth in 4 days 09/28/18 10:00 Sputum Culture - Preliminary Sputum - Endotracheal - Impressions ITS Impressions Venous Doppler Study 09/25/18 00:00 CONCLUSION: Limited study without evidence of venous thrombosis of either lower extremity. Please see above. Chest X-Ray 09/28/18 00:00 CONCLUSION: Cardiomegaly. Stable compared to previous examination dated 09/23/2018. Discharge Plan - Discharge Disposition Patient Disposition: Discharge to SNF - Discharge Condition Condition: Fair - Discharge Order Discharge Orders: Discharge Order (Routine); Ordered 09/30/18 Ordered By: Musa Rosales - Discharge Details Anticipated Discharge Date: 09/30/18 Discharge Comment: dc to snf today - Physicians Team Primary Care Provider: Britton Samuels Attending Provider: Musa Rosales Other Providers: Rolanda Nielsen MD ; Greg Ness MD ; & Rehab,[facility]
[2018-09-30 12:23] VITALS: BP 126/58; RESP 37; TEMP 98.9; O2SAT 99
[2018-09-30] MEDS: Sod Chloride 0.9% Inj 1,000 ML IV.CONT SCH (12:56)
[2018-09-30] MEDS: Acetaminophen 325 MG Tablet PO PRN (14:25)
[2018-09-30 16:31] VITALS: PULSE 58
[2018-09-30 21:18] LABS: Hemoglobin A1c 5.2 % (4.3-6.0)
== END 2018-09-30 16:15 ==
LOC: NEPE 02:32 → NEDA 04:23 → NEDH 07:19 → N07 12:29 → N03 09-28 10:07
PROVIDERS: ADMIT Hospitalist; ATTEND Hospitalist